=== PATIENT | male | born 1950 | race Caucasian/White ===

== ENCOUNTER 2017-07-11 15:00 | Outpatient (RCR) | payer MEDICARE, SELFPAY ==
[2017-06-11 00:25] VITALS: BP 116/60; PULSE 61; RESP 18; TEMP 36; BMI 32.7
[2017-06-20 15:16] VITALS: BP 142/79; PULSE 55; RESP 18; TEMP 36.6; BMI 32.7
--- NOTE | 2017-06-20 22:14 | PN.PCM_ITS ---
(1) Ulcer of right foot with fat layer exposed Status: Chronic Current Visit: Yes Code(s): L97.512 - Non-pressure chronic ulcer of other part of right foot with fat layer exposed (2) Chronic ulcer of left foot with fat layer exposed Status: Chronic Current Visit: Yes Code(s): L97.522 - Non-pressure chronic ulcer of other part of left foot with fat layer exposed (3) Lower extremity edema Status: Chronic Current Visit: Yes Code(s): R60.0 - Localized edema (4) Malnutrition Status: Chronic Current Visit: Yes Code(s): E46 - Unspecified protein- calorie malnutrition (5) Type 2 diabetes mellitus with diabetic polyneuropathy Status: Chronic Current Visit: Yes Code(s): E11.42 - Type 2 diabetes mellitus with diabetic polyneuropathy (6) Non compliance with medical treatment Status: Chronic Current Visit: Yes Code(s): Z91.19 - Patient's noncompliance with other medical treatment and regimen (7) Peripheral vascular disease Status: Chronic Current Visit: Yes Code(s): I73.9 - Peripheral vascular disease, unspecified Type of Wound Date of Service: 06/21/17 Chief Complaint: right foot wound. Left foot wound. right toe wound History of Wound: This 67-year-old male who was seen today for right and left foot ulceration that is chronic in nature. He denies fever, chill, nausea, vomiting, loss of appetite. He also had previous vascular surgery intervention with Dr. Redding on February 14, 2017 including angiogram of the left SFA with a stent to the proximal popliteal. He was able to reschedule his next follow-up for June 29, 2017. Additional previous surgical h/o: 03/01/16 wide spread debridement left foot with incision and drainage and fibular sesamoid excision. 03/15/16 delayed primary closure left foot Progress of Wound: Stable right. Improving left - Physical Exam Vital Signs Temp Pulse Resp BP 97.8 F 55 L 18 142/79 H 06/20/17 15:16 06/20/17 15:16 06/20/17 15:16 06/20/17 15:16 General: Alert, Oriented x3, Cooperative Extremities: No cyanosis, Capillary Refill Less than 3 Seconds, No Calf Tenderness - Negative Rashad and Tenorio sign bilateral, Diminished Peripheral Pulses, Edema - Minimal bilateral lower extremity Skin: Ulcer/ Wound - No purulence, no erythema, no streaking, no odor, no necrosis bilateral, - - The skin is hairless and atrophic bilateral Wound Measurements and Assessment - Nurse 1 - General Ulcer Measurement Start: 06/20/17 15:16 Freq: Status: Active Protocol: Activity Type Activity Date Activity User E-Sign Co-Sign Detail Recorded Client Recorded Date Recorded By Document 06/20/17 15:16 RB [id number] 06/20/17 15:25 RB 06/20/17 15:16 Wound Center Nurse 1 [Ulcer Assessment Protocol: .WD.LOC] 16-left medial transmet ulcer -Combined with other wound No -Current Size (cm) - Length 1.5 -Current Size (cm) - Width 0.1 -Current Size (cm) - Depth 0.3 -Total Square Cm 0.15 -Epithelialization Small 1-33% -Tunneling No -Undermining/Tunneling No -Circular Undermining No -Classification - Calvin Grading ( Grade 3 Diabetic Ulcer) -Exudate Amt Small (1-33%) -Exudate Type Serosanguineous -Wound Margin Distinct, Outline Attached -Granulation Amt Small (1-33%) -Granulation Quality [place] -Slough/Fibrin Yes -Necrosis Amt Medium (34-66%) -Necrotic Tissue Type Adherent Slough -Structure Exposed N/A -Texture (Maggy-wound Skin Appearance) Assessed Callus -Moisture (Maggy-wound Skin Appearance Assessed ) Dry/Scaly -Color (Maggy-wound Skin Appearance) Assessed -Temperature (Maggy-wound Skin No Abnormality Appearance) (Pt Warm) -Tenderness on Palpation (Maggy-wound No Skin Appearance) -Ulcer Cleansing Rinsed/ Irrigated with Saline -Foul Odor after Cleansing No -Anesthetic Used 5% Lidocaine Gel #17 right 3rd dorsal toe -Combined with other wound No -Current Size (cm) - Length 0.6 -Current Size (cm) - Width 0.8 -Current Size (cm) - Depth 0.1 -Total Square Cm 0.48 -Photo Taken No -Epithelialization Small 1-33% -Tunneling No -Undermining/Tunneling No -Circular Undermining No -Classification - Thickness Full Thickness without Exposed Support Structure -Exudate Amt Small (1-33%) -Exudate Type Serosanguineous -Wound Margin Distinct, Outline Attached -Granulation Amt Medium (34-66%) -Granulation Quality [place] -Slough/Fibrin Yes -Necrosis Amt Small (1-33%) -Necrotic Tissue Type Adherent Slough -Structure Exposed N/A -Texture (Maggy-wound Skin Appearance) Assessed -Moisture (Maggy-wound Skin Appearance Assessed ) -Color (Maggy-wound Skin Appearance) Assessed -Temperature (Maggy-wound Skin No Abnormality Appearance) (Pt Warm) -Tenderness on Palpation (Maggy-wound No Skin Appearance) -Ulcer Cleansing Rinsed/ Irrigated with Saline -Foul Odor after Cleansing No -Anesthetic Used 5% Lidocaine Gel #12 R 5th met head -Combined with other wound No -Current Size (cm) - Length 0.5 -Current Size (cm) - Width 1.5 -Current Size (cm) - Depth 0.4 -Total Square Cm 0.75 -Photo Taken No -Epithelialization Small 1-33% -Tunneling No -Undermining/Tunneling Yes -Undermining/Tunneling Starts (O' 12 clock) -Undermining/Tunneling Ends (O'clock) 6 -Maximum Distance (cm) 0.5 -Circular Undermining No -Classification - Calvin Grading ( Grade 2 Diabetic Ulcer) -Exudate Amt Small (1-33%) -Exudate Type Serosanguineous -Wound Margin Distinct, Outline Attached -Granulation Amt Large (67-100%) -Granulation Quality [place] -Slough/Fibrin Yes -Necrosis Amt Small (1-33%) -Necrotic Tissue Type Adherent Slough -Structure Exposed N/A -Texture (Maggy-wound Skin Appearance) Assessed -Moisture (Maggy-wound Skin Appearance Maceration ) Dry/Scaly -Color (Maggy-wound Skin Appearance) Assessed -Temperature (Maggy-wound Skin No Abnormality Appearance) (Pt Warm) -Tenderness on Palpation (Maggy-wound No Skin Appearance) -Ulcer Cleansing Rinsed/ Irrigated with Saline -Foul Odor after Cleansing No -Anesthetic Used 5% Lidocaine Gel [Edema Assessment] -Lower Limb Edema Present Yes -Right Calf (cm) 36.8 -Right Ankle (cm) 21.5 -Left Calf (cm) 36.5 -Left Ankle (cm) 20.9 WC - Nurse 2 - General Ulcer CM Notes Start: 06/20/17 15:16 Freq: Status: Active Protocol: Activity Type Activity Date Activity User E-Sign Co-Sign Detail Recorded Client Recorded Date Recorded By Document 06/20/17 15:36 JOE [id number] 06/20/17 15:39 JOE 06/20/17 15:36 Wound Center Nurse 2 [Procedure/Treatment] 16-left medial transmet ulcer -Time 15:37 -Correct Patient Yes -Correct Side, Site, Position Yes -Correct Procedure Yes -Procedure Performed Yes -Type of Procedure Debridement -Clinical Debridement Subcutaneous -Post Debridement Size (cm) - Length 1.5 -Post Debridement Size (cm) - Width 0.2 -Post Debridement Size (cm) - Depth 0.3 -Total Square Cm 0.30 -Wound/Ulcer Outcome Not Healed -Ulcer Cleansing Rinsed/ Irrigated with Saline -Foul Odor after Cleansing No -Bioengineered Tissue No -Cetacaine [place] No -Bleeding Controlled with Pressure -Treatment Response Procedure Tolerated Well #17 right 3rd dorsal toe -Time 15:37 -Correct Patient Yes -Correct Side, Site, Position Yes -Correct Procedure Yes -Procedure Performed Yes -Type of Procedure Debridement -Clinical Debridement Subcutaneous -Post Debridement Size (cm) - Length 0.7 -Post Debridement Size (cm) - Width 0.8 -Post Debridement Size (cm) - Depth 0.1 -Total Square Cm 0.56 -Wound/Ulcer Outcome Not Healed -Ulcer Cleansing Rinsed/ Irrigated with Saline -Foul Odor after Cleansing No -Bioengineered Tissue No -Cetacaine [place] No -Bleeding Controlled with NA Pressure -Treatment Response Procedure Tolerated Well #12 R 5th met head -Time 15:37 -Correct Patient Yes -Correct Side, Site, Position Yes -Correct Procedure Yes -Procedure Performed Yes -Type of Procedure Debridement -Clinical Debridement Subcutaneous -Post Debridement Size (cm) - Length 0.6 -Post Debridement Size (cm) - Width 1.6 -Post Debridement Size (cm) - Depth 0.4 -Total Square Cm 0.96 -Wound/Ulcer Outcome Not Healed -Ulcer Cleansing Rinsed/ Irrigated with Saline -Foul Odor after Cleansing No -Bioengineered Tissue No -Cetacaine [place] No -Bleeding Controlled with Pressure -Treatment Response Procedure Tolerated Well [See Physician Procedure note for Specifics] Pain Scale: 0-10 Numeric [Pain] -Is Patient Pain Free? Yes Musculoskeletal: No Tenderness to Palpation of Joints or Extremities, Muscle Wasting, - - Left transmetatarsal amputation. Compartments are soft bilateral lower extremities Neurological: - - Lack of epicritic sensation bilateral lower extremities to light touch Psych/Mental Status: Normal Affect, Appropriate Debridement Note Post-Debridement Measurements/Treatment WC - Nurse 2 - General Ulcer CM Notes Start: 06/20/17 15:16 Freq: Status: Active Protocol: Activity Type Activity Date Activity User E-Sign Co-Sign Detail Recorded Client Recorded Date Recorded By Document 06/20/17 15:36 JOE [id number] 06/20/17 15:39 JOE 06/20/17 15:36 Wound Center Nurse 2 16-left medial transmet ulcer -Time 15:37 -Correct Patient Yes -Correct Side, Site, Position Yes -Correct Procedure Yes -Procedure Performed Yes -Type of Procedure Debridement -Clinical Debridement Subcutaneous -Post Debridement Size (cm) - Length 1.5 -Post Debridement Size (cm) - Width 0.2 -Post Debridement Size (cm) - Depth 0.3 -Total Square Cm 0.30 -Wound/Ulcer Outcome Not Healed -Ulcer Cleansing Rinsed/ Irrigated with Saline -Foul Odor after Cleansing No -Bioengineered Tissue No -Cetacaine [place] No -Bleeding Controlled with Pressure -Treatment Response Procedure Tolerated Well #17 right 3rd dorsal toe -Time 15:37 -Correct Patient Yes -Correct Side, Site, Position Yes -Correct Procedure Yes -Procedure Performed Yes -Type of Procedure Debridement -Clinical Debridement Subcutaneous -Post Debridement Size (cm) - Length 0.7 -Post Debridement Size (cm) - Width 0.8 -Post Debridement Size (cm) - Depth 0.1 -Total Square Cm 0.56 -Wound/Ulcer Outcome Not Healed -Ulcer Cleansing Rinsed/ Irrigated with Saline -Foul Odor after Cleansing No -Bioengineered Tissue No -Cetacaine [place] No -Bleeding Controlled with NA Pressure -Treatment Response Procedure Tolerated Well #12 R 5th met head -Time 15:37 -Correct Patient Yes -Correct Side, Site, Position Yes -Correct Procedure Yes -Procedure Performed Yes -Type of Procedure Debridement -Clinical Debridement Subcutaneous -Post Debridement Size (cm) - Length 0.6 -Post Debridement Size (cm) - Width 1.6 -Post Debridement Size (cm) - Depth 0.4 -Total Square Cm 0.96 -Wound/Ulcer Outcome Not Healed -Ulcer Cleansing Rinsed/ Irrigated with Saline -Foul Odor after Cleansing No -Bioengineered Tissue No -Cetacaine [place] No -Bleeding Controlled with Pressure -Treatment Response Procedure Tolerated Well Pain Scale: 0-10 Numeric Is Patient Pain Free? Yes Wound debrided: Sub-fifth metatarsal head Laterality: Right Wound Grade/Stage: Grade 3 Type of Debridement: Excisional debridement Anesthesia Used: 5% Lidocaine Gel Depth: in the subcutaneous layer Percentage of wound debrided: 100 Instrument Used: #15 blade Tissue Removed: Fibrous, devitalized subcutaneous, biofilm, slough Severity: Fat Layer Exposed Amount of bleeding with debridement: Mild Bleeding Controlled with: Pressure Patient tolerated procedure well - Additional Wound Wound debrided: Plantar foot Laterality: Left Wound Grade/Stage: Grade 1 Type of Debridement: Excisional debridement Anesthesia Used: 5% Lidocaine Gel Depth: in the subcutaneous layer Percentage of wound debrided: 100 Instrument Used: #15 blade Tissue Removed: Fibrous, devitalized subcutaneous, biofilm, slough Severity: Fat Layer Exposed Amount of bleeding with debridement: Mild Bleeding Controlled with: Pressure Patient tolerated procedure: Patient tolerated procedure well - Additional Wound Wound debrided: fourth dorsal toe Laterality: Right Wound Grade/Stage: Grade 1 Type of Debridement: Excisional debridement Anesthesia Used: 5% Lidocaine Gel Depth: in the subcutaneous layer Percentage of wound debrided: 100 Instrument Used: #15 blade Tissue Removed: Fibrous, devitalized subcutaneous, biofilm, slough Severity: Fat Layer Exposed Amount of bleeding with debridement: Mild Bleeding Controlled with: Pressure Patient tolerated procedure: Patient tolerated procedure well Assessment/Plan Active Problems Lower extremity edema (Chronic) Malnutrition (Chronic) Chronic ulcer of left foot with fat layer exposed (Chronic) Ulcer of right foot with fat layer exposed (Chronic) Type 2 diabetes mellitus with diabetic polyneuropathy (Chronic) Non compliance with medical treatment (Chronic) Peripheral vascular disease (Chronic) Assessment: diabetic foot ulcer right sub 5th metatarsal that is stable but with delayed healing apparent, no infection. Status post left transmetatarsal amputation, grade 1. Dorsal right fourth toe ulcer, grade 1. peripheral vascular disease with recent intervention. diabetes with neuropathy. malnutrition. foot deformities: hammer toe right foot and equinus. non compliance history Plan: Discussed case and plan. He continues on a complex wound care plan due to challenges with compliance. He understands he is at risk for limb loss. I performed debridement as noted above including subcutaneous at the aformentioned different multiple wound sites and including the subcutaneous tissue on the right sub 5th metatarsal head, left foot and new right toe site. Bonnie was applied; to change daily. Home health will be reactivated. . To offload: continue heel weight bear with offloading surgical shoes right and left with heel WB to the left for transfers only. To use walker and wheelchair and home office chair. Additional offloading felt was applied to the right surgical shoe again today. This will be updated periodically as needed. To use extreme caution without her traveling outside to avoid frostbite. To optimize healing with balanced diet and proper glycemic control. To continue Glucerna. His non invasive vascular studies were previously reviewed and he had angio with stent to left lower extremity with Dr. Redding. To follow up as advised. He has had difficulty scheduling this. He is currently scheduled for June 29. He was reassured there are no acute signs of infection today. I am concerned of his delayed healing and that he does not have adequate perfusion and his compliance is affecting his ability to heal in an ideal manner. Continue compression dressings and elevation. Tubigrip applied. Return to clinic in 1 week or call immediately if worsening signs of infection signs are noted.
[2017-07-04 14:53] VITALS: BP 129/65; PULSE 55; RESP 18; TEMP 36.4; BMI 32.7
--- NOTE | 2017-07-04 23:31 | PN.PCM_ITS ---
(1) Ulcer of right foot with fat layer exposed Status: Chronic Code(s): L97.512 - Non-pressure chronic ulcer of other part of right foot with fat layer exposed (2) Chronic ulcer of left foot with fat layer exposed Status: Chronic Code(s): L97.522 - Non-pressure chronic ulcer of other part of left foot with fat layer exposed (3) Lower extremity edema Status: Chronic Code(s): R60.0 - Localized edema (4) Malnutrition Status: Chronic Code(s): E46 - Unspecified protein-calorie malnutrition (5) Type 2 diabetes mellitus with diabetic polyneuropathy Status: Chronic Code(s): E11.42 - Type 2 diabetes mellitus with diabetic polyneuropathy (6) Non compliance with medical treatment Status: Chronic Code(s): Z91.19 - Patient's noncompliance with other medical treatment and regimen (7) Peripheral vascular disease Status: Chronic Code(s): I73.9 - Peripheral vascular disease, unspecified Type of Wound Date of Service: 07/07/17 Chief Complaint: right foot wound. Left foot wound. right toe wound History of Wound: This 67-year-old male who was seen today for right and left foot ulceration that is chronic in nature. He denies fever, chill, nausea, vomiting, loss of appetite. He also had previous vascular surgery intervention with Dr. Redding on February 14, 2017 including angiogram of the left SFA with a stent to the proximal popliteal. He did recently follow up with Dr. Redding as advised. Additional previous surgical h/o: 03/01/16 wide spread debridement left foot with incision and drainage and fibular sesamoid excision. 03/15/16 delayed primary closure left foot Progress of Wound: stable - Physical Exam Vital Signs Temp Pulse Resp BP 97.5 F L 55 L 18 129/65 H 07/04/17 14:53 07/04/17 14:53 07/04/17 14:53 07/04/17 14:53 General: Alert, Oriented x3, Cooperative Extremities: No cyanosis, Capillary Refill Less than 3 Seconds, No Calf Tenderness, Diminished Peripheral Pulses, Edema Skin: Ulcer/ Wound - No purulence, no erythema, no infection, no streaking bilateral, - - Skin atrophic Wound Measurements and Assessment WC - Nurse 1 - General Ulcer Measurement Start: 06/20/17 15:16 Freq: Status: Active Protocol: Activity Type Activity Date Activity User E-Sign Co-Sign Detail Recorded Client Recorded Date Recorded By Document 07/04/17 14:53 DL [id number] 07/04/17 15:08 DL 07/04/17 14:53 Wound Center Nurse 1 [Ulcer Assessment Protocol: WC.WD.LOC] 16-left medial transmet ulcer -Current Size (cm) - Length 0.6 -Current Size (cm) - Width 0.2 -Current Size (cm) - Depth 0.2 -Total Square Cm 0.12 -Photo Taken No -Undermining/Tunneling Starts (O' 12 clock) -Undermining/Tunneling Ends (O'clock) 6 -Maximum Distance (cm) 0.2 -Exudate Amt None Present (0 %) -Wound Margin Thickened -Granulation Amt Small (1-33%) -Granulation Quality [place] -Necrosis Amt Small (1-33%) -Necrotic Tissue Type Adherent Slough -Texture (Maggy-wound Skin Appearance) Scarring -Moisture (Maggy-wound Skin Appearance Dry/Scaly ) -Color (Maggy-wound Skin Appearance) No Abnormality -Temperature (Maggy-wound Skin No Abnormality Appearance) (Pt Warm) -Ulcer Cleansing Rinsed/ Irrigated with Saline -Foul Odor after Cleansing No -Anesthetic Used 4% Lidocaine Solution #17 right 3rd dorsal toe -Current Size (cm) - Length 0.1 -Current Size (cm) - Width 0.1 -Current Size (cm) - Depth 0.1 -Total Square Cm 0.01 -Photo Taken No -Exudate Amt None Present (0 %) -Wound Margin Flat & Intact -Granulation Amt None Present (0 %) -Necrosis Amt Large (67-100%) -Necrotic Tissue Type Adherent Slough -Structure Exposed N/A -Texture (Maggy-wound Skin Appearance) Scarring -Moisture (Maggy-wound Skin Appearance Dry/Scaly ) -Color (Maggy-wound Skin Appearance) No Abnormality -Temperature (Maggy-wound Skin No Abnormality Appearance) (Pt Warm) -Ulcer Cleansing Rinsed/ Irrigated with Saline -Foul Odor after Cleansing No -Anesthetic Used 4% Lidocaine Solution #12 R 5th met head -Current Size (cm) - Length 0.8 -Current Size (cm) - Width 1.8 -Current Size (cm) - Depth 0.4 -Total Square Cm 1.44 -Photo Taken No -Undermining/Tunneling Starts (O' 9 clock) -Undermining/Tunneling Ends (O'clock) 3 -Maximum Distance (cm) 0.2 -Exudate Amt Small (1-33%) -Exudate Type Serosanguineous -Wound Margin Thickened -Granulation Amt Medium (34-66%) -Granulation Quality [place] -Necrosis Amt Medium (34-66%) -Necrotic Tissue Type Adherent Slough -Structure Exposed N/A -Texture (Maggy-wound Skin Appearance) Callus -Moisture (Maggy-wound Skin Appearance Dry/Scaly ) -Color (Maggy-wound Skin Appearance) No Abnormality -Temperature (Maggy-wound Skin No Abnormality Appearance) (Pt Warm) -Ulcer Cleansing Rinsed/ Irrigated with Saline -Foul Odor after Cleansing No -Anesthetic Used 4% Lidocaine Solution [Edema Assessment] -Right Calf (cm) 34.5 -Right Ankle (cm) 20.2 -Left Calf (cm) 33.7 -Left Ankle (cm) 20 WC - Nurse 2 - General Ulcer CM Notes Start: 06/20/17 15:16 Freq: Status: Active Protocol: Activity Type Activity Date Activity User E-Sign Co-Sign Detail Recorded Client Recorded Date Recorded By Document 07/04/17 15:22 [id number] 07/04/17 15:32 07/04/17 15:22 Wound Center Nurse 2 [Procedure/Treatment] 16-left medial transmet ulcer -Time 15:30 -Correct Patient Yes -Correct Side, Site, Position Yes -Correct Procedure Yes -Procedure Performed Yes -Type of Procedure Debridement -Clinical Debridement Subcutaneous -Post Debridement Size (cm) - Length 0.7 -Post Debridement Size (cm) - Width 0.3 -Post Debridement Size (cm) - Depth 0.2 -Total Square Cm 0.21 -Wound/Ulcer Outcome Not Healed -Ulcer Cleansing Rinsed/ Irrigated with Saline -Foul Odor after Cleansing No -Bioengineered Tissue No -Cetacaine [place] No -Topical Lidocaine (%) 5 -Bleeding Controlled with Pressure -Treatment Response Procedure Tolerated Well #17 right 3rd dorsal toe -Time 15:31 -Correct Patient Yes -Correct Side, Site, Position Yes -Correct Procedure Yes -Procedure Performed Yes -Post Debridement Size (cm) - Length 0 -Post Debridement Size (cm) - Width 0 -Post Debridement Size (cm) - Depth 0 -Total Square Cm 0 -Wound/Ulcer Outcome Healed- Epithelialized -Ulcer Cleansing Rinsed/ Irrigated with Saline -Foul Odor after Cleansing No -Bioengineered Tissue No -Cetacaine [place] No -Topical Lidocaine (%) 5 -Bleeding Controlled with NA -Treatment Response Procedure Tolerated Well #12 R 5th met head -Time 15:31 -Correct Patient Yes -Correct Side, Site, Position Yes -Correct Procedure Yes -Procedure Performed Yes -Type of Procedure Debridement -Clinical Debridement Subcutaneous -Post Debridement Size (cm) - Length 0.9 -Post Debridement Size (cm) - Width 1.9 -Post Debridement Size (cm) - Depth 0.4 -Total Square Cm 1.71 -Wound/Ulcer Outcome Not Healed -Ulcer Cleansing Rinsed/ Irrigated with Saline -Foul Odor after Cleansing No -Bioengineered Tissue No -Cetacaine [place] No -Topical Lidocaine (%) 5 -Bleeding Controlled with Pressure -Treatment Response Procedure Tolerated Well [See Physician Procedure note for Specifics] Pain Scale: 0-10 Numeric [Pain] -Is Patient Pain Free? Yes Musculoskeletal: No Tenderness to Palpation of Joints or Extremities, Muscle Wasting Neurological: - - Lack of sensation via light touch bilateral Psych/Mental Status: Normal Affect, Appropriate Debridement Note Post-Debridement Measurements/Treatment WC - Nurse 2 - General Ulcer CM Notes Start: 06/20/17 15:16 Freq: Status: Active Protocol: Activity Type Activity Date Activity User E-Sign Co-Sign Detail Recorded Client Recorded Date Recorded By Document 06/20/17 15:36 [id number] 06/20/17 15:39 Document 07/04/17 15:22 [id number] 07/04/17 15:32 06/20/17 07/04/17 15:36 15:22 Wound Center Nurse 2 16-left medial transmet ulcer -Time 15:37 15:30 -Correct Patient Yes Yes -Correct Side, Site, Position Yes Yes -Correct Procedure Yes Yes -Procedure Performed Yes Yes -Type of Procedure Debridement Debridement -Clinical Debridement Subcutaneous Subcutaneous -Post Debridement Size (cm) - Length 1.5 0.7 -Post Debridement Size (cm) - Width 0.2 0.3 -Post Debridement Size (cm) - Depth 0.3 0.2 -Total Square Cm 0.30 0.21 -Wound/Ulcer Outcome Not Healed Not Healed -Ulcer Cleansing Rinsed/ Rinsed/ Irrigated with Irrigated with Saline Saline -Foul Odor after Cleansing No No -Bioengineered Tissue No No -Cetacaine [place] No No -Topical Lidocaine (%) 5 -Bleeding Controlled with Pressure Pressure -Treatment Response Procedure Procedure Tolerated Well Tolerated Well #17 right 3rd dorsal toe -Time 15:37 15:31 -Correct Patient Yes Yes -Correct Side, Site, Position Yes Yes -Correct Procedure Yes Yes -Procedure Performed Yes Yes -Type of Procedure Debridement -Clinical Debridement Subcutaneous -Post Debridement Size (cm) - Length 0.7 0 -Post Debridement Size (cm) - Width 0.8 0 -Post Debridement Size (cm) - Depth 0.1 0 -Total Square Cm 0.56 0 -Wound/Ulcer Outcome Not Healed Healed- Epithelialized -Ulcer Cleansing Rinsed/ Rinsed/ Irrigated with Irrigated with Saline Saline -Foul Odor after Cleansing No No -Bioengineered Tissue No No -Cetacaine [place] No No -Topical Lidocaine (%) 5 -Bleeding Controlled with NA NA Pressure -Treatment Response Procedure Procedure Tolerated Well Tolerated Well #12 R 5th met head -Time 15:37 15:31 -Correct Patient Yes Yes -Correct Side, Site, Position Yes Yes -Correct Procedure Yes Yes -Procedure Performed Yes Yes -Type of Procedure Debridement Debridement -Clinical Debridement Subcutaneous Subcutaneous -Post Debridement Size (cm) - Length 0.6 0.9 -Post Debridement Size (cm) - Width 1.6 1.9 -Post Debridement Size (cm) - Depth 0.4 0.4 -Total Square Cm 0.96 1.71 -Wound/Ulcer Outcome Not Healed Not Healed -Ulcer Cleansing Rinsed/ Rinsed/ Irrigated with Irrigated with Saline Saline -Foul Odor after Cleansing No No -Bioengineered Tissue No No -Cetacaine [place] No No -Topical Lidocaine (%) 5 -Bleeding Controlled with Pressure Pressure -Treatment Response Procedure Procedure Tolerated Well Tolerated Well Pain Scale: 0-10 Numeric Is Patient Pain Free? Yes Yes Wound debrided: Septic metatarsal head Laterality: Right Type of Debridement: Excisional debridement Anesthesia Used: 4% Lidocaine Solution Depth: in the subcutaneous layer Percentage of wound debrided: 100 Instrument Used: #15 blade Tissue Removed: Fibrous, devitalized subcutaneous, biofilm, slough Severity: Fat Layer Exposed Amount of bleeding with debridement: Mild Bleeding Controlled with: Pressure Patient tolerated procedure well - Additional Wound Wound debrided: Plantar foot Laterality: Left Wound Grade/Stage: Grade 1 Type of Debridement: Excisional debridement Anesthesia Used: 4% Lidocaine Solution Depth: in the subcutaneous layer Percentage of wound debrided: 100 Instrument Used: #15 blade Tissue Removed: Fibrous, devitalized subcutaneous, biofilm, slough Severity: Fat Layer Exposed Amount of bleeding with debridement: Mild Bleeding Controlled with: Pressure Patient tolerated procedure: Patient tolerated procedure well Assessment/Plan Assessment: diabetic foot ulcer right sub 5th metatarsal that is stable but with delayed healing apparent, no infection. Status post left transmetatarsal amputation, grade 1. Dorsal right fourth toe ulcer, grade 1. peripheral vascular disease with recent intervention. diabetes with neuropathy. malnutrition. foot deformities: hammer toe right foot and equinus. non compliance history Plan: Discussed case and plan. He continues on a complex wound care plan due to challenges with compliance. He understands he is at risk for limb loss. I performed debridement as noted above including subcutaneous at the aformentioned different multiple wound sites and including the subcutaneous tissue on the right sub 5th metatarsal head, left foot and new right toe site. Bonnie was applied; to change daily. Home health will be reactivated. . To offload: continue heel weight bear with offloading surgical shoes right and left with heel WB to the left for transfers only. To use walker and wheelchair and home office chair. Additional offloading felt was applied to the right surgical shoe again today. This will be updated periodically as needed. To use extreme caution without her traveling outside to avoid frostbite. To optimize healing with balanced diet and proper glycemic control. To continue Glucerna. His non invasive vascular studies were previously reviewed and he had angio with stent to left lower extremity with Dr. Redding. To follow up as advised. He did recently follow-up in the notes will be requested. It is noted he had a previous left procedures performed by Dr. Redding. He has upcoming Doppler and ABIs planned. He was reassured there are no acute signs of infection today. I am concerned of his delayed healing and that he does not have adequate perfusion and his compliance is affecting his ability to heal in an ideal manner. Continue compression dressings and elevation. Tubigrip applied. Return to clinic in 1 week or call immediately if worsening signs of infection signs are noted.
[2017-07-11 14:42] VITALS: BP 120/70; PULSE 62; RESP 18; TEMP 36; BMI 32.7
--- NOTE | 2017-07-11 15:54 | PCM.WC.PN ---
(1) Ulcer of right foot with fat layer exposed Status: Chronic Current Visit: Yes Code(s): L97.512 - Non-pressure chronic ulcer of other part of right foot with fat layer exposed (2) Chronic ulcer of left foot with fat layer exposed Status: Chronic Current Visit: Yes Code(s): L97.522 - Non-pressure chronic ulcer of other part of left foot with fat layer exposed (3) Lower extremity edema Status: Chronic Current Visit: Yes Code(s): R60.0 - Localized edema (4) Malnutrition Status: Chronic Current Visit: Yes Code(s): E46 - Unspecified protein-calorie malnutrition (5) Type 2 diabetes mellitus with diabetic polyneuropathy Status: Chronic Current Visit: Yes Code(s): E11.42 - Type 2 diabetes mellitus with diabetic polyneuropathy (6) Non compliance with medical treatment Status: Chronic Current Visit: Yes Code(s): Z91.19 - Patient's noncompliance with other medical treatment and regimen (7) Peripheral vascular disease Status: Chronic Current Visit: Yes Code(s): I73.9 - Peripheral vascular disease, unspecified Type of Wound Date of Service: 07/11/17 Chief Complaint: right foot wound. Left foot wound History of Wound: This 67-year-old male who was seen today for right and left foot ulceration that is chronic in nature. He denies fever, chill, nausea, vomiting, loss of appetite. He also had previous vascular surgery intervention with Dr. Redding on February 14, 2017 including angiogram of the left SFA with a stent to the proximal popliteal. He did recently follow up with Dr. Redding as advised. He has some upcoming scheduled tests performed and then intervention decision will be made within the next month. He recently had his Lasix increased and has decreased leg swelling. Additional previous surgical h/o: 03/01/16 wide spread debridement left foot with incision and drainage and fibular sesamoid excision. 03/15/16 delayed primary closure left foot Progress of Wound: stable - Physical Exam Vital Signs Temp Pulse Resp BP 96.8 F L 62 18 120/70 07/11/17 14:42 07/11/17 14:42 07/11/17 14:42 07/11/17 14:42 General: Alert, Oriented x3, Cooperative Extremities: No cyanosis, Capillary Refill Less than 3 Seconds, No Calf Tenderness, Diminished Peripheral Pulses, Edema - Trace bilateral lower extremities Skin: Ulcer/ Wound - No purulence, no erythema, no streaking, no odor, no infection, no vinita necrosis, no exposed bone or capsule tissue bilateral feet, - - atrophic skin Wound Measurements and Assessment - Nurse 1 - General Ulcer Measurement Start: 06/20/17 15:16 Freq: Status: Active Protocol: Activity Type Activity Date Activity User E-Sign Co-Sign Detail Recorded Client Recorded Date Recorded By Document 07/11/17 14:42 MW [id number] 07/11/17 15:01 MW 07/11/17 14:42 Wound Center Nurse 1 [Ulcer Assessment Protocol: WC.WD.LOC] 16-left medial transmet ulcer -Combined with other wound No -Current Size (cm) - Length 0.4 -Current Size (cm) - Width 0.4 -Current Size (cm) - Depth 0.2 -Total Square Cm 0.16 -Date of Last Picture (Recall this 07/11/17 field) -Photo Taken Yes -Epithelialization None Present -Tunneling No -Undermining/Tunneling No -Circular Undermining No -Exudate Amt Small (1-33%) -Exudate Type Serosanguineous -Wound Margin Flat & Intact -Granulation Amt Small (1-33%) -Granulation Quality Jo[place] -Slough/Fibrin Yes -Necrosis Amt Medium (34-66%) -Necrotic Tissue Type Adherent Slough -Structure Exposed N/A -Texture (Maggy-wound Skin Appearance) Assessed Callus Scarring -Moisture (Maggy-wound Skin Appearance Assessed ) Dry/Scaly -Color (Maggy-wound Skin Appearance) No Abnormality Assessed -Temperature (Maggy-wound Skin No Abnormality Appearance) (Pt Warm) -Tenderness on Palpation (Maggy-wound No Skin Appearance) -Ulcer Cleansing soap and water -Foul Odor after Cleansing No -Anesthetic Used 4% Lidocaine Solution #12 R 5th met head -Combined with other wound No -Current Size (cm) - Length 0.7 -Current Size (cm) - Width 1.3 -Current Size (cm) - Depth 0.2 -Total Square Cm 0.91 -Date of Last Picture (Recall this 07/11/17 field) -Photo Taken Yes -Epithelialization None Present -Tunneling No -Undermining/Tunneling No -Circular Undermining No -Exudate Amt Small (1-33%) -Exudate Type Serosanguineous -Wound Margin Flat & Intact -Granulation Amt Small (1-33%) -Granulation Quality [place] -Necrosis Amt Medium (34-66%) -Necrotic Tissue Type Adherent Slough -Structure Exposed N/A -Texture (Maggy-wound Skin Appearance) Assessed Callus -Moisture (Maggy-wound Skin Appearance Assessed ) Dry/Scaly -Color (Maggy-wound Skin Appearance) No Abnormality Assessed -Temperature (Maggy-wound Skin No Abnormality Appearance) (Pt Warm) -Tenderness on Palpation (Maggy-wound No Skin Appearance) -Ulcer Cleansing soap and water -Foul Odor after Cleansing No -Anesthetic Used 4% Lidocaine Solution [Edema Assessment] -Lower Limb Edema Present Yes -Right Calf (cm) 36.0 -Right Ankle (cm) 20.1 -Left Calf (cm) 34.6 -Left Ankle (cm) 20.2 WC - Nurse 2 - General Ulcer CM Notes Start: 06/20/17 15:16 Freq: Status: Active Protocol: Activity Type Activity Date Activity User E-Sign Co-Sign Detail Recorded Client Recorded Date Recorded By Document 07/11/17 15:25 [id number] 07/11/17 15:27 JOE 07/11/17 15:25 Wound Center Nurse 2 [Procedure/Treatment] 16-left medial transmet ulcer -Time 15:26 -Correct Patient Yes -Correct Side, Site, Position Yes -Correct Procedure Yes -Procedure Performed Yes -Type of Procedure Debridement -Clinical Debridement Subcutaneous -Post Debridement Size (cm) - Length 0.5 -Post Debridement Size (cm) - Width 0.5 -Post Debridement Size (cm) - Depth 0.2 -Total Square Cm 0.25 -Wound/Ulcer Outcome Not Healed -Ulcer Cleansing Rinsed/ Irrigated with Saline -Foul Odor after Cleansing No -Bioengineered Tissue No -Cetacaine [place] No -Bleeding Controlled with Pressure -Treatment Response Procedure Tolerated Well #12 R 5th met head -Time 15:26 -Correct Patient Yes -Correct Side, Site, Position Yes -Correct Procedure Yes -Procedure Performed Yes -Type of Procedure Debridement -Clinical Debridement Subcutaneous -Post Debridement Size (cm) - Length 0.8 -Post Debridement Size (cm) - Width 1.4 -Post Debridement Size (cm) - Depth 0.2 -Total Square Cm 1.12 -Wound/Ulcer Outcome Not Healed -Ulcer Cleansing Rinsed/ Irrigated with Saline -Foul Odor after Cleansing No -Bioengineered Tissue No -Cetacaine [place] No -Bleeding Controlled with Pressure -Treatment Response Procedure Tolerated Well [See Physician Procedure note for Specifics] Pain Scale: 0-10 Numeric [Pain] -Is Patient Pain Free? Yes Musculoskeletal: No Tenderness to Palpation of Joints or Extremities, Muscle Wasting Neurological: - - Lack of epicritic sensation light touch bilateral lower extremities Psych/Mental Status: Normal Affect, Appropriate Debridement Note Post-Debridement Measurements/Treatment WC - Nurse 2 - General Ulcer CM Notes Start: 06/20/17 15:16 Freq: Status: Active Protocol: Activity Type Activity Date Activity User E-Sign Co-Sign Detail Recorded Client Recorded Date Recorded By Document 06/20/17 15:36 [id number] 06/20/17 15:39 Document 07/04/17 15:22 TM [id number] 07/04/17 15:32 Document 07/11/17 15:25 [id number] 07/11/17 15:27 06/20/17 07/04/17 07/11/17 15:36 15:22 15:25 Wound Center Nurse 2 16-left medial transmet ulcer -Time 15:37 15:30 15:26 -Correct Patient Yes Yes Yes -Correct Side, Site, Position Yes Yes Yes -Correct Procedure Yes Yes Yes -Procedure Performed Yes Yes Yes -Type of Procedure Debridement Debridement Debridement -Clinical Debridement Subcutaneous Subcutaneous Subcutaneous -Post Debridement Size (cm) - Length 1.5 0.7 0.5 -Post Debridement Size (cm) - Width 0.2 0.3 0.5 -Post Debridement Size (cm) - Depth 0.3 0.2 0.2 -Total Square Cm 0.30 0.21 0.25 -Wound/Ulcer Outcome Not Healed Not Healed Not Healed -Ulcer Cleansing Rinsed/ Rinsed/ Rinsed/ Irrigated with Irrigated with Irrigated with Saline Saline Saline -Foul Odor after Cleansing No No No -Bioengineered Tissue No No No -Cetacaine [place] No No No -Topical Lidocaine (%) 5 -Bleeding Controlled with Pressure Pressure Pressure -Treatment Response Procedure Procedure Procedure Tolerated Well Tolerated Well Tolerated Well #17 right 3rd dorsal toe -Time 15:37 15:31 -Correct Patient Yes Yes -Correct Side, Site, Position Yes Yes -Correct Procedure Yes Yes -Procedure Performed Yes Yes -Type of Procedure Debridement -Clinical Debridement Subcutaneous -Post Debridement Size (cm) - Length 0.7 0 -Post Debridement Size (cm) - Width 0.8 0 -Post Debridement Size (cm) - Depth 0.1 0 -Total Square Cm 0.56 0 -Wound/Ulcer Outcome Not Healed Healed- Epithelialized -Ulcer Cleansing Rinsed/ Rinsed/ Irrigated with Irrigated with Saline Saline -Foul Odor after Cleansing No No -Bioengineered Tissue No No -Cetacaine [place]coe No No -Topical Lidocaine (%) 5 -Bleeding Controlled with NA NA Pressure -Treatment Response Procedure Procedure Tolerated Well Tolerated Well #12 R 5th met head -Time 15:37 15:31 15:26 -Correct Patient Yes Yes Yes -Correct Side, Site, Position Yes Yes Yes -Correct Procedure Yes Yes Yes -Procedure Performed Yes Yes Yes -Type of Procedure Debridement Debridement Debridement -Clinical Debridement Subcutaneous Subcutaneous Subcutaneous -Post Debridement Size (cm) - Length 0.6 0.9 0.8 -Post Debridement Size (cm) - Width 1.6 1.9 1.4 -Post Debridement Size (cm) - Depth 0.4 0.4 0.2 -Total Square Cm 0.96 1.71 1.12 -Wound/Ulcer Outcome Not Healed Not Healed Not Healed -Ulcer Cleansing Rinsed/ Rinsed/ Rinsed/ Irrigated with Irrigated with Irrigated with Saline Saline Saline -Foul Odor after Cleansing No No No -Bioengineered Tissue No No No -Cetacaine [place] No No No -Topical Lidocaine (%) 5 -Bleeding Controlled with Pressure Pressure Pressure -Treatment Response Procedure Procedure Procedure Tolerated Well Tolerated Well Tolerated Well Pain Scale: 0-10 Numeric Is Patient Pain Free? Yes Yes Yes Wound debrided: Sub-fifth metatarsal head Laterality: Right Wound Grade/Stage: 1 grade Type of Debridement: Excisional debridement Anesthesia Used: 4% Lidocaine Solution Depth: in the subcutaneous layer Percentage of wound debrided: 100 Instrument Used: #15 blade Tissue Removed: Fibrous, devitalized subcutaneous, biofilm, slough Severity: Fat Layer Exposed Amount of bleeding with debridement: Mild Bleeding Controlled with: Pressure Patient tolerated procedure well - Additional Wound Wound debrided: plantar foot Laterality: Left Wound Grade/Stage: Grade 1 Type of Debridement: Excisional debridement Anesthesia Used: 4% Lidocaine Solution Depth: in the subcutaneous layer Percentage of wound debrided: 100 Instrument Used: #15 blade Tissue Removed: Fibrous, devitalized subcutaneous, biofilm, slough Severity: Fat Layer Exposed Amount of bleeding with debridement: Mild Bleeding Controlled with: Pressure Patient tolerated procedure: Patient tolerated procedure well Assessment/Plan Active Problems Lower extremity edema (Chronic) Malnutrition (Chronic) Chronic ulcer of left foot with fat layer exposed (Chronic) Ulcer of right foot with fat layer exposed (Chronic) Type 2 diabetes mellitus with diabetic polyneuropathy (Chronic) Non compliance with medical treatment (Chronic) Peripheral vascular disease (Chronic) Assessment: diabetic foot ulcer right sub 5th metatarsal that is stable but with delayed healing apparent, no infection. Status post left transmetatarsal amputation, grade 1. Dorsal right fourth toe ulcer, grade 1. peripheral vascular disease with recent intervention. diabetes with neuropathy. malnutrition. foot deformities: hammer toe right foot and equinus. non compliance history Plan: Discussed case and plan. He continues on a complex wound care plan due to challenges with compliance. He understands he is at risk for limb loss. I performed debridement as noted above including subcutaneous at the aformentioned different multiple wound sites and including the subcutaneous tissue on the right sub 5th metatarsal head, left foot and new right toe site. Bonnie was applied; to change daily. Home health will be reactivated. . To offload: continue heel weight bear with offloading surgical shoes right and left with heel WB to the left for transfers only. To use walker and wheelchair and home office chair. To optimize healing with balanced diet and proper glycemic control. To continue Glucerna. His non invasive vascular studies were previously reviewed and he had angio with stent to left lower extremity with Dr. Redding. To follow up as advised. He did recently follow-up in the notes will be requested. It is noted he had a previous left procedures performed by Dr. Redding. He has upcoming Doppler / ABIs planned and upcoming potential intervention. Pain. He was reassured there are no acute signs of infection today. I am concerned of his delayed healing and that he does not have adequate perfusion and his compliance is affecting his ability to heal in an ideal manner. Continue compression dressings and elevation. Tubigrip applied. Return to clinic in 1 week or call immediately if worsening signs of infection signs are noted.
== END 2017-07-11 23:59 ==
LOC: WC 15:00
PROVIDERS: Family Provider Family Medicine Geriatric Medicine; PCP Family Medicine Geriatric Medicine; Visit Provider Podiatrist
DX: E11.621 Type 2 diabetes mellitus with foot ulcer (principal); E11.42 Type 2 diabetes mellitus with diabetic polyneuropathy; Z91.19 Patient's noncompliance with other medical treatment and regimen; L97.522 Non-pressure chronic ulcer of other part of left foot with fat layer exposed; L97.512 Non-pressure chronic ulcer of other part of right foot with fat layer exposed; E11.51 Type 2 diabetes mellitus with diabetic peripheral angiopathy without gangrene; R60.0 Localized edema; M20.41 Other hammer toe(s) (acquired), right foot; Z89.432 Acquired absence of left foot
CPT/HCPCS: 11042

== ENCOUNTER → 2017-07-12 12:53 | Outpatient (CLI) | payer MEDICARE, SELFPAY ==
[2017-07-11 14:42] VITALS: BP 120/70
--- NOTE | 2017-07-12 12:57 | ADU_ITS ---
Reason For Study: Atherosclerosis with ulcers Right Velocities Left Velocities Ext. Iliac Artery, dist = 122.0 cm./sec. Ext Iliac Artery, dist = 115.0 cm./sec. Common Femoral Artery, prox = 123.0 cm./sec. Common Femoral Artery, prox = 142.0 cm./sec. Supf Femoral Artery, prox = 88.0 cm./sec. Supf. Femoral Artery, prox = 458.0 cm./sec. Supf Femoral Artery, mid = 95.9 cm./sec. Supf. Femoral Artery, mid = 57.5 cm./sec. Supf Femoral Artery, dist. = 90.9 cm./sec. Supf. Femoral Artery, dist = 29.9 cm./sec. Profunda Femoral Artery = 108.0 cm./sec. Profunda Femoral Artery = 172.0 cm./sec. Popliteal Artery, prox. = 84.9 cm./sec. Popliteal Artery, proximal, = 28.6 cm./sec. Popliteal Artery, mid = 66.0 cm./sec. Popliteal Artery, mid = 69.1 cm./sec. Popliteal Artery, dist = 62.9 cm./sec. Popliteal Artery, distal = 51.1 cm./sec. Post. Tibial Artery, prox = 21.4 cm./sec. Post Tibial Artery, mid = 18.1 cm./sec. Post. Tibial Artery, mid = 33.3 cm./sec. Post Tibial Artery, dist. = 23.0 cm./sec. Post. Tibial Artery, dist = 37.9 cm./sec. Ant.Tibial Artery, prox = 110.0 cm./sec. Peroneal Artery, mid = 19.5 cm./sec. Ant Tibial Artery, mid = 31.8 cm./sec. Peroneal Artery,dist = 12.1 cm./sec. Ant. Tibial Artery, distal = 31.7 cm./sec. Ant. Tibial Artery, prox = 27.9 cm./sec. Ant. Tibial Artery, mid = 42.4 cm./sec. Ant. Tibial Artery, dist = 37.6 cm./sec. Procedure Flow not demonstrated in RT prox PER A and LT Prox SCALDER and PER V. Interpretation Summary 1. Right leg with proximal peroneal occluded. Otherwise no significant stenosis seen. There is triphasic flow proximal and biphasic distal SFA through to foot. 2. 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 Ordering Physician: Florencio Redding Referring Physician: Florencio Redding Performed By: Claudia Rosa RVT
--- NOTE | 2017-07-18 12:10 | LEAS ---
Arterial Study - Arterial Study Arterial Study: Date of scan 07/12/[address] Redding Indication patient with history of ulcers Interpretation: Right lower extremity with duplex showing monophasic flow at the ankle JEANNETTE of 1.19 the posterior tibial 1.1 to the dorsalis pedis. Digital brachial index is 0.33 Left lower extremity also showing monophasic decreased waveform at the ankle with an JEANNETTE 0.59 of the posterior tibial 0.3 to the dorsalis pedis. Next Interpretation: 1. Right leg shows normal JEANNETTE 1.19 with significant decreased waveform and monophasic flow noted suggest this is falsely elevated further evaluation as clinically warranted. 2. Moderate arterial occlusive disease with an JEANNETTE 0.59 but with a decreased monophasic waveform noted may also even be slightly falsely elevated further evaluation as clinically warranted
== END ==
PROVIDERS: Family Provider Family Medicine Geriatric Medicine; PCP Family Medicine Geriatric Medicine; Visit Provider Surgery Vascular Surgery
DX: I70.248 Atherosclerosis of native arteries of left leg with ulceration of other part of lower leg (principal); I70.235 Atherosclerosis of native arteries of right leg with ulceration of other part of foot
CPT/HCPCS: 93922; 93925

== ENCOUNTER → 2017-07-25 08:38 | Day surgery (SDC) | payer MEDICARE, SELFPAY ==
[2017-07-11 14:42] VITALS: BP 120/70
[2017-07-24 08:36] VITALS: BMI 30.9
[2017-07-25 08:56] LABS: Hematocrit 47.5 % (40-54); Hemoglobin 15.5 g/dl (13.0-16.5); Mean Corp Hgb Conc 32.6 g/gl (32-36); Mean Corpuscular Hgb 29.2 pg (27.0-32.0); Mean Corpuscular Volume 89.5 fL (80-94); Mean Platelet Vol. 9.7 fl (6.2-12.0); Platelet Count 259 K/mm3 (150-450); RBC Distribution Width CV 14.8 % (11.6-14.6); RBC Distribution Width SD 47.7 fl (35.1-43.9); Red Blood Count 5.31 M/mm3 (4.6-6.2); White Blood Count 9.7 K/mm3 (4.4-11.0)
[2017-07-25 08:57] LABS: Scan Indicated on CBC? Y/N NO
[2017-07-25 09:11] LABS: Albumin, Serum 3.2 g/dL (3.2-5.0); BUN 32 mg/dL (7-18); BUN/Creat Ratio 22.7 RATIO (10-20); Calcium,Total 8.8 mg/dL (8.5-10.1); Chloride 97 mmol/L (98-107); Creatinine, Serum 1.41 mg/dL (0.70-1.30); EST Glomerular Filtration Rate 54 mL/min (>60); Est Glom Filt Rate - Afr Amer 65 mL/min (>60); Estimated Creatinine Clearance 55.63 ml/min; Glucose 227 mg/dL (74-106); Phosphorus 3.5 mg/dL (2.5-4.9); Potassium 4.2 mmol/L (3.5-5.1); Sodium Level 135 mmol/L (136-145)
--- NOTE | 2017-07-25 11:22 | OP.PCM_ITS ---
Problem List (1) Delayed wound healing Status: Chronic (2) Lower extremity edema Status: Chronic (3) Chronic ulcer of left foot with fat layer exposed Status: Chronic (4) Peripheral vascular disease Status: Chronic Report of Operation Date of Procedure: 07/25/17 Pre-Operative Diagnosis: Nonhealing ulcer Post-Operative Diagnosis: The same with in-stent stenosis Surgery/Procedure Performed:: 1 ultrasound-guided access retrograde right common femoral artery. #2 left lower extremity angiogram with catheter placed into the popliteal artery. #3 balloon angioplasty the SFA to popliteal with a 4 mm balloon. #4 balloon angioplasty SFA stent with a 5 x 80 drug-coated balloon and then the rest of the stent into the popliteal artery with a 5 x 1 50 drug-coated balloon #5 closure with Star close Type of Anesthesia:: Sedation,Conscious Description of Procedure: Patient brought to the Transportation Inspector. Underwent the appropriate timeout consent. Prepped and draped in a sterile fashion. We did ultrasound-guided access retrograde in the right common femoral artery A thousand units of heparin. We got up and over the bifurcation put a stiff Glidewire brought in a long 6 Japanese sheath we did an angiogram showing the in-stent stenosis and distal to this with a moderate severe stenosis. The rest of the popliteal vein was widely patent into the anterior tibial that had a mild stenosis but good flow all the way into the foot tibial peroneal trunk was occluded there was then flow down the posterior tibial peroneal from there. We then get the wire through these areas of narrowing we then first balloon through the entire thing with a 4 x 200 balloon for over 2-1/2 minutes. We then did a drug-coated balloon from the popliteal into the stent which was a 5 x 1 50 balloon. And had this inflated for over 2-1/2 minutes. We then brought in and overlapped with a 5 x 80 up through the proximal part of the stent. And ballooned that for 2-1/2 minutes. Completion was much improved there is great flow throughout the entire stent the area of past this had a slight dissection nonflow limiting with great flow through it. We then removed out the sheath deployed a Star close with good hemostasis he was brought to recovery stable condition
== END ==
PROVIDERS: Family Provider Family Medicine Geriatric Medicine; PCP Family Medicine Geriatric Medicine; Visit Provider Surgery Vascular Surgery
DX: T82.856A Stenosis of peripheral vascular stent, initial encounter (principal); E11.621 Type 2 diabetes mellitus with foot ulcer; L97.512 Non-pressure chronic ulcer of other part of right foot with fat layer exposed; Z79.4 Long term (current) use of insulin; I70.248 Atherosclerosis of native arteries of left leg with ulceration of other part of lower leg; I25.2 Old myocardial infarction; I10 Essential (primary) hypertension; R60.0 Localized edema; Z95.1 Presence of aortocoronary bypass graft; E78.5 Hyperlipidemia, unspecified; K21.9 Gastro-esophageal reflux disease without esophagitis; E07.9 Disorder of thyroid, unspecified; Z95.5 Presence of coronary angioplasty implant and graft; Z86.73 Personal history of transient ischemic attack (TIA), and cerebral infarction without residual deficits; Z79.82 Long term (current) use of aspirin; Z79.01 Long term (current) use of anticoagulants; Z79.899 Other long term (current) drug therapy; Z87.891 Personal history of nicotine dependence
CPT/HCPCS: 36245; 36415; 37224; 71046; 73630; 73718; 75710; 76937; 80048; 80069; 82962; 83605; 84484; 85025; 85027; 85652; 86140; 87040; 87070; 87075; 87077; 87086; 87186; 87205; 87641; 93005; 94762; 97110; 97161; 97166; 97530; 97535; 99152; 99153; 99285; C1725; J7030; J7040; Q9967; A4216; C1760; C1769; C1887; C1894

== ENCOUNTER 2017-07-27 14:08 | Inpatient (IN) | payer MEDICARE, SELFPAY ==
[2017-07-27] VITALS (11 sets, daily range): BP systolic 123–157; BP diastolic 62–79; PULSE 73–94; RESP 14–22; TEMP 37.4–38.1; O2SAT 94–97; BMI 31.8; BMI 31.9; BMI 31.1
--- NOTE | 2017-07-27 16:03 | EKG12_ITS ---
Test Reason : Blood Pressure : / mmHG Vent. Rate : 079 BPM Atrial Rate : 079 BPM P-R Int : 216 ms QRS Dur : 150 ms QT Int : 416 ms P-R-T Axes : 047 106 231 degrees QTc Int : 477 ms Sinus rhythm with 1st degree A-V block Right bundle branch block T wave abnormality, consider lateral ischemia Abnormal ECG Confirmed by VINH PELAEZ, KODAK ([id number]), copy editor SONAM BAILON ([id number]) on 07/30/2017 12:54:55 PM Referred By: Florencio Redding Confirmed By:KODAK JUSTICE MD
--- NOTE | 2017-07-27 16:04 | RAD_ITS ---
STUDY: X-RAY CHEST REASON FOR EXAM: Male, 67 years old. Bilateral lower extremity edema TECHNIQUE: PA and lateral COMPARISON: January 22, 2017 FINDINGS: Lungs are mildly hyperinflated and there is chronic scarring at the left lung base There is no demonstrated pleural abnormality. Postop changes status post median sternotomy and CABG Normal size heart. Normal mediastinum and catrina. Normal visualized pulmonary arteries. Normal visualized aortic arch and descending thoracic aorta. Normal visualized thoracic spine. Normal visualized ribs, clavicles, and shoulders. There is no demonstrated abnormality of the visualized soft tissue structures of the upper abdomen. RAD/Chest PA and Lateral IMPRESSION: COPD and superimposed ASHD. No acute disease. Electronically Signed: Laureano Kilgore MD at 17:33 EST , Service support ,
[2017-07-27 16:33] LABS: Absolute Lymphocyte Count 1.18 X10^3/ul (0.83-4.51); Absolute Neutrophil Count 10.3 X10^3/uL (2.0-7.7); Basophil# 0.02 X10^3/uL; Basophil% 0.2 % (0-1); Eosinophil# 0.08 X10^3/uL; Eosinophils% 0.6 % (0-5); Hematocrit 47.2 % (40-54); Hemoglobin 15.6 g/dl (13.0-16.5); Lymphocyte # 1.18 X10^3/ul (4.0); Lymphocyte % 9.4 % (19-41); Mean Corp Hgb Conc 33.1 g/gl (32-36); Mean Corpuscular Hgb 29.4 pg (27.0-32.0); Mean Corpuscular Volume 88.9 fL (80-94); Monocyte# 0.89 X10^3/uL; Monocyte% 7.1 % (0-10); Neutrophil # 10.31 X10^3/uL (2.7-7.7); Neutrophil % 82.5 % (47-70); Platelet Count 270 K/mm3 (150-450); RBC Distribution Width CV 14.6 % (11.6-14.6); Red Blood Count 5.31 M/mm3 (4.6-6.2); White Blood Count 12.5 K/mm3 (4.4-11.0)
[2017-07-27 16:34] LABS: POSITIVE COUNT NO; POSITIVE DIFFERENTIAL NO; POSITIVE MORPHOLOGY NO
--- NOTE | 2017-07-27 16:55 | ED.RN ---
PEDAL PULSES FUND BY DOPPLER AND SITE NADIA. LEFT FOOT MORE DIFFICULT TO FIND. PULSE PRESSURE LESSENED IN LEFT THAN THE RIGHT.
[2017-07-27 17:13] LABS: Anion Gap 8 (5-15); BUN 27 mg/dL (7-18); Calcium,Total 9.2 mg/dL (8.5-10.1); Chloride 96 mmol/L (98-107); Creatinine, Serum 1.42 mg/dL (0.70-1.30); EST Glomerular Filtration Rate 53 mL/min (>60); Est Glom Filt Rate - Afr Amer 64 mL/min (>60); Estimated Creatinine Clearance 53.55 ml/min; Glucose 165 mg/dL (74-106); Potassium 4.4 mmol/L (3.5-5.1); Sodium Level 136 mmol/L (136-145)
[2017-07-27 17:29] LABS: Lactic Acid 2.1 mmol/L (0.4-2.0)
--- NOTE | 2017-07-27 17:44 | ED.VISSUMM ---
- ER Visit Summary Date of Service: 07/27/17 Chief Complaint: Dizzy and nauseated History of Present Illness: The patient is a 67 M who states he has not felt well for about 2-3 days. He complains of some intermittent dizziness and lightheadedness. He complains of generalized malaise and a bitemporal headache. He was recently treated for a chest infection he states his cough is actually improving but he does still have some cough. He reports chills but no documented fevers. He has had increased bilateral foot and leg pain and redness. His home nurse was concerned about possible infection and he was advised to be evaluated here in the emergency department. Physical Examination: Temperature 100.3 vitals otherwise unremarkable Moist mucous membranes Heart regular rate and rhythm Lungs are clear Abdomen soft Patient has positive bilateral Doppler dorsalis pedis pulses his sensation is intact to light touch he does have erythema and warmth to the touch of the bilateral lower extremities and feet there is no open wound on the bottom of the right foot which was cultured by the nursing staff Test Results: EKG shows sinus rhythm at a rate of 79. There is ST elevation in aVR and lateral ST depression which is similar to prior. Chest x-ray shows no focal infiltrate on my review. Laboratory studies notable for lactic acid 2.1. Emergency Department Course and Treatment: She was treated with IV Zosyn. He was discussed with hospitalist and admitted. Treatment Plan: [] Disposition: Admit Impression: Celllulitis bilateral lower extremities This note was generated with adicate timeads dictation software. It may contain incorrect words, spelling, and punctuation that were not noted in review of the chart prior to signing ED Disposition - Plan for ED Patient: Chief Complaint: Cellulitis Referrals: Johnathan Batres Chi, MD [Primary Care Provider] -
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
[2017-07-27 19:06] LABS: Bedside Glucose 126 mg/dL (70-110)
--- NOTE | 2017-07-27 19:33 | RAD_ITS ---
STUDY: X-RAY - RIGHT FOOT CLINICAL: Male, 67 years old. Open wound on the plantar surface of the base of the fifth toe. Pain. Cellulitis. TECHNIQUE: 2 view(s) of the foot. COMPARISON: None. FINDINGS: Normal talus, calcaneus, and tarsal bones. Normal visualized subtalar, talonavicular, calcaneocuboid, tarsal and tarsometatarsal articulations. Normal metatarsi. Normal metatarsophalangeal joint of the great toe. Normal tibial and fibular sesamoid bones. Normal interphalangeal joint of the great toe. Normal phalanges of the great toe. Normal second through fifth metatarsophalangeal joints. Normal interphalangeal joints and phalanges of the lesser toes. There is an area of lucency underlying the head of the fifth metatarsal, consistent with the given history of an ulceration in plantar soft tissues. There are arteriovascular calcifications. RAD/Foot min 3 Views IMPRESSION: No demonstrated fracture, dislocation, or destructive osseous lesion. No visible radiographic evidence for osteomyelitis. MRI or three-phase nuclear medicine bone scan would've greater sensitivity. Electronically Signed: Uriel Peña MD at 2:05 EST , Service support ,
[2017-07-27 20:24] LABS: Reflex Lactate? Y
[2017-07-27] MEDS: 0.9% Normal Saline 1,000 ML 150 ML IV (21:00)
--- NOTE | 2017-07-27 21:00 | NURSING ---
This RN is taking over patient care at this time.
[2017-07-27 22:18] LABS: Erythrocyte Sedimentation Rate 17 mm/hr (0-20)
[2017-07-27] MEDS: Heparin Injection 5,000 UNITS/ML Syringe 5000 UNITS SC (22:32)
[2017-07-27] MEDS: Baclofen 10 MG Tablet PO (22:33)
[2017-07-27] MEDS: Acetaminophen 325 MG Tablet 650 MG PO (22:33)
[2017-07-27] MEDS: Atorvastatin Calcium 80 MG Tablet PO (22:34)
[2017-07-27 23:27] LABS: Bedside Glucose 98 mg/dL (70-110)
[2017-07-27 23:27] LABS: Bedside Glucose 68 mg/dL (70-110)
[2017-07-28] VITALS (13 sets, daily range): BP systolic 122–156; BP diastolic 60–72; PULSE 61–85; RESP 16–18; TEMP 35.6–36.8; O2SAT 94–97
[2017-07-28] MEDS: Baclofen 10 MG Tablet PO ×3 (05:18→23:12)
--- NOTE | 2017-07-28 06:34 | RAD_ITS ---
STUDY: X-RAY - LEFT FOOT CLINICAL: Male, 67 years old. Cellulitis. TECHNIQUE: 3 view(s) of the foot. COMPARISON: 3 views of the left foot January 13, 2017. FINDINGS: Anterior periarticular spurring of the navicular is better defined in the lateral view today. Normal talus, calcaneus, and remaining tarsal bones. Normal visualized subtalar, talonavicular, calcaneocuboid, tarsal and tarsometatarsal articulations. Again seen is prior transmetatarsal amputation of the foot. Atherosclerotic vascular calcifications present. Surgical clips are again present in the medial soft tissues of the distal left lower leg. There is increased fullness of the soft tissues anterior and distal to the second through fourth metatarsal stumps, consistent with cellulitis. There is plantar ulceration of the soft tissues below the first metatarsal stump. There is no demonstrated osseous destructive lesion to clearly indicate active osteomyelitis. RAD/Foot min 3 Views IMPRESSION: 1. Prior transmetatarsal amputation of the left foot. 2. Plantar soft tissue ulceration below the first metatarsal stump, as well as changes of cellulitis anterior and distal to the 2-4 metatarsals. 3. There is no clear sign of active osteomyelitis. If clinical suspicion warrants additional imaging, further evaluation with three-phase bone scan or MRI advised. Electronically Signed: Tk Beauchamp MD at 11:03 EST , Service support ,
[2017-07-28 06:41] LABS: Bedside Glucose 95 mg/dL (70-110)
[2017-07-28] MEDS: Clopidogrel Bisulfate 75 MG Tablet PO (09:02)
[2017-07-28] MEDS: Aspirin 81 MG TAB.CHEW PO (09:02)
[2017-07-28] MEDS: Heparin Injection 5,000 UNITS/ML Syringe 5000 UNITS SC ×2 (09:02→23:12)
[2017-07-28] MEDS: Fluticasone 0.05% 1 SPRAY NASAL.SRY NASAL (09:03)
--- NOTE | 2017-07-28 09:09 | PCM.PROGNOTE ---
Patient Problems: Active and Suspected Problems Cellulitis of right foot (Acute) Severe sepsis (Acute) Cellulitis of left foot (Acute) Diabetes mellitus with neuropathy (Acute) PAD (peripheral artery disease) (Acute) Non-pressure chronic ulcer of other part of right foot with fat layer exposed (Acute) Non-pressure chronic ulcer of other part of left foot with fat layer exposed (Acute) Subjective: This 67 year old diabetic male was seen bedside this morning. He was sitting in a chair next to his bed eating breakfast. Patient was admitted last night through the emergency department after patient presented for not feeling well for the past couple of days with some chills. Patient has been being followed in the wound healing center by Dr. Thomas for ulcers to the right and left foot. He also has home health that helps with dressing changes at least twice a week. He says that home health nurse felt his feet were red and feared possible infection and convinced him to come to the ER. Patient also recently underwent an angioplasty of lower extremity on . Currently, the patient denies any feelings of nausea, vomiting, fever, or feelings of chills. He is very alert and talkative bedside and says he has an appetite. - Physical Exam General: Alert, Oriented x3, Cooperative Extremities: Capillary Refill Less than 3 Seconds, No Calf Tenderness - Negative tre and villagomez sign bilateral., Diminished Peripheral Pulses - DP and PT pulses non palpable bilateral., Edema - Slight lower extremity edema noted Skin: Ulcer/ Wound - Ulcer sub right 5th metatarsal head. Ulcer is approximately 1cm x 1.5 cm. Base a mixture of adherent slough, fibrotic and granular tissue. Slight hyperkeratic rim appreciated. Small amount of undermining. At 9 o clock, tracking was appreciated on the lateral half of the foot, to the dorsal foot. No cellulitis appreciated plantarly. Cellulitis was appreciated to lateral and dorsal aspect of foot. Very slight increase in warmth. No malodor, no purulence. Some serosanguinous drainage noted. No fluctuance or crepitus noted. Ulcer to plantar medial distal left foot. Measures approximately 1.5 cm x 1 cm. Base is mixture of adherent slough, fibrin, fibrotic and granular tissue. Slight undermining noted as well as hyperkeraotic rim. No tracking. Slight serosanguinous drainage. No purulence, no malodor. No cellulitis noted plantarly. Cellulitis noted to dorsal aspect of left foot. Very slight increase in warmth. Musculoskeletal: - - No pain on palpation of the feet. Neurological: - - epicritic sensation grossly absent from bilateral feet. Psych/Mental Status: Normal Affect, Appropriate Vital Signs Temp Pulse Resp BP Pulse Ox 96.1 F L 68 18 142/65 H 95 07/28/17 05:15 07/28/17 07:40 07/28/17 05:15 07/28/17 05:15 07/28/17 07:10 Oxygen Flow Rate 2 Oxygen Delivery Method Nasal Cannula Weight: 101.5 kg Body Mass Index (BMI) 31.1 Intake and Output for Last 24 Hours 07/26/17 07/27/17 07/28/17 23:59 23:59 23:59 Intake Total 2023 570 / 570 Output Total 700 / 700 Balance 2023 -130 / -130 Laboratory Tests Past 24 Hrs 07/27/17 07/28/17 20:52 06:20 Lactic Acid 1.0 MRSA (PCR) Pending POC Glucose 07/28/17 07/27/17 07/27/17 06:28 23:14 22:31 POC Glucose 95 98 68 L 07/27/17 18:55 POC Glucose 126 H Assessment/Plan Active and Suspected Problems Cellulitis of right foot (Acute) Severe sepsis (Acute) Cellulitis of left foot (Acute) Diabetes mellitus with neuropathy (Acute) PAD (peripheral artery disease) (Acute) Non-pressure chronic ulcer of other part of right foot with fat layer exposed (Acute) Non-pressure chronic ulcer of other part of left foot with fat layer exposed (Acute) Ulcer right foot with fat layer exposed Ulcer left foot with fat layer exposed Cellulitis of right foot Cellulitis of left foot DM with neuropathy PAD This patient was carefully examined and evaluated bedside. Currently his WBC is 7.8. ESR and CRP were drawn last evening and shown to be 17 and 103 respectively. Aerobic and anaerobic culture results from right and left ulcer still pending. Urine and Blood cultures are also pending. MRSA PCR was negative. Currently, Blood pressure is 155/69. All other vitals are stable at this time. Patient has also previously undergone an angiogram by Dr. Redding on July 25. 3 view x-rays were obtained of the right and left foot and were read as no demonstrated fracture, dislocation, or destructive osseous lesion. No visible radiographic evidence for osteomyelitis. MRI of the right and left foot were also ordered to further evaluate. Patient is currently on his way down. Will continue to follow for these results. Further treatment options will be evaluated once MRI results return. Each ulcer was cleansed with sterile saline bedside, and then dressed with aquacel ag to the base, followed by 4x4's, and kerlix. Patient is not to place pressure to either forefoot. Podiatry will continue to follow this patient while at the hospital.
[2017-07-28 09:14] LABS: M R Staph aureus DNA By PCR Negative (Negative); Probe Check PASS; Specimen Processing Control PASS
--- NOTE | 2017-07-28 09:21 | MRI_ITS ---
STUDY: MRI RIGHT MIDFOOT REASON FOR EXAM: Male, 67 years old. Cellulitis. Peripheral vascular disease. Diabetes. Evaluate fifth metatarsal head. TECHNIQUE: Standardized fat and water weighted pulse sequences were obtained in all 3 orthogonal planes. COMPARISON: X-ray July 27, 2017 FINDINGS: Normal talonavicular articulation. Normal calcaneocuboid articulation. Normal navicular-cuneiform articulations. Normal intercuneiform articulations. Normal first tarsometatarsal articulation. Normal Lisfranc ligament. Normal second and third tarsometatarsal articulations. Normal cuboid fourth and cuboid fifth tarsometatarsal articulation. Normal first through fourth metatarsi. There is marrow edema with T2 signal hyperintensity of the fifth metatarsal head and proximal phalanx, series 5 images through . There is adjacent soft tissue swelling and defect consistent with ulcer Normal tibialis anterior tendon. Normal extensor hallucis longus tendon. Normal extensor digitorum longus tendons. Normal peroneus longus tendon and distal insertion. Normal peroneus brevis tendon and distal insertion. Normal intrinsic muscles of the mid and forefoot region. Normal extensor digitorum brevis muscle. There is diffuse edema of the subcutaneous adipose space of the dorsal midfoot region. MRI/Lower Ext/No Jt/w/o IMPRESSION: Osteomyelitis of the fifth metatarsal head and proximal phalanx. Electronically Signed: Christiano Duenas MD at 14:59 EST , Service support ,
[2017-07-28 09:28] LABS: Absolute Lymphocyte Count 1.06 X10^3/ul (0.83-4.51); Absolute Neutrophil Count 5.5 X10^3/uL (2.0-7.7); Basophil# 0.03 X10^3/uL; Basophil% 0.4 % (0-1); Eosinophil# 0.19 X10^3/uL; Eosinophils% 2.4 % (0-5); Hematocrit 44.5 % (40-54); Hemoglobin 14.6 g/dl (13.0-16.5); Lymphocyte # 1.06 X10^3/ul (4.0); Lymphocyte % 13.6 % (19-41); Mean Corp Hgb Conc 32.8 g/gl (32-36); Mean Corpuscular Hgb 29.2 pg (27.0-32.0); Mean Platelet Vol. 9.6 fl (6.2-12.0); Monocyte# 1.05 X10^3/uL; Monocyte% 13.4 % (0-10); Neutrophil # 5.47 X10^3/uL (2.7-7.7); Neutrophil % 69.9 % (47-70); POSITIVE COUNT NO; POSITIVE DIFFERENTIAL NO; POSITIVE MORPHOLOGY NO; Platelet Count 240 K/mm3 (150-450); RBC Distribution Width CV 14.8 % (11.6-14.6); RBC Distribution Width SD 47.9 fl (35.1-43.9); White Blood Count 7.8 K/mm3 (4.4-11.0)
--- NOTE | 2017-07-28 09:40 | MRI_ITS ---
STUDY: MRI LEFT MIDFOOT REASON FOR EXAM: Male, 67 years old. Left foot cellulitis. TECHNIQUE: Standardized fat and water weighted pulse sequences were obtained in all 3 orthogonal planes. COMPARISON: X-ray July 28, 2017. FINDINGS: There is mild degenerative arthrosis of the talonavicular articulation. Normal calcaneocuboid articulation. Normal navicular-cuneiform articulations. Normal intercuneiform articulations. Normal first tarsometatarsal articulation. Normal Lisfranc ligament. Normal second and third tarsometatarsal articulations. Normal cuboid fourth and cuboid fifth tarsometatarsal articulation. Amputation at the proximal first through fifth metatarsi. There is soft tissue swelling of the stump. There is focal ulcer on the plantar aspect medially with subcutaneous edema. There is single focus of cortical indistinctness and marrow edema of the first metatarsal stump suggesting osteomyelitis, series 5 image 04/05. Normal tibialis anterior tendon. Normal extensor hallucis longus tendon. Normal extensor digitorum longus tendons. Normal peroneus longus tendon and distal insertion. Normal peroneus brevis tendon and distal insertion. MRI/Lower Ext/No Jt/w/o IMPRESSION: Status post transmetatarsal amputation. Small focus of osteomyelitis of the first metatarsal stump. Electronically Signed: Christiano Duenas MD at 15:08 EST , Service support ,
--- NOTE | 2017-07-28 09:42 | PN_ITS ---
Patient Problems: Active and Suspected Problems Cellulitis of right foot (Acute) Severe sepsis (Acute) Cellulitis of left foot (Acute) Diabetes mellitus with neuropathy (Acute) PAD (peripheral artery disease) (Acute) Non-pressure chronic ulcer of other part of right foot with fat layer exposed ( Acute) Non-pressure chronic ulcer of other part of left foot with fat layer exposed ( Acute) Subjective: This 67 year old diabetic male was seen bedside this morning. He was sitting in a chair next to his bed eating breakfast. Patient was admitted last night through the emergency department after patient presented for not feeling well for the past couple of days with some chills. Patient has been being followed in the wound healing center by Dr. Thomas for ulcers to the right and left foot. He also has home health that helps with dressing changes at least twice a week. He says that home health nurse felt his feet were red and feared possible infection and convinced him to come to the ER. Patient also recently underwent an angioplasty of lower extremity on . Currently, the patient denies any feelings of nausea, vomiting, fever, or feelings of chills. He is very alert and talkative bedside and says he has an appetite. - Physical Exam General: Alert, Oriented x3, Cooperative Extremities: Capillary Refill Less than 3 Seconds, No Calf Tenderness - Negative tre and villagomez sign bilateral., Diminished Peripheral Pulses - DP and PT pulses non palpable bilateral., Edema - Slight lower extremity edema noted Skin: Ulcer/ Wound - Ulcer sub right 5th metatarsal head. Ulcer is approximately 1cm x 1.5 cm. Base a mixture of adherent slough, fibrotic and granular tissue. Slight hyperkeratic rim appreciated. Small amount of undermining. At 9 o clock, tracking was appreciated on the lateral half of the foot, to the dorsal foot. No cellulitis appreciated plantarly. Cellulitis was appreciated to lateral and dorsal aspect of foot. Very slight increase in warmth. No malodor, no purulence. Some serosanguinous drainage noted. No fluctuance or crepitus noted. Ulcer to plantar medial distal left foot. Measures approximately 1.5 cm x 1 cm. Base is mixture of adherent slough, fibrin , fibrotic and granular tissue. Slight undermining noted as well as hyperkeraotic rim. No tracking. Slight serosanguinous drainage. No purulence, no malodor. No cellulitis noted plantarly. Cellulitis noted to dorsal aspect of left foot. Very slight increase in warmth. Musculoskeletal: - - No pain on palpation of the feet. Neurological: - - epicritic sensation grossly absent from bilateral feet. Psych/Mental Status: Normal Affect, Appropriate Vital Signs Temp Pulse Resp BP Pulse Ox 96.1 F L 68 18 142/65 H 95 07/28/17 05:15 07/28/17 07:40 07/28/17 05:15 07/28/17 05:15 07/28/17 07:10 Oxygen Flow Rate 2 Oxygen Delivery Method Nasal Cannula Weight: 101.5 kg Body Mass Index (BMI) 31.1 Intake and Output for Last 24 Hours 07/26/17 07/27/17 07/28/17 23:59 23:59 23:59 Intake Total 2023 570 / 570 Output Total 700 / 700 Balance 2023 -130 / -130 Laboratory Tests Past 24 Hrs 07/27/17 07/28/17 20:52 06:20 Lactic Acid 1.0 MRSA (PCR) Pending POC Glucose 07/28/17 07/27/17 07/27/17 06:28 23:14 22:31 POC Glucose 95 98 68 L 07/27/17 18:55 POC Glucose 126 H Assessment/Plan Active and Suspected Problems Cellulitis of right foot (Acute) Severe sepsis (Acute) Cellulitis of left foot (Acute) Diabetes mellitus with neuropathy (Acute) PAD (peripheral artery disease) (Acute) Non-pressure chronic ulcer of other part of right foot with fat layer exposed ( Acute) Non-pressure chronic ulcer of other part of left foot with fat layer exposed ( Acute) Ulcer right foot with fat layer exposed Ulcer left foot with fat layer exposed Cellulitis of right foot Cellulitis of left foot DM with neuropathy PAD This patient was carefully examined and evaluated bedside. Currently his WBC is 7.8. ESR and CRP were drawn last evening and shown to be 17 and 103 respectively. Aerobic and anaerobic culture results from right and left ulcer still pending. Urine and Blood cultures are also pending. MRSA PCR was negative. Currently, Blood pressure is 155/69. All other vitals are stable at this time. Patient has also previously undergone an angiogram by Dr. Reddign on July 25. 3 view x-rays were obtained of the right and left foot and were read as no demonstrated fracture, dislocation, or destructive osseous lesion. No visible radiographic evidence for osteomyelitis. MRI of the right and left foot were also ordered to further evaluate. Patient is currently on his way down. Will continue to follow for these results. Further treatment options will be evaluated once MRI results return. Each ulcer was cleansed with sterile saline bedside, and then dressed with aquacel ag to the base, followed by 4x4's , and kerlix. Patient is not to place pressure to either forefoot. Podiatry will continue to follow this patient while at the hospital.
--- NOTE | 2017-07-28 11:09 | PCM.PN.HOSP ---
Patient Problems: Active and Suspected Problems Non-pressure chronic ulcer of other part of left foot with fat layer exposed (Acute) Non-pressure chronic ulcer of other part of right foot with fat layer exposed (Acute) PAD (peripheral artery disease) (Acute) Diabetes mellitus with neuropathy (Acute) Cellulitis of left foot (Acute) Cellulitis of right foot (Acute) Severe sepsis (Acute) Subjective: Patient is a 67-year-old male with a history of peripheral artery disease status post angioplasty of the right superficial femoral artery to popliteal and a stent placement on July 25. He was brought in after his home health care thought he looked ill and was concerned about infection of his foot. In the emergency he was found to have a white cell count of 12.5 and temperature of 37.9 and was tachypneic with respiratory rate of 22. Lactic acid was 2.1. He is being managed for cellulitis of the lower extremities bilaterally; He was given one dose of IV zosyn in the ED and put on IV vancomycin. He has remained stable. Podiatry is on board. He was seen and examined this morning. He states he is feeling much better. He states the redness on his shins bilaterally is chronic even though he states that that is what is thought to be due to the cellulitis. He also complains of a puncture wound on his rifght sole which he says has remained the same. He denies any fever or chills, any cough or chest pain, any abdominal pain, any diarrhea vomiting. Pain in his lower extremities has resolved. Review of systems otherwise negative. Vitals/I&O's: Vital Signs Temp Pulse Resp BP Pulse Ox 98.3 F 75 16 155/69 H 97 07/28/17 09:20 07/28/17 09:20 07/28/17 09:20 07/28/17 09:20 07/28/17 09:20 Oxygen Flow Rate 2 Oxygen Delivery Method Room Air Weight: 223 lb 12.307 oz Body Mass Index (BMI) 31.1 Intake and Output for Last 24 Hours 07/26/17 07/27/17 07/28/17 23:59 23:59 23:59 Intake Total 2023 570 / 570 Output Total 700 / 700 Balance 2023 -130 / -130 General: Alert, Oriented x3, Cooperative HEENT: Atraumatic, PERRLA, EOMI, Normocephalic Oral: Moist Mucosa Neck: Supple Lungs: Clear to auscultation, Normal air movement, No rhonchi, No wheeze, No rales Cardiovascular: Regular rate, Regular Rhythm, Normal S1, Normal S2, No murmurs Abdomen: Bowel Sounds Present, Soft, Non Tender, Non-Distended, No Hepato-splenomegaly Extremities: No edema, Capillary Refill Less than 3 Seconds, - - Has erythema on both lower extremities on the shins. Erythema is resolving and has not extended outside demarcated area. Both feet bandaged. Has about a 1 cm x 1 cm deep wound on the sole of the left right which has scanty discharge. No ulcerations in interdigital spaces. Skin: - - Please refer to documentation under extremities Musculoskeletal: No Tenderness to Palpation of Joints or Extremities Lymphatic: No Cervical, Supraclavicular, or Inguinal Adenopathy Neurological: Cranial nerves II-XII grossly intact Psych/Mental Status: Normal Affect, Appropriate, Alert and oriented to time, place, person, mood and affect Laboratory Results 07/27/17 18:55: POC Glucose 126 H 07/27/17 20:52: Lactic Acid 1.0 07/27/17 22:31: POC Glucose 68 L 07/27/17 23:14: POC Glucose 98 07/28/17 06:20: MRSA (PCR) Negative 07/28/17 06:28: POC Glucose 95 07/28/17 09:15: WBC 7.8, RBC 5.00, Hgb 14.6, Hct 44.5, MCV 89.0, MCH 29.2, MCHC 32.8, RDW 14.8 H, RDW Differential 47.9 H, Plt Count 240, MPV 9.6, Immature Gran % (Auto) 0.300, Neut % (Auto) 69.9, Lymph % (Auto) 13.6 L, [place] % (Auto) 13.4 H, Eos % (Auto) 2.4, Baso % (Auto) 0.4, Absolute Neuts (auto) 5.5, Absolute Lymphs (auto) 1.06, Total Counted Not Reportable Current Medications Acetaminophen (Tylenol) 650 mg PO Q6H PRN PRN PRN Reason: Mild Pain (1-3)/Temp > 100.7 F Last Admin: 07/27/17 22:33 Dose: 650 mg Aspirin (Aspirin, Baby) 81 mg PO DAILY@0800 [facility] Last Admin: 07/28/17 09:02 Dose: 81 mg Atorvastatin Calcium (Lipitor) 80 mg PO QHS [facility] Last Admin: 07/27/17 22:34 Dose: 80 mg Baclofen (Lioresal) 10 mg PO TID [facility] Last Admin: 07/28/17 05:18 Dose: 10 mg Clopidogrel Bisulfate (Plavix) 75 mg PO DAILY [facility] Last Admin: 07/28/17 09:02 Dose: 75 mg Dextrose (D50w Syringe) 0 gm IV X1 PRN; Protocol PRN Reason: Hypoglycemia Fluticasone Propionate (Flonase Nasal [place]) 1 spray NASAL DAILY [facility] Last Admin: 07/28/17 09:03 Dose: 1 spray Glucagon () 1 mg IM .X1 PRN PRN Reason: Hypoglycemia Heparin Sodium (Porcine) () 5,000 units SC BID [facility] Last Admin: 07/28/17 09:02 Dose: 5,000 units Vancomycin HCl 1,500 mg/ (Sodium Chloride) 530 mls @ 250 mls/hr IV Q24H [facility] Last Admin: 07/27/17 20:32 Dose: 250 mls/hr Insulin Aspart (Novolog Flexpen ([facility])) 10 units SC TIDAC [facility] Last Admin: 07/28/17 07:13 Dose: Not Given Insulin Detemir (Levemir (Bkc)) 60 units SC BID [facility] Last Admin: 07/28/17 09:00 Dose: Not Given Magnesium Hydroxide (Milk Of Magnesia) 30 ml PO DAILY PRN PRN Reason: Constipation Ondansetron HCl (Zofran) 4 mg IV Q8H PRN PRN PRN Reason: NAUSEA Sodium Chloride () 5 - 30 ml IV UD PRN PRN Reason: SALINE FLUSH Assessment/Plan Active and Suspected Problems Non-pressure chronic ulcer of other part of left foot with fat layer exposed (Acute) Non-pressure chronic ulcer of other part of right foot with fat layer exposed (Acute) PAD (peripheral artery disease) (Acute) Diabetes mellitus with neuropathy (Acute) Cellulitis of left foot (Acute) Cellulitis of right foot (Acute) Severe sepsis (Acute) 1. Cellulitis of both lower extremities Pain. Patient has no complaints today. Currently has no SIRS criteria Vitals have remained stable. Leukocytosis today. WBC has trended down to 7.8 from 12.5 and admission. Has no bands. Cultures pending wound cultures pending. Podiatry on board. Ordered MRI of his foot today to assess for osteomyelitis. MRI showed evidence of osteomyelitis of right fifth metatarsal head and proximal phalanx and small focus of osteomyelitis of left first metatarsal stump. ID consulted. Vancomycin stopped as MRSA PCR was also negative. Andrew started on IV cefepime per discussion with podiatry, their plan is for surgery early next week. To consult vascular surgery on Sunday for their assessment on how well wound will heal after surgery 2. Diabetes type 2 On NovoLog 10 units 3 times daily and Levemir 60 units twice daily Insulin sliding scale. accuChecks before meals at bedtime. 3. CKD stage III: Stable. Creatinine was 1.42 on admission which is around his baseline. Will continue to monitor. 4. DVT prophylaxis: Heparin 5. CODE STATUS: Full code. Does not want to be intubated or have artificial nutrition through tubes. Code Visit Inpatient E&M: 51423 [facility] L[facility]
--- NOTE | 2017-07-28 11:18 | PN_ITS ---
Patient Problems: Active and Suspected Problems Non-pressure chronic ulcer of other part of left foot with fat layer exposed ( Acute) Non-pressure chronic ulcer of other part of right foot with fat layer exposed ( Acute) PAD (peripheral artery disease) (Acute) Diabetes mellitus with neuropathy (Acute) Cellulitis of left foot (Acute) Cellulitis of right foot (Acute) Severe sepsis (Acute) Subjective: Patient is a 67-year-old male with a history of peripheral artery disease status post angioplasty of the right superficial femoral artery to popliteal and a stent placement on July 25. He was brought in after his home health care thought he looked ill and was concerned about infection of his foot. In the emergency he was found to have a white cell count of 12.5 and temperature of 37.9 and was tachypneic with respiratory rate of 22. Lactic acid was 2.1. He is being managed for cellulitis of the lower extremities bilaterally; He was given one dose of IV zosyn in the ED and put on IV vancomycin. He has remained stable. Podiatry is on board. He was seen and examined this morning. He states he is feeling much better. He states the redness on his shins bilaterally is chronic even though he states that that is what is thought to be due to the cellulitis. He also complains of a puncture wound on his rifght sole which he says has remained the same. He denies any fever or chills, any cough or chest pain, any abdominal pain, any diarrhea vomiting. Pain in his lower extremities has resolved. Review of systems otherwise negative. Vitals/I&O's: Vital Signs Temp Pulse Resp BP Pulse Ox 98.3 F 75 16 155/69 H 97 07/28/17 09:20 07/28/17 09:20 07/28/17 09:20 07/28/17 09:20 07/28/17 09:20 Oxygen Flow Rate 2 Oxygen Delivery Method Room Air Weight: 223 lb 12.307 oz Body Mass Index (BMI) 31.1 Intake and Output for Last 24 Hours 07/26/17 07/27/17 07/28/17 23:59 23:59 23:59 Intake Total 2023 570 / 570 Output Total 700 / 700 Balance 2023 -130 / -130 General: Alert, Oriented x3, Cooperative HEENT: Atraumatic, PERRLA, EOMI, Normocephalic Oral: Moist Mucosa Neck: Supple Lungs: Clear to auscultation, Normal air movement, No rhonchi, No wheeze, No rales Cardiovascular: Regular rate, Regular Rhythm, Normal S1, Normal S2, No murmurs Abdomen: Bowel Sounds Present, Soft, Non Tender, Non-Distended, No Hepato- splenomegaly Extremities: No edema, Capillary Refill Less than 3 Seconds, - - Has erythema on both lower extremities on the shins. Erythema is resolving and has not extended outside demarcated area. Both feet bandaged. Has about a 1 cm x 1 cm deep wound on the sole of the left right which has scanty discharge. No ulcerations in interdigital spaces. Skin: - - Please refer to documentation under extremities Musculoskeletal: No Tenderness to Palpation of Joints or Extremities Lymphatic: No Cervical, Supraclavicular, or Inguinal Adenopathy Neurological: Cranial nerves II-XII grossly intact Psych/Mental Status: Normal Affect, Appropriate, Alert and oriented to time, place, person, mood and affect Laboratory Results 07/27/17 18:55: POC Glucose 126 H 07/27/17 20:52: Lactic Acid 1.0 07/27/17 22:31: POC Glucose 68 L 07/27/17 23:14: POC Glucose 98 07/28/17 06:20: MRSA (PCR) Negative 07/28/17 06:28: POC Glucose 95 07/28/17 09:15: WBC 7.8, RBC 5.00, Hgb 14.6, Hct 44.5, MCV 89.0, MCH 29.2, MCHC 32.8, RDW 14.8 H, RDW Differential 47.9 H, Plt Count 240, MPV 9.6, Immature Gran % (Auto) 0.300, Neut % (Auto) 69.9, Lymph % (Auto) 13.6 L, [place] % (Auto) 13.4 H, Eos % (Auto) 2.4, Baso % (Auto) 0.4, Absolute Neuts (auto) 5.5, Absolute Lymphs (auto) 1.06, Total Counted Not Reportable Current Medications Acetaminophen (Tylenol) 650 mg PO Q6H PRN PRN PRN Reason: Mild Pain (1-3)/Temp > 100.7 F Last Admin: 07/27/17 22:33 Dose: 650 mg Aspirin (Aspirin, Baby) 81 mg PO DAILY@0800 [facility] Last Admin: 07/28/17 09:02 Dose: 81 mg Atorvastatin Calcium (Lipitor) 80 mg PO QHS [facility] Last Admin: 07/27/17 22:34 Dose: 80 mg Baclofen (Lioresal) 10 mg PO TID [facility] Last Admin: 07/28/17 05:18 Dose: 10 mg Clopidogrel Bisulfate (Plavix) 75 mg PO DAILY [facility] Last Admin: 07/28/17 09:02 Dose: 75 mg Dextrose (D50w Syringe) 0 gm IV X1 PRN; Protocol PRN Reason: Hypoglycemia Fluticasone Propionate (Flonase Nasal [place]) 1 spray NASAL DAILY [facility] Last Admin: 07/28/17 09:03 Dose: 1 spray Glucagon () 1 mg IM .X1 PRN PRN Reason: Hypoglycemia Heparin Sodium (Porcine) () 5,000 units SC BID [facility] Last Admin: 07/28/17 09:02 Dose: 5,000 units Vancomycin HCl 1,500 mg/ (Sodium Chloride) 530 mls @ 250 mls/hr IV Q24H [facility] Last Admin: 07/27/17 20:32 Dose: 250 mls/hr Insulin Aspart (Novolog Flexpen (Bk)) 10 units SC TIDAC [facility] Last Admin: 07/28/17 07:13 Dose: Not Given Insulin Detemir (Levemir (Bkc)) 60 units SC BID [facility] Last Admin: 07/28/17 09:00 Dose: Not Given Magnesium Hydroxide (Milk Of Magnesia) 30 ml PO DAILY PRN PRN Reason: Constipation Ondansetron HCl (Zofran) 4 mg IV Q8H PRN PRN PRN Reason: NAUSEA Sodium Chloride () 5 - 30 ml IV UD PRN PRN Reason: SALINE FLUSH Assessment/Plan Active and Suspected Problems Non-pressure chronic ulcer of other part of left foot with fat layer exposed ( Acute) Non-pressure chronic ulcer of other part of right foot with fat layer exposed ( Acute) PAD (peripheral artery disease) (Acute) Diabetes mellitus with neuropathy (Acute) Cellulitis of left foot (Acute) Cellulitis of right foot (Acute) Severe sepsis (Acute) 1. Cellulitis of both lower extremities * Pain. Patient has no complaints today. Currently has no SIRS criteria * Vitals have remained stable. * Leukocytosis today. WBC has trended down to 7.8 from 12.5 and admission. Has no bands. * Cultures pending wound cultures pending. Podiatry on board. Ordered MRI of his foot today to assess for osteomyelitis. * MRI showed evidence of osteomyelitis of right fifth metatarsal head and proximal phalanx and small focus of osteomyelitis of left first metatarsal stump. ID consulted. Vancomycin stopped as MRSA PCR was also negative. * Patietn started on IV cefepime * per discussion with podiatry, their plan is for surgery early next week. To consult vascular surgery on Sunday for their assessment on how well wound will heal after surgery * * 2. Diabetes type 2 * On NovoLog 10 units 3 times daily and Levemir 60 units twice daily * Insulin sliding scale. * accuChecks before meals at bedtime. * 3. CKD stage III: Stable. Creatinine was 1.42 on admission which is around his baseline. Will continue to monitor. 4. DVT prophylaxis: Heparin 5. CODE STATUS: Full code. Does not want to be intubated or have artificial nutrition through tubes. Code Visit Inpatient E&M: 55206 Subs Hosp L3
--- NOTE | 2017-07-28 11:42 | CASEMGMT ---
Addendum entered by Sheryl Andrews 07/28/17 13:14: SW did attempt to leave Deanne at [facility] a message letting her know pt is here, however the phones at [facility] are not working. ALFRED Lam, ADELE Original Note: Addendum entered by Sheryl Andrews 07/28/17 12:37: Green sheet is on chart to resume home health. ALFRED Lam, ADELE Original Note: See assessment. SW spoke w/pt in room. Pt confirms has [employer] [facility], has aide services and nursing through [employer], with [facility]. Pt plans to return home at discharge. Nursing changes his dressings 2x/week and she goes to the wound healing center one time per week. Pt plans to return home as long as there are no changes in pt's needs. SW called [facility], confirmed w/Erika they will take pt back. Jael from [facility] had called in to the RN and said that we needed to find new home care as they are going out of busines. SW asked Erika, she states as far as she knows they are keeping pt for now, will find a new agency when his cert period is up. She will confirm w/Jael, she will call this SW back if there is a problem, otherwise, this SW can assume [facility] will take pt back. SW will place green sheet on chart in anticipation of possible weekend discharge back home w/home health. [place] initially spoke [place]/Erika about 2 hours ago and has not heard back, so it is assumed that pt will return home w/home health w/[facility]. If a new agency is needed, pt would likely need to stay for the weekend so this could be set up on Sunday. ALFRED Lam, ADELE
[2017-07-28 12:30] LABS: Bedside Glucose 293 mg/dL (70-110)
[2017-07-28 16:31] LABS: Bedside Glucose 334 mg/dL (70-110)
[2017-07-28] MEDS: 0.9% NaCl Peripheral Flush Adult/Peds IV (16:39)
[2017-07-28] MEDS: Polyethylene Glycol 3350 17 GM PACKET PO (18:45)
[2017-07-28] MEDS: Atorvastatin Calcium 80 MG Tablet PO (23:14)
[2017-07-28 23:26] LABS: Bedside Glucose 241 mg/dL (70-110)
[2017-07-29] VITALS (13 sets, daily range): BP systolic 136–181; BP diastolic 61–88; PULSE 54–84; RESP 16–18; TEMP 36.6–36.8; O2SAT 93–97
[2017-07-29] MEDS: Baclofen 10 MG Tablet PO ×2 (05:20→21:55)
[2017-07-29 06:35] LABS: Absolute Neutrophil Count 4.7 X10^3/uL (2.0-7.7); Basophil# 0.03 X10^3/uL; Basophil% 0.4 % (0-1); Eosinophil# 0.27 X10^3/uL; Eosinophils% 3.8 % (0-5); Hematocrit 44.5 % (40-54); Hemoglobin 15.1 g/dl (13.0-16.5); Lymphocyte % 16.8 % (19-41); Mean Corp Hgb Conc 33.9 g/gl (32-36); Mean Corpuscular Volume 88.3 fL (80-94); Mean Platelet Vol. 10.2 fl (6.2-12.0); Monocyte# 0.94 X10^3/uL; Monocyte% 13.1 % (0-10); Neutrophil # 4.71 X10^3/uL (2.7-7.7); Neutrophil % 65.8 % (47-70); Platelet Count 275 K/mm3 (150-450); RBC Distribution Width CV 14.9 % (11.6-14.6); RBC Distribution Width SD 47.6 fl (35.1-43.9); Red Blood Count 5.04 M/mm3 (4.6-6.2); White Blood Count 7.2 K/mm3 (4.4-11.0)
[2017-07-29 06:42] LABS: POSITIVE COUNT NO; POSITIVE DIFFERENTIAL NO; POSITIVE MORPHOLOGY NO
[2017-07-29 06:48] LABS: Anion Gap 8 (5-15); BUN 28 mg/dL (7-18); BUN/Creat Ratio 26.2 RATIO (10-20); Calcium,Total 8.8 mg/dL (8.5-10.1); Chloride 98 mmol/L (98-107); Creatinine, Serum 1.07 mg/dL (0.70-1.30); EST Glomerular Filtration Rate 74 mL/min (>60); Est Glom Filt Rate - Afr Amer 89 mL/min (>60); Estimated Creatinine Clearance 73.31 ml/min; Glucose 160 mg/dL (74-106); Sodium Level 135 mmol/L (136-145)
[2017-07-29 06:57] LABS: Bedside Glucose 160 mg/dL (70-110)
[2017-07-29] MEDS: Aspirin 81 MG TAB.CHEW PO (09:04)
[2017-07-29] MEDS: Clopidogrel Bisulfate 75 MG Tablet PO (09:04)
[2017-07-29] MEDS: Polyethylene Glycol 3350 17 GM PACKET PO (09:05)
[2017-07-29] MEDS: Heparin Injection 5,000 UNITS/ML Syringe 5000 UNITS SC ×2 (09:15→21:55)
[2017-07-29] MEDS: Iron Polysaccharide Complex 150 MG CAPSULE PO (09:17)
[2017-07-29] MEDS: Levothyroxine 100 MCG Tablet 200 MCG PO (09:18)
[2017-07-29] MEDS: Montelukast 10 MG Tablet PO (09:18)
[2017-07-29] MEDS: Furosemide 80 MG Tablet PO ×2 (09:18→21:55)
[2017-07-29] MEDS: Fluticasone 0.05% 1 SPRAY NASAL.SRY NASAL (09:19)
[2017-07-29] MEDS: LINACLOTIDE 145 MCG CAPSULE PO ×2 (09:20)
--- NOTE | 2017-07-29 11:55 | PCM.PN.HOSP ---
Patient Problems: Active and Suspected Problems Non-pressure chronic ulcer of other part of left foot with fat layer exposed (Acute) Non-pressure chronic ulcer of other part of right foot with fat layer exposed (Acute) PAD (peripheral artery disease) (Acute) Diabetes mellitus with neuropathy (Acute) Cellulitis of left foot (Acute) Cellulitis of right foot (Acute) Severe sepsis (Acute) Subjective: Patient seen and examined. He has no complaints today. He feels well. Getting swelling on his lower extremities is still the same. He was concerned when I told him about the MRI indicating possible osteomyelitis in both feet. I informed him that podiatry is on board in a planning surgery early next week. He denies any fever or chills, any cough or chest pain, any abdominal pain, any diarrhea vomiting. Review of systems otherwise negative. Objective: Patient is a 67-year-old male with a history of peripheral artery disease status post angioplasty of the right superficial femoral artery to popliteal and a stent placement on July 25. He was brought in after his home health care thought he looked ill and was concerned about infection of his foot. In the emergency he was found to have a white cell count of 12.5 and temperature of 37.9 and was tachypneic with respiratory rate of 22. Lactic acid was 2.1. He is being managed for cellulitis of the lower extremities bilaterally; He was given one dose of IV zosyn in the ED and put on IV vancomycin. He has remained stable. Podiatry is on board. MRI ordered by podiatry of both LEs showed possible osteomyelitis in both feet. MRSA PCR was negative, so vancomycin was stopped. Patient is currently on IV cefepime. ID has been consulted, and will see patient on Sunday07/30/17. Podiatry is planning surgery either Sunday or Sunday for patient. Vitals/I&O's: Vital Signs Temp Pulse Resp BP Pulse Ox 98.3 F 84 16 143/67 H 97 07/29/17 09:27 07/29/17 11:00 07/29/17 09:27 07/29/17 09:27 07/29/17 09:27 Oxygen Flow Rate 2 Oxygen Delivery Method Room Air Weight: 223 lb 12.307 oz Body Mass Index (BMI) 31.1 Intake and Output for Last 24 Hours 07/27/17 07/28/17 07/29/17 23:59 23:59 23:59 Intake Total 2023 4190 / 4190 120 / 120 Output Total 2600 / 2600 550 / 550 Balance 2023 1590 / 1590 -430 / -430 General: Alert, Oriented x3, Cooperative, No apparent distress HEENT: Atraumatic, PERRLA, EOMI, Normocephalic Oral: Moist Mucosa Neck: Supple, No JVD, Negative Carotid Bruits Lungs: Clear to auscultation, Normal air movement, No rhonchi, No wheeze, No rales Cardiovascular: Regular rate, Regular Rhythm, Normal S1, Normal S2, No murmurs Abdomen: Bowel Sounds Present, Soft, Non Tender, - - obese abdomen. Has non obstructed epigastric hernia Extremities: - - has erythema and mild tenderness of lower shins, both feet bandaged. Bandage clean. Musculoskeletal: No Tenderness to Palpation of Joints or Extremities Lymphatic: No Cervical, Supraclavicular, or Inguinal Adenopathy Neurological: Cranial nerves II-XII grossly intact Psych/Mental Status: Normal Affect, Appropriate, Alert and oriented to time, place, person, mood and affect Microbiology Past 72 Hours 07/28/17 05:33 Urine, Clean Catch Urine Culture - Preliminary Culture exhibits no growth. 07/27/17 22:12 Wound - Right Foot Gram Stain - Final 07/27/17 22:12 Wound - Right Foot Wound Culture - Preliminary Serratia marcescens Laboratory Results 07/28/17 12:24: POC Glucose 293 H 07/28/17 16:20: POC Glucose 334 H 07/28/17 23:12: POC Glucose 241 H 07/29/17 05:25: WBC 7.2, RBC 5.04, Hgb 15.1, Hct 44.5, MCV 88.3, MCH 30.0, MCHC 33.9, RDW 14.9 H, RDW Differential 47.6 H, Plt Count 275, MPV 10.2, Immature Gran % (Auto) 0.100, Neut % (Auto) 65.8, Lymph % (Auto) 16.8 L, [place] % (Auto) 13.1 H, Eos % (Auto) 3.8, Baso % (Auto) 0.4, Absolute Neuts (auto) 4.7, Absolute Lymphs (auto) 1.20, Total Counted Not Reportable 07/29/17 05:25: Sodium 135 L, Potassium 4.0, Chloride 98, Carbon Dioxide 29.0, Anion Gap 8, BUN 28 H, Creatinine 1.07, Estim Creat Clear Calc 73.31, Est GFR (MDRD) Af Amer 89, Est GFR (MDRD) Non-Af 74, BUN/Creatinine Ratio 26.2 H, Glucose 160 H, Calcium 8.8, C-React Prot Ext Range 97.30 H 07/29/17 06:51: POC Glucose 160 H Current Medications Acetaminophen (Tylenol) 650 mg PO Q6H PRN PRN PRN Reason: Mild Pain (1-3)/Temp > 100.7 F Last Admin: 07/27/17 22:33 Dose: 650 mg Hydrocodone Bitart/Acetaminophen ([place] 5mg-325mg) 1 - 2 tablet PO Q6H PRN PRN PRN Reason: Moderate-severe pain Aspirin (Aspirin, Baby) 81 mg PO DAILY@0800 [facility] Last Admin: 07/29/17 09:04 Dose: 81 mg Atorvastatin Calcium (Lipitor) 80 mg PO QHS [facility] Last Admin: 07/28/17 23:14 Dose: 80 mg Baclofen (Lioresal) 10 mg PO TID [facility] Last Admin: 07/29/17 05:20 Dose: 10 mg Clopidogrel Bisulfate (Plavix) 75 mg PO DAILY [facility] Last Admin: 07/29/17 09:04 Dose: 75 mg Dextrose (D50w Syringe) 0 gm IV X1 PRN; Protocol PRN Reason: Hypoglycemia Fluticasone Propionate (Flonase Nasal [place]) 1 spray NASAL DAILY [facility] Last Admin: 07/29/17 09:19 Dose: 1 spray Furosemide (Lasix) 80 mg PO BID [facility] Last Admin: 07/29/17 09:18 Dose: 80 mg Glucagon () 1 mg IM .X1 PRN PRN Reason: Hypoglycemia Heparin Sodium (Porcine) () 5,000 units SC BID [facility] Last Admin: 07/29/17 09:15 Dose: 5,000 units Hydralazine HCl (Apresoline) 10 mg IV Q4H PRN PRN PRN Reason: SBP > 160 Cefepime HCl 2 gm/ Sodium (Chloride) 100 mls @ 200 mls/hr IV Q12 [facility] Last Admin: 07/29/17 09:16 Dose: 200 mls/hr Insulin Aspart (Novolog Flexpen (Bkc)) 10 units SC TIDAC [facility] Last Admin: 07/29/17 09:01 Dose: 10 u Insulin Detemir (Levemir (Bkc)) 60 units SC BID [facility] Last Admin: 07/29/17 09:03 Dose: 60 u Levothyroxine Sodium (Synthroid) 200 mcg PO DAILY@0600 [facility] Last Admin: 07/29/17 09:18 Dose: 200 mcg Linaclotide (Linzess) 145 mcg PO DAILY [facility] Last Admin: 07/29/17 09:20 Dose: 145 mcg Magnesium Hydroxide (Milk Of Magnesia) 30 ml PO DAILY PRN PRN Reason: Constipation Metoprolol Tartrate (Lopressor (Beta [place]onis)) 100 mg PO BID [facility] Montelukast Sodium (Singulair) 10 mg PO DAILY [facility] Last Admin: 07/29/17 09:18 Dose: 10 mg Ondansetron HCl (Zofran) 4 mg IV Q8H PRN PRN PRN Reason: NAUSEA Polyethylene Glycol (Miralax) 17 gm PO DAILY [facility] Last Admin: 07/29/17 09:05 Dose: 17 gm Polyethylene Glycol (Miralax) 17 gm PO DAILY PRN PRN PRN Reason: CONSTIPATION Polysaccharide [facility] ([facility]rex 150[facility] Admin: 07/29/17 09:17 Dose: 150 mg Sodium Chloride () 5 - 30 ml IV UD PRN PRN Reason: SALINE FLUSH Last Admin: 07/28/17 16:39 Dose: 10 ml Assessment/Plan Active and Suspected Problems Non-pressure chronic ulcer of other part of left foot with fat layer exposed (Acute) Non-pressure chronic ulcer of other part of right foot with fat layer exposed (Acute) PAD (peripheral artery disease) (Acute) Diabetes mellitus with neuropathy (Acute) Cellulitis of left foot (Acute) Cellulitis of right foot (Acute) Severe sepsis (Acute) 1. Cellulitis of both lower extremities Patient has no complaints today. Pain is well controlled. Vitals have remained stable. leucocytosis has resolved; wbc is 7.2 blood cultures are still pending wound cultures serratia marcescens; however this is not very beneficial due to contamination and low yield of wound cultures will need bone biopsy during surgery MRI showed evidence of osteomyelitis of right fifth metatarsal head and proximal phalanx and small focus of osteomyelitis of left first metatarsal stump. ID consulted. Vancomycin stopped as MRSA PCR was also negative. on IV cefepime ID consulted. Dr Pepe will see patient tomorrow. Podiatry plan is for surgery early next week. To consult vascular surgery on Sunday for their assessment about wound healing after surgery 2. Diabetes type 2 On NovoLog 10 units 3 times daily and Levemir 60 units twice daily Insulin sliding scale. accuChecks before meals at bedtime. fasting sugar today is 160 will monitor 3. CKD stage III: Stable. Creatinine was 1.42 on admission which is around his baseline. Will continue to monitor. 4. Mild Hyponatremia: Na is 135. Will monitor 5. Hypothyroidism: on synthroid 200mcg daily. will continue 6. Hypertension: fairly controlled: on metoprolol 100mg bid, lasix 80mg bid and hydralazine prn 7. DVT prophylaxis: Heparin 8. CODE STATUS: Full code. Does not want to be intubated or have artificial nutrition through tubes. Code Visit Inpatient E&M: 55306 Subs Hosp L2
--- NOTE | 2017-07-29 12:00 | PN_ITS ---
Patient Problems: Active and Suspected Problems Non-pressure chronic ulcer of other part of left foot with fat layer exposed ( Acute) Non-pressure chronic ulcer of other part of right foot with fat layer exposed ( Acute) PAD (peripheral artery disease) (Acute) Diabetes mellitus with neuropathy (Acute) Cellulitis of left foot (Acute) Cellulitis of right foot (Acute) Severe sepsis (Acute) Subjective: Patient was seen bedside again today. He is still resting comfortably. He says he continues to feel better today and he still has a good appetite. He says his chills have continued to stay away and he does not have any other new complaints today. He currently denies any feelings of nausea, vomiting, fever, chills. - Physical Exam General: Alert, Oriented x3, Cooperative Extremities: Capillary Refill Less than 3 Seconds, No Calf Tenderness - negative tre and villagomez signs, Diminished Peripheral Pulses - DP and PT pulses non palpable bilateral, Edema - slight lower extremity Skin: Ulcer/ Wound - Ulcer sub right 5th metatarsal head. Ulcer has not changed in size since yesterday 1cm x 1.5 cm. Base a mixture of adherent slough, fibrotic and granular tissue. Slight hyperkeratic rim appreciated. Small amount of undermining. At 9 o clock, tracking was appreciated on the lateral half of the foot, to the dorsal foot. No cellulitis appreciated plantarly. Cellulitis still appreciated to lateral and dorsal aspect of foot, but slightly improved since yesterday. Very slight increase in warmth. No malodor. Serosanguinous drainage appreciated as well as scant amount of purulent drainage to dressing. No fluctuance or crepitus noted. Ulcer to plantar medial distal left foot. Measures approximately 1.5 cm x 1 cm and unchanged in size since yesterday. Base is mixture of adherent slough, fibrin, fibrotic and granular tissue. Slight undermining noted as well as hyperkeraotic rim. No tracking. Slight serosanguinous drainage. No purulence, no malodor. No cellulitis noted plantarly. Cellulitis still noted to dorsal aspect of left foot but slightly improved since yesterday. Very slight increase in warmth. Musculoskeletal: - - No pain with palpation of ulcer sites. Neurological: - - epircritic sensation grossly absent from bilateral feet. Psych/Mental Status: Normal Affect, Appropriate Vital Signs Temp Pulse Resp BP Pulse Ox 98.3 F 84 16 143/67 H 97 07/29/17 09:27 07/29/17 11:00 07/29/17 09:27 07/29/17 09:27 07/29/17 09:27 Oxygen Flow Rate 2 Oxygen Delivery Method Room Air Weight: 101.5 kg Body Mass Index (BMI) 31.1 Intake and Output for Last 24 Hours 07/27/17 07/28/17 07/29/17 23:59 23:59 23:59 Intake Total 2023 4190 / 4190 120 / 120 Output Total 2600 / 2600 550 / 550 Balance 2023 1590 / 1590 -430 / -430 Microbiology Past 72 Hours 07/27/17 22:12 Gram Stain - Final Wound - Right Foot Wound Culture - Preliminary Serratia marcescens Laboratory Tests Past 24 Hrs 07/29/17 07/29/17 05:25 05:25 WBC 7.2 RBC 5.04 Hgb 15.1 Hct 44.5 MCV 88.3 MCH 30.0 MCHC 33.9 RDW 14.9 H RDW Differential 47.6 H Plt Count 275 MPV 10.2 Immature Gran % (Auto) 0.100 Neut % (Auto) 65.8 Lymph % (Auto) 16.8 L [place] % (Auto) 13.1 H Eos % (Auto) 3.8 Baso % (Auto) 0.4 Absolute Neuts (auto) 4.7 Absolute Lymphs (auto) 1.20 Total Counted Not Reportable Sodium 135 L Potassium 4.0 Chloride 98 Carbon Dioxide 29.0 Anion Gap 8 BUN 28 H Creatinine 1.07 Estim Creat Clear Calc 73.31 Est GFR (MDRD) Af Amer 89 Est GFR (MDRD) Non-Af 74 BUN/Creatinine Ratio 26.2 H Glucose 160 H Calcium 8.8 C-React Prot Ext Range 97.30 H POC Glucose 07/29/17 07/28/17 07/28/17 06:51 23:12 16:20 POC Glucose 160 H 241 H 334 H 07/28/17 12:24 POC Glucose 293 H Assessment/Plan Active and Suspected Problems Non-pressure chronic ulcer of other part of left foot with fat layer exposed ( Acute) Non-pressure chronic ulcer of other part of right foot with fat layer exposed ( Acute) PAD (peripheral artery disease) (Acute) Diabetes mellitus with neuropathy (Acute) Cellulitis of left foot (Acute) Cellulitis of right foot (Acute) Severe sepsis (Acute) Patient was again carefully examined and evaluated today. WBC is 7.2. BP is 143/ 67. Remaining vital signs are all stable. Wound culture growing serratia marcescens. Blood and urine cultures still pending. As discussed in the addendum to my note yesterday, MRI results from bilateral feet were observed and read as suspected osteomyelitis of the right fifth metatarsal head and proximal phalanx. 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 Due to these results, podiatry would plan on surgical procedure early this coming week. This was discussed with Dr. Thomas as well as Dr. Grimaldo. We will plan on consulting with infectious disease as well as with Dr. Redding with vascular before making final surgical plan. Dr. Thomas will be taking over patient care starting tomorrow. She is familiar with the patient as she has been seeing the patient on a weekly basis at the wound healing center. The MRI results as well as plan for surgical intervention was discussed in great detail with the patient. He says he understands and says he is willing to do whatever he has to do to get his feet healed. All of his questions were answered to his satisfaction today. His ulcer sites and feet were carefully evaluated, cleansed , and dressed with aqucel ag, 4x4s, and lightly wrapped kerlix. Podiatry will continue to follow.
--- NOTE | 2017-07-29 12:05 | PN_ITS ---
Patient Problems: Active and Suspected Problems Non-pressure chronic ulcer of other part of left foot with fat layer exposed ( Acute) Non-pressure chronic ulcer of other part of right foot with fat layer exposed ( Acute) PAD (peripheral artery disease) (Acute) Diabetes mellitus with neuropathy (Acute) Cellulitis of left foot (Acute) Cellulitis of right foot (Acute) Severe sepsis (Acute) Subjective: Patient seen and examined. He has no complaints today. He feels well. Getting swelling on his lower extremities is still the same. He was concerned when I told him about the MRI indicating possible osteomyelitis in both feet. I informed him that podiatry is on board in a planning surgery early next week. He denies any fever or chills, any cough or chest pain, any abdominal pain, any diarrhea vomiting. Review of systems otherwise negative. Objective: Patient is a 67-year-old male with a history of peripheral artery disease status post angioplasty of the right superficial femoral artery to popliteal and a stent placement on July 25. He was brought in after his home health care thought he looked ill and was concerned about infection of his foot. In the emergency he was found to have a white cell count of 12.5 and temperature of 37.9 and was tachypneic with respiratory rate of 22. Lactic acid was 2.1. He is being managed for cellulitis of the lower extremities bilaterally; He was given one dose of IV zosyn in the ED and put on IV vancomycin. He has remained stable. Podiatry is on board. MRI ordered by podiatry of both LEs showed possible osteomyelitis in both feet. MRSA PCR was negative, so vancomycin was stopped. Patient is currently on IV cefepime. ID has been consulted, and will see patient on Sunday07/30/17. Podiatry is planning surgery either Sunday or Sunday for patient. Vitals/I&O's: Vital Signs Temp Pulse Resp BP Pulse Ox 98.3 F 84 16 143/67 H 97 07/29/17 09:27 07/29/17 11:00 07/29/17 09:27 07/29/17 09:27 07/29/17 09:27 Oxygen Flow Rate 2 Oxygen Delivery Method Room Air Weight: 223 lb 12.307 oz Body Mass Index (BMI) 31.1 Intake and Output for Last 24 Hours 07/27/17 07/28/17 07/29/17 23:59 23:59 23:59 Intake Total 2023 4190 / 4190 120 / 120 Output Total 2600 / 2600 550 / 550 Balance 2023 1590 / 1590 -430 / -430 General: Alert, Oriented x3, Cooperative, No apparent distress HEENT: Atraumatic, PERRLA, EOMI, Normocephalic Oral: Moist Mucosa Neck: Supple, No JVD, Negative Carotid Bruits Lungs: Clear to auscultation, Normal air movement, No rhonchi, No wheeze, No rales Cardiovascular: Regular rate, Regular Rhythm, Normal S1, Normal S2, No murmurs Abdomen: Bowel Sounds Present, Soft, Non Tender, - - obese abdomen. Has non obstructed epigastric hernia Extremities: - - has erythema and mild tenderness of lower shins, both feet bandaged. Bandage clean. Musculoskeletal: No Tenderness to Palpation of Joints or Extremities Lymphatic: No Cervical, Supraclavicular, or Inguinal Adenopathy Neurological: Cranial nerves II-XII grossly intact Psych/Mental Status: Normal Affect, Appropriate, Alert and oriented to time, place, person, mood and affect Microbiology Past 72 Hours 07/28/17 05:33 Urine, Clean Catch Urine Culture - Preliminary Culture exhibits no growth. 07/27/17 22:12 Wound - Right Foot Gram Stain - Final 07/27/17 22:12 Wound - Right Foot Wound Culture - Preliminary Serratia marcescens Laboratory Results 07/28/17 12:24: POC Glucose 293 H 07/28/17 16:20: POC Glucose 334 H 07/28/17 23:12: POC Glucose 241 H 07/29/17 05:25: WBC 7.2, RBC 5.04, Hgb 15.1, Hct 44.5, MCV 88.3, MCH 30.0, MCHC 33.9, RDW 14.9 H, RDW Differential 47.6 H, Plt Count 275, MPV 10.2, Immature Gran % (Auto) 0.100, Neut % (Auto) 65.8, Lymph % (Auto) 16.8 L, Caroline % (Auto) 13.1 H, Eos % (Auto) 3.8, Baso % (Auto) 0.4, Absolute Neuts (auto) 4.7, Absolute Lymphs (auto) 1.20, Total Counted Not Reportable 07/29/17 05:25: Sodium 135 L, Potassium 4.0, Chloride 98, Carbon Dioxide 29.0, Anion Gap 8, BUN 28 H, Creatinine 1.07, Estim Creat Clear Calc 73.31, Est GFR ( MDRD) Af Amer 89, Est GFR (MDRD) Non-Af 74, BUN/Creatinine Ratio 26.2 H, Glucose 160 H, Calcium 8.8, C-React Prot Ext Range 97.30 H 07/29/17 06:51: POC Glucose 160 H Current Medications Acetaminophen (Tylenol) 650 mg PO Q6H PRN PRN PRN Reason: Mild Pain (1-3)/Temp > 100.7 F Last Admin: 07/27/17 22:33 Dose: 650 mg Hydrocodone Bitart/Acetaminophen ([place] 5mg-325mg) 1 - 2 tablet PO Q6H PRN PRN PRN Reason: Moderate-severe pain Aspirin (Aspirin, Baby) 81 mg PO DAILY@0800 [facility] Last Admin: 07/29/17 09:04 Dose: 81 mg Atorvastatin Calcium (Lipitor) 80 mg PO QHS [facility] Last Admin: 07/28/17 23:14 Dose: 80 mg Baclofen (Lioresal) 10 mg PO TID [facility] Last Admin: 07/29/17 05:20 Dose: 10 mg Clopidogrel Bisulfate (Plavix) 75 mg PO DAILY [facility] Last Admin: 07/29/17 09:04 Dose: 75 mg Dextrose (D50w Syringe) 0 gm IV X1 PRN; Protocol PRN Reason: Hypoglycemia Fluticasone Propionate (Flonase Nasal [place]) 1 spray NASAL DAILY [facility] Last Admin: 07/29/17 09:19 Dose: 1 spray Furosemide (Lasix) 80 mg PO BID [facility] Last Admin: 07/29/17 09:18 Dose: 80 mg Glucagon () 1 mg IM .X1 PRN PRN Reason: Hypoglycemia Heparin Sodium (Porcine) () 5,000 units SC BID [facility] Last Admin: 07/29/17 09:15 Dose: 5,000 units Hydralazine HCl (Apresoline) 10 mg IV Q4H PRN PRN PRN Reason: SBP > 160 Cefepime HCl 2 gm/ Sodium (Chloride) 100 mls @ 200 mls/hr IV Q12 [facility] Last Admin: 07/29/17 09:16 Dose: 200 mls/hr Insulin Aspart (Novolog Flexpen (Bkc)) 10 units SC TIDAC [facility] Last Admin: 07/29/17 09:01 Dose: 10 u Insulin Detemir (Levemir (Bkc)) 60 units SC BID [facility] Last Admin: 07/29/17 09:03 Dose: 60 u Levothyroxine Sodium (Synthroid) 200 mcg PO DAILY@0600 [facility] Last Admin: 07/29/17 09:18 Dose: 200 mcg Linaclotide (Linzess) 145 mcg PO DAILY [facility] Last Admin: 07/29/17 09:20 Dose: 145 mcg Magnesium Hydroxide (Milk Of Magnesia) 30 ml PO DAILY PRN PRN Reason: Constipation Metoprolol Tartrate (Lopressor (Beta Adonis)) 100 mg PO BID [facility] Montelukast Sodium (Singulair) 10 mg PO DAILY [facility] Last Admin: 07/29/17 09:18 Dose: 10 mg Ondansetron HCl (Zofran) 4 mg IV Q8H PRN PRN PRN Reason: NAUSEA Polyethylene Glycol (Miralax) 17 gm PO DAILY [facility] Last Admin: 07/29/17 09:05 Dose: 17 gm Polyethylene Glycol (Miralax) 17 gm PO DAILY PRN PRN PRN Reason: CONSTIPATION Polysaccharide Iron [facility] ([facility]rex 150) [facility] Last Admin: 07/29/17 09:17 Dose: 150 mg Sodium Chloride () 5 - 30 ml IV UD PRN PRN Reason: SALINE FLUSH Last Admin: 07/28/17 16:39 Dose: 10 ml Assessment/Plan Active and Suspected Problems Non-pressure chronic ulcer of other part of left foot with fat layer exposed ( Acute) Non-pressure chronic ulcer of other part of right foot with fat layer exposed ( Acute) PAD (peripheral artery disease) (Acute) Diabetes mellitus with neuropathy (Acute) Cellulitis of left foot (Acute) Cellulitis of right foot (Acute) Severe sepsis (Acute) 1. Cellulitis of both lower extremities * Patient has no complaints today. Pain is well controlled. * Vitals have remained stable. * leucocytosis has resolved; wbc is 7.2 * blood cultures are still pending * wound cultures serratia marcescens; however this is not very beneficial due to contamination and low yield of wound cultures * will need bone biopsy during surgery * MRI showed evidence of osteomyelitis of right fifth metatarsal head and proximal phalanx and small focus of osteomyelitis of left first metatarsal stump. ID consulted. Vancomycin stopped as MRSA PCR was also negative. * on IV cefepime * ID consulted. Dr Pepe will see patient tomorrow. * Podiatry plan is for surgery early next week. To consult vascular surgery on Sunday for their assessment about wound healing after surgery * * 2. Diabetes type 2 * On NovoLog 10 units 3 times daily and Levemir 60 units twice daily * Insulin sliding scale. * accuChecks before meals at bedtime. * fasting sugar today is 160 * will monitor * 3. CKD stage III: Stable. Creatinine was 1.42 on admission which is around his baseline. Will continue to monitor. 4. Mild Hyponatremia: Na is 135. Will monitor 5. Hypothyroidism: on synthroid 200mcg daily. will continue 6. Hypertension: fairly controlled: on metoprolol 100mg bid, lasix 80mg bid and hydralazine prn 7. DVT prophylaxis: Heparin 8. CODE STATUS: Full code. Does not want to be intubated or have artificial nutrition through tubes. Code Visit Inpatient E&M: 13450 Subs Hosp L2
[2017-07-29] MEDS: Metoprolol Tartrate 100 MG Tablet PO ×2 (12:21→21:52)
[2017-07-29 12:30] LABS: Bedside Glucose 254 mg/dL (70-110)
[2017-07-29 17:20] LABS: Bedside Glucose 248 mg/dL (70-110)
[2017-07-29] MEDS: Atorvastatin Calcium 80 MG Tablet PO (21:52)
[2017-07-29 22:10] LABS: Bedside Glucose 172 mg/dL (70-110)
[2017-07-30] VITALS (13 sets, daily range): BP systolic 129–176; BP diastolic 62–73; PULSE 54–78; RESP 18; TEMP 35.5–36.5; O2SAT 94–97
[2017-07-30] MEDS: Dextrose 50%-Water 25 GM/50 ML DISP.SYRIN IV (04:45)
[2017-07-30] MEDS: Levothyroxine 100 MCG Tablet 200 MCG PO (05:49)
[2017-07-30] MEDS: Baclofen 10 MG Tablet PO ×3 (05:49→21:03)
[2017-07-30 06:18] LABS: Absolute Lymphocyte Count 0.71 X10^3/ul (0.83-4.51); Absolute Neutrophil Count 7.1 X10^3/uL (2.0-7.7); Basophil# 0.04 X10^3/uL; Basophil% 0.5 % (0-1); Eosinophil# 0.11 X10^3/uL; Eosinophils% 1.3 % (0-5); Hematocrit 44.3 % (40-54); Hemoglobin 14.7 g/dl (13.0-16.5); Lymphocyte # 0.71 X10^3/ul (4.0); Lymphocyte % 8.3 % (19-41); Mean Corp Hgb Conc 33.2 g/gl (32-36); Mean Corpuscular Hgb 29.3 pg (27.0-32.0); Mean Corpuscular Volume 88.4 fL (80-94); Mean Platelet Vol. 10.2 fl (6.2-12.0); Monocyte# 0.55 X10^3/uL; Monocyte% 6.4 % (0-10); Neutrophil # 7.11 X10^3/uL (2.7-7.7); Neutrophil % 83.1 % (47-70); Platelet Count 274 K/mm3 (150-450); RBC Distribution Width CV 14.7 % (11.6-14.6); RBC Distribution Width SD 47.2 fl (35.1-43.9); Red Blood Count 5.01 M/mm3 (4.6-6.2); White Blood Count 8.6 K/mm3 (4.4-11.0)
[2017-07-30 06:23] LABS: POSITIVE COUNT NO; POSITIVE DIFFERENTIAL NO; POSITIVE MORPHOLOGY NO
[2017-07-30 06:25] LABS: Anion Gap 6 (5-15); BUN 30 mg/dL (7-18); BUN/Creat Ratio 22.9 RATIO (10-20); Calcium,Total 8.9 mg/dL (8.5-10.1); Chloride 100 mmol/L (98-107); Creatinine, Serum 1.31 mg/dL (0.70-1.30); EST Glomerular Filtration Rate 58 mL/min (>60); Est Glom Filt Rate - Afr Amer 71 mL/min (>60); Estimated Creatinine Clearance 59.88 ml/min; Glucose 140 mg/dL (74-106); Potassium 4.4 mmol/L (3.5-5.1); Sodium Level 137 mmol/L (136-145)
[2017-07-30 07:01] LABS: Bedside Glucose 116 mg/dL (70-110)
[2017-07-30] MEDS: Heparin Injection 5,000 UNITS/ML Syringe 5000 UNITS SC ×2 (09:17→21:03)
[2017-07-30] MEDS: Aspirin 81 MG TAB.CHEW PO (09:18)
[2017-07-30] MEDS: Iron Polysaccharide Complex 150 MG CAPSULE PO (09:18)
[2017-07-30] MEDS: Fluticasone 0.05% 1 SPRAY NASAL.SRY NASAL (09:18)
[2017-07-30] MEDS: Furosemide 80 MG Tablet PO ×2 (09:19→21:03)
[2017-07-30] MEDS: Montelukast 10 MG Tablet PO (09:20)
[2017-07-30] MEDS: Metoprolol Tartrate 100 MG Tablet PO ×2 (09:20→21:02)
[2017-07-30] MEDS: Polyethylene Glycol 3350 17 GM PACKET PO (09:20)
[2017-07-30] MEDS: Clopidogrel Bisulfate 75 MG Tablet PO (09:20)
--- NOTE | 2017-07-30 10:04 | CASEMGMT ---
[place] called [facility] and spoke with Porsche on the coverage line. Patient gets an aid from [employer] M-F 2 hours each time, he has an emergency response button, and gets 9 meals a week from [employer]. His worker is Paulo Diaz ([phone]). [place] to follow for d/c planning. Yas SCOTT MSW
--- NOTE | 2017-07-30 11:14 | CON.PCM_ITS ---
Problem List (1) Osteomyelitis of left foot Status: Acute Reason for Consult: osteo Consulted by: Dr. Grimaldo History of Present Illness: The patient is a 67 year old M with h/o DM, PVD with recent angioplasty 07/25 who presented with 1-2 days of chills and several weeks of worsening foot pain, redness, and mild drainage. Has had ulcers on feet for at least at year. Is s/ p L foot TMA. Follows at wound clinic. Redness extended up to mid-barlow. Seen by home nurse, sent to ED. Podiatry consulted. Given vanc/zosyn. MRI now show bilat osteo in feet, so started on cefepime. Wound cx sent, (+) for serratia and corynebacterium. Feeling ok, no fevers here, redness slightly improved. Full ROS performed and neg except as noted above. Mild headache, some nausea. - Medical History Past Medical History (Chronic Problems): Chronic Problems CAD (coronary artery disease) (Chronic) Malnutrition (Chronic) Delayed wound healing (Chronic) Lower extremity edema (Chronic) Chronic ulcer of left foot with fat layer exposed (Chronic) Ulcer of right foot with fat layer exposed (Chronic) Hypertension (Chronic) Hyperlipidemia (Chronic) Hypothyroidism (Chronic) Coronary artery disease (Chronic) Sleep apnea (Chronic) Chronic kidney disease (Chronic) PAOD (peripheral arterial occlusive disease) (Chronic) GERD (gastroesophageal reflux disease) (Chronic) Muscle spasm (Chronic) Type 2 diabetes mellitus with diabetic polyneuropathy (Chronic) Pulmonary hypertension (Chronic) Obstructive sleep apnea (Chronic) Morbid obesity (Chronic) Non compliance with medical treatment (Chronic) Diabetic foot ulcers (Chronic) Aortocoronary bypass status (Chronic) Type II diabetes mellitus, uncontrolled (Chronic) History of esophageal reflux (Chronic) History of hyperlipidemia (Chronic) History of hypertension (Chronic) History of hypothyroidism (Chronic) Macular infarction (Chronic) Peripheral vascular disease (Chronic) Allergies/Adverse Reactions: Allergies adhesive Allergy (Verified 02/13/17 14:38) SKIN GETS PULLED OFF SKIN GETS PULLED OFF latex Allergy (Verified 02/13/17 14:38) Hives Home Medications: Ambulatory Orders Medication Instructions Recorded Clopidogrel Bisulfate [Plavix] 75 mg PO DAILY 05/15/13 Levothyroxine [Synthroid] 200 mcg PO DAILY 05/15/13 Metoprolol Tartrate [Lopressor 100 mg PO BID 05/15/13 (beta ramo)] Atorvastatin Calcium [Lipitor] 80 mg PO QHS 01/12/16 Pantoprazole Sodium [Protonix] 20 mg PO DAILY 01/12/16 Aspirin [Aspirin, Baby] 81 mg PO DAILY@0800 02/25/16 Baclofen [Lioresal] 10 mg PO TID 02/25/16 Multivitamin [Daily Multiple 1 each PO DAILY 02/25/16 Vitamin] Meclizine HCl [Antivert] 12.5 mg PO TID PRN PRN 07/12/16 Fluticasone 0.05% [Flonase Nasal 1 spray NASAL DAILY 01/11/17 [place]] Furosemide [Lasix] 80 mg PO BID 02/13/17 Insulin Detemir [Levemir FlexPen] 40 units SC BID 02/13/17 Insulin Glargine,Hum.rec.anlog 45 units SQ DAILY 07/24/17 [Lantus] Linacolotide [Linzess] 145 mcg PO DAILY 07/24/17 Oxycodone [Oxyir] 5 mg PO Q4H PRN PRN 07/24/17 Cefdinir 300 mg PO BID 07/27/17 Codeine Phosphate/Guaifenesin 10 ml PO Q4H PRN 07/27/17 [Guaifen-Codeine 200-20 mg/10Ml] Dapagliflozin Propanediol [Farxiga] 10 mg PO DAILY 07/27/17 Insulin Aspart [Novolog Flexpen] 26 units SC TIDAC 07/27/17 Insulin Glargine,Hum.rec.anlog 07/27/17 [Lantus] Iron Polysaccharide Complex 150 mg PO DAILYCM 07/27/17 [Ferrex 150] Linagliptin [Tradjenta] 5 mg PO DAILY 07/27/17 Liraglutide [Victoza 2-Tarun] 1.2 mg SQ DAILY 07/27/17 Montelukast [Singulair] 10 mg PO DAILY 07/27/17 Plecanatide [Trulance] 3 mg PO DAILY 07/27/17 Polyethylene Glycol 3350 1 pkt PO DAILY PRN 07/27/17 - Social History SMOKING STATUS:: Former smoker Vital Signs Temp Pulse Resp BP Pulse Ox 97.1 F L 78 18 176/72 H 96 07/30/17 09:14 07/30/17 09:20 07/30/17 09:14 07/30/17 09:14 07/30/17 09:14 Oxygen Flow Rate 2 Oxygen Delivery Method Room Air Weight: 101.5 kg Body Mass Index (BMI) 31.1 Microbiology Past 72 Hours 07/27/17 22:12 Gram Stain - Final Wound - Right Foot Wound Culture - Final Serratia marcescens Corynebacterium striatum Anaerobic Culture - Preliminary Checking for anaerobes, further studies to follow. 07/28/17 05:33 Urine Culture - Final Urine, Clean Catch Culture exhibits no growth. Laboratory Tests Past 24 Hrs 07/30/17 07/30/17 05:20 05:20 WBC 8.6 RBC 5.01 Hgb 14.7 Hct 44.3 MCV 88.4 MCH 29.3 MCHC 33.2 RDW 14.7 H RDW Differential 47.2 H Plt Count 274 MPV 10.2 Immature Gran % (Auto) 0.400 Neut % (Auto) 83.1 H Lymph % (Auto) 8.3 L [place] % (Auto) 6.4 Eos % (Auto) 1.3 Baso % (Auto) 0.5 Absolute Neuts (auto) 7.1 Absolute Lymphs (auto) 0.71 L Total Counted Not Reportable Sodium 137 Potassium 4.4 Chloride 100 Carbon Dioxide 31.0 Anion Gap 6 BUN 30 H Creatinine 1.31 H Estim Creat Clear Calc 59.88 Est GFR (MDRD) Af Amer 71 Est GFR (MDRD) Non-Af 58 L BUN/Creatinine Ratio 22.9 H Glucose 140 H Calcium 8.9 - Other Studies Radiology: [] reviewed Other Studies: [] Route of nutrition/ use of supplements: [] Nutritional Intake: [] IV Site: [] Meng Catheter: [] - Physical Exam General: Alert, Oriented x3, Cooperative, No apparent distress HEENT: Atraumatic, PERRLA, EOMI Neck: Supple, No JVD Lungs: Clear to auscultation, Normal air movement Cardiovascular: Regular rate, Regular Rhythm, No murmurs Abdomen: Bowel Sounds Present, Soft, Non Tender, Obese Extremities: Diminished Peripheral Pulses, Edema Skin: Ulcer/ Wound - bilateral foot ulcers, wrapped., Rash Present - Mild redness, no warmth, around bilat shins/calves IV Site: Peripheral, without redness Musculoskeletal: No Tenderness to Palpation of Joints or Extremities Neurological: Cranial nerves II-XII grossly intact - Assessment/Plan Antibiotics: [] Assessment/Plan: [] Active and Suspected Problems Non-pressure chronic ulcer of other part of left foot with fat layer exposed ( Acute) Non-pressure chronic ulcer of other part of right foot with fat layer exposed ( Acute) PAD (peripheral artery disease) (Acute) Diabetes mellitus with neuropathy (Acute) Cellulitis of left foot (Acute) Cellulitis of right foot (Acute) Severe sepsis (Acute) Bilat foot DM osteomyelitis with PVD - recent angioplasty. MRI shows R 5th metatarsal and toe osteo as well as osteo of L foot stump. Surg debridement planned. Cont cefepime, will add flagyl for anaerobic coverage. ESR is normal. Wound cx with serratia and corynebacterium. Redness around shins seems more consistent with chronic venous stasis at this point. Thank you, will follow.
[2017-07-30 12:36] LABS: Bedside Glucose 193 mg/dL (70-110)
[2017-07-30] MEDS: metroNIDAZOLE 500 MG Tablet PO ×2 (14:49→21:03)
--- NOTE | 2017-07-30 15:41 | CHAPLAIN ---
Type of Pastoral Visit _x__ Initial Visit ___ Follow-up Visit ___ On-call Visit ___ General Patient Visit ___ Spiritual Assessment ___ Family Conference ___ Bereavement ___ Rapid Response ___ Code Blue ___ Other (describe below) Pastoral Care Referral From _x__ Patient ___ Family ___ Nurse ___ Physician ___ Information Developer ___ Service Crew Supervisor ___ Other (describe below) Sacrament/Intervention _x__ Active listening ___ Anointing ___ Yazidi ___ Bereavement ___ Communion _x__ Elsa exploration ___ ___ Life review _x__ Prayer ___ Reconciliation ___ Sacrament of Sick _x__ Supportive presence ___ Wedding ___ Other (describe below) Pastoral Comments patient requests prayer and expresses some anxiety about potential foot surgery that would remove toes and portions of foot; pt says that he is willing to trust God for the outcome but would really like to keep his feet
[2017-07-30 17:25] LABS: Bedside Glucose 198 mg/dL (70-110)
--- NOTE | 2017-07-30 17:50 | PN_ITS ---
Patient Problems: Active and Suspected Problems Cellulitis of right foot (Acute) Severe sepsis (Acute) Subjective: CC: Osteomyelitis of the foot Patient presented with bilateral lower extremity erythema venostasis, found to have osteomyelitis , he is receiving antibiotics and surgical intervention is planned. Vitals/I&O's: Vital Signs Temp Pulse Resp BP Pulse Ox 97.2 F L 65 18 172/73 H 95 07/30/17 14:48 07/30/17 15:09 07/30/17 14:48 07/30/17 14:48 07/30/17 14:48 Oxygen Flow Rate 2 Oxygen Delivery Method Room Air Weight: 101.5 kg Body Mass Index (BMI) 31.1 Intake and Output for Last 24 Hours 07/28/17 07/29/17 07/30/17 23:59 23:59 23:59 Intake Total 4190 / 4190 1650 / 1650 1789 / 1789 Output Total 2600 / 2600 2500 / 2500 1050 / 1050 Balance 1590 / 1590 -850 / -850 739 / 739 General: Alert, Oriented x3 HEENT: Atraumatic Oral: Moist Mucosa Neck: Supple, No JVD Lungs: Clear to auscultation, No wheeze Cardiovascular: Regular rate, Regular Rhythm, Normal S1, Normal S2, No murmurs Abdomen: Bowel Sounds Present, Soft, Non Tender Neurological: Cranial nerves II-XII grossly intact, Motor Exam 5/5 strength throughout Microbiology Past 72 Hours 07/27/17 22:12 Wound - Right Foot Gram Stain - Final 07/27/17 22:12 Wound - Right Foot Wound Culture - Final Serratia marcescens Corynebacterium striatum 07/27/17 22:12 Wound - Right Foot Anaerobic Culture - Preliminary Checking for anaerobes, further studies to follow. 07/28/17 05:33 Urine, Clean Catch Urine Culture - Final Culture exhibits no growth. Laboratory Results 07/29/17 21:51: POC Glucose 172 H 07/30/17 05:20: WBC 8.6, RBC 5.01, Hgb 14.7, Hct 44.3, MCV 88.4, MCH 29.3, MCHC 33.2, RDW 14.7 H, RDW Differential 47.2 H, Plt Count 274, MPV 10.2, Immature Gran % (Auto) 0.400, Neut % (Auto) 83.1 H, Lymph % (Auto) 8.3 L, Arthur % (Auto) 6.4, Eos % (Auto) 1.3, Baso % (Auto) 0.5, Absolute Neuts (auto) 7.1, Absolute Lymphs (auto) 0.71 L, Total Counted Not Reportable 07/30/17 05:20: Sodium 137, Potassium 4.4, Chloride 100, Carbon Dioxide 31.0, Anion Gap 6, BUN 30 H, Creatinine 1.31 H, Estim Creat Clear Calc 59.88, Est GFR (MDRD) Af Amer 71, Est GFR (MDRD) Non-Af 58 L, BUN/Creatinine Ratio 22.9 H, Glucose 140 H, Calcium 8.9 07/30/17 06:55: POC Glucose 116 H 07/30/17 12:25: POC Glucose 193 H 07/30/17 17:13: POC Glucose 198 H Current Medications Acetaminophen (Tylenol) 650 mg PO Q6H PRN PRN PRN Reason: Mild Pain (1-3)/Temp > 100.7 F Last Admin: 07/27/17 22:33 Dose: 650 mg Hydrocodone Bitart/Acetaminophen ([place] 5mg-325mg) 1 - 2 tablet PO Q6H PRN PRN PRN Reason: Moderate-severe pain Aspirin (Aspirin, Baby) 81 mg PO DAILY@0800 [facility]PLACED [facility] Last Admin: 07/30/17 09:18 Dose: 81 mg Atorvastatin Calcium (Lipitor) 80 mg PO QHS REPLACED [facility] Last Admin: 07/29/17 21:52 Dose: 80 mg Baclofen (Lioresal) 10 mg PO TID [facility]PL[facility] Last Admin: 07/30/17 14:49 Dose: 10 mg Clopidogrel Bisulfate (Plavix) 75 mg PO DAILY [facility]PL[facility] Last Admin: 07/30/17 09:20 Dose: 75 mg Dextrose (D50w Syringe) 0 gm IV X1 PRN; Protocol PRN Reason: Hypoglycemia Last Admin: 07/30/17 04:45 Dose: 25 gm Fluticasone Propionate (Flonase Nasal [place]) 1 spray NASAL DAILY [facility]PLAC[facility] Last Admin: 07/30/17 09:18 Dose: 1 spray Furosemide (Lasix) 80 mg PO BID [facility] Last Admin: 07/30/17 09:19 Dose: 80 mg Glucagon () 1 mg IM .X1 PRN PRN Reason: Hypoglycemia Heparin Sodium (Porcine) () 5,000 units SC BID [facility]PL[facility] Last Admin: 07/30/17 09:17 Dose: 5,000 units Hydralazine HCl (Apresoline) 10 mg IV Q4H PRN PRN PRN Reason: SBP > 160 Cefepime HCl 2 gm/ Sodium (Chloride) 100 mls @ 200 mls/hr IV Q12 REPL[facility] Last Admin: 07/30/17 09:17 Dose: 200 mls/hr Insulin Aspart (Novolog Flexpen ([facility])) 10 units SC TIDAC REPLACED BY [facility] Last Admin: 07/30/17 17:15 Dose: 10 u Insulin Detemir (Levemir ([facility])) 60 units SC BID REPLACED BY [facility] Last Admin: 07/30/17 09:21 Dose: 60 u Levothyroxine Sodium (Synthroid) 200 mcg PO DAILY@0600 REPLACED BY [facility] Last Admin: 07/30/17 05:49 Dose: 200 mcg Linaclotide (Linzess) 145 mcg PO DAILY REPLACED BY [facility] Last Admin: 07/29/17 09:20 Dose: 145 mcg Magnesium Hydroxide (Milk Of Magnesia) 30 ml PO DAILY PRN PRN Reason: Constipation Metoprolol Tartrate (Lopressor (Beta Adonis)) 100 mg PO BID REPLACED BY [facility] Last Admin: 07/30/17 09:20 Dose: 100 mg Metronidazole (Flagyl) 500 mg PO TID REPLACED BY [facility] Last Admin: 07/30/17 14:49 Dose: 500 mg Montelukast Sodium (Singulair) 10 mg PO DAILY REPLACED BY [facility] Last Admin: 07/30/17 09:20 Dose: 10 mg Ondansetron HCl (Zofran) 4 mg IV Q8H PRN PRN PRN Reason: NAUSEA Polyethylene Glycol (Miralax) 17 gm PO DAILY REPLACED BY [facility] Last Admin: 07/30/17 09:20 Dose: 17 gm Polyethylene Glycol (Miralax) 17 gm PO DAILY PRN PRN PRN Reason: CONSTIPATION Polysaccharide Iron Complex (Ferrex 150) [facility] Last Admin: 07/30/17 09:18 Dose: 150 mg Sodium Chloride () 5 - 30 ml IV UD PRN PRN Reason: SALINE FLUSH Last Admin: 07/28/17 16:39 Dose: 10 ml Assessment/Plan Active and Suspected Problems Cellulitis of right foot (Acute) Severe sepsis (Acute) 1. Osteomyelitis R 5th metatarsal and osteo of L foot stump; continue antibiotic therapy and surgical intervention by podiatry pending. 2. PVD s/p angioplasty 3. Bilateral lower extremity venostasis with venostasis dermatitis;will keep legs elevated, skin care. 4. Diabetes type 2; Levemir and regular insulin sliding scale. 5. CKD stage III; avoid potentially nephrotoxic medications. 6.. Hypothyroidism; he is on Synthroid. 7. Hypertension; continue current medications without change. 7. DVT prophylaxis with SC Heparin. Code Visit Inpatient E&M: 45180 Subs Hosp L2
[2017-07-30] MEDS: Atorvastatin Calcium 80 MG Tablet PO (21:03)
--- NOTE | 2017-07-30 21:50 | PN_ITS ---
Patient Problems: Active and Suspected Problems Cellulitis of right foot (Acute) Severe sepsis (Acute) Subjective: This 67-year-old male with multiple comorbidities including diabetes and peripheral vascular disease seen bedside this evening for bilateral foot ulcers with related osteomyelitis. He denies fever, chill, nausea, vomiting. He has been on IV antibiotics and he has stabilized over the past couple of days. It is noted he had a vascular surgery with Dr. Redding on July 25 and he has been on IV antibiotics as well. - Physical Exam General: Alert, Oriented x3, Cooperative Extremities: Capillary Refill Less than 3 Seconds, No Calf Tenderness - negative tre and villagomez bilateral, Diminished Peripheral Pulses, Edema - +2 bilateral lower extremities, - - left transmetatarsal amputation Skin: Ulcer/ Wound - sub 5th metatarsal head ulcer right foot and left sub 1st metatarsal resection shaft granular based ulcer. erythema to dorsal foot bilateral and hyperpigmentation/erythema and atrophic skin to anterior bilateral legs. no purulence on expression or odor. probe to deeper capsular area and no visualized bone. Musculoskeletal: No Tenderness to Palpation of Joints or Extremities, Muscle Wasting Neurological: - - Lack of epicritic sensation light touch bilateral lower extremities Psych/Mental Status: Normal Affect Vital Signs Temp Pulse Resp BP Pulse Ox 97.7 F L 67 18 129/62 H 94 07/30/17 20:45 07/30/17 21:02 07/30/17 20:45 07/30/17 20:45 07/30/17 20:45 Oxygen Flow Rate 2 Oxygen Delivery Method Room Air Weight: 101.5 kg Body Mass Index (BMI) 31.1 Intake and Output for Last 24 Hours 07/28/17 07/29/17 07/30/17 23:59 23:59 23:59 Intake Total 4190 / 4190 1650 / 1650 1789 / 1789 Output Total 2600 / 2600 2500 / 2500 1050 / 1050 Balance 1590 / 1590 -850 / -850 739 / 739 Microbiology Past 72 Hours 07/27/17 22:12 Gram Stain - Final Wound - Right Foot Wound Culture - Final Serratia marcescens Corynebacterium striatum Anaerobic Culture - Preliminary Checking for anaerobes, further studies to follow. 07/28/17 05:33 Urine Culture - Final Urine, Clean Catch Culture exhibits no growth. Laboratory Tests Past 24 Hrs 07/30/17 07/30/17 05:20 05:20 WBC 8.6 RBC 5.01 Hgb 14.7 Hct 44.3 MCV 88.4 MCH 29.3 MCHC 33.2 RDW 14.7 H RDW Differential 47.2 H Plt Count 274 MPV 10.2 Immature Gran % (Auto) 0.400 Neut % (Auto) 83.1 H Lymph % (Auto) 8.3 L [place] % (Auto) 6.4 Eos % (Auto) 1.3 Baso % (Auto) 0.5 Absolute Neuts (auto) 7.1 Absolute Lymphs (auto) 0.71 L Total Counted Not Reportable Sodium 137 Potassium 4.4 Chloride 100 Carbon Dioxide 31.0 Anion Gap 6 BUN 30 H Creatinine 1.31 H Estim Creat Clear Calc 59.88 Est GFR (MDRD) Af Amer 71 Est GFR (MDRD) Non-Af 58 L BUN/Creatinine Ratio 22.9 H Glucose 140 H Calcium 8.9 POC Glucose 07/30/17 07/30/17 07/30/17 17:13 12:25 06:55 POC Glucose 198 H 193 H 116 H 07/29/17 21:51 POC Glucose 172 H Assessment/Plan Active and Suspected Problems Cellulitis of right foot (Acute) Severe sepsis (Acute) Right sub-fifth metatarsal head ulcer with adjacent fifth metatarsal and digit osteomyelitis; Calvin grade 3 Left sub-first metatarsal stump with adjacent first metatarsal osteomyelitis; Calvin grade 3 Diabetes with neuropathy Peripheral vascular disease status post recent left popliteal restent Lower extremity edema Significant delayed healing Other comorbidities I reviewed and discussed the case with Mr. Waller this evening. His diagnostic data was reviewed. It is noted he has an ESR of 17, no leukocytosis, and a C- reactive protein of 103 a couple of days ago. His vital signs are stable this evening. Bilateral foot MRIs reveal osteomyelitis of the right fifth metatarsal head and a localized manner and also to the adjacent proximal phalanx base of the fifth digit. The left foot MRI demonstrates osteomyelitis to the plantar margin distal aspect of the remaining first metatarsal adjacent to the ulcer site as well. There are no additional abscesses or acute osseous destruction noted. His wound cultures demonstrate Serratia marcescens and Corynebacterium stratum. Infectious disease is on consultation and care is greatly appreciated. It is noted he continues on cefepime and Flagyl at this time. I recommend surgical excision of the osteomyelitis sites including a right fifth ray resection and resection of part of the remaining first metatarsal of the left foot with bone biopsies. This is tentatively scheduled for tomorrow afternoon at 3 PM pending medical clearance from the primary team. I would also like to review if there is any vascular surgery procedure options for the right lower extremity in addition to the recently performed left lower extremity procedure. The preoperative indications, planned procedure, possible benefits, risks, complications, and anticipated healing time and management were discussed in detail with the patient. He understands and elects to proceed with surgery at this time. Surgical consents will need to be signed. He will be n.p.o. 6 hours prior to the tentative surgical time of 3 PM tomorrow. His heparin and aspirin will be held tomorrow morning. I recommend he continues on Plavix due to his recent stent placement to maintain patency. Also recommend holding all of his morning medications unless indicated otherwise by the primary team. His glucose will be monitored closely preoperatively. I answered all his questions. Please not hesitate to call if you have any questions. He understands he is still at high risk for additional limb loss due to his current condition and comorbidities. aMrgaret Thomas, [facility] [phone]
[2017-07-30 23:26] LABS: Bedside Glucose 194 mg/dL (70-110)
[2017-07-31] VITALS (16 sets, daily range): BP systolic 120–166; BP diastolic 50–69; PULSE 57–76; RESP 16–18; TEMP 35.8–37.1; O2SAT 92–99; BMI 31.1
[2017-07-31] MEDS: 0.9% NaCl Peripheral Flush Adult/Peds IV (05:16)
[2017-07-31] MEDS: Levothyroxine 100 MCG Tablet 200 MCG PO (05:48)
[2017-07-31] MEDS: metroNIDAZOLE 500 MG Tablet PO ×2 (05:48→18:20)
[2017-07-31] MEDS: Baclofen 10 MG Tablet PO ×2 (05:48→18:20)
[2017-07-31 06:38] LABS: Absolute Lymphocyte Count 1.51 X10^3/ul (0.83-4.51); Absolute Neutrophil Count 4.6 X10^3/uL (2.0-7.7); Basophil# 0.07 X10^3/uL; Eosinophil# 0.29 X10^3/uL; Eosinophils% 4.1 % (0-5); Hematocrit 43.1 % (40-54); Hemoglobin 14.3 g/dl (13.0-16.5); Lymphocyte # 1.51 X10^3/ul (4.0); Lymphocyte % 21.1 % (19-41); Mean Corp Hgb Conc 33.2 g/gl (32-36); Mean Corpuscular Hgb 29.2 pg (27.0-32.0); Mean Platelet Vol. 10.3 fl (6.2-12.0); Monocyte# 0.67 X10^3/uL; Monocyte% 9.4 % (0-10); Neutrophil # 4.57 X10^3/uL (2.7-7.7); Platelet Count 294 K/mm3 (150-450); RBC Distribution Width CV 14.8 % (11.6-14.6); White Blood Count 7.1 K/mm3 (4.4-11.0)
[2017-07-31 06:46] LABS: POSITIVE COUNT NO; POSITIVE DIFFERENTIAL NO; POSITIVE MORPHOLOGY NO
[2017-07-31 06:50] LABS: Bedside Glucose 186 mg/dL (70-110)
[2017-07-31 07:00] LABS: Anion Gap 7 (5-15); BUN 32 mg/dL (7-18); BUN/Creat Ratio 25.4 RATIO (10-20); Calcium,Total 8.6 mg/dL (8.5-10.1); Chloride 101 mmol/L (98-107); Creatinine, Serum 1.26 mg/dL (0.70-1.30); EST Glomerular Filtration Rate 61 mL/min (>60); Est Glom Filt Rate - Afr Amer 74 mL/min (>60); Estimated Creatinine Clearance 62.25 ml/min; Glucose 196 mg/dL (74-106); Potassium 4.1 mmol/L (3.5-5.1); Sodium Level 136 mmol/L (136-145); Thyroid Stim Hormone (TSH) 1.58 uIU/mL (0.358-3.74)
[2017-07-31 08:07] LABS: Hemoglobin A1c 9.7 % (4.2-6.3)
[2017-07-31] MEDS: Furosemide 80 MG Tablet PO ×2 (09:26→22:07)
[2017-07-31] MEDS: Fluticasone 0.05% 1 SPRAY NASAL.SRY NASAL (09:26)
[2017-07-31] MEDS: LINACLOTIDE 145 MCG CAPSULE PO (09:27)
[2017-07-31] MEDS: Metoprolol Tartrate 100 MG Tablet PO ×2 (09:27→22:08)
[2017-07-31] MEDS: Iron Polysaccharide Complex 150 MG CAPSULE PO (09:32)
[2017-07-31] MEDS: Polyethylene Glycol 3350 17 GM PACKET PO (09:33)
[2017-07-31] MEDS: Montelukast 10 MG Tablet PO (09:33)
[2017-07-31] MEDS: Clopidogrel Bisulfate 75 MG Tablet PO (09:56)
[2017-07-31 10:51] LABS: Bedside Glucose 19 mg/dL (70-110)
--- NOTE | 2017-07-31 11:04 | PN.ID_ITS ---
Patient Problems: Active and Suspected Problems Cellulitis of right foot (Acute) Severe sepsis (Acute) Subjective: Feeling ok, no fever, no n/v/d. - Physical Exam General: Alert, Cooperative, No apparent distress Lungs: Clear to auscultation, Normal air movement Cardiovascular: Regular rate, Regular Rhythm Abdomen: Soft, Non Tender, Obese Skin: Ulcer/ Wound - bilat feet wrapped, Rash Present Vital Signs Temp Pulse Resp BP Pulse Ox 96.8 F L 70 16 166/69 H 93 07/31/17 09:14 07/31/17 09:27 07/31/17 09:14 07/31/17 09:14 07/31/17 09:14 Oxygen Flow Rate 2 Oxygen Delivery Method Room Air Weight: 101.5 kg Body Mass Index (BMI) 31.1 Intake and Output for Last 24 Hours 07/29/17 07/30/17 07/31/17 23:59 23:59 23:59 Intake Total 1650 / 1650 2174 / 2174 Output Total 2500 / 2500 2550 / 2550 725 / 725 Balance -850 / -850 -376 / -376 -725 / -725 Microbiology Past 72 Hours 07/27/17 22:12 Gram Stain - Final Wound - Right Foot Wound Culture - Final Serratia marcescens Corynebacterium striatum Anaerobic Culture - Preliminary Checking for anaerobes, further studies to follow. 07/28/17 05:33 Urine Culture - Final Urine, Clean Catch Culture exhibits no growth. Laboratory Tests Past 24 Hrs 07/31/17 07/31/17 07/31/17 05:53 05:53 05:53 WBC 7.1 RBC 4.90 Hgb 14.3 Hct 43.1 MCV 88.0 MCH 29.2 MCHC 33.2 RDW 14.8 H RDW Differential 47.0 H Plt Count 294 MPV 10.3 Immature Gran % (Auto) 0.400 Neut % (Auto) 64.0 Lymph % (Auto) 21.1 [place] % (Auto) 9.4 Eos % (Auto) 4.1 Baso % (Auto) 1.0 Absolute Neuts (auto) 4.6 Absolute Lymphs (auto) 1.51 Total Counted Not Reportable Sodium 136 Potassium 4.1 Chloride 101 Carbon Dioxide 28.0 Anion Gap 7 BUN 32 H Creatinine 1.26 Estim Creat Clear Calc 62.25 Est GFR (MDRD) Af Amer 74 Est GFR (MDRD) Non-Af 61 BUN/Creatinine Ratio 25.4 H Glucose 196 H Hemoglobin A1c 9.7 H Calcium 8.6 TSH 1.58 POC Glucose 07/31/17 07/30/17 07/30/17 06:44 21:11 17:13 POC Glucose 186 H 194 H 198 H 07/30/17 07/30/17 12:25 04:40 POC Glucose 193 H 19 L* Route of nutrition/ use of supplements: [] Nutritional Intake: [] IV Site: [] Meng Catheter: [] - Assessment/Plan Antibiotics: [] Assessment/Plan: [] Active and Suspected Problems Non-pressure chronic ulcer of other part of left foot with fat layer exposed ( Acute) Non-pressure chronic ulcer of other part of right foot with fat layer exposed ( Acute) PAD (peripheral artery disease) (Acute) Diabetes mellitus with neuropathy (Acute) Cellulitis of left foot (Acute) Cellulitis of right foot (Acute) Severe sepsis (Acute) Bilat foot DM osteomyelitis with PVD - recent angioplasty. MRI shows R 5th metatarsal and toe osteo as well as osteo of L foot stump. Surg debridement/ resection planned. Cont cefepime, flagyl. ESR is normal. Wound cx with serratia and corynebacterium. Redness around shins seems more consistent with chronic venous stasis at this point. D/w Dr. Thomas, will follow.
--- NOTE | 2017-07-31 11:37 | NURSING ---
wound photo: left plantar foot
--- NOTE | 2017-07-31 11:38 | NURSING ---
wound photo: left foot (dorsal view to assess redness)
--- NOTE | 2017-07-31 11:38 | NURSING ---
wound photo: right plantar foot
--- NOTE | 2017-07-31 11:39 | NURSING ---
wound photo: right foot (dorsal/lateral view to assess redness)
[2017-07-31 11:46] LABS: Bedside Glucose 234 mg/dL (70-110)
[2017-07-31 11:51] LABS: Bedside Glucose 105 mg/dL (70-110)
--- NOTE | 2017-07-31 13:20 | CASEMGMT ---
SW reviewed chart and noted therapy is recommending SNF. Therapist also told SW that patient is agreeable to going somewhere. SW went to patient's room to talk with him about where he would like to go and he was sleeping and would not wake to SW saying his name. SW will check back with patient. Yas SCOTT MSW
--- NOTE | 2017-07-31 15:00 | BON_PTH ---
PATIENT: VANDANA ALCANTAR LOC: [facility] U#:[id number] AGE/SX: 67/M ROOM: [facility] RE07/27/[address]: Reggie Persaud MD : [id number] BED: 1 DIS: 08/03/2017 SPEC #: [id number] RECD: 08/01/17 14:56 STATUS: NOY REQ #: [id number] POLLY: 07/31/17 15:[address]: Margaret Thomas DEPT: SURGICAL PATHOLOGY RECD BY: Salty Jade ENTERED: 08/01/17 14:57 SP TYPE: Bone OTHR DR: DO Reggie Echols MD Dr. Michael Jack, DPM MD Dr. Johnathan Ledbetter Chi, MD Tissues: A - Bone of foot, NOS B - Bone of foot, NOS C - Bone of foot, NOS D - Bone of foot, NOS Procedures: Decalcification bone/plaque Special Stain Group I Surgery Specimen Level III Surgery Specimen Level IV AFB Stain (control) GMS Stain (control) Comments: @ Ordering doctor for DEC edited from to @ by BEBO at 08/01/17 1534 @ Ordering doctor for SUIII edited from to @ by BEBO at 08/01/17 1534 @ Submitting doctor edited from to @ by BEBO at 08/01/17 1533 HEADER OPERATION: Foot, fifth metatarsal, ray resection, left foot bone biopsy PRE-OP DIAGNOSIS: Osteomyelitis bilateral feet TISSUE SUBMITTED: A ? Right metatarsal bone, B ? Left bone foot, C ? Left bone clearance fragment, D ? Right bone clearance fragment MICROSCOPIC DIAGNOSIS A. Right metatarsal bone and toe: Focal ulceration, acute inflammation and granulation tissue reaction. Special stains for acid fast bacilli and fungi are negative for organisms; matched controls are appropriate. Bone, negative for acute osteomyelitis. B. Left foot bone: Chronic inflammation and reactive changes. Bone, negative for acute osteomyelitis. C. Left bone, clearance fragment: Pieces of bone, negative for acute osteomyelitis. D. Right bone, clearance fragment: A piece of bone, negative for acute osteomyelitis. SJ:uma 08/09/17 MICROSCOPIC DESCRIPTION Slides are reviewed. GROSS DESCRIPTION A - Received in fixative is one container labeled with the patient's name and designated right metatarsal bone. The specimen consists of a distal toe with skin, nail and bone measuring 4.5 x 2.5 x 2 cm. Also present in the specimen container is a separate fragment of bone measuring 2.5 x 1.5 x 1 cm. Also present in the specimen container is an irregular fragment of skin with attached soft tissue measuring 3 x 1.5 x 0.6 cm and contains a central hole/defect. The segment with toe is grossly unremarkable. [employer] sections from all fragments are submitted in two cassettes as follows: 1 ? skin, 2 ? distal toe and separate fragment of bone after decalcification. B - Received in fixative is one container labeled with the patient's name and designated left bone foot. The specimen consists of multiple irregular fragments of dark her bone ranging in size from 0.5 to 2.5 cm. Also present in the specimen container is an irregular fragment of skin measuring 2.8 x 1.5 x 0.8 cm. U[employer] sections are submitted in two cassettes as follows: 1 ? skin and soft tissue, 2 ? bone after decalcification. C - Received in fixative is one container labeled with the patient's name and designated left bone clearance fragment. The specimen consists of two irregular fragments dark her bone that in aggregate measure 1.5 x 1.3 x 0.2 cm. The specimen is totally submitted in one cassette after decalcification. D - Received in fixative is one container labeled with the patient's name and designated right bone clearance fragment. The specimen consists of an irregular fragment of dark her bone measuring 1.5 x 0.6 x 0.2 cm. The specimen is totally submitted in one cassette after decalcification. / AM:uma 08/01/17 TC:2 CPT: 70832, 89473 x3, 88660 x2, 94943 x4
--- NOTE | 2017-07-31 15:00 | RAD_ITS ---
STUDY: Fluoroscopy- RIGHT FOOT CLINICAL: Male, 67 years old. Resection fifth metatarsal TECHNIQUE: 2 view(s) of the foot. COMPARISON: None. FINDINGS: There are limited 2 images provided. There is a soft tissue defect and visualization of an amputated fifth digit at the fifth metatarsal. RAD/Foot 2 Views IMPRESSION: Post resection. Fifth Metatarsal. Electronically Signed: Jaqui Ga MD at 17:05 EST Tel , Service support ,
[2017-07-31] MEDS: Bupivacaine 0.25% 30 ML Vial (15:20)
--- NOTE | 2017-07-31 15:49 | PCM.PN.HOSP ---
Patient Problems: Active and Suspected Problems Cellulitis of right foot (Acute) Severe sepsis (Acute) Subjective: CC: Bilateral leg infection, diarrhea Patient is to undergoes debridement, he reports diarrhea today, he denies any fever or chills. Vitals/I&O's: Vital Signs Temp Pulse Resp BP Pulse Ox 96.8 F L 64 16 166/69 H 93 07/31/17 09:14 07/31/17 11:24 07/31/17 09:14 07/31/17 09:14 07/31/17 09:14 Oxygen Flow Rate 2 Oxygen Delivery Method Room Air Weight: 101.5 kg Body Mass Index (BMI) 31.1 Intake and Output for Last 24 Hours 07/29/17 07/30/17 07/31/17 23:59 23:59 23:59 Intake Total 1650 / 1650 2174 / 2174 639 / 639 Output Total 2500 / 2500 2550 / 2550 1325 / 1325 Balance -850 / -850 -376 / -376 -686 / -686 General: Alert, Oriented x3 Neck: Supple Lungs: Clear to auscultation Cardiovascular: Regular rate, Normal S1, Normal S2 Abdomen: Bowel Sounds Present, Soft, Non Tender, Non-Distended Extremities: No clubbing, No edema Neurological: Cranial nerves II-XII grossly intact, Motor Exam 5/5 strength throughout Microbiology Past 72 Hours 07/27/17 22:12 Wound - Right Foot Gram Stain - Final 07/27/17 22:12 Wound - Right Foot Wound Culture - Final Serratia marcescens Corynebacterium striatum 07/27/17 22:12 Wound - Right Foot Anaerobic Culture - Preliminary Checking for anaerobes, further studies to follow. 07/28/17 05:33 Urine, Clean Catch Urine Culture - Final Culture exhibits no growth. Laboratory Results 07/30/17 04:40: POC Glucose 19 L* 07/30/17 04:51: POC Glucose 105 07/30/17 17:13: POC Glucose 198 H 07/30/17 21:11: POC Glucose 194 H 07/31/17 05:53: WBC 7.1, RBC 4.90, Hgb 14.3, Hct 43.1, MCV 88.0, MCH 29.2, MCHC 33.2, RDW 14.8 H, RDW Differential 47.0 H, Plt Count 294, MPV 10.3, Immature Gran % (Auto) 0.400, Neut % (Auto) 64.0, Lymph % (Auto) 21.1, [place] % (Auto) 9.4, Eos % (Auto) 4.1, Baso % (Auto) 1.0, Absolute Neuts (auto) 4.6, Absolute Lymphs (auto) 1.51, Total Counted Not Reportable 07/31/17 05:53: Sodium 136, Potassium 4.1, Chloride 101, Carbon Dioxide 28.0, Anion Gap 7, BUN 32 H, Creatinine 1.26, Estim Creat Clear Calc 62.25, Est GFR (MDRD) Af Amer 74, Est GFR (MDRD) Non-Af 61, BUN/Creatinine Ratio 25.4 H, Glucose 196 H, Calcium 8.6, TSH 1.58 07/31/17 05:53: Hemoglobin A1c 9.7 H 07/31/17 06:44: POC Glucose 186 H 07/31/17 11:41: POC Glucose 234 H Current Medications Acetaminophen (Tylenol) 650 mg PO Q6H PRN PRN PRN Reason: Mild Pain (1-3)/Temp > 100.7 F Last Admin: 07/27/17 22:33 Dose: 650 mg Hydrocodone Bitart/Acetaminophen ([place] 5mg-325mg) 1 - 2 tablet PO Q6H PRN PRN PRN Reason: Moderate-severe pain Aspirin (Aspirin, Baby) 81 mg PO DAILY@0800 [facility] Last Admin: 07/31/17 00:14 Dose: Not Given Atorvastatin Calcium (Lipitor) 80 mg PO QHS [facility] Last Admin: 07/30/17 21:03 Dose: 80 mg Baclofen (Lioresal) 10 mg PO TID [facility] Last Admin: 07/31/17 05:48 Dose: 10 mg Clopidogrel Bisulfate (Plavix) 75 mg PO DAILY [facility] Last Admin: 07/31/17 09:56 Dose: 75 mg Dextrose (D50w Syringe) 0 gm IV X1 PRN; Protocol PRN Reason: Hypoglycemia Last Admin: 07/30/17 04:45 Dose: 25 gm Fluticasone Propionate (Flonase Nasal [place]) 1 spray NASAL DAILY [facility] Last Admin: 07/31/17 09:26 Dose: 1 spray Furosemide (Lasix) 80 mg PO BID [facility] Last Admin: 07/31/17 09:26 Dose: 80 mg Glucagon () 1 mg IM .X1 PRN PRN Reason: Hypoglycemia Heparin Sodium (Porcine) () 5,000 units SC BID [facility] Last Admin: 07/30/17 21:03 Dose: 5,000 units Hydralazine HCl (Apresoline) 10 mg IV Q4H PRN PRN PRN Reason: SBP > 160 Cefepime HCl 2 gm/ Sodium (Chloride) 100 mls @ 200 mls/hr IV Q12 [facility] Last Admin: 07/31/17 09:33 Dose: 200 mls/hr Insulin Aspart (Novolog Flexpen ([facility])) 10 units SC TIDAC [facility] Last Admin: 07/31/17 11:32 Dose: Not Given Insulin Detemir (Levemir ([facility])) 60 units SC BID [facility] Last Admin: 07/31/17 09:26 Dose: 60 u Levothyroxine Sodium (Synthroid) 200 mcg PO DAILY@0600 [facility] Last Admin: 07/31/17 05:48 Dose: 200 mcg Linaclotide (Linzess) 145 mcg PO DAILY [facility] Last Admin: 07/31/17 09:27 Dose: 145 mcg Magnesium Hydroxide (Milk Of Magnesia) 30 ml PO DAILY PRN PRN Reason: Constipation Metoprolol Tartrate (Lopressor (Beta Adonis)) 100 mg PO BID [facility] Last Admin: 07/31/17 09:27 Dose: 100 mg Metronidazole (Flagyl) 500 mg PO TID [facility] Last Admin: 07/31/17 05:48 Dose: 500 mg Montelukast Sodium (Singulair) 10 mg PO DAILY [facility] Last Admin: 07/31/17 09:33 Dose: 10 mg Ondansetron HCl (Zofran) 4 mg IV Q8H PRN PRN PRN Reason: NAUSEA Polyethylene Glycol (Miralax) 17 gm PO DAILY [facility] Last Admin: 07/31/17 09:33 Dose: 17 gm Polyethylene Glycol (Miralax) 17 gm PO DAILY PRN PRN PRN Reason: CONSTIPATION Polysaccharide Iron Complex (Ferrex 150) 150 mg PO DAILYCM [facility] Last Admin: 07/31/17 09:32 Dose: 150 mg Sodium Chloride () 5 - 30 ml IV UD PRN PRN Reason: SALINE FLUSH Last Admin: 07/31/17 05:16 Dose: 10 ml Assessment/Plan Active and Suspected Problems Cellulitis of right foot (Acute) Severe sepsis (Acute) 1. Osteomyelitis R 5th metatarsal and osteo of L foot stump; patient with undergo surgical intervention today, continue IV cefepime and Flagyl. 2. PVD s/p angioplasty 3. 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 4. Diabetes type 2; he is on Levemir and regular insulin sliding scale. 5. CKD stage III; avoid potentially nephrotoxic medications. 6. Hypothyroidism; he is on Synthroid. 7. Hypertension; continue current medications without change. 8. Diarrhea; will obtain stool for C. difficile. 9. DVT prophylaxis with SC Heparin.
--- NOTE | 2017-07-31 15:52 | PN_ITS ---
Patient Problems: Active and Suspected Problems Cellulitis of right foot (Acute) Severe sepsis (Acute) Subjective: CC: Bilateral leg infection, diarrhea Patient is to undergoes debridement, he reports diarrhea today, he denies any fever or chills. Vitals/I&O's: Vital Signs Temp Pulse Resp BP Pulse Ox 96.8 F L 64 16 166/69 H 93 07/31/17 09:14 07/31/17 11:24 07/31/17 09:14 07/31/17 09:14 07/31/17 09:14 Oxygen Flow Rate 2 Oxygen Delivery Method Room Air Weight: 101.5 kg Body Mass Index (BMI) 31.1 Intake and Output for Last 24 Hours 07/29/17 07/30/17 07/31/17 23:59 23:59 23:59 Intake Total 1650 / 1650 2174 / 2174 639 / 639 Output Total 2500 / 2500 2550 / 2550 1325 / 1325 Balance -850 / -850 -376 / -376 -686 / -686 General: Alert, Oriented x3 Neck: Supple Lungs: Clear to auscultation Cardiovascular: Regular rate, Normal S1, Normal S2 Abdomen: Bowel Sounds Present, Soft, Non Tender, Non-Distended Extremities: No clubbing, No edema Neurological: Cranial nerves II-XII grossly intact, Motor Exam 5/5 strength throughout Microbiology Past 72 Hours 07/27/17 22:12 Wound - Right Foot Gram Stain - Final 07/27/17 22:12 Wound - Right Foot Wound Culture - Final Serratia marcescens Corynebacterium striatum 07/27/17 22:12 Wound - Right Foot Anaerobic Culture - Preliminary Checking for anaerobes, further studies to follow. 07/28/17 05:33 Urine, Clean Catch Urine Culture - Final Culture exhibits no growth. Laboratory Results 07/30/17 04:40: POC Glucose 19 L* 07/30/17 04:51: POC Glucose 105 07/30/17 17:13: POC Glucose 198 H 07/30/17 21:11: POC Glucose 194 H 07/31/17 05:53: WBC 7.1, RBC 4.90, Hgb 14.3, Hct 43.1, MCV 88.0, MCH 29.2, MCHC 33.2, RDW 14.8 H, RDW Differential 47.0 H, Plt Count 294, MPV 10.3, Immature Gran % (Auto) 0.400, Neut % (Auto) 64.0, Lymph % (Auto) 21.1, Mower % (Auto) 9.4 , Eos % (Auto) 4.1, Baso % (Auto) 1.0, Absolute Neuts (auto) 4.6, Absolute Lymphs (auto) 1.51, Total Counted Not Reportable 07/31/17 05:53: Sodium 136, Potassium 4.1, Chloride 101, Carbon Dioxide 28.0, Anion Gap 7, BUN 32 H, Creatinine 1.26, Estim Creat Clear Calc 62.25, Est GFR ( MDRD) Af Amer 74, Est GFR (MDRD) Non-Af 61, BUN/Creatinine Ratio 25.4 H, Glucose 196 H, Calcium 8.6, TSH 1.58 07/31/17 05:53: Hemoglobin A1c 9.7 H 07/31/17 06:44: POC Glucose 186 H 07/31/17 11:41: POC Glucose 234 H Current Medications Acetaminophen (Tylenol) 650 mg PO Q6H PRN PRN PRN Reason: Mild Pain (1-3)/Temp > 100.7 F Last Admin: 07/27/17 22:33 Dose: 650 mg Hydrocodone Bitart/Acetaminophen ([place] 5mg-325mg) 1 - 2 tablet PO Q6H PRN PRN PRN Reason: Moderate-severe pain Aspirin (Aspirin, Baby) 81 mg PO DAILY@0800 [facility] Last Admin: 07/31/17 00:14 Dose: Not Given Atorvastatin Calcium (Lipitor) 80 mg PO QHS [facility] Last Admin: 07/30/17 21:03 Dose: 80 mg Baclofen (Lioresal) 10 mg PO TID [facility] Last Admin: 07/31/17 05:48 Dose: 10 mg Clopidogrel Bisulfate (Plavix) 75 mg PO DAILY [facility] Last Admin: 07/31/17 09:56 Dose: 75 mg Dextrose (D50w Syringe) 0 gm IV X1 PRN; Protocol PRN Reason: Hypoglycemia Last Admin: 07/30/17 04:45 Dose: 25 gm Fluticasone Propionate (Flonase Nasal [place]) 1 spray NASAL DAILY [facility] Last Admin: 07/31/17 09:26 Dose: 1 spray Furosemide (Lasix) 80 mg PO BID [facility] Last Admin: 07/31/17 09:26 Dose: 80 mg Glucagon () 1 mg IM .X1 PRN PRN Reason: Hypoglycemia Heparin Sodium (Porcine) () 5,000 units SC BID [facility] Last Admin: 07/30/17 21:03 Dose: 5,000 units Hydralazine HCl (Apresoline) 10 mg IV Q4H PRN PRN PRN Reason: SBP > 160 Cefepime HCl 2 gm/ Sodium (Chloride) 100 mls @ 200 mls/hr IV Q12 [facility] Last Admin: 07/31/17 09:33 Dose: 200 mls/hr Insulin Aspart (Novolog Flexpen ([facility])) 10 units SC TIDAC [facility] Last Admin: 07/31/17 11:32 Dose: Not Given Insulin Detemir (Levemir ([facility])) 60 units SC BID [facility] Last Admin: 07/31/17 09:26 Dose: 60 u Levothyroxine Sodium (Synthroid) 200 mcg PO DAILY@0600 [facility] Last Admin: 07/31/17 05:48 Dose: 200 mcg Linaclotide (Linzess) 145 mcg PO DAILY [facility] Last Admin: 07/31/17 09:27 Dose: 145 mcg Magnesium Hydroxide (Milk Of Magnesia) 30 ml PO DAILY PRN PRN Reason: Constipation Metoprolol Tartrate (Lopressor (Beta Adonis)) 100 mg PO BID [facility] Last Admin: 07/31/17 09:27 Dose: 100 mg Metronidazole (Flagyl) 500 mg PO TID [facility] Last Admin: 07/31/17 05:48 Dose: 500 mg Montelukast Sodium (Singulair) 10 mg PO DAILY [facility] Last Admin: 07/31/17 09:33 Dose: 10 mg Ondansetron HCl (Zofran) 4 mg IV Q8H PRN PRN PRN Reason: NAUSEA Polyethylene Glycol (Miralax) 17 gm PO DAILY [facility] Last Admin: 07/31/17 09:33 Dose: 17 gm Polyethylene Glycol (Miralax) 17 gm PO DAILY PRN PRN PRN Reason: CONSTIPATION Polysaccharide Iron Complex (Ferrex 150) 150 mg PO DAILYCM [facility] Last Admin: 07/31/17 09:32 Dose: 150 mg Sodium Chloride () 5 - 30 ml IV UD PRN PRN Reason: SALINE FLUSH Last Admin: 07/31/17 05:16 Dose: 10 ml Assessment/Plan Active and Suspected Problems Cellulitis of right foot (Acute) Severe sepsis (Acute) 1. Osteomyelitis R 5th metatarsal and osteo of L foot stump; patient with undergo surgical intervention today, continue IV cefepime and Flagyl. 2. PVD s/p angioplasty 3. 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 4. Diabetes type 2; he is on Levemir and regular insulin sliding scale. 5. CKD stage III; avoid potentially nephrotoxic medications. 6. Hypothyroidism; he is on Synthroid. 7. Hypertension; continue current medications without change. 8. Diarrhea; will obtain stool for C. difficile. 9. DVT prophylaxis with SC Heparin.
--- NOTE | 2017-07-31 17:12 | RAD_ITS ---
STUDY: X-RAY - LEFT FOOT CLINICAL: Male, 67 years old. Postop status post first ray resection TECHNIQUE: 4 view(s) of the foot. COMPARISON: 07/28/2017 FINDINGS: Additional resection performed along the first proximal metatarsal with postsurgical soft tissue changes. There is generalized osteopenia of the midfoot. Normal talus, calcaneus, and tarsal bones. Age-appropriate visualized subtalar, talonavicular, calcaneocuboid, tarsal and tarsometatarsal articulations. Amputation along the proximal first through fifth metatarsi. There is arteriosclerosis. RAD/Foot min 3 Views IMPRESSION: Additional resection along the first proximal phalanx with postsurgical changes. Electronically Signed: Cecilia Burgos MD at 0:25 EST , Service support ,
--- NOTE | 2017-07-31 17:13 | PCM.IMDPSTOP ---
Problem List (1) Osteomyelitis of left foot Status: Chronic (2) Non-pressure chronic ulcer of other part of left foot with fat layer exposed Status: Chronic (3) Non-pressure chronic ulcer of other part of right foot with fat layer exposed Status: Chronic (4) PAD (peripheral artery disease) Status: Chronic (5) Diabetes mellitus with neuropathy Status: Chronic Qualifiers: Diabetes mellitus type: type 2 (6) Delayed wound healing Status: Chronic Immediate Post-Op Note Date of Procedure: 07/31/17 Primary Surgeon/Physician: Margaret Thomas DPM labourers: none Pre-Operative Diagnosis: 1. Osteomyelitis of fifth metatarsal head and fifth toe proximal phalanx with adjacent delayed healing of chronic ulcer. 2. Osteomyelitis of distal remaining first metatarsal with adjacent delayed healing of chronic ulcer Post-Operative Diagnosis: 1. Osteomyelitis of fifth metatarsal head and fifth toe proximal phalanx with adjacent delayed healing of chronic ulcer. 2. Osteomyelitis of distal remaining first metatarsal with adjacent delayed healing of chronic ulcer Surgery/Procedure Performed:: 1. Right foot fifth ray resection with complex wound closure including bone biopsies. 2. Left foot revisional first ray resection including bone biopsies Description of Surgical Findings:: Hemostasis controlled No purulence after debridement and irrigation See detailed operation report The patient tolerated the procedure and anesthesia well. He was transferred to the PACU with vital signs stable and vascular status intact to bilateral lower extremities. He will be transferred to the progressive care unit upon continued stability. All postoperative orders were entered electronically. Infectious disease and vascular surgery are also on the case. I recommend care home facility placement to aid in healing. Postoperative x-rays were obtained intraoperative with right fifth ray resection and left revisional first ray resection noted. Estimated Blood Loss: 200 mL Specimen's removed: 1. Right foot excised bone sent to pathology. 2. Right foot excised bone sent to microbiology for aerobic, anaerobic, acid-fast, fungal. 3. Left foot excised bone sent to pathology. 4. Left foot excised bone sent to microbiology for aerobic, anaerobic, acid-fast, fungal Type of Anesthesia:: Local MAC - Pre operative: 17 cc of one-to-one mix of 1% lidocaine plain and 0.25% Marcaine plain administered in typical right fifth ray block fashion and proximal left first ray block fashion - Admit VTE Documentation VTE Present on Admission: No VTE Mechan Device Prophylaxis: Knee High SHERRILL Hose VTE Pharm Prophylaxis ordered?: Yes
--- NOTE | 2017-07-31 17:19 | OP.PN_ITS ---
Problem List (1) Osteomyelitis of left foot Status: Chronic (2) Non-pressure chronic ulcer of other part of left foot with fat layer exposed Status: Chronic (3) Non-pressure chronic ulcer of other part of right foot with fat layer exposed Status: Chronic (4) PAD (peripheral artery disease) Status: Chronic (5) Diabetes mellitus with neuropathy Status: Chronic Qualifiers: Diabetes mellitus type: type 2 (6) Delayed wound healing Status: Chronic Immediate Post-Op Note Date of Procedure: 07/31/17 Primary Surgeon/Physician: Margaret Thomas DPM litigation counsel: none Pre-Operative Diagnosis: 1. Osteomyelitis of fifth metatarsal head and fifth toe proximal phalanx with adjacent delayed healing of chronic ulcer. 2. Osteomyelitis of distal remaining first metatarsal with adjacent delayed healing of chronic ulcer Post-Operative Diagnosis: 1. Osteomyelitis of fifth metatarsal head and fifth toe proximal phalanx with adjacent delayed healing of chronic ulcer. 2. Osteomyelitis of distal remaining first metatarsal with adjacent delayed healing of chronic ulcer Surgery/Procedure Performed:: 1. Right foot fifth ray resection with complex wound closure including bone biopsies. 2. Left foot revisional first ray resection including bone biopsies Description of Surgical Findings:: Hemostasis controlled No purulence after debridement and irrigation See detailed operation report The patient tolerated the procedure and anesthesia well. He was transferred to the PACU with vital signs stable and vascular status intact to bilateral lower extremities. He will be transferred to the progressive care unit upon continued stability. All postoperative orders were entered electronically. Infectious disease and vascular surgery are also on the case. I recommend assisted facility placement to aid in healing. Postoperative x-rays were obtained intraoperative with right fifth ray resection and left revisional first ray resection noted. Estimated Blood Loss: 200 mL Specimen's removed: 1. Right foot excised bone sent to pathology. 2. Right foot excised bone sent to microbiology for aerobic, anaerobic, acid-fast, fungal. 3. Left foot excised bone sent to pathology. 4. Left foot excised bone sent to microbiology for aerobic, anaerobic, acid-fast, fungal Type of Anesthesia:: Local MAC - Pre operative: 17 cc of one-to-one mix of 1% lidocaine plain and 0.25% Marcaine plain administered in typical right fifth ray block fashion and proximal left first ray block fashion - Admit VTE Documentation VTE Present on Admission: No VTE Mechan Device Prophylaxis: Knee High SHERRILL Hose VTE Pharm Prophylaxis ordered?: Yes
--- NOTE | 2017-07-31 17:19 | PCM.OPRPT ---
Problem List (1) Osteomyelitis of right foot Status: Acute (2) Osteomyelitis of left foot Status: Chronic Qualifiers: Osteomyelitis type: subacute Qualified Code(s): M86.272 - Subacute osteomyelitis, left ankle and foot (3) 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 Osteomyelitis of fifth metatarsal head and fifth toe proximal phalanx with adjacent delayed healing of chronic ulcer. 2. Osteomyelitis of distal remaining first metatarsal with adjacent delayed healing of chronic ulcer Post-Operative Diagnosis: 1. Osteomyelitis of fifth metatarsal head and fifth toe proximal phalanx with adjacent delayed healing of chronic ulcer. 2. Osteomyelitis of distal remaining first metatarsal with adjacent delayed healing of chronic ulcer Surgery/Procedure Performed:: 1. Right foot fifth ray resection with complex wound closure including bone biopsies. 2. Left foot revisional first ray resection including bone biopsies Description of Surgical Findings:: Hemostasis: Anatomic dissection and electrocauterization. No tourniquet was utilized bilateral Materials: 2-0 Vicryl and 2-0 Prolene Complications: None fleshing machine operator: none Type of Anesthesia:: Local MAC - Pre operative: 17 cc of one-to-one mix of 1% lidocaine plain and 0.25% Marcaine plain administered in typical right fifth ray block fashion and proximal left first ray block fashion Specimen's removed: 1. Right foot excised bone sent to pathology. 2. Right foot excised bone sent to microbiology for aerobic, anaerobic, acid-fast, fungal. 3. Left foot excised bone sent to pathology. 4. Left foot excised bone sent to microbiology for aerobic, anaerobic, acid-fast, fungal Estimated Blood Loss (mL): 200 mL Description of Procedure: Indications: This 67-year-old male with significant past medical history of diabetes with neuropathy, sleep apnea, history of kidney injury, and other comorbidities has continued bilateral foot chronic nonhealing ulcers. Recently he had an exacerbation of bilateral foot and leg cellulitis. His x-rays, MRI, and diagnostic data were reviewed. Essentially the MRI demonstrated osteomyelitis focal at the right fifth metatarsal head as well as the adjacent proximal phalanx base. Osteomyelitis was also noted on the left foot distal plantar first metatarsal remaining shaft He had an ESR of 17 and no leukocytosis at the time of surgery. His erythema did demonstrate some decreased activity after being on IV antibiotics for a couple of days. Infectious disease is also on consultation and appreciated. He has failed other traditional wound care treatments including antibiotics, offloading, traditional wound care products, advanced stem cell derived tissue products, nutritional supplementation, and medical management. He is also well known to vascular surgery. He recently had a re-stent procedure for the left lower extremity at the popliteal area. I reviewed the case with Dr. Redding who does not identify a severe vascular compromise to the right lower extremity at this time. There is not a tentative recommended or planned vascular surgery for the right lower extremity. Therefore, this infection management surgical procedure was performed today. The preoperative indications, planned procedure, possible benefits, risks, complications, and anticipated healing time and management were discussed in detail the patient. He understands and elects to proceed with surgery at this time. No guarantees were made. He understands potential complications include but are not limited to the following: infection, swelling, pain, delayed or nonhealing, further infection, blood clot, loss of limb, function, life. The surgical limb and surgical consent were signed. I answered all of his questions. Procedure in detail: The patient was transported to the operating room via cart and placed on the operating table in the supine position. A bump was placed to the right lower extremity to control external rotation to allow good exposure. Final verification of the patient, surgery, and limb designation was performed via the timeout procedure. IV antibiotics are already being administered on the medical floor and additional antibiotics were not administered at this time. MAC anesthesia was initiated by the anesthesia team. Bilateral well-padded tourniquets were placed however it was not deemed necessary and they were not inflated during surgery. Bilateral preoperative local anesthetic was administered by myself as noted. Bilateral lower extremities were prepped and draped in the usual aseptic manner. Surgery began as a following: Attention was first directed to the right foot in which a full-thickness linear incision was made to the lateral dorsal aspect of the foot to excise and remove the fifth toe in total. The chronic devitalized ulceration site was additionally excised. This was removed from the table. The fifth metatarsal head was next identified and freed from adjacent soft tissues. A sagittal saw was utilized to remove the head proximal to the area of the suspected bone infection from the MRI images and also until a clinical clean appearance was noted. The specimen was sent to microbiology and pathology as noted above. Pressure was applied to maintain hemostasis and attention was next directed over to the left foot. Next, two converging elliptical incisions were performed to excise the plantar left foot ulcer and extended dorsally along the dorsal lateral aspect of the remaining first metatarsal shaft. The remaining first metatarsal shaft was identified and good exposure was obtained. A sagittal saw was used to resect and bevel the remaining first metatarsal shaft according to the suspected are of bone infection gathered from the MRI images and clinical appearance. The specimen was sent to microbiology and pathology as noted above. Next, copious saline irrigation was performed to irrigate bilateral lower extremity surgical sites. At this time fresh drapes, gloves, instruments, and saw blades were exchanged in preparation to gather a clean clearance fragment. A clearance fragment of bone was taken from the right remaining fifth metatarsal shaft and the left remaining first metatarsal shaft. These were sent as clearance fragments to both microbiology and pathology as noted above. Pressure was applied to maintain hemostasis and further controlled with minimal use of Vicryl suture and electrocauterization. No pulsatile bleeding was noted and capillary refill time was less than 3 seconds to all aspects of the left transmetatarsal amputation healed stump site, all of the digits of the right foot, and to the dorsal and plantar aspect of the recently performed right fifth ray resection site. At this time, remodeling and debulking at both surgical sites was performed. The skin was reapproximated with vertical mattress, horizontal mattress, simple, and no touch techniques to obtain a non-tensile well approximated closure. An intraoperative fluoroscopy image was obtained to confirm adequate resection at the right fifth metatarsal as well as the left first metatarsal. No acute injuries were noted. A postoperative dressing consisting of Betadine soaked gauze, gauze, abdominal pad, Kerlix, Ronak wrap and webril were applied to bilateral lower extremities. After procedure: The patient tolerated the procedure and anesthesia well. He will be transferred back to the progressive care unit upon continued stability. He was advised to ice and elevate bilateral lower extremities for pain and inflammation management. Strict nonweightbearing to both surgical sites was recommended. Postoperative formal x-rays will be ordered. He will continue on IV antibiotics that are currently culture guided. New cultures and pathology specimens were obtained including the infected bone as well as adjacent clearance fragments from each foot. Infectious disease is on consultation and is greatly appreciated. Vascular surgery is also on consult and intervention is appreciated. I recommend nutritional supplementation and further glycemic control to optimize healing. I recommend group home facility placement to optimize healing; he is unable to care for himself properly at home for this condition. Medical management and DVT prophylaxis per primary team is appreciated. His lab trends and specimen results will be followed close. Margaret Thomas DPM [facility] - Admit VTE Documentation VTE Present on Admission: No VTE Mechan Device Prophylaxis: SCD's VTE Pharm Prophylaxis ordered?: Yes
--- NOTE | 2017-07-31 17:25 | RAD_ITS ---
STUDY: X-RAY - RIGHT FOOT CLINICAL: Male, 67 years old. Postop status post fifth ray resection TECHNIQUE: 3 view(s) of the foot. COMPARISON: None. FINDINGS: Postsurgical changes along the resection site. There is atherosclerosis. Normal talus, calcaneus, and tarsal bones. Normal visualized subtalar, talonavicular, calcaneocuboid, tarsal and tarsometatarsal articulations. Otherwise normal metatarsi. Normal metatarsophalangeal joint of the great toe. Normal tibial and fibular sesamoid bones. Normal interphalangeal joint of the great toe. Normal phalanges of the great toe. Normal second through fifth metatarsophalangeal joints. Proximal second phalanx with healed fracture deformity. Otherwise normal interphalangeal joints and phalanges of the lesser toes. RAD/Foot min 3 Views IMPRESSION: Postsurgical changes without complications. Electronically Signed: Cecilia Burgos MD at 0:22 EST , Service support ,
[2017-07-31 17:51] LABS: Bedside Glucose 187 mg/dL (70-110)
[2017-07-31] MEDS: Atorvastatin Calcium 80 MG Tablet PO (22:07)
[2017-07-31] MEDS: HYDROcodone Bitartrate/Apap 5/325 Tablet PO (22:19)
[2017-07-31 22:30] LABS: Bedside Glucose 279 mg/dL (70-110)
[2017-08-01] VITALS (12 sets, daily range): BP systolic 115–134; BP diastolic 49–68; PULSE 58–73; RESP 14–18; TEMP 36.8–37; O2SAT 92–97
[2017-08-01] MEDS: Acetaminophen 325 MG Tablet 650 MG PO (02:52)
[2017-08-01] MEDS: metroNIDAZOLE 500 MG Tablet PO ×3 (05:25→22:18)
[2017-08-01] MEDS: Baclofen 10 MG Tablet PO ×3 (05:25→22:19)
[2017-08-01] MEDS: Levothyroxine 100 MCG Tablet 200 MCG PO (05:26)
[2017-08-01 07:01] LABS: Bedside Glucose 246 mg/dL (70-110)
[2017-08-01] MEDS: Aspirin 81 MG TAB.CHEW PO (09:00)
[2017-08-01] MEDS: Fluticasone 0.05% 1 SPRAY NASAL.SRY NASAL (09:00)
[2017-08-01] MEDS: Iron Polysaccharide Complex 150 MG CAPSULE PO (09:00)
[2017-08-01] MEDS: LINACLOTIDE 145 MCG CAPSULE PO (09:01)
[2017-08-01] MEDS: Furosemide 80 MG Tablet PO ×2 (09:01→22:19)
[2017-08-01] MEDS: Montelukast 10 MG Tablet PO (09:02)
[2017-08-01] MEDS: Metoprolol Tartrate 100 MG Tablet PO ×2 (09:02→22:18)
[2017-08-01] MEDS: Clopidogrel Bisulfate 75 MG Tablet PO (09:02)
[2017-08-01 09:03] LABS: Creat.Clear Total Volume 2825 mL; Creatinine Clearance 78 ml/min (100-200); Creatinine Serum Creat 1.3 mg/dL (0.8-1.3); Creatinine Urine 49.9 mg/dL (NO RANGE EST.); EST Glomerular Filtration Rate 61 mL/min (>60); Est Glom Filt Rate - Afr Amer 74 mL/min (>60)
--- NOTE | 2017-08-01 09:43 | CASEMGMT ---
[place] met with patient, introduced self and role at [facility]. He said he doesn't want to go to a long-term, but if he has to he will. He told SW he did not want [place] as when he was there before there were 2 nurses that were horrible. He did not know where else he would like to go and wanted to think about it. [place] told him SW will check back. RN then came to and she indicated patient was asking about [facility]. [place] did put his name on the list, but not sure this would be the best option as he will likely need more than 20 days. He would only be able to stay in TCU for 20 days due to his insurance, however if he went to another facility that accepted Medicaid he could stay longer. He could go to TCU for 20 days and if needed be transferred to another facility that accepts Medicaid. [place] will work on d/c plan. Yas SCOTT MSW
--- NOTE | 2017-08-01 10:06 | PN.ID_ITS ---
Patient Problems: Active and Suspected Problems Cellulitis of right foot (Acute) Severe sepsis (Acute) Subjective: No pain in feet s/p OR yesterday, no fever, no n/v/d. - Physical Exam General: Alert, Cooperative, No apparent distress Lungs: Clear to auscultation, Normal air movement Cardiovascular: Regular rate, Regular Rhythm Abdomen: Soft, Non Tender, Obese Skin: No rashes, Incision - bilat feet surg dressing in place Vital Signs Temp Pulse Resp BP Pulse Ox 98.4 F 67 14 134/68 H 97 08/01/17 09:15 08/01/17 09:15 08/01/17 09:15 08/01/17 09:15 08/01/17 09:15 Oxygen Flow Rate 2 Oxygen Delivery Method Room Air Weight: 101.5 kg Body Mass Index (BMI) 31.1 Intake and Output for Last 24 Hours 07/30/17 07/31/17 08/01/17 23:59 23:59 23:59 Intake Total 2174 / 2174 1470 / 1470 Output Total 2550 / 2550 3100 / 3100 725 / 725 Balance -376 / -376 -1630 / -1630 -725 / -725 Microbiology Past 72 Hours 07/27/17 22:12 Gram Stain - Final Wound - Right Foot Wound Culture - Final Serratia marcescens Corynebacterium striatum Anaerobic Culture - Final No anaerobic bacteria isolated. 07/31/17 14:30 C. difficile DNA Amplification - Final Stool 07/28/17 05:33 Urine Culture - Final Urine, Clean Catch Culture exhibits no growth. Laboratory Tests Past 24 Hrs 08/01/17 07:50 Creatinine 1.3 Est GFR (MDRD) Af Amer 74 Est GFR (MDRD) Non-Af 61 Urine Collection Time 24.0 Timed Urine Volume 2825 Urine Creatinine 49.9 Creatinine Clearance 78 L POC Glucose 08/01/17 07/31/17 07/31/17 06:57 22:05 17:49 POC Glucose 246 H 279 H 187 H 07/31/17 07/30/17 07/30/17 11:41 04:51 04:40 POC Glucose 234 H 105 19 L* Route of nutrition/ use of supplements: [] Nutritional Intake: [] IV Site: [] Meng Catheter: [] - Assessment/Plan Antibiotics: [] Assessment/Plan: [] Active and Suspected Problems Non-pressure chronic ulcer of other part of left foot with fat layer exposed ( Acute) Non-pressure chronic ulcer of other part of right foot with fat layer exposed ( Acute) PAD (peripheral artery disease) (Acute) Diabetes mellitus with neuropathy (Acute) Cellulitis of left foot (Acute) Cellulitis of right foot (Acute) Severe sepsis (Acute) Bilat foot DM osteomyelitis with PVD - recent angioplasty. MRI shows R 5th metatarsal and toe osteo as well as osteo of L foot stump. Surg debridement/ resection done 07/31. ESR is normal. Wound cx with serratia and corynebacterium. Will narrow to ceftriaxone/flagyl. If surg margins are clear , plan on short course of po abx, if not will need 6 week of iv. D/w foster care case manager, will follow.
[2017-08-01] MEDS: 0.9% NaCl Peripheral Flush Adult/Peds IV ×2 (11:20→15:22)
[2017-08-01 11:46] LABS: Bedside Glucose 254 mg/dL (70-110)
--- NOTE | 2017-08-01 15:31 | CASEMGMT ---
[place] spoke with Aida in TCU and she can take patient. [place] spoke with patient and told him he could go to TCU, however if he needs more than 20 days he will have to be transferred to another shelter to continue his care. He said he was okay with that. He said he was hoping he would be home in 20 days. [place] told him that [place] is not sure that will be the case. Plan: [facility] pending pre-cert. Yas SCOTT MSW
[2017-08-01 16:51] LABS: Bedside Glucose 254 mg/dL (70-110)
--- NOTE | 2017-08-01 17:30 | PCM.PN.HOSP ---
Patient Problems: Active and Suspected Problems Cellulitis of right foot (Acute) Severe sepsis (Acute) Vitals/I&O's: Vital Signs Temp Pulse Resp BP Pulse Ox 98.6 F 62 15 132/60 H 95 08/01/17 15:15 08/01/17 15:15 08/01/17 15:15 08/01/17 15:15 08/01/17 15:15 Oxygen Flow Rate 2 Oxygen Delivery Method Room Air Weight: 101.5 kg Body Mass Index (BMI) 31.1 Intake and Output for Last 24 Hours 07/30/17 07/31/17 08/01/17 23:59 23:59 23:59 Intake Total 2174 / 2174 1470 / 1470 479 / 479 Output Total 2550 / 2550 3100 / 3100 1125 / 1125 Balance -376 / -376 -1630 / -1630 -646 / -646 Microbiology Past 72 Hours 07/31/17 15:55 Bone - Right Foot Gram Stain - Final 07/31/17 15:55 Bone - Right Foot Wound Culture - Preliminary No growth-Final to follow 07/31/17 16:04 Bone - Left Foot Gram Stain - Final 07/31/17 16:04 Bone - Left Foot Wound Culture - Preliminary No growth-Final to follow 07/31/17 15:55 Bone - Left Foot Gram Stain - Final 07/31/17 15:55 Bone - Left Foot Wound Culture - Preliminary No growth-Final to follow 07/31/17 15:55 Bone - Right Foot Gram Stain - Final 07/31/17 15:55 Bone - Right Foot Wound Culture - Preliminary No growth-Final to follow 07/27/17 22:12 Wound - Right Foot Gram Stain - Final 07/27/17 22:12 Wound - Right Foot Wound Culture - Final Serratia marcescens Corynebacterium striatum 07/27/17 22:12 Wound - Right Foot Anaerobic Culture - Final No anaerobic bacteria isolated. 07/31/17 14:30 Stool C. difficile DNA Amplification - Final 07/28/17 05:33 Urine, Clean Catch Urine Culture - Final Culture exhibits no growth. Laboratory Results 07/31/17 17:49: POC Glucose 187 H 07/31/17 22:05: POC Glucose 279 H 08/01/17 06:57: POC Glucose 246 H 08/01/17 07:50: Creatinine 1.3, Est GFR (MDRD) Af Amer 74, Est GFR (MDRD) Non-Af 61, Urine Collection Time 24.0, Timed Urine Volume 2825, Urine Creatinine 49.9, Creatinine Clearance 78 L 08/01/17 11:16: POC Glucose 254 H 08/01/17 16:43: POC Glucose 254 H Current Medications Acetaminophen (Tylenol) 650 mg PO Q6H PRN PRN PRN Reason: Mild Pain (1-3)/Temp > 100.7 F Last Admin: 08/01/17 02:52 Dose: 650 mg Hydrocodone Bitart/Acetaminophen (Hobson 5mg-325mg) 1 - 2 tablet PO Q6H PRN PRN PRN Reason: Moderate-severe pain Last Admin: 07/31/17 22:19 Dose: 1 tablet Aspirin (Aspirin, Baby) 81 mg PO DAILY@0800 ON LICENSE OF [facility] Last Admin: 08/01/17 09:00 Dose: 81 mg Atorvastatin Calcium (Lipitor) 80 mg PO QHS ON LICENSE OF [facility] Last Admin: 07/31/17 22:07 Dose: 80 mg Baclofen (Lioresal) 10 mg PO TID ON LICENSE OF [facility] Last Admin: 08/01/17 13:32 Dose: 10 mg Calamine/Phenol (Calmoseptine Ointment) 1 applic TOPICAL BID ON LICENSE OF [facility] PRN Reason: Protocol Clopidogrel Bisulfate (Plavix) 75 mg PO DAILY ON LICENSE OF [facility] Last Admin: 08/01/17 09:02 Dose: 75 mg Dextrose (D50w Syringe) 0 gm IV X1 PRN; Protocol PRN Reason: Hypoglycemia Last Admin: 07/30/17 04:45 Dose: 25 gm Fluticasone Propionate (Flonase Nasal Deane) 1 spray NASAL DAILY ON LICENSE OF [facility] Last Admin: 08/01/17 09:00 Dose: 1 spray Furosemide (Lasix) 80 mg PO BID ON LICENSE OF [facility] Last Admin: 08/01/17 09:01 Dose: 80 mg Glucagon () 1 mg IM .X1 PRN PRN Reason: Hypoglycemia Heparin Sodium (Porcine) () 5,000 units SC BID ON LICENSE OF [facility] Last Admin: 07/30/17 21:03 Dose: 5,000 units Hydralazine HCl (Apresoline) 10 mg IV Q4H PRN PRN PRN Reason: SBP > 160 Ceftriaxone Sodium 2 gm/ (Sodium Chloride) 50 mls @ 100 mls/hr IV Q24H ON LICENSE OF [facility] Last Admin: 08/01/17 15:21 Dose: 100 mls/hr Insulin Aspart (Novolog Flexpen (Bk)) 10 units SC TIDAC ON LICENSE OF [facility] Last Admin: 08/01/17 16:44 Dose: 10 u Insulin Detemir (Levemir (Bkc)) 60 units SC BID ON LICENSE OF [facility] Last Admin: 08/01/17 09:01 Dose: 60 u Levothyroxine Sodium (Synthroid) 200 mcg PO DAILY@0600 ON LICENSE OF [facility] Last Admin: 08/01/17 05:26 Dose: 200 mcg Linaclotide (Linzess) 145 mcg PO DAILY ON LICENSE OF [facility] Last Admin: 08/01/17 09:01 Dose: 145 mcg Magnesium Hydroxide (Milk Of Magnesia) 30 ml PO DAILY PRN PRN Reason: Constipation Metoprolol Tartrate (Lopressor (Beta Adonis)) 100 mg PO BID ON LICENSE OF [facility] Last Admin: 08/01/17 09:02 Dose: 100 mg Metronidazole (Flagyl) 500 mg PO TID ON LICENSE OF [facility] Last Admin: 08/01/17 13:32 Dose: 500 mg Montelukast Sodium (Singulair) 10 mg PO DAILY ON LICENSE OF [facility] Last Admin: 08/01/17 09:02 Dose: 10 mg Nutritional Formula ([place]oy - [place] Flavor) [facility] Last Admin: 08/01/17 16:44 Dose: 1 packet Ondansetron HCl (Zofran) 4 mg IV Q8H PRN PRN PRN Reason: NAUSEA Polyethylene Glycol (Miralax) 17 gm PO DAILY ON LICENSE OF [facility] Last Admin: 08/01/17 09:02 Dose: Not Given Polyethylene Glycol (Miralax) 17 gm PO DAILY PRN PRN PRN Reason: CONSTIPATION Polysaccharide Iron Complex (Ferrex 150) [facility] Last Admin: 08/01/17 09:00 Dose: 150 mg Sodium Chloride () 5 - 30 ml IV UD PRN PRN Reason: SALINE FLUSH Last Admin: 08/01/17 15:22 Dose: 10 ml Assessment/Plan Active and Suspected Problems Cellulitis of right foot (Acute) Severe sepsis (Acute) 1. Osteomyelitis R 5th metatarsal and osteo of L foot stump; status post resection and debridement 2. PVD s/p angioplasty 3. 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 4. Diabetes type 2; he is on Levemir and regular insulin sliding scale. 5. CKD stage III; avoid potentially nephrotoxic medications. 6. Hypothyroidism; he is on Synthroid. 7. Hypertension; continue current medications without change. 8. Diarrhea; will obtain stool for C. difficile. 9. DVT prophylaxis with SC Heparin.
--- NOTE | 2017-08-01 18:08 | PN_ITS ---
Patient Problems: Active and Suspected Problems Cellulitis of right foot (Acute) Severe sepsis (Acute) Subjective: This 67-year-old male with multiple comorbidities was seen this evening postoperative day #1 right foot fifth ray resection left foot revisional first ray resection including bone biopsies for treatment of osteomyelitis and chronic nonhealing ulcers. His case is complicated with uncontrolled diabetes with neuropathy, chronic lower extremity edema, and peripheral vascular disease. He recently had a new stent placed to left popliteal artery. He denies fever, chill, nausea, vomiting, shortness of breath, chest pain, calf pain, surgical site pain. - Physical Exam General: Alert, Oriented x3, Cooperative Extremities: No cyanosis, Capillary Refill Less than 3 Seconds - Digits 1, 2, 3 , 4 right foot. Capillary fill time is also less than 3 seconds to all aspects of the left foot simple flap closure and all aspects of the right foot complex wound closure site., No Calf Tenderness - Negative Rashad and Tenorio sign bilateral, Diminished Peripheral Pulses, Edema - Bilateral lower extremities moderate Skin: Incision - Bilateral foot surgical site incisions are well aligned and coapted without necrosis, eschar, purulence, erythema or streaking. Bilateral foot erythema has significantly decreased. There is no crepitus on palpation or odor. There is some mild maceration to the central aspect of the right foot incision closure site Musculoskeletal: No Tenderness to Palpation of Joints or Extremities, Muscle Wasting, - - Left transmetatarsal amputation and right fifth ray resection Neurological: - - Lack of epicritic sensation light touch bilateral lower extremities Psych/Mental Status: Normal Affect, Appropriate Vital Signs Temp Pulse Resp BP Pulse Ox 98.6 F 62 15 132/60 H 95 08/01/17 15:15 08/01/17 15:15 08/01/17 15:15 08/01/17 15:15 08/01/17 15:15 Oxygen Flow Rate 2 Oxygen Delivery Method Room Air Weight: 101.5 kg Body Mass Index (BMI) 31.1 Intake and Output for Last 24 Hours 07/30/17 07/31/17 08/01/17 23:59 23:59 23:59 Intake Total 2174 / 2174 1470 / 1470 927 / 927 Output Total 2550 / 2550 3100 / 3100 1760 / 1760 Balance -376 / -376 -1630 / -1630 -833 / -833 Microbiology Past 72 Hours 07/31/17 15:55 Gram Stain - Final Bone - Right Foot Wound Culture - Preliminary No growth-Final to follow 07/31/17 16:04 Gram Stain - Final Bone - Left Foot Wound Culture - Preliminary No growth-Final to follow 07/31/17 15:55 Gram Stain - Final Bone - Left Foot Wound Culture - Preliminary No growth-Final to follow 07/31/17 15:55 Gram Stain - Final Bone - Right Foot Wound Culture - Preliminary No growth-Final to follow 07/27/17 22:12 Gram Stain - Final Wound - Right Foot Wound Culture - Final Serratia marcescens Corynebacterium striatum Anaerobic Culture - Final No anaerobic bacteria isolated. 07/31/17 14:30 C. difficile DNA Amplification - Final Stool 07/28/17 05:33 Urine Culture - Final Urine, Clean Catch Culture exhibits no growth. Laboratory Tests Past 24 Hrs 08/01/17 07:50 Creatinine 1.3 Est GFR (MDRD) Af Amer 74 Est GFR (MDRD) Non-Af 61 Urine Collection Time 24.0 Timed Urine Volume 2825 Urine Creatinine 49.9 Creatinine Clearance 78 L POC Glucose 08/01/17 08/01/17 08/01/17 16:43 11:16 06:57 POC Glucose 254 H 254 H 246 H 07/31/17 22:05 POC Glucose 279 H Assessment/Plan Active and Suspected Problems Cellulitis of right foot (Acute) Severe sepsis (Acute) Postoperative day #1 right fifth ray resection and left revisional first ray resection for treatment of osteomyelitis and chronic nonhealing ulcers Diabetes with neuropathy Peripheral vascular disease with recent stenting of the popliteal artery Malnutrition Lower extremity edema secondary to fluid imbalance and suspected venous insufficiency Other comorbidities Compliance difficulty I reviewed and discussed the case with patient today. I reviewed his diagnostic data. His vitals remained stable. Updated lab trends will be ordered for tomorrow morning including CBC, ESR, and C-reactive protein. His postoperative x-rays are reviewed which revealed no acute fractures or dislocations or foreign body or other injuries. The x-rays are consistent with status post right fifth ray resection and revisional partial first ray resection of the left foot. The previous left foot transmetatarsal amputation is unchanged. There is vessel calcification noted on both films. He continues on antibiotics. Infectious disease is on the case and is greatly appreciated. He will be changed over to ceftriaxone and Flagyl. His wound cultures are pending at this time. Microbiology and pathology specimens including clearance fragments were taken from bilateral feet in the operating room yesterday. He is to keep weight off of both surgical sites and is only permitted to heel touch in the left lower extremity if needed for transfers. He is at high risk for further limb loss and continued problems and compliance is imperative to his healing process. Bilateral lower extremity postoperative dressings were changed today and Adaptic with Betadine gauze well-padded Kerlix and Ronak wrap were applied to bilateral lower extremities. He was encouraged to elevate and ice for postoperative pain and inflammation management. His recent vascular surgery intervention with Dr. Redding's greatly appreciated. Additional intervention on the right lower extremity opportunities were discussed with Dr. Redding and additional procedures are not planned at this time. His recent left lower extremity stenting procedure was reviewed and noted. He demonstrated better left foot perfusion during surgery and then the right foot; however right foot bleeding was noted. To continue proper glycemic control and nutritional supplementation optimize healing. Medical management and DVT prophylaxis per primary team are appreciated. It is okay to resume heparin from a surgical standpoint at this time. He also continues on 81 mg of aspirin and Plavix daily. He was also advised to continue with incentive spirometer hourly while awake. Additional dressing change orders will be entered in the computer and I plan to see Fadi weekly. Please not hesitate to call if you have any questions. Margaret Thomas, [facility] [phone]
[2017-08-01] MEDS: Menthol/Lanolin/Calamine/Znox 113 GM Tube 1 APPLIC TOPICAL (22:18)
[2017-08-01] MEDS: Atorvastatin Calcium 80 MG Tablet PO (22:20)
[2017-08-02] VITALS (13 sets, daily range): BP systolic 124–151; BP diastolic 54–68; PULSE 54–71; RESP 16–18; TEMP 36.4–37.2; O2SAT 94–99
[2017-08-02 00:10] LABS: Bedside Glucose 278 mg/dL (70-110)
[2017-08-02] MEDS: Acetaminophen 325 MG Tablet 650 MG PO (00:48)
[2017-08-02] MEDS: metroNIDAZOLE 500 MG Tablet PO ×3 (05:45→22:57)
[2017-08-02] MEDS: Baclofen 10 MG Tablet PO ×3 (05:46→22:57)
[2017-08-02] MEDS: Levothyroxine 100 MCG Tablet 200 MCG PO (05:46)
[2017-08-02 07:06] LABS: Bedside Glucose 143 mg/dL (70-110)
[2017-08-02 07:47] LABS: Absolute Lymphocyte Count 1.59 X10^3/ul (0.83-4.51); Absolute Neutrophil Count 7.5 X10^3/uL (2.0-7.7); Basophil# 0.03 X10^3/uL; Basophil% 0.3 % (0-1); Eosinophil# 0.58 X10^3/uL; Eosinophils% 5.5 % (0-5); Hematocrit 37.2 % (40-54); Hemoglobin 12.2 g/dl (13.0-16.5); Lymphocyte # 1.59 X10^3/ul (4.0); Lymphocyte % 15.1 % (19-41); Mean Corp Hgb Conc 32.8 g/gl (32-36); Mean Corpuscular Volume 88.6 fL (80-94); Mean Platelet Vol. 9.6 fl (6.2-12.0); Monocyte# 0.76 X10^3/uL; Monocyte% 7.2 % (0-10); Neutrophil # 7.48 X10^3/uL (2.7-7.7); Neutrophil % 71.2 % (47-70); POSITIVE COUNT NO; POSITIVE DIFFERENTIAL NO; POSITIVE MORPHOLOGY NO; Platelet Count 280 K/mm3 (150-450); RBC Distribution Width CV 14.5 % (11.6-14.6); RBC Distribution Width SD 47.2 fl (35.1-43.9); White Blood Count 10.5 K/mm3 (4.4-11.0)
[2017-08-02 07:53] LABS: Erythrocyte Sedimentation Rate 53 mm/hr (0-20)
[2017-08-02] MEDS: Aspirin 81 MG TAB.CHEW PO (08:53)
[2017-08-02] MEDS: Iron Polysaccharide Complex 150 MG CAPSULE PO (08:53)
[2017-08-02] MEDS: Menthol/Lanolin/Calamine/Znox 113 GM Tube 1 APPLIC TOPICAL ×2 (10:43→22:58)
[2017-08-02] MEDS: Fluticasone 0.05% 1 SPRAY NASAL.SRY NASAL (10:43)
[2017-08-02] MEDS: LINACLOTIDE 145 MCG CAPSULE PO (10:43)
[2017-08-02] MEDS: Furosemide 80 MG Tablet PO ×2 (10:43→22:57)
[2017-08-02] MEDS: Montelukast 10 MG Tablet PO (10:44)
[2017-08-02] MEDS: Metoprolol Tartrate 100 MG Tablet PO ×2 (10:44→22:57)
[2017-08-02] MEDS: Clopidogrel Bisulfate 75 MG Tablet PO (10:45)
[2017-08-02] MEDS: Polyethylene Glycol 3350 17 GM PACKET PO (10:49)
--- NOTE | 2017-08-02 11:12 | PCM.PN.ID ---
Patient Problems: Active and Suspected Problems Hammer toe of right foot (Acute) Cellulitis of right foot (Acute) Severe sepsis (Acute) Subjective: No fever, no n/v/d. Foot pain controlled. - Physical Exam General: Alert, Cooperative, No apparent distress Lungs: Clear to auscultation, Normal air movement Cardiovascular: Regular rate, Regular Rhythm, No murmurs Abdomen: Soft, Non Tender, Non-Distended Skin: Incision - bilat feet wrapped Vital Signs Temp Pulse Resp BP Pulse Ox 97.6 F L 71 16 133/61 H 94 08/02/17 08:58 08/02/17 10:44 08/02/17 08:58 08/02/17 08:58 08/02/17 08:58 Oxygen Flow Rate 2 Oxygen Delivery Method Room Air Weight: 101.5 kg Body Mass Index (BMI) 31.1 Intake and Output for Last 24 Hours 07/31/17 08/01/17 08/02/17 23:59 23:59 23:59 Intake Total 1470 / 1470 1008.5 / 1008.5 Output Total 3100 / 3100 2210 / 2210 600 / 600 Balance -1630 / -1630 -1201.5 / -1201.5 -600 / -600 Microbiology Past 72 Hours 07/31/17 15:55 Gram Stain - Final Bone - Right Foot Wound Culture - Preliminary No growth-Final to follow 07/31/17 16:04 Gram Stain - Final Bone - Left Foot Wound Culture - Preliminary Gram negative rhoda 07/31/17 15:55 Gram Stain - Final Bone - Left Foot Wound Culture - Preliminary No growth-Final to follow 07/31/17 15:55 Gram Stain - Final Bone - Right Foot Wound Culture - Preliminary No growth-Final to follow 07/27/17 22:12 Gram Stain - Final Wound - Right Foot Wound Culture - Final Serratia marcescens Corynebacterium striatum Anaerobic Culture - Final No anaerobic bacteria isolated. 07/31/17 14:30 C. difficile DNA Amplification - Final Stool 07/28/17 05:33 Urine Culture - Final Urine, Clean Catch Culture exhibits no growth. Laboratory Tests Past 24 Hrs 08/02/17 08/02/17 07:25 07:25 WBC 10.5 RBC 4.20 L Hgb 12.2 L Hct 37.2 L MCV 88.6 MCH 29.0 MCHC 32.8 RDW 14.5 RDW Differential 47.2 H Plt Count 280 MPV 9.6 Immature Gran % (Auto) 0.700 Neut % (Auto) 71.2 H Lymph % (Auto) 15.1 L [place] % (Auto) 7.2 Eos % (Auto) 5.5 H Baso % (Auto) 0.3 Absolute Neuts (auto) 7.5 Absolute Lymphs (auto) 1.59 Total Counted Not Reportable ESR 53 H C-React Prot Ext Range 57.00 H POC Glucose 08/02/17 08/01/17 08/01/17 06:50 22:15 16:43 POC Glucose 143 H 278 H 254 H 08/01/17 11:16 POC Glucose 254 H Route of nutrition/ use of supplements: [] Nutritional Intake: [] IV Site: [] Meng Catheter: [] - Assessment/Plan Antibiotics: [] Assessment/Plan: [] Active and Suspected Problems Non-pressure chronic ulcer of other part of left foot with fat layer exposed (Acute) Non-pressure chronic ulcer of other part of right foot with fat layer exposed (Acute) PAD (peripheral artery disease) (Acute) Diabetes mellitus with neuropathy (Acute) Cellulitis of left foot (Acute) Cellulitis of right foot (Acute) Severe sepsis (Acute) Bilat foot DM osteomyelitis with PVD - recent angioplasty. MRI shows R 5th metatarsal and toe osteo as well as osteo of L foot stump. Surg debridement/resection done 07/31. Wound cx with serratia and corynebacterium. Cont ceftriaxone/flagyl. L foot bone cx (+) for GNR. Will plan on midline placement and 4-6 weeks of abx. Weekly bmp, cbc, and esr while on abx. ESR 08/01 was 53. D/w correctional case manager, will follow.
[2017-08-02 11:16] LABS: Bedside Glucose 151 mg/dL (70-110)
--- NOTE | 2017-08-02 13:25 | CASEMGMT ---
[place] called patient's Passport CM and left him a voice mail letting him know patient will be going to [facility] when he is ready for d/c. [facility] approval. Yas ANGULO
--- NOTE | 2017-08-02 15:49 | NURSING ---
wound photo: left foot (plantar view)
--- NOTE | 2017-08-02 15:50 | NURSING ---
wound photo: left foot (dorsal view)
--- NOTE | 2017-08-02 15:50 | NURSING ---
wound photo: right foot (plantar view)
--- NOTE | 2017-08-02 15:50 | NURSING ---
wound photo: right foot (dorsal view)
[2017-08-02 16:27] LABS: Bedside Glucose 218 mg/dL (70-110)
--- NOTE | 2017-08-02 18:05 | PN_ITS ---
Patient Problems: Active and Suspected Problems Cellulitis of right foot (Acute) Severe sepsis (Acute) Vitals/I&O's: Vital Signs Temp Pulse Resp BP Pulse Ox 97.7 F L 59 L 16 151/68 H 94 08/02/17 14:07 08/02/17 15:01 08/02/17 14:07 08/02/17 14:07 08/02/17 14:07 Oxygen Flow Rate 2 Oxygen Delivery Method Room Air Weight: 101.5 kg Body Mass Index (BMI) 31.1 Intake and Output for Last 24 Hours 07/31/17 08/01/17 08/02/17 23:59 23:59 23:59 Intake Total 1470 / 1470 1008.5 / 1008.5 571 / 571 Output Total 3100 / 3100 2210 / 2210 1275 / 1275 Balance -1630 / -1630 -1201.5 / -1201.5 -704 / -704 Microbiology Past 72 Hours 07/31/17 15:55 Bone - Right Foot Gram Stain - Final 07/31/17 15:55 Bone - Right Foot Wound Culture - Preliminary No growth-Final to follow 07/31/17 16:04 Bone - Left Foot Gram Stain - Final 07/31/17 16:04 Bone - Left Foot Wound Culture - Preliminary Gram negative rhoda 07/31/17 15:55 Bone - Left Foot Gram Stain - Final 07/31/17 15:55 Bone - Left Foot Wound Culture - Preliminary No growth-Final to follow 07/31/17 15:55 Bone - Right Foot Gram Stain - Final 07/31/17 15:55 Bone - Right Foot Wound Culture - Preliminary No growth-Final to follow 07/27/17 22:12 Wound - Right Foot Gram Stain - Final 07/27/17 22:12 Wound - Right Foot Wound Culture - Final Serratia marcescens Corynebacterium striatum 07/27/17 22:12 Wound - Right Foot Anaerobic Culture - Final No anaerobic bacteria isolated. 07/31/17 14:30 Stool C. difficile DNA Amplification - Final Laboratory Results 08/01/17 22:15: POC Glucose 278 H 08/02/17 06:50: POC Glucose 143 H 08/02/17 07:25: WBC 10.5, RBC 4.20 L, Hgb 12.2 L, Hct 37.2 L, MCV 88.6, MCH 29.0 , MCHC 32.8, RDW 14.5, RDW Differential 47.2 H, Plt Count 280, MPV 9.6, Immature Gran % (Auto) 0.700, Neut % (Auto) 71.2 H, Lymph % (Auto) 15.1 L, [place] % (Auto) 7.2, Eos % (Auto) 5.5 H, Baso % (Auto) 0.3, Absolute Neuts (auto) 7.5, Absolute Lymphs (auto) 1.59, Total Counted Not Reportable, ESR 53 H 08/02/17 07:25: C-React Prot Ext Range 57.00 H 08/02/17 10:55: POC Glucose 151 H 08/02/17 16:20: POC Glucose 218 H Current Medications Acetaminophen (Tylenol) 650 mg PO Q6H PRN PRN PRN Reason: Mild Pain (1-3)/Temp > 100.7 F Last Admin: 08/02/17 00:48 Dose: 650 mg Hydrocodone Bitart/Acetaminophen ([place] 5mg-325mg) 1 - 2 tablet PO Q6H PRN PRN PRN Reason: Moderate-severe pain Last Admin: 07/31/17 22:19 Dose: 1 tablet Aspirin (Aspirin, Baby) 81 mg PO DAILY@0800 [facility] Last Admin: 08/02/17 08:53 Dose: 81 mg Atorvastatin Calcium (Lipitor) 80 mg PO QHS [facility] Last Admin: 08/01/17 22:20 Dose: 80 mg Baclofen (Lioresal) 10 mg PO TID [facility] Last Admin: 08/02/17 14:02 Dose: 10 mg Calamine/Phenol (Calmoseptine Ointment) 1 applic TOPICAL BID [facility] PRN Reason: Protocol Last Admin: 08/02/17 10:43 Dose: 1 applicatio Clopidogrel Bisulfate (Plavix) 75 mg PO DAILY [facility] Last Admin: 08/02/17 10:45 Dose: 75 mg Dextrose (D50w Syringe) 0 gm IV X1 PRN; Protocol PRN Reason: Hypoglycemia Last Admin: 07/30/17 04:45 Dose: 25 gm Fluticasone Propionate (Flonase Nasal [place]) 1 spray NASAL DAILY [facility] Last Admin: 08/02/17 10:43 Dose: 1 spray Furosemide (Lasix) 80 mg PO BID [facility] Last Admin: 08/02/17 10:43 Dose: 80 mg Glucagon () 1 mg IM .X1 PRN PRN Reason: Hypoglycemia Heparin Sodium (Porcine) (Heparin Na) 5,000 unit SC BID [facility] Last Admin: 08/02/17 10:43 Dose: 5,000 u Hydralazine HCl (Apresoline) 10 mg IV Q4H PRN PRN PRN Reason: SBP > 160 Ceftriaxone Sodium 2 gm/ (Sodium Chloride) 50 mls @ 100 mls/hr IV Q24 [facility] Last Admin: 08/02/17 14:04 Dose: 100 mls/hr Insulin Aspart (Novolog Flexpen ([facility])) 10 units SC TIDAC [facility] Last Admin: 08/02/17 16:26 Dose: 10 u Insulin Detemir (Levemir ([facility])) 60 units SC BID [facility] Last Admin: 08/02/17 10:44 Dose: 60 u Levothyroxine Sodium (Synthroid) 200 mcg PO DAILY@0600 [facility] Last Admin: 08/02/17 05:46 Dose: 200 mcg Linaclotide (Linzess) 145 mcg PO DAILY [facility] Last Admin: 08/02/17 10:43 Dose: 145 mcg Magnesium Hydroxide (Milk Of Magnesia) 30 ml PO DAILY PRN PRN Reason: Constipation Metoprolol Tartrate (Lopressor (Beta Adonis)) 100 mg PO BID [facility] Last Admin: 08/02/17 10:44 Dose: 100 mg Metronidazole (Flagyl) 500 mg PO TID [facility] Last Admin: 08/02/17 14:02 Dose: 500 mg Montelukast Sodium (Singulair) 10 mg PO DAILY [facility] Last Admin: 08/02/17 10:44 Dose: 10 mg Nutritional Formula ([facility] Last Admin: 08/02/17 16:25 Dose: 1 packet Ondansetron HCl (Zofran) 4 mg IV Q8H PRN PRN PRN Reason: NAUSEA Polyethylene Glycol (Miralax) 17 gm PO DAILY [facility] Last Admin: 08/02/17 10:49 Dose: 17 gm Polyethylene Glycol (Miralax) 17 gm PO DAILY PRN PRN PRN Reason: CONSTIPATION Polysaccharide Iron Complex ([facility]rex 150) [facility] Last Admin: 08/02/17 08:53 Dose: 150 mg Sodium Chloride () 5 - 30 ml IV UD PRN PRN Reason: SALINE FLUSH Last Admin: 08/01/17 15:22 Dose: 10 ml Assessment/Plan Active and Suspected Problems Cellulitis of right foot (Acute) Severe sepsis (Acute) 1. Osteomyelitis R 5th metatarsal and osteo of L foot stump; status post resection and debridement , infectious disease recommends 4-6 weeks of IV antibiotics. 2. PVD s/p angioplasty 3. 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 4. Diabetes type 2; he is on Levemir and regular insulin sliding scale. 5. CKD stage III; avoid potentially nephrotoxic medications. 6. Hypothyroidism; he is on Synthroid. 7. Hypertension; continue current medications without change. 8. Diarrhea; resolved. 9. DVT prophylaxis with SC Heparin. 10. Disposition; awaiting discharge to TCU. Code Visit Inpatient E&M: 27632 Subs Hosp L2
[2017-08-02] MEDS: Atorvastatin Calcium 80 MG Tablet PO (22:58)
[2017-08-02] MEDS: 0.9% NaCl Peripheral Flush Adult/Peds IV (23:04)
[2017-08-02 23:16] LABS: Bedside Glucose 288 mg/dL (70-110)
[2017-08-03 02:25] VITALS: BP 134/66; PULSE 54; RESP 18; TEMP 36.6; O2SAT 94
[2017-08-03 02:54] VITALS: PULSE 55
[2017-08-03] MEDS: Baclofen 10 MG Tablet PO (05:49)
[2017-08-03] MEDS: metroNIDAZOLE 500 MG Tablet PO (05:49)
[2017-08-03] MEDS: Levothyroxine 100 MCG Tablet 200 MCG PO (05:50)
[2017-08-03 06:51] LABS: Bedside Glucose 131 mg/dL (70-110)
[2017-08-03 07:28] VITALS: PULSE 52
[2017-08-03] MEDS: Iron Polysaccharide Complex 150 MG CAPSULE PO (08:04)
[2017-08-03] MEDS: Aspirin 81 MG TAB.CHEW PO (08:04)
--- NOTE | 2017-08-03 09:10 | CASEMGMT ---
SW received call from Aida in TCU and she received insurance authorization. Plan; [facility] Yas SCOTT MSW
[2017-08-03 09:33] VITALS: BP 129/52; PULSE 64; RESP 16; TEMP 36.4; O2SAT 96
[2017-08-03] MEDS: Fluticasone 0.05% 1 SPRAY NASAL.SRY NASAL (09:35)
[2017-08-03] MEDS: Furosemide 80 MG Tablet PO (09:36)
[2017-08-03] MEDS: Menthol/Lanolin/Calamine/Znox 113 GM Tube 1 APPLIC TOPICAL (09:36)
[2017-08-03 09:37] VITALS: PULSE 65
[2017-08-03] MEDS: LINACLOTIDE 145 MCG CAPSULE PO (09:37)
[2017-08-03] MEDS: Metoprolol Tartrate 100 MG Tablet PO (09:37)
[2017-08-03] MEDS: Clopidogrel Bisulfate 75 MG Tablet PO (09:37)
[2017-08-03] MEDS: Montelukast 10 MG Tablet PO (09:37)
[2017-08-03] MEDS: Pantoprazole Sodium 20 MG Tablet PO (09:40)
[2017-08-03] MEDS: Polyethylene Glycol 3350 17 GM PACKET PO (09:41)
[2017-08-03 11:01] VITALS: PULSE 54
--- NOTE | 2017-08-03 12:03 | PCM.TXEXTCAR ---
- Diet 07/31/17 17:09 Diet: Carbohydrate Controlled Is pt able to select menu?: Yes - Wound(s) RIGHT FOOT Wound Type: surgical incision s/p amputation right 5th toe Dressing Change: betadine gauze L foot Wound Type: Surgical Incision Dressing Change: Adaptic R barlow Wound Type: Scab - Allergies/Procedures Done in Hospital Allergies/Adverse Reactions: Allergies adhesive Allergy (Verified 02/13/17 14:38) SKIN GETS PULLED OFF SKIN GETS PULLED OFF latex Allergy (Verified 02/13/17 14:38) Hives - Type of Care/Length of Stay Estimated LOS: Convalescent Care Less Than 30 days Type of Care Needed: Skilled Rehab Potential: Fair Prognosis: Fair - Additional Orders/Day of Discharge H&P will serve as current which was dated: 07/27/17 Day of Discharge: 08/03/17 - Dietary and Speech Recommendations Dietitian Recommendations/Changes: Suggest diet change to 2000 calorie, cardiac. - Follow Up Care Primary Care Physician: Johnathan Batres Chi, MD [Primary Care Provider] -
--- NOTE | 2017-08-03 12:06 | PCM.DC.SUM ---
Discharge Date and Diagnosis - Problem List Patient Problems: Active and Suspected Problems Sepsis (Acute) Osteomyelitis of foot (Acute) Date of Admission: 07/27/17 Date of Discharge: 08/03/17 - Primary Discharge Diagnosis Active and Suspected Problems Cellulitis of right foot (Acute) Severe sepsis (Acute) - Secondary Discharge Diagnosis Chronic Problems Non-pressure chronic ulcer of other part of left foot with fat layer exposed (Chronic) Non-pressure chronic ulcer of other part of right foot with fat layer exposed (Chronic) PAD (peripheral artery disease) (Chronic) Diabetes mellitus with neuropathy (Chronic) CAD (coronary artery disease) (Chronic) Malnutrition (Chronic) Delayed wound healing (Chronic) Lower extremity edema (Chronic) Chronic ulcer of left foot with fat layer exposed (Chronic) Ulcer of right foot with fat layer exposed (Chronic) Hypertension (Chronic) Hyperlipidemia (Chronic) Hypothyroidism (Chronic) Coronary artery disease (Chronic) Sleep apnea (Chronic) Chronic kidney disease (Chronic) PAOD (peripheral arterial occlusive disease) (Chronic) GERD (gastroesophageal reflux disease) (Chronic) Muscle spasm (Chronic) Osteomyelitis of left foot (Chronic) Type 2 diabetes mellitus with diabetic polyneuropathy (Chronic) Pulmonary hypertension (Chronic) Obstructive sleep apnea (Chronic) Morbid obesity (Chronic) Non compliance with medical treatment (Chronic) Diabetic foot ulcers (Chronic) Aortocoronary bypass status (Chronic) Type II diabetes mellitus, uncontrolled (Chronic) History of esophageal reflux (Chronic) History of hyperlipidemia (Chronic) History of hypertension (Chronic) History of hypothyroidism (Chronic) Macular infarction (Chronic) Peripheral vascular disease (Chronic) Hospital Course and Treatment Consultations 07/28/17 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 He was brought in after his home health care thought he looked ill and was concerned about infection of his foot. In the emergency he was found to have a white cell count of 12.5 and temperature of 37.9 and was tachypneic with respiratory rate of 22. Lactic acid was 2.1. He found to have bilateral lower extremity erythema and venous stasis segment MRI revealed he had bilateral osteomyelitis and podiatry was consulted he subsequently underwent right foot fifth toe resection with complex wound closure including bone biopsies. 2. Left foot revision and first toe resection including bone biopsies. left foot bone is growing gram-negative rods and infectious disease recommended we continue on IV Rocephin and Flagyl for 4-6 weeks, the patient was discharged to TCU for further post acute care management. 1. Osteomyelitis R 5th metatarsal and osteo of L foot stump; status post procedures above. L foot bone cx (+) for GNR infectious disease recommends 4-6 weeks of IV Rocephin and Flagyl. 2. PVD s/p angioplasty 3. 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 4. Diabetes type 2; he is on Levemir and regular insulin sliding scale. 5. CKD stage III; avoid potentially nephrotoxic medications. 6. Hypothyroidism; he is on Synthroid. 7. Hypertension; continue current medications without change. 8. Diarrhea; resolved. 9. Disposition; awaiting discharge to TCU. Physical exam at the time of discharge; vital signs were stable. He was alert and oriented to time place and person. He did not appear to be any form of distress. S1 and S2 heard no murmur or gallop Lung exam was clear to auscultation with no adventitious sounds. Abdomen was soft nontender with normal bowel sounds. extremity ; post surgical feet bilaterally Neurologic exam was grossly intact. Discharge Diet: No Restrictions Home Medications: Medications to take at Discharge Clopidogrel Bisulfate [Plavix] 75 mg PO DAILY 05/15/13 Levothyroxine [Synthroid] 200 mcg PO DAILY 05/15/13 Metoprolol Tartrate [Lopressor (beta ramo)] 100 mg PO BID 05/15/13 Atorvastatin Calcium [Lipitor] 80 mg PO QHS 01/12/16 Pantoprazole Sodium [Protonix] 20 mg PO DAILY 01/12/16 Aspirin [Aspirin, Baby] 81 mg PO DAILY@0800 02/25/16 Baclofen [Lioresal] 10 mg PO TID 02/25/16 Meclizine HCl [Antivert] 12.5 mg PO TID PRN PRN 07/12/16 Fluticasone 0.05% [Flonase Nasal [place]] 1 spray NASAL DAILY 01/11/17 Furosemide [Lasix] 80 mg PO BID 02/13/17 Insulin Detemir [Levemir FlexPen] 40 units SC BID 02/13/17 Linacolotide [Linzess] 145 mcg PO DAILY 07/24/17 Dapagliflozin Propanediol [Farxiga] 10 mg PO DAILY 07/27/17 Insulin Aspart [Novolog Flexpen] 26 units SC TIDAC 07/27/17 Iron Polysaccharide Complex [Ferrex 150] 150 mg PO DAILYCM 07/27/17 Linagliptin [Tradjenta] 5 mg PO DAILY 07/27/17 Plecanatide [Trulance] 3 mg PO DAILY 07/27/17 Polyethylene Glycol 3350 1 pkt PO DAILY PRN 07/27/17 Lisinopril [Zestril] 2.5 tab PO DAILY 07/30/17 Ceftriaxone 2 gm IV Q24 08/03/17 Hydrocodone Bitart/Apap 5-325 [[place] 5/325] 1 - 2 tab PO Q6H PRN PRN #10 tab 08/03/17 Metronidazole [Flagyl] 500 mg PO TID 08/03/17 Montelukast [Singulair] 10 mg PO DAILY 30 Days #0 08/03/17 Following Prescrptions Were Given to Patient: Hydrocodone Bitart/Apap 5-325 [[place] 5/325] 1 - 2 tab PO Q6H PRN PRN #10 tab PRN Reason: Moderate-severe pain Primary Care Physician: Johnathan Batres Chi, MD [Primary Care Provider] - In 1 Week Disposition: Detention facility Patient Condition:: Good Meaningful Use Info Meaningful Use Diagnoses (Choose all that apply): None applicable Code Visit Inpatient E&M: 03966 Disch Hosp
[2017-08-03 12:11] LABS: Bedside Glucose 232 mg/dL (70-110)
--- NOTE | 2017-08-03 12:41 | PN.ID_ITS ---
Patient Problems: Active and Suspected Problems Cellulitis of right foot (Acute) Severe sepsis (Acute) Subjective: Feeling ok, transfer to TCU planned, no fever, no n/v/d. - Physical Exam General: Alert, Cooperative, No apparent distress Lungs: Clear to auscultation, Normal air movement Cardiovascular: Regular rate, Regular Rhythm Abdomen: Soft, Non Tender, Non-Distended, Obese Skin: Ulcer/ Wound - reviewed photos of both feet incisions Vital Signs Temp Pulse Resp BP Pulse Ox 97.6 F L 54 L 16 129/52 H 96 08/03/17 09:33 08/03/17 11:01 08/03/17 09:33 08/03/17 09:33 08/03/17 09:33 Oxygen Flow Rate 2 Oxygen Delivery Method Room Air Weight: 101.5 kg Body Mass Index (BMI) 31.1 Intake and Output for Last 24 Hours 08/01/17 08/02/17 08/03/17 23:59 23:59 23:59 Intake Total 1008.5 / 1008.5 891 / 891 120 / 120 Output Total 2210 / 2210 1275 / 1275 1800 / 1800 Balance -1201.5 / -1201.5 -384 / -384 -1680 / -1680 Microbiology Past 72 Hours 07/31/17 15:55 Gram Stain - Final Bone - Right Foot Wound Culture - Final No growth aerobically. Anaerobic Culture - Preliminary No growth in 48 hours. 07/31/17 16:04 Gram Stain - Final Bone - Left Foot Wound Culture - Preliminary Gram negative rhoda Anaerobic Culture - Preliminary 07/31/17 15:55 Gram Stain - Final Bone - Right Foot Wound Culture - Preliminary No growth-Final to follow Anaerobic Culture - Preliminary Checking for anaerobes, further studies to follow. 07/31/17 15:55 Gram Stain - Final Bone - Left Foot Wound Culture - Preliminary No growth-Final to follow Anaerobic Culture - Preliminary Checking for anaerobes, further studies to follow. 07/27/17 22:12 Gram Stain - Final Wound - Right Foot Wound Culture - Final Serratia marcescens Corynebacterium striatum Anaerobic Culture - Final No anaerobic bacteria isolated. 07/31/17 14:30 C. difficile DNA Amplification - Final Stool POC Glucose 08/03/17 08/03/17 08/02/17 12:05 06:43 22:52 POC Glucose 232 H 131 H 288 H 08/02/17 16:20 POC Glucose 218 H Route of nutrition/ use of supplements: [] Nutritional Intake: [] IV Site: [] Meng Catheter: [] - Assessment/Plan Antibiotics: [] Assessment/Plan: [] Active and Suspected Problems Non-pressure chronic ulcer of other part of left foot with fat layer exposed ( Acute) Non-pressure chronic ulcer of other part of right foot with fat layer exposed ( Acute) PAD (peripheral artery disease) (Acute) Diabetes mellitus with neuropathy (Acute) Cellulitis of left foot (Acute) Cellulitis of right foot (Acute) Severe sepsis (Acute) Bilat foot DM osteomyelitis with PVD - recent angioplasty. MRI shows R 5th metatarsal and toe osteo as well as osteo of L foot stump. Surg debridement/ resection done 07/31. Wound cx with serratia and corynebacterium. Cont ceftriaxone/flagyl. L foot bone cx (+) for GNR. Plan is for 6 weeks of abx, stop date 09/11/17. Weekly bmp, cbc, and esr while on abx. ESR 08/01 was 53. May be able to change to po abx from iv prior to his stop date. Will follow final surg cx results. will follow.
--- NOTE | 2017-08-03 12:59 | NURSING ---
report called to kenneth choi
--- NOTE | 2017-08-03 13:18 | CASEMGMT ---
Physician completed orders. [place] notified RN and secretary administrative assistant. SW called patient's Passport Wally ROQUE, and let him know patient will be going to [facility] TCU today. He thanked [place] for the update. Patient is aware of d/c to TCU today. Plan: d/c to [facility] TCU under skilled level of care. Yas SCOTT MSW
== END 2017-08-03 13:44 | disposition skilled nursing facility (03) | DRG 854 ==
LOC: ED 17:15 → PCU 18:39
PROVIDERS: Anesthesiology; Podiatrist; Student in an Organized Health Care Education/Training Program; Emergency Provider Emergency Medicine; Family Provider Family Medicine Geriatric Medicine; PCP Family Medicine Geriatric Medicine; Visit Provider Internal Medicine
PROC: 0Y6M0ZF Detachment at Right Foot, Partial 5th Ray, Open Approach (ICD-10-PCS; principal; 2017-07-31 14:45)
DX: A41.9 Sepsis, unspecified organism (principal); L03.115 Cellulitis of right lower limb; E46 Unspecified protein-calorie malnutrition; E11.22 Type 2 diabetes mellitus with diabetic chronic kidney disease; E11.42 Type 2 diabetes mellitus with diabetic polyneuropathy; I27.20 Pulmonary hypertension, unspecified; E66.01 Morbid (severe) obesity due to excess calories; M86.8X7 Other osteomyelitis, ankle and foot; L03.116 Cellulitis of left lower limb; T87.89 Other complications of amputation stump; R65.20 Severe sepsis without septic shock; E03.9 Hypothyroidism, unspecified; E78.5 Hyperlipidemia, unspecified; K21.9 Gastro-esophageal reflux disease without esophagitis; N18.3 Chronic kidney disease, stage 3 (moderate); I12.9 Hypertensive chronic kidney disease with stage 1 through stage 4 chronic kidney disease, or unspecified chronic kidney disease; I87.2 Venous insufficiency (chronic) (peripheral); E11.69 Type 2 diabetes mellitus with other specified complication; L97.512 Non-pressure chronic ulcer of other part of right foot with fat layer exposed; E11.621 Type 2 diabetes mellitus with foot ulcer; L97.522 Non-pressure chronic ulcer of other part of left foot with fat layer exposed; E11.51 Type 2 diabetes mellitus with diabetic peripheral angiopathy without gangrene; I25.10 Atherosclerotic heart disease of native coronary artery without angina pectoris; E11.65 Type 2 diabetes mellitus with hyperglycemia; B96.89 Other specified bacterial agents as the cause of diseases classified elsewhere; G47.33 Obstructive sleep apnea (adult) (pediatric); Z95.1 Presence of aortocoronary bypass graft; Z79.4 Long term (current) use of insulin; Z68.31 Body mass index [BMI] 31.0-31.9, adult; Z87.891 Personal history of nicotine dependence; Z89.432 Acquired absence of left foot
CPT/HCPCS: 36245; 36415; 37224; 71046; 73620; 73630; 73718; 75710; 76000; 76937; 80048; 80069; 82575; 82962; 83036; 83605; 84443; 84484; 85025; 85027; 85652; 86140; 87015; 87040; 87070; 87075; 87077; 87086; 87102; 87116; 87186; 87205; 87206; 87493; 87641; 88304; 88305; 88311; 88312; 93005; 94762; 97110; 97161; 97166; 97530; 97535; 99152; 99153; 99285; C1725; J7030; J7040; Q9967; A4216; C1760; C1769; C1887; C1894; J0696

== ENCOUNTER 2017-08-03 13:55 | Inpatient (IN) | payer MEDICARE, SELFPAY ==
[2017-08-03 14:07] VITALS: BP 150/69; PULSE 60; RESP 17; TEMP 36.6; O2SAT 97; BMI 34.6
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
--- NOTE | 2017-08-03 15:35 | RAD_ITS ---
STUDY: X-RAY - ABDOMEN/PELVIS REASON FOR EXAM: Male, 67 years old. Abdominal distention and constipation. TECHNIQUE: 1 view COMPARISON: None. FINDINGS: Nondistended stomach. Nondistended small bowel. Moderate gas and stool in the colon without distention. Stool and gas appear to be present to the level of the rectum. Negative for gross organomegaly. Status post prior cholecystectomy. Vascular calcifications. Normal visualized osseous structures. RAD/Abdomen Single View IMPRESSION: Negative for evidence of bowel obstruction or perforation. Moderate stool and gas of the colon present to the level of the rectum without gross distention. Electronically Signed: Kiley Parekh MD at 17:06 EST , Service support ,
[2017-08-03 15:36] VITALS: BP 123/66; PULSE 79; RESP 16; TEMP 36.8; O2SAT 98
[2017-08-03] MEDS: 0.9% NaCl IVPB Med Flush (250 mL) 15 ML IV (17:20)
--- NOTE | 2017-08-03 17:20 | RAD_ITS ---
STUDY: X-RAY CHEST REASON FOR EXAM: Male, 67 years old. PICC placement TECHNIQUE: Single AP portable view of the chest. COMPARISON: Prior chest radiograph of July 27, 2017. The FINDINGS: Right PICC ends in the distal superior vena cava. With no apparent sequelae of line placement. The lungs are clear and expanded. There is no demonstrated pleural abnormality. Normal size heart. Pleural pericardial scarring. Implantable loop recorder projects over the left chest. Status post prior midline sternotomy. Normal visualized pulmonary arteries. Normal visualized aortic arch and descending thoracic aorta. Normal visualized thoracic spine. Normal visualized ribs, clavicles, and shoulders. There is no demonstrated abnormality of the visualized soft tissue structures of the upper abdomen. RAD/CXR for Line Placement IMPRESSION: Right PICC ends in the distal superior vena cava without complication of line placement. No acute cardiopulmonary findings or changes. Implantable loop recorder projects over the left chest. Electronically Signed: Kiley Parekh MD at 17:44 EST , Service support ,
[2017-08-03 17:25] LABS: Bedside Glucose 199 mg/dL (70-110)
[2017-08-03] MEDS: 0.9% NaCl Peripheral Flush Adult/Peds IV (17:37)
[2017-08-03 17:43] VITALS: PULSE 79
[2017-08-03] MEDS: Metoprolol Tartrate 100 MG Tablet PO (17:43)
[2017-08-03] MEDS: Senna/Docusate Sodium 1 Tablet 2 TABLET PO (17:44)
[2017-08-03] MEDS: Furosemide 80 MG Tablet PO (17:46)
[2017-08-03] MEDS: Glucerna Shake 120 ML LIQUID PO (17:46)
[2017-08-03] MEDS: Magnesium Citrate 300 ML PO (17:49)
--- NOTE | 2017-08-03 18:27 | NURSING ---
PT Main ordered at 1800, Pt order time changed due to Dr orders.
[2017-08-03 20:26] VITALS: O2SAT 99
[2017-08-03 21:06] LABS: Bedside Glucose 129 mg/dL (70-110)
[2017-08-03] MEDS: metroNIDAZOLE 500 MG Tablet PO (21:36)
[2017-08-03] MEDS: Atorvastatin Calcium 80 MG Tablet PO (21:36)
[2017-08-04 02:06] LABS: Bedside Glucose 160 mg/dL (70-110)
[2017-08-04] MEDS: Polyethylene Glycol 3350 17 GM PACKET PO (04:23)
[2017-08-04] MEDS: Senna/Docusate Sodium 1 Tablet 2 TABLET PO ×2 (04:24→17:01)
[2017-08-04] MEDS: Levothyroxine 100 MCG Tablet 200 MCG PO (04:24)
[2017-08-04] MEDS: Pantoprazole Sodium 20 MG Tablet PO (04:24)
[2017-08-04] MEDS: Lisinopril 2.5 MG Tablet PO (04:24)
[2017-08-04] MEDS: LINAGLIPTIN 5 MG TABLET PO (04:24)
[2017-08-04 04:25] VITALS: BP 137/63; PULSE 65
[2017-08-04] MEDS: Clopidogrel Bisulfate 75 MG Tablet PO (04:25)
[2017-08-04] MEDS: Furosemide 80 MG Tablet PO ×2 (04:25→17:01)
[2017-08-04] MEDS: metroNIDAZOLE 500 MG Tablet PO ×3 (04:25→21:23)
[2017-08-04] MEDS: Metoprolol Tartrate 100 MG Tablet PO ×2 (04:25→17:02)
[2017-08-04] MEDS: 0.9% NaCl Peripheral Flush Adult/Peds IV ×3 (05:09→17:18)
[2017-08-04 05:15] LABS: Absolute Lymphocyte Count 1.38 X10^3/ul (0.83-4.51); Absolute Neutrophil Count 7.8 X10^3/uL (2.0-7.7); Basophil# 0.05 X10^3/uL; Basophil% 0.5 % (0-1); Eosinophil# 0.68 X10^3/uL; Eosinophils% 6.1 % (0-5); Hematocrit 35.1 % (40-54); Hemoglobin 11.9 g/dl (13.0-16.5); Lymphocyte # 1.38 X10^3/ul (4.0); Lymphocyte % 12.4 % (19-41); Mean Corp Hgb Conc 33.9 g/gl (32-36); Mean Corpuscular Volume 88.4 fL (80-94); Mean Platelet Vol. 9.8 fl (6.2-12.0); Monocyte# 1.11 X10^3/uL; Neutrophil # 7.79 X10^3/uL (2.7-7.7); Neutrophil % 70.3 % (47-70); Platelet Count 318 K/mm3 (150-450); RBC Distribution Width CV 14.5 % (11.6-14.6); RBC Distribution Width SD 45.8 fl (35.1-43.9); Red Blood Count 3.97 M/mm3 (4.6-6.2); White Blood Count 11.1 K/mm3 (4.4-11.0)
[2017-08-04 05:24] LABS: POSITIVE COUNT NO; POSITIVE DIFFERENTIAL NO; POSITIVE MORPHOLOGY NO
[2017-08-04 05:37] LABS: Anion Gap 7 (5-15); BUN 51 mg/dL (7-18); BUN/Creat Ratio 45.1 RATIO (10-20); Calcium,Total 8.1 mg/dL (8.5-10.1); Chloride 102 mmol/L (98-107); Creatinine, Serum 1.13 mg/dL (0.70-1.30); EST Glomerular Filtration Rate 69 mL/min (>60); Est Glom Filt Rate - Afr Amer 84 mL/min (>60); Estimated Creatinine Clearance 69.41 ml/min; Glucose 197 mg/dL (74-106); Potassium 4.5 mmol/L (3.5-5.1); Sodium Level 140 mmol/L (136-145)
[2017-08-04] MEDS: Enoxaparin 40 MG/0.4 ML Syringe SC (06:30)
[2017-08-04 06:36] LABS: Bedside Glucose 196 mg/dL (70-110)
[2017-08-04] MEDS: Aspirin 81 MG TAB.CHEW PO (08:24)
[2017-08-04] MEDS: Glucerna Shake 120 ML LIQUID PO ×3 (08:24→17:04)
[2017-08-04] MEDS: Iron Polysaccharide Complex 150 MG CAPSULE PO (08:24)
[2017-08-04 10:00] VITALS: PULSE 61; RESP 18; O2SAT 97
[2017-08-04] MEDS: Tuberculin,Purif.prot.deriv. 50 TU/ML Vial 5 ML ID (10:28)
[2017-08-04 11:26] LABS: Bedside Glucose 140 mg/dL (70-110)
[2017-08-04] MEDS: 0.9% NaCl IVPB Med Flush (250 mL) 15 ML IV ×2 (11:28→17:18)
--- NOTE | 2017-08-04 11:53 | NURSING ---
PT UNDER PRECAUTIONS THIS SHIFT
--- NOTE | 2017-08-04 12:07 | NURSING ---
DR. AUSTIN PICKENS, WEIGHT BEARING STATUS CLARIFIED, STATES SHE WILL BE IN TO DO DRESSINGS TOMORROW OR SUNDAY. PT UPDATED.
[2017-08-04 15:28] VITALS: BP 136/62; PULSE 68; RESP 18; TEMP 36.8; O2SAT 93
[2017-08-04 17:02] VITALS: BP 136/62; PULSE 68
[2017-08-04 17:11] LABS: Bedside Glucose 93 mg/dL (70-110)
[2017-08-04 18:21] LABS: Bedside Glucose 160 mg/dL (70-110)
[2017-08-04 21:11] LABS: Bedside Glucose 108 mg/dL (70-110)
[2017-08-04] MEDS: Atorvastatin Calcium 80 MG Tablet PO (21:23)
[2017-08-05 02:31] LABS: Bedside Glucose 175 mg/dL (70-110)
[2017-08-05] MEDS: metroNIDAZOLE 500 MG Tablet PO ×3 (05:30→20:43)
[2017-08-05] MEDS: Furosemide 80 MG Tablet PO ×2 (05:36→17:33)
[2017-08-05] MEDS: Levothyroxine 100 MCG Tablet 200 MCG PO (05:38)
[2017-08-05] MEDS: Senna/Docusate Sodium 1 Tablet 2 TABLET PO ×2 (05:38→17:33)
[2017-08-05] MEDS: Clopidogrel Bisulfate 75 MG Tablet PO (05:38)
[2017-08-05] MEDS: LINAGLIPTIN 5 MG TABLET PO (05:39)
[2017-08-05] MEDS: Lisinopril 2.5 MG Tablet PO (05:40)
[2017-08-05] MEDS: Pantoprazole Sodium 20 MG Tablet PO (05:41)
[2017-08-05] MEDS: Enoxaparin 40 MG/0.4 ML Syringe SC (05:41)
[2017-08-05] MEDS: Polyethylene Glycol 3350 17 GM PACKET PO (05:41)
[2017-08-05] MEDS: Glucerna Shake 120 ML LIQUID PO ×3 (05:54→17:32)
[2017-08-05 05:55] VITALS: BP 127/58; PULSE 66
[2017-08-05] MEDS: Metoprolol Tartrate 100 MG Tablet PO ×2 (05:55→17:33)
[2017-08-05 07:01] LABS: Bedside Glucose 197 mg/dL (70-110)
--- NOTE | 2017-08-05 09:10 | NURSING ---
Pt in precautions this shift.
[2017-08-05] MEDS: Iron Polysaccharide Complex 150 MG CAPSULE PO (09:11)
[2017-08-05] MEDS: Aspirin 81 MG TAB.CHEW PO (09:11)
[2017-08-05] MEDS: 0.9% NaCl Peripheral Flush Adult/Peds IV ×2 (09:51→18:09)
[2017-08-05] MEDS: 0.9% NaCl IVPB Med Flush (250 mL) 15 ML IV ×2 (09:52→18:09)
[2017-08-05 11:16] LABS: Bedside Glucose 175 mg/dL (70-110)
[2017-08-05 15:21] VITALS: BP 124/51; PULSE 63; RESP 16; TEMP 36.8; O2SAT 93
[2017-08-05 17:06] LABS: Bedside Glucose 124 mg/dL (70-110)
--- NOTE | 2017-08-05 17:15 | NURSING ---
This nurse spoke with pharmacist, no IV Vanc on TCU for 17:00 dose
[2017-08-05 17:33] VITALS: BP 124/51; PULSE 63
[2017-08-05] MEDS: Atorvastatin Calcium 80 MG Tablet PO (20:43)
[2017-08-05 20:46] LABS: Bedside Glucose 143 mg/dL (70-110)
[2017-08-05] MEDS: HYDROcodone Bitartrate/Apap 5/325 Tablet PO (20:54)
[2017-08-05 22:09] VITALS: PULSE 71; RESP 18; O2SAT 98
--- NOTE | 2017-08-05 22:38 | NURSING ---
Pt in precautions this shift for MRSA in wound
[2017-08-06 02:11] LABS: Bedside Glucose 123 mg/dL (70-110)
[2017-08-06 06:11] LABS: Bedside Glucose 135 mg/dL (70-110)
[2017-08-06] MEDS: Polyethylene Glycol 3350 17 GM PACKET PO (06:55)
[2017-08-06] MEDS: Glucerna Shake 120 ML LIQUID PO ×3 (06:55→17:11)
[2017-08-06] MEDS: Levothyroxine 100 MCG Tablet 200 MCG PO (06:56)
[2017-08-06] MEDS: metroNIDAZOLE 500 MG Tablet PO ×3 (06:56→20:58)
[2017-08-06] MEDS: Furosemide 80 MG Tablet PO ×2 (06:56→17:12)
[2017-08-06] MEDS: Senna/Docusate Sodium 1 Tablet 2 TABLET PO (06:57)
[2017-08-06] MEDS: Enoxaparin 40 MG/0.4 ML Syringe SC (06:58)
[2017-08-06] MEDS: Lisinopril 2.5 MG Tablet PO (06:58)
[2017-08-06] MEDS: Clopidogrel Bisulfate 75 MG Tablet PO (06:58)
[2017-08-06] MEDS: LINAGLIPTIN 5 MG TABLET PO (06:58)
[2017-08-06] MEDS: Pantoprazole Sodium 20 MG Tablet PO (07:00)
[2017-08-06 07:09] VITALS: BP 124/66; PULSE 59
[2017-08-06] MEDS: Metoprolol Tartrate 100 MG Tablet PO ×2 (07:09→17:11)
[2017-08-06] MEDS: Aspirin 81 MG TAB.CHEW PO (07:56)
[2017-08-06] MEDS: Iron Polysaccharide Complex 150 MG CAPSULE PO (07:56)
[2017-08-06] MEDS: 0.9% NaCl Peripheral Flush Adult/Peds IV ×2 (09:08→16:10)
[2017-08-06 09:53] VITALS: PULSE 71; RESP 18; O2SAT 95
--- NOTE | 2017-08-06 10:18 | PN.ID_ITS ---
Patient Problems: Active and Suspected Problems Sepsis (Acute) Osteomyelitis of foot (Acute) Subjective: Feeling ok, c/o boredom. No fever, no n/v/d. No issues with picc. - Physical Exam General: Alert, Cooperative, No apparent distress Lungs: Clear to auscultation, Normal air movement Cardiovascular: Regular rate, Regular Rhythm Abdomen: Soft, Non Tender, Non-Distended, Obese Extremities: Edema Skin: - - Bilat feet wrapped Vital Signs Temp Pulse Resp BP Pulse Ox 98.2 F 71 18 124/66 H 95 08/05/17 15:21 08/06/17 09:53 08/06/17 09:53 08/06/17 07:09 08/06/17 09:53 Oxygen Delivery Method Room Air Weight: 112.5 kg Body Mass Index (BMI) 34.6 Finger Stick Blood Glucose 164 Intake and Output for Last 24 Hours 08/04/17 08/05/17 08/06/17 23:59 23:59 23:59 Intake Total 1302 / 1302 780 / 780 240 / 240 Output Total 900 / 900 950 / 950 Balance 402 / 402 -170 / -170 240 / 240 POC Glucose 08/06/17 08/06/17 08/05/17 06:07 02:06 20:42 POC Glucose 135 H 123 H 143 H 08/05/17 08/05/17 17:02 11:09 POC Glucose 124 H 175 H Route of nutrition/ use of supplements: [] Nutritional Intake: [] IV Site: [] Meng Catheter: [] - Assessment/Plan Antibiotics: [] Assessment/Plan: [] Active and Suspected Problems Sepsis (Acute) Osteomyelitis of foot (Acute) Bilat foot DM osteomyelitis with PVD - recent angioplasty. MRI shows R 5th metatarsal and toe osteo as well as osteo of L foot stump. Surg debridement/ resection done 07/31. Bilat bone cx with serratia and corynebacterium and one also with methicillin-resistant S. hominis. Cont vanc/ceftriaxone/flagyl. Plan is for 6 weeks of abx, stop date 09/11/17. Weekly bmp, cbc, and esr while on abx. ESR 08/01 was 53. May be able to change to po abx from iv prior to his stop date. 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 Multiple neg cxs for MRSA since then. Staph here was CoNS. Ok to stop contact isolation. will follow.
--- NOTE | 2017-08-06 11:05 | PCM.RX.CS ---
Subjective/Objective Date: 08/06/17 Time: 11:05 Antibiotic: Vancomycin Type of Consult: New start Indications for Therapy: Bone Labs: Sodium 140 mmol/L (136-145) 08/04/17 05:05 Potassium 4.5 mmol/L (3.5-5.1) 08/04/17 05:05 Chloride 102 mmol/L (98-107) 08/04/17 05:05 Carbon Dioxide 31.0 mmol/L (21.0-32.0) 08/04/17 05:05 Anion Gap 7 (5-15) 08/04/17 05:05 BUN 51 mg/dL (7-18) H 08/04/17 05:05 Creatinine 1.13 mg/dL (0.70-1.30) 08/04/17 05:05 Est GFR (MDRD) Af Amer 84 mL/min (>60) 08/04/17 05:05 Est GFR (MDRD) Non-Af 69 mL/min (>60) 08/04/17 05:05 BUN/Creatinine Ratio 45.1 RATIO (10-20) H 08/04/17 05:05 Glucose 197 mg/dL (74-106) H 08/04/17 05:05 Estimated Creatinine Clearance: 60-70 mL/min Pharmacy Plan for Drug Dosing: Goal vancomycin trough 15-20 mcg/mL. Patient received 1750mg IV for a few days, recommend vancomycin 1250mg IV q12h for est trough 17 mcg/mL. Check prior to 4th dose. Pharmacy Service will continue to monitor and adjust dosing as required. Pharmacy to order these labs: Trough - Vancomycin Labs to be done on (date): 08/08/17 Labs to be done (time): 05:00
[2017-08-06 11:12] LABS: Bedside Glucose 205 mg/dL (70-110)
[2017-08-06 15:37] VITALS: BP 149/51; PULSE 60; RESP 18; TEMP 36.8; O2SAT 95
[2017-08-06 17:11] VITALS: PULSE 60
[2017-08-06 17:11] LABS: Bedside Glucose 151 mg/dL (70-110)
--- NOTE | 2017-08-06 17:46 | NURSING ---
Addendum entered by Soraya Jamison 08/06/17 17:47: check BMP and BNP on sunday Original Note: pt noted with increased pitting edema ble's, new order to change PO lasix to IV lasix same dose
[2017-08-06] MEDS: Atorvastatin Calcium 80 MG Tablet PO (20:59)
[2017-08-06 21:10] LABS: Bedside Glucose 259 mg/dL (70-110)
[2017-08-07 02:06] LABS: Bedside Glucose 231 mg/dL (70-110)
[2017-08-07] MEDS: Polyethylene Glycol 3350 17 GM PACKET PO (05:03)
[2017-08-07] MEDS: LINAGLIPTIN 5 MG TABLET PO (05:05)
[2017-08-07] MEDS: Senna/Docusate Sodium 1 Tablet 2 TABLET PO ×2 (05:05→17:51)
[2017-08-07] MEDS: Levothyroxine 100 MCG Tablet 200 MCG PO (05:05)
[2017-08-07] MEDS: Lisinopril 2.5 MG Tablet PO (05:05)
[2017-08-07] MEDS: metroNIDAZOLE 500 MG Tablet PO ×3 (05:05→21:53)
[2017-08-07 05:06] VITALS: BP 127/66; PULSE 68
[2017-08-07] MEDS: Metoprolol Tartrate 100 MG Tablet PO ×2 (05:06→17:51)
[2017-08-07] MEDS: Enoxaparin 40 MG/0.4 ML Syringe SC (05:06)
[2017-08-07] MEDS: Clopidogrel Bisulfate 75 MG Tablet PO (05:06)
[2017-08-07] MEDS: Pantoprazole Sodium 20 MG Tablet PO (05:06)
[2017-08-07] MEDS: Furosemide 100 MG/10 ML Vial 80 MG IV ×2 (05:07→15:02)
[2017-08-07] MEDS: 0.9% NaCl IVPB Med Flush (250 mL) 15 ML IV (05:10)
[2017-08-07] MEDS: 0.9% NaCl Peripheral Flush Adult/Peds IV ×4 (05:22→17:49)
[2017-08-07 05:48] LABS: Erythrocyte Sedimentation Rate 51 mm/hr (0-20)
[2017-08-07 06:46] LABS: Bedside Glucose 356 mg/dL (70-110)
[2017-08-07] MEDS: Aspirin 81 MG TAB.CHEW PO (07:40)
[2017-08-07] MEDS: Iron Polysaccharide Complex 150 MG CAPSULE PO (07:40)
--- NOTE | 2017-08-07 09:07 | NURSING ---
wound photo: right foot (plantar/lateral view)
--- NOTE | 2017-08-07 09:08 | NURSING ---
wound photo: right foot (dorsal view)
--- NOTE | 2017-08-07 09:09 | NURSING ---
wound photo: left foot (plantar/medial view)
--- NOTE | 2017-08-07 09:09 | NURSING ---
wound photo: left foot (dorsal view)
[2017-08-07 11:21] LABS: Bedside Glucose 246 mg/dL (70-110)
[2017-08-07] MEDS: Glucerna Shake 120 ML LIQUID PO ×2 (11:47→17:48)
--- NOTE | 2017-08-07 14:56 | CASEMGMT ---
Brief interview for mental status (BIMS) and resident mood interview (PHQ-9) completed on this day. BIMS score 15/15. PHQ-9 score 12/05
[2017-08-07 15:21] LABS: Bedside Glucose 118 mg/dL (70-110)
[2017-08-07 16:00] VITALS: BP 116/44; PULSE 64; RESP 18; TEMP 37; O2SAT 97
[2017-08-07 16:51] LABS: Bedside Glucose 126 mg/dL (70-110)
--- NOTE | 2017-08-07 17:22 | CHAPLAIN ---
Type of Pastoral Visit ___ Initial Visit _x__ Follow-up Visit ___ On-call Visit ___ General Patient Visit ___ Spiritual Assessment ___ Family Conference ___ Bereavement ___ Rapid Response ___ Code Blue ___ Other (describe below) Pastoral Care Referral From _x__ Patient ___ Family ___ Nurse ___ Physician ___ Business Reporting Developer ___ Desk Monitor ___ Other (describe below) Sacrament/Intervention _x__ Active listening ___ Anointing ___ Uatsdin ___ Bereavement ___ Communion ___ Elsa exploration ___ ___ Life review _x__ Prayer ___ Reconciliation ___ Sacrament of Sick _x__ Supportive presence ___ Wedding ___ Other (describe below) Pastoral Comments
[2017-08-07 17:51] VITALS: BP 116/44; PULSE 64
[2017-08-07 18:51] LABS: Bedside Glucose 148 mg/dL (70-110)
[2017-08-07 21:41] LABS: Bedside Glucose 223 mg/dL (70-110)
[2017-08-07] MEDS: Atorvastatin Calcium 80 MG Tablet PO (21:54)
[2017-08-07 22:00] VITALS: BP 109/65; PULSE 64; RESP 18; TEMP 36.4; O2SAT 92
[2017-08-08 05:54] VITALS: BP 133/60; PULSE 75
[2017-08-08] MEDS: metroNIDAZOLE 500 MG Tablet PO ×3 (05:54→21:46)
[2017-08-08] MEDS: Metoprolol Tartrate 100 MG Tablet PO ×2 (05:54→16:46)
[2017-08-08] MEDS: Senna/Docusate Sodium 1 Tablet 2 TABLET PO (05:54)
[2017-08-08] MEDS: Lisinopril 2.5 MG Tablet PO (05:54)
[2017-08-08] MEDS: Clopidogrel Bisulfate 75 MG Tablet PO (05:54)
[2017-08-08] MEDS: Pantoprazole Sodium 20 MG Tablet PO (05:54)
[2017-08-08] MEDS: Levothyroxine 100 MCG Tablet 200 MCG PO (05:54)
[2017-08-08] MEDS: Enoxaparin 40 MG/0.4 ML Syringe SC (05:55)
[2017-08-08] MEDS: LINAGLIPTIN 5 MG TABLET PO (05:55)
[2017-08-08] MEDS: Furosemide 100 MG/10 ML Vial 80 MG IV ×2 (05:56→13:33)
[2017-08-08 06:00] VITALS: RESP 20; O2SAT 95
[2017-08-08] MEDS: 0.9% NaCl PICC Flush IV ×2 (06:00→13:35)
[2017-08-08] MEDS: 0.9% NaCl IVPB Med Flush (250 mL) 15 ML IV (06:06)
[2017-08-08 06:30] LABS: Anion Gap 7 (5-15); BUN 42 mg/dL (7-18); BUN/Creat Ratio 33.1 RATIO (10-20); Calcium,Total 8.6 mg/dL (8.5-10.1); Chloride 100 mmol/L (98-107); Creatinine, Serum 1.27 mg/dL (0.70-1.30); EST Glomerular Filtration Rate 60 mL/min (>60); Est Glom Filt Rate - Afr Amer 73 mL/min (>60); Estimated Creatinine Clearance 61.76 ml/min; Glucose 226 mg/dL (74-106); Potassium 4.5 mmol/L (3.5-5.1); Sodium Level 137 mmol/L (136-145)
[2017-08-08 06:43] LABS: Vancomycin, Trough Level 26.6 ug/mL (5.0-15.0)
[2017-08-08 07:01] LABS: Bedside Glucose 273 mg/dL (70-110)
[2017-08-08 07:11] LABS: BNP,B-Type NATRIURETIC PEPTIDE 246.2 pg/mL (0-100)
[2017-08-08] MEDS: 0.9% NaCl Peripheral Flush Adult/Peds IV (09:03)
[2017-08-08] MEDS: Aspirin 81 MG TAB.CHEW PO (09:07)
[2017-08-08] MEDS: Iron Polysaccharide Complex 150 MG CAPSULE PO (09:07)
--- NOTE | 2017-08-08 11:13 | CASEMGMT ---
Plan of care meeting held. Resident present, no support person present at this time. Resident plans to discharge home alone at time of discharge. No discharge date set at this time. Resident to continue with further care and treatment on the Transitional Care Unit. Support given. Will continue to follow. Nohemi SYED, [employer]
[2017-08-08 11:26] LABS: Bedside Glucose 376 mg/dL (70-110)
[2017-08-08] MEDS: Glucerna Shake 120 ML LIQUID PO ×2 (11:27→16:45)
--- NOTE | 2017-08-08 11:33 | NURSING ---
Per Dr Le, continue to current wound drsg order. Change drsg daily.
--- NOTE | 2017-08-08 12:33 | PCM.PN.RX ---
<JessieNathaniel carrizales - Last Filed: 08/08/17 12:33> Progress Note - Pharmacy Subjective: TCU Admission Objective: Allergies adhesive Allergy (Verified 02/13/17 14:38) SKIN GETS PULLED OFF SKIN GETS PULLED OFF latex Allergy (Verified 02/13/17 14:38) Hives Home Medications Medication Instructions Recorded Clopidogrel Bisulfate [Plavix] 75 mg PO DAILY 05/15/13 Levothyroxine [Synthroid] 200 mcg PO DAILY 05/15/13 Metoprolol Tartrate [Lopressor 100 mg PO BID 05/15/13 (beta adonis)] Atorvastatin Calcium [Lipitor] 80 mg PO QHS 01/12/16 Pantoprazole Sodium [Protonix] 20 mg PO DAILY 01/12/16 Aspirin [Aspirin, Baby] 81 mg PO DAILY@0800 02/25/16 Baclofen [Lioresal] 10 mg PO TID 02/25/16 Meclizine HCl [Antivert] 12.5 mg PO TID PRN PRN 07/12/16 Fluticasone 0.05% [Flonase Nasal 1 spray NASAL DAILY 01/11/17 [place]] Furosemide [Lasix] 80 mg PO BID 02/13/17 Insulin Detemir [Levemir FlexPen] 40 units SC BID 02/13/17 Linacolotide [Linzess] 145 mcg PO DAILY 07/24/17 Dapagliflozin Propanediol [Farxiga] 10 mg PO DAILY 07/27/17 Insulin Aspart [Novolog Flexpen] 26 units SC TIDAC 07/27/17 Iron Polysaccharide Complex 150 mg PO DAILYCM 07/27/17 [Ferrex 150] Linagliptin [Tradjenta] 5 mg PO DAILY 07/27/17 Plecanatide [Trulance] 3 mg PO DAILY 07/27/17 Polyethylene Glycol 3350 1 pkt PO DAILY PRN 07/27/17 Lisinopril [Zestril] 2.5 tab PO DAILY 07/30/17 Ceftriaxone 2 gm IV Q24 08/03/17 Hydrocodone Bitart/Apap 5-325 1 - 2 tab PO Q6H PRN PRN #10 tab 08/03/17 [[place] 5/325] Metronidazole [Flagyl] 500 mg PO TID 08/03/17 Montelukast [Singulair] 10 mg PO DAILY 30 Days #0 08/03/17 Current Medications Generic Name Dose Route Start Last Admin Trade Name Freq PRN Reason Stop Dose Admin Hydrocodone Bitart/Acetaminophen 1 - 2 tablet 08/03/17 15:15 08/05/17 20:54 [place] 5mg-325mg PO 1 tablet Q6H PRN PRN Administration Moderate-severe pain Aspirin 81 mg 08/04/17 08:00 08/08/17 09:07 Aspirin, Baby PO 81 mg DAILY@0800 [facility] Administration Atorvastatin Calcium 80 mg 08/03/17 22:00 08/07/17 21:54 Lipitor PO 80 mg QHS [facility] Administration Bisacodyl 10 mg 08/03/17 15:23 Dulcolax PO DAILY PRN PRN Constipation Clopidogrel Bisulfate 75 mg 08/04/17 06:00 08/08/17 05:54 Plavix PO 75 mg DAILY [facility] Administration Dextrose 0 gm 08/03/17 21:19 D50w Syringe IV X1 PRN Hypoglycemia Protocol Enoxaparin Sodium 40 mg 08/04/17 06:00 08/08/17 05:55 Lovenox SC 40 mg DAILY@0600 [facility] Administration Furosemide 80 mg 08/07/17 06:00 08/08/17 05:56 Lasix IV 80 mg BID@0600,1400 [facility] Administration Glucagon 1 mg 08/03/17 21:19 IM .X1 PRN Hypoglycemia Heparin Sodium (Beef Lung) 500 unit 08/03/17 16:17 Heparin 500 Unit/5 Ml (100/Ml) IV UD PRN HEPARIN FLUSH Ceftriaxone Sodium 2 gm/ 50 mls @ 100 mls/hr 08/04/17 10:00 08/08/17 08:59 Sodium Chloride IV 09/11/17 11:00 100 mls/hr Q24 [facility] Administration Sodium Chloride 250 mls @ 15 mls/hr 08/03/17 16:31 08/08/17 06:06 IV 15 mls/hr .[id number] PRN Administration SALINE FLUSH Vancomycin HCl 1,750 mg/ 535 mls @ 260 mls/hr 08/09/17 08:00 Sodium Chloride IV Q24H [facility] Insulin Aspart 23 units 08/07/17 18:59 08/08/17 11:26 Novolog Flexpen ([facility]) SC 23 units TIDAC [facility] Administration Insulin Detemir 35 units 08/07/17 18:59 08/08/17 09:06 Levemir ([facility]) SC 35 u 1000,2200 [facility] Administration Levothyroxine Sodium 200 mcg 08/04/17 06:00 08/08/17 05:54 Synthroid PO 200 mcg DAILY [facility] Administration Linagliptin 5 mg 08/04/17 06:00 08/08/17 05:55 Tradjenta PO 5 mg DAILY [facility] Administration Lisinopril 2.5 mg 08/04/17 06:00 08/08/17 05:54 Zestril PO 2.5 mg DAILY [facility] Administration Metoprolol Tartrate 100 mg 08/03/17 18:00 08/08/17 05:54 Lopressor (Beta Adonis) PO 100 mg BID [facility] Administration Metronidazole 500 mg 08/03/17 22:00 08/08/17 05:54 Flagyl PO 500 mg TID [facility] Administration Nutritional Formula (Lactose Free) 120 ml 08/03/17 17:45 08/08/17 11:27 Glucerna Shake PO 120 ml TIDCM [facility] Administration Pantoprazole Sodium 20 mg 08/04/17 06:00 08/08/17 05:54 Protonix PO 20 mg DAILY [facility] Administration Polyethylene Glycol 17 gm 08/04/17 06:00 08/08/17 05:59 Miralax PO Not Given DAILY [facility] Polysaccharide Iron Complex 150 mg 08/04/17 08:00 08/08/17 09:07 Ferrex 150 PO 150 mg DAILYCM [facility] Administration Senna/Docusate Sodium 2 tablet 08/03/17 18:00 08/08/17 05:54 Senokot-S, Maggy-Colace PO 2 tablet BID [facility] Administration Sodium Chloride 5 - 30 ml 08/03/17 16:17 08/08/17 09:03 IV 20 ml UD PRN Administration SALINE FLUSH Sodium Chloride 10 - 20 ml 08/03/17 16:17 08/08/17 06:00 IV 20 ml UD PRN Administration PICC FLUSH Tuberculin PPD 5 tu 08/11/17 10:00 Tubersol, Aplisol, Ppd ID 08/11/17 10:01 X1 ONE Problem List Sepsis (Acute) Osteomyelitis of foot (Acute) Diabetes mellitus (Chronic) Vital Signs Temp Pulse Resp BP Pulse Ox 97.6 F L 75 20 H 133/60 H 95 08/07/17 22:00 08/08/17 05:54 08/08/17 06:00 08/08/17 05:54 08/08/17 06:00 Oxygen Delivery Method Room Air Weight: 112.5 kg Body Mass Index (BMI) 34.6 Finger Stick Blood Glucose 164 Sodium 137 mmol/L (136-145) 08/08/17 05:05 Potassium 4.5 mmol/L (3.5-5.1) 08/08/17 05:05 Chloride 100 mmol/L (98-107) 08/08/17 05:05 Carbon Dioxide 30.0 mmol/L (21.0-32.0) 08/08/17 05:05 Anion Gap 7 (5-15) 08/08/17 05:05 BUN 42 mg/dL (7-18) H 08/08/17 05:05 Creatinine 1.27 mg/dL (0.70-1.30) 08/08/17 05:05 Est GFR (MDRD) Af Amer 73 mL/min (>60) 08/08/17 05:05 Est GFR (MDRD) Non-Af 60 mL/min (>60) 08/08/17 05:05 BUN/Creatinine Ratio 33.1 RATIO (10-20) H 08/08/17 05:05 Glucose 226 mg/dL (74-106) H 08/08/17 05:05 Vancomycin Trough 26.6 ug/mL (5.0-15.0) H 08/08/17 05:05 Assessment/Plan: 1) Pain Hydrocodone/APAP prn. Continue to monitor prn medication use, daily pain scores. 2) HTN/CAD/CHF Lisinopril, metoprolol, atorvastatin, ASA, clopidogrel, furosemide IV twice daily. BP/HR within goal ranges, BUN/SCr at baseline, K wnl. Continue to monitor BP/HR, renal function, electrolytes, s/s chest pain. * 3) ID Vancomycin daily, metronidazole 3x daily, ceftriaxone until 09/11. ID following. Please clarify stop dates if possible. Continue to monitor s/s infection. 4) DM2 Linagliptin, insulin detemir twice daily, aspart with meals. Avg BGT trending up, last few checks in 200s-300s. Continue to monitor BGT, A1c, s/s hyper/hypoglycemia. 5) Nutrition Fe, Glucerna. Continue to monitor clinically. 6) Hypothyroidism Levothyroxine daily. Continue to monitor s/s hyper/hypothyroidism. 7) GI Pantoprazole daily. Continue to monitor s/s GI distress. 8) DVT PPx Enoxaparin daily. Continue to monitor s/s bleeding/clot. Psychotropic Medications: None Unnecessary Medications: None Bowel Regimen: 9) Senna/s, PEG< prn bisacodyl. Continue to monitor prn medication use, for constipation/diarrhea. Date of Note:: 08/08/17 - Provider Comments Provider responsibility: Provider responsible to enter orders to implement recommendations <Johnathan Batres Chi - Last Filed: 08/08/17 17:55> Progress Note - Pharmacy Subjective: [] Objective: Allergies adhesive Allergy (Verified 02/13/17 14:38) SKIN GETS PULLED OFF SKIN GETS PULLED OFF latex Allergy (Verified 02/13/17 14:38) Hives Home Medications Medication Instructions Recorded Clopidogrel Bisulfate [Plavix] 75 mg PO DAILY 05/15/13 Levothyroxine [Synthroid] 200 mcg PO DAILY 05/15/13 Metoprolol Tartrate [Lopressor 100 mg PO BID 05/15/13 (beta adonis)] Atorvastatin Calcium [Lipitor] 80 mg PO QHS 01/12/16 Pantoprazole Sodium [Protonix] 20 mg PO DAILY 01/12/16 Aspirin [Aspirin, Baby] 81 mg PO DAILY@0800 02/25/16 Baclofen [Lioresal] 10 mg PO TID 02/25/16 Meclizine HCl [Antivert] 12.5 mg PO TID PRN PRN 07/12/16 Fluticasone 0.05% [Flonase Nasal 1 spray NASAL DAILY 01/11/17 [place]] Furosemide [Lasix] 80 mg PO BID 02/13/17 Insulin Detemir [Levemir FlexPen] 40 units SC BID 02/13/17 Linacolotide [Linzess] 145 mcg PO DAILY 07/24/17 Dapagliflozin Propanediol [Farxiga] 10 mg PO DAILY 07/27/17 Insulin Aspart [Novolog Flexpen] 26 units SC TIDAC 07/27/17 Iron Polysaccharide Complex 150 mg PO DAILYCM 07/27/17 [Ferrex 150] Linagliptin [Tradjenta] 5 mg PO DAILY 07/27/17 Plecanatide [Trulance] 3 mg PO DAILY 07/27/17 Polyethylene Glycol 3350 1 pkt PO DAILY PRN 07/27/17 Lisinopril [Zestril] 2.5 tab PO DAILY 07/30/17 Ceftriaxone 2 gm IV Q24 08/03/17 Hydrocodone Bitart/Apap 5-325 1 - 2 tab PO Q6H PRN PRN #10 tab 08/03/17 [[place] 5/325] Metronidazole [Flagyl] 500 mg PO TID 08/03/17 Montelukast [Singulair] 10 mg PO DAILY 30 Days #0 08/03/17 Current Medications Generic Name Dose Route Start Last Admin Trade Name Freq PRN Reason Stop Dose Admin Hydrocodone Bitart/Acetaminophen 1 - 2 tablet 08/03/17 15:15 08/05/17 20:54 [place] 5mg-325mg PO 1 tablet Q6H PRN PRN Administration Moderate-severe pain Aspirin 81 mg 08/04/17 08:00 08/08/17 09:07 Aspirin, Baby PO 81 mg DAILY@0800 [facility] Administration Atorvastatin Calcium 80 mg 08/03/17 22:00 08/07/17 21:54 Lipitor PO 80 mg QHS [facility] Administration Bisacodyl 10 mg 08/03/17 15:23 Dulcolax PO DAILY PRN PRN Constipation Clopidogrel Bisulfate 75 mg 08/04/17 06:00 08/08/17 05:54 Plavix PO 75 mg DAILY [facility] Administration Dextrose 0 gm 08/03/17 21:19 D50w Syringe IV X1 PRN Hypoglycemia Protocol Enoxaparin Sodium 40 mg 08/04/17 06:00 08/08/17 05:55 Lovenox SC 40 mg DAILY@0600 [facility] Administration Furosemide 80 mg 08/07/17 06:00 08/08/17 13:33 Lasix IV 80 mg BID@0600,1400 [facility] Administration Glucagon 1 mg 08/03/17 21:19 IM .X1 PRN Hypoglycemia Heparin Sodium (Beef Lung) 500 unit 08/03/17 16:17 Heparin 500 Unit/5 Ml (100/Ml) IV UD PRN HEPARIN FLUSH Ceftriaxone Sodium 2 gm/ 50 mls @ 100 mls/hr 08/04/17 10:00 08/08/17 08:59 Sodium Chloride IV 09/11/17 11:00 100 mls/hr Q24 [facility] Administration Sodium Chloride 250 mls @ 15 mls/hr 08/03/17 16:31 08/08/17 06:06 IV 15 mls/hr .[id number] PRN Administration SALINE FLUSH Vancomycin HCl 1,750 mg/ 535 mls @ 260 mls/hr 08/09/17 08:00 Sodium Chloride IV Q24H [facility] Insulin Aspart 23 units 08/07/17 18:59 08/08/17 16:46 Novolog Flexpen ([facility]) SC 23 units TIDAC [facility] Administration Insulin Detemir 35 units 08/07/17 18:59 08/08/17 09:06 Levemir ([facility]) SC 35 u 1000,2200 [facility] Administration Levothyroxine Sodium 200 mcg 08/04/17 06:00 08/08/17 05:54 Synthroid PO 200 mcg DAILY [facility] Administration Linagliptin 5 mg 08/04/17 06:00 08/08/17 05:55 Tradjenta PO 5 mg DAILY [facility] Administration Lisinopril 2.5 mg 08/04/17 06:00 08/08/17 05:54 Zestril PO 2.5 mg DAILY [facility] Administration Metoprolol Tartrate 100 mg 08/03/17 18:00 08/08/17 16:46 Lopressor (Beta Adonis) PO 100 mg BID [facility] Administration Metronidazole 500 mg 08/03/17 22:00 08/08/17 13:23 Flagyl PO 500 mg TID [facility] Administration Nutritional Formula (Lactose Free) 120 ml 08/03/17 17:45 08/08/17 16:45 Glucerna Shake PO 120 ml TIDCM [facility] Administration Pantoprazole Sodium 20 mg 08/04/17 06:00 08/08/17 05:54 Protonix PO 20 mg DAILY [facility] Administration Polyethylene Glycol 17 gm 08/04/17 06:00 08/08/17 05:59 Miralax PO Not Given DAILY [facility] Polysaccharide Iron Complex 150 mg 08/04/17 08:00 08/08/17 09:07 Ferrex 150 PO 150 mg DAILYCM [facility] Administration Senna/Docusate Sodium 2 tablet 08/03/17 18:00 08/08/17 16:45 Senokot-S, Maggy-Colace PO Not Given BID [facility] Sodium Chloride 5 - 30 ml 08/03/17 16:17 08/08/17 09:03 IV 20 ml UD PRN Administration SALINE FLUSH Sodium Chloride 10 - 20 ml 08/03/17 16:17 08/08/17 13:35 IV 20 ml UD PRN Administration PICC FLUSH Tuberculin PPD 5 tu 08/11/17 10:00 Tubersol, Aplisol, Ppd ID 08/11/17 10:01 X1 ONE Problem List Sepsis (Acute) Osteomyelitis of foot (Acute) Diabetes mellitus (Chronic) Vital Signs Temp Pulse Resp BP Pulse Ox 97.7 F L 69 17 118/50 L 96 08/08/17 16:00 08/08/17 16:46 08/08/17 16:00 08/08/17 16:00 08/08/17 16:00 Oxygen Delivery Method Room Air Weight: 112.5 kg Body Mass Index (BMI) 34.6 Finger Stick Blood Glucose 164 Sodium 137 mmol/L (136-145) 08/08/17 05:05 Potassium 4.5 mmol/L (3.5-5.1) 08/08/17 05:05 Chloride 100 mmol/L (98-107) 08/08/17 05:05 Carbon Dioxide 30.0 mmol/L (21.0-32.0) 08/08/17 05:05 Anion Gap 7 (5-15) 08/08/17 05:05 BUN 42 mg/dL (7-18) H 08/08/17 05:05 Creatinine 1.27 mg/dL (0.70-1.30) 08/08/17 05:05 Est GFR (MDRD) Af Amer 73 mL/min (>60) 08/08/17 05:05 Est GFR (MDRD) Non-Af 60 mL/min (>60) 08/08/17 05:05 BUN/Creatinine Ratio 33.1 RATIO (10-20) H 08/08/17 05:05 Glucose 226 mg/dL (74-106) H 08/08/17 05:05 Vancomycin Trough 26.6 ug/mL (5.0-15.0) H 08/08/17 05:05 Assessment/Plan: Psychotropic Medications: Unnecessary Medications: Bowel Regimen: - Provider Comments Provider responsibility: Provider responsible to enter orders to implement recommendations Provider Comments to Recommendations by Pharmacy: Agree
--- NOTE | 2017-08-08 12:50 | PHA.CONS_ITS ---
<JessieNathaniel carrizales - Last Filed: 08/08/17 12:33> Progress Note - Pharmacy Subjective: TCU Admission Objective: Allergies adhesive Allergy (Verified 02/13/17 14:38) SKIN GETS PULLED OFF SKIN GETS PULLED OFF latex Allergy (Verified 02/13/17 14:38) Hives Home Medications Medication Instructions Recorded Clopidogrel Bisulfate [Plavix] 75 mg PO DAILY 05/15/13 Levothyroxine [Synthroid] 200 mcg PO DAILY 05/15/13 Metoprolol Tartrate [Lopressor 100 mg PO BID 05/15/13 (beta adonis)] Atorvastatin Calcium [Lipitor] 80 mg PO QHS 01/12/16 Pantoprazole Sodium [Protonix] 20 mg PO DAILY 01/12/16 Aspirin [Aspirin, Baby] 81 mg PO DAILY@0800 02/25/16 Baclofen [Lioresal] 10 mg PO TID 02/25/16 Meclizine HCl [Antivert] 12.5 mg PO TID PRN PRN 07/12/16 Fluticasone 0.05% [Flonase Nasal 1 spray NASAL DAILY 01/11/17 [place]] Furosemide [Lasix] 80 mg PO BID 02/13/17 Insulin Detemir [Levemir FlexPen] 40 units SC BID 02/13/17 Linacolotide [Linzess] 145 mcg PO DAILY 07/24/17 Dapagliflozin Propanediol [Farxiga] 10 mg PO DAILY 07/27/17 Insulin Aspart [Novolog Flexpen] 26 units SC TIDAC 07/27/17 Iron Polysaccharide Complex 150 mg PO DAILYCM 07/27/17 [Ferrex 150] Linagliptin [Tradjenta] 5 mg PO DAILY 07/27/17 Plecanatide [Trulance] 3 mg PO DAILY 07/27/17 Polyethylene Glycol 3350 1 pkt PO DAILY PRN 07/27/17 Lisinopril [Zestril] 2.5 tab PO DAILY 07/30/17 Ceftriaxone 2 gm IV Q24 08/03/17 Hydrocodone Bitart/Apap 5-325 1 - 2 tab PO Q6H PRN PRN #10 tab 08/03/17 [[place] 5/325] Metronidazole [Flagyl] 500 mg PO TID 08/03/17 Montelukast [Singulair] 10 mg PO DAILY 30 Days #0 08/03/17 Current Medications Generic Name Dose Route Start Last Admin Trade Name Freq PRN Reason Stop Dose Admin Hydrocodone Bitart/Acetaminophen 1 - 2 tablet 08/03/17 15:15 08/05/17 20:54 [place] 5mg-325mg PO 1 tablet Q6H PRN PRN Administration Moderate-severe pain Aspirin 81 mg 08/04/17 08:00 08/08/17 09:07 Aspirin, Baby PO 81 mg DAILY@0800 IGNACIO Administration Atorvastatin Calcium 80 mg 08/03/17 22:00 08/07/17 21:54 Lipitor PO 80 mg QHS IGNACIO Administration Bisacodyl 10 mg 08/03/17 15:23 Dulcolax PO DAILY PRN PRN Constipation Clopidogrel Bisulfate 75 mg 08/04/17 06:00 08/08/17 05:54 Plavix PO 75 mg DAILY IGNACIO Administration Dextrose 0 gm 08/03/17 21:19 D50w Syringe IV X1 PRN Hypoglycemia Protocol Enoxaparin Sodium 40 mg 08/04/17 06:00 08/08/17 05:55 Lovenox SC 40 mg DAILY@0600 [facility] Administration Furosemide 80 mg 08/07/17 06:00 08/08/17 05:56 Lasix IV 80 mg BID@0600,1400 [facility] Administration Glucagon 1 mg 08/03/17 21:19 IM .X1 PRN Hypoglycemia Heparin Sodium (Beef Lung) 500 unit 08/03/17 16:17 Heparin 500 Unit/5 Ml (100/Ml) IV UD PRN HEPARIN FLUSH Ceftriaxone Sodium 2 gm/ 50 mls @ 100 mls/hr 08/04/17 10:00 08/08/17 08:59 Sodium Chloride IV 09/11/17 11:00 100 mls/hr Q24 IGNACIO Administration Sodium Chloride 250 mls @ 15 mls/hr 08/03/17 16:31 08/08/17 06:06 IV 15 mls/hr .[id number] PRN Administration SALINE FLUSH Vancomycin HCl 1,750 mg/ 535 mls @ 260 mls/hr 08/09/17 08:00 Sodium Chloride IV Q24H [facility] Insulin Aspart 23 units 08/07/17 18:59 08/08/17 11:26 Novolog Flexpen ([facility]) SC 23 units TIDAC IGNACIO Administration Insulin Detemir 35 units 08/07/17 18:59 08/08/17 09:06 Levemir ([facility]) SC 35 u 1000,2200 IGNACIO Administration Levothyroxine Sodium 200 mcg 08/04/17 06:00 08/08/17 05:54 Synthroid PO 200 mcg DAILY IGNA[facility]IO Administration Linagliptin 5 mg 08/04/17 06:00 08/08/17 05:55 Tradjenta PO 5 mg DAILY IGNA[facility]IO Administration Lisinopril 2.5 mg 08/04/17 06:00 08/08/17 05:54 Zestril PO 2.5 mg DAILY IGNACIO Administration Metoprolol Tartrate 100 mg 08/03/17 18:00 08/08/17 05:54 Lopressor (Beta Adonis) PO 100 mg BID IGNACIO Administration Metronidazole 500 mg 08/03/17 22:00 08/08/17 05:54 Flagyl PO 500 mg TID IGNACIO Administration Nutritional Formula (Lactose Free) 120 ml 08/03/17 17:45 08/08/17 11:27 Glucerna Shake PO 120 ml TIDCM IGNACIO Administration Pantoprazole Sodium 20 mg 08/04/17 06:00 08/08/17 05:54 Protonix PO 20 mg DAILY IGNACIO Administration Polyethylene Glycol 17 gm 08/04/17 06:00 08/08/17 05:59 Miralax PO Not Given DAILY [facility] Polysaccharide Iron Complex 150 mg 08/04/17 08:00 08/08/17 09:07 Ferrex 150 PO 150 mg DAILYCM IGNACIO Administration Senna/Docusate Sodium 2 tablet 08/03/17 18:00 08/08/17 05:54 Senokot-S, Maggy-Colace PO 2 tablet BID IGNACIO Administration Sodium Chloride 5 - 30 ml 08/03/17 16:17 08/08/17 09:03 IV 20 ml UD PRN Administration SALINE FLUSH Sodium Chloride 10 - 20 ml 08/03/17 16:17 08/08/17 06:00 IV 20 ml UD PRN Administration PICC FLUSH Tuberculin PPD 5 tu 08/11/17 10:00 Tubersol, Aplisol, Ppd ID 08/11/17 10:01 X1 ONE Problem List Sepsis (Acute) Osteomyelitis of foot (Acute) Diabetes mellitus (Chronic) Vital Signs Temp Pulse Resp BP Pulse Ox 97.6 F L 75 20 H 133/60 H 95 08/07/17 22:00 08/08/17 05:54 08/08/17 06:00 08/08/17 05:54 08/08/17 06:00 Oxygen Delivery Method Room Air Weight: 112.5 kg Body Mass Index (BMI) 34.6 Finger Stick Blood Glucose 164 Sodium 137 mmol/L (136-145) 08/08/17 05:05 Potassium 4.5 mmol/L (3.5-5.1) 08/08/17 05:05 Chloride 100 mmol/L (98-107) 08/08/17 05:05 Carbon Dioxide 30.0 mmol/L (21.0-32.0) 08/08/17 05:05 Anion Gap 7 (5-15) 08/08/17 05:05 BUN 42 mg/dL (7-18) H 08/08/17 05:05 Creatinine 1.27 mg/dL (0.70-1.30) 08/08/17 05:05 Est GFR (MDRD) Af Amer 73 mL/min (>60) 08/08/17 05:05 Est GFR (MDRD) Non-Af 60 mL/min (>60) 08/08/17 05:05 BUN/Creatinine Ratio 33.1 RATIO (10-20) H 08/08/17 05:05 Glucose 226 mg/dL (74-106) H 08/08/17 05:05 Vancomycin Trough 26.6 ug/mL (5.0-15.0) H 08/08/17 05:05 Assessment/Plan: 1) Pain Hydrocodone/APAP prn. Continue to monitor prn medication use, daily pain scores. 2) HTN/CAD/CHF Lisinopril, metoprolol, atorvastatin, ASA, clopidogrel, furosemide IV twice daily. BP/HR within goal ranges, BUN/SCr at baseline, K wnl. Continue to monitor BP/HR, renal function, electrolytes, s/s chest pain. * 3) ID Vancomycin daily, metronidazole 3x daily, ceftriaxone until 09/11. ID following. Please clarify stop dates if possible. Continue to monitor s/s infection. 4) DM2 Linagliptin, insulin detemir twice daily, aspart with meals. Avg BGT trending up, last few checks in 200s-300s. Continue to monitor BGT, A1c, s/s hyper/hypoglycemia. 5) Nutrition Fe, Glucerna. Continue to monitor clinically. 6) Hypothyroidism Levothyroxine daily. Continue to monitor s/s hyper/hypothyroidism. 7) GI Pantoprazole daily. Continue to monitor s/s GI distress. 8) DVT PPx Enoxaparin daily. Continue to monitor s/s bleeding/clot. Psychotropic Medications: None Unnecessary Medications: None Bowel Regimen: 9) Senna/s, PEG< prn bisacodyl. Continue to monitor prn medication use, for constipation/diarrhea. Date of Note:: 08/08/17 - Provider Comments Provider responsibility: Provider responsible to enter orders to implement recommendations <Johnathan Batres Chi - Last Filed: 08/08/17 17:55> Progress Note - Pharmacy Subjective: [] Objective: Allergies adhesive Allergy (Verified 02/13/17 14:38) SKIN GETS PULLED OFF SKIN GETS PULLED OFF latex Allergy (Verified 02/13/17 14:38) Hives Home Medications Medication Instructions Recorded Clopidogrel Bisulfate [Plavix] 75 mg PO DAILY 05/15/13 Levothyroxine [Synthroid] 200 mcg PO DAILY 05/15/13 Metoprolol Tartrate [Lopressor 100 mg PO BID 05/15/13 (beta adonis)] Atorvastatin Calcium [Lipitor] 80 mg PO QHS 01/12/16 Pantoprazole Sodium [Protonix] 20 mg PO DAILY 01/12/16 Aspirin [Aspirin, Baby] 81 mg PO DAILY@0800 02/25/16 Baclofen [Lioresal] 10 mg PO TID 02/25/16 Meclizine HCl [Antivert] 12.5 mg PO TID PRN PRN 07/12/16 Fluticasone 0.05% [Flonase Nasal 1 spray NASAL DAILY 01/11/17 [place]] Furosemide [Lasix] 80 mg PO BID 02/13/17 Insulin Detemir [Levemir FlexPen] 40 units SC BID 02/13/17 Linacolotide [Linzess] 145 mcg PO DAILY 07/24/17 Dapagliflozin Propanediol [Farxiga] 10 mg PO DAILY 07/27/17 Insulin Aspart [Novolog Flexpen] 26 units SC TIDAC 07/27/17 Iron Polysaccharide Complex 150 mg PO DAILYCM 07/27/17 [Ferrex 150] Linagliptin [Tradjenta] 5 mg PO DAILY 07/27/17 Plecanatide [Trulance] 3 mg PO DAILY 07/27/17 Polyethylene Glycol 3350 1 pkt PO DAILY PRN 07/27/17 Lisinopril [Zestril] 2.5 tab PO DAILY 07/30/17 Ceftriaxone 2 gm IV Q24 08/03/17 Hydrocodone Bitart/Apap 5-325 1 - 2 tab PO Q6H PRN PRN #10 tab 08/03/17 [[place] 5/325] Metronidazole [Flagyl] 500 mg PO TID 08/03/17 Montelukast [Singulair] 10 mg PO DAILY 30 Days #0 08/03/17 Current Medications Generic Name Dose Route Start Last Admin Trade Name Freq PRN Reason Stop Dose Admin Hydrocodone Bitart/Acetaminophen 1 - 2 tablet 08/03/17 15:15 08/05/17 20:54 [place] 5mg-325mg PO 1 tablet Q6H PRN PRN Administration Moderate-severe pain Aspirin 81 mg 08/04/17 08:00 08/08/17 09:07 Aspirin, Baby PO 81 mg DAILY@0800 IGNACIO Administration Atorvastatin Calcium 80 mg 08/03/17 22:00 08/07/17 21:54 Lipitor PO 80 mg QHS IGNACIO Administration Bisacodyl 10 mg 08/03/17 15:23 Dulcolax PO DAILY PRN PRN Constipation Clopidogrel Bisulfate 75 mg 08/04/17 06:00 08/08/17 05:54 Plavix PO 75 mg DAILY IGNACIO Administration Dextrose 0 gm 08/03/17 21:19 D50w Syringe IV X1 PRN Hypoglycemia Protocol Enoxaparin Sodium 40 mg 08/04/17 06:00 08/08/17 05:55 Lovenox SC 40 mg DAILY@0600 IGNACIO Administration Furosemide 80 mg 08/07/17 06:00 08/08/17 13:33 Lasix IV 80 mg BID@0600,1400 IGNACIO Administration Glucagon 1 mg 08/03/17 21:19 IM .X1 PRN Hypoglycemia Heparin Sodium (Beef Lung) 500 unit 08/03/17 16:17 Heparin 500 Unit/5 Ml (100/Ml) IV UD PRN HEPARIN FLUSH Ceftriaxone Sodium 2 gm/ 50 mls @ 100 mls/hr 08/04/17 10:00 08/08/17 08:59 Sodium Chloride IV 09/11/17 11:00 100 mls/hr Q24 IGNACIO Administration Sodium Chloride 250 mls @ 15 mls/hr 08/03/17 16:31 08/08/17 06:06 IV 15 mls/hr .[id number] PRN Administration SALINE FLUSH Vancomycin HCl 1,750 mg/ 535 mls @ 260 mls/hr 08/09/17 08:00 Sodium Chloride IV Q24H IGNACIO Insulin Aspart 23 units 08/07/17 18:59 08/08/17 16:46 Novolog Flexpen ([facility]) SC 23 units TIDAC IGNACIO Administration Insulin Detemir 35 units 08/07/17 18:59 08/08/17 09:06 Levemir ([facility]) SC 35 u 1000,2200 IGNACIO Administration Levothyroxine Sodium 200 mcg 08/04/17 06:00 08/08/17 05:54 Synthroid PO 200 mcg DAILY IGNACIO Administration Linagliptin 5 mg 08/04/17 06:00 08/08/17 05:55 Tradjenta PO 5 mg DAILY IGNACIO Administration Lisinopril 2.5 mg 08/04/17 06:00 08/08/17 05:54 Zestril PO 2.5 mg DAILY IGNA[facility]IO Administration Metoprolol Tartrate 100 mg 08/03/17 18:00 08/08/17 16:46 Lopressor (Beta Adonis) PO 100 mg BID [facility] Administration Metronidazole 500 mg 08/03/17 22:00 08/08/17 13:23 Flagyl PO 500 mg TID IGNACIO Administration Nutritional Formula (Lactose Free) 120 ml 08/03/17 17:45 08/08/17 16:45 Glucerna Shake PO 120 ml TIDCM IGNACIO Administration Pantoprazole Sodium 20 mg 08/04/17 06:00 08/08/17 05:54 Protonix PO 20 mg DAILY IGNACIO Administration Polyethylene Glycol 17 gm 08/04/17 06:00 08/08/17 05:59 Miralax PO Not Given DAILY IGNACIO Polysaccharide Iron Complex 150 mg 08/04/17 08:00 08/08/17 09:07 Ferrex 150 PO 150 mg DAILYCM IGNACIO Administration Senna/Docusate Sodium 2 tablet 08/03/17 18:00 08/08/17 16:45 Senokot-S, Maggy-Colace PO Not Given BID [facility] Sodium Chloride 5 - 30 ml 08/03/17 16:17 08/08/17 09:03 IV 20 ml UD PRN Administration SALINE FLUSH Sodium Chloride 10 - 20 ml 08/03/17 16:17 08/08/17 13:35 IV 20 ml UD PRN Administration PICC FLUSH Tuberculin PPD 5 tu 08/11/17 10:00 Tubersol, Aplisol, Ppd ID 08/11/17 10:01 X1 ONE Problem List Sepsis (Acute) Osteomyelitis of foot (Acute) Diabetes mellitus (Chronic) Vital Signs Temp Pulse Resp BP Pulse Ox 97.7 F L 69 17 118/50 L 96 08/08/17 16:00 08/08/17 16:46 08/08/17 16:00 08/08/17 16:00 08/08/17 16:00 Oxygen Delivery Method Room Air Weight: 112.5 kg Body Mass Index (BMI) 34.6 Finger Stick Blood Glucose 164 Sodium 137 mmol/L (136-145) 08/08/17 05:05 Potassium 4.5 mmol/L (3.5-5.1) 08/08/17 05:05 Chloride 100 mmol/L (98-107) 08/08/17 05:05 Carbon Dioxide 30.0 mmol/L (21.0-32.0) 08/08/17 05:05 Anion Gap 7 (5-15) 08/08/17 05:05 BUN 42 mg/dL (7-18) H 08/08/17 05:05 Creatinine 1.27 mg/dL (0.70-1.30) 08/08/17 05:05 Est GFR (MDRD) Af Amer 73 mL/min (>60) 08/08/17 05:05 Est GFR (MDRD) Non-Af 60 mL/min (>60) 08/08/17 05:05 BUN/Creatinine Ratio 33.1 RATIO (10-20) H 08/08/17 05:05 Glucose 226 mg/dL (74-106) H 08/08/17 05:05 Vancomycin Trough 26.6 ug/mL (5.0-15.0) H 08/08/17 05:05 Assessment/Plan: Psychotropic Medications: Unnecessary Medications: Bowel Regimen: - Provider Comments Provider responsibility: Provider responsible to enter orders to implement recommendations Provider Comments to Recommendations by Pharmacy: Agree
[2017-08-08 16:00] VITALS: BP 118/50; PULSE 69; RESP 17; TEMP 36.5; O2SAT 96
[2017-08-08 16:41] LABS: Bedside Glucose 308 mg/dL (70-110)
[2017-08-08 16:46] VITALS: PULSE 69
[2017-08-08] MEDS: HYDROcodone Bitartrate/Apap 5/325 Tablet PO (20:01)
[2017-08-08] MEDS: Atorvastatin Calcium 80 MG Tablet PO (21:46)
[2017-08-08 22:01] LABS: Bedside Glucose 294 mg/dL (70-110)
[2017-08-09] MEDS: Lisinopril 2.5 MG Tablet PO (05:09)
[2017-08-09] MEDS: HYDROcodone Bitartrate/Apap 5/325 Tablet PO (05:09)
[2017-08-09] MEDS: metroNIDAZOLE 500 MG Tablet PO ×3 (05:09→22:20)
[2017-08-09] MEDS: Levothyroxine 100 MCG Tablet 200 MCG PO (05:10)
[2017-08-09] MEDS: LINAGLIPTIN 5 MG TABLET PO (05:10)
[2017-08-09] MEDS: Pantoprazole Sodium 20 MG Tablet PO (05:11)
[2017-08-09] MEDS: Enoxaparin 40 MG/0.4 ML Syringe SC (05:11)
[2017-08-09] MEDS: Clopidogrel Bisulfate 75 MG Tablet PO (05:11)
[2017-08-09 05:12] VITALS: PULSE 78
[2017-08-09] MEDS: Metoprolol Tartrate 100 MG Tablet PO ×2 (05:12→17:37)
[2017-08-09] MEDS: Furosemide 100 MG/10 ML Vial 80 MG IV ×2 (05:40→13:21)
[2017-08-09 06:51] LABS: Bedside Glucose 291 mg/dL (70-110)
[2017-08-09] MEDS: Aspirin 81 MG TAB.CHEW PO (08:10)
[2017-08-09] MEDS: Iron Polysaccharide Complex 150 MG CAPSULE PO (08:10)
[2017-08-09] MEDS: Glucerna Shake 120 ML LIQUID PO ×3 (08:10→17:36)
[2017-08-09] MEDS: 0.9% NaCl Peripheral Flush Adult/Peds IV ×2 (09:42→13:23)
[2017-08-09 10:00] VITALS: PULSE 69; RESP 18; O2SAT 95
[2017-08-09 11:35] LABS: Bedside Glucose 160 mg/dL (70-110)
[2017-08-09 13:19] VITALS: BP 133/62; PULSE 68; RESP 18; TEMP 37.1; O2SAT 96
[2017-08-09 15:08] VITALS: BP 129/56; PULSE 70; RESP 22; TEMP 37.1; O2SAT 94
[2017-08-09 16:56] LABS: Bedside Glucose 82 mg/dL (70-110)
[2017-08-09 17:37] VITALS: BP 129/56; PULSE 70
[2017-08-09] MEDS: Senna/Docusate Sodium 1 Tablet 2 TABLET PO (17:37)
[2017-08-09 21:31] LABS: Bedside Glucose 156 mg/dL (70-110)
[2017-08-09] MEDS: Fluticasone 0.05% 1 SPRAY NASAL.SRY 2 SPRAY NASAL (22:19)
[2017-08-09] MEDS: Atorvastatin Calcium 80 MG Tablet PO (22:22)
[2017-08-10 04:52] VITALS: BP 144/66; PULSE 70; RESP 18; TEMP 37; O2SAT 93
[2017-08-10] MEDS: Furosemide 100 MG/10 ML Vial 80 MG IV ×2 (04:55→14:13)
[2017-08-10] MEDS: 0.9% NaCl Peripheral Flush Adult/Peds IV ×4 (04:55→15:55)
[2017-08-10] MEDS: metroNIDAZOLE 500 MG Tablet PO ×3 (05:01→21:59)
[2017-08-10] MEDS: Fluticasone 0.05% 1 SPRAY NASAL.SRY 2 SPRAY NASAL (05:02)
[2017-08-10 05:03] VITALS: PULSE 70
[2017-08-10] MEDS: Enoxaparin 40 MG/0.4 ML Syringe SC (05:03)
[2017-08-10] MEDS: Metoprolol Tartrate 100 MG Tablet PO ×2 (05:03→17:46)
[2017-08-10] MEDS: Polyethylene Glycol 3350 17 GM PACKET PO (05:04)
[2017-08-10] MEDS: Pantoprazole Sodium 20 MG Tablet PO (05:05)
[2017-08-10] MEDS: Senna/Docusate Sodium 1 Tablet 2 TABLET PO ×2 (05:05→17:46)
[2017-08-10] MEDS: Clopidogrel Bisulfate 75 MG Tablet PO (05:05)
[2017-08-10] MEDS: Levothyroxine 100 MCG Tablet 200 MCG PO (05:09)
[2017-08-10] MEDS: LINAGLIPTIN 5 MG TABLET PO (05:09)
[2017-08-10] MEDS: Lisinopril 2.5 MG Tablet PO (05:09)
[2017-08-10 06:21] LABS: Bedside Glucose 111 mg/dL (70-110)
[2017-08-10] MEDS: 0.9% NaCl IVPB Med Flush (250 mL) 15 ML IV (07:54)
[2017-08-10] MEDS: 0.9% NaCl PICC Flush IV (07:59)
[2017-08-10] MEDS: Iron Polysaccharide Complex 150 MG CAPSULE PO (08:48)
[2017-08-10] MEDS: Aspirin 81 MG TAB.CHEW PO (08:48)
[2017-08-10] MEDS: Glucerna Shake 120 ML LIQUID PO ×3 (08:51→17:47)
--- NOTE | 2017-08-10 09:43 | NURSING ---
pt noted to have irritated red, flakey skin around picc line site, IVT notified, will be up to assess. opsite still intact to site, statlock loosened will, secure with tape until Ronald, IVT able to assess site.
[2017-08-10 10:00] VITALS: PULSE 65; RESP 18; O2SAT 94
[2017-08-10 11:31] LABS: Bedside Glucose 46 mg/dL (70-110)
--- NOTE | 2017-08-10 12:55 | PN_ITS ---
Patient Problems: Active and Suspected Problems Sepsis (Acute) Osteomyelitis of foot (Acute) Subjective: This 67-year-old diabetic male was seen bedside this afternoon resting comfortably following his surgical procedure of bilateral feet by Dr. Thomas last week. Patient has been receiving daily dressing changes by the wound nurse. Patient feels he is slowly getting better and has noticed no complications with his feet since the procedure. At this time, patient denies any feelings of nausea, vomiting, fever, chills. This patient has no other complaints at this time. - Physical Exam General: Alert, Oriented x3, Cooperative Extremities: Capillary Refill Less than 3 Seconds, No Calf Tenderness - Negative Rashad and Tenorio sign bilateral, Diminished Peripheral Pulses - Diminished DP and PT pulses bilateral, Edema Skin: - - Right surgical site to lateral aspect of the foot is healing. Sutres are intact and incision edges are well coapted. No signs of necrosis. There is no extending cellulitis, no drainage, and no malodor appreciated. Left surgical site to the medial aspect of the previous TMA is healing nicely. The sutues are intact and the incision edges are well coapted. There is no extending cellulitis , increased warmth, drainage, or malodor noted. Patient had slight cut to dorsal second toe. No signs of infection appreciated. Said this happened when he was being wheeled in his wheel chair. Musculoskeletal: - - left TMA Neurological: - - epiricitic sensation grossly absent bilateral feet Psych/Mental Status: Normal Affect, Appropriate Vital Signs Temp Pulse Resp BP Pulse Ox 98.6 F 70 18 144/66 H 93 08/10/17 04:52 08/10/17 05:03 08/10/17 04:52 08/10/17 04:52 08/10/17 04:52 Oxygen Delivery Method Room Air Weight: 112.5 kg Body Mass Index (BMI) 34.6 Finger Stick Blood Glucose 164 Intake and Output for Last 24 Hours 08/08/17 08/09/17 08/10/17 23:59 23:59 23:59 Intake Total 1140 / 1140 2041 / 2041 240 / 240 Output Total 650 / 650 650 / 650 Balance 490 / 490 1391 / 1391 240 / 240 POC Glucose 08/10/17 08/10/17 08/09/17 11:22 05:58 21:27 POC Glucose 46 L 111 H 156 H 08/09/17 16:47 POC Glucose 82 Assessment/Plan Active and Suspected Problems Sepsis (Acute) Osteomyelitis of foot (Acute) This patient was carefully examined and evaluated bedside status post surgical procedure to bilateral feet performed by Dr. Thomas last week. Patient is continuing to heal nicely. His dressing was taken down and his surgical sites were closely examined. Betadine was applied to the incisions, and the sites were then dressed with adaptic, 4x4s, abd, kerlix, and CIERA bandage. The dressing is to continue being changed by nursing daily, and is much appreciated. Podiatry will continue to follow this patient while in house. Please contact with any questions or concerns.
--- NOTE | 2017-08-10 14:43 | NURSING ---
PT NOTED TO HAVE A RASH ALL OVER NOW, DR HAIDER NOTIFIED, NEW ORDERS ENTERED FOR SOLUMEDROL AND VISTARIL
--- NOTE | 2017-08-10 15:46 | RAD_ITS ---
STUDY: X-RAY CHEST REASON FOR EXAM: Male, 67 years old. Fever TECHNIQUE: Frontal and lateral views of the chest. COMPARISON: 07-31 FINDINGS: Chronic appearing increased interstitial lung markings. Multiple median sternotomy wires are noted consistent for cardiac surgery. There is a right PICC line in place. The tip is in the superior vena caval - atrial junction. Left lower lobe atelectasis. Small left pleural effusion. There is borderline cardiomegaly. Normal mediastinum and catrina. Normal visualized pulmonary arteries. There is atherosclerotic tortuosity of the aortic arch and descending thoracic aorta. There are diffuse degenerative changes of the visualized thoracic spine. There is degenerative osteoarthritis of the bilateral shoulders. There is no demonstrated abnormality of the visualized soft tissue structures of the upper abdomen. RAD/Chest PA and Lateral IMPRESSION: Left lower lobe atelectasis. Small left pleural effusion. Electronically Signed: Raj Foss MD at 16:21 EST , Service support ,
[2017-08-10] MEDS: MethylPREDNISolone 125 MG/2 ML Vial IV (15:53)
[2017-08-10 16:00] VITALS: BP 110/71; PULSE 71; RESP 16; TEMP 37.2; O2SAT 96
--- NOTE | 2017-08-10 16:00 | RAD_ITS ---
STUDY: X-RAY - ABDOMEN/PELVIS REASON FOR EXAM: Male, 67 years old. Abdominal distention TECHNIQUE: Single AP view of the abdomen / pelvis. COMPARISON: None. FINDINGS: There are multiple metallic clips in the right upper quadrant. This is consistent for a cholecystectomy. There is a moderate amount of colonic fecal material. There is no demonstrated free abdominal air. The visualized liver, spleen and kidneys are grossly normal in size and morphology. Normal soft tissue structures. Normal visualized osseous structures. RAD/Abdomen Single View IMPRESSION: Constipation. Electronically Signed: Raj Foss MD at 16:19 EST , Service support ,
--- NOTE | 2017-08-10 16:15 | NURSING ---
Pt. off the floor to radiology.
[2017-08-10 17:10] LABS: Bedside Glucose 104 mg/dL (70-110)
[2017-08-10 17:14] LABS: Absolute Lymphocyte Count 1.42 X10^3/ul (0.83-4.51); Absolute Neutrophil Count 7.6 X10^3/uL (2.0-7.7); Basophil# 0.04 X10^3/uL; Basophil% 0.4 % (0-1); Eosinophil# 0.48 X10^3/uL; Eosinophils% 4.7 % (0-5); Hematocrit 35.7 % (40-54); Hemoglobin 11.7 g/dl (13.0-16.5); Lymphocyte # 1.42 X10^3/ul (4.0); Lymphocyte % 13.8 % (19-41); Mean Corp Hgb Conc 32.8 g/gl (32-36); Mean Corpuscular Hgb 29.7 pg (27.0-32.0); Mean Corpuscular Volume 90.6 fL (80-94); Monocyte# 0.73 X10^3/uL; Monocyte% 7.1 % (0-10); Neutrophil # 7.61 X10^3/uL (2.7-7.7); Neutrophil % 73.7 % (47-70); Platelet Count 374 K/mm3 (150-450); RBC Distribution Width CV 15.2 % (11.6-14.6); RBC Distribution Width SD 49.6 fl (35.1-43.9); Red Blood Count 3.94 M/mm3 (4.6-6.2); White Blood Count 10.3 K/mm3 (4.4-11.0)
[2017-08-10 17:17] LABS: POSITIVE COUNT NO; POSITIVE DIFFERENTIAL NO; POSITIVE MORPHOLOGY NO
[2017-08-10 17:46] VITALS: BP 110/71; PULSE 71
[2017-08-10 18:12] LABS: Anion Gap 7 (5-15); BUN 28 mg/dL (7-18); BUN/Creat Ratio 28.7 RATIO (10-20); Calcium,Total 7.4 mg/dL (8.5-10.1); Chloride 104 mmol/L (98-107); Creatinine, Serum 0.98 mg/dL (0.70-1.30); EST Glomerular Filtration Rate 82 mL/min (>60); Est Glom Filt Rate - Afr Amer 99 mL/min (>60); Estimated Creatinine Clearance 80.04 ml/min; Glucose 95 mg/dL (74-106); Potassium 3.2 mmol/L (3.5-5.1); Sodium Level 140 mmol/L (136-145)
[2017-08-10 18:14] LABS: Bacteria 0 SEEN /hpf (None Seen); Mucous, Urine 0 SEEN /hpf (<or=2+); Red Blood Cells-Urine 0 SEEN /hpf (0-5); Squamous Epithelial Cells - UA 0 SEEN /hpf (0-5); White Blood Cells 0 SEEN /hpf (0-5)
[2017-08-10 18:18] LABS: Color, Urine Yellow (Yellow); Glucose, Dipstick Normal (Normal); Ketone-Dipstick Negative (Negative); Leukocyte Esterase-Dipstick 25 /ul (Negative); Nitrite-Dipstick Negative (Negative); Occult Blood-Urine 10 /ul (Negative); Protein-Dipstick Negative (Negative); Urine Bilirubin Dipstick Negative (Negative); Urine Clarity Clear (Clear); Urine Urobilinogen Normal (Normal); Urine pH 6.5 (5.0 - 8.0)
--- NOTE | 2017-08-10 21:04 | NURSING ---
Dr. Batres notified of labs, KUB, and chest xray. New orders given.
[2017-08-10 21:06] LABS: Bedside Glucose 176 mg/dL (70-110)
[2017-08-10] MEDS: Magnesium Citrate 300 ML PO (21:58)
[2017-08-10] MEDS: Atorvastatin Calcium 80 MG Tablet PO (21:59)
[2017-08-10] MEDS: HYDROcodone Bitartrate/Apap 5/325 Tablet PO (22:11)
[2017-08-11] MEDS: Fluticasone 0.05% 1 SPRAY NASAL.SRY 2 SPRAY NASAL (04:38)
[2017-08-11] MEDS: Senna/Docusate Sodium 1 Tablet 2 TABLET PO ×2 (04:40→18:25)
[2017-08-11] MEDS: Polyethylene Glycol 3350 17 GM PACKET PO (04:40)
[2017-08-11] MEDS: Levothyroxine 100 MCG Tablet 200 MCG PO (04:40)
[2017-08-11 04:41] VITALS: BP 125/72; PULSE 76
[2017-08-11] MEDS: Lisinopril 2.5 MG Tablet PO (04:41)
[2017-08-11] MEDS: Metoprolol Tartrate 100 MG Tablet PO ×2 (04:41→18:25)
[2017-08-11] MEDS: metroNIDAZOLE 500 MG Tablet PO ×3 (04:41→22:04)
[2017-08-11] MEDS: LINAGLIPTIN 5 MG TABLET PO (04:41)
[2017-08-11] MEDS: Clopidogrel Bisulfate 75 MG Tablet PO (04:41)
[2017-08-11] MEDS: Pantoprazole Sodium 20 MG Tablet PO (04:42)
[2017-08-11] MEDS: Enoxaparin 40 MG/0.4 ML Syringe SC (05:07)
[2017-08-11] MEDS: Furosemide 100 MG/10 ML Vial 80 MG IV ×2 (06:10→14:09)
[2017-08-11] MEDS: 0.9% NaCl Peripheral Flush Adult/Peds IV ×4 (06:10→14:08)
[2017-08-11 06:56] LABS: Bedside Glucose 430 mg/dL (70-110)
--- NOTE | 2017-08-11 07:57 | NURSING ---
Dr. Batres notified of patient's blood sugar of 430. Orders given to give current units and continue to monitor. Dr. Batres notified of patient's rash. Orders given to continue to monitor.
[2017-08-11 08:00] LABS: Absolute Lymphocyte Count 0.64 X10^3/ul (0.83-4.51); Absolute Neutrophil Count 11.3 X10^3/uL (2.0-7.7); Hematocrit 37.7 % (40-54); Hemoglobin 12.1 g/dl (13.0-16.5); Lymphocyte # 0.64 X10^3/ul (4.0); Lymphocyte % 5.2 % (19-41); Mean Corp Hgb Conc 32.1 g/gl (32-36); Mean Corpuscular Hgb 28.9 pg (27.0-32.0); Mean Platelet Vol. 10.3 fl (6.2-12.0); Monocyte# 0.33 X10^3/uL; Monocyte% 2.7 % (0-10); Neutrophil # 11.27 X10^3/uL (2.7-7.7); Neutrophil % 91.9 % (47-70); Platelet Count 350 K/mm3 (150-450); RBC Distribution Width CV 15.1 % (11.6-14.6); RBC Distribution Width SD 49.3 fl (35.1-43.9); Red Blood Count 4.19 M/mm3 (4.6-6.2); White Blood Count 12.3 K/mm3 (4.4-11.0)
[2017-08-11 08:01] LABS: POSITIVE COUNT NO; POSITIVE DIFFERENTIAL NO; POSITIVE MORPHOLOGY NO
[2017-08-11] MEDS: Glucerna Shake 120 ML LIQUID PO ×3 (08:07→18:24)
[2017-08-11] MEDS: Iron Polysaccharide Complex 150 MG CAPSULE PO (08:07)
[2017-08-11] MEDS: Aspirin 81 MG TAB.CHEW PO (08:07)
[2017-08-11 08:20] LABS: Vancomycin, Trough Level 16.9 ug/mL (5.0-15.0)
[2017-08-11 08:29] LABS: Anion Gap 9 (5-15); BUN 32 mg/dL (7-18); Calcium,Total 8.5 mg/dL (8.5-10.1); Chloride 96 mmol/L (98-107); Creatinine, Serum 1.39 mg/dL (0.70-1.30); EST Glomerular Filtration Rate 54 mL/min (>60); Est Glom Filt Rate - Afr Amer 66 mL/min (>60); Estimated Creatinine Clearance 56.43 ml/min; Glucose 454 mg/dL (74-106); Potassium 5.6 mmol/L (3.5-5.1); Sodium Level 132 mmol/L (136-145)
[2017-08-11] MEDS: 0.9% NaCl IVPB Med Flush (250 mL) 15 ML IV ×2 (09:19→11:57)
--- NOTE | 2017-08-11 10:31 | NURSING ---
Dr. Batres reviewed labs, N.O. to d/c K-dur, x1 dose of Kayexalate and recheck BMP tomorrow. Pt updated.
[2017-08-11] MEDS: Sodium Polystyrene Sulfonate 15 GM/60 ML UDC PO (11:07)
[2017-08-11] MEDS: Tuberculin,Purif.prot.deriv. 50 TU/ML Vial 5 ML ID (11:18)
[2017-08-11 12:01] LABS: Glucose 614 mg/dL (74-106)
--- NOTE | 2017-08-11 12:27 | NURSING ---
Dr. Batres updated of pt's blood sugar. N.O. for x1 dose of 30 units of Novolog, recheck blood sugar in 1 hour, pt updated.
[2017-08-11 13:41] LABS: Bedside Glucose > 500 mg/dL (70-110)
[2017-08-11 14:06] LABS: Bedside Glucose > 500 mg/dL (70-110)
[2017-08-11 14:06] LABS: Bedside Glucose > 500 mg/dL (70-110)
[2017-08-11 14:31] LABS: Bedside Glucose > 500 mg/dL (70-110)
[2017-08-11 15:34] VITALS: BP 93/72; PULSE 84; RESP 16; TEMP 36.7; O2SAT 92
[2017-08-11 16:01] LABS: Bedside Glucose 450 mg/dL (70-110)
--- NOTE | 2017-08-11 16:01 | NURSING ---
Dr. Batres updated on pt's blood sugar recheck, N.O. received, pt updated, continuing to monitor blood sugars.
[2017-08-11 16:34] VITALS: BP 132/65; PULSE 81
[2017-08-11 17:05] LABS: Bedside Glucose 207 mg/dL (70-110)
[2017-08-11 18:25] VITALS: BP 132/65; PULSE 81
[2017-08-11 18:46] LABS: Bedside Glucose 284 mg/dL (70-110)
[2017-08-11] MEDS: Atorvastatin Calcium 80 MG Tablet PO (20:05)
[2017-08-11] MEDS: HYDROcodone Bitartrate/Apap 5/325 Tablet PO (20:05)
[2017-08-11 20:51] LABS: Bedside Glucose 320 mg/dL (70-110)
[2017-08-12 00:16] LABS: Bedside Glucose 232 mg/dL (70-110)
[2017-08-12] MEDS: HYDROcodone Bitartrate/Apap 5/325 Tablet PO ×2 (02:28→20:10)
[2017-08-12 03:26] LABS: Bedside Glucose 150 mg/dL (70-110)
[2017-08-12] MEDS: 0.9% NaCl Peripheral Flush Adult/Peds IV ×4 (06:25→16:08)
[2017-08-12] MEDS: Furosemide 100 MG/10 ML Vial 80 MG IV ×2 (06:25→16:08)
[2017-08-12] MEDS: LINAGLIPTIN 5 MG TABLET PO (06:53)
[2017-08-12] MEDS: Lisinopril 2.5 MG Tablet PO (06:54)
[2017-08-12] MEDS: Levothyroxine 100 MCG Tablet 200 MCG PO (06:54)
[2017-08-12] MEDS: Senna/Docusate Sodium 1 Tablet 2 TABLET PO ×2 (06:54→17:59)
[2017-08-12] MEDS: metroNIDAZOLE 500 MG Tablet PO ×3 (06:54→20:49)
[2017-08-12] MEDS: Pantoprazole Sodium 20 MG Tablet PO (06:55)
[2017-08-12] MEDS: Enoxaparin 40 MG/0.4 ML Syringe SC (06:55)
[2017-08-12] MEDS: Clopidogrel Bisulfate 75 MG Tablet PO (06:55)
[2017-08-12] MEDS: Fluticasone 0.05% 1 SPRAY NASAL.SRY 2 SPRAY NASAL (06:55)
[2017-08-12 06:56] VITALS: PULSE 64
[2017-08-12] MEDS: Metoprolol Tartrate 100 MG Tablet PO ×2 (06:56→17:59)
[2017-08-12] MEDS: Polyethylene Glycol 3350 17 GM PACKET PO (06:57)
--- NOTE | 2017-08-12 07:06 | NURSING ---
FBS 70, pt denies any s/s hyper/hypoglycemia, am insulin held. Oncoming shift aware of fluctuating blood sugars, continuing to monitor.
[2017-08-12 07:16] LABS: Bedside Glucose 70 mg/dL (70-110)
[2017-08-12] MEDS: 0.9% NaCl IVPB Med Flush (250 mL) 15 ML IV ×2 (08:05→11:14)
[2017-08-12] MEDS: Iron Polysaccharide Complex 150 MG CAPSULE PO (08:24)
[2017-08-12] MEDS: Glucerna Shake 120 ML LIQUID PO ×3 (08:24→18:00)
[2017-08-12] MEDS: Aspirin 81 MG TAB.CHEW PO (08:24)
[2017-08-12 08:30] LABS: Anion Gap 7 (5-15); BUN 37 mg/dL (7-18); BUN/Creat Ratio 28.9 RATIO (10-20); Calcium,Total 7.9 mg/dL (8.5-10.1); Chloride 100 mmol/L (98-107); Creatinine, Serum 1.28 mg/dL (0.70-1.30); EST Glomerular Filtration Rate 60 mL/min (>60); Est Glom Filt Rate - Afr Amer 72 mL/min (>60); Estimated Creatinine Clearance 61.28 ml/min; Glucose 81 mg/dL (74-106); Potassium 3.8 mmol/L (3.5-5.1); Sodium Level 139 mmol/L (136-145)
[2017-08-12 11:30] LABS: Bedside Glucose 228 mg/dL (70-110)
[2017-08-12] MEDS: Metolazone 2.5 MG Tablet PO (15:30)
[2017-08-12 15:34] VITALS: BP 124/61; PULSE 88; RESP 18; TEMP 37.1; O2SAT 94
[2017-08-12] MEDS: Fluconazole 100 MG Tablet PO (15:34)
--- NOTE | 2017-08-12 15:42 | NURSING ---
Dr. Batres updated about pt's weight gain and prelim urine culture, N.O. received, pt aware.
[2017-08-12 17:05] LABS: Bedside Glucose 177 mg/dL (70-110)
--- NOTE | 2017-08-12 17:51 | NURSING ---
R PICC drsg and cap changed at this time per policy and protocol; flushed with 10 ml NS. Skin sloughing and redness noted. Dressing placed in area where skin was not sloughing. Patient tolerated well.
[2017-08-12 17:59] VITALS: BP 127/61; PULSE 88
[2017-08-12] MEDS: Atorvastatin Calcium 80 MG Tablet PO (20:49)
[2017-08-12 21:06] LABS: Bedside Glucose 138 mg/dL (70-110)
[2017-08-13 00:21] LABS: Bedside Glucose 122 mg/dL (70-110)
[2017-08-13] MEDS: Metolazone 2.5 MG Tablet PO ×2 (06:24→12:52)
[2017-08-13] MEDS: Furosemide 100 MG/10 ML Vial 80 MG IV ×2 (06:35→14:24)
[2017-08-13] MEDS: 0.9% NaCl Peripheral Flush Adult/Peds IV ×3 (06:35→14:25)
[2017-08-13] MEDS: Fluticasone 0.05% 1 SPRAY NASAL.SRY 2 SPRAY NASAL (06:41)
[2017-08-13] MEDS: Enoxaparin 40 MG/0.4 ML Syringe SC (06:42)
[2017-08-13] MEDS: Fluconazole 100 MG Tablet PO (06:42)
[2017-08-13] MEDS: metroNIDAZOLE 500 MG Tablet PO ×3 (06:42→21:48)
[2017-08-13] MEDS: Polyethylene Glycol 3350 17 GM PACKET PO (06:43)
[2017-08-13] MEDS: Lisinopril 2.5 MG Tablet PO (06:44)
[2017-08-13] MEDS: Pantoprazole Sodium 20 MG Tablet PO (06:44)
[2017-08-13] MEDS: Levothyroxine 100 MCG Tablet 200 MCG PO (06:44)
[2017-08-13] MEDS: Clopidogrel Bisulfate 75 MG Tablet PO (06:44)
[2017-08-13] MEDS: Senna/Docusate Sodium 1 Tablet 2 TABLET PO ×2 (06:44→17:56)
[2017-08-13] MEDS: LINAGLIPTIN 5 MG TABLET PO (06:44)
[2017-08-13 06:45] VITALS: PULSE 64
[2017-08-13] MEDS: Metoprolol Tartrate 100 MG Tablet PO ×2 (06:45→17:56)
[2017-08-13 07:11] LABS: Bedside Glucose 75 mg/dL (70-110)
[2017-08-13] MEDS: 0.9% NaCl IVPB Med Flush (250 mL) 15 ML IV (08:16)
[2017-08-13] MEDS: Glucerna Shake 120 ML LIQUID PO ×3 (08:23→17:55)
[2017-08-13] MEDS: Aspirin 81 MG TAB.CHEW PO (08:25)
[2017-08-13] MEDS: Iron Polysaccharide Complex 150 MG CAPSULE PO (08:25)
[2017-08-13 09:51] LABS: Bedside Glucose 126 mg/dL (70-110)
--- NOTE | 2017-08-13 10:00 | NURSING ---
wound photo: right foot
--- NOTE | 2017-08-13 10:01 | NURSING ---
wound photo: left foot (plantar view)
--- NOTE | 2017-08-13 10:01 | NURSING ---
wound photo: left foot (dorsal view)
[2017-08-13 11:41] LABS: Bedside Glucose 268 mg/dL (70-110)
--- NOTE | 2017-08-13 11:52 | PN.ID_ITS ---
Patient Problems: Active and Suspected Problems Sepsis (Acute) Osteomyelitis of foot (Acute) Subjective: Feeling fine, c/o BLE edema. No fever, no issues with picc. No dysuria. - Physical Exam General: Alert, Cooperative, No apparent distress Lungs: Normal air movement Abdomen: Non-Distended Extremities: Edema Skin: Incision - reviewed photos Vital Signs Temp Pulse Resp BP Pulse Ox 98.8 F 64 18 127/61 H 94 08/12/17 15:34 08/13/17 06:45 08/12/17 15:34 08/12/17 17:59 08/12/17 15:34 Oxygen Delivery Method Room Air Weight: 118.65 kg Body Mass Index (BMI) 34.6 Finger Stick Blood Glucose 164 Intake and Output for Last 24 Hours 08/11/17 08/12/17 08/13/17 23:59 23:59 23:59 Intake Total 1939 1600 / 1600 891 / 891 Balance 1939 1600 / 1600 891 / 891 Microbiology Past 72 Hours 08/10/17 18:12 Urine Culture - Final Urine, Clean Catch Presumptive C albicans 08/10/17 16:40 Blood Culture - Preliminary Blood Culture (Wb) - Line Draw No growth in 48 hours. 08/10/17 17:00 Blood Culture - Preliminary Blood Culture (Wb) - Anticubital Left No growth in 48 hours. 08/10/17 17:10 Respiratory Panel (PCR) - Final Mucosa - Nasopharyngeal POC Glucose 08/13/17 08/13/17 08/13/17 11:35 09:44 07:01 POC Glucose 268 H 126 H 75 08/13/17 08/12/17 08/12/17 00:08 21:00 16:56 POC Glucose 122 H 138 H 177 H Route of nutrition/ use of supplements: [] Nutritional Intake: [] IV Site: [] Meng Catheter: [] - Assessment/Plan Antibiotics: [] Assessment/Plan: [] Active and Suspected Problems Sepsis (Acute) Osteomyelitis of foot (Acute) Bilat foot DM osteomyelitis with PVD - recent angioplasty. MRI shows R 5th metatarsal and toe osteo as well as osteo of L foot stump. Surg debridement/ resection done 07/31. Bilat bone cx with serratia and corynebacterium and one also with methicillin-resistant S. hominis. Cont vanc/ceftriaxone/flagyl. Plan is for 6 weeks of abx, stop date 09/11/17. Weekly bmp, cbc, and esr while on abx. ESR 08/01 was 53. May be able to change to po abx from iv prior to his stop date. Incisions appear to be healing well. 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 Multiple neg cxs for MRSA since then. small amount of candiduria - only 1-10k of growth and UA with no inflammation. Will stop fluconazole. will follow.
--- NOTE | 2017-08-13 12:11 | CASEMGMT ---
Insurance Clinical information faxed. Pending continued stay approval at this time. Auth#[id number] Nohemi SYED, STAFF RADIOGRAPHER
--- NOTE | 2017-08-13 13:41 | PCM.RX.CS ---
Subjective/Objective Date: 08/13/17 Time: 13:41 Antibiotic: Vancomycin Type of Consult: Follow-up Current Antibiotic Regimen: Medications Vancomycin HCl 1,750 mg/ (Sodium Chloride) 535 mls @ 260 mls/hr IV Q24H IGNACIO Stop: 09/11/17 23:59 Last Admin: 08/13/17 08:16 Dose: 260 mls/hr Indications for Therapy: Osteomyelitis Labs: Sodium 139 mmol/L (136-145) 08/12/17 06:18 Potassium 3.8 mmol/L (3.5-5.1) 08/12/17 06:18 Chloride 100 mmol/L (98-107) 08/12/17 06:18 Carbon Dioxide 32.0 mmol/L (21.0-32.0) 08/12/17 06:18 Anion Gap 7 (5-15) 08/12/17 06:18 BUN 37 mg/dL (7-18) H 08/12/17 06:18 Creatinine 1.28 mg/dL (0.70-1.30) 08/12/17 06:18 Est GFR (MDRD) Af Amer 72 mL/min (>60) 08/12/17 06:18 Est GFR (MDRD) Non-Af 60 mL/min (>60) 08/12/17 06:18 BUN/Creatinine Ratio 28.9 RATIO (10-20) H 08/12/17 06:18 Glucose 81 mg/dL (74-106) 08/12/17 06:18 Vancomycin Trough 16.9 ug/mL (5.0-15.0) H 08/11/17 07:10 Estimated Creatinine Clearance: 60-70 mL/min Pharmacy Plan for Drug Dosing: Vancomycin trough within goal range. Recommend to continue vancomycin as ordered, re-check trough to ensure patient does not begin to accumulate at current dose, move to weekly checks after that if ok. Stop date per ID is after 09/11/17 Pharmacy Service will continue to monitor and adjust dosing as required. Pharmacy to order these labs: Trough - Vancomycin Labs to be done on (date): 08/16/17 Labs to be done (time): 08:00
--- NOTE | 2017-08-13 13:44 | PHA.PHARE_ITS ---
Subjective/Objective Date: 08/13/17 Time: 13:41 Antibiotic: Vancomycin Type of Consult: Follow-up Current Antibiotic Regimen: Medications Vancomycin HCl 1,750 mg/ (Sodium Chloride) 535 mls @ 260 mls/hr IV Q24H IGNACIO Stop: 09/11/17 23:59 Last Admin: 08/13/17 08:16 Dose: 260 mls/hr Indications for Therapy: Osteomyelitis Labs: Sodium 139 mmol/L (136-145) 08/12/17 06:18 Potassium 3.8 mmol/L (3.5-5.1) 08/12/17 06:18 Chloride 100 mmol/L (98-107) 08/12/17 06:18 Carbon Dioxide 32.0 mmol/L (21.0-32.0) 08/12/17 06:18 Anion Gap 7 (5-15) 08/12/17 06:18 BUN 37 mg/dL (7-18) H 08/12/17 06:18 Creatinine 1.28 mg/dL (0.70-1.30) 08/12/17 06:18 Est GFR (MDRD) Af Amer 72 mL/min (>60) 08/12/17 06:18 Est GFR (MDRD) Non-Af 60 mL/min (>60) 08/12/17 06:18 BUN/Creatinine Ratio 28.9 RATIO (10-20) H 08/12/17 06:18 Glucose 81 mg/dL (74-106) 08/12/17 06:18 Vancomycin Trough 16.9 ug/mL (5.0-15.0) H 08/11/17 07:10 Estimated Creatinine Clearance: 60-70 mL/min Pharmacy Plan for Drug Dosing: Vancomycin trough within goal range. Recommend to continue vancomycin as ordered , re-check trough to ensure patient does not begin to accumulate at current dose, move to weekly checks after that if ok. Stop date per ID is after 09/11/17 Pharmacy Service will continue to monitor and adjust dosing as required. Pharmacy to order these labs: Trough - Vancomycin Labs to be done on (date): 08/16/17 Labs to be done (time): 08:00
[2017-08-13 15:50] VITALS: BP 129/49; PULSE 67; RESP 18; TEMP 36.6; O2SAT 93
[2017-08-13 17:16] LABS: Bedside Glucose 175 mg/dL (70-110)
[2017-08-13 17:56] VITALS: BP 129/49; PULSE 67
[2017-08-13 21:21] LABS: Bedside Glucose 175 mg/dL (70-110)
[2017-08-13] MEDS: Atorvastatin Calcium 80 MG Tablet PO (21:48)
[2017-08-13 22:06] VITALS: PULSE 70; RESP 18; O2SAT 94
[2017-08-14 05:10] VITALS: BP 142/66; PULSE 68
[2017-08-14] MEDS: Metolazone 2.5 MG Tablet PO ×2 (05:10→13:05)
[2017-08-14] MEDS: Polyethylene Glycol 3350 17 GM PACKET PO (05:10)
[2017-08-14] MEDS: Metoprolol Tartrate 100 MG Tablet PO ×2 (05:10→17:41)
[2017-08-14] MEDS: metroNIDAZOLE 500 MG Tablet PO ×3 (05:10→21:10)
[2017-08-14] MEDS: Lisinopril 2.5 MG Tablet PO (05:10)
[2017-08-14] MEDS: LINAGLIPTIN 5 MG TABLET PO (05:10)
[2017-08-14] MEDS: Senna/Docusate Sodium 1 Tablet 2 TABLET PO ×2 (05:10→17:41)
[2017-08-14] MEDS: Enoxaparin 40 MG/0.4 ML Syringe SC (05:10)
[2017-08-14] MEDS: Levothyroxine 100 MCG Tablet 200 MCG PO (05:10)
[2017-08-14] MEDS: Clopidogrel Bisulfate 75 MG Tablet PO (05:11)
[2017-08-14] MEDS: Fluticasone 0.05% 1 SPRAY NASAL.SRY 2 SPRAY NASAL (05:14)
[2017-08-14] MEDS: Pantoprazole Sodium 20 MG Tablet PO (05:14)
[2017-08-14] MEDS: Furosemide 100 MG/10 ML Vial 80 MG IV ×2 (05:59→13:58)
[2017-08-14] MEDS: 0.9% NaCl Peripheral Flush Adult/Peds IV ×3 (06:02→13:58)
[2017-08-14 06:15] LABS: Bedside Glucose 251 mg/dL (70-110)
[2017-08-14] MEDS: Glucerna Shake 120 ML LIQUID PO ×3 (08:15→17:40)
[2017-08-14] MEDS: Iron Polysaccharide Complex 150 MG CAPSULE PO (08:18)
[2017-08-14] MEDS: Aspirin 81 MG TAB.CHEW PO (08:18)
[2017-08-14] MEDS: 0.9% NaCl IVPB Med Flush (250 mL) 15 ML IV (08:25)
[2017-08-14 11:26] LABS: Bedside Glucose 364 mg/dL (70-110)
--- NOTE | 2017-08-14 15:04 | CHAPLAIN ---
Type of Pastoral Visit ___ Initial Visit _x__ Follow-up Visit ___ On-call Visit ___ General Patient Visit ___ Spiritual Assessment ___ Family Conference ___ Bereavement ___ Rapid Response ___ Code Blue ___ Other (describe below) Pastoral Care Referral From _x__ Patient ___ Family ___ Nurse ___ Physician ___ Librarian Helper ___ Tavern Operator ___ Other (describe below) Sacrament/Intervention _x__ Active listening ___ Anointing ___ Islam ___ Bereavement ___ Communion _x__ Elsa exploration ___ ___ Life review _x__ Prayer ___ Reconciliation ___ Sacrament of Sick _x__ Supportive presence ___ Wedding ___ Other (describe below) Pastoral Comments last visit was interrupted so follow up was appreciated
[2017-08-14 15:30] VITALS: BP 118/58; PULSE 72; RESP 18; TEMP 36.4; O2SAT 92
[2017-08-14 17:06] LABS: Bedside Glucose 250 mg/dL (70-110)
[2017-08-14 17:41] VITALS: BP 118/58; PULSE 72
[2017-08-14] MEDS: Atorvastatin Calcium 80 MG Tablet PO (21:10)
[2017-08-14 21:11] LABS: Bedside Glucose 311 mg/dL (70-110)
[2017-08-14 22:00] VITALS: BP 145/69; PULSE 62; RESP 18; TEMP 36.3; O2SAT 97
[2017-08-15] MEDS: Fluticasone 0.05% 1 SPRAY NASAL.SRY 2 SPRAY NASAL (05:02)
[2017-08-15 05:03] VITALS: BP 138/59; PULSE 74
[2017-08-15] MEDS: Senna/Docusate Sodium 1 Tablet 2 TABLET PO ×2 (05:03→17:40)
[2017-08-15] MEDS: Pantoprazole Sodium 20 MG Tablet PO (05:03)
[2017-08-15] MEDS: Clopidogrel Bisulfate 75 MG Tablet PO (05:03)
[2017-08-15] MEDS: Metoprolol Tartrate 100 MG Tablet PO ×2 (05:03→17:39)
[2017-08-15] MEDS: Lisinopril 2.5 MG Tablet PO (05:03)
[2017-08-15] MEDS: Metolazone 2.5 MG Tablet PO ×2 (05:03→13:15)
[2017-08-15] MEDS: metroNIDAZOLE 500 MG Tablet PO ×3 (05:03→20:46)
[2017-08-15] MEDS: Levothyroxine 100 MCG Tablet 200 MCG PO (05:03)
[2017-08-15] MEDS: LINAGLIPTIN 5 MG TABLET PO (05:04)
[2017-08-15] MEDS: Polyethylene Glycol 3350 17 GM PACKET PO (05:04)
[2017-08-15] MEDS: Enoxaparin 40 MG/0.4 ML Syringe SC (05:04)
[2017-08-15] MEDS: 0.9% NaCl Peripheral Flush Adult/Peds IV ×5 (06:11→14:10)
[2017-08-15] MEDS: Furosemide 100 MG/10 ML Vial 80 MG IV ×2 (06:18→14:09)
--- NOTE | 2017-08-15 06:56 | NURSING ---
Pt noted to have blood all over lt arm and toilet paper dispenser. Small skin tear noted to Lt elbow. Cleansed with NS and band aid applied. Pt stated to of hit his elbow on toilet paper dispenser. Denies further needs.
[2017-08-15 07:00] VITALS: PULSE 74; RESP 20; O2SAT 95
[2017-08-15 07:05] LABS: Bedside Glucose 230 mg/dL (70-110)
[2017-08-15] MEDS: Aspirin 81 MG TAB.CHEW PO (08:08)
[2017-08-15] MEDS: Iron Polysaccharide Complex 150 MG CAPSULE PO (08:08)
[2017-08-15] MEDS: Glucerna Shake 120 ML LIQUID PO ×3 (08:54→17:40)
[2017-08-15] MEDS: 0.9% NaCl IVPB Med Flush (250 mL) 15 ML IV (09:42)
[2017-08-15 09:43] VITALS: PULSE 64; RESP 18; O2SAT 94
[2017-08-15 11:26] LABS: Bedside Glucose 221 mg/dL (70-110)
--- NOTE | 2017-08-15 14:44 | CASEMGMT ---
Insurance Continued stay approved with next update due on 08/27/17. Auth#[id number] Nohemi SYED, MANAGER MARKETING
[2017-08-15 16:00] VITALS: BP 126/43; PULSE 74; RESP 20; TEMP 36.9; O2SAT 94
[2017-08-15 17:20] LABS: Bedside Glucose 129 mg/dL (70-110)
[2017-08-15 17:39] VITALS: PULSE 74
--- NOTE | 2017-08-15 18:43 | NURSING ---
Pt refused novolog this evening his BS was 124. Pt stated his sugar would drop to low.
[2017-08-15] MEDS: Atorvastatin Calcium 80 MG Tablet PO (20:46)
[2017-08-15 20:56] LABS: Bedside Glucose 196 mg/dL (70-110)
[2017-08-16] MEDS: LINAGLIPTIN 5 MG TABLET PO (04:47)
[2017-08-16] MEDS: Clopidogrel Bisulfate 75 MG Tablet PO (04:47)
[2017-08-16] MEDS: Metolazone 2.5 MG Tablet 5 MG PO ×2 (04:47→13:21)
[2017-08-16] MEDS: Senna/Docusate Sodium 1 Tablet 2 TABLET PO ×2 (04:47→17:27)
[2017-08-16] MEDS: Levothyroxine 100 MCG Tablet 200 MCG PO (04:47)
[2017-08-16] MEDS: Polyethylene Glycol 3350 17 GM PACKET PO (04:47)
[2017-08-16] MEDS: Lisinopril 2.5 MG Tablet PO (04:47)
[2017-08-16 04:48] VITALS: BP 142/65; PULSE 65
[2017-08-16] MEDS: metroNIDAZOLE 500 MG Tablet PO ×3 (04:48→20:45)
[2017-08-16] MEDS: Pantoprazole Sodium 20 MG Tablet PO (04:48)
[2017-08-16] MEDS: Metoprolol Tartrate 100 MG Tablet PO ×2 (04:48→17:28)
[2017-08-16] MEDS: Fluticasone 0.05% 1 SPRAY NASAL.SRY 2 SPRAY NASAL (04:50)
[2017-08-16] MEDS: Enoxaparin 40 MG/0.4 ML Syringe SC (04:50)
[2017-08-16] MEDS: Furosemide 100 MG/10 ML Vial 80 MG IV ×2 (05:30→14:59)
[2017-08-16] MEDS: 0.9% NaCl Peripheral Flush Adult/Peds IV (05:33)
[2017-08-16 06:41] LABS: Bedside Glucose 219 mg/dL (70-110)
[2017-08-16 08:26] LABS: Vancomycin, Trough Level 17.3 ug/mL (5.0-15.0)
--- NOTE | 2017-08-16 08:44 | PCM.RX.CS ---
Subjective/Objective Antibiotic: Vancomycin Type of Consult: Follow-up Prior Doses of Antibiotics Received/Current Regimen: Medications Vancomycin HCl 1,750 mg/ (Sodium Chloride) 535 mls @ 260 mls/hr IV Q24H IGNACIO Stop: 09/11/17 23:59 Last Admin: 08/15/17 09:35 Dose: 260 mls/hr Labs: Sodium 139 mmol/L (136-145) 08/12/17 06:18 Potassium 3.8 mmol/L (3.5-5.1) 08/12/17 06:18 Chloride 100 mmol/L (98-107) 08/12/17 06:18 Carbon Dioxide 32.0 mmol/L (21.0-32.0) 08/12/17 06:18 Anion Gap 7 (5-15) 08/12/17 06:18 BUN 37 mg/dL (7-18) H 08/12/17 06:18 Creatinine 1.28 mg/dL (0.70-1.30) 08/12/17 06:18 Est GFR (MDRD) Af Amer 72 mL/min (>60) 08/12/17 06:18 Est GFR (MDRD) Non-Af 60 mL/min (>60) 08/12/17 06:18 BUN/Creatinine Ratio 28.9 RATIO (10-20) H 08/12/17 06:18 Glucose 81 mg/dL (74-106) 08/12/17 06:18 Vancomycin Trough 17.3 ug/mL (5.0-15.0) H 08/16/17 07:45 Estimated Creatinine Clearance: 60-65 mL/min Pharmacy Plan for Drug Dosing: Vancomycin trough within goal range. Recommend to continue current regimen and move to weekly trough checks, starting next . Pharmacy Service will continue to monitor and adjust dosing as required. Pharmacy to order these labs: Trough - Vancomycin Labs to be done on (date): 08/23/17 Labs to be done (time): 08:00
[2017-08-16] MEDS: Aspirin 81 MG TAB.CHEW PO (08:47)
[2017-08-16] MEDS: Iron Polysaccharide Complex 150 MG CAPSULE PO (08:47)
[2017-08-16 10:00] VITALS: PULSE 84; RESP 18; O2SAT 94
--- NOTE | 2017-08-16 11:15 | PN.ID_ITS ---
Patient Problems: Active and Suspected Problems Sepsis (Acute) Osteomyelitis of foot (Acute) Subjective: Feeling well, no fever, no n/v/d. C/o leg and scrotal edema. - Physical Exam General: Alert, Cooperative, No apparent distress Lungs: Clear to auscultation, Normal air movement Cardiovascular: Regular rate, Regular Rhythm Abdomen: Soft, Non Tender, Non-Distended Extremities: Edema Skin: Incision - Bilateral feet healing well, no drainage Vital Signs Temp Pulse Resp BP Pulse Ox 98.5 F 65 20 H 142/65 H 94 08/15/17 16:00 08/16/17 04:48 08/15/17 16:00 08/16/17 04:48 08/15/17 16:00 Oxygen Delivery Method Room Air Weight: 119.068 kg Body Mass Index (BMI) 34.6 Finger Stick Blood Glucose 164 Intake and Output for Last 24 Hours 08/14/17 08/15/17 08/16/17 23:59 23:59 23:59 Intake Total 1140 / 1140 940 / 940 240 / 240 Balance 1140 / 1140 940 / 940 240 / 240 Microbiology Past 72 Hours 08/10/17 16:40 Blood Culture - Final Blood Culture (Wb) - Line Draw No growth in 5 days. 08/10/17 17:00 Blood Culture - Final Blood Culture (Wb) - Anticubital Left No growth in 5 days. 08/10/17 18:12 Urine Culture - Final Urine, Clean Catch Presumptive C albicans Laboratory Tests Past 24 Hrs 08/16/17 07:45 Vancomycin Trough 17.3 H POC Glucose 08/16/17 08/15/17 08/15/17 06:32 20:44 17:14 POC Glucose 219 H 196 H 129 H 08/15/17 11:19 POC Glucose 221 H Route of nutrition/ use of supplements: [] Nutritional Intake: [] IV Site: [] Meng Catheter: [] - Assessment/Plan Antibiotics: [] Assessment/Plan: [] Active and Suspected Problems Sepsis (Acute) Osteomyelitis of foot (Acute) Bilat foot DM osteomyelitis with PVD - recent angioplasty. MRI shows R 5th metatarsal and toe osteo as well as osteo of L foot stump. Surg debridement/ resection done 07/31. Bilat bone cx with serratia and corynebacterium and one also with methicillin-resistant S. hominis. Cont vanc/ceftriaxone/flagyl. Plan is for 6 weeks of abx, stop date 09/11/17. Weekly bmp, cbc, vanc trough, and esr while on abx. ESR 08/01 was 53. Incisions appear to be healing well. Would need home antibiotics arranged if he is discharged. 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 Multiple neg cxs for MRSA since then. small amount of candiduria - only 1-10k of growth and UA with no inflammation. Stopped fluconazole. will follow.
[2017-08-16 11:41] LABS: Bedside Glucose 156 mg/dL (70-110)
[2017-08-16] MEDS: Glucerna Shake 120 ML LIQUID PO (13:20)
--- NOTE | 2017-08-16 14:01 | MDS.RN ---
Information for the mds was obtained from review of the clinical record, interview of resident, staff, and direct observation of resident's care.
[2017-08-16 17:01] LABS: Bedside Glucose 244 mg/dL (70-110)
[2017-08-16 17:28] VITALS: PULSE 76
[2017-08-16 19:53] VITALS: BP 136/58; PULSE 70; RESP 18; TEMP 36.7; O2SAT 94
[2017-08-16] MEDS: Atorvastatin Calcium 80 MG Tablet PO (20:45)
[2017-08-16 21:16] LABS: Bedside Glucose 340 mg/dL (70-110)
[2017-08-17] MEDS: Senna/Docusate Sodium 1 Tablet 2 TABLET PO ×2 (04:35→17:47)
[2017-08-17] MEDS: Metolazone 2.5 MG Tablet 5 MG PO ×2 (04:35→13:33)
[2017-08-17] MEDS: metroNIDAZOLE 500 MG Tablet PO ×3 (04:35→21:13)
[2017-08-17 04:36] VITALS: BP 131/71; PULSE 73
[2017-08-17] MEDS: Metoprolol Tartrate 100 MG Tablet PO ×2 (04:36→17:46)
[2017-08-17] MEDS: LINAGLIPTIN 5 MG TABLET PO (04:36)
[2017-08-17] MEDS: Lisinopril 2.5 MG Tablet PO (04:36)
[2017-08-17] MEDS: Pantoprazole Sodium 20 MG Tablet PO (04:36)
[2017-08-17] MEDS: Levothyroxine 100 MCG Tablet 200 MCG PO (04:36)
[2017-08-17] MEDS: Enoxaparin 40 MG/0.4 ML Syringe SC (04:37)
[2017-08-17] MEDS: Fluticasone 0.05% 1 SPRAY NASAL.SRY 2 SPRAY NASAL (04:37)
[2017-08-17] MEDS: Polyethylene Glycol 3350 17 GM PACKET PO (04:37)
[2017-08-17] MEDS: Clopidogrel Bisulfate 75 MG Tablet PO (04:37)
[2017-08-17] MEDS: Furosemide 100 MG/10 ML Vial 80 MG IV ×2 (05:50→15:00)
[2017-08-17] MEDS: 0.9% NaCl Peripheral Flush Adult/Peds IV ×2 (05:53→15:00)
[2017-08-17 06:56] LABS: Bedside Glucose 341 mg/dL (70-110)
[2017-08-17] MEDS: Glucerna Shake 120 ML LIQUID PO ×3 (08:26→17:45)
[2017-08-17] MEDS: Iron Polysaccharide Complex 150 MG CAPSULE PO (08:28)
[2017-08-17] MEDS: Aspirin 81 MG TAB.CHEW PO (08:28)
[2017-08-17 10:00] VITALS: PULSE 68; RESP 18; O2SAT 95
--- NOTE | 2017-08-17 10:31 | NURSING ---
PT PICKED AT A MOLE ON RIGHT SIDE OF FACE AND MADE IT BLEED. CLEANED AREA AND APPLYED BANDAID. REPORTED TO ISABEL LAWSON
--- NOTE | 2017-08-17 10:54 | NURSING ---
PT COMPLANED OF LEFT SIDE PAIN. PT STATED HE HAS HAD IT FOR YEARS AND SAID SOMTHING TO DOCTOR ABOUT IT. PT STATED IT COMES AND GOES. REPORTED TO ISABEL LAWSON
[2017-08-17 12:01] LABS: Bedside Glucose 359 mg/dL (70-110)
--- NOTE | 2017-08-17 13:59 | PCM.RX.CS ---
Consult Type of Consult: Follow-up Suspected Infection: Other Labs: Sodium 139 mmol/L (136-145) 08/12/17 06:18 Potassium 3.8 mmol/L (3.5-5.1) 08/12/17 06:18 Chloride 100 mmol/L (98-107) 08/12/17 06:18 Carbon Dioxide 32.0 mmol/L (21.0-32.0) 08/12/17 06:18 Anion Gap 7 (5-15) 08/12/17 06:18 BUN 37 mg/dL (7-18) H 08/12/17 06:18 Creatinine 1.28 mg/dL (0.70-1.30) 08/12/17 06:18 Est GFR (MDRD) Af Amer 72 mL/min (>60) 08/12/17 06:18 Est GFR (MDRD) Non-Af 60 mL/min (>60) 08/12/17 06:18 BUN/Creatinine Ratio 28.9 RATIO (10-20) H 08/12/17 06:18 Glucose 81 mg/dL (74-106) 08/12/17 06:18 Vancomycin Trough 17.3 ug/mL (5.0-15.0) H 08/16/17 07:45 Microbiology: Microbiology 08/10/17 16:40 Blood Culture (Wb) - Line Draw Blood Culture - Final No growth in 5 days. 08/10/17 17:00 Blood Culture (Wb) - Anticubital Left Blood Culture - Final No growth in 5 days. 08/10/17 18:12 Urine, Clean Catch Urine Culture - Final Presumptive C albicans 08/10/17 17:10 Mucosa - Nasopharyngeal Respiratory Panel (PCR) - Final Goal Trough: Other Pharmacy Plan for Drug Dosing: Pharmacy Service will continue to monitor and adjust dosing as required.
--- NOTE | 2017-08-17 15:38 | CASEMGMT ---
Brief interview for mental status (BIMS) and resident mood interview (PHQ-9) completed on this day. BIMS score 15. PHQ-9 score 11/04
[2017-08-17 16:00] VITALS: BP 130/59; PULSE 69; RESP 20; TEMP 36.7; O2SAT 90
[2017-08-17 17:11] LABS: Bedside Glucose 184 mg/dL (70-110)
[2017-08-17 17:46] VITALS: BP 130/59; PULSE 69
[2017-08-17] MEDS: HYDROcodone Bitartrate/Apap 5/325 Tablet PO (17:52)
[2017-08-17] MEDS: Atorvastatin Calcium 80 MG Tablet PO (21:13)
--- NOTE | 2017-08-17 21:15 | NURSING ---
Patient complaining of scrotum being uncomfortable due to swelling. Scrotum elevated with pillow as scrotal sling. Patient communicated relief.
[2017-08-17 21:46] LABS: Bedside Glucose 254 mg/dL (70-110)
[2017-08-18] MEDS: Metolazone 2.5 MG Tablet 5 MG PO ×2 (04:35→13:33)
[2017-08-18] MEDS: 0.9% NaCl PICC Flush IV ×3 (04:36→14:42)
[2017-08-18 05:25] VITALS: BP 150/71; PULSE 68; RESP 18; TEMP 36.4; O2SAT 93
[2017-08-18] MEDS: metroNIDAZOLE 500 MG Tablet PO ×3 (05:28→21:50)
[2017-08-18] MEDS: Clopidogrel Bisulfate 75 MG Tablet PO (05:28)
[2017-08-18] MEDS: LINAGLIPTIN 5 MG TABLET PO (05:28)
[2017-08-18] MEDS: Lisinopril 2.5 MG Tablet PO (05:28)
[2017-08-18 05:29] VITALS: PULSE 68
[2017-08-18] MEDS: Senna/Docusate Sodium 1 Tablet 2 TABLET PO ×2 (05:29→16:59)
[2017-08-18] MEDS: Levothyroxine 100 MCG Tablet 200 MCG PO (05:29)
[2017-08-18] MEDS: Metoprolol Tartrate 100 MG Tablet PO ×2 (05:29→16:58)
[2017-08-18] MEDS: Polyethylene Glycol 3350 17 GM PACKET PO (05:29)
[2017-08-18] MEDS: Pantoprazole Sodium 20 MG Tablet PO (05:30)
[2017-08-18] MEDS: Furosemide 100 MG/10 ML Vial 80 MG IV ×2 (05:30→14:42)
[2017-08-18] MEDS: Enoxaparin 40 MG/0.4 ML Syringe SC (05:30)
[2017-08-18] MEDS: Fluticasone 0.05% 1 SPRAY NASAL.SRY 2 SPRAY NASAL (05:34)
[2017-08-18 06:55] LABS: Bedside Glucose 160 mg/dL (70-110)
[2017-08-18 07:50] LABS: Absolute Lymphocyte Count 1.33 X10^3/ul (0.83-4.51); Absolute Neutrophil Count 6.3 X10^3/uL (2.0-7.7); Basophil# 0.05 X10^3/uL; Basophil% 0.5 % (0-1); Eosinophil# 0.62 X10^3/uL; Eosinophils% 6.6 % (0-5); Hematocrit 37.8 % (40-54); Hemoglobin 12.2 g/dl (13.0-16.5); Lymphocyte # 1.33 X10^3/ul (4.0); Lymphocyte % 14.1 % (19-41); Mean Corp Hgb Conc 32.3 g/gl (32-36); Mean Corpuscular Hgb 29.2 pg (27.0-32.0); Mean Corpuscular Volume 90.4 fL (80-94); Mean Platelet Vol. 9.7 fl (6.2-12.0); Monocyte# 1.06 X10^3/uL; Monocyte% 11.2 % (0-10); Neutrophil # 6.34 X10^3/uL (2.7-7.7); Neutrophil % 67.3 % (47-70); POSITIVE COUNT NO; POSITIVE DIFFERENTIAL NO; POSITIVE MORPHOLOGY NO; Platelet Count 370 K/mm3 (150-450); RBC Distribution Width CV 15.2 % (11.6-14.6); RBC Distribution Width SD 49.8 fl (35.1-43.9); Red Blood Count 4.18 M/mm3 (4.6-6.2); White Blood Count 9.4 K/mm3 (4.4-11.0)
[2017-08-18 08:04] LABS: Anion Gap 6 (5-15); BUN 30 mg/dL (7-18); BUN/Creat Ratio 23.4 RATIO (10-20); Calcium,Total 8.3 mg/dL (8.5-10.1); Chloride 99 mmol/L (98-107); Creatinine, Serum 1.28 mg/dL (0.70-1.30); EST Glomerular Filtration Rate 60 mL/min (>60); Est Glom Filt Rate - Afr Amer 72 mL/min (>60); Estimated Creatinine Clearance 61.28 ml/min; Glucose 148 mg/dL (74-106); Potassium 3.4 mmol/L (3.5-5.1); Sodium Level 138 mmol/L (136-145)
[2017-08-18] MEDS: Aspirin 81 MG TAB.CHEW PO (08:10)
[2017-08-18] MEDS: Iron Polysaccharide Complex 150 MG CAPSULE PO (08:10)
[2017-08-18] MEDS: Glucerna Shake 120 ML LIQUID PO (08:16)
[2017-08-18] MEDS: 0.9% NaCl Peripheral Flush Adult/Peds IV ×2 (08:37→11:09)
[2017-08-18] MEDS: 0.9% NaCl IVPB Med Flush (250 mL) 15 ML IV (08:44)
[2017-08-18 11:21] LABS: Bedside Glucose 125 mg/dL (70-110)
--- NOTE | 2017-08-18 14:15 | PCM.PROGNOTE ---
Patient Problems: Active and Suspected Problems Sepsis (Acute) Osteomyelitis of foot (Acute) Subjective: Patient was seen today for follow up on bilateral feet. He relates he is doing well, and he did not have any new complaints. He was resting in recliner with his feet elevated. - Physical Exam General: Alert, Oriented x3, Cooperative, No apparent distress Extremities: No Calf Tenderness, - - Right foot s/p 5th ray resection with incision well coapted and sutures intact, there is no dehiscence and no drainage, no necrosis, no cellulitis, no blistering, no fluctuance, no malodor appreciated. Left surgical site s/p TMA, incision well coapted with intact sutures, no drainage, no necrosis, no cellulitis, no blistering, no fluctuance, no malodor appreciated. Very small superficial wound dorsal right 2nd toe healing well and no evidence of infection. No acute ischemia bilateral lower extremity, no new ulcerations, bilateral lower extremity edema controlled with compression dressings. Psych/Mental Status: Normal Affect, Appropriate, Alert and oriented to time, place, person, mood and affect Vital Signs Temp Pulse Resp BP Pulse Ox 97.6 F L 68 18 150/71 H 93 08/18/17 05:25 08/18/17 05:29 08/18/17 05:25 08/18/17 05:25 08/18/17 05:25 Oxygen Delivery Method Room Air Weight: 119.068 kg Body Mass Index (BMI) 34.6 Finger Stick Blood Glucose 164 Intake and Output for Last 24 Hours 08/16/17 08/17/17 08/18/17 23:59 23:59 23:59 Intake Total 950 / 950 1842 / 1842 460 / 460 Output Total 280 / 280 Balance 950 / 950 1842 / 1842 180 / 180 Microbiology Past 72 Hours 08/10/17 16:40 Blood Culture - Final Blood Culture (Wb) - Line Draw No growth in 5 days. 08/10/17 17:00 Blood Culture - Final Blood Culture (Wb) - Anticubital Left No growth in 5 days. Laboratory Tests Past 24 Hrs 08/18/17 08/18/17 07:30 07:30 WBC 9.4 RBC 4.18 L Hgb 12.2 L Hct 37.8 L MCV 90.4 MCH 29.2 MCHC 32.3 RDW 15.2 H RDW Differential 49.8 H Plt Count 370 MPV 9.7 Immature Gran % (Auto) 0.300 Neut % (Auto) 67.3 Lymph % (Auto) 14.1 L [place] % (Auto) 11.2 H Eos % (Auto) 6.6 H Baso % (Auto) 0.5 Absolute Neuts (auto) 6.3 Absolute Lymphs (auto) 1.33 Total Counted Not Reportable Sodium 138 Potassium 3.4 L Chloride 99 Carbon Dioxide 33.0 H Anion Gap 6 BUN 30 H Creatinine 1.28 Estim Creat Clear Calc 61.28 Est GFR (MDRD) Af Amer 72 Est GFR (MDRD) Non-Af 60 BUN/Creatinine Ratio 23.4 H Glucose 148 H Calcium 8.3 L POC Glucose 08/18/17 08/18/17 08/17/17 11:10 06:49 21:11 POC Glucose 125 H 160 H 254 H 08/17/17 17:03 POC Glucose 184 H Assessment/Plan Active and Suspected Problems Sepsis (Acute) Osteomyelitis of foot (Acute) osteomyelitis bilateral feet s/p surgical intervention on 07/31/17 Bilateral feet examined, sites healing well. Continue with dressing changes. Today Betadine solution and adaptic was applied to the incision sites with overlying 4x4 gauze, abd, kerlix, and CIERA bandages applied below knee. Dressing changes by nursing is much appreciated. Patient also being followed by Infectious Disease, and is currently completing course of antibiotic therapy for osteomyelitis. Chronic lower extremity PAD, per vascular surgery. Medical management per Dr. Batres/medicine team. Podiatry will continue to follow. Please contact with any questions or concerns.
[2017-08-18 16:49] VITALS: BP 129/63; PULSE 75; RESP 16; TEMP 36.4; O2SAT 94
[2017-08-18 16:58] VITALS: PULSE 75
[2017-08-18 17:06] LABS: Bedside Glucose 194 mg/dL (70-110)
[2017-08-18 21:41] LABS: Bedside Glucose 219 mg/dL (70-110)
[2017-08-18] MEDS: Atorvastatin Calcium 80 MG Tablet PO (21:51)
[2017-08-18 22:00] VITALS: PULSE 72; RESP 20; O2SAT 93
[2017-08-18 22:11] VITALS: BP 125/59; PULSE 72; RESP 20; TEMP 36.9; O2SAT 93
[2017-08-19] MEDS: Fluticasone 0.05% 1 SPRAY NASAL.SRY 2 SPRAY NASAL (05:03)
[2017-08-19] MEDS: Lisinopril 2.5 MG Tablet PO (05:05)
[2017-08-19] MEDS: Clopidogrel Bisulfate 75 MG Tablet PO (05:06)
[2017-08-19] MEDS: Levothyroxine 100 MCG Tablet 200 MCG PO (05:06)
[2017-08-19] MEDS: Metolazone 2.5 MG Tablet 5 MG PO ×2 (05:06→11:48)
[2017-08-19] MEDS: Senna/Docusate Sodium 1 Tablet 2 TABLET PO (05:06)
[2017-08-19 05:07] VITALS: BP 143/64; PULSE 75
[2017-08-19] MEDS: Metoprolol Tartrate 100 MG Tablet PO ×2 (05:07→16:59)
[2017-08-19] MEDS: LINAGLIPTIN 5 MG TABLET PO (05:07)
[2017-08-19] MEDS: Polyethylene Glycol 3350 17 GM PACKET PO (05:08)
[2017-08-19] MEDS: Pantoprazole Sodium 20 MG Tablet PO (05:08)
[2017-08-19] MEDS: metroNIDAZOLE 500 MG Tablet PO ×3 (05:08→20:18)
[2017-08-19] MEDS: Enoxaparin 40 MG/0.4 ML Syringe SC (05:09)
[2017-08-19] MEDS: 0.9% NaCl Peripheral Flush Adult/Peds IV ×2 (05:45→07:15)
[2017-08-19] MEDS: Furosemide 100 MG/10 ML Vial 80 MG IV ×2 (05:45→13:29)
[2017-08-19 07:05] LABS: Bedside Glucose 310 mg/dL (70-110)
[2017-08-19] MEDS: Iron Polysaccharide Complex 150 MG CAPSULE PO (07:56)
[2017-08-19] MEDS: Glucerna Shake 120 ML LIQUID PO ×2 (07:57→11:46)
[2017-08-19] MEDS: Aspirin 81 MG TAB.CHEW PO (07:57)
[2017-08-19 10:00] VITALS: PULSE 73; RESP 18; O2SAT 93
[2017-08-19 11:36] LABS: Bedside Glucose 348 mg/dL (70-110)
[2017-08-19] MEDS: 0.9% NaCl PICC Flush IV (13:29)
[2017-08-19 15:07] VITALS: BP 108/46; PULSE 73; RESP 16; TEMP 36.7; O2SAT 94
[2017-08-19 16:59] VITALS: PULSE 73
[2017-08-19 17:26] LABS: Bedside Glucose 340 mg/dL (70-110)
[2017-08-19] MEDS: Atorvastatin Calcium 80 MG Tablet PO (20:18)
[2017-08-19 20:36] LABS: Bedside Glucose 287 mg/dL (70-110)
[2017-08-20] MEDS: Hydrocortisone 2.5% Crm 1 APPLIC TOPICAL (04:43)
[2017-08-20] MEDS: Enoxaparin 40 MG/0.4 ML Syringe SC (04:44)
[2017-08-20 04:46] VITALS: BP 165/86; PULSE 90
[2017-08-20] MEDS: Metoprolol Tartrate 100 MG Tablet PO ×2 (04:46→17:49)
[2017-08-20] MEDS: Senna/Docusate Sodium 1 Tablet 2 TABLET PO ×2 (04:46→17:49)
[2017-08-20] MEDS: LINAGLIPTIN 5 MG TABLET PO (04:47)
[2017-08-20] MEDS: Lisinopril 2.5 MG Tablet PO (04:47)
[2017-08-20] MEDS: Levothyroxine 100 MCG Tablet 200 MCG PO (04:47)
[2017-08-20] MEDS: Clopidogrel Bisulfate 75 MG Tablet PO (04:47)
[2017-08-20] MEDS: metroNIDAZOLE 500 MG Tablet PO ×3 (04:47→20:37)
[2017-08-20] MEDS: Metolazone 2.5 MG Tablet 5 MG PO ×2 (04:48→14:01)
[2017-08-20] MEDS: Pantoprazole Sodium 20 MG Tablet PO (04:48)
[2017-08-20] MEDS: Polyethylene Glycol 3350 17 GM PACKET PO (04:49)
[2017-08-20] MEDS: Fluticasone 0.05% 1 SPRAY NASAL.SRY 2 SPRAY NASAL (04:49)
[2017-08-20] MEDS: Furosemide 100 MG/10 ML Vial 80 MG IV ×2 (06:14→14:44)
[2017-08-20] MEDS: 0.9% NaCl Peripheral Flush Adult/Peds IV (06:20)
[2017-08-20 06:40] LABS: Bedside Glucose 223 mg/dL (70-110)
[2017-08-20 07:20] LABS: Anion Gap 8 (5-15); BUN 28 mg/dL (7-18); BUN/Creat Ratio 21.4 RATIO (10-20); Calcium,Total 8.4 mg/dL (8.5-10.1); Chloride 97 mmol/L (98-107); Creatinine, Serum 1.31 mg/dL (0.70-1.30); EST Glomerular Filtration Rate 58 mL/min (>60); Est Glom Filt Rate - Afr Amer 71 mL/min (>60); Estimated Creatinine Clearance 59.88 ml/min; Glucose 220 mg/dL (74-106); Potassium 3.7 mmol/L (3.5-5.1); Sodium Level 139 mmol/L (136-145)
[2017-08-20] MEDS: Glucerna Shake 120 ML LIQUID PO ×3 (08:27→17:47)
[2017-08-20] MEDS: Aspirin 81 MG TAB.CHEW PO (08:32)
[2017-08-20] MEDS: Iron Polysaccharide Complex 150 MG CAPSULE PO (09:24)
[2017-08-20] MEDS: 0.9% NaCl PICC Flush IV ×2 (09:30→14:44)
--- NOTE | 2017-08-20 11:06 | NURSING ---
Dr Batres reviewed labs, NNO.
[2017-08-20 11:41] LABS: Bedside Glucose 240 mg/dL (70-110)
--- NOTE | 2017-08-20 14:26 | NURSING ---
wound photo: left foot
--- NOTE | 2017-08-20 14:27 | NURSING ---
wound photo: right foot
--- NOTE | 2017-08-20 14:27 | NURSING ---
wound photo: right foot (dorsal view)
[2017-08-20 15:33] VITALS: BP 129/59; PULSE 72; RESP 18; TEMP 36.4; O2SAT 94
[2017-08-20 16:50] LABS: Bedside Glucose 185 mg/dL (70-110)
[2017-08-20 17:49] VITALS: BP 129/59; PULSE 72
[2017-08-20] MEDS: Atorvastatin Calcium 80 MG Tablet PO (20:39)
[2017-08-20 21:11] LABS: Bedside Glucose 226 mg/dL (70-110)
[2017-08-21] MEDS: Fluticasone 0.05% 1 SPRAY NASAL.SRY 2 SPRAY NASAL (04:42)
[2017-08-21 04:43] VITALS: BP 128/74; PULSE 75
[2017-08-21] MEDS: metroNIDAZOLE 500 MG Tablet PO ×3 (04:43→21:26)
[2017-08-21] MEDS: Metoprolol Tartrate 100 MG Tablet PO ×2 (04:43→18:03)
[2017-08-21] MEDS: Clopidogrel Bisulfate 75 MG Tablet PO (04:44)
[2017-08-21] MEDS: Polyethylene Glycol 3350 17 GM PACKET PO (04:44)
[2017-08-21] MEDS: LINAGLIPTIN 5 MG TABLET PO (04:45)
[2017-08-21] MEDS: Pantoprazole Sodium 20 MG Tablet PO (04:45)
[2017-08-21] MEDS: Lisinopril 2.5 MG Tablet PO (04:45)
[2017-08-21] MEDS: Levothyroxine 100 MCG Tablet 200 MCG PO (04:46)
[2017-08-21] MEDS: Senna/Docusate Sodium 1 Tablet 2 TABLET PO ×2 (04:46→18:03)
[2017-08-21] MEDS: Metolazone 2.5 MG Tablet 5 MG PO ×2 (04:47→13:10)
[2017-08-21] MEDS: Enoxaparin 40 MG/0.4 ML Syringe SC (04:54)
[2017-08-21] MEDS: Furosemide 100 MG/10 ML Vial 80 MG IV ×2 (06:12→13:57)
[2017-08-21] MEDS: 0.9% NaCl Peripheral Flush Adult/Peds IV ×3 (06:13→13:57)
[2017-08-21 06:51] LABS: Bedside Glucose 243 mg/dL (70-110)
[2017-08-21] MEDS: 0.9% NaCl IVPB Med Flush (250 mL) 15 ML IV (08:12)
[2017-08-21] MEDS: Aspirin 81 MG TAB.CHEW PO (08:18)
[2017-08-21] MEDS: Iron Polysaccharide Complex 150 MG CAPSULE PO (08:18)
[2017-08-21] MEDS: Glucerna Shake 120 ML LIQUID PO ×3 (08:29→18:01)
[2017-08-21 11:15] LABS: Bedside Glucose 249 mg/dL (70-110)
[2017-08-21 15:38] VITALS: BP 136/62; PULSE 70; RESP 18; TEMP 36.6; O2SAT 96
[2017-08-21 17:06] LABS: Bedside Glucose 135 mg/dL (70-110)
[2017-08-21 18:03] VITALS: BP 136/62; PULSE 70
[2017-08-21 21:16] LABS: Bedside Glucose 134 mg/dL (70-110)
[2017-08-21] MEDS: Atorvastatin Calcium 80 MG Tablet PO (21:26)
[2017-08-21 21:30] VITALS: BP 137/54; PULSE 74; RESP 18; TEMP 36.4; O2SAT 95
[2017-08-22] MEDS: Fluticasone 0.05% 1 SPRAY NASAL.SRY 2 SPRAY NASAL (06:07)
[2017-08-22] MEDS: Levothyroxine 100 MCG Tablet 200 MCG PO (06:08)
[2017-08-22 06:09] VITALS: BP 130/67; PULSE 70
[2017-08-22] MEDS: Metoprolol Tartrate 100 MG Tablet PO ×2 (06:09→17:06)
[2017-08-22] MEDS: LINAGLIPTIN 5 MG TABLET PO (06:09)
[2017-08-22] MEDS: metroNIDAZOLE 500 MG Tablet PO ×3 (06:09→21:28)
[2017-08-22] MEDS: Metolazone 2.5 MG Tablet 5 MG PO ×2 (06:09→12:38)
[2017-08-22] MEDS: Clopidogrel Bisulfate 75 MG Tablet PO (06:09)
[2017-08-22] MEDS: Enoxaparin 40 MG/0.4 ML Syringe SC (06:10)
[2017-08-22] MEDS: Pantoprazole Sodium 20 MG Tablet PO (06:10)
[2017-08-22] MEDS: Senna/Docusate Sodium 1 Tablet 2 TABLET PO ×2 (06:10→17:05)
[2017-08-22] MEDS: Lisinopril 2.5 MG Tablet PO (06:10)
[2017-08-22] MEDS: Polyethylene Glycol 3350 17 GM PACKET PO (06:10)
[2017-08-22] MEDS: Furosemide 100 MG/10 ML Vial 80 MG IV ×2 (06:50→13:35)
[2017-08-22] MEDS: 0.9% NaCl Peripheral Flush Adult/Peds IV (07:00)
[2017-08-22 07:01] LABS: Bedside Glucose 358 mg/dL (70-110)
[2017-08-22] MEDS: 0.9% NaCl IVPB Med Flush (250 mL) 15 ML IV (07:03)
[2017-08-22] MEDS: Glucerna Shake 120 ML LIQUID PO ×3 (08:21→17:06)
[2017-08-22] MEDS: Iron Polysaccharide Complex 150 MG CAPSULE PO (08:21)
[2017-08-22] MEDS: Aspirin 81 MG TAB.CHEW PO (08:21)
[2017-08-22 10:00] VITALS: PULSE 67; RESP 18; O2SAT 93
[2017-08-22 11:41] LABS: Bedside Glucose 409 mg/dL (70-110)
--- NOTE | 2017-08-22 12:44 | PN.ID_ITS ---
Patient Problems: Active and Suspected Problems Sepsis (Acute) Osteomyelitis of foot (Acute) Subjective: Doing well, no fever, no n/v/d, no problems with picc. Edema improved a little. - Physical Exam General: Alert, Cooperative, No apparent distress Lungs: Clear to auscultation, Normal air movement Cardiovascular: Regular rate, Regular Rhythm Abdomen: Soft, Non Tender, Distended Extremities: Edema Skin: No rashes, Incision - bilat feet healing well Vital Signs Temp Pulse Resp BP Pulse Ox 97.6 F L 67 18 130/67 H 93 08/21/17 21:30 08/22/17 10:00 08/22/17 10:00 08/22/17 06:09 08/22/17 10:00 Oxygen Delivery Method Room Air Weight: 113.511 kg Body Mass Index (BMI) 34.6 Finger Stick Blood Glucose 164 Intake and Output for Last 24 Hours 08/20/17 08/21/17 08/22/17 23:59 23:59 23:59 Intake Total 1480 / 1480 1340 / 1340 240 / 240 Output Total 600 / 600 400 / 400 Balance 880 / 880 940 / 940 240 / 240 POC Glucose 08/22/17 08/22/17 08/21/17 11:35 06:55 21:05 POC Glucose 409 H 358 H 134 H 08/21/17 16:57 POC Glucose 135 H Route of nutrition/ use of supplements: [] Nutritional Intake: [] IV Site: [] Meng Catheter: [] - Assessment/Plan Antibiotics: [] Assessment/Plan: [] Active and Suspected Problems Sepsis (Acute) Osteomyelitis of foot (Acute) Bilat foot DM osteomyelitis with PVD - recent angioplasty. MRI shows R 5th metatarsal and toe osteo as well as osteo of L foot stump. Surg debridement/ resection done 07/31. Bilat bone cx with serratia and corynebacterium and one also with methicillin-resistant S. hominis. Cont vanc/ceftriaxone/flagyl. Plan is for 6 weeks of abx, stop date 09/11/17. Weekly bmp, cbc, vanc trough, and esr while on abx. ESR 08/01 was 53. Incisions appear to be healing well. Would need home iv antibiotics arranged if he is discharged. 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 Multiple neg cxs for MRSA since then. small amount of candiduria - only 1-10k of growth and UA with no inflammation. Stopped fluconazole. will follow.
[2017-08-22 15:31] VITALS: BP 128/56; PULSE 72; RESP 20; TEMP 36.4; O2SAT 96
[2017-08-22 16:30] LABS: Bedside Glucose 291 mg/dL (70-110)
[2017-08-22 17:06] VITALS: PULSE 72
[2017-08-22 21:05] LABS: Bedside Glucose 318 mg/dL (70-110)
[2017-08-22] MEDS: Atorvastatin Calcium 80 MG Tablet PO (21:28)
[2017-08-23] MEDS: Fluticasone 0.05% 1 SPRAY NASAL.SRY 2 SPRAY NASAL (05:14)
[2017-08-23] MEDS: Levothyroxine 100 MCG Tablet 200 MCG PO (05:15)
[2017-08-23] MEDS: Clopidogrel Bisulfate 75 MG Tablet PO (05:15)
[2017-08-23 05:16] VITALS: BP 125/80; PULSE 85
[2017-08-23] MEDS: metroNIDAZOLE 500 MG Tablet PO ×3 (05:16→22:42)
[2017-08-23] MEDS: Metoprolol Tartrate 100 MG Tablet PO ×2 (05:16→17:50)
[2017-08-23] MEDS: Metolazone 2.5 MG Tablet 5 MG PO ×2 (05:16→13:14)
[2017-08-23] MEDS: Pantoprazole Sodium 20 MG Tablet PO (05:16)
[2017-08-23] MEDS: Enoxaparin 40 MG/0.4 ML Syringe SC (05:17)
[2017-08-23] MEDS: Polyethylene Glycol 3350 17 GM PACKET PO (05:17)
[2017-08-23] MEDS: Senna/Docusate Sodium 1 Tablet 2 TABLET PO ×2 (05:25→17:50)
[2017-08-23] MEDS: Lisinopril 2.5 MG Tablet PO (05:26)
[2017-08-23] MEDS: LINAGLIPTIN 5 MG TABLET PO (05:26)
[2017-08-23] MEDS: Furosemide 100 MG/10 ML Vial 80 MG IV ×2 (05:57→13:32)
[2017-08-23] MEDS: 0.9% NaCl Peripheral Flush Adult/Peds IV (05:58)
[2017-08-23 06:41] LABS: Bedside Glucose 376 mg/dL (70-110)
[2017-08-23] MEDS: Iron Polysaccharide Complex 150 MG CAPSULE PO (08:26)
[2017-08-23] MEDS: Aspirin 81 MG TAB.CHEW PO (08:26)
[2017-08-23] MEDS: Glucerna Shake 120 ML LIQUID PO ×2 (08:26→17:49)
[2017-08-23 09:07] LABS: Vancomycin, Trough Level 18.1 ug/mL (5.0-15.0)
[2017-08-23] MEDS: 0.9% NaCl PICC Flush IV ×2 (09:34→13:33)
[2017-08-23] MEDS: 0.9% NaCl IVPB Med Flush (250 mL) 15 ML IV (09:34)
--- NOTE | 2017-08-23 09:38 | PCM.PROGNOTE ---
Patient Problems: Active and Suspected Problems Sepsis (Acute) Osteomyelitis of foot (Acute) Subjective: This 67 year old male patient was seen bedside s/p right fifth ray resection and left foot debridement of first metatarsal bone secondary to chronic ulcer. He denies foot injuries, fever, chills, nausea, vomiting. - Physical Exam General: Alert, Oriented x3, Cooperative Extremities: No cyanosis, Capillary Refill Less than 3 Seconds, No Calf Tenderness, Diminished Peripheral Pulses Skin: Incision - well aligned and copated without gapping to right foot with suture removal. The skin is partially coapted on the left lower extremity sutures in place. The right foot at the apex of the closure site has an eschar that is well adhered. There is no erythema, odor, streaking or purulence noted bilateral. The skin is atrophic and without hair bilateral Musculoskeletal: No Tenderness to Palpation of Joints or Extremities, - - s/p fifth ray resection right. s/p left transmetatarsal amputation. no pain with surgical site manipulation bilateral Neurological: - - lack of epicritic sensation noted bilateral foot Psych/Mental Status: Normal Affect, Appropriate Vital Signs Temp Pulse Resp BP Pulse Ox 97.5 F L 85 20 H 125/80 H 96 08/22/17 15:31 08/23/17 05:16 08/22/17 15:31 08/23/17 05:16 08/22/17 15:31 Oxygen Delivery Method Room Air Weight: 113.511 kg Body Mass Index (BMI) 34.6 Finger Stick Blood Glucose 164 Intake and Output for Last 24 Hours 08/21/17 08/22/17 08/23/17 23:59 23:59 23:59 Intake Total 1340 / 1340 1140 / 1140 Output Total 400 / 400 Balance 940 / 940 1140 / 1140 Laboratory Tests Past 24 Hrs 08/23/17 07:34 Vancomycin Trough 18.1 H POC Glucose 08/23/17 08/22/17 08/22/17 06:37 21:01 16:25 POC Glucose 376 H 318 H 291 H 08/22/17 11:35 POC Glucose 409 H Assessment/Plan Active and Suspected Problems Sepsis (Acute) Osteomyelitis of foot (Acute) osteomyelitis bilateral feet s/p surgical intervention on 07/31/17 multiple comorbidities. Bilateral feet examined, sites healing well. Continue with dressing changes. Sutures were removed from right foot today. Today Betadine solution and adaptic was applied to the incision sites with overlying 4x4 gauze, abd, kerlix, and CIERA bandages applied below knee. To continue. Dressing changes by nursing is appreciated. Patient also being followed by Infectious Disease, and is currently completing course of antibiotic therapy for osteomyelitis. Chronic lower extremity PAD, per vascular surgery. Medical management per Dr. Batres/medicine team is appreciated. Podiatry will continue to follow weekly while in house. To heel weight bear bilateral lower extremity. Please contact with any questions or concerns. Margaret Thomas DPM [facility] [phone]
--- NOTE | 2017-08-23 09:40 | PCM.RX.CS ---
Consult Pharmacy has been consulted to manage selected antiobiotic: Vancomycin Type of Consult: Follow-up Suspected Infection: Osteomyelitis Prior Doses of Antibiotics Received/Current Regimen: Medications Vancomycin HCl 1,750 mg/ (Sodium Chloride) 535 mls @ 260 mls/hr IV Q24H IGNACIO Stop: 09/11/17 23:59 Last Admin: 08/23/17 09:32 Dose: 260 mls/hr Labs: Sodium 139 mmol/L (136-145) 08/20/17 06:55 Potassium 3.7 mmol/L (3.5-5.1) 08/20/17 06:55 Chloride 97 mmol/L (98-107) L 08/20/17 06:55 Carbon Dioxide 34.0 mmol/L (21.0-32.0) H 08/20/17 06:55 Anion Gap 8 (5-15) 08/20/17 06:55 BUN 28 mg/dL (7-18) H 08/20/17 06:55 Creatinine 1.31 mg/dL (0.70-1.30) H 08/20/17 06:55 Est GFR (MDRD) Af Amer 71 mL/min (>60) 08/20/17 06:55 Est GFR (MDRD) Non-Af 58 mL/min (>60) L 08/20/17 06:55 BUN/Creatinine Ratio 21.4 RATIO (10-20) H 08/20/17 06:55 Glucose 220 mg/dL (74-106) H 08/20/17 06:55 Vancomycin Trough 18.1 ug/mL (5.0-15.0) H 08/23/17 07:34 Microbiology: Microbiology 08/10/17 16:40 Blood Culture (Wb) - Line Draw Blood Culture - Final No growth in 5 days. 08/10/17 17:00 Blood Culture (Wb) - Anticubital Left Blood Culture - Final No growth in 5 days. 08/10/17 18:12 Urine, Clean Catch Urine Culture - Final Presumptive C albicans 08/10/17 17:10 Mucosa - Nasopharyngeal Respiratory Panel (PCR) - Final Weight used for dosin.5 kg Estimated Creatinine Clearance: 60 mL/min Goal Trough: 15-20 mcg/mL Pharmacy Plan for Drug Dosing: Vancomycin trough within goal range. Continue as ordered, re-check again in 1 week. Pharmacy Service will continue to monitor and adjust dosing as required. Follow-Up Labs: Trough Vancomycin Labs to be done on [date and time ordered]: 08/30 @ 0800
[2017-08-23] MEDS: Hydrocortisone 2.5% Crm 1 APPLIC TOPICAL ×2 (11:17→17:52)
[2017-08-23 11:21] LABS: Bedside Glucose 490 mg/dL (70-110)
[2017-08-23 13:05] LABS: Bedside Glucose 449 mg/dL (70-110)
[2017-08-23 13:52] VITALS: PULSE 78
--- NOTE | 2017-08-23 14:50 | NURSING ---
Dr Thomas had been in earlier this am to assess feet. Pt states that some of the sutures had been removed. Did not remove dressings at this time time since they were already changed today. will assess again in the am. pt denies needs at this time. pt is currently sitting up in the chair with legs elevated.
[2017-08-23 15:55] VITALS: BP 126/63; PULSE 67; RESP 18; TEMP 36.4; O2SAT 97
[2017-08-23 16:30] LABS: Bedside Glucose 261 mg/dL (70-110)
[2017-08-23 17:50] VITALS: PULSE 67
--- NOTE | 2017-08-23 18:23 | NURSING ---
Pt noted to have red raised rash between shoulder blades on his back and across lower back. Hydrocortisone cream applied per Dr. Garduno. Soraya HALL aware
[2017-08-23 21:01] LABS: Bedside Glucose 238 mg/dL (70-110)
[2017-08-23] MEDS: Atorvastatin Calcium 80 MG Tablet PO (22:42)
[2017-08-24] MEDS: Hydrocortisone 2.5% Crm 1 APPLIC TOPICAL ×3 (04:03→20:37)
[2017-08-24 04:05] VITALS: BP 128/60; PULSE 73
[2017-08-24] MEDS: Metoprolol Tartrate 100 MG Tablet PO ×2 (04:05→17:53)
[2017-08-24] MEDS: Senna/Docusate Sodium 1 Tablet 2 TABLET PO ×2 (04:05→17:53)
[2017-08-24] MEDS: Lisinopril 2.5 MG Tablet PO (04:05)
[2017-08-24] MEDS: Enoxaparin 40 MG/0.4 ML Syringe SC (04:05)
[2017-08-24] MEDS: Pantoprazole Sodium 20 MG Tablet PO (04:05)
[2017-08-24] MEDS: LINAGLIPTIN 5 MG TABLET PO (04:05)
[2017-08-24] MEDS: Clopidogrel Bisulfate 75 MG Tablet PO (04:05)
[2017-08-24] MEDS: Fluticasone 0.05% 1 SPRAY NASAL.SRY 2 SPRAY NASAL (04:05)
[2017-08-24] MEDS: Levothyroxine 100 MCG Tablet 200 MCG PO (04:05)
[2017-08-24] MEDS: Polyethylene Glycol 3350 17 GM PACKET PO (04:05)
[2017-08-24] MEDS: Metolazone 2.5 MG Tablet 5 MG PO ×2 (04:06→13:36)
[2017-08-24] MEDS: metroNIDAZOLE 500 MG Tablet PO ×3 (04:06→20:38)
[2017-08-24] MEDS: Furosemide 100 MG/10 ML Vial 80 MG IV ×2 (04:50→14:06)
[2017-08-24] MEDS: 0.9% NaCl PICC Flush IV ×3 (04:52→14:06)
[2017-08-24 06:16] LABS: Bedside Glucose 218 mg/dL (70-110)
[2017-08-24] MEDS: Aspirin 81 MG TAB.CHEW PO (07:56)
[2017-08-24] MEDS: Iron Polysaccharide Complex 150 MG CAPSULE PO (07:56)
[2017-08-24] MEDS: Glucerna Shake 120 ML LIQUID PO ×2 (07:59→17:53)
[2017-08-24 11:45] LABS: Bedside Glucose 161 mg/dL (70-110)
--- NOTE | 2017-08-24 15:45 | CASEMGMT ---
Brief interview for mental status (BIMS) and resident mood interview (PHQ-9) completed on this day. BIMS score 15. PHQ-9 score 10/05
[2017-08-24 15:48] VITALS: BP 129/55; PULSE 75; RESP 18; TEMP 36.4; O2SAT 95
[2017-08-24 17:10] LABS: Bedside Glucose 120 mg/dL (70-110)
[2017-08-24 17:53] VITALS: PULSE 75
[2017-08-24] MEDS: HYDROcodone Bitartrate/Apap 5/325 Tablet PO (20:37)
[2017-08-24] MEDS: Atorvastatin Calcium 80 MG Tablet PO (20:38)
[2017-08-24 20:42] VITALS: PULSE 74; RESP 18; O2SAT 95
[2017-08-24 20:51] LABS: Bedside Glucose 299 mg/dL (70-110)
[2017-08-25] MEDS: Metolazone 2.5 MG Tablet 5 MG PO ×2 (04:48→13:00)
[2017-08-25] MEDS: HYDROcodone Bitartrate/Apap 5/325 Tablet PO (04:51)
[2017-08-25] MEDS: Furosemide 100 MG/10 ML Vial 80 MG IV ×2 (05:27→13:42)
[2017-08-25] MEDS: 0.9% NaCl Peripheral Flush Adult/Peds IV ×4 (05:30→13:42)
[2017-08-25 06:07] LABS: Absolute Lymphocyte Count 0.78 X10^3/ul (0.83-4.51); Absolute Neutrophil Count 5.3 X10^3/uL (2.0-7.7); Basophil# 0.05 X10^3/uL; Basophil% 0.6 % (0-1); Eosinophil# 0.97 X10^3/uL; Eosinophils% 12.3 % (0-5); Hematocrit 38.5 % (40-54); Hemoglobin 12.3 g/dl (13.0-16.5); Lymphocyte # 0.78 X10^3/ul (4.0); Lymphocyte % 9.9 % (19-41); Mean Corp Hgb Conc 31.9 g/gl (32-36); Mean Corpuscular Hgb 29.1 pg (27.0-32.0); Mean Corpuscular Volume 91.2 fL (80-94); Mean Platelet Vol. 10.2 fl (6.2-12.0); Monocyte# 0.79 X10^3/uL; Neutrophil # 5.28 X10^3/uL (2.7-7.7); Neutrophil % 66.9 % (47-70); Platelet Count 278 K/mm3 (150-450); RBC Distribution Width CV 15.1 % (11.6-14.6); RBC Distribution Width SD 50.2 fl (35.1-43.9); Red Blood Count 4.22 M/mm3 (4.6-6.2); White Blood Count 7.9 K/mm3 (4.4-11.0)
[2017-08-25] MEDS: Fluticasone 0.05% 1 SPRAY NASAL.SRY 2 SPRAY NASAL (06:11)
[2017-08-25] MEDS: metroNIDAZOLE 500 MG Tablet PO ×3 (06:11→22:36)
[2017-08-25 06:12] VITALS: PULSE 76
[2017-08-25] MEDS: Enoxaparin 40 MG/0.4 ML Syringe SC (06:12)
[2017-08-25] MEDS: Clopidogrel Bisulfate 75 MG Tablet PO (06:12)
[2017-08-25] MEDS: Metoprolol Tartrate 100 MG Tablet PO ×2 (06:12→17:55)
[2017-08-25] MEDS: Senna/Docusate Sodium 1 Tablet 2 TABLET PO ×2 (06:13→17:55)
[2017-08-25] MEDS: Levothyroxine 100 MCG Tablet 200 MCG PO (06:13)
[2017-08-25] MEDS: Pantoprazole Sodium 20 MG Tablet PO (06:13)
[2017-08-25] MEDS: LINAGLIPTIN 5 MG TABLET PO (06:14)
[2017-08-25] MEDS: Lisinopril 2.5 MG Tablet PO (06:14)
[2017-08-25 06:20] LABS: Anion Gap 6 (5-15); BUN 26 mg/dL (7-18); BUN/Creat Ratio 20.5 RATIO (10-20); Calcium,Total 8.4 mg/dL (8.5-10.1); Chloride 94 mmol/L (98-107); Creatinine, Serum 1.27 mg/dL (0.70-1.30); EST Glomerular Filtration Rate 60 mL/min (>60); Est Glom Filt Rate - Afr Amer 73 mL/min (>60); Estimated Creatinine Clearance 61.76 ml/min; Glucose 385 mg/dL (74-106); Potassium 3.7 mmol/L (3.5-5.1); Sodium Level 134 mmol/L (136-145)
[2017-08-25 06:25] LABS: POSITIVE COUNT NO; POSITIVE DIFFERENTIAL NO; POSITIVE MORPHOLOGY NO
[2017-08-25 06:45] LABS: Bedside Glucose 344 mg/dL (70-110)
[2017-08-25] MEDS: Glucerna Shake 120 ML LIQUID PO ×3 (07:08→17:53)
[2017-08-25] MEDS: 0.9% NaCl IVPB Med Flush (250 mL) 15 ML IV ×2 (07:13→09:48)
[2017-08-25] MEDS: Aspirin 81 MG TAB.CHEW PO (08:19)
[2017-08-25] MEDS: Iron Polysaccharide Complex 150 MG CAPSULE PO (08:19)
[2017-08-25 10:00] VITALS: PULSE 72; RESP 18; O2SAT 93
[2017-08-25] MEDS: Hydrocortisone 2.5% Crm 1 APPLIC TOPICAL ×2 (10:23→22:39)
[2017-08-25 11:40] LABS: Bedside Glucose 470 mg/dL (70-110)
--- NOTE | 2017-08-25 11:59 | NURSING ---
Addendum entered by Eleni Patiño 08/25/17 14:09: Dr. Medardo welsh, N.N.O. Original Note: PT BLOOD SURGER 470. INSULIN GIVEN,REPORTED TO ISABEL LAWSON
[2017-08-25 13:11] LABS: Bedside Glucose 398 mg/dL (70-110)
[2017-08-25 15:57] VITALS: BP 113/54; PULSE 73; RESP 18; TEMP 36.4; O2SAT 93
[2017-08-25 17:11] LABS: Bedside Glucose 356 mg/dL (70-110)
[2017-08-25 17:55] VITALS: BP 113/54; PULSE 73
[2017-08-25 21:30] LABS: Bedside Glucose 341 mg/dL (70-110)
[2017-08-25] MEDS: Atorvastatin Calcium 80 MG Tablet PO (22:36)
[2017-08-26] MEDS: Metolazone 2.5 MG Tablet 5 MG PO ×2 (04:34→13:13)
[2017-08-26] MEDS: Lisinopril 2.5 MG Tablet PO (06:21)
[2017-08-26] MEDS: Levothyroxine 100 MCG Tablet 200 MCG PO (06:21)
[2017-08-26] MEDS: Fluticasone 0.05% 1 SPRAY NASAL.SRY 2 SPRAY NASAL (06:21)
[2017-08-26] MEDS: Pantoprazole Sodium 20 MG Tablet PO (06:21)
[2017-08-26] MEDS: Clopidogrel Bisulfate 75 MG Tablet PO (06:21)
[2017-08-26] MEDS: LINAGLIPTIN 5 MG TABLET PO (06:21)
[2017-08-26] MEDS: Enoxaparin 40 MG/0.4 ML Syringe SC (06:22)
[2017-08-26] MEDS: Senna/Docusate Sodium 1 Tablet 2 TABLET PO ×2 (06:22→16:59)
[2017-08-26] MEDS: Polyethylene Glycol 3350 17 GM PACKET PO (06:28)
[2017-08-26] MEDS: Furosemide 100 MG/10 ML Vial 80 MG IV ×2 (06:29→14:30)
[2017-08-26] MEDS: metroNIDAZOLE 500 MG Tablet PO ×3 (06:34→21:42)
[2017-08-26 06:36] VITALS: BP 132/56; PULSE 76
[2017-08-26] MEDS: Metoprolol Tartrate 100 MG Tablet PO ×2 (06:36→17:00)
[2017-08-26 07:06] LABS: Bedside Glucose 283 mg/dL (70-110)
[2017-08-26] MEDS: Glucerna Shake 120 ML LIQUID PO ×3 (08:08→16:58)
[2017-08-26] MEDS: Iron Polysaccharide Complex 150 MG CAPSULE PO (08:11)
[2017-08-26] MEDS: Aspirin 81 MG TAB.CHEW PO (08:11)
[2017-08-26] MEDS: 0.9% NaCl PICC Flush IV (09:32)
[2017-08-26 11:35] LABS: Bedside Glucose 352 mg/dL (70-110)
[2017-08-26 14:00] VITALS: PULSE 65; RESP 18; O2SAT 96
[2017-08-26] MEDS: 0.9% NaCl Peripheral Flush Adult/Peds IV (14:30)
[2017-08-26 16:00] VITALS: BP 119/53; PULSE 70; RESP 18; TEMP 36.6; O2SAT 95
[2017-08-26 16:50] LABS: Bedside Glucose 74 mg/dL (70-110)
[2017-08-26] MEDS: Clobetasol Propionate 0.05% Cream 1 APPLIC TOPICAL (16:59)
[2017-08-26 17:00] VITALS: BP 119/53; PULSE 70
[2017-08-26 18:40] LABS: Bedside Glucose 121 mg/dL (70-110)
--- NOTE | 2017-08-26 18:50 | NURSING ---
Dr. Batres updated on resident's blood sugars this evening, N.O. received, pt updated.
[2017-08-26] MEDS: Ondansetron ODT 4 MG Tablet PO (19:08)
[2017-08-26 21:16] LABS: Bedside Glucose 212 mg/dL (70-110)
[2017-08-26] MEDS: Atorvastatin Calcium 80 MG Tablet PO (21:42)
[2017-08-27] MEDS: Senna/Docusate Sodium 1 Tablet 2 TABLET PO ×2 (04:46→17:27)
[2017-08-27] MEDS: Levothyroxine 100 MCG Tablet 200 MCG PO (04:46)
[2017-08-27] MEDS: Metolazone 2.5 MG Tablet 5 MG PO ×2 (04:46→12:46)
[2017-08-27 04:47] VITALS: BP 123/60; PULSE 84
[2017-08-27] MEDS: Pantoprazole Sodium 20 MG Tablet PO (04:47)
[2017-08-27] MEDS: Lisinopril 2.5 MG Tablet PO (04:47)
[2017-08-27] MEDS: Clopidogrel Bisulfate 75 MG Tablet PO (04:47)
[2017-08-27] MEDS: Metoprolol Tartrate 100 MG Tablet PO ×2 (04:47→17:27)
[2017-08-27] MEDS: Clobetasol Propionate 0.05% Cream 1 APPLIC TOPICAL ×2 (04:48→10:46)
[2017-08-27] MEDS: LINAGLIPTIN 5 MG TABLET PO (04:48)
[2017-08-27] MEDS: Fluticasone 0.05% 1 SPRAY NASAL.SRY 2 SPRAY NASAL (04:49)
[2017-08-27] MEDS: Polyethylene Glycol 3350 17 GM PACKET PO (04:53)
[2017-08-27] MEDS: metroNIDAZOLE 500 MG Tablet PO ×3 (05:00→21:28)
[2017-08-27] MEDS: Enoxaparin 40 MG/0.4 ML Syringe SC (05:00)
[2017-08-27 06:51] LABS: Bedside Glucose 414 mg/dL (70-110)
[2017-08-27] MEDS: Furosemide 100 MG/10 ML Vial 80 MG IV ×2 (07:37→14:13)
[2017-08-27] MEDS: Aspirin 81 MG TAB.CHEW PO (08:20)
[2017-08-27] MEDS: Iron Polysaccharide Complex 150 MG CAPSULE PO (08:20)
[2017-08-27] MEDS: Glucerna Shake 120 ML LIQUID PO (08:29)
[2017-08-27 10:00] VITALS: PULSE 78; RESP 18; O2SAT 94
--- NOTE | 2017-08-27 10:19 | NURSING ---
wound photo: left foot
--- NOTE | 2017-08-27 10:20 | NURSING ---
wound photo: right foot
[2017-08-27] MEDS: 0.9% NaCl Peripheral Flush Adult/Peds IV (10:25)
[2017-08-27 11:36] LABS: Bedside Glucose 498 mg/dL (70-110)
--- NOTE | 2017-08-27 13:58 | CASEMGMT ---
Insurance Clinical information faxed. Pending continued stay approval at this time. Auth#[id number] Nohemi SYED, MEDICAL OFFICE SUPERVISOR
[2017-08-27] MEDS: 0.9% NaCl PICC Flush IV (14:13)
[2017-08-27 16:00] VITALS: BP 149/64; PULSE 72; RESP 16; TEMP 36.3; O2SAT 94
[2017-08-27 17:00] LABS: Bedside Glucose 403 mg/dL (70-110)
[2017-08-27 17:27] VITALS: PULSE 66
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
[2017-08-27 21:11] LABS: Bedside Glucose 157 mg/dL (70-110)
[2017-08-27] MEDS: Atorvastatin Calcium 80 MG Tablet PO (21:28)
--- NOTE | 2017-08-27 22:00 | NURSING ---
Addendum entered by Debbie Negro 08/28/17 01:32: GLUCOSE RECHECKED AT 0116 CURRENT READING WAS 234. WILL CONT TO MONITOR. SAME REPORTED TO BOTH ISABEL AGUILAR. AND RADHA RN. Original Note: PATIENT HAS HS BLOOD SUGAR OF 157. REQUESTED 3 PACKAGES OF ZULEMA CRACKERS AND 2 OF PEANUT BUTTER TO PREVENT BOTTOMING OUT. GIVEN SAME. NOTIFIED BOTH ISABEL AGUILAR AND RADHA RN. WILL CONT TO MONITOR AND CHECK GLUCOSE LEVEL PRN JOVANNA.
[2017-08-28 01:21] LABS: Bedside Glucose 234 mg/dL (70-110)
[2017-08-28] MEDS: Polyethylene Glycol 3350 17 GM PACKET PO (05:04)
[2017-08-28] MEDS: Enoxaparin 40 MG/0.4 ML Syringe SC (05:04)
[2017-08-28 05:05] VITALS: BP 135/60; PULSE 74
[2017-08-28] MEDS: Levothyroxine 100 MCG Tablet 200 MCG PO (05:05)
[2017-08-28] MEDS: metroNIDAZOLE 500 MG Tablet PO ×3 (05:05→21:06)
[2017-08-28] MEDS: Senna/Docusate Sodium 1 Tablet 2 TABLET PO ×2 (05:05→18:08)
[2017-08-28] MEDS: Pantoprazole Sodium 20 MG Tablet PO (05:05)
[2017-08-28] MEDS: Metoprolol Tartrate 100 MG Tablet PO ×2 (05:05→18:08)
[2017-08-28] MEDS: Lisinopril 2.5 MG Tablet PO (05:05)
[2017-08-28] MEDS: Clopidogrel Bisulfate 75 MG Tablet PO (05:06)
[2017-08-28] MEDS: LINAGLIPTIN 5 MG TABLET PO (05:06)
[2017-08-28] MEDS: Metolazone 2.5 MG Tablet 5 MG PO ×2 (05:06→13:06)
[2017-08-28] MEDS: Clobetasol Propionate 0.05% Cream 1 APPLIC TOPICAL ×3 (05:09→21:45)
[2017-08-28 06:30] VITALS: RESP 16; O2SAT 96
[2017-08-28] MEDS: Furosemide 100 MG/10 ML Vial 80 MG IV ×2 (06:49→14:11)
[2017-08-28] MEDS: Fluticasone 0.05% 1 SPRAY NASAL.SRY 2 SPRAY NASAL (06:50)
[2017-08-28] MEDS: 0.9% NaCl PICC Flush IV ×2 (06:50→08:29)
[2017-08-28 07:01] LABS: Bedside Glucose 166 mg/dL (70-110)
[2017-08-28] MEDS: Glucerna Shake 120 ML LIQUID PO ×3 (07:53→18:05)
[2017-08-28] MEDS: Aspirin 81 MG TAB.CHEW PO (07:54)
[2017-08-28] MEDS: Iron Polysaccharide Complex 150 MG CAPSULE PO (07:54)
[2017-08-28] MEDS: 0.9% NaCl IVPB Med Flush (250 mL) 15 ML IV (08:29)
[2017-08-28 09:36] LABS: Bedside Glucose 308 mg/dL (70-110)
[2017-08-28 11:21] LABS: Bedside Glucose 262 mg/dL (70-110)
[2017-08-28 13:06] LABS: Bedside Glucose 264 mg/dL (70-110)
--- NOTE | 2017-08-28 15:45 | CASEMGMT ---
Insurance Continued stay approved with next update due on 09/03/17. Auth#[id number] Nohemi SYED, SERVICE LOSS CONTROL CONSULTANT
[2017-08-28 16:23] VITALS: BP 116/51; PULSE 83; RESP 17; TEMP 36.4; O2SAT 93
[2017-08-28 17:01] LABS: Bedside Glucose 168 mg/dL (70-110)
[2017-08-28 18:08] VITALS: BP 116/51; PULSE 83
[2017-08-28 21:01] LABS: Bedside Glucose 203 mg/dL (70-110)
[2017-08-28] MEDS: Atorvastatin Calcium 80 MG Tablet PO (21:06)
[2017-08-29] MEDS: Fluticasone 0.05% 1 SPRAY NASAL.SRY 2 SPRAY NASAL (05:08)
[2017-08-29] MEDS: Clobetasol Propionate 0.05% Cream 1 APPLIC TOPICAL ×2 (05:08→17:34)
[2017-08-29] MEDS: Lisinopril 2.5 MG Tablet PO (05:09)
[2017-08-29] MEDS: Enoxaparin 40 MG/0.4 ML Syringe SC (05:09)
[2017-08-29 05:10] VITALS: BP 139/61; PULSE 70
[2017-08-29] MEDS: Senna/Docusate Sodium 1 Tablet 2 TABLET PO ×2 (05:10→17:33)
[2017-08-29] MEDS: Metoprolol Tartrate 100 MG Tablet PO ×2 (05:10→17:33)
[2017-08-29] MEDS: Polyethylene Glycol 3350 17 GM PACKET PO (05:10)
[2017-08-29] MEDS: Levothyroxine 100 MCG Tablet 200 MCG PO (05:10)
[2017-08-29] MEDS: Metolazone 2.5 MG Tablet 5 MG PO ×2 (05:10→12:57)
[2017-08-29] MEDS: LINAGLIPTIN 5 MG TABLET PO (05:10)
[2017-08-29] MEDS: metroNIDAZOLE 500 MG Tablet PO ×3 (05:10→19:52)
[2017-08-29] MEDS: Clopidogrel Bisulfate 75 MG Tablet PO (05:10)
[2017-08-29] MEDS: Pantoprazole Sodium 20 MG Tablet PO (05:10)
[2017-08-29] MEDS: Furosemide 100 MG/10 ML Vial 80 MG IV ×2 (05:46→13:54)
[2017-08-29] MEDS: 0.9% NaCl Peripheral Flush Adult/Peds IV ×3 (05:47→09:58)
[2017-08-29] MEDS: 0.9% NaCl IVPB Med Flush (250 mL) 15 ML IV (07:00)
[2017-08-29 07:21] LABS: Bedside Glucose 220 mg/dL (70-110)
[2017-08-29] MEDS: Aspirin 81 MG TAB.CHEW PO (08:20)
[2017-08-29] MEDS: Iron Polysaccharide Complex 150 MG CAPSULE PO (08:20)
[2017-08-29] MEDS: Glucerna Shake 120 ML LIQUID PO ×2 (08:20→11:24)
[2017-08-29 08:40] VITALS: PULSE 84; RESP 18; O2SAT 94
[2017-08-29 10:16] LABS: Bedside Glucose 207 mg/dL (70-110)
--- NOTE | 2017-08-29 10:48 | PN.ID_ITS ---
Patient Problems: Active and Suspected Problems Sepsis (Acute) Osteomyelitis of foot (Acute) Subjective: Feeling well, feet healing, edema much better, no fever. - Physical Exam General: Alert, Cooperative Lungs: Clear to auscultation, Normal air movement Cardiovascular: Regular rate, Regular Rhythm Abdomen: Soft, Non Tender, Non-Distended Extremities: Edema - improved Skin: Ulcer/ Wound - feet wrapped Vital Signs Temp Pulse Resp BP Pulse Ox 97.6 F L 84 18 139/61 H 94 08/28/17 16:23 08/29/17 08:40 08/29/17 08:40 08/29/17 05:10 08/29/17 08:40 Oxygen Delivery Method Room Air Weight: 109.65 kg Body Mass Index (BMI) 34.6 Finger Stick Blood Glucose 164 Intake and Output for Last 24 Hours 08/27/17 08/28/17 08/29/17 23:59 23:59 23:59 Intake Total 480 / 480 840 / 840 120 / 120 Output Total 400 / 400 Balance 480 / 480 440 / 440 120 / 120 POC Glucose 08/29/17 08/29/17 08/28/17 10:03 06:59 20:51 POC Glucose 207 H 220 H 203 H 08/28/17 08/28/17 08/28/17 16:48 13:00 11:11 POC Glucose 168 H 264 H 262 H Medical Necessity - Tobacco Use Smoking Status: Former smoker Tobacco Use: Non-smoker Route of nutrition/ use of supplements: [] Nutritional Intake: [] IV Site: [] Meng Catheter: [] - Assessment/Plan Antibiotics: [] Assessment/Plan: [] Active and Suspected Problems Sepsis (Acute) Osteomyelitis of foot (Acute) Bilat foot DM osteomyelitis with PVD - recent angioplasty. MRI shows R 5th metatarsal and toe osteo as well as osteo of L foot stump. Surg debridement/ resection done 07/31. Bilat bone cx with serratia and corynebacterium and one also with methicillin-resistant S. hominis. Cont vanc/ceftriaxone/flagyl. Plan is for 6 weeks of abx, stop date 09/11/17. Weekly bmp, cbc, vanc trough, and esr while on abx. ESR 08/01 was 53. Incisions appear to be healing well. Would need home iv antibiotics arranged if he is discharged. Showing continued improvement. 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 Multiple neg cxs for MRSA since then. will follow.
[2017-08-29 11:15] LABS: Bedside Glucose 249 mg/dL (70-110)
[2017-08-29] MEDS: 0.9% NaCl PICC Flush IV (13:54)
[2017-08-29 15:45] VITALS: BP 137/60; PULSE 72; RESP 17; TEMP 35.9; O2SAT 95
--- NOTE | 2017-08-29 16:21 | CHAPLAIN ---
spoke with patient who was exploring in hallway in his wheelchair; pt sees improvement in the last five days and wants to continue on path and stay out of the hospital in future; pt appears to be upbeat
[2017-08-29 17:10] LABS: Bedside Glucose 339 mg/dL (70-110)
[2017-08-29 17:33] VITALS: PULSE 72
[2017-08-29] MEDS: Atorvastatin Calcium 80 MG Tablet PO (19:52)
[2017-08-29] MEDS: HYDROcodone Bitartrate/Apap 5/325 Tablet PO (19:52)
[2017-08-29 20:26] LABS: Bedside Glucose 211 mg/dL (70-110)
[2017-08-30 00:45] LABS: Bedside Glucose 318 mg/dL (70-110)
[2017-08-30] MEDS: HYDROcodone Bitartrate/Apap 5/325 Tablet PO (04:18)
[2017-08-30] MEDS: Metolazone 2.5 MG Tablet 5 MG PO ×2 (04:18→12:39)
[2017-08-30] MEDS: Lisinopril 2.5 MG Tablet PO (05:20)
[2017-08-30] MEDS: Senna/Docusate Sodium 1 Tablet 2 TABLET PO ×2 (05:20→17:50)
[2017-08-30] MEDS: Clopidogrel Bisulfate 75 MG Tablet PO (05:20)
[2017-08-30] MEDS: LINAGLIPTIN 5 MG TABLET PO (05:20)
[2017-08-30 05:21] VITALS: BP 141/72; PULSE 81
[2017-08-30] MEDS: Enoxaparin 40 MG/0.4 ML Syringe SC (05:21)
[2017-08-30] MEDS: metroNIDAZOLE 500 MG Tablet PO ×3 (05:21→21:23)
[2017-08-30] MEDS: Levothyroxine 100 MCG Tablet 200 MCG PO (05:21)
[2017-08-30] MEDS: Metoprolol Tartrate 100 MG Tablet PO ×2 (05:21→17:50)
[2017-08-30] MEDS: Polyethylene Glycol 3350 17 GM PACKET PO (05:22)
[2017-08-30] MEDS: Fluticasone 0.05% 1 SPRAY NASAL.SRY 2 SPRAY NASAL (05:22)
[2017-08-30] MEDS: Clobetasol Propionate 0.05% Cream 1 APPLIC TOPICAL ×2 (05:23→21:26)
[2017-08-30] MEDS: 0.9% NaCl Peripheral Flush Adult/Peds IV ×2 (05:23→08:20)
[2017-08-30] MEDS: Pantoprazole Sodium 20 MG Tablet PO (05:23)
[2017-08-30] MEDS: Furosemide 100 MG/10 ML Vial 80 MG IV ×2 (05:23→13:35)
[2017-08-30 06:51] LABS: Bedside Glucose 285 mg/dL (70-110)
[2017-08-30] MEDS: Glucerna Shake 120 ML LIQUID PO ×3 (07:39→17:45)
[2017-08-30] MEDS: Iron Polysaccharide Complex 150 MG CAPSULE PO (07:41)
[2017-08-30] MEDS: Aspirin 81 MG TAB.CHEW PO (07:42)
[2017-08-30 10:00] VITALS: PULSE 74; RESP 18; O2SAT 96
[2017-08-30 10:01] LABS: Bedside Glucose 377 mg/dL (70-110)
--- NOTE | 2017-08-30 10:02 | NURSING ---
DRESSING DONE BY ISABEL DAVIS WOUND NURSE ON FIRST SHIFT. 08/30/17
--- NOTE | 2017-08-30 10:27 | PCM.RX.CS ---
Consult Pharmacy has been consulted to manage selected antiobiotic: Vancomycin Type of Consult: Follow-up Suspected Infection: Osteomyelitis Prior Doses of Antibiotics Received/Current Regimen: Medications Vancomycin HCl 1,750 mg/ (Sodium Chloride) 535 mls @ 260 mls/hr IV Q24H IGNACIO Stop: 08/30/17 12:00 Last Admin: 08/30/17 08:20 Dose: 260 mls/hr Labs: Sodium 134 mmol/L (136-145) L 08/25/17 05:20 Potassium 3.7 mmol/L (3.5-5.1) 08/25/17 05:20 Chloride 94 mmol/L (98-107) L 08/25/17 05:20 Carbon Dioxide 34.0 mmol/L (21.0-32.0) H 08/25/17 05:20 Anion Gap 6 (5-15) 08/25/17 05:20 BUN 26 mg/dL (7-18) H 08/25/17 05:20 Creatinine 1.27 mg/dL (0.70-1.30) 08/25/17 05:20 Est GFR (MDRD) Af Amer 73 mL/min (>60) 08/25/17 05:20 Est GFR (MDRD) Non-Af 60 mL/min (>60) 08/25/17 05:20 BUN/Creatinine Ratio 20.5 RATIO (10-20) H 08/25/17 05:20 Glucose 385 mg/dL (74-106) H 08/25/17 05:20 Vancomycin Trough 19.0 ug/mL (5.0-15.0) H 08/30/17 07:25 Microbiology: Microbiology 08/10/17 16:40 Blood Culture (Wb) - Line Draw Blood Culture - Final No growth in 5 days. 08/10/17 17:00 Blood Culture (Wb) - Anticubital Left Blood Culture - Final No growth in 5 days. 08/10/17 18:12 Urine, Clean Catch Urine Culture - Final Presumptive C albicans 08/10/17 17:10 Mucosa - Nasopharyngeal Respiratory Panel (PCR) - Final Weight used for dosin kg Estimated Creatinine Clearance: 62 mL/min Goal Trough: 15-20 mcg/mL Pharmacy Plan for Drug Dosing: Vancomycin trough within goal range but has been trending up. Recommend to reduce vancomycin to 1500mg IV q24h. Recheck in 1 week. If within range, no more check prior to 09/11/17 vancomycin stop date. Pharmacy Service will continue to monitor and adjust dosing as required. Follow-Up Labs: Trough Vancomycin - 09/06/17 @ 1000
--- NOTE | 2017-08-30 11:16 | PCM.PN.RX ---
<JessieNathaniel carrizales D - Last Filed: 08/30/17 11:16> Progress Note - Pharmacy Subjective: TCU Follow-up Objective: Allergies adhesive Allergy (Verified 02/13/17 14:38) SKIN GETS PULLED OFF SKIN GETS PULLED OFF latex Allergy (Verified 02/13/17 14:38) Hives Home Medications Medication Instructions Recorded Clopidogrel Bisulfate [Plavix] 75 mg PO DAILY 05/15/13 Levothyroxine [Synthroid] 200 mcg PO DAILY 05/15/13 Metoprolol Tartrate [Lopressor 100 mg PO BID 05/15/13 (beta adonis)] Atorvastatin Calcium [Lipitor] 80 mg PO QHS 01/12/16 Pantoprazole Sodium [Protonix] 20 mg PO DAILY 01/12/16 Aspirin [Aspirin, Baby] 81 mg PO DAILY@0800 02/25/16 Baclofen [Lioresal] 10 mg PO TID 02/25/16 Meclizine HCl [Antivert] 12.5 mg PO TID PRN PRN 07/12/16 Fluticasone 0.05% [Flonase Nasal 1 spray NASAL DAILY 01/11/17 Sarita] Furosemide [Lasix] 80 mg PO BID 02/13/17 Insulin Detemir [Levemir FlexPen] 40 units SC BID 02/13/17 Linacolotide [Linzess] 145 mcg PO DAILY 07/24/17 Dapagliflozin Propanediol [Farxiga] 10 mg PO DAILY 07/27/17 Insulin Aspart [Novolog Flexpen] 26 units SC TIDAC 07/27/17 Iron Polysaccharide Complex 150 mg PO DAILYCM 07/27/17 [Ferrex 150] Linagliptin [Tradjenta] 5 mg PO DAILY 07/27/17 Plecanatide [Trulance] 3 mg PO DAILY 07/27/17 Polyethylene Glycol 3350 1 pkt PO DAILY PRN 07/27/17 Lisinopril [Zestril] 2.5 tab PO DAILY 07/30/17 Ceftriaxone 2 gm IV Q24 08/03/17 Hydrocodone Bitart/Apap 5-325 1 - 2 tab PO Q6H PRN PRN #10 tab 08/03/17 [[place] 5/325] Metronidazole [Flagyl] 500 mg PO TID 08/03/17 Montelukast [Singulair] 10 mg PO DAILY 30 Days #0 08/03/17 Current Medications Generic Name Dose Route Start Last Admin Trade Name Freq PRN Reason Stop Dose Admin Hydrocodone Bitart/Acetaminophen 1 - 2 tablet 08/03/17 15:15 08/30/17 04:18 [place] 5mg-325mg PO 2 tablet Q6H PRN PRN Administration Moderate-severe pain Aspirin 81 mg 08/04/17 08:00 08/30/17 07:42 Aspirin, Baby PO 81 mg DAILY@0800 IGNACIO Administration Atorvastatin Calcium 80 mg 08/03/17 22:00 08/29/17 19:52 Lipitor PO 80 mg QHS IGNACIO Administration Bisacodyl 10 mg 08/03/17 15:23 Dulcolax PO DAILY PRN PRN Constipation Clobetasol Propionate 1 applic 08/26/17 18:00 08/30/17 05:23 Temovate Cream ([facility]) TOPICAL 1 applicatio BID IGNACIO Administration Protocol Clopidogrel Bisulfate 75 mg 08/04/17 06:00 08/30/17 05:20 Plavix PO 75 mg DAILY IGNACIO Administration Dextrose 0 gm 08/03/17 21:19 D50w Syringe IV X1 PRN Hypoglycemia Protocol Enoxaparin Sodium 40 mg 08/04/17 06:00 08/30/17 05:21 Lovenox SC 40 mg DAILY@0600 [facility] Administration Fluticasone Propionate 2 spray 08/10/17 06:00 08/30/17 05:22 Flonase Nasal Sarita NASAL 2 spray DAILY IGNACIO Administration Furosemide 80 mg 08/07/17 06:00 08/30/17 05:23 Lasix IV 80 mg BID@0600,1400 IGNACIO Administration Glucagon 1 mg 08/03/17 21:19 IM .X1 PRN Hypoglycemia Heparin Sodium (Beef Lung) 500 unit 08/03/17 16:17 Heparin 500 Unit/5 Ml (100/Ml) IV UD PRN HEPARIN FLUSH Ceftriaxone Sodium 2 gm/ 50 mls @ 100 mls/hr 08/04/17 10:00 08/30/17 10:52 Sodium Chloride IV 09/11/17 11:00 100 mls/hr Q24 IGNACIO Administration Sodium Chloride 250 mls @ 15 mls/hr 08/03/17 16:31 08/29/17 07:00 IV 15 mls/hr .[id number] PRN Administration SALINE FLUSH Vancomycin HCl 1,750 mg/ 535 mls @ 260 mls/hr 08/09/17 08:00 08/30/17 08:20 Sodium Chloride IV 08/30/17 12:00 260 mls/hr Q24H IGNACIO Administration Vancomycin HCl 1,500 mg/ 530 mls @ 260 mls/hr 08/31/17 10:00 Dextrose IV 09/11/17 12:03 Q24H IGNACIO Insulin Aspart 30 units 08/25/17 16:45 08/30/17 07:43 Novolog Flexpen ([facility]) SC 30 units TIDAC IGNACIO Administration Insulin Detemir 45 units 08/25/17 22:00 08/30/17 09:59 Levemir ([facility]) SC 45 units 1000,2200 IGNACIO Administration Levothyroxine Sodium 200 mcg 08/04/17 06:00 08/30/17 05:21 Synthroid PO 200 mcg DAILY IGNACIO Administration Linagliptin 5 mg 08/04/17 06:00 08/30/17 05:20 Tradjenta PO 5 mg DAILY IGNACIO Administration Lisinopril 2.5 mg 08/04/17 06:00 08/30/17 05:20 Zestril PO 2.5 mg DAILY IGNACIO Administration Metolazone 5 mg 08/16/17 05:30 08/30/17 04:18 Zaroxolyn PO 5 mg BID@0530,1330 IGNACIO Administration Metoprolol Tartrate 100 mg 08/03/17 18:00 08/30/17 05:21 Lopressor (Beta Adonis) PO 100 mg BID IGNACIO Administration Metronidazole 500 mg 08/03/17 22:00 08/30/17 05:21 Flagyl PO 09/11/17 23:59 500 mg TID IGNACIO Administration Nutritional Formula (Lactose Free) 120 ml 08/03/17 17:45 08/30/17 07:39 Glucerna Shake PO 120 ml TIDCM IGNACIO Administration Ondansetron HCl 4 mg 08/26/17 18:45 08/26/17 19:08 Zofran Odt PO 4 mg Q8H PRN PRN Administration NAUSEA/VOMITING Pantoprazole Sodium 20 mg 08/04/17 06:00 08/30/17 05:23 Protonix PO 20 mg DAILY IGNACIO Administration Polyethylene Glycol 17 gm 08/04/17 06:00 08/30/17 05:22 Miralax PO 17 gm DAILY IGNACIO Administration Polysaccharide Iron Complex 150 mg 08/04/17 08:00 08/30/17 07:41 Ferrex 150 PO 150 mg DAILYCM IGNACIO Administration Potassium Chloride 20 meq 08/19/17 08:00 08/30/17 07:41 K-Dur PO 20 meq DAILYCM IGNACIO Administration Senna/Docusate Sodium 2 tablet 08/03/17 18:00 08/30/17 05:20 Senokot-S, Maggy-Colace PO 2 tablet BID IGNACIO Administration Sodium Chloride 5 - 30 ml 08/03/17 16:17 08/30/17 08:20 IV 10 ml UD PRN Administration SALINE FLUSH Sodium Chloride 10 - 20 ml 08/03/17 16:17 08/29/17 13:54 IV 20 ml UD PRN Administration PICC FLUSH Problem List Sepsis (Acute) Osteomyelitis of foot (Acute) Diabetes mellitus (Chronic) Vital Signs Temp Pulse Resp BP Pulse Ox 96.7 F L 74 18 141/72 H 96 08/29/17 15:45 08/30/17 10:00 08/30/17 10:00 08/30/17 05:21 08/30/17 10:00 Oxygen Delivery Method Room Air Weight: 107.65 kg Body Mass Index (BMI) 34.6 Finger Stick Blood Glucose 164 Sodium 134 mmol/L (136-145) L 08/25/17 05:20 Potassium 3.7 mmol/L (3.5-5.1) 08/25/17 05:20 Chloride 94 mmol/L (98-107) L 08/25/17 05:20 Carbon Dioxide 34.0 mmol/L (21.0-32.0) H 08/25/17 05:20 Anion Gap 6 (5-15) 08/25/17 05:20 BUN 26 mg/dL (7-18) H 08/25/17 05:20 Creatinine 1.27 mg/dL (0.70-1.30) 08/25/17 05:20 Est GFR (MDRD) Af Amer 73 mL/min (>60) 08/25/17 05:20 Est GFR (MDRD) Non-Af 60 mL/min (>60) 08/25/17 05:20 BUN/Creatinine Ratio 20.5 RATIO (10-20) H 08/25/17 05:20 Glucose 385 mg/dL (74-106) H 08/25/17 05:20 Vancomycin Trough 19.0 ug/mL (5.0-15.0) H 08/30/17 07:25 Assessment/Plan: 1) Pain Hydrocodone/APAP as needed. Continue to monitor prn medication use, daily pain scores. 2) ID Vancomycin, ceftriaxone, metronidazole until 09/11 for osteomyelitis. WBC wnl, afebrile. Pharmacy monitoring and adjusting vancomycin. Continue to monitor renal function, vancomycin levels, s/s infection. 3) DM2 Linagliptin, insulin detemir twice daily, aspart 3x daily with meals. BGT has been running high, patient's sugars are very brittle, insulin being titrated. Continue to monitor BGT, s/s hyper/hypoglycemia. 4) CAD/CHF Lisinopril, metoprolol, ASA, clopidogrel, atorvastatin, furosemide/KCl, metolazone. BP/HR within goal ranges, BUN/SCr at baseline, K wnl, hepatic enzymes wnl, lipids at goal. Continue to monitor BP/HR, renal function, electrolytes, lipids, enzymes. 5) Hypothyroidism Levothyroxine daily. Continue to monitor s/s hyper/hypothyroidism. 6) GI Pantoprazole daily, ondansetron prn. Continue to monitor prn medication use, s/s GI distress. 7) Nutrition Fe, Glucerna. Continue to monitor clinically. 8) Derm Clobetasol twice daily. Continue to monitor clinically. 9) DVT PPx Enoxaparin daily. Continue to monitor s/s bleeding/clot. Psychotropic Medications: None Unnecessary Medications: None Bowel Regimen: 10) Senna/s, PEG, prn bisacodyl. Continue to monitor prn medication use, for constipation/diarrhea. Date of Note:: 08/30/17 - Provider Comments Provider responsibility: Provider responsible to enter orders to implement recommendations <Johnathan Batres Chi - Last Filed: 08/30/17 19:28> Progress Note - Pharmacy Subjective: [] Objective: Allergies adhesive Allergy (Verified 02/13/17 14:38) SKIN GETS PULLED OFF SKIN GETS PULLED OFF latex Allergy (Verified 02/13/17 14:38) Hives Home Medications Medication Instructions Recorded Clopidogrel Bisulfate [Plavix] 75 mg PO DAILY 05/15/13 Levothyroxine [Synthroid] 200 mcg PO DAILY 05/15/13 Metoprolol Tartrate [Lopressor 100 mg PO BID 05/15/13 (beta adonis)] Atorvastatin Calcium [Lipitor] 80 mg PO QHS 01/12/16 Pantoprazole Sodium [Protonix] 20 mg PO DAILY 01/12/16 Aspirin [Aspirin, Baby] 81 mg PO DAILY@0800 02/25/16 Baclofen [Lioresal] 10 mg PO TID 02/25/16 Meclizine HCl [Antivert] 12.5 mg PO TID PRN PRN 07/12/16 Fluticasone 0.05% [Flonase Nasal 1 spray NASAL DAILY 01/11/17 Sarita] Furosemide [Lasix] 80 mg PO BID 02/13/17 Insulin Detemir [Levemir FlexPen] 40 units SC BID 02/13/17 Linacolotide [Linzess] 145 mcg PO DAILY 07/24/17 Dapagliflozin Propanediol [Farxiga] 10 mg PO DAILY 07/27/17 Insulin Aspart [Novolog Flexpen] 26 units SC TIDAC 07/27/17 Iron Polysaccharide Complex 150 mg PO DAILYCM 07/27/17 [Ferrex 150] Linagliptin [Tradjenta] 5 mg PO DAILY 07/27/17 Plecanatide [Trulance] 3 mg PO DAILY 07/27/17 Polyethylene Glycol 3350 1 pkt PO DAILY PRN 07/27/17 Lisinopril [Zestril] 2.5 tab PO DAILY 07/30/17 Ceftriaxone 2 gm IV Q24 08/03/17 Hydrocodone Bitart/Apap 5-325 1 - 2 tab PO Q6H PRN PRN #10 tab 08/03/17 [[place] 5/325] Metronidazole [Flagyl] 500 mg PO TID 08/03/17 Montelukast [Singulair] 10 mg PO DAILY 30 Days #0 08/03/17 Current Medications Generic Name Dose Route Start Last Admin Trade Name Freq PRN Reason Stop Dose Admin Hydrocodone Bitart/Acetaminophen 1 - 2 tablet 08/03/17 15:15 08/30/17 04:18 [place] 5mg-325mg PO 2 tablet Q6H PRN PRN Administration Moderate-severe pain Aspirin 81 mg 08/04/17 08:00 08/30/17 07:42 Aspirin, Baby PO 81 mg DAILY@0800 IGNACIO Administration Atorvastatin Calcium 80 mg 08/03/17 22:00 08/29/17 19:52 Lipitor PO 80 mg QHS IGNACIO Administration Bisacodyl 10 mg 08/03/17 15:23 Dulcolax PO DAILY PRN PRN Constipation Clobetasol Propionate 1 applic 08/26/17 18:00 08/30/17 05:23 Temovate Cream ([facility]) TOPICAL 1 applicatio BID IGNACIO Administration Protocol Clopidogrel Bisulfate 75 mg 08/04/17 06:00 08/30/17 05:20 Plavix PO 75 mg DAILY IGNACIO Administration Dextrose 0 gm 08/03/17 21:19 D50w Syringe IV X1 PRN Hypoglycemia Protocol Enoxaparin Sodium 40 mg 08/04/17 06:00 08/30/17 05:21 Lovenox SC 40 mg DAILY@0600 IGNACIO Administration Fluticasone Propionate 2 spray 08/10/17 06:00 08/30/17 05:22 Flonase Nasal Sarita NASAL 2 spray DAILY IGNACIO Administration Furosemide 80 mg 08/07/17 06:00 08/30/17 13:35 Lasix IV 80 mg BID@0600,1400 IGNACIO Administration Glucagon 1 mg 08/03/17 21:19 IM .X1 PRN Hypoglycemia Heparin Sodium (Beef Lung) 500 unit 08/03/17 16:17 Heparin 500 Unit/5 Ml (100/Ml) IV UD PRN HEPARIN FLUSH Ceftriaxone Sodium 2 gm/ 50 mls @ 100 mls/hr 08/04/17 10:00 08/30/17 10:52 Sodium Chloride IV 09/11/17 11:00 100 mls/hr Q24 IGNACIO Administration Sodium Chloride 250 mls @ 15 mls/hr 08/03/17 16:31 08/29/17 07:00 IV 15 mls/hr .[id number] PRN Administration SALINE FLUSH Vancomycin HCl 1,500 mg/ 530 mls @ 260 mls/hr 08/31/17 10:00 Dextrose IV 09/11/17 12:03 Q24H [facility] Insulin Aspart 30 units 08/25/17 16:45 08/30/17 17:56 Novolog Flexpen ([facility]) SC 30 units TIDAC [facility] Administration Insulin Detemir 45 units 08/25/17 22:00 08/30/17 09:59 Levemir ([facility]) SC 45 units 1000,2200 IGNACIO Administration Levothyroxine Sodium 200 mcg 08/04/17 06:00 08/30/17 05:21 Synthroid PO 200 mcg DAILY IGNACIO Administration Linagliptin 5 mg 08/04/17 06:00 08/30/17 05:20 Tradjenta PO 5 mg DAILY IGNACIO Administration Lisinopril 2.5 mg 08/04/17 06:00 08/30/17 05:20 Zestril PO 2.5 mg DAILY IGNACIO Administration Metolazone 5 mg 08/16/17 05:30 08/30/17 12:39 Zaroxolyn PO 5 mg BID@0530,1330 IGNACIO Administration Metoprolol Tartrate 100 mg 08/03/17 18:00 08/30/17 17:50 Lopressor (Beta Adonis) PO 100 mg BID IGNACIO Administration Metronidazole 500 mg 08/03/17 22:00 08/30/17 13:35 Flagyl PO 09/11/17 23:59 500 mg TID IGNACIO Administration Nutritional Formula (Lactose Free) 120 ml 08/03/17 17:45 08/30/17 17:45 Glucerna Shake PO 120 ml TIDCM IGNACIO Administration Ondansetron HCl 4 mg 08/26/17 18:45 08/26/17 19:08 Zofran Odt PO 4 mg Q8H PRN PRN Administration NAUSEA/VOMITING Pantoprazole Sodium 20 mg 08/04/17 06:00 08/30/17 05:23 Protonix PO 20 mg DAILY IGNACIO Administration Polyethylene Glycol 17 gm 08/04/17 06:00 08/30/17 05:22 Miralax PO 17 gm DAILY IGNACIO Administration Polysaccharide Iron Complex 150 mg 08/04/17 08:00 08/30/17 07:41 Ferrex 150 PO 150 mg DAILYCM IGNACIO Administration Potassium Chloride 20 meq 08/19/17 08:00 08/30/17 07:41 K-Dur PO 20 meq DAILYCM IGNACIO Administration Senna/Docusate Sodium 2 tablet 08/03/17 18:00 08/30/17 17:50 Senokot-S, Maggy-Colace PO 2 tablet BID IGNACIO Administration Sodium Chloride 5 - 30 ml 08/03/17 16:17 08/30/17 08:20 IV 10 ml UD PRN Administration SALINE FLUSH Sodium Chloride 10 - 20 ml 08/03/17 16:17 08/30/17 13:35 IV 20 ml UD PRN Administration PICC FLUSH Problem List Sepsis (Acute) Osteomyelitis of foot (Acute) Diabetes mellitus (Chronic) Vital Signs Temp Pulse Resp BP Pulse Ox 97.6 F L 75 18 136/59 H 98 08/30/17 15:16 08/30/17 17:50 08/30/17 15:16 08/30/17 17:50 08/30/17 15:16 Oxygen Delivery Method Room Air Weight: 107.65 kg Body Mass Index (BMI) 34.6 Finger Stick Blood Glucose 164 Sodium 134 mmol/L (136-145) L 08/25/17 05:20 Potassium 3.7 mmol/L (3.5-5.1) 08/25/17 05:20 Chloride 94 mmol/L (98-107) L 08/25/17 05:20 Carbon Dioxide 34.0 mmol/L (21.0-32.0) H 08/25/17 05:20 Anion Gap 6 (5-15) 08/25/17 05:20 BUN 26 mg/dL (7-18) H 08/25/17 05:20 Creatinine 1.27 mg/dL (0.70-1.30) 08/25/17 05:20 Est GFR (MDRD) Af Amer 73 mL/min (>60) 08/25/17 05:20 Est GFR (MDRD) Non-Af 60 mL/min (>60) 08/25/17 05:20 BUN/Creatinine Ratio 20.5 RATIO (10-20) H 08/25/17 05:20 Glucose 385 mg/dL (74-106) H 08/25/17 05:20 Vancomycin Trough 19.0 ug/mL (5.0-15.0) H 08/30/17 07:25 Assessment/Plan: Psychotropic Medications: Unnecessary Medications: Bowel Regimen: - Provider Comments Provider responsibility: Provider responsible to enter orders to implement recommendations Provider Comments to Recommendations by Pharmacy: Agree
[2017-08-30 11:26] LABS: Bedside Glucose 329 mg/dL (70-110)
--- NOTE | 2017-08-30 11:34 | PHA.CONS_ITS ---
<JessieNathaniel carrizales D - Last Filed: 08/30/17 11:16> Progress Note - Pharmacy Subjective: TCU Follow-up Objective: Allergies adhesive Allergy (Verified 02/13/17 14:38) SKIN GETS PULLED OFF SKIN GETS PULLED OFF latex Allergy (Verified 02/13/17 14:38) Hives Home Medications Medication Instructions Recorded Clopidogrel Bisulfate [Plavix] 75 mg PO DAILY 05/15/13 Levothyroxine [Synthroid] 200 mcg PO DAILY 05/15/13 Metoprolol Tartrate [Lopressor 100 mg PO BID 05/15/13 (beta adonis)] Atorvastatin Calcium [Lipitor] 80 mg PO QHS 01/12/16 Pantoprazole Sodium [Protonix] 20 mg PO DAILY 01/12/16 Aspirin [Aspirin, Baby] 81 mg PO DAILY@0800 02/25/16 Baclofen [Lioresal] 10 mg PO TID 02/25/16 Meclizine HCl [Antivert] 12.5 mg PO TID PRN PRN 07/12/16 Fluticasone 0.05% [Flonase Nasal 1 spray NASAL DAILY 01/11/17 Otis] Furosemide [Lasix] 80 mg PO BID 02/13/17 Insulin Detemir [Levemir FlexPen] 40 units SC BID 02/13/17 Linacolotide [Linzess] 145 mcg PO DAILY 07/24/17 Dapagliflozin Propanediol [Farxiga] 10 mg PO DAILY 07/27/17 Insulin Aspart [Novolog Flexpen] 26 units SC TIDAC 07/27/17 Iron Polysaccharide Complex 150 mg PO DAILYCM 07/27/17 [Ferrex 150] Linagliptin [Tradjenta] 5 mg PO DAILY 07/27/17 Plecanatide [Trulance] 3 mg PO DAILY 07/27/17 Polyethylene Glycol 3350 1 pkt PO DAILY PRN 07/27/17 Lisinopril [Zestril] 2.5 tab PO DAILY 07/30/17 Ceftriaxone 2 gm IV Q24 08/03/17 Hydrocodone Bitart/Apap 5-325 1 - 2 tab PO Q6H PRN PRN #10 tab 08/03/17 [[place] 5/325] Metronidazole [Flagyl] 500 mg PO TID 08/03/17 Montelukast [Singulair] 10 mg PO DAILY 30 Days #0 08/03/17 Current Medications Generic Name Dose Route Start Last Admin Trade Name Freq PRN Reason Stop Dose Admin Hydrocodone Bitart/Acetaminophen 1 - 2 tablet 08/03/17 15:15 08/30/17 04:18 [place] 5mg-325mg PO 2 tablet Q6H PRN PRN Administration Moderate-severe pain Aspirin 81 mg 08/04/17 08:00 08/30/17 07:42 Aspirin, Baby PO 81 mg DAILY@0800 IGNACIO Administration Atorvastatin Calcium 80 mg 08/03/17 22:00 08/29/17 19:52 Lipitor PO 80 mg QHS IGNACIO Administration Bisacodyl 10 mg 08/03/17 15:23 Dulcolax PO DAILY PRN PRN Constipation Clobetasol Propionate 1 applic 08/26/17 18:00 08/30/17 05:23 Temovate Cream ([facility]) TOPICAL 1 applicatio BID IGNACIO Administration Protocol Clopidogrel Bisulfate 75 mg 08/04/17 06:00 08/30/17 05:20 Plavix PO 75 mg DAILY IGNACIO Administration Dextrose 0 gm 08/03/17 21:19 [id number] Syringe IV X1 PRN Hypoglycemia Protocol Enoxaparin Sodium 40 mg 08/04/17 06:00 08/30/17 05:21 Lovenox SC 40 mg DAILY@0600 [facility] Administration Fluticasone Propionate 2 spray 08/10/17 06:00 08/30/17 05:22 Flonase Nasal [place] NASAL 2 spray DAILY IGNACIO Administration Furosemide 80 mg 08/07/17 06:00 08/30/17 05:23 Lasix IV 80 mg BID@0600,1400 IGNACIO Administration Glucagon 1 mg 08/03/17 21:19 IM .X1 PRN Hypoglycemia Heparin Sodium (Beef Lung) 500 unit 08/03/17 16:17 Heparin 500 Unit/5 Ml (100/Ml) IV UD PRN HEPARIN FLUSH Ceftriaxone Sodium 2 gm/ 50 mls @ 100 mls/hr 08/04/17 10:00 08/30/17 10:52 Sodium Chloride IV 09/11/17 11:00 100 mls/hr Q24 IGNACIO Administration Sodium Chloride 250 mls @ 15 mls/hr 08/03/17 16:31 08/29/17 07:00 IV 15 mls/hr .[id number] PRN Administration SALINE FLUSH Vancomycin HCl 1,750 mg/ 535 mls @ 260 mls/hr 08/09/17 08:00 08/30/17 08:20 Sodium Chloride IV 08/30/17 12:00 260 mls/hr Q24H IGNACIO Administration Vancomycin HCl 1,500 mg/ 530 mls @ 260 mls/hr 08/31/17 10:00 Dextrose IV 09/11/17 12:03 Q24H IGNACIO Insulin Aspart 30 units 08/25/17 16:45 08/30/17 07:43 Novolog Flexpen ([facility]) SC 30 units TIDAC IGNACIO Administration Insulin Detemir 45 units 08/25/17 22:00 08/30/17 09:59 Levemir ([facility]) SC 45 units 1000,2200 IGNACIO Administration Levothyroxine Sodium 200 mcg 08/04/17 06:00 08/30/17 05:21 Synthroid PO 200 mcg DAILY IGNACIO Administration Linagliptin 5 mg 08/04/17 06:00 08/30/17 05:20 Tradjenta PO 5 mg DAILY IGNACIO Administration Lisinopril 2.5 mg 08/04/17 06:00 08/30/17 05:20 Zestril PO 2.5 mg DAILY IGNACIO Administration Metolazone 5 mg 08/16/17 05:30 08/30/17 04:18 Zaroxolyn PO 5 mg BID@0530,1330 IGNACIO Administration Metoprolol Tartrate 100 mg 08/03/17 18:00 08/30/17 05:21 Lopressor (Beta Adonis) PO 100 mg BID IGNACIO Administration Metronidazole 500 mg 08/03/17 22:00 08/30/17 05:21 Flagyl PO 09/11/17 23:59 500 mg TID IGNACIO Administration Nutritional Formula (Lactose Free) 120 ml 08/03/17 17:45 08/30/17 07:39 Glucerna Shake PO 120 ml TIDCM IGNACIO Administration Ondansetron HCl 4 mg 08/26/17 18:45 08/26/17 19:08 Zofran Odt PO 4 mg Q8H PRN PRN Administration NAUSEA/VOMITING Pantoprazole Sodium 20 mg 08/04/17 06:00 08/30/17 05:23 Protonix PO 20 mg DAILY IGNACIO Administration Polyethylene Glycol 17 gm 08/04/17 06:00 08/30/17 05:22 Miralax PO 17 gm DAILY IGNACIO Administration Polysaccharide Iron Complex 150 mg 08/04/17 08:00 08/30/17 07:41 Ferrex 150 PO 150 mg DAILYCM IGNACIO Administration Potassium Chloride 20 meq 08/19/17 08:00 08/30/17 07:41 K-Dur PO 20 meq DAILYCM IGNACIO Administration Senna/Docusate Sodium 2 tablet 08/03/17 18:00 08/30/17 05:20 Senokot-S, Maggy-Colace PO 2 tablet BID IGNACIO Administration Sodium Chloride 5 - 30 ml 08/03/17 16:17 08/30/17 08:20 IV 10 ml UD PRN Administration SALINE FLUSH Sodium Chloride 10 - 20 ml 08/03/17 16:17 08/29/17 13:54 IV 20 ml UD PRN Administration PICC FLUSH Problem List Sepsis (Acute) Osteomyelitis of foot (Acute) Diabetes mellitus (Chronic) Vital Signs Temp Pulse Resp BP Pulse Ox 96.7 F L 74 18 141/72 H 96 08/29/17 15:45 08/30/17 10:00 08/30/17 10:00 08/30/17 05:21 08/30/17 10:00 Oxygen Delivery Method Room Air Weight: 107.65 kg Body Mass Index (BMI) 34.6 Finger Stick Blood Glucose 164 Sodium 134 mmol/L (136-145) L 08/25/17 05:20 Potassium 3.7 mmol/L (3.5-5.1) 08/25/17 05:20 Chloride 94 mmol/L (98-107) L 08/25/17 05:20 Carbon Dioxide 34.0 mmol/L (21.0-32.0) H 08/25/17 05:20 Anion Gap 6 (5-15) 08/25/17 05:20 BUN 26 mg/dL (7-18) H 08/25/17 05:20 Creatinine 1.27 mg/dL (0.70-1.30) 08/25/17 05:20 Est GFR (MDRD) Af Amer 73 mL/min (>60) 08/25/17 05:20 Est GFR (MDRD) Non-Af 60 mL/min (>60) 08/25/17 05:20 BUN/Creatinine Ratio 20.5 RATIO (10-20) H 08/25/17 05:20 Glucose 385 mg/dL (74-106) H 08/25/17 05:20 Vancomycin Trough 19.0 ug/mL (5.0-15.0) H 08/30/17 07:25 Assessment/Plan: 1) Pain Hydrocodone/APAP as needed. Continue to monitor prn medication use, daily pain scores. 2) ID Vancomycin, ceftriaxone, metronidazole until 09/11 for osteomyelitis. WBC wnl, afebrile. Pharmacy monitoring and adjusting vancomycin. Continue to monitor renal function, vancomycin levels, s/s infection. 3) DM2 Linagliptin, insulin detemir twice daily, aspart 3x daily with meals. BGT has been running high, patient's sugars are very brittle, insulin being titrated. Continue to monitor BGT, s/s hyper/hypoglycemia. 4) CAD/CHF Lisinopril, metoprolol, ASA, clopidogrel, atorvastatin, furosemide/KCl, metolazone. BP/HR within goal ranges, BUN/SCr at baseline, K wnl, hepatic enzymes wnl, lipids at goal. Continue to monitor BP/HR, renal function, electrolytes, lipids, enzymes. 5) Hypothyroidism Levothyroxine daily. Continue to monitor s/s hyper/hypothyroidism. 6) GI Pantoprazole daily, ondansetron prn. Continue to monitor prn medication use, s/s GI distress. 7) Nutrition Fe, Glucerna. Continue to monitor clinically. 8) Derm Clobetasol twice daily. Continue to monitor clinically. 9) DVT PPx Enoxaparin daily. Continue to monitor s/s bleeding/clot. Psychotropic Medications: None Unnecessary Medications: None Bowel Regimen: 10) Senna/s, PEG, prn bisacodyl. Continue to monitor prn medication use, for constipation/diarrhea. Date of Note:: 08/30/17 - Provider Comments Provider responsibility: Provider responsible to enter orders to implement recommendations <Johnathan Batres Chi - Last Filed: 08/30/17 19:28> Progress Note - Pharmacy Subjective: [] Objective: Allergies adhesive Allergy (Verified 02/13/17 14:38) SKIN GETS PULLED OFF SKIN GETS PULLED OFF latex Allergy (Verified 02/13/17 14:38) Hives Home Medications Medication Instructions Recorded Clopidogrel Bisulfate [Plavix] 75 mg PO DAILY 05/15/13 Levothyroxine [Synthroid] 200 mcg PO DAILY 05/15/13 Metoprolol Tartrate [Lopressor 100 mg PO BID 05/15/13 (beta adonis)] Atorvastatin Calcium [Lipitor] 80 mg PO QHS 01/12/16 Pantoprazole Sodium [Protonix] 20 mg PO DAILY 01/12/16 Aspirin [Aspirin, Baby] 81 mg PO DAILY@0800 02/25/16 Baclofen [Lioresal] 10 mg PO TID 02/25/16 Meclizine HCl [Antivert] 12.5 mg PO TID PRN PRN 07/12/16 Fluticasone 0.05% [Flonase Nasal 1 spray NASAL DAILY 01/11/17 [place]] Furosemide [Lasix] 80 mg PO BID 02/13/17 Insulin Detemir [Levemir FlexPen] 40 units SC BID 02/13/17 Linacolotide [Linzess] 145 mcg PO DAILY 07/24/17 Dapagliflozin Propanediol [Farxiga] 10 mg PO DAILY 07/27/17 Insulin Aspart [Novolog Flexpen] 26 units SC TIDAC 07/27/17 Iron Polysaccharide Complex 150 mg PO DAILYCM 07/27/17 [Ferrex 150] Linagliptin [Tradjenta] 5 mg PO DAILY 07/27/17 Plecanatide [Trulance] 3 mg PO DAILY 07/27/17 Polyethylene Glycol 3350 1 pkt PO DAILY PRN 07/27/17 Lisinopril [Zestril] 2.5 tab PO DAILY 07/30/17 Ceftriaxone 2 gm IV Q24 08/03/17 Hydrocodone Bitart/Apap 5-325 1 - 2 tab PO Q6H PRN PRN #10 tab 08/03/17 [[place] 5/325] Metronidazole [Flagyl] 500 mg PO TID 08/03/17 Montelukast [Singulair] 10 mg PO DAILY 30 Days #0 08/03/17 Current Medications Generic Name Dose Route Start Last Admin Trade Name Freq PRN Reason Stop Dose Admin Hydrocodone Bitart/Acetaminophen 1 - 2 tablet 08/03/17 15:15 08/30/17 04:18 [place] 5mg-325mg PO 2 tablet Q6H PRN PRN Administration Moderate-severe pain Aspirin 81 mg 08/04/17 08:00 08/30/17 07:42 Aspirin, Baby PO 81 mg DAILY@0800 IGNACIO Administration Atorvastatin Calcium 80 mg 08/03/17 22:00 08/29/17 19:52 Lipitor PO 80 mg QHS IGNACIO Administration Bisacodyl 10 mg 08/03/17 15:23 Dulcolax PO DAILY PRN PRN Constipation Clobetasol Propionate 1 applic 08/26/17 18:00 08/30/17 05:23 Temovate Cream ([facility]) TOPICAL 1 applicatio BID IGNACIO Administration Protocol Clopidogrel Bisulfate 75 mg 08/04/17 06:00 08/30/17 05:20 Plavix PO 75 mg DAILY IGNACIO Administration Dextrose 0 gm 08/03/17 21:19 D50w Syringe IV X1 PRN Hypoglycemia Protocol Enoxaparin Sodium 40 mg 08/04/17 06:00 08/30/17 05:21 Lovenox SC 40 mg DAILY@0600 IGNACIO Administration Fluticasone Propionate 2 spray 08/10/17 06:00 08/30/17 05:22 Flonase Nasal [place] NASAL 2 spray DAILY IGNACIO Administration Furosemide 80 mg 08/07/17 06:00 08/30/17 13:35 Lasix IV 80 mg BID@0600,1400 IGNACIO Administration Glucagon 1 mg 08/03/17 21:19 IM .X1 PRN Hypoglycemia Heparin Sodium (Beef Lung) 500 unit 08/03/17 16:17 Heparin 500 Unit/5 Ml (100/Ml) IV UD PRN HEPARIN FLUSH Ceftriaxone Sodium 2 gm/ 50 mls @ 100 mls/hr 08/04/17 10:00 08/30/17 10:52 Sodium Chloride IV 09/11/17 11:00 100 mls/hr Q24 IGNACIO Administration Sodium Chloride 250 mls @ 15 mls/hr 08/03/17 16:31 08/29/17 07:00 IV 15 mls/hr .[id number] PRN Administration SALINE FLUSH Vancomycin HCl 1,500 mg/ 530 mls @ 260 mls/hr 08/31/17 10:00 Dextrose IV 09/11/17 12:03 Q24H [facility] Insulin Aspart 30 units 08/25/17 16:45 08/30/17 17:56 Novolog Flexpen ([facility]) SC 30 units TIDAC [facility] Administration Insulin Detemir 45 units 08/25/17 22:00 08/30/17 09:59 Levemir ([facility]) SC 45 units 1000,2200 IGNACIO Administration Levothyroxine Sodium 200 mcg 08/04/17 06:00 08/30/17 05:21 Synthroid PO 200 mcg DAILY IGNACIO Administration Linagliptin 5 mg 08/04/17 06:00 08/30/17 05:20 Tradjenta PO 5 mg DAILY IGNACIO Administration Lisinopril 2.5 mg 08/04/17 06:00 08/30/17 05:20 Zestril PO 2.5 mg DAILY IGNACIO Administration Metolazone 5 mg 08/16/17 05:30 08/30/17 12:39 Zaroxolyn PO 5 mg BID@0530,1330 IGNACIO Administration Metoprolol Tartrate 100 mg 08/03/17 18:00 08/30/17 17:50 Lopressor (Beta Adonis) PO 100 mg BID IGNACIO Administration Metronidazole 500 mg 08/03/17 22:00 08/30/17 13:35 Flagyl PO 09/11/17 23:59 500 mg TID IGNACIO Administration Nutritional Formula (Lactose Free) 120 ml 08/03/17 17:45 08/30/17 17:45 Glucerna Shake PO 120 ml TIDCM IGNACIO Administration Ondansetron HCl 4 mg 08/26/17 18:45 08/26/17 19:08 Zofran Odt PO 4 mg Q8H PRN PRN Administration NAUSEA/VOMITING Pantoprazole Sodium 20 mg 08/04/17 06:00 08/30/17 05:23 Protonix PO 20 mg DAILY IGNACIO Administration Polyethylene Glycol 17 gm 08/04/17 06:00 08/30/17 05:22 Miralax PO 17 gm DAILY IGNACIO Administration Polysaccharide Iron Complex 150 mg 08/04/17 08:00 08/30/17 07:41 Ferrex 150 PO 150 mg DAILYCM IGNACIO Administration Potassium Chloride 20 meq 08/19/17 08:00 08/30/17 07:41 K-Dur PO 20 meq DAILYCM IGNACIO Administration Senna/Docusate Sodium 2 tablet 08/03/17 18:00 08/30/17 17:50 Senokot-S, Maggy-Colace PO 2 tablet BID IGNACIO Administration Sodium Chloride 5 - 30 ml 08/03/17 16:17 08/30/17 08:20 IV 10 ml UD PRN Administration SALINE FLUSH Sodium Chloride 10 - 20 ml 08/03/17 16:17 08/30/17 13:35 IV 20 ml UD PRN Administration PICC FLUSH Problem List Sepsis (Acute) Osteomyelitis of foot (Acute) Diabetes mellitus (Chronic) Vital Signs Temp Pulse Resp BP Pulse Ox 97.6 F L 75 18 136/59 H 98 08/30/17 15:16 08/30/17 17:50 08/30/17 15:16 08/30/17 17:50 08/30/17 15:16 Oxygen Delivery Method Room Air Weight: 107.65 kg Body Mass Index (BMI) 34.6 Finger Stick Blood Glucose 164 Sodium 134 mmol/L (136-145) L 08/25/17 05:20 Potassium 3.7 mmol/L (3.5-5.1) 08/25/17 05:20 Chloride 94 mmol/L (98-107) L 08/25/17 05:20 Carbon Dioxide 34.0 mmol/L (21.0-32.0) H 08/25/17 05:20 Anion Gap 6 (5-15) 08/25/17 05:20 BUN 26 mg/dL (7-18) H 08/25/17 05:20 Creatinine 1.27 mg/dL (0.70-1.30) 08/25/17 05:20 Est GFR (MDRD) Af Amer 73 mL/min (>60) 08/25/17 05:20 Est GFR (MDRD) Non-Af 60 mL/min (>60) 08/25/17 05:20 BUN/Creatinine Ratio 20.5 RATIO (10-20) H 08/25/17 05:20 Glucose 385 mg/dL (74-106) H 08/25/17 05:20 Vancomycin Trough 19.0 ug/mL (5.0-15.0) H 08/30/17 07:25 Assessment/Plan: Psychotropic Medications: Unnecessary Medications: Bowel Regimen: - Provider Comments Provider responsibility: Provider responsible to enter orders to implement recommendations Provider Comments to Recommendations by Pharmacy: Agree
[2017-08-30] MEDS: 0.9% NaCl PICC Flush IV (13:35)
--- NOTE | 2017-08-30 14:57 | MDS.RN ---
Information for the mds was obtained from review of the clinical record, interview of resident, staff, and direct observation of resident's care.
[2017-08-30 15:16] VITALS: BP 136/59; PULSE 75; RESP 18; TEMP 36.4; O2SAT 98
--- NOTE | 2017-08-30 15:27 | CASEMGMT ---
Brief interview for mental status (BIMS) and resident mood interview (PHQ-9) completed on this day. BIMS score 15. PHQ-9 score 11/04
[2017-08-30 17:00] LABS: Bedside Glucose 286 mg/dL (70-110)
[2017-08-30 17:50] VITALS: BP 136/59; PULSE 75
[2017-08-30 20:55] LABS: Bedside Glucose 309 mg/dL (70-110)
[2017-08-30] MEDS: Atorvastatin Calcium 80 MG Tablet PO (21:23)
[2017-08-31] MEDS: Lisinopril 2.5 MG Tablet PO (05:24)
[2017-08-31] MEDS: Levothyroxine 100 MCG Tablet 200 MCG PO (05:24)
[2017-08-31] MEDS: LINAGLIPTIN 5 MG TABLET PO (05:24)
[2017-08-31] MEDS: Enoxaparin 40 MG/0.4 ML Syringe SC (05:24)
[2017-08-31] MEDS: Polyethylene Glycol 3350 17 GM PACKET PO (05:25)
[2017-08-31] MEDS: Clopidogrel Bisulfate 75 MG Tablet PO (05:25)
[2017-08-31] MEDS: metroNIDAZOLE 500 MG Tablet PO ×3 (05:25→21:55)
[2017-08-31] MEDS: Pantoprazole Sodium 20 MG Tablet PO (05:25)
[2017-08-31] MEDS: Senna/Docusate Sodium 1 Tablet 2 TABLET PO ×2 (05:25→17:31)
[2017-08-31] MEDS: Metolazone 2.5 MG Tablet 5 MG PO ×2 (05:25→13:33)
[2017-08-31] MEDS: Fluticasone 0.05% 1 SPRAY NASAL.SRY 2 SPRAY NASAL (05:26)
[2017-08-31 05:30] VITALS: BP 138/76; PULSE 83
[2017-08-31] MEDS: Metoprolol Tartrate 100 MG Tablet PO ×2 (05:30→17:31)
[2017-08-31] MEDS: Clobetasol Propionate 0.05% Cream 1 APPLIC TOPICAL ×3 (05:34→17:32)
[2017-08-31] MEDS: 0.9% NaCl Peripheral Flush Adult/Peds IV ×3 (06:12→14:47)
[2017-08-31] MEDS: Furosemide 100 MG/10 ML Vial 80 MG IV ×2 (06:12→14:47)
[2017-08-31 07:26] LABS: Bedside Glucose 190 mg/dL (70-110)
[2017-08-31] MEDS: Iron Polysaccharide Complex 150 MG CAPSULE PO (08:12)
[2017-08-31] MEDS: Aspirin 81 MG TAB.CHEW PO (08:12)
[2017-08-31] MEDS: Glucerna Shake 120 ML LIQUID PO ×2 (08:13→11:57)
[2017-08-31] MEDS: 0.9% NaCl IVPB Med Flush (250 mL) 15 ML IV (09:25)
[2017-08-31 10:00] VITALS: PULSE 86; RESP 18; O2SAT 95
[2017-08-31 11:56] LABS: Bedside Glucose 371 mg/dL (70-110)
[2017-08-31 15:36] VITALS: BP 145/67; PULSE 75; RESP 18; TEMP 36.6
[2017-08-31 16:46] LABS: Bedside Glucose 310 mg/dL (70-110)
[2017-08-31 17:31] VITALS: PULSE 75
[2017-08-31 21:25] LABS: Bedside Glucose 258 mg/dL (70-110)
[2017-08-31] MEDS: Atorvastatin Calcium 80 MG Tablet PO (21:55)
[2017-09-01] MEDS: Fluticasone 0.05% 1 SPRAY NASAL.SRY 2 SPRAY NASAL (04:54)
[2017-09-01] MEDS: Polyethylene Glycol 3350 17 GM PACKET PO (04:55)
[2017-09-01] MEDS: Metolazone 2.5 MG Tablet 5 MG PO ×2 (04:55→14:49)
[2017-09-01] MEDS: metroNIDAZOLE 500 MG Tablet PO ×3 (04:55→21:00)
[2017-09-01 04:56] VITALS: BP 135/60; PULSE 88
[2017-09-01 04:56] LABS: Absolute Lymphocyte Count 1.05 X10^3/ul (0.83-4.51); Absolute Neutrophil Count 6.2 X10^3/uL (2.0-7.7); Basophil# 0.07 X10^3/uL; Basophil% 0.8 % (0-1); Eosinophil# 0.89 X10^3/uL; Eosinophils% 9.6 % (0-5); Hematocrit 35.1 % (40-54); Hemoglobin 11.5 g/dl (13.0-16.5); Lymphocyte # 1.05 X10^3/ul (4.0); Lymphocyte % 11.3 % (19-41); Mean Corp Hgb Conc 32.8 g/gl (32-36); Mean Corpuscular Hgb 29.8 pg (27.0-32.0); Mean Corpuscular Volume 90.9 fL (80-94); Mean Platelet Vol. 10.3 fl (6.2-12.0); Monocyte% 10.8 % (0-10); Neutrophil # 6.23 X10^3/uL (2.7-7.7); Neutrophil % 67.3 % (47-70); Platelet Count 265 K/mm3 (150-450); RBC Distribution Width CV 14.5 % (11.6-14.6); RBC Distribution Width SD 47.3 fl (35.1-43.9); Red Blood Count 3.86 M/mm3 (4.6-6.2); White Blood Count 9.3 K/mm3 (4.4-11.0)
[2017-09-01] MEDS: Metoprolol Tartrate 100 MG Tablet PO ×2 (04:56→18:56)
[2017-09-01] MEDS: Senna/Docusate Sodium 1 Tablet 2 TABLET PO ×2 (04:56→18:57)
[2017-09-01] MEDS: Pantoprazole Sodium 20 MG Tablet PO (04:56)
[2017-09-01] MEDS: Clopidogrel Bisulfate 75 MG Tablet PO (04:56)
[2017-09-01 04:57] LABS: POSITIVE COUNT NO; POSITIVE DIFFERENTIAL NO; POSITIVE MORPHOLOGY NO
[2017-09-01] MEDS: LINAGLIPTIN 5 MG TABLET PO (04:57)
[2017-09-01] MEDS: Levothyroxine 100 MCG Tablet 200 MCG PO (04:57)
[2017-09-01] MEDS: Clobetasol Propionate 0.05% Cream 1 APPLIC TOPICAL ×2 (04:59→19:03)
[2017-09-01] MEDS: Enoxaparin 40 MG/0.4 ML Syringe SC (05:02)
[2017-09-01] MEDS: Lisinopril 2.5 MG Tablet PO (05:09)
[2017-09-01 05:19] LABS: Anion Gap 7 (5-15); BUN 34 mg/dL (7-18); BUN/Creat Ratio 24.5 RATIO (10-20); Chloride 96 mmol/L (98-107); Creatinine, Serum 1.39 mg/dL (0.70-1.30); EST Glomerular Filtration Rate 54 mL/min (>60); Est Glom Filt Rate - Afr Amer 66 mL/min (>60); Estimated Creatinine Clearance 56.43 ml/min; Glucose 469 mg/dL (74-106); Potassium 4.4 mmol/L (3.5-5.1); Sodium Level 133 mmol/L (136-145)
[2017-09-01 06:50] LABS: Bedside Glucose > 500 mg/dL (70-110)
[2017-09-01 06:56] LABS: Bedside Glucose > 500 mg/dL (70-110)
[2017-09-01] MEDS: Furosemide 100 MG/10 ML Vial 80 MG IV (07:28)
[2017-09-01] MEDS: Glucerna Shake 120 ML LIQUID PO (09:04)
[2017-09-01] MEDS: Aspirin 81 MG TAB.CHEW PO (09:04)
[2017-09-01] MEDS: Iron Polysaccharide Complex 150 MG CAPSULE PO (09:04)
[2017-09-01] MEDS: 0.9% NaCl Peripheral Flush Adult/Peds IV (11:19)
[2017-09-01 11:20] LABS: Bedside Glucose > 500 mg/dL (70-110)
[2017-09-01 11:48] LABS: Glucose 642 mg/dL (74-106)
--- NOTE | 2017-09-01 11:48 | NURSING ---
bs per biology adjunct instructor >500 so stat lab backup ordered. pt in wc in room and denies eating any differently. lab back up was 642 despite 30u extra and dr. yuan paged.
[2017-09-01 14:11] LABS: Bedside Glucose > 500 mg/dL (70-110)
[2017-09-01 14:56] LABS: Bedside Glucose > 500 mg/dL (70-110)
[2017-09-01 15:39] VITALS: BP 104/59; PULSE 74; RESP 17; TEMP 36.5; O2SAT 96
[2017-09-01 16:03] LABS: Glucose 474 mg/dL (74-106)
[2017-09-01] MEDS: Furosemide 40 MG/4 ML Vial IV (16:30)
[2017-09-01 17:45] LABS: Bedside Glucose 414 mg/dL (70-110)
[2017-09-01 18:56] VITALS: BP 104/59; PULSE 74
[2017-09-01 19:11] LABS: Bedside Glucose 436 mg/dL (70-110)
[2017-09-01] MEDS: HYDROcodone Bitartrate/Apap 5/325 Tablet PO (20:58)
[2017-09-01] MEDS: Atorvastatin Calcium 80 MG Tablet PO (21:00)
[2017-09-01 21:11] LABS: Bedside Glucose 414 mg/dL (70-110)
[2017-09-02 04:00] LABS: Bedside Glucose 243 mg/dL (70-110)
[2017-09-02] MEDS: HYDROcodone Bitartrate/Apap 5/325 Tablet PO ×2 (05:04→20:05)
[2017-09-02] MEDS: Fluticasone 0.05% 1 SPRAY NASAL.SRY 2 SPRAY NASAL (05:05)
[2017-09-02] MEDS: Levothyroxine 100 MCG Tablet 200 MCG PO (05:05)
[2017-09-02] MEDS: metroNIDAZOLE 500 MG Tablet PO ×3 (05:05→21:23)
[2017-09-02] MEDS: LINAGLIPTIN 5 MG TABLET PO (05:06)
[2017-09-02] MEDS: Senna/Docusate Sodium 1 Tablet 2 TABLET PO ×2 (05:06→18:07)
[2017-09-02] MEDS: Clobetasol Propionate 0.05% Cream 1 APPLIC TOPICAL ×2 (05:06→18:16)
[2017-09-02] MEDS: Pantoprazole Sodium 20 MG Tablet PO (05:06)
[2017-09-02 05:07] VITALS: PULSE 74
[2017-09-02] MEDS: Metoprolol Tartrate 100 MG Tablet PO ×2 (05:07→18:07)
[2017-09-02] MEDS: Enoxaparin 40 MG/0.4 ML Syringe SC (05:07)
[2017-09-02] MEDS: Polyethylene Glycol 3350 17 GM PACKET PO (05:07)
[2017-09-02] MEDS: Clopidogrel Bisulfate 75 MG Tablet PO (05:07)
[2017-09-02] MEDS: Lisinopril 2.5 MG Tablet PO (05:08)
[2017-09-02] MEDS: Furosemide 40 MG/4 ML Vial IV ×2 (06:04→13:18)
[2017-09-02] MEDS: 0.9% NaCl Peripheral Flush Adult/Peds IV (06:04)
[2017-09-02 07:11] LABS: Bedside Glucose 212 mg/dL (70-110)
[2017-09-02] MEDS: Aspirin 81 MG TAB.CHEW PO (08:40)
[2017-09-02] MEDS: Iron Polysaccharide Complex 150 MG CAPSULE PO (08:40)
[2017-09-02 11:16] LABS: Bedside Glucose 220 mg/dL (70-110)
[2017-09-02] MEDS: Glucerna Shake 120 ML LIQUID PO ×2 (11:46→18:11)
[2017-09-02 16:00] VITALS: BP 121/49; PULSE 68; RESP 17; TEMP 36.5; O2SAT 96
[2017-09-02 17:20] LABS: Bedside Glucose 200 mg/dL (70-110)
[2017-09-02 18:07] VITALS: BP 121/49; PULSE 68
[2017-09-02 19:59] VITALS: O2SAT 98
[2017-09-02 21:01] LABS: Bedside Glucose 215 mg/dL (70-110)
[2017-09-02] MEDS: Atorvastatin Calcium 80 MG Tablet PO (21:22)
[2017-09-03] MEDS: Polyethylene Glycol 3350 17 GM PACKET PO (06:12)
[2017-09-03] MEDS: Fluticasone 0.05% 1 SPRAY NASAL.SRY 2 SPRAY NASAL (06:14)
[2017-09-03] MEDS: Senna/Docusate Sodium 1 Tablet 2 TABLET PO ×2 (06:15→17:29)
[2017-09-03] MEDS: Clopidogrel Bisulfate 75 MG Tablet PO (06:15)
[2017-09-03] MEDS: Furosemide 40 MG/4 ML Vial IV ×2 (06:15→13:20)
[2017-09-03] MEDS: metroNIDAZOLE 500 MG Tablet PO ×3 (06:15→21:43)
[2017-09-03] MEDS: Levothyroxine 100 MCG Tablet 200 MCG PO (06:16)
[2017-09-03] MEDS: Pantoprazole Sodium 20 MG Tablet PO (06:16)
[2017-09-03] MEDS: Lisinopril 2.5 MG Tablet PO (06:16)
[2017-09-03] MEDS: Enoxaparin 40 MG/0.4 ML Syringe SC (06:16)
[2017-09-03 06:20] VITALS: BP 143/68; PULSE 86
[2017-09-03] MEDS: Metoprolol Tartrate 100 MG Tablet PO ×2 (06:20→17:29)
[2017-09-03] MEDS: LINAGLIPTIN 5 MG TABLET PO (06:26)
[2017-09-03 06:35] LABS: Bedside Glucose 321 mg/dL (70-110)
[2017-09-03] MEDS: Glucerna Shake 120 ML LIQUID PO ×3 (07:50→17:27)
[2017-09-03] MEDS: Aspirin 81 MG TAB.CHEW PO (07:52)
[2017-09-03] MEDS: Iron Polysaccharide Complex 150 MG CAPSULE PO (07:52)
[2017-09-03] MEDS: 0.9% NaCl PICC Flush IV ×2 (09:02→13:20)
[2017-09-03] MEDS: 0.9% NaCl IVPB Med Flush (250 mL) 15 ML IV (09:04)
--- NOTE | 2017-09-03 10:00 | NURSING ---
wound photo: left foot
--- NOTE | 2017-09-03 10:00 | NURSING ---
wound photo: right foot
[2017-09-03 11:20] LABS: Bedside Glucose 349 mg/dL (70-110)
--- NOTE | 2017-09-03 13:02 | CASEMGMT ---
Insurance Clinical information faxed. Pending continued stay approval at this time. Auth#[id number] Nohemi SYED, SQL ANALYST
[2017-09-03 15:19] VITALS: BP 111/60; PULSE 79; RESP 18; TEMP 36.5; O2SAT 93
--- NOTE | 2017-09-03 15:30 | PCM.PROGNOTE ---
Patient Problems: Active and Suspected Problems Sepsis (Acute) Osteomyelitis of foot (Acute) Subjective: Patient seen today for follow up on feet. He relates he is doing well, he relates feet are doing well. He has no new complaints. He was rested in chair with feet elevated on his wheelchair. - Physical Exam General: Alert, Oriented x3, Cooperative, No apparent distress Extremities: No Calf Tenderness, - - Reviewed wound photos taken by wound nurse today - Right foot s/p 5th ray resection with incision well coapted and continues to heal, there is no dehiscence, no necrosis, no cellulitis, no blistering, no fluctuance, no malodor appreciated. Left surgical site s/p TMA, incision well coapted and also continues to heal well, no necrosis, no cellulitis, no blistering, no fluctuance, no malodor appreciated. Very small superficial wound dorsal right 2nd toe healing well and no evidence of infection. No acute ischemia bilateral lower extremity, no new ulcerations, bilateral lower extremity edema controlled with compression dressings. Vital Signs Temp Pulse Resp BP Pulse Ox 97.7 F L 79 18 111/60 93 09/03/17 15:19 09/03/17 17:29 09/03/17 15:19 09/03/17 17:29 09/03/17 15:19 Oxygen Delivery Method Room Air Weight: 107.7 kg Body Mass Index (BMI) 34.6 Finger Stick Blood Glucose 164 Intake and Output for Last 24 Hours 09/01/17 09/02/17 09/03/17 23:59 23:59 23:59 Intake Total 2320 / 2320 730 / 730 1695 / 1695 Output Total 525 / 525 500 / 500 Balance 1795 / 1795 730 / 730 1195 / 1195 POC Glucose 09/03/17 09/03/17 09/03/17 20:46 16:48 10:55 POC Glucose 348 H 352 H 349 H 09/03/17 06:25 POC Glucose 321 H Medical Necessity - Tobacco Use Smoking Status: Former smoker Tobacco Use: Non-smoker Assessment/Plan Active and Suspected Problems Sepsis (Acute) Osteomyelitis of foot (Acute) osteomyelitis bilateral feet s/p surgical intervention on 07/31/17 Surgical sites on feet healing well. Continue with dressing changes - Betadine solution and adaptic to incision sites with overlying 4x4 gauze, abd, kerlix, and CIERA bandages below knee - change daily. Dressing changes by nursing is much appreciated. Patient also being followed by Infectious Disease, and is currently completing course of antibiotic therapy for osteomyelitis, scheduled to finish IV antibiotic therapy on 09/11/17. Chronic lower extremity PAD, per vascular surgery. Medical management per Dr. Batres/medicine team. Podiatry will continue to follow. Please contact with any questions or concerns.
[2017-09-03 16:56] LABS: Bedside Glucose 352 mg/dL (70-110)
[2017-09-03 17:29] VITALS: BP 111/60; PULSE 79
[2017-09-03 21:01] LABS: Bedside Glucose 348 mg/dL (70-110)
[2017-09-03] MEDS: Atorvastatin Calcium 80 MG Tablet PO (21:43)
[2017-09-04] MEDS: Levothyroxine 100 MCG Tablet 200 MCG PO (06:09)
[2017-09-04] MEDS: Enoxaparin 40 MG/0.4 ML Syringe SC (06:09)
[2017-09-04] MEDS: Polyethylene Glycol 3350 17 GM PACKET PO (06:09)
[2017-09-04 06:10] VITALS: BP 129/71; PULSE 83
[2017-09-04] MEDS: Senna/Docusate Sodium 1 Tablet 2 TABLET PO ×2 (06:10→17:35)
[2017-09-04] MEDS: Pantoprazole Sodium 20 MG Tablet PO (06:10)
[2017-09-04] MEDS: metroNIDAZOLE 500 MG Tablet PO ×3 (06:10→20:37)
[2017-09-04] MEDS: Fluticasone 0.05% 1 SPRAY NASAL.SRY 2 SPRAY NASAL (06:10)
[2017-09-04] MEDS: Metoprolol Tartrate 100 MG Tablet PO ×2 (06:10→17:36)
[2017-09-04] MEDS: LINAGLIPTIN 5 MG TABLET PO (06:10)
[2017-09-04] MEDS: Lisinopril 2.5 MG Tablet PO (06:10)
[2017-09-04] MEDS: Clopidogrel Bisulfate 75 MG Tablet PO (06:10)
[2017-09-04] MEDS: Furosemide 40 MG/4 ML Vial IV ×2 (06:10→14:41)
[2017-09-04] MEDS: 0.9% NaCl Peripheral Flush Adult/Peds IV (06:11)
[2017-09-04 06:26] LABS: Bedside Glucose 303 mg/dL (70-110)
[2017-09-04] MEDS: Iron Polysaccharide Complex 150 MG CAPSULE PO (07:50)
[2017-09-04] MEDS: Aspirin 81 MG TAB.CHEW PO (07:50)
[2017-09-04] MEDS: Glucerna Shake 120 ML LIQUID PO ×3 (07:50→17:34)
[2017-09-04] MEDS: 0.9% NaCl PICC Flush IV ×2 (08:34→14:42)
--- NOTE | 2017-09-04 10:02 | CASEMGMT ---
Social Work: Insurance: Continued stay approved. Next update is due 09/11/17. Auth#[id number] ALFRED Kee
[2017-09-04 11:21] LABS: Bedside Glucose 378 mg/dL (70-110)
[2017-09-04 15:40] VITALS: BP 124/52; PULSE 67; RESP 18; TEMP 36.7; O2SAT 97
[2017-09-04 16:56] LABS: Bedside Glucose 289 mg/dL (70-110)
[2017-09-04 17:36] VITALS: BP 124/52; PULSE 67
[2017-09-04] MEDS: Clobetasol Propionate 0.05% Cream 1 APPLIC TOPICAL (17:38)
[2017-09-04] MEDS: Atorvastatin Calcium 80 MG Tablet PO (20:37)
[2017-09-04 21:21] LABS: Bedside Glucose 248 mg/dL (70-110)
[2017-09-04 22:29] VITALS: PULSE 66; RESP 18; O2SAT 95
[2017-09-05] MEDS: Fluticasone 0.05% 1 SPRAY NASAL.SRY 2 SPRAY NASAL (04:53)
[2017-09-05] MEDS: Polyethylene Glycol 3350 17 GM PACKET PO (04:54)
[2017-09-05] MEDS: Senna/Docusate Sodium 1 Tablet 2 TABLET PO ×2 (04:54→17:48)
[2017-09-05 04:55] VITALS: BP 158/77; PULSE 86
[2017-09-05] MEDS: LINAGLIPTIN 5 MG TABLET PO (04:55)
[2017-09-05] MEDS: Metoprolol Tartrate 100 MG Tablet PO ×2 (04:55→17:20)
[2017-09-05] MEDS: Clopidogrel Bisulfate 75 MG Tablet PO (04:55)
[2017-09-05] MEDS: Pantoprazole Sodium 20 MG Tablet PO (04:55)
[2017-09-05] MEDS: Levothyroxine 100 MCG Tablet 200 MCG PO (04:55)
[2017-09-05] MEDS: Lisinopril 2.5 MG Tablet PO (04:56)
[2017-09-05] MEDS: metroNIDAZOLE 500 MG Tablet PO ×3 (04:56→21:40)
[2017-09-05] MEDS: Enoxaparin 40 MG/0.4 ML Syringe SC (05:01)
[2017-09-05] MEDS: Furosemide 40 MG/4 ML Vial IV ×2 (06:08→14:42)
[2017-09-05] MEDS: 0.9% NaCl Peripheral Flush Adult/Peds IV ×2 (06:09→14:42)
[2017-09-05 06:51] LABS: Bedside Glucose 360 mg/dL (70-110)
[2017-09-05] MEDS: Aspirin 81 MG TAB.CHEW PO (08:18)
[2017-09-05] MEDS: Iron Polysaccharide Complex 150 MG CAPSULE PO (08:18)
[2017-09-05] MEDS: Clobetasol Propionate 0.05% Cream 1 APPLIC TOPICAL (08:20)
[2017-09-05] MEDS: Glucerna Shake 120 ML LIQUID PO ×2 (08:21→13:18)
--- NOTE | 2017-09-05 09:57 | NURSING ---
pt to dr lewis office via wc with iv infusing. pt has appt at 1000.
[2017-09-05 10:00] VITALS: PULSE 84; RESP 18; O2SAT 94
[2017-09-05] MEDS: 0.9% NaCl PICC Flush IV (10:01)
[2017-09-05] MEDS: 0.9% NaCl IVPB Med Flush (250 mL) 15 ML IV (10:01)
[2017-09-05] MEDS: Ondansetron ODT 4 MG Tablet PO (10:44)
[2017-09-05 10:46] LABS: Bedside Glucose > 500 mg/dL (70-110)
--- NOTE | 2017-09-05 10:48 | RAD_ITS ---
STUDY: X-RAY - ABDOMEN/PELVIS REASON FOR EXAM: Male, 67 years old. Abdominal distention. TECHNIQUE: AP upright and supine abdomen/pelvis imaging, 4 total views. COMPARISON: The abdomen study 08/10/2017 FINDINGS: Unremarkable visualized lower incompletely seen lung bases. Incompletely seen oval small likely cardiac monitoring device overlies the heart shadow. Air and fecal material outlines visualized portions of the colon without air-filled small bowel loop, abnormal air-fluid levels or findings of free peritoneal air noted including subdiaphragmatic region. No abnormal abdomen calcification seen, abdomen is partially obscured by bowel contents. Cholecystomy clips noted, unchanged. The visualized liver, spleen and kidneys are grossly normal in size and morphology. Normal soft tissue structures. Visualized osseous structures appear intact. Fairly severe arterial calcifications noted. RAD/Abd Decub and/or Erect(Portabl IMPRESSION: Nonacute x-ray examination of the abdomen and pelvis. Nonobstructed nonspecific visualized intestinal gas pattern. Fairly severe arteriosclerosis. Electronically Signed: Ihsan Hawk, at 16:21 EDT Tel , Service support ,
--- NOTE | 2017-09-05 10:51 | NURSING ---
pt back from dr's appt and c/o nausea and abd bloating. bs checked and was 560. abd firm and pt c/o pressure like up in diaphram pt reporting having large bm this am. dr. yuan notified and kub ordered and 20 additional units of humalog at this time. bs x4 tinkling. pt reporting that having bloating off and on for years. will recheck bs in hour.
[2017-09-05 11:51] LABS: Bedside Glucose 500 mg/dL (70-110)
[2017-09-05 13:43] LABS: Glucose 526 mg/dL (74-106)
--- NOTE | 2017-09-05 15:03 | MDS.RN ---
Information for the mds was obtained from review of the clinical record, interview of resident, staff, and direct observation of resident's care.
[2017-09-05 15:44] VITALS: BP 122/62; PULSE 86; RESP 20; TEMP 36.6; O2SAT 94
[2017-09-05 17:06] LABS: Bedside Glucose 452 mg/dL (70-110)
[2017-09-05 17:20] VITALS: BP 122/62; PULSE 86
[2017-09-05] MEDS: HYDROcodone Bitartrate/Apap 5/325 Tablet PO ×2 (17:21→23:50)
[2017-09-05 20:51] LABS: Bedside Glucose 381 mg/dL (70-110)
[2017-09-05] MEDS: Atorvastatin Calcium 80 MG Tablet PO (21:40)
[2017-09-05 23:56] LABS: Bedside Glucose 406 mg/dL (70-110)
[2017-09-06 01:10] LABS: Bedside Glucose 376 mg/dL (70-110)
[2017-09-06] MEDS: Pantoprazole Sodium 20 MG Tablet PO (05:46)
[2017-09-06] MEDS: metroNIDAZOLE 500 MG Tablet PO ×3 (05:46→21:34)
[2017-09-06] MEDS: Fluticasone 0.05% 1 SPRAY NASAL.SRY 2 SPRAY NASAL (05:46)
[2017-09-06] MEDS: Levothyroxine 100 MCG Tablet 200 MCG PO (05:47)
[2017-09-06] MEDS: Lisinopril 2.5 MG Tablet PO (05:47)
[2017-09-06] MEDS: Clopidogrel Bisulfate 75 MG Tablet PO (05:47)
[2017-09-06] MEDS: Senna/Docusate Sodium 1 Tablet 2 TABLET PO ×2 (05:48→17:38)
[2017-09-06] MEDS: Enoxaparin 40 MG/0.4 ML Syringe SC (05:48)
[2017-09-06 05:50] VITALS: PULSE 76
[2017-09-06] MEDS: Metoprolol Tartrate 100 MG Tablet PO ×2 (05:50→17:38)
[2017-09-06] MEDS: LINAGLIPTIN 5 MG TABLET PO (05:51)
[2017-09-06] MEDS: HYDROcodone Bitartrate/Apap 5/325 Tablet PO ×2 (05:52→18:36)
[2017-09-06] MEDS: Furosemide 40 MG/4 ML Vial IV ×2 (05:58→14:47)
[2017-09-06] MEDS: 0.9% NaCl Peripheral Flush Adult/Peds IV ×4 (06:08→14:47)
[2017-09-06 07:01] LABS: Bedside Glucose 274 mg/dL (70-110)
[2017-09-06] MEDS: Aspirin 81 MG TAB.CHEW PO (08:08)
[2017-09-06] MEDS: Iron Polysaccharide Complex 150 MG CAPSULE PO (08:08)
[2017-09-06] MEDS: Glucerna Shake 120 ML LIQUID PO ×2 (08:11→17:40)
[2017-09-06] MEDS: 0.9% NaCl IVPB Med Flush (250 mL) 15 ML IV ×2 (09:16→10:37)
[2017-09-06 09:50] VITALS: PULSE 78; RESP 18; O2SAT 96
[2017-09-06 10:07] LABS: Vancomycin, Trough Level 17.4 ug/mL (5.0-15.0)
--- NOTE | 2017-09-06 10:35 | PHA.PHARE_ITS ---
Consult Pharmacy has been consulted to manage selected antiobiotic: Vancomycin Type of Consult: Follow-up Suspected Infection: Osteomyelitis Prior Doses of Antibiotics Received/Current Regimen: Medications Vancomycin HCl 1,500 mg/ (Dextrose) 530 mls @ 260 mls/hr IV Q24H IGNACIO Stop: 09/11/17 12:03 Last Admin: 09/05/17 10:41 Dose: 260 mls/hr Labs: Sodium 133 mmol/L (136-145) L 09/01/17 04:20 Potassium 4.4 mmol/L (3.5-5.1) 09/01/17 04:20 Chloride 96 mmol/L (98-107) L 09/01/17 04:20 Carbon Dioxide 30.0 mmol/L (21.0-32.0) 09/01/17 04:20 Anion Gap 7 (5-15) 09/01/17 04:20 BUN 34 mg/dL (7-18) H 09/01/17 04:20 Creatinine 1.39 mg/dL (0.70-1.30) H 09/01/17 04:20 Est GFR (MDRD) Af Amer 66 mL/min (>60) 09/01/17 04:20 Est GFR (MDRD) Non-Af 54 mL/min (>60) L 09/01/17 04:20 BUN/Creatinine Ratio 24.5 RATIO (10-20) H 09/01/17 04:20 Glucose 526 mg/dL (74-106) H* 09/05/17 12:39 Vancomycin Trough 17.4 ug/mL (5.0-15.0) H 09/06/17 09:25 Microbiology: Microbiology 08/10/17 16:40 Blood Culture (Wb) - Line Draw Blood Culture - Final No growth in 5 days. 08/10/17 17:00 Blood Culture (Wb) - Anticubital Left Blood Culture - Final No growth in 5 days. 08/10/17 18:12 Urine, Clean Catch Urine Culture - Final Presumptive C albicans 08/10/17 17:10 Mucosa - Nasopharyngeal Respiratory Panel (PCR) - Final Weight used for dosin kg Goal Trough: 15-20 mcg/mL Pharmacy Plan for Drug Dosing: Vancomycin trough within goal range. Last day September 11. Continue current regimen , recommend no more trough checks. Pharmacy Service will continue to monitor and adjust dosing as required.
[2017-09-06 11:15] LABS: Bedside Glucose 343 mg/dL (70-110)
[2017-09-06 15:05] LABS: Bedside Glucose 278 mg/dL (70-110)
--- NOTE | 2017-09-06 15:34 | NURSING ---
This nurse left messages for Dr. Pepe and Dr. Thomas about pt's potential discharge date. Will call back if needed.
[2017-09-06 15:51] VITALS: BP 125/63; PULSE 65; RESP 16; TEMP 36.5; O2SAT 94
[2017-09-06 17:01] LABS: Bedside Glucose 285 mg/dL (70-110)
[2017-09-06] MEDS: Clobetasol Propionate 0.05% Cream 1 APPLIC TOPICAL (17:37)
[2017-09-06 17:38] VITALS: PULSE 65
[2017-09-06] MEDS: Calcium Carbonate 500 MG Tablet 1000 MG PO ×2 (18:36→23:00)
[2017-09-06 21:01] LABS: Bedside Glucose 447 mg/dL (70-110)
[2017-09-06] MEDS: Atorvastatin Calcium 80 MG Tablet PO (21:35)
[2017-09-07] MEDS: Enoxaparin 40 MG/0.4 ML Syringe SC (05:47)
[2017-09-07] MEDS: Senna/Docusate Sodium 1 Tablet 2 TABLET PO ×2 (05:48→17:44)
[2017-09-07] MEDS: LINAGLIPTIN 5 MG TABLET PO (05:48)
[2017-09-07 05:49] VITALS: BP 141/65; PULSE 64
[2017-09-07] MEDS: Clopidogrel Bisulfate 75 MG Tablet PO (05:49)
[2017-09-07] MEDS: Metoprolol Tartrate 100 MG Tablet PO ×2 (05:49→17:44)
[2017-09-07] MEDS: Lisinopril 2.5 MG Tablet PO (05:49)
[2017-09-07] MEDS: metroNIDAZOLE 500 MG Tablet PO ×3 (05:49→20:39)
[2017-09-07] MEDS: Levothyroxine 100 MCG Tablet 200 MCG PO (05:49)
[2017-09-07] MEDS: Fluticasone 0.05% 1 SPRAY NASAL.SRY 2 SPRAY NASAL (05:54)
[2017-09-07] MEDS: Furosemide 40 MG/4 ML Vial IV ×2 (05:55→13:42)
[2017-09-07] MEDS: Pantoprazole Sodium 20 MG Tablet PO (05:55)
[2017-09-07] MEDS: Polyethylene Glycol 3350 17 GM PACKET PO (05:56)
[2017-09-07 06:51] LABS: Bedside Glucose 306 mg/dL (70-110)
[2017-09-07] MEDS: Glucerna Shake 120 ML LIQUID PO ×3 (07:50→17:41)
[2017-09-07] MEDS: Aspirin 81 MG TAB.CHEW PO (07:52)
[2017-09-07] MEDS: Iron Polysaccharide Complex 150 MG CAPSULE PO (07:52)
[2017-09-07] MEDS: 0.9% NaCl PICC Flush IV (09:00)
[2017-09-07] MEDS: 0.9% NaCl Peripheral Flush Adult/Peds IV ×2 (09:52→13:42)
[2017-09-07 10:00] VITALS: PULSE 57; RESP 18; O2SAT 94
--- NOTE | 2017-09-07 11:00 | CASEMGMT ---
Social Work Spoke with resident in room. This social services communicating that discharge date has been set for 09/12/17. Resident voicing understanding and is agreeable to discharge date. Resident planning to discharge back to home alone. This social services communicating that physical and occupational therapy, nursing home and home health aide are recommending for resident to continue with services within the home. Resident is agreeable to recommendation and requesting for home health services to now be set up through [facility] (resident has had [facility] in the past ans [facility] is no longer in business). Resident active with [facility] and renal case manager Rosy [phone] has been notified of resident discharge date/plan. Resident reporting to have all needed durable medical equipment within the home. Resident resume aide services through [facility] as well. Resident reporting to not have transportation home and requesting for this social services to set up a wheelchair van transport for resident around 2:00pm. Support given. Telephone call to Caroline, jacquelin. This social services making referral for physical and occupational therapy as well as nursing home and a home health aide. Orders to be faxed when obtained. Clinical information faxed. [facility] reporting to be able to accept resident. Telephone call to Maile/Tosh[facility]. Transportation set up for 09/12/17 @ 1400. Proposed discharge date: 09/12/17 PLAN: Discharge home alone with home health services. Nohemi SYED, RETAIL SPECIAL EVENT ASSOCIATE
[2017-09-07 11:31] LABS: Bedside Glucose 305 mg/dL (70-110)
--- NOTE | 2017-09-07 14:09 | PCM.DC ---
- Discharge Diagnoses Current Active Problems: Current Active and Chronic Problems Sepsis (Acute) Osteomyelitis of foot (Acute) Diabetes mellitus (Chronic) You will use the following diet at home:: No restrictions, Regular Your food should be the consistency of: Regular Your liquids should be the consistency of: Regular/Thin Discharge Activity: Return to Normal Activity, May Shower, Use Walker Weight Bearing Status: Weight bearing as tolerated Call your doctor if you observe: Fever of 101 or Higher, Inability to urinate, Inability to have a bowel movement, Shortness of breath, Chest pain, Uncontrolled pain Allergies/Adverse Reactions: Allergies adhesive Allergy (Verified 02/13/17 14:38) SKIN GETS PULLED OFF SKIN GETS PULLED OFF latex Allergy (Verified 02/13/17 14:38) Hives Medications to take at Discharge Clopidogrel Bisulfate [Plavix] 75 mg PO DAILY 05/15/13 Levothyroxine [Synthroid] 200 mcg PO DAILY 05/15/13 Metoprolol Tartrate [Lopressor (beta ramo)] 100 mg PO BID 05/15/13 Atorvastatin Calcium [Lipitor] 80 mg PO QHS 01/12/16 Pantoprazole Sodium [Protonix] 20 mg PO DAILY 01/12/16 Aspirin [Aspirin, Baby] 81 mg PO DAILY@0800 02/25/16 Furosemide [Lasix] 80 mg PO BID 02/13/17 Polyethylene Glycol 3350 1 pkt PO DAILY PRN 07/27/17 Insulin Aspart [Novolog Flexpen] 30 units SC TIDAC #5 flexpen 09/07/17 Insulin Detemir [Levemir FlexPen] 45 units SC 1000,2200 #5 insuln.pen 09/07/17 Iron Polysaccharide Complex [Ferrex 150] 150 mg PO DAILYCM #30 cap 09/07/17 Linagliptin [Tradjenta] 5 mg PO DAILY #30 tab 09/07/17 Lisinopril [Zestril] 2.5 tab PO DAILY #30 tab 09/07/17 Polyethylene Glycol 3350 [Miralax] 17 gm PO DAILY #30 packet 09/07/17 Potassium Chloride [K-Dur] 20 meq PO DAILYCM #30 tab 09/07/17 The following prescriptions were given: Insulin Aspart [Novolog Flexpen] 30 units SC TIDAC #5 flexpen Insulin Detemir [Levemir FlexPen] 45 units SC 1000,2200 #5 insuln.pen Iron Polysaccharide Complex [Ferrex 150] 150 mg PO DAILYCM #30 cap Linagliptin [Tradjenta] 5 mg PO DAILY #30 tab Lisinopril [Zestril] 2.5 tab PO DAILY #30 tab Polyethylene Glycol 3350 [Miralax] 17 gm PO DAILY #30 packet Potassium Chloride [K-Dur] 20 meq PO DAILYCM #30 tab Primary Care Physician: Johnathan Batres Chi, MD [Primary Care Provider] - Please follow up with your Primary Care Physician in: 1 week. Please Follow Up With: Florencio Redding MD When: 2 weeks. Proposed Discharge Date: 09/12/17
--- NOTE | 2017-09-07 14:13 | HHNOTE_ITS ---
Home Health Note - Plan Overview of reason of hospitalization: The patient is a 67 year old Male with below past medical history hospitalized for sepsis, bilateral foot cellulitis/osteomyelitis, under right foot 5th ray resection, left foot 1st ray resection revision with Dr. Thomas, admitted to TCU for rehabilitation, strengthening, wound care, intravenous antibiotics, prior to discharge home alone. [] Discharge home alone, with Home Health services. Home health ordered. Problems: Patient was seen for Sepsis (Acute) Osteomyelitis of foot (Acute) Diabetes mellitus (Chronic) Complete List of Medical Problems Sepsis (Acute) Osteomyelitis of foot (Acute) Diabetes mellitus (Chronic) Osteomyelitis of right foot (Acute) Hammer toe of right foot (Acute) Non-pressure chronic ulcer of other part of left foot with fat layer exposed ( Chronic) Non-pressure chronic ulcer of other part of right foot with fat layer exposed ( Chronic) PAD (peripheral artery disease) (Chronic) Diabetes mellitus with neuropathy (Chronic) Cellulitis of left foot (Acute) Cellulitis of right foot (Acute) Severe sepsis (Acute) CAD (coronary artery disease) (Chronic) Malnutrition (Chronic) Delayed wound healing (Chronic) Lower extremity edema (Chronic) Chronic ulcer of left foot with fat layer exposed (Chronic) Ulcer of right foot with fat layer exposed (Chronic) Hypertension (Chronic) Hyperlipidemia (Chronic) Hypothyroidism (Chronic) Coronary artery disease (Chronic) Sleep apnea (Chronic) Chronic kidney disease (Chronic) PAOD (peripheral arterial occlusive disease) (Chronic) GERD (gastroesophageal reflux disease) (Chronic) Muscle spasm (Chronic) Osteomyelitis of left foot (Chronic) Type 2 diabetes mellitus with diabetic polyneuropathy (Chronic) Cellulitis of left foot (Acute) Pulmonary hypertension (Chronic) Obstructive sleep apnea (Chronic) Morbid obesity (Chronic) Non compliance with medical treatment (Chronic) Diabetic foot ulcers (Chronic) Aortocoronary bypass status (Chronic) Type II diabetes mellitus, uncontrolled (Chronic) History of esophageal reflux (Chronic) History of hyperlipidemia (Chronic) History of hypertension (Chronic) History of hypothyroidism (Chronic) Macular infarction (Chronic) Peripheral vascular disease (Chronic) - Requirements and Reasons Disciplines Needed/Ordered: Half-Way, Physical Therapy Reason for Disciplines: Disease Specific Monitoring/education, Medication Management/Knowledge Deficit, Wound Care, Gait Training, Stair Training, Fall Prevention, Home Safety/Equipment Instruction, Balance and/or Posture Training, Transfer Training Related To: Limited/Poor Endurance, Physical Impairments, Unsteady Gait/Balance , Fall Risk Patient is unable to leave the home: Without Aid of Supportive Devices (crutches , cane, wheelchair, walker), Without the assistance of another person - Additional Disciplines Additional Disciplines Needed/Ordered: Occupational Therapy, Home Health Aide
--- NOTE | 2017-09-07 14:13 | DS.PCM_ITS ---
Discharge Date and Diagnosis - Problem List Patient Problems: Active and Suspected Problems Sepsis (Acute) Osteomyelitis of foot (Acute) Date of Admission: 08/13/17 Date of Discharge: 09/12/17 - Primary Discharge Diagnosis Active and Suspected Problems Sepsis (Acute) Osteomyelitis of foot (Acute) - Secondary Discharge Diagnosis Chronic Problems Diabetes mellitus (Chronic) Non-pressure chronic ulcer of other part of left foot with fat layer exposed ( Chronic) Non-pressure chronic ulcer of other part of right foot with fat layer exposed ( Chronic) PAD (peripheral artery disease) (Chronic) Diabetes mellitus with neuropathy (Chronic) CAD (coronary artery disease) (Chronic) Malnutrition (Chronic) Delayed wound healing (Chronic) Lower extremity edema (Chronic) Chronic ulcer of left foot with fat layer exposed (Chronic) Ulcer of right foot with fat layer exposed (Chronic) Hypertension (Chronic) Hyperlipidemia (Chronic) Hypothyroidism (Chronic) Coronary artery disease (Chronic) Sleep apnea (Chronic) Chronic kidney disease (Chronic) PAOD (peripheral arterial occlusive disease) (Chronic) GERD (gastroesophageal reflux disease) (Chronic) Muscle spasm (Chronic) Osteomyelitis of left foot (Chronic) Type 2 diabetes mellitus with diabetic polyneuropathy (Chronic) Pulmonary hypertension (Chronic) Obstructive sleep apnea (Chronic) Morbid obesity (Chronic) Non compliance with medical treatment (Chronic) Diabetic foot ulcers (Chronic) Aortocoronary bypass status (Chronic) Type II diabetes mellitus, uncontrolled (Chronic) History of esophageal reflux (Chronic) History of hyperlipidemia (Chronic) History of hypertension (Chronic) History of hypothyroidism (Chronic) Macular infarction (Chronic) Peripheral vascular disease (Chronic) Hospital Course and Treatment Imaging Results: 08/03/17 15:34 Diet: Cardiac: Calorie-Controlled Food consistency:: Regular Liquid Consistency:: Regular/Thin Dietary Modifications:: Fluid Restricted Diet Is pt able to select menu?: Yes Diet Comments: 2000 How many daily calories?: 2000 calorie Clinical Impression(s) from Imaging Studies Chest X-Ray 08/10/17 15:46 IMPRESSION: Left lower lobe atelectasis. Small left pleural effusion. Electronically Signed: Raj Foss MD at 16:21 EST , Service support , KUB X-Ray 08/10/17 16:00 IMPRESSION: Constipation. Electronically Signed: Raj Foss MD at 16:19 EST , Service support , Abdomen X-Ray 09/05/17 10:48 IMPRESSION: Nonacute x-ray examination of the abdomen and pelvis. Nonobstructed nonspecific visualized intestinal gas pattern. Fairly severe arteriosclerosis. Electronically Signed: Ihsan Hawk, at 16:21 EDT Tel , Service support , Labs (Last 48 Hours) 09/05/17 09/05/17 09/05/17 16:53 20:46 23:49 Vancomycin Trough POC Glucose 452 H* 381 H 406 H 09/06/17 09/06/17 09/06/17 01:03 06:44 09:25 Vancomycin Trough 17.4 H POC Glucose 376 H 274 H 09/06/17 09/06/17 09/06/17 11:12 14:58 16:48 Vancomycin Trough POC Glucose 343 H 278 H 285 H 09/06/17 09/07/17 09/07/17 20:51 06:32 11:25 Vancomycin Trough POC Glucose 447 H 306 H 305 H Consultations 08/03/17 Consult: Onc/Wound/utility appraiser Routine Comment: Operations: None Procedures: None Summary of Care Provided: The patient is a 67 year old Male with below past medical history hospitalized for sepsis, bilateral foot cellulitis/osteomyelitis, under right foot 5th ray resection, left foot 1st ray resection revision with Dr. Thomas, admitted to TCU for rehabilitation, strengthening, wound care, intravenous antibiotics, prior to discharge home alone. [] Discharge home alone, with Home Health services. Home health ordered. Discharge Diet: No Restrictions Discharge Activity: Return to Normal Activity, May Shower, Use Walker Weight Bearing Status: Weight bearing as tolerated Call your doctor if you observe: Fever of 101 or Higher, Inability to urinate, Inability to have a bowel movement, Shortness of breath, Chest pain, Uncontrolled pain Home Medications: Medications to take at Discharge Clopidogrel Bisulfate [Plavix] 75 mg PO DAILY 05/15/13 Levothyroxine [Synthroid] 200 mcg PO DAILY 05/15/13 Metoprolol Tartrate [Lopressor (beta ramo)] 100 mg PO BID 05/15/13 Atorvastatin Calcium [Lipitor] 80 mg PO QHS 01/12/16 Pantoprazole Sodium [Protonix] 20 mg PO DAILY 01/12/16 Aspirin [Aspirin, Baby] 81 mg PO DAILY@0800 02/25/16 Furosemide [Lasix] 80 mg PO BID 02/13/17 Polyethylene Glycol 3350 1 pkt PO DAILY PRN 07/27/17 Insulin Aspart [Novolog Flexpen] 30 units SC TIDAC #5 flexpen 09/07/17 Insulin Detemir [Levemir FlexPen] 45 units SC 1000,2200 #5 insuln.pen 09/07/17 Iron Polysaccharide Complex [Ferrex 150] 150 mg PO DAILYCM #30 cap 09/07/17 Linagliptin [Tradjenta] 5 mg PO DAILY #30 tab 09/07/17 Lisinopril [Zestril] 2.5 tab PO DAILY #30 tab 09/07/17 Polyethylene Glycol 3350 [Miralax] 17 gm PO DAILY #30 packet 09/07/17 Potassium Chloride [K-Dur] 20 meq PO DAILYCM #30 tab 09/07/17 Following Prescrptions Were Given to Patient: Insulin Aspart [Novolog Flexpen] 30 units SC TIDAC #5 flexpen Insulin Detemir [Levemir FlexPen] 45 units SC 1000,2200 #5 insuln.pen Iron Polysaccharide Complex [Ferrex 150] 150 mg PO DAILYCM #30 cap Linagliptin [Tradjenta] 5 mg PO DAILY #30 tab Lisinopril [Zestril] 2.5 tab PO DAILY #30 tab Polyethylene Glycol 3350 [Miralax] 17 gm PO DAILY #30 packet Potassium Chloride [K-Dur] 20 meq PO DAILYCM #30 tab Primary Care Physician: Johnathan Batres Chi, MD [Primary Care Provider] - Please follow up with your Primary Care Physician in: 1 week. Please Follow Up With: Florencio Redding MD When: 2 weeks. Disposition: Home with Home Health Minutes spent on discharge:: 35 Patient Condition:: Good Medical Necessity - Tobacco Use Smoking Status: Former smoker Tobacco Use: Non-smoker Meaningful Use Info Meaningful Use Diagnoses (Choose all that apply): None applicable
[2017-09-07 15:49] VITALS: BP 125/61; PULSE 71; RESP 18; TEMP 36.5; O2SAT 98
[2017-09-07 16:55] LABS: Bedside Glucose 130 mg/dL (70-110)
[2017-09-07 17:44] VITALS: BP 125/61; PULSE 71
[2017-09-07] MEDS: Atorvastatin Calcium 80 MG Tablet PO (20:39)
[2017-09-07] MEDS: Calcium Carbonate 500 MG Tablet 1000 MG PO (20:44)
[2017-09-07 21:06] LABS: Bedside Glucose 130 mg/dL (70-110)
[2017-09-08] MEDS: Enoxaparin 40 MG/0.4 ML Syringe SC (05:42)
[2017-09-08] MEDS: Polyethylene Glycol 3350 17 GM PACKET PO (05:42)
[2017-09-08 05:43] VITALS: BP 143/75; PULSE 82
[2017-09-08] MEDS: Lisinopril 2.5 MG Tablet PO (05:43)
[2017-09-08] MEDS: LINAGLIPTIN 5 MG TABLET PO (05:43)
[2017-09-08] MEDS: metroNIDAZOLE 500 MG Tablet PO ×3 (05:43→21:32)
[2017-09-08] MEDS: Senna/Docusate Sodium 1 Tablet 2 TABLET PO ×2 (05:43→17:19)
[2017-09-08] MEDS: Levothyroxine 100 MCG Tablet 200 MCG PO (05:43)
[2017-09-08] MEDS: Pantoprazole Sodium 20 MG Tablet PO (05:43)
[2017-09-08] MEDS: Metoprolol Tartrate 100 MG Tablet PO ×2 (05:43→17:19)
[2017-09-08] MEDS: Clopidogrel Bisulfate 75 MG Tablet PO (05:43)
[2017-09-08] MEDS: Furosemide 40 MG/4 ML Vial IV ×2 (05:46→13:52)
[2017-09-08] MEDS: Fluticasone 0.05% 1 SPRAY NASAL.SRY 2 SPRAY NASAL (05:46)
[2017-09-08 06:06] LABS: Absolute Lymphocyte Count 1.27 X10^3/ul (0.83-4.51); Absolute Neutrophil Count 5.9 X10^3/uL (2.0-7.7); Basophil# 0.11 X10^3/uL; Basophil% 1.2 % (0-1); Eosinophil# 0.79 X10^3/uL; Eosinophils% 8.7 % (0-5); Hematocrit 37.6 % (40-54); Hemoglobin 12.4 g/dl (13.0-16.5); Lymphocyte # 1.27 X10^3/ul (4.0); Mean Corpuscular Hgb 29.7 pg (27.0-32.0); Mean Platelet Vol. 10.1 fl (6.2-12.0); Monocyte# 0.94 X10^3/uL; Monocyte% 10.4 % (0-10); Neutrophil % 65.4 % (47-70); Platelet Count 319 K/mm3 (150-450); RBC Distribution Width CV 14.2 % (11.6-14.6); RBC Distribution Width SD 46.2 fl (35.1-43.9); Red Blood Count 4.18 M/mm3 (4.6-6.2)
[2017-09-08 06:07] LABS: POSITIVE COUNT NO; POSITIVE DIFFERENTIAL NO; POSITIVE MORPHOLOGY NO
[2017-09-08 06:36] LABS: Bedside Glucose 145 mg/dL (70-110)
[2017-09-08 06:40] LABS: Anion Gap 7 (5-15); BUN 32 mg/dL (7-18); BUN/Creat Ratio 28.6 RATIO (10-20); Chloride 100 mmol/L (98-107); Creatinine, Serum 1.12 mg/dL (0.70-1.30); EST Glomerular Filtration Rate 70 mL/min (>60); Est Glom Filt Rate - Afr Amer 85 mL/min (>60); Estimated Creatinine Clearance 70.03 ml/min; Glucose 124 mg/dL (74-106); Potassium 4.1 mmol/L (3.5-5.1); Sodium Level 138 mmol/L (136-145)
[2017-09-08] MEDS: Iron Polysaccharide Complex 150 MG CAPSULE PO (08:17)
[2017-09-08] MEDS: Aspirin 81 MG TAB.CHEW PO (08:17)
[2017-09-08] MEDS: Glucerna Shake 120 ML LIQUID PO ×3 (08:17→17:19)
[2017-09-08] MEDS: 0.9% NaCl IVPB Med Flush (250 mL) 15 ML IV (09:38)
[2017-09-08] MEDS: 0.9% NaCl PICC Flush IV ×2 (09:39→13:52)
[2017-09-08 10:00] VITALS: PULSE 84; RESP 18; O2SAT 95
--- NOTE | 2017-09-08 11:02 | NURSING ---
Pt noted to have redness to top of L foot, redness outlined to monitor for spreading, warm to touch. Soraya HALL notified.
[2017-09-08 11:20] LABS: Bedside Glucose 447 mg/dL (70-110)
--- NOTE | 2017-09-08 12:37 | NURSING ---
pt sugar 447 before lunch, dr yuan notified, new order 10 units novolog x1.
[2017-09-08 12:40] LABS: Bedside Glucose 443 mg/dL (70-110)
[2017-09-08 14:55] VITALS: BP 133/51; PULSE 72; RESP 16; TEMP 36.4; O2SAT 96
--- NOTE | 2017-09-08 15:12 | NURSING ---
Pt dressings changed to bi lateral feet, Per Dr. Garduno Pt tolerated well
[2017-09-08 16:45] LABS: Bedside Glucose 412 mg/dL (70-110)
[2017-09-08 17:19] VITALS: PULSE 72
[2017-09-08 21:06] LABS: Bedside Glucose 470 mg/dL (70-110)
--- NOTE | 2017-09-08 21:10 | NURSING ---
Dr. Batres notified that pts blood sugar is 470 tonight, new order for x1 10 units Novolog.
[2017-09-08] MEDS: Atorvastatin Calcium 80 MG Tablet PO (21:32)
[2017-09-09 03:15] LABS: Bedside Glucose 449 mg/dL (70-110)
[2017-09-09 05:10] VITALS: BP 138/63; PULSE 78
[2017-09-09] MEDS: Lisinopril 2.5 MG Tablet PO (05:10)
[2017-09-09] MEDS: LINAGLIPTIN 5 MG TABLET PO (05:10)
[2017-09-09] MEDS: Metoprolol Tartrate 100 MG Tablet PO ×2 (05:10→17:05)
[2017-09-09] MEDS: Clopidogrel Bisulfate 75 MG Tablet PO (05:10)
[2017-09-09] MEDS: metroNIDAZOLE 500 MG Tablet PO ×3 (05:10→21:32)
[2017-09-09] MEDS: Pantoprazole Sodium 20 MG Tablet PO (05:10)
[2017-09-09] MEDS: Polyethylene Glycol 3350 17 GM PACKET PO (05:10)
[2017-09-09] MEDS: Senna/Docusate Sodium 1 Tablet 2 TABLET PO ×2 (05:10→17:06)
[2017-09-09] MEDS: Fluticasone 0.05% 1 SPRAY NASAL.SRY 2 SPRAY NASAL (05:11)
[2017-09-09] MEDS: Levothyroxine 100 MCG Tablet 200 MCG PO (05:11)
[2017-09-09] MEDS: Enoxaparin 40 MG/0.4 ML Syringe SC (05:12)
[2017-09-09] MEDS: Furosemide 40 MG/4 ML Vial IV ×2 (06:20→13:48)
[2017-09-09] MEDS: 0.9% NaCl Peripheral Flush Adult/Peds IV (06:20)
[2017-09-09 07:06] LABS: Bedside Glucose 378 mg/dL (70-110)
[2017-09-09] MEDS: Glucerna Shake 120 ML LIQUID PO ×2 (07:45→17:08)
[2017-09-09] MEDS: Aspirin 81 MG TAB.CHEW PO (07:50)
[2017-09-09] MEDS: Iron Polysaccharide Complex 150 MG CAPSULE PO (07:50)
--- NOTE | 2017-09-09 11:17 | PCA ---
I was orientating PROPERTY ASSISTANT Dorota, and we were getting his Daily weight with the standing scale, he was sitting in recliner. when he was ready to get up, he pulled himself up really hard, and the seat to standing scale, fell down, i tried to catch it mid-air, but it still bumped his Right knee. after he sat down we looked at it and it didnt make a cara. there was a old scar that was reddish, but he said it wasnt from the scale, he said it was a old scar. he said it didnt hurt it any, he said it was fine, and dont worry about it. I then went out and told RN's Soraya, and also Enoch and Fany were there too.
[2017-09-09 11:26] LABS: Bedside Glucose 275 mg/dL (70-110)
[2017-09-09 15:38] VITALS: BP 116/59; PULSE 60; RESP 20; TEMP 36.6; O2SAT 94
[2017-09-09 17:01] LABS: Bedside Glucose 191 mg/dL (70-110)
[2017-09-09 17:05] VITALS: PULSE 60
[2017-09-09] MEDS: Clobetasol Propionate 0.05% Cream 1 APPLIC TOPICAL (17:08)
[2017-09-09 20:55] LABS: Bedside Glucose 141 mg/dL (70-110)
[2017-09-09] MEDS: Atorvastatin Calcium 80 MG Tablet PO (21:32)
[2017-09-09 21:43] VITALS: BP 127/61; PULSE 60; RESP 18; TEMP 36.8; O2SAT 96
[2017-09-09 21:45] VITALS: PULSE 60; RESP 18; O2SAT 96
[2017-09-10] MEDS: Fluticasone 0.05% 1 SPRAY NASAL.SRY 2 SPRAY NASAL (05:24)
[2017-09-10 05:25] VITALS: BP 143/62; PULSE 85
[2017-09-10] MEDS: Levothyroxine 100 MCG Tablet 200 MCG PO (05:25)
[2017-09-10] MEDS: metroNIDAZOLE 500 MG Tablet PO ×3 (05:25→21:15)
[2017-09-10] MEDS: Clopidogrel Bisulfate 75 MG Tablet PO (05:25)
[2017-09-10] MEDS: Lisinopril 2.5 MG Tablet PO (05:25)
[2017-09-10] MEDS: Metoprolol Tartrate 100 MG Tablet PO ×2 (05:25→16:49)
[2017-09-10] MEDS: Senna/Docusate Sodium 1 Tablet 2 TABLET PO ×2 (05:26→16:48)
[2017-09-10] MEDS: LINAGLIPTIN 5 MG TABLET PO (05:26)
[2017-09-10] MEDS: Polyethylene Glycol 3350 17 GM PACKET PO (05:26)
[2017-09-10] MEDS: Pantoprazole Sodium 20 MG Tablet PO (05:26)
[2017-09-10] MEDS: Enoxaparin 40 MG/0.4 ML Syringe SC (05:28)
[2017-09-10] MEDS: Clobetasol Propionate 0.05% Cream 1 APPLIC TOPICAL ×2 (05:29→16:48)
[2017-09-10] MEDS: Furosemide 40 MG/4 ML Vial IV ×2 (06:05→13:39)
[2017-09-10] MEDS: 0.9% NaCl Peripheral Flush Adult/Peds IV ×4 (06:05→13:39)
[2017-09-10 06:40] LABS: Bedside Glucose 283 mg/dL (70-110)
[2017-09-10 07:00] VITALS: PULSE 85; RESP 20; O2SAT 96
[2017-09-10] MEDS: Aspirin 81 MG TAB.CHEW PO (07:52)
[2017-09-10] MEDS: Iron Polysaccharide Complex 150 MG CAPSULE PO (07:52)
[2017-09-10] MEDS: Glucerna Shake 120 ML LIQUID PO ×3 (07:54→16:51)
[2017-09-10] MEDS: 0.9% NaCl IVPB Med Flush (250 mL) 15 ML IV ×2 (08:57→09:39)
--- NOTE | 2017-09-10 10:12 | NURSING ---
Wound photo: right foot
--- NOTE | 2017-09-10 10:13 | NURSING ---
wound photo: left foot
[2017-09-10 11:11] LABS: Bedside Glucose 437 mg/dL (70-110)
[2017-09-10] MEDS: Calcium Carbonate 500 MG Tablet 1000 MG PO (13:39)
[2017-09-10 15:17] VITALS: BP 126/61; PULSE 74; RESP 18; TEMP 36.4; O2SAT 95
--- NOTE | 2017-09-10 16:00 | CHAPLAIN ---
Type of Pastoral Visit ___ Initial Visit _x__ Follow-up Visit ___ On-call Visit ___ General Patient Visit ___ Spiritual Assessment ___ Family Conference ___ Bereavement ___ Rapid Response ___ Code Blue ___ Other (describe below) Pastoral Care Referral From _x__ Patient ___ Family ___ Nurse ___ Physician ___ Rib Sawyer ___ Group Supervisor Yard ___ Other (describe below) Sacrament/Intervention _x__ Active listening ___ Anointing ___ Orthodox ___ Bereavement ___ Communion ___ Elsa exploration ___ ___ Life review _x__ Prayer ___ Reconciliation ___ Sacrament of Sick _x__ Supportive presence ___ Wedding ___ Other (describe below) Pastoral Comments
[2017-09-10 16:49] VITALS: PULSE 74
[2017-09-10 16:51] LABS: Bedside Glucose 390 mg/dL (70-110)
--- NOTE | 2017-09-10 18:06 | NURSING ---
Dr. Batres reviewed blood sugars, N.O. for x1 dose of Novolog 10 units, pt aware.
[2017-09-10 21:00] LABS: Bedside Glucose 417 mg/dL (70-110)
[2017-09-10] MEDS: HYDROcodone Bitartrate/Apap 5/325 Tablet PO (21:14)
[2017-09-10] MEDS: Atorvastatin Calcium 80 MG Tablet PO (21:15)
[2017-09-11] MEDS: Calcium Carbonate 500 MG Tablet 1000 MG PO (00:30)
[2017-09-11 02:06] LABS: Bedside Glucose 366 mg/dL (70-110)
[2017-09-11] MEDS: Levothyroxine 100 MCG Tablet 200 MCG PO (04:31)
[2017-09-11] MEDS: HYDROcodone Bitartrate/Apap 5/325 Tablet PO ×2 (04:31→20:28)
[2017-09-11] MEDS: Senna/Docusate Sodium 1 Tablet 2 TABLET PO ×2 (04:32→17:39)
[2017-09-11] MEDS: LINAGLIPTIN 5 MG TABLET PO (04:32)
[2017-09-11] MEDS: Lisinopril 2.5 MG Tablet PO (04:32)
[2017-09-11 04:33] VITALS: PULSE 75
[2017-09-11] MEDS: Metoprolol Tartrate 100 MG Tablet PO ×2 (04:33→17:39)
[2017-09-11] MEDS: metroNIDAZOLE 500 MG Tablet PO ×3 (04:33→20:29)
[2017-09-11] MEDS: Fluticasone 0.05% 1 SPRAY NASAL.SRY 2 SPRAY NASAL (04:33)
[2017-09-11] MEDS: Enoxaparin 40 MG/0.4 ML Syringe SC (04:33)
[2017-09-11] MEDS: Pantoprazole Sodium 20 MG Tablet PO (04:33)
[2017-09-11] MEDS: Clopidogrel Bisulfate 75 MG Tablet PO (04:33)
[2017-09-11] MEDS: Furosemide 40 MG/4 ML Vial IV ×2 (06:16→13:34)
[2017-09-11] MEDS: 0.9% NaCl Peripheral Flush Adult/Peds IV ×3 (06:21→13:34)
[2017-09-11 06:35] LABS: Bedside Glucose 284 mg/dL (70-110)
[2017-09-11] MEDS: Glucerna Shake 120 ML LIQUID PO ×3 (08:39→17:37)
[2017-09-11] MEDS: Aspirin 81 MG TAB.CHEW PO (08:41)
[2017-09-11] MEDS: Iron Polysaccharide Complex 150 MG CAPSULE PO (08:41)
[2017-09-11] MEDS: 0.9% NaCl IVPB Med Flush (250 mL) 15 ML IV (09:47)
[2017-09-11 10:00] VITALS: PULSE 78; RESP 18; O2SAT 94
--- NOTE | 2017-09-11 11:13 | CASEMGMT ---
Brief interview for mental status (BIMS) and resident mood interview (PHQ-9) completed on this day. BIMS score 15. PHQ-9 score 08/07
--- NOTE | 2017-09-11 11:14 | CASEMGMT ---
Social Work Discharge information faxed to [facility]. Proposed discharge date: 09/12/17 PLAN: Discharge home alone with home health care and PASSPORT aides. Nohemi SYED, SOLAR APPLICATIONS DEVELOPMENT ENGINEER
[2017-09-11 11:21] LABS: Bedside Glucose 352 mg/dL (70-110)
--- NOTE | 2017-09-11 12:32 | CASEMGMT ---
Insurance Clinical information faxed. Pending continued stay approval at this time. Auth#[id number] Nohemi SYED, MICROFILM DUPLICATING UNIT SUPERVISOR
--- NOTE | 2017-09-11 14:21 | PN.ID_ITS ---
Patient Problems: Active and Suspected Problems Sepsis (Acute) Osteomyelitis of foot (Acute) Subjective: Feeling well, no fever, no n/v/d, feet feeling good. - Physical Exam General: Alert, Cooperative, No apparent distress Lungs: Clear to auscultation, Normal air movement Cardiovascular: Regular rate, Regular Rhythm Abdomen: Soft, Non Tender, Non-Distended Skin: Incision - Bilat feet wrapped Vital Signs Temp Pulse Resp BP Pulse Ox 97.6 F L 75 18 126/61 H 95 09/10/17 15:17 09/11/17 04:33 09/10/17 15:17 09/10/17 15:17 09/10/17 15:17 Oxygen Delivery Method Room Air Weight: 105.45 kg Body Mass Index (BMI) 34.6 Finger Stick Blood Glucose 164 Intake and Output for Last 24 Hours 09/09/17 09/10/17 09/11/17 23:59 23:59 23:59 Intake Total 1206 / 1206 1153 / 1153 1186 / 1186 Output Total 2150 / 2150 1150 / 1150 550 / 550 Balance -944 / -944 636 / 636 POC Glucose 09/11/17 09/11/17 09/11/17 11:14 06:16 01:56 POC Glucose 352 H 284 H 366 H 09/10/17 09/10/17 20:46 16:47 POC Glucose 417 H 390 H Medical Necessity - Tobacco Use Smoking Status: Former smoker Tobacco Use: Non-smoker Route of nutrition/ use of supplements: [] Nutritional Intake: [] IV Site: [] Meng Catheter: [] - Assessment/Plan Antibiotics: [] Assessment/Plan: [] Active and Suspected Problems Sepsis (Acute) Osteomyelitis of foot (Acute) Bilat foot DM osteomyelitis with PVD - recent angioplasty. MRI shows R 5th metatarsal and toe osteo as well as osteo of L foot stump. Surg debridement/ resection done 07/31. Bilat bone cx with serratia and corynebacterium and one also with methicillin-resistant S. hominis. Treated with vanc/ceftriaxone/ flagyl. Plan is for 6 weeks of abx, stop date 09/11/17. Abx stopped today, feet doing well. ID follow up as needed. will sign off, please call with any ?s.
[2017-09-11 15:45] VITALS: BP 103/62; PULSE 77; RESP 18; TEMP 36.6; O2SAT 94
[2017-09-11 16:45] LABS: Bedside Glucose 253 mg/dL (70-110)
[2017-09-11 17:39] VITALS: BP 103/62; PULSE 77
[2017-09-11] MEDS: Atorvastatin Calcium 80 MG Tablet PO (20:29)
[2017-09-11 20:55] LABS: Bedside Glucose 265 mg/dL (70-110)
[2017-09-12] MEDS: HYDROcodone Bitartrate/Apap 5/325 Tablet PO (03:28)
[2017-09-12 03:36] LABS: Bedside Glucose 312 mg/dL (70-110)
[2017-09-12] MEDS: Fluticasone 0.05% 1 SPRAY NASAL.SRY 2 SPRAY NASAL (06:16)
[2017-09-12] MEDS: LINAGLIPTIN 5 MG TABLET PO (06:17)
[2017-09-12] MEDS: Pantoprazole Sodium 20 MG Tablet PO (06:17)
[2017-09-12] MEDS: Clopidogrel Bisulfate 75 MG Tablet PO (06:17)
[2017-09-12] MEDS: Lisinopril 2.5 MG Tablet PO (06:17)
[2017-09-12] MEDS: Levothyroxine 100 MCG Tablet 200 MCG PO (06:17)
[2017-09-12 06:18] VITALS: PULSE 76
[2017-09-12] MEDS: Metoprolol Tartrate 100 MG Tablet PO (06:18)
[2017-09-12] MEDS: Polyethylene Glycol 3350 17 GM PACKET PO (06:18)
[2017-09-12] MEDS: Senna/Docusate Sodium 1 Tablet 2 TABLET PO (06:18)
[2017-09-12] MEDS: Enoxaparin 40 MG/0.4 ML Syringe SC (06:18)
[2017-09-12] MEDS: Furosemide 40 MG/4 ML Vial IV (06:29)
[2017-09-12] MEDS: 0.9% NaCl Peripheral Flush Adult/Peds IV (06:29)
[2017-09-12 06:46] LABS: Bedside Glucose 333 mg/dL (70-110)
[2017-09-12] MEDS: Glucerna Shake 120 ML LIQUID PO (08:10)
[2017-09-12] MEDS: Iron Polysaccharide Complex 150 MG CAPSULE PO (08:10)
[2017-09-12] MEDS: Aspirin 81 MG TAB.CHEW PO (08:11)
--- NOTE | 2017-09-12 08:19 | PN_ITS ---
Subjective: This 67-year-old male with multiple comorbidities as seen bedside this morning status post right fifth ray resection and left revisional first ray resection/ debridement of osteomyelitic bone of the first metatarsal. He denies fever, chill, nausea, vomiting. He is eager to have the rest of the sutures taken out. He is scheduled to get discharged home later today. He denies foot pain. Upon entry into the room, he is walking on his left foot. - Physical Exam General: Alert, Oriented x3, Cooperative HEENT: Atraumatic Extremities: No cyanosis, Capillary Refill Less than 3 Seconds - Digits 1, 2, 3 , 4 right foot and dorsal and plantar left transmetatarsal amputation stump site , No Calf Tenderness, Diminished Peripheral Pulses, Edema - Mild to moderate bilateral lower Skin: Ulcer/ Wound - No purulence, no erythema, no streaking, no odor, no acute infection. The dry callus postoperative surgical site tissue was gently abraded and there remains a 2 mm x 2 mm x 1 mm (predeibridement 1x1x1 mm) 100% beefy red healthy granular tissue ulcer at the previous complex closure apex site. There is no necrosis or deep probing noted. The rest of the incision at the surgical site is a fully healed cicatrix. The left foot sutures were taken out without gapping at most of the surgical site. There is a central skin discontinuity that measures approximately 2.2 cm x 0.3 cm x 0.2 cm ( predebridement 1x1x1 mm) with pale granular base. Overlying callous was noted. There is no deep probing or infection noted. Bilateral lower extremity skin is hairless and atrophic. Musculoskeletal: No Tenderness to Palpation of Joints or Extremities, Muscle Wasting, - - Left transmetatarsal amputation and right fifth ray resection. Negative Rashad and Tenorio sign bilateral. Active range of motion of the ankles noted bilateral Neurological: - - Lack of epicritic sensation light touch bilateral lower extremities consistent with neuropathy Psych/Mental Status: Normal Affect, Appropriate Vital Signs Temp Pulse Resp BP Pulse Ox 97.8 F 76 18 103/62 94 09/11/17 15:45 09/12/17 06:18 09/11/17 15:45 09/11/17 17:39 09/11/17 15:45 Oxygen Delivery Method Room Air Weight: 105.45 kg Body Mass Index (BMI) 34.6 Finger Stick Blood Glucose 164 Intake and Output for Last 24 Hours 09/10/17 09/11/17 09/12/17 23:59 23:59 23:59 Intake Total 1153 / 1153 1486 / 1486 Output Total 1150 / 1150 550 / 550 600 / 600 Balance 936 / 936 -600 / -600 POC Glucose 09/12/17 09/12/17 09/11/17 06:26 03:28 20:48 POC Glucose 333 H 312 H 265 H 09/11/17 09/11/17 16:40 11:14 POC Glucose 253 H 352 H Medical Necessity - Tobacco Use Smoking Status: Former smoker Tobacco Use: Non-smoker Assessment/Plan Status post fifth ray resection right foot with ulcer (fat layer exposed) Status post debridement of osteomyelitis bone of the first metatarsal left foot with ulcer (fat layer exposed) Diabetes with neuropathy Delayed healing Noncompliant Malnutrition Lower extremity chronic edema Other comorbidities I reviewed and discussed his case and care plan. The callus tissue was debrided and all remaining sutures were removed. Subcutaneous excisional debridement with a 15 blade was utilized to remove nonviable and devitalized subcutaneous tissue, fibrous tissue, biofilm, slough. Pressure was applied to maintain hemostasis. He tolerated this well. Verbal consent was obtained and local anesthetic was not needed due to his neuropathic condition. The skin discontinuities were identified and measured as noted in the physical plan. Dressings were applied today. I recommended daily dressing changes with saline moistened Bonnie. Strict nonweightbearing was recommended. Compliance was discussed again today. Continue heel weightbearing bilateral extremities with surgical shoes in place. To use assistive device and wheelchair to keep pressure off the site. To continue compression therapy and elevation of limbs at rest. To continue proper glycemic control nutritional supplementation to optimize healing. Medical management per primary team. It is positive clearance fragments were noted and he has completed anabiotic course as recommended by infectious. Clinically and systemically he does not demonstrate signs of acute infection. I recommend he follows up at the wound care center next Sunday with Dr. Thomas. It is okay to discharge from a podiatry surgical standpoint at this time. I answered all of his questions. He was seen bedside with wound care nurse Jennie. Margaret Thomas, [facility] [phone]
--- NOTE | 2017-09-12 08:19 | PCM.DC.POD ---
Discharge Diet: No Restrictions Discharge Activity: Return to Normal Activity, May Shower, Use Walker Weight Bearing Status: Partial weight bearing - right and left lower extremity with surgical shoes; apply the weight to the heels Keep extremity elevated above heart level: Left Leg, Right Leg Call your doctor if your incision/area has: Continuous Slow Oozing, Sudden Increased Bleeding, Increased Pain/ Swelling, Increased Redness, Foul Smelling Discharge, Swelling at the incision site Call your doctor if you observe: Fever of 101 or Higher, Inability to urinate, Inability to have a bowel movement, Shortness of breath, Chest pain, Uncontrolled pain Cleanse incision/area with: - - change dressing every otherday with jarred to bilateral foot ulcers, cover with well padded gauze and kerlix. secure with duane wraps (start on foot and end at proximal leg) Allergies/Adverse Reactions: Allergies adhesive Allergy (Verified 02/13/17 14:38) SKIN GETS PULLED OFF SKIN GETS PULLED OFF latex Allergy (Verified 02/13/17 14:38) Hives Medications to take at Discharge Clopidogrel Bisulfate [Plavix] 75 mg PO DAILY 05/15/13 Levothyroxine [Synthroid] 200 mcg PO DAILY 05/15/13 Metoprolol Tartrate [Lopressor (beta ramo)] 100 mg PO BID 05/15/13 Atorvastatin Calcium [Lipitor] 80 mg PO QHS 01/12/16 Pantoprazole Sodium [Protonix] 20 mg PO DAILY 01/12/16 Aspirin [Aspirin, Baby] 81 mg PO DAILY@0800 02/25/16 Furosemide [Lasix] 80 mg PO BID 02/13/17 Polyethylene Glycol 3350 1 pkt PO DAILY PRN 07/27/17 Insulin Aspart [Novolog Flexpen] 30 units SC TIDAC #5 flexpen 09/07/17 Insulin Detemir [Levemir FlexPen] 45 units SC 1000,2200 #5 insuln.pen 09/07/17 Iron Polysaccharide Complex [Ferrex 150] 150 mg PO DAILYCM #30 cap 09/07/17 Linagliptin [Tradjenta] 5 mg PO DAILY #30 tab 09/07/17 Lisinopril [Zestril] 2.5 tab PO DAILY #30 tab 09/07/17 Polyethylene Glycol 3350 [Miralax] 17 gm PO DAILY #30 packet 03/30/18 Potassium Chloride [K-Dur] 20 meq PO DAILYCM #30 tab 09/07/17 The following prescriptions were given: Insulin Aspart [Novolog Flexpen] 30 units SC TIDAC #5 flexpen Insulin Detemir [Levemir FlexPen] 45 units SC 1000,2200 #5 insuln.pen Iron Polysaccharide Complex [Ferrex 150] 150 mg PO DAILYCM #30 cap Linagliptin [Tradjenta] 5 mg PO DAILY #30 tab Lisinopril [Zestril] 2.5 tab PO DAILY #30 tab Polyethylene Glycol 3350 [Miralax] 17 gm PO DAILY #30 packet Potassium Chloride [K-Dur] 20 meq PO DAILYCM #30 tab Primary Care Physician: Johnathan Batres Chi, MD [Primary Care Provider] - Please follow up with your Primary Care Physician in: 1 week. Please Follow Up With: Florencio Redding MD When: 2 weeks. Please Follow Up With: Dr. Batres PCP When: 1 week Please Follow Up With: Margaret Thomas DPM When: 1 week at the wound care center; call to confirm appointment time Proposed Discharge Date: 09/12/17
--- NOTE | 2017-09-12 08:33 | CASEMGMT ---
Insurance Continued stay approved until day of discharge, 09/12/17. Auth#[id number] Nohemi SYED, INSTITUTIONAL ASSET MANAGER
--- NOTE | 2017-09-12 09:53 | NURSING ---
wound photo: left foot
--- NOTE | 2017-09-12 09:54 | NURSING ---
wound photo: right foot
[2017-09-12 11:46] LABS: Bedside Glucose 237 mg/dL (70-110)
[2017-09-12 13:18] VITALS: BP 127/65; PULSE 73; RESP 16; TEMP 36.4; O2SAT 95
[2017-09-12 13:56] VITALS: RESP 18
--- NOTE | 2017-09-12 17:09 | CASEMGMT ---
Insurance Notified insurance of resident discharge of 09/12/17 to home alone with home health services and PASSPORT services. Auth#[id number] Nohemi SYED, CONSTRUCTION ECONOMIST
== END 2017-09-12 14:04 | disposition home health service (06) | DRG 559 ==
PROVIDERS: Internal Medicine Infectious Disease; Podiatrist; Admitting Provider Family Medicine Geriatric Medicine; Family Provider Family Medicine Geriatric Medicine; PCP Family Medicine Geriatric Medicine; Visit Provider Family Medicine Geriatric Medicine
DX: Z47.81 Encounter for orthopedic aftercare following surgical amputation (principal); A41.9 Sepsis, unspecified organism; E11.22 Type 2 diabetes mellitus with diabetic chronic kidney disease; E11.42 Type 2 diabetes mellitus with diabetic polyneuropathy; M86.171 Other acute osteomyelitis, right ankle and foot; E66.01 Morbid (severe) obesity due to excess calories; I27.20 Pulmonary hypertension, unspecified; I50.22 Chronic systolic (congestive) heart failure; M86.172 Other acute osteomyelitis, left ankle and foot; I13.0 Hypertensive heart and chronic kidney disease with heart failure and stage 1 through stage 4 chronic kidney disease, or unspecified chronic kidney disease; L03.115 Cellulitis of right lower limb; B37.49 Other urogenital candidiasis; E11.51 Type 2 diabetes mellitus with diabetic peripheral angiopathy without gangrene; E11.69 Type 2 diabetes mellitus with other specified complication; K21.9 Gastro-esophageal reflux disease without esophagitis; Z89.431 Acquired absence of right foot; Z89.432 Acquired absence of left foot; D50.9 Iron deficiency anemia, unspecified; E03.9 Hypothyroidism, unspecified; I25.10 Atherosclerotic heart disease of native coronary artery without angina pectoris; E78.5 Hyperlipidemia, unspecified; N18.9 Chronic kidney disease, unspecified; Z68.34 Body mass index [BMI] 34.0-34.9, adult; Z71.3 Dietary counseling and surveillance; G47.33 Obstructive sleep apnea (adult) (pediatric); E11.65 Type 2 diabetes mellitus with hyperglycemia; Z91.19 Patient's noncompliance with other medical treatment and regimen; Z79.02 Long term (current) use of antithrombotics/antiplatelets; Z79.899 Other long term (current) drug therapy; Z79.82 Long term (current) use of aspirin; Z79.4 Long term (current) use of insulin; Z87.891 Personal history of nicotine dependence; Z95.1 Presence of aortocoronary bypass graft; Z86.14 Personal history of Methicillin resistant Staphylococcus aureus infection; E87.6 Hypokalemia; R21 Rash and other nonspecific skin eruption
CPT/HCPCS: 36415; 36569; 71045; 71046; 74018; 74019; 80048; 80202; 81001; 82947; 82962; 83880; 85025; 85652; 86140; 87040; 87086; 87088; 87633; 97110; 97162; 97165; 97530; 97535; 97542; 97802; J7040; J7050; A4216; J0696; J1940

== ENCOUNTER → 2017-09-26 11:09 | Outpatient (CLI) | payer MEDICARE, SELFPAY ==
--- NOTE | 2017-09-26 11:56 | RAD_ITS ---
STUDY: X-RAY - ACUTE ABDOMINAL SERIES REASON FOR EXAM: Male, 67 years old. Abdominal pain and distention TECHNIQUE: Single view of the chest. Supine, and erect view(s) of the abdomen were obtained. COMPARISON: Abdomen radiographs dated September 05, 2017; chest radiographs dated August 10, 2017 FINDINGS: The lungs are adequately expanded. There is stable scarring in the left lung base. There is no demonstrated pleural abnormality. The cardiac silhouette is normal in size. There may be calcified lymph nodes in the right hilum. Sternotomy wires are present. The pulmonary arteries are unremarkable. There are vascular calcifications in the thoracic aorta. A stent projects over the right heart. The bowel gas pattern is unremarkable. There is no demonstrated abnormality of the major organs. Cholecystectomy clips are present. Phleboliths are stable in the lower pelvis. There are scattered vascular calcifications. There are mild degenerative changes in the spine. There is minimal levoscoliosis of the lumbar spine. RAD/Abd Inc Decub and/or Erect IMPRESSION: No acute abnormalities are seen in the chest, abdomen or pelvis. Electronically Signed: Josefina Vaughan MD at 11:52 EDT Tel Direct: [phone], Service support ,
[2017-09-26 13:14] LABS: Absolute Lymphocyte Count 1.01 X10^3/ul (0.83-4.51); Absolute Neutrophil Count 6.5 X10^3/uL (2.0-7.7); Basophil# 0.05 X10^3/uL; Basophil% 0.6 % (0-1); Eosinophil# 0.22 X10^3/uL; Eosinophils% 2.6 % (0-5); Hematocrit 41.2 % (40-54); Hemoglobin 14.2 g/dl (13.0-16.5); Lymphocyte # 1.01 X10^3/ul (4.0); Lymphocyte % 11.8 % (19-41); Mean Corp Hgb Conc 34.5 g/gl (32-36); Mean Corpuscular Hgb 30.4 pg (27.0-32.0); Mean Corpuscular Volume 88.2 fL (80-94); Mean Platelet Vol. 11.5 fl (6.2-12.0); Monocyte# 0.75 X10^3/uL; Monocyte% 8.8 % (0-10); Neutrophil # 6.49 X10^3/uL (2.7-7.7); Platelet Count 281 K/mm3 (150-450); RBC Distribution Width SD 44.6 fl (35.1-43.9); Red Blood Count 4.67 M/mm3 (4.6-6.2); White Blood Count 8.5 K/mm3 (4.4-11.0)
[2017-09-26 13:15] LABS: POSITIVE COUNT NO; POSITIVE DIFFERENTIAL NO; POSITIVE MORPHOLOGY NO
[2017-09-26 13:48] LABS: ALB/GLOB Ratio 0.9 RATIO (0.9-2.4); AST(SGOT) 29 U/L (15-37); Alanine Aminotransfer ALT/SGPT 43 U/L (16-61); Albumin, Serum 3.3 g/dL (3.2-5.0); Alkaline Phosphatase 92 U/L (45-117); Anion Gap 11 (5-15); BUN 49 mg/dL (7-18); BUN/Creat Ratio 30.1 RATIO (10-20); Calcium,Total 8.6 mg/dL (8.5-10.1); Chloride 93 mmol/L (98-107); Creatinine, Serum 1.63 mg/dL (0.70-1.30); EST Glomerular Filtration Rate 45 mL/min (>60); Est Glom Filt Rate - Afr Amer 55 mL/min (>60); Globulin 3.6 g/dL (2.2-4.2); Glucose 450 mg/dL (74-106); Potassium 4.7 mmol/L (3.5-5.1); Protein, Total 6.9 g/dL (6.4-8.2); Sodium Level 133 mmol/L (136-145); Thyroid Stim Hormone (TSH) 0.83 uIU/mL (0.358-3.74)
[2017-09-26 13:49] LABS: Vitamin D,25 Hydroxy 20.7 ng/mL (29.95-100.01)
== END ==
PROVIDERS: Family Provider Family Medicine Geriatric Medicine; PCP Family Medicine Geriatric Medicine; Visit Provider Family Medicine Geriatric Medicine
DX: E11.9 Type 2 diabetes mellitus without complications (principal); E55.9 Vitamin D deficiency, unspecified; I10 Essential (primary) hypertension; R10.9 Unspecified abdominal pain
CPT/HCPCS: 36415; 74019; 80053; 82306; 84443; 85025

== ENCOUNTER 2017-10-03 14:00 | Outpatient (RCR) | payer MEDICARE, SELFPAY ==
[2017-09-26 14:01] VITALS: BP 133/66; PULSE 80; RESP 18; TEMP 36.1
--- NOTE | 2017-09-26 15:37 | PCM.WC.PN ---
(1) Chronic ulcer of left foot with fat layer exposed Status: Chronic Current Visit: Yes Code(s): L97.522 - Non-pressure chronic ulcer of other part of left foot with fat layer exposed (2) Diabetes mellitus with neuropathy Status: Chronic Current Visit: Yes Qualifiers: Diabetes mellitus type: type 2 Code(s): E11.40 - Type 2 diabetes mellitus with diabetic neuropathy, unspecified (3) Malnutrition Status: Chronic Current Visit: Yes Code(s): E46 - Unspecified protein-calorie malnutrition (4) Delayed wound healing Status: Chronic Current Visit: Yes Code(s): T14.8 - Other injury of unspecified body region (5) Lower extremity edema Status: Chronic Current Visit: Yes Code(s): R60.0 - Localized edema (6) Type 2 diabetes mellitus with diabetic polyneuropathy Status: Chronic Current Visit: Yes Code(s): E11.42 - Type 2 diabetes mellitus with diabetic polyneuropathy (7) Non compliance with medical treatment Status: Chronic Current Visit: Yes Code(s): Z91.19 - Patient's noncompliance with other medical treatment and regimen (8) Peripheral vascular disease Status: Chronic Current Visit: Yes Code(s): I73.9 - Peripheral vascular disease, unspecified Type of Wound Date of Service: 09/27/17 Chief Complaint: right foot wound-healed. Left foot wound History of Wound: This 67-year-old male who was seen today for right and left foot ulcerations. He is recent status post fifth ray resection of the right lower extremity revisional bone excision culture of the left first metatarsal. His surgical intervention was followed by a prolonged stay at the transitional care unit to assist with rehabilitation and recovery. He denies fever, chill, nausea, vomiting, loss of appetite. He also had previous vascular surgery intervention with Dr. Redding on February 14, 2017 including angiogram of the left SFA with a stent to the proximal popliteal. He did recently follow up with Dr. Redding as advised. His leg swelling has decreased. Progress of Wound: Improved left. Healed right - Physical Exam Vital Signs Temp Pulse Resp BP 97 F L 80 18 133/66 H 09/26/17 14:01 09/26/17 14:01 09/26/17 14:01 09/26/17 14:01 General: Alert, Oriented x3, Cooperative Extremities: Capillary Refill Less than 3 Seconds, No Calf Tenderness, Diminished Peripheral Pulses Skin: Ulcer/ Wound - No purulence, no erythema, streaking, no odor, no acute infection bilateral lower extremities. There is full epithelialization noted to the right foot and the site has healed. The previous left foot ulcer site has healed and the wound that was debrided and evaluated today is the plantar proximalmost aspect of the previous incision site from his most recent surgery. There is only granulation tissue exposed and no probe to deep tissues or structures. Wound Measurements and Assessment WC - Nurse 1 - General Ulcer Measurement Start: 09/26/17 13:51 Freq: Status: Active Protocol: Activity Type Activity Date Activity User E-Sign Co-Sign Detail Recorded Client Recorded Date Recorded By Document 09/26/17 14:01 RB [id number] 09/26/17 14:08 RB 09/26/17 14:01 Wound Center Nurse 1 [Ulcer Assessment] #18 Left plantar foot -Combined with other wound No -Current Size (cm) - Length 2 -Current Size (cm) - Width 0.1 -Current Size (cm) - Depth 0.3 -Total Square Cm 0.2 -Photo Taken Yes -Tunneling No -Undermining/Tunneling No -Circular Undermining No -Classification - Thickness Full Thickness without Exposed Support Structure -Exudate Amt Small (1-33%) -Exudate Type Serosanguineous -Wound Margin Thickened -Granulation Amt Medium (34-66%) -Granulation Quality [place] -Slough/Fibrin Yes -Necrosis Amt Large (67-100%) -Necrotic Tissue Type Adherent Slough -Structure Exposed N/A -Texture (Maggy-wound Skin Appearance) Callus -Moisture (Maggy-wound Skin Appearance Assessed ) -Color (Maggy-wound Skin Appearance) Assessed -Temperature (Maggy-wound Skin No Abnormality Appearance) (Pt Warm) -Tenderness on Palpation (Maggy-wound No Skin Appearance) -Ulcer Cleansing Rinsed/ Irrigated with Saline -Foul Odor after Cleansing No -Anesthetic Used 5% Lidocaine Gel [Edema Assessment] -Lower Limb Edema Present Yes -Right Calf (cm) 36 -Right Ankle (cm) 20.8 -Left Calf (cm) 36 -Left Ankle (cm) 20.5 [id number] - Nurse 2 - General Ulcer CM Notes Start: 09/26/17 13:51 Freq: Status: Active Protocol: Activity Type Activity Date Activity User E-Sign Co-Sign Detail Recorded Client Recorded Date Recorded By Document 09/26/17 14:37 [id number] 09/26/17 14:45 09/26/17 14:37 Wound Center Nurse 2 [Procedure/Treatment] #18 Left plantar foot -Time 14:38 -Correct Patient Yes -Correct Side, Site, Position Yes -Correct Procedure Yes -Procedure Performed Yes -Type of Procedure Debridement -Clinical Debridement Subcutaneous -Post Debridement Size (cm) - Length 2.1 -Post Debridement Size (cm) - Width 0.2 -Post Debridement Size (cm) - Depth 0.3 -Total Square Cm 0.42 -Wound/Ulcer Outcome Not Healed -Ulcer Cleansing Rinsed/ Irrigated with Saline -Foul Odor after Cleansing No -Bioengineered Tissue No -Topical Lidocaine (%) 4 -Bleeding Controlled with Pressure -Treatment Response Procedure Tolerated Well [See Physician Procedure note for Specifics] Pain Scale: 0-10 Numeric [Pain] -Is Patient Pain Free? 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 Neurological: - - Lack of epicritic sensation light touch bilateral lower extremities Psych/Mental Status: Normal Affect, Appropriate Debridement Note Post-Debridement Measurements/Treatment WC - Nurse 2 - General Ulcer CM Notes Start: 09/26/17 13:51 Freq: Status: Active Protocol: Activity Type Activity Date Activity User E-Sign Co-Sign Detail Recorded Client Recorded Date Recorded By Document 09/26/17 14:37 [id number] 09/26/17 14:45 09/26/17 14:37 Wound Center Nurse 2 #18 Left plantar foot -Time 14:38 -Correct Patient Yes -Correct Side, Site, Position Yes -Correct Procedure Yes -Procedure Performed Yes -Type of Procedure Debridement -Clinical Debridement Subcutaneous -Post Debridement Size (cm) - Length 2.1 -Post Debridement Size (cm) - Width 0.2 -Post Debridement Size (cm) - Depth 0.3 -Total Square Cm 0.42 -Wound/Ulcer Outcome Not Healed -Ulcer Cleansing Rinsed/ Irrigated with Saline -Foul Odor after Cleansing No -Bioengineered Tissue No -Topical Lidocaine (%) 4 -Bleeding Controlled with Pressure -Treatment Response Procedure Tolerated Well Pain Scale: 0-10 Numeric Is Patient Pain Free? Yes Wound debrided: plantar foot Laterality: Left Wound Grade/Stage: grade 1 Type of Debridement: Excisional debridement Anesthesia Used: 4% Lidocaine Solution Depth: in the subcutaneous layer Percentage of wound debrided: 100 Instrument Used: #15 blade Tissue Removed: fibrous, devitalized subcutaneous, biofilm, slough Severity: Fat Layer Exposed Amount of bleeding with debridement: Mild Bleeding Controlled with: Pressure Patient tolerated procedure well Assessment/Plan Active Problems Chronic ulcer of left foot with fat layer exposed (Chronic) Diabetes mellitus with neuropathy (Chronic) Malnutrition (Chronic) Delayed wound healing (Chronic) Lower extremity edema (Chronic) Type 2 diabetes mellitus with diabetic polyneuropathy (Chronic) Non compliance with medical treatment (Chronic) Peripheral vascular disease (Chronic) Assessment: Right foot ulcers and surgery sites are healed today. Plantar foot left, grade 1. peripheral vascular disease with recent intervention. diabetes with neuropathy. malnutrition. foot deformities: hammer toe right foot and equinus. non compliance history Plan: Discussed case and plan. He continues on a complex wound care plan due to challenges with compliance. He understands he is at risk for continued limb loss. I performed debridement as noted above including subcutaneous at the aformentioned different multiple wound sites and including the subcutaneous tissue the left foot. Saline moistened jarred was applied; to change daily. Home health will be reactivated. . To offload: continue heel weight bear with offloading surgical shoes left; additional fell offloading material was fabricated today to take pressure off his ulcer site. To use walker and wheelchair and home office chair. To weight-bear as tolerated in the right surgical shoe. Upon left ulcer closure he will be reintroduced to extra-depth diabetic shoes with a toe filler and dual density Plastizote liners. To optimize healing with balanced diet and proper glycemic control. To continue Glucerna. His non invasive vascular studies were previously reviewed and he had angio with stent to left lower extremity with Dr. Redding. To follow up as advised. He did recently follow-up in the notes will be requested. It is noted he had a previous left procedures performed by Dr. Redding. He was reassured there are no acute signs of infection today. Continue compression dressings and elevation. Tubigrip applied. Return to clinic in 1 week or call immediately if worsening signs of infection signs are noted.
[2017-10-03 13:47] VITALS: BP 106/53; PULSE 58; RESP 16; TEMP 35.3
--- NOTE | 2017-10-03 15:38 | PN.PCM_ITS ---
(1) Chronic ulcer of left foot with fat layer exposed Status: Chronic Current Visit: Yes Code(s): L97.522 - Non-pressure chronic ulcer of other part of left foot with fat layer exposed (2) Diabetes mellitus with neuropathy Status: Chronic Current Visit: Yes Qualifiers: Diabetes mellitus type: type 2 Code(s): E11.40 - Type 2 diabetes mellitus with diabetic neuropathy, unspecified (3) Malnutrition Status: Chronic Current Visit: Yes Code(s): E46 - Unspecified protein- calorie malnutrition (4) Delayed wound healing Status: Chronic Current Visit: Yes Code(s): T14.8 - Other injury of unspecified body region (5) Lower extremity edema Status: Chronic Current Visit: Yes Code(s): R60.0 - Localized edema (6) Type 2 diabetes mellitus with diabetic polyneuropathy Status: Chronic Current Visit: Yes Code(s): E11.42 - Type 2 diabetes mellitus with diabetic polyneuropathy (7) Non compliance with medical treatment Status: Chronic Current Visit: Yes Code(s): Z91.19 - Patient's noncompliance with other medical treatment and regimen (8) Peripheral vascular disease Status: Chronic Current Visit: Yes Code(s): I73.9 - Peripheral vascular disease, unspecified Type of Wound Date of Service: 10/05/17 Chief Complaint: right foot wound-healed. Left foot wound History of Wound: This 67-year-old male who was seen today for right and left foot ulcerations. He is recent status post fifth ray resection of the right lower extremity revisional bone excision culture of the left first metatarsal. He denies fever, chill, nausea, vomiting, loss of appetite. He also had previous vascular surgery intervention with Dr. Redding on February 14, 2017 including angiogram of the left SFA with a stent to the proximal popliteal. He did follow up with Dr. Redding as advised. His leg swelling has decreased. Progress of Wound: Improved left. 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 The wound bed is granular. The right foot is healed and there is full epithelialization. His skin is atrophic bilateral Wound Measurements and Assessment WC - Nurse 1 - General Ulcer Measurement Start: 09/26/17 13:51 Freq: Status: Active Protocol: Activity Type Activity Date Activity User E-Sign Co-Sign Detail Recorded Client Recorded Date Recorded By Document 10/03/17 13:47 TN [id number] 10/03/17 14:04 TN 10/03/17 13:47 Wound Center Nurse 1 [Ulcer Assessment] #18 Left plantar foot -Combined with other wound No -Current Size (cm) - Length 1.2 -Current Size (cm) - Width 0.1 -Current Size (cm) - Depth 0.2 -Total Square Cm 0.12 -Photo Taken No -Epithelialization None Present -Tunneling No -Undermining/Tunneling No -Circular Undermining No -Classification - Thickness Full Thickness without Exposed Support Structure -Change in Wound Grade/Stage No Query Text:If change please identify the Stage/Grade in the comment (ie. S2 G3) -Exudate Amt Small (1-33%) -Exudate Type Sanguineous -Wound Margin Fibrotic Scar, Thickened Scar -Granulation Amt None Present (0 %) -Slough/Fibrin Yes -Necrosis Amt Small (1-33%) -Necrotic Tissue Type Adherent Slough -Structure Exposed None/Limited to Skin Breakdown -Texture (Maggy-wound Skin Appearance) Assessed Callus -Moisture (Maggy-wound Skin Appearance Assessed ) Dry/Scaly -Color (Maggy-wound Skin Appearance) Assessed -Temperature (Maggy-wound Skin No Abnormality Appearance) (Pt Warm) -Tenderness on Palpation (Maggy-wound No Skin Appearance) -Ulcer Cleansing Wound Cleanser -Foul Odor after Cleansing No -Anesthetic Used 5% Lidocaine Gel [Edema Assessment] -Lower Limb Edema Present No -Left Calf (cm) 35 -Left Ankle (cm) 21.4 WC - Nurse 2 - General Ulcer CM Notes Start: 09/26/17 13:51 Freq: Status: Active Protocol: Activity Type Activity Date Activity User E-Sign Co-Sign Detail Recorded Client Recorded Date Recorded By Document 10/03/17 14:13 [id number] 10/03/17 14:20 10/03/17 14:13 Wound Center Nurse 2 [Procedure/Treatment] #18 Left plantar foot -Time 14:14 -Correct Patient Yes -Correct Side, Site, Position Yes -Correct Procedure Yes -Procedure Performed Yes -Type of Procedure Debridement -Clinical Debridement Subcutaneous -Post Debridement Size (cm) - Length 2.0 -Post Debridement Size (cm) - Width 0.3 -Post Debridement Size (cm) - Depth 0.2 -Total Square Cm 0.60 -Wound/Ulcer Outcome Not Healed -Ulcer Cleansing Rinsed/ Irrigated with Saline -Foul Odor after Cleansing No -Bioengineered Tissue No -Bleeding Controlled with Pressure -Treatment Response Procedure Tolerated Well [See Physician Procedure note for Specifics] Pain Scale: 0-10 Numeric [Pain] -Is Patient Pain Free? Yes Musculoskeletal: No Tenderness to Palpation of Joints or Extremities, Muscle Wasting Neurological: - - Lack of epicritic sensation light touch bilateral lower extremities Psych/Mental Status: Normal Affect, Appropriate Debridement Note Post-Debridement Measurements/Treatment WC - Nurse 2 - General Ulcer CM Notes Start: 09/26/17 13:51 Freq: Status: Active Protocol: Activity Type Activity Date Activity User E-Sign Co-Sign Detail Recorded Client Recorded Date Recorded By Document 09/26/17 14:37 [id number] 09/26/17 14:45 Document 10/03/17 14:13 [id number] 10/03/17 14:20 09/26/17 10/03/17 14:37 14:13 Wound Center Nurse 2 #18 Left plantar foot -Time 14:38 14:14 -Correct Patient Yes Yes -Correct Side, Site, Position Yes Yes -Correct Procedure Yes Yes -Procedure Performed Yes Yes -Type of Procedure Debridement Debridement -Clinical Debridement Subcutaneous Subcutaneous -Post Debridement Size (cm) - Length 2.1 2.0 -Post Debridement Size (cm) - Width 0.2 0.3 -Post Debridement Size (cm) - Depth 0.3 0.2 -Total Square Cm 0.42 0.60 -Wound/Ulcer Outcome Not Healed Not Healed -Ulcer Cleansing Rinsed/ Rinsed/ Irrigated with Irrigated with Saline Saline -Foul Odor after Cleansing No No -Bioengineered Tissue No No -Topical Lidocaine (%) 4 -Bleeding Controlled with Pressure Pressure -Treatment Response Procedure Procedure Tolerated Well Tolerated Well Pain Scale: 0-10 Numeric Is Patient Pain Free? Yes Yes Wound debrided: plantar foot Laterality: Left Wound Grade/Stage: grade 1 Type of Debridement: Excisional debridement Anesthesia Used: 4% Lidocaine Solution Depth: in the subcutaneous layer Percentage of wound debrided: 100 Instrument Used: #15 blade Tissue Removed: fibrous, devitalized subcutaneous, biofilm, slough, callous peripheral Severity: Fat Layer Exposed Amount of bleeding with debridement: Mild Bleeding Controlled with: Pressure Patient tolerated procedure well Assessment/Plan Active Problems Chronic ulcer of left foot with fat layer exposed (Chronic) Diabetes mellitus with neuropathy (Chronic) Malnutrition (Chronic) Delayed wound healing (Chronic) Lower extremity edema (Chronic) Type 2 diabetes mellitus with diabetic polyneuropathy (Chronic) Non compliance with medical treatment (Chronic) Peripheral vascular disease (Chronic) Assessment: Right foot ulcers and surgery sites are healed today. Plantar foot left, grade 1. peripheral vascular disease with recent intervention. diabetes with neuropathy. malnutrition. foot deformities: hammer toe right foot and equinus. non compliance history Plan: Discussed case and plan. He continues on a complex wound care plan due to challenges with compliance. He understands he is at risk for continued limb loss. I performed debridement as noted above including subcutaneous at the aformentioned different multiple wound sites and including the subcutaneous tissue the left foot. Saline moistened jarred was applied; to change daily. To offload: continue heel weight bear with offloading surgical shoes left; additional fell offloading material was further adjusted today to take pressure off his ulcer site. To use walker and wheelchair and home office chair. To weight-bear as tolerated in the right surgical shoe and to progress into extra- depth diabetic shoe with offloading Plastizote insoles that he already has at home. He was advised to bring this with him to his follow-up next week as well. Upon left ulcer closure he will be reintroduced to extra-depth diabetic shoes with a toe filler and dual density Plastizote liners. To optimize healing with balanced diet and proper glycemic control. To continue Glucerna. His non invasive vascular studies were previously reviewed and he had angio with stent to left lower extremity with Dr. Redding. To follow up as advised. He did recently follow-up in the notes will be requested. It is noted he had a previous left procedures performed by Dr. Redding. He was reassured there are no acute signs of infection today. Continue compression dressings and elevation. Tubigrip applied. Return to clinic in 1 week or call immediately if worsening signs of infection signs are noted.
== END 2017-10-08 23:59 ==
LOC: WC 14:00
PROVIDERS: Family Provider Family Medicine Geriatric Medicine; PCP Family Medicine Geriatric Medicine; Visit Provider Podiatrist
DX: E11.621 Type 2 diabetes mellitus with foot ulcer (principal); E55.9 Vitamin D deficiency, unspecified; R10.9 Unspecified abdominal pain; I10 Essential (primary) hypertension; E11.42 Type 2 diabetes mellitus with diabetic polyneuropathy; B35.1 Tinea unguium; R60.0 Localized edema; L97.522 Non-pressure chronic ulcer of other part of left foot with fat layer exposed; Z91.19 Patient's noncompliance with other medical treatment and regimen
CPT/HCPCS: 11042; 11721; 36415; 74019; 80053; 82306; 84443; 85025; 99213; G0463

== ENCOUNTER 2017-10-18 13:30 | Outpatient (RCR) | payer MEDICARE, SELFPAY ==
[2017-10-09 01:10] VITALS: PULSE 58; RESP 16; TEMP 35.3
[2017-10-10 13:47] VITALS: BP 129/52; PULSE 66; RESP 18; TEMP 36.2
--- NOTE | 2017-10-10 17:29 | PN.PCM_ITS ---
(1) Chronic ulcer of left foot with fat layer exposed Status: Chronic Current Visit: Yes Code(s): L97.522 - Non-pressure chronic ulcer of other part of left foot with fat layer exposed (2) PAD (peripheral artery disease) Status: Chronic Current Visit: Yes Code(s): I73.9 - Peripheral vascular disease, unspecified (3) Diabetes mellitus with neuropathy Status: Chronic Current Visit: Yes Qualifiers: Diabetes mellitus type: type 2 Code(s): E11.40 - Type 2 diabetes mellitus with diabetic neuropathy, unspecified (4) Delayed wound healing Status: Chronic Current Visit: Yes Code(s): T14.8 - Other injury of unspecified body region (5) Lower extremity edema Status: Chronic Current Visit: Yes Code(s): R60.0 - Localized edema Type of Wound Date of Service: 10/11/17 Chief Complaint: right foot wound-healed. Left foot wound History of Wound: This 67-year-old male who was seen today for right and left foot ulcerations. He is recent status post fifth ray resection of the right lower extremity revisional bone excision culture of the left first metatarsal. He denies fever, chill, nausea, vomiting, loss of appetite. He also had previous vascular surgery intervention with Dr. Redding on February 14, 2017 including angiogram of the left SFA with a stent to the proximal popliteal. He did follow up with Dr. Redding as advised. His leg swelling has decreased. Progress of Wound: Improved left. Healed right - Physical Exam Vital Signs Temp Pulse Resp BP 97.1 F L 66 18 129/52 H 10/10/17 13:47 10/10/17 13:47 10/10/17 13:47 10/10/17 13:47 General: Alert, Oriented x3, Cooperative Extremities: No cyanosis, Capillary Refill Less than 3 Seconds, No Calf Tenderness, Diminished Peripheral Pulses, Edema Skin: Ulcer/ Wound - no purulence, no erythema, no odor, no infection left. epithelialization progression noted to left foot, - - atrophic skin. full epithelializiation noted to right lower extremity Wound Measurements and Assessment WC - Nurse 1 - General Ulcer Measurement Start: 10/10/17 13:47 Freq: Status: Active Protocol: Activity Type Activity Date Activity User E-Sign Co-Sign Detail Recorded Client Recorded Date Recorded By Document 10/10/17 13:47 [id number] 10/10/17 13:52 10/10/17 13:47 Wound Center Nurse 1 [Ulcer Assessment] #18 Left plantar foot -Combined with other wound No -Current Size (cm) - Length 0.1 -Current Size (cm) - Width 0.1 -Current Size (cm) - Depth 0.1 -Total Square Cm 0.01 -Photo Taken No -Epithelialization Large 67-100% -Tunneling No -Undermining/Tunneling No -Circular Undermining No -Exudate Amt None Present (0 %) -Wound Margin Flat & Intact -Granulation Amt None Present (0 %) -Slough/Fibrin Yes -Necrosis Amt Large (67-100%) -Necrotic Tissue Type Adherent Slough -Structure Exposed N/A -Texture (Maggy-wound Skin Appearance) Assessed Callus -Moisture (Maggy-wound Skin Appearance Assessed ) Dry/Scaly -Color (Maggy-wound Skin Appearance) Assessed -Temperature (Maggy-wound Skin No Abnormality Appearance) (Pt Warm) [Edema Assessment] -Lower Limb Edema Present Yes -Right Calf (cm) 36.3 -Right Ankle (cm) 20.6 -Left Calf (cm) 35.5 -Left Ankle (cm) 20.5 WC - Nurse 2 - General Ulcer CM Notes Start: 10/10/17 13:47 Freq: Status: Active Protocol: Activity Type Activity Date Activity User E-Sign Co-Sign Detail Recorded Client Recorded Date Recorded By Document 10/10/17 14:50 [id number] 10/10/17 14:51 10/10/17 14:50 Wound Center Nurse 2 [Procedure/Treatment] #18 Left plantar foot -Time 14:50 -Correct Patient Yes -Correct Side, Site, Position Yes -Correct Procedure Yes -Procedure Performed Yes -Type of Procedure Debridement -Clinical Debridement Subcutaneous -Post Debridement Size (cm) - Length 0.4 -Post Debridement Size (cm) - Width 0.2 -Post Debridement Size (cm) - Depth 0.1 -Total Square Cm 0.08 -Wound/Ulcer Outcome Not Healed -Ulcer Cleansing Rinsed/ Irrigated with Saline -Foul Odor after Cleansing No -Bioengineered Tissue No -Bleeding Controlled with Pressure -Treatment Response Procedure Tolerated Well [See Physician Procedure note for Specifics] Pain Scale: 0-10 Numeric [Pain] -Is Patient Pain Free? Yes Musculoskeletal: No Tenderness to Palpation of Joints or Extremities, Muscle Wasting, - - s/p fifth ray resection right. s/p transmetatarsal amputation left Neurological: - - lack of epicritic sensation via light touch bilateral lower extremities Psych/Mental Status: Normal Affect, Appropriate Debridement Note Post-Debridement Measurements/Treatment WC - Nurse 2 - General Ulcer CM Notes Start: 10/10/17 13:47 Freq: Status: Active Protocol: Activity Type Activity Date Activity User E-Sign Co-Sign Detail Recorded Client Recorded Date Recorded By Document 10/10/17 14:50 [id number] 10/10/17 14:51 10/10/17 14:50 Wound Center Nurse 2 #18 Left plantar foot -Time 14:50 -Correct Patient Yes -Correct Side, Site, Position Yes -Correct Procedure Yes -Procedure Performed Yes -Type of Procedure Debridement -Clinical Debridement Subcutaneous -Post Debridement Size (cm) - Length 0.4 -Post Debridement Size (cm) - Width 0.2 -Post Debridement Size (cm) - Depth 0.1 -Total Square Cm 0.08 -Wound/Ulcer Outcome Not Healed -Ulcer Cleansing Rinsed/ Irrigated with Saline -Foul Odor after Cleansing No -Bioengineered Tissue No -Bleeding Controlled with Pressure -Treatment Response Procedure Tolerated Well Pain Scale: 0-10 Numeric Is Patient Pain Free? Yes Wound debrided: plantar foot Laterality: Left Wound Grade/Stage: grade 1 Type of Debridement: Excisional debridement Anesthesia Used: 5% Lidocaine Gel Depth: in the subcutaneous layer Percentage of wound debrided: 100 Instrument Used: #15 blade Tissue Removed: fibrous, devitalized subcutaneous, biofilm, slough, callous Severity: Fat Layer Exposed Amount of bleeding with debridement: Mild Bleeding Controlled with: Pressure Patient tolerated procedure well Assessment/Plan Active Problems Chronic ulcer of left foot with fat layer exposed (Chronic) PAD (peripheral artery disease) (Chronic) Diabetes mellitus with neuropathy (Chronic) Delayed wound healing (Chronic) Lower extremity edema (Chronic) Assessment: Right foot ulcers and surgery sites are healed today. Plantar foot left, grade 1. peripheral vascular disease with recent intervention. diabetes with neuropathy. malnutrition. foot deformities: hammer toe right foot and equinus. non compliance history Plan: Discussed case and plan. He continues on a complex wound care plan due to challenges with compliance. He understands he is at risk for continued limb loss. I performed debridement as noted above including subcutaneous at the aformentioned different multiple wound sites and including the subcutaneous tissue the left foot. Saline moistened jarred was applied; to change daily. To offload: continue heel weight bear with offloading surgical shoes left; additional fell offloading material was further adjusted and he demonstrates improvement. To use walker and wheelchair and home office chair. He reports improved compliance and this is noted with his reduction in wound size this week. To weight-bear as tolerated on the right surgical shoe and to progress into extra-depth diabetic shoe with offloading Plastizote insoles that he already has at home. He was advised to bring this with him to his follow-up next week as well. Upon left ulcer closure he will be reintroduced to extra- depth diabetic shoes with a toe filler and dual density Plastizote liners. To optimize healing with balanced diet and proper glycemic control. To continue Glucerna. His non invasive vascular studies were previously reviewed and he had angio with stent to left lower extremity with Dr. Redding. To follow up as advised. He did recently follow-up in the notes will be requested. It is noted he had a previous left procedures performed by Dr. Redding. He was reassured there are no acute signs of infection today. Continue compression dressings and elevation. Tubigrip applied. Return to clinic in 1 week or call immediately if worsening signs of infection signs are noted; a wound care center provider will be covering.
[2017-10-18 13:39] VITALS: BP 130/66; PULSE 59; RESP 20; TEMP 35.1
--- NOTE | 2017-10-18 14:14 | PCM.WC.PN ---
(1) Chronic ulcer of left foot with fat layer exposed Status: Chronic Current Visit: Yes Code(s): L97.522 - Non-pressure chronic ulcer of other part of left foot with fat layer exposed (2) Diabetes mellitus with neuropathy Status: Chronic Current Visit: Yes Qualifiers: Diabetes mellitus type: type 2 Code(s): E11.40 - Type 2 diabetes mellitus with diabetic neuropathy, unspecified (3) Lower extremity edema Status: Chronic Current Visit: Yes Code(s): R60.0 - Localized edema (4) PAD (peripheral artery disease) Status: Chronic Current Visit: Yes Code(s): I73.9 - Peripheral vascular disease, unspecified Type of Wound Date of Service: 10/18/17 Chief Complaint: right foot wound-healed. Left foot wound -healed History of Wound: This 67-year-old male who was seen today for right and left foot ulcerations. He is recent status post fifth ray resection of the right lower extremity revisional bone excision culture of the left first metatarsal. He denies fever, chill, nausea, vomiting, loss of appetite. He also had previous vascular surgery intervention with Dr. Redding on February 14, 2017 including angiogram of the left SFA with a stent to the proximal popliteal. He did follow up with Dr. Redding as advised. His leg swelling has decreased. Progress of Wound: Courtesy visit for Dr. Thomas. healed left. Healed right. Patient denies any signs of systemic infection. The patient otherwise denies any fever, chills, nausea, vomiting, shortness of breath, chest pain or pressure, palpitations, orthopnea, lower extremity edema, syncope or presyncopal episodes. - Physical Exam Vital Signs Temp Pulse Resp BP 95.1 F L 59 L 20 H 130/66 H 10/18/17 13:39 10/18/17 13:39 10/18/17 13:39 10/18/17 13:39 General: Alert, Oriented x3, Cooperative, No apparent distress HEENT: Atraumatic Cardiovascular: Regular rate Extremities: Diminished Peripheral Pulses, Edema - Generalized bilateral lower extremity edema Skin: Ulcer/ Wound - Left foot DFU is healed and epithelialized, no signs of infection at this time Wound Measurements and Assessment WC - Nurse 1 - General Ulcer Measurement Start: 10/10/17 13:47 Freq: Status: Active Protocol: Activity Type Activity Date Activity User E-Sign Co-Sign Detail Recorded Client Recorded Date Recorded By Document 10/18/17 13:39 [email or web address] [id number] 10/18/17 13:46 [email or web address] 10/18/17 13:39 Wound Center Nurse 1 [Ulcer Assessment] #18 Left plantar foot -Combined with other wound No -Current Size (cm) - Length 0.1 -Current Size (cm) - Width 0.1 -Current Size (cm) - Depth 0.1 -Total Square Cm 0.01 -Date of Last Picture (Recall this 09/26/17 field) -Photo Taken No -Epithelialization Large 67-100% -Tunneling No -Undermining/Tunneling No -Circular Undermining No -Classification - Thickness Full Thickness without Exposed Support Structure -Change in Wound Grade/Stage No Query Text:If change please identify the Stage/Grade in the comment (ie. S2 G3) -Exudate Amt None Present (0 %) -Wound Margin Fibrotic Scar, Thickened Scar -Granulation Amt None Present (0 %) -Granulation Quality N/A -Slough/Fibrin No -Necrosis Amt None Present (0 %) -Necrotic Tissue Type Eschar -Structure Exposed N/A -Texture (Maggy-wound Skin Appearance) Callus -Moisture (Maggy-wound Skin Appearance No Abnormality ) -Color (Maggy-wound Skin Appearance) No Abnormality -Temperature (Maggy-wound Skin No Abnormality Appearance) (Pt Warm) -Tenderness on Palpation (Maggy-wound No Skin Appearance) -Ulcer Cleansing Rinsed/ Irrigated with Saline -Foul Odor after Cleansing No -Anesthetic Used 4% Lidocaine Solution [Edema Assessment] -Lower Limb Edema Present No Neurological: Neuro grossly intact Psych/Mental Status: Normal Affect, Appropriate, Alert and oriented to time, place, person, mood and affect Debridement Note Post-Debridement Measurements/Treatment WC - Nurse 2 - General Ulcer CM Notes Start: 10/10/17 13:47 Freq: Status: Active Protocol: Activity Type Activity Date Activity User E-Sign Co-Sign Detail Recorded Client Recorded Date Recorded By Document 10/10/17 14:50 JOE [id number] 10/10/17 14:51 JOE 10/10/17 14:50 Wound Center Nurse 2 #18 Left plantar foot -Time 14:50 -Correct Patient Yes -Correct Side, Site, Position Yes -Correct Procedure Yes -Procedure Performed Yes -Type of Procedure Debridement -Clinical Debridement Subcutaneous -Post Debridement Size (cm) - Length 0.4 -Post Debridement Size (cm) - Width 0.2 -Post Debridement Size (cm) - Depth 0.1 -Total Square Cm 0.08 -Wound/Ulcer Outcome Not Healed -Ulcer Cleansing Rinsed/ Irrigated with Saline -Foul Odor after Cleansing No -Bioengineered Tissue No -Bleeding Controlled with Pressure -Treatment Response Procedure Tolerated Well Pain Scale: 0-10 Numeric Is Patient Pain Free? Yes No debridement was completed today Assessment/Plan Active Problems (Last Reviewed 10/15/17 @ 14:22 by Nataly Christian) Chronic ulcer of left foot with fat layer exposed (Chronic) PAD (peripheral artery disease) (Chronic) Diabetes mellitus with neuropathy (Chronic) Delayed wound healing (Chronic) Lower extremity edema (Chronic) Assessment: Right foot ulcers and surgery sites are healed today. Plantar foot left, grade 1 healed. peripheral vascular disease with recent intervention. diabetes with neuropathy. malnutrition. foot deformities: hammer toe right foot and equinus. non compliance history Plan: Courtesy visit for Dr. Thomas. discussed case and plan. Patient's left foot is now healed. To offload: continue heel weight bear with offloading surgical shoes left; additional fell offloading material was further adjusted and he demonstrates improvement. To use walker and wheelchair and home office chair. He reports improved compliance and this is noted with his reduction in wound size this week. To weight-bear as tolerated on the right surgical shoe and now the patient is healed he will progress into extra-depth diabetic shoe with offloading Plastizote insoles that he already has at home. Upon left ulcer closure he will be reintroduced to extra-depth diabetic shoes with a toe filler and dual density Plastizote liners which patient brought with him to visit today and shoes were placed on him prior to discharge from wound healing center. To optimize healing with balanced diet and proper glycemic control. To continue Glucerna. His non invasive vascular studies were previously reviewed and he had angio with stent to left lower extremity with Dr. Redding. To follow up as advised. He did recently follow-up in the notes will be requested. It is noted he had a previous left procedures performed by Dr. Redding. He was reassured there are no acute signs of infection today. Continue compression dressings and elevation. Tubigrip applied. Return to clinic in as needed as patient's wounds are healed. Patient to follow-up with podiatry Dr. Thomas in 4 weeks at her office or sooner if needed. Educated on signs that require urgent medical attention. Patient verbalized understanding. [facility] disclaimer Code Visit Office Visits / Consults: [id number] OV L2 Est
== END 2017-11-08 23:59 ==
LOC: WC 13:30
PROVIDERS: Family Provider Family Medicine Geriatric Medicine; PCP Family Medicine Geriatric Medicine; Visit Provider Podiatrist
DX: L97.522 Non-pressure chronic ulcer of other part of left foot with fat layer exposed (principal); I73.9 Peripheral vascular disease, unspecified; E11.40 Type 2 diabetes mellitus with diabetic neuropathy, unspecified; R60.0 Localized edema; Z89.432 Acquired absence of left foot; E46 Unspecified protein-calorie malnutrition; Z91.19 Patient's noncompliance with other medical treatment and regimen
CPT/HCPCS: 11042; 99212; G0463

== ENCOUNTER → 2017-10-19 13:56 | Outpatient (CLI) | payer MEDICARE, SELFPAY ==
--- NOTE | 2017-10-19 14:10 | CT_ITS ---
STUDY: CT ABDOMEN AND PELVIS WITH CONTRAST REASON FOR EXAM: Male, 67 years old. Midabdominal pain x2 weeks and worsening bloating. Previous cholecystectomy. Diabetes and hypertension. RADIATION DOSAGE (If Supplied By Facility): CTDIvol = ( 19.54 ) mGy, DLP = ( 1184.38 ) mGycm TECHNIQUE: Transaxial images were obtained from the dome of the diaphragm to the symphysis pubis with oral contrast. 100mL ml of Isovue 300 contrast was administered. Sagittal and coronal images were reconstructed. Individualized dose optimization techniques were used for this CT. COMPARISON: None. FINDINGS: Minimal subsegmental atelectasis in the left lung base. Minimal left posterior pleural thickening. The visualized portions of the heart are within normal limits. Mild diffuse fatty infiltration of the liver. Postsurgical absence of the gallbladder. Normal spleen. Normal pancreas. Normal bilateral adrenal glands. Normal right kidney. Normal left kidney. Normal visualized stomach. Normal small intestine. Normal colon. The appendix is visualized and appears normal. Atherosclerotic calcifications along the abdominal aorta and its branches. Normal inferior vena cava. No retroperitoneal adenopathy. There are some few small solid lymph nodes in the mesentery which are most likely benign reactive nodes. Normal urinary bladder. Few small solid lymph nodes in the inguinal regions. Curvilinear ossification behind the posterior superior corner of T12 vertebral body may represent ossified posterior longitudinal ligament. CT/Abdomen/Pelvis WITH Contrast IMPRESSION: 1. Hepatic steatosis. 2. No CT evidence of mass or acute abnormality in the abdomen and pelvis. 3. Few tiny solid mesenteric lymph nodes and some few small solid lymph nodes in both inguinal regions. They are most likely benign reactive nodes. 4. Vascular atherosclerotic calcifications of the abdominal aorta and its branches. 5. Focal ossified posterior longitudinal ligament behind the posterior superior corner of T12 vertebral body. Electronically Signed: Ronald Rojas MD at 16:40 EDT , Service support ,
[2017-10-19 14:14] LABS: Hematocrit 40.8 % (40-54); Hemoglobin 13.5 g/dl (13.0-16.5); Mean Corp Hgb Conc 33.1 g/gl (32-36); Mean Corpuscular Hgb 29.6 pg (27.0-32.0); Mean Corpuscular Volume 89.5 fL (80-94); Mean Platelet Vol. 10.2 fl (6.2-12.0); Platelet Count 254 K/mm3 (150-450); RBC Distribution Width CV 14.3 % (11.6-14.6); RBC Distribution Width SD 46.3 fl (35.1-43.9); Red Blood Count 4.56 M/mm3 (4.6-6.2); Scan Indicated on CBC? Y/N NO; White Blood Count 8.3 K/mm3 (4.4-11.0)
[2017-10-19 14:25] LABS: ALB/GLOB Ratio 0.7 RATIO (0.9-2.4); AST(SGOT) 24 U/L (15-37); Alanine Aminotransfer ALT/SGPT 35 U/L (16-61); Albumin, Serum 3.1 g/dL (3.2-5.0); Alkaline Phosphatase 78 U/L (45-117); Anion Gap 9 (5-15); BUN 38 mg/dL (7-18); BUN/Creat Ratio 26.8 RATIO (10-20); Calcium,Total 8.6 mg/dL (8.5-10.1); Chloride 107 mmol/L (98-107); Creatinine, Serum 1.42 mg/dL (0.70-1.30); EST Glomerular Filtration Rate 53 mL/min (>60); Est Glom Filt Rate - Afr Amer 64 mL/min (>60); Globulin 4.2 g/dL (2.2-4.2); Glucose 158 mg/dL (74-106); Protein, Total 7.3 g/dL (6.4-8.2); Sodium Level 140 mmol/L (136-145)
== END ==
PROVIDERS: Family Provider Family Medicine Geriatric Medicine; PCP Family Medicine Geriatric Medicine; Visit Provider Surgery
DX: K76.0 Fatty (change of) liver, not elsewhere classified (principal); R10.9 Unspecified abdominal pain; R63.4 Abnormal weight loss
CPT/HCPCS: 36415; 74177; 80053; 85027; Q9967

== ENCOUNTER 2017-12-05 15:30 | Outpatient (RCR) | payer MEDICARE, SELFPAY ==
[2017-11-09 00:57] VITALS: PULSE 59; RESP 20; TEMP 35.1
[2017-11-21 16:37] VITALS: RESP 18; TEMP 36.6; BMI 69.7
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
[2017-11-28 16:14] VITALS: BP 101/66; PULSE 57; RESP 20; TEMP 36.6; BMI 69.7
--- NOTE | 2017-11-28 17:40 | PN.PCM_ITS ---
(1) Chronic ulcer of left foot with fat layer exposed Status: Chronic Current Visit: Yes Code(s): L97.522 - Non-pressure chronic ulcer of other part of left foot with fat layer exposed (2) PAD (peripheral artery disease) Status: Chronic Current Visit: Yes Code(s): I73.9 - Peripheral vascular disease, unspecified (3) Diabetes mellitus with neuropathy Status: Chronic Current Visit: Yes Qualifiers: Diabetes mellitus type: type 2 Code(s): E11.40 - Type 2 diabetes mellitus with diabetic neuropathy, unspecified (4) Malnutrition Status: Chronic Current Visit: Yes Code(s): E46 - Unspecified protein- calorie malnutrition (5) Delayed wound healing Status: Chronic Current Visit: Yes Code(s): T14.8 - Other injury of unspecified body region (6) Lower extremity edema Status: Chronic Current Visit: Yes Code(s): R60.0 - Localized edema Type of Wound Date of Service: 11/28/17 Chief Complaint: . Left foot wound - return History of Wound: This 67-year-old male who was seen today for left foot ulceration. He has been changing the dressing at home with hydrogel. He denies fever, chill, nausea, vomiting, loss of appetite. He also had previous vascular surgery intervention with Dr. Redding on February 14, 2017 including angiogram of the left SFA with a stent to the proximal popliteal. He did follow up with Dr. Redding as advised. He has a device at home and he wants he is on his legs to increase circulation and will bring it in next week. He read on the instructions that it can burn open wounds if they are present and I advised him not to use this. Progress of Wound: Stable - Physical Exam Vital Signs Temp Pulse Resp BP 97.8 F 57 L 20 H 101/66 11/28/17 16:14 11/28/17 16:14 11/28/17 16:14 11/28/17 16:14 General: Alert, Oriented x3, Cooperative Extremities: No cyanosis, Capillary Refill Less than 3 Seconds, No Calf Tenderness, Diminished Peripheral Pulses, Edema - Controlled Skin: Ulcer/ Wound - No purulence, no erythema, streaking, no odor, no infection left lower extremity no exposed deep bone or tissue noted. The peripheral skin is hairless atrophic. Wound Measurements and Assessment WC - Nurse 1 - General Ulcer Measurement Start: 11/21/17 16:35 Freq: Status: Active Protocol: Activity Type Activity Date Activity User E-Sign Co-Sign Detail Recorded Client Recorded Date Recorded By Document 11/28/17 16:14 DL [id number] 11/28/17 16:18 DL 11/28/17 16:14 Wound Center Nurse 1 [Ulcer Assessment] #19 L Plantar -Current Size (cm) - Length 1.3 -Current Size (cm) - Width 0.2 -Current Size (cm) - Depth 0.2 -Total Square Cm 0.26 -Photo Taken No -Exudate Amt None Present (0 %) -Exudate Type Serosanguineous -Wound Margin Thickened -Granulation Amt Small (1-33%) -Granulation Quality [place] -Necrosis Amt Small (1-33%) -Necrotic Tissue Type Adherent Slough -Structure Exposed N/A -Texture (Maggy-wound Skin Appearance) Callus -Moisture (Maggy-wound Skin Appearance No Abnormality ) -Color (Maggy-wound Skin Appearance) No Abnormality -Temperature (Maggy-wound Skin No Abnormality Appearance) (Pt Warm) -Ulcer Cleansing Rinsed/ Irrigated with Saline -Foul Odor after Cleansing No -Anesthetic Used 4% Lidocaine Solution WC - Nurse 2 - General Ulcer CM Notes Start: 11/21/17 16:35 Freq: Status: Active Protocol: Activity Type Activity Date Activity User E-Sign Co-Sign Detail Recorded Client Recorded Date Recorded By Document 11/28/17 17:07 [id number] 11/28/17 17:11 11/28/17 17:07 Wound Center Nurse 2 [Procedure/Treatment] -Time 17:09 -Correct Patient Yes -Correct Side, Site, Position Yes -Correct Procedure Yes -Procedure Performed Yes -Type of Procedure Debridement -Clinical Debridement Subcutaneous -Post Debridement Size (cm) - Length 2.3 -Post Debridement Size (cm) - Width 0.4 -Post Debridement Size (cm) - Depth 0.2 -Total Square Cm 0.92 -Wound/Ulcer Outcome Not Healed -Ulcer Cleansing Rinsed/ Irrigated with Saline -Foul Odor after Cleansing No -Bioengineered Tissue Yes -Type of bioengineered Tissue EPIFIX -Expiration Date 09/09/22 -Product Lot Number [id number] -Percent Used 100 -Saline Lot Number [id number] -Bleeding Controlled with Pressure -Treatment Response Procedure Tolerated Well [See Physician Procedure note for Specifics] Pain Scale: 0-10 Numeric [Pain] -Is Patient Pain Free? Yes Musculoskeletal: No Tenderness to Palpation of Joints or Extremities, Muscle Wasting, - - Transmetatarsal amputation left Neurological: - - Lack of epicritic sensation light touch left Psych/Mental Status: Normal Affect, Appropriate Debridement Note Post-Debridement Measurements/Treatment WC - Nurse 2 - General Ulcer CM Notes Start: 11/21/17 16:35 Freq: Status: Active Protocol: Activity Type Activity Date Activity User E-Sign Co-Sign Detail Recorded Client Recorded Date Recorded By Document 11/21/17 17:10 [id number] 11/21/17 17:11 Document 11/28/17 17:07 [id number] 11/28/17 17:11 11/21/17 11/28/17 17:10 17:07 Wound Center Nurse 2 #19 L Plantar -Time 17:11 17:09 -Correct Patient Yes Yes -Correct Side, Site, Position Yes Yes -Correct Procedure Yes Yes -Procedure Performed Yes Yes -Type of Procedure Debridement Debridement -Clinical Debridement Subcutaneous Subcutaneous -Post Debridement Size (cm) - Length 2.2 2.3 -Post Debridement Size (cm) - Width 0.5 0.4 -Post Debridement Size (cm) - Depth 0.2 0.2 -Total Square Cm 1.10 0.92 -Wound/Ulcer Outcome Not Healed Not Healed -Ulcer Cleansing Rinsed/ Rinsed/ Irrigated with Irrigated with Saline Saline -Foul Odor after Cleansing No No -Bioengineered Tissue No Yes -Type of bioengineered Tissue EPIFIX -Expiration Date 09/09/22 -Product Lot Number [id number] -Percent Used 100 -Saline Lot Number [id number] -Bleeding Controlled with Pressure Pressure -Treatment Response Procedure Procedure Tolerated Well Tolerated Well Pain Scale: 0-10 Numeric Is Patient Pain Free? Yes Yes Wound debrided: plantar foot Laterality: Left Wound Grade/Stage: grade 1 Type of Debridement: Excisional debridement Anesthesia Used: 5% Lidocaine Gel Depth: in the subcutaneous layer Percentage of wound debrided: 100 Instrument Used: #15 blade Tissue Removed: fibrous, devitalized subcutaneous, biofilm, slough Severity: Fat Layer Exposed Amount of bleeding with debridement: Mild Bleeding Controlled with: Pressure Patient tolerated procedure well Assessment/Plan Active Problems (Last Reviewed 10/15/17 @ 14:22 by Nataly Christian) Chronic ulcer of left foot with fat layer exposed (Chronic) PAD (peripheral artery disease) (Chronic) Diabetes mellitus with neuropathy (Chronic) Malnutrition (Chronic) Delayed wound healing (Chronic) Lower extremity edema (Chronic) Assessment: . Plantar foot left, grade 1, no infection. peripheral vascular disease with recent intervention. diabetes with neuropathy. malnutrition. foot deformities: hammer toe right foot and equinus. non compliance history Plan: I discussed case and plan. There is reoccurrence of the left foot ulcer site. Subcutaneous excisional debridement was performed as noted in the clinical panel. To offload: continue heel weight bear with offloading surgical shoes left; additional fell offloading material was further adjusted and he demonstrates improvement. It is noted he has changed his shoe gear and was modified to appropriately offload his wound today. I advised him not to return to his extra-depth diabetic shoe on the right foot until it is evaluated. He was advised to bring this in next week. To use walker and wheelchair and home office chair. He reports improved compliance and this is noted with his reduction in wound size this week. To weight-bear as tolerated on the right surgical shoe and now the patient is healed he will progress into extra-depth diabetic shoe with offloading Plastizote insoles that he already has at home. To optimize healing with balanced diet and proper glycemic control. To continue Glucerna. His non invasive vascular studies were previously reviewed and he had angio with stent to left lower extremity with Dr. Redding. To follow up as advised. He did recently follow-up in the notes will be requested. It is noted he had a previous left procedures performed by Dr. Redding. He was reassured there are no acute signs of infection today. Continue compression dressings and elevation. Tubigrip applied. . If he demonstrates lack of healing a total contact cast will be considered for the left lower extremity. I also recommend application of advanced wound care product. Prior authorization for epi fix was obtained and this is applied today after verbal consent. The indications and anticipated healing management were explained. Answered all his questions. Pressure was applied to maintain hemostasis. He tolerated this well. This was secured in place with a wound veil and Steri- Strips. He was advised to keep this clean and intact follow-up next week. To return to clinic in 1 week or call sooner if he has any questions or concerns.
[2017-12-05 15:17] VITALS: BP 137/67; PULSE 67; RESP 16; TEMP 36.1; BMI 69.7
--- NOTE | 2017-12-05 16:38 | PN.PCM_ITS ---
(1) Chronic ulcer of left foot with fat layer exposed Status: Chronic Code(s): L97.522 - Non-pressure chronic ulcer of other part of left foot with fat layer exposed (2) PAD (peripheral artery disease) Status: Chronic Code(s): I73.9 - Peripheral vascular disease, unspecified (3) Diabetes mellitus with neuropathy Status: Chronic Qualifiers: Diabetes mellitus type: type 2 Code(s): E11.40 - Type 2 diabetes mellitus with diabetic neuropathy, unspecified (4) Malnutrition Status: Chronic Code(s): E46 - Unspecified protein-calorie malnutrition (5) Delayed wound healing Status: Chronic Code(s): T14.8 - Other injury of unspecified body region (6) Lower extremity edema Status: Chronic Code(s): R60.0 - Localized edema Type of Wound Date of Service: 12/09/17 Chief Complaint: . Left foot ulcer History of Wound: This 67-year-old male who was seen today for left foot ulceration. He has been compliant at home with his care plan and decreased walking activities this past week. He relates he wants to go fishing this summer. He denies fever, chill, nausea, vomiting, loss of appetite. He denies limb odor or redness. He also had previous vascular surgery intervention with Dr. Redding on February 14, 2017 including angiogram of the left SFA with a stent to the proximal popliteal. He did follow up with Dr. Redding as advised. Progress of Wound: Improving - Physical Exam Vital Signs Temp Pulse Resp BP 96.9 F L 67 16 137/67 H 12/05/17 15:17 12/05/17 15:17 12/05/17 15:17 12/05/17 15:17 General: Alert, Oriented x3, Cooperative Extremities: No cyanosis, Capillary Refill Less than 3 Seconds, No Calf Tenderness, Diminished Peripheral Pulses, Edema, - - Left transmetatarsal amputation Skin: Ulcer/ Wound - No purulence, no erythema, streaking, no odor, no infection. There is peripheral epithelialization noted in the wound size has decreased. There is no exposed deep tissue or fluctuance on palpation. His peripheral skin is atrophic. Wound Measurements and Assessment WC - Nurse 1 - General Ulcer Measurement Start: 11/21/17 16:35 Freq: Status: Active Protocol: Activity Type Activity Date Activity User E-Sign Co-Sign Detail Recorded Client Recorded Date Recorded By Document 12/05/17 15:17 [id number] 12/05/17 15:28 CS 12/05/17 15:17 Wound Center Nurse 1 [Ulcer Assessment] #19 L Plantar -Combined with other wound No -Current Size (cm) - Length 0.9 -Current Size (cm) - Width 0.3 -Current Size (cm) - Depth 0.2 -Total Square Cm 0.27 -Photo Taken No -Epithelialization Small 1-33% -Tunneling No -Undermining/Tunneling No -Exudate Amt Medium (34-66%) -Exudate Type Serous -Wound Margin Thickened -Granulation Amt None Present (0 %) -Granulation Quality N/A -Slough/Fibrin Yes -Necrosis Amt None Present (0 %) -Structure Exposed None/Limited to Skin Breakdown -Texture (Maggy-wound Skin Appearance) Assessed Callus -Moisture (Maggy-wound Skin Appearance No Abnormality ) Assessed -Color (Maggy-wound Skin Appearance) No Abnormality Assessed -Temperature (Maggy-wound Skin No Abnormality Appearance) (Pt Warm) -Tenderness on Palpation (Maggy-wound No Skin Appearance) -Ulcer Cleansing Rinsed/ Irrigated with Saline -Foul Odor after Cleansing No -Anesthetic Used 4% Lidocaine Solution [Edema Assessment] -Lower Limb Edema Present Yes -Right Calf (cm) 38.4 -Right Ankle (cm) 28.4 -Left Calf (cm) 37.5 -Left Ankle (cm) 24.0 WC - Nurse 2 - General Ulcer CM Notes Start: 11/21/17 16:35 Freq: Status: Active Protocol: Activity Type Activity Date Activity User E-Sign Co-Sign Detail Recorded Client Recorded Date Recorded By Document 12/05/17 15:46 [id number] 12/05/17 15:49 12/05/17 15:46 Wound Center Nurse 2 [Procedure/Treatment] #19 L Plantar -Time 15:48 -Correct Patient Yes -Correct Side, Site, Position Yes -Correct Procedure Yes -Procedure Performed Yes -Type of Procedure Debridement -Clinical Debridement Subcutaneous -Post Debridement Size (cm) - Length 1.3 -Post Debridement Size (cm) - Width 0.3 -Post Debridement Size (cm) - Depth 0.1 -Total Square Cm 0.39 -Wound/Ulcer Outcome Not Healed -Ulcer Cleansing Rinsed/ Irrigated with Saline -Foul Odor after Cleansing No -Bioengineered Tissue Yes -Type of bioengineered Tissue EPIFIX -Expiration Date 09/09/22 -Product Lot Number [id number] -Percent Used 100 -Saline Lot Number [id number] -Bleeding Controlled with Pressure -Treatment Response Procedure Tolerated Well [See Physician Procedure note for Specifics] Pain Scale: 0-10 Numeric [Pain] -Is Patient Pain Free? Yes Musculoskeletal: No Tenderness to Palpation of Joints or Extremities, Muscle Wasting Neurological: - - Lack of epicritic sensation light touch noted Psych/Mental Status: Normal Affect, Appropriate Debridement Note Post-Debridement Measurements/Treatment WC - Nurse 2 - General Ulcer CM Notes Start: 11/21/17 16:35 Freq: Status: Active Protocol: Activity Type Activity Date Activity User E-Sign Co-Sign Detail Recorded Client Recorded Date Recorded By Document 11/21/17 17:10 [id number] 11/21/17 17:11 Document 11/28/17 17:07 [id number] 11/28/17 17:11 Document 12/05/17 15:46 [id number] 12/05/17 15:49 11/21/17 11/28/17 12/05/17 17:10 17:07 15:46 Wound Center Nurse 2 #19 L Plantar -Time 17:11 17:09 15:48 -Correct Patient Yes Yes Yes -Correct Side, Site, Position Yes Yes Yes -Correct Procedure Yes Yes Yes -Procedure Performed Yes Yes Yes -Type of Procedure Debridement Debridement Debridement -Clinical Debridement Subcutaneous Subcutaneous Subcutaneous -Post Debridement Size (cm) - Length 2.2 2.3 1.3 -Post Debridement Size (cm) - Width 0.5 0.4 0.3 -Post Debridement Size (cm) - Depth 0.2 0.2 0.1 -Total Square Cm 1.10 0.92 0.39 -Wound/Ulcer Outcome Not Healed Not Healed Not Healed -Ulcer Cleansing Rinsed/ Rinsed/ Rinsed/ Irrigated with Irrigated with Irrigated with Saline Saline Saline -Foul Odor after Cleansing No No No -Bioengineered Tissue No Yes Yes -Type of bioengineered Tissue EPIFIX EPIFIX -Expiration Date 09/09/22 09/09/22 -Product Lot Number [id number] -Percent Used 100 100 -Saline Lot Number [id number] -Bleeding Controlled with Pressure Pressure Pressure -Treatment Response Procedure Procedure Procedure Tolerated Well Tolerated Well Tolerated Well Pain Scale: 0-10 Numeric Is Patient Pain Free? Yes Yes Yes Wound debrided: plantar foot Laterality: Left Wound Grade/Stage: grade 1 Type of Debridement: Excisional debridement Anesthesia Used: 5% Lidocaine Gel Depth: in the subcutaneous layer Percentage of wound debrided: 100 Instrument Used: #15 blade Tissue Removed: fibrous, devitalized subcutaneous, biofilm, slough Severity: Fat Layer Exposed Amount of bleeding with debridement: Mild Bleeding Controlled with: Pressure Patient tolerated procedure well Assessment/Plan Assessment: Plantar foot left, grade 1, no infection. peripheral vascular disease with recent intervention. diabetes with neuropathy. malnutrition. foot deformities: hammer toe right foot and equinus. non compliance history Plan: I discussed case and plan. There is reoccurrence of the left foot ulcer site. Subcutaneous excisional debridement was performed as noted in the clinical panel. To offload: continue heel weight bear with offloading surgical shoes left; additional fell offloading material was further adjusted and he demonstrates improvement. It is noted he has changed his shoe gear and was modified to appropriately offload his wound today. I advised him not to return to his extra-depth diabetic shoe on the right foot until it is evaluated. He was advised to bring this in next week. To use walker and wheelchair and home office chair. He reports improved compliance and this is noted with his reduction in wound size this week. To weight-bear as tolerated on the right surgical shoe and now the patient is healed he will progress into extra-depth diabetic shoe with offloading Plastizote insoles that he already has at home. To optimize healing with balanced diet and proper glycemic control. To continue Glucerna. His non invasive vascular studies were previously reviewed and he had angio with stent to left lower extremity with Dr. Redding. To follow up as advised. He did recently follow-up in the notes will be requested. It is noted he had a previous left procedures performed by Dr. Redding. He was reassured there are no acute signs of infection today. Continue compression dressings and elevation. Tubigrip applied. . If he demonstrates lack of healing a total contact cast will be considered for the left lower extremity. I also recommend application of advanced wound care product. Prior authorization for epi fix was obtained and this is applied today after verbal consent. The indications and anticipated healing management were explained. Answered all his questions. Pressure was applied to maintain hemostasis. He tolerated this well. This was secured in place with a wound veil and Steri- Strips. He was advised to keep this clean and intact follow-up next week. To return to clinic in 1 week or call sooner if he has any questions or concerns. The wound center is closed due to national holiday next Sunday and therefore he will see a different wound center provider who will consider debridement and application of another advanced wound care product. I answered all of his questions.
== END 2017-12-08 23:59 ==
LOC: WC 15:30
PROVIDERS: Family Provider Family Medicine Geriatric Medicine; PCP Family Medicine Geriatric Medicine; Visit Provider Podiatrist
DX: E11.621 Type 2 diabetes mellitus with foot ulcer (principal); E11.40 Type 2 diabetes mellitus with diabetic neuropathy, unspecified; E11.51 Type 2 diabetes mellitus with diabetic peripheral angiopathy without gangrene; L97.522 Non-pressure chronic ulcer of other part of left foot with fat layer exposed; R60.0 Localized edema; M20.41 Other hammer toe(s) (acquired), right foot
CPT/HCPCS: 11042; 15275; 99213; Q4131; G0463

== ENCOUNTER → 2017-12-11 07:00 | Outpatient (CLI) | payer MEDICARE, SELFPAY | PROVIDERS: Family Provider Family Medicine Geriatric Medicine; PCP Family Medicine Geriatric Medicine; Visit Provider Surgery | DX: Z01.818 Encounter for other preprocedural examination (principal) ==

== ENCOUNTER 2017-12-19 15:00 | Outpatient (RCR) | payer MEDICARE, SELFPAY ==
[2017-12-09 00:49] VITALS: BP 137/67; PULSE 67; RESP 16; TEMP 36.1
[2017-12-14 15:06] VITALS: BP 135/66; PULSE 60; RESP 16; TEMP 35.9
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
[2017-12-19 15:04] VITALS: BP 108/79; PULSE 77; RESP 20; TEMP 36.2
--- NOTE | 2017-12-19 16:17 | PN.PCM_ITS ---
(1) Blister of left leg Status: Chronic Current Visit: Yes Code(s): S80.822A - Blister (nonthermal) , left lower leg, initial encounter (2) Chronic ulcer of left foot with fat layer exposed Status: Resolved Current Visit: Yes Code(s): L97.522 - Non-pressure chronic ulcer of other part of left foot with fat layer exposed (3) PAD (peripheral artery disease) Status: Chronic Current Visit: Yes Code(s): I73.9 - Peripheral vascular disease, unspecified (4) Diabetes mellitus with neuropathy Status: Chronic Current Visit: Yes Qualifiers: Diabetes mellitus type: type 2 Code(s): E11.40 - Type 2 diabetes mellitus with diabetic neuropathy, unspecified (5) Lower extremity edema Status: Chronic Current Visit: Yes Code(s): R60.0 - Localized edema (6) Chronic ulcer of left foot with fat layer exposed Status: Resolved Current Visit: Yes Code(s): L97.522 - Non-pressure chronic ulcer of other part of left foot with fat layer exposed Type of Wound Date of Service: 12/20/17 Chief Complaint: Left foot ulcer History of Wound: This 67-year-old male who was seen today for left foot ulceration. It is currently healed and he is here for check today. He denies fever, chill, nausea, vomiting, loss of appetite. He has a new left leg blister and asked about this today he reports his leg was actually swollen. He denies calf pain or shortness of breath or chest pain. Progress of Wound: Healed - Physical Exam Vital Signs Temp Pulse Resp BP 97.1 F L 77 20 H 108/79 12/19/17 15:04 12/19/17 15:04 12/19/17 15:04 12/19/17 15:04 General: Alert, Oriented x3, Cooperative Extremities: No cyanosis, Capillary Refill Less than 3 Seconds, No Calf Tenderness - Negative Rashad and Tenorio sign bilateral, Diminished Peripheral Pulses, Edema - Left lower extremity Skin: Ulcer/ Wound - No purulence, no erythema, no streaking, no acute signs of infection bilateral lower extremities. There is full epithelialization noted to the plantar left foot and his wound remains healed. He does have a new bulla with only serous fluid to the anterior medial left barlow. Upon drainage there is no exposed deep tissue noted in the skin was left intact as a biological dressing. He does have some hyperpigmentation of the legs and his legs are hairless and atrophic. Wound Measurements and Assessment WC - Nurse 1 - General Ulcer Measurement Start: 12/14/17 15:02 Freq: Status: Active Protocol: Activity Type Activity Date Activity User E-Sign Co-Sign Detail Recorded Client Recorded Date Recorded By Document 12/19/17 15:04 DL [id number] 12/19/17 15:12 DL 12/19/17 15:04 Wound Center Nurse 1 [Ulcer Assessment] #19 L Plantar -Current Size (cm) - Length 0 -Current Size (cm) - Width 0 -Current Size (cm) - Depth 0 -Total Square Cm 0 -Photo Taken Yes -Exudate Amt None Present (0 %) -Wound Margin Thickened -Granulation Amt Large (67-100%) -Granulation Quality Pale -Necrosis Amt None Present (0 %) -Structure Exposed N/A -Texture (Maggy-wound Skin Appearance) Scarring -Moisture (Maggy-wound Skin Appearance Dry/Scaly ) -Color (Maggy-wound Skin Appearance) Hemosiderin Staining -Temperature (Maggy-wound Skin No Abnormality Appearance) (Pt Warm) -Ulcer Cleansing Rinsed/ Irrigated with Saline -Foul Odor after Cleansing No [Edema Assessment] -Right Calf (cm) 36 -Right Ankle (cm) 21.7 WC - Nurse 2 - General Ulcer CM Notes Start: 12/14/17 15:02 Freq: Status: Active Protocol: Activity Type Activity Date Activity User E-Sign Co-Sign Detail Recorded Client Recorded Date Recorded By Document 12/19/17 15:38 [id number] 12/19/17 15:40 12/19/17 15:38 Wound Center Nurse 2 [Procedure/Treatment] #19 L Plantar -Time 15:39 -Correct Patient Yes -Correct Side, Site, Position Yes -Correct Procedure Yes -Procedure Performed Yes -Post Debridement Size (cm) - Length 0 -Post Debridement Size (cm) - Width 0 -Post Debridement Size (cm) - Depth 0 -Total Square Cm 0 -Wound/Ulcer Outcome Healed- Epithelialized -Ulcer Cleansing Rinsed/ Irrigated with Saline -Foul Odor after Cleansing No -Bioengineered Tissue No -Bleeding Controlled with NA -Treatment Response Procedure Tolerated Well [See Physician Procedure note for Specifics] Pain Scale: 0-10 Numeric [Pain] -Is Patient Pain Free? Yes Musculoskeletal: No Tenderness to Palpation of Joints or Extremities, Muscle Wasting Neurological: - - Lack of epicritic sensation light touch bilateral lower extremities Psych/Mental Status: Normal Affect, Appropriate Debridement Note Post-Debridement Measurements/Treatment WC - Nurse 2 - General Ulcer CM Notes Start: 12/14/17 15:02 Freq: Status: Active Protocol: Activity Type Activity Date Activity User E-Sign Co-Sign Detail Recorded Client Recorded Date Recorded By Document 12/14/17 15:56 TM [id number] 12/14/17 16:09 TM Document 12/19/17 15:38 TM [id number] 12/19/17 15:40 TM 12/14/17 12/19/17 15:56 15:38 Wound Center Nurse 2 #19 L Plantar -Time 15:59 15:39 -Correct Patient Yes Yes -Correct Side, Site, Position Yes Yes -Correct Procedure Yes Yes -Procedure Performed Yes Yes -Type of Procedure Debridement -Clinical Debridement Selective -Post Debridement Size (cm) - Length 0 0 -Post Debridement Size (cm) - Width 0 0 -Post Debridement Size (cm) - Depth 0 0 -Total Square Cm 0 0 -Wound/Ulcer Outcome Healed- Healed- Epithelialized Epithelialized -Ulcer Cleansing Rinsed/ Rinsed/ Irrigated with Irrigated with Saline Saline -Foul Odor after Cleansing No No -Bioengineered Tissue No No -Topical Lidocaine (%) 5 -Bleeding Controlled with NA NA Pressure -Treatment Response Procedure Procedure Tolerated Well Tolerated Well Pain Scale: 0-10 Numeric Is Patient Pain Free? Yes Yes No debridement was completed today - The wound has healed Assessment/Plan Active Problems (Last Reviewed 10/15/17 @ 14:22 by Nataly Christian) Blister of left leg (Chronic) Non-pressure chronic ulcer of other part of left foot with fat layer exposed ( Chronic) PAD (peripheral artery disease) (Chronic) Diabetes mellitus with neuropathy (Chronic) Lower extremity edema (Chronic) Diabetic foot ulcers (Chronic) Assessment: Plantar foot left-healed. Left leg serous filled bulla, no infection. peripheral vascular disease with recent intervention. diabetes with neuropathy. malnutrition. foot deformities: hammer toe right foot and equinus. non compliance history Plan: His wound is healed today but due to the recurrent nature of his wound he was evaluated again today. To offload: continue heel weight bear with offloading surgical shoes left; additional fell offloading material was further adjusted and he demonstrates improvement. He will continue surgical shoes and will return with his diabetic shoes for evaluation prior to progression. He will bring this next week. Betadine cleanse was performed to the left leg and verbal consent was obtained to bring his blister. This was performed successfully and a dry gauze and compression dressing was applied. To continue changing this at home and to monitor for local signs of infection which is not noted today. To discontinue nutritional supplementation and left foot dressing care because the wound has healed. His non invasive vascular studies were previously reviewed and he had angio with stent to left lower extremity with Dr. Redding. To follow up as advised. He did recently follow-up in the notes will be requested. It is noted he had a previous left procedures performed by Dr. Redding. He was reassured there are no acute signs of infection today. Continue compression dressings and elevation. Tubigrip applied. . To return to clinic in 2 weeks to evaluate this recently drained blister site and to look at his shoes.
== END 2018-01-08 23:59 ==
LOC: WC 15:00
PROVIDERS: Family Provider Family Medicine Geriatric Medicine; PCP Family Medicine Geriatric Medicine; Visit Provider Podiatrist
DX: E11.621 Type 2 diabetes mellitus with foot ulcer (principal); E11.51 Type 2 diabetes mellitus with diabetic peripheral angiopathy without gangrene; R60.0 Localized edema; L97.521 Non-pressure chronic ulcer of other part of left foot limited to breakdown of skin; M20.41 Other hammer toe(s) (acquired), right foot; Z91.19 Patient's noncompliance with other medical treatment and regimen
CPT/HCPCS: 97597; 99213; G0463

== ENCOUNTER → 2017-12-24 14:33 | Outpatient (CLI) | payer MEDICARE, SELFPAY ==
[2017-12-24 18:10] LABS: PSA,Total - Annual Screen 0.47 ng/mL (0.00-4.00)
[2017-12-26 11:18] LABS: Hep C Antibodies 0.1 s/co ratio (0.0-0.9)
== END ==
PROVIDERS: Family Provider Family Medicine Geriatric Medicine; PCP Family Medicine Geriatric Medicine; Visit Provider Family Medicine Geriatric Medicine
DX: Z12.5 Encounter for screening for malignant neoplasm of prostate (principal); Z13.89 Encounter for screening for other disorder
CPT/HCPCS: 36415; 84153; 86803; G0103

== ENCOUNTER 2018-01-16 17:03 | Emergency (ER) | payer MEDICARE, SELFPAY ==
[2018-01-16 17:05] VITALS: BP 140/67; PULSE 59; RESP 18; TEMP 37.2; O2SAT 92; BMI 34.1
[2018-01-16 17:12] VITALS: O2SAT 93
--- NOTE | 2018-01-16 17:41 | CT_ITS ---
STUDY: CT ABDOMEN AND PELVIS WITHOUT CONTRAST REASON FOR EXAM: Male, 68 years old. Abdominal pain RADIATION DOSAGE (If Supplied By Facility): CTDIvol = ( 28.48 ) mGy, DLP = ( 1508.23 ) mGycm TECHNIQUE: Transaxial images were obtained from the dome of the diaphragm to the symphysis pubis without oral contrast, and without intravenous contrast. Sagittal and coronal images were reconstructed. Individualized dose optimization techniques were used for this CT. COMPARISON: 10/19/2017 FINDINGS: Evaluation of the abdominal viscera is limited in the absence of intravenous contrast. There is a stable trace left pleural effusion with overlying atelectasis. The visualized portions of the heart and pericardium are within normal limits. There are coronary artery calcifications noted. The patient is status post cholecystectomy. The liver demonstrates an unremarkable unenhanced appearance. Again noted are calcified splenic granulomata. The pancreas demonstrates an unremarkable unenhanced appearance. The adrenal glands are within normal limits. There are no renal or ureteral stones. There is no hydronephrosis. Normal visualized stomach. There is no bowel obstruction or inflammation. There is a large amount of stool in the colon, consistent with constipation. The appendix is not visualized. There are atherosclerotic calcifications noted in the aorta and its branches. The aorta is normal in caliber. There is no abdominal or pelvic free air, free fluid, fluid collection or lymphadenopathy. There are no destructive osseous lesions. CT/Abdomen/Pelvis without Cont IMPRESSION: No bowel obstruction or inflammation. Normal appendix. Constipation. No urinary calculi. No hydronephrosis. Atherosclerosis and coronary artery disease. Stable trace left pleural effusion with overlying atelectasis. Electronically Signed: Steven Vizcarra, at 18:27 EDT Tel , Service support ,
--- NOTE | 2018-01-16 18:05 | RAD_ITS ---
STUDY: X-RAY CHEST REASON FOR EXAM: Male, 68 years old. Dyspnea TECHNIQUE: Frontal view of the chest COMPARISON: 08/10/2017 FINDINGS: There are mild congestive changes noted. The lungs are otherwise clear. There are no pleural effusions. There is no pneumothorax. The heart is enlarged. There is a cardiac event recorder noted. The patient is status post sternotomy. RAD/Chest 1 View (Portable) IMPRESSION: Cardiomegaly. Mild pulmonary vascular congestion. Electronically Signed: Steven Vizcarra, at 18:31 EDT Tel , Service support ,
[2018-01-16 18:21] LABS: Absolute Lymphocyte Count 1.21 X10^3/ul (0.83-4.51); Absolute Neutrophil Count 6.1 X10^3/uL (2.0-7.7); Basophil# 0.04 X10^3/uL; Basophil% 0.5 % (0-1); Eosinophil# 0.19 X10^3/uL; Eosinophils% 2.3 % (0-5); Hematocrit 40.3 % (40-54); Hemoglobin 12.9 g/dl (13.0-16.5); Lymphocyte # 1.21 X10^3/ul (4.0); Lymphocyte % 14.4 % (19-41); Mean Corpuscular Hgb 29.9 pg (27.0-32.0); Mean Corpuscular Volume 93.3 fL (80-94); Mean Platelet Vol. 10.9 fl (6.2-12.0); Monocyte# 0.87 X10^3/uL; Monocyte% 10.4 % (0-10); Neutrophil # 6.05 X10^3/uL (2.7-7.7); Neutrophil % 72.2 % (47-70); Platelet Count 246 K/mm3 (150-450); RBC Distribution Width CV 14.3 % (11.6-14.6); RBC Distribution Width SD 48.5 fl (35.1-43.9); Red Blood Count 4.32 M/mm3 (4.6-6.2); White Blood Count 8.4 K/mm3 (4.4-11.0)
[2018-01-16 18:22] LABS: POSITIVE COUNT NO; POSITIVE DIFFERENTIAL NO; POSITIVE MORPHOLOGY NO
[2018-01-16 18:30] LABS: ALB/GLOB Ratio 0.7 RATIO (0.9-2.4); AST(SGOT) 127 U/L (15-37); Alanine Aminotransfer ALT/SGPT 135 U/L (16-61); Albumin, Serum 2.7 g/dL (3.2-5.0); Alkaline Phosphatase 80 U/L (45-117); Anion Gap 6 (5-15); BUN 33 mg/dL (7-18); BUN/Creat Ratio 18.5 RATIO (10-20); Chloride 99 mmol/L (98-107); Creatinine, Serum 1.78 mg/dL (0.70-1.30); EST Glomerular Filtration Rate 41 mL/min (>60); Est Glom Filt Rate - Afr Amer 49 mL/min (>60); Estimated Creatinine Clearance 42.15 ml/min; Globulin 4.1 g/dL (2.2-4.2); Glucose 298 mg/dL (74-106); Lipase 120 U/L (73-393); Potassium 4.6 mmol/L (3.5-5.1); Protein, Total 6.8 g/dL (6.4-8.2); Sodium Level 136 mmol/L (136-145)
[2018-01-16 18:32] VITALS: BP 125/59; PULSE 61; RESP 18; O2SAT 98
[2018-01-16 18:48] LABS: BNP,B-Type NATRIURETIC PEPTIDE 283.6 pg/mL (0-100)
--- NOTE | 2018-01-16 20:07 | ED.VISSUMM ---
- ER Visit Summary Date of Service: 01/16/18 Chief Complaint: [Shortness of breath] History of Present Illness: The patient is a 68 M [presents the emergency department complaint of feeling short of breath due to the fact that he has had increased abdominal bloating and distention. Patient states that he had 2 bowel movements today and has been having bowel movements but he considers normally. Patient has no real abdominal pain but just feels uncomfortable due to all the bloating. Patient denies any chest pain. Patient has had some leg swelling for about a week. Patient does have a history of diabetes, hypertension, high cholesterol, coronary artery disease, chronic kidney disease, peripheral vascular disease, pulmonary hypertension. Patient has had a cholecystectomy in the past. Patient denies any blood in his stool or black tarry stools. He denies any fevers. Patient denies any cough.] Physical Examination: [HEENT-PERRLA, EOMI. Cranial nerves II through XII grossly intact. TMs clear. Mucous membranes moist. No adenopathy. Cardiovascular-regular rate and rhythm without murmur or ectopy Lungs-clear to auscultation, chest wall stable without crepitus or subcu emphysema Abdomen-normoactive bowel sounds, soft. Patient has diffuse distention of the abdomen but no fluid wave noted. There is no rebound, rigidity, or perineal signs. Extremities-intact ?4, normal range of motion, normal pulses, atraumatic] +2 edema both lower extremities. Test Results: [G obtained on arrival showed a sinus rhythm with a ventricular rate of 60 bpm with a first-degree AV block and a right bundle branch block noted. CBC with differential of 8.4, hemoglobin 12.9, hematocrit 40, platelets 246. Chemistries unremarkable. BUN was 33 creatinine 1.78. Glucose was 298. LFTs slightly elevated with ALT 127 and AST 135. Lipase was normal at 120. Troponin was less than 0.015. BNP was 283. Chest x-ray showed some mild pulmonary congestion cardiomegaly. CT scan of the abdomen and pelvis showed constipation otherwise nothing significant.] Emergency Department Course and Treatment: [At this point patient will be given a bottle of magnesium citrate for home] Treatment Plan: [Magnesium citrate for home and referral to general surgery winder contort operator] Disposition: [Discharged home in stable condition Impression: [Constipation Abdominal distention] This note was generated with [employer] dictation software. It may contain incorrect words, spelling, and punctuation that were not noted in review of the chart prior to signing ED Disposition - Plan for ED Patient: Chief Complaint: Shortness of Breath Referrals: Johnathan Batres Chi, MD [Primary Care Provider] -
--- NOTE | 2018-01-16 20:10 | ED.DCSUM_ITS ---
- ER Visit Summary Date of Service: 01/16/18 Chief Complaint: [Shortness of breath] History of Present Illness: The patient is a 68 M [presents the emergency department complaint of feeling short of breath due to the fact that he has had increased abdominal bloating and distention. Patient states that he had 2 bowel movements today and has been having bowel movements but he considers normally. Patient has no real abdominal pain but just feels uncomfortable due to all the bloating. Patient denies any chest pain. Patient has had some leg swelling for about a week. Patient does have a history of diabetes, hypertension, high cholesterol, coronary artery disease, chronic kidney disease , peripheral vascular disease, pulmonary hypertension. Patient has had a cholecystectomy in the past. Patient denies any blood in his stool or black tarry stools. He denies any fevers. Patient denies any cough.] Physical Examination: [HEENT-PERRLA, EOMI. Cranial nerves II through XII grossly intact. TMs clear. Mucous membranes moist. No adenopathy. Cardiovascular-regular rate and rhythm without murmur or ectopy Lungs-clear to auscultation, chest wall stable without crepitus or subcu emphysema Abdomen-normoactive bowel sounds, soft. Patient has diffuse distention of the abdomen but no fluid wave noted. There is no rebound, rigidity, or perineal signs. Extremities-intact ?4, normal range of motion, normal pulses, atraumatic] +2 edema both lower extremities. Test Results: [G obtained on arrival showed a sinus rhythm with a ventricular rate of 60 bpm with a first-degree AV block and a right bundle branch block noted. CBC with differential of 8.4, hemoglobin 12.9, hematocrit 40, platelets 246. Chemistries unremarkable. BUN was 33 creatinine 1.78. Glucose was 298. LFTs slightly elevated with ALT 127 and AST 135. Lipase was normal at 120. Troponin was less than 0.015. BNP was 283. Chest x-ray showed some mild pulmonary congestion cardiomegaly. CT scan of the abdomen and pelvis showed constipation otherwise nothing significant.] Emergency Department Course and Treatment: [At this point patient will be given a bottle of magnesium citrate for home] Treatment Plan: [Magnesium citrate for home and referral to general surgery international student advisor] Disposition: [Discharged home in stable condition Impression: [Constipation Abdominal distention] This note was generated with [employer] dictation software. It may contain incorrect words, spelling, and punctuation that were not noted in review of the chart prior to signing ED Disposition - Plan for ED Patient: Chief Complaint: Shortness of Breath Referrals: Johnathan Batres Chi, MD [Primary Care Provider] -
--- NOTE | 2018-01-16 20:10 | ED.DEP ---
ED Disposition - Plan for ED Patient: Chief Complaint: Shortness of Breath Instructions: ED Constipation Referrals: Johnathan Batres Chi, MD [Primary Care Provider] - Johnathan Gutierrez III, MD [[facility]] - Ihsan Gutierrez MD [STAFF PHYSICIAN] - 3-5 Days
[2018-01-16] MEDS: Magnesium Citrate 300 ML PO (20:14)
[2018-01-16 20:17] VITALS: BP 130/64; PULSE 60; RESP 18; O2SAT 96
== END 2018-01-16 20:18 | disposition home or self-care (01) ==
LOC: ED 18:44
PROVIDERS: Emergency Provider Emergency Medicine; Family Provider Family Medicine Geriatric Medicine; PCP Family Medicine Geriatric Medicine
DX: K59.00 Constipation, unspecified (principal); I25.10 Atherosclerotic heart disease of native coronary artery without angina pectoris; I12.9 Hypertensive chronic kidney disease with stage 1 through stage 4 chronic kidney disease, or unspecified chronic kidney disease; E11.22 Type 2 diabetes mellitus with diabetic chronic kidney disease; N18.9 Chronic kidney disease, unspecified; E78.00 Pure hypercholesterolemia, unspecified; I27.20 Pulmonary hypertension, unspecified; I73.9 Peripheral vascular disease, unspecified; Z79.4 Long term (current) use of insulin; Z79.84 Long term (current) use of oral hypoglycemic drugs; Z79.82 Long term (current) use of aspirin; Z79.01 Long term (current) use of anticoagulants; Z79.899 Other long term (current) drug therapy
CPT/HCPCS: 71045; 74176; 80053; 83690; 83880; 84484; 85025; 93005; 99285; A4216

== ENCOUNTER → 2018-01-17 11:49 | Outpatient (CLI) | payer MEDICARE, SELFPAY ==
[2018-01-17 12:49] LABS: Absolute Lymphocyte Count 0.99 X10^3/ul (0.83-4.51); Absolute Neutrophil Count 5.8 X10^3/uL (2.0-7.7); Basophil# 0.05 X10^3/uL; Basophil% 0.7 % (0-1); Eosinophil# 0.15 X10^3/uL; Hemoglobin 14.6 g/dl (13.0-16.5); Lymphocyte # 0.99 X10^3/ul (4.0); Lymphocyte % 13.3 % (19-41); Mean Corp Hgb Conc 32.4 g/gl (32-36); Mean Corpuscular Hgb 30.2 pg (27.0-32.0); Mean Corpuscular Volume 93.2 fL (80-94); Mean Platelet Vol. 10.9 fl (6.2-12.0); Monocyte# 0.42 X10^3/uL; Monocyte% 5.7 % (0-10); Neutrophil # 5.79 X10^3/uL (2.7-7.7); Neutrophil % 77.9 % (47-70); Platelet Count 248 K/mm3 (150-450); RBC Distribution Width CV 14.4 % (11.6-14.6); RBC Distribution Width SD 47.7 fl (35.1-43.9); Red Blood Count 4.83 M/mm3 (4.6-6.2); White Blood Count 7.4 K/mm3 (4.4-11.0)
[2018-01-17 12:54] LABS: POSITIVE COUNT NO; POSITIVE DIFFERENTIAL NO; POSITIVE MORPHOLOGY NO
[2018-01-17 13:00] LABS: Anion Gap 12 (5-15); BUN 36 mg/dL (7-18); BUN/Creat Ratio 22.2 RATIO (10-20); Calcium,Total 8.3 mg/dL (8.5-10.1); Chloride 97 mmol/L (98-107); Creatinine, Serum 1.62 mg/dL (0.70-1.30); EST Glomerular Filtration Rate 46 mL/min (>60); Est Glom Filt Rate - Afr Amer 55 mL/min (>60); Glucose 359 mg/dL (74-106); Potassium 4.4 mmol/L (3.5-5.1); Sodium Level 138 mmol/L (136-145)
[2018-01-17 13:12] LABS: BNP,B-Type NATRIURETIC PEPTIDE 380.6 pg/mL (0-100)
== END ==
PROVIDERS: Family Provider Family Medicine Geriatric Medicine; PCP Family Medicine Geriatric Medicine; Visit Provider Family Medicine Geriatric Medicine
DX: R06.02 Shortness of breath (principal)
CPT/HCPCS: 36415; 80048; 83880; 85025

== ENCOUNTER 2018-02-06 15:00 | Outpatient (RCR) | payer MEDICARE, SELFPAY ==
[2018-01-09 00:49] VITALS: BP 108/79; PULSE 77; RESP 20; TEMP 36.2
[2018-01-09 15:36] VITALS: BP 129/61; PULSE 58; RESP 16; TEMP 36.2
--- NOTE | 2018-01-10 21:23 | PCM.WC.PN ---
(1) Chronic ulcer of left foot with fat layer exposed Status: Chronic Current Visit: Yes Code(s): L97.522 - Non-pressure chronic ulcer of other part of left foot with fat layer exposed (2) PAD (peripheral artery disease) Status: Chronic Current Visit: Yes Code(s): I73.9 - Peripheral vascular disease, unspecified (3) Diabetes mellitus with neuropathy Status: Chronic Current Visit: Yes Code(s): E11.40 - Type 2 diabetes mellitus with diabetic neuropathy, unspecified (4) Malnutrition Status: Chronic Current Visit: Yes Code(s): E46 - Unspecified protein-calorie malnutrition (5) Delayed wound healing Status: Chronic Current Visit: Yes Code(s): T14.8 - Other injury of unspecified body region (6) Subungual hematoma of toe of right foot Status: Chronic Current Visit: Yes Code(s): S90.221A - Contusion of right lesser toe(s) with damage to nail, initial encounter Type of Wound Date of Service: 01/09/18 Chief Complaint: Left foot ulcer returned and new site. blood blister under great toenail right foot History of Wound: This 67-year-old male who was seen today for left foot ulceration. It is currently healed and he is here for check today. He denies fever, chill, nausea, vomiting, loss of appetite. He has a new left foot wound and asked about this today he reports his leg was actually swollen. He thinks his left foot ulcer has reopened. He wears Dr. comfort shoes. He also reports blood drainage and discoloration to his right great toe. He does not recall an injury or pain however he reports he does not have feeling due to his neuropathy. He denies fever, chill, nausea, vomiting, loss of appetite. He denies calf pain or shortness of breath or chest pain. Progress of Wound: Healed - Physical Exam Vital Signs Temp Pulse Resp BP 97.1 F L 58 L 16 129/61 H 01/09/18 15:36 01/09/18 15:36 01/09/18 15:36 01/09/18 15:36 General: Alert, Oriented x3, Cooperative Extremities: No cyanosis, Capillary Refill Less than 3 Seconds, No Calf Tenderness - Negative Rashad and Tenorio bilateral, Diminished Peripheral Pulses, Edema - Bilateral lower extremity mild, Tenderness - No pain with wound manipulation bilateral Skin: Ulcer/ Wound - No purulence, no erythema, streaking, odor, no deep tissue exposed, no infection bilateral lower extremity. The plantar left foot now has a return skin discontinuity and has a granular and fibrous base. There is also new skin discontinuity to the medial left foot that has granular base and is fairly superficial. There is loosening with subungual hematogenous and serous drainage on the right hallux. The nail is loose approximately 90%. The wound bed is intact without necrosis or infection upon an avulsion. The peripheral skin is atrophic and hairless bilateral lower extremities bilateral Wound Measurements and Assessment WC - Nurse 1 - General Ulcer Measurement Start: 01/09/18 15:36 Freq: Status: Active Protocol: Activity Type Activity Date Activity User E-Sign Co-Sign Detail Recorded Client Recorded Date Recorded By Document 01/09/18 15:36 [id number] 01/09/18 15:41 01/09/18 15:36 Wound Center Nurse 1 [Ulcer Assessment] #20 left medial LE -Combined with other wound No -Current Size (cm) - Length 0.9 -Current Size (cm) - Width 0.6 -Current Size (cm) - Depth 0.1 -Total Square Cm 0.54 -Date of Last Picture (Recall this 01/09/18 field) -Photo Taken Yes -Epithelialization None Present -Tunneling No -Undermining/Tunneling No -Circular Undermining No -Exudate Amt Small (1-33%) -Exudate Type Serosanguineous -Wound Margin Distinct, Outline Attached -Granulation Amt Medium (34-66%) -Granulation Quality [place] Red -Slough/Fibrin Yes -Necrosis Amt Medium (34-66%) -Necrotic Tissue Type Adherent Slough -Texture (Maggy-wound Skin Appearance) Assessed -Moisture (Maggy-wound Skin Appearance Assessed ) -Color (Maggy-wound Skin Appearance) Assessed -Temperature (Maggy-wound Skin No Abnormality Appearance) (Pt Warm) -Tenderness on Palpation (Maggy-wound No Skin Appearance) -Ulcer Cleansing Rinsed/ Irrigated with Saline -Foul Odor after Cleansing No -Anesthetic Used 4% Lidocaine Solution [Edema Assessment] -Lower Limb Edema Present No -Right Calf (cm) 37.5 -Right Ankle (cm) 21.3 -Left Calf (cm) 35.6 -Left Ankle (cm) 21.3 - Nurse 2 - General Ulcer CM Notes Start: 01/09/18 15:36 Freq: Status: Active Protocol: Activity Type Activity Date Activity User E-Sign Co-Sign Detail Recorded Client Recorded Date Recorded By Document 01/09/18 16:21 [id number] 01/09/18 16:25 01/09/18 16:21 Wound Center Nurse 2 [Procedure/Treatment] #20 left medial LE -Time 16:21 -Correct Patient Yes -Correct Side, Site, Position Yes -Correct Procedure Yes -Procedure Performed Yes -Type of Procedure Debridement -Clinical Debridement Subcutaneous -Post Debridement Size (cm) - Length 0.8 -Post Debridement Size (cm) - Width 0.4 -Post Debridement Size (cm) - Depth 0.1 -Total Square Cm 0.32 -Wound/Ulcer Outcome Not Healed -Ulcer Cleansing Rinsed/ Irrigated with Saline -Foul Odor after Cleansing No -Bioengineered Tissue No -Bleeding Controlled with Pressure -Treatment Response Procedure Tolerated Well #19 L Plantar -Time 16:23 -Correct Patient Yes -Correct Side, Site, Position Yes -Correct Procedure Yes -Procedure Performed Yes -Type of Procedure Debridement -Clinical Debridement Subcutaneous -Post Debridement Size (cm) - Length 1.1 -Post Debridement Size (cm) - Width 0.1 -Post Debridement Size (cm) - Depth 0.2 -Total Square Cm 0.11 -Wound/Ulcer Outcome Not Healed -Ulcer Cleansing Rinsed/ Irrigated with Saline -Foul Odor after Cleansing No -Bioengineered Tissue No -Bleeding Controlled with Pressure -Treatment Response Procedure Tolerated Well [See Physician Procedure note for Specifics] Pain Scale: 0-10 Numeric [Pain] -Is Patient Pain Free? Yes Musculoskeletal: No Tenderness to Palpation of Joints or Extremities, Muscle Wasting, - - Left transmetatarsal amputation Neurological: - - Lack of epicritic sensation light touch bilateral lower extremities Psych/Mental Status: Normal Affect, Appropriate Debridement Note Post-Debridement Measurements/Treatment - Nurse 2 - General Ulcer CM Notes Start: 01/09/18 15:36 Freq: Status: Active Protocol: Activity Type Activity Date Activity User E-Sign Co-Sign Detail Recorded Client Recorded Date Recorded By Document 01/09/18 16:21 [id number] 01/09/18 16:25 01/09/18 16:21 Wound Center Nurse 2 #20 left medial LE -Time 16:21 -Correct Patient Yes -Correct Side, Site, Position Yes -Correct Procedure Yes -Procedure Performed Yes -Type of Procedure Debridement -Clinical Debridement Subcutaneous -Post Debridement Size (cm) - Length 0.8 -Post Debridement Size (cm) - Width 0.4 -Post Debridement Size (cm) - Depth 0.1 -Total Square Cm 0.32 -Wound/Ulcer Outcome Not Healed -Ulcer Cleansing Rinsed/ Irrigated with Saline -Foul Odor after Cleansing No -Bioengineered Tissue No -Bleeding Controlled with Pressure -Treatment Response Procedure Tolerated Well #19 L Plantar -Time 16:23 -Correct Patient Yes -Correct Side, Site, Position Yes -Correct Procedure Yes -Procedure Performed Yes -Type of Procedure Debridement -Clinical Debridement Subcutaneous -Post Debridement Size (cm) - Length 1.1 -Post Debridement Size (cm) - Width 0.1 -Post Debridement Size (cm) - Depth 0.2 -Total Square Cm 0.11 -Wound/Ulcer Outcome Not Healed -Ulcer Cleansing Rinsed/ Irrigated with Saline -Foul Odor after Cleansing No -Bioengineered Tissue No -Bleeding Controlled with Pressure -Treatment Response Procedure Tolerated Well Pain Scale: 0-10 Numeric Is Patient Pain Free? Yes Wound debrided: medial foot Laterality: Left Wound Grade/Stage: grade 1 Type of Debridement: Excisional debridement Anesthesia Used: 4% Lidocaine Solution Depth: in the subcutaneous layer Percentage of wound debrided: 100 Instrument Used: #15 blade Tissue Removed: fibrous, devitalized subcutaneous, biofilm, slough Severity: Fat Layer Exposed Amount of bleeding with debridement: Mild Bleeding Controlled with: Pressure Patient tolerated procedure well - Additional Wound Wound debrided: plantar foot Laterality: Left Wound Grade/Stage: grade 1 Type of Debridement: Excisional debridement Anesthesia Used: 4% Lidocaine Solution Depth: in the subcutaneous layer Percentage of wound debrided: 100 Instrument Used: #15 blade Tissue Removed: fibrous, devitalized subcutaneous, biofilm, slough Severity: Fat Layer Exposed Amount of bleeding with debridement: Mild Bleeding Controlled with: Pressure Patient tolerated procedure: Patient tolerated procedure well Assessment/Plan Active Problems (Last Reviewed 10/15/17 @ 14:22 by Nataly Christian) Subungual hematoma of toe of right foot (Chronic) Chronic ulcer of left foot with fat layer exposed (Chronic) PAD (peripheral artery disease) (Chronic) Diabetes mellitus with neuropathy (Chronic) Malnutrition (Chronic) Delayed wound healing (Chronic) Assessment: Plantar foot left-returned, fat layer exposed. Left medial foot with fat layer exposed ulcer. Subungual hematoma without infection, Onycholysis; right hallux. peripheral vascular disease with recent intervention. diabetes with neuropathy. malnutrition. foot deformities: hammer toe right foot and equinus. non compliance history Plan: His left foot ulcer has returned and he has a new medial foot ulcer and left foot. He also has a new right hallux toenail issue. Subcutaneous excisional debridement was performed to the left foot 2 sites as noted in the clinical panel. Alcohol preparation was performed to the right hallux and verbal consent was obtained for toenail avulsion. This is performed according to standard protocol and direct pressure was applied to maintain hemostasis. Local anesthesia was not required due to neuropathy and lack of pain or discomfort. A dressing of Aquacel was applied and he can change this daily. A formal wound care plan will further be investigated initiated if he has delays in healing noted. He was reassured no deep wound necrosis or infection was noted at this right hallux site. To offload: continue heel weight bear with offloading surgical shoes bilateral; additional fell offloading material was further adjusted and he demonstrates improvement. He will continue surgical shoes and will return with his diabetic shoes for evaluation prior to progression and after the wounds have healed. To continue changing this at home and to monitor for local signs of infection which is not noted today. To resume nutritional supplementation because he now has new wounds and this will optimize healing. His non invasive vascular studies were previously reviewed and he had angio with stent to left lower extremity with Dr. Redding. To follow up as advised. He did recently follow-up in the notes will be requested. It is noted he had a previous left procedures performed by Dr. Redding. He was reassured there are no acute signs of infection today. Continue compression dressings and elevation. Tubigrip applied. . To return to clinic in 1 week or call sooner if he has any questions or concerns.
[2018-01-16 15:00] VITALS: BP 106/54; PULSE 60; RESP 14; TEMP 36.7
--- NOTE | 2018-01-16 16:48 | PN.PCM_ITS ---
(1) Chronic ulcer of left foot with fat layer exposed Status: Chronic Current Visit: Yes Code(s): L97.522 - Non-pressure chronic ulcer of other part of left foot with fat layer exposed (2) PAD (peripheral artery disease) Status: Chronic Current Visit: Yes Code(s): I73.9 - Peripheral vascular disease, unspecified (3) Diabetes mellitus with neuropathy Status: Chronic Current Visit: Yes Code(s): E11.40 - Type 2 diabetes mellitus with diabetic neuropathy, unspecified (4) Malnutrition Status: Chronic Current Visit: Yes Code(s): E46 - Unspecified protein- calorie malnutrition (5) Delayed wound healing Status: Chronic Current Visit: Yes Code(s): T14.8 - Other injury of unspecified body region (6) Subungual hematoma of toe of right foot Status: Chronic Current Visit: Yes Code(s): S90.221A - Contusion of right lesser toe(s) with damage to nail, initial encounter Type of Wound Date of Service: 01/17/18 Chief Complaint: Left foot ulcer returned and new site. follow-up of right great toe nail avulsion History of Wound: This 68-year-old male who was seen today for left foot ulceration. It is currently healed and he is here for check today. He denies fever, chill, nausea, vomiting, loss of appetite. He wears Dr. comfort shoes and also surgical shoes. His drainage and redness has resolved to the right great toe he thinks the site is healed however he admits he has extreme difficulty seeing. He does not recall an injury or pain however he reports he does not have feeling due to his neuropathy. He denies fever, chill, nausea, vomiting, loss of appetite. He reports additional abdominal swelling discomfort and difficulty breathing. He plans to see his primary care physician or go to the emergency room today. Progress of Wound: Stable left. Healed nail avulsion site right hallux - Physical Exam Vital Signs Temp Pulse Resp BP 98.0 F 60 14 106/54 L 01/16/18 15:00 01/16/18 15:00 01/16/18 15:00 01/16/18 15:00 General: Alert, Oriented x3, Cooperative HEENT: Atraumatic Extremities: No cyanosis, Capillary Refill Less than 3 Seconds - To all toes of the right foot into the transmetatarsal amputation stump site on the left lower extremity, No Calf Tenderness - Negative Rashad and Tenorio bilateral, Diminished Peripheral Pulses, Edema Skin: Ulcer/ Wound - No purulence, no erythema, skin, no odor, no infection bilateral. The skin is atrophic and hairless. There is full epithelialization noted to the right nailbed and there are no wounds or maceration to the right foot. The left foot does have a skin discontinuity of the plantar aspect with a granular base and peripheral callus formation. There are no additional lacerations or skin discontinuity noted to the left lower extremity. Wound Measurements and Assessment WC - Nurse 1 - General Ulcer Measurement Start: 01/09/18 15:36 Freq: Status: Active Protocol: Activity Type Activity Date Activity User E-Sign Co-Sign Detail Recorded Client Recorded Date Recorded By Document 01/16/18 15:00 [id number] 01/16/18 15:03 01/16/18 15:00 Wound Center Nurse 1 [Ulcer Assessment] #20 left medial LE -Current Size (cm) - Length 0.1 -Current Size (cm) - Width 0.1 -Current Size (cm) - Depth 0.1 -Total Square Cm 0.01 -Photo Taken No -Epithelialization Large 67-100% -Tunneling No -Undermining/Tunneling No -Circular Undermining No -Temperature (Maggy-wound Skin No Abnormality Appearance) (Pt Warm) -Tenderness on Palpation (Maggy-wound No Skin Appearance) -Ulcer Cleansing Rinsed/ Irrigated with Saline -Foul Odor after Cleansing No -Anesthetic Used 5% Lidocaine Gel #19 L Plantar -Combined with other wound No -Current Size (cm) - Length 1.7 -Current Size (cm) - Width 0.1 -Current Size (cm) - Depth 0.2 -Total Square Cm 0.17 -Photo Taken No -Epithelialization Medium 34-66% -Tunneling No -Undermining/Tunneling No -Circular Undermining No -Exudate Amt Small (1-33%) -Exudate Type Serosanguineous -Wound Margin Distinct, Outline Attached -Granulation Amt Small (1-33%) -Granulation Quality Red -Slough/Fibrin Yes -Necrosis Amt None Present (0 %) -Necrotic Tissue Type Adherent Slough -Structure Exposed None/Limited to Skin Breakdown -Texture (Maggy-wound Skin Appearance) No Abnormality Assessed -Moisture (Maggy-wound Skin Appearance No Abnormality ) Assessed -Color (Maggy-wound Skin Appearance) No Abnormality Assessed -Temperature (Maggy-wound Skin No Abnormality Appearance) (Pt Warm) -Tenderness on Palpation (Maggy-wound Yes Skin Appearance) -Ulcer Cleansing Rinsed/ Irrigated with Saline -Foul Odor after Cleansing No -Anesthetic Used 5% Lidocaine Gel [Edema Assessment] -Lower Limb Edema Present No -Right Calf (cm) 23.5 -Right Ankle (cm) 37 -Left Calf (cm) 21 -Left Ankle (cm) 37.5 WC - Nurse 2 - General Ulcer CM Notes Start: 01/09/18 15:36 Freq: Status: Active Protocol: Activity Type Activity Date Activity User E-Sign Co-Sign Detail Recorded Client Recorded Date Recorded By Document 01/16/18 15:38 [id number] 01/16/18 15:45 01/16/18 15:38 Wound Center Nurse 2 [Procedure/Treatment] #20 left medial LE -Time 15:43 -Correct Patient Yes -Correct Side, Site, Position Yes -Correct Procedure Yes -Procedure Performed Yes -Post Debridement Size (cm) - Length 0 -Post Debridement Size (cm) - Width 0 -Post Debridement Size (cm) - Depth 0 -Total Square Cm 0 -Wound/Ulcer Outcome Healed- Epithelialized -Ulcer Cleansing Rinsed/ Irrigated with Saline -Foul Odor after Cleansing No -Bioengineered Tissue No -Topical Lidocaine (%) 4 -Bleeding Controlled with NA -Treatment Response Procedure Tolerated Well #19 L Plantar -Time 15:44 -Correct Patient Yes -Correct Side, Site, Position Yes -Correct Procedure Yes -Procedure Performed Yes -Type of Procedure Debridement -Clinical Debridement Subcutaneous -Post Debridement Size (cm) - Length 1.8 -Post Debridement Size (cm) - Width 0.2 -Post Debridement Size (cm) - Depth 0.2 -Total Square Cm 0.36 -Wound/Ulcer Outcome Not Healed -Ulcer Cleansing Rinsed/ Irrigated with Saline -Foul Odor after Cleansing No -Bioengineered Tissue No -Topical Lidocaine (%) 4 -Bleeding Controlled with Pressure -Treatment Response Procedure Tolerated Well [See Physician Procedure note for Specifics] Pain Scale: 0-10 Numeric [Pain] -Is Patient Pain Free? Yes Musculoskeletal: No Tenderness to Palpation of Joints or Extremities, Muscle Wasting Neurological: - - Lack of epicritic sensation light touch bilateral lower extremities Psych/Mental Status: Normal Affect, Appropriate Debridement Note Post-Debridement Measurements/Treatment WC - Nurse 2 - General Ulcer CM Notes Start: 01/09/18 15:36 Freq: Status: Active Protocol: Activity Type Activity Date Activity User E-Sign Co-Sign Detail Recorded Client Recorded Date Recorded By Document 01/09/18 16:21 [id number] 01/09/18 16:25 Document 01/16/18 15:38 [id number] 01/16/18 15:45 TM 01/09/18 01/16/18 16:21 15:38 Wound Center Nurse 2 #20 left medial LE -Time 16:21 15:43 -Correct Patient Yes Yes -Correct Side, Site, Position Yes Yes -Correct Procedure Yes Yes -Procedure Performed Yes Yes -Type of Procedure Debridement -Clinical Debridement Subcutaneous -Post Debridement Size (cm) - Length 0.8 0 -Post Debridement Size (cm) - Width 0.4 0 -Post Debridement Size (cm) - Depth 0.1 0 -Total Square Cm 0.32 0 -Wound/Ulcer Outcome Not Healed Healed- Epithelialized -Ulcer Cleansing Rinsed/ Rinsed/ Irrigated with Irrigated with Saline Saline -Foul Odor after Cleansing No No -Bioengineered Tissue No No -Topical Lidocaine (%) 4 -Bleeding Controlled with Pressure NA -Treatment Response Procedure Procedure Tolerated Well Tolerated Well #19 L Plantar -Time 16:23 15:44 -Correct Patient Yes Yes -Correct Side, Site, Position Yes Yes -Correct Procedure Yes Yes -Procedure Performed Yes Yes -Type of Procedure Debridement Debridement -Clinical Debridement Subcutaneous Subcutaneous -Post Debridement Size (cm) - Length 1.1 1.8 -Post Debridement Size (cm) - Width 0.1 0.2 -Post Debridement Size (cm) - Depth 0.2 0.2 -Total Square Cm 0.11 0.36 -Wound/Ulcer Outcome Not Healed Not Healed -Ulcer Cleansing Rinsed/ Rinsed/ Irrigated with Irrigated with Saline Saline -Foul Odor after Cleansing No No -Bioengineered Tissue No No -Topical Lidocaine (%) 4 -Bleeding Controlled with Pressure Pressure -Treatment Response Procedure Procedure Tolerated Well Tolerated Well Pain Scale: 0-10 Numeric Is Patient Pain Free? Yes Yes Wound debrided: plantar foot Laterality: Left Wound Grade/Stage: grade 1 Type of Debridement: Excisional debridement Anesthesia Used: 5% Lidocaine Gel Depth: in the subcutaneous layer Percentage of wound debrided: 100 Instrument Used: #15 blade Tissue Removed: fibrous, devitalized subcutaneous, biofilm, slough Assessment/Plan Active Problems (Last Reviewed 10/15/17 @ 14:22 by Nataly Christian) Subungual hematoma of toe of right foot (Chronic) Chronic ulcer of left foot with fat layer exposed (Chronic) PAD (peripheral artery disease) (Chronic) Diabetes mellitus with neuropathy (Chronic) Malnutrition (Chronic) Delayed wound healing (Chronic) Assessment: Plantar foot left-returned, fat layer exposed. Left medial foot with fat layer exposed ulcer. Subungual hematoma without infection, Onycholysis ; right hallux. peripheral vascular disease with recent intervention. diabetes with neuropathy. malnutrition. foot deformities: hammer toe right foot and equinus. non compliance history Plan: His left foot ulcer has returned and he has a new medial foot ulcer and left foot. He also has a new right hallux toenail issue. Subcutaneous excisional debridement was performed to the left foot as noted in the clinical panel. To resume offloading surgical shoe; compliance was discussed. To resume nutritional supplementation because he now has new wounds and this will optimize healing. His non invasive vascular studies were previously reviewed and he had angio with stent to left lower extremity with Dr. Redding. To follow up as advised. He did recently follow-up in the notes will be requested. It is noted he had a previous left procedures performed by Dr. Redding. He was reassured there are no acute signs of infection today. Continue compression dressings and elevation. Tubigrip applied. To follow up with pcp today as he has scheduled for his abnominal distention and discomfort. He is overall stable during his visit at the wound center today. . To return to clinic in 1 week or call sooner if he has any questions or concerns.
[2018-01-23 14:58] VITALS: BP 125/57; PULSE 67; RESP 20; TEMP 36.5
--- NOTE | 2018-01-23 19:15 | PCM.WC.PN ---
(1) Chronic ulcer of left foot with fat layer exposed Status: Chronic Current Visit: Yes Code(s): L97.522 - Non-pressure chronic ulcer of other part of left foot with fat layer exposed (2) PAD (peripheral artery disease) Status: Chronic Current Visit: Yes Code(s): I73.9 - Peripheral vascular disease, unspecified (3) Diabetes mellitus with neuropathy Status: Chronic Current Visit: Yes Code(s): E11.40 - Type 2 diabetes mellitus with diabetic neuropathy, unspecified (4) Malnutrition Status: Chronic Current Visit: Yes Code(s): E46 - Unspecified protein-calorie malnutrition (5) Delayed wound healing Status: Chronic Current Visit: Yes Code(s): T14.8 - Other injury of unspecified body region (6) Subungual hematoma of toe of right foot Status: Chronic Current Visit: Yes Code(s): S90.221A - Contusion of right lesser toe(s) with damage to nail, initial encounter Type of Wound Date of Service: 01/23/18 Chief Complaint: Left foot ulcer returned and new site. follow-up of right great toe nail avulsion History of Wound: This 68-year-old male who was seen today for left foot ulceration. It is currently healed and he is here for check today. He denies fever, chill, nausea, vomiting, loss of appetite. He wears Dr. comfort shoes and also surgical shoes. His drainage and redness has resolved to the right great toe he thinks the site is healed . He denies fever, chill, nausea, vomiting, loss of appetite. He reports additional abdominal swelling discomfort and difficulty breathing. He was evaluated by his general doctor last week who placed him on a laxative to address his abdominal discomfort it has mildly improved.; Progress of Wound: Stable left. Healed nail avulsion site right hallux - Physical Exam Vital Signs Temp Pulse Resp BP 97.7 F L 67 20 H 125/57 H 01/23/18 14:58 01/23/18 14:58 01/23/18 14:58 01/23/18 14:58 General: Alert, Oriented x3, Cooperative HEENT: Atraumatic Extremities: No cyanosis, Capillary Refill Less than 3 Seconds, No Calf Tenderness - Negative Rashad and Tenorio sign bilateral, Diminished Peripheral Pulses, Edema - Bilateral lower extremity mild Skin: Ulcer/ Wound - No purulence, no erythema, streaking, no odor, no infection. There is continued skin discontinuity with subcutaneous exposed tissue to the left plantar foot. No deep tissue exposure necrosis noted. The peripheral skin is atrophic and hairless. There is no skin discontinuity or drainage noted the right lower extremity, - - Transmetatarsal amputation site left Wound Measurements and Assessment WC - Nurse 1 - General Ulcer Measurement Start: 01/09/18 15:36 Freq: Status: Active Protocol: Activity Type Activity Date Activity User E-Sign Co-Sign Detail Recorded Client Recorded Date Recorded By Document 01/23/18 14:58 PR [id number] 01/23/18 15:07 PR 01/23/18 14:58 Wound Center Nurse 1 [Ulcer Assessment] #19 L Plantar -Combined with other wound No -Current Size (cm) - Length 2 -Current Size (cm) - Width 0.2 -Current Size (cm) - Depth 0.2 -Total Square Cm 0.4 -Photo Taken No -Tunneling No -Undermining/Tunneling No -Circular Undermining No -Classification - Thickness Full Thickness without Exposed Support Structure -Exudate Amt Small (1-33%) -Exudate Type Serosanguineous -Wound Margin Distinct, Outline Attached -Granulation Amt Large (67-100%) -Granulation Quality Red -Slough/Fibrin Yes -Necrosis Amt Small (1-33%) -Necrotic Tissue Type Adherent Slough -Structure Exposed N/A -Texture (Maggy-wound Skin Appearance) Callus -Moisture (Maggy-wound Skin Appearance Assessed ) -Color (Maggy-wound Skin Appearance) Assessed -Temperature (Maggy-wound Skin No Abnormality Appearance) (Pt Warm) -Tenderness on Palpation (Maggy-wound No Skin Appearance) -Ulcer Cleansing Rinsed/ Irrigated with Saline -Foul Odor after Cleansing No -Anesthetic Used 4% Lidocaine Solution [Edema Assessment] -Lower Limb Edema Present Yes -Right Calf (cm) 38.5 -Right Ankle (cm) 22.5 -Left Calf (cm) 38.5 -Left Ankle (cm) 24 WC - Nurse 2 - General Ulcer CM Notes Start: 01/09/18 15:36 Freq: Status: Active Protocol: Activity Type Activity Date Activity User E-Sign Co-Sign Detail Recorded Client Recorded Date Recorded By Document 01/23/18 15:18 [id number] 01/23/18 15:23 01/23/18 15:18 Wound Center Nurse 2 [Procedure/Treatment] #19 L Plantar -Time 15:19 -Correct Patient Yes -Correct Side, Site, Position Yes -Correct Procedure Yes -Procedure Performed Yes -Type of Procedure Debridement -Clinical Debridement Subcutaneous -Post Debridement Size (cm) - Length 2.1 -Post Debridement Size (cm) - Width 0.3 -Post Debridement Size (cm) - Depth 0.2 -Total Square Cm 0.63 -Wound/Ulcer Outcome Not Healed -Ulcer Cleansing Rinsed/ Irrigated with Saline -Foul Odor after Cleansing No -Bioengineered Tissue No -Topical Lidocaine (%) 4 -Bleeding Controlled with Pressure -Treatment Response Procedure Tolerated Well [See Physician Procedure note for Specifics] Pain Scale: 0-10 Numeric [Pain] -Is Patient Pain Free? Yes Musculoskeletal: No Tenderness to Palpation of Joints or Extremities, Muscle Wasting Neurological: - - Lack of epicritic sensation light touch bilateral lower extremities Psych/Mental Status: Normal Affect, Appropriate Debridement Note Post-Debridement Measurements/Treatment WC - Nurse 2 - General Ulcer CM Notes Start: 01/09/18 15:36 Freq: Status: Active Protocol: Activity Type Activity Date Activity User E-Sign Co-Sign Detail Recorded Client Recorded Date Recorded By Document 01/09/18 16:21 [id number] 01/09/18 16:25 Document 01/16/18 15:38 [id number] 01/16/18 15:45 Document 01/23/18 15:18 [id number] 01/23/18 15:23 01/09/18 01/16/18 01/23/18 16:21 15:38 15:18 Wound Center Nurse 2 #20 left medial LE -Time 16:21 15:43 -Correct Patient Yes Yes -Correct Side, Site, Position Yes Yes -Correct Procedure Yes Yes -Procedure Performed Yes Yes -Type of Procedure Debridement -Clinical Debridement Subcutaneous -Post Debridement Size (cm) - Length 0.8 0 -Post Debridement Size (cm) - Width 0.4 0 -Post Debridement Size (cm) - Depth 0.1 0 -Total Square Cm 0.32 0 -Wound/Ulcer Outcome Not Healed Healed- Epithelialized -Ulcer Cleansing Rinsed/ Rinsed/ Irrigated with Irrigated with Saline Saline -Foul Odor after Cleansing No No -Bioengineered Tissue No No -Topical Lidocaine (%) 4 -Bleeding Controlled with Pressure NA -Treatment Response Procedure Procedure Tolerated Well Tolerated Well #19 L Plantar -Time 16:23 15:44 15:19 -Correct Patient Yes Yes Yes -Correct Side, Site, Position Yes Yes Yes -Correct Procedure Yes Yes Yes -Procedure Performed Yes Yes Yes -Type of Procedure Debridement Debridement Debridement -Clinical Debridement Subcutaneous Subcutaneous Subcutaneous -Post Debridement Size (cm) - Length 1.1 1.8 2.1 -Post Debridement Size (cm) - Width 0.1 0.2 0.3 -Post Debridement Size (cm) - Depth 0.2 0.2 0.2 -Total Square Cm 0.11 0.36 0.63 -Wound/Ulcer Outcome Not Healed Not Healed Not Healed -Ulcer Cleansing Rinsed/ Rinsed/ Rinsed/ Irrigated with Irrigated with Irrigated with Saline Saline Saline -Foul Odor after Cleansing No No No -Bioengineered Tissue No No No -Topical Lidocaine (%) 4 4 -Bleeding Controlled with Pressure Pressure Pressure -Treatment Response Procedure Procedure Procedure Tolerated Well Tolerated Well Tolerated Well Pain Scale: 0-10 Numeric Is Patient Pain Free? 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 Subungual hematoma without infection, Onycholysis; right hallux- healed nail avulsion site. peripheral vascular disease with recent intervention. diabetes with neuropathy. malnutrition. foot deformities: hammer toe right foot and equinus. non compliance history Plan: He is following up for his chronic recurrent left foot ulcer. He also had a new right hallux toenail issue. His nail avulsion site remains healed this week. Subcutaneous excisional debridement was performed to the left foot as noted in the clinical panel. To resume offloading surgical shoe; compliance was discussed. A prescription for pediatric surgical shoe with offloading dual density Plastizote liner was provided; he will obtain [facility] at [facility]. It is noted he difficulty tripping over the extended border of his left surgical shoe due to his transmetatarsal amputation shorter foot structure. To resume nutritional supplementation because he now has new wounds and this will optimize healing. His non invasive vascular studies were previously reviewed and he had angio with stent to left lower extremity with Dr. Redding. To follow up as advised. He did recently follow-up in the notes will be requested. It is noted he had a previous left procedures performed by Dr. Redding. He was reassured there are no acute signs of infection today. Continue compression dressings and elevation. Tubigrip applied. It is noted he did follow-up with his primary physician as advised for his abdominal discomfort last week and this is being addressed. . To return to clinic in 1 week or call sooner if he has any questions or concerns.
[2018-02-06 15:05] VITALS: BP 136/78; PULSE 78; RESP 18; TEMP 37.1
--- NOTE | 2018-02-06 15:50 | PN.PCM_ITS ---
(1) Chronic ulcer of left foot with fat layer exposed Status: Chronic Code(s): L97.522 - Non-pressure chronic ulcer of other part of left foot with fat layer exposed (2) PAD (peripheral artery disease) Status: Chronic Code(s): I73.9 - Peripheral vascular disease, unspecified (3) Diabetes mellitus with neuropathy Status: Chronic Code(s): E11.40 - Type 2 diabetes mellitus with diabetic neuropathy, unspecified (4) Malnutrition Status: Chronic Code(s): E46 - Unspecified protein-calorie malnutrition (5) Delayed wound healing Status: Chronic Code(s): T14.8 - Other injury of unspecified body region Type of Wound Date of Service: 02/10/18 Chief Complaint: Left foot ulcer History of Wound: This 68-year-old male who was seen today for left foot ulceration. It is currently healed and he is here for check today. He denies fever, chill, nausea, vomiting, loss of appetite. He wears surgical shoes. Progress of Wound: Stable - Physical Exam Vital Signs Temp Pulse Resp BP 98.7 F 78 18 136/78 H 02/06/18 15:05 02/06/18 15:05 02/06/18 15:05 02/06/18 15:05 General: Alert, Oriented x3, Cooperative Extremities: No cyanosis, Capillary Refill Less than 3 Seconds, No Calf Tenderness, Diminished Peripheral Pulses, Edema Skin: Ulcer/ Wound - No purulence, no erythema, streaking, odor, no infection left foot. Peripheral skin is atrophic and hairless Wound Measurements and Assessment WC - Nurse 1 - General Ulcer Measurement Start: 01/09/18 15:36 Freq: Status: Active Protocol: Activity Type Activity Date Activity User E-Sign Co-Sign Detail Recorded Client Recorded Date Recorded By Document 02/06/18 15:05 RB [id number] 02/06/18 15:13 RB 02/06/18 15:05 Wound Center Nurse 1 [Ulcer Assessment] #19 L Plantar -Combined with other wound No -Current Size (cm) - Length 0.4 -Current Size (cm) - Width 0.1 -Current Size (cm) - Depth 0.2 -Total Square Cm 0.04 -Photo Taken No -Tunneling No -Undermining/Tunneling No -Circular Undermining No -Classification - Thickness Full Thickness without Exposed Support Structure -Exudate Amt Small (1-33%) -Exudate Type Serosanguineous -Wound Margin Thickened -Granulation Amt Large (67-100%) -Granulation Quality [place] -Slough/Fibrin Yes -Necrosis Amt Small (1-33%) -Necrotic Tissue Type Adherent Slough -Structure Exposed N/A -Texture (Maggy-wound Skin Appearance) Callus -Moisture (Maggy-wound Skin Appearance Assessed ) -Color (Maggy-wound Skin Appearance) Assessed -Temperature (Maggy-wound Skin No Abnormality Appearance) (Pt Warm) -Tenderness on Palpation (Maggy-wound No Skin Appearance) -Ulcer Cleansing Rinsed/ Irrigated with Saline -Foul Odor after Cleansing No -Anesthetic Used 5% Lidocaine Gel [Edema Assessment] -Lower Limb Edema Present Yes -Right Calf (cm) 37.5 -Right Ankle (cm) 22 -Point of measurement (cm from the 36.5 medial instep) -Point of Measurement (cm from the 23.3 medial instep) WC - Nurse 2 - General Ulcer CM Notes Start: 01/09/18 15:36 Freq: Status: Active Protocol: Activity Type Activity Date Activity User E-Sign Co-Sign Detail Recorded Client Recorded Date Recorded By Document 02/06/18 15:39 [id number] 02/06/18 15:40 02/06/18 15:39 Wound Center Nurse 2 [Procedure/Treatment] #19 L Plantar -Time 15:40 -Correct Patient Yes -Correct Side, Site, Position Yes -Correct Procedure Yes -Procedure Performed Yes -Type of Procedure Debridement -Clinical Debridement Subcutaneous -Post Debridement Size (cm) - Length 1.0 -Post Debridement Size (cm) - Width 0.3 -Post Debridement Size (cm) - Depth 0.1 -Total Square Cm 0.30 -Wound/Ulcer Outcome Not Healed -Ulcer Cleansing Rinsed/ Irrigated with Saline -Foul Odor after Cleansing No -Bioengineered Tissue No -Bleeding Controlled with Pressure -Treatment Response Procedure Tolerated Well [See Physician Procedure note for Specifics] Pain Scale: 0-10 Numeric [Pain] -Is Patient Pain Free? Yes Musculoskeletal: No Tenderness to Palpation of Joints or Extremities, Muscle Wasting, - - Left transmetatarsal amputation Neurological: - - Lack of epicritic sensation light touch left and right lower extremity Psych/Mental Status: Normal Affect, Appropriate Debridement Note Post-Debridement Measurements/Treatment WC - Nurse 2 - General Ulcer CM Notes Start: 01/09/18 15:36 Freq: Status: Active Protocol: Activity Type Activity Date Activity User E-Sign Co-Sign Detail Recorded Client Recorded Date Recorded By Document 01/09/18 16:21 [id number] 01/09/18 16:25 Document 01/16/18 15:38 [id number] 01/16/18 15:45 TM Document 01/23/18 15:18 [id number] 01/23/18 15:23 Document 02/06/18 15:39 [id number] 02/06/18 15:40 01/09/18 01/16/18 01/23/18 16:21 15:38 15:18 Wound Center Nurse 2 #20 left medial LE -Time 16:21 15:43 -Correct Patient Yes Yes -Correct Side, Site, Position Yes Yes -Correct Procedure Yes Yes -Procedure Performed Yes Yes -Type of Procedure Debridement -Clinical Debridement Subcutaneous -Post Debridement Size (cm) - Length 0.8 0 -Post Debridement Size (cm) - Width 0.4 0 -Post Debridement Size (cm) - Depth 0.1 0 -Total Square Cm 0.32 0 -Wound/Ulcer Outcome Not Healed Healed- Epithelialized -Ulcer Cleansing Rinsed/ Rinsed/ Irrigated with Irrigated with Saline Saline -Foul Odor after Cleansing No No -Bioengineered Tissue No No -Topical Lidocaine (%) 4 -Bleeding Controlled with Pressure NA -Treatment Response Procedure Procedure Tolerated Well Tolerated Well #19 L Plantar -Time 16:23 15:44 15:19 -Correct Patient Yes Yes Yes -Correct Side, Site, Position Yes Yes Yes -Correct Procedure Yes Yes Yes -Procedure Performed Yes Yes Yes -Type of Procedure Debridement Debridement Debridement -Clinical Debridement Subcutaneous Subcutaneous Subcutaneous -Post Debridement Size (cm) - Length 1.1 1.8 2.1 -Post Debridement Size (cm) - Width 0.1 0.2 0.3 -Post Debridement Size (cm) - Depth 0.2 0.2 0.2 -Total Square Cm 0.11 0.36 0.63 -Wound/Ulcer Outcome Not Healed Not Healed Not Healed -Ulcer Cleansing Rinsed/ Rinsed/ Rinsed/ Irrigated with Irrigated with Irrigated with Saline Saline Saline -Foul Odor after Cleansing No No No -Bioengineered Tissue No No No -Topical Lidocaine (%) 4 4 -Bleeding Controlled with Pressure Pressure Pressure -Treatment Response Procedure Procedure Procedure Tolerated Well Tolerated Well Tolerated Well Pain Scale: 0-10 Numeric Is Patient Pain Free? Yes Yes Yes 02/06/18 15:39 Wound Center Nurse 2 #20 left medial LE -Time -Correct Patient -Correct Side, Site, Position -Correct Procedure -Procedure Performed -Type of Procedure -Clinical Debridement -Post Debridement Size (cm) - Length -Post Debridement Size (cm) - Width -Post Debridement Size (cm) - Depth -Total Square Cm -Wound/Ulcer Outcome -Ulcer Cleansing -Foul Odor after Cleansing -Bioengineered Tissue -Topical Lidocaine (%) -Bleeding Controlled with -Treatment Response #19 L Plantar -Time 15:40 -Correct Patient Yes -Correct Side, Site, Position Yes -Correct Procedure Yes -Procedure Performed Yes -Type of Procedure Debridement -Clinical Debridement Subcutaneous -Post Debridement Size (cm) - Length 1.0 -Post Debridement Size (cm) - Width 0.3 -Post Debridement Size (cm) - Depth 0.1 -Total Square Cm 0.30 -Wound/Ulcer Outcome Not Healed -Ulcer Cleansing Rinsed/ Irrigated with Saline -Foul Odor after Cleansing No -Bioengineered Tissue No -Topical Lidocaine (%) -Bleeding Controlled with Pressure -Treatment Response Procedure Tolerated Well Pain Scale: 0-10 Numeric Is Patient Pain Free? Yes Wound debrided: plantar foot Laterality: Left Wound Grade/Stage: grade 1 Type of Debridement: Excisional debridement Anesthesia Used: 4% Lidocaine Solution Depth: in the subcutaneous layer Percentage of wound debrided: 100 Instrument Used: #15 blade Tissue Removed: fibrous, devitalized subcutaneous, biofilm, slough, callous Severity: Fat Layer Exposed Amount of bleeding with debridement: Mild Bleeding Controlled with: Pressure Patient tolerated procedure well Assessment/Plan Assessment: Plantar foot left-returned, fat layer exposed - hardy grade 1. Subungual hematoma without infection, Onycholysis; right hallux- healed nail avulsion site. peripheral vascular disease with recent intervention. diabetes with neuropathy. malnutrition. foot deformities: hammer toe right foot and equinus. non compliance history Plan: He is following up for his chronic recurrent left foot ulcer. To resume offloading surgical shoe; compliance was discussed. A prescription for pediatric surgical shoe with offloading dual density Plastizote liner was provided; he was advised to previously obtain this at the foot [facility] ankle center. It is also ok if he obtains a cam walker with offloading pocket fabricated. It is noted he difficulty tripping over the extended border of his left surgical shoe due to his transmetatarsal amputation shorter foot structure. To resume nutritional supplementation because he now has new wounds and this will optimize healing. His non invasive vascular studies were previously reviewed and he had angio with stent to left lower extremity with Dr. Redding. To follow up as advised. He did recently follow-up in the notes will be requested. It is noted he had a previous left procedures performed by Dr. Redding. He was reassured there are no acute signs of infection today. Continue compression dressings and elevation. Tubigrip applied. It is noted he did follow-up with his primary physician as advised for his abdominal discomfort last week and this is being addressed. . To return to clinic in 1 week or call sooner if he has any questions or concerns.
== END 2018-02-08 23:59 ==
LOC: WC 15:00
PROVIDERS: Family Provider Family Medicine Geriatric Medicine; PCP Family Medicine Geriatric Medicine; Visit Provider Podiatrist
DX: E11.621 Type 2 diabetes mellitus with foot ulcer (principal); E11.51 Type 2 diabetes mellitus with diabetic peripheral angiopathy without gangrene; E11.40 Type 2 diabetes mellitus with diabetic neuropathy, unspecified; L97.522 Non-pressure chronic ulcer of other part of left foot with fat layer exposed; I25.10 Atherosclerotic heart disease of native coronary artery without angina pectoris; I12.9 Hypertensive chronic kidney disease with stage 1 through stage 4 chronic kidney disease, or unspecified chronic kidney disease; E11.22 Type 2 diabetes mellitus with diabetic chronic kidney disease; N18.9 Chronic kidney disease, unspecified; E78.00 Pure hypercholesterolemia, unspecified; I27.20 Pulmonary hypertension, unspecified; L60.1 Onycholysis; M20.41 Other hammer toe(s) (acquired), right foot; Z91.19 Patient's noncompliance with other medical treatment and regimen; K59.00 Constipation, unspecified; Z79.4 Long term (current) use of insulin; Z79.84 Long term (current) use of oral hypoglycemic drugs; Z79.82 Long term (current) use of aspirin; Z79.01 Long term (current) use of anticoagulants; Z79.899 Other long term (current) drug therapy; R06.02 Shortness of breath
CPT/HCPCS: 11042; 11730; 71045; 74176; 80053; 83690; 83880; 84484; 85025; 93005; 99285; A4216

== ENCOUNTER 2018-02-13 14:43 | Outpatient (RCR) | payer MEDICARE, SELFPAY ==
[2018-02-09 00:57] VITALS: BP 136/78; PULSE 78; RESP 18; TEMP 37.1
[2018-02-13 15:01] VITALS: BP 135/68; PULSE 70; RESP 18; TEMP 36.2
--- NOTE | 2018-02-13 16:04 | PCM.WC.PN ---
(1) Chronic ulcer of left foot with fat layer exposed Status: Resolved Current Visit: Yes Code(s): L97.522 - Non-pressure chronic ulcer of other part of left foot with fat layer exposed (2) PAD (peripheral artery disease) Status: Chronic Current Visit: Yes Code(s): I73.9 - Peripheral vascular disease, unspecified (3) Diabetes mellitus with neuropathy Status: Chronic Current Visit: Yes Qualifiers: Diabetes mellitus type: type 2 Code(s): E11.40 - Type 2 diabetes mellitus with diabetic neuropathy, unspecified (4) Lower extremity edema Status: Chronic Current Visit: Yes Code(s): R60.0 - Localized edema Type of Wound Date of Service: 02/13/18 Chief Complaint: Left foot ulcer healed History of Wound: This 68-year-old male who was seen today for left foot ulceration. It is currently healed and he is here for check today. He denies fever, chill, nausea, vomiting, loss of appetite. He wears surgical shoes. He denies fever, chill, nausea, vomiting, loss of appetite. He denies left foot drainage. He did not obtain his recommended offloading boot or shoe. He reports he fabricated a duct tape block at home and walks around with this tape to his barefoot; he understands this was not recommended. Progress of Wound: Healed - Physical Exam Vital Signs Temp Pulse Resp BP 97.1 F L 70 18 135/68 H 02/13/18 15:01 02/13/18 15:01 02/13/18 15:01 02/13/18 15:01 General: Alert, Oriented x3, Cooperative Extremities: No cyanosis, Capillary Refill Less than 3 Seconds, No Calf Tenderness - Negative Rashad and Tenorio sign bilateral, Diminished Peripheral Pulses, Edema - Mild bilateral lower extremities, overall very improved, - - Left midfoot amputation, right fifth ray resection Skin: Ulcer/ Wound - There is no purulence, erythema, streaking, odor, or infection. There is also full epithelialization noted to the left previous ulcer site and this is healed. No maceration. The skin is atrophic and hairless bilateral lower extremities. Wound Measurements and Assessment WC - Nurse 1 - General Ulcer Measurement Start: 02/13/18 15:01 Freq: Status: Active Protocol: Activity Type Activity Date Activity User E-Sign Co-Sign Detail Recorded Client Recorded Date Recorded By Document 02/13/18 15:01 [id number] 02/13/18 15:04 02/13/18 15:01 Wound Center Nurse 1 [Ulcer Assessment] #19 L Plantar -Combined with other wound No -Current Size (cm) - Length 0.1 -Current Size (cm) - Width 0.1 -Current Size (cm) - Depth 0.1 -Total Square Cm 0.01 -Photo Taken Yes -Tunneling No -Undermining/Tunneling No -Circular Undermining No -Exudate Amt None Present (0 %) -Wound Margin Flat & Intact -Granulation Amt None Present (0 %) -Slough/Fibrin Yes -Necrosis Amt None Present (0 %) -Necrotic Tissue Type Adherent Slough -Structure Exposed N/A -Texture (Maggy-wound Skin Appearance) Assessed Callus -Moisture (Maggy-wound Skin Appearance Assessed ) Dry/Scaly -Color (Maggy-wound Skin Appearance) Assessed -Temperature (Maggy-wound Skin No Abnormality Appearance) (Pt Warm) -Tenderness on Palpation (Maggy-wound No Skin Appearance) -Ulcer Cleansing Rinsed/ Irrigated with Saline -Foul Odor after Cleansing No -Anesthetic Used 4% Lidocaine Solution [Edema Assessment] -Lower Limb Edema Present No WC - Nurse 2 - General Ulcer CM Notes Start: 02/13/18 15:01 Freq: Status: Active Protocol: Activity Type Activity Date Activity User E-Sign Co-Sign Detail Recorded Client Recorded Date Recorded By Document 02/13/18 15:07 [id number] 02/13/18 15:13 02/13/18 15:07 Wound Center Nurse 2 [Procedure/Treatment] #19 L Plantar -Time 15:09 -Correct Patient No -Correct Side, Site, Position No -Correct Procedure No -Procedure Performed No -Post Debridement Size (cm) - Length 0 -Post Debridement Size (cm) - Width 0 -Post Debridement Size (cm) - Depth 0 -Total Square Cm 0 -Wound/Ulcer Outcome Healed- Epithelialized [See Physician Procedure note for Specifics] Pain Scale: 0-10 Numeric [Pain] -Is Patient Pain Free? Yes Musculoskeletal: No Tenderness to Palpation of Joints or Extremities, Muscle Wasting Neurological: - - Lack of epicritic sensation to light touch bilateral lower extremities Psych/Mental Status: Normal Affect, Appropriate Debridement Note Post-Debridement Measurements/Treatment WC - Nurse 2 - General Ulcer CM Notes Start: 02/13/18 15:01 Freq: Status: Active Protocol: Activity Type Activity Date Activity User E-Sign Co-Sign Detail Recorded Client Recorded Date Recorded By Document 02/13/18 15:07 [email or web address] [id number] 02/13/18 15:13 JOE 02/13/18 15:07 Wound Center Nurse 2 #19 L Plantar -Time 15:09 -Correct Patient No -Correct Side, Site, Position No -Correct Procedure No -Procedure Performed No -Post Debridement Size (cm) - Length 0 -Post Debridement Size (cm) - Width 0 -Post Debridement Size (cm) - Depth 0 -Total Square Cm 0 -Wound/Ulcer Outcome Healed- Epithelialized Pain Scale: 0-10 Numeric Is Patient Pain Free? Yes No debridement was completed today - The ulcer site has healed Assessment/Plan Active Problems (Last Reviewed 10/15/17 @ 14:22 by Nataly Christian) PAD (peripheral artery disease) (Chronic) Diabetes mellitus with neuropathy (Chronic) Lower extremity edema (Chronic) Assessment: hardy grade 1 ulcer, left foot--healed. peripheral vascular disease with recent intervention. diabetes with neuropathy. malnutrition. foot deformities: hammer toe right foot and equinus. non compliance history Plan: He is following up for his chronic recurrent left foot ulcer. This is healed today and I recommend he discontinued dressing care. No debridement was performed today. To moisturize lens daily to maintain good skin integrity. I recommend he check his lower extremity daily to monitor for ulcer return or infection. To continue offloading surgical shoe (short pediatric) versus cam walker with offloading pocket to further allow this skin to remodel; compliance was discussed. This site is very friable and he is I risk for reopening his ulcer site near future. To discontinue nutritional supplementation because his ulcers healed. His non invasive vascular studies were previously reviewed and he had angio with stent to left lower extremity with Dr. Redding. To follow up as advised. He did recently follow-up in the notes will be requested. It is noted he had a previous left procedures performed by Dr. Redding. Continue compression dressings and elevation. Tubigrip applied. He will be discharged from the wound healing center at this time. I recommend he follows up at the foot and ankle center within the next month for risk assessment and palliative care. I also recommend he follow-up at [facility] for extra-depth diabetic shoes with dual density Plastizote offloading liners including a left toe filler. A prescription was provided today. I answered all his questions.
== END 2018-03-10 23:59 ==
LOC: WC 14:43
PROVIDERS: Family Provider Family Medicine Geriatric Medicine; PCP Family Medicine Geriatric Medicine; Visit Provider Podiatrist
DX: Z09 Encounter for follow-up examination after completed treatment for conditions other than malignant neoplasm (principal); E11.51 Type 2 diabetes mellitus with diabetic peripheral angiopathy without gangrene; E11.40 Type 2 diabetes mellitus with diabetic neuropathy, unspecified; L97.522 Non-pressure chronic ulcer of other part of left foot with fat layer exposed; R60.0 Localized edema; M20.41 Other hammer toe(s) (acquired), right foot; Z91.19 Patient's noncompliance with other medical treatment and regimen
CPT/HCPCS: 99213; G0463

== ENCOUNTER → 2018-02-27 | Outpatient (CLI) | payer MEDICARE, SELFPAY ==
[2018-02-27 12:23] LABS: Bacteria 0 SEEN /hpf (None Seen); Mucous, Urine 0 SEEN /hpf (<or=2+); Red Blood Cells-Urine 0 SEEN /hpf (0-5); White Blood Cells 0 SEEN /hpf (0-5)
[2018-02-27 14:21] LABS: Color, Urine Yellow (Yellow); Glucose, Dipstick 1000 mg/dl (Normal); Ketone-Dipstick Negative (Negative); Leukocyte Esterase-Dipstick Negative /ul (Negative); Nitrite-Dipstick Negative (Negative); Occult Blood-Urine Negative /ul (Negative); Protein-Dipstick Negative (Negative); Urine Bilirubin Dipstick Negative (Negative); Urine Clarity Sl. Cloudy (Clear); Urine Urobilinogen Normal (Normal)
[2018-02-27 14:23] LABS: Absolute Lymphocyte Count 1.37 X10^3/ul (0.83-4.51); Absolute Neutrophil Count 4.6 X10^3/uL (2.0-7.7); Basophil# 0.04 X10^3/uL; Basophil% 0.6 % (0-1); Eosinophil# 0.14 X10^3/uL; Eosinophils% 2.1 % (0-5); Hematocrit 45.2 % (40-54); Hemoglobin 14.7 g/dl (13.0-16.5); Lymphocyte # 1.37 X10^3/ul (4.0); Lymphocyte % 20.3 % (19-41); Mean Corp Hgb Conc 32.5 g/gl (32-36); Mean Corpuscular Hgb 29.6 pg (27.0-32.0); Mean Corpuscular Volume 90.9 fL (80-94); Mean Platelet Vol. 9.9 fl (6.2-12.0); Monocyte# 0.59 X10^3/uL; Monocyte% 8.7 % (0-10); Neutrophil # 4.59 X10^3/uL (2.7-7.7); POSITIVE COUNT NO; POSITIVE DIFFERENTIAL NO; POSITIVE MORPHOLOGY NO; Platelet Count 266 K/mm3 (150-450); RBC Distribution Width CV 14.9 % (11.6-14.6); RBC Distribution Width SD 48.6 fl (35.1-43.9); Red Blood Count 4.97 M/mm3 (4.6-6.2); White Blood Count 6.8 K/mm3 (4.4-11.0)
[2018-02-27 14:28] LABS: Squamous Epithelial Cells - UA 0-5 SEEN /hpf (0-5)
[2018-02-27 14:56] LABS: ALB/GLOB Ratio 0.7 RATIO (0.9-2.4); AST(SGOT) 25 U/L (15-37); Alanine Aminotransfer ALT/SGPT 36 U/L (16-61); Albumin, Serum 3.2 g/dL (3.2-5.0); Alkaline Phosphatase 83 U/L (45-117); Anion Gap 10 (5-15); BUN 15 mg/dL (7-18); Calcium,Total 8.7 mg/dL (8.5-10.1); Chloride 100 mmol/L (98-107); Creatinine, Serum 1.66 mg/dL (0.70-1.30); EST Glomerular Filtration Rate 44 mL/min (>60); Est Glom Filt Rate - Afr Amer 54 mL/min (>60); Globulin 4.3 g/dL (2.2-4.2); Glucose 142 mg/dL (74-106); Potassium 4.1 mmol/L (3.5-5.1); Protein, Total 7.5 g/dL (6.4-8.2); Sodium Level 143 mmol/L (136-145); T4 Free Direct 1.42 ng/dL (0.76-1.46); Thyroid Stim Hormone (TSH) 0.28 uIU/mL (0.358-3.74)
[2018-03-04 07:08] LABS: QNTFERON TB Ag Minus Nil Value < 0 IU/mL (.); QNTFERON TB Ag Value 0.05 IU/mL (.); QNTFERON TB Mitogen Value > 10.00 IU/mL (.); QNTFERON TB Nil Value 0.06 IU/mL (.)
[2018-03-04 09:03] LABS: QNTIFERON TB Gold Negative (Negative)
== END | disposition home or self-care (01) ==
LOC: MTLAB 12:18
PROVIDERS: Family Provider Family Medicine Geriatric Medicine; PCP Family Medicine Geriatric Medicine; Visit Provider Dermatology Pediatric Dermatology
DX: L30.9 Dermatitis, unspecified (principal); I87.2 Venous insufficiency (chronic) (peripheral); L29.9 Pruritus, unspecified
CPT/HCPCS: 36415; 80053; 81001; 84439; 84443; 85025; 86480

== ENCOUNTER 2018-04-04 13:39 | Outpatient (RCR) | payer MEDICARE, SELFPAY ==
[2018-03-11 00:48] VITALS: BP 135/68; PULSE 70; RESP 18; TEMP 36.2
[2018-04-04 13:55] VITALS: BP 134/66; PULSE 66; RESP 18; TEMP 35.7; BMI 32.1
[2018-04-04 17:14] LABS: Hemoglobin 14.5 g/dl (13.0-16.5); Mean Corp Hgb Conc 32.2 g/gl (32-36); Mean Corpuscular Hgb 29.8 pg (27.0-32.0); Mean Corpuscular Volume 92.6 fL (80-94); Mean Platelet Vol. 10.2 fl (6.2-12.0); Platelet Count 300 K/mm3 (150-450); RBC Distribution Width CV 15.7 % (11.6-14.6); RBC Distribution Width SD 52.4 fl (35.1-43.9); Red Blood Count 4.86 M/mm3 (4.6-6.2); White Blood Count 6.7 K/mm3 (4.4-11.0)
[2018-04-04 17:18] LABS: Erythrocyte Sedimentation Rate 66 mm/hr (0-20); Scan Indicated on CBC? Y/N NO
[2018-04-04 17:28] LABS: ALB/GLOB Ratio 0.8 RATIO (0.9-2.4); AST(SGOT) 26 U/L (15-37); Alanine Aminotransfer ALT/SGPT 34 U/L (16-61); Albumin, Serum 3.3 g/dL (3.2-5.0); Alkaline Phosphatase 89 U/L (45-117); Anion Gap 9 (5-15); BUN 20 mg/dL (7-18); BUN/Creat Ratio 14.7 RATIO (10-20); Calcium,Total 9.4 mg/dL (8.5-10.1); Chloride 98 mmol/L (98-107); Creatinine, Serum 1.36 mg/dL (0.70-1.30); EST Glomerular Filtration Rate 56 mL/min (>60); Est Glom Filt Rate - Afr Amer 67 mL/min (>60); Estimated Creatinine Clearance 56.91 ml/min; Globulin 3.9 g/dL (2.2-4.2); Glucose 116 mg/dL (74-106); Potassium 4.2 mmol/L (3.5-5.1); Prealbumin 24.3 mg/dL (20.0-40.0); Protein, Total 7.2 g/dL (6.4-8.2); Sodium Level 140 mmol/L (136-145)
[2018-04-04 18:20] LABS: Hemoglobin A1c 8.5 % (4.2-6.3)
[2018-04-04 19:12] LABS: M R Staph aureus DNA By PCR Negative (Negative); Probe Check PASS; Staph aureus DNA By PCR POSITIVE (Negative)
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
== END 2018-04-10 23:59 ==
LOC: WC 13:39
PROVIDERS: Family Provider Family Medicine Geriatric Medicine; PCP Family Medicine Geriatric Medicine; Visit Provider Nurse Practitioner Family
DX: E11.621 Type 2 diabetes mellitus with foot ulcer (principal); E11.51 Type 2 diabetes mellitus with diabetic peripheral angiopathy without gangrene; K21.9 Gastro-esophageal reflux disease without esophagitis; L97.522 Non-pressure chronic ulcer of other part of left foot with fat layer exposed; L97.512 Non-pressure chronic ulcer of other part of right foot with fat layer exposed; E78.5 Hyperlipidemia, unspecified; I10 Essential (primary) hypertension; E11.42 Type 2 diabetes mellitus with diabetic polyneuropathy; Z79.899 Other long term (current) drug therapy; Z79.82 Long term (current) use of aspirin; Z79.4 Long term (current) use of insulin; Z91.19 Patient's noncompliance with other medical treatment and regimen; E03.9 Hypothyroidism, unspecified
CPT/HCPCS: 11042; 80053; 83036; 84134; 85027; 85652; 87070; 87075; 87077; 87186; 87205; 87640; 99213; G0463

== ENCOUNTER → 2018-04-09 15:12 | Outpatient (CLI) | payer MEDICARE, SELFPAY ==
[2018-04-09 17:43] LABS: Absolute Lymphocyte Count 1.17 X10^3/ul (0.83-4.51); Absolute Neutrophil Count 4.6 X10^3/uL (2.0-7.7); Basophil# 0.06 X10^3/uL; Basophil% 0.9 % (0-1); Eosinophil# 0.12 X10^3/uL; Eosinophils% 1.8 % (0-5); Hematocrit 44.6 % (40-54); Hemoglobin 14.6 g/dl (13.0-16.5); Lymphocyte # 1.17 X10^3/ul (4.0); Lymphocyte % 17.1 % (19-41); Mean Corp Hgb Conc 32.7 g/gl (32-36); Mean Corpuscular Hgb 30.2 pg (27.0-32.0); Mean Corpuscular Volume 92.3 fL (80-94); Mean Platelet Vol. 10.7 fl (6.2-12.0); Monocyte# 0.83 X10^3/uL; Monocyte% 12.1 % (0-10); Neutrophil # 4.63 X10^3/uL (2.7-7.7); Neutrophil % 67.7 % (47-70); Platelet Count 288 K/mm3 (150-450); RBC Distribution Width CV 15.2 % (11.6-14.6); RBC Distribution Width SD 50.2 fl (35.1-43.9); Red Blood Count 4.83 M/mm3 (4.6-6.2); White Blood Count 6.8 K/mm3 (4.4-11.0)
[2018-04-09 18:07] LABS: POSITIVE COUNT NO; POSITIVE DIFFERENTIAL NO; POSITIVE MORPHOLOGY NO
[2018-04-09 18:10] LABS: ALB/GLOB Ratio 0.7 RATIO (0.9-2.4); AST(SGOT) 29 U/L (15-37); Alanine Aminotransfer ALT/SGPT 41 U/L (16-61); Albumin, Serum 3.2 g/dL (3.2-5.0); Alkaline Phosphatase 98 U/L (45-117); Anion Gap 9 (5-15); BUN 25 mg/dL (7-18); BUN/Creat Ratio 15.5 RATIO (10-20); Calcium,Total 8.5 mg/dL (8.5-10.1); Chloride 95 mmol/L (98-107); Creatinine, Serum 1.61 mg/dL (0.70-1.30); EST Glomerular Filtration Rate 46 mL/min (>60); Est Glom Filt Rate - Afr Amer 56 mL/min (>60); Globulin 4.5 g/dL (2.2-4.2); Glucose 382 mg/dL (74-106); Potassium 4.9 mmol/L (3.5-5.1); Protein, Total 7.7 g/dL (6.4-8.2); Sodium Level 136 mmol/L (136-145); Thyroid Stim Hormone (TSH) 0.07 uIU/mL (0.358-3.74)
[2018-04-10 11:28] LABS: Vitamin D,25 Hydroxy 38.6 ng/mL (29.95-100.01)
== END ==
PROVIDERS: Family Provider Family Medicine Geriatric Medicine; PCP Family Medicine Geriatric Medicine; Visit Provider Family Medicine Geriatric Medicine
DX: E11.9 Type 2 diabetes mellitus without complications (principal); E55.9 Vitamin D deficiency, unspecified; I10 Essential (primary) hypertension
CPT/HCPCS: 36415; 80053; 82306; 84443; 85025

== ENCOUNTER 2018-04-29 10:30 | Outpatient (RCR) | payer MEDICARE, SELFPAY ==
[2018-04-11 00:52] VITALS: BP 134/66; PULSE 66; RESP 18; TEMP 35.7
[2018-04-11 15:04] VITALS: BP 140/58; PULSE 74; RESP 16; TEMP 35.7
--- NOTE | 2018-04-11 19:22 | PCM.WC.PN ---
(1) Non-pressure chronic ulcer of other part of left foot with fat layer exposed Status: Chronic Code(s): L97.522 - Non-pressure chronic ulcer of other part of left foot with fat layer exposed (2) Skin ulcer of third toe of right foot with fat layer exposed Status: Acute Code(s): L97.512 - Non-pressure chronic ulcer of other part of right foot with fat layer exposed (3) Chronic kidney disease Status: Chronic Code(s): N18.9 - Chronic kidney disease, unspecified (4) Delayed wound healing Status: Chronic Code(s): T14.8 - Other injury of unspecified body region (5) Hyperlipidemia Status: Chronic Code(s): E78.5 - Hyperlipidemia, unspecified (6) Hypertension Status: Chronic Code(s): I10 - Essential (primary) hypertension (7) Lower extremity edema Status: Chronic Code(s): R60.0 - Localized edema (8) Morbid obesity Status: Chronic Code(s): E66.01 - Morbid (severe) obesity due to excess calories (9) Non compliance with medical treatment Status: Chronic Code(s): Z91.19 - Patient's noncompliance with other medical treatment and regimen (10) Peripheral vascular disease Status: Chronic Code(s): I73.9 - Peripheral vascular disease, unspecified (11) Type 2 diabetes mellitus with diabetic polyneuropathy Status: Chronic Code(s): E11.42 - Type 2 diabetes mellitus with diabetic polyneuropathy Type of Wound Date of Service: 04/11/18 Chief Complaint: diabetic Left foot ulcer and right third toe ulcer History of Wound: This 68-year-old male who presents to the wound healing center today with complaint of recurrent left plantar foot ulcer and also an ulceration on his right third toe. He is unsure when these ulcerations occurred but states that they have occurred over the last month. 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 He currently is not using any offloading mechanisms. He was seen here previously by Dr. abebe. He has a past medical history as listed above. He states that the left plantar foot ulcer is recurrent and a chronic concern for him. He has not been using any dnea-fih-ehzzguz treatments at this time. He denies any purulent drainage, increasing pain, malodor, redness, or systemic signs of infection such as fever chills. He does state that his chronic neuropathy interferes with the sensation of his feet. The patient otherwise denies any fever, chills, nausea, vomiting, shortness of breath, chest pain or pressure, palpitations, orthopnea, lower extremity edema, syncope or presyncopal episodes. Progress of Wound: Ulcers are stable at this time, patient denies any symptoms of systemic or localized infection, patient is noncompliant with utilizing offloading shoe. Wound cultures from previous showed staph aureus, Proteus mirabilis, Klebsiella, and anaerobic cocci. On exam does not look grossly infected however. Will start on Augmentin twice daily. - Physical Exam Vital Signs Temp Pulse Resp BP 96.2 F L 74 16 140/58 H 04/11/18 15:04 04/11/18 15:04 04/11/18 15:04 04/11/18 15:04 General: Alert, Oriented x3, Cooperative, No apparent distress HEENT: Atraumatic Cardiovascular: Regular rate Extremities: Diminished Peripheral Pulses, Edema - Generalized bilateral lower extremity edema, - - Decreased sensation bilateral lower extremities, left toes amputated Skin: Ulcer/ Wound - Right third toe ulcer with adherent slough, no signs of infection, moderate serosanguineous drainage, no tenderness or streaking or malodor. Left plantar foot ulcer callused edges, slough present in center of ulcer, no redness fluctuance malodor or streaking present. Neurological: Neuro grossly intact Psych/Mental Status: Normal Affect, Appropriate, Alert and oriented to time, place, person, mood and affect Debridement Note Post-Debridement Measurements/Treatment WC - Nurse 2 - General Ulcer CM Notes Start: 04/11/18 15:04 Freq: Status: Active Protocol: Activity Type Activity Date Activity User E-Sign Co-Sign Detail Recorded Client Recorded Date Recorded By Document 04/11/18 15:58 [id number] 04/11/18 16:02 04/11/18 15:58 Wound Center Nurse 2 # 22 RIGHT 3rd TOE ANTERIOR -Time 15:58 -Correct Patient Yes -Correct Side, Site, Position Yes -Correct Procedure Yes -Procedure Performed Yes -Type of Procedure Debridement -Clinical Debridement Subcutaneous -Post Debridement Size (cm) - Length 0.5 -Post Debridement Size (cm) - Width 0.7 -Post Debridement Size (cm) - Depth 0.1 -Total Square Cm 0.35 -Wound/Ulcer Outcome Not Healed -Ulcer Cleansing Rinsed/ Irrigated with Saline -Foul Odor after Cleansing No -Bioengineered Tissue No -Topical Lidocaine (%) 4 -Bleeding Controlled with Pressure -Treatment Response Procedure Tolerated Well #21 LEFT PLANTAR FOOT -Time 15:59 -Correct Patient Yes -Correct Side, Site, Position Yes -Correct Procedure Yes -Procedure Performed Yes -Type of Procedure Debridement -Clinical Debridement Subcutaneous -Post Debridement Size (cm) - Length 1.6 -Post Debridement Size (cm) - Width 0.5 -Post Debridement Size (cm) - Depth 0.4 -Total Square Cm 0.80 -Wound/Ulcer Outcome Not Healed -Ulcer Cleansing Rinsed/ Irrigated with Saline -Foul Odor after Cleansing No -Bioengineered Tissue No -Topical Lidocaine (%) 4 -Bleeding Controlled with Pressure -Treatment Response Procedure Tolerated Well Pain Scale: 0-10 Numeric Is Patient Pain Free? Yes Wound debrided: Arnie 1 right third toe ulcer Laterality: Right Type of Debridement: Excisional debridement Anesthesia Used: 5% Lidocaine Gel Depth: in the subcutaneous layer Percentage of wound debrided: 100 Instrument Used: 5mm curette Tissue Removed: Slough and devitalized tissue Severity: Fat Layer Exposed Amount of bleeding with debridement: Mild Bleeding Controlled with: Pressure Patient tolerated procedure well - Additional Wound Wound debrided: Arnie 1 left plantar foot ulcer Laterality: Left Type of Debridement: Excisional debridement Anesthesia Used: 5% Lidocaine Gel Depth: in the subcutaneous layer Percentage of wound debrided: 100 Instrument Used: 5mm curette, #15 blade Tissue Removed: Slough and devitalized tissue and callused wound edges Severity: Fat Layer Exposed Amount of bleeding with debridement: Mild Bleeding Controlled with: Pressure Patient tolerated procedure: Patient tolerated procedure well Assessment/Plan Assessment: hardy grade 1 ulcer, left plantar foot and right third toe. peripheral vascular disease with recent intervention 2017. diabetes with neuropathy. malnutrition. non compliance history Plan: The patient was seen and examined at the wound center today and was updated on the plan of care. A subcutaneous debridement was performed today. The patient tolerated the procedure well. The patients wound care will consist of: Applying Bonnie daily to both ulcers. Double layer Tubigrip for compression and encourage leg elevation. Wound cultures were collected of the left plantar ulcer and showed anaerobic cocci, staph aureus, Proteus and Klebsiella, patient started on Augmentin twice daily and instructed to take Culturelle. Baseline bloodwork reviewed and ESR elevated at 66, A1c elevated at 8.5, GFR diminished at 46, and prealbumin within normal limits at 24. Instructed to follow-up with PCP for tighter glucose control. Vascular studies ordered and pending, patient recently did have intervention in July [address] Redding, records were requested. Patient educated on the importance of diet and blood sugar control on wound healing and instructed to increase protein and vitamin C intake. Patient verbalized understanding. Patient will follow up at wound healing center in one week or sooner if needed. Patient is to resume his nutritional supplementation of Glucerna high-protein. Did discuss with patient the importance of offloading, he continues to be noncompliant with his offloading shoes. A prescription was given for extra-depth diabetic shoes with dual density Plastizote offloading liners including a left toe filler. Patient was strongly encouraged to pick this up and to remain compliant with offloading. This note was generated with [employer] dictation software. It may contain incorrect words, spelling, and punctuation that were not noted in checking the note before signing Code Visit [id number]: [id number] Rin subq tissue 20 sq cm/<
[2018-04-18 14:54] VITALS: BP 149/72; PULSE 74; RESP 18; TEMP 35.2
--- NOTE | 2018-04-22 19:55 | PN.PCM_ITS ---
(1) Non-pressure chronic ulcer of other part of left foot with fat layer exposed Status: Chronic Code(s): L97.522 - Non-pressure chronic ulcer of other part of left foot with fat layer exposed (2) Skin ulcer of third toe of right foot with fat layer exposed Status: Acute Code(s): L97.512 - Non-pressure chronic ulcer of other part of right foot with fat layer exposed (3) Chronic kidney disease Status: Chronic Code(s): N18.9 - Chronic kidney disease, unspecified (4) Delayed wound healing Status: Chronic Code(s): T14.8 - Other injury of unspecified body region (5) Hyperlipidemia Status: Chronic Code(s): E78.5 - Hyperlipidemia, unspecified (6) Hypertension Status: Chronic Code(s): I10 - Essential (primary) hypertension (7) Lower extremity edema Status: Chronic Code(s): R60.0 - Localized edema (8) Morbid obesity Status: Chronic Code(s): E66.01 - Morbid (severe) obesity due to excess calories (9) Non compliance with medical treatment Status: Chronic Code(s): Z91.19 - Patient's noncompliance with other medical treatment and regimen (10) Peripheral vascular disease Status: Chronic Code(s): I73.9 - Peripheral vascular disease, unspecified (11) Type 2 diabetes mellitus with diabetic polyneuropathy Status: Chronic Code(s): E11.42 - Type 2 diabetes mellitus with diabetic polyneuropathy Type of Wound Date of Service: 04/18/18 Chief Complaint: diabetic Left foot ulcer and right third toe ulcer History of Wound: This 68-year-old male who presents to the wound healing center today with complaint of recurrent left plantar foot ulcer and also an ulceration on his right third toe. He is unsure when these ulcerations occurred but states that they have occurred over the last month. 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 He currently is not using any offloading mechanisms. He was seen here previously by Dr. abebe. He has a past medical history as listed above. He states that the left plantar foot ulcer is recurrent and a chronic concern for him. He has not been using any tjqt-[id number] treatments at this time. He denies any purulent drainage, increasing pain, malodor, redness, or systemic signs of infection such as fever chills. He does state that his chronic neuropathy interferes with the sensation of his feet. The patient otherwise denies any fever, chills, nausea, vomiting, shortness of breath, chest pain or pressure, palpitations, orthopnea, lower extremity edema, syncope or presyncopal episodes. Progress of Wound: Ulcers are worsened at this time, patient denies any symptoms of systemic or localized infection, patient is noncompliant with utilizing offloading shoe and was noncompliant with his daily dressing changes. He does state that he soaked his left foot and did not dry it completely. Tissue on left foot surrounding ulceration is very macerated. Wound cultures from previous showed staph aureus, Proteus mirabilis, Klebsiella, and anaerobic cocci, patient was started on an antibiotic of Augmentin, however he did not start this until 2 days ago. States that he is tolerating this well. - Physical Exam Vital Signs Temp Pulse Resp BP 95.3 F L 74 18 149/72 H 04/18/18 14:54 04/18/18 14:54 04/18/18 14:54 04/18/18 14:54 General: Alert, Oriented x3, Cooperative, No apparent distress HEENT: Atraumatic Lungs: Clear to auscultation Cardiovascular: Regular rate Abdomen: Soft, Non Tender Extremities: No clubbing, No cyanosis, Diminished Peripheral Pulses, Edema - Generalized bilateral lower extremity edema and chronic venous changes of the lower extremities, - - Left toes amputated Skin: Ulcer/ Wound - Ulceration present right third dorsal toe with adherent slough, no signs of infection, ulceration present left plantar foot with macerated wound edges, no purulent drainage noted at this time. No erythema or redness streaking or malodor. Musculoskeletal: No Muscle Wasting Neurological: Neuro grossly intact, - - Diminished sensation to bilateral lower extremities Psych/Mental Status: Normal Affect, Appropriate, Alert and oriented to time, place, person, mood and affect Debridement Note Post-Debridement Measurements/Treatment WC - Nurse 2 - General Ulcer CM Notes Start: 04/11/18 15:04 Freq: Status: Active Protocol: Activity Type Activity Date Activity User E-Sign Co-Sign Detail Recorded Client Recorded Date Recorded By Document 04/11/18 15:58 TM [id number] 04/11/18 16:02 TM Document 04/18/18 16:09 TM [id number] 04/18/18 16:19 TM 04/11/18 04/18/18 15:58 16:09 Wound Center Nurse 2 # 22 RIGHT 3rd TOE ANTERIOR -Time 15:58 16:13 -Correct Patient Yes Yes -Correct Side, Site, Position Yes Yes -Correct Procedure Yes Yes -Procedure Performed Yes Yes -Type of Procedure Debridement Debridement -Clinical Debridement Subcutaneous Subcutaneous -Post Debridement Size (cm) - Length 0.5 0.4 -Post Debridement Size (cm) - Width 0.7 0.8 -Post Debridement Size (cm) - Depth 0.1 0.1 -Total Square Cm 0.35 0.32 -Wound/Ulcer Outcome Not Healed Not Healed -Ulcer Cleansing Rinsed/ Rinsed/ Irrigated with Irrigated with Saline Saline -Foul Odor after Cleansing No No -Bioengineered Tissue No No -Topical Lidocaine (%) 4 4 -Bleeding Controlled with Pressure Pressure -Treatment Response Procedure Procedure Tolerated Well Tolerated Well #21 LEFT PLANTAR FOOT -Time 15:59 16:14 -Correct Patient Yes Yes -Correct Side, Site, Position Yes Yes -Correct Procedure Yes Yes -Procedure Performed Yes Yes -Type of Procedure Debridement Debridement -Clinical Debridement Subcutaneous Subcutaneous -Post Debridement Size (cm) - Length 1.6 2.7 -Post Debridement Size (cm) - Width 0.5 0.5 -Post Debridement Size (cm) - Depth 0.4 0.7 -Total Square Cm 0.80 1.35 -Wound/Ulcer Outcome Not Healed Not Healed -Ulcer Cleansing Rinsed/ Rinsed/ Irrigated with Irrigated with Saline Saline -Foul Odor after Cleansing No No -Bioengineered Tissue No No -Topical Lidocaine (%) 4 4 -Bleeding Controlled with Pressure Pressure -Treatment Response Procedure Procedure Tolerated Well Tolerated Well Pain Scale: 0-10 Numeric Is Patient Pain Free? Yes Wound debrided: Right third dorsal toe diabetic foot ulcer Laterality: Right Wound Grade/Stage: Arnie 1 Type of Debridement: Excisional debridement Anesthesia Used: 5% Lidocaine Gel Depth: in the subcutaneous layer Percentage of wound debrided: 100 Instrument Used: 7mm curette Tissue Removed: Slough and devitalized tissue Severity: Fat Layer Exposed Amount of bleeding with debridement: Mild Bleeding Controlled with: Pressure Patient tolerated procedure well - Additional Wound Wound debrided: Left nonhealing plantar diabetic foot ulcer Laterality: Left Wound Grade/Stage: Calvin 1 Type of Debridement: Excisional debridement Anesthesia Used: 5% Lidocaine Gel Depth: in the subcutaneous layer Percentage of wound debrided: 100 Instrument Used: 7mm curette, #15 blade Tissue Removed: slough and devitalized tissue Severity: Fat Layer Exposed Amount of bleeding with debridement: Mild Bleeding Controlled with: Pressure Patient tolerated procedure: Patient tolerated procedure well Assessment/Plan Assessment: calvin grade 1 ulcer, left plantar foot and right third toe. peripheral vascular disease with recent intervention 2018. diabetes with neuropathy. malnutrition. non compliance history Plan: The patient was seen and examined at the wound center today and was updated on the plan of care. A subcutaneous debridement was performed today. The patient tolerated the procedure well. The patients wound care will consist of: Applying Bonnie daily to both ulcers. Double layer Tubigrip for compression and encourage leg elevation. Wound cultures were collected of the left plantar ulcer and showed anaerobic cocci, staph aureus, Proteus and Klebsiella, patient started on Augmentin twice daily and instructed to take Culturelle. Baseline bloodwork reviewed and ESR elevated at 66, A1c elevated at 8.5 (referred to endocrinology), GFR diminished at 46, and prealbumin within normal limits at 24. Instructed to follow-up with PCP and endo for tighter glucose control. Vascular studies ordered and pending, patient recently did have intervention in July [address] Redding, records were requested. Patient educated on the importance of diet and blood sugar control on wound healing and instructed to increase protein and vitamin C intake. Patient verbalized understanding. Patient will follow up at wound healing center in one week or sooner if needed. Patient is to resume his nutritional supplementation of Glucerna high-protein. Did discuss with patient the importance of offloading, he continues to be noncompliant with his offloading shoes. A prescription was given for extra-depth diabetic shoes with dual density Plastizote offloading liners including a left toe filler. Patient was strongly encouraged to pick this up and to remain compliant with offloading. This note was generated with [employer] software. It may contain incorrect words, spelling, and punctuation that were not noted in checking the note before signing Code Visit [id number]: [id number] Rin subq tissue 20 sq cm/<
[2018-04-25 14:42] VITALS: BP 131/63; PULSE 66; RESP 16; TEMP 36.2
--- NOTE | 2018-04-25 16:04 | PCM.WC.PN ---
(1) Non-pressure chronic ulcer of other part of left foot with fat layer exposed Status: Chronic Current Visit: Yes Code(s): L97.522 - Non-pressure chronic ulcer of other part of left foot with fat layer exposed (2) Skin ulcer of third toe of right foot with fat layer exposed Status: Acute Current Visit: Yes Code(s): L97.512 - Non-pressure chronic ulcer of other part of right foot with fat layer exposed (3) Chronic kidney disease Status: Chronic Current Visit: No Code(s): N18.9 - Chronic kidney disease, unspecified (4) Delayed wound healing Status: Chronic Current Visit: Yes Code(s): T14.8 - Other injury of unspecified body region (5) Hyperlipidemia Status: Chronic Current Visit: Yes Code(s): E78.5 - Hyperlipidemia, unspecified (6) Hypertension Status: Chronic Current Visit: Yes Code(s): I10 - Essential (primary) hypertension (7) Lower extremity edema Status: Chronic Current Visit: Yes Code(s): R60.0 - Localized edema (8) Morbid obesity Status: Chronic Current Visit: Yes Code(s): E66.01 - Morbid (severe) obesity due to excess calories (9) Non compliance with medical treatment Status: Chronic Current Visit: Yes Code(s): Z91.19 - Patient's noncompliance with other medical treatment and regimen (10) Peripheral vascular disease Status: Chronic Current Visit: Yes Code(s): I73.9 - Peripheral vascular disease, unspecified (11) Type 2 diabetes mellitus with diabetic polyneuropathy Status: Chronic Current Visit: Yes Code(s): E11.42 - Type 2 diabetes mellitus with diabetic polyneuropathy Type of Wound Date of Service: 04/25/18 Chief Complaint: diabetic Left foot ulcer and right third toe ulcer History of Wound: This 68-year-old male who presents to the wound healing center today with complaint of recurrent left plantar foot ulcer and also an ulceration on his right third toe. He is unsure when these ulcerations occurred but states that they have occurred over the last month. He states that he has been seen by podiatry in the office and has a prescription for offloading shoes, which he has yet to pickle cutter. He currently is not using any offloading mechanisms. He was seen here previously by Dr. abebe. He has a past medical history as listed above. He states that the left plantar foot ulcer is recurrent and a chronic concern for him. He has not been using any [id number] treatments at this time. He denies any purulent drainage, increasing pain, malodor, redness, or systemic signs of infection such as fever chills. He does state that his chronic neuropathy interferes with the sensation of his feet. The patient otherwise denies any fever, chills, nausea, vomiting, shortness of breath, chest pain or pressure, palpitations, orthopnea, lower extremity edema, syncope or presyncopal episodes. Progress of Wound: Ulcers are improved at this time, patient denies any symptoms of systemic or localized infection, patient is noncompliant with utilizing offloading shoe and but states he was compliant with his daily dressing changes. Wound cultures from previous showed staph aureus, Proteus mirabilis, Klebsiella, and anaerobic cocci, patient was started on an antibiotic of Augmentin, States that he is tolerating this well. - Physical Exam Vital Signs Temp Pulse Resp BP 97.1 F L 66 16 131/63 H 04/25/18 14:42 04/25/18 14:42 04/25/18 14:42 04/25/18 14:42 General: Alert, Oriented x3, Cooperative, No apparent distress HEENT: Atraumatic Cardiovascular: Regular rate Abdomen: Obese Extremities: No clubbing, No cyanosis, Diminished Peripheral Pulses Skin: Ulcer/ Wound - Ulceration present right dorsal third toe with adherent slough, no signs of infection at this time, ulceration present left plantar surface with hyperkeratotic wound edges and slough in the center of the wound bed, no signs of infection at this time. Chronic venous changes bilateral lower extremities Wound Measurements and Assessment - Nurse 1 - General Ulcer Measurement Start: 04/11/18 15:04 Freq: Status: Active Protocol: Activity Type Activity Date Activity User E-Sign Co-Sign Detail Recorded Client Recorded Date Recorded By Document 04/25/18 14:42 [id number] 04/25/18 14:46 04/25/18 14:42 Wound Center Nurse 1 [Ulcer Assessment] # 22 RIGHT 3rd TOE ANTERIOR -Combined with other wound No -Current Size (cm) - Length 0.1 -Current Size (cm) - Width 0.1 -Current Size (cm) - Depth 0.1 -Total Square Cm 0.01 -Photo Taken No -Epithelialization None Present -Tunneling No -Undermining/Tunneling No -Circular Undermining No -Necrosis Amt Large (67-100%) -Necrotic Tissue Type Eschar -Temperature (Maggy-wound Skin No Abnormality Appearance) (Pt Warm) -Tenderness on Palpation (Maggy-wound No Skin Appearance) -Ulcer Cleansing Rinsed/ Irrigated with Saline -Foul Odor after Cleansing No -Anesthetic Used 4% Lidocaine Solution #21 LEFT PLANTAR FOOT -Combined with other wound No -Current Size (cm) - Length 0.1 -Current Size (cm) - Width 0.1 -Current Size (cm) - Depth 0.1 -Total Square Cm 0.01 -Photo Taken No -Epithelialization None Present -Tunneling No -Undermining/Tunneling No -Circular Undermining No -Necrosis Amt Large (67-100%) -Necrotic Tissue Type Eschar -Temperature (Maggy-wound Skin No Abnormality Appearance) (Pt Warm) -Tenderness on Palpation (Maggy-wound No Skin Appearance) -Ulcer Cleansing Rinsed/ Irrigated with Saline -Foul Odor after Cleansing No -Anesthetic Used 4% Lidocaine Solution [Edema Assessment] -Lower Limb Edema Present No -Right Calf (cm) 36 -Right Ankle (cm) 22.2 -Left Calf (cm) 37 -Left Ankle (cm) 22.1 WC - Nurse 2 - General Ulcer CM Notes Start: 04/11/18 15:04 Freq: Status: Active Protocol: Activity Type Activity Date Activity User E-Sign Co-Sign Detail Recorded Client Recorded Date Recorded By Document 04/25/18 16:28 [id number] 04/25/18 16:29 04/25/18 16:28 Wound Center Nurse 2 [Procedure/Treatment] # 22 RIGHT 3rd TOE ANTERIOR -Time 16:28 -Correct Patient Yes -Correct Side, Site, Position Yes -Correct Procedure Yes -Procedure Performed Yes -Type of Procedure Debridement -Clinical Debridement Subcutaneous -Post Debridement Size (cm) - Length 0.4 -Post Debridement Size (cm) - Width 0.6 -Post Debridement Size (cm) - Depth 0.1 -Total Square Cm 0.24 -Wound/Ulcer Outcome Not Healed -Ulcer Cleansing Rinsed/ Irrigated with Saline -Foul Odor after Cleansing No -Bioengineered Tissue No -Topical Lidocaine (%) 4 -Bleeding Controlled with Pressure -Treatment Response Procedure Tolerated Well #21 LEFT PLANTAR FOOT -Time 16:28 -Correct Patient Yes -Correct Side, Site, Position Yes -Correct Procedure Yes -Procedure Performed Yes -Type of Procedure Debridement -Clinical Debridement Subcutaneous -Post Debridement Size (cm) - Length 1.8 -Post Debridement Size (cm) - Width 0.4 -Post Debridement Size (cm) - Depth 0.4 -Total Square Cm 0.72 -Wound/Ulcer Outcome Not Healed -Ulcer Cleansing Rinsed/ Irrigated with Saline -Foul Odor after Cleansing No -Bioengineered Tissue No -Topical Lidocaine (%) 4 -Bleeding Controlled with Pressure -Treatment Response Procedure Tolerated Well [See Physician Procedure note for Specifics] Pain Scale: 0-10 Numeric [Pain] -Is Patient Pain Free? Yes Neurological: - - Diminished sensation to bilateral lower extremities Psych/Mental Status: Normal Affect, Appropriate Debridement Note Post-Debridement Measurements/Treatment WC - Nurse 2 - General Ulcer CM Notes Start: 04/11/18 15:04 Freq: Status: Active Protocol: Activity Type Activity Date Activity User E-Sign Co-Sign Detail Recorded Client Recorded Date Recorded By Document 04/11/18 15:58 [id number] 04/11/18 16:02 TM Document 04/18/18 16:09 [email or web address] [id number] 04/18/18 16:19 TM Document 04/25/18 16:28 TM [id number] 04/25/18 16:29 TM 04/11/18 04/18/18 04/25/18 15:58 16:09 16:28 Wound Center Nurse 2 # 22 RIGHT 3rd TOE ANTERIOR -Time 15:58 16:13 16:28 -Correct Patient Yes Yes Yes -Correct Side, Site, Position Yes Yes Yes -Correct Procedure Yes Yes Yes -Procedure Performed Yes Yes Yes -Type of Procedure Debridement Debridement Debridement -Clinical Debridement Subcutaneous Subcutaneous Subcutaneous -Post Debridement Size (cm) - Length 0.5 0.4 0.4 -Post Debridement Size (cm) - Width 0.7 0.8 0.6 -Post Debridement Size (cm) - Depth 0.1 0.1 0.1 -Total Square Cm 0.35 0.32 0.24 -Wound/Ulcer Outcome Not Healed Not Healed Not Healed -Ulcer Cleansing Rinsed/ Rinsed/ Rinsed/ Irrigated with Irrigated with Irrigated with Saline Saline Saline -Foul Odor after Cleansing No No No -Bioengineered Tissue No No No -Topical Lidocaine (%) 4 4 4 -Bleeding Controlled with Pressure Pressure Pressure -Treatment Response Procedure Procedure Procedure Tolerated Well Tolerated Well Tolerated Well #21 LEFT PLANTAR FOOT -Time 15:59 16:14 16:28 -Correct Patient Yes Yes Yes -Correct Side, Site, Position Yes Yes Yes -Correct Procedure Yes Yes Yes -Procedure Performed Yes Yes Yes -Type of Procedure Debridement Debridement Debridement -Clinical Debridement Subcutaneous Subcutaneous Subcutaneous -Post Debridement Size (cm) - Length 1.6 2.7 1.8 -Post Debridement Size (cm) - Width 0.5 0.5 0.4 -Post Debridement Size (cm) - Depth 0.4 0.7 0.4 -Total Square Cm 0.80 1.35 0.72 -Wound/Ulcer Outcome Not Healed Not Healed Not Healed -Ulcer Cleansing Rinsed/ Rinsed/ Rinsed/ Irrigated with Irrigated with Irrigated with Saline Saline Saline -Foul Odor after Cleansing No No No -Bioengineered Tissue No No No -Topical Lidocaine (%) 4 4 4 -Bleeding Controlled with Pressure Pressure Pressure -Treatment Response Procedure Procedure Procedure Tolerated Well Tolerated Well Tolerated Well Pain Scale: 0-10 Numeric Is Patient Pain Free? Yes Yes Wound debrided: Right dorsal toe diabetic foot ulcer Laterality: Right Wound Grade/Stage: Arnie 1 Type of Debridement: Excisional debridement Anesthesia Used: 5% Lidocaine Gel Depth: in the subcutaneous layer Percentage of wound debrided: 100 Instrument Used: 3mm curette Tissue Removed: Slough and devitalized tissue Severity: Fat Layer Exposed Amount of bleeding with debridement: Mild Bleeding Controlled with: Pressure Patient tolerated procedure well - Additional Wound Wound debrided: Left plantar DFU Laterality: Left Wound Grade/Stage: Arnie 1 Type of Debridement: Excisional debridement Anesthesia Used: 5% Lidocaine Gel Depth: in the subcutaneous layer Percentage of wound debrided: 100 Instrument Used: 5mm curette, #12 blade Tissue Removed: Slough, devitalized tissue, keratotic wound edges Severity: Fat Layer Exposed Amount of bleeding with debridement: Mild Bleeding Controlled with: Pressure Patient tolerated procedure: Patient tolerated procedure well Assessment/Plan Active Problems (Last Reviewed 10/15/17 @ 14:22 by Nataly Christian) Skin ulcer of third toe of right foot with fat layer exposed (Acute) Non-pressure chronic ulcer of other part of left foot with fat layer exposed (Chronic) Delayed wound healing (Chronic) Lower extremity edema (Chronic) Hypertension (Chronic) Hyperlipidemia (Chronic) Type 2 diabetes mellitus with diabetic polyneuropathy (Chronic) Morbid obesity (Chronic) Non compliance with medical treatment (Chronic) Peripheral vascular disease (Chronic) Assessment: hardy grade 1 ulcer, left plantar foot and right third toe. peripheral vascular disease with recent intervention 2018. diabetes with neuropathy. malnutrition. non compliance history Plan: The patient was seen and examined at the wound center today and was updated on the plan of care. A subcutaneous debridement was performed today. The patient tolerated the procedure well. The patients wound care will consist of: Applying Bonnie daily to both ulcers. Double layer Tubigrip for compression and encourage leg elevation. Wound cultures were collected of the left plantar ulcer and showed anaerobic cocci, staph aureus, Proteus and Klebsiella, patient started on Augmentin twice daily and instructed to take Culturelle. Baseline bloodwork reviewed and ESR elevated at 66, A1c elevated at 8.5 (referred to endocrinology, still has not made appointment), GFR diminished at 46, and prealbumin within normal limits at 24. Instructed to follow-up with PCP and endo for tighter glucose control. Vascular studies ordered and pending, patient recently did have intervention in July [address] Redding, records were requested. Patient educated on the importance of diet and blood sugar control on wound healing and instructed to increase protein and vitamin C intake. Patient verbalized understanding. Patient will follow up at wound healing center in one week or sooner if needed. Patient is to resume his nutritional supplementation of Glucerna high-protein. Did discuss with patient the importance of offloading, he continues to be noncompliant with his offloading shoes. A prescription was given for extra-depth diabetic shoes with dual density Plastizote offloading liners including a left toe filler. Patient was strongly encouraged to pick this up and to remain compliant with offloading. This note was generated with [employer] dictation software. It may contain incorrect words, spelling, and punctuation that were not noted in checking the note before signing Code Visit [id number]: [id number] Rin subq tissue 20 sq cm/<
--- NOTE | 2018-04-26 16:08 | PN.PCM_ITS ---
(1) Non-pressure chronic ulcer of other part of left foot with fat layer exposed Status: Chronic Current Visit: Yes Code(s): L97.522 - Non-pressure chronic ulcer of other part of left foot with fat layer exposed (2) Skin ulcer of third toe of right foot with fat layer exposed Status: Acute Current Visit: Yes Code(s): L97.512 - Non-pressure chronic ulcer of other part of right foot with fat layer exposed (3) Chronic kidney disease Status: Chronic Current Visit: No Code(s): N18.9 - Chronic kidney disease, unspecified (4) Delayed wound healing Status: Chronic Current Visit: Yes Code(s): T14.8 - Other injury of unspecified body region (5) Hyperlipidemia Status: Chronic Current Visit: Yes Code(s): E78.5 - Hyperlipidemia, unspecified (6) Hypertension Status: Chronic Current Visit: Yes Code(s): I10 - Essential (primary) hypertension (7) Lower extremity edema Status: Chronic Current Visit: Yes Code(s): R60.0 - Localized edema (8) Morbid obesity Status: Chronic Current Visit: Yes Code(s): E66.01 - Morbid (severe) obesity due to excess calories (9) Non compliance with medical treatment Status: Chronic Current Visit: Yes Code(s): Z91.19 - Patient's noncompliance with other medical treatment and regimen (10) Peripheral vascular disease Status: Chronic Current Visit: Yes Code(s): I73.9 - Peripheral vascular disease, unspecified (11) Type 2 diabetes mellitus with diabetic polyneuropathy Status: Chronic Current Visit: Yes Code(s): E11.42 - Type 2 diabetes mellitus with diabetic polyneuropathy Type of Wound Date of Service: 04/25/18 Chief Complaint: diabetic Left foot ulcer and right third toe ulcer History of Wound: This 68-year-old male who presents to the wound healing center today with complaint of recurrent left plantar foot ulcer and also an ulceration on his right third toe. He is unsure when these ulcerations occurred but states that they have occurred over the last month. He states that he has been seen by podiatry in the office and has a prescription for offloading shoes, which he has yet to tack picker. He currently is not using any offloading mechanisms. He was seen here previously by Dr. abebe. He has a past medical history as listed above. He states that the left plantar foot ulcer is recurrent and a chronic concern for him. He has not been using any [id number] treatments at this time. He denies any purulent drainage, increasing pain, malodor, redness, or systemic signs of infection such as fever chills. He does state that his chronic neuropathy interferes with the sensation of his feet. The patient otherwise denies any fever, chills, nausea, vomiting, shortness of breath, chest pain or pressure, palpitations, orthopnea, lower extremity edema, syncope or presyncopal episodes. Progress of Wound: Ulcers are improved at this time, patient denies any symptoms of systemic or localized infection, patient is noncompliant with utilizing offloading shoe and but states he was compliant with his daily dressing changes. Wound cultures from previous showed staph aureus, Proteus mirabilis, Klebsiella, and anaerobic cocci, patient was started on an antibiotic of Augmentin, States that he is tolerating this well. - Physical Exam Vital Signs Temp Pulse Resp BP 97.1 F L 66 16 131/63 H 04/25/18 14:42 04/25/18 14:42 04/25/18 14:42 04/25/18 14:42 General: Alert, Oriented x3, Cooperative, No apparent distress HEENT: Atraumatic Cardiovascular: Regular rate Abdomen: Obese Extremities: No clubbing, No cyanosis, Diminished Peripheral Pulses Skin: Ulcer/ Wound - Ulceration present right dorsal third toe with adherent slough, no signs of infection at this time, ulceration present left plantar surface with hyperkeratotic wound edges and slough in the center of the wound bed, no signs of infection at this time. Chronic venous changes bilateral lower extremities Wound Measurements and Assessment - Nurse 1 - General Ulcer Measurement Start: 04/11/18 15:04 Freq: Status: Active Protocol: Activity Type Activity Date Activity User E-Sign Co-Sign Detail Recorded Client Recorded Date Recorded By Document 04/25/18 14:42 [id number] 04/25/18 14:46 04/25/18 14:42 Wound Center Nurse 1 [Ulcer Assessment] # 22 RIGHT 3rd TOE ANTERIOR -Combined with other wound No -Current Size (cm) - Length 0.1 -Current Size (cm) - Width 0.1 -Current Size (cm) - Depth 0.1 -Total Square Cm 0.01 -Photo Taken No -Epithelialization None Present -Tunneling No -Undermining/Tunneling No -Circular Undermining No -Necrosis Amt Large (67-100%) -Necrotic Tissue Type Eschar -Temperature (Maggy-wound Skin No Abnormality Appearance) (Pt Warm) -Tenderness on Palpation (Maggy-wound No Skin Appearance) -Ulcer Cleansing Rinsed/ Irrigated with Saline -Foul Odor after Cleansing No -Anesthetic Used 4% Lidocaine Solution #21 LEFT PLANTAR FOOT -Combined with other wound No -Current Size (cm) - Length 0.1 -Current Size (cm) - Width 0.1 -Current Size (cm) - Depth 0.1 -Total Square Cm 0.01 -Photo Taken No -Epithelialization None Present -Tunneling No -Undermining/Tunneling No -Circular Undermining No -Necrosis Amt Large (67-100%) -Necrotic Tissue Type Eschar -Temperature (Maggy-wound Skin No Abnormality Appearance) (Pt Warm) -Tenderness on Palpation (Maggy-wound No Skin Appearance) -Ulcer Cleansing Rinsed/ Irrigated with Saline -Foul Odor after Cleansing No -Anesthetic Used 4% Lidocaine Solution [Edema Assessment] -Lower Limb Edema Present No -Right Calf (cm) 36 -Right Ankle (cm) 22.2 -Left Calf (cm) 37 -Left Ankle (cm) 22.1 WC - Nurse 2 - General Ulcer CM Notes Start: 04/11/18 15:04 Freq: Status: Active Protocol: Activity Type Activity Date Activity User E-Sign Co-Sign Detail Recorded Client Recorded Date Recorded By Document 04/25/18 16:28 [id number] 04/25/18 16:29 04/25/18 16:28 Wound Center Nurse 2 [Procedure/Treatment] # 22 RIGHT 3rd TOE ANTERIOR -Time 16:28 -Correct Patient Yes -Correct Side, Site, Position Yes -Correct Procedure Yes -Procedure Performed Yes -Type of Procedure Debridement -Clinical Debridement Subcutaneous -Post Debridement Size (cm) - Length 0.4 -Post Debridement Size (cm) - Width 0.6 -Post Debridement Size (cm) - Depth 0.1 -Total Square Cm 0.24 -Wound/Ulcer Outcome Not Healed -Ulcer Cleansing Rinsed/ Irrigated with Saline -Foul Odor after Cleansing No -Bioengineered Tissue No -Topical Lidocaine (%) 4 -Bleeding Controlled with Pressure -Treatment Response Procedure Tolerated Well #21 LEFT PLANTAR FOOT -Time 16:28 -Correct Patient Yes -Correct Side, Site, Position Yes -Correct Procedure Yes -Procedure Performed Yes -Type of Procedure Debridement -Clinical Debridement Subcutaneous -Post Debridement Size (cm) - Length 1.8 -Post Debridement Size (cm) - Width 0.4 -Post Debridement Size (cm) - Depth 0.4 -Total Square Cm 0.72 -Wound/Ulcer Outcome Not Healed -Ulcer Cleansing Rinsed/ Irrigated with Saline -Foul Odor after Cleansing No -Bioengineered Tissue No -Topical Lidocaine (%) 4 -Bleeding Controlled with Pressure -Treatment Response Procedure Tolerated Well [See Physician Procedure note for Specifics] Pain Scale: 0-10 Numeric [Pain] -Is Patient Pain Free? Yes Neurological: - - Diminished sensation to bilateral lower extremities Psych/Mental Status: Normal Affect, Appropriate Debridement Note Post-Debridement Measurements/Treatment WC - Nurse 2 - General Ulcer CM Notes Start: 04/11/18 15:04 Freq: Status: Active Protocol: Activity Type Activity Date Activity User E-Sign Co-Sign Detail Recorded Client Recorded Date Recorded By Document 04/11/18 15:58 [id number] 04/11/18 16:02 TM Document 04/18/18 16:09 TM [id number] 04/18/18 16:19 TM Document 04/25/18 16:28 TM [id number] 04/25/18 16:29 TM 04/11/18 04/18/18 04/25/18 15:58 16:09 16:28 Wound Center Nurse 2 # 22 RIGHT 3rd TOE ANTERIOR -Time 15:58 16:13 16:28 -Correct Patient Yes Yes Yes -Correct Side, Site, Position Yes Yes Yes -Correct Procedure Yes Yes Yes -Procedure Performed Yes Yes Yes -Type of Procedure Debridement Debridement Debridement -Clinical Debridement Subcutaneous Subcutaneous Subcutaneous -Post Debridement Size (cm) - Length 0.5 0.4 0.4 -Post Debridement Size (cm) - Width 0.7 0.8 0.6 -Post Debridement Size (cm) - Depth 0.1 0.1 0.1 -Total Square Cm 0.35 0.32 0.24 -Wound/Ulcer Outcome Not Healed Not Healed Not Healed -Ulcer Cleansing Rinsed/ Rinsed/ Rinsed/ Irrigated with Irrigated with Irrigated with Saline Saline Saline -Foul Odor after Cleansing No No No -Bioengineered Tissue No No No -Topical Lidocaine (%) 4 4 4 -Bleeding Controlled with Pressure Pressure Pressure -Treatment Response Procedure Procedure Procedure Tolerated Well Tolerated Well Tolerated Well #21 LEFT PLANTAR FOOT -Time 15:59 16:14 16:28 -Correct Patient Yes Yes Yes -Correct Side, Site, Position Yes Yes Yes -Correct Procedure Yes Yes Yes -Procedure Performed Yes Yes Yes -Type of Procedure Debridement Debridement Debridement -Clinical Debridement Subcutaneous Subcutaneous Subcutaneous -Post Debridement Size (cm) - Length 1.6 2.7 1.8 -Post Debridement Size (cm) - Width 0.5 0.5 0.4 -Post Debridement Size (cm) - Depth 0.4 0.7 0.4 -Total Square Cm 0.80 1.35 0.72 -Wound/Ulcer Outcome Not Healed Not Healed Not Healed -Ulcer Cleansing Rinsed/ Rinsed/ Rinsed/ Irrigated with Irrigated with Irrigated with Saline Saline Saline -Foul Odor after Cleansing No No No -Bioengineered Tissue No No No -Topical Lidocaine (%) 4 4 4 -Bleeding Controlled with Pressure Pressure Pressure -Treatment Response Procedure Procedure Procedure Tolerated Well Tolerated Well Tolerated Well Pain Scale: 0-10 Numeric Is Patient Pain Free? Yes Yes Wound debrided: Right dorsal toe diabetic foot ulcer Laterality: Right Wound Grade/Stage: Arnie 1 Type of Debridement: Excisional debridement Anesthesia Used: 5% Lidocaine Gel Depth: in the subcutaneous layer Percentage of wound debrided: 100 Instrument Used: 3mm curette Tissue Removed: Slough and devitalized tissue Severity: Fat Layer Exposed Amount of bleeding with debridement: Mild Bleeding Controlled with: Pressure Patient tolerated procedure well - Additional Wound Wound debrided: Left plantar DFU Laterality: Left Wound Grade/Stage: Arnie 1 Type of Debridement: Excisional debridement Anesthesia Used: 5% Lidocaine Gel Depth: in the subcutaneous layer Percentage of wound debrided: 100 Instrument Used: 5mm curette, #12 blade Tissue Removed: Slough, devitalized tissue, keratotic wound edges Severity: Fat Layer Exposed Amount of bleeding with debridement: Mild Bleeding Controlled with: Pressure Patient tolerated procedure: Patient tolerated procedure well Assessment/Plan Active Problems (Last Reviewed 10/15/17 @ 14:22 by Nataly Christian) Skin ulcer of third toe of right foot with fat layer exposed (Acute) Non-pressure chronic ulcer of other part of left foot with fat layer exposed (Chronic) Delayed wound healing (Chronic) Lower extremity edema (Chronic) Hypertension (Chronic) Hyperlipidemia (Chronic) Type 2 diabetes mellitus with diabetic polyneuropathy (Chronic) Morbid obesity (Chronic) Non compliance with medical treatment (Chronic) Peripheral vascular disease (Chronic) Assessment: hardy grade 1 ulcer, left plantar foot and right third toe. peripheral vascular disease with recent intervention 2018. diabetes with neuropathy. malnutrition. non compliance history Plan: The patient was seen and examined at the wound center today and was updated on the plan of care. A subcutaneous debridement was performed today. The patient tolerated the procedure well. The patients wound care will consist of: Applying Bonnie daily to both ulcers. Double layer Tubigrip for compression and encourage leg elevation. Wound cultures were collected of the left plantar ulcer and showed anaerobic cocci, staph aureus, Proteus and Klebsiella, patient started on Augmentin twice daily and instructed to take Culturelle. Baseline bloodwork reviewed and ESR elevated at 66, A1c elevated at 8.5 (referred to endocrinology, still has not made appointment), GFR diminished at 46, and prealbumin within normal limits at 24. Instructed to follow-up with PCP and endo for tighter glucose control. Vascular studies ordered and pending, patient recently did have intervention in July [address] Redding, records were requested. Patient educated on the importance of diet and blood sugar control on wound healing and instructed to increase protein and vitamin C intake. Patient verbalized understanding. Patient will follow up at wound healing center in one week or sooner if needed. Patient is to resume his nutritional supplementation of Glucerna high-protein. Did discuss with patient the importance of offloading, he continues to be noncompliant with his offloading shoes. A prescription was given for extra-depth diabetic shoes with dual density Plastizote offloading liners including a left toe filler. Patient was strongly encouraged to pick this up and to remain compliant with offloading. This note was generated with [employer] dictation software. It may contain incorrect words, spelling, and punctuation that were not noted in checking the note before signing Code Visit [id number]: [id number] Rin subq tissue 20 sq cm/<
--- NOTE | 2018-04-26 16:19 | WC ---
Patient called stating [facility] would not honor Rx for Glucerna. He did find a company who will supply him, but Rx needs faxed to them. TIMMY or . Demographics, 's Order, and Progress Notes faxed. Patient contacted.
[2018-04-29 09:53] VITALS: BP 137/72; PULSE 97; RESP 18; TEMP 36.2
--- NOTE | 2018-04-29 11:09 | RAD_ITS ---
STUDY: X-RAY - RIGHT FOOT CLINICAL: Nonhealing wound of the third toe. TECHNIQUE: 3 view(s) of the foot. COMPARISON: Radiographs 07/31/2017. FINDINGS: Normal talus, calcaneus, and tarsal bones. Normal visualized subtalar, talonavicular, calcaneocuboid, tarsal and tarsometatarsal articulations. There is amputation of the fifth digit at the level of the metatarsal diaphysis. Normal metatarsophalangeal joint of the great toe. Normal tibial and fibular sesamoid bones. Normal interphalangeal joint of the great toe. Normal phalanges of the great toe. Normal second through fourth metatarsophalangeal joints. Normal interphalangeal joints and phalanges of the remaining lesser toes. There is vascular calcification. RAD/Foot min 3 Views IMPRESSION: Amputation of the fifth digit. No demonstrated active bone destruction. Electronically Signed: Santos Bradshaw MD at 13:12 EST Tel , Service support ,
--- NOTE | 2018-04-29 11:10 | RAD_ITS ---
STUDY: X-RAY RIGHT FOOT, THIRD TOE REASON FOR EXAM: Nonhealing wound of the third toe. TECHNIQUE: 3 view(s) of the toe were obtained. COMPARISON: None. FINDINGS: Normal visualized metatarsus. Normal metatarsophalangeal (M.T.P) joint. Normal phalanges and interphalangeal joints. There is vascular calcification. RAD/Toe(s) Min 2 Views IMPRESSION: Unremarkable x-ray of the third toe without demonstrated osteomyelitis. Electronically Signed: Santos Bradshaw MD at 13:12 EST Tel , Service support ,
--- NOTE | 2018-04-29 11:19 | PCM.WC.PN ---
(1) Non-pressure chronic ulcer of other part of left foot with fat layer exposed Status: Chronic Current Visit: Yes Code(s): L97.522 - Non-pressure chronic ulcer of other part of left foot with fat layer exposed (2) Skin ulcer of third toe of right foot with fat layer exposed Status: Acute Current Visit: Yes Code(s): L97.512 - Non-pressure chronic ulcer of other part of right foot with fat layer exposed (3) Chronic kidney disease Status: Chronic Current Visit: No Code(s): N18.9 - Chronic kidney disease, unspecified (4) Delayed wound healing Status: Chronic Current Visit: Yes Code(s): T14.8 - Other injury of unspecified body region (5) Hyperlipidemia Status: Chronic Current Visit: Yes Code(s): E78.5 - Hyperlipidemia, unspecified (6) Hypertension Status: Chronic Current Visit: Yes Code(s): I10 - Essential (primary) hypertension (7) Lower extremity edema Status: Chronic Current Visit: Yes Code(s): R60.0 - Localized edema (8) Morbid obesity Status: Chronic Current Visit: Yes Code(s): E66.01 - Morbid (severe) obesity due to excess calories (9) Non compliance with medical treatment Status: Chronic Current Visit: Yes Code(s): Z91.19 - Patient's noncompliance with other medical treatment and regimen (10) Peripheral vascular disease Status: Chronic Current Visit: Yes Code(s): I73.9 - Peripheral vascular disease, unspecified (11) Type 2 diabetes mellitus with diabetic polyneuropathy Status: Chronic Current Visit: Yes Code(s): E11.42 - Type 2 diabetes mellitus with diabetic polyneuropathy Type of Wound Date of Service: 04/29/18 Chief Complaint: diabetic Left foot ulcer and right third toe ulcer History of Wound: This 68-year-old male who presents to the wound healing center today with complaint of recurrent left plantar foot ulcer and also an ulceration on his right third toe. He is unsure when these ulcerations occurred but states that they have occurred over the last month. He states that he has been seen by podiatry in the office and has a prescription for offloading shoes, which he has yet to moss picker. He currently is not using any offloading mechanisms. He was seen here previously by Dr. abebe. He has a past medical history as listed above. He states that the left plantar foot ulcer is recurrent and a chronic concern for him. He has not been using any twyb-[id number]-fabbden treatments at this time. He denies any purulent drainage, increasing pain, malodor, redness, or systemic signs of infection such as fever chills. He does state that his chronic neuropathy interferes with the sensation of his feet. The patient otherwise denies any fever, chills, nausea, vomiting, shortness of breath, chest pain or pressure, palpitations, orthopnea, lower extremity edema, syncope or presyncopal episodes. Progress of Wound: Ulcers are stable at this time, patient denies any symptoms of systemic or localized infection, patient is noncompliant with utilizing offloading shoe and but states he was compliant with his daily dressing changes. He notes a new wound on the dorsal aspect of his left foot, but he is unsure when or how this occured. Wound cultures from previous showed staph aureus, Proteus mirabilis, Klebsiella, and anaerobic cocci, patient was started on an antibiotic of Augmentin, and completed this. He has not follow up with endocrinology yet. - Physical Exam Vital Signs Temp Pulse Resp BP 97.2 F L 97 18 137/72 H 04/29/18 09:53 04/29/18 09:53 04/29/18 09:53 04/29/18 09:53 General: Alert, Oriented x3, Cooperative, No apparent distress HEENT: Atraumatic Cardiovascular: Regular rate Abdomen: Obese Extremities: No clubbing, No cyanosis, Diminished Peripheral Pulses, Edema - Generalized bilateral lower extremity edema with chronic venous changes bilateral lower extremity Skin: Ulcer/ Wound - See description and nursing documentation, ulcers present to left plantar and dorsal foot and right third dorsal toe, slough present Slightly erythematous wound edges, no malodor or drainage. Wound Measurements and Assessment WC - Nurse 1 - General Ulcer Measurement Start: 04/11/18 15:04 Freq: Status: Active Protocol: Activity Type Activity Date Activity User E-Sign Co-Sign Detail Recorded Client Recorded Date Recorded By Document 04/29/18 09:53 NV [id number] 04/29/18 09:57 NV 04/29/18 09:53 Wound Center Nurse 1 [Ulcer Assessment] #23 Left Medial Foot -Combined with other wound No -Current Size (cm) - Length 0.1 -Current Size (cm) - Width 0.1 -Current Size (cm) - Depth 0.1 -Total Square Cm 0.01 -Date of Last Picture (Recall this 04/29/18 field) -Photo Taken Yes # 22 RIGHT 3rd TOE ANTERIOR -Combined with other wound No -Current Size (cm) - Length 0.3 -Current Size (cm) - Width 0.1 -Current Size (cm) - Depth 0.1 -Total Square Cm 0.03 -Photo Taken No -Tunneling No -Undermining/Tunneling No -Circular Undermining No -Exudate Amt None Present (0 %) -Wound Margin Flat & Intact -Granulation Amt Medium (34-66%) -Granulation Quality Pale Galliano -Necrosis Amt Medium (34-66%) -Necrotic Tissue Type Adherent Slough -Texture (Maggy-wound Skin Appearance) Assessed Callus -Moisture (Maggy-wound Skin Appearance Assessed ) -Color (Maggy-wound Skin Appearance) Assessed -Temperature (Maggy-wound Skin No Abnormality Appearance) (Pt Warm) -Tenderness on Palpation (Maggy-wound No Skin Appearance) -Ulcer Cleansing Rinsed/ Irrigated with Saline -Foul Odor after Cleansing No -Anesthetic Used 4% Lidocaine Solution #21 LEFT PLANTAR FOOT -Combined with other wound No -Current Size (cm) - Length 2.6 -Current Size (cm) - Width 0.2 -Current Size (cm) - Depth 0.3 -Total Square Cm 0.52 -Photo Taken No -Tunneling No -Undermining/Tunneling No -Circular Undermining No -Exudate Amt None Present (0 %) -Wound Margin Flat & Intact -Granulation Amt Medium (34-66%) -Granulation Quality Pale Galliano -Slough/Fibrin Yes -Necrosis Amt Medium (34-66%) -Necrotic Tissue Type Eschar -Texture (Maggy-wound Skin Appearance) Assessed Callus -Moisture (Maggy-wound Skin Appearance Assessed ) -Color (Maggy-wound Skin Appearance) Assessed -Temperature (Maggy-wound Skin No Abnormality Appearance) (Pt Warm) -Tenderness on Palpation (Maggy-wound No Skin Appearance) -Ulcer Cleansing Rinsed/ Irrigated with Saline -Foul Odor after Cleansing No -Anesthetic Used 4% Lidocaine Solution [Edema Assessment] -Right Calf (cm) 36 -Right Ankle (cm) 22 -Left Calf (cm) 35.5 -Left Ankle (cm) 22 WC - Nurse 2 - General Ulcer CM Notes Start: 04/11/18 15:04 Freq: Status: Active Protocol: Activity Type Activity Date Activity User E-Sign Co-Sign Detail Recorded Client Recorded Date Recorded By Document 04/29/18 10:09 DV [id number] 04/29/18 10:18 DV 04/29/18 10:09 Wound Center Nurse 2 [Procedure/Treatment] #23 Left Medial Foot -Time 10:10 -Correct Patient Yes -Correct Side, Site, Position Yes -Correct Procedure Yes -Procedure Performed Yes -Type of Procedure Debridement -Clinical Debridement Subcutaneous -Post Debridement Size (cm) - Length 0.7 -Post Debridement Size (cm) - Width 1.0 -Post Debridement Size (cm) - Depth 0.1 -Total Square Cm 0.70 -Wound/Ulcer Outcome Not Healed -Ulcer Cleansing Rinsed/ Irrigated with Saline -Foul Odor after Cleansing No -Bioengineered Tissue No -Bleeding Controlled with Pressure -Treatment Response Procedure Tolerated Well # 22 RIGHT 3rd TOE ANTERIOR -Time 10:14 -Correct Patient Yes -Correct Side, Site, Position Yes -Correct Procedure Yes -Procedure Performed Yes -Type of Procedure Debridement -Clinical Debridement Subcutaneous -Post Debridement Size (cm) - Length 0.4 -Post Debridement Size (cm) - Width 0.7 -Post Debridement Size (cm) - Depth 0.1 -Total Square Cm 0.28 -Wound/Ulcer Outcome Not Healed -Ulcer Cleansing Rinsed/ Irrigated with Saline -Foul Odor after Cleansing No -Bioengineered Tissue No -Bleeding Controlled with Pressure -Treatment Response Procedure Tolerated Well #21 LEFT PLANTAR FOOT -Time 10:12 -Correct Patient Yes -Correct Side, Site, Position Yes -Correct Procedure Yes -Procedure Performed Yes -Type of Procedure Debridement -Clinical Debridement Subcutaneous -Post Debridement Size (cm) - Length 0.7 -Post Debridement Size (cm) - Width 0.3 -Post Debridement Size (cm) - Depth 0.3 -Total Square Cm 0.21 -Wound/Ulcer Outcome Not Healed -Ulcer Cleansing Rinsed/ Irrigated with Saline -Foul Odor after Cleansing No -Bioengineered Tissue No -Bleeding Controlled with Pressure -Treatment Response Procedure Tolerated Well [See Physician Procedure note for Specifics] Pain Scale: 0-10 Numeric [Pain] -Is Patient Pain Free? Yes Neurological: Neuro grossly intact, - - Decreased sensation to bilateral lower extremities, amputation of all toes to left lower extremity and of right toe to right lower extremity Psych/Mental Status: Normal Affect, Appropriate, Alert and oriented to time, place, person, mood and affect Debridement Note Post-Debridement Measurements/Treatment WC - Nurse 2 - General Ulcer CM Notes Start: 04/11/18 15:04 Freq: Status: Active Protocol: Activity Type Activity Date Activity User E-Sign Co-Sign Detail Recorded Client Recorded Date Recorded By Document 04/11/18 15:58 TM [id number] 04/11/18 16:02 TM Document 04/18/18 16:09 TM [id number] 04/18/18 16:19 TM Document 04/25/18 16:28 TM [id number] 04/25/18 16:29 TM Document 04/29/18 10:09 DV [id number] 04/29/18 10:18 DV 04/11/18 04/18/18 04/25/18 15:58 16:09 16:28 Wound Center Nurse 2 #23 Left Medial Foot -Time -Correct Patient -Correct Side, Site, Position -Correct Procedure -Procedure Performed -Type of Procedure -Clinical Debridement -Post Debridement Size (cm) - Length -Post Debridement Size (cm) - Width -Post Debridement Size (cm) - Depth -Total Square Cm -Wound/Ulcer Outcome -Ulcer Cleansing -Foul Odor after Cleansing -Bioengineered Tissue -Bleeding Controlled with -Treatment Response # 22 RIGHT 3rd TOE ANTERIOR -Time 15:58 16:13 16:28 -Correct Patient Yes Yes Yes -Correct Side, Site, Position Yes Yes Yes -Correct Procedure Yes Yes Yes -Procedure Performed Yes Yes Yes -Type of Procedure Debridement Debridement Debridement -Clinical Debridement Subcutaneous Subcutaneous Subcutaneous -Post Debridement Size (cm) - Length 0.5 0.4 0.4 -Post Debridement Size (cm) - Width 0.7 0.8 0.6 -Post Debridement Size (cm) - Depth 0.1 0.1 0.1 -Total Square Cm 0.35 0.32 0.24 -Wound/Ulcer Outcome Not Healed Not Healed Not Healed -Ulcer Cleansing Rinsed/ Rinsed/ Rinsed/ Irrigated with Irrigated with Irrigated with Saline Saline Saline -Foul Odor after Cleansing No No No -Bioengineered Tissue No No No -Topical Lidocaine (%) 4 4 4 -Bleeding Controlled with Pressure Pressure Pressure -Treatment Response Procedure Procedure Procedure Tolerated Well Tolerated Well Tolerated Well #21 LEFT PLANTAR FOOT -Time 15:59 16:14 16:28 -Correct Patient Yes Yes Yes -Correct Side, Site, Position Yes Yes Yes -Correct Procedure Yes Yes Yes -Procedure Performed Yes Yes Yes -Type of Procedure Debridement Debridement Debridement -Clinical Debridement Subcutaneous Subcutaneous Subcutaneous -Post Debridement Size (cm) - Length 1.6 2.7 1.8 -Post Debridement Size (cm) - Width 0.5 0.5 0.4 -Post Debridement Size (cm) - Depth 0.4 0.7 0.4 -Total Square Cm 0.80 1.35 0.72 -Wound/Ulcer Outcome Not Healed Not Healed Not Healed -Ulcer Cleansing Rinsed/ Rinsed/ Rinsed/ Irrigated with Irrigated with Irrigated with Saline Saline Saline -Foul Odor after Cleansing No No No -Bioengineered Tissue No No No -Topical Lidocaine (%) 4 4 4 -Bleeding Controlled with Pressure Pressure Pressure -Treatment Response Procedure Procedure Procedure Tolerated Well Tolerated Well Tolerated Well Pain Scale: 0-10 Numeric Is Patient Pain Free? Yes Yes 04/29/18 10:09 Wound Center Nurse 2 #23 Left Medial Foot -Time 10:10 -Correct Patient Yes -Correct Side, Site, Position Yes -Correct Procedure Yes -Procedure Performed Yes -Type of Procedure Debridement -Clinical Debridement Subcutaneous -Post Debridement Size (cm) - Length 0.7 -Post Debridement Size (cm) - Width 1.0 -Post Debridement Size (cm) - Depth 0.1 -Total Square Cm 0.70 -Wound/Ulcer Outcome Not Healed -Ulcer Cleansing Rinsed/ Irrigated with Saline -Foul Odor after Cleansing No -Bioengineered Tissue No -Bleeding Controlled with Pressure -Treatment Response Procedure Tolerated Well # 22 RIGHT 3rd TOE ANTERIOR -Time 10:14 -Correct Patient Yes -Correct Side, Site, Position Yes -Correct Procedure Yes -Procedure Performed Yes -Type of Procedure Debridement -Clinical Debridement Subcutaneous -Post Debridement Size (cm) - Length 0.4 -Post Debridement Size (cm) - Width 0.7 -Post Debridement Size (cm) - Depth 0.1 -Total Square Cm 0.28 -Wound/Ulcer Outcome Not Healed -Ulcer Cleansing Rinsed/ Irrigated with Saline -Foul Odor after Cleansing No -Bioengineered Tissue No -Topical Lidocaine (%) -Bleeding Controlled with Pressure -Treatment Response Procedure Tolerated Well #21 LEFT PLANTAR FOOT -Time 10:12 -Correct Patient Yes -Correct Side, Site, Position Yes -Correct Procedure Yes -Procedure Performed Yes -Type of Procedure Debridement -Clinical Debridement Subcutaneous -Post Debridement Size (cm) - Length 0.7 -Post Debridement Size (cm) - Width 0.3 -Post Debridement Size (cm) - Depth 0.3 -Total Square Cm 0.21 -Wound/Ulcer Outcome Not Healed -Ulcer Cleansing Rinsed/ Irrigated with Saline -Foul Odor after Cleansing No -Bioengineered Tissue No -Topical Lidocaine (%) -Bleeding Controlled with Pressure -Treatment Response Procedure Tolerated Well Pain Scale: 0-10 Numeric Is Patient Pain Free? Yes Wound debrided: Left plantar and dorsal DFU Laterality: Left Wound Grade/Stage: Arnie 1 Type of Debridement: Excisional debridement Anesthesia Used: 5% Lidocaine Gel Depth: in the subcutaneous layer Percentage of wound debrided: 100 Instrument Used: 5mm curette Tissue Removed: Slough and devitalized tissue Severity: Fat Layer Exposed Amount of bleeding with debridement: Mild Bleeding Controlled with: Pressure Patient tolerated procedure well - Additional Wound Wound debrided: Right third toe dorsal DFU Laterality: Right Wound Grade/Stage: Arnie 1 Type of Debridement: Excisional debridement Anesthesia Used: 5% Lidocaine Gel Depth: in the subcutaneous layer Percentage of wound debrided: 100 Instrument Used: 5mm curette Tissue Removed: Slough and devitalized tissue Severity: Fat Layer Exposed Amount of bleeding with debridement: Mild Bleeding Controlled with: Pressure Patient tolerated procedure: Patient tolerated procedure well Assessment/Plan Clinical Impression(s) from Imaging Studies Foot X-Ray 04/29/18 11:09 IMPRESSION: Amputation of the fifth digit. No demonstrated active bone destruction. Electronically Signed: Santos Bradshaw MD at 13:12 EST Tel , Service support , Toe X-Ray 04/29/18 11:10 IMPRESSION: Unremarkable x-ray of the third toe without demonstrated osteomyelitis. Electronically Signed: Santos Bradshaw MD at 13:12 EST Tel , Service support , Active Problems (Last Reviewed 10/15/17 @ 14:22 by Nataly Christian) Skin ulcer of third toe of right foot with fat layer exposed (Acute) Non-pressure chronic ulcer of other part of left foot with fat layer exposed (Chronic) Delayed wound healing (Chronic) Lower extremity edema (Chronic) Hypertension (Chronic) Hyperlipidemia (Chronic) Type 2 diabetes mellitus with diabetic polyneuropathy (Chronic) Morbid obesity (Chronic) Non compliance with medical treatment (Chronic) Peripheral vascular disease (Chronic) Assessment: hardy grade 1 ulcer, left plantar/dorsal foot and right third toe. peripheral vascular disease with recent intervention 2018. diabetes with neuropathy. malnutrition. non compliance history Plan: The patient was seen and examined at the wound center today and was updated on the plan of care. A subcutaneous debridement was performed today. The patient tolerated the procedure well. The patients wound care will consist of: Applying Bonnie daily to all ulcers. Double layer Tubigrip for compression and encourage leg elevation. Wound cultures were collected of the left plantar ulcer and showed anaerobic cocci, staph aureus, Proteus and Klebsiella, patient started on Augmentin twice daily which he completed and instructed to take Culturelle. Baseline bloodwork reviewed and ESR elevated at 66, A1c elevated at 8.5 (referred to endocrinology, still has not made appointment), GFR diminished at 46, and prealbumin within normal limits at 24. Instructed to follow-up with PCP and endo for tighter glucose control. Vascular studies ordered and pending, patient recently did have intervention in July [address] Redding, records were requested. Patient educated on the importance of diet and blood sugar control on wound healing and instructed to increase protein and vitamin C intake. Patient verbalized understanding. Patient will follow up at wound healing center in one week or sooner if needed. Patient is to resume his nutritional supplementation of Glucerna high-protein. Did discuss with patient the importance of offloading, he continues to be noncompliant with his offloading shoes. A prescription was given for extra-depth diabetic shoes with dual density Plastizote offloading liners including a left toe filler, he picked this up but has not utilized it yet. Patient was strongly encouraged to pick this up and to remain compliant with offloading. This note was generated with [employer] software. It may contain incorrect words, spelling, and punctuation that were not noted in checking the note before signing Code Visit [id number]: [id number] Rin subq tissue 20 sq cm/<
--- NOTE | 2018-05-01 11:24 | PN.PCM_ITS ---
(1) Non-pressure chronic ulcer of other part of left foot with fat layer exposed Status: Chronic Current Visit: Yes Code(s): L97.522 - Non-pressure chronic ulcer of other part of left foot with fat layer exposed (2) Skin ulcer of third toe of right foot with fat layer exposed Status: Acute Current Visit: Yes Code(s): L97.512 - Non-pressure chronic ulcer of other part of right foot with fat layer exposed (3) Chronic kidney disease Status: Chronic Current Visit: No Code(s): N18.9 - Chronic kidney disease, unspecified (4) Delayed wound healing Status: Chronic Current Visit: Yes Code(s): T14.8 - Other injury of unspecified body region (5) Hyperlipidemia Status: Chronic Current Visit: Yes Code(s): E78.5 - Hyperlipidemia, unspecified (6) Hypertension Status: Chronic Current Visit: Yes Code(s): I10 - Essential (primary) hypertension (7) Lower extremity edema Status: Chronic Current Visit: Yes Code(s): R60.0 - Localized edema (8) Morbid obesity Status: Chronic Current Visit: Yes Code(s): E66.01 - Morbid (severe) obesity due to excess calories (9) Non compliance with medical treatment Status: Chronic Current Visit: Yes Code(s): Z91.19 - Patient's noncompliance with other medical treatment and regimen (10) Peripheral vascular disease Status: Chronic Current Visit: Yes Code(s): I73.9 - Peripheral vascular disease, unspecified (11) Type 2 diabetes mellitus with diabetic polyneuropathy Status: Chronic Current Visit: Yes Code(s): E11.42 - Type 2 diabetes mellitus with diabetic polyneuropathy Type of Wound Date of Service: 04/29/18 Chief Complaint: diabetic Left foot ulcer and right third toe ulcer History of Wound: This 68-year-old male who presents to the wound healing center today with complaint of recurrent left plantar foot ulcer and also an ulceration on his right third toe. He is unsure when these ulcerations occurred but states that they have occurred over the last month. 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 He currently is not using any offloading mechanisms. He was seen here previously by Dr. abebe. He has a past medical history as listed above. He states that the left plantar foot ulcer is recurrent and a chronic concern for him. He has not been using any [id number] treatments at this time. He denies any purulent drainage, increasing pain, malodor, redness, or systemic signs of infection such as fever chills. He does state that his chronic neuropathy interferes with the sensation of his feet. The patient otherwise denies any fever, chills, nausea, vomiting, shortness of breath, chest pain or pressure, palpitations, orthopnea, lower extremity edema, syncope or presyncopal episodes. Progress of Wound: Ulcers are stable at this time, patient denies any symptoms of systemic or localized infection, patient is noncompliant with utilizing offloading shoe and but states he was compliant with his daily dressing changes. He notes a new wound on the dorsal aspect of his left foot, but he is unsure when or how this occured. Wound cultures from previous showed staph aureus, Proteus mirabilis, Klebsiella, and anaerobic cocci, patient was started on an antibiotic of Augmentin, and completed this. He has not follow up with endocrinology yet. - Physical Exam Vital Signs Temp Pulse Resp BP 97.2 F L 97 18 137/72 H 04/29/18 09:53 04/29/18 09:53 04/29/18 09:53 04/29/18 09:53 General: Alert, Oriented x3, Cooperative, No apparent distress HEENT: Atraumatic Cardiovascular: Regular rate Abdomen: Obese Extremities: No clubbing, No cyanosis, Diminished Peripheral Pulses, Edema - Generalized bilateral lower extremity edema with chronic venous changes bilateral lower extremity Skin: Ulcer/ Wound - See description and nursing documentation, ulcers present to left plantar and dorsal foot and right third dorsal toe, slough present Slightly erythematous wound edges, no malodor or drainage. Wound Measurements and Assessment WC - Nurse 1 - General Ulcer Measurement Start: 04/11/18 15:04 Freq: Status: Active Protocol: Activity Type Activity Date Activity User E-Sign Co-Sign Detail Recorded Client Recorded Date Recorded By Document 04/29/18 09:53 WI [id number] 04/29/18 09:57 WI 04/29/18 09:53 Wound Center Nurse 1 [Ulcer Assessment] #23 Left Medial Foot -Combined with other wound No -Current Size (cm) - Length 0.1 -Current Size (cm) - Width 0.1 -Current Size (cm) - Depth 0.1 -Total Square Cm 0.01 -Date of Last Picture (Recall this 04/29/18 field) -Photo Taken Yes # 22 RIGHT 3rd TOE ANTERIOR -Combined with other wound No -Current Size (cm) - Length 0.3 -Current Size (cm) - Width 0.1 -Current Size (cm) - Depth 0.1 -Total Square Cm 0.03 -Photo Taken No -Tunneling No -Undermining/Tunneling No -Circular Undermining No -Exudate Amt None Present (0 %) -Wound Margin Flat & Intact -Granulation Amt Medium (34-66%) -Granulation Quality Pale Moroni -Necrosis Amt Medium (34-66%) -Necrotic Tissue Type Adherent Slough -Texture (Maggy-wound Skin Appearance) Assessed Callus -Moisture (Maggy-wound Skin Appearance Assessed ) -Color (Maggy-wound Skin Appearance) Assessed -Temperature (Maggy-wound Skin No Abnormality Appearance) (Pt Warm) -Tenderness on Palpation (Maggy-wound No Skin Appearance) -Ulcer Cleansing Rinsed/ Irrigated with Saline -Foul Odor after Cleansing No -Anesthetic Used 4% Lidocaine Solution #21 LEFT PLANTAR FOOT -Combined with other wound No -Current Size (cm) - Length 2.6 -Current Size (cm) - Width 0.2 -Current Size (cm) - Depth 0.3 -Total Square Cm 0.52 -Photo Taken No -Tunneling No -Undermining/Tunneling No -Circular Undermining No -Exudate Amt None Present (0 %) -Wound Margin Flat & Intact -Granulation Amt Medium (34-66%) -Granulation Quality Pale Moroni -Slough/Fibrin Yes -Necrosis Amt Medium (34-66%) -Necrotic Tissue Type Eschar -Texture (Maggy-wound Skin Appearance) Assessed Callus -Moisture (Maggy-wound Skin Appearance Assessed ) -Color (Maggy-wound Skin Appearance) Assessed -Temperature (Maggy-wound Skin No Abnormality Appearance) (Pt Warm) -Tenderness on Palpation (Maggy-wound No Skin Appearance) -Ulcer Cleansing Rinsed/ Irrigated with Saline -Foul Odor after Cleansing No -Anesthetic Used 4% Lidocaine Solution [Edema Assessment] -Right Calf (cm) 36 -Right Ankle (cm) 22 -Left Calf (cm) 35.5 -Left Ankle (cm) 22 WC - Nurse 2 - General Ulcer CM Notes Start: 04/11/18 15:04 Freq: Status: Active Protocol: Activity Type Activity Date Activity User E-Sign Co-Sign Detail Recorded Client Recorded Date Recorded By Document 04/29/18 10:09 DV [id number] 04/29/18 10:18 DV 04/29/18 10:09 Wound Center Nurse 2 [Procedure/Treatment] #23 Left Medial Foot -Time 10:10 -Correct Patient Yes -Correct Side, Site, Position Yes -Correct Procedure Yes -Procedure Performed Yes -Type of Procedure Debridement -Clinical Debridement Subcutaneous -Post Debridement Size (cm) - Length 0.7 -Post Debridement Size (cm) - Width 1.0 -Post Debridement Size (cm) - Depth 0.1 -Total Square Cm 0.70 -Wound/Ulcer Outcome Not Healed -Ulcer Cleansing Rinsed/ Irrigated with Saline -Foul Odor after Cleansing No -Bioengineered Tissue No -Bleeding Controlled with Pressure -Treatment Response Procedure Tolerated Well # 22 RIGHT 3rd TOE ANTERIOR -Time 10:14 -Correct Patient Yes -Correct Side, Site, Position Yes -Correct Procedure Yes -Procedure Performed Yes -Type of Procedure Debridement -Clinical Debridement Subcutaneous -Post Debridement Size (cm) - Length 0.4 -Post Debridement Size (cm) - Width 0.7 -Post Debridement Size (cm) - Depth 0.1 -Total Square Cm 0.28 -Wound/Ulcer Outcome Not Healed -Ulcer Cleansing Rinsed/ Irrigated with Saline -Foul Odor after Cleansing No -Bioengineered Tissue No -Bleeding Controlled with Pressure -Treatment Response Procedure Tolerated Well #21 LEFT PLANTAR FOOT -Time 10:12 -Correct Patient Yes -Correct Side, Site, Position Yes -Correct Procedure Yes -Procedure Performed Yes -Type of Procedure Debridement -Clinical Debridement Subcutaneous -Post Debridement Size (cm) - Length 0.7 -Post Debridement Size (cm) - Width 0.3 -Post Debridement Size (cm) - Depth 0.3 -Total Square Cm 0.21 -Wound/Ulcer Outcome Not Healed -Ulcer Cleansing Rinsed/ Irrigated with Saline -Foul Odor after Cleansing No -Bioengineered Tissue No -Bleeding Controlled with Pressure -Treatment Response Procedure Tolerated Well [See Physician Procedure note for Specifics] Pain Scale: 0-10 Numeric [Pain] -Is Patient Pain Free? Yes Neurological: Neuro grossly intact, - - Decreased sensation to bilateral lower extremities, amputation of all toes to left lower extremity and of right toe to right lower extremity Psych/Mental Status: Normal Affect, Appropriate, Alert and oriented to time, place, person, mood and affect Debridement Note Post-Debridement Measurements/Treatment WC - Nurse 2 - General Ulcer CM Notes Start: 04/11/18 15:04 Freq: Status: Active Protocol: Activity Type Activity Date Activity User E-Sign Co-Sign Detail Recorded Client Recorded Date Recorded By Document 04/11/18 15:58 TM [id number] 04/11/18 16:02 TM Document 04/18/18 16:09 TM [id number] 04/18/18 16:19 TM Document 04/25/18 16:28 TM [id number] 04/25/18 16:29 TM Document 04/29/18 10:09 DV [id number] 04/29/18 10:18 DV 04/11/18 04/18/18 04/25/18 15:58 16:09 16:28 Wound Center Nurse 2 #23 Left Medial Foot -Time -Correct Patient -Correct Side, Site, Position -Correct Procedure -Procedure Performed -Type of Procedure -Clinical Debridement -Post Debridement Size (cm) - Length -Post Debridement Size (cm) - Width -Post Debridement Size (cm) - Depth -Total Square Cm -Wound/Ulcer Outcome -Ulcer Cleansing -Foul Odor after Cleansing -Bioengineered Tissue -Bleeding Controlled with -Treatment Response # 22 RIGHT 3rd TOE ANTERIOR -Time 15:58 16:13 16:28 -Correct Patient Yes Yes Yes -Correct Side, Site, Position Yes Yes Yes -Correct Procedure Yes Yes Yes -Procedure Performed Yes Yes Yes -Type of Procedure Debridement Debridement Debridement -Clinical Debridement Subcutaneous Subcutaneous Subcutaneous -Post Debridement Size (cm) - Length 0.5 0.4 0.4 -Post Debridement Size (cm) - Width 0.7 0.8 0.6 -Post Debridement Size (cm) - Depth 0.1 0.1 0.1 -Total Square Cm 0.35 0.32 0.24 -Wound/Ulcer Outcome Not Healed Not Healed Not Healed -Ulcer Cleansing Rinsed/ Rinsed/ Rinsed/ Irrigated with Irrigated with Irrigated with Saline Saline Saline -Foul Odor after Cleansing No No No -Bioengineered Tissue No No No -Topical Lidocaine (%) 4 4 4 -Bleeding Controlled with Pressure Pressure Pressure -Treatment Response Procedure Procedure Procedure Tolerated Well Tolerated Well Tolerated Well #21 LEFT PLANTAR FOOT -Time 15:59 16:14 16:28 -Correct Patient Yes Yes Yes -Correct Side, Site, Position Yes Yes Yes -Correct Procedure Yes Yes Yes -Procedure Performed Yes Yes Yes -Type of Procedure Debridement Debridement Debridement -Clinical Debridement Subcutaneous Subcutaneous Subcutaneous -Post Debridement Size (cm) - Length 1.6 2.7 1.8 -Post Debridement Size (cm) - Width 0.5 0.5 0.4 -Post Debridement Size (cm) - Depth 0.4 0.7 0.4 -Total Square Cm 0.80 1.35 0.72 -Wound/Ulcer Outcome Not Healed Not Healed Not Healed -Ulcer Cleansing Rinsed/ Rinsed/ Rinsed/ Irrigated with Irrigated with Irrigated with Saline Saline Saline -Foul Odor after Cleansing No No No -Bioengineered Tissue No No No -Topical Lidocaine (%) 4 4 4 -Bleeding Controlled with Pressure Pressure Pressure -Treatment Response Procedure Procedure Procedure Tolerated Well Tolerated Well Tolerated Well Pain Scale: 0-10 Numeric Is Patient Pain Free? Yes Yes 04/29/18 10:09 Wound Center Nurse 2 #23 Left Medial Foot -Time 10:10 -Correct Patient Yes -Correct Side, Site, Position Yes -Correct Procedure Yes -Procedure Performed Yes -Type of Procedure Debridement -Clinical Debridement Subcutaneous -Post Debridement Size (cm) - Length 0.7 -Post Debridement Size (cm) - Width 1.0 -Post Debridement Size (cm) - Depth 0.1 -Total Square Cm 0.70 -Wound/Ulcer Outcome Not Healed -Ulcer Cleansing Rinsed/ Irrigated with Saline -Foul Odor after Cleansing No -Bioengineered Tissue No -Bleeding Controlled with Pressure -Treatment Response Procedure Tolerated Well # 22 RIGHT 3rd TOE ANTERIOR -Time 10:14 -Correct Patient Yes -Correct Side, Site, Position Yes -Correct Procedure Yes -Procedure Performed Yes -Type of Procedure Debridement -Clinical Debridement Subcutaneous -Post Debridement Size (cm) - Length 0.4 -Post Debridement Size (cm) - Width 0.7 -Post Debridement Size (cm) - Depth 0.1 -Total Square Cm 0.28 -Wound/Ulcer Outcome Not Healed -Ulcer Cleansing Rinsed/ Irrigated with Saline -Foul Odor after Cleansing No -Bioengineered Tissue No -Topical Lidocaine (%) -Bleeding Controlled with Pressure -Treatment Response Procedure Tolerated Well #21 LEFT PLANTAR FOOT -Time 10:12 -Correct Patient Yes -Correct Side, Site, Position Yes -Correct Procedure Yes -Procedure Performed Yes -Type of Procedure Debridement -Clinical Debridement Subcutaneous -Post Debridement Size (cm) - Length 0.7 -Post Debridement Size (cm) - Width 0.3 -Post Debridement Size (cm) - Depth 0.3 -Total Square Cm 0.21 -Wound/Ulcer Outcome Not Healed -Ulcer Cleansing Rinsed/ Irrigated with Saline -Foul Odor after Cleansing No -Bioengineered Tissue No -Topical Lidocaine (%) -Bleeding Controlled with Pressure -Treatment Response Procedure Tolerated Well Pain Scale: 0-10 Numeric Is Patient Pain Free? Yes Wound debrided: Left plantar and dorsal DFU Laterality: Left Wound Grade/Stage: Arnie 1 Type of Debridement: Excisional debridement Anesthesia Used: 5% Lidocaine Gel Depth: in the subcutaneous layer Percentage of wound debrided: 100 Instrument Used: 5mm curette Tissue Removed: Slough and devitalized tissue Severity: Fat Layer Exposed Amount of bleeding with debridement: Mild Bleeding Controlled with: Pressure Patient tolerated procedure well - Additional Wound Wound debrided: Right third toe dorsal DFU Laterality: Right Wound Grade/Stage: Arnie 1 Type of Debridement: Excisional debridement Anesthesia Used: 5% Lidocaine Gel Depth: in the subcutaneous layer Percentage of wound debrided: 100 Instrument Used: 5mm curette Tissue Removed: Slough and devitalized tissue Severity: Fat Layer Exposed Amount of bleeding with debridement: Mild Bleeding Controlled with: Pressure Patient tolerated procedure: Patient tolerated procedure well Assessment/Plan Clinical Impression(s) from Imaging Studies Foot X-Ray 04/29/18 11:09 IMPRESSION: Amputation of the fifth digit. No demonstrated active bone destruction. Electronically Signed: Santos Bradshaw MD at 13:12 EST Tel , Service support , Toe X-Ray 04/29/18 11:10 IMPRESSION: Unremarkable x-ray of the third toe without demonstrated osteomyelitis. Electronically Signed: Santos Bradshaw MD at 13:12 EST Tel , Service support , Active Problems (Last Reviewed 10/15/17 @ 14:22 by Nataly Christian) Skin ulcer of third toe of right foot with fat layer exposed (Acute) Non-pressure chronic ulcer of other part of left foot with fat layer exposed (Chronic) Delayed wound healing (Chronic) Lower extremity edema (Chronic) Hypertension (Chronic) Hyperlipidemia (Chronic) Type 2 diabetes mellitus with diabetic polyneuropathy (Chronic) Morbid obesity (Chronic) Non compliance with medical treatment (Chronic) Peripheral vascular disease (Chronic) Assessment: hardy grade 1 ulcer, left plantar/dorsal foot and right third toe. peripheral vascular disease with recent intervention 2018. diabetes with neuropathy. malnutrition. non compliance history Plan: The patient was seen and examined at the wound center today and was updated on the plan of care. A subcutaneous debridement was performed today. The patient tolerated the procedure well. The patients wound care will consist of: Applying Bonnie daily to all ulcers. Double layer Tubigrip for compression and encourage leg elevation. Wound cultures were collected of the left plantar ulcer and showed anaerobic cocci, staph aureus, Proteus and Klebsiella, patient started on Augmentin twice daily which he completed and instructed to take Culturelle. Baseline bloodwork reviewed and ESR elevated at 66, A1c elevated at 8.5 (referred to endocrinology, still has not made appointment), GFR diminished at 46, and prealbumin within normal limits at 24. Instructed to follow-up with PCP and endo for tighter glucose control. Vascular studies ordered and pending, patient recently did have intervention in July [address] Redding, records were requested. Patient educated on the importance of diet and blood sugar control on wound healing and instructed to increase protein and vitamin C intake. Patient verbalized understanding. Patient will follow up at wound healing center in one week or sooner if needed. Patient is to resume his nutritional supplementation of Glucerna high-protein. Did discuss with patient the importance of offloading, he continues to be noncompliant with his offloading shoes. A prescription was given for extra-depth diabetic shoes with dual density Plastizote offloading liners including a left toe filler, he picked this up but has not utilized it yet. Patient was strongly encouraged to pick this up and to remain compliant with offloading. This note was generated with [employer] software. It may contain incorrect words, spelling, and punctuation that were not noted in checking the note before signing Code Visit [id number]: [id number] Rin subq tissue 20 sq cm/<
== END 2018-05-10 23:59 ==
LOC: WC 10:30
PROVIDERS: Family Provider Family Medicine Geriatric Medicine; PCP Family Medicine Geriatric Medicine; Referring Provider Nurse Practitioner Family; Visit Provider Nurse Practitioner Family
DX: E11.621 Type 2 diabetes mellitus with foot ulcer (principal); E11.51 Type 2 diabetes mellitus with diabetic peripheral angiopathy without gangrene; L97.512 Non-pressure chronic ulcer of other part of right foot with fat layer exposed; L97.522 Non-pressure chronic ulcer of other part of left foot with fat layer exposed; E11.22 Type 2 diabetes mellitus with diabetic chronic kidney disease; N18.9 Chronic kidney disease, unspecified; E78.5 Hyperlipidemia, unspecified; I12.9 Hypertensive chronic kidney disease with stage 1 through stage 4 chronic kidney disease, or unspecified chronic kidney disease; E11.42 Type 2 diabetes mellitus with diabetic polyneuropathy; Z91.19 Patient's noncompliance with other medical treatment and regimen; E66.01 Morbid (severe) obesity due to excess calories; Z71.3 Dietary counseling and surveillance
CPT/HCPCS: 11042; 73630; 73660

== ENCOUNTER → 2018-05-20 16:08 | Outpatient (CLI) | payer MEDICARE, SELFPAY ==
[2018-05-16 15:30] VITALS: BMI 32.1
--- OUTSIDE RECORDS SUMMARY | 2018-07-07 01:06 | XMS RPT_ITS ---
:1950 Author Organization OHIP Support Name Relationship Address Phone R Unavailable Unavailable Unavailable WHITE, MARINO Unavailable [address] + [place] [address] R Unavailable Unavailable Unavailable WHITE, MARINO Unavailable [address] + [place] [address] R Unavailable Unavailable Unavailable WHITE, MARINO Unavailable [address] + [place] [address] R Unavailable Unavailable Unavailable WHITE, MARINO Unavailable [address] + [place] [address] R Unavailable Unavailable Unavailable WHITE, MARINO Unavailable [address] + [place] [address] R Unavailable Unavailable Unavailable WHITE, MARINO Unavailable [address] + [place] [address] R Unavailable Unavailable Unavailable WHITE, MARINO Unavailable [address] + [place] [address] R Unavailable Unavailable Unavailable WHITE, MARINO Unavailable [address] + [place] [address] R Unavailable Unavailable Unavailable WHITE, MARINO Unavailable [address] + [place] [address] R Unavailable Unavailable Unavailable WHITE, MARINO Unavailable [address] + [place] [address] R Unavailable Unavailable Unavailable WHITE, MARINO Unavailable [address] + [place] [address] R Unavailable Unavailable Unavailable WHITE, MARINO Unavailable [address] + [place] [address] R Unavailable Unavailable Unavailable WHITE, MARINO Unavailable [address] + [place] [address] R Unavailable Unavailable Unavailable WHITE, MARINO Unavailable [address] + [place] [address] R Unavailable Unavailable Unavailable WHITEMARINO Unavailable [address] + [place] [address] R Unavailable Unavailable Unavailable WHITEMARINO Unavailable [address] + [place] [address] R Unavailable Unavailable Unavailable WHITEMARINO Unavailable [address] + [place] [address] R Unavailable Unavailable Unavailable WHITEMARINO Unavailable [address] + [place] [address] Alonso Valdivia Unavailable Unavailable + WhiteStephanie Unavailable Unavailable + R Unavailable Unavailable Unavailable WHITEMARINO Unavailable [address] + [place] [address] R Unavailable Unavailable Unavailable R Unavailable Unavailable Unavailable WHITEMARINO Unavailable [address] + [place] [address] R Unavailable Unavailable Unavailable WHITEMARINO Unavailable [address] + [place] [address] R Unavailable Unavailable Unavailable WHITEMARINO Unavailable [address] + [place] [address] R Unavailable Unavailable Unavailable R Unavailable Unavailable Unavailable WHITEMARINO Unavailable [address] + [place] [address] ZULEYMA CUBA Unavailable [address] + [place] [address] R Unavailable Unavailable Unavailable WHITEMARINO Unavailable [address] + [place] [address] ZULEYMA CUBA Unavailable [address] + [place] [address] R Unavailable Unavailable Unavailable WHITEMARINO Unavailable [address] + [place] [address] ZULEYMA CUBA Unavailable [address] + [place] [address] R Unavailable Unavailable Unavailable WHITEMARINO Unavailable [address] + [place] [address] R Unavailable Unavailable Unavailable R Unavailable Unavailable Unavailable WHITEMARINO Unavailable [address] + [place] [address] ZULEYMA CUBA Unavailable [address] + [place] [address] R Unavailable Unavailable Unavailable WHITEMARINO Unavailable [address] + [place] [address] ZULEYMA CUBA Unavailable [address] + [place] [address] R Unavailable Unavailable Unavailable WHITEMARINO Unavailable [address] + [place] [address] ZULEYMA CUBA Unavailable [address] + [place] [address] R Unavailable Unavailable Unavailable WHITEMARINO Unavailable [address] + [place] [address] ZULEYMA CUBA Unavailable [address] + [place] [address] R Unavailable Unavailable Unavailable WHITEMARINO Unavailable [address] + [place] [address] ZULEYMA CUBA Unavailable [address] + [place] [address] R Unavailable Unavailable Unavailable WHITESTEPHANIE Unavailable [address] + [place] [address] ZULEYMA CUBA Unavailable [address] + [place] [address] R Unavailable Unavailable Unavailable WHITESTEPHANIE Unavailable [address] + [place] [address] ZULEYMA CUBA Unavailable [address] + [place] [address] R Unavailable Unavailable Unavailable WHITESTEPHANIE Unavailable [address] + [place] [address] D Unavailable Unavailable Unavailable ZULEYMA CUBA Unavailable [address] + [place] [address] WHITE STEPHANIE Unavailable [address] + [place] [address] ZULEYMA CUBA Unavailable [address] + [place] [address] R Unavailable Unavailable Unavailable WHITE STEPHANIE Unavailable [address] + [place] [address] ZULEYMA CUBA Unavailable [address] + [place] [address] R Unavailable Unavailable Unavailable WHITE, STEPHANIE Unavailable [address] + [place] [address] ZULEYMA CUBA Unavailable [address] + [place] [address] R Unavailable Unavailable Unavailable WHITE STEPHANIE Unavailable [address] + [place] [address] ZULEYMA CUBA Unavailable [address] + [place] [address] R Unavailable Unavailable Unavailable WHITE, STEPHANIE Unavailable [address] + [place] [address] ZULEYMA CUBA Unavailable [address] + [place] [address] R Unavailable Unavailable Unavailable WHITE, STEPHANIE Unavailable [address] + [place] [address] D Unavailable Unavailable Unavailable ZULEYMA CUBA Unavailable [address] + [place] [address] WHITE, STEPHANIE Unavailable [address] + [place] [address] D Unavailable Unavailable Unavailable ZULEYMA CUBA Unavailable [address] + [place] [address] WHITE, STEPHANIE Unavailable [address] + [place] [address] D Unavailable Unavailable Unavailable ZULEYMA CUBA Unavailable [address] + [place] [address] WHITE, STEPHANIE Unavailable [address] + [place] [address] D Unavailable Unavailable Unavailable ZULEYMA CUBA Unavailable [address] + [place] [address] WHITE, STEPHANIE Unavailable [address] + [place] [address] D Unavailable Unavailable Unavailable ZULEYMA CUBA Unavailable [address] + [place] [address] WHITE, STEPHANIE Unavailable [address] + [place] [address] D Unavailable Unavailable Unavailable ZULEYMA CUBA Unavailable [address] + [place] [address] WHITE, STEPHANIE Unavailable [address] + [place] [address] D Unavailable Unavailable Unavailable ZULEYMA CUBA Unavailable [address] + [place] [address] + [place] [address] Care Team Providers Name Role Phone Janine Bansal Attending Unavailable PROVIDER, UNKNOWN Referring Unavailable MEDARDO, JOHNATHAN-CHI Primary Care Unavailable Medardo, Johnathan Chi Attending Unavailable Medardo, Johnathan Chi Referring Unavailable Medardo, Johnathan Chi Primary Care Unavailable ShineFba BODY JOINER-C Attending Unavailable Shine, Fab BODY JOINER-C Referring Unavailable Medardo, Johnathan Chi Primary Care Unavailable Shine, Fab BODY JOINER-C Consulting Unavailable Shine, Fab BODY JOINER-C Attending Unavailable Shine, Fab BODY JOINER-C Referring Unavailable Medardo, Johnathan Chi Primary Care Unavailable Shine, Fab BODY JOINER-C Attending Unavailable Shine, Fab BODY JOINER-C Referring Unavailable Medardo, Johnathan Chi Primary Care Unavailable FascioneDontrellMargaret Attending Unavailable Medardo, Johnathan Chi Primary Care Unavailable Medardo, Johnathan Chi Attending Unavailable Medardo, Johnathan Chi Primary Care Unavailable Medardo, Johnathan Chi Attending Unavailable Medardo, Johnathan Chi Primary Care Unavailable Florencio Redding Attending Unavailable ReddingFlorencio thompson Referring Unavailable Medardo, Johnathan Chi Primary Care Unavailable FascioneDontrellMargaret Attending Unavailable Medardo, Johnathan Chi Primary Care Unavailable Florencio Redding Attending Unavailable Redding Florencio A Referring Unavailable Medardo, Johnathan Chi Primary Care Unavailable Medardo, Johnathan Chi Consulting Unavailable Shine, Fab BODY JOINER-C Attending Unavailable Shine, Fab BODY JOINER-C Referring Unavailable Medardo, Johnathan Chi Primary Care Unavailable Shine, Fab BODY JOINER-C Consulting Unavailable Shine, Fab BODY JOINER-C Attending Unavailable Shine, Fab BODY JOINER-C Referring Unavailable Medardo, Johnathan Chi Primary Care Unavailable Shine, Fab BODY JOINER-C Consulting Unavailable Medardo, Johnathan Chi Primary Care Unavailable Angelaeri, Abran Admitting Unavailable James Isabel Consulting Unavailable Reggie Persaud Attending Unavailable Ihsan Pepe Consulting Unavailable Jopperi, Abran Attending Unavailable Medardo, Johnathan Chi Primary Care Unavailable Jopperi, Abran Admitting Unavailable Medardo, Johnathan Chi Primary Care Unavailable James Isabel Consulting Unavailable Kapil Rodriguez Attending Unavailable Ihsan Pepe Consulting Unavailable Sánchezaruk, Kombian Consulting Unavailable Jopperi, Abran Admitting Unavailable Medardo, Johnathan Chi Primary Care Unavailable James Isabel Consulting Unavailable Kapil Rodriguez Attending Unavailable AfshinIhsan Consulting Unavailable Gbaruk, Kombian Consulting Unavailable Jopperi, Abran Admitting Unavailable Medardo, Johnathan Chi Primary Care Unavailable James Isabel Consulting Unavailable Kapil Rodriguez Attending Unavailable Afshin, Ihsan Consulting Unavailable Gbaruk, Kombian Consulting Unavailable Jopperi, Abran Admitting Unavailable Medardo, Johnathan Chi Primary Care Unavailable James Isabel Consulting Unavailable Kapil Rodriguez Attending Unavailable Afshin, Ihsan Consulting Unavailable Gbaruk, Kombian Consulting Unavailable Medardo, Johnathan Chi Admitting Unavailable Medardo, Johnathan Chi Attending Unavailable Medardo, Johnathan Chi Primary Care Unavailable Afshin, Ihsan Consulting Unavailable Fascione, Margaret Consulting Unavailable Fab Lloyd Attending Unavailable Medardo, Johnathan Chi Attending Unavailable Medardo, Johnathan Chi Primary Care Unavailable Fascione, Margaret Attending Unavailable Medardo, Johnathan Chi Primary Care Unavailable Fascione, Margaret Attending Unavailable Medardo, Johnathan Chi Primary Care Unavailable Cebul Ihsan Attending Unavailable Medardo, Johnathan Chi Referring Unavailable Medardo, Johnathan Chi Primary Care Unavailable Shanel Moore Attending Unavailable Medardo, Johnathan Chi Referring Unavailable CebulIhsan Attending Unavailable Cebul, Ihsan Referring Unavailable Medardo, Johnathan Chi Primary Care Unavailable Fascione, Margaret Attending Unavailable Medardo, Johnathan Chi Primary Care Unavailable Cebul, Ihsan Attending Unavailable Cebul, Ihsan Referring Unavailable Medardo, Johnathan Chi Primary Care Unavailable Fascione, Margaret Attending Unavailable Medardo, Johnathan Chi Primary Care Unavailable Medardo, Johnathan Chi Attending Unavailable Medardo, Johnathan Chi Primary Care Unavailable Fascione, Margaret Attending Unavailable Medardo, Johnathan Chi Primary Care Unavailable Medardo, Johnathan Chi Primary Care Unavailable Sameera Sommer Attending Unavailable Medardo, Johnathan Chi Attending Unavailable Medardo, Johnathan Chi Primary Care Unavailable Florencio Redding Attending Unavailable Florencio Redding Referring Unavailable Medardo, Johnathan Chi Primary Care Unavailable FascioneMargaret Attending Unavailable Medardo, Johnathan Chi Primary Care Unavailable Nimisha Janine Attending Unavailable Nimisha, Janine Referring Unavailable Medardo, Johnathan Chi Primary Care Unavailable Medardo, Johnathan Chi Primary Care Unavailable Fab Shine BODY JOINER-C Attending Unavailable ShineFab bobby BODY JOINER-C Attending Unavailable Medardo, Johnathan Chi Primary Care Unavailable Fab Shine BODY JOINER-C Consulting Unavailable Medardo, Johnathan Chi Attending Unavailable Medardo, Johnathan Chi Primary Care Unavailable Fab Shine BODY JOINER-C Attending Unavailable Medardo, Johnathan Chi Primary Care Unavailable Shine, Fab BODY JOINER-C Referring Unavailable Shine, Fab BODY JOINER-C Attending Unavailable Medardo, Johnathan Chi Primary Care Unavailable Shine, Fab BODY JOINER-C Consulting Unavailable Shine, Fab BODY JOINER-C Attending Unavailable Medardo, Johnathan Chi Primary Care Unavailable Shine, Fab BODY JOINER-C Consulting Unavailable Shine, Fab BODY JOINER-C Attending Unavailable Shine, Fab BODY JOINER-C Referring Unavailable Medardo, Johnathan Chi Primary Care Unavailable Shine, Fab BODY JOINER-C Consulting Unavailable Shine, Fab BODY JOINER-C Attending Unavailable Shine, Fab BODY JOINER-C Attending Unavailable Shine, Fab BODY JOINER-C Referring Unavailable Medardo, Johnathan Chi Primary Care Unavailable Medardo, Johnathan Chi Attending Unavailable Medardo, Johnathan Chi Primary Care Unavailable Shine, Fab BODY JOINER-C Attending Unavailable Shine, Fab BODY JOINER-C Referring Unavailable Medardo, Johnathan Chi Primary Care Unavailable Shine, Fab BODY JOINER-C Consulting Unavailable PROBLEMS PROBLEMS DATE TYPE CONDITION / CODE ATTENDING STATUS SOURCE 06/26/2018 Unknown E11.621 - Type 2 Shine, Fab Active [place] diabetes mellitus BODY JOINER-C Community with foot ulcer / Hospital E11.621(ICD-10) Repository 06/07/2018 Unknown 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, Fab 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 JOINER-C Community ulcer of other part Hospital of right foot with Repository fat layer exposed / L97.512(ICD-10) 05/09/2018 Unknown I10 - Essential Shine, Fab Active [facility] (primary) BODY JOINER-C Community hypertension / Hospital I10(ICD-10) Repository 05/09/2018 Unknown L97.522 - Shine, Fab Active [facility] [place] Non-pressure chronic BODY JOINER-C Community ulcer of other part Hospital of left foot with Repository fat layer exposed / L97.522(ICD-10) 05/09/2018 Unknown N18.9 - Chronic Shine, Fab Active [facility] kidney disease, BODY JOINER-C Community unspecified / Hospital N18.9(ICD-10) Repository 05/09/2018 Unknown E78.5 - Shine, Fab Active [facility] Hyperlipidemia, BODY JOINER-C Community unspecified / Hospital E78.5(ICD-10) Repository 05/09/2018 Unknown R60.0 - Localized Shine, Fab Active [place] edema / BODY JOINER-C Community R60.0(ICD-10) Hospital Repository 05/09/2018 Unknown E66.01 - Morbid Fab Shine [place] (severe) obesity due BODY JOINER-C Community to excess calories / Hospital E66.01(ICD-10) Repository 05/09/2018 Unknown Z91.19 - Patient's Fab Shine Active [facility] noncompliance with BODY JOINER-C Community other medical Hospital treatment and Repository regimen / Z91.19(ICD-10) 05/09/2018 Unknown I73.9 - Peripheral Fab Shine Active [facility] vascular disease, BODY JOINER-C Community unspecified / Hospital I73.9(ICD-10) Repository 05/09/2018 Unknown E11.42 - Type 2 Fab Shine Active [facility] diabetes mellitus BODY JOINER-C Community with diabetic Hospital polyneuropathy / Repository E11.42(ICD-10) 04/11/2018 Unknown Z00.00 - Encounter Fab Shine Active [facility] for general adult BODY JOINER-C [facility] medical examination Hospital without abnormal Repository findings / Z00.00(ICD-10) 03/04/2018 Unknown L30.9 - Dermatitis, Nimisha Janine Active [facility] unspecified / Community L30.9(ICD-10) Hospital Repository 02/27/2018 Admitting Dermatitis, Nimisha Janine Active [facility] Diagnosis unspecified / System L30.9(ICD-10) Repository 12/24/2017 Unknown Z12.5 - Encounter Medardo, Johnathan Chi Active [facility] for screening for Community malignant neoplasm [facility] prostate / Repository Z12.5(ICD-10) 12/24/2017 Unknown Z13.89 - Encounter Medardo, Johnathan Chi Active [place] for screening for Community other disorder / Hospital Z13.89(ICD-10) Repository 10/20/2017 Unknown R10.9 - Unspecified Cebul, Ihsan Active [facility] abdominal pain / Community R10.9(ICD-10) Hospital Repository 10/20/2017 Unknown R14.0 - Abdominal Cebul Ihsan Active [place] distension (gaseous) Community / R14.0(ICD-10) Hospital Repository 10/20/2017 Unknown R10.13 - Epigastric Cebul, Ihsan Active [facility] pain / Community R10.13(ICD-10) Hospital Repository 10/20/2017 Unknown R63.4 - Abnormal Cebul, Ihsan Active [facility] weight loss / Community R63.4(ICD-10) Hospital Repository 09/26/2017 Unknown E11.9 - Type 2 Medardo, Johnathan Chi Active [facility] diabetes mellitus Community without Hospital complications / Repository E11.9(ICD-10) 09/26/2017 Unknown E55.9 - Vitamin D Medardo, Johnathan Chi Active [place] deficiency, Community unspecified / Hospital E55.9(ICD-10) Repository 09/13/2017 Unknown Z47.81 - Encounter Medardo, Johnathan Chi Active [facility] for orthopedic Community aftercare following Hospital surgical amputation Repository / Z47.81(ICD-10) 07/06/2017 Unknown I50.9 - Heart Medardo, Johnathan Chi Active [facility] failure, unspecified Community / I50.9(ICD-10) Hospital Repository 07/12/2017 Unknown M86.9 - Fascione, Active [place] Osteomyelitis, Margaret Community unspecified / Hospital M86.9(ICD-10) Repository PROCEDURES PROCEDURES No Procedure Records FoundRESULTS RESULTS Observed: 06/26/2018 Status: F Source: [place] CULTURE, DEEP WOUND 3:25 PM [facility] REPOSITORY Comments: RIGHT 3RD TOE Gram Stain Gram Stain Rare Red Blood Cells No organisms seen Wound Culture ORGANISM 1: Staphylococcus epidermidis Amount Growth Very Rare Staphylococcus epidermidis: REACTION Cefoxitin *NF POS Doxycline 8 I Daptomycin $$ 0.5 S Clindamycin $$ 0.25 S Inducable Clindamycin [place] NEG Erythromycin $ >=8 R Gentamicin $ <=0.5 S Levofloxacin $ 4 I Linezolid $$$$ 2 S Moxifloxicin *NF 1 S Oxacillin NF >=4 R Tigecycline $$$$ 0.5 S Rifampin $$ <=0.5 S Tetracycline NF >=16 R Trimethoprim/Sulfametho $ >=320 R Vancomycin $ 2 S (NF) indicates non-formulary drug at [facility]. Approval by Infectious Disease Specialist required before non-formulary drugs may be ordered and/or dispensed. * CLSI guidelines does not recommend testing of cephalosporins. This interpretation is deduced from Beta-lactam/penicillin results. Cult, Anaerobic No anaerobic bacteria isolated. Performed By: #### M100.1500 #### [facility] [place], [address] BONE (FX/NONFRACTURE) Observed: 06/26/2018 Status: F Source: [place] 3:25 PM [facility] Patient: FADI ALCANTAR : 1950 (68/M) Acct Num: [id number] Phys: Fátima MARTÍNEZ,Fab Unit Num: [id number] Loc: Specimen: [id number] Received: 06/26/18 - 1624 Spec Type: Bone TISSUES 1 TISSUES: Bone of foot, NOS COMMENT There is no evidence of acute osteomyelitis. Clinical correlation is suggested. GROSS DESCRIPTION Received in fixative is one container labeled with the patient's name and designated right third toe. The specimen consists of multiple irregular fragments of her soft tissue mixed with possible fragments of bone that in aggregate measure 0.5 x 0.5 x 0.1 cm. The entire specimen is submitted in one cassette after short decalcification. / SJ:uma 06/27/18 TC: 3 CPT: 07686, 30405 HEADER OPERATION: Bone excision from right third toe ulcer PRE-OP DIAGNOSIS: Chronic ulcer exposed bone / osteomyelitis TISSUE SUBMITTED: Bone excision from right third toe ulcer MICROSCOPIC DESCRIPTION Slides are reviewed. MICROSCOPIC DIAGNOSIS Bone, right third toe ulcer, biopsy: Chronic inflammation and reactive changes of bone. Soft tissue with changes of ulcer. AM:sp 07/01/18 Signed Chong Alexis, DO 07/01/18 <signature on file> Performed By: #### PBON #### [facility] [address] [facility] [place], [place], [address] FOOT MIN 3 VIEWS Observed: 06/07/2018 Status: F Source: [place] 4:09 PM [facility] Imaging Services [address] [place] [address] Foot min 3 Views MR#: [id number] Acct: [id number] Name: FADI ALCANTAR Rep #: [id number] : 1950 M 68 From: Sebastien Martin MD PCP: Medardo PELAEZ,Johnathan Chi Status: REG CLI Study: Foot min 3 Views Date of Exam: 06/07/18 Exam# [id number] Ordering Dr: Fab Shine STUDY: X-RAY - RIGHT FOOT CLINICAL: Male, 68 years old. Ulcer of the toe TECHNIQUE: 3 view(s) of the foot. COMPARISON: 04/29/2018 FINDINGS: Normal talus, calcaneus, and tarsal bones. Normal visualized subtalar, talonavicular, calcaneocuboid, tarsal and tarsometatarsal articulations. Partial amputation of the fifth metatarsus, similar. Normal metatarsophalangeal joint of the great toe. Normal tibial and fibular sesamoid bones. Normal interphalangeal joint of the great toe. Normal phalanges of the great toe. Normal second through fifth metatarsophalangeal joints. Normal interphalangeal joints and phalanges of the lesser toes. Vascular calcifications are demonstrated. RAD/Foot min 3 Views IMPRESSION: Since 04/29/2018, stable exam. No destructive bony process. Fifth metatarsal partial amputation. Electronically Signed: Sebastien Martin MD at 18:59 EST , Service support , CC: Fab Shine BODY JOINER; Johnathan Batres MD Inbound Sales Manager: Signed CBC W/DIFF, AUTOMATED Collected: 06/06/2018 Status: F Source: [place] 5:00 PM [facility] TYPE CODE TESTS RESULT OUT OF RANGE REFERENCE UNITS LAB L100.1000 4.4-11.0 K/mm3 Normal WBC 6.5 LAB L100.1200 4.6-6.2 M/mm3 Normal RBC 4.89 LAB L100.1300 13.0-16.5 g/dl Normal HGB 15.0 LAB L100.1400 40-54 % Normal HCT 44.8 LAB L100.1500 80-94 fL Normal MCV 91.6 LAB L100.1600 27.0-32.0 pg Normal MCH 30.7 LAB L100.1700 32-36 g/gl Normal MCHC 33.5 LAB L100.1810 11.6-14.6 % Normal RDW CV 13.9 LAB L100.1820 35.1-43.9 fl High RDW SD 46.6 LAB L100.1900 150-450 K/mm3 Normal PLT 267 LAB L100.2000 6.2-12.0 fl Normal MPV 10.0 LAB L100.2100 47-70 % Normal NEUT% 66.7 LAB L100.2200 19-41 % Normal LY% 19.2 LAB L100.2300 0-10 % High MONO% 11.6 LAB L100.2400 0-5 % Normal EO% 1.7 LAB L100.2500 0-1 % Normal BASO% 0.5 LAB L100.2550 0.0-0.9 % Normal IM GRAN % 0.300 Result Comment: IG% - Immature Granulocytes (promyelocytes, myelocytes and metamyelocytes) > 1% indicates that a LEFT SHIFT is Present. LAB L100.2620 2.0-7.7 X10 3/uL Normal Absolute Neut 4.3 LAB L100.2720 0.83-4.51 X10 3/ul Normal Absolute Lymph 1.24 Performed By: #### L100.0100, L101.9900 #### [facility] [address] [place], [place], [id number] ERYTHROCYTE SED RATE Collected: 06/06/2018 Status: F Source: [place] 5:00 PM [facility] TYPE CODE TESTS RESULT OUT OF RANGE REFERENCE UNITS LAB L102.0000 0-20 mm/hr High SED RATE 52 Performed By: #### L100.0100, L101.9900 #### [facility] [address] [place], [address] CRP Collected: 06/06/2018 Status: F Source: [place] 5:00 PM [facility] TYPE CODE TESTS RESULT OUT OF RANGE REFERENCE UNITS LAB L501.6710 0.0-3.0 mg/L High 14.00 C-REACTIVE PROT Result Comment: C-Reactive Protein (CRP) provides useful information for the diagnosis, therapy and monitoring of inflammatory processes and associated diseases. For the evaluation of Relative Risk for Cardiovascular Disease, a High Sensitivity CRP (HSCRP) should be ordered. Performed By: #### L501.6710 #### [facility] [address] [place], [place], [address] Observed: 05/30/2018 Status: F Source: [place] CULTURE, DEEP WOUND 4:15 PM [facility] Gram Stain Gram Stain 3+ Red Blood Cells No White Blood Cells No organisms seen Wound Culture No growth aerobically. Cult, Anaerobic No growth in 5 days. Performed By: #### M100.1500 #### [facility] [address] [facility] [address] [place], [place], [id number] Observed: 05/20/2018 Status: F Source: [place] RESPIRATORY PANEL 4:15 PM [facility] RP PANEL ADENOVIRUS Not Detected HUMAN METAPHNEUMO Not Detected INFLUENZA A Not Detected INFLUENZA A (SUBTYPE H1) Not Detected INFLUENZA A (SUBTYPE H3) Not Detected INFLUENZA B Not Detected PARAINFLUENZA 1 Not Detected PARAINFLUENZA 2 Not Detected PARAINFLUENZA 3 Not Detected PARAINFLUENZA 4 Not Detected RHINOVIRUS Not Detected RSV A Not Detected RSV B Not Detected NAAT METHOD Testing was performed using nucleic acid amplification Performed By: #### M100.638 #### [facility] [address] [place], [place], [address] TOE(S) MIN 2 VIEWS Observed: 04/29/2018 Status: F Source: [place] 11:10 AM [facility] Imaging Services [address] [place] [id number] Toe(s) Min 2 Views MR#: [id number] Acct: [id number] Name: FADI ALCANTAR Rep #: [id number] : 1950 M 68 From: Santos Bradshaw MD PCP: Medardo PELAEZ,Johnathan Chi Status: REG RCR Study: Toe(s) Min 2 Views Date of Exam: 04/29/18 Exam# [id number] Ordering Dr: Fab Shine BODY JOINER-David STUDY: X-RAY RIGHT FOOT, THIRD TOE REASON FOR EXAM: Nonhealing wound of the third toe. TECHNIQUE: 3 view(s) of the toe were obtained. COMPARISON: None. FINDINGS: Normal visualized metatarsus. Normal metatarsophalangeal (M.T.P) joint. Normal phalanges and interphalangeal joints. There is vascular calcification. RAD/Toe(s) Min 2 Views IMPRESSION: Unremarkable x-ray of the third toe without demonstrated osteomyelitis. Electronically Signed: aSntos Bradshaw MD at 13:12 EST Tel , Service support , CC: Fab Shine NP; Johnathan Batres MD Inbound Sales Manager: Signed FOOT MIN 3 VIEWS Observed: 04/29/2018 Status: F Source: [place] 11:10 AM [facility] Imaging Services [address]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 Normal EO% 2.1 LAB L100.2500 0-1 % Normal BASO% 0.6 LAB L100.2550 0.0-0.9 % Normal IM GRAN % 0.300 Result Comment: IG% - Immature Granulocytes (promyelocytes, myelocytes and metamyelocytes) > 1% indicates that a LEFT SHIFT is Present. LAB L100.2620 2.0-7.7 X10 3/uL Normal Absolute Neut 4.6 LAB L100.2720 0.83-4.51 X10 3/ul Normal Absolute Lymph 1.37 Performed By: #### L100.0100 #### [facility] [address] [place], [address] COMPREHENSIVE METABOLIC Collected: 02/27/2018 Status: F Source: [facility] 12:20 PM [facility] TYPE CODE TESTS RESULT OUT OF RANGE REFERENCE UNITS LAB L501.0100 74-106 mg/dL High GLU 142 Result Comment: Fasting Glucose result greater than or equal to 126 mg/dL suggests DIABETES MELLITUS per A.D.A. criteria. Please note revised GLUCOSE reference range effective 2017. LAB L501.1000 7-18 mg/dL Normal BUN 15 LAB L501.1100 0.70-1.30 mg/dL High CREAT,SERUM 1.66 Result Comment: The validity of the calculated GFR AND GFRAA in patients over 70 years has not been determined. Clinical correlation is essential. LAB L501.1110 >60 mL/min Low EST GFR 44 Result Comment: Non- GFR Calc LAB L501.1115 >60 mL/min Low EST GFR - AA 54 Result Comment: GFR Calc LAB L501.1300 10-20 RATIO Low BUN/CRE 9.0 LAB L501.1500 6.4-8.2 g/dL Normal T PROT 7.5 LAB L501.1800 3.2-5.0 g/dL Normal ALB 3.2 LAB L501.1950 2.2-4.2 g/dL High GLOB 4.3 LAB L501.2000 0.9-2.4 RATIO Low A/G 0.7 LAB L501.2200 8.5-10.1 mg/dL Normal CA 8.7 LAB L501.4100 15-37 U/L Normal AST 25 LAB L501.4305 45-117 U/L Normal ALK P 83 LAB L501.4405 16-61 U/L Normal ALT 36 LAB L501.4600 0.20-1.00 mg/dL Normal T BILI 0.40 LAB L501.5300 136-145 mmol/L Normal NA 143 LAB L501.5600 3.5-5.1 mmol/L Normal K 4.1 LAB L501.5900 98-107 mmol/L Normal CL 100 LAB L501.6100 21.0-32.0 mmol/L High CO2 33.0 LAB L501.6200 5-15 Normal GAP 10 Performed By: #### L500.4050, L501.9520, L506.0400 #### [facility] [address], [place], [id number] THYROID STIM HORMONE Collected: 02/27/2018 Status: F Source: [place] ([place]) 12:20 PM [facility] [place] TYPE CODE TESTS RESULT OUT OF RANGE REFERENCE UNITS LAB L501.9520 0.358-3.74 uIU/mL Low TSH 0.28 Performed By: #### L500.4050, L501.9520, L506.0400 #### [facility] [address] [place], [place], [address] T4 FREE DIRECT Collected: 02/27/2018 Status: F Source: [place] 12:20 PM [facility] TYPE CODE TESTS RESULT OUT OF RANGE REFERENCE UNITS LAB L506.0400 0.76-1.46 ng/dL Normal T4 FREE 1.42 DIRECT Performed By: #### L500.4050, L501.9520, L506.0400 #### [facility] [address] [place], [address] QUANTIFERON TB-GOLD Collected: 02/27/2018 Status: F Source: [place] 12:20 PM [facility] TYPE CODE TESTS RESULT OUT OF RANGE REFERENCE UNITS LAB L3400.7025 Negative Normal QFT Negative TB GOLD Result Comment: The specimen received for QuantiFERON testing was incubated by the ordering institution. Specific procedures outlined in our Directory of Services and in the package insert for the QuantiFERON Gold (In Tube) test must be followed to enable for proper stimulation of cells for the production of interferon gamma. LAB L3400.7035 . Normal QFT TB Comment POS CRIT Result Comment: To be considered positive a specimen should have a TB Ag minus Nil value greater than or equal to 0.35 IU/mL and in addition the TB Ag minus Nil value must be greater than or equal to 25% of the Nil value. There may be insufficient information in these values to differentiate between some negative and some indeterminate test values. LAB L3400.7045 . IU/mL Normal QFT TB AB 0.05 VALUE LAB L3400.7055 . IU/mL Normal QFT NIL VALUE 0.06 LAB L3400.7065 . IU/mL > Normal QFT MITOGEN 10.00 VALERIO LAB L3400.7075 . IU/mL < Normal QFT AG - NIL 0 LAB L3400.7085 . Normal QFT TB INTER Comment Result Comment: The QuantiFERON TB Gold (in Tube) assay is intended for use as an aid in the diagnosis of TB infection. Negative results suggest that there is no TB infection. In patients with high suspicion of exposure, a negative test should be repeated. A positive test indicates infection with Mycobacterium tuberculosis. Among individuals without tuberculosis infection, a positive test may be due to exposure to M. kansasii, M. szulgai or M. marinum. On the Internet, go to cdc.gov/tb for further details. Effective fall, ticckle number [id number] QuantiFERON Client Incubated with three tube collection kit will be made non-orderable following depletion of collection and testing kits. *ticckle offers [id number] QuantiFERON-TB Plus (Client Incubated)* with four tube collection kit. Performed at: [address] [id number] Outreach Worker: Charlie Hammonds PhD, Phone: [phone] Performed By: #### L3400.7000 #### [facility] (refer to report for specific site) refer to report for address and phone number Observed: 02/27/2018 Status: F Source: [facility] 12:00 AM SYSTEM REPOSITORY [id number] [facility] PATHOLOGY AND LABORATORY MEDICINE [address] [place] [address] FINAL SURGICAL PATHOLOGY REPORT NAME: FADI ALCANTAR : 1950 68 Y M [facility] NO.: [id number] LOCATION: 1SPO PROCEDURE 02/27/2018 DATE: SURGEON: JANINE BANSAL MD RECEIVED 03/05/2018 DATE: ATTENDING: JANINE BANSAL MD REPORT DATE: 03/07/2018 COPIES TO: DIAGNOSIS: SKIN, RIGHT LATERAL TRAPEZIAL NECK, PUNCH - NON-SPECIFIC SUPERFICIAL PERIVASCULAR LYMPHOCYTIC INFILTRATE. Comment: This cutaneous pattern of injury is not entirely specific, but can be seen in a morbilliform drug eruption, urticaria, or viral exanthem. The lack of a relatively tight/coat-sleeved perivascular lymphocytic infiltrate argues against a figurate erythema such as erythema annulare centrifugum. Multiple deeper sections were reviewed. A PAS stain is negative for fungal organisms. There is no evidence of a vacuolar interface dermatitis as would be expected in erythema multiforme. Microscopic Description: Sections demonstrate a normal epidermis. Within the dermis is a mild superficial loose perivascular lymphocyte infiltrate. Eosinophils and neutrophils are not identified. JAW/JAW <Sign Out Dr. Jha> ZOHAIB ALVAREZ M.D. CLINICAL INFORMATION: Erythematous papules. Dermal hypersensitivity reaction vs. erythema annulare centrifugum SPECIMEN: SKIN(DERM) GROSS DESCRIPTION: Punch biopsy right lateral trapezial neck Received is a grossly-recognizable punch biopsy 0.3 cm diameter with attached underlying soft tissue measuring up to 0.6 cm. The specimen is bisected. (2 ns, 1) [facility] Disclaimer: The following statement applies to all immunohistochemistry, in situ hybridization, molecular studies, and immunofluorescence testing. The use of one or more reagents in the above tests is regulated as an analyte specific reagent (ASR). These tests were developed and their performance characteristics determined by the clinical laboratories of [facility]. They have not been cleared by the US Food and Drug Administration (FDA). The FDA has determined that such clearance or approval is not necessary. All the above immunostains were performed on paraffin embedded tissue. Appropriate positive and negative controls (where applicable) were run in parallel with the patient's specimen; these controls showed expected staining pattern, with acceptable intensity of staining. Immunohistochemical assays have not been validated on decalcified tissues. Results should be interpreted with caution given the raised possibility of false negativity on decalcified specimens. Professional Performing Location: [address] [address]. DEPARTMENT OF PATHOLOGY AND LABORATORY MEDICINE [place], [place] [address] 12 LEAD ELECTROCARDIOGRAM Observed: 01/21/2018 Status: F Source: [place] 2:59 PM [facility] Cardiovascular Services [address] [place] [address] 12 Lead EKG 01/16/18 1818 MR#: [id number] Acct: [id number] Name: FADI ALCANTAR Rep #: [id number] : 1950 68 From: Fady Light MD Attending Dr: Status: DEP ER Ordering Dr: Sameera Sommer DO Date: 01/16/18 Location: ED Sex: M C Admitted: Test Reason : Blood Pressure : / mmHG Vent. Rate : 060 BPM Atrial Rate : 060 BPM P-R Int : 240 ms QRS Dur : 146 ms QT Int : 488 ms P-R-T Axes : 044 091 -87 degrees QTc Int : 488 ms Sinus rhythm with 1st degree A-V block Right bundle branch block Abnormal ECG Confirmed by DARRIAN PELAEZ, FADY ([id number]), department editor SONAM BAILON ([id number]) on 01/21/2018 2:59:21 PM Referred By: SOBEIDA Confirmed By:FADY LIGHT MD 01/21/18 1459 Date Fady Light MD CC: Sameera Sommer DO; Johnathan Batres MD Signed CBC W/DIFF, AUTOMATED Collected: 01/17/2018 Status: F Source: [place] 11:51 AM [facility] [place] TYPE CODE TESTS RESULT OUT OF RANGE REFERENCE UNITS LAB L100.1000 4.4-11.0 K/mm3 Normal WBC 7.4 LAB L100.1200 4.6-6.2 M/mm3 Normal RBC 4.83 LAB L100.1300 13.0-16.5 g/dl Normal HGB 14.6 LAB L100.1400 40-54 % Normal HCT 45.0 LAB L100.1500 80-94 fL Normal MCV 93.2 LAB L100.1600 27.0-32.0 pg Normal MCH 30.2 LAB L100.1700 32-36 g/gl Normal MCHC 32.4 LAB L100.1810 11.6-14.6 % Normal RDW CV 14.4 LAB L100.1820 35.1-43.9 fl High RDW SD 47.7 LAB L100.1900 150-450 K/mm3 Normal PLT 248 LAB L100.2000 6.2-12.0 fl Normal MPV 10.9 LAB L100.2100 47-70 % High NEUT% 77.9 LAB L100.2200 19-41 % Low LY% 13.3 LAB L100.2300 0-10 % Normal MONO% 5.7 LAB L100.2400 0-5 % Normal EO% 2.0 LAB L100.2500 0-1 % Normal BASO% 0.7 LAB L100.2550 0.0-0.9 % Normal IM GRAN % 0.400 Result Comment: IG% - Immature Granulocytes (promyelocytes, myelocytes and metamyelocytes) > 1% indicates that a LEFT SHIFT is Present. LAB L100.2620 2.0-7.7 X10 3/uL Normal Absolute Neut 5.8 LAB L100.2720 0.83-4.51 X10 3/ul Normal Absolute Lymph 0.99 Performed By: #### L100.0100 #### [facility] [address] [place], [address] BASIC METABOLIC Collected: 01/17/2018 Status: F Source: [place] PROFILE (BMP) 11:51 AM [facility] [place] TYPE CODE TESTS RESULT OUT OF RANGE REFERENCE UNITS LAB L501.0100 74-106 mg/dL High GLU 359 Result Comment: Glucose result greater than or equal to 200 mg/dL suggests DIABETES MELLITUS per A.D.A. criteria. Please note revised GLUCOSE reference range effective 2017. LAB L501.1000 7-18 mg/dL High BUN 36 LAB L501.1100 0.70-1.30 mg/dL High CREAT,SERUM 1.62 Result Comment: The validity of the calculated GFR AND GFRAA in patients over 70 years has not been determined. Clinical correlation is essential. LAB L501.1110 >60 mL/min Low EST GFR 46 Result Comment: Non- GFR Calc LAB L501.1115 >60 mL/min Low EST GFR - AA 55 Result Comment: GFR Calc LAB L501.1300 10-20 RATIO High BUN/CRE 22.2 LAB L501.2200 8.5-10.1 mg/dL Low CA 8.3 LAB L501.5300 136-145 mmol/L NA Normal 138 LAB L501.5600 3.5-5.1 mmol/L K Normal 4.4 LAB L501.5900 98-107 mmol/L Low CL 97 LAB L501.6100 21.0-32.0 mmol/L Normal CO2 29.0 LAB L501.6200 5-15 Normal GAP 12 Performed By: #### L500.2500 #### [facility] [address] [place], [address] BNP,B-TYPE NATRIURETIC Collected: 01/17/2018 Status: F Source: [place] 11:51 AM [facility] [place] TYPE CODE TESTS RESULT OUT OF RANGE REFERENCE UNITS LAB L503.6620 0-100 pg/mL High B-TYPE 380.6 ZAKI PEP Performed By: #### L503.6620 #### [facility] [address] [place], [address] DISCHARGE INSTRUCTION Observed: 2018 Status: F Source: [place] 8:11 PM [facility] Medical Records Department [address] [place] [address] Discharge Instruction 01/16/182009 MR#: [id number] Acct: [id number] Name: FADI ALCANTAR Rep #: [id number] : 1950 68 From: Sameera Sommer DO PCP: Johnathan Batres MD, Chi Status: REG ER ED Disposition - Plan for ED Patient: Chief Complaint: Shortness of Breath Instructions: ED Constipation Referrals: Johnathan Batres Chi, MD [Primary Care Provider] - Johnathan Gutierrez III, MD [[facility]] - Ihsan Gutierrez MD [STAFF PHYSICIAN] - 3-5 Days What to do if you have Problems For any increased pain, shortness of breath, bleeding, nausea or vomiting, chest pain, or any unexpected problems, contact your Primary Care Provider. Call [facility] ([phone]) or report to the closest Emergency Room. Call 911 if necessary. 01/16/182010 <Electronically signed by Sameera Sommer DO> Date Sameera Sommer DO Cosigner Signature (If Indicated): Date CC: Johnathan Batres MD EMERGENCY DEPARTMENT Observed: 2018 Status: F Source: [place] SUMMARY 8:10 PM [facility] Medical Records Department [address] [place] [address] Emergency Department Summary 01/16/182006 MR#: [id number] Acct: [id number] Name: FADI ALCANTAR Rep #: [id number] : 1950 68 From: Sameera Sommer DO PCP: Johnathan Batres MD, Chi Status: REG ER - ER Visit Summary Date of Service: 01/16/18 Chief Complaint: [Shortness of breath] History of Present Illness: The patient is a 68 M [presents the emergency department complaint of feeling short of breath due to the fact that he has had increased abdominal bloating and distention. Patient states that he had 2 bowel movements today and has been having bowel movements but he considers normally. Patient has no real abdominal pain but just feels uncomfortable due to all the bloating. Patient denies any chest pain. Patient has had some leg swelling for about a week. Patient does have a history of diabetes, hypertension, high cholesterol, coronary artery disease, chronic kidney disease, peripheral vascular disease, pulmonary hypertension. Patient has had a cholecystectomy in the past. Patient denies any blood in his stool or black tarry stools. He denies any fevers. Patient denies any cough.] Physical Examination: [HEENT-PERRLA, EOMI. Cranial nerves II through XII grossly intact. TMs clear. Mucous membranes moist. No adenopathy. Cardiovascular-regular rate and rhythm without murmur or ectopy Lungs-clear to auscultation, chest wall stable without crepitus or subcu emphysema Abdomen-normoactive bowel sounds, soft. Patient has diffuse distention of the abdomen but no fluid wave noted. There is no rebound, rigidity, or perineal signs. Extremities-intact 4, normal range of motion, normal pulses, atraumatic] +2 edema both lower extremities. Test Results: [G obtained on arrival showed a sinus rhythm with a ventricular rate of 60 bpm with a first-degree AV block and a right bundle branch block noted. CBC with differential of 8.4, hemoglobin 12.9, hematocrit 40, platelets 246. Chemistries unremarkable. BUN was 33 creatinine 1.78. Glucose was 298. LFTs slightly elevated with ALT 127 and AST 135. Lipase was normal at 120. Troponin was less than 0.015. BNP was 283. Chest x-ray showed some mild pulmonary congestion cardiomegaly. CT scan of the abdomen and pelvis showed constipation otherwise nothing significant.] Emergency Department Course and Treatment: [At this point patient will be given a bottle of magnesium citrate for home] Treatment Plan: [Magnesium citrate for home and referral to general surgery information tech] Disposition: [Discharged home in stable condition Impression: [Constipation Abdominal distention] This note was generated with Codement[employer] software. It may contain incorrect words, spelling, and punctuation that were not noted in review of the chart prior to signing ED Disposition - Plan for ED Patient: Chief Complaint: Shortness of Breath Referrals: Johnathan Batres Chi, MD [Primary Care Provider] - What to do if you have Problems For any increased pain, shortness of breath, bleeding, nausea or vomiting, chest pain, or any unexpected problems, contact your Primary Care Provider. Call [facility] ([phone]) or report to the closest Emergency Room. Call 911 if necessary. 01/16/182009 <Electronically signed by Sameera Sommer DO> Date Sameera Sommer DO Cosigner Signature (If Indicated): Date CC: Johnathan Batres MD ABDOMEN/PELVIS WITHOUT Observed: 2018 Status: F Source: [place] 5:43 PM [facility] Imaging Services [facility] [place] [place] [address] Abdomen/Pelvis without Cont MR#: [id number] Acct: [id number] Name: FADI ALCANTAR Rep #: [id number] : 1950 M 68 From: Steven Vizcarra MD PCP: Medardo PELAEZ,Johnathan English Status: PRE ER Study: Abdomen/Pelvis without Cont Date of Exam: 01/16/18 Exam# [id number] Ordering Dr: Sameera Sommer DO STUDY: CT ABDOMEN AND PELVIS WITHOUT CONTRAST REASON FOR EXAM: Male, 68 years old. Abdominal pain RADIATION DOSAGE (If Supplied By Facility): CTDIvol = ( 28.48 ) mGy, DLP = ( 1508.23 ) mGycm TECHNIQUE: Transaxial images were obtained from the dome of the diaphragm to the symphysis pubis without oral contrast, and without intravenous contrast. Sagittal and coronal images were reconstructed. Individualized dose optimization techniques were used for this CT. COMPARISON: 10/19/2017 FINDINGS: Evaluation of the abdominal viscera is limited in the absence of intravenous contrast. There is a stable trace left pleural effusion with overlying atelectasis. The visualized portions of the heart and pericardium are within normal limits. There are coronary artery calcifications noted. The patient is status post cholecystectomy. The liver demonstrates an unremarkable unenhanced appearance. Again noted are calcified splenic granulomata. The pancreas demonstrates an unremarkable unenhanced appearance. The adrenal glands are within normal limits. There are no renal or ureteral stones. There is no hydronephrosis. Normal visualized stomach. There is no bowel obstruction or inflammation. There is a large amount of stool in the colon, consistent with constipation. The appendix is not visualized. There are atherosclerotic calcifications noted in the aorta and its branches. The aorta is normal in caliber. There is no abdominal or pelvic free air, free fluid, fluid collection or lymphadenopathy. There are no destructive osseous lesions. CT/Abdomen/Pelvis without Cont IMPRESSION: No bowel obstruction or inflammation. Normal appendix. Constipation. No urinary calculi. No hydronephrosis. Atherosclerosis and coronary artery disease. Stable trace left pleural effusion with overlying atelectasis. Electronically Signed: Steven Vizcarra, at 18:27 EDT Tel , Service support , CC: Sameera Sommer DO; Johnathan Batres MD Inbound Sales Manager: Signed CHEST 1 VIEW Observed: 2018 Status: F Source: [place] (PORT[place]) 5:43 PM [facility] REPOSITORY [facility] Imaging Services [address] [place] [address] Chest 1 View (Portable) MR#: [id number] Acct: [id number] Name: FADI ALCANTAR Rep #: [id number] : 1950 68 From: Steven Vizcarra MD PCP: Johnathan Batres MD, Chi Status: PRE ER Study: Chest 1 View (Portable) Date of Exam: 01/16/18 Exam# [id number] Ordering Dr: Sameera Sommer DO STUDY: X-RAY CHEST REASON FOR EXAM: Male, 68 years old. Dyspnea TECHNIQUE: Frontal view of the chest COMPARISON: 08/10/2017 FINDINGS: There are mild congestive changes noted. The lungs are otherwise clear. There are no pleural effusions. There is no pneumothorax. The heart is enlarged. There is a cardiac event recorder noted. The patient is status post sternotomy. RAD/Chest 1 View (Portable) IMPRESSION: Cardiomegaly. Mild pulmonary vascular congestion. Electronically Signed: Steven Vizcarra, at 18:31 EDT Tel , Service support , CC: Sameera Sommer DO; Johnathan Batres MD Inbound Sales Manager: Signed CBC W/DIFF, AUTOMATED Collected: 2018 Status: F Source: [place] 5:20 PM [facility] TYPE CODE TESTS RESULT OUT OF RANGE REFERENCE UNITS LAB L100.1000 4.4-11.0 K/mm3 Normal WBC 8.4 LAB L100.1200 4.6-6.2 M/mm3 Low RBC 4.32 LAB L100.1300 13.0-16.5 g/dl Low HGB 12.9 LAB L100.1400 40-54 % Normal HCT 40.3 LAB L100.1500 80-94 fL Normal MCV 93.3 LAB L100.1600 27.0-32.0 pg Normal MCH 29.9 LAB L100.1700 32-36 g/gl Normal MCHC 32.0 LAB L100.1810 11.6-14.6 % Normal RDW CV 14.3 LAB L100.1820 35.1-43.9 fl High RDW SD 48.5 LAB L100.1900 150-450 K/mm3 Normal PLT 246 LAB L100.2000 6.2-12.0 fl Normal MPV 10.9 LAB L100.2100 47-70 % High NEUT% 72.2 LAB L100.2200 19-41 % Low LY% 14.4 LAB L100.2300 0-10 % High MONO% 10.4 LAB L100.2400 0-5 % Normal EO% 2.3 LAB L100.2500 0-1 % Normal BASO% 0.5 LAB L100.2550 0.0-0.9 % Normal IM GRAN % 0.200 Result Comment: IG% - Immature Granulocytes (promyelocytes, myelocytes and metamyelocytes) > 1% indicates that a LEFT SHIFT is Present. LAB L100.2620 2.0-7.7 X10 3/uL Normal Absolute Neut 6.1 LAB L100.2720 0.83-4.51 X10 3/ul Normal Absolute Lymph 1.21 Performed By: #### L100.0100 #### [facility] [address] [place], [place], [address] COMPREHENSIVE METABOLIC Collected: 2018 Status: F [facility] TYPE CODE TESTS RESULT OUT OF RANGE REFERENCE UNITS LAB L501.0100 74-106 mg/dL High GLU 298 Result Comment: Glucose result greater than or equal to 200 mg/dL suggests DIABETES MELLITUS per A.D.A. criteria. Please note revised GLUCOSE reference range effective 2017. LAB L501.1000 7-18 mg/dL High BUN 33 LAB L501.1100 0.70-1.30 mg/dL High CREAT,SERUM 1.78 Result Comment: The validity of the calculated GFR AND GFRAA in patients over 70 years has not been determined. Clinical correlation is essential. LAB L501.1110 >60 mL/min Low EST GFR 41 Result Comment: Non- GFR Calc LAB L501.1115 >60 mL/min Low EST GFR - AA 49 Result Comment: GFR Calc LAB L501.1255 ml/min Normal Estimated CRCL 42.15 LAB L501.1300 10-20 RATIO Normal BUN/CRE 18.5 LAB L501.1500 6.4-8. g/dL Normal 2 T PROT 6.8 LAB L501.1800 3.2-5. g/dL Low 0 ALB 2.7 LAB L501.1950 2.2-4. g/dL Normal 2 GLOB 4.1 LAB L501.2000 0.9-2. RATIO Low 4 A/G 0.7 LAB L501.2200 8.5-10 mg/dL Low .1 CA 8.0 LAB L501.4100 15-37 U/L High AST 127 Result Comment: Slight Hemolysis, Result may be falsely increased. LAB L501.4305 45-117 U/L Normal ALK P 80 LAB L501.4405 16-61 U/L High ALT 135 LAB L501.4600 0.20-1.00 mg/dL Normal T BILI 0.40 LAB L501.5300 136-145 mmol/L Normal NA 136 LAB L501.5600 3.5-5.1 mmol/L Normal K 4.6 Result Comment: Slight Hemolysis, Result may be falsely increased. LAB L501.5900 98-107 mmol/L Normal CL 99 LAB L501.6100 21.0-32.0 mmol/L Normal CO2 31.0 LAB L501.6200 5-15 Normal GAP 6 Performed By: #### L500.4050, L501.2450, L501.4010 #### [facility] [address] [place], [place], [id number] LIPASE Collected: 2018 Status: F Source: [place] 5:20 PM [facility] [place] TYPE CODE TESTS RESULT OUT OF RANGE REFERENCE UNITS LAB L501.2450 73-393 U/L Normal LIPASE 120 Performed By: #### L500.4050, L501.2450, L501.4010 #### [facility] [address] [place], [address] TROPONIN-I Collected: 2018 Status: F Source: [place] 5:20 PM [facility] [place] CODE TESTS RESULT OUT OF RANGE REFERENCE UNITS LAB L501.4010 <0.045 ng/mL Normal < 0.015 TROPONIN-I Result Comment: TROPONIN-I EXPECTED VALUES <0.045 Negative 0.045 - 0.590 Consistent with Cardiac Damage > OR = 0.600 Critical Value Not every elevated troponin is indicative of TN. These values should be used with clinical judgement in examining the patient's clinical picture for diagnosis. To establish a diagnosis of TN versus myocardial injury, there must be a demonstrated rise and/or fall in the troponin values, in addition to ischemic symptoms, EKG changes, new regional wall motion abnormality, and/or angiographical evidence. PLEASE NOTE: REFERENCE RANGES EDITED 17 Performed By: #### L500.4050, L501.2450, L501.4010 #### [facility] [address] [place], [place], [id number] BNP,B-TYPE NATRIURETIC Collected: 2018 Status: F Source: [place] 5:20 PM [facility] [place] TYPE CODE TESTS RESULT OUT OF RANGE REFERENCE UNITS LAB L503.6620 0-100 pg/mL High B-TYPE 283.6 ZAKI PEP Performed By: #### L503.6620 #### [facility] [address] [place], [address] PSA,TOTAL - ANNUAL Collected: 12/24/2017 Status: F Source: [place] SCREEN 2:35 PM [facility] [place] CODE TESTS RESULT OUT OF RANGE REFERENCE UNITS LAB L501.9910 0.00-4.00 ng/mL Normal PSA,TOT 0.47 SCREEN Result Comment: This test was performed using the TPSA assay method for the FUJIAN HAIYUAN chemistry system. Values obtained with different assay methods cannot be used interchangably. When changing PSA assays in the course of monitoring a patient, additional sequential testing should be carried out to confirm baseline values. Performed By: #### L501.9910 #### [facility] [address] [place], [address] HEPATITIS C ANTIBODIES Collected: 12/24/2017 Status: F Source: [place] 2:35 PM [facility] [place] CODE TESTS RESULT OUT OF RANGE REFERENCE UNITS LAB L3100.0650 0.0-0.9 s/co ratio Normal HEP C AB 0.1 Result Comment: Negative: < 0.8 Indeterminate: 0.8 - 0.9 Positive: > 0.9 The CDC recommends that a positive HCV antibody result be followed up with a HCV Nucleic Acid Amplification test (134893). Performed at: - [facility] [id number] Outreach Worker: Charlie Hammonds PhD, Phone: [phone] Performed By: #### L3100.0625 #### [facility] (refer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 10/15/2017 Status: F Source: [place] 4:35 PM [facility] [place] 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 Required: No Is patient in pain?: No Allergies adhesive Allergy (Verified 10/15/17 14:23) SKIN GETS PULLED OFF latex Allergy (Verified 10/15/17 14:23) Hives Medications Clopidogrel Bisulfate [Plavix] 75 mg PO DAILY 05/15/13 [History Confirmed 10/15/17] Levothyroxine [Synthroid] 200 mcg PO DAILY 05/15/13 [History Confirmed 10/15/17] Metoprolol Tartrate [Lopressor (beta ramo)] 100 mg PO BID 05/15/13 [History Confirmed 10/15/17] Atorvastatin Calcium [Lipitor] 80 mg PO QHS 01/12/16 [History Confirmed 10/15/17] Pantoprazole Sodium [Protonix] 20 mg PO DAILY 01/12/16 [History Confirmed 10/15/17] Aspirin [Aspirin, Baby] 81 mg PO DAILY@0800 02/25/16 [History Confirmed 10/15/17] Furosemide [Lasix] 80 mg PO BID 02/13/17 [History Confirmed 09/26/17] Polyethylene Glycol 3350 1 pkt PO DAILY PRN 07/27/17 [History Confirmed 10/15/17] Insulin Aspart [Novolog Flexpen] 30 units SC TIDAC #5 flexpen 09/07/17 [Rx Confirmed 10/15/17] Insulin Detemir [Levemir FlexPen] 45 units SC 1000,2200 #5 insuln.pen 09/07/17 [Rx Confirmed 10/15/17] Iron Polysaccharide Complex [Ferrex 150] 150 mg PO DAILYCM #30 cap 09/07/17 [Rx Confirmed 10/15/17] Linagliptin [Tradjenta] 5 mg PO DAILY #30 tab 09/07/17 [Rx Confirmed 10/15/17] Lisinopril [Zestril] 2.5 tab PO DAILY #30 tab 09/07/17 [Rx Confirmed 10/15/17] Polyethylene Glycol 3350 [Miralax] 17 gm PO DAILY #30 packet 09/07/17 [Rx Confirmed 10/15/17] Potassium Chloride [K-Dur] 20 meq PO DAILYCM #30 tab 09/07/17 [Rx Confirmed 10/15/17] baclofen 10 mg tablet 10 mg PO TID 10/15/17 [History Confirmed 10/15/17] [facility] Medical History Sepsis (Acute) Osteomyelitis of foot (Acute) Diabetes mellitus (Chronic) Osteomyelitis of right foot (Acute) Chronic ulcer of left foot with fat layer exposed (Chronic) Hammer toe of right foot (Acute) Non-pressure chronic ulcer of other part of left foot with fat layer exposed (Chronic) Non-pressure chronic ulcer of other part of right foot with fat layer exposed (Chronic) PAD (peripheral artery disease) (Chronic) Diabetes mellitus with neuropathy (Chronic) Cellulitis of left foot (Acute) Cellulitis of right foot (Acute) Severe sepsis (Acute) CAD (coronary artery disease) (Chronic) Malnutrition (Chronic) Delayed wound healing (Chronic) Lower extremity edema (Chronic) Chronic ulcer of left foot with fat layer exposed (Chronic) Ulcer of right foot with fat layer exposed (Chronic) Hypertension (Chronic) Hyperlipidemia (Chronic) Hypothyroidism (Chronic) Coronary artery disease (Chronic) Sleep apnea (Chronic) Chronic kidney disease (Chronic) PAOD (peripheral arterial occlusive disease) (Chronic) GERD (gastroesophageal reflux disease) (Chronic) Muscle spasm (Chronic) Osteomyelitis of left foot (Chronic) Type 2 diabetes mellitus with diabetic polyneuropathy (Chronic) Cellulitis of left foot (Acute) Pulmonary hypertension (Chronic) Obstructive sleep apnea (Chronic) Morbid obesity (Chronic) Non compliance with medical treatment (Chronic) Diabetic foot ulcers (Chronic) Type II diabetes mellitus, uncontrolled (Chronic) History of esophageal reflux (Chronic) History of hyperlipidemia (Chronic) Hiatal hernia (Acute) Surgical History Aortocoronary bypass status (Chronic) History brain urgery (Acute) History of Gallbladder removal (Acute) Family History Grandfather Diabetes Heart disease Hypertension High blood cholesterol CVA (cerebral vascular accident) Son Thyroid disorder Social History Smoking Status: Former smoker alcohol intake: never substance use type: does not use HPI HPI HPI: FADI ALCATNAR, is a 67 M who presents to the office today for surgical consultation regarding abdominal distention and pain and dysphasia. The patient is referred by his primary care physician Dr. Batres and a written copy of my surgical consult recommendations will be returned to him. Getting a distinct timeline and history from this patient is somewhat challenging. The patient is 67 years of age. He complains that he has had trouble in the past with swallowing food. It then became apparent that actually his swallowing problem where he had sudden choking occurred December 2016. December 28, 2016 he had a esophagram performed at the [facility]. There was no stricturing. There was a normal GE junction. No hiatal hernia. A 12 mm tablet however became trapped at the GE junction. There was tortuosity of the aortic arch and descending thoracic aorta. The pulmonary parenchyma was unremarkable. Previously on December 27, 2016 the patient had a videoscopic swallowing function study. There was felt to be of normal tailored barium swallow. No increased risk for aspiration. Dating back to March 02, 2016 the patient had a abdominal ultrasound at that time. The liver measured 18.9 cm in dimension. Evidence of previous cholecystectomy. Common bile duct is 6 mm. The spleen was of normal size. We do not find evidence of recurrent CT of the abdomen. The patient states that he is been cared for by manufacturing clerk Dr.Vincent Willoughby that he has had both an upper and lower scope. According to the patient this demonstrated residual food. More recently on September 26, 2017 abdominal x-rays showed no acute abnormalities. The patient has been a long-term diabetic and he states that it is been mentioned to him that he likely has lack of good bowel function On today's visit his primary complaint is fullness and bloating particularly of the upper abdomen with what he feels is pain about 6 cm deep to the epigastric skin. He states that his abdomen is becoming larger in girth although his total weight is lessening. 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 I do not have records from the [facility] dated December 15, 2003. Dr. Charlie Willoughby performed a colonoscopy to the cecum. Normal-looking: No large polyps. It is of note that previously December 27, 1999 the patient had a polyp of the sigmoid colon removed which was a tubular adenoma. It does not appear that he has had any colonoscopy since that time ROS General General: Yes weight change; no appetite, fatigue, colon cancer, breast cancer or weakness HEENT HEENT: Yes difficulty swallowing and eye surgery; no eye injury, swollen glands or hoarseness Endo Endocrine: Yes thyroid disease and diabetes mellitus; no thyroid cancer, Hair loss, heat intolerance or cold intolerance Skin Skin: Yes rash; no changing moles Breast Breast: No left breast lump, right breast lump, nipple discharge, breast pain, abnormal mammogram, abnormal US or breast enlargement Musc Musculoskeletal: No back problems, arthritis, rheumatoid arthritis, gout or joint pain Cardio Cardiovascular: Yes high blood pressure, heart attack and heart stent; no murmur, pacemaker, heart disease, atrial fibrillation, palpitations, shortness of breat with exertion or chest pain Psych Psychiatric: No depression, anxiety or hearing voices Resp Respiratory: No shortness of breath, No sleep apnea, Yes cough, No COPD, No asthma, No emphysema, No wheezing Gastro Gastrointestinal: Yes abdominal pain, Yes nausea or vomiting, Yes diarrhea, No constipation, Yes blood in stool, Yes acid reflux, No hemorrhoids, No ulcers, No gallbladder problem, No black,tarry stools Edwin Hematologic: Yes blood thinners, No blood disorders, No bleeding, No anemia, No blood clots Neuro Neurologic: Yes numbness, No system reviewed and no additional complaints, except as docu, No as per HPI, No abnormal walking, No abnormal hearing, No abnormal movements, No abnormal speech, No behavioral changes, No burning sensations, No confusion, No seizure-like activity, No unsteadiness, No dizziness, No localized weakness, No frequent falls, No headache(s), No lack of coordination, No loss of vision, No memory loss, No other visual disturbances, No radiating pain, No restless legs, No sensory deficit, No fainting, Yes tingling, No tremor(s), No weakness, No other (stroke/TIA) Exam Const General: cooperative, no acute distress Nutritional Appearance: obese Orientation: alert, awake, oriented x3 HENMT Other: Very poor dentition Eyes General: appearance normal, both eyes and all related structures Neck Neck: normal visual inspection Chest Breast Palpation: No nipple discharge Other: Increased anterior posterior diameter Resp Effort AND Inspection: normal respiratory effort Auscultation: clear to auscultation bilaterally Cardio Rate: regular rate Rhythm: regular rhythm Heart Sounds: no murmurs GI Inspection: obesity Other: Very bulbous protuberant distended abdomen. Superficially tender to even light palpation of the supra umbilical epigastrium. Tympanitic to percussion. Diminished bowel sounds. No focal mass. Other: No gross tenderness of the groins Skin General: no rashes or lesions noted Neuro General: alert Extrem General: no calf tenderness Psych Appearance: grossly normal Assessment AND Plan Problems 1. Abdominal distension R14.0 2. Epigastric pain R10.13 Plan 67-year-old gentleman with abdominal distention and progressive epigastric pain. His current symptoms do not suggest gastroesophageal reflux disease or acute aphasia. He has still been swallowing food and liquids at this time. He states that he has had weight loss. States he has had progressive abdominal distention. There is a remote history of colon polyp. There is a suggestion that he has been previously instructed that he has poor motility possibly related to gastroparesis. He is superficially tender even light palpation of the epigastrium without mass. He is tympanitic. At this point I believe that obtaining laboratory would be pertinent. I recommend a CT scan of the abdomen and pelvis. Then with that information we can decide whether we should pursue a combined esophagogastroduodenoscopy with possible biopsy as well as colonoscopy with possible biopsy or polypectomy. It is very possible that the patient's abdominal distention is simply secondary to bowel dysmotility. He has had plain abdominal films that were not remarkable which would likely exclude acute obstruction. I believe that more information would be pertinent prior to proceeding with any type of endoscopic evaluation. I appreciate the opportunity of assisting with surgical care. We will proceed with further interventions as appropriate. Cc: Dr. Medardo Gutierrez M.D., F.A.C.S. Orders Orders: Coding Level of Care Code Comprehensive,moderate Diagnoses Abdominal distension R14.0 Epigastric pain R10.13 Abdominal location: epigastric 10/15/17 1635 <Electronically signed by Ihsan Gutierrez MD> Date Ihsan Gutierrez MD Cosigner Signature: Date (if applicable) CC: Johnathan Batres MD ABD INC DECUB Observed: 09/26/2017 Status: F Source: [place] AND/OR ERECT 11:56 AM [facility] [place] [facility] Imaging Services [address] [place] [address] Abd Inc Decub and/or Erect MR#: [id number] Acct: [id number] Name: FADI ALCANTAR Rep #: [id number] : 1950 67 From: Josefina Vaughan MD PCP: Johnathan Batres MD, Chi Status: REG CLI Study: Abd Inc Decub and/or Erect Date of Exam: 09/26/17 Exam# [id number] Ordering Dr: Johnathan Batres MD STUDY: X-RAY - ACUTE ABDOMINAL SERIES REASON FOR EXAM: Male, 67 years old. Abdominal pain and distention TECHNIQUE: Single view of the chest. Supine, and erect view(s) of the abdomen were obtained. COMPARISON: Abdomen radiographs dated September 05, 2017; chest radiographs dated August 10, 2017 FINDINGS: The lungs are adequately expanded. There is stable scarring in the left lung base. There is no demonstrated pleural abnormality. The cardiac silhouette is normal in size. There may be calcified lymph nodes in the right hilum. Sternotomy wires are present. The pulmonary arteries are unremarkable. There are vascular calcifications in the thoracic aorta. A stent projects over the right heart. The bowel gas pattern is unremarkable. There is no demonstrated abnormality of the major organs. Cholecystectomy clips are present. Phleboliths are stable in the lower pelvis. There are scattered vascular calcifications. There are mild degenerative changes in the spine. There is minimal levoscoliosis of the lumbar spine. RAD/Abd Inc Decub and/or Erect IMPRESSION: No acute abnormalities are seen in the chest, abdomen or pelvis. Electronically Signed: Josefina Vaughan MD at 11:52 EDT Tel Direct: [phone], Service support , CC: Johnathan Batres MD Inbound Sales Manager: Signed CBC W/DIFF, AUTOMATED Collected: 09/26/2017 Status: F Source: [place] 11:10 AM [facility] [place] TYPE CODE TESTS RESULT OUT OF RANGE REFERENCE UNITS LAB L100.1000 4.4-11.0 K/mm3 Normal WBC 8.5 LAB L100.1200 4.6-6.2 M/mm3 Normal RBC 4.67 LAB L100.1300 13.0-16.5 g/dl Normal HGB 14.2 LAB L100.1400 40-54 % Normal HCT 41.2 LAB L100.1500 80-94 fL Normal MCV 88.2 LAB L100.1600 27.0-32.0 pg Normal MCH 30.4 LAB L100.1700 32-36 g/gl Normal MCHC 34.5 LAB L100.1810 11.6-14.6 % Normal RDW CV 14.0 LAB L100.1820 35.1-43.9 fl High RDW SD 44.6 LAB L100.1900 150-450 K/mm3 Normal PLT 281 LAB L100.2000 6.2-12.0 fl Normal MPV 11.5 LAB L100.2100 47-70 % High NEUT% 76.0 LAB L100.2200 19-41 % Low LY% 11.8 LAB L100.2300 0-10 % Normal MONO% 8.8 LAB L100.2400 0-5 % Normal EO% 2.6 LAB L100.2500 0-1 % Normal BASO% 0.6 LAB L100.2550 0.0-0.9 % Normal IM GRAN % 0.200 Result Comment: IG% - Immature Granulocytes (promyelocytes, myelocytes and metamyelocytes) > 1% indicates that a LEFT SHIFT is Present. LAB L100.2620 2.0-7.7 X10 3/uL Normal Absolute Neut 6.5 LAB L100.2720 0.83-4.51 X10 3/ul Normal Absolute Lymph 1.01 Performed By: #### L100.0100 #### [facility] [address] [place], [address] COMPREHENSIVE METABOLIC Collected: 09/26/2017 Status: F Source: [facility] 11:10 AM [facility] [place] TYPE CODE TESTS RESULT OUT OF RANGE REFERENCE UNITS LAB L501.0100 74-106 mg/dL High GLU 450 Result Comment: Glucose result greater than or equal to 200 mg/dL suggests DIABETES MELLITUS per A.D.A. criteria. Please note revised GLUCOSE reference range effective 2017. LAB L501.1000 7-18 mg/dL High BUN 49 LAB L501.1100 0.70-1.30 mg/dL High CREAT,SERUM 1.63 Result Comment: The validity of the calculated GFR AND GFRAA in patients over 70 years has not been determined. Clinical correlation is essential. LAB L501.1110 >60 mL/min Low EST GFR 45 Result Comment: Non- GFR Calc LAB L501.1115 >60 mL/min Low EST GFR - AA 55 Result Comment: GFR Calc LAB L501.1300 10-20 RATIO High BUN/CRE 30.1 LAB L501.1500 6.4-8.2 g/dL T Normal PROT 6.9 LAB L501.1800 3.2-5.0 g/dL Normal ALB 3.3 LAB L501.1950 2.2-4.2 g/dL Normal GLOB 3.6 LAB L501.2000 0.9-2.4 RATIO Normal A/G 0.9 LAB L501.2200 8.5-10.1 mg/dL CA Normal 8.6 LAB L501.4100 15-37 U/L Normal AST 29 LAB L501.4305 45-117 U/L Normal ALK P 92 LAB L501.4405 16-61 U/L Normal ALT 43 LAB L501.4600 0.20-1.00 mg/dL T Normal BILI 0.30 LAB L501.5300 136-145 mmol/L Low NA 133 LAB L501.5600 3.5-5.1 mmol/L K Normal 4.7 LAB L501.5900 98-107 mmol/L Low CL 93 LAB L501.6100 21.0-32.0 mmol/L Normal CO2 29.0 LAB L501.6200 5-15 Normal GAP 11 Performed By: #### L500.4050, L501.9520 #### [facility] [address] [place], [address] THYROID STIM HORMONE Collected: 09/26/2017 Status: F Source: [place] ([facility]) 11:10 AM [facility] [place] TYPE CODE TESTS RESULT OUT OF RANGE REFERENCE UNITS LAB L501.9520 0.358-3.74 uIU/mL Normal TSH 0.83 Performed By: #### L500.4050, L501.9520 #### [facility] [address] [place], [address] VITAMIN D,25 HYDROXY Collected: 09/26/2017 Status: F Source: [place] 11:10 AM [facility] [place] [facility] TYPE CODE TESTS RESULT OUT OF REFERENCE UNITS RANGE LAB L506.1000 29.95-100.01 ng/mL Low Vitamin D 20.7 25-OH Result Comment: Vitamin D 25(OH) Status Range Deficiency <20 ng/mL (50nmol/L) Insuffciency 20 - 30 ng/mL (50 - 75 nmol/L) Sufficiency 30 - 100 ng/mL (75 - 250 nmol/L) Toxicity >100 ng/mL (>250 nmol/L) Performed By: #### L506.1000 #### [facility] [address] [place], [address] BEDSIDE GLUCOSE Collected: 09/12/2017 Status: F Source: [place] 11:29 AM [facility] [place] [facility] TYPE CODE TESTS RESULT OUT OF REFERENCE UNITS RANGE LAB L501.080 70-110 mg/dL High BEDSIDE GLU 237 Result Comment: Dr Rees Followed MANAGEMENT OF PATIENT CARE PER NURSING PROTOCOL Performed By: #### L501.080 #### [facility] Point of Care [address] [place] [address] DISCHARGE INSTRUCTION Observed: 09/12/2017 Status: F Source: [place] 8:21 AM [facility] [place] [facility] Medical Records Department [address] [place] [address] Instructions for Home/Discharge Instructions 09/12/17 0819 MR#: [id number] Acct: [id number] Name: FADI ALCANTAR Rep #: [id number] : 1950 67 From: Margaret Thomas DPM PCP: Medardo PELAEZ,Johnathan Chi Status: ADM IN Discharge Diet: No Restrictions Discharge Activity: Return to Normal Activity, May Shower, Use Walker Weight Bearing Status: Partial weight bearing - right and left lower extremity with surgical shoes; apply the weight to the heels Keep extremity elevated above heart level: Left Leg, Right Leg Call your doctor if your incision/area has: Continuous Slow Oozing, Sudden Increased Bleeding, Increased Pain/ Swelling, Increased Redness, Foul Smelling Discharge, Swelling at the incision site Call your doctor if you observe: Fever of 101 or Higher, Inability to urinate, Inability to have a bowel movement, Shortness of breath, Chest pain, Uncontrolled pain Cleanse incision/area with: - - change dressing every otherday with bonnie to bilateral foot ulcers, cover with well padded gauze and kerlix. secure with duane wraps (start on foot and end at proximal leg) Allergies/Adverse Reactions: Allergies adhesive Allergy (Verified 02/13/17 14:38) SKIN GETS PULLED OFF SKIN GETS PULLED OFF latex Allergy (Verified 02/13/17 14:38) Hives Medications to take at Discharge Clopidogrel Bisulfate [Plavix] 75 mg PO DAILY 05/15/13 Levothyroxine [Synthroid] 200 mcg PO DAILY 05/15/13 Metoprolol Tartrate [Lopressor (beta ramo)] 100 mg PO BID 05/15/13 Atorvastatin Calcium [Lipitor] 80 mg PO QHS 01/12/16 Pantoprazole Sodium [Protonix] 20 mg PO DAILY 01/12/16 Aspirin [Aspirin, Baby] 81 mg PO DAILY@0800 02/25/16 Furosemide [Lasix] 80 mg PO BID 02/13/17 Polyethylene Glycol 3350 1 pkt PO DAILY PRN 07/27/17 Insulin Aspart [Novolog Flexpen] 30 units SC TIDAC #5 flexpen 09/07/17 Insulin Detemir [Levemir FlexPen] 45 units SC 1000,2200 #5 insuln.pen 09/07/17 Iron Polysaccharide Complex [Ferrex 150] 150 mg PO DAILYCM #30 cap 09/07/17 Linagliptin [Tradjenta] 5 mg PO DAILY #30 tab 09/07/17 Lisinopril [Zestril] 2.5 tab PO DAILY #30 tab 09/07/17 Polyethylene Glycol 3350 [Miralax] 17 gm PO DAILY #30 packet 09/07/17 Potassium Chloride [K-Dur] 20 meq PO DAILYCM #30 tab 09/07/17 The following prescriptions were given: Insulin Aspart [Novolog Flexpen] 30 units SC TIDAC #5 flexpen Insulin Detemir [Levemir FlexPen] 45 units SC 1000,2200 #5 insuln.pen Iron Polysaccharide Complex [Ferrex 150] 150 mg PO DAILYCM #30 cap Linagliptin [Tradjenta] 5 mg PO DAILY #30 tab Lisinopril [Zestril] 2.5 tab PO DAILY #30 tab Polyethylene Glycol 3350 [Miralax] 17 gm PO DAILY #30 packet Potassium Chloride [K-Dur] 20 meq PO DAILYCM #30 tab Primary Care Physician: Johnathan Batres Chi, MD [Primary Care Provider] - Please follow up with your Primary Care Physician in: 1 week. Please Follow Up With: Florencio Redding MD When: 2 weeks. Please Follow Up With: Dr. Batres PCP When: 1 week Please Follow Up With: Margaret Thomas DPM When: 1 week at the wound care center; call to confirm appointment time Proposed Discharge Date: 09/12/17 09/12/17820 <Electronically signed by Margaret Thomas DPM> Date Margaret Thomas DPM CC: Margaret Thomas DPM; Ihsan Pepe MD; Johnathan Batres MD BEDSIDE GLUCOSE Collected: 09/12/2017 Status: F Source: [place] 6:26 AM [facility] [place] CODE TESTS RESULT OUT OF REFERENCE UNITS RANGE LAB L501.080 70-110 mg/dL High BEDSIDE GLU 333 Result Comment: MANAGEMENT OF PATIENT CARE PER NURSING PROTOCOL Performed By: #### L501.080 #### [facility] Point of Care [address] [place] [address] BEDSIDE GLUCOSE Collected: 09/12/2017 Status: F Source: [place] 3:28 AM [facility] [place] CODE TESTS RESULT OUT OF REFERENCE UNITS RANGE LAB L501.080 70-110 mg/dL High BEDSIDE GLU 312 Result Comment: MANAGEMENT OF PATIENT CARE PER NURSING PROTOCOL Performed By: #### L501.080 #### [facility] Point of Care [address] [place] [address] BEDSIDE GLUCOSE Collected: 09/11/2017 Status: F Source: [place] 8:48 PM [facility] [place] CODE TESTS RESULT OUT OF REFERENCE UNITS RANGE LAB L501.080 70-110 mg/dL High BEDSIDE GLU 265 Result Comment: MANAGEMENT OF PATIENT CARE PER NURSING PROTOCOL Performed By: #### L501.080 #### [facility] Point of Care [address] [place] [address] BEDSIDE GLUCOSE Collected: 09/11/2017 Status: F Source: [place] 4:40 PM [facility] [place] TYPE CODE TESTS RESULT OUT OF REFERENCE UNITS RANGE LAB L501.080 70-110 mg/dL High BEDSIDE GLU 253 Result Comment: MANAGEMENT OF PATIENT CARE PER NURSING PROTOCOL Performed By: #### L501.080 #### [facility] Point of Care [address] [place] [address] BEDSIDE GLUCOSE Collected: 09/11/2017 Status: F Source: [place] 11:14 AM [facility] [place] TYPE CODE TESTS RESULT OUT OF REFERENCE UNITS RANGE LAB L501.080 70-110 mg/dL High BEDSIDE GLU 352 Result Comment: Dr Rees Followed MANAGEMENT OF PATIENT CARE PER NURSING PROTOCOL Performed By: #### L501.080 #### [facility] Point of Care [address] [place] [address] BEDSIDE GLUCOSE Collected: 09/11/2017 Status: F Source: [place] 6:16 AM [facility] [place] TYPE CODE TESTS RESULT OUT OF REFERENCE UNITS RANGE LAB L501.080 70-110 mg/dL High BEDSIDE GLU 284 Result Comment: MANAGEMENT OF PATIENT CARE PER NURSING PROTOCOL Performed By: #### L501.080 #### [facility] Point of Care [address] [place] [address] BEDSIDE GLUCOSE Collected: 09/11/2017 Status: F Source: [place] 1:56 AM [facility] [place] TYPE CODE TESTS RESULT OUT OF REFERENCE UNITS RANGE LAB L501.080 70-110 mg/dL High BEDSIDE GLU 366 Result Comment: MANAGEMENT OF PATIENT CARE PER NURSING PROTOCOL Performed By: #### L501.080 #### [facility] Point of Care [address] [place] [address] BEDSIDE GLUCOSE Collected: 09/10/2017 Status: F Source: [place] 8:46 PM [facility] [place] TYPE CODE TESTS RESULT OUT OF REFERENCE UNITS RANGE LAB L501.080 70-110 mg/dL High BEDSIDE GLU 417 Result Comment: MANAGEMENT OF PATIENT CARE PER NURSING PROTOCOL Performed By: #### L501.080 #### [facility] Point of Care [address] [place] [address] BEDSIDE GLUCOSE Collected: 09/10/2017 Status: F Source: [place] 4:47 PM [facility] [place] TYPE CODE TESTS RESULT OUT OF REFERENCE UNITS RANGE LAB L501.080 70-110 mg/dL High BEDSIDE GLU 390 Result Comment: MANAGEMENT OF PATIENT CARE PER NURSING PROTOCOL Performed By: #### L501.080 #### [facility] Point of Care [address] [place] [address] BEDSIDE GLUCOSE Collected: 09/10/2017 Status: F Source: [place] 11:00 AM [facility] [place] TYPE CODE TESTS RESULT OUT OF REFERENCE UNITS RANGE LAB L501.080 70-110 mg/dL High BEDSIDE GLU 437 Result Comment: MANAGEMENT OF PATIENT CARE PER NURSING PROTOCOL Performed By: #### L501.080 #### [facility] Point of Care [address] [place] [address] BEDSIDE GLUCOSE Collected: 09/10/2017 Status: F Source: [place] 6:28 AM [facility] [place] TYPE CODE TESTS RESULT OUT OF REFERENCE UNITS RANGE LAB L501.080 70-110 mg/dL High BEDSIDE GLU 283 Result Comment: MANAGEMENT OF PATIENT CARE PER NURSING PROTOCOL Performed By: #### L501.080 #### [facility] Point of Care [address] [place] [address] BEDSIDE GLUCOSE Collected: 09/09/2017 Status: F Source: [place] 8:46 PM [facility] [place] TYPE CODE TESTS RESULT OUT OF REFERENCE UNITS RANGE LAB L501.080 70-110 mg/dL High BEDSIDE GLU 141 Result Comment: MANAGEMENT OF PATIENT CARE PER NURSING PROTOCOL Performed By: #### L501.080 #### [facility] Point of Care [address] [place] [address] BEDSIDE GLUCOSE Collected: 09/09/2017 Status: F Source: [place] 4:49 PM [facility] [place] TYPE CODE TESTS RESULT OUT OF REFERENCE UNITS RANGE LAB L501.080 70-110 mg/dL High BEDSIDE GLU 191 Result Comment: MANAGEMENT OF PATIENT CARE PER NURSING PROTOCOL Performed By: #### L501.080 #### [facility] Point of Care [address] [place] [address] BEDSIDE GLUCOSE Collected: 09/09/2017 Status: F Source: [place] 11:16 AM [facility] [place] TYPE CODE TESTS RESULT OUT OF REFERENCE UNITS RANGE LAB L501.080 70-110 mg/dL High BEDSIDE GLU 275 Result Comment: MANAGEMENT OF PATIENT CARE PER NURSING PROTOCOL Performed By: #### L501.080 #### [facility] Point of Care [address] [place] [address] BEDSIDE GLUCOSE Collected: 09/09/2017 Status: F Source: [place] 6:56 AM [facility] [place] TYPE CODE TESTS RESULT OUT OF REFERENCE UNITS RANGE LAB L501.080 70-110 mg/dL High BEDSIDE GLU 378 Result Comment: MANAGEMENT OF PATIENT CARE PER NURSING PROTOCOL Performed By: #### L501.080 #### [facility] Point of Care [address] [place] [address] BEDSIDE GLUCOSE Collected: 09/09/2017 Status: F Source: [place] 3:12 AM [facility] [place] TYPE CODE TESTS RESULT OUT OF REFERENCE UNITS RANGE LAB L501.080 70-110 mg/dL High BEDSIDE GLU 449 Result Comment: MANAGEMENT OF PATIENT CARE PER NURSING PROTOCOL Performed By: #### L501.080 #### [facility] Point of Care [address] [place] [address] BEDSIDE GLUCOSE Collected: 09/08/2017 Status: F Source: [place] 9:02 PM [facility] [place] TYPE CODE TESTS RESULT OUT OF REFERENCE UNITS RANGE LAB L501.080 70-110 mg/dL High alert BEDSIDE GLU 470 Result Comment: Dr Rees Followed MANAGEMENT OF PATIENT CARE PER NURSING PROTOCOL Performed By: #### L501.080 #### [facility] Point of Care [address] [place] [address] BEDSIDE GLUCOSE Collected: 09/08/2017 Status: F Source: [place] 4:42 PM [facility] [place] TYPE CODE TESTS RESULT OUT OF REFERENCE UNITS RANGE LAB L501.080 70-110 mg/dL High BEDSIDE GLU 412 Result Comment: MANAGEMENT OF PATIENT CARE PER NURSING PROTOCOL Performed By: #### L501.080 #### [facility] Point of Care [address] [place] [address] BEDSIDE GLUCOSE Collected: 09/08/2017 Status: F Source: [place] 12:38 PM [facility] [place] TYPE CODE TESTS RESULT OUT OF REFERENCE UNITS RANGE LAB L501.080 70-110 mg/dL High BEDSIDE GLU 443 Result Comment: MANAGEMENT OF PATIENT CARE PER NURSING PROTOCOL Performed By: #### L501.080 #### [facility] Point of Care [address] [place] [address] BEDSIDE GLUCOSE Collected: 09/08/2017 Status: F Source: [place] 11:15 AM [facility] [place] TYPE CODE TESTS RESULT OUT OF REFERENCE UNITS RANGE LAB L501.080 70-110 mg/dL High BEDSIDE GLU 447 Result Comment: MANAGEMENT OF PATIENT CARE PER NURSING PROTOCOL Performed By: #### L501.080 #### [facility] Point of Care [address] [place], [place] [address] BEDSIDE GLUCOSE Collected: 09/08/2017 Status: F Source: [place] 6:30 AM [facility] [place] TYPE CODE TESTS RESULT OUT OF REFERENCE UNITS RANGE LAB L501.080 70-110 mg/dL High BEDSIDE GLU 145 Result Comment: MANAGEMENT OF PATIENT CARE PER NURSING PROTOCOL Performed By: #### L501.080 #### [facility] Point of Care [address] [place], [place] [address] CBC W/DIFF, AUTOMATED Collected: 09/08/2017 Status: F Source: [place] 5:55 AM [facility] [place] TYPE CODE TESTS RESULT OUT OF RANGE REFERENCE UNITS LAB L100.1000 4.4-11.0 K/mm3 Normal WBC 9.0 LAB L100.1200 4.6-6.2 M/mm3 Low RBC 4.18 LAB L100.1300 13.0-16.5 g/dl Low HGB 12.4 LAB L100.1400 40-54 % Low HCT 37.6 LAB L100.1500 80-94 fL Normal MCV 90.0 LAB L100.1600 27.0-32.0 pg Normal MCH 29.7 LAB L100.1700 32-36 g/gl Normal MCHC 33.0 LAB L100.1810 11.6-14.6 % Normal RDW CV 14.2 LAB L100.1820 35.1-43.9 fl High RDW SD 46.2 LAB L100.1900 150-450 K/mm3 Normal PLT 319 LAB L100.2000 6.2-12.0 fl Normal MPV 10.1 LAB L100.2100 47-70 % Normal NEUT% 65.4 LAB L100.2200 19-41 % Low LY% 14.0 LAB L100.2300 0-10 % High MONO% 10.4 LAB L100.2400 0-5 % High EO% 8.7 LAB L100.2500 0-1 % High BASO% 1.2 LAB L100.2550 0.0-0.9 % Normal IM GRAN % 0.300 Result Comment: IG% - Immature Granulocytes (promyelocytes, myelocytes and metamyelocytes) > 1% indicates that a LEFT SHIFT is Present. LAB L100.2620 2.0-7.7 X10 3/uL Normal Absolute Neut 5.9 LAB L100.2720 0.83-4.51 X10 3/ul Normal Absolute Lymph 1.27 Performed By: #### L100.0100 #### [facility] [address] [facility]. [place], [place], [address] BASIC METABOLIC Collected: 09/08/2017 Status: F Source: [place] PROFILE (BMP) 5:55 AM [facility] [place] CODE TESTS RESULT OUT OF RANGE REFERENCE UNITS LAB L501.0100 74-106 mg/dL High GLU 124 Result Comment: Fasting Glucose result from 100 to 125 mg/dL suggests IMPAIRED HOMEOSTASIS per A.D.A. criteria. Please note revised GLUCOSE reference range effective 2017. LAB L501.1000 7-18 mg/dL High BUN 32 LAB L501.1100 0.70-1.30 mg/dL Normal CREAT,SERUM 1.12 Result Comment: The validity of the calculated GFR AND GFRAA in patients over 70 years has not been determined. Clinical correlation is essential. LAB L501.1110 >60 mL/min Normal EST GFR 70 Result Comment: Non- GFR Calc LAB L501.1115 >60 mL/min Normal EST GFR - AA 85 Result Comment: GFR Calc LAB L501.1255 ml/min Normal Estimated CRCL 70.03 LAB L501.1300 10-20 RATIO High BUN/CRE 28.6 LAB L501.2200 8.5-10 mg/dL Normal .1 CA 9.0 LAB L501.5300 136-14 mmol/L Normal 5 NA 138 LAB L501.5600 3.5-5. mmol/L Normal 1 K 4.1 LAB L501.5900 98-107 mmol/L Normal CL 100 LAB L501.6100 21.0-3 mmol/L Normal 2.0 CO2 31.0 LAB L501.6200 5-15 Normal GAP 7 Performed By: #### L500.2500 #### [facility] [address] [facility] [place], [place], [address] BEDSIDE GLUCOSE Collected: 09/07/2017 Status: F Source: [place] 8:59 PM [facility] [place] TYPE CODE TESTS RESULT OUT OF REFERENCE UNITS RANGE LAB L501.080 70-110 mg/dL High BEDSIDE GLU 130 Result Comment: MANAGEMENT OF PATIENT CARE PER NURSING PROTOCOL Performed By: #### L501.080 #### [facility] Point of Care [address] [facility]. [place], [place] [address] BEDSIDE GLUCOSE Collected: 09/07/2017 Status: F Source: [place] 4:49 PM [facility] [place] TYPE CODE TESTS RESULT OUT OF REFERENCE UNITS RANGE LAB L501.080 70-110 mg/dL High BEDSIDE GLU 130 Result Comment: MANAGEMENT OF PATIENT CARE PER NURSING PROTOCOL Performed By: #### L501.080 #### [facility] Point of Care [address] [facility]. [place], [place] [address] DISCHARGE SUMMARY Observed: 09/07/2017 Status: F Source: [place] 2:13 PM [facility] Medical Records Department [address] [place] [address] Discharge Summary 09/07/17 1411 MR#: [id number] Acct: [id number] Name: FADI ALCANTAR Rep #: [id number] : 1950 67 From: Johnathan Batres MD PCP: Johnathan Batres MD, Chi Status: ADM IN Location: [place] [address] Discharge Date and Diagnosis - Problem List Patient Problems: Active and Suspected Problems Sepsis (Acute) Osteomyelitis of foot (Acute) Date of Admission: 08/13/17 Date of Discharge: 09/12/17 - Primary Discharge Diagnosis Active and Suspected Problems Sepsis (Acute) Osteomyelitis of foot (Acute) - Secondary Discharge Diagnosis Chronic Problems Diabetes mellitus (Chronic) Non-pressure chronic ulcer of other part of left foot with fat layer exposed (Chronic) Non-pressure chronic ulcer of other part of right foot with fat layer exposed (Chronic) PAD (peripheral artery disease) (Chronic) Diabetes mellitus with neuropathy (Chronic) CAD (coronary artery disease) (Chronic) Malnutrition (Chronic) Delayed wound healing (Chronic) Lower extremity edema (Chronic) Chronic ulcer of left foot with fat layer exposed (Chronic) Ulcer of right foot with fat layer exposed (Chronic) Hypertension (Chronic) Hyperlipidemia (Chronic) Hypothyroidism (Chronic) Coronary artery disease (Chronic) Sleep apnea (Chronic) Chronic kidney disease (Chronic) PAOD (peripheral arterial occlusive disease) (Chronic) GERD (gastroesophageal reflux disease) (Chronic) Muscle spasm (Chronic) Osteomyelitis of left foot (Chronic) Type 2 diabetes mellitus with diabetic polyneuropathy (Chronic) Pulmonary hypertension (Chronic) Obstructive sleep apnea (Chronic) Morbid obesity (Chronic) Non compliance with medical treatment (Chronic) Diabetic foot ulcers (Chronic) Aortocoronary bypass status (Chronic) Type II diabetes mellitus, uncontrolled (Chronic) History of esophageal reflux (Chronic) History of hyperlipidemia (Chronic) History of hypertension (Chronic) History of hypothyroidism (Chronic) Macular infarction (Chronic) Peripheral vascular disease (Chronic) Hospital Course and Treatment Imaging Results: 08/03/17 15:34 Diet: Cardiac: Calorie-Controlled Food consistency:: Regular Liquid Consistency:: Regular/Thin Dietary Modifications:: Fluid Restricted Diet Is pt able to select menu?: Yes Diet Comments: 2000 How many daily calories?: 2000 calorie Clinical Impression(s) from Imaging Studies Chest X-Ray 08/10/17 15:46 IMPRESSION: Left lower lobe atelectasis. Small left pleural effusion. Electronically Signed: Raj Foss MD at 16:21 EST , Service support , KUB X-Ray 08/10/17 16:00 IMPRESSION: Constipation. Electronically Signed: Raj Foss MD at 16:19 EST , Service support , Abdomen X-Ray 09/05/17 10:48 IMPRESSION: Nonacute x-ray examination of the abdomen and pelvis. Nonobstructed nonspecific visualized intestinal gas pattern. Fairly severe arteriosclerosis. 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 Thomas, admitted to TCU for rehabilitation, strengthening, wound care, intravenous antibiotics, prior to discharge home alone. [] Discharge home alone, with Home Health services. Home health ordered. Discharge Diet: No Restrictions Discharge Activity: Return to Normal Activity, May Shower, Use Walker Weight Bearing Status: Weight bearing as tolerated Call your doctor if you observe: Fever of 101 or Higher, Inability to urinate, Inability to have a bowel movement, Shortness of breath, Chest pain, Uncontrolled pain Home Medications: Medications to take at Discharge Clopidogrel Bisulfate [Plavix] 75 mg PO DAILY 05/15/13 Levothyroxine [Synthroid] 200 mcg PO DAILY 05/15/13 Metoprolol Tartrate [Lopressor (beta ramo)] 100 mg PO BID 05/15/13 Atorvastatin Calcium [Lipitor] 80 mg PO QHS 01/12/16 Pantoprazole Sodium [Protonix] 20 mg PO DAILY 01/12/16 Aspirin [Aspirin, Baby] 81 mg PO DAILY@0800 02/25/16 Furosemide [Lasix] 80 mg PO BID 02/13/17 Polyethylene Glycol 3350 1 pkt PO DAILY PRN 07/27/17 Insulin Aspart [Novolog Flexpen] 30 units SC TIDAC #5 flexpen 09/07/17 Insulin Detemir [Levemir FlexPen] 45 units SC 1000,2200 #5 insuln.pen 09/07/17 Iron Polysaccharide Complex [Ferrex 150] 150 mg PO DAILYCM #30 cap 09/07/17 Linagliptin [Tradjenta] 5 mg PO DAILY #30 tab 09/07/17 Lisinopril [Zestril] 2.5 tab PO DAILY #30 tab 09/07/17 Polyethylene Glycol 3350 [Miralax] 17 gm PO DAILY #30 packet 09/07/17 Potassium Chloride [K-Dur] 20 meq PO DAILYCM #30 tab 09/07/17 Following Prescrptions Were Given to Patient: Insulin Aspart [Novolog Flexpen] 30 units SC TIDAC #5 flexpen Insulin Detemir [Levemir FlexPen] 45 units SC 1000,2200 #5 insuln.pen Iron Polysaccharide Complex [Ferrex 150] 150 mg PO DAILYCM #30 cap Linagliptin [Tradjenta] 5 mg PO DAILY #30 tab Lisinopril [Zestril] 2.5 tab PO DAILY #30 tab Polyethylene Glycol 3350 [Miralax] 17 gm PO DAILY #30 packet Potassium Chloride [K-Dur] 20 meq PO DAILYCM #30 tab Primary Care Physician: Johnathan Batres Chi, MD [Primary Care Provider] - Please follow up with your Primary Care Physician in: 1 week. Please Follow Up With: Florencio Redding MD When: 2 weeks. Disposition: Home with Home Health Minutes spent on discharge:: 35 Patient Condition:: Good Medical Necessity - Tobacco Use Smoking Status: Former smoker Tobacco Use: Non-smoker Meaningful Use Info Meaningful Use Diagnoses (Choose all that apply): None applicable 09/07/171412 <Electronically signed by Johnathan Batres MD> Date Johnathan Batres MD Cosigner Signature (if applicable): Date CC: Johnathan Batres MD Signed HOME HEALTH PROGRESS Observed: 09/07/2017 Status: F Source: [place] NOTE 2:13 PM [facility] [place] [facility] Medical Records Department [address] [place] [address] Home Health Progress Note [id number] Encounter Encounter Date: 09/07/17 141 MR#: [id number] Acct: [id number] Name: FADI ALCANTAR Rep #: [id number] : 1950 67 From: Johnathan Batres MD PCP: Johnathan Batres MD, Chi Status: ADM IN Location: [place] [address] Home Health Note - Plan Overview of reason of hospitalization: The patient is a 67 year old Male with below past medical history hospitalized for sepsis, bilateral foot cellulitis/osteomyelitis, under right foot 5th ray resection, left foot 1st ray resection revision with Dr. Thomas, admitted to TCU for rehabilitation, strengthening, wound care, intravenous antibiotics, prior to discharge home alone. [] Discharge home alone, with Home Health services. Home health ordered. Problems: Patient was seen for Sepsis (Acute) Osteomyelitis of foot (Acute) Diabetes mellitus (Chronic) Complete List of Medical Problems Sepsis (Acute) Osteomyelitis of foot (Acute) Diabetes mellitus (Chronic) Osteomyelitis of right foot (Acute) Hammer toe of right foot (Acute) Non-pressure chronic ulcer of other part of left foot with fat layer exposed (Chronic) Non-pressure chronic ulcer of other part of right foot with fat layer exposed (Chronic) PAD (peripheral artery disease) (Chronic) Diabetes mellitus with neuropathy (Chronic) Cellulitis of left foot (Acute) Cellulitis of right foot (Acute) Severe sepsis (Acute) CAD (coronary artery disease) (Chronic) Malnutrition (Chronic) Delayed wound healing (Chronic) Lower extremity edema (Chronic) Chronic ulcer of left foot with fat layer exposed (Chronic) Ulcer of right foot with fat layer exposed (Chronic) Hypertension (Chronic) Hyperlipidemia (Chronic) Hypothyroidism (Chronic) Coronary artery disease (Chronic) Sleep apnea (Chronic) Chronic kidney disease (Chronic) PAOD (peripheral arterial occlusive disease) (Chronic) GERD (gastroesophageal reflux disease) (Chronic) Muscle spasm (Chronic) Osteomyelitis of left foot (Chronic) Type 2 diabetes mellitus with diabetic polyneuropathy (Chronic) Cellulitis of left foot (Acute) Pulmonary hypertension (Chronic) Obstructive sleep apnea (Chronic) Morbid obesity (Chronic) Non compliance with medical treatment (Chronic) Diabetic foot ulcers (Chronic) Aortocoronary bypass status (Chronic) Type II diabetes mellitus, uncontrolled (Chronic) History of esophageal reflux (Chronic) History of hyperlipidemia (Chronic) History of hypertension (Chronic) History of hypothyroidism (Chronic) Macular infarction (Chronic) Peripheral vascular disease (Chronic) - Requirements and Reasons Disciplines Needed/Ordered: [facility], Physical Therapy Reason for Disciplines: Disease Specific Monitoring/education, Medication Management/Knowledge Deficit, Wound Care, Gait Training, Stair Training, Fall Prevention, Home Safety/Equipment Instruction, Balance and/or Posture Training, Transfer Training Related To: Limited/Poor Endurance, Physical Impairments, Unsteady Gait/Balance, Fall Risk Patient is unable to leave the home: Without Aid of Supportive Devices (crutches, cane, wheelchair, walker), Without the assistance of another person - Additional Disciplines Additional Disciplines Needed/Ordered: Occupational Therapy, Home Health Aide 09/07/17 1413 <Electronically signed by Johnathan Batres MD> Date Johnathan Batres MD Cosigner Signature (if indicated): Date CC: Signed DISCHARGE INSTRUCTION Observed: 09/07/2017 Status: F Source: [place] 2:11 PM [facility] [place] [facility] Medical Records Department [address] [place] [address] Instructions for Home/Discharge Instructions 09/07/17 1409 MR#: [id number] Acct: [id number] Name: FADI ALCANTAR Rep #: [id number] : 1950 67 From: Johnathan Batres MD PCP: Johnathan Batres MD, Chi Status: ADM IN - Discharge Diagnoses Current Active Problems: Current Active and Chronic Problems Sepsis (Acute) Osteomyelitis of foot (Acute) Diabetes mellitus (Chronic) You will use the following diet at home:: No restrictions, Regular Your food should be the consistency of: Regular Your liquids should be the consistency of: Regular/Thin Discharge Activity: Return to Normal Activity, May Shower, Use Walker Weight Bearing Status: Weight bearing as tolerated Call your doctor if you observe: Fever of 101 or Higher, Inability to urinate, Inability to have a bowel movement, Shortness of breath, Chest pain, Uncontrolled pain Allergies/Adverse Reactions: Allergies adhesive Allergy (Verified 02/13/17 14:38) SKIN GETS PULLED OFF SKIN GETS PULLED OFF latex Allergy (Verified 02/13/17 14:38) Hives Medications to take at Discharge Clopidogrel Bisulfate [Plavix] 75 mg PO DAILY 05/15/13 Levothyroxine [Synthroid] 200 mcg PO DAILY 05/15/13 Metoprolol Tartrate [Lopressor (beta ramo)] 100 mg PO BID 05/15/13 Atorvastatin Calcium [Lipitor] 80 mg PO QHS 01/12/16 Pantoprazole Sodium [Protonix] 20 mg PO DAILY 01/12/16 Aspirin [Aspirin, Baby] 81 mg PO DAILY@0800 02/25/16 Furosemide [Lasix] 80 mg PO BID 02/13/17 Polyethylene Glycol 3350 1 pkt PO DAILY PRN 07/27/17 Insulin Aspart [Novolog Flexpen] 30 units SC TIDAC #5 flexpen 09/07/17 Insulin Detemir [Levemir FlexPen] 45 units SC 1000,2200 #5 insuln.pen 09/07/17 Iron Polysaccharide Complex [Ferrex 150] 150 mg PO DAILYCM #30 cap 09/07/17 Linagliptin [Tradjenta] 5 mg PO DAILY #30 tab 09/07/17 Lisinopril [Zestril] 2.5 tab PO DAILY #30 tab 09/07/17 Polyethylene Glycol 3350 [Miralax] 17 gm PO DAILY #30 packet 09/07/17 Potassium Chloride [K-Dur] 20 meq PO DAILYCM #30 tab 09/07/17 The following prescriptions were given: Insulin Aspart [Novolog Flexpen] 30 units SC TIDAC #5 flexpen Insulin Detemir [Levemir FlexPen] 45 units SC 1000,2200 #5 insuln.pen Iron Polysaccharide Complex [Ferrex 150] 150 mg PO DAILYCM #30 cap Linagliptin [Tradjenta] 5 mg PO DAILY #30 tab Lisinopril [Zestril] 2.5 tab PO DAILY #30 tab Polyethylene Glycol 3350 [Miralax] 17 gm PO DAILY #30 packet Potassium Chloride [K-Dur] 20 meq PO DAILYCM #30 tab Primary Care Physician: Johnathan Batres Chi, MD [Primary Care Provider] - Please follow up with your Primary Care Physician in: 1 week. Please Follow Up With: Florencio Redding MD When: 2 weeks. Proposed Discharge Date: 09/12/17 09/07/17 1410 <Electronically signed by Johnathan Batres MD> Date Johnathan Batres MD CC: Margaret Thomas DPM; Ihsan Pepe MD; Johnathan Batres MD BEDSIDE GLUCOSE Collected: 09/07/2017 Status: F Source: [place] 11:25 AM [facility] [place] TYPE CODE TESTS RESULT OUT OF REFERENCE UNITS RANGE LAB L501.080 70-110 mg/dL High BEDSIDE GLU 305 Result Comment: MANAGEMENT OF PATIENT CARE PER NURSING PROTOCOL Performed By: #### L501.080 #### [facility] Point of Care [address] [place] [address] BEDSIDE GLUCOSE Collected: 09/07/2017 Status: F Source: [place] 6:32 AM [facility] [place] TYPE CODE TESTS RESULT OUT OF REFERENCE UNITS RANGE LAB L501.080 70-110 mg/dL High BEDSIDE GLU 306 Result Comment: MANAGEMENT OF PATIENT CARE PER NURSING PROTOCOL Performed By: #### L501.080 #### [facility] Point of Care [address] [place] [address] BEDSIDE GLUCOSE Collected: 09/06/2017 Status: F Source: [place] 8:51 PM [facility] [place] [facility] TYPE CODE TESTS RESULT OUT OF REFERENCE UNITS RANGE LAB L501.080 70-110 mg/dL High BEDSIDE GLU 447 Result Comment: Dr Orders Followed MANAGEMENT OF PATIENT CARE PER NURSING PROTOCOL Performed By: #### L501.080 #### [facility] Point [facility] [address] [place] [address] BEDSIDE GLUCOSE Collected: 09/06/2017 Status: F Source: [place] 4:48 PM [facility] [place] TYPE CODE TESTS RESULT OUT OF REFERENCE UNITS RANGE LAB L501.080 70-110 mg/dL High BEDSIDE GLU 285 Result Comment: Dr Orders Followed MANAGEMENT OF PATIENT CARE PER NURSING PROTOCOL Performed By: #### L501.080 #### [facility] Point [facility] [address] [place] [address] BEDSIDE GLUCOSE Collected: 09/06/2017 Status: F Source: [place] 2:58 PM [facility] [place] TYPE CODE TESTS RESULT OUT OF REFERENCE UNITS RANGE LAB L501.080 70-110 mg/dL High BEDSIDE GLU 278 Result Comment: MANAGEMENT OF PATIENT CARE PER NURSING PROTOCOL Performed By: #### L501.080 #### [facility] Point [facility] [address] [place], [place] [id number] BEDSIDE GLUCOSE Collected: 09/06/2017 Status: F Source: [place] 11:12 AM [facility] [place] [facility] TYPE CODE TESTS RESULT OUT OF REFERENCE UNITS RANGE LAB L501.080 70-110 mg/dL High BEDSIDE GLU 343 Result Comment: MANAGEMENT OF PATIENT CARE PER NURSING PROTOCOL Performed By: #### L501.080 #### [facility] [address] [place], [place] [address] VANCOMYCIN, TROUGH Collected: 09/06/2017 Status: F Source: [place] LEVEL 9:25 AM [facility] [place] [facility] Order Comment: Time Medication is to be Given? 1000 TYPE CODE TESTS RESULT OUT OF REFERENCE UNITS RANGE LAB L501.8820 5.0-15.0 ug/mL High VANCO, TROUGH 17.4 Result Comment: VANCOMYCIN STANDARED DRUG THERAPY TROUGH LEVEL: 5.0 - 15.0 mg/L VANCOMYCIN HIGH INTENSITY THERAPY TROUGH LEVEL: 15.0 - 20.0 mg/L High Intensity therapy recommended for serious life threatening infections include: - Meningitis -Endocarditis -Pneumonia (Ventilator/Healtcare Associated) -Sepsis PLEASE CONTACT PHARMACY SERVICES (#[id number]) FOR INTERPRETATION OF RESULTS. Performed By: #### L501.8820 #### [facility] [address] [facility] [address] BEDSIDE GLUCOSE Collected: 09/06/2017 Status: F Source: [place] 6:44 AM [facility] [place] TYPE CODE TESTS RESULT OUT OF REFERENCE UNITS RANGE LAB L501.080 70-110 mg/dL High BEDSIDE GLU 274 Result Comment: MANAGEMENT OF PATIENT CARE PER NURSING PROTOCOL Performed By: #### L501.080 #### [facility] Point [facility] [address] [place], [place] [address] BEDSIDE GLUCOSE Collected: 09/06/2017 Status: F Source: [place] 1:03 AM [facility] [place] [facility] TYPE CODE TESTS RESULT OUT OF REFERENCE UNITS RANGE LAB L501.080 70-110 mg/dL High BEDSIDE GLU 376 Result Comment: MANAGEMENT OF PATIENT CARE PER NURSING PROTOCOL Performed By: #### L501.080 #### [facility] Point [facility] [address] [place] [address] BEDSIDE GLUCOSE Collected: 09/05/2017 Status: F Source: [place] 11:49 PM [facility] [place] [facility] TYPE CODE TESTS RESULT OUT OF REFERENCE UNITS RANGE LAB L501.080 70-110 mg/dL High BEDSIDE GLU 406 Result Comment: MANAGEMENT OF PATIENT CARE PER NURSING PROTOCOL Performed By: #### L501.080 #### [facility] [address] [place] [address] BEDSIDE GLUCOSE Collected: 09/05/2017 Status: F Source: [place] 8:46 PM [facility] [place] [facility] TYPE CODE TESTS RESULT OUT OF REFERENCE UNITS RANGE LAB L501.080 70-110 mg/dL High BEDSIDE GLU 381 Result Comment: MANAGEMENT OF PATIENT CARE PER NURSING PROTOCOL Performed By: #### L501.080 #### [facility] Point [facility] [address] [place] [address] BEDSIDE GLUCOSE Collected: 09/05/2017 Status: F Source: [place] 4:53 PM [facility] [place] [facility] TYPE CODE TESTS RESULT OUT OF REFERENCE UNITS RANGE LAB L501.080 70-110 mg/dL High alert BEDSIDE GLU 452 Result Comment: Dr Rees Followed MANAGEMENT OF PATIENT CARE PER NURSING PROTOCOL Performed By: #### L501.080 #### [facility] [address] [place] [address] GLUCOSE Collected: 09/05/2017 Status: F Source: [place] 12:39 PM [facility] [place] [facility] Order Comment: Order Date: 09/05/17 TYPE CODE TESTS RESULT OUT OF RANGE REFERENCE UNITS LAB L501.0100 74-106 mg/dL High alert GLU 526 Result Comment: Critical Result(s) Called at: 12:43:19 09/05/2017 by: Arianne Webber Glucose result greater than or equal to 200 mg/dL suggests DIABETES MELLITUS per A.D.A. criteria. Please note revised GLUCOSE reference range effective 2017. Performed By: #### L501.0100 #### [facility] [address] [place], [address] BEDSIDE GLUCOSE Collected: 09/05/2017 Status: F Source: [place] 11:44 AM [facility] [place] [facility] TYPE CODE TESTS RESULT OUT OF REFERENCE UNITS RANGE LAB L501.080 70-110 mg/dL High alert BEDSIDE GLU 500 Result Comment: Dr Rees Followed MANAGEMENT OF PATIENT CARE PER NURSING PROTOCOL Performed By: #### L501.080 #### [facility] [address] [place] [address] ABD DECUB AND/OR Observed: 09/05/2017 Status: F Source: [place] ERECT(PORTABL 10:49 AM [facility] [place] Imaging Services [address] [place] [address] Abd Decub and/or Erect(Portabl MR#: [id number] Acct: [id number] Name: FADI ALCANTAR Rep #: [id number] : 1950 M 67 From: Ihsan Hawk MD PCP: Johnathan Batres MD, Chi Status: ADM IN Study: Abd Decub and/or Erect(Portabl Date of Exam: 09/05/17 Exam# [id number] Ordering Dr: Johnathan Batres MD STUDY: X-RAY - ABDOMEN/PELVIS REASON FOR EXAM: Male, 67 years old. Abdominal distention. TECHNIQUE: AP upright and supine abdomen/pelvis imaging, 4 total views. COMPARISON: The abdomen study 08/10/2017 FINDINGS: Unremarkable visualized lower incompletely seen lung bases. Incompletely seen oval small likely cardiac monitoring device overlies the heart shadow. Air and fecal material outlines visualized portions of the colon without air-filled small bowel loop, abnormal air-fluid levels or findings of free peritoneal air noted including subdiaphragmatic region. No abnormal abdomen calcification seen, abdomen is partially obscured by bowel contents. Cholecystomy clips noted, unchanged. The visualized liver, spleen and kidneys are grossly normal in size and morphology. Normal soft tissue structures. Visualized osseous structures appear intact. Fairly severe arterial calcifications noted. RAD/Abd Decub and/or Erect(Portabl IMPRESSION: Nonacute x-ray examination of the abdomen and pelvis. Nonobstructed nonspecific visualized intestinal gas pattern. Fairly severe arteriosclerosis. Electronically Signed: Ihsan Hawk, at 16:21 EDT Tel , Service support , CC: Johnathan Batres MD Inbound Sales Manager: Signed BEDSIDE GLUCOSE Collected: 09/05/2017 Status: F Source: [place] 10:38 AM [facility] [place] [facility] TYPE CODE TESTS RESULT OUT OF REFERENCE UNITS RANGE LAB L501.080 70-110 mg/dL High alert BEDSIDE GLU > 500 Result Comment: MANAGEMENT OF PATIENT CARE PER NURSING PROTOCOL Performed By: #### L501.080 #### [facility] Point of Care [address] [place] [address] BEDSIDE GLUCOSE Collected: 09/05/2017 Status: F Source: [place] 6:39 AM [facility] [place] [facility] TYPE CODE TESTS RESULT OUT OF REFERENCE UNITS RANGE LAB L501.080 70-110 mg/dL High BEDSIDE GLU 360 Result Comment: MANAGEMENT OF PATIENT CARE PER NURSING PROTOCOL Performed By: #### L501.080 #### [facility] Point [facility] [address] [place] [address] BEDSIDE GLUCOSE Collected: 09/04/2017 Status: F Source: [place] 9:09 PM [facility] [place] [facility] TYPE CODE TESTS RESULT OUT OF REFERENCE UNITS RANGE LAB L501.080 70-110 mg/dL High BEDSIDE GLU 248 Result Comment: Dr Orders Followed MANAGEMENT OF PATIENT CARE PER NURSING PROTOCOL Performed By: #### L501.080 #### [facility] Point of Care [address] [place] [address] BEDSIDE GLUCOSE Collected: 09/04/2017 Status: F Source: [place] 4:45 PM [facility] [place] [facility] TYPE CODE TESTS RESULT OUT OF REFERENCE UNITS RANGE LAB L501.080 70-110 mg/dL High BEDSIDE GLU 289 Result Comment: MANAGEMENT OF PATIENT CARE PER NURSING PROTOCOL Performed By: #### L501.080 #### [facility] Point [facility] [address] [place] [address] BEDSIDE GLUCOSE Collected: 09/04/2017 Status: F Source: [place] 11:12 AM [facility] [place] [facility] TYPE CODE TESTS RESULT OUT OF REFERENCE UNITS RANGE LAB L501.080 70-110 mg/dL High BEDSIDE GLU 378 Result Comment: MANAGEMENT OF PATIENT CARE PER NURSING PROTOCOL Performed By: #### L501.080 #### [facility] Point [facility] [address] [place] [address] BEDSIDE GLUCOSE Collected: 09/04/2017 Status: F Source: [place] 6:17 AM [facility] [place] [facility] TYPE CODE TESTS RESULT OUT OF REFERENCE UNITS RANGE LAB L501.080 70-110 mg/dL High BEDSIDE GLU 303 Result Comment: MANAGEMENT OF PATIENT CARE PER NURSING PROTOCOL Performed By: #### L501.080 #### [facility] Point [facility] [address] [place] [address] BEDSIDE GLUCOSE Collected: 09/03/2017 Status: F Source: [place] 8:46 PM [facility] [place] [facility] TYPE CODE TESTS RESULT OUT OF REFERENCE UNITS RANGE LAB L501.080 70-110 mg/dL High BEDSIDE GLU 348 Result Comment: Dr Orders Followed MANAGEMENT OF PATIENT CARE PER NURSING PROTOCOL Performed By: #### L501.080 #### [facility] [address] [place] [address] BEDSIDE GLUCOSE Collected: 09/03/2017 Status: F Source: [place] 4:48 PM [facility] [place] [facility] TYPE CODE TESTS RESULT OUT OF REFERENCE UNITS RANGE LAB L501.080 70-110 mg/dL High BEDSIDE GLU 352 Result Comment: MANAGEMENT OF PATIENT CARE PER NURSING PROTOCOL Performed By: #### L501.080 #### [facility] [address] [place] [address] BEDSIDE GLUCOSE Collected: 09/03/2017 Status: F Source: [place] 10:55 AM [facility] [place] [facility] TYPE CODE TESTS RESULT OUT OF REFERENCE UNITS RANGE LAB L501.080 70-110 mg/dL High BEDSIDE GLU 349 Result Comment: MANAGEMENT OF PATIENT CARE PER NURSING PROTOCOL Performed By: #### L501.080 #### [facility] [address] [place] [address] BEDSIDE GLUCOSE Collected: 09/03/2017 Status: F Source: [place] 6:25 AM [facility] [place] [facility] TYPE CODE TESTS RESULT OUT OF REFERENCE UNITS RANGE LAB L501.080 70-110 mg/dL High BEDSIDE GLU 321 Result Comment: MANAGEMENT OF PATIENT CARE PER NURSING PROTOCOL Performed By: #### L501.080 #### [facility] [address] [place] [address] BEDSIDE GLUCOSE Collected: 09/02/2017 Status: F Source: [place] 8:51 PM [facility] [place] [facility] TYPE CODE TESTS RESULT OUT OF REFERENCE UNITS RANGE LAB L501.080 70-110 mg/dL High BEDSIDE GLU 215 Result Comment: Dr Orders Followed MANAGEMENT OF PATIENT CARE PER NURSING PROTOCOL Performed By: #### L501.080 #### [facility] [address] [place] [address] BEDSIDE GLUCOSE Collected: 09/02/2017 Status: F Source: [place] 5:06 PM [facility] [place] [facility] TYPE CODE TESTS RESULT OUT OF REFERENCE UNITS RANGE LAB L501.080 70-110 mg/dL High BEDSIDE GLU 200 Result Comment: Dr Orders Followed MANAGEMENT OF PATIENT CARE PER NURSING PROTOCOL Performed By: #### L501.080 #### [facility] [address] [place] [address] BEDSIDE GLUCOSE Collected: 09/02/2017 Status: F Source: [place] 11:02 AM [facility] [place] [facility] TYPE CODE TESTS RESULT OUT OF REFERENCE UNITS RANGE LAB L501.080 70-110 mg/dL High BEDSIDE GLU 220 Result Comment: MANAGEMENT OF PATIENT CARE PER NURSING PROTOCOL Performed By: #### L501.080 #### [facility] [address] [place] [address] BEDSIDE GLUCOSE Collected: 09/02/2017 Status: F Source: [place] 6:54 AM [facility] [place] [facility] TYPE CODE TESTS RESULT OUT OF REFERENCE UNITS RANGE LAB L501.080 70-110 mg/dL High BEDSIDE GLU 212 Result Comment: MANAGEMENT OF PATIENT CARE PER NURSING PROTOCOL Performed By: #### L501.080 #### [facility] Point [facility] [address] [place] [address] BEDSIDE GLUCOSE Collected: 09/02/2017 Status: F Source: [place] 3:52 AM [facility] [place] [facility] TYPE CODE TESTS RESULT OUT OF REFERENCE UNITS RANGE LAB L501.080 70-110 mg/dL High BEDSIDE GLU 243 Result Comment: MANAGEMENT OF PATIENT CARE PER NURSING PROTOCOL Performed By: #### L501.080 #### [facility] Point [facility] [address] [place] [address] BEDSIDE GLUCOSE Collected: 09/01/2017 Status: F Source: [place] 8:59 PM [facility] [place] [facility] TYPE CODE TESTS RESULT OUT OF REFERENCE UNITS RANGE LAB L501.080 70-110 mg/dL High BEDSIDE GLU 414 Result Comment: Dr Orders Followed MANAGEMENT OF PATIENT CARE PER NURSING PROTOCOL Performed By: #### L501.080 #### [facility] [address] [place] [address] BEDSIDE GLUCOSE Collected: 09/01/2017 Status: F Source: [place] 6:55 PM [facility] [place] [facility] TYPE CODE TESTS RESULT OUT OF REFERENCE UNITS RANGE LAB L501.080 70-110 mg/dL High BEDSIDE GLU 436 Result Comment: Repeat Test MANAGEMENT OF PATIENT CARE PER NURSING PROTOCOL Performed By: #### L501.080 #### [facility] [address] [place] [address] BEDSIDE GLUCOSE Collected: 09/01/2017 Status: F Source: [place] 5:41 PM [facility] [place] [facility] TYPE CODE TESTS RESULT OUT OF REFERENCE UNITS RANGE LAB L501.080 70-110 mg/dL High BEDSIDE GLU 414 Result Comment: MANAGEMENT OF PATIENT CARE PER NURSING PROTOCOL Performed By: #### L501.080 #### [facility] [address] [place] [address] GLUCOSE Collected: 09/01/2017 Status: F Source: [place] 3:34 PM [facility] [place] [facility] TYPE CODE TESTS RESULT OUT OF RANGE REFERENCE UNITS LAB L501.0100 74-106 mg/dL High alert GLU 474 Result Comment: Critical Result(s) Called at: 15:03:22 09/01/2017 by: Kayli Blankenship Glucose result greater than or equal to 200 mg/dL suggests DIABETES MELLITUS per A.D.A. criteria. Please note revised GLUCOSE reference range effective 2017. Performed By: #### L501.0100 #### [facility] [address] [place], [address] BEDSIDE GLUCOSE Collected: 09/01/2017 Status: F Source: [place] 2:45 PM [facility] [place] [facility] TYPE CODE TESTS RESULT OUT OF REFERENCE UNITS RANGE LAB L501.080 70-110 mg/dL High alert BEDSIDE GLU > 500 Result Comment: Dr Orders Followed MANAGEMENT OF PATIENT CARE PER NURSING PROTOCOL Performed By: #### L501.080 #### [facility] [address] [place] [address] BEDSIDE GLUCOSE Collected: 09/01/2017 Status: F Source: [place] 2:05 PM [facility] [place] [facility] TYPE CODE TESTS RESULT OUT OF REFERENCE UNITS RANGE LAB L501.080 70-110 mg/dL High alert BEDSIDE GLU > 500 Result Comment: Dr Orders Followed MANAGEMENT OF PATIENT CARE PER NURSING PROTOCOL Performed By: #### L501.080 #### [facility] [address] [place] [address] GLUCOSE Collected: 09/01/2017 Status: F Source: [place] 11:25 AM [facility] [place] [facility] TYPE CODE TESTS RESULT OUT OF RANGE REFERENCE UNITS LAB L501.0100 74-106 mg/dL High alert GLU 642 Result Comment: Critical Result(s) Called at: 10:48:06 09/01/2017 by: Papa Blankenship RN Glucose result greater than or equal to 200 mg/dL suggests DIABETES MELLITUS per A.D.A. criteria. Please note revised GLUCOSE reference range effective 2017. Performed By: #### L501.0100 #### [facility] [address] [place], [place], [address] BEDSIDE GLUCOSE Collected: 09/01/2017 Status: F Source: [place] 11:13 AM [facility] [place] [facility] TYPE CODE TESTS RESULT OUT OF REFERENCE UNITS RANGE LAB L501.080 70-110 mg/dL High alert BEDSIDE GLU > 500 Result Comment: Dr Orders Followed MANAGEMENT OF PATIENT CARE PER NURSING PROTOCOL Performed By: #### L501.080 #### [facility] [address] [place] [address] BEDSIDE GLUCOSE Collected: 09/01/2017 Status: F Source: [place] 6:49 AM [facility] [place] [facility] TYPE CODE TESTS RESULT OUT OF REFERENCE UNITS RANGE LAB L501.080 70-110 mg/dL High alert BEDSIDE GLU > 500 Result Comment: MANAGEMENT OF PATIENT CARE PER NURSING PROTOCOL Performed By: #### L501.080 #### [facility] [address] [place] [address] BEDSIDE GLUCOSE Collected: 09/01/2017 Status: F Source: [place] 6:42 AM [facility] [place] [facility] TYPE CODE TESTS RESULT OUT OF REFERENCE UNITS RANGE LAB L501.080 70-110 mg/dL High alert BEDSIDE GLU > 500 Result Comment: MANAGEMENT OF PATIENT CARE PER NURSING PROTOCOL Performed By: #### L501.080 #### [facility] [address] [place] [address] CBC W/DIFF, AUTOMATED Collected: 09/01/2017 Status: F Source: [place] 4:20 AM [facility] [place] [facility] Order Comment: SPECIMEN OBTAINED FROM LINE DRAW TYPE CODE TESTS RESULT OUT OF RANGE REFERENCE UNITS LAB L100.1000 4.4-11.0 K/mm3 Normal WBC 9.3 LAB L100.1200 4.6-6.2 M/mm3 Low RBC 3.86 LAB L100.1300 13.0-16.5 g/dl Low HGB 11.5 LAB L100.1400 40-54 % Low HCT 35.1 LAB L100.1500 80-94 fL Normal MCV 90.9 LAB L100.1600 27.0-32.0 pg Normal MCH 29.8 LAB L100.1700 32-36 g/gl Normal MCHC 32.8 LAB L100.1810 11.6-14.6 % Normal RDW CV 14.5 LAB L100.1820 35.1-43.9 fl High RDW SD 47.3 LAB L100.1900 150-450 K/mm3 Normal PLT 265 LAB L100.2000 6.2-12.0 fl Normal MPV 10.3 LAB L100.2100 47-70 % Normal NEUT% 67.3 LAB L100.2200 19-41 % Low LY% 11.3 LAB L100.2300 0-10 % High MONO% 10.8 LAB L100.2400 0-5 % High EO% 9.6 LAB L100.2500 0-1 % Normal BASO% 0.8 LAB L100.2550 0.0-0.9 % Normal IM GRAN % 0.200 Result Comment: IG% - Immature Granulocytes (promyelocytes, myelocytes and metamyelocytes) > 1% indicates that a LEFT SHIFT is Present. LAB L100.2620 2.0-7.7 X10 3/uL Normal Absolute Neut 6.2 LAB L100.2720 0.83-4.51 X10 3/ul Normal Absolute Lymph 1.05 Performed By: #### L100.0100 #### [facility] [address] [place] [address]. [place], [place], [id number] BASIC METABOLIC Collected: 09/01/2017 Status: F Source: [place] PROFILE (BMP) 4:20 AM [facility] [place] [facility] Order Comment: SPECIMEN OBTAINED FROM LINE DRAW TYPE CODE TESTS RESULT OUT OF RANGE REFERENCE UNITS LAB L501.0100 74-106 mg/dL High alert GLU 469 Result Comment: Glucose result greater than or equal to 200 mg/dL suggests DIABETES MELLITUS per A.D.A. criteria. Please note revised GLUCOSE reference range effective 2017. LAB L501.1000 7-18 mg/dL High BUN 34 LAB L501.1100 0.70-1.30 mg/dL High CREAT,SERUM 1.39 Result Comment: The validity of the calculated GFR AND GFRAA in patients over 70 years has not been determined. Clinical correlation is essential. LAB L501.1110 >60 mL/min Low EST GFR 54 Result Comment: Non- GFR Calc LAB L501.1115 >60 mL/min Normal EST GFR - AA 66 Result Comment: GFR Calc LAB L501.1255 ml/min Normal Estimated CRCL 56.43 LAB L501.1300 10-20 RATIO High BUN/CRE 24.5 LAB L501.2200 8.5-10 mg/dL Low .1 CA 8.0 LAB L501.5300 136-14 mmol/L Low 5 NA 133 Result Comment: Critical Result(s) Called at: 04:14:08 09/01/2017 by: Bart Loya to janessahriner LAB L501.5600 3.5-5.1 mmol/L Normal K 4.4 LAB L501.5900 98-107 mmol/L Low CL 96 LAB L501.6100 21.0-32.0 mmol/L Normal CO2 30.0 LAB L501.6200 5-15 Normal 7 GAP Performed By: #### L500.2500 #### [facility] [address] [place], [address] BEDSIDE GLUCOSE Collected: 08/31/2017 Status: F Source: [place] 9:21 PM [facility] [place] [facility] TYPE CODE TESTS RESULT OUT OF REFERENCE UNITS RANGE LAB L501.080 70-110 mg/dL High BEDSIDE GLU 258 Result Comment: MANAGEMENT OF PATIENT CARE PER NURSING PROTOCOL Performed By: #### L501.080 #### [facility] [address] [place] [address] BEDSIDE GLUCOSE Collected: 08/31/2017 Status: F Source: [place] 4:39 PM [facility] [place] TYPE CODE TESTS RESULT OUT OF REFERENCE UNITS RANGE LAB L501.080 70-110 mg/dL High BEDSIDE GLU 310 Result Comment: MANAGEMENT OF PATIENT CARE PER NURSING PROTOCOL Performed By: #### L501.080 #### [facility] [address] [place] [address] BEDSIDE GLUCOSE Collected: 08/31/2017 Status: F Source: [place] 11:48 AM [facility] [place] [facility] TYPE CODE TESTS RESULT OUT OF REFERENCE UNITS RANGE LAB L501.080 70-110 mg/dL High BEDSIDE GLU 371 Result Comment: MANAGEMENT OF PATIENT CARE PER NURSING PROTOCOL Performed By: #### L501.080 #### [facility] [address] [place] [address] BEDSIDE GLUCOSE Collected: 08/31/2017 Status: F Source: [place] 6:58 AM [facility] [place] [facility] TYPE CODE TESTS RESULT OUT OF REFERENCE UNITS RANGE LAB L501.080 70-110 mg/dL High BEDSIDE GLU 190 Result Comment: MANAGEMENT OF PATIENT CARE PER NURSING PROTOCOL Performed By: #### L501.080 #### [facility] [address] [place] [address] BEDSIDE GLUCOSE Collected: 08/30/2017 Status: F Source: [place] 8:42 PM [facility] [place] TYPE CODE TESTS RESULT OUT OF REFERENCE UNITS RANGE LAB L501.080 70-110 mg/dL High BEDSIDE GLU 309 Result Comment: MANAGEMENT OF PATIENT CARE PER NURSING PROTOCOL Performed By: #### L501.080 #### [facility] Point of [facility] [address] [place] [address] BEDSIDE GLUCOSE Collected: 08/30/2017 Status: F Source: [place] 4:57 PM [facility] [place] TYPE CODE TESTS RESULT OUT OF REFERENCE UNITS RANGE LAB L501.080 70-110 mg/dL High BEDSIDE GLU 286 Result Comment: Dr Rees Followed MANAGEMENT OF PATIENT CARE PER NURSING PROTOCOL Performed By: #### L501.080 #### [facility] Point of [facility] [address] [place] [address] BEDSIDE GLUCOSE Collected: 08/30/2017 Status: F Source: [place] 11:07 AM [facility] [place] TYPE CODE TESTS RESULT OUT OF REFERENCE UNITS RANGE LAB L501.080 70-110 mg/dL High BEDSIDE GLU 329 Result Comment: MANAGEMENT OF PATIENT CARE PER NURSING PROTOCOL Performed By: #### L501.080 #### [facility] Point of Care [address] [place] [address] BEDSIDE GLUCOSE Collected: 08/30/2017 Status: F Source: [place] 9:55 AM [facility] [place] TYPE CODE TESTS RESULT OUT OF REFERENCE UNITS RANGE LAB L501.080 70-110 mg/dL High BEDSIDE GLU 377 Result Comment: MANAGEMENT OF PATIENT CARE PER NURSING PROTOCOL Performed By: #### L501.080 #### [facility] Point of [facility] [address] [place] [address] VANCOMYCIN, TROUGH Collected: 08/30/2017 Status: F Source: [place] LEVEL 7:25 AM [facility] [place] Order Comment: Time Medication is to be Given? 0800 TYPE CODE TESTS RESULT OUT OF REFERENCE UNITS RANGE LAB L501.8820 5.0-15.0 ug/mL High VANCO, TROUGH 19.0 Result Comment: VANCOMYCIN STANDARED DRUG THERAPY TROUGH LEVEL: 5.0 - 15.0 mg/L VANCOMYCIN HIGH INTENSITY THERAPY TROUGH LEVEL: 15.0 - 20.0 mg/L High Intensity therapy recommended for serious life threatening infections include: - Meningitis -Endocarditis -Pneumonia (Ventilator/Healtcare Associated) -Sepsis PLEASE CONTACT PHARMACY SERVICES (#[id number]) FOR INTERPRETATION OF RESULTS. Performed By: #### L501.8820 #### [facility] [address] [place], [place], [address] BEDSIDE GLUCOSE Collected: 08/30/2017 Status: F Source: [place] 6:38 AM [facility] [place] TYPE CODE TESTS RESULT OUT OF REFERENCE UNITS RANGE LAB L501.080 70-110 mg/dL High BEDSIDE GLU 285 Result Comment: MANAGEMENT OF PATIENT CARE PER NURSING PROTOCOL Performed By: #### L501.080 #### [facility] Point of [facility] [address] [place] [address] BEDSIDE GLUCOSE Collected: 08/30/2017 Status: F Source: [place] 12:39 AM [facility] [place] TYPE CODE TESTS RESULT OUT OF REFERENCE UNITS RANGE LAB L501.080 70-110 mg/dL High BEDSIDE GLU 318 Result Comment: MANAGEMENT OF PATIENT CARE PER NURSING PROTOCOL Performed By: #### L501.080 #### [facility] Point of [facility] [address] [place] [address] BEDSIDE GLUCOSE Collected: 08/29/2017 Status: F Source: [place] 8:12 PM [facility] [place] TYPE CODE TESTS RESULT OUT OF REFERENCE UNITS RANGE LAB L501.080 70-110 mg/dL High BEDSIDE GLU 211 Result Comment: Dr Rees Followed MANAGEMENT OF PATIENT CARE PER NURSING PROTOCOL Performed By: #### L501.080 #### [facility] Point of [facility] [address] [place] [address] BEDSIDE GLUCOSE Collected: 08/29/2017 Status: F Source: [place] 4:56 PM [facility] [place] TYPE CODE TESTS RESULT OUT OF REFERENCE UNITS RANGE LAB L501.080 70-110 mg/dL High BEDSIDE GLU 339 Result Comment: MANAGEMENT OF PATIENT CARE PER NURSING PROTOCOL Performed By: #### L501.080 #### [facility] Point of [facility] [address] [place] [address] BEDSIDE GLUCOSE Collected: 08/29/2017 Status: F Source: [place] 11:11 AM [facility] [place] TYPE CODE TESTS RESULT OUT OF REFERENCE UNITS RANGE LAB L501.080 70-110 mg/dL High BEDSIDE GLU 249 Result Comment: MANAGEMENT OF PATIENT CARE PER NURSING PROTOCOL Performed By: #### L501.080 #### [facility] Point of [facility] [address] [place] [address] BEDSIDE GLUCOSE Collected: 08/29/2017 Status: F Source: [place] 10:03 AM [facility] [place] TYPE CODE TESTS RESULT OUT OF REFERENCE UNITS RANGE LAB L501.080 70-110 mg/dL High BEDSIDE GLU 207 Result Comment: MANAGEMENT OF PATIENT CARE PER NURSING PROTOCOL Performed By: #### L501.080 #### [facility] Point [facility] [address] [place] [address] BEDSIDE GLUCOSE Collected: 08/29/2017 Status: F Source: [place] 6:59 AM [facility] [place] TYPE CODE TESTS RESULT OUT OF REFERENCE UNITS RANGE LAB L501.080 70-110 mg/dL High BEDSIDE GLU 220 Result Comment: MANAGEMENT OF PATIENT CARE PER NURSING PROTOCOL Performed By: #### L501.080 #### [facility] Point of [facility] [address] [place] [address] BEDSIDE GLUCOSE Collected: 08/28/2017 Status: F Source: [place] 8:51 PM [facility] [place] TYPE CODE TESTS RESULT OUT OF REFERENCE UNITS RANGE LAB L501.080 70-110 mg/dL High BEDSIDE GLU 203 Result Comment: MANAGEMENT OF PATIENT CARE PER NURSING PROTOCOL Performed By: #### L501.080 #### [facility] Point of [facility] [address] [place] [address] BEDSIDE GLUCOSE Collected: 08/28/2017 Status: F Source: [place] 4:48 PM [facility] [place] TYPE CODE TESTS RESULT OUT OF REFERENCE UNITS RANGE LAB L501.080 70-110 mg/dL High BEDSIDE GLU 168 Result Comment: MANAGEMENT OF PATIENT CARE PER NURSING PROTOCOL Performed By: #### L501.080 #### [facility] Point of [facility] [address] [place] [address] BEDSIDE GLUCOSE Collected: 08/28/2017 Status: F Source: [place] 1:00 PM [facility] [place] TYPE CODE TESTS RESULT OUT OF REFERENCE UNITS RANGE LAB L501.080 70-110 mg/dL High BEDSIDE GLU 264 Result Comment: MANAGEMENT OF PATIENT CARE PER NURSING PROTOCOL Performed By: #### L501.080 #### [facility] Point [facility] [address] [place] [address] BEDSIDE GLUCOSE Collected: 08/28/2017 Status: F Source: [place] 11:11 AM [facility] [place] TYPE CODE TESTS RESULT OUT OF REFERENCE UNITS RANGE LAB L501.080 70-110 mg/dL High BEDSIDE GLU 262 Result Comment: MANAGEMENT OF PATIENT CARE PER NURSING PROTOCOL Performed By: #### L501.080 #### [facility] Point [facility] [address] [place] [address] BEDSIDE GLUCOSE Collected: 08/28/2017 Status: F Source: [place] 9:30 AM [facility] [place] TYPE CODE TESTS RESULT OUT OF REFERENCE UNITS RANGE LAB L501.080 70-110 mg/dL High BEDSIDE GLU 308 Result Comment: MANAGEMENT OF PATIENT CARE PER NURSING PROTOCOL Performed By: #### L501.080 #### [facility] Point [facility] [address] [place] [address] BEDSIDE GLUCOSE Collected: 08/28/2017 Status: F Source: [place] 6:52 AM [facility] [place] TYPE CODE TESTS RESULT OUT OF REFERENCE UNITS RANGE LAB L501.080 70-110 mg/dL High BEDSIDE GLU 166 Result Comment: MANAGEMENT OF PATIENT CARE PER NURSING PROTOCOL Performed By: #### L501.080 #### [facility] Point [facility] [address] [place] [address] BEDSIDE GLUCOSE Collected: 08/28/2017 Status: F Source: [place] 1:16 AM [facility] [place] [facility] TYPE CODE TESTS RESULT OUT OF REFERENCE UNITS RANGE LAB L501.080 70-110 mg/dL High BEDSIDE GLU 234 Result Comment: MANAGEMENT OF PATIENT CARE PER NURSING PROTOCOL Performed By: #### L501.080 #### [facility] Point [facility] [address] [place] [address] BEDSIDE GLUCOSE Collected: 08/27/2017 Status: F Source: [place] 8:59 PM [facility] [place] TYPE CODE TESTS RESULT OUT OF REFERENCE UNITS RANGE LAB L501.080 70-110 mg/dL High BEDSIDE GLU 157 Result Comment: Dr Orders Followed MANAGEMENT OF PATIENT CARE PER NURSING PROTOCOL Performed By: #### L501.080 #### [facility] Point [facility] [address] [place] [address] BEDSIDE GLUCOSE Collected: 08/27/2017 Status: F Source: [place] 4:46 PM [facility] [place] TYPE CODE TESTS RESULT OUT OF REFERENCE UNITS RANGE LAB L501.080 70-110 mg/dL High BEDSIDE GLU 403 Result Comment: MANAGEMENT OF PATIENT CARE PER NURSING PROTOCOL Performed By: #### L501.080 #### [facility] Point [facility] [address] [place] [address] BEDSIDE GLUCOSE Collected: 08/27/2017 Status: F Source: [place] 11:20 AM [facility] [place] TYPE CODE TESTS RESULT OUT OF REFERENCE UNITS RANGE LAB L501.080 70-110 mg/dL High alert BEDSIDE GLU 498 Result Comment: Dr Orders Followed MANAGEMENT OF PATIENT CARE PER NURSING PROTOCOL Performed By: #### L501.080 #### [facility] Point [facility] [address] [place] [address] BEDSIDE GLUCOSE Collected: 08/27/2017 Status: F Source: [place] 6:40 AM [facility] [place] [facility] TYPE CODE TESTS RESULT OUT OF REFERENCE UNITS RANGE LAB L501.080 70-110 mg/dL High BEDSIDE GLU 414 Result Comment: MANAGEMENT OF PATIENT CARE PER NURSING PROTOCOL Performed By: #### L501.080 #### [facility] Point [facility] [address] [place] [address] BEDSIDE GLUCOSE Collected: 08/26/2017 Status: F Source: [place] 9:07 PM [facility] [place] [facility] TYPE CODE TESTS RESULT OUT OF REFERENCE UNITS RANGE LAB L501.080 70-110 mg/dL High BEDSIDE GLU 212 Result Comment: MANAGEMENT OF PATIENT CARE PER NURSING PROTOCOL Performed By: #### L501.080 #### [facility] Point [facility] [address] [place] [address] BEDSIDE GLUCOSE Collected: 08/26/2017 Status: F Source: [place] 6:35 PM [facility] [place] [facility] TYPE CODE TESTS RESULT OUT OF REFERENCE UNITS RANGE LAB L501.080 70-110 mg/dL High BEDSIDE GLU 121 Result Comment: MANAGEMENT OF PATIENT CARE PER NURSING PROTOCOL Performed By: #### L501.080 #### [facility] Point [facility] [address] [place] [address] BEDSIDE GLUCOSE Collected: 08/26/2017 Status: F Source: [place] 4:38 PM [facility] [place] [facility] TYPE CODE TESTS RESULT OUT OF RANGE REFERENCE UNITS LAB L501.080 70-110 mg/dL Normal BEDSIDE GLU 74 Result Comment: MANAGEMENT OF PATIENT CARE PER NURSING PROTOCOL Performed By: #### L501.080 #### [facility] Point [facility] [address] [place] [address] BEDSIDE GLUCOSE Collected: 08/26/2017 Status: F Source: [place] 11:16 AM [facility] [place] [facility] TYPE CODE TESTS RESULT OUT OF REFERENCE UNITS RANGE LAB L501.080 70-110 mg/dL High BEDSIDE GLU 352 Result Comment: MANAGEMENT OF PATIENT CARE PER NURSING PROTOCOL Performed By: #### L501.080 #### [facility] [address] [place] [address] BEDSIDE GLUCOSE Collected: 08/26/2017 Status: F Source: [place] 6:54 AM [facility] [place] [facility] TYPE CODE TESTS RESULT OUT OF REFERENCE UNITS RANGE LAB L501.080 70-110 mg/dL High BEDSIDE GLU 283 Result Comment: MANAGEMENT OF PATIENT CARE PER NURSING PROTOCOL Performed By: #### L501.080 #### [facility] Point [facility] [address] [place] [address] BEDSIDE GLUCOSE Collected: 08/25/2017 Status: F Source: [place] 9:23 PM [facility] [place] [facility] TYPE CODE TESTS RESULT OUT OF REFERENCE UNITS RANGE LAB L501.080 70-110 mg/dL High BEDSIDE GLU 341 Result Comment: MANAGEMENT OF PATIENT CARE PER NURSING PROTOCOL Performed By: #### L501.080 #### [facility] [address] [place] [address] BEDSIDE GLUCOSE Collected: 08/25/2017 Status: F Source: [place] 5:04 PM [facility] [place] [facility] TYPE CODE TESTS RESULT OUT OF REFERENCE UNITS RANGE LAB L501.080 70-110 mg/dL High BEDSIDE GLU 356 Result Comment: MANAGEMENT OF PATIENT CARE PER NURSING PROTOCOL Performed By: #### L501.080 #### [facility] [address] [place] [address] BEDSIDE GLUCOSE Collected: 08/25/2017 Status: F Source: [place] 1:05 PM [facility] [place] [facility] TYPE CODE TESTS RESULT OUT OF REFERENCE UNITS RANGE LAB L501.080 70-110 mg/dL High BEDSIDE GLU 398 Result Comment: MANAGEMENT OF PATIENT CARE PER NURSING PROTOCOL Performed By: #### L501.080 #### [facility] Point [facility] [address] [place] [address] BEDSIDE GLUCOSE Collected: 08/25/2017 Status: F Source: [place] 11:25 AM [facility] [place] [facility] TYPE CODE TESTS RESULT OUT OF REFERENCE UNITS RANGE LAB L501.080 70-110 mg/dL High alert BEDSIDE GLU 470 Result Comment: Insulin Given MANAGEMENT OF PATIENT CARE PER NURSING PROTOCOL Performed By: #### L501.080 #### [facility] Point [facility] [address] [place] [address] BEDSIDE GLUCOSE Collected: 08/25/2017 Status: F Source: [place] 6:34 AM [facility] [place] [facility] TYPE CODE TESTS RESULT OUT OF REFERENCE UNITS RANGE LAB L501.080 70-110 mg/dL High BEDSIDE GLU 344 Result Comment: MANAGEMENT OF PATIENT CARE PER NURSING PROTOCOL Performed By: #### L501.080 #### [facility] [address] [place] [address] BASIC METABOLIC Collected: 08/25/2017 Status: F Source: [place] PROFILE (BMP) 5:20 AM [facility] [place] [facility] Order Comment: SPECIMEN OBTAINED FROM LINE DRAW TYPE CODE TESTS RESULT OUT OF RANGE REFERENCE UNITS LAB L501.0100 74-106 mg/dL High GLU 385 Result Comment: Glucose result greater than or equal to 200 mg/dL suggests DIABETES MELLITUS per A.D.A. criteria. Please note revised GLUCOSE reference range effective 2017. LAB L501.1000 7-18 mg/dL High BUN 26 LAB L501.1100 0.70-1.30 mg/dL Normal CREAT,SERUM 1.27 Result Comment: The validity of the calculated GFR AND GFRAA in patients over 70 years has not been determined. Clinical correlation is essential. LAB L501.1110 >60 mL/min Normal EST GFR 60 Result Comment: Non- GFR Calc LAB L501.1115 >60 mL/min Normal EST GFR - AA 73 Result Comment: GFR Calc LAB L501.1255 ml/min Normal Estimated CRCL 61.76 LAB L501.1300 10-20 RATIO High BUN/CRE 20.5 LAB L501.2200 8.5-10 mg/dL Low .1 CA 8.4 LAB L501.5300 136-14 mmol/L Low 5 NA 134 LAB L501.5600 3.5-5. mmol/L Normal 1 K 3.7 LAB L501.5900 98-107 mmol/L Low CL 94 LAB L501.6100 21.0-3 mmol/L High 2.0 CO2 34.0 LAB L501.6200 5-15 Normal GAP 6 Performed By: #### L500.2500 #### [facility] [address] [place], [address] CBC W/DIFF, AUTOMATED Collected: 08/25/2017 Status: F Source: [place] 5:20 AM [facility] [place] [facility] Order Comment: SPECIMEN OBTAINED FROM LINE DRAW TYPE CODE TESTS RESULT OUT OF RANGE REFERENCE UNITS LAB L100.1000 4.4-11.0 K/mm3 Normal WBC 7.9 LAB L100.1200 4.6-6.2 M/mm3 Low RBC 4.22 LAB L100.1300 13.0-16.5 g/dl Low HGB 12.3 LAB L100.1400 40-54 % Low HCT 38.5 LAB L100.1500 80-94 fL Normal MCV 91.2 LAB L100.1600 27.0-32.0 pg Normal MCH 29.1 LAB L100.1700 32-36 g/gl Low MCHC 31.9 LAB L100.1810 11.6-14.6 % High RDW CV 15.1 LAB L100.1820 35.1-43.9 fl High RDW SD 50.2 LAB L100.1900 150-450 K/mm3 Normal PLT 278 LAB L100.2000 6.2-12.0 fl Normal MPV 10.2 LAB L100.2100 47-70 % Normal NEUT% 66.9 LAB L100.2200 19-41 % Low LY% 9.9 LAB L100.2300 0-10 % Normal MONO% 10.0 LAB L100.2400 0-5 % High EO% 12.3 LAB L100.2500 0-1 % Normal BASO% 0.6 LAB L100.2550 0.0-0.9 % Normal IM GRAN % 0.300 Result Comment: IG% - Immature Granulocytes (promyelocytes, myelocytes and metamyelocytes) > 1% indicates that a LEFT SHIFT is Present. LAB L100.2620 2.0-7.7 X10 3/uL Normal Absolute Neut 5.3 LAB L100.2720 0.83-4.51 X10 3/ul Low Absolute Lymph 0.78 Performed By: #### L100.0100 #### [facility] [address] [place], [address] BEDSIDE GLUCOSE Collected: 08/24/2017 Status: F Source: [place] 8:35 PM [facility] [place] TYPE CODE TESTS RESULT OUT OF REFERENCE UNITS RANGE LAB L501.080 70-110 mg/dL High BEDSIDE GLU 299 Result Comment: MANAGEMENT OF PATIENT CARE PER NURSING PROTOCOL Performed By: #### L501.080 #### [facility] Point [facility] [address] [place] [address] BEDSIDE GLUCOSE Collected: 08/24/2017 Status: F Source: [place] 4:58 PM [facility] [place] [facility] TYPE CODE TESTS RESULT OUT OF REFERENCE UNITS RANGE LAB L501.080 70-110 mg/dL High BEDSIDE GLU 120 Result Comment: Dr Orders Followed MANAGEMENT OF PATIENT CARE PER NURSING PROTOCOL Performed By: #### L501.080 #### [facility] [address] [place] [address] BEDSIDE GLUCOSE Collected: 08/24/2017 Status: F Source: [place] 11:37 AM [facility] [place] [facility] TYPE CODE TESTS RESULT OUT OF REFERENCE UNITS RANGE LAB L501.080 70-110 mg/dL High BEDSIDE GLU 161 Result Comment: MANAGEMENT OF PATIENT CARE PER NURSING PROTOCOL Performed By: #### L501.080 #### [facility] [address] [place] [address] BEDSIDE GLUCOSE Collected: 08/24/2017 Status: F Source: [place] 6:04 AM [facility] [place] [facility] TYPE CODE TESTS RESULT OUT OF REFERENCE UNITS RANGE LAB L501.080 70-110 mg/dL High BEDSIDE GLU 218 Result Comment: MANAGEMENT OF PATIENT CARE PER NURSING PROTOCOL Performed By: #### L501.080 #### [facility] [address] [place] [address] BEDSIDE GLUCOSE Collected: 08/23/2017 Status: F Source: [place] 8:43 PM [facility] [place] [facility] TYPE CODE TESTS RESULT OUT OF REFERENCE UNITS RANGE LAB L501.080 70-110 mg/dL High BEDSIDE GLU 238 Result Comment: Dr Orders Followed MANAGEMENT OF PATIENT CARE PER NURSING PROTOCOL Performed By: #### L501.080 #### [facility] [address] [place] [address] BEDSIDE GLUCOSE Collected: 08/23/2017 Status: F Source: [place] 4:27 PM [facility] [place] [facility] TYPE CODE TESTS RESULT OUT OF REFERENCE UNITS RANGE LAB L501.080 70-110 mg/dL High BEDSIDE GLU 261 Result Comment: MANAGEMENT OF PATIENT CARE PER NURSING PROTOCOL Performed By: #### L501.080 #### [facility] [address] [place] [address] BEDSIDE GLUCOSE Collected: 08/23/2017 Status: F Source: [place] 12:59 PM [facility] [place] [facility] TYPE CODE TESTS RESULT OUT OF REFERENCE UNITS RANGE LAB L501.080 70-110 mg/dL High BEDSIDE GLU 449 Result Comment: MANAGEMENT OF PATIENT CARE PER NURSING PROTOCOL Performed By: #### L501.080 #### [facility] [address] [place] [address] BEDSIDE GLUCOSE Collected: 08/23/2017 Status: F Source: [place] 11:08 AM [facility] [place] [facility] TYPE CODE TESTS RESULT OUT OF REFERENCE UNITS RANGE LAB L501.080 70-110 mg/dL High alert BEDSIDE GLU 490 Result Comment: Dr Orders Followed MANAGEMENT OF PATIENT CARE PER NURSING PROTOCOL Performed By: #### L501.080 #### [facility] [address] [place] [address] VANCOMYCIN, TROUGH Collected: 08/23/2017 Status: F Source: [place] LEVEL 7:34 AM [facility] [place] [facility] Order Comment: Time Medication is to be Given? 0800 TYPE CODE TESTS RESULT OUT OF REFERENCE UNITS RANGE LAB L501.8820 5.0-15.0 ug/mL High VANCO, TROUGH 18.1 Result Comment: VANCOMYCIN STANDARED DRUG THERAPY TROUGH LEVEL: 5.0 - 15.0 mg/L VANCOMYCIN HIGH INTENSITY THERAPY TROUGH LEVEL: 15.0 - 20.0 mg/L High Intensity therapy recommended for serious life threatening infections include: - Meningitis -Endocarditis -Pneumonia (Ventilator/Healtcare Associated) -Sepsis PLEASE CONTACT PHARMACY SERVICES (#[id number]) FOR INTERPRETATION OF RESULTS. Performed By: #### L501.8820 #### [facility] [address] [place], [address] BEDSIDE GLUCOSE Collected: 08/23/2017 Status: F Source: [place] 6:37 AM [facility] [place] [facility] TYPE CODE TESTS RESULT OUT OF REFERENCE UNITS RANGE LAB L501.080 70-110 mg/dL High BEDSIDE GLU 376 Result Comment: MANAGEMENT OF PATIENT CARE PER NURSING PROTOCOL Performed By: #### L501.080 #### [facility] [address] [place] [address] BEDSIDE GLUCOSE Collected: 08/22/2017 Status: F Source: [place] 9:01 PM [facility] [place] [facility] TYPE CODE TESTS RESULT OUT OF REFERENCE UNITS RANGE LAB L501.080 70-110 mg/dL High BEDSIDE GLU 318 Result Comment: MANAGEMENT OF PATIENT CARE PER NURSING PROTOCOL Performed By: #### L501.080 #### [facility] [address] [place] [address] BEDSIDE GLUCOSE Collected: 08/22/2017 Status: F Source: [place] 4:25 PM [facility] [place] [facility] TYPE CODE TESTS RESULT OUT OF REFERENCE UNITS RANGE LAB L501.080 70-110 mg/dL High BEDSIDE GLU 291 Result Comment: MANAGEMENT OF PATIENT CARE PER NURSING PROTOCOL Performed By: #### L501.080 #### [facility] [address] [place] [address] BEDSIDE GLUCOSE Collected: 08/22/2017 Status: F Source: [place] 11:35 AM [facility] [place] [facility] TYPE CODE TESTS RESULT OUT OF REFERENCE UNITS RANGE LAB L501.080 70-110 mg/dL High BEDSIDE GLU 409 Result Comment: MANAGEMENT OF PATIENT CARE PER NURSING PROTOCOL Performed By: #### L501.080 #### [facility] [address] [place] [address] BEDSIDE GLUCOSE Collected: 08/22/2017 Status: F Source: [place] 6:55 AM [facility] [place] [facility] TYPE CODE TESTS RESULT OUT OF REFERENCE UNITS RANGE LAB L501.080 70-110 mg/dL High BEDSIDE GLU 358 Result Comment: MANAGEMENT OF PATIENT CARE PER NURSING PROTOCOL Performed By: #### L501.080 #### [facility] [address] [place] [address] BEDSIDE GLUCOSE Collected: 08/21/2017 Status: F Source: [place] 9:05 PM [facility] [place] [facility] TYPE CODE TESTS RESULT OUT OF REFERENCE UNITS RANGE LAB L501.080 70-110 mg/dL High BEDSIDE GLU 134 Result Comment: MANAGEMENT OF PATIENT CARE PER NURSING PROTOCOL Performed By: #### L501.080 #### [facility] [address] [place] [address] BEDSIDE GLUCOSE Collected: 08/21/2017 Status: F Source: [place] 4:57 PM [facility] [place] [facility] TYPE CODE TESTS RESULT OUT OF REFERENCE UNITS RANGE LAB L501.080 70-110 mg/dL High BEDSIDE GLU 135 Result Comment: MANAGEMENT OF PATIENT CARE PER NURSING PROTOCOL Performed By: #### L501.080 #### [facility] [address] [place] [address] BEDSIDE GLUCOSE Collected: 08/21/2017 Status: F Source: [place] 11:05 AM [facility] [place] [facility] TYPE CODE TESTS RESULT OUT OF REFERENCE UNITS RANGE LAB L501.080 70-110 mg/dL High BEDSIDE GLU 249 Result Comment: MANAGEMENT OF PATIENT CARE PER NURSING PROTOCOL Performed By: #### L501.080 #### [facility] [address] [place] [address] BEDSIDE GLUCOSE Collected: 08/21/2017 Status: F Source: [place] 6:25 AM [facility] [place] [facility] TYPE CODE TESTS RESULT OUT OF REFERENCE UNITS RANGE LAB L501.080 70-110 mg/dL High BEDSIDE GLU 243 Result Comment: MANAGEMENT OF PATIENT CARE PER NURSING PROTOCOL Performed By: #### L501.080 #### [facility] Point of Care [address] [place] [address] BEDSIDE GLUCOSE Collected: 08/20/2017 Status: F Source: [place] 8:34 PM [facility] [place] TYPE CODE TESTS RESULT OUT OF REFERENCE UNITS RANGE LAB L501.080 70-110 mg/dL High BEDSIDE GLU 226 Result Comment: MANAGEMENT OF PATIENT CARE PER NURSING PROTOCOL Performed By: #### L501.080 #### [facility] [address] [place] [address] BEDSIDE GLUCOSE Collected: 08/20/2017 Status: F Source: [place] 4:39 PM [facility] [place] TYPE CODE TESTS RESULT OUT OF REFERENCE UNITS RANGE LAB L501.080 70-110 mg/dL High BEDSIDE GLU 185 Result Comment: MANAGEMENT OF PATIENT CARE PER NURSING PROTOCOL Performed By: #### L501.080 #### [facility] [address] [place] [address] BEDSIDE GLUCOSE Collected: 08/20/2017 Status: F Source: [place] 11:34 AM [facility] [place] TYPE CODE TESTS RESULT OUT OF REFERENCE UNITS RANGE LAB L501.080 70-110 mg/dL High BEDSIDE GLU 240 Result Comment: MANAGEMENT OF PATIENT CARE PER NURSING PROTOCOL Performed By: #### L501.080 #### [facility] [address] [place] [address] BASIC METABOLIC Collected: 08/20/2017 Status: F Source: [place] PROFILE (BMP) 6:55 AM [facility] [place] TYPE CODE TESTS RESULT OUT OF RANGE REFERENCE UNITS LAB L501.0100 74-106 mg/dL High GLU 220 Result Comment: Glucose result greater than or equal to 200 mg/dL suggests DIABETES MELLITUS per A.D.A. criteria. Please note revised GLUCOSE reference range effective 2017. LAB L501.1000 7-18 mg/dL High BUN 28 LAB L501.1100 0.70-1.30 mg/dL High CREAT,SERUM 1.31 Result Comment: The validity of the calculated GFR AND GFRAA in patients over 70 years has not been determined. Clinical correlation is essential. LAB L501.1110 >60 mL/min Low EST GFR 58 Result Comment: Non- GFR Calc LAB L501.1115 >60 mL/min Normal EST GFR - AA 71 Result Comment: GFR Calc LAB L501.1255 ml/min Normal Estimated CRCL 59.88 LAB L501.1300 10-20 RATIO High BUN/CRE 21.4 LAB L501.2200 8.5-10 mg/dL Low .1 CA 8.4 LAB L501.5300 136-14 mmol/L Normal 5 NA 139 LAB L501.5600 3.5-5. mmol/L Normal 1 K 3.7 LAB L501.5900 98-107 mmol/L Low CL 97 LAB L501.6100 21.0-3 mmol/L High 2.0 CO2 34.0 LAB L501.6200 5-15 Normal GAP 8 Performed By: #### L500.2500 #### [facility] [address] [place], [address] BEDSIDE GLUCOSE Collected: 08/20/2017 Status: F Source: [place] 6:34 AM [facility] [place] TYPE CODE TESTS RESULT OUT OF REFERENCE UNITS RANGE LAB L501.080 70-110 mg/dL High BEDSIDE GLU 223 Result Comment: MANAGEMENT OF PATIENT CARE PER NURSING PROTOCOL Performed By: #### L501.080 #### [facility] [address] [place] [address] BEDSIDE GLUCOSE Collected: 08/19/2017 Status: F Source: [place] 8:20 PM [facility] [place] TYPE CODE TESTS RESULT OUT OF REFERENCE UNITS RANGE LAB L501.080 70-110 mg/dL High BEDSIDE GLU 287 Result Comment: MANAGEMENT OF PATIENT CARE PER NURSING PROTOCOL Performed By: #### L501.080 #### [facility] [address] [place] [address] BEDSIDE GLUCOSE Collected: 08/19/2017 Status: F Source: [place] 4:54 PM [facility] [place] TYPE CODE TESTS RESULT OUT OF REFERENCE UNITS RANGE LAB L501.080 70-110 mg/dL High BEDSIDE GLU 340 Result Comment: MANAGEMENT OF PATIENT CARE PER NURSING PROTOCOL Performed By: #### L501.080 #### [facility] [address] [place], [place] [id number] BEDSIDE GLUCOSE Collected: 08/19/2017 Status: F Source: [place] 11:12 AM [facility] [place] TYPE CODE TESTS RESULT OUT OF REFERENCE UNITS RANGE LAB L501.080 70-110 mg/dL High BEDSIDE GLU 348 Result Comment: MANAGEMENT OF PATIENT CARE PER NURSING PROTOCOL Performed By: #### L501.080 #### [facility] [address] [place] [address] BEDSIDE GLUCOSE Collected: 08/19/2017 Status: F Source: [place] 7:00 AM [facility] [place] TYPE CODE TESTS RESULT OUT OF REFERENCE UNITS RANGE LAB L501.080 70-110 mg/dL High BEDSIDE GLU 310 Result Comment: MANAGEMENT OF PATIENT CARE PER NURSING PROTOCOL Performed By: #### L501.080 #### [facility] [address] [place], [place] [id number] BEDSIDE GLUCOSE Collected: 08/18/2017 Status: F Source: [place] 9:34 PM [facility] [place] TYPE CODE TESTS RESULT OUT OF REFERENCE UNITS RANGE LAB L501.080 70-110 mg/dL High BEDSIDE GLU 219 Result Comment: Dr Orders Followed MANAGEMENT OF PATIENT CARE PER NURSING PROTOCOL Performed By: #### L501.080 #### [facility] [address] [place], [place] [id number] BEDSIDE GLUCOSE Collected: 08/18/2017 Status: F Source: [place] 4:54 PM [facility] [place] TYPE CODE TESTS RESULT OUT OF REFERENCE UNITS RANGE LAB L501.080 70-110 mg/dL High BEDSIDE GLU 194 Result Comment: MANAGEMENT OF PATIENT CARE PER NURSING PROTOCOL Performed By: #### L501.080 #### [facility] [address] [place] [address] BEDSIDE GLUCOSE Collected: 08/18/2017 Status: F Source: [place] 11:10 AM [facility] [place] TYPE CODE TESTS RESULT OUT OF REFERENCE UNITS RANGE LAB L501.080 70-110 mg/dL High BEDSIDE GLU 125 Result Comment: MANAGEMENT OF PATIENT CARE PER NURSING PROTOCOL Performed By: #### L501.080 #### [facility] [address] [place], [place] [address] CBC W/DIFF, AUTOMATED Collected: 08/18/2017 Status: F Source: [place] 7:30 AM [facility] [place] TYPE CODE TESTS RESULT OUT OF RANGE REFERENCE UNITS LAB L100.1000 4.4-11.0 K/mm3 Normal WBC 9.4 LAB L100.1200 4.6-6.2 M/mm3 Low RBC 4.18 LAB L100.1300 13.0-16.5 g/dl Low HGB 12.2 LAB L100.1400 40-54 % Low HCT 37.8 LAB L100.1500 80-94 fL Normal MCV 90.4 LAB L100.1600 27.0-32.0 pg Normal MCH 29.2 LAB L100.1700 32-36 g/gl Normal MCHC 32.3 LAB L100.1810 11.6-14.6 % High RDW CV 15.2 LAB L100.1820 35.1-43.9 fl High RDW SD 49.8 LAB L100.1900 150-450 K/mm3 Normal PLT 370 LAB L100.2000 6.2-12.0 fl Normal MPV 9.7 LAB L100.2100 47-70 % Normal NEUT% 67.3 LAB L100.2200 19-41 % Low LY% 14.1 LAB L100.2300 0-10 % High MONO% 11.2 LAB L100.2400 0-5 % High EO% 6.6 LAB L100.2500 0-1 % Normal BASO% 0.5 LAB L100.2550 0.0-0.9 % Normal IM GRAN % 0.300 Result Comment: IG% - Immature Granulocytes (promyelocytes, myelocytes and metamyelocytes) > 1% indicates that a LEFT SHIFT is Present. LAB L100.2620 2.0-7.7 X10 3/uL Normal Absolute Neut 6.3 LAB L100.2720 0.83-4.51 X10 3/ul Normal Absolute Lymph 1.33 Performed By: #### L100.0100 #### [facility] [place], [place], [address] BASIC METABOLIC Collected: 08/18/2017 Status: F Source: [place] PROFILE (BMP) 7:30 AM [facility] [place] TYPE CODE TESTS RESULT OUT OF RANGE REFERENCE UNITS LAB L501.0100 74-106 mg/dL High GLU 148 Result Comment: Fasting Glucose result greater than or equal to 126 mg/dL suggests DIABETES MELLITUS per A.D.A. criteria. Please note revised GLUCOSE reference range effective 2017. LAB L501.1000 7-18 mg/dL High BUN 30 LAB L501.1100 0.70-1.30 mg/dL Normal CREAT,SERUM 1.28 Result Comment: The validity of the calculated GFR AND GFRAA in patients over 70 years has not been determined. Clinical correlation is essential. LAB L501.1110 >60 mL/min Normal EST GFR 60 Result Comment: Non- GFR Calc LAB L501.1115 >60 mL/min Normal EST GFR - AA 72 Result Comment: GFR Calc LAB L501.1255 ml/min Normal Estimated CRCL 61.28 LAB L501.1300 10-20 RATIO High BUN/CRE 23.4 LAB L501.2200 8.5-10 mg/dL Low .1 CA 8.3 LAB L501.5300 136-14 mmol/L Normal 5 NA 138 LAB L501.5600 3.5-5. mmol/L Low 1 K 3.4 LAB L501.5900 98-107 mmol/L Normal CL 99 LAB L501.6100 21.0-3 mmol/L High 2.0 CO2 33.0 LAB L501.6200 5-15 Normal GAP 6 Performed By: #### L500.2500 #### [facility] [address] [place], [place], [address] BEDSIDE GLUCOSE Collected: 08/18/2017 Status: F Source: [place] 6:49 AM [facility] [place] TYPE CODE TESTS RESULT OUT OF REFERENCE UNITS RANGE LAB L501.080 70-110 mg/dL High BEDSIDE GLU 160 Result Comment: Dr Rees Followed MANAGEMENT OF PATIENT CARE PER NURSING PROTOCOL Performed By: #### L501.080 #### [facility] [address] [place] [address] BEDSIDE GLUCOSE Collected: 08/17/2017 Status: F Source: [place] 9:11 PM [facility] [place] TYPE CODE TESTS RESULT OUT OF REFERENCE UNITS RANGE LAB L501.080 70-110 mg/dL High BEDSIDE GLU 254 Result Comment: Dr Rees Followed MANAGEMENT OF PATIENT CARE PER NURSING PROTOCOL Performed By: #### L501.080 #### [facility] [address] [place] [address] BEDSIDE GLUCOSE Collected: 08/17/2017 Status: F Source: [place] 5:03 PM [facility] [place] TYPE CODE TESTS RESULT OUT OF REFERENCE UNITS RANGE LAB L501.080 70-110 mg/dL High BEDSIDE GLU 184 Result Comment: MANAGEMENT OF PATIENT CARE PER NURSING PROTOCOL Performed By: #### L501.080 #### [facility] [address] [place] [address] BEDSIDE GLUCOSE Collected: 08/17/2017 Status: F Source: [place] 11:24 AM [facility] [place] TYPE CODE TESTS RESULT OUT OF REFERENCE UNITS RANGE LAB L501.080 70-110 mg/dL High BEDSIDE GLU 359 Result Comment: MANAGEMENT OF PATIENT CARE PER NURSING PROTOCOL Performed By: #### L501.080 #### [facility] [address] [place] [address] BEDSIDE GLUCOSE Collected: 08/17/2017 Status: F Source: [place] 6:49 AM [facility] [place] TYPE CODE TESTS RESULT OUT OF REFERENCE UNITS RANGE LAB L501.080 70-110 mg/dL High BEDSIDE GLU 341 Result Comment: MANAGEMENT OF PATIENT CARE PER NURSING PROTOCOL Performed By: #### L501.080 #### [facility] [address] [place] [address] BEDSIDE GLUCOSE Collected: 08/16/2017 Status: F Source: [place] 9:11 PM [facility] [place] TYPE CODE TESTS RESULT OUT OF REFERENCE UNITS RANGE LAB L501.080 70-110 mg/dL High BEDSIDE GLU 340 Result Comment: MANAGEMENT OF PATIENT CARE PER NURSING PROTOCOL Performed By: #### L501.080 #### [facility] [address] [place] [address] BEDSIDE GLUCOSE Collected: 08/16/2017 Status: F Source: [place] 4:57 PM [facility] [place] TYPE CODE TESTS RESULT OUT OF REFERENCE UNITS RANGE LAB L501.080 70-110 mg/dL High BEDSIDE GLU 244 Result Comment: MANAGEMENT OF PATIENT CARE PER NURSING PROTOCOL Performed By: #### L501.080 #### [facility] [address] [place], [place] [address] BEDSIDE GLUCOSE Collected: 08/16/2017 Status: F Source: [place] 11:20 AM [facility] [place] TYPE CODE TESTS RESULT OUT OF REFERENCE UNITS RANGE LAB L501.080 70-110 mg/dL High BEDSIDE GLU 156 Result Comment: MANAGEMENT OF PATIENT CARE PER NURSING PROTOCOL Performed By: #### L501.080 #### [facility] [address] [place], [place] [id number] VANCOMYCIN, TROUGH Collected: 08/16/2017 Status: F Source: [place] LEVEL 7:45 AM [facility] [place] Order Comment: Time Medication is to be Given? 0800 TYPE CODE TESTS RESULT OUT OF REFERENCE UNITS RANGE LAB L501.8820 5.0-15.0 ug/mL High VANCO, TROUGH 17.3 Result Comment: VANCOMYCIN STANDARED DRUG THERAPY TROUGH LEVEL: 5.0 - 15.0 mg/L VANCOMYCIN HIGH INTENSITY THERAPY TROUGH LEVEL: 15.0 - 20.0 mg/L High Intensity therapy recommended for serious life threatening infections include: - Meningitis -Endocarditis -Pneumonia (Ventilator/Healtcare Associated) -Sepsis PLEASE CONTACT PHARMACY SERVICES (#[phone]) FOR INTERPRETATION OF RESULTS. Performed By: #### L501.8820 #### [facility] [address] [place], [place], [address] BEDSIDE GLUCOSE Collected: 08/16/2017 Status: F Source: [place] 6:32 AM [facility] [place] TYPE CODE TESTS RESULT OUT OF REFERENCE UNITS RANGE LAB L501.080 70-110 mg/dL High BEDSIDE GLU 219 Result Comment: MANAGEMENT OF PATIENT CARE PER NURSING PROTOCOL Performed By: #### L501.080 #### [facility] [address] [place], [place] [id number] BEDSIDE GLUCOSE Collected: 08/15/2017 Status: F Source: [place] 8:44 PM [facility] [place] TYPE CODE TESTS RESULT OUT OF REFERENCE UNITS RANGE LAB L501.080 70-110 mg/dL High BEDSIDE GLU 196 Result Comment: MANAGEMENT OF PATIENT CARE PER NURSING PROTOCOL Performed By: #### L501.080 #### [facility] [address] [place] [address] BEDSIDE GLUCOSE Collected: 08/15/2017 Status: F Source: [place] 5:14 PM [facility] [place] TYPE CODE TESTS RESULT OUT OF REFERENCE UNITS RANGE LAB L501.080 70-110 mg/dL High BEDSIDE GLU 129 Result Comment: MANAGEMENT OF PATIENT CARE PER NURSING PROTOCOL Performed By: #### L501.080 #### [facility] [address] [place] [address] BEDSIDE GLUCOSE Collected: 08/15/2017 Status: F Source: [place] 11:19 AM [facility] [place] TYPE CODE TESTS RESULT OUT OF REFERENCE UNITS RANGE LAB L501.080 70-110 mg/dL High BEDSIDE GLU 221 Result Comment: MANAGEMENT OF PATIENT CARE PER NURSING PROTOCOL Performed By: #### L501.080 #### [facility] [address] [place] [address] BEDSIDE GLUCOSE Collected: 08/15/2017 Status: F Source: [place] 6:58 AM [facility] [place] TYPE CODE TESTS RESULT OUT OF REFERENCE UNITS RANGE LAB L501.080 70-110 mg/dL High BEDSIDE GLU 230 Result Comment: MANAGEMENT OF PATIENT CARE PER NURSING PROTOCOL Performed By: #### L501.080 #### [facility] [address] [place] [address] BEDSIDE GLUCOSE Collected: 08/14/2017 Status: F Source: [place] 9:05 PM [facility] [place] TYPE CODE TESTS RESULT OUT OF REFERENCE UNITS RANGE LAB L501.080 70-110 mg/dL High BEDSIDE GLU 311 Result Comment: MANAGEMENT OF PATIENT CARE PER NURSING PROTOCOL Performed By: #### L501.080 #### [facility] [address] [place], [place] [id number] BEDSIDE GLUCOSE Collected: 08/14/2017 Status: F Source: [place] 5:01 PM [facility] [place] TYPE CODE TESTS RESULT OUT OF REFERENCE UNITS RANGE LAB L501.080 70-110 mg/dL High BEDSIDE GLU 250 Result Comment: MANAGEMENT OF PATIENT CARE PER NURSING PROTOCOL Performed By: #### L501.080 #### [facility] [address] [place], [place] [id number] BEDSIDE GLUCOSE Collected: 08/14/2017 Status: F Source: [place] 11:16 AM [facility] [place] TYPE CODE TESTS RESULT OUT OF REFERENCE UNITS RANGE LAB L501.080 70-110 mg/dL High BEDSIDE GLU 364 Result Comment: MANAGEMENT OF PATIENT CARE PER NURSING PROTOCOL Performed By: #### L501.080 #### [facility] [address] [place] [address] BEDSIDE GLUCOSE Collected: 08/14/2017 Status: F Source: [place] 5:59 AM [facility] [place] TYPE CODE TESTS RESULT OUT OF REFERENCE UNITS RANGE LAB L501.080 70-110 mg/dL High BEDSIDE GLU 251 Result Comment: MANAGEMENT OF PATIENT CARE PER NURSING PROTOCOL Performed By: #### L501.080 #### [facility] [address] [place] [address] BEDSIDE GLUCOSE Collected: 08/13/2017 Status: F Source: [place] 9:08 PM [facility] [place] TYPE CODE TESTS RESULT OUT OF REFERENCE UNITS RANGE LAB L501.080 70-110 mg/dL High BEDSIDE GLU 175 Result Comment: Orders Followed MANAGEMENT OF PATIENT CARE PER NURSING PROTOCOL Performed By: #### L501.080 #### [facility] [address] [place] [address] BEDSIDE GLUCOSE Collected: 08/13/2017 Status: F Source: [place] 4:56 PM [facility] [place] TYPE CODE TESTS RESULT OUT OF REFERENCE UNITS RANGE LAB L501.080 70-110 mg/dL High BEDSIDE GLU 175 Result Comment: MANAGEMENT OF PATIENT CARE PER NURSING PROTOCOL Performed By: #### L501.080 #### [facility] [address] [place] [address] BEDSIDE GLUCOSE Collected: 08/13/2017 Status: F Source: [place] 11:35 AM [facility] [place] TYPE CODE TESTS RESULT OUT OF REFERENCE UNITS RANGE LAB L501.080 70-110 mg/dL High BEDSIDE GLU 268 Result Comment: MANAGEMENT OF PATIENT CARE PER NURSING PROTOCOL Performed By: #### L501.080 #### [facility] [address] [place] [address] BEDSIDE GLUCOSE Collected: 08/13/2017 Status: F Source: [place]ANNER 9:44 AM [facility] [place] TYPE CODE TESTS RESULT OUT OF REFERENCE UNITS RANGE LAB L501.080 70-110 mg/dL High BEDSIDE GLU 126 Result Comment: MANAGEMENT OF PATIENT CARE PER NURSING PROTOCOL Performed By: #### L501.080 #### [facility] [address] [place] [address] BEDSIDE GLUCOSE Collected: 08/13/2017 Status: F Source: [place]AN[place] 7:01 AM [facility] [place] TYPE CODE TESTS RESULT OUT OF RANGE REFERENCE UNITS LAB L501.080 70-110 mg/dL Normal BEDSIDE GLU 75 Result Comment: MANAGEMENT OF PATIENT CARE PER NURSING PROTOCOL Performed By: #### L501.080 #### [facility] [address] [place] [address] BEDSIDE GLUCOSE Collected: 08/13/2017 Status: F Source: [place] 12:08 AM [facility] [place] TYPE CODE TESTS RESULT OUT OF REFERENCE UNITS RANGE LAB L501.080 70-110 mg/dL High BEDSIDE GLU 122 Result Comment: MANAGEMENT OF PATIENT CARE PER NURSING PROTOCOL Performed By: #### L501.080 #### [facility] [address] [place] [address] BEDSIDE GLUCOSE Collected: 08/12/2017 Status: F Source: [place]ANNER 9:00 PM [facility] [place] TYPE CODE TESTS RESULT OUT OF REFERENCE UNITS RANGE LAB L501.080 70-110 mg/dL High BEDSIDE GLU 138 Result Comment: MANAGEMENT OF PATIENT CARE PER NURSING PROTOCOL Performed By: #### L501.080 #### [facility] [address] [place] [address] BEDSIDE GLUCOSE Collected: 08/12/2017 Status: F Source: [place] 4:56 PM [facility] [place] TYPE CODE TESTS RESULT OUT OF REFERENCE UNITS RANGE LAB L501.080 70-110 mg/dL High BEDSIDE GLU 177 Result Comment: MANAGEMENT OF PATIENT CARE PER NURSING PROTOCOL Performed By: #### L501.080 #### [facility] [address] [place] [address] BEDSIDE GLUCOSE Collected: 08/12/2017 Status: F Source: [place]NER 11:22 AM [facility] [place] TYPE CODE TESTS RESULT OUT OF REFERENCE UNITS RANGE LAB L501.080 70-110 mg/dL High BEDSIDE GLU 228 Result Comment: Insulin Given MANAGEMENT OF PATIENT CARE PER NURSING PROTOCOL Performed By: #### L501.080 #### [facility] [address] [place] [address] BEDSIDE GLUCOSE Collected: 08/12/2017 Status: F Source: [place]ANNER 7:04 AM [facility] [place] TYPE CODE TESTS RESULT OUT OF RANGE REFERENCE UNITS LAB L501.080 70-110 mg/dL Normal BEDSIDE GLU 70 Result Comment: MANAGEMENT OF PATIENT CARE PER NURSING PROTOCOL Performed By: #### L501.080 #### [facility] [address] [place] [address] BASIC METABOLIC Collected: 08/12/2017 Status: F Source: [place] PROFILE (BMP) 6:18 AM [facility] [place] TYPE CODE TESTS RESULT OUT OF RANGE REFERENCE UNITS LAB L501.0100 74-106 mg/dL Normal GLU 81 Result Comment: Please note revised GLUCOSE reference range effective 2017. LAB L501.1000 7-18 mg/dL High BUN 37 LAB L501.1100 0.70-1.30 mg/dL Normal CREAT,SERUM 1.28 Result Comment: The validity of the calculated GFR AND GFRAA in patients over 70 years has not been determined. Clinical correlation is essential. LAB L501.1110 >60 mL/min Normal EST GFR 60 Result Comment: Non- GFR Calc LAB L501.1115 >60 mL/min Normal EST GFR - AA 72 Result Comment: GFR Calc LAB L501.1255 ml/min Normal Estimated CRCL 61.28 LAB L501.1300 10-20 RATIO High BUN/CRE 28.9 LAB L501.2200 8.5-10 mg/dL Low .1 CA 7.9 LAB L501.5300 136-14 mmol/L Normal 5 NA 139 LAB L501.5600 3.5-5. mmol/L Normal 1 K 3.8 LAB L501.5900 98-107 mmol/L Normal CL 100 LAB L501.6100 21.0-3 mmol/L Normal 2.0 CO2 32.0 LAB L501.6200 5-15 Normal GAP 7 Performed By: #### L500.2500 #### [facility] [address] [place], [address] BEDSIDE GLUCOSE Collected: 08/12/2017 Status: F Source: [place]ANNER 3:20 AM [facility] [place] TYPE CODE TESTS RESULT OUT OF REFERENCE UNITS RANGE LAB L501.080 70-110 mg/dL High BEDSIDE GLU 150 Result Comment: MANAGEMENT OF PATIENT CARE PER NURSING PROTOCOL Performed By: #### L501.080 #### [facility] [address] [facility] [place] [address] BEDSIDE GLUCOSE Collected: 08/12/2017 Status: F Source: [place] 12:04 AM [facility] [place] TYPE CODE TESTS RESULT OUT OF REFERENCE UNITS RANGE LAB L501.080 70-110 mg/dL High BEDSIDE GLU 232 Result Comment: MANAGEMENT OF PATIENT CARE PER NURSING PROTOCOL Performed By: #### L501.080 #### [facility] [address] [place] [address] BEDSIDE GLUCOSE Collected: 08/11/2017 Status: F Source: [place] 8:36 PM [facility] [place] [facility] TYPE CODE TESTS RESULT OUT OF REFERENCE UNITS RANGE LAB L501.080 70-110 mg/dL High BEDSIDE GLU 320 Result Comment: MANAGEMENT OF PATIENT CARE PER NURSING PROTOCOL Performed By: #### L501.080 #### [facility] [address] [facility] [place] [address] BEDSIDE GLUCOSE Collected: 08/11/2017 Status: F Source: [place]NER 6:24 PM [facility] [place] [facility] TYPE CODE TESTS RESULT OUT OF REFERENCE UNITS RANGE LAB L501.080 70-110 mg/dL High BEDSIDE GLU 284 Result Comment: Insulin Given MANAGEMENT OF PATIENT CARE PER NURSING PROTOCOL Performed By: #### L501.080 #### [facility] [address] [place] [address] BEDSIDE GLUCOSE Collected: 08/11/2017 Status: F Source: [place] 4:57 PM [facility] [place] [facility] TYPE CODE TESTS RESULT OUT OF REFERENCE UNITS RANGE LAB L501.080 70-110 mg/dL High BEDSIDE GLU 207 Result Comment: MANAGEMENT OF PATIENT CARE PER NURSING PROTOCOL Performed By: #### L501.080 #### [facility] [address] [place] [address] BEDSIDE GLUCOSE Collected: 08/11/2017 Status: F Source: [place]AN[place] 3:55 PM [facility] [place] TYPE CODE TESTS RESULT OUT OF REFERENCE UNITS RANGE LAB L501.080 70-110 mg/dL High BEDSIDE GLU 450 Result Comment: MANAGEMENT OF PATIENT CARE PER NURSING PROTOCOL Performed By: #### L501.080 #### [facility] [address] [place] [address] BEDSIDE GLUCOSE Collected: 08/11/2017 Status: F Source: [place]ANNER 2:14 PM [facility] [place] [facility] TYPE CODE TESTS RESULT OUT OF REFERENCE UNITS RANGE LAB L501.080 70-110 mg/dL High alert BEDSIDE GLU > 500 Result Comment: MANAGEMENT OF PATIENT CARE PER NURSING PROTOCOL Performed By: #### L501.080 #### [facility] [address] [place] [address] BEDSIDE GLUCOSE Collected: 08/11/2017 Status: F Source: [place] 1:36 PM [facility] [place] REPOS[place]ORY TYPE CODE TESTS RESULT OUT OF REFERENCE UNITS RANGE LAB L501.080 70-110 mg/dL High alert BEDSIDE GLU > 500 Result Comment: Dr Orders Followed MANAGEMENT OF PATIENT CARE PER NURSING PROTOCOL Performed By: #### L501.080 #### [facility] Point of Care [address] [place] [address] GLUCOSE Collected: 08/11/2017 Status: F Source: [place] 11:30 AM [facility] [place] REPOSITORY TYPE CODE TESTS RESULT OUT OF RANGE REFERENCE UNITS LAB L501.0100 74-106 mg/dL High alert GLU 614 Result Comment: Critical Result(s) Called at: 12:01:36 08/11/2017 by: Papa to Mine HALL Glucose result greater than or equal to 200 mg/dL suggests DIABETES MELLITUS per A.D.A. criteria. Please note revised GLUCOSE reference range effective 2017. Performed By: #### L501.0100 #### [facility] [address] [place], [place], [id number] BEDSIDE GLUCOSE Collected: 08/11/2017 Status: F Source: [place] 11:16 AM [facility] [place] TYPE CODE TESTS RESULT OUT OF REFERENCE UNITS RANGE LAB L501.080 70-110 mg/dL High alert BEDSIDE GLU > 500 Result Comment: Orders Followed MANAGEMENT OF PATIENT CARE PER NURSING PROTOCOL Performed By: #### L501.080 #### [facility] Point of Care [address] [place] [address] BEDSIDE GLUCOSE Collected: 08/11/2017 Status: F Source: [place] 11:08 AM [facility] [place] TYPE CODE TESTS RESULT OUT OF REFERENCE UNITS RANGE LAB L501.080 70-110 mg/dL High alert BEDSIDE GLU > 500 Result Comment: Orders Followed MANAGEMENT OF PATIENT CARE PER NURSING PROTOCOL Performed By: #### L501.080 #### [facility] Point of Care [address] [place] [address] CBC W/DIFF, AUTOMATED Collected: 08/11/2017 Status: F Source: [place] 7:10 AM [facility] [place] TYPE CODE TESTS RESULT OUT OF RANGE REFERENCE UNITS LAB L100.1000 4.4-11.0 K/mm3 High WBC 12.3 LAB L100.1200 4.6-6.2 M/mm3 Low RBC 4.19 LAB L100.1300 13.0-16.5 g/dl Low HGB 12.1 LAB L100.1400 40-54 % Low HCT 37.7 LAB L100.1500 80-94 fL Normal MCV 90.0 LAB L100.1600 27.0-32.0 pg Normal MCH 28.9 LAB L100.1700 32-36 g/gl Normal MCHC 32.1 LAB L100.1810 11.6-14.6 % High RDW CV 15.1 LAB L100.1820 35.1-43.9 fl High RDW SD 49.3 LAB L100.1900 150-450 K/mm3 Normal PLT 350 LAB L100.2000 6.2-12.0 fl Normal MPV 10.3 LAB L100.2100 47-70 % High NEUT% 91.9 LAB L100.2200 19-41 % Low LY% 5.2 LAB L100.2300 0-10 % Normal MONO% 2.7 LAB L100.2400 0-5 % Normal EO% 0.0 LAB L100.2500 0-1 % Normal BASO% 0.0 LAB L100.2550 0.0-0.9 % Normal IM GRAN % 0.200 Result Comment: IG% - Immature Granulocytes (promyelocytes, myelocytes and metamyelocytes) > 1% indicates that a LEFT SHIFT is Present. LAB L100.2620 2.0-7.7 X10 3/uL High Absolute Neut 11.3 LAB L100.2720 0.83-4.51 X10 3/ul Low Absolute Lymph 0.64 Performed By: #### L100.0100 #### [facility] [address] [place], [address] VANCOMYCIN, TROUGH Collected: 08/11/2017 Status: F Source: [place] LEVEL 7:10 AM [facility] [place] Order Comment: Time Medication is to be Given? 0800 TYPE CODE TESTS RESULT OUT OF REFERENCE UNITS RANGE LAB L501.8820 5.0-15.0 ug/mL High VANCO, TROUGH 16.9 Result Comment: VANCOMYCIN STANDARED DRUG THERAPY TROUGH LEVEL: 5.0 - 15.0 mg/L VANCOMYCIN HIGH INTENSITY THERAPY TROUGH LEVEL: 15.0 - 20.0 mg/L High Intensity therapy recommended for serious life threatening infections include: - Meningitis -Endocarditis -Pneumonia (Ventilator/Healtcare Associated) -Sepsis PLEASE CONTACT PHARMACY SERVICES (#[phone]) FOR INTERPRETATION OF RESULTS. Performed By: #### L501.8820 #### [facility] [address] [place], [place], [address] BASIC METABOLIC Collected: 08/11/2017 Status: F Source: [place] PROFILE (BMP) 7:10 AM [facility] [place] TYPE CODE TESTS RESULT OUT OF RANGE REFERENCE UNITS LAB L501.0100 74-106 mg/dL High alert GLU 454 Result Comment: Critical Result(s) Called at: 08:29:00 08/11/2017 by: Papa to Suzette HALL Glucose result greater than or equal to 200 mg/dL suggests DIABETES MELLITUS per A.D.A. criteria. Please note revised GLUCOSE reference range effective 2017. LAB L501.1000 7-18 mg/dL High BUN 32 LAB L501.1100 0.70-1.30 mg/dL High CREAT,SERUM 1.39 Result Comment: The validity of the calculated GFR AND GFRAA in patients over 70 years has not been determined. Clinical correlation is essential. LAB L501.1110 >60 mL/min Low EST GFR 54 Result Comment: Non- GFR Calc LAB L501.1115 >60 mL/min Normal EST GFR - AA 66 Result Comment: GFR Calc LAB L501.1255 ml/min Normal Estimated CRCL 56.43 LAB L501.1300 10-20 RATIO High BUN/CRE 23.0 LAB L501.2200 8.5-10 mg/dL Normal .1 CA 8.5 LAB L501.5300 136-14 mmol/L Low 5 NA 132 LAB L501.5600 3.5-5. mmol/L High 1 K 5.6 Result Comment: Slight Hemolysis, Result may be falsely increased. LAB L501.5900 98-107 mmol/L Low CL 96 LAB L501.6100 21.0-32.0 mmol/L Normal CO2 27.0 LAB L501.6200 5-15 Normal GAP 9 Performed By: #### L500.2500 #### [facility] [address] [place], [address] BEDSIDE GLUCOSE Collected: 08/11/2017 Status: F Source: [place] 6:48 AM [facility] [place] TYPE CODE TESTS RESULT OUT OF REFERENCE UNITS RANGE LAB L501.080 70-110 mg/dL High BEDSIDE GLU 430 Result Comment: MANAGEMENT OF PATIENT CARE PER NURSING PROTOCOL Performed By: #### L501.080 #### [facility] Point of Care [address] [place], [place] [address] BEDSIDE GLUCOSE Collected: 08/10/2017 Status: F Source: [place] 8:59 PM [facility] [place] TYPE CODE TESTS RESULT OUT OF REFERENCE UNITS RANGE LAB L501.080 70-110 mg/dL High BEDSIDE GLU 176 Result Comment: MANAGEMENT OF PATIENT CARE PER NURSING PROTOCOL Performed By: #### L501.080 #### [facility] Point of Care [address] [place] [address] URINALYSIS, COMPLETE Collected: 08/10/2017 Status: F Source: [place] 6:12 PM [facility] [place] Order Comment: Order Date: 08/10/17 Send Results To: TCU Reason for Laboratory Test Swelling , fever How was Urine Obtained? CLEAN CATCH TYPE CODE TESTS RESULT OUT OF RANGE REFERENCE UNITS LAB L400.3000 Yellow COLOR Normal Yellow LAB L400.3050 Clear Normal CLARITY Clear LAB L400.3200 Normal mg/dl Normal GLUCOSE, UR Normal LAB L400.3300 Negative mg/dL Normal BILIRUBIN URINE Negative LAB L400.3400 Negative mg/dl Normal KETONE UR Negative LAB L400.3465 1.002-1.030 Normal SP.GR. DIPSTX 1.010 LAB L400.3550 5.0 - 8.0 pH UR Normal 6.5 LAB L400.3600 Negative mg/dl PROT Normal DIPSTX Negative LAB L400.3700 Normal mg/dl Normal UROBILI Normal LAB L400.3750 Negative Normal NITRITE UR Negative LAB L400.3780 Negative /ul High 10 OCCULT BLOOD-UR LAB L400.3800 Negative /ul High LEUK 25 ESTERASE LAB L400.4050 0-5 /hpf WBC 0 Normal SEEN LAB L400.4100 0-5 /hpf 0 Normal RBC-UA SEEN LAB L400.4150 0-5 /hpf SQUAM 0 Normal EPI SEEN LAB L400.4300 None Seen /hpf 0 Normal BACTERIA SEEN LAB L400.4350 <or=2+ /hpf 0 Normal MUCUS, URINE SEEN Performed By: #### L400.0001 #### [facility] [address] [place] [address]. [place], [place], [address] Observed: 08/10/2017 Status: F Source: [place] CULTURE, URINE 6:12 PM [facility] [place] Order Date: 08/10/17 Send Results To: TCU Reason for Laboratory Test swelling, fever Urine Culture ORGANISM 1: Presumptive C albicans [place] Count 1000-10,000 Performed By: #### M100.0650 #### [facility] [address] [place] [address]. [place], [place], [address] Observed: 08/10/2017 Status: F Source: [place] RESPIRATORY PANEL 5:10 PM [facility] [place] [facility]CULAR REPOSITORY RP PANEL ADENOVIRUS Not Detected HUMAN METAPHNEUMO Not Detected INFLUENZA A Not Detected INFLUENZA A (SUBTYPE H1) Not Detected INFLUENZA A (SUBTYPE H3) Not Detected INFLUENZA B Not Detected PARAINFLUENZA 1 Not Detected PARAINFLUENZA 2 Not Detected PARAINFLUENZA 3 Not Detected PARAINFLUENZA 4 Not Detected RHINOVIRUS Not Detected RSV A Not Detected RSV B Not Detected NAAT METHOD Testing was performed using nucleic acid amplification Performed By: #### M100.638 #### [facility] [address] [place] [address]. [place], [place], [address] BEDSIDE GLUCOSE Collected: 08/10/2017 Status: F Source: [place] 5:04 PM [facility] [place] TYPE CODE TESTS RESULT OUT OF RANGE REFERENCE UNITS LAB L501.080 70-110 mg/dL Normal BEDSIDE GLU 104 Result Comment: MANAGEMENT OF PATIENT CARE PER NURSING PROTOCOL Performed By: #### L501.080 #### [facility] Point of Care [address] [place] [address]. [place], [place] [address] Observed: 08/10/2017 Status: F Source: [place] CULTURE, BLOOD ([place]) 5:00 PM [facility] [place] Has pt arrived? Y BC No growth in 5 days. Performed By: #### M200.1000 #### [facility] [address] [place] [address]. [place], [address] CBC W/DIFF, AUTOMATED Collected: 08/10/2017 Status: F Source: [place] 4:40 PM [facility] [place] TYPE CODE TESTS RESULT OUT OF RANGE REFERENCE UNITS LAB L100.1000 4.4-11.0 K/mm3 Normal WBC 10.3 LAB L100.1200 4.6-6.2 M/mm3 Low RBC 3.94 LAB L100.1300 13.0-16.5 g/dl Low HGB 11.7 LAB L100.1400 40-54 % Low HCT 35.7 LAB L100.1500 80-94 fL Normal MCV 90.6 LAB L100.1600 27.0-32.0 pg Normal MCH 29.7 LAB L100.1700 32-36 g/gl Normal MCHC 32.8 LAB L100.1810 11.6-14.6 % High RDW CV 15.2 LAB L100.1820 35.1-43.9 fl High RDW SD 49.6 LAB L100.1900 150-450 K/mm3 Normal PLT 374 LAB L100.2000 6.2-12.0 fl Normal MPV 10.0 LAB L100.2100 47-70 % High NEUT% 73.7 LAB L100.2200 19-41 % Low LY% 13.8 LAB L100.2300 0-10 % Normal MONO% 7.1 LAB L100.2400 0-5 % Normal EO% 4.7 LAB L100.2500 0-1 % Normal BASO% 0.4 LAB L100.2550 0.0-0.9 % Normal IM GRAN % 0.300 Result Comment: IG% - Immature Granulocytes (promyelocytes, myelocytes and metamyelocytes) > 1% indicates that a LEFT SHIFT is Present. LAB L100.2620 2.0-7.7 X10 3/uL Normal Absolute Neut 7.6 LAB L100.2720 0.83-4.51 X10 3/ul Normal Absolute Lymph 1.42 Performed By: #### L100.0100 #### [facility] [address] [place], [place], [address] BASIC METABOLIC Collected: 08/10/2017 Status: F Source: [place] [facility]) [facility] TYPE CODE TESTS RESULT OUT OF RANGE REFERENCE UNITS LAB L501.0100 74-106 mg/dL Normal GLU 95 Result Comment: Please note revised GLUCOSE reference range effective 2017. LAB L501.1000 7-18 mg/dL High BUN 28 LAB L501.1100 0.70-1.30 mg/dL Normal CREAT,SERUM 0.98 Result Comment: The validity of the calculated GFR AND GFRAA in patients over 70 years has not been determined. Clinical correlation is essential. LAB L501.1110 >60 mL/min Normal EST GFR 82 Result Comment: Non- GFR Calc LAB L501.1115 >60 mL/min Normal EST GFR - AA 99 Result Comment: GFR Calc LAB L501.1255 ml/min Normal Estimated CRCL 80.04 LAB L501.1300 10-20 RATIO High BUN/CRE 28.7 LAB L501.2200 8.5-10 mg/dL Low .1 CA 7.4 LAB L501.5300 136-14 mmol/L Normal 5 NA 140 LAB L501.5600 3.5-5. mmol/L Low 1 K 3.2 LAB L501.5900 98-107 mmol/L Normal CL 104 LAB L501.6100 21.0-3 mmol/L Normal 2.0 CO2 29.0 LAB L501.6200 5-15 Normal GAP 7 Performed By: #### L500.2500 #### [facility] [address] [place], [place], [address] Observed: 08/10/2017 Status: F Source: [place] CULTURE, BLOOD (WB) 4:40 PM [facility] [place] Has pt arrived? Y BC No growth in 5 days. Performed By: #### M200.1000 #### [facility] [address] [place], [place], [address] ABDOMEN SINGLE VIEW Observed: 08/10/2017 Status: F Source: [place] 3:49 PM [facility] [place] [facility] Imaging Services [address] [place] [address] Abdomen Single View MR#: [id number] Acct: [id number] Name: FADI ALCANTAR Rep #: [id number] : 1950 M 67 From: Raj Foss MD PCP: Johnathan Batres MD, Chi Status: ADM IN Study: Abdomen Single View Date of Exam: 08/10/17 Exam# [id number] Ordering Dr: Johnathan Batres MD STUDY: X-RAY - ABDOMEN/PELVIS REASON FOR EXAM: Male, 67 years old. Abdominal distention TECHNIQUE: Single AP view of the abdomen / pelvis. COMPARISON: None. FINDINGS: There are multiple metallic clips in the right upper quadrant. This is consistent for a cholecystectomy. There is a moderate amount of colonic fecal material. There is no demonstrated free abdominal air. The visualized liver, spleen and kidneys are grossly normal in size and morphology. Normal soft tissue structures. Normal visualized osseous structures. RAD/Abdomen Single View IMPRESSION: Constipation. Electronically Signed: Raj Foss MD at 16:19 EST , Service support , CC: Johnathan Batres MD Inbound Sales Manager: Signed CHEST PA AND LATERAL Observed: 08/10/2017 Status: F Source: [place] 3:49 PM [facility] [place] [facility] Imaging Services [address] [place] [address] Chest PA and Lateral MR#: [id number] Acct: [id number] Name: FADI ALCANTAR Rep #: [id number] : 1950 M 67 From: Raj Foss MD PCP: Johnathan Batres MD, Chi Status: ADM IN Study: Chest PA and Lateral Date of Exam: 08/10/17 Exam# [id number] Ordering Dr: Johnathan Batres MD STUDY: X-RAY CHEST REASON FOR EXAM: Male, 67 years old. Fever TECHNIQUE: Frontal and lateral views of the chest. COMPARISON: 07-31 FINDINGS: Chronic appearing increased interstitial lung markings. Multiple median sternotomy wires are noted consistent for cardiac surgery. There is a right PICC line in place. The tip is in the superior vena caval - atrial junction. Left lower lobe atelectasis. Small left pleural effusion. There is borderline cardiomegaly. Normal mediastinum and catrina. Normal visualized pulmonary arteries. There is atherosclerotic tortuosity of the aortic arch and descending thoracic aorta. There are diffuse degenerative changes of the visualized thoracic spine. There is degenerative osteoarthritis of the bilateral shoulders. There is no demonstrated abnormality of the visualized soft tissue structures of the upper abdomen. RAD/Chest PA and Lateral IMPRESSION: Left lower lobe atelectasis. Small left pleural effusion. Electronically Signed: Raj Foss MD at 16:21 EST , Service support , CC: Johnathan Batres MD Inbound Sales Manager: Signed OPERATIVE REPORT Observed: 08/10/2017 Status: F Source: [place] 12:22 PM [facility] [place] [facility] Medical Records Department [address] [place] [address] Operative Report 07/31/17 1719 MR#: [id number] Acct: [id number] Name: FADI ALCANTAR Rep #: [id number] : 1950 67 From: Margaret Thomas DPTeri PCP: Medardo PELAEZ,Johnathan English Status: DIS IN Y Location: [facility] [id number] Problem List (1) Osteomyelitis of right foot Status: Acute (2) Osteomyelitis of left foot Status: Chronic Qualifiers: Osteomyelitis type: subacute Qualified Code(s): M86.272 - Subacute osteomyelitis, left ankle and foot (3) 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 Osteomyelitis of fifth metatarsal head and fifth toe proximal phalanx with adjacent delayed healing of chronic ulcer. 2. Osteomyelitis of distal remaining first metatarsal with adjacent delayed healing of chronic ulcer Post-Operative Diagnosis: 1. Osteomyelitis of fifth metatarsal head and fifth toe proximal phalanx with adjacent delayed healing of chronic ulcer. 2. Osteomyelitis of distal remaining first metatarsal with adjacent delayed healing of chronic ulcer Surgery/Procedure Performed:: 1. Right foot fifth ray resection with complex wound closure including bone biopsies. 2. Left foot revisional first ray resection including bone biopsies Description of Surgical Findings:: Hemostasis: Anatomic dissection and electrocauterization. No tourniquet was utilized bilateral Materials: 2-0 Vicryl and 2-0 Prolene Complications: None ski patrol officer: none Type of Anesthesia:: Local MAC - Pre operative: 17 cc of one-to-one mix of 1% lidocaine plain and 0.25% Marcaine plain administered in typical right fifth ray block fashion and proximal left first ray block fashion Specimen's removed: 1. Right foot excised bone sent to pathology. 2. Right foot excised bone sent to microbiology for aerobic, anaerobic, acid-fast, fungal. 3. Left foot excised bone sent to pathology. 4. Left foot excised bone sent to microbiology for aerobic, anaerobic, acid-fast, fungal Estimated Blood Loss (mL): 200 mL Description of Procedure: Indications: This 67-year-old male with significant past medical history of diabetes with neuropathy, sleep apnea, history of kidney injury, and other comorbidities has continued bilateral foot chronic nonhealing ulcers. Recently he had an exacerbation of bilateral foot and leg cellulitis. His x-rays, MRI, and diagnostic data were reviewed. Essentially the MRI demonstrated osteomyelitis focal at the right fifth metatarsal head as well as the adjacent proximal phalanx base. Osteomyelitis was also noted on the left foot distal plantar first metatarsal remaining shaft He had an ESR of 17 and no leukocytosis at the time of surgery. His erythema did demonstrate some decreased activity after being on IV antibiotics for a couple of days. Infectious disease is also on consultation and appreciated. He has failed other traditional wound care treatments including antibiotics, offloading, traditional wound care products, advanced stem cell derived tissue products, nutritional supplementation, and medical management. He is also well known to vascular surgery. He recently had a re-stent procedure for the left lower extremity at the popliteal area. I reviewed the case with Dr. Redding who does not identify a severe vascular compromise to the right lower extremity at this time. There is not a tentative recommended or planned vascular surgery for the right lower extremity. Therefore, this infection management surgical procedure was performed today. The preoperative indications, planned procedure, possible benefits, risks, complications, and anticipated healing time and management were discussed in detail the patient. He understands and elects to proceed with surgery at this time. No guarantees were made. He understands potential complications include but are not limited to the following: infection, swelling, pain, delayed or nonhealing, further infection, blood clot, loss of limb, function, life. The surgical limb and surgical consent were signed. I answered all of his questions. Procedure in detail: The patient was transported to the operating room via cart and placed on the operating table in the supine position. A bump was placed to the right lower extremity to control external rotation to allow good exposure. Final verification of the patient, surgery, and limb designation was performed via the timeout procedure. IV antibiotics are already being administered on the medical floor and additional antibiotics were not administered at this time. MAC anesthesia was initiated by the anesthesia team. Bilateral well-padded tourniquets were placed however it was not deemed necessary and they were not inflated during surgery. Bilateral preoperative local anesthetic was administered by myself as noted. Bilateral lower extremities were prepped and draped in the usual aseptic manner. Surgery began as a following: Attention was first directed to the right foot in which a full-thickness linear incision was made to the lateral dorsal aspect of the foot to excise and remove the fifth toe in total. The chronic devitalized ulceration site was additionally excised. This was removed from the table. The fifth metatarsal head was next identified and freed from adjacent soft tissues. A sagittal saw was utilized to remove the head proximal to the area of the suspected bone infection from the MRI images and also until a clinical clean appearance was noted. The specimen was sent to microbiology and pathology as noted above. Pressure was applied to maintain hemostasis and attention was next directed over to the left foot. Next, two converging elliptical incisions were performed to excise the plantar left foot ulcer and extended dorsally along the dorsal lateral aspect of the remaining first metatarsal shaft. The remaining first metatarsal shaft was identified and good exposure was obtained. A sagittal saw was used to resect and bevel the remaining first metatarsal shaft according to the suspected are of bone infection gathered from the MRI images and clinical appearance. The specimen was sent to microbiology and pathology as noted above. Next, copious saline irrigation was performed to irrigate bilateral lower extremity surgical sites. At this time fresh drapes, gloves, instruments, and saw blades were exchanged in preparation to gather a clean clearance fragment. A clearance fragment of bone was taken from the right remaining fifth metatarsal shaft and the left remaining first metatarsal shaft. These were sent as clearance fragments to both microbiology and pathology as noted above. Pressure was applied to maintain hemostasis and further controlled with minimal use of Vicryl suture and electrocauterization. No pulsatile bleeding was noted and capillary refill time was less than 3 seconds to all aspects of the left transmetatarsal amputation healed stump site, all of the digits of the right foot, and to the dorsal and plantar aspect of the recently performed right fifth ray resection site. At this time, remodeling and debulking at both surgical sites was performed. The skin was reapproximated with vertical mattress, horizontal mattress, simple, and no touch techniques to obtain a non-tensile well approximated closure. An intraoperative fluoroscopy image was obtained to confirm adequate resection at the right fifth metatarsal as well as the left first metatarsal. No acute injuries were noted. A postoperative dressing consisting of Betadine soaked gauze, gauze, abdominal pad, Kerlix, Duane wrap and webril were applied to bilateral lower extremities. After procedure: The patient tolerated the procedure and anesthesia well. He will be transferred back to the progressive care unit upon continued stability. He was advised to ice and elevate bilateral lower extremities for pain and inflammation management. Strict nonweightbearing to both surgical sites was recommended. Postoperative formal x-rays will be ordered. He will continue on IV antibiotics that are currently culture guided. New cultures and pathology specimens were obtained including the infected bone as well as adjacent clearance fragments from each foot. Infectious disease is on consultation and is greatly appreciated. Vascular surgery is also on consult and intervention is appreciated. I recommend nutritional supplementation and further glycemic control to optimize healing. I recommend long term facility placement to optimize healing; he is unable to care for himself properly at home for this condition. Medical management and DVT prophylaxis per primary team is appreciated. His lab trends and specimen results will be followed close. Margaret Thomas DPM [facility] - Admit VTE Documentation VTE Present on Admission: No VTE Mechan Device Prophylaxis: SCD's VTE Pharm Prophylaxis ordered?: Yes 08/10/17 1222 <Electronically signed by Margaret Thomas DPM> Date Margaret Thomas DPM CC: PATRICIA Isabel; Margaret Thomas DPM; Ihsan Pepe MD; Johnathan Batres MD Signed BEDSIDE GLUCOSE Collected: 08/10/2017 Status: F Source: [place] 11:22 AM [facility] [place] TYPE CODE TESTS RESULT OUT OF REFERENCE UNITS RANGE LAB L501.080 70-110 mg/dL Low BEDSIDE GLU 46 Result Comment: MANAGEMENT OF PATIENT CARE PER NURSING PROTOCOL Performed By: #### L501.080 #### [facility] Point of Care [address] [place] [address] BEDSIDE GLUCOSE Collected: 08/10/2017 Status: F Source: [place] 5:58 AM [facility] [place] [facility] TYPE CODE TESTS RESULT OUT OF REFERENCE UNITS RANGE LAB L501.080 70-110 mg/dL High BEDSIDE GLU 111 Result Comment: MANAGEMENT OF PATIENT CARE PER NURSING PROTOCOL Performed By: #### L501.080 #### [facility] Point of Care [address] [place] [address] BEDSIDE GLUCOSE Collected: 08/09/2017 Status: F Source: [place] 9:27 PM [facility] [place] TYPE CODE TESTS RESULT OUT OF REFERENCE UNITS RANGE LAB L501.080 70-110 mg/dL High BEDSIDE GLU 156 Result Comment: MANAGEMENT OF PATIENT CARE PER NURSING PROTOCOL Performed By: #### L501.080 #### [facility] Point of Care [address] [place] [address] BEDSIDE GLUCOSE Collected: 08/09/2017 Status: F Source: [place] 4:47 PM [facility] [place] TYPE CODE TESTS RESULT OUT OF RANGE REFERENCE UNITS LAB L501.080 70-110 mg/dL Normal BEDSIDE GLU 82 Result Comment: Dr Rees Followed MANAGEMENT OF PATIENT CARE PER NURSING PROTOCOL Performed By: #### L501.080 #### [facility] Point of Care [address] [place] [address] BEDSIDE GLUCOSE Collected: 08/09/2017 Status: F Source: [place] 11:25 AM [facility] [place] TYPE CODE TESTS RESULT OUT OF REFERENCE UNITS RANGE LAB L501.080 70-110 mg/dL High BEDSIDE GLU 160 Result Comment: MANAGEMENT OF PATIENT CARE PER NURSING PROTOCOL Performed By: #### L501.080 #### [facility] Point of Care [address] [place] [address] BEDSIDE GLUCOSE Collected: 08/09/2017 Status: F Source: [place] 6:36 AM [facility] [place] TYPE CODE TESTS RESULT OUT OF REFERENCE UNITS RANGE LAB L501.080 70-110 mg/dL High BEDSIDE GLU 291 Result Comment: MANAGEMENT OF PATIENT CARE PER NURSING PROTOCOL Performed By: #### L501.080 #### [facility] Point of Care [address] [place] [address] BEDSIDE GLUCOSE Collected: 08/08/2017 Status: F Source: [place] 9:53 PM [facility] [place] TYPE CODE TESTS RESULT OUT OF REFERENCE UNITS RANGE LAB L501.080 70-110 mg/dL High BEDSIDE GLU 294 Result Comment: MANAGEMENT OF PATIENT CARE PER NURSING PROTOCOL Performed By: #### L501.080 #### [facility] Point of Care [address] [place] [address] BEDSIDE GLUCOSE Collected: 08/08/2017 Status: F Source: [place] 4:36 PM [facility] [place] TYPE CODE TESTS RESULT OUT OF REFERENCE UNITS RANGE LAB L501.080 70-110 mg/dL High BEDSIDE GLU 308 Result Comment: MANAGEMENT OF PATIENT CARE PER NURSING PROTOCOL Performed By: #### L501.080 #### [facility] Point of Care [address] [place] [address] BEDSIDE GLUCOSE Collected: 08/08/2017 Status: F Source: [place] 11:19 AM [facility] [place] TYPE CODE TESTS RESULT OUT OF REFERENCE UNITS RANGE LAB L501.080 70-110 mg/dL High BEDSIDE GLU 376 Result Comment: MANAGEMENT OF PATIENT CARE PER NURSING PROTOCOL Performed By: #### L501.080 #### [facility] Point of Care [address] [place] [address] BEDSIDE GLUCOSE Collected: 08/08/2017 Status: F Source: [place] 6:43 AM [facility] [place] TYPE CODE TESTS RESULT OUT OF REFERENCE UNITS RANGE LAB L501.080 70-110 mg/dL High BEDSIDE GLU 273 Result Comment: MANAGEMENT OF PATIENT CARE PER NURSING PROTOCOL Performed By: #### L501.080 #### [facility] Point of Care [address] [place] [address] BASIC METABOLIC Collected: 08/08/2017 Status: F Source: [place] PROFILE (BMP) 5:05 AM [facility] [place] TYPE CODE TESTS RESULT OUT OF RANGE REFERENCE UNITS LAB L501.0100 74-106 mg/dL High GLU 226 Result Comment: Glucose result greater than or equal to 200 mg/dL suggests DIABETES MELLITUS per A.D.A. criteria. Please note revised GLUCOSE reference range effective 2017. LAB L501.1000 7-18 mg/dL High BUN 42 LAB L501.1100 0.70-1.30 mg/dL Normal CREAT,SERUM 1.27 Result Comment: The validity of the calculated GFR AND GFRAA in patients over 70 years has not been determined. Clinical correlation is essential. LAB L501.1110 >60 mL/min Normal EST GFR 60 Result Comment: Non- GFR Calc LAB L501.1115 >60 mL/min Normal EST GFR - AA 73 Result Comment: GFR Calc LAB L501.1255 ml/min Normal Estimated CRCL 61.76 LAB L501.1300 10-20 RATIO High BUN/CRE 33.1 LAB L501.2200 8.5-10 mg/dL Normal .1 CA 8.6 LAB L501.5300 136-14 mmol/L Normal 5 NA 137 LAB L501.5600 3.5-5. mmol/L Normal 1 K 4.5 LAB L501.5900 98-107 mmol/L Normal CL 100 LAB L501.6100 21.0-3 mmol/L Normal 2.0 CO2 30.0 LAB L501.6200 5-15 Normal GAP 7 Performed By: #### L500.2500 #### [facility] [address] [facility] [place], [address] VANCOMYCIN, TROUGH Collected: 08/08/2017 Status: F Source: [place] LEVEL 5:05 AM [facility] [place] Order Comment: Time Medication is to be Given? 0500 TYPE CODE TESTS RESULT OUT OF REFERENCE UNITS RANGE LAB L501.8820 5.0-15.0 ug/mL High VANCO, TROUGH 26.6 Result Comment: VANCOMYCIN STANDARED DRUG THERAPY TROUGH LEVEL: 5.0 - 15.0 mg/L VANCOMYCIN HIGH INTENSITY THERAPY TROUGH LEVEL: 15.0 - 20.0 mg/L High Intensity therapy recommended for serious life threatening infections include: - Meningitis -Endocarditis -Pneumonia (Ventilator/Healtcare Associated) -Sepsis PLEASE CONTACT PHARMACY SERVICES (#[id number]) FOR INTERPRETATION OF RESULTS. Performed By: #### L501.8820 #### [facility] [address] [place] [address]. [place], [address] BNP,B-TYPE NATRIURETIC Collected: 08/08/2017 Status: F Source: [place] PEPTIDE 5:05 AM [facility] [place] TYPE CODE TESTS RESULT OUT OF RANGE REFERENCE UNITS LAB L503.6620 0-100 pg/mL High B-TYPE 246.2 ZAKI PEP Performed By: #### L503.6620 #### [facility] [address] [facility] [place], [address] BEDSIDE GLUCOSE Collected: 08/07/2017 Status: F Source: [place] 9:31 PM [facility] [place] TYPE CODE TESTS RESULT OUT OF REFERENCE UNITS RANGE LAB L501.080 70-110 mg/dL High BEDSIDE GLU 223 Result Comment: MANAGEMENT OF PATIENT CARE PER NURSING PROTOCOL Performed By: #### L501.080 #### [facility] Point of Care [address] [facility] [place], [place] [address] BEDSIDE GLUCOSE Collected: 08/07/2017 Status: F Source: [place] 6:46 PM [facility] [place] TYPE CODE TESTS RESULT OUT OF REFERENCE UNITS RANGE LAB L501.080 70-110 mg/dL High BEDSIDE GLU 148 Result Comment: MANAGEMENT OF PATIENT CARE PER NURSING PROTOCOL Performed By: #### L501.080 #### [facility] Point of Care [address] [place] [address] BEDSIDE GLUCOSE Collected: 08/07/2017 Status: F Source: [place] 4:44 PM [facility] [place] TYPE CODE TESTS RESULT OUT OF REFERENCE UNITS RANGE LAB L501.080 70-110 mg/dL High BEDSIDE GLU 126 Result Comment: MANAGEMENT OF PATIENT CARE PER NURSING PROTOCOL Performed By: #### L501.080 #### [facility] Point of Care [address] [place] [address] BEDSIDE GLUCOSE Collected: 08/07/2017 Status: F Source: [place] 3:15 PM [facility] [place] TYPE CODE TESTS RESULT OUT OF REFERENCE UNITS RANGE LAB L501.080 70-110 mg/dL High BEDSIDE GLU 118 Result Comment: MANAGEMENT OF PATIENT CARE PER NURSING PROTOCOL Performed By: #### L501.080 #### [facility] Point of Care [address] [place] [address] BEDSIDE GLUCOSE Collected: 08/07/2017 Status: F Source: [place] 11:13 AM [facility] [place] TYPE CODE TESTS RESULT OUT OF REFERENCE UNITS RANGE LAB L501.080 70-110 mg/dL High BEDSIDE GLU 246 Result Comment: MANAGEMENT OF PATIENT CARE PER NURSING PROTOCOL Performed By: #### L501.080 #### [facility] Point of Care [address] [place] [address] BEDSIDE GLUCOSE Collected: 08/07/2017 Status: F Source: [place] 6:24 AM [facility] [place] TYPE CODE TESTS RESULT OUT OF REFERENCE UNITS RANGE LAB L501.080 70-110 mg/dL High BEDSIDE GLU 356 Result Comment: MANAGEMENT OF PATIENT CARE PER NURSING PROTOCOL Performed By: #### L501.080 #### [facility] Point of Care [address] [place] [address] ERYTHROCYTE SED RATE Collected: 08/07/2017 Status: F Source: [place] 5:15 AM [facility] [place] TYPE CODE TESTS RESULT OUT OF RANGE REFERENCE UNITS LAB L102.0000 0-20 mm/hr High SED RATE 51 Performed By: #### L101.9900, L501.6710 #### [facility] [address] [place], [address] CRP Collected: 08/07/2017 Status: F Source: [place] 5:15 AM [facility] [place] TYPE CODE TESTS RESULT OUT OF RANGE REFERENCE UNITS LAB L501.6710 0.0-3.0 mg/L High 17.10 C-REACTIVE PROT Result Comment: C-Reactive Protein (CRP) provides useful information for the diagnosis, therapy and monitoring of inflammatory processes and associated diseases. For the evaluation of Relative Risk for Cardiovascular Disease, a High Sensitivity CRP (HSCRP) should be ordered. Performed By: #### L101.9900, L501.6710 #### [facility] [address] [place] [address]. [place], [address] BEDSIDE GLUCOSE Collected: 08/07/2017 Status: F Source: [place] 2:00 AM [facility] [place] TYPE CODE TESTS RESULT OUT OF REFERENCE UNITS RANGE LAB L501.080 70-110 mg/dL High BEDSIDE GLU 231 Result Comment: MANAGEMENT OF PATIENT CARE PER NURSING PROTOCOL Performed By: #### L501.080 #### [facility] Point of Care [address] [place] [address] BEDSIDE GLUCOSE Collected: 08/06/2017 Status: F Source: [place] 9:04 PM [facility] [place] TYPE CODE TESTS RESULT OUT OF REFERENCE UNITS RANGE LAB L501.080 70-110 mg/dL High BEDSIDE GLU 259 Result Comment: MANAGEMENT OF PATIENT CARE PER NURSING PROTOCOL Performed By: #### L501.080 #### [facility] Point of Care [address] [place] [address] BEDSIDE GLUCOSE Collected: 08/06/2017 Status: F Source: T[place] 5:02 PM [facility] [place] TYPE CODE TESTS RESULT OUT OF REFERENCE UNITS RANGE LAB L501.080 70-110 mg/dL High BEDSIDE GLU 151 Result Comment: MANAGEMENT OF PATIENT CARE PER NURSING PROTOCOL Performed By: #### L501.080 #### [facility] Point of Care [address] [place] [address] BEDSIDE GLUCOSE Collected: 08/06/2017 Status: F Source: [place] 11:08 AM [facility] [place] TYPE CODE TESTS RESULT OUT OF REFERENCE UNITS RANGE LAB L501.080 70-110 mg/dL High BEDSIDE GLU 205 Result Comment: MANAGEMENT OF PATIENT CARE PER NURSING PROTOCOL Performed By: #### L501.080 #### [facility] Point of Care [address] [place] [address] BEDSIDE GLUCOSE Collected: 08/06/2017 Status: F Source: [place] 6:07 AM [facility] [place] TYPE CODE TESTS RESULT OUT OF REFERENCE UNITS RANGE LAB L501.080 70-110 mg/dL High BEDSIDE GLU 135 Result Comment: MANAGEMENT OF PATIENT CARE PER NURSING PROTOCOL Performed By: #### L501.080 #### [facility] Point of Care [address] [place] [address] BEDSIDE GLUCOSE Collected: 08/06/2017 Status: F Source: [place] 2:06 AM [facility] [place] TYPE CODE TESTS RESULT OUT OF REFERENCE UNITS RANGE LAB L501.080 70-110 mg/dL High BEDSIDE GLU 123 Result Comment: MANAGEMENT OF PATIENT CARE PER NURSING PROTOCOL Performed By: #### L501.080 #### [facility] Point of Care [address] [place] [address] BEDSIDE GLUCOSE Collected: 08/05/2017 Status: F Source: [place] 8:42 PM [facility] [place] TYPE CODE TESTS RESULT OUT OF REFERENCE UNITS RANGE LAB L501.080 70-110 mg/dL High BEDSIDE GLU 143 Result Comment: Dr Orders Followed MANAGEMENT OF PATIENT CARE PER NURSING PROTOCOL Performed By: #### L501.080 #### [facility] Point of Care [address] [place] [address] BEDSIDE GLUCOSE Collected: 08/05/2017 Status: F Source: [place] 5:02 PM [facility] [place] TYPE CODE TESTS RESULT OUT OF REFERENCE UNITS RANGE LAB L501.080 70-110 mg/dL High BEDSIDE GLU 124 Result Comment: MANAGEMENT OF PATIENT CARE PER NURSING PROTOCOL Performed By: #### L501.080 #### [facility] Point of Care [address] [place] [address] BEDSIDE GLUCOSE Collected: 08/05/2017 Status: F Source: [place] 11:09 AM [facility] [place] TYPE CODE TESTS RESULT OUT OF REFERENCE UNITS RANGE LAB L501.080 70-110 mg/dL High BEDSIDE GLU 175 Result Comment: MANAGEMENT OF PATIENT CARE PER NURSING PROTOCOL Performed By: #### L501.080 #### [facility] Point of Care [address] [place] [address] BEDSIDE GLUCOSE Collected: 08/05/2017 Status: F Source: [place] 6:58 AM [facility] [place] TYPE CODE TESTS RESULT OUT OF REFERENCE UNITS RANGE LAB L501.080 70-110 mg/dL High BEDSIDE GLU 197 Result Comment: MANAGEMENT OF PATIENT CARE PER NURSING PROTOCOL Performed By: #### L501.080 #### [facility] Point of Care [address] [place] [address] BEDSIDE GLUCOSE Collected: 08/05/2017 Status: F Source: [place] 2:26 AM [facility] [place] TYPE CODE TESTS RESULT OUT OF REFERENCE UNITS RANGE LAB L501.080 70-110 mg/dL High BEDSIDE GLU 175 Result Comment: MANAGEMENT OF PATIENT CARE PER NURSING PROTOCOL Performed By: #### L501.080 #### [facility] Point of Care [address] [place] [address] BEDSIDE GLUCOSE Collected: 08/04/2017 Status: F Source: [place] 9:06 PM [facility] [place] TYPE CODE TESTS RESULT OUT OF RANGE REFERENCE UNITS LAB L501.080 70-110 mg/dL Normal BEDSIDE GLU 108 Result Comment: MANAGEMENT OF PATIENT CARE PER NURSING PROTOCOL Performed By: #### L501.080 #### [facility] Point of Care [address] [place] [address] BEDSIDE GLUCOSE Collected: 08/04/2017 Status: F Source: [place] 6:15 PM [facility] [place] TYPE CODE TESTS RESULT OUT OF REFERENCE UNITS RANGE LAB L501.080 70-110 mg/dL High BEDSIDE GLU 160 Result Comment: MANAGEMENT OF PATIENT CARE PER NURSING PROTOCOL Performed By: #### L501.080 #### [facility] Point of Care [address] [place] [address] BEDSIDE GLUCOSE Collected: 08/04/2017 Status: F Source: [place] 5:08 PM [facility] [place] TYPE CODE TESTS RESULT OUT OF RANGE REFERENCE UNITS LAB L501.080 70-110 mg/dL Normal BEDSIDE GLU 93 Result Comment: Dr Rees Followed MANAGEMENT OF PATIENT CARE PER NURSING PROTOCOL Performed By: #### L501.080 #### [facility] Point of Care [address] [place] [address] BEDSIDE GLUCOSE Collected: 08/04/2017 Status: F Source: [place] 11:23 AM [facility] [place] TYPE CODE TESTS RESULT OUT OF REFERENCE UNITS RANGE LAB L501.080 70-110 mg/dL High BEDSIDE GLU 140 Result Comment: MANAGEMENT OF PATIENT CARE PER NURSING PROTOCOL Performed By: #### L501.080 #### [facility] Point of Care [address] [place], [place] [address] BEDSIDE GLUCOSE Collected: 08/04/2017 Status: F Source: [place] 6:28 AM [facility] [place] TYPE CODE TESTS RESULT OUT OF REFERENCE UNITS RANGE LAB L501.080 70-110 mg/dL High BEDSIDE GLU 196 Result Comment: MANAGEMENT OF PATIENT CARE PER NURSING PROTOCOL Performed By: #### L501.080 #### [facility] Point of Care [address] [place] [address] CBC W/DIFF, AUTOMATED Collected: 08/04/2017 Status: F Source: [place] 5:05 AM [facility] [place] TYPE CODE TESTS RESULT OUT OF RANGE REFERENCE UNITS LAB L100.1000 4.4-11.0 K/mm3 High WBC 11.1 LAB L100.1200 4.6-6.2 M/mm3 Low RBC 3.97 LAB L100.1300 13.0-16.5 g/dl Low HGB 11.9 LAB L100.1400 40-54 % Low HCT 35.1 LAB L100.1500 80-94 fL Normal MCV 88.4 LAB L100.1600 27.0-32.0 pg Normal MCH 30.0 LAB L100.1700 32-36 g/gl Normal MCHC 33.9 LAB L100.1810 11.6-14.6 % Normal RDW CV 14.5 LAB L100.1820 35.1-43.9 fl High RDW SD 45.8 LAB L100.1900 150-450 K/mm3 Normal PLT 318 LAB L100.2000 6.2-12.0 fl Normal MPV 9.8 LAB L100.2100 47-70 % High NEUT% 70.3 LAB L100.2200 19-41 % Low LY% 12.4 LAB L100.2300 0-10 % Normal MONO% 10.0 LAB L100.2400 0-5 % High EO% 6.1 LAB L100.2500 0-1 % Normal BASO% 0.5 LAB L100.2550 0.0-0.9 % Normal IM GRAN % 0.700 Result Comment: IG% - Immature Granulocytes (promyelocytes, myelocytes and metamyelocytes) > 1% indicates that a LEFT SHIFT is Present. LAB L100.2620 2.0-7.7 X10 3/uL High Absolute Neut 7.8 LAB L100.2720 0.83-4.51 X10 3/ul Normal Absolute Lymph 1.38 Performed By: #### L100.0100 #### [facility] [place], [address] BASIC METABOLIC Collected: 08/04/2017 Status: F Source: [place] PROFILE ([facility]) 5:05 AM [facility] [place] TYPE CODE TESTS RESULT OUT OF RANGE REFERENCE UNITS LAB L501.0100 74-106 mg/dL High GLU 197 Result Comment: Fasting Glucose result greater than or equal to 126 mg/dL suggests DIABETES MELLITUS per A.D.A. criteria. Please note revised GLUCOSE reference range effective 2017. LAB L501.1000 7-18 mg/dL High BUN 51 LAB L501.1100 0.70-1.30 mg/dL Normal CREAT,SERUM 1.13 Result Comment: The validity of the calculated GFR AND GFRAA in patients over 70 years has not been determined. Clinical correlation is essential. LAB L501.1110 >60 mL/min Normal EST GFR 69 Result Comment: Non- GFR Calc LAB L501.1115 >60 mL/min Normal EST GFR - AA 84 Result Comment: GFR Calc LAB L501.1255 ml/min Normal Estimated CRCL 69.41 LAB L501.1300 10-20 RATIO High BUN/CRE 45.1 LAB L501.2200 8.5-10 mg/dL Low .1 CA 8.1 LAB L501.5300 136-14 mmol/L Normal 5 NA 140 LAB L501.5600 3.5-5. mmol/L Normal 1 K 4.5 LAB L501.5900 98-107 mmol/L Normal CL 102 LAB L501.6100 21.0-3 mmol/L Normal 2.0 CO2 31.0 LAB L501.6200 5-15 Normal GAP 7 Performed By: #### L500.2500 #### [facility] [address] [facility] [address] BEDSIDE GLUCOSE Collected: 08/04/2017 Status: F Source: [place] 1:57 AM [facility] [place] TYPE CODE TESTS RESULT OUT OF REFERENCE UNITS RANGE LAB L501.080 70-110 mg/dL High BEDSIDE GLU 160 Result Comment: MANAGEMENT OF PATIENT CARE PER NURSING PROTOCOL Performed By: #### L501.080 #### [facility] Point of Care [address] [place] [address] BEDSIDE GLUCOSE Collected: 08/03/2017 Status: F Source: [place] 9:02 PM [facility] [place] TYPE CODE TESTS RESULT OUT OF REFERENCE UNITS RANGE LAB L501.080 70-110 mg/dL High BEDSIDE GLU 129 Result Comment: MANAGEMENT OF PATIENT CARE PER NURSING PROTOCOL Performed By: #### L501.080 #### [facility] Point of Care [address] [place] [address] DISCHARGE SUMMARY Observed: 08/03/2017 Status: F Source: [place] 5:54 PM [facility] [place] [facility] Medical Records Department [address] [place] [id number]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 [facility] Point of Care [address] [place] [address] 24 HR UR CREATININE Collected: 08/01/2017 Status: F Source: [place] 7:50 AM [facility] [place] [facility] TYPE CODE TESTS RESULT OUT OF RANGE REFERENCE UNITS LAB L501.0050 24.0 HOURS Normal UR COLLECT 24.0 TIME LAB L501.0075 mL Normal UR TOTAL 2825 VOLUME LAB L501.1050 0.8-1.3 mg/dL Normal SERUM CREAT 1.3 LAB L501.1110 >60 mL/min Normal EST GFR 61 Result Comment: Non- GFR Calc LAB L501.1115 >60 mL/min Normal EST GFR - AA 74 Result Comment: GFR Calc LAB L501.1150 NO RANGE mg/dL EST. URINE Normal CREAT 49.9 LAB L501.1250 100-200 ml/min Low CREAT CLEARANCE 78 Performed By: #### L500.4507 #### [facility] [address] [place], [place], [address] BEDSIDE GLUCOSE Collected: 08/01/2017 Status: F Source: [place] 6:57 AM [facility] [place] [facility] TYPE CODE TESTS RESULT OUT OF REFERENCE UNITS RANGE LAB L501.080 70-110 mg/dL High BEDSIDE GLU 246 Result Comment: MANAGEMENT OF PATIENT CARE PER NURSING PROTOCOL Performed By: #### L501.080 #### [facility] Point of Care [address] [place] [address] BEDSIDE GLUCOSE Collected: 07/31/2017 Status: F Source: [place] 10:05 PM [facility] [place] [facility] TYPE CODE TESTS RESULT OUT OF REFERENCE UNITS RANGE LAB L501.080 70-110 mg/dL High BEDSIDE GLU 279 Result Comment: MANAGEMENT OF PATIENT CARE PER NURSING PROTOCOL Performed By: #### L501.080 #### [facility] Point of Care [address] [place] [address] BEDSIDE GLUCOSE Collected: 07/31/2017 Status: F Source: [place] 5:49 PM [facility] [place] TYPE CODE TESTS RESULT OUT OF REFERENCE UNITS RANGE LAB L501.080 70-110 mg/dL High BEDSIDE GLU 187 Result Comment: MANAGEMENT OF PATIENT CARE PER NURSING PROTOCOL Performed By: #### L501.080 #### [facility] Point of Care [address] [place] [address] FOOT MIN 3 VIEWS Observed: 07/31/2017 Status: F Source: [place] 5:13 PM [facility] [facility] Imaging Services [address] [place] [address] Foot min 3 Views MR#: [id number] Acct: [id number] Name: FADI ALCANTAR Rep #: [id number] : 1950 M 67 From: Cecilia Burgos MD PCP: Medardo PELAEZ,Johnathan English Status: ADM IN Study: Foot min 3 Views Date of Exam: 07/31/17 Exam# [id number] Ordering Dr: Margaret Thomas DPM STUDY: X-RAY - RIGHT FOOT CLINICAL: Male, 67 years old. Postop status post fifth ray resection TECHNIQUE: 3 view(s) of the foot. COMPARISON: None. FINDINGS: Postsurgical changes along the resection site. There is atherosclerosis. Normal talus, calcaneus, and tarsal bones. Normal visualized subtalar, talonavicular, calcaneocuboid, tarsal and tarsometatarsal articulations. Otherwise normal metatarsi. Normal metatarsophalangeal joint of the great toe. Normal tibial and fibular sesamoid bones. Normal interphalangeal joint of the great toe. Normal phalanges of the great toe. Normal second through fifth metatarsophalangeal joints. Proximal second phalanx with healed fracture deformity. Otherwise normal interphalangeal joints and phalanges of the lesser toes. RAD/Foot min 3 Views IMPRESSION: Postsurgical changes without complications. Electronically Signed: Cecilia Burgos MD at 0:22 EST , Service support , CC: Margaret Thomas DPM; Johnathan Batres MD Inbound Sales Manager: Signed FOOT MIN 3 VIEWS Observed: 07/31/2017 Status: F Source: [place] 5:13 PM [facility] Imaging Services [address] [place] [address] [place] [address] Foot min 3 Views MR#: [id number] Acct: [id number] Name: FADI ALCANTAR Rep #: [id number] : 1950 67 From: Cecilia Burgos MD PCP: Johnathan Batres MD, Chi Status: ADM IN Study: Foot min 3 Views Date of Exam: 07/31/17 Exam# [id number] Ordering Dr: Margaret Thomas DPM STUDY: X-RAY - LEFT FOOT CLINICAL: Male, 67 years old. Postop status post first ray resection TECHNIQUE: 4 view(s) of the foot. COMPARISON: 07/28/2017 FINDINGS: Additional resection performed along the first proximal metatarsal with postsurgical soft tissue changes. There is generalized osteopenia of the midfoot. Normal talus, calcaneus, and tarsal bones. Age-appropriate visualized subtalar, talonavicular, calcaneocuboid, tarsal and tarsometatarsal articulations. Amputation along the proximal first through fifth metatarsi. There is arteriosclerosis. RAD/Foot min 3 Views IMPRESSION: Additional resection along the first proximal phalanx with postsurgical changes. Electronically Signed: Cecilia Burgos MD at 0:25 EST , Service support , CC: Margaret Thomas DPM; Johnathan Batres MD Inbound Sales Manager: Signed Observed: 07/31/2017 Status: F Source: [facility], DEEP WOUND 4:04 PM [facility] [place] Order Date: 01/10/17 Comments: LEFT BONE CLEARANCE FRAGMENT Gram Stain Gram Stain 2+ Red Blood Cells Red Cell Stroma No organisms seen Wound Culture #2 There are no CLSI standards for interpretation of this Drug/Organism combination. ORGANISM 1: Serratia marcescens Amount Growth Very Rare ORGANISM 2: Corynebacterium striatum Amount Growth Very Rare ORGANISM 3: Staphylococcus hominis hominis Amount Growth Very Rare Serratia marcescens: REACTION Amoxacillin/Clavulanic Acid $ >=32 R Cefazolin $ >=64 R Cefepime $ <=1 S Ceftriaxone $ <=1 S Ciprofloxacin $ 1 S Ertapenim $$$ <=0.5 S Gentamicin $ <=1 S Levofloxacin $ 1 S Tobramycin $ 2 S Trimethoprim/Sulfametho $ <=20 S (NF) indicates non-formulary drug at [facility]. Approval by Infectious Disease Specialist required before non-formulary drugs may be ordered and/or dispensed. Staphylococcus hominis hominis: REACTION Benzylpenicillin NF >=0.5 R Cefoxitin *NF + Clindamycin $$ <=0.25 S Inducable Clindamycin Resistan - Erythromycin $ >=8 R Gentamicin $ <=0.5 S Levofloxacin $ >=8 R Oxacillin NF >=4 R Tigecycline $$$$ <=0.12 S Rifampin $$ <=0.5 S Tetracycline NF <=1 S Vancomycin $ 1 S (NF) indicates non-formulary drug at [facility]. Approval by Infectious Disease Specialist required before non-formulary drugs may be ordered and/or dispensed. * CLSI guidelines does not recommend testing of cephalosporins. This interpretation is deduced from Beta-lactam/penicillin results. Cult, Anaerobic No anaerobic bacteria isolated. Performed By: #### M100.1500 #### [facility] [address] [place], [address] Observed: 07/31/2017 Status: F Source: [place] [facility], DEEP WOUND 3:55 PM [facility] [place] [facility] Order Date: 01/10/17 Comments: RIGHT METATARSAL BONE Gram Stain Gram Stain 1+ Red Blood Cells No organisms seen Wound Culture No growth aerobically. Cult, Anaerobic No anaerobic bacteria isolated. Performed By: #### M100.1500 #### [facility] [address] [place], [address] Observed: 07/31/2017 Status: F Source: [place] CULTURE, DEEP WOUND 3:55 PM [facility] Order Date: 01/10/17 Comments: LEFT BONE, FOOT Gram Stain Gram Stain 3+ Red Blood Cells Rare White Blood Cells No organisms seen Wound Culture #2 There are no CLSI standards for interpretation of this Drug/Organism combination. ORGANISM 1: Serratia marcescens Amount Growth Very Rare ORGANISM 2: Corynebacterium striatum Amount Growth Very Rare Serratia marcescens: REACTION Amoxacillin/Clavulanic Acid $ >=32 R Cefazolin $ >=64 R Cefepime $ <=1 S Ceftriaxone $ <=1 S Ciprofloxacin $ 1 S Ertapenim $$$ <=0.5 S Gentamicin $ <=1 S Levofloxacin $ 1 S Tobramycin $ 2 S Trimethoprim/Sulfametho $ <=20 S (NF) indicates non-formulary drug at [facility]. Approval by Infectious Disease Specialist required before non-formulary drugs may be ordered and/or dispensed. Cult, Anaerobic No anaerobic bacteria isolated. Performed By: #### M100.1500 #### [facility] [address] [place], [place], [address] Observed: 07/31/2017 Status: F Source: [place] CULTURE, DEEP WOUND 3:55 PM [facility] [place] Order Date: 01/10/17 Comments: RIGHT BONE CLEARANCE FRAGMENT Gram Stain Gram Stain 2+ Red Blood Cells No organisms seen Wound Culture #2 There are no CLSI standards for interpretation of this Drug/Organism combination. ORGANISM 1: Staphylococcus hominis hominis Amount Growth Very Rare ORGANISM 2: Corynebacterium striatum Amount Growth Very Rare Staphylococcus hominis hominis: REACTION Benzylpenicillin NF >=0.5 R Cefoxitin *NF + Clindamycin $$ <=0.25 S Inducable Clindamycin Resistan - Erythromycin $ >=8 R Gentamicin $ <=0.5 S Levofloxacin $ >=8 R Oxacillin NF >=4 R Tigecycline $$$$ <=0.12 S Rifampin $$ <=0.5 S Tetracycline NF <=1 S Vancomycin $ 1 S (NF) indicates non-formulary drug at [facility]. Approval by Infectious Disease Specialist required before non-formulary drugs may be ordered and/or dispensed. * CLSI guidelines does not recommend testing of cephalosporins. This interpretation is deduced from Beta-lactam/penicillin results. Cult, Anaerobic No anaerobic bacteria isolated. Performed By: #### M100.1500 #### [facility] [address] [place], [address] [employer] Observed: 07/31/2017 Status: F Source: [place] CULT/SMEAR [id number] 3:55 PM [facility] [place] Comments: RIGHT BONE CLEARANCE FRAGMENT AFB Smear/Fluor TESTING PERFORMED AT [facility]. ORIGINAL REPORT ON FILE IN LAB CONTAINS ADDITIONAL TEST SITE INFORMATION. Smear, Acid Fast Tissue Grinding Smear: Negative AFB Cult [facility] ORIGINAL REPORT ON FILE IN LAB CONTAINS ADDITIONAL TEST SITE INFORMATION. Culture, Acid Fast NO ACID-FAST BACILLI ISOLATED AFTER 6 WEEKS. Performed By: #### M100.3880 #### [facility] [address] [place], [address] Observed: 07/31/2017 Status: F Source: [place] SKINNER, FUNGUS W/ 3:55 PM [facility] [id number] REPOSITORY Comments: RIGHT BONE CLEARANCE FRAGMENT Is this test to exclude patient from TB Isolation? N Cu,[id number] TESTING PERFORMED AT [facility]. ORIGINAL REPORT ON FILE IN LAB CONTAINS ADDITIONAL TEST SITE INFORMATION. CUF No yeast or mold isolated after [address] TESTING PERFORMED AT [facility]. ORIGINAL REPORT ON FILE IN LAB CONTAINS ADDITIONAL TEST SITE INFORMATION. Fungus Stain No yeast or mold observed. Performed By: #### M600.1900 #### [facility] [address] [place], [address] [employer] Observed: 07/31/2017 Status: F Source: [place] CULT/SMEAR [id number] [facility] Comments: [place] BONE CLEARANCE FRAGMENT AFB Smear/Fluor TESTING PERFORMED AT [facility]. ORIGINAL REPORT ON FILE IN LAB CONTAINS ADDITIONAL TEST SITE INFORMATION. Smear, Acid Fast Tissue Grinding Smear: Negative AFB Cult TESTING PERFORMED AT [facility]. ORIGINAL REPORT ON FILE IN LAB CONTAINS ADDITIONAL TEST SITE INFORMATION. Culture, Acid Fast NO ACID-FAST BACILLI ISOLATED AFTER 6 WEEKS. Performed By: #### M100.3880 #### [facility] [address] [place], [address] Observed: 07/31/2017 Status: F Source: [place]UNO[place] W/ 3:55 PM [facility] [id number] REPOSITORY Comments: LEFT BONE CLEARANCE FRAGMENT Is this test to exclude patient from TB Isolation? N Gunner,[id number] TESTING PERFORMED AT [facility]. ORIGINAL REPORT ON FILE IN LAB CONTAINS ADDITIONAL TEST SITE INFORMATION. CUF No yeast or mold isolated after [address] TESTING PERFORMED AT [facility]. ORIGINAL REPORT ON FILE IN LAB CONTAINS ADDITIONAL TEST SITE INFORMATION. Fungus Stain No yeast or mold observed. Performed By: #### M600.1900 #### [facility] [address] [place], [place] [address] [place], [address] [employer] Observed: 07/31/2017 Status: F Source: [place] CULT/SMEAR [id number] 3:55 PM [facility] Comments: LEFT BONE,FOOT AFB Smear/Fluor TESTING PERFORMED AT [facility]. ORIGINAL REPORT ON FILE IN LAB CONTAINS ADDITIONAL TEST SITE INFORMATION. Smear, Acid Fast Tissue Grinding Smear: Negative AFB Cult TESTING PERFORMED AT [facility]. ORIGINAL REPORT ON FILE IN LAB CONTAINS ADDITIONAL TEST SITE INFORMATION. Culture, Acid Fast NO ACID-FAST BACILLI ISOLATED AFTER 6 WEEKS. Performed By: #### M100.3880 #### [facility] [address] [place], [address] Observed: 07/31/2017 Status: F Source: [place] SKIN[place] FUNGUS W/ 3:55 PM [facility] [id number] REPOSITORY Comments: LEFT BONE,FOOT Is this test to exclude patient from TB Isolation? N Cu,[id number] TESTING PERFORMED AT [facility]. ORIGINAL REPORT ON FILE IN LAB CONTAINS ADDITIONAL TEST SITE INFORMATION. CUF No yeast or mold isolated after [address] TESTING PERFORMED AT [facility]. ORIGINAL REPORT ON FILE IN LAB CONTAINS ADDITIONAL TEST SITE INFORMATION. Fungus Stain No yeast or mold observed. Performed By: #### M600.1900 #### [facility] [address] [place], [address] [employer] Observed: 07/31/2017 Status: F Source: [place] CULT/SMEAR [id number] 3:55 PM [facility] Comments: RIGHT METATARSAL BONE AFB Smear/Fluor TESTING PERFORMED AT [facility]. ORIGINAL REPORT ON FILE IN LAB CONTAINS ADDITIONAL TEST SITE INFORMATION. Smear, Acid Fast Acid Fast Smear from Concentrated Specimen :Negative AFB Cult [facility] ORIGINAL REPORT ON FILE IN LAB CONTAINS ADDITIONAL TEST SITE INFORMATION. Culture, Acid Fast NO ACID-FAST BACILLI ISOLATED AFTER 6 WEEKS. Performed By: #### M100.3880 #### [facility] [address] [facility] [place] [address] Observed: 07/31/2017 Status: F Source: CHRISTIANO MUNOZ W/ 3:55 PM [facility] [id number] REPOSITORY Comments: RIGHT METATARSAL BONE Is this test to exclude patient from TB Isolation? Emeka [id number] [facility]. ORIGINAL REPORT ON FILE IN LAB CONTAINS ADDITIONAL TEST SITE INFORMATION. CUF No yeast or mold isolated after [address] TESTING PERFORMED AT [facility]. ORIGINAL REPORT ON FILE IN LAB CONTAINS ADDITIONAL TEST SITE INFORMATION. Fungus Stain No yeast or mold observed. Performed By: #### M600.1900 #### [facility] [address] [place], [address] BONE (FX/NONFRACTURE) Observed: 07/31/2017 Status: F Source: [place] 3:00 PM [facility] Patient: FADI ALCANTAR : 1950 (67/M) Acct Num: [id number] Phys: Reggie Persaud MD Unit Num: [id number] Loc: U [id number] Specimen: [id number] Received: 08/01/171455 Spec Type: Bone TISSUES TISSUES: A. Bone of foot, NOS B. Bone of foot, NOS C. Bone of foot, NOS D. Bone of foot, NOS GROSS DESCRIPTION A - Received in fixative is one container labeled with the patient's name and designated right metatarsal bone. The specimen consists of a distal toe with skin, nail and bone measuring 4.5 x 2.5 x 2 cm. Also present in the specimen container is a separate fragment of bone measuring 2.5 x 1.5 x 1 cm. Also present in the specimen container is an irregular fragment of skin with attached soft tissue measuring 3 x 1.5 x 0.6 cm and contains a central hole/defect. The segment with toe is grossly unremarkable. [employer] sections from all fragments are submitted in two cassettes as follows: 1 skin, 2 distal toe and separate fragment of bone after decalcification. B - Received in fixative is one container labeled with the patient's name and designated left bone foot. The specimen consists of multiple irregular fragments of dark her bone ranging in size from 0.5 to 2.5 cm. Also present in the specimen container is an irregular fragment of skin measuring 2.8 x 1.5 x 0.8 cm. [employer] sections are submitted in two cassettes as follows: 1 skin and soft tissue, 2 bone after decalcification. C - Received in fixative is one container labeled with the patient's name and designated left bone clearance fragment. The specimen consists of two irregular fragments dark her bone that in aggregate measure 1.5 x 1.3 x 0.2 cm. The specimen is totally submitted in one cassette after decalcification. D - Received in fixative is one container labeled with the patient's name and designated right bone clearance fragment. The specimen consists of an irregular fragment of dark her bone measuring 1.5 x 0.6 x 0.2 cm. The specimen is totally submitted in one cassette after decalcification. / AM:uma 08/01/17 TC:2 CPT: 23668, 98777 x3, 93746 x2, 53612 x4 HEADER OPERATION: Foot, fifth metatarsal, ray resection, left foot bone biopsy PRE-OP DIAGNOSIS: Osteomyelitis bilateral feet TISSUE SUBMITTED: A Right metatarsal bone, B Left bone foot, C Left bone clearance fragment, D Right bone clearance fragment MICROSCOPIC DESCRIPTION Slides are reviewed. MICROSCOPIC DIAGNOSIS A. Right metatarsal bone and toe: Focal ulceration, acute inflammation and granulation tissue reaction. Special stains for acid fast bacilli and fungi are negative for organisms; matched controls are appropriate. Bone, negative for acute osteomyelitis. B. Left foot bone: Chronic inflammation and reactive changes. Bone, negative for acute osteomyelitis. C. Left bone, clearance fragment: Pieces of bone, negative for acute osteomyelitis. D. Right bone, clearance fragment: A piece of bone, negative for acute osteomyelitis. SJ:uma 08/09/17 Signed Franco Montero 08/09/17 <signature on file> Performed By: #### PBON #### [facility] [address] [place], [address] Observed: 07/31/2017 Status: F Source: [place] CDIFF (MOLECULAR) 2:30 PM [facility] Cdiff-Molecular C. Diff DNA Negative- No toxigenic C. Diff DNA Detected NAAT METHOD Testing was performed using nucleic acid amplification Performed By: #### M100.6796 #### [facility] [address] [place], [address] BEDSIDE GLUCOSE Collected: 07/31/2017 Status: F Source: [place] 11:41 AM [facility] TYPE CODE TESTS RESULT OUT OF REFERENCE UNITS RANGE LAB L501.080 70-110 mg/dL High BEDSIDE GLU 234 Result Comment: MANAGEMENT OF PATIENT CARE PER NURSING PROTOCOL Performed By: #### L501.080 #### [facility] Point of Care [address] [place] [address] BEDSIDE GLUCOSE Collected: 07/31/2017 Status: F Source: [place] 6:44 AM [facility] TYPE CODE TESTS RESULT OUT OF REFERENCE UNITS RANGE LAB L501.080 70-110 mg/dL High BEDSIDE GLU 186 Result Comment: MANAGEMENT OF PATIENT CARE PER NURSING PROTOCOL Performed By: #### L501.080 #### [facility] Point of Care [address] [place], [place] [address] CBC W/DIFF, AUTOMATED Collected: 07/31/2017 Status: F Source: [place] 5:53 AM [facility] TYPE CODE TESTS RESULT OUT OF RANGE REFERENCE UNITS LAB L100.1000 4.4-11.0 K/mm3 Normal WBC 7.1 LAB L100.1200 4.6-6.2 M/mm3 Normal RBC 4.90 LAB L100.1300 13.0-16.5 g/dl Normal HGB 14.3 LAB L100.1400 40-54 % Normal HCT 43.1 LAB L100.1500 80-94 fL Normal MCV 88.0 LAB L100.1600 27.0-32.0 pg Normal MCH 29.2 LAB L100.1700 32-36 g/gl Normal MCHC 33.2 LAB L100.1810 11.6-14.6 % High RDW CV 14.8 LAB L100.1820 35.1-43.9 fl High RDW SD 47.0 LAB L100.1900 150-450 K/mm3 Normal PLT 294 LAB L100.2000 6.2-12.0 fl Normal MPV 10.3 LAB L100.2100 47-70 % Normal NEUT% 64.0 LAB L100.2200 19-41 % Normal LY% 21.1 LAB L100.2300 0-10 % Normal MONO% 9.4 LAB L100.2400 0-5 % Normal EO% 4.1 LAB L100.2500 0-1 % Normal BASO% 1.0 LAB L100.2550 0.0-0.9 % Normal IM GRAN % 0.400 Result Comment: IG% - Immature Granulocytes (promyelocytes, myelocytes and metamyelocytes) > 1% indicates that a LEFT SHIFT is Present. LAB L100.2620 2.0-7.7 X10 3/uL Normal Absolute Neut 4.6 LAB L100.2720 0.83-4.51 X10 3/ul Normal Absolute Lymph 1.51 Performed By: #### L100.0100, L500.2500, L501.9520 #### [facility] [address] [place], [address] BASIC METABOLIC Collected: 07/31/2017 Status: F Source: [place] PROFILE ([facility]) 5:53 AM [facility] TYPE CODE TESTS RESULT OUT OF RANGE REFERENCE UNITS LAB L501.0100 74-106 mg/dL High GLU 196 Result Comment: Fasting Glucose result greater than or equal to 126 mg/dL suggests DIABETES MELLITUS per A.D.A. criteria. Please note revised GLUCOSE reference range effective 2017. LAB L501.1000 7-18 mg/dL High BUN 32 LAB L501.1100 0.70-1.30 mg/dL Normal CREAT,SERUM 1.26 Result Comment: The validity of the calculated GFR AND GFRAA in patients over 70 years has not been determined. Clinical correlation is essential. LAB L501.1110 >60 mL/min Normal EST GFR 61 Result Comment: Non- GFR Calc LAB L501.1115 >60 mL/min Normal EST GFR - AA 74 Result Comment: GFR Calc LAB L501.1255 ml/min Normal Estimated CRCL 62.25 LAB L501.1300 10-20 RATIO High BUN/CRE 25.4 LAB L501.2200 8.5-10 mg/dL Normal .1 CA 8.6 LAB L501.5300 136-14 mmol/L Normal 5 NA 136 LAB L501.5600 3.5-5. mmol/L Normal 1 K 4.1 LAB L501.5900 98-107 mmol/L Normal CL 101 LAB L501.6100 21.0-3 mmol/L Normal 2.0 CO2 28.0 LAB L501.6200 5-15 Normal GAP 7 Performed By: #### L100.0100, L500.2500, L501.9520 #### [facility] [address] [facility] [place], [address] THYROID STIM HORMONE Collected: 07/31/2017 Status: F Source: [place] ([facility]) 5:53 AM [facility] TYPE CODE TESTS RESULT OUT OF RANGE REFERENCE UNITS LAB L501.9520 0.358-3.74 uIU/mL Normal TSH 1.58 Performed By: #### L100.0100, L500.2500, L501.9520 #### [facility] [address] [facility] [place], [address] HEMOGLOBIN A1C Collected: 07/31/2017 Status: F Source: [place] 5:53 AM [facility] TYPE CODE TESTS RESULT OUT OF RANGE REFERENCE UNITS LAB L501.9985 4.2-6.3 % High HGB A1C 9.7 Performed By: #### L501.9985 #### [facility] [address] [place], [address] BEDSIDE GLUCOSE Collected: 07/30/2017 Status: F Source: [place] 9:11 PM [facility] TYPE CODE TESTS RESULT OUT OF REFERENCE UNITS RANGE LAB L501.080 70-110 mg/dL High BEDSIDE GLU 194 Result Comment: MANAGEMENT OF PATIENT CARE PER NURSING PROTOCOL Performed By: #### L501.080 #### [facility] Point of Care [address] [place] [address] BEDSIDE GLUCOSE Collected: 07/30/2017 Status: F Source: [place] 5:13 PM [facility] TYPE CODE TESTS RESULT OUT OF REFERENCE UNITS RANGE LAB L501.080 70-110 mg/dL High BEDSIDE GLU 198 Result Comment: MANAGEMENT OF PATIENT CARE PER NURSING PROTOCOL Performed By: #### L501.080 #### [facility] Point of Care [address] [place] [address] FOOT 2 VIEWS Observed: 07/30/2017 Status: F Source: [place] 2:34 PM [facility] Imaging Services [address] [place] [address] Foot 2 Views MR#: [id number] Acct: [id number] Name: FADI ALCANTAR Rep #: [id number] : 1950 M 67 From: Jaqui Ga MD PCP: Johnathan Batres MD, Chi Status: ADM IN Study: Foot 2 Views Date of Exam: 07/31/17 Exam# [id number] Ordering Dr: Margaret Thomas DPM STUDY: Fluoroscopy- RIGHT FOOT CLINICAL: Male, 67 years old. Resection fifth metatarsal TECHNIQUE: 2 view(s) of the foot. COMPARISON: None. FINDINGS: There are limited 2 images provided. There is a soft tissue defect and visualization of an amputated fifth digit at the fifth metatarsal. RAD/Foot 2 Views IMPRESSION: Post resection. Fifth Metatarsal. Electronically Signed: Jaqui Ga MD at 17:05 EST Tel , Service support , CC: Margaret Thomas DPM; Johnathan Batres MD Inbound Sales Manager: Signed 12 LEAD ELECTROCARDIOGRAM Observed: 07/30/2017 Status: F Source: [place] 12:55 PM [facility] Cardiovascular Services [address] [place] [address] 12 Lead EKG 07/27/17 1613 MR#: [id number] Acct: [id number] Name: FADI ALCANTAR E Rep #: [id number] : 1950 67 From: Ady Chung MD Attending Dr: Hung PELAEZ,[facility] Status: ADM IN Ordering Dr: Zohaib [place] MD Date: 07/27/17 Location: [facility] Sex: M C Admitted: 07/27/17 Test Reason : Blood Pressure : / mmHG Vent. Rate : 079 BPM Atrial Rate : 079 BPM P-R Int : 216 ms QRS Dur : 150 ms QT Int : 416 ms P-R-T Axes : 047 106 231 degrees QTc Int : 477 ms Sinus rhythm with 1st degree A-V block Right bundle branch block T wave abnormality, consider lateral ischemia Abnormal ECG Confirmed by VINH PELAEZ, ADY ([id number]), department editor SONAM BAILON ([id number]) on 07/30/2017 12:54:55 PM Referred By: Florencio Redding Confirmed By:ADY CHUNG MD 07/30/17 1254 Date Ady Chung MD CC: Zohaib [place] MD; Johnathan Batres MD Signed BEDSIDE GLUCOSE Collected: 07/30/2017 Status: F Source: [place] 12:25 PM [facility] TYPE CODE TESTS RESULT OUT OF REFERENCE UNITS RANGE LAB L501.080 70-110 mg/dL High BEDSIDE GLU 193 Result Comment: MANAGEMENT OF PATIENT CARE PER NURSING PROTOCOL Performed By: #### L501.080 #### [facility] Point of Care [address] [place] [address] CONSULTATION Observed: 07/30/2017 Status: F Source: [place] 11:14 AM [facility] Medical Records Department [address] [place] [address] Consultation 07/30/17 1107 MR#: [id number] Acct: [id number] Name: FADI ALCNATAR E Rep #: [id number] : 1950 67 From: Ihsan Pepe MD PCP: Medardo PELAEZ,Johnathan English Status: ADM IN Y Location: [place] [address] Problem List (1) Osteomyelitis of left foot Status: Acute Reason for Consult: osteo Consulted by: Dr. Grimaldo History of Present Illness: The patient is a 67 year old M with h/o DM, PVD with recent angioplasty 07/25 who presented with 1-2 days of chills and several weeks of worsening foot pain, redness, and mild drainage. Has had ulcers on feet for at least at year. Is s/p L foot TMA. Follows at wound clinic. Redness extended up to mid-barlow. Seen by home nurse, sent to ED. Podiatry consulted. Given vanc/zosyn. MRI now show bilat osteo in feet, so started on cefepime. Wound cx sent, (+) for serratia and corynebacterium. Feeling ok, no fevers here, redness slightly improved. Full ROS performed and neg except as noted above. Mild headache, some nausea. - Medical History Past Medical History (Chronic Problems): Chronic Problems CAD (coronary artery disease) (Chronic) Malnutrition (Chronic) Delayed wound healing (Chronic) Lower extremity edema (Chronic) Chronic ulcer of left foot with fat layer exposed (Chronic) Ulcer of right foot with fat layer exposed (Chronic) Hypertension (Chronic) Hyperlipidemia (Chronic) Hypothyroidism (Chronic) Coronary artery disease (Chronic) Sleep apnea (Chronic) Chronic kidney disease (Chronic) PAOD (peripheral arterial occlusive disease) (Chronic) GERD (gastroesophageal reflux disease) (Chronic) Muscle spasm (Chronic) Type 2 diabetes mellitus with diabetic polyneuropathy (Chronic) Pulmonary hypertension (Chronic) Obstructive sleep apnea (Chronic) Morbid obesity (Chronic) Non compliance with medical treatment (Chronic) Diabetic foot ulcers (Chronic) Aortocoronary bypass status (Chronic) Type II diabetes mellitus, uncontrolled (Chronic) History of esophageal reflux (Chronic) History of hyperlipidemia (Chronic) History of hypertension (Chronic) History of hypothyroidism (Chronic) Macular infarction (Chronic) Peripheral vascular disease (Chronic) Allergies/Adverse Reactions: Allergies adhesive Allergy (Verified 02/13/17 14:38) SKIN GETS PULLED OFF SKIN GETS PULLED OFF latex Allergy (Verified 02/13/17 14:38) Hives Home Medications: Ambulatory Orders Medication Instructions Recorded Clopidogrel Bisulfate [Plavix] 75 mg PO DAILY 05/15/13 Levothyroxine [Synthroid] 200 mcg PO DAILY 05/15/13 - Social History SMOKING STATUS:: Former smoker Vital Signs Temp Pulse Resp BP Pulse Ox 97.1 F L 78 18 176/72 H 96 07/30/17 09:14 07/30/17 09:20 07/30/17 09:14 07/30/17 09:14 07/30/17 09:14 Oxygen Flow Rate 2 Oxygen Delivery Method Room Air Weight: 101.5 kg Body Mass Index (BMI) 31.1 Microbiology Past 72 Hours 07/27/17 22:12 Gram Stain - Final Wound - Right Foot Wound Culture - Final Laboratory Tests Past 24 Hrs WBC 8.6 RBC 5.01 Hgb 14.7 Hct 44.3 MCV 88.4 MCH 29.3 MCHC 33.2 RDW 14.7 H - Other Studies Radiology: [] reviewed Other Studies: [] Route of nutrition/ use of supplements: [] Nutritional Intake: [] IV Site: [] Meng Catheter: [] - Physical Exam General: Alert, Oriented x3, Cooperative, No apparent distress HEENT: Atraumatic, PERRLA, EOMI Neck: Supple, No JVD Lungs: Clear to auscultation, Normal air movement Cardiovascular: Regular rate, Regular Rhythm, No murmurs Abdomen: Bowel Sounds Present, Soft, Non Tender, Obese Extremities: Diminished Peripheral Pulses, Edema Skin: Ulcer/ Wound - bilateral foot ulcers, wrapped., Rash Present - Mild redness, no warmth, around bilat shins/calves IV Site: Peripheral, without redness Musculoskeletal: No Tenderness to Palpation of Joints or Extremities Neurological: Cranial nerves II-XII grossly intact - Assessment/Plan Antibiotics: [] Assessment/Plan: [] Active and Suspected Problems Non-pressure chronic ulcer of other part of left foot with fat layer exposed (Acute) Non-pressure chronic ulcer of other part of right foot with fat layer exposed (Acute) PAD (peripheral artery disease) (Acute) Diabetes mellitus with neuropathy (Acute) Cellulitis of left foot (Acute) Cellulitis of right foot (Acute) Severe sepsis (Acute) Bilat foot DM osteomyelitis with PVD - recent angioplasty. MRI shows R 5th metatarsal and toe osteo as well as osteo of L foot stump. Surg debridement planned. Cont cefepime, will add flagyl for anaerobic coverage. ESR is normal. Wound cx with serratia and corynebacterium. Redness around shins seems more consistent with chronic venous stasis at this point. Thank you, will follow. 07/30/17 1114 <Electronically signed by Ihsan Pepe MD> Date Ihsan Pepe MD Cosigner Signature (if applicable): Date CC: PATRICIA Isabel; Ihsan Pepe MD; Johnathan Batres MD Signed BEDSIDE GLUCOSE Collected: 07/30/2017 Status: F Source: [place] 6:55 AM [facility] [place] TYPE CODE TESTS RESULT OUT OF REFERENCE UNITS RANGE LAB L501.080 70-110 mg/dL High BEDSIDE GLU 116 Result Comment: MANAGEMENT OF PATIENT CARE PER NURSING PROTOCOL Performed By: #### L501.080 #### [facility] Point of Care [address] [place], [place] [address] CBC W/DIFF, AUTOMATED Collected: 07/30/2017 Status: F Source: [place] 5:20 AM [facility] [place] TYPE CODE TESTS RESULT OUT OF RANGE REFERENCE UNITS LAB L100.1000 4.4-11.0 K/mm3 Normal WBC 8.6 LAB L100.1200 4.6-6.2 M/mm3 Normal RBC 5.01 LAB L100.1300 13.0-16.5 g/dl Normal HGB 14.7 LAB L100.1400 40-54 % Normal HCT 44.3 LAB L100.1500 80-94 fL Normal MCV 88.4 LAB L100.1600 27.0-32.0 pg Normal MCH 29.3 LAB L100.1700 32-36 g/gl Normal MCHC 33.2 LAB L100.1810 11.6-14.6 % High RDW CV 14.7 LAB L100.1820 35.1-43.9 fl High RDW SD 47.2 LAB L100.1900 150-450 K/mm3 Normal PLT 274 LAB L100.2000 6.2-12.0 fl Normal MPV 10.2 LAB L100.2100 47-70 % High NEUT% 83.1 LAB L100.2200 19-41 % Low LY% 8.3 LAB L100.2300 0-10 % Normal MONO% 6.4 LAB L100.2400 0-5 % Normal EO% 1.3 LAB L100.2500 0-1 % Normal BASO% 0.5 LAB L100.2550 0.0-0.9 % Normal IM GRAN % 0.400 Result Comment: IG% - Immature Granulocytes (promyelocytes, myelocytes and metamyelocytes) > 1% indicates that a LEFT SHIFT is Present. LAB L100.2620 2.0-7.7 X10 3/uL Normal Absolute Neut 7.1 LAB L100.2720 0.83-4.51 X10 3/ul Low Absolute Lymph 0.71 Performed By: #### L100.0100 #### [facility] [address] [place], [address] BASIC METABOLIC Collected: 07/30/2017 Status: F Source: [place] PROFILE ([facility]) 5:20 AM [facility] [place] TYPE CODE TESTS RESULT OUT OF RANGE REFERENCE UNITS LAB L501.0100 74-106 mg/dL High GLU 140 Result Comment: Fasting Glucose result greater than or equal to 126 mg/dL suggests DIABETES MELLITUS per A.D.A. criteria. Please note revised GLUCOSE reference range effective 2017. LAB L501.1000 7-18 mg/dL High BUN 30 LAB L501.1100 0.70-1.30 mg/dL High CREAT,SERUM 1.31 Result Comment: The validity of the calculated GFR AND GFRAA in patients over 70 years has not been determined. Clinical correlation is essential. LAB L501.1110 >60 mL/min Low EST GFR 58 Result Comment: Non- GFR Calc LAB L501.1115 >60 mL/min Normal EST GFR - AA 71 Result Comment: GFR Calc LAB L501.1255 ml/min Normal Estimated CRCL 59.88 LAB L501.1300 10-20 RATIO High BUN/CRE 22.9 LAB L501.2200 8.5-10 mg/dL Normal .1 CA 8.9 LAB L501.5300 136-14 mmol/L Normal 5 NA 137 LAB L501.5600 3.5-5. mmol/L Normal 1 K 4.4 Result Comment: Slight Hemolysis, Result may be falsely increased. LAB L501.5900 98-107 mmol/L Normal CL 100 LAB L501.6100 21.0-32.0 mmol/L Normal CO2 31.0 LAB L501.6200 5-15 Normal 6 GAP Performed By: #### L500.2500 #### [facility] [address] [place], [address] BEDSIDE GLUCOSE Collected: 07/30/2017 Status: F Source: [place] 4:51 AM [facility] [place] TYPE CODE TESTS RESULT OUT OF RANGE REFERENCE UNITS LAB L501.080 70-110 mg/dL Normal BEDSIDE GLU 105 Result Comment: MANAGEMENT OF PATIENT CARE PER NURSING PROTOCOL Performed By: #### L501.080 #### [facility] Point of Care [address] [place] [address] BEDSIDE GLUCOSE Collected: 07/30/2017 Status: F Source: [place] 4:40 AM [facility] [place] TYPE CODE TESTS RESULT OUT OF REFERENCE UNITS RANGE LAB L501.080 70-110 mg/dL Low alert BEDSIDE GLU 19 Result Comment: Dextrose 50 Given MANAGEMENT OF PATIENT CARE PER NURSING PROTOCOL Performed By: #### L501.080 #### [facility] Point of Care [address] [place] [address] BEDSIDE GLUCOSE Collected: 07/29/2017 Status: F Source: [place] 9:51 PM [facility] [place] TYPE CODE TESTS RESULT OUT OF REFERENCE UNITS RANGE LAB L501.080 70-110 mg/dL High BEDSIDE GLU 172 Result Comment: MANAGEMENT OF PATIENT CARE PER NURSING PROTOCOL Performed By: #### L501.080 #### [facility] Point of Care [address] [place] [address] BEDSIDE GLUCOSE Collected: 07/29/2017 Status: F Source: [place] 5:08 PM [facility] [place] TYPE CODE TESTS RESULT OUT OF REFERENCE UNITS RANGE LAB L501.080 70-110 mg/dL High BEDSIDE GLU 248 Result Comment: MANAGEMENT OF PATIENT CARE PER NURSING PROTOCOL Performed By: #### L501.080 #### [facility] Point of Care [address] [place], [place] [address] BEDSIDE GLUCOSE Collected: 07/29/2017 Status: F Source: [place] 12:22 PM [facility] [place] TYPE CODE TESTS RESULT OUT OF REFERENCE UNITS RANGE LAB L501.080 70-110 mg/dL High BEDSIDE GLU 254 Result Comment: MANAGEMENT OF PATIENT CARE PER NURSING PROTOCOL Performed By: #### L501.080 #### [facility] Point of Care [address] [place] [address] BEDSIDE GLUCOSE Collected: 07/29/2017 Status: F Source: [place] 6:51 AM [facility] [place] TYPE CODE TESTS RESULT OUT OF REFERENCE UNITS RANGE LAB L501.080 70-110 mg/dL High BEDSIDE GLU 160 Result Comment: MANAGEMENT OF PATIENT CARE PER NURSING PROTOCOL Performed By: #### L501.080 #### [facility] Point of Care [address] [place], [place] [address] CBC W/DIFF, AUTOMATED Collected: 07/29/2017 Status: F Source: [place] 5:25 AM [facility] [place] TYPE CODE TESTS RESULT OUT OF RANGE REFERENCE UNITS LAB L100.1000 4.4-11.0 K/mm3 Normal WBC 7.2 LAB L100.1200 4.6-6.2 M/mm3 Normal RBC 5.04 LAB L100.1300 13.0-16.5 g/dl Normal HGB 15.1 LAB L100.1400 40-54 % Normal HCT 44.5 LAB L100.1500 80-94 fL Normal MCV 88.3 LAB L100.1600 27.0-32.0 pg Normal MCH 30.0 LAB L100.1700 32-36 g/gl Normal MCHC 33.9 LAB L100.1810 11.6-14.6 % High RDW CV 14.9 LAB L100.1820 35.1-43.9 fl High RDW SD 47.6 LAB L100.1900 150-450 K/mm3 Normal PLT 275 LAB L100.2000 6.2-12.0 fl Normal MPV 10.2 LAB L100.2100 47-70 % Normal NEUT% 65.8 LAB L100.2200 19-41 % Low LY% 16.8 LAB L100.2300 0-10 % High MONO% 13.1 LAB L100.2400 0-5 % Normal EO% 3.8 LAB L100.2500 0-1 % Normal BASO% 0.4 LAB L100.2550 0.0-0.9 % Normal IM GRAN % 0.100 Result Comment: IG% - Immature Granulocytes (promyelocytes, myelocytes and metamyelocytes) > 1% indicates that a LEFT SHIFT is Present. LAB L100.2620 2.0-7.7 X10 3/uL Normal Absolute Neut 4.7 LAB L100.2720 0.83-4.51 X10 3/ul Normal Absolute Lymph 1.20 Performed By: #### L100.0100 #### [facility] [address] [place], [address] BASIC METABOLIC Collected: 07/29/2017 Status: F Source: [place] PROFILE ([facility]) 5:25 AM [facility] [place] TYPE CODE TESTS RESULT OUT OF RANGE REFERENCE UNITS LAB L501.0100 74-106 mg/dL High GLU 160 Result Comment: Fasting Glucose result greater than or equal to 126 mg/dL suggests DIABETES MELLITUS per A.D.A. criteria. Please note revised GLUCOSE reference range effective 2017. LAB L501.1000 7-18 mg/dL High BUN 28 LAB L501.1100 0.70-1.30 mg/dL Normal CREAT,SERUM 1.07 Result Comment: The validity of the calculated GFR AND GFRAA in patients over 70 years has not been determined. Clinical correlation is essential. LAB L501.1110 >60 mL/min Normal EST GFR 74 Result Comment: Non- GFR Calc LAB L501.1115 >60 mL/min Normal EST GFR - AA 89 Result Comment: GFR Calc LAB L501.1255 ml/min Normal Estimated CRCL 73.31 LAB L501.1300 10-20 RATIO High BUN/CRE 26.2 LAB L501.2200 8.5-10 mg/dL Normal .1 CA 8.8 LAB L501.5300 136-14 mmol/L Low 5 NA 135 LAB L501.5600 3.5-5. mmol/L Normal 1 K 4.0 LAB L501.5900 98-107 mmol/L Normal CL 98 LAB L501.6100 21.0-3 mmol/L Normal 2.0 CO2 29.0 LAB L501.6200 5-15 Normal GAP 8 Performed By: #### L500.2500, L501.6710 #### [facility] [address] [place], [address] CRP Collected: 07/29/2017 Status: F Source: [place] 5:25 AM [facility] [place] TYPE CODE TESTS RESULT OUT OF RANGE REFERENCE UNITS LAB L501.6710 0.0-3.0 mg/L High 97.30 C-REACTIVE PROT Result Comment: C-Reactive Protein (CRP) provides useful information for the diagnosis, therapy and monitoring of inflammatory processes and associated diseases. For the evaluation of Relative Risk for Cardiovascular Disease, a High Sensitivity CRP (HSCRP) should be ordered. Performed By: #### L500.2500, L501.6710 #### [facility] [address] [facility] [place], [address] BEDSIDE GLUCOSE Collected: 07/28/2017 Status: F Source: [place] 11:12 PM [facility] [place] TYPE CODE TESTS RESULT OUT OF REFERENCE UNITS RANGE LAB L501.080 70-110 mg/dL High BEDSIDE GLU 241 Result Comment: MANAGEMENT OF PATIENT CARE PER NURSING PROTOCOL Performed By: #### L501.080 #### [facility] Point of Care [address] [facility] [place] [address] BEDSIDE GLUCOSE Collected: 07/28/2017 Status: F Source: [place] 4:20 PM [facility] [place] TYPE CODE TESTS RESULT OUT OF REFERENCE UNITS RANGE LAB L501.080 70-110 mg/dL High BEDSIDE GLU 334 Result Comment: MANAGEMENT OF PATIENT CARE PER NURSING PROTOCOL Performed By: #### L501.080 #### [facility] Point [facility] Care [address] [place] [address] BEDSIDE GLUCOSE Collected: 07/28/2017 Status: F Source: [place] 12:24 PM [facility] [place] TYPE CODE TESTS RESULT OUT OF REFERENCE UNITS RANGE LAB L501.080 70-110 mg/dL High BEDSIDE GLU 293 Result Comment: MANAGEMENT OF PATIENT CARE PER NURSING PROTOCOL Performed By: #### L501.080 #### [facility] Point [facility] Care [address] [place] [address] LOWER EXT/NO JT/W/O Observed: 07/28/2017 Status: F Source: [place] 9:41 AM [facility] [place] [facility] Imaging Services [address] [place] [address] Lower Ext/No Jt/w/o MR#: [id number] Acct: [id number] Name: FADI ALCANTAR Rep #: [id number] : 1950 M 67 From: Christiano Duenas MD PCP: Medardo PELAEZ,Johnathan English Status: ADM IN Study: Lower Ext/No Jt/w/o Date of Exam: 07/28/17 Exam# [id number] Ordering Dr: James Isabel DPM STUDY: MRI LEFT MIDFOOT REASON FOR EXAM: Male, 67 years old. Left foot cellulitis. TECHNIQUE: Standardized fat and water weighted pulse sequences were obtained in all 3 orthogonal planes. COMPARISON: X-ray July 28, 2017. FINDINGS: There is mild degenerative arthrosis of the talonavicular articulation. Normal calcaneocuboid articulation. Normal navicular-cuneiform articulations. Normal intercuneiform articulations. Normal first tarsometatarsal articulation. Normal Lisfranc ligament. Normal second and third tarsometatarsal articulations. Normal cuboid fourth and cuboid fifth tarsometatarsal articulation. Amputation at the proximal first through fifth metatarsi. There is soft tissue swelling of the stump. There is focal ulcer on the plantar aspect medially with subcutaneous edema. There is single focus of cortical indistinctness and marrow edema of the first metatarsal stump suggesting osteomyelitis, series 5 image 04/05. Normal tibialis anterior tendon. Normal extensor hallucis longus tendon. Normal extensor digitorum longus tendons. Normal peroneus longus tendon and distal insertion. Normal peroneus brevis tendon and distal insertion. MRI/Lower Ext/No Jt/w/o IMPRESSION: Status post transmetatarsal amputation. Small focus of osteomyelitis of the first metatarsal stump. Electronically Signed: Christiano Duenas MD at 15:08 EST , Service support , CC: PATRICIA Isabel; Johnathan Batres MD Inbound Sales Manager: Signed LOWER EXT/NO JT/W/O Observed: 07/28/2017 Status: F Source: [place] 9:40 AM [facility] [place] [facility] Imaging Services [address] [address] Lower Ext/No Jt/w/o MR#: [id number] Acct: [id number] Name: FADI ALCANTAR Rep #: [id number] : 1950 M 67 From: Christiano Duenas MD PCP: Johnathan Batres MD, Chi Status: ADM IN Study: Lower Ext/No Jt/w/o Date of Exam: 07/28/17 Exam# [id number] Ordering Dr: James Isabel DPM STUDY: MRI RIGHT MIDFOOT REASON FOR EXAM: Male, 67 years old. Cellulitis. Peripheral vascular disease. Diabetes. Evaluate fifth metatarsal head. TECHNIQUE: Standardized fat and water weighted pulse sequences were obtained in all 3 orthogonal planes. COMPARISON: X-ray July 27, 2017 FINDINGS: Normal talonavicular articulation. Normal calcaneocuboid articulation. Normal navicular-cuneiform articulations. Normal intercuneiform articulations. Normal first tarsometatarsal articulation. Normal Lisfranc ligament. Normal second and third tarsometatarsal articulations. Normal cuboid fourth and cuboid fifth tarsometatarsal articulation. Normal first through fourth metatarsi. There is marrow edema with T2 signal hyperintensity of the fifth metatarsal head and proximal phalanx, series 5 images through . There is adjacent soft tissue swelling and defect consistent with ulcer Normal tibialis anterior tendon. Normal extensor hallucis longus tendon. Normal extensor digitorum longus tendons. Normal peroneus longus tendon and distal insertion. Normal peroneus brevis tendon and distal insertion. Normal intrinsic muscles of the mid and forefoot region. Normal extensor digitorum brevis muscle. There is diffuse edema of the subcutaneous adipose space of the dorsal midfoot region. MRI/Lower Ext/No Jt/w/o IMPRESSION: Osteomyelitis of the fifth metatarsal head and proximal phalanx. Electronically Signed: Christiano Duenas MD at 14:59 EST , Service support , CC: PATRICIA Isabel; Johnathan Batres MD Inbound Sales Manager: Signed CBC W/DIFF, AUTOMATED Collected: 07/28/2017 Status: F Source: [place] 9:15 AM [facility] [place] TYPE CODE TESTS RESULT OUT OF RANGE REFERENCE UNITS LAB L100.1000 4.4-11.0 K/mm3 Normal WBC 7.8 LAB L100.1200 4.6-6.2 M/mm3 Normal RBC 5.00 LAB L100.1300 13.0-16.5 g/dl Normal HGB 14.6 LAB L100.1400 40-54 % Normal HCT 44.5 LAB L100.1500 80-94 fL Normal MCV 89.0 LAB L100.1600 27.0-32.0 pg Normal MCH 29.2 LAB L100.1700 32-36 g/gl Normal MCHC 32.8 LAB L100.1810 11.6-14.6 % High RDW CV 14.8 LAB L100.1820 35.1-43.9 fl High RDW SD 47.9 LAB L100.1900 150-450 K/mm3 Normal PLT 240 LAB L100.2000 6.2-12.0 fl Normal MPV 9.6 LAB L100.2100 47-70 % Normal NEUT% 69.9 LAB L100.2200 19-41 % Low LY% 13.6 LAB L100.2300 0-10 % High MONO% 13.4 LAB L100.2400 0-5 % Normal EO% 2.4 LAB L100.2500 0-1 % Normal BASO% 0.4 LAB L100.2550 0.0-0.9 % Normal IM GRAN % 0.300 Result Comment: IG% - Immature Granulocytes (promyelocytes, myelocytes and metamyelocytes) > 1% indicates that a LEFT SHIFT is Present. LAB L100.2620 2.0-7.7 X10 3/uL Normal Absolute Neut 5.5 LAB L100.2720 0.83-4.51 X10 3/ul Normal Absolute Lymph 1.06 Performed By: #### L100.0100 #### [facility] [address] [facility] [place], [address] FOOT MIN 3 VIEWS Observed: 07/28/2017 Status: F Source: [place] 6:36 AM [facility] [place] [facility] Imaging Services [address] [place] [address] Foot min 3 Views MR#: [id number] Acct: [id number] Name: FADI ALCANTAR Rep #: [id number] : 1950 M 67 From: Tomasz Beauchamp MD PCP: Medardo PELAEZ,Johnathan English Status: ADM IN Study: Foot min 3 Views Date of Exam: 07/28/17 Exam# [id number] Ordering Dr: James Isabel DPM STUDY: X-RAY - LEFT FOOT CLINICAL: Male, 67 years old. Cellulitis. TECHNIQUE: 3 view(s) of the foot. COMPARISON: 3 views of the left foot January 13, 2017. FINDINGS: Anterior periarticular spurring of the navicular is better defined in the lateral view today. Normal talus, calcaneus, and remaining tarsal bones. Normal visualized subtalar, talonavicular, calcaneocuboid, tarsal and tarsometatarsal articulations. Again seen is prior transmetatarsal amputation of the foot. Atherosclerotic vascular calcifications present. Surgical clips are again present in the medial soft tissues of the distal left lower leg. There is increased fullness of the soft tissues anterior and distal to the second through fourth metatarsal stumps, consistent with cellulitis. There is plantar ulceration of the soft tissues below the first metatarsal stump. There is no demonstrated osseous destructive lesion to clearly indicate active osteomyelitis. RAD/Foot min 3 Views IMPRESSION: 1. Prior transmetatarsal amputation of the left foot. 2. Plantar soft tissue ulceration below the first metatarsal stump, as well as changes of cellulitis anterior and distal to the 2- 4 metatarsals. 3. There is no clear sign of active osteomyelitis. If clinical suspicion warrants additional imaging, further evaluation with three- phase bone scan or MRI advised. Electronically Signed: Tk Beauchamp MD at 11:03 EST , Service support , CC: PATRICIA Isabel; Johnathan Batres MD Inbound Sales Manager: Signed BEDSIDE GLUCOSE Collected: 07/28/2017 Status: F Source: [place] 6:28 AM [facility] [place] TYPE CODE TESTS RESULT OUT OF RANGE REFERENCE UNITS LAB L501.080 70-110 mg/dL Normal BEDSIDE GLU 95 Result Comment: MANAGEMENT OF PATIENT CARE PER NURSING PROTOCOL Performed By: #### L501.080 #### [facility] Point of Care [address] [place] [address] M R STAPH AUREUS Collected: 07/28/2017 Status: F Source: [place] DNA BY PCR 6:20 AM [facility] [place] [facility] Order Comment: Order Date: 07/27/17 TYPE CODE TESTS RESULT OUT OF RANGE REFERENCE UNITS LAB L8200.1100 Negative Normal MRSA Negative RESULT Performed By: #### L8200.1000 #### [facility] [place], [address] Observed: 07/28/2017 Status: F Source: [place] CULTURE, URINE 5:33 AM [facility] [place] [facility] Order Date: 07/27/17 Urine Culture Culture exhibits no growth. Performed By: #### M100.0650 #### [facility] [address] [place], [address] BEDSIDE GLUCOSE Collected: 07/27/2017 Status: F Source: [place] 11:14 PM [facility] [place] [facility] TYPE CODE TESTS RESULT OUT OF RANGE REFERENCE UNITS LAB L501.080 70-110 mg/dL Normal BEDSIDE GLU 98 Result Comment: MANAGEMENT OF PATIENT CARE PER NURSING PROTOCOL Performed By: #### L501.080 #### [facility] Point of Care [address] [place] [address] BEDSIDE GLUCOSE Collected: 07/27/2017 Status: F Source: [place] 10:31 PM [facility] [place] [facility] TYPE CODE TESTS RESULT OUT OF REFERENCE UNITS RANGE LAB L501.080 70-110 mg/dL Low BEDSIDE GLU 68 Result Comment: MANAGEMENT OF PATIENT CARE PER NURSING PROTOCOL Performed By: #### L501.080 #### [facility] Point of Care [address] [place], [place] [address] Observed: 07/27/2017 Status: F Source: [place] CULTURE, DEEP WOUND 10:12 PM [facility] [place] [facility] Order Date: 07/27/17 Gram Stain Gram Stain No White Blood Cells No organisms seen Wound Culture #2 There are no CLSI standards for interpretation of this Drug/Organism combination. ORGANISM 1: Serratia marcescens Amount Growth 1+ ORGANISM 2: Corynebacterium striatum Amount Growth 2+ Serratia marcescens: REACTION Amoxacillin/Clavulanic Acid $ >=32 R Cefazolin $ >=64 R Cefepime $ <=1 S Ceftriaxone $ <=1 S Ciprofloxacin $ 1 S Ertapenim $$$ <=0.5 S Gentamicin $ <=1 S Levofloxacin $ 1 S Tobramycin $ <=1 S Trimethoprim/Sulfametho $ <=20 S (NF) indicates non-formulary drug at [facility]. Approval by Infectious Disease Specialist required before non-formulary drugs may be ordered and/or dispensed. Cult, Anaerobic No anaerobic bacteria isolated. Performed By: #### M100.1500 #### [facility] [address] [place], [address] LACTIC ACID Collected: 07/27/2017 Status: F Source: [place] 8:52 PM [facility] Order Comment: Yes/No query for Sepsis Lactate Rule Y TYPE CODE TESTS RESULT OUT OF RANGE REFERENCE UNITS LAB L503.6005 0.4-2.0 mmol/L Normal LACTIC ACID 1.0 Performed By: #### L503.6005 #### [facility] [address] [place], [address] FOOT MIN 3 VIEWS Observed: 07/27/2017 Status: F Source: [place] 7:33 PM [facility] [place] [facility] Imaging Services [address] [place] [address] Foot min 3 Views MR#: [id number] Acct: [id number] Name: FADI ALCANTAR Rep #: [id number] : 1950 M 67 From: Uriel Peña MD PCP: Medardo PELAEZ,Johnathan English Status: ADM IN Study: Foot min 3 Views Date of Exam: 07/27/17 Exam# [id number] Ordering Dr: Abran Garcia DO STUDY: X-RAY - RIGHT FOOT CLINICAL: Male, 67 years old. Open wound on the plantar surface of the base of the fifth toe. Pain. Cellulitis. TECHNIQUE: 2 view(s) of the foot. COMPARISON: None. FINDINGS: Normal talus, calcaneus, and tarsal bones. Normal visualized subtalar, talonavicular, calcaneocuboid, tarsal and tarsometatarsal articulations. Normal metatarsi. Normal metatarsophalangeal joint of the great toe. Normal tibial and fibular sesamoid bones. Normal interphalangeal joint of the great toe. Normal phalanges of the great toe. Normal second through fifth metatarsophalangeal joints. Normal interphalangeal joints and phalanges of the lesser toes. There is an area of lucency underlying the head of the fifth metatarsal, consistent with the given history of an ulceration in plantar soft tissues. There are arteriovascular calcifications. RAD/Foot min 3 Views IMPRESSION: No demonstrated fracture, dislocation, or destructive osseous lesion. No visible radiographic evidence for osteomyelitis. MRI or three-phase nuclear medicine bone scan would've greater sensitivity. Electronically Signed: Uriel Peña MD at 2:05 EST , Service support , CC: Abran Garcia DO; Johnathan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 Artery, mid = 18.1 cm./sec. Post. Tibial Artery, mid = 33.3 cm./sec. Post Tibial Artery, dist. = 23.0 cm./sec. Post. Tibial Artery, dist = 37.9 cm./sec. Ant.Tibial Artery, prox = 110.0 cm./sec. Peroneal Artery, mid = 19.5 cm./sec. Ant Tibial Artery, mid = 31.8 cm./sec. Peroneal Artery,dist = 12.1 cm./sec. Ant. Tibial Artery, distal = 31.7 cm./sec. Ant. Tibial Artery, prox = 27.9 cm./sec. Ant. Tibial Artery, mid = 42.4 cm./sec. Ant. Tibial Artery, dist = 37.6 cm./sec. Procedure Flow not demonstrated in RT prox PER A and LT Prox GUEST RELATIONS OFFICER and PER V. Interpretation Summary 1. Right leg with proximal peroneal occluded. Otherwise no significant stenosis seen. There is triphasic flow proximal and biphasic distal SFA through to foot. 2. 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 Ordering Physician: Florencio Redding Referring Physician: Florencio Redding Performed By: Claudia Rosa RVT 07/15/17 2009 Date Florencio Redding MD CC: Florencio Redding MD; Johnathan Batres MD Date Dictated: 07/12/17 1259 Date Transcribed: 07/15/17 160 Inbound Sales Manager: Signed COMPREHENSIVE METABOLIC Collected: 07/05/2017 Status: F Source: [place] 2:02 PM [facility] TYPE CODE TESTS RESULT OUT OF RANGE REFERENCE UNITS LAB L501.0100 70-110 mg/dL High GLU 359 Result Comment: Glucose result greater than or equal to 200 mg/dL suggests DIABETES MELLITUS per A.D.A. criteria. LAB L501.1000 7-18 mg/dL High BUN 37 LAB L501.1100 0.70-1.30 mg/dL High CREAT,SERUM 1.50 Result Comment: The validity of the calculated GFR AND GFRAA in patients over 70 years has not been determined. Clinical correlation is essential. LAB L501.1110 >60 mL/min Low EST GFR 50 Result Comment: Non- GFR Calc LAB L501.1115 >60 mL/min Normal EST GFR - AA 60 Result Comment: GFR Calc LAB L501.1300 10-20 RATIO High BUN/CRE 24.7 LAB L501.1500 6.4-8.2 g/dL T Normal PROT 7.7 LAB L501.1800 3.4-5.0 g/dL Low ALB 3.2 Result Comment: Please note revised Albumin AND Globulin reference range effective 2017. LAB L501.1950 2.2-4.2 g/dL High GLOB 4.5 LAB L501.2000 0.9-2.4 RATIO Low A/G 0.7 LAB L501.2200 8.5-10.1 mg/dL Normal CA 8.7 LAB L501.4100 15-37 U/L Normal AST 23 LAB L501.4305 45-117 U/L Normal ALK P 85 LAB L501.4405 12-78 U/L Normal ALT 40 LAB L501.4600 0.20-1.00 mg/dL Normal T BILI 0.40 LAB L501.5300 136-145 mmol/L Low NA 133 LAB L501.5600 3.5-5.1 mmol/L Normal K 4.2 LAB L501.5900 98-107 mmol/L Low CL 94 LAB L501.6100 21.0-32.0 mmol/L Normal CO2 29.0 LAB L501.6200 5-15 Normal GAP 10 Performed By: #### L500.4050, L501.9520 #### [facility] [address] [place], [place], [id number] THYROID STIM HORMONE Collected: 07/05/2017 Status: F Source: [place] (TSH) 2:02 PM [facility] TYPE CODE TESTS RESULT OUT OF RANGE REFERENCE UNITS LAB L501.9520 0.358-3.74 uIU/mL Normal TSH 0.93 Performed By: #### L500.4050, L501.9520 #### [facility] [address] [place], [address] CBC W/DIFF, AUTOMATED Collected: 07/05/2017 Status: F Source: [place] 2:02 PM [facility] TYPE CODE TESTS RESULT OUT OF RANGE REFERENCE UNITS LAB L100.1000 4.4-11.0 K/mm3 Normal WBC 10.2 LAB L100.1200 4.6-6.2 M/mm3 Normal RBC 5.13 LAB L100.1300 13.0-16.5 g/dl Normal HGB 14.6 LAB L100.1400 40-54 % Normal HCT 45.5 LAB L100.1500 80-94 fL Normal MCV 88.7 LAB L100.1600 27.0-32.0 pg Normal MCH 28.5 LAB L100.1700 32-36 g/gl Normal MCHC 32.1 LAB L100.1810 11.6-14.6 % High RDW CV 15.7 LAB L100.1820 35.1-43.9 fl High RDW SD 49.9 LAB L100.1900 150-450 K/mm3 Normal PLT 265 LAB L100.2000 6.2-12.0 fl Normal MPV 10.7 LAB L100.2100 47-70 % High NEUT% 75.1 LAB L100.2200 19-41 % Low LY% 12.6 LAB L100.2300 0-10 % Normal MONO% 9.6 LAB L100.2400 0-5 % Normal EO% 2.0 LAB L100.2500 0-1 % Normal BASO% 0.5 LAB L100.2550 0.0-0.9 % Normal IM GRAN % 0.200 Result Comment: IG% - Immature Granulocytes (promyelocytes, myelocytes and metamyelocytes) > 1% indicates that a LEFT SHIFT is Present. LAB L100.2620 2.0-7.7 X10 3/uL Normal Absolute Neut 7.7 LAB L100.2720 0.83-4.51 X10 3/ul Normal Absolute Lymph 1.29 Performed By: #### L100.0100 #### [facility] [address] [place], [address] ALLERGIES ALLERGIES DATE TYPE / CODE NAME / CODE REACTION SEVERITY SOURCE 11/21/2017 Drug adhesive/F00 SKIN GETS PULLED Unknown [facility] Allergy/4160 6496941(RXNO [facility] Hospital 04001(SNOMED RM) Repository CT) 11/21/2017 Drug latex/M28493 Hives Unknown [facility] Allergy/4160 8921(RXNO) Hospital 99692(SNOMED Repository CT) ENCOUNTERS ENCOUNTERS ADMIT/DISCHARGE ACCOUNT NUMBER ADMITTING ENCOUNTER LOCATION SOURCE CLASS 07/02/2018 [id number] Ambulatory [facility] ding:LAB.FUT Repository URE 06/26/2018 [id number] Ambulatory [facility] ding:WC Repository 06/14/2018 [id number] Ambulatory BMSBuilding: [place] BMS.CF[facility] Repository 06/07/2018 [id number] Ambulatory [facility] ding:RAD Repository 06/06/2018 [id number] Ambulatory BMS[facility]: [place] BMS.CF.[facility] Repository 06/06/2018/06/10/20 [id number] Ambulatory [address] ding:WC Repository 05/30/2018 [id number] Ambulatory BMSBuilding: [place] BMS.CF.[facility] Repository 05/20/2018 [id number] Ambulatory [facility] ding:PSN Repository 05/16/2018 [id number] Ambulatory BMSBuilding: [place] BMS.CF.[facility] Repository 04/29/2018 [id number] Ambulatory BMSBuilding: [place] BMS.CF.[facility] Repository 04/29/2018/05/10/20 [id number] Ambulatory [place] ding:WC Repository 04/25/2018 [id number] Ambulatory BMSBuilding: [place] BMS.CF.[facility] Repository 04/18/2018 [id number] Ambulatory BMSBuilding: [place] [facility] Repository 04/11/2018 [id number] Ambulatory BMSBuilding: [place] BMS.CF.[facility] Repository 04/09/2018 [id number] Ambulatory [place] [facility] Hospital ding:POLAB3 Repository 04/04/2018 [id number] Ambulatory BMSBuilding: [place] BMS.CF.BIM [facility] Repository 04/04/2018/04/10/20 [id number] [place] [facility] ding[facility]WC Repository 02/27/2018/02/28/20 [id number] Ambulatory [place] [facility] ding:MTLAB Repository 02/27/2018 [id number] Ambulatory [facility] Repository 02/13/2018/03/10/20 [id number] Ambulatory [place] [facility] Hospital ding:WC Repository 02/06/2018/02/09/20 [id number] Amb[place] 18 [facility] Hospital ding:WC Repository 01/31/2018 [id number] [facility] Repository 01/17/2018 [id number] Ambulatory [place] [facility] Hospital ding:POLAB3 Repository 01/16/2018/01/17/20 [id number] Emergency [place] [facility] Hospital ding:ED Repository 12/24/2017 [id number] Ambulatory [place] Hospital ding:POLAB3 Repository 12/19/2017/01/09/20 [id number] Ambulatory [place] [facility] Hospital ding:WC Repository 12/11/2017 [id number] Ambulatory [place] [facility] ding:EN Repository 12/05/2017/12/09/19 [id number] Ambulatory [place] [facility] ding:WC Repository 11/20/2017 [id number] Ambulatory BMSBuilding: [place] BMS.WHG [facility] Repository 10/19/2017 [id number] Ambulatory [place] [facility] ding:CT Repository 10/18/2017/11/09/19 [id number] Ambulatory [place] [facility] ding:WC Repository 10/15/2017/10/16/19 [id number] Ambulatory BMSBuilding: [place] 18 BMS.WSA [facility] Repository 10/03/2017/10/09/19 [id number] Ambulatory [place] [address] [place] [address] ding:WC Repository 09/26/2017 [id number] Ambulatory [facility] ding:POLAB3 Repository 08/03/2017/09/13/19 [id number] Johnathan Batres Inpatient [place] 18 Chi Encounter [facility] ding:TCURoom Repository : QJM82Lor: 1 07/27/2017/08/03/19 [id number] Jose, Inpatient [place] 18 Abran Encounter [facility] ding:PCURoom Repository : TAI356Jjv: 1 07/27/2017 [id number] Jose, Ambulatory BMSBuilding: [place] [facility]MS.[facility] Repository 07/27/2017 [id number] Jose Ambulatory BMSBuilding: [place] BMS.[facility] Repository 07/27/2017 [id number] Jose Ambulatory BMSBuilding: [place] BMS.[facility] Repository 07/27/2017 [id number] Jose Ambulatory BMSBuilding: [place] BMS.[facility] Repository 07/27/2017/08/03/19 [id number] Ambulatory BMSBuilding: [place] 18 [facility] Repository 07/27/2017 [id number] Ambulatory BMSBuilding: [place] BMS.[facility] Repository 07/25/2017 [id number] Ambulatory [facility] ding:CLSP Repository 07/22/2017 [id number] Ambulatory [facility] ding:WC Repository 07/12/2017 [id number] Ambulatory [facility] ding:CVS Repository 07/12/2017 [id number] Ambulatory [facility] ding:LAB.FUT Repository URE 07/11/2017/07/11/19 [id number] Ambulatory [place] ding:WC Repository 07/05/2017 [id number] Ambulatory [facility] ding:POLAB3 Repository PAYERS PAYERS ENCOUNTER GUARANTOR PAYER SUBSCRIBER SOURCE 07/02/2018 FADI E [id number] E Primary FADI E MCCOYDOB: [place] [address] Insurance:[facility] [id number] *IN [place] [address]Tel: (330) Number: Repository [phone] () [id number] Date:8572-67-16JTZD [address]S [address] [place] [address]YH: 07/02/2018 Secondary NOT GIVENUNK [place] Insurance:SELF PAY [facility] Number: Effective Repository Date:2018-05-17 06/26/2018 FADI E [id number] S Primary FADI E MCCOYDOB: [place] [address] Insurance:[facility] [id number] *IN [place] [address]Tel: (330) Number: Repository [phone] () [id number] Date:1573-48-72PGTP [address]S [address] [address]KK: 06/26/2018 Secondary NOT GIVENUNK [place] Insurance:SELF PAY [facility] Number: Effective Repository Date:2018-06-11 06/14/2018 FADI E [id number] S Primary FADI E MCCOYDOB: [place] [address] Insurance:[facility] [id number] *[place] [facility] [address]Sew: (330) Number: Repository [phone] () [id number] Date:6450-02-03ZQYV [address]S [address] [address]HA: 06/14/2018 Secondary NOT GIVENUNK [place] Insurance:SELF PAY [facility] Number: Effective Repository Date:2018-06-14 06/07/2018 FADI E [id number] S Primary FADI E MCCOYDOB: [place] [address] [facility] [id number] *[place] [facility] [address]Boq: (330) Number: Repository [phone] () [id number] Date:8660-85-45CDHJ [address]S [address] [address]CN: 06/07/2018 Secondary NOT GIVENUNK [place] Insurance:SELF PAY [facility] Number: Effective Repository Date:2018-06-07 06/06/2018 FDAI E [id number] S Primary FADI E MCCOYDOB: [place] [address] Insurance:[facility] [id number] [address] *[place] [address]Tel: (330) Number: Repository [phone] () [id number] Date:5446-11-55EDDL [address]S [address] [address]TW: 06/06/2018 Secondary NOT GIVENUNK [place] Insurance:SELF PAY [facility] Number: Effective Repository Date:2018-06-06 06/06/2018 FADI E [id number] S Primary FADI E MCCOYDOB: [place] [address] Insurance:[facility] [facility] [id number] [address] *[place] [address]Tel: (330) Number: Repository [phone] () [id number] Date:3003-77-07ZMZD CLAIMS [address] [address]UF: 06/06/2018 Secondary NOT GIVENUNK [place] Insurance:SELF PAY [facility] Number: Effective Repository Date:2018-05-11 05/30/2018 FADI E [id number] S Primary FADI E MCCOYDOB: [place] [address] Insurance:[facility] [id number] *[place] [facility] [address]Jdw: (330) Number: Repository [phone] () [id number] Date:8538-59-00OQMI [place]S [address] [address]BE: 05/30/2018 Secondary NOT GIVENUNK [place] Insurance:SELF PAY [facility] Number: Effective Repository Date:2018-05-30 05/20/2018 FADI E [id number] S Primary FADI E MCCOYDOB: [place] [address] Insurance:[facility] [id number] [address] *IN [facility] [address]Aim: (330) Number: Repository [phone] () [id number] Date:2386-56-04OVJG [address]S [address] [address]RA: 05/20/2018 Secondary NOT GIVENUNK [place] Insurance:SELF PAY [facility] Number: Effective Repository Date:2018-05-20 05/16/2018 FADI E [id number] E Primary FADI E MCCOYDOB: [place] [address] Insurance:[facility] [facility] [id number] [address] *[place] [facility] [address]Qzb: (330) Number: Repository [phone] () [id number] Date:2435-49-98DYWC CLAIMS [address] [address]KA: 05/16/2018 Secondary NOT GIVENUNK [place] Insurance:SELF PAY [facility] Number: Effective Repository Date:2018-05-16 04/29/2018 FADI E [id number] E Primary FADI E MCCOYDOB: [place] [address] Insurance:[facility] [facility] [id number] [address] *[place] [facility] [address]Wqm: (330) Number: Repository [phone] () [id number] Date:0444-66-18DKJR CLAIMS [address] [address]FD: 04/29/2018 Secondary NOT GIVENUNK [place] Insurance:SELF PAY [facility] Number: Effective Repository Date:2018-04-29 04/29/2018 FADI E [id number] E Primary FADI E MCCOYDOB: [place] [address] Insurance:[facility] [id number] *[place] [address]Tel: (330) Number: Repository [phone] () [id number] Date:3298-61-08LEBB CLAIMS [address] [place] [address]JH: 04/29/2018 Secondary NOT GIVENUNK [place] Insurance:SELF PAY [facility] Number: Effective Repository Date:2018-04-11 04/25/2018 FADI E [id number] E Primary FADI E MCCOYDOB: [place] [address] Insurance:[facility] [id number] *[place] [address]Tel: (330) Number: Repository [phone] () [id number] Date:4739-68-02NMJC CLAIMS [address] [place] [address]XT: 04/25/2018 Secondary NOT GIVENUNK [place] Insurance:SELF PAY [facility] Number: Effective Repository Date:2018-04-25 04/18/2018 FADI E [id number] E Primary FADI E MCCOYDOB: [place] [address] Insurance:[facility] [id number] *[place] [address]Tel: (330) Number: Repository [phone] () [id number] Date:0843-81-72EBNW CLAIMS [address] [place] [address]PC: 04/18/2018 Secondary NOT GIVENUNK [place] Insurance:SELF PAY [facility] Number: Effective Repository Date:2018-04-18 04/11/2018 FADI E [id number] E Primary FADI E MCCOYDOB: [place] [address] Insurance:[facility] [id number] *[place] [address]Tel: (330) Number: Repository [phone] () [id number] Date:2046-94-76ZKMB CLAIMS [address] [address]JE: 04/11/2018 Secondary NOT GIVENUNK [place] Insurance:SELF PAY [facility] Number: Effective Repository Date:2018-04-11 04/09/2018 FADI E [id number] E Primary FADI E MCCOYDOB: [place] [address] Insurance:[facility] [id number] *[place] [address]Tel: (330) Number: Repository [phone] () [id number] Date:3577-96-05YLEG CLAIMS [address] [address]XU: 04/09/2018 Secondary NOT GIVENUNK [place] Insurance:SELF PAY [facility] Number: Effective Repository Date:2018-04-09 04/04/2018 FADI E [id number] E Primary FADI E MCCOYDOB: [place] [address] Insurance:[facility] [id number] [address] *[place] [facility] [address]Bva: (330) Number: Repository [phone] () [id number] Date:5330-11-59TWXM CLAIMS [address], [place] [address]ZY: 04/04/2018 Secondary NOT GIVENUNK [place] Insurance:SELF PAY [facility] Number: Effective Repository Date:2018-04-04 04/04/2018 FADI E [id number] E Primary FADI E MCCOYDOB: [place] [address] Insurance:[facility] [facility] [id number] [address] *[place] [address]Tel: (330) Number: Repository [phone] () [id number] Date:3500-36-64TMAH CLAIMS [address] [address]GH: 04/04/2018 Secondary NOT GIVENUNK [place] Insurance:SELF PAY [facility] Number: Effective Repository Date:2018-03-11 02/27/2018 FADI E [id number] E Primary FADI E MCCOYDOB: [place] [address] Insurance:[facility] [facility] [id number] *[place] [address]Tel: (330) Number: Repository [phone] () [id number] Date:2365-36-09DAWT CLAIMS [address] [place] [address]JO: 02/27/2018 Secondary NOT GIVENUNK [place] Insurance:SELF PAY [facility] Number: Effective Repository Date:2018-02-27 02/27/2018 Fadi E MccoyDOB: Primary Fadi E MccoyDOB: [facility] Insurance:[employer] [id number] [facility] Number: Repository [facility], Effective Date: [place] [address]Tel: () 02/13/2018 FADI E [id number] E Primary FADI E MCCOYDOB: [place] [address] Insurance:[facility] [facility] [id number] *[place] [facility] [address]Jpt: (330) Number: Repository [phone] () [id number] Date:4999-30-77VVFU CLAIMS [address] [place] [address]MP: 02/13/2018 Secondary NOT GIVENUNK [place] Insurance:SELF PAY [facility] Number: Effective Repository Date:2018-02-09 02/06/2018 FADI E [id number] E Primary FADI E MCCOYDOB: [place] [address] Insurance:[facility] [facility] [id number] [address] *[place] [address]Tel: (330) Number: Repository [phone] () [id number] Date:7031-11-87JMWG CLAIMS [address] [address]IH: 02/06/2018 Secondary NOT GIVENUNK [place] Insurance:SELF PAY [facility] Number: Effective Repository Date:2018-01-09 01/31/2018 FADI E [id number] E Primary FADI E MCCOYDOB: [place] [address] Insurance:[facility] [facility] [id number] [address] *[place] [address]Tel: (330) Number: Repository [phone] () [id number] Date:2105-96-70MSBS CLAIMS [address] [address]ZV: 01/31/2018 Secondary NOT GIVENUNK [place] Insurance:SELF PAY [facility] Number: Effective Repository Date:2018-01-22 01/17/2018 FADI E [id number] E Primary FADI E MCCOYDOB: [place] [address] Insurance:[facility] [facility] [id number] [address] *[place] [address]Tel: (330) Number: Repository [phone] () [id number] Date:2071-68-46FQSK [address]S [address] [address]OS: 01/17/2018 Secondary NOT GIVENUNK [place] Insurance:SELF PAY [facility] Number: Effective Repository Date:2018-01-17 2018 FADI E [id number] E Primary FADI E MCCOYDOB: [place] [address] Insurance:[employer] [facility] [id number] [address] *[place] [address]Tel: (330) Number: Repository [phone] () [id number] Date:3299-95-33MLIN [address]S [address] [address]CG: 2018 Secondary NOT GIVENUNK [place] Insurance:SELF PAY [facility] Number: Effective Repository Date:2018 12/24/2017 FADI E [id number] E Primary FADI E MCCOYDOB: [place] [address] Insurance:[facility] [id number] *[place] [facility] [address]Ocs: (330) Number: Repository [phone] () [id number] Date:7736-59-26SBKT CLAIMS [address] [place] [address]RS: 12/24/2017 Secondary NOT GIVENUNK [place] Insurance:SELF PAY [facility] Number: Effective Repository Date:2017-12-24 12/19/2017 FADI E [id number] E Primary FADI E MCCOYDOB: [place] [address] [facility] [id number] *[place] [facility] [address]Zta: (330) Number: Repository [phone] () [id number] Date:6264-48-14FZWN CLAIMS [address] [place] [id number]: 12/19/2017 Secondary NOT GIVENUNK [place] Insurance:SELF PAY [facility] Number: Effective Repository Date:2017-12-09 12/11/2017 FADI E [id number] E Primary FADI E MCCOYDOB: [place] [address] [id number] [id number] *[place] [facility] [id number]: ([phone]) Number: Repository [phone] () [id number] Date:[id number] CLAIMS DEPTPO [address] [place] [address]YS: 12/11/2017 Secondary NOT GIVENUNK [place] Insurance:SELF PAY [facility] Number: Effective Repository Date:2017-10-31 12/05/2017 FADI E [id number] E Primary FADI E MCCOYDOB: [place] Insurance:[facility] [id number] [address] *IN [facility] [address]Nop: [phone]) Number: Repository [phone] () [id number] Date:7896-81-90HMXC CLAIMS [address] [address]MK: 12/05/2017 Secondary NOT GIVENUNK [place] Insurance:SELF PAY [facility] Number: Effective Repository Date:2017-11-09 11/20/2017 FADI E [id number] E Primary FADI E MCCOYDOB: [place] [address] Insurance:[facility] [id number] [address] *IN [place] [address]Tel: [phone]) Number: Repository [phone] () [id number] Date:4689-26-87HZPD CLAIMS [address] [address]TJ: 11/20/2017 Secondary NOT GIVENUNK [place] Insurance:SELF PAY [facility] Number: Effective Repository Date:2017-10-11 10/19/2017 FADI E [id number] E Primary FADI E MCCOYDOB: [place] Insurance:[facility] [id number] [address] *IN [facility] [address]Zvi: [phone]) Number: Repository [phone] () [id number] Date:6809-20-87VGCZ CLAIMS [address] [address]GP: 10/19/2017 Secondary NOT GIVENUNK [place] Insurance:SELF PAY [facility] Number: Effective Repository Date:2017-10-15 10/18/2017 FADI E [id number] E Primary FADI E MCCOYDOB: [place] [address] [facility] [id number] *IN [place] [address]Tel: [phone]) Number: Repository [phone] () [id number] Date:6689-29-94FOZX CLAIMS [address] [address]GB: 10/18/2017 Secondary NOT GIVENUNK [place] Insurance:SELF PAY [facility] Number: Effective Repository Date:2017-10-09 10/15/2017 FADI E [id number] E Primary FADI E MCCOYDOB: [place] Insurance:[facility] [id number] [address] *IN [place] [address]Tel: [phone]) Number: Repository [phone] () [id number] Date:0024-53-06OASF CLAIMS [address] [place] [address]KQ: 10/15/2017 Secondary NOT GIVENUNK [place] Insurance:SELF PAY [facility] Number: Effective Repository Date:2017-10-15 10/03/2017 Fadi E [id number] E Primary Fadi E MccoyDOB: [place] [address] Insurance:[facility] [id number] [address] *[place] [address]Tel: [phone]) Number: Repository [phone] () [id number] Date:5454-20-23ASPX CLAIMS [address] [address]ST: 10/03/2017 Secondary NOT GIVENUNK [place] Insurance:SELF PAY [facility] Number: Effective Repository Date:2017-09-19 09/26/2017 Fadi E [id number] E Primary Fadi E MccoyDOB: [place] [address] Insurance:[facility] [id number] [address] *[place] [address]Tel: [phone]) Number: Repository [phone] () [id number] Date:3203-56-05GJBT [place]S [address] [address]PW: 09/26/2017 Secondary NOT GIVENUNK [place] Insurance:SELF PAY [facility] Number: Effective Repository Date:2017-09-26 08/03/2017 Fadi E [id number] E Primary Fadi E MccoyDOB: [place] [address] Insurance:[facility] [id number] *IN [facility] [address]Zrw: [phone]) Number: Repository [phone] () [id number] Date:3404-35-44QXAB CLAIMS [address] [address]CL: 08/03/2017 Secondary NOT GIVENUNK [place] Insurance:SELF PAY [facility] Number: Effective Repository Date:2017-08-03 07/27/2017 Fadi E [id number] E Primary Fadi E MccoyDOB: [place] [address] Insurance:[facility] [id number] *[place] [facility] [address]Fef: [phone]) Number: Repository [phone] () [id number] Date:1143-60-33BWBW CLAIMS [address] [address]LW: 07/27/2017 Secondary NOT GIVENUNK [place] Insurance:SELF PAY [facility] Number: Effective Repository Date:2017-07-27 07/27/2017 Fadi E [id number] E Primary Fadi E MccoyDOB: [place] [address] Insurance:[facility] [id number] *[place] [facility] [address]Uhe: [phone]) Number: Repository [phone] () [id number] Date:1411-07-16RYII CLAIMS [address] [address]EK: 07/27/2017 Secondary NOT GIVENUNK [place] Insurance:SELF PAY [facility] Number: Effective Repository Date:2017-07-27 07/27/2017 Fadi E [id number] E Primary Fadi E MccoyDOB: [place] [address] Insurance:[facility] [id number] *[place] [address]Tel: [phone]) Number: Repository [phone] () [id number] Date:6718-38-93PIRG CLAIMS [address] [address]HG: 07/27/2017 Secondary NOT GIVENUNK [place] Insurance:SELF PAY [facility] Number: Effective Repository Date:2017-07-27 07/27/2017 Fadi E [id number] E Primary Fadi E MccoyDOB: [place] [address] Insurance:[facility] [id number] *[place] [address]Tel: [phone]) Number: Repository [phone] () [id number] Date:5800-51-45AZVY CLAIMS [address] [address]GA: 07/27/2017 Secondary NOT GIVENUNK [place] Insurance:SELF PAY [facility] Number: Effective Repository Date:2017-07-27 07/27/2017 Fadi E [id number] E Primary Fadi E MccoyDOB: [place] [address] Insurance:[facility] [id number] *[place] [address]Tel: [phone]) Number: Repository [phone] () [id number] Date:3177-55-07EOIA CLAIMS [address] [address]LV: 07/27/2017 Secondary NOT GIVENUNK [place] Insurance:SELF PAY [facility] Number: Effective Repository Date:2017-07-27 07/27/2017 Fadi E [id number] E Primary Fadi E MccoyDOB: [place] [address] Insurance:[facility] [id number] *[place] [address]Tel: [phone]) Number: Repository [phone] () [id number] Date:8922-18-10EOMD CLAIMS [address] [address]JO: 07/27/2017 Secondary NOT GIVENUNK [place] Insurance:SELF PAY [facility] Number: Effective Repository Date:2017-07-27 07/27/2017 Fadi E [id number] E Primary Fadi E MccoyDOB: [place] [address] Insurance:[facility] [id number] [address] *[place] [address]Tel: [phone]) Number: Repository [phone] () [id number] Date:3664-76-61NZGT CLAIMS [address] [address]RB: 07/27/2017 Secondary NOT GIVENUNK [place] Insurance:SELF PAY [facility] Number: Effective Repository Date:2017-07-27 07/25/2017 Fadi E [id number] E Primary Fadi E MccoyDOB: [place] [address] Insurance:[facility] [id number] [address] *[place] [address]Tel: [phone]) Number: Repository [phone] () [id number] Date:0433-35-88ISKT CLAIMS [address] [address]BV: 07/25/2017 Secondary NOT GIVENUNK [place] Insurance:SELF PAY [facility] Number: Effective Repository Date:2017-07-17 07/22/2017 Fadi E [id number] E Primary Fadi E MccoyDOB: [place] [address] Insurance:[facility] [id number] [address] *[place] [address]Tel: [phone]) Number: Repository [phone] () [id number] Date:9865-49-56JIMF CLAIMS [address] [address]QL: 07/22/2017 Secondary NOT GIVENUNK [place] Insurance:SELF PAY [facility] Number: Effective Repository Date:2017-07-12 07/12/2017 Fadi E [id number] E Primary Fadi E MccoyDOB: [place] [address] Insurance:[facility] [id number] *[place] [address]Tel: [phone]) Number: Repository [phone] () [id number] Date:6229-20-76KUSR CLAIMS [address] [address]VW: 07/12/2017 Secondary NOT GIVENUNK [place] Insurance:SELF PAY [facility] Number: Effective Repository Date:2017-07-03 07/12/2017 Fadi E [id number] E Primary Fadi E MccoyDOB: [place] [address] Insurance:[facility] [id number] *[place] [address]Tel: [phone]) Number: Repository [phone] () [id number] Date:4703-89-20GKCU CLAIMS [address] [address]XM: 07/12/2017 Secondary NOT GIVENUNK [place] Insurance:SELF PAY [facility] Number: Effective Repository Date:2017-07-06 07/11/2017 Fadi E [id number] E Primary Fadi E MccoyDOB: [place] [address] Insurance:[facility] [id number] *[place] [address]Tel: [phone]) Number: Repository [phone] () [id number] Date:5213-35-52APBI CLAIMS [address] [address]HO: 07/11/2017 Secondary NOT GIVENUNK [place] Insurance:SELF PAY [facility] Number: Effective Repository Date:2017-06-11 07/05/2017 Fadi E [id number] E Primary Fadi E MccoyDOB: [place] [address] [facility] [id number] *[place] [address]Tel: [phone]) Number: Repository [phone] HP) [id number] Date:9797-18-22CUTI CLAIMS [address] [place] [address]BT: 07/05/2017 Secondary NOT GIVENUNK [place] Insurance:[facility]LF PAY [facility] Effective Repository Date:2017-07-05
== END ==
PROVIDERS: Family Provider Family Medicine Geriatric Medicine; PCP Family Medicine Geriatric Medicine; Referring Provider Family Medicine Geriatric Medicine; Visit Provider Family Medicine Geriatric Medicine
DX: R68.83 Chills (without fever) (principal)
CPT/HCPCS: 87633

== ENCOUNTER 2018-06-06 15:45 | Outpatient (RCR) | payer MEDICARE, SELFPAY ==
[2018-05-11 00:52] VITALS: BP 137/72; PULSE 97; RESP 18; TEMP 36.2
[2018-05-16 15:30] VITALS: PULSE 64; RESP 16; TEMP 36.1; BMI 32.1
--- NOTE | 2018-05-16 19:40 | PCM.WC.PN ---
(1) Chronic ulcer of left foot with fat layer exposed Status: Resolved Current Visit: Yes Code(s): L97.522 - Non-pressure chronic ulcer of other part of left foot with fat layer exposed Comment: left plantar foot DFU (2) Non-pressure chronic ulcer of other part of left foot with fat layer exposed Status: Chronic Current Visit: Yes Code(s): L97.522 - Non-pressure chronic ulcer of other part of left foot with fat layer exposed Comment: dorsal left medial foot (3) Skin ulcer of third toe of right foot with fat layer exposed Status: Acute Current Visit: Yes Code(s): L97.512 - Non-pressure chronic ulcer of other part of right foot with fat layer exposed (4) Delayed wound healing Status: Chronic Current Visit: Yes Code(s): T14.8 - Other injury of unspecified body region (5) Diabetes mellitus with neuropathy Status: Chronic Current Visit: Yes Code(s): E11.40 - Type 2 diabetes mellitus with diabetic neuropathy, unspecified (6) PAD (peripheral artery disease) Status: Chronic Current Visit: Yes Code(s): I73.9 - Peripheral vascular disease, unspecified (7) Type 2 diabetes mellitus with diabetic polyneuropathy Status: Chronic Current Visit: Yes Code(s): E11.42 - Type 2 diabetes mellitus with diabetic polyneuropathy Type of Wound Date of Service: 05/16/18 Chief Complaint: diabetic Left foot ulcer and right third toe ulcer History of Wound: This 68-year-old male who presents to the wound healing center today with complaint of recurrent left plantar foot ulcer and also an ulceration on his right third toe. He is unsure when these ulcerations occurred but states that they have occurred over the last month. He states that he has been seen by podiatry in the office and has a prescription for offloading shoes, which he has yet to picking supervisor. He currently is not using any offloading mechanisms. He was seen here previously by Dr. abebe. He has a past medical history as listed above. He states that the left plantar foot ulcer is recurrent and a chronic concern for him. He has not been using any [id number] treatments at this time. He denies any purulent drainage, increasing pain, malodor, redness, or systemic signs of infection such as fever chills. He does state that his chronic neuropathy interferes with the sensation of his feet. The patient otherwise denies any fever, chills, nausea, vomiting, shortness of breath, chest pain or pressure, palpitations, orthopnea, lower extremity edema, syncope or presyncopal episodes. Progress of Wound: Ulcers are stable at this time, patient denies any symptoms of systemic or localized infection, patient is noncompliant with utilizing offloading shoe at all times, but states he was compliant with his daily dressing changes. Wound cultures from previous showed staph aureus, Proteus mirabilis, Klebsiella, and anaerobic cocci, patient was started on an antibiotic of Augmentin, and completed this. He has not followed up with endocrinology yet, but has an appointment in a week to get better control of his blood sugars. 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 Skin: Ulcer/ Wound - See nursing documentation, right third toe with adherent slough to wound bed, left plantar DFU with callused wound edges and slough in center of the wound, no signs of infection, left dorsal medial DFU with slough Wound Measurements and Assessment WC - Nurse 1 - General Ulcer Measurement Start: 05/16/18 15:29 Freq: Status: Active Protocol: Activity Type Activity Date Activity User E-Sign Co-Sign Detail Recorded Client Recorded Date Recorded By Document 05/16/18 15:30 DV [id number] 05/16/18 15:37 DV 05/16/18 15:30 Wound Center Nurse 1 [Ulcer Assessment] #23 Left dorsal Foot -Combined with other wound No -Current Size (cm) - Length 0.4 -Current Size (cm) - Width 0.4 -Current Size (cm) - Depth 0.1 -Total Square Cm 0.16 -Photo Taken No -Epithelialization None Present -Undermining/Tunneling No -Circular Undermining No -Exudate Amt Small (1-33%) -Exudate Type Serosanguineous -Wound Margin Flat & Intact -Granulation Amt None Present (0 %) -Granulation Quality N/A -Slough/Fibrin No -Necrosis Amt None Present (0 %) -Necrotic Tissue Type Adherent Slough -Structure Exposed None/Limited to Skin Breakdown -Texture (Maggy-wound Skin Appearance) No Abnormality Assessed -Moisture (Maggy-wound Skin Appearance Assessed ) Dry/Scaly -Color (Maggy-wound Skin Appearance) No Abnormality Assessed -Temperature (Maggy-wound Skin No Abnormality Appearance) (Pt Warm) -Tenderness on Palpation (Maggy-wound No Skin Appearance) -Ulcer Cleansing Rinsed/ Irrigated with Saline -Foul Odor after Cleansing No -Anesthetic Used 5% Lidocaine Gel # 22 RIGHT 3rd TOE ANTERIOR -Combined with other wound No -Current Size (cm) - Length 0.7 -Current Size (cm) - Width 0.9 -Current Size (cm) - Depth 0.1 -Total Square Cm 0.63 -Photo Taken No -Epithelialization None Present -Undermining/Tunneling No -Circular Undermining No -Wound Margin Indistinct, Non -Visible -Granulation Amt None Present (0 %) -Granulation Quality N/A -Necrosis Amt Small (1-33%) -Necrotic Tissue Type Adherent Slough -Structure Exposed None/Limited to Skin Breakdown -Texture (Maggy-wound Skin Appearance) Assessed Localized Edema Scarring -Moisture (Maggy-wound Skin Appearance Dry/Scaly ) -Color (Maggy-wound Skin Appearance) Assessed Erythema -Temperature (Maggy-wound Skin No Abnormality Appearance) (Pt Warm) -Tenderness on Palpation (Maggy-wound No Skin Appearance) -Ulcer Cleansing Rinsed/ Irrigated with Saline -Foul Odor after Cleansing No -Anesthetic Used 5% Lidocaine Gel #21 LEFT PLANTAR FOOT -Combined with other wound No -Current Size (cm) - Length 1.5 -Current Size (cm) - Width 0.1 -Current Size (cm) - Depth 0.2 -Total Square Cm 0.15 -Photo Taken No -Epithelialization None Present -Tunneling No -Undermining/Tunneling No -Circular Undermining No -Classification - Thickness Full Thickness without Exposed Support Structure -Exudate Amt None Present (0 %) -Wound Margin Indistinct, Non -Visible -Granulation Amt None Present (0 %) -Granulation Quality N/A -Slough/Fibrin No -Necrosis Amt Large (67-100%) -Necrotic Tissue Type Adherent Slough -Structure Exposed None/Limited to Skin Breakdown -Texture (Maggy-wound Skin Appearance) Assessed Localized Edema -Moisture (Maggy-wound Skin Appearance Dry/Scaly ) -Color (Maggy-wound Skin Appearance) Assessed Erythema -Temperature (Maggy-wound Skin No Abnormality Appearance) (Pt Warm) -Tenderness on Palpation (Maggy-wound No Skin Appearance) -Ulcer Cleansing Rinsed/ Irrigated with Saline -Foul Odor after Cleansing No -Anesthetic Used 5% Lidocaine Gel [Edema Assessment] -Lower Limb Edema Present Yes -Right Calf (cm) 36.5 -Right Ankle (cm) 21.5 -Left Calf (cm) 35.9 -Left Ankle (cm) 21.9 WC - Nurse 2 - General Ulcer CM Notes Start: 05/16/18 15:29 Freq: Status: Active Protocol: Activity Type Activity Date Activity User E-Sign Co-Sign Detail Recorded Client Recorded Date Recorded By Document 05/16/18 16:41 [id number] 05/16/18 16:44 05/16/18 16:41 Wound Center Nurse 2 [Procedure/Treatment] #23 Left dorsal Foot -Time 16:42 -Correct Patient Yes -Correct Side, Site, Position Yes -Correct Procedure Yes -Procedure Performed Yes -Type of Procedure Debridement -Clinical Debridement Subcutaneous -Post Debridement Size (cm) - Length 0.3 -Post Debridement Size (cm) - Width 0.3 -Post Debridement Size (cm) - Depth 0.1 -Total Square Cm 0.09 -Wound/Ulcer Outcome Not Healed -Ulcer Cleansing Rinsed/ Irrigated with Saline -Foul Odor after Cleansing No -Bioengineered Tissue No -Topical Lidocaine (%) 5 -Bleeding Controlled with Pressure -Offloading Yes -Type of Offloading Surgical Shoe -Treatment Response Procedure Tolerated Well # 22 RIGHT 3rd TOE ANTERIOR -Time 16:42 -Correct Patient Yes -Correct Side, Site, Position Yes -Correct Procedure Yes -Procedure Performed Yes -Type of Procedure Debridement -Clinical Debridement Subcutaneous -Post Debridement Size (cm) - Length 0.7 -Post Debridement Size (cm) - Width 0.5 -Post Debridement Size (cm) - Depth 0.1 -Total Square Cm 0.35 -Wound/Ulcer Outcome Not Healed -Ulcer Cleansing Rinsed/ Irrigated with Saline -Foul Odor after Cleansing No -Bioengineered Tissue No -Topical Lidocaine (%) 5 -Bleeding Controlled with Pressure -Offloading Yes -Type of Offloading Surgical Shoe -Treatment Response Procedure Tolerated Well #21 LEFT PLANTAR FOOT -Time 16:43 -Correct Patient Yes -Correct Side, Site, Position Yes -Correct Procedure Yes -Procedure Performed Yes -Type of Procedure Debridement -Clinical Debridement Subcutaneous -Post Debridement Size (cm) - Length 0.8 -Post Debridement Size (cm) - Width 0.3 -Post Debridement Size (cm) - Depth 0.3 -Total Square Cm 0.24 -Wound/Ulcer Outcome Not Healed -Ulcer Cleansing Rinsed/ Irrigated with Saline -Foul Odor after Cleansing No -Bioengineered Tissue No -Topical Lidocaine (%) 5 -Bleeding Controlled with Pressure -Offloading Yes -Type of Offloading Surgical Shoe -Treatment Response Procedure Tolerated Well [See Physician Procedure note for Specifics] Pain Scale: 0-10 Numeric [Pain] -Is Patient Pain Free? Yes Musculoskeletal: No Muscle Wasting Neurological: - - Lack of sensation to bilateral lower extremities, consistent with diabetic neuropathy Psych/Mental Status: Normal Affect, Appropriate, Alert and oriented to time, place, person, mood and affect Debridement Note Post-Debridement Measurements/Treatment WC - Nurse 2 - General Ulcer CM Notes Start: 05/16/18 15:29 Freq: Status: Active Protocol: Activity Type Activity Date Activity User E-Sign Co-Sign Detail Recorded Client Recorded Date Recorded By Document 05/16/18 16:41 [id number] 05/16/18 16:44 05/16/18 16:41 Wound Center Nurse 2 #23 Left dorsal Foot -Time 16:42 -Correct Patient Yes -Correct Side, Site, Position Yes -Correct Procedure Yes -Procedure Performed Yes -Type of Procedure Debridement -Clinical Debridement Subcutaneous -Post Debridement Size (cm) - Length 0.3 -Post Debridement Size (cm) - Width 0.3 -Post Debridement Size (cm) - Depth 0.1 -Total Square Cm 0.09 -Wound/Ulcer Outcome Not Healed -Ulcer Cleansing Rinsed/ Irrigated with Saline -Foul Odor after Cleansing No -Bioengineered Tissue No -Topical Lidocaine (%) 5 -Bleeding Controlled with Pressure -Offloading Yes -Type of Offloading Surgical Shoe -Treatment Response Procedure Tolerated Well # 22 RIGHT 3rd TOE ANTERIOR -Time 16:42 -Correct Patient Yes -Correct Side, Site, Position Yes -Correct Procedure Yes -Procedure Performed Yes -Type of Procedure Debridement -Clinical Debridement Subcutaneous -Post Debridement Size (cm) - Length 0.7 -Post Debridement Size (cm) - Width 0.5 -Post Debridement Size (cm) - Depth 0.1 -Total Square Cm 0.35 -Wound/Ulcer Outcome Not Healed -Ulcer Cleansing Rinsed/ Irrigated with Saline -Foul Odor after Cleansing No -Bioengineered Tissue No -Topical Lidocaine (%) 5 -Bleeding Controlled with Pressure -Offloading Yes -Type of Offloading Surgical Shoe -Treatment Response Procedure Tolerated Well #21 LEFT PLANTAR FOOT -Time 16:43 -Correct Patient Yes -Correct Side, Site, Position Yes -Correct Procedure Yes -Procedure Performed Yes -Type of Procedure Debridement -Clinical Debridement Subcutaneous -Post Debridement Size (cm) - Length 0.8 -Post Debridement Size (cm) - Width 0.3 -Post Debridement Size (cm) - Depth 0.3 -Total Square Cm 0.24 -Wound/Ulcer Outcome Not Healed -Ulcer Cleansing Rinsed/ Irrigated with Saline -Foul Odor after Cleansing No -Bioengineered Tissue No -Topical Lidocaine (%) 5 -Bleeding Controlled with Pressure -Offloading Yes -Type of Offloading Surgical Shoe -Treatment Response Procedure Tolerated Well Pain Scale: 0-10 Numeric Is Patient Pain Free? Yes Wound debrided: Right third toe DFU Laterality: Right Wound Grade/Stage: Arnie 1 Type of Debridement: Excisional debridement Anesthesia Used: 5% Lidocaine Gel Depth: in the subcutaneous layer Percentage of wound debrided: 100 Instrument Used: 5mm curette Tissue Removed: Slough and devitalized tissue Severity: Fat Layer Exposed Amount of bleeding with debridement: Mild Bleeding Controlled with: Pressure Patient tolerated procedure well - Additional Wound Wound debrided: Left plantar medial DFU Laterality: Left Wound Grade/Stage: Arnie 1 Type of Debridement: Excisional debridement Anesthesia Used: 5% Lidocaine Gel Depth: in the subcutaneous layer Percentage of wound debrided: 100 Instrument Used: 3mm curette, #15 blade Tissue Removed: Slough, devitalized tissue, callused wound edges Severity: Fat Layer Exposed Amount of bleeding with debridement: Mild Bleeding Controlled with: Pressure Patient tolerated procedure: Patient tolerated procedure well - Additional Wound Wound debrided: Left dorsal medial DFU Laterality: Left Wound Grade/Stage: Arnie 1 Type of Debridement: Excisional debridement Anesthesia Used: 5% Lidocaine Gel Depth: in the subcutaneous layer Percentage of wound debrided: 100 Instrument Used: 3mm curette Tissue Removed: Slough and devitalized tissue Severity: Fat Layer Exposed Amount of bleeding with debridement: Mild Bleeding Controlled with: Pressure Patient tolerated procedure: Patient tolerated procedure well Assessment/Plan Active Problems (Last Reviewed 10/15/17 @ 14:22 by Nataly Christian) Skin ulcer of third toe of right foot with fat layer exposed (Acute) Non-pressure chronic ulcer of other part of left foot with fat layer exposed (Chronic) dorsal left medial foot PAD (peripheral artery disease) (Chronic) Diabetes mellitus with neuropathy (Chronic) Delayed wound healing (Chronic) Type 2 diabetes mellitus with diabetic polyneuropathy (Chronic) Assessment: hardy grade 1 ulcer, left plantar/dorsal foot and right third toe. peripheral vascular disease with recent intervention 2018. diabetes with neuropathy. malnutrition. non compliance history Plan: The patient was seen and examined at the wound center today and was updated on the plan of care. A subcutaneous debridement was performed today. The patient tolerated the procedure well. The patients wound care will consist of: Applying Bonnie daily to left diabetic foot ulcers and Santyl to the right third toe ulcer given the amount of adherent slough. Given patient's DFU's and diabetic neuropathy, will apply for Regranex. Double layer Tubigrip for compression and encourage leg elevation. Wound cultures were collected of the left plantar ulcer and showed anaerobic cocci, staph aureus, Proteus and Klebsiella, patient started on Augmentin twice daily which he completed and instructed to take Culturelle. Baseline bloodwork reviewed and ESR elevated at 66, A1c elevated at 8.5 (referred to endocrinology, has appointment next week), GFR diminished at 46, and prealbumin within normal limits at 24. Instructed to follow-up with PCP and endo for tighter glucose control. Vascular studies ordered and pending, patient recently did have intervention in July [address] Redding, records were requested. Patient educated on the importance of diet and blood sugar control on wound healing and instructed to increase protein and vitamin C intake. Patient verbalized understanding. Patient will follow up at wound healing center in one week or sooner if needed. Patient is to resume his nutritional supplementation of Glucerna high-protein. Did discuss with patient the importance of offloading, he continues to be noncompliant with his offloading shoes. A prescription was given for extra-depth diabetic shoes with dual density Plastizote offloading liners including a left toe filler, he picked this up but has not utilized it yet. Patient was strongly encouraged to pick this up and to remain compliant with offloading. This note was generated with [employer] dictation software. It may contain incorrect words, spelling, and punctuation that were not noted in checking the note before signing Code Visit [id number]: [id number] Rin subq tissue 20 sq cm/<
--- NOTE | 2018-05-19 09:44 | PN.PCM_ITS ---
(1) Chronic ulcer of left foot with fat layer exposed Status: Resolved Current Visit: Yes Code(s): L97.522 - Non-pressure chronic ulcer of other part of left foot with fat layer exposed Comment: left plantar foot DFU (2) Non-pressure chronic ulcer of other part of left foot with fat layer exposed Status: Chronic Current Visit: Yes Code(s): L97.522 - Non-pressure chronic ulcer of other part of left foot with fat layer exposed Comment: dorsal left medial foot (3) Skin ulcer of third toe of right foot with fat layer exposed Status: Acute Current Visit: Yes Code(s): L97.512 - Non-pressure chronic ulcer of other part of right foot with fat layer exposed (4) Delayed wound healing Status: Chronic Current Visit: Yes Code(s): T14.8 - Other injury of un specified body region (5) Diabetes mellitus with neuropathy Status: Chronic Current Visit: Yes Code(s): E11.40 - Type 2 diabetes mellitus with diabetic neuropathy, unspecified (6) PAD (peripheral artery disease) Status: Chronic Current Visit: Yes Code(s): I73.9 - Peripheral vascular disease, unspecified (7) Type 2 diabetes mellitus with diabetic polyneuropathy Status: Chronic Current Visit: Yes Code(s): E11.42 - Type 2 diabetes mellitus with diabetic polyneuropathy Type of Wound Date of Service: 05/16/18 Chief Complaint: diabetic Left foot ulcer and right third toe ulcer History of Wound: This 68-year-old male who presents to the wound healing center today with complaint of recurrent left plantar foot ulcer and also an ulceration on his right third toe. He is unsure when these ulcerations occurred but states that they have occurred over the last month. He states that he has been seen by podiatry in the office and has a prescription for offloading shoes, which he has yet to fern picker. He currently is not using any offloading mechanisms. He was seen here previously by Dr. abebe. He has a past medical history as listed above. He states that the left plantar foot ulcer is recurrent and a chronic c oncern for him. He has not been using any [id number] treatments at this time. He denies any purulent drainage, increasing pain, malodor, redness, or systemic signs of infection such as fever chills. He does state that his chronic neuropathy interferes with the sensation of his feet. The patient otherwise denies any fever, chills, nausea, vomiting, shortness of breath, chest pain or pressure, palpitations, orthopnea, lower extremity edema, syncope or presyncopal episodes. Progress of Wound: Ulcers are stable at this time, patient denies any symptoms of systemic or localized infection, patient is noncompliant with utilizing offloading shoe at all times, but states he was compliant with his daily dressing changes. Wound cultures from previous showed staph aureus, Proteus mirabilis, Klebsiella, and anaerobic cocci, patient was started on an antibiotic of Augmentin, and completed this. He has not followed up with endocrinology yet, but has an appointment in a week to get better control of his blood sugars. 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 Skin: Ulcer/ Wound - See nursing documentation, right third toe with adherent slough to wound bed, left plantar DFU with callused wound edges and slough in center of the wound, no signs of infection, left dorsal medial DFU with slough Wound Measurements and Assessment WC - Nurse 1 - General Ulcer Measurement Start: 05/16/18 15:29 Freq: Status: Active Protocol: Activity Type Activity Date Activity User E-Sign Co-Sign Detail Recorded Client Recorded Date Recorded By Document 05/16/18 15:30 DV [id number] 05/16/18 15:37 DV 05/16/18 15:30 Wound Center Nurse 1 [Ulcer Assessment] #23 Left dorsal Foot -Combined with other wound No -Current Size (cm) - Length 0.4 -Current Size (cm) - Width 0.4 -Current Size (cm) - Depth 0.1 -Total Square Cm 0.16 -Photo Taken No -Epithelialization None Present -Undermining/Tunneling No -Circular Undermining No -Exudate Amt Small (1-33%) -Exudate Type Serosanguineous -Wound Margin Flat & Intact -Granulation Amt None Present (0 %) -Granulation Quality N/A -Slough/Fibrin No -Necrosis Amt None Present (0 %) -Necrotic Tissue Type Adherent Slough -Structure Exposed None/Limited to Skin Breakdown -Texture (Maggy-wound Skin Appearance) No Abnormality Assessed -Moisture (Maggy-wound Skin Appearance Assessed ) Dry/Scaly -Color (Maggy-wound Skin Appearance) No Abnormality Assessed -Temperature (Maggy-wound Skin No Abnormality Appearance) (Pt Warm) -Tenderness on Palpation (Maggy-wound No Skin Appearance) -Ulcer Cleansing Rinsed/ Irrigated with Saline -Foul Odor after Cleansing No -Anesthetic Used 5% Lidocaine Gel # 22 RIGHT 3rd TOE ANTERIOR -Combined with other wound No -Current Size (cm) - Length 0.7 -Current Size (cm) - Width 0.9 -Current Size (cm) - Depth 0.1 -Total Square Cm 0.63 -Photo Taken No -Epithelialization None Present -Undermining/Tunneling No -Circular Undermining No -Wound Margin Indistinct, Non -Visible -Granulation Amt None Present (0 %) -Granulation Quality N/A -Necrosis Amt Small (1-33%) -Necrotic Tissue Type Adherent Slough -Structure Exposed None/Limited to Skin Breakdown -Texture (Maggy-wound Skin Appearance) Assessed Localized Edema Scarring -Moisture (Maggy-wound Skin Appearance Dry/Scaly ) -Color (Maggy-wound Skin Appearance) Assessed Erythema -Temperature (Maggy-wound Skin No Abnormality Appearance) (Pt Warm) -Tenderness on Palpation (Maggy-wound No Skin Appearance) -Ulcer Cleansing Rinsed/ Irrigated with Saline -Foul Odor after Cleansing No -Anesthetic Used 5% Lidocaine Gel #21 LEFT PLANTAR FOOT -Combined with other wound No -Current Size (cm) - Length 1.5 -Current Size (cm) - Width 0.1 -Current Size (cm) - Depth 0.2 -Total Square Cm 0.15 -Photo Taken No -Epithelialization None Present -Tunneling No -Undermining/Tunneling No -Circular Undermining No -Classification - Thickness Full Thickness without Exposed Support Structure -Exudate Amt None Present (0 %) -Wound Margin Indistinct, Non -Visible -Granulation Amt None Present (0 %) -Granulation Quality N/A -Slough/Fibrin No -Necrosis Amt Large (67-100%) -Necrotic Tissue Type Adherent Slough -Structure Exposed None/Limited to Skin Breakdown -Texture (Maggy-wound Skin Appearance) Assessed Localized Edema -Moisture (Maggy-wound Skin Appearance Dry/Scaly ) -Color (Maggy-wound Skin Appearance) Assessed Erythema -Temperature (Maggy-wound Skin No Abnormality Appearance) (Pt Warm) -Tenderness on Palpation (Maggy-wound No Skin Appearance) -Ulcer Cleansing Rinsed/ Irrigated with Saline -Foul Odor after Cleansing No -Anesthetic Used 5% Lidocaine Gel [Edema Assessment] -Lower Limb Edema Present Yes -Right Calf (cm) 36.5 -Right Ankle (cm) 21.5 -Left Calf (cm) 35.9 -Left Ankle (cm) 21.9 WC - Nurse 2 - General Ulcer CM Notes Start: 05/16/18 15:29 Freq: Status: Active Protocol: Activity Type Activity Date Activity User E-Sign Co-Sign Detail Recorded Client Recorded Date Recorded By Document 05/16/18 16:41 [id number] 05/16/18 16:44 05/16/18 16:41 Wound Center Nurse 2 [Procedure/Treatment] #23 Left dorsal Foot -Time 16:42 -Correct Patient Yes -Correct Side, Site, Position Yes -Correct Procedure Yes -Procedure Performed Yes -Type of Procedure Debridement -Clinical Debridement Subcutaneous -Post Debridement Size (cm) - Length 0.3 -Post Debridement Size (cm) - Width 0.3 -Post Debridement Size (cm) - Depth 0.1 -Total Square Cm 0.09 -Wound/Ulcer Outcome Not Healed -Ulcer Cleansing Rinsed/ Irrigated with Saline -Foul Odor after Cleansing No -Bioengineered Tissue No -Topical Lidocaine (%) 5 -Bleeding Controlled with Pressure -Offloading Yes -Type of Offloading Surgical Shoe -Treatment Response Procedure Tolerated Well # 22 RIGHT 3rd TOE ANTERIOR -Time 16:42 -Correct Patient Yes -Correct Side, Site, Position Yes -Correct Procedure Yes -Procedure Performed Yes -Type of Procedure Debridement -Clinical Debridement Subcutaneous -Post Debridement Size (cm) - Length 0.7 -Post Debridement Size (cm) - Width 0.5 -Post Debridement Size (cm) - Depth 0.1 -Total Square Cm 0.35 -Wound/Ulcer Outcome Not Healed -Ulcer Cleansing Rinsed/ Irrigated with Saline -Foul Odor after Cleansing No -Bioengineered Tissue No -Topical Lidocaine (%) 5 -Bleeding Controlled with Pressure -Offloading Yes -Type of Offloading Surgical Shoe -Treatment Response Procedure Tolerated Well #21 LEFT PLANTAR FOOT -Time 16:43 -Correct Patient Yes -Correct Side, Site, Position Yes -Correct Procedure Yes -Procedure Performed Yes -Type of Procedure Debridement -Clinical Debridement Subcutaneous -Post Debridement Size (cm) - Length 0.8 -Post Debridement Size (cm) - Width 0.3 -Post Debridement Size (cm) - Depth 0.3 -Total Square Cm 0.24 -Wound/Ulcer Outcome Not Healed -Ulcer Cleansing Rinsed/ Irrigated with Saline -Foul Odor after Cleansing No -Bioengineered Tissue No -Topical Lidocaine (%) 5 -Bleeding Controlled with Pressure -Offloading Yes -Type of Offloading Surgical Shoe -Treatment Response Procedure Tolerated Well [See Physician Procedure note for Specifics] Pain Scale: 0-10 Numeric [Pain] -Is Patient Pain Free? Yes Musculoskeletal: No Muscle Wasting Neurological: - - Lack of sensation to bilateral lower extremities, consistent with diabetic neuropathy Psych/Mental Status: Normal Affect, Appropriate, Alert and oriented to time, place, person, mood and affect Debridement Note Post-Debridement Measurements/Treatment WC - Nurse 2 - General Ulcer CM Notes Start: 05/16/18 15:29 Freq: Status: Active Protocol: Activity Type Activity Date Activity User E-Sign Co-Sign Detail Recorded Client Recorded Date Recorded By Document 05/16/18 16:41 [id number] 05/16/18 16:44 05/16/18 16:41 Wound Center Nurse 2 #23 Left dorsal Foot -Time 16:42 -Correct Patient Yes -Correct Side, Site, Position Yes -Correct Procedure Yes -Procedure Performed Yes -Type of Procedure Debridement -Clinical Debridement Subcutaneous -Post Debridement Size (cm) - Length 0.3 -Post Debridement Size (cm) - Width 0.3 -Post Debridement Size (cm) - Depth 0.1 -Total Square Cm 0.09 -Wound/Ulcer Outcome Not Healed -Ulcer Cleansing Rinsed/ Irrigated with Saline -Foul Odor after Cleansing No -Bioengineered Tissue No -Topical Lidocaine (%) 5 -Bleeding Controlled with Pressure -Offloading Yes -Type of Offloading Surgical Shoe -Treatment Response Procedure Tolerated Well # 22 RIGHT 3rd TOE ANTERIOR -Time 16:42 -Correct Patient Yes -Correct Side, Site, Position Yes -Correct Procedure Yes -Procedure Performed Yes -Type of Procedure Debridement -Clinical Debridement Subcutaneous -Post Debridement Size (cm) - Length 0.7 -Post Debridement Size (cm) - Width 0.5 -Post Debridement Size (cm) - Depth 0.1 -Total Square Cm 0.35 -Wound/Ulcer Outcome Not Healed -Ulcer Cleansing Rinsed/ Irrigated with Saline -Foul Odor after Cleansing No -Bioengineered Tissue No -Topical Lidocaine (%) 5 -Bleeding Controlled with Pressure -Offloading Yes -Type of Offloading Surgical Shoe -Treatment Response Procedure Tolerated Well #21 LEFT PLANTAR FOOT -Time 16:43 -Correct Patient Yes -Correct Side, Site, Position Yes -Correct Procedure Yes -Procedure Performed Yes -Type of Procedure Debridement -Clinical Debridement Subcutaneous -Post Debridement Size (cm) - Length 0.8 -Post Debridement Size (cm) - Width 0.3 -Post Debridement Size (cm) - Depth 0.3 -Total Square Cm 0.24 -Wound/Ulcer Outcome Not Healed -Ulcer Cleansing Rinsed/ Irrigated with Saline -Foul Odor after Cleansing No -Bioengineered Tissue No -Topical Lidocaine (%) 5 -Bleeding Controlled with Pressure -Offloading Yes -Type of Offloading Surgical Shoe -Treatment Response Procedure Tolerated Well Pain Scale: 0-10 Numeric Is Patient Pain Free? Yes Wound debrided: Right third toe DFU Laterality: Right Wound Grade/Stage: Arnie 1 Type of Debridement: Excisional debridement Anesthesia Used: 5% Lidocaine Gel Depth: in the subcutaneous layer Percentage of wound debrided: 100 Instrument Used: 5mm curette Tissue Removed: Slough and devitalized tissue Severity: Fat Layer Exposed Amount of bleeding with debridement: Mild Bleeding Controlled with: Pressure Patient tolerated procedure well - Additional Wound Wound debrided: Left plantar medial DFU Laterality: Left Wound Grade/Stage: Arnei 1 Type of Debridement: Excisional debridement Anesthesia Used: 5% Lidocaine Gel Depth: in the subcutaneous layer Percentage of wound debrided: 100 Instrument Used: 3mm curette, #15 blade Tissue Removed: Slough, devitalized tissue, callused wound edges Severity: Fat Layer Exposed Amount of bleeding with debridement: Mild Bleeding Controlled with: Pressure Patient tolerated procedure: Patient tolerated procedure well - Additional Wound Wound debrided: Left dorsal medial DFU Laterality: Left Wound Grade/Stage: Arnie 1 Type of Debridement: Excisional debridement Anesthesia Used: 5% Lidocaine Gel Depth: in the subcutaneous layer Percentage of wound debrided: 100 Instrument Used: 3mm curette Tissue Removed: Slough and devitalized tissue Severity: Fat Layer Exposed Amount of bleeding with debridement: Mild Bleeding Controlled with: Pressure Patient tolerated procedure: Patient tolerated procedure well Assessment/Plan Active Problems (Last Reviewed 10/15/17 @ 14:22 by Nataly Christian) Skin ulcer of third toe of right foot with fat layer exposed (Acute) Non-pressure chronic ulcer of other part of left foot with fat layer exposed (Chronic) dorsal left medial foot PAD (peripheral artery disease) (Chronic) Diabetes mellitus with neuropathy (Chronic) Delayed wound healing (Chronic) Type 2 diabetes mellitus with diabetic polyneuropathy (Chronic) Assessment: hardy grade 1 ulcer, left plantar/dorsal foot and right third toe. peripheral vascular disease with recent intervention 2018. diabetes with neuropathy. malnutrition. non compliance history Plan: The patient was seen and examined at the wound center today and was updated on the plan of care. A subcutaneous debridement was performed today. The patient tolerated the procedure well. The patients wound care will consist of: Applying Bonnie daily to left diabetic foot ulcers and Santyl to the right third toe ulcer given the amount of adherent slough. Given patient's DFU's and diabetic neuropathy, will apply for Regranex. Double layer Tubigrip for compression and encourage leg elevation. Wound cultures were collected of the left plantar ulcer and showed anaerobic cocci, staph aureus, Proteus and Klebsiella, patient started on Augmentin twice daily which he completed and instructed to take Culturelle. Baseline bloodwork reviewed and ESR elevated at 66, A1c elevated at 8.5 (referred to endocrinology, has appointment next week), GFR diminished at 46, and prealbumin within normal limits at 24. Instructed to follow-up with PCP and endo for tighter glucose control. Vascular studies ordered and pending, patient recently did have intervention in July [address] Redding, records were requested. Patient educated on the importance of diet and blood sugar control on wound healing and instructed to increase protein and vitamin C intake. Patient verbalized understanding. Patient will follow up at wound healing center in one week or sooner if needed. Patient is to resume his nutritional supplementation of Glucerna high-protein. Did discuss with patient the importance of offloading, he continues to be noncompliant with his offloading shoes. A prescription was given for extra-depth diabetic shoes with dual density Plastizote offloading liners including a left toe filler, he picked this up but has not utilized it yet. Patient was strongly encouraged to pick this up and to remain compliant with offloading. This note was generated with [employer] dictation software. It may contain incorrect words, spelling, and punctuation that were not noted in checking the note before signing Code Visit [id number]: [id number] Rin subq tissue 20 sq cm/<
[2018-05-30 15:19] VITALS: BP 141/54; PULSE 73; RESP 18; TEMP 36.1; BMI 32.1
--- NOTE | 2018-05-30 20:00 | PCM.WC.PN ---
(1) Chronic ulcer of left foot with fat layer exposed Status: Resolved Code(s): L97.522 - Non-pressure chronic ulcer of other part of left foot with fat layer exposed Comment: left plantar foot DFU (2) Non-pressure chronic ulcer of other part of left foot with fat layer exposed Status: Chronic Code(s): L97.522 - Non-pressure chronic ulcer of other part of left foot with fat layer exposed Comment: dorsal left medial foot (3) Skin ulcer of third toe of right foot with fat layer exposed Status: Acute Code(s): L97.512 - Non-pressure chronic ulcer of other part of right foot with fat layer exposed (4) Delayed wound healing Status: Chronic Code(s): T14.8 - Other injury of unspecified body region (5) Diabetes mellitus with neuropathy Status: Chronic Code(s): E11.40 - Type 2 diabetes mellitus with diabetic neuropathy, unspecified (6) PAD (peripheral artery disease) Status: Chronic Code(s): I73.9 - Peripheral vascular disease, unspecified (7) Type 2 diabetes mellitus with diabetic polyneuropathy Status: Chronic Code(s): E11.42 - Type 2 diabetes mellitus with diabetic polyneuropathy Type of Wound Date of Service: 05/30/18 Chief Complaint: diabetic Left foot ulcers and right third toe ulcer History of Wound: This 68-year-old male who presents to the wound healing center today with complaint of recurrent left plantar foot ulcer and also an ulceration on his right third toe. He is unsure when these ulcerations occurred but states that they have occurred over the last month. 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 He currently is not using any offloading mechanisms. He was seen here previously by Dr. abebe. He has a past medical history as listed above. He states that the left plantar foot ulcer is recurrent and a chronic concern for him. He has not been using any [id number] treatments at this time. He denies any purulent drainage, increasing pain, malodor, redness, or systemic signs of infection such as fever chills. He does state that his chronic neuropathy interferes with the sensation of his feet. The patient otherwise denies any fever, chills, nausea, vomiting, shortness of breath, chest pain or pressure, palpitations, orthopnea, lower extremity edema, syncope or presyncopal episodes. Progress of Wound: Ulcers of the left foot are improved, left dorsal ulcer healed, right third toe ulcer stable at this time, patient denies any symptoms of systemic or localized infection, patient is noncompliant with utilizing offloading shoe at all times, but states he was compliant with his daily dressing changes. Wound cultures from previous showed staph aureus, Proteus mirabilis, Klebsiella, and anaerobic cocci, patient was started on an antibiotic of Augmentin, and completed this. He has not followed up with endocrinology yet, but has an appointment next month to get better control of his blood sugars. - Physical Exam Vital Signs Temp Pulse Resp BP 97 F L 73 18 141/54 H 05/30/18 15:19 05/30/18 15:19 05/30/18 15:19 05/30/18 15:19 General: Alert, Oriented x3, Cooperative, No apparent distress HEENT: Atraumatic Lungs: Clear to auscultation Cardiovascular: Regular rate Abdomen: Distended Extremities: No clubbing, No cyanosis, Diminished Peripheral Pulses - Diminished dorsal pedis pulses bilaterally, Edema - Generalized bilateral lower extremity edema with chronic venous changes Skin: Ulcer/ Wound - See nursing documentation, right third toe ulcer with adherent slough present to wound bed, surrounding tissue slightly reddened therefore wound cultures were repeated. Left dorsal ulcer healed and left plantar ulcer with hyperkeratotic wound edges, otherwise no signs of infection Neurological: - - Neurovascular sensation to bilateral lower extremities diminished Psych/Mental Status: Normal Affect, Appropriate, Alert and oriented to time, place, person, mood and affect Debridement Note Post-Debridement Measurements/Treatment WC - Nurse 2 - General Ulcer CM Notes Start: 05/16/18 15:29 Freq: Status: Active Protocol: Activity Type Activity Date Activity User E-Sign Co-Sign Detail Recorded Client Recorded Date Recorded By Document 05/16/18 16:41 TM [id number] 05/16/18 16:44 TM Document 05/30/18 16:16 CS [id number] 05/30/18 16:18 CS 05/16/18 05/30/18 16:41 16:16 Wound Center Nurse 2 #23 Left dorsal Foot -Time 16:42 16:17 -Correct Patient Yes -Correct Side, Site, Position Yes -Correct Procedure Yes -Procedure Performed Yes -Type of Procedure Debridement -Clinical Debridement Subcutaneous -Post Debridement Size (cm) - Length 0.3 0.1 -Post Debridement Size (cm) - Width 0.3 0.1 -Post Debridement Size (cm) - Depth 0.1 0.1 -Total Square Cm 0.09 0.01 -Wound/Ulcer Outcome Not Healed Healed- Epithelialized -Ulcer Cleansing Rinsed/ Irrigated with Saline -Foul Odor after Cleansing No -Bioengineered Tissue No -Topical Lidocaine (%) 5 -Bleeding Controlled with Pressure -Offloading Yes -Type of Offloading Surgical Shoe -Treatment Response Procedure Tolerated Well # 22 RIGHT 3rd TOE ANTERIOR -Time 16:42 16:16 -Correct Patient Yes Yes -Correct Side, Site, Position Yes Yes -Correct Procedure Yes Yes -Procedure Performed Yes Yes -Type of Procedure Debridement Debridement -Clinical Debridement Subcutaneous Subcutaneous -Post Debridement Size (cm) - Length 0.7 0.5 -Post Debridement Size (cm) - Width 0.5 0.6 -Post Debridement Size (cm) - Depth 0.1 0.2 -Total Square Cm 0.35 0.30 -Wound/Ulcer Outcome Not Healed Not Healed -Ulcer Cleansing Rinsed/ Not Cleansed Irrigated with Saline -Foul Odor after Cleansing No No -Bioengineered Tissue No No -Topical Lidocaine (%) 5 -Bleeding Controlled with Pressure NA -Offloading Yes No -Type of Offloading Surgical Shoe -Treatment Response Procedure Procedure Tolerated Well Tolerated Well #21 LEFT PLANTAR FOOT -Time 16:43 16:17 -Correct Patient Yes Yes -Correct Side, Site, Position Yes Yes -Correct Procedure Yes Yes -Procedure Performed Yes Yes -Type of Procedure Debridement Debridement -Clinical Debridement Subcutaneous Subcutaneous -Post Debridement Size (cm) - Length 0.8 0.1 -Post Debridement Size (cm) - Width 0.3 0.1 -Post Debridement Size (cm) - Depth 0.3 0.1 -Total Square Cm 0.24 0.01 -Wound/Ulcer Outcome Not Healed Not Healed -Ulcer Cleansing Rinsed/ Not Cleansed Irrigated with Saline -Foul Odor after Cleansing No No -Bioengineered Tissue No No -Topical Lidocaine (%) 5 -Bleeding Controlled with Pressure NA -Offloading Yes No -Type of Offloading Surgical Shoe -Treatment Response Procedure Procedure Tolerated Well Tolerated Well Pain Scale: 0-10 Numeric Is Patient Pain Free? Yes Yes Wound debrided: Right third toe DFU [place] 1 Laterality: Right Type of Debridement: Excisional debridement Anesthesia Used: 5% Lidocaine Gel Depth: in the subcutaneous layer Percentage of wound debrided: 100 Instrument Used: 3mm curette Tissue Removed: Slough and devitalized tissue Severity: Fat Layer Exposed Amount of bleeding with debridement: Mild Bleeding Controlled with: Pressure Patient tolerated procedure well - Additional Wound Wound debrided: Left plantar DFU [place] 1 Laterality: Left Type of Debridement: Excisional debridement Anesthesia Used: 5% Lidocaine Gel Depth: in the subcutaneous layer Percentage of wound debrided: 100 Instrument Used: 7mm curette, #15 blade Tissue Removed: Slough, devitalized tissue, callused wound edges Severity: Fat Layer Exposed Amount of bleeding with debridement: Mild Bleeding Controlled with: Pressure Patient tolerated procedure: Patient tolerated procedure well Assessment/Plan Assessment: hardy grade 1 ulcer, left plantar/dorsal foot and right third toe. peripheral vascular disease with recent intervention 2018. diabetes with neuropathy. malnutrition. non compliance history Plan: The patient was seen and examined at the wound center today and was updated on the plan of care. A subcutaneous debridement was performed today. The patient tolerated the procedure well. The patients wound care will consist of: Applying Lac-Hydrin to the callused wound edges to the left dorsal diabetic foot ulcer with Bonnie in the center wound, and continuing Santyl to the right third toe ulcer given the amount of adherent slough. Given patient's DFU's and diabetic neuropathy, will apply for Regranex, this is pending. Double layer Tubigrip for compression and encourage leg elevation. Wound cultures were collected of the left plantar ulcer and showed anaerobic cocci, staph aureus, Proteus and Klebsiella, patient started on Augmentin twice daily which he completed and instructed to take Culturelle. Wound cultures were then collected to the right third toe ulcer today due to some surrounding erythema around the wound edges. Baseline bloodwork reviewed and ESR elevated at 66, A1c elevated at 8.5 (referred to endocrinology, has appointment next week), GFR diminished at 46, and prealbumin within normal limits at 24. Instructed to follow-up with PCP and endo for tighter glucose control. Vascular studies ordered and pending, patient recently did have intervention in July [address] Redding, records were requested. Patient educated on the importance of diet and blood sugar control on wound healing and instructed to increase protein and vitamin C intake. Patient verbalized understanding. Patient will follow up at wound healing center in one week or sooner if needed. Patient is to resume his nutritional supplementation of Glucerna high-protein. Did discuss with patient the importance of offloading, he continues to be noncompliant with his offloading shoes. A prescription was given for extra-depth diabetic shoes with dual density Plastizote offloading liners including a left toe filler, he picked this up but has not utilized it yet. Patient was strongly encouraged to pick this up and to remain compliant with offloading. This note was generated with [employer] dictation software. It may contain incorrect words, spelling, and punctuation that were not noted in checking the note before signing Code Visit [id number]: 09221 Rin subq tissue 20 sq cm/<
--- NOTE | 2018-06-05 09:04 | PN.PCM_ITS ---
(1) Chronic ulcer of left foot with fat layer exposed Status: Resolved Code(s): L97.522 - Non-pressure chronic ulcer of other part of left foot with fat layer exposed Comment: left plantar foot DFU (2) Non-pressure chronic ulcer of other part of left foot with fat layer exposed Status: Chronic Code(s): L97.522 - Non-pressure chronic ulcer of other part of left foot with fat layer exposed Comment: dorsal left medial foot (3) Skin ulcer of third toe of right foot with fat layer exposed Status: Acute Code(s): L97.512 - Non-pressure chronic ulcer of other part of right foot with fat layer exposed (4) Delayed wound healing Status: Chronic Code(s): T14.8 - Other injury of unspecified body region (5) Diabetes mellitus with neuropathy Status: Chronic Code(s): E11.40 - Type 2 diabetes mellitus with diabetic neuropathy, unspecified (6) PAD (peripheral artery disease) Status: Chronic Code(s): I73.9 - Peripheral vascular disease, unspecified (7) Type 2 diabetes mellitus with diabetic polyneuropathy Status: Chronic Code(s): E11.42 - Type 2 diabetes mellitus with diabetic polyneuropathy Type of Wound Date of Service: 05/30/18 Chief Complaint: diabetic Left foot ulcers and right third toe ulcer History of Wound: This 68-year-old male who presents to the wound healing center today with complaint of recurrent left plantar foot ulcer and also an ulceration on his right third toe. He is unsure when these ulcerations occurred but states that they have occurred over the last month. 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 He currently is not using any offloading mechanisms. He was seen here previously by Dr. abebe. He has a past medical history as listed above. He states that the left plantar foot ulcer is recurrent and a chronic concern for him. He has not been using any [id number]-iffdana treatments at this time. He denies any purulent drainage, increasing pain, malodor, redness, or systemic signs of infection such as fever chills. He does state that his chronic neuropathy interferes with the sensation of his feet. The patient otherwise denies any fever, chills, nausea, vomiting, shortness of breath, chest pain or pressure, palpitations, orthopnea, lower extremity edema, syncope or presyncopal episodes. Progress of Wound: Ulcers of the left foot are improved, left dorsal ulcer healed, right third toe ulcer stable at this time, patient denies any symptoms of systemic or localized infection, patient is noncompliant with utilizing offloading shoe at all times, but states he was compliant with his daily dressing changes. Wound cultures from previous showed staph aureus, Proteus mirabilis, Klebsiella, and anaerobic cocci, patient was started on an antibiotic of Augmentin, and completed this. He has not followed up with endocrinology yet, but has an appointment next month to get better control of his blood sugars. - Physical Exam Vital Signs Temp Pulse Resp BP 97 F L 73 18 141/54 H 05/30/18 15:19 05/30/18 15:19 05/30/18 15:19 05/30/18 15:19 General: Alert, Oriented x3, Cooperative, No apparent distress HEENT: Atraumatic Lungs: Clear to auscultation Cardiovascular: Regular rate Abdomen: Distended Extremities: No clubbing, No cyanosis, Diminished Peripheral Pulses - Diminished dorsal pedis pulses bilaterally, Edema - Generalized bilateral lower extremity edema with chronic venous changes Skin: Ulcer/ Wound - See nursing documentation, right third toe ulcer with adh erent slough present to wound bed, surrounding tissue slightly reddened therefore wound cultures were repeated. Left dorsal ulcer healed and left plantar ulcer with hyperkeratotic wound edges, otherwise no signs of infection Neurological: - - Neurovascular sensation to bilateral lower extremities diminished Psych/Mental Status: Normal Affect, Appropriate, Alert and oriented to time, place, person, mood and affect Debridement Note Post-Debridement Measurements/Treatment WC - Nurse 2 - General Ulcer CM Notes Start: 05/16/18 15:29 Freq: Status: Active Protocol: Activity Type Activity Date Activity User E-Sign Co-Sign Detail Recorded Client Recorded Date Recorded By Document 05/16/18 16:41 TM [id number] 05/16/18 16:44 TM Document 05/30/18 16:16 CS [id number] 05/30/18 16:18 CS 05/16/18 05/30/18 16:41 16:16 Wound Center Nurse 2 #23 Left dorsal Foot -Time 16:42 16:17 -Correct Patient Yes -Correct Side, Site, Position Yes -Correct Procedure Yes -Procedure Performed Yes -Type of Procedure Debridement -Clinical Debridement Subcutaneous -Post Debridement Size (cm) - Length 0.3 0.1 -Post Debridement Size (cm) - Width 0.3 0.1 -Post Debridement Size (cm) - Depth 0.1 0.1 -Total Square Cm 0.09 0.01 -Wound/Ulcer Outcome Not Healed Healed- Epithelialized -Ulcer Cleansing Rinsed/ Irrigated with Saline -Foul Odor after Cleansing No -Bioengineered Tissue No -Topical Lidocaine (%) 5 -Bleeding Controlled with Pressure -Offloading Yes -Type of Offloading Surgical Shoe -Treatment Response Procedure Tolerated Well # 22 RIGHT 3rd TOE ANTERIOR -Time 16:42 16:16 -Correct Patient Yes Yes -Correct Side, Site, Position Yes Yes -Correct Procedure Yes Yes -Procedure Performed Yes Yes -Type of Procedure Debridement Debridement -Clinical Debridement Subcutaneous Subcutaneous -Post Debridement Size (cm) - Length 0.7 0.5 -Post Debridement Size (cm) - Width 0.5 0.6 -Post Debridement Size (cm) - Depth 0.1 0.2 -Total Square Cm 0.35 0.30 -Wound/Ulcer Outcome Not Healed Not Healed -Ulcer Cleansing Rinsed/ Not Cleansed Irrigated with Saline -Foul Odor after Cleansing No No -Bioengineered Tissue No No -Topical Lidocaine (%) 5 -Bleeding Controlled with Pressure NA -Offloading Yes No -Type of Offloading Surgical Shoe -Treatment Response Procedure Procedure Tolerated Well Tolerated Well #21 LEFT PLANTAR FOOT -Time 16:43 16:17 -Correct Patient Yes Yes -Correct Side, Site, Position Yes Yes -Correct Procedure Yes Yes -Procedure Performed Yes Yes -Type of Procedure Debridement Debridement -Clinical Debridement Subcutaneous Subcutaneous -Post Debridement Size (cm) - Length 0.8 0.1 -Post Debridement Size (cm) - Width 0.3 0.1 -Post Debridement Size (cm) - Depth 0.3 0.1 -Total Square Cm 0.24 0.01 -Wound/Ulcer Outcome Not Healed Not Healed -Ulcer Cleansing Rinsed/ Not Cleansed Irrigated with Saline -Foul Odor after Cleansing No No -Bioengineered Tissue No No -Topical Lidocaine (%) 5 -Bleeding Controlled with Pressure NA -Offloading Yes No -Type of Offloading Surgical Shoe -Treatment Response Procedure Procedure Tolerated Well Tolerated Well Pain Scale: 0-10 Numeric Is Patient Pain Free? Yes Yes Wound debrided: Right third toe DFU [place] 1 Laterality: Right Type of Debridement: Excisional debridement Anesthesia Used: 5% Lidocaine Gel Depth: in the subcutaneous layer Percentage of wound debrided: 100 Instrument Used: 3mm curette Tissue Removed: Slough and devitalized tissue Severity: Fat Layer Exposed Amount of bleeding with debridement: Mild Bleeding Controlled with: Pressure Patient tolerated procedure well - Additional Wound Wound debrided: Left plantar DFU [place] 1 Laterality: Left Type of Debridement: Excisional debridement Anesthesia Used: 5% Lidocaine Gel Depth: in the subcutaneous layer Percentage of wound debrided: 100 Instrument Used: 7mm curette, #15 blade Tissue Removed: Slough, devitalized tissue, callused wound edges Severity: Fat Layer Exposed Amount of bleeding with debridement: Mild Bleeding Controlled with: Pressure Patient tolerated procedure: Patient tolerated procedure well Assessment/Plan Assessment: hardy grade 1 ulcer, left plantar/dorsal foot and right third toe. peripheral vascular disease with recent intervention 2018. diabetes with neuropathy. malnutrition. non compliance history Plan: The patient was seen and examined at the wound center today and was updated on the plan of care. A subcutaneous debridement was performed today. The patient tolerated the procedure well. The patients wound care will consist of: Applying Lac-Hydrin to the callused wound edges to the left dorsal diabetic foot ulcer with Bonnie in the center wound, and continuing Santyl to the right third toe ulcer given the amount of adherent slough. Given patient's DFU's and diabetic neuropathy, will apply for Regranex, this is pending. Double layer Tubigrip for compression and encourage leg elevation. Wound cultures were collected of the left plantar ulcer and showed anaerobic cocci, staph aureus, Proteus and Klebsiella, patient started on Augmentin twice daily which he completed and instructed to take Culturelle. Wound cultures were then collected to the right third toe ulcer today due to some surrounding erythema around the wound edges. Baseline bloodwork reviewed and ESR elevated at 66, A1c elevated at 8.5 (referred to endocrinology, has appointment next week), GFR diminished at 46, and prealbumin within normal limits at 24. Instructed to follow-up with PCP and endo for tighter glucose control. Vascular studies ordered and pending, patient recently did have intervention in July [address] Redding, records were requested. Patient educated on the importance of diet and blood sugar control on wound healing and instructed to increase protein and vitamin C intake. Patient verbalized understanding. Patient will follow up at wound healing center in one week or sooner if needed. Patient is to resume his nutritional supplementation of Glucerna high-protein. Did discuss with patient the importance of offloading, he continues to be noncompliant with his offloading shoes. A prescription was given for extra-depth diabetic shoes with dual density Plastizote offloading liners including a left toe filler, he picked this up but has not utilized it yet. Patient was strongly encouraged to pick this up and to remain compliant with offloading. This note was generated with [employer] dictation software. It may contain incorrect words, spelling, and punctuation that were not noted in checking the note before signing Code Visit [id number]: [id number] Rin subq tissue 20 sq cm/<
[2018-06-06 15:40] VITALS: BP 142/66; PULSE 71; RESP 18; TEMP 35.8; BMI 32.1
[2018-06-06 17:31] LABS: Absolute Lymphocyte Count 1.24 X10^3/ul (0.83-4.51); Absolute Neutrophil Count 4.3 X10^3/uL (2.0-7.7); Basophil# 0.03 X10^3/uL; Basophil% 0.5 % (0-1); Eosinophil# 0.11 X10^3/uL; Eosinophils% 1.7 % (0-5); Hematocrit 44.8 % (40-54); Lymphocyte # 1.24 X10^3/ul (4.0); Lymphocyte % 19.2 % (19-41); Mean Corp Hgb Conc 33.5 g/gl (32-36); Mean Corpuscular Hgb 30.7 pg (27.0-32.0); Mean Corpuscular Volume 91.6 fL (80-94); Monocyte# 0.75 X10^3/uL; Monocyte% 11.6 % (0-10); Neutrophil % 66.7 % (47-70); Platelet Count 267 K/mm3 (150-450); RBC Distribution Width CV 13.9 % (11.6-14.6); RBC Distribution Width SD 46.6 fl (35.1-43.9); Red Blood Count 4.89 M/mm3 (4.6-6.2); White Blood Count 6.5 K/mm3 (4.4-11.0)
[2018-06-06 17:33] LABS: POSITIVE COUNT NO; POSITIVE DIFFERENTIAL NO; POSITIVE MORPHOLOGY NO
[2018-06-06 18:33] LABS: Erythrocyte Sedimentation Rate 52 mm/hr (0-20)
--- NOTE | 2018-06-06 19:04 | PCM.WC.PN ---
(1) Chronic ulcer of left foot with fat layer exposed Status: Resolved Code(s): L97.522 - Non-pressure chronic ulcer of other part of left foot with fat layer exposed Comment: left plantar foot DFU (2) Non-pressure chronic ulcer of other part of left foot with fat layer exposed Status: Chronic Code(s): L97.522 - Non-pressure chronic ulcer of other part of left foot with fat layer exposed Comment: dorsal left medial foot (3) Skin ulcer of third toe of right foot with fat layer exposed Status: Acute Code(s): L97.512 - Non-pressure chronic ulcer of other part of right foot with fat layer exposed (4) Delayed wound healing Status: Chronic Code(s): T14.8 - Other injury of unspecified body region (5) Diabetes mellitus with neuropathy Status: Chronic Code(s): E11.40 - Type 2 diabetes mellitus with diabetic neuropathy, unspecified (6) PAD (peripheral artery disease) Status: Chronic Code(s): I73.9 - Peripheral vascular disease, unspecified (7) Type 2 diabetes mellitus with diabetic polyneuropathy Status: Chronic Code(s): E11.42 - Type 2 diabetes mellitus with diabetic polyneuropathy Type of Wound Chief Complaint: diabetic Left foot ulcers and right third toe ulcer History of Wound: This 68-year-old male who presents to the wound healing center today with complaint of recurrent left plantar foot ulcer and also an ulceration on his right third toe. He is unsure when these ulcerations occurred but states that they have occurred over the last month. 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 He currently is not using any offloading mechanisms. He was seen here previously by Dr. abebe. He has a past medical history as listed above. He states that the left plantar foot ulcer is recurrent and a chronic concern for him. He has not been using any [id number] treatments at this time. He denies any purulent drainage, increasing pain, malodor, redness, or systemic signs of infection such as fever chills. He does state that his chronic neuropathy interferes with the sensation of his feet. The patient otherwise denies any fever, chills, nausea, vomiting, shortness of breath, chest pain or pressure, palpitations, orthopnea, lower extremity edema, syncope or presyncopal episodes. Progress of Wound: Ulcers of the left foot are healed, right third toe ulcer worsened at this time as it now probes to bone. Patient denies any symptoms of systemic or localized infection, patient is noncompliant with utilizing offloading shoe at all times, but states he was compliant with his daily dressing changes. Wound culture from right third toe ulcer collected prior and was negative. He has not followed up with endocrinology yet, but has an appointment next month to get better control of his blood sugars. 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, lack of sensation to bilateral lower extremities Skin: Ulcer/ Wound - Ulcerations to the left foot are healed, ulceration to right third dorsal toe with adherent slough to wound bed, slight erythema not extending greater than 1 cm from wound bed, site now probes to bone, no streaking or purulent drainage at this time Musculoskeletal: No Muscle Wasting Neurological: Neuro grossly intact Psych/Mental Status: Normal Affect, Appropriate, Alert and oriented to time, place, person, mood and affect Debridement Note Post-Debridement Measurements/Treatment WC - Nurse 2 - General Ulcer CM Notes Start: 05/16/18 15:29 Freq: Status: Active Protocol: Activity Type Activity Date Activity User E-Sign Co-Sign Detail Recorded Client Recorded Date Recorded By Document 05/16/18 16:41 TM [id number] 05/16/18 16:44 TM Document 05/30/18 16:16 CS [id number] 05/30/18 16:18 CS Document 06/06/18 16:25 [id number] 06/06/18 16:26 CS 05/16/18 05/30/18 06/06/18 16:41 16:16 16:25 Wound Center Nurse 2 #23 Left dorsal Foot -Time 16:42 16:17 -Correct Patient Yes -Correct Side, Site, Position Yes -Correct Procedure Yes -Procedure Performed Yes -Type of Procedure Debridement -Clinical Debridement Subcutaneous -Post Debridement Size (cm) - Length 0.3 0.1 -Post Debridement Size (cm) - Width 0.3 0.1 -Post Debridement Size (cm) - Depth 0.1 0.1 -Total Square Cm 0.09 0.01 -Wound/Ulcer Outcome Not Healed Healed- Epithelialized -Ulcer Cleansing Rinsed/ Irrigated with Saline -Foul Odor after Cleansing No -Bioengineered Tissue No -Topical Lidocaine (%) 5 -Bleeding Controlled with Pressure -Offloading Yes -Type of Offloading Surgical Shoe -Treatment Response Procedure Tolerated Well # 22 RIGHT 3rd TOE ANTERIOR -Time 16:42 16:16 16:25 -Correct Patient Yes Yes Yes -Correct Side, Site, Position Yes Yes Yes -Correct Procedure Yes Yes Yes -Procedure Performed Yes Yes Yes -Type of Procedure Debridement Debridement Debridement -Clinical Debridement Subcutaneous Subcutaneous Bone -Post Debridement Size (cm) - Length 0.7 0.5 0.6 -Post Debridement Size (cm) - Width 0.5 0.6 0.4 -Post Debridement Size (cm) - Depth 0.1 0.2 0.2 -Total Square Cm 0.35 0.30 0.24 -Wound/Ulcer Outcome Not Healed Not Healed Not Healed -Ulcer Cleansing Rinsed/ Not Cleansed Not Cleansed Irrigated with Saline -Foul Odor after Cleansing No No No -Bioengineered Tissue No No No -Topical Lidocaine (%) 5 -Bleeding Controlled with Pressure NA NA -Offloading Yes No No -Type of Offloading Surgical Shoe -Treatment Response Procedure Procedure Procedure Tolerated Well Tolerated Well Tolerated Well #21 LEFT PLANTAR FOOT -Time 16:43 16:17 16:25 -Correct Patient Yes Yes No -Correct Side, Site, Position Yes Yes No -Correct Procedure Yes Yes No -Procedure Performed Yes Yes No -Type of Procedure Debridement Debridement -Clinical Debridement Subcutaneous Subcutaneous -Post Debridement Size (cm) - Length 0.8 0.1 -Post Debridement Size (cm) - Width 0.3 0.1 -Post Debridement Size (cm) - Depth 0.3 0.1 -Total Square Cm 0.24 0.01 -Wound/Ulcer Outcome Not Healed Not Healed Healed- Epithelialized -Ulcer Cleansing Rinsed/ Not Cleansed Irrigated with Saline -Foul Odor after Cleansing No No -Bioengineered Tissue No No -Topical Lidocaine (%) 5 -Bleeding Controlled with Pressure NA -Offloading Yes No -Type of Offloading Surgical Shoe -Treatment Response Procedure Procedure Tolerated Well Tolerated Well Pain Scale: 0-10 Numeric Is Patient Pain Free? Yes Yes Yes Wound debrided: Right third toe diabetic foot ulcer Calvin 2 Laterality: Right Type of Debridement: Excisional debridement Anesthesia Used: 5% Lidocaine Gel Depth: in the subcutaneous layer, to bone Percentage of wound debrided: 100 Instrument Used: 5mm curette Tissue Removed: Slough and devitalized tissue Severity: Fat Layer Exposed Amount of bleeding with debridement: Mild Bleeding Controlled with: Pressure Patient tolerated procedure well Assessment/Plan Assessment: calvin grade 1 ulcer, left plantar/dorsal foot. Calvin 2 right third toe. peripheral vascular disease with recent intervention 2017. diabetes with neuropathy. malnutrition. non compliance history Plan: The patient was seen and examined at the wound center today and was updated on the plan of care. A subcutaneous debridement was performed today. The patient tolerated the procedure well. The patients wound care will consist of: Applying Lac-Hydrin to the callused wound edges to the healed left dorsal diabetic foot ulcer and continuing Santyl to the right third toe ulcer given the amount of adherent slough. Given the fact that the patient's right toe DFU now probes to bone, will repeat x-ray, ESR, CRP, and CBC to rule out osteomyelitis. We will also consult podiatry. Given patient's DFU's and diabetic neuropathy, will apply for Regranex, this is pending. Double layer Tubigrip for compression and encourage leg elevation. Wound cultures were collected on 05/30 on the right toe and were negative. Baseline bloodwork reviewed prior and ESR elevated at 66, A1c elevated at 8.5 (referred to endocrinology, has appointment next week), GFR diminished at 46, and prealbumin within normal limits at 24. Instructed to follow-up with PCP and endo for tighter glucose control. Vascular studies ordered and pending, patient recently did have intervention in July [address] Redding, records were requested. Patient educated on the importance of diet and blood sugar control on wound healing and instructed to increase protein and vitamin C intake. Patient verbalized understanding. Patient will follow up at wound healing center in one week or sooner if needed. Patient is to resume his nutritional supplementation of Glucerna high-protein. Did discuss with patient the importance of offloading, he continues to be noncompliant with his offloading shoes. A prescription was given for extra-depth diabetic shoes with dual density Plastizote offloading liners including a left toe filler, he picked this up but has not utilized it yet. Patient was strongly encouraged to pick this up and to remain compliant with offloading. This note was generated with [employer] dictation software. It may contain incorrect words, spelling, and punctuation that were not noted in checking the note before signing Code Visit [id number]: 27961 Rin subq tissue 20 sq cm/<
--- NOTE | 2018-06-12 10:08 | PN.PCM_ITS ---
(1) Chronic ulcer of left foot with fat layer exposed Status: Resolved Code(s): L97.522 - Non-pressure chronic ulcer of other part of left foot with fat layer exposed Comment: left plantar foot DFU (2) Non-pressure chronic ulcer of other part of left foot with fat layer exposed Status: Chronic Code(s): L97.522 - Non-pressure chronic ulcer of other part of left foot with fat layer exposed Comment: dorsal left medial foot (3) Skin ulcer of third toe of right foot with fat layer exposed Status: Acute Code(s): L97.512 - Non-pressure chronic ulcer of other part of right foot with fat layer exposed (4) Delayed wound healing Status: Chronic Code(s): T14.8 - Other injury of unspecified body region (5) Diabetes mellitus with neuropathy Status: Chronic Code(s): E11.40 - Type 2 diabetes mellitus with diabetic neuropathy, unspecified (6) PAD (peripheral artery disease) Status: Chronic Code(s): I73.9 - Peripheral vascular disease, unspecified (7) Type 2 diabetes mellitus with diabetic polyneuropathy Status: Chronic Code(s): E11.42 - Type 2 diabetes mellitus with diabetic polyneuropathy Type of Wound Chief Complaint: diabetic Left foot ulcers and right third toe ulcer History of Wound: This 68-year-old male who presents to the wound healing center today with complaint of recurrent left plantar foot ulcer and also an ulceration on his right third toe. He is unsure when these ulcerations occurred but states that they have occurred over the last month. 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 He currently is not using any offloading mechanisms. He was seen here previously by Dr. abebe. He has a past medical history as listed above. He states that the left plantar foot ulcer is recurrent and a chronic concern for him. He has not been using any [id number] treatments at this time. He denies any purulent drainage, increasing pain, malodor, redness, or systemic signs of infection such as fever chills. He does state that his chronic neuropathy interferes with the sensation of his feet. The patient otherwise denies any fever, chills, nausea, vomiting, shortness of breath, chest pain or pressure, palpitations, orthopnea, lower extremity edema, syncope or presyncopal episodes. Progress of Wound: Ulcers of the left foot are healed, right third toe ulcer worsened at this time as it now probes to bone. Patient denies any symptoms of systemic or localized infection, patient is noncompliant with utilizing offloading shoe at all times, but states he was compliant with his daily dressing changes. Wound culture from right third toe ulcer collected prior and was negative. He has not followed up with endocrinology yet, but has an appointment next month to get better control of his blood sugars. 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, lack of sensation to bilateral lower extremities Skin: Ulcer/ Wound - Ulcerations to the left foot are healed, ulceration to right third dorsal toe with adherent slough to wound bed, slight erythema not extending greater than 1 cm from wound bed, site now probes to bone, no streaking or purulent drainage at this time Musculoskeletal: No Muscle Wasting Neurological: Neuro grossly intact Psych/Mental Status: Normal Affect, Appropriate, Alert and oriented to time, place, person, mood and affect Debridement Note Post-Debridement Measurements/Treatment WC - Nurse 2 - General Ulcer CM Notes Start: 05/16/18 15:29 Freq: Status: Active Protocol: Activity Type Activity Date Activity User E-Sign Co-Sign Detail Recorded Client Recorded Date Recorded By Document 05/16/18 16:41 TM [id number] 05/16/18 16:44 TM Document 05/30/18 16:16 CS [id number] 05/30/18 16:18 CS Document 06/06/18 16:25 [id number] 06/06/18 16:26 CS 05/16/18 05/30/18 06/06/18 16:41 16:16 16:25 Wound Center Nurse 2 #23 Left dorsal Foot -Time 16:42 16:17 -Correct Patient Yes -Correct Side, Site, Position Yes -Correct Procedure Yes -Procedure Performed Yes -Type of Procedure Debridement -Clinical Debridement Subcutaneous -Post Debridement Size (cm) - Length 0.3 0.1 -Post Debridement Size (cm) - Width 0.3 0.1 -Post Debridement Size (cm) - Depth 0.1 0.1 -Total Square Cm 0.09 0.01 -Wound/Ulcer Outcome Not Healed Healed- Epithelialized -Ulcer Cleansing Rinsed/ Irrigated with Saline -Foul Odor after Cleansing No -Bioengineered Tissue No -Topical Lidocaine (%) 5 -Bleeding Controlled with Pressure -Offloading Yes -Type of Offloading Surgical Shoe -Treatment Response Procedure Tolerated Well # 22 RIGHT 3rd TOE ANTERIOR -Time 16:42 16:16 16:25 -Correct Patient Yes Yes Yes -Correct Side, Site, Position Yes Yes Yes -Correct Procedure Yes Yes Yes -Procedure Performed Yes Yes Yes -Type of Procedure Debridement Debridement Debridement -Clinical Debridement Subcutaneous Subcutaneous Bone -Post Debridement Size (cm) - Length 0.7 0.5 0.6 -Post Debridement Size (cm) - Width 0.5 0.6 0.4 -Post Debridement Size (cm) - Depth 0.1 0.2 0.2 -Total Square Cm 0.35 0.30 0.24 -Wound/Ulcer Outcome Not Healed Not Healed Not Healed -Ulcer Cleansing Rinsed/ Not Cleansed Not Cleansed Irrigated with Saline -Foul Odor after Cleansing No No No -Bioengineered Tissue No No No -Topical Lidocaine (%) 5 -Bleeding Controlled with Pressure NA NA -Offloading Yes No No -Type of Offloading Surgical Shoe -Treatment Response Procedure Procedure Procedure Tolerated Well Tolerated Well Tolerated Well #21 LEFT PLANTAR FOOT -Time 16:43 16:17 16:25 -Correct Patient Yes Yes No -Correct Side, Site, Position Yes Yes No -Correct Procedure Yes Yes No -Procedure Performed Yes Yes No -Type of Procedure Debridement Debridement -Clinical Debridement Subcutaneous Subcutaneous -Post Debridement Size (cm) - Length 0.8 0.1 -Post Debridement Size (cm) - Width 0.3 0.1 -Post Debridement Size (cm) - Depth 0.3 0.1 -Total Square Cm 0.24 0.01 -Wound/Ulcer Outcome Not Healed Not Healed Healed- Epithelialized -Ulcer Cleansing Rinsed/ Not Cleansed Irrigated with Saline -Foul Odor after Cleansing No No -Bioengineered Tissue No No -Topical Lidocaine (%) 5 -Bleeding Controlled with Pressure NA -Offloading Yes No -Type of Offloading Surgical Shoe -Treatment Response Procedure Procedure Tolerated Well Tolerated Well Pain Scale: 0-10 Numeric Is Patient Pain Free? Yes Yes Yes Wound debrided: Right third toe diabetic foot ulcer Calvin 2 Laterality: Right Type of Debridement: Excisional debridement Anesthesia Used: 5% Lidocaine Gel Depth: in the subcutaneous layer, to bone Percentage of wound debrided: 100 Instrument Used: 5mm curette Tissue Removed: Slough and devitalized tissue Severity: Fat Layer Exposed Amount of bleeding with debridement: Mild Bleeding Controlled with: Pressure Patient tolerated procedure well Assessment/Plan Assessment: calvin grade 1 ulcer, left plantar/dorsal foot. Calvin 2 right third toe. peripheral vascular disease with recent intervention 2017. diabetes with neuropathy. malnutrition. non compliance history Plan: The patient was seen and examined at the wound center today and was updated on the plan of care. A subcutaneous debridement was performed today. The patient tolerated the procedure well. The patients wound care will consist of: Applying Lac-Hydrin to the callused wound edges to the healed left dorsal diabetic foot ulcer and continuing Santyl to the right third toe ulcer given the amount of adherent slough. Given the fact that the patient's right toe DFU now probes to bone, will repeat x-ray, ESR, CRP, and CBC to rule out osteomyelitis. We will also consult podiatry. Given patient's DFU's and diabetic neuropathy, will apply for Regranex, this is pending. Double layer Tubigrip for compression and encourage leg elevation. Wound cultures were collected on 05/30 on the right toe and were negative. Baseline bloodwork reviewed prior and ESR elevated at 66, A1c elevated at 8.5 (referred to endocrinology, has appointment next week), GFR diminished at 46, and prealbumin within normal limits at 24. Instructed to follow-up with PCP and endo for tighter glucose control. Vascular studies ordered and pending, patient recently did have intervention in July [address] Redding, records were requested. Patient educated on the importance of diet and blood sugar control on wound healing and instructed to increase protein and vitamin C intake. Patient verbalized understanding. Patient will follow up at wound healing center in one week or sooner if needed. Patient is to resume his nutritional supplementation of Glucerna high-protein. Did discuss with patient the importance of offloading, he continues to be noncompliant with his offloading shoes. A prescription was given for extra-depth diabetic shoes with dual density Plastizote offloading liners including a left toe filler, he picked this up but has not utilized it yet. Patient was strongly encouraged to pick this up and to remain compliant with offloading. This note was generated w [employer] dictation software. It may contain incorrect words, spelling, and punctuation that were not noted in checking the note before signing Code Visit [id number]: [id number] Rin subq tissue 20 sq cm/<
== END 2018-06-10 23:59 ==
LOC: WC 15:45
PROVIDERS: Family Provider Family Medicine Geriatric Medicine; PCP Family Medicine Geriatric Medicine; Referring Provider Nurse Practitioner Family; Visit Provider Nurse Practitioner Family
DX: E11.621 Type 2 diabetes mellitus with foot ulcer (principal); E11.51 Type 2 diabetes mellitus with diabetic peripheral angiopathy without gangrene; I12.9 Hypertensive chronic kidney disease with stage 1 through stage 4 chronic kidney disease, or unspecified chronic kidney disease; E11.22 Type 2 diabetes mellitus with diabetic chronic kidney disease; N18.9 Chronic kidney disease, unspecified; Z91.19 Patient's noncompliance with other medical treatment and regimen; L97.512 Non-pressure chronic ulcer of other part of right foot with fat layer exposed; L97.522 Non-pressure chronic ulcer of other part of left foot with fat layer exposed; E11.42 Type 2 diabetes mellitus with diabetic polyneuropathy
CPT/HCPCS: 11042; 85025; 85652; 86140; 87070; 87075; 87205; 97602

== ENCOUNTER → 2018-06-07 16:04 | Outpatient (CLI) | payer MEDICARE, SELFPAY ==
[2018-06-06 15:40] VITALS: BMI 32.1
--- NOTE | 2018-06-07 16:30 | RAD_ITS ---
STUDY: X-RAY - RIGHT FOOT CLINICAL: Male, 68 years old. Ulcer of the toe TECHNIQUE: 3 view(s) of the foot. COMPARISON: 04/29/2018 FINDINGS: Normal talus, calcaneus, and tarsal bones. Normal visualized subtalar, talonavicular, calcaneocuboid, tarsal and tarsometatarsal articulations. Partial amputation of the fifth metatarsus, similar. Normal metatarsophalangeal joint of the great toe. Normal tibial and fibular sesamoid bones. Normal interphalangeal joint of the great toe. Normal phalanges of the great toe. Normal second through fifth metatarsophalangeal joints. Normal interphalangeal joints and phalanges of the lesser toes. Vascular calcifications are demonstrated. RAD/Foot min 3 Views IMPRESSION: Since 04/29/2018, stable exam. No destructive bony process. Fifth metatarsal partial amputation. Electronically Signed: Sebastien Martin MD at 18:59 EST , Service support ,
== END ==
PROVIDERS: Family Provider Family Medicine Geriatric Medicine; PCP Family Medicine Geriatric Medicine; Referring Provider Nurse Practitioner Family; Visit Provider Nurse Practitioner Family
DX: L97.812 Non-pressure chronic ulcer of other part of right lower leg with fat layer exposed (principal)
CPT/HCPCS: 73630

== ENCOUNTER 2018-06-26 14:45 | Outpatient (RCR) | payer MEDICARE, SELFPAY ==
[2018-06-11 00:42] VITALS: BP 142/66; PULSE 71; RESP 18; TEMP 35.8
[2018-06-13 15:37] VITALS: BMI 32.1
--- NOTE | 2018-06-14 09:22 | PCM.WC.PN ---
(1) Diabetic ulcer of toe of right foot associated with diabetes mellitus due to underlying condition Status: Acute Current Visit: Yes Qualifiers: Non-pressure ulcer stage: with bone involvement without evidence of necrosis Qualified Code(s): E08.621 - Diabetes mellitus due to underlying condition with foot ulcer; L97.516 - Non-pressure chronic ulcer of other part of right foot with bone involvement without evidence of necrosis Code(s): E08.621 - Diabetes mellitus due to underlying condition with foot ulcer; L97.519 - Non-pressure chronic ulcer of other part of right foot with unspecified severity Comment: calvin 2 right third toe (2) Delayed wound healing Status: Chronic Current Visit: Yes Code(s): T14.8 - Other injury of unspecified body region (3) Diabetes mellitus with neuropathy Status: Chronic Current Visit: Yes Code(s): E11.40 - Type 2 diabetes mellitus with diabetic neuropathy, unspecified (4) Lower extremity edema Status: Chronic Current Visit: Yes Code(s): R60.0 - Localized edema (5) Morbid obesity Status: Chronic Current Visit: Yes Code(s): E66.01 - Morbid (severe) obesity due to excess calories (6) Non compliance with medical treatment Status: Chronic Current Visit: Yes Code(s): Z91.19 - Patient's noncompliance with other medical treatment and regimen (7) PAD (peripheral artery disease) Status: Chronic Current Visit: Yes Code(s): I73.9 - Peripheral vascular disease, unspecified (8) Peripheral vascular disease Status: Chronic Current Visit: Yes Code(s): I73.9 - Peripheral vascular disease, unspecified (9) Subungual hematoma of toe of right foot Status: Chronic Current Visit: No Code(s): S90.221A - Contusion of right lesser toe(s) with damage to nail, initial encounter (10) Type II diabetes mellitus, uncontrolled Status: Chronic Current Visit: Yes Code(s): E11.65 - Type 2 diabetes mellitus with hyperglycemia (11) Chronic ulcer of left foot with fat layer exposed Status: Resolved Current Visit: Yes Code(s): L97.522 - Non-pressure chronic ulcer of other part of left foot with fat layer exposed Type of Wound Date of Service: 06/13/18 Chief Complaint: diabetic Left foot ulcers and right third toe ulcer History of Wound: This 68-year-old male who presents to the wound healing center today with complaint of recurrent left plantar foot ulcer and also an ulceration on his right third toe. He is unsure when these ulcerations occurred but states that they have occurred over the last month. 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 He currently is not using any offloading mechanisms. He was seen here previously by Dr. abebe. He has a past medical history as listed above. He states that the left plantar foot ulcer is recurrent and a chronic concern for him. He has not been using any [id number] treatments at this time. He denies any purulent drainage, increasing pain, malodor, redness, or systemic signs of infection such as fever chills. He does state that his chronic neuropathy interferes with the sensation of his feet. The patient otherwise denies any fever, chills, nausea, vomiting, shortness of breath, chest pain or pressure, palpitations, orthopnea, lower extremity edema, syncope or presyncopal episodes. Progress of Wound: Ulcers of the left foot are healed, right third toe ulcer stable at this time, still probes to bone, xray reviewed which demonstrated no acute bony process destruction, recent bloodwork reviewed which actually showed that his ESR decreased from 66 to 52, CRP decreased from 17 to 14, and his CBC was essentially WNL. patient denies any symptoms of systemic or localized infection, patient is noncompliant with utilizing offloading shoe at all times, but states he was compliant with his daily dressing changes. Wound cultures on right third toe was negative as well. He has not followed up with endocrinology yet, but has an appointment next month to get better control of his blood sugars. Most recent A1C in march was 8.5. - Physical Exam Vital Signs Temp Pulse Resp BP 96.4 F L 71 18 142/66 H 06/11/18 00:42 06/11/18 00:42 06/11/18 00:42 06/11/18 00:42 General: Alert, Oriented x3, Cooperative, No apparent distress HEENT: Atraumatic Oral: Moist Mucosa Lungs: Clear to auscultation Cardiovascular: Regular rate Abdomen: Distended Extremities: No clubbing, No cyanosis, Diminished Peripheral Pulses, Edema - generalized BLLE edema with chronic venous changes present, - - toes of left foot amputated, callused areas present left plantar surface, right 5th toe amputated Skin: Ulcer/ Wound - DFU present right 3rd dorsal toe with adherant slough present, still probes to bone, no undermining or tunnelling present, no foul smell or other signs of acute infection at this time. Wound Measurements and Assessment WC - Nurse 1 - General Ulcer Measurement Start: 06/13/18 15:37 Freq: Status: Active Protocol: Activity Type Activity Date Activity User E-Sign Co-Sign Detail Recorded Client Recorded Date Recorded By Document 06/13/18 15:37 MT [id number] 06/13/18 15:42 MT 06/13/18 15:37 Wound Center Nurse 1 [Ulcer Assessment] #23 Left dorsal Foot -Combined with other wound No -Current Size (cm) - Length 1 -Current Size (cm) - Width 0.5 -Current Size (cm) - Depth 0.1 -Total Square Cm 0.5 -Photo Taken No -Epithelialization Large 67-100% -Tunneling No -Undermining/Tunneling No -Circular Undermining No -Exudate Amt None Present (0 %) -Wound Margin Flat & Intact -Granulation Amt Large (67-100%) -Granulation Quality [place] Red -Slough/Fibrin Yes -Necrosis Amt Small (1-33%) -Necrotic Tissue Type Adherent Slough -Texture (Maggy-wound Skin Appearance) Assessed -Moisture (Maggy-wound Skin Appearance Assessed ) -Color (Maggy-wound Skin Appearance) Assessed Hemosiderin Staining -Temperature (Maggy-wound Skin No Abnormality Appearance) (Pt Warm) -Tenderness on Palpation (Maggy-wound No Skin Appearance) -Ulcer Cleansing Rinsed/ Irrigated with Saline -Foul Odor after Cleansing No -Anesthetic Used 4% Lidocaine Solution # 22 RIGHT 3rd TOE ANTERIOR -Combined with other wound No -Current Size (cm) - Length 0.5 -Current Size (cm) - Width 0.7 -Current Size (cm) - Depth 0.1 -Total Square Cm 0.35 -Photo Taken No -Tunneling No -Undermining/Tunneling No -Circular Undermining No -Exudate Amt Small (1-33%) -Exudate Type Purulent -Wound Margin Flat & Intact -Granulation Amt None Present (0 %) -Slough/Fibrin Yes -Necrosis Amt Large (67-100%) -Necrotic Tissue Type Adherent Slough -Texture (Maggy-wound Skin Appearance) Assessed -Moisture (Maggy-wound Skin Appearance Assessed ) Maceration -Color (Maggy-wound Skin Appearance) Assessed Hemosiderin Staining -Temperature (Maggy-wound Skin No Abnormality Appearance) (Pt Warm) -Tenderness on Palpation (Maggy-wound No Skin Appearance) -Ulcer Cleansing Rinsed/ Irrigated with Saline -Foul Odor after Cleansing No -Anesthetic Used 4% Lidocaine Solution [Edema Assessment] -Right Calf (cm) 36 -Right Ankle (cm) 22 -Left Calf (cm) 33 -Left Ankle (cm) 22 WC - Nurse 2 - General Ulcer CM Notes Start: 06/13/18 15:37 Freq: Status: Active Protocol: Activity Type Activity Date Activity User E-Sign Co-Sign Detail Recorded Client Recorded Date Recorded By Document 06/13/18 16:10 [id number] 06/13/18 16:12 CS 06/13/18 16:10 Wound Center Nurse 2 [Procedure/Treatment] #23 Left dorsal Foot -Time 16:10 -Correct Patient Yes -Correct Side, Site, Position Yes -Correct Procedure Yes -Procedure Performed Yes -Clinical Debridement Selective -Post Debridement Size (cm) - Length 0.1 -Post Debridement Size (cm) - Width 0.1 -Post Debridement Size (cm) - Depth 0.1 -Total Square Cm 0.01 -Wound/Ulcer Outcome Healed- Epithelialized -Ulcer Cleansing Not Cleansed -Foul Odor after Cleansing No -Bioengineered Tissue No -Bleeding Controlled with NA -Offloading No -Type of Offloading Surgical Shoe -Treatment Response Procedure Tolerated Well # 22 RIGHT 3rd TOE ANTERIOR -Time 16:11 -Correct Patient Yes -Correct Side, Site, Position Yes -Correct Procedure Yes -Procedure Performed Yes -Type of Procedure Debridement -Clinical Debridement Bone -Post Debridement Size (cm) - Length 0.6 -Post Debridement Size (cm) - Width 0.7 -Post Debridement Size (cm) - Depth 0.2 -Total Square Cm 0.42 -Wound/Ulcer Outcome Not Healed -Ulcer Cleansing Not Cleansed -Foul Odor after Cleansing No -Bioengineered Tissue No -Bleeding Controlled with NA -Offloading No -Type of Offloading Surgical Shoe -Treatment Response Procedure Tolerated Well [See Physician Procedure note for Specifics] Pain Scale: 0-10 Numeric [Pain] -Is Patient Pain Free? Yes Musculoskeletal: No Tenderness to Palpation of Joints or Extremities Neurological: - - diminished neurovascular sensation to BLLE Psych/Mental Status: Normal Affect, Appropriate, Alert and oriented to time, place, person, mood and affect Debridement Note Post-Debridement Measurements/Treatment WC - Nurse 2 - General Ulcer CM Notes Start: 06/13/18 15:37 Freq: Status: Active Protocol: Activity Type Activity Date Activity User E-Sign Co-Sign Detail Recorded Client Recorded Date Recorded By Document 06/13/18 16:10 CS [id number] 06/13/18 16:12 CS 06/13/18 16:10 Wound Center Nurse 2 #23 Left dorsal Foot -Time 16:10 -Correct Patient Yes -Correct Side, Site, Position Yes -Correct Procedure Yes -Procedure Performed Yes -Clinical Debridement Selective -Post Debridement Size (cm) - Length 0.1 -Post Debridement Size (cm) - Width 0.1 -Post Debridement Size (cm) - Depth 0.1 -Total Square Cm 0.01 -Wound/Ulcer Outcome Healed- Epithelialized -Ulcer Cleansing Not Cleansed -Foul Odor after Cleansing No -Bioengineered Tissue No -Bleeding Controlled with NA -Offloading No -Type of Offloading Surgical Shoe -Treatment Response Procedure Tolerated Well # 22 RIGHT 3rd TOE ANTERIOR -Time 16:11 -Correct Patient Yes -Correct Side, Site, Position Yes -Correct Procedure Yes -Procedure Performed Yes -Type of Procedure Debridement -Clinical Debridement Bone -Post Debridement Size (cm) - Length 0.6 -Post Debridement Size (cm) - Width 0.7 -Post Debridement Size (cm) - Depth 0.2 -Total Square Cm 0.42 -Wound/Ulcer Outcome Not Healed -Ulcer Cleansing Not Cleansed -Foul Odor after Cleansing No -Bioengineered Tissue No -Bleeding Controlled with NA -Offloading No -Type of Offloading Surgical Shoe -Treatment Response Procedure Tolerated Well Pain Scale: 0-10 Numeric Is Patient Pain Free? Yes Wound debrided: RIght 3rd toe DFU calvin 2 Laterality: Right Type of Debridement: Excisional debridement Anesthesia Used: 5% Lidocaine Gel Depth: in the subcutaneous layer, to bone Percentage of wound debrided: 100 Instrument Used: 3mm curette Tissue Removed: slough and devitalized tissue Severity: Fat Layer Exposed Amount of bleeding with debridement: Mild Bleeding Controlled with: Pressure Patient tolerated procedure well Assessment/Plan Active Problems (Last Reviewed 10/15/17 @ 14:22 by Nataly Christian) Diabetic ulcer of toe of right foot associated with diabetes mellitus due to underlying condition (Acute) calvin 2 right third toe PAD (peripheral artery disease) (Chronic) Diabetes mellitus with neuropathy (Chronic) Delayed wound healing (Chronic) Lower extremity edema (Chronic) Morbid obesity (Chronic) Non compliance with medical treatment (Chronic) Type II diabetes mellitus, uncontrolled (Chronic) Peripheral vascular disease (Chronic) Assessment: Calvin 2 ulcer right third toe. calvin grade 1 ulcer, left plantar/dorsal foot - recently healed. peripheral vascular disease with recent intervention 2018. diabetes with neuropathy. malnutrition. non compliance history Plan: The patient was seen and examined at the wound center today and was updated on the plan of care. A subcutaneous debridement was performed today. The patient tolerated the procedure well. The patients wound care will consist of: Applying Lac-Hydrin to the callused areas on the left dorsal foot, discontinuing Santyl to the right third toe ulcer and starting moistened daily jarred to right third toe DFU. Given patient's DFU's and diabetic neuropathy, will apply for Regranex, this is pending. Double layer Tubigrip for compression and encourage leg elevation. Wound cultures were collected of the left plantar ulcer and showed anaerobic cocci, staph aureus, Proteus and Klebsiella, patient started on Augmentin twice daily which he completed and instructed to take Culturelle. Wound cultures were then collected to the right third toe ulcer in 05/2018 and was negative. Baseline bloodwork reviewed and ESR elevated at 66, A1c elevated at 8.5 (referred to endocrinology, has appointment next week), GFR diminished at 46, and prealbumin within normal limits at 24. Recent xray reviewed which demonstrated no acute bony process destruction to right third toe, recent bloodwork reviewed which actually showed that his ESR decreased from 66 to 52, CRP decreased from 17 to 14, and his CBC was essentially WNL. Instructed to follow-up with PCP and endo for tighter glucose control. Vascular studies ordered and pending, patient recently did have intervention in July [address] Redding, records were requested. Patient educated on the importance of diet and blood sugar control on wound healing and instructed to increase protein and vitamin C intake. Patient verbalized understanding. Patient will follow up at wound healing center in one week or sooner if needed. Patient is to resume his nutritional supplementation of Glucerna high-protein. Did discuss with patient the importance of offloading, he continues to be noncompliant with his offloading shoes. A prescription was given for extra-depth diabetic shoes with dual density Plastizote offloading liners including a left toe filler, he picked this up but has not utilized it yet. Patient was strongly encouraged to pick this up and to remain compliant with offloading. This note was generated with [employer] dictation software. It may contain incorrect words, spelling, and punctuation that were not noted in checking the note before signing Code Visit [id number]: [id number] Rin subq tissue 20 sq cm/<
[2018-06-26 14:46] VITALS: BP 155/84; PULSE 92; RESP 18; TEMP 36.7; BMI 32.1
--- NOTE | 2018-06-26 15:25 | BON_PTH ---
PATIENT: VANDANA ALCANTAR LOC: [facility] U#:[id number] AGE/SX: 68/M ROOM: RE06/26/[address]: WILTON Nicholas : 1950 BED: DIS: 07/11/2018 SPEC #: [id number] RECD: 06/26/18 16:24 STATUS: NOY REQ #: [id number] POLLY: 06/26/18 15:[address]: Margaret Thomas DEPT: SURGICAL PATHOLOGY RECD BY: Paresh Coronel ENTERED: 06/27/18 12:16 SP TYPE: Bone OTHR DR: MD Fab Sanches Chi, WILTON Tissues: Bone of foot, NOS Procedures: Decalcification bone/plaque Surgery Specimen Level IV Comments: @ Ordering doctor for DEC edited from DEBORAH to @ by ASTRID at 06/27/18 1217 @ Ordering doctor for SUIV edited from DEBORAH to @ by ASTRID at 06/27/18 1217 @ Submitting doctor edited from DEBORAH to @ by ASTRID at 06/27/18 1217 HEADER OPERATION: Bone excision from right third toe ulcer PRE-OP DIAGNOSIS: Chronic ulcer exposed bone / osteomyelitis TISSUE SUBMITTED: Bone excision from right third toe ulcer MICROSCOPIC DIAGNOSIS Bone, right third toe ulcer, biopsy: Chronic inflammation and reactive changes of bone. Soft tissue with changes of ulcer. AM:marcelo 07/01/18 COMMENT There is no evidence of acute osteomyelitis. Clinical correlation is suggested. MICROSCOPIC DESCRIPTION Slides are reviewed. GROSS DESCRIPTION Received in fixative is one container labeled with the patient's name and designated right third toe. The specimen consists of multiple irregular fragments of her soft tissue mixed with possible fragments of bone that in aggregate measure 0.5 x 0.5 x 0.1 cm. The entire specimen is submitted in one cassette after short decalcification. / SJ:uma 06/27/18 TC: 3 CPT: 99623, 47526
--- NOTE | 2018-06-26 16:31 | PN.PCM_ITS ---
(1) Chronic ulcer of right foot with necrosis of bone Status: Chronic Current Visit: Yes Code(s): L97.514 - Non-pressure chronic ulcer of other part of right foot with necrosis of bone (2) Diabetic ulcer of right foot with bone involvement without evidence of necrosis Status: Acute Current Visit: Yes Qualifiers: Diabetic foot ulcer location: toe Diabetes mellitus type: type 2 Qualified Code(s): E11.621 - Type 2 diabetes mellitus with foot ulcer; L97.516 - Non-pressure chronic ulcer of other part of right foot with bone involvement wit hout evidence of necrosis Code(s): E11.621 - Type 2 diabetes mellitus with foot ulcer; L97.516 - Non- pressure chronic ulcer of other part of right foot with bone involvement without evidence of necrosis (3) Skin ulcer of third toe of right foot with fat layer exposed Status: Chronic Current Visit: Yes Code(s): L97.512 - Non-pressure chronic ulcer of other part of right foot with fat layer exposed (4) Chronic ulcer of left foot with fat layer exposed Status: Chronic Current Visit: Yes Code(s): L97.522 - Non-pressure chronic ulcer of other part of left foot with fat layer exposed Comment: dorsal foot (5) Diabetes mellitus with neuropathy Status: Chronic Current Visit: Yes Qualifiers: Diabetes mellitus type: type 2 Code(s): E11.40 - Type 2 diabetes mellitus with diabetic neuropathy, unspecified (6) Malnutrition Status: Chronic Current Visit: Yes Code(s): E46 - Unspecified protein- calorie malnutrition (7) Delayed wound healing Status: Chronic Current Visit: Yes Code(s): T14.8 - Other injury of unspecified body region (8) Lower extremity edema Status: Chronic Current Visit: Yes Code(s): R60.0 - Localized edema Type of Wound Date of Service: 06/26/18 Chief Complaint: diabetic Left foot ulcers and right third toe ulcer History of Wound: This 68-year-old male who presents to the wound healing center today with complaint of recurrent left plantar foot ulcer and also an ulceration on his right third toe. He is unsure when these ulcerations occurred but states that they have occurred over the last month. He currently is not using any offloading mechanisms. He states that the left plantar foot ulcer is recurrent and a chronic concern for him. He has not been using any [id number] treatments at this time. He denies any purulent drainage, increasing pain, malodor, redness, or systemic signs of infection such as fever chills. He does state that his chronic neuropathy interferes with the sensation of his feet. The patient otherwise denies any fever, chills, nausea, vomiting, shortness of breath, chest pain or pressure, palpitations, orthopnea, lower extremity edema, syncope or presyncopal episodes. Progress of Wound: stable - Physical Exam Vital Signs Temp Pulse Resp BP 98.0 F 92 18 155/84 H 06/26/18 14:46 06/26/18 14:46 06/26/18 14:46 06/26/18 14:46 General: Alert, Oriented x3, Cooperative Extremities: No cyanosis, Capillary Refill Less than 3 Seconds, No Calf Tenderness - Negative Rashad and Tenorio sign bilateral, Diminished Peripheral Pulses, Edema - Mild bilateral lower extremities, - - Dorsal contraction of lesser toes right. Transmetatarsal amputation left Skin: Ulcer/ Wound - No purulence, erythema, streaking, odor, or acute infection bilateral. The right third toe dorsal ulcer site has granular fibrous base and also exposed bone at the proximal interphalangeal joint; there is no necrosis. The left foot has a plantar callus and upon debridement there is no skin discontinuity. There was some hemorrhagic tissue noted that was dried within the callus site. There is a skin discontinuity to the dorsal distal aspect of the left foot and this is very superficial and has healthy granulation tissue noted. No infection or necrotic tissue was noted to left foot. Wound Measurements and Assessment WC - Nurse 1 - General Ulcer Measurement Start: 06/13/18 15:37 Freq: Status: Active Protocol: Activity Type Activity Date Activity User E-Sign Co-Sign Detail Recorded Client Recorded Date Recorded By Document 06/26/18 14:46 MW [id number] 06/26/18 14:52 MW 06/26/18 14:46 Wound Center Nurse 1 [Ulcer Assessment] # 22 RIGHT 3rd TOE ANTERIOR -Combined with other wound No -Current Size (cm) - Length 0.3 -Current Size (cm) - Width 0.6 -Current Size (cm) - Depth 0.1 -Total Square Cm 0.18 -Photo Taken No -Epithelialization None Present -Tunneling No -Undermining/Tunneling No -Circular Undermining No -Exudate Amt None Present -Wound Margin Flat & Intact -Granulation Amt None Present (0 %) -Granulation Quality N/A -Slough/Fibrin Yes -Necrosis Amt Large (67-100%) -Necrotic Tissue Type Adherent Slough -Structure Exposed N/A -Texture (Maggy-wound Skin Appearance) Assessed Scarring -Moisture (Magyg-wound Skin Appearance Assessed ) Dry/Scaly -Color (Maggy-wound Skin Appearance) No Abnormality Assessed -Temperature (Maggy-wound Skin No Abnormality Appearance) (Pt Warm) -Tenderness on Palpation (Maggy-wound No Skin Appearance) -Ulcer Cleansing Rinsed/ Irrigated with Saline -Foul Odor after Cleansing No -Anesthetic Used 4% Lidocaine Solution [Edema Assessment] -Lower Limb Edema Present Yes -Right Calf (cm) 36.6 -Right Ankle (cm) 21.6 -Left Calf (cm) 38.0 -Left Ankle (cm) 23.5 WC - Nurse 2 - General Ulcer CM Notes Start: 06/13/18 15:37 Freq: Status: Active Protocol: Activity Type Activity Date Activity User E-Sign Co-Sign Detail Recorded Client Recorded Date Recorded By Document 06/26/18 15:31 JOE [id number] 06/26/18 15:32 JOE 06/26/18 15:31 Wound Center Nurse 2 [Procedure/Treatment] # 22 RIGHT 3rd TOE ANTERIOR -Time 15:31 -Correct Patient Yes -Correct Side, Site, Position Yes -Correct Procedure Yes -Procedure Performed Yes -Type of Procedure Debridement -Clinical Debridement Bone -Post Debridement Size (cm) - Length 0.5 -Post Debridement Size (cm) - Width 0.7 -Post Debridement Size (cm) - Depth 0.4 -Total Square Cm 0.35 -Wound/Ulcer Outcome Not Healed -Ulcer Cleansing Rinsed/ Irrigated with Saline -Foul Odor after Cleansing No -Bioengineered Tissue No -Bleeding Controlled with Pressure -Offloading Yes -Type of Offloading Surgical Shoe -Treatment Response Procedure Tolerated Well [See Physician Procedure note for Specifics] Pain Scale: 0-10 Numeric [Pain] -Is Patient Pain Free? Yes Musculoskeletal: No Tenderness to Palpation of Joints or Extremities, Muscle Wasting Neurological: - - Lack of normal epicritic sensation light touch bilateral lower extremities consistent with neuropathy Psych/Mental Status: Normal Affect, Appropriate Debridement Note Post-Debridement Measurements/Treatment WC - Nurse 2 - General Ulcer CM Notes Start: 06/13/18 15:37 Freq: Status: Active Protocol: Activity Type Activity Date Activity User E-Sign Co-Sign Detail Recorded Client Recorded Date Recorded By Document 06/13/18 16:10 [id number] 06/13/18 16:12 CS Document 06/26/18 15:31 [id number] 06/26/18 15:32 06/13/18 06/26/18 16:10 15:31 Wound Center Nurse 2 #23 Left dorsal Foot -Time 16:10 -Correct Patient Yes -Correct Side, Site, Position Yes -Correct Procedure Yes -Procedure Performed Yes -Clinical Debridement Selective -Post Debridement Size (cm) - Length 0.1 -Post Debridement Size (cm) - Width 0.1 -Post Debridement Size (cm) - Depth 0.1 -Total Square Cm 0.01 -Wound/Ulcer Outcome Healed- Epithelialized -Ulcer Cleansing Not Cleansed -Foul Odor after Cleansing No -Bioengineered Tissue No -Bleeding Controlled with NA -Offloading No -Type of Offloading Surgical Shoe -Treatment Response Procedure Tolerated Well # 22 RIGHT 3rd TOE ANTERIOR -Time 16:11 15:31 -Correct Patient Yes Yes -Correct Side, Site, Position Yes Yes -Correct Procedure Yes Yes -Procedure Performed Yes Yes -Type of Procedure Debridement Debridement -Clinical Debridement Bone Bone -Post Debridement Size (cm) - Length 0.6 0.5 -Post Debridement Size (cm) - Width 0.7 0.7 -Post Debridement Size (cm) - Depth 0.2 0.4 -Total Square Cm 0.42 0.35 -Wound/Ulcer Outcome Not Healed Not Healed -Ulcer Cleansing Not Cleansed Rinsed/ Irrigated with Saline -Foul Odor after Cleansing No No -Bioengineered Tissue No No -Bleeding Controlled with NA Pressure -Offloading No Yes -Type of Offloading Surgical Shoe Surgical Shoe -Treatment Response Procedure Procedure Tolerated Well Tolerated Well Pain Scale: 0-10 Numeric Is Patient Pain Free? Yes Yes Wound debrided: dorsal fourth toe Laterality: Right Wound Grade/Stage: grade 2 Type of Debridement: Excisional debridement Anesthesia Used: 5% Lidocaine Gel Depth: in the subcutaneous layer, to bone Percentage of wound debrided: 100 Instrument Used: #15 blade, - - tissue nipper Tissue Removed: fibrous, devitalized subcutaneous and bone, biofilm, slough Severity: Necrosis of Bone Amount of bleeding with debridement: Mild Bleeding Controlled with: Pressure Patient tolerated procedure well - Additional Wound Wound debrided: dorsal foot Laterality: Left Wound Grade/Stage: grade 1 Type of Debridement: Excisional debridement Anesthesia Used: 5% Lidocaine Gel Depth: in the subcutaneous layer Percentage of wound debrided: 100 Instrument Used: #15 blade Tissue Removed: fibrous, devitalized subcutaneous, biofilm, slough Severity: Fat Layer Exposed Amount of bleeding with debridement: Mild Bleeding Controlled with: Pressure Patient tolerated procedure: Patient tolerated procedure well Assessment/Plan Active Problems (Last Reviewed 10/15/17 @ 14:22 by Nataly Christian) Skin ulcer of third toe of right foot with fat layer exposed (Chronic) Diabetic ulcer of toe of right foot associated with diabetes mellitus due to underlying condition (Acute) calvin 2 right third toe Diabetic ulcer of right foot with bone involvement without evidence of necrosis (Acute) 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) Chronic ulcer of left foot with fat layer exposed (Chronic) dorsal foot PAD (peripheral artery disease) (Chronic) Diabetes mellitus with neuropathy (Chronic) Malnutrition (Chronic) Delayed wound healing (Chronic) Lower extremity edema (Chronic) Morbid obesity (Chronic) Non compliance with medical treatment (Chronic) Type II diabetes mellitus, uncontrolled (Chronic) Peripheral vascular disease (Chronic) Assessment: Calvin 2 ulcer right third toe: rule out osteomyelitis. calvin grade 1 ulcer, left plantar healed/dorsal foot open and noninfected. peripheral vascular disease with recent intervention 2018. diabetes with neuropathy. malnutrition. non compliance history Plan: The patient was seen and examined at the wound center today and was updated on the plan of care. A subcutaneous debridement was performed today to the left foot and including bone on the right foot. The patient tolerated the procedure well. The patients wound care will consist of: Applying Lac-Hydrin to the callused areas and the continuation of moistened daily jarred to right third toe DFU and dorsal left foot ulcer as well. Prior authorization for reGranix per previous provider, Fab Shine, was initiated and this is pending. This has growth factors included to stimulate and optimize healing. Double layer Tubigrip for compression and encourage leg elevation. Baseline bloodwork reviewed and ESR elevated at 66, A1c elevated at 8.5 (referred to endocrinology, has appointment next week), GFR diminished at 46, and prealbumin within normal limits at 24. Recent xray reviewed which demonstrated no acute bony process destruction to right third toe, recent bloodwork reviewed which actually showed that his ESR decreased from 66 to 52, CRP decreased from 17 to 14, and his CBC was essentially WNL. Due to these lab findings, x-ray findings, and now visualized exposed bone from the right third toe ulcer site, this bone was debrided with the aforementioned instrumentation and sent to both pathology microbiology for further evaluation. These results are pending. Instructed to follow-up with PCP and endo for tighter glucose control. Vascular studies ordered and pending, patient recently did have intervention in July [address] Redding, records were requested. Patient educated on the importance of diet and blood sugar control on wound healing and instructed to increase protein and vitamin C intake. Patient verbalized understanding. Patient will follow up at wound healing center in one week or sooner if needed. Patient is to resume his nutritional supplementation of Glucerna high-protein. Did discuss with patient the importance of offloading, he continues to be noncompliant with his offloading shoes. I recommend he offload with surgical shoes at this time. Resuming extra-depth diabetic shoes will be considered once his ulcerations are healed. I answered all his questions. I recommend he follow-up with the wound healing center 1 week or call sooner if is any questions or concerns.
== END 2018-07-11 23:59 ==
LOC: WC 14:45
PROVIDERS: Family Provider Family Medicine Geriatric Medicine; PCP Family Medicine Geriatric Medicine; Referring Provider Nurse Practitioner Family; Visit Provider Nurse Practitioner Family
DX: E11.621 Type 2 diabetes mellitus with foot ulcer (principal); E11.51 Type 2 diabetes mellitus with diabetic peripheral angiopathy without gangrene; E11.22 Type 2 diabetes mellitus with diabetic chronic kidney disease; L97.512 Non-pressure chronic ulcer of other part of right foot with fat layer exposed; I12.9 Hypertensive chronic kidney disease with stage 1 through stage 4 chronic kidney disease, or unspecified chronic kidney disease; N18.9 Chronic kidney disease, unspecified; E11.42 Type 2 diabetes mellitus with diabetic polyneuropathy; Z91.19 Patient's noncompliance with other medical treatment and regimen; R60.0 Localized edema; E66.01 Morbid (severe) obesity due to excess calories; Z71.3 Dietary counseling and surveillance; E11.65 Type 2 diabetes mellitus with hyperglycemia
CPT/HCPCS: 11042; 11044; 87070; 87075; 87077; 87186; 87205; 88305; 88311

== ENCOUNTER → 2018-07-08 14:40 | Outpatient (CLI) | payer MEDICARE, SELFPAY ==
[2018-05-16 15:30] VITALS: BMI 32.1
[2018-06-26 14:46] VITALS: BMI 32.1
[2018-07-08 16:35] LABS: Absolute Lymphocyte Count 1.27 X10^3/ul (0.83-4.51); Basophil# 0.03 X10^3/uL; Basophil% 0.4 % (0-1); Eosinophil# 0.18 X10^3/uL; Eosinophils% 2.5 % (0-5); Hematocrit 44.7 % (40-54); Hemoglobin 14.4 g/dl (13.0-16.5); Lymphocyte # 1.27 X10^3/ul (4.0); Lymphocyte % 17.6 % (19-41); Mean Corp Hgb Conc 32.2 g/gl (32-36); Mean Corpuscular Hgb 30.3 pg (27.0-32.0); Mean Corpuscular Volume 94.1 fL (80-94); Mean Platelet Vol. 10.1 fl (6.2-12.0); Monocyte# 0.75 X10^3/uL; Monocyte% 10.4 % (0-10); Neutrophil # 4.97 X10^3/uL (2.7-7.7); Neutrophil % 68.8 % (47-70); Platelet Count 244 K/mm3 (150-450); RBC Distribution Width CV 14.3 % (11.6-14.6); RBC Distribution Width SD 49.2 fl (35.1-43.9); Red Blood Count 4.75 M/mm3 (4.6-6.2); White Blood Count 7.2 K/mm3 (4.4-11.0)
[2018-07-08 16:38] LABS: POSITIVE COUNT NO; POSITIVE DIFFERENTIAL NO; POSITIVE MORPHOLOGY NO
[2018-07-08 17:05] LABS: Vitamin D,25 Hydroxy 29.5 ng/mL (29.95-100.01)
[2018-07-08 17:09] LABS: ALB/GLOB Ratio 0.7 RATIO (0.9-2.4); AST(SGOT) 25 U/L (15-37); Alanine Aminotransfer ALT/SGPT 31 U/L (16-61); Albumin, Serum 3.1 g/dL (3.2-5.0); Alkaline Phosphatase 83 U/L (45-117); Anion Gap 11 (5-15); BUN 13 mg/dL (7-18); BUN/Creat Ratio 10.4 RATIO (10-20); Calcium,Total 8.4 mg/dL (8.5-10.1); Chloride 105 mmol/L (98-107); Creatinine, Serum 1.25 mg/dL (0.70-1.30); EST Glomerular Filtration Rate 61 mL/min (>60); Est Glom Filt Rate - Afr Amer 74 mL/min (>60); Globulin 4.3 g/dL (2.2-4.2); Glucose 102 mg/dL (74-106); Potassium 3.8 mmol/L (3.5-5.1); Protein, Total 7.4 g/dL (6.4-8.2); Sodium Level 141 mmol/L (136-145); Thyroid Stim Hormone (TSH) 0.71 uIU/mL (0.358-3.74)
== END ==
PROVIDERS: Family Provider Family Medicine Geriatric Medicine; PCP Family Medicine Geriatric Medicine; Visit Provider Family Medicine Geriatric Medicine
DX: E11.9 Type 2 diabetes mellitus without complications (principal); E55.9 Vitamin D deficiency, unspecified; E03.9 Hypothyroidism, unspecified; I10 Essential (primary) hypertension
CPT/HCPCS: 36415; 80053; 82306; 84443; 85025

== ENCOUNTER 2018-08-07 13:15 | Outpatient (RCR) | payer MEDICARE, SELFPAY ==
[2018-07-12 01:05] VITALS: BP 155/84; PULSE 92; RESP 18; TEMP 36.7
[2018-07-17 13:37] VITALS: BP 143/69; PULSE 76; RESP 18; TEMP 35.4; BMI 32.1
--- NOTE | 2018-07-17 16:23 | PCM.WC.PN ---
(1) Skin ulcer of third toe of right foot with fat layer exposed Status: Chronic Current Visit: Yes Code(s): L97.512 - Non-pressure chronic ulcer of other part of right foot with fat layer exposed (2) Chronic ulcer of left foot with fat layer exposed Status: Chronic Current Visit: Yes Code(s): L97.522 - Non-pressure chronic ulcer of other part of left foot with fat layer exposed Comment: dorsal foot (3) Hammer toe of right foot Status: Acute Current Visit: Yes Code(s): M20.41 - Other hammer toe(s) (acquired), right foot (4) PAD (peripheral artery disease) Status: Chronic Current Visit: Yes Code(s): I73.9 - Peripheral vascular disease, unspecified (5) Diabetes mellitus with neuropathy Status: Chronic Current Visit: Yes Code(s): E11.40 - Type 2 diabetes mellitus with diabetic neuropathy, unspecified (6) Malnutrition Status: Chronic Current Visit: Yes Code(s): E46 - Unspecified protein-calorie malnutrition (7) Delayed wound healing Status: Chronic Current Visit: Yes Code(s): T14.8 - Other injury of unspecified body region (8) Lower extremity edema Status: Chronic Current Visit: Yes Code(s): R60.0 - Localized edema Type of Wound Date of Service: 07/17/18 Chief Complaint: diabetic Left foot ulcer and right third toe ulcer History of Wound: This 68-year-old male who presents to the wound healing center today with complaint of recurrent left plantar foot ulcer and also an ulceration on his right third toe. He denies fever, chill, nausea, vomiting. He is try to take pressure off the ulcer sites more this past week. He missed his appointment last week. Progress of Wound: Healed left foot ulcer. New left foot ulcer. Improving right foot ulcer - Physical Exam Vital Signs Temp Pulse Resp BP 95.7 F L 76 18 143/69 H 07/17/18 13:37 07/17/18 13:37 07/17/18 13:37 07/17/18 13:37 General: Alert, Oriented x3, Cooperative Extremities: No cyanosis, Capillary Refill Less than 3 Seconds, No Calf Tenderness - Negative Rashad and Tenorio sign bilateral, Diminished Peripheral Pulses, Edema, - - Dorsal contraction of lesser toes right foot. Transmetatarsal amputation stump left foot Skin: Ulcer/ Wound - No purulence, erythema, streaking, odor, infection, deep tissue exposure, maceration or infection bilateral lower extremities. Full epithelialization is noted to the previous dorsal medial ulcer site of the left foot. Now there is new superficial skin discontinuity to the plantar medial left foot. There is no longer any exposed bone to the right third toe ulcer site and this wound bed is improved with granulation tissue. Wound Measurements and Assessment WC - Nurse 1 - General Ulcer Measurement Start: 07/17/18 13:37 Freq: Status: Active Protocol: Activity Type Activity Date Activity User E-Sign Co-Sign Detail Recorded Client Recorded Date Recorded By Document 07/17/18 13:37 [facility] [id number] 07/17/18 13:43 [facility] 07/17/18 13:37 Wound Center Nurse 1 [Ulcer Assessment] # 22 RIGHT 3rd TOE ANTERIOR -Combined with other wound No -Current Size (cm) - Length 0.6 -Current Size (cm) - Width 0.5 -Current Size (cm) - Depth 0.3 -Total Square Cm 0.30 -Date of Last Picture (Recall this 07/17/18 field) -Photo Taken Yes -Epithelialization None Present -Tunneling No -Undermining/Tunneling No -Circular Undermining No -Exudate Amt None Present -Wound Margin Flat & Intact -Granulation Amt None Present (0 %) -Slough/Fibrin Yes -Necrosis Amt Large (67-100%) -Necrotic Tissue Type Adherent Slough -Texture (Maggy-wound Skin Appearance) Assessed Scarring -Moisture (Maggy-wound Skin Appearance Assessed ) Dry/Scaly -Color (Maggy-wound Skin Appearance) Assessed -Temperature (Maggy-wound Skin No Abnormality Appearance) (Pt Warm) -Tenderness on Palpation (Maggy-wound No Skin Appearance) -Ulcer Cleansing Rinsed/ Irrigated with Saline -Foul Odor after Cleansing No -Anesthetic Used 5% Lidocaine Gel [Edema Assessment] -Lower Limb Edema Present Yes -Right Calf (cm) 35.2 -Right Ankle (cm) 22.5 -Left Calf (cm) 36 -Left Ankle (cm) 23 WC - Nurse 2 - General Ulcer CM Notes Start: 07/17/18 13:37 Freq: Status: Active Protocol: Activity Type Activity Date Activity User E-Sign Co-Sign Detail Recorded Client Recorded Date Recorded By Document 07/17/18 14:12 [id number] 07/17/18 14:15 07/17/18 14:12 Wound Center Nurse 2 [Procedure/Treatment] # 22 RIGHT 3rd TOE ANTERIOR -Time 14:13 -Correct Patient Yes -Correct Side, Site, Position Yes -Correct Procedure Yes -Procedure Performed Yes -Type of Procedure Debridement -Clinical Debridement Subcutaneous -Post Debridement Size (cm) - Length 0.6 -Post Debridement Size (cm) - Width 0.6 -Post Debridement Size (cm) - Depth 0.3 -Total Square Cm 0.36 -Wound/Ulcer Outcome Not Healed -Ulcer Cleansing Rinsed/ Irrigated with Saline -Foul Odor after Cleansing No -Bioengineered Tissue No -Bleeding Controlled with Pressure -Offloading Yes -Type of Offloading Surgical Shoe -Treatment Response Procedure Tolerated Well #21 LEFT PLANTAR FOOT -Time 14:14 -Correct Patient Yes -Correct Side, Site, Position Yes -Correct Procedure Yes -Procedure Performed Yes -Type of Procedure Debridement -Clinical Debridement Subcutaneous -Post Debridement Size (cm) - Length 0.9 -Post Debridement Size (cm) - Width 0.6 -Post Debridement Size (cm) - Depth 0.2 -Total Square Cm 0.54 -Wound/Ulcer Outcome Not Healed -Ulcer Cleansing Rinsed/ Irrigated with Saline -Foul Odor after Cleansing No -Bioengineered Tissue No -Bleeding Controlled with Pressure -Offloading Yes -Type of Offloading Surgical Shoe -Treatment Response Procedure Tolerated Well [See Physician Procedure note for Specifics] Pain Scale: 0-10 Numeric [Pain] -Is Patient Pain Free? Yes Musculoskeletal: No Tenderness to Palpation of Joints or Extremities, Muscle Wasting Neurological: - - Lack of normal epicritic sensation light touch bilateral lower extremities is consistent with neuropathy Psych/Mental Status: Normal Affect, Appropriate Debridement Note Post-Debridement Measurements/Treatment WC - Nurse 2 - General Ulcer CM Notes Start: 07/17/18 13:37 Freq: Status: Active Protocol: Activity Type Activity Date Activity User E-Sign Co-Sign Detail Recorded Client Recorded Date Recorded By Document 07/17/18 14:12 [id number] 07/17/18 14:15 07/17/18 14:12 Wound Center Nurse 2 # 22 RIGHT 3rd TOE ANTERIOR -Time 14:13 -Correct Patient Yes -Correct Side, Site, Position Yes -Correct Procedure Yes -Procedure Performed Yes -Type of Procedure Debridement -Clinical Debridement Subcutaneous -Post Debridement Size (cm) - Length 0.6 -Post Debridement Size (cm) - Width 0.6 -Post Debridement Size (cm) - Depth 0.3 -Total Square Cm 0.36 -Wound/Ulcer Outcome Not Healed -Ulcer Cleansing Rinsed/ Irrigated with Saline -Foul Odor after Cleansing No -Bioengineered Tissue No -Bleeding Controlled with Pressure -Offloading Yes -Type of Offloading Surgical Shoe -Treatment Response Procedure Tolerated Well #21 LEFT PLANTAR FOOT -Time 14:14 -Correct Patient Yes -Correct Side, Site, Position Yes -Correct Procedure Yes -Procedure Performed Yes -Type of Procedure Debridement -Clinical Debridement Subcutaneous -Post Debridement Size (cm) - Length 0.9 -Post Debridement Size (cm) - Width 0.6 -Post Debridement Size (cm) - Depth 0.2 -Total Square Cm 0.54 -Wound/Ulcer Outcome Not Healed -Ulcer Cleansing Rinsed/ Irrigated with Saline -Foul Odor after Cleansing No -Bioengineered Tissue No -Bleeding Controlled with Pressure -Offloading Yes -Type of Offloading Surgical Shoe -Treatment Response Procedure Tolerated Well Pain Scale: 0-10 Numeric Is Patient Pain Free? Yes Wound debrided: dorsal third toe Laterality: Right Wound Grade/Stage: grade 2 Type of Debridement: Excisional debridement Anesthesia Used: 5% Lidocaine Gel Depth: in the subcutaneous layer Percentage of wound debrided: 100 Instrument Used: #15 blade Tissue Removed: fibrous, devitalized subcutaneous, biofilm, slough Severity: Fat Layer Exposed Amount of bleeding with debridement: Mild Bleeding Controlled with: Pressure Patient tolerated procedure well - Additional Wound Wound debrided: plantar foot Laterality: Left Wound Grade/Stage: grade 1 Type of Debridement: Excisional debridement Anesthesia Used: 5% Lidocaine Gel Depth: in the subcutaneous layer Percentage of wound debrided: 100 Instrument Used: #15 blade Tissue Removed: fibrous, devitalized subcutaneous, biofilm, slough Severity: Fat Layer Exposed Amount of bleeding with debridement: Mild Bleeding Controlled with: Pressure Patient tolerated procedure: Patient tolerated procedure well Assessment/Plan Active Problems (Last Reviewed 10/15/17 @ 14:22 by Nataly Christian) Skin ulcer of third toe of right foot with fat layer exposed (Chronic) Chronic ulcer of left foot with fat layer exposed (Chronic) dorsal foot Hammer toe of right foot (Acute) PAD (peripheral artery disease) (Chronic) Diabetes mellitus with neuropathy (Chronic) Malnutrition (Chronic) Delayed wound healing (Chronic) Lower extremity edema (Chronic) Assessment: Calvin 2 ulcer right third toe: rule out osteomyelitis. calvin grade 1 ulcer, left plantar now open/healed dorsal foot ulcer today. peripheral vascular disease with recent intervention 2018. diabetes with neuropathy. malnutrition. non compliance history Plan: The patient was seen and examined at the wound center today and was updated on the plan of care. A subcutaneous debridement was performed today to the left foot. the previous debrided bone of the right foot was negative for osteomyelitis. The patients wound care will consist of: Applying Lac-Hydrin to the callused areas and the continuation of moistened daily jarred to right third toe DFU and plantar left foot ulcer as well. Serial lab trends and x-rays will be followed throughout the healing process. To keep pressure off the ulcer sites to optimize healing; he has surgical shoes. To continue with nutritional supplementation and proper glycemic control to optimize healing. He was reassured no local signs of infection are noted today. To monitor closely. Instructed to follow-up with PCP and endo for tighter glucose control. Vascular studies ordered and pending, patient recently did have intervention in July [address] [place]. Patient will follow up at wound healing center in one week or sooner if needed. Patient is to resume his nutritional supplementation of Glucerna high-protein. Resuming extra-depth diabetic shoes will be considered once his ulcerations are healed. He asked about this again today. I answered all the questions.
[2018-08-07 13:33] VITALS: BP 135/59; PULSE 68; RESP 20; TEMP 36.6; BMI 32.1
--- NOTE | 2018-08-07 15:05 | PCM.WC.PN ---
(1) Skin ulcer of third toe of right foot with fat layer exposed Status: Chronic Current Visit: Yes Code(s): L97.512 - Non-pressure chronic ulcer of other part of right foot with fat layer exposed (2) Chronic ulcer of left foot with fat layer exposed Status: Chronic Current Visit: Yes Code(s): L97.522 - Non-pressure chronic ulcer of other part of left foot with fat layer exposed Comment: dorsal foot (3) Hammer toe of right foot Status: Acute Current Visit: Yes Code(s): M20.41 - Other hammer toe(s) (acquired), right foot (4) PAD (peripheral artery disease) Status: Chronic Current Visit: Yes Code(s): I73.9 - Peripheral vascular disease, unspecified (5) Diabetes mellitus with neuropathy Status: Chronic Current Visit: Yes Code(s): E11.40 - Type 2 diabetes mellitus with diabetic neuropathy, unspecified (6) Malnutrition Status: Chronic Current Visit: Yes Code(s): E46 - Unspecified protein-calorie malnutrition (7) Delayed wound healing Status: Chronic Current Visit: Yes Code(s): T14.8 - Other injury of unspecified body region (8) Lower extremity edema Status: Chronic Current Visit: Yes Code(s): R60.0 - Localized edema Type of Wound Date of Service: 08/07/18 Chief Complaint: diabetic Left foot ulcer and right third toe ulcer History of Wound: This 68-year-old male who presents to the wound healing center today with complaint of recurrent left plantar foot ulcer and also an ulceration on his right third toe. He denies fever, chill, nausea, vomiting. He is try to take pressure off the ulcer sites more this past week. Progress of Wound: Improving left foot ulcer. Improving right foot ulcer - Physical Exam Vital Signs Temp Pulse Resp BP 97.8 F 68 20 H 135/59 H 08/07/18 13:33 08/07/18 13:33 08/07/18 13:33 08/07/18 13:33 General: Alert, Oriented x3, Cooperative Extremities: No cyanosis, Capillary Refill Less than 3 Seconds, No Calf Tenderness - negative tre and villagomez signs bilateral, Diminished Peripheral Pulses, Edema - mild, - - Left transmetatarsal amputation. Dorsal contraction of lesser toes right foot Skin: Ulcer/ Wound - no purulence, erythema, streaking, odor, or infection bilateral. The left plantar foot ulcer site is very superficial and scant. Progressive granulation tissue noted to the right toe ulcer. The peripheral skin is hairless and atrophic bilateral Wound Measurements and Assessment WC - Nurse 1 - General Ulcer Measurement Start: 07/17/18 13:37 Freq: Status: Active Protocol: Activity Type Activity Date Activity User E-Sign Co-Sign Detail Recorded Client Recorded Date Recorded By Document 08/07/18 13:33 DL [id number] 08/07/18 13:41 DL 08/07/18 13:33 Wound Center Nurse 1 [Ulcer Assessment] # 22 RIGHT 3rd TOE ANTERIOR -Current Size (cm) - Length 0.5 -Current Size (cm) - Width 0.7 -Current Size (cm) - Depth 0.2 -Total Square Cm 0.35 -Photo Taken No -Exudate Amt None Present -Wound Margin Flat & Intact -Granulation Amt Small (1-33%) -Granulation Quality [place] -Necrosis Amt Small (1-33%) -Necrotic Tissue Type Adherent Slough -Structure Exposed N/A -Texture (Maggy-wound Skin Appearance) Localized Edema Scarring -Moisture (Maggy-wound Skin Appearance Dry/Scaly ) -Color (Maggy-wound Skin Appearance) Erythema Rubor -Temperature (Maggy-wound Skin No Abnormality Appearance) (Pt Warm) -Tenderness on Palpation (Maggy-wound No Skin Appearance) -Ulcer Cleansing Rinsed/ Irrigated with Saline -Foul Odor after Cleansing No -Anesthetic Used 4% Lidocaine Solution #21 LEFT PLANTAR FOOT -Current Size (cm) - Length 0.1 -Current Size (cm) - Width 0.1 -Current Size (cm) - Depth 0.1 -Total Square Cm 0.01 -Photo Taken No -Exudate Amt None Present -Wound Margin Thickened -Granulation Amt Large (67-100%) -Granulation Quality Pale [place] -Necrosis Amt None Present (0 %) -Structure Exposed N/A -Texture (Maggy-wound Skin Appearance) Scarring -Moisture (Maggy-wound Skin Appearance Dry/Scaly ) -Color (Maggy-wound Skin Appearance) No Abnormality -Temperature (Maggy-wound Skin No Abnormality Appearance) (Pt Warm) -Tenderness on Palpation (Maggy-wound No Skin Appearance) -Ulcer Cleansing Rinsed/ Irrigated with Saline -Foul Odor after Cleansing No -Anesthetic Used 4% Lidocaine Solution [Edema Assessment] -Right Calf (cm) 37 -Right Ankle (cm) 22 -Left Calf (cm) 36.5 -Left Ankle (cm) 21.7 KAVYA - Nurse 2 - General Ulcer CM Notes Start: 07/17/18 13:37 Freq: Status: Active Protocol: Activity Type Activity Date Activity User E-Sign Co-Sign Detail Recorded Client Recorded Date Recorded By Document 08/07/18 14:06 JOE [id number] 08/07/18 14:07 JOE 08/07/18 14:06 Wound Center Nurse 2 [Procedure/Treatment] # 22 RIGHT 3rd TOE ANTERIOR -Time 14:07 -Correct Patient Yes -Correct Side, Site, Position Yes -Correct Procedure Yes -Procedure Performed Yes -Type of Procedure Debridement -Clinical Debridement Subcutaneous -Post Debridement Size (cm) - Length 0.6 -Post Debridement Size (cm) - Width 0.7 -Post Debridement Size (cm) - Depth 0.2 -Total Square Cm 0.42 -Wound/Ulcer Outcome Not Healed -Ulcer Cleansing Rinsed/ Irrigated with Saline -Foul Odor after Cleansing No -Bioengineered Tissue No -Bleeding Controlled with Pressure -Offloading Yes -Type of Offloading Surgical Shoe -Treatment Response Procedure Tolerated Well #21 LEFT PLANTAR FOOT -Time 14:07 -Correct Patient Yes -Correct Side, Site, Position Yes -Correct Procedure Yes -Procedure Performed Yes -Type of Procedure Debridement -Clinical Debridement Subcutaneous -Post Debridement Size (cm) - Length 0.1 -Post Debridement Size (cm) - Width 0.1 -Post Debridement Size (cm) - Depth 0.1 -Total Square Cm 0.01 -Wound/Ulcer Outcome Not Healed -Ulcer Cleansing Rinsed/ Irrigated with Saline -Foul Odor after Cleansing No -Bioengineered Tissue No -Bleeding Controlled with Pressure -Offloading Yes -Type of Offloading Surgical Shoe -Treatment Response Procedure Tolerated Well [See Physician Procedure note for Specifics] Pain Scale: 0-10 Numeric [Pain] -Is Patient Pain Free? Yes Musculoskeletal: No Tenderness to Palpation of Joints or Extremities, Muscle Wasting, - - Dorsal contraction of lesser toes right. Compartments soft to palpate bilateral foot Neurological: - - Lack of normal epicritic sensation light touch bilateral lower extremities is consistent with neuropathy Psych/Mental Status: Normal Affect, Appropriate Debridement Note Post-Debridement Measurements/Treatment KAVYA - Nurse 2 - General Ulcer CM Notes Start: 07/17/18 13:37 Freq: Status: Active Protocol: Activity Type Activity Date Activity User E-Sign Co-Sign Detail Recorded Client Recorded Date Recorded By Document 07/17/18 14:12 [id number] 07/17/18 14:15 Document 08/07/18 14:06 [id number] 08/07/18 14:07 07/17/18 08/07/18 14:12 14:06 Wound Center Nurse 2 # 22 RIGHT 3rd TOE ANTERIOR -Time 14:13 14:07 -Correct Patient Yes Yes -Correct Side, Site, Position Yes Yes -Correct Procedure Yes Yes -Procedure Performed Yes Yes -Type of Procedure Debridement Debridement -Clinical Debridement Subcutaneous Subcutaneous -Post Debridement Size (cm) - Length 0.6 0.6 -Post Debridement Size (cm) - Width 0.6 0.7 -Post Debridement Size (cm) - Depth 0.3 0.2 -Total Square Cm 0.36 0.42 -Wound/Ulcer Outcome Not Healed Not Healed -Ulcer Cleansing Rinsed/ Rinsed/ Irrigated with Irrigated with Saline Saline -Foul Odor after Cleansing No No -Bioengineered Tissue No No -Bleeding Controlled with Pressure Pressure -Offloading Yes Yes -Type of Offloading Surgical Shoe Surgical Shoe -Treatment Response Procedure Procedure Tolerated Well Tolerated Well #21 LEFT PLANTAR FOOT -Time 14:14 14:07 -Correct Patient Yes Yes -Correct Side, Site, Position Yes Yes -Correct Procedure Yes Yes -Procedure Performed Yes Yes -Type of Procedure Debridement Debridement -Clinical Debridement Subcutaneous Subcutaneous -Post Debridement Size (cm) - Length 0.9 0.1 -Post Debridement Size (cm) - Width 0.6 0.1 -Post Debridement Size (cm) - Depth 0.2 0.1 -Total Square Cm 0.54 0.01 -Wound/Ulcer Outcome Not Healed Not Healed -Ulcer Cleansing Rinsed/ Rinsed/ Irrigated with Irrigated with Saline Saline -Foul Odor after Cleansing No No -Bioengineered Tissue No No -Bleeding Controlled with Pressure Pressure -Offloading Yes Yes -Type of Offloading Surgical Shoe Surgical Shoe -Treatment Response Procedure Procedure Tolerated Well Tolerated Well Pain Scale: 0-10 Numeric Is Patient Pain Free? Yes Yes Wound debrided: dorsal toe Laterality: Right Wound Grade/Stage: grade 2 Type of Debridement: Excisional debridement Anesthesia Used: 5% Lidocaine Gel Depth: in the subcutaneous layer Percentage of wound debrided: 100 Instrument Used: #15 blade Tissue Removed: fibrous, devitalized subcutaneous, biofilm, slough Severity: Fat Layer Exposed Amount of bleeding with debridement: Mild Bleeding Controlled with: Pressure Patient tolerated procedure well - Additional Wound Wound debrided: plantar foot Laterality: Left Wound Grade/Stage: grade 1 Type of Debridement: Excisional debridement Anesthesia Used: 5% Lidocaine Gel Depth: in the subcutaneous layer Percentage of wound debrided: 100 Instrument Used: #15 blade Tissue Removed: fibrous, devitalized subcutaneous, biofilm, slough Severity: Fat Layer Exposed Amount of bleeding with debridement: Mild Bleeding Controlled with: Pressure Patient tolerated procedure: Patient tolerated procedure well Assessment/Plan Active Problems (Last Reviewed 10/15/17 @ 14:22 by Nataly Christian) Skin ulcer of third toe of right foot with fat layer exposed (Chronic) Chronic ulcer of left foot with fat layer exposed (Chronic) dorsal foot Hammer toe of right foot (Acute) PAD (peripheral artery disease) (Chronic) Diabetes mellitus with neuropathy (Chronic) Malnutrition (Chronic) Delayed wound healing (Chronic) Lower extremity edema (Chronic) Assessment: Calvin 2 ulcer right third toe: osteomyelitis has been ruled out. calvin grade 1 ulcer, left plantar now open/healed dorsal foot ulcer today. peripheral vascular disease with recent intervention 2018. diabetes with neuropathy. malnutrition. non compliance history Plan: The patient was seen and examined at the wound center today and was updated on the plan of care. A subcutaneous debridement was performed today to the left and right foot. the previous debrided bone of the right foot was negative for osteomyelitis. The patients wound care will consist of: Applying Lac-Hydrin to the callused areas and the continuation of moistened daily jarred to right third toe DFU and plantar left foot ulcer as well. Serial lab trends and x-rays will be followed throughout the healing process. To keep pressure off the ulcer sites to optimize healing; he has surgical shoes. To continue with nutritional supplementation and proper glycemic control to optimize healing. He was reassured no local signs of infection are noted today. To monitor closely. Instructed to follow-up with PCP and to maintain Endo for tighter glucose control. Vascular studies ordered and pending, patient recently did have intervention in July [address] [place]. Patient will follow up at wound healing center in one week or sooner if needed. Patient is to resume his nutritional supplementation of Glucerna high-protein. Resuming extra-depth diabetic shoes will be considered once his ulcerations are healed. He asked about this again today. I answered all the questions.
== END 2018-08-08 23:59 ==
LOC: WC 13:15
PROVIDERS: Family Provider Family Medicine Geriatric Medicine; PCP Family Medicine Geriatric Medicine; Referring Provider Nurse Practitioner Family; Visit Provider Podiatrist
DX: E11.621 Type 2 diabetes mellitus with foot ulcer (principal); E11.51 Type 2 diabetes mellitus with diabetic peripheral angiopathy without gangrene; E11.42 Type 2 diabetes mellitus with diabetic polyneuropathy; R60.0 Localized edema; L97.512 Non-pressure chronic ulcer of other part of right foot with fat layer exposed; L97.522 Non-pressure chronic ulcer of other part of left foot with fat layer exposed; Z91.19 Patient's noncompliance with other medical treatment and regimen; M20.41 Other hammer toe(s) (acquired), right foot
CPT/HCPCS: 11042

== ENCOUNTER 2018-08-16 14:52 | Inpatient (IN) | payer MEDICARE, MEDICAID, SELFPAY ==
[2018-08-16 14:53] VITALS: BP 121/61; PULSE 55; RESP 16; TEMP 36.7; O2SAT 98; BMI 33.0
--- NOTE | 2018-08-16 16:05 | RAD_ITS ---
STUDY: X-RAY CHEST REASON FOR EXAM: Male, 68 years old. Short of breath TECHNIQUE: AP portable COMPARISON: January 26, 2018 FINDINGS: There is bilateral perihilar interstitial thickening and mild bronchovascular cuffing possibly representing early pulmonary interstitial edema.. There appears to be focal patchy retrocardiac density possibly representing superimposed pneumonic infiltrate. There is blunted left costophrenic sulcus consistent with pleural thickening or tiny effusion. Heart is enlarged. Normal mediastinum and catrina. Normal visualized pulmonary arteries. Normal visualized aortic arch and descending thoracic aorta. 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 Normal visualized ribs, clavicles, and shoulders. There is no demonstrated abnormality of the visualized soft tissue structures of the upper abdomen. RAD/Chest 1 View (Portable) IMPRESSION: Possible mild pulmonary interstitial edema. Cannot exclude coexisting left lower lobe pneumonia Electronically Signed: Laureano Kilgore MD at 17:05 EST , Service support ,
--- NOTE | 2018-08-16 16:06 | EKG12_ITS ---
Test Reason : GENERAL ILLNESS Blood Pressure : / mmHG Vent. Rate : 054 BPM Atrial Rate : 054 BPM P-R Int : 264 ms QRS Dur : 150 ms QT Int : 492 ms P-R-T Axes : 025 099 185 degrees QTc Int : 466 ms Sinus bradycardia with 1st degree A-V block Right bundle branch block Possible Inferior infarct , age undetermined T wave abnormality, consider lateral ischemia Abnormal ECG Confirmed by DARRIAN PELAEZ, LUCÍA ([id number]), newspaper managing editor SONAM BAILON ([id number]) on 08/20/2018 9:17:35 AM Referred By: Fab Shine Confirmed By:LUCÍA COLMENARES MD
[2018-08-16 16:59] VITALS: BP 101/66; PULSE 55; RESP 14; O2SAT 96
[2018-08-16] MEDS: 0.9% Normal Saline 1,000 ML 150 ML IV (17:00)
[2018-08-16 17:23] LABS: Absolute Lymphocyte Count 1.02 X10^3/ul (0.83-4.51); Absolute Neutrophil Count 5.4 X10^3/uL (2.0-7.7); Basophil# 0.04 X10^3/uL; Basophil% 0.5 % (0-1); Eosinophil# 0.15 X10^3/uL; Hematocrit 40.6 % (40-54); Lymphocyte # 1.02 X10^3/ul (4.0); Lymphocyte % 13.9 % (19-41); Mean Corpuscular Hgb 29.5 pg (27.0-32.0); Mean Corpuscular Volume 92.3 fL (80-94); Mean Platelet Vol. 10.2 fl (6.2-12.0); Monocyte# 0.78 X10^3/uL; Monocyte% 10.6 % (0-10); Neutrophil # 5.36 X10^3/uL (2.7-7.7); Neutrophil % 72.9 % (47-70); Platelet Count 275 K/mm3 (150-450); RBC Distribution Width CV 14.7 % (11.6-14.6); RBC Distribution Width SD 49.3 fl (35.1-43.9); White Blood Count 7.4 K/mm3 (4.4-11.0)
[2018-08-16 17:24] LABS: POSITIVE COUNT NO; POSITIVE DIFFERENTIAL NO; POSITIVE MORPHOLOGY NO
[2018-08-16 17:28] LABS: ALB/GLOB Ratio 0.7 RATIO (0.9-2.4); AST(SGOT) 54 U/L (15-37); Alanine Aminotransfer ALT/SGPT 51 U/L (16-61); Albumin, Serum 3.1 g/dL (3.2-5.0); Alkaline Phosphatase 87 U/L (45-117); Anion Gap 11 (5-15); BUN 60 mg/dL (7-18); BUN/Creat Ratio 16.9 RATIO (10-20); Calcium,Total 8.1 mg/dL (8.5-10.1); Chloride 102 mmol/L (98-107); Creatinine, Serum 3.56 mg/dL (0.70-1.30); EST Glomerular Filtration Rate 18 mL/min (>60); Est Glom Filt Rate - Afr Amer 22 mL/min (>60); Estimated Creatinine Clearance 21.74 ml/min; Globulin 4.2 g/dL (2.2-4.2); Glucose 182 mg/dL (74-106); Lipase 246 U/L (73-393); Potassium 4.8 mmol/L (3.5-5.1); Protein, Total 7.3 g/dL (6.4-8.2); Sodium Level 138 mmol/L (136-145)
[2018-08-16 17:43] LABS: Lactic Acid 1.2 mmol/L (0.4-2.0)
--- NOTE | 2018-08-16 18:10 | ED.VISSUMM ---
- ER Visit Summary Date of Service: 08/16/18 Chief Complaint: [Not feeling well and abdominal pain] History of Present Illness: The patient is a 68 M [presents the emergency department complaint of not feeling well for several days. Patient states that he has had a lot of abdominal bloating and discomfort for quite some time and he was actually seen by his primary care physician earlier in the week and had a CAT scan of his abdomen pelvis done about 5 days ago as well as some blood work that was sent off. Patient is not sure about the results. He denies any fever. Denies any chest pain. He does state that he had nausea and is also had diarrhea for the last 5 weeks off and on. Patient denies any blood in his stool. Patient also had elevated blood sugars. Physical Examination: [HEENT-PERRLA, EOMI. Cranial nerves II through XII grossly intact. TMs clear. Mucous membranes moist. No adenopathy. Cardiovascular-regular rate and rhythm without murmur or ectopy Lungs-clear to auscultation, chest wall stable without crepitus or subcu emphysema Abdomen-normoactive bowel sounds, soft, fused tenderness. No rebound or rigidity, no peritoneal signs. Patient does have edema of the skin of the abdomen. Extremities-intact ?4, normal range of motion, normal pulses, atraumatic. Patient has +2 edema both lower extremities in the legs are wrapped with Ronak wraps.] Test Results: [EKG obtained showed sinus rhythm with a ventricular rate of 54 bpm with right bundle branch block and some nonspecific ST changes. CBC with differential count 7.4, hemoglobin 13, hematocrit 41, placed 275. Chemistries unremarkable. BUN was 16 creatinine 3.56. Lipase was 246. Troponin was 0.019. Chest x-ray showed mild pulmonary edema.] I did review patient's CT scan results from August 12. That report showed bladder wall thickening which may be seen with cystitis. Patient also had stranding in the subcutaneous soft tissue of the anterior abdominal wall which may represent inflammation/edema or cellulitis. Emergency Department Course and Treatment: [] Treatment Plan: [Admit] Disposition: [Admit] Impression: [Acute kidney injury Pulmonary edema Trent pain] This note was generated with [employer] dictation software. It may contain incorrect words, spelling, and punctuation that were not noted in review of the chart prior to signing ED Disposition - Plan for ED Patient: Referrals: Johnathan Batres Chi, MD [Primary Care Provider] -
--- NOTE | 2018-08-16 18:15 | ED.DCSUM_ITS ---
- ER Visit Summary Date of Service: 08/16/18 Chief Complaint: [Not feeling well and abdominal pain] History of Present Illness: The patient is a 68 M [presents the emergency department complaint of not feeling well for several days. Patient states that he has had a lot of abdominal bloating and discomfort for quite some time and he was actually seen by his primary care physician earlier in the week and had a CAT scan of his abdomen pelvis done about 5 days ago as well as some blood work that was sent off. Patient is not sure about the results. He denies any fever. Denies any chest pain. He does state that he had nausea and is also had diarrhea for the last 5 weeks off and on. Patient denies any blood in his stool. Patient also had elevated blood sugars. Physical Examination: [HEENT-PERRLA, EOMI. Cranial nerves II through XII grossly intact. TMs clear. Mucous membranes moist. No adenopathy. Cardiovascular-regular rate and rhythm without murmur or ectopy Lungs-clear to auscultation, chest wall stable without crepitus or subcu emphysema Abdomen-normoactive bowel sounds, soft, fused tenderness. No rebound or rigidity, no peritoneal signs. Patient does have edema of the skin of the abdomen. Extremities-intact ?4, normal range of motion, normal pulses, atraumatic. Patient has +2 edema both lower extremities in the legs are wrapped with Ronak wraps.] Test Results: [EKG obtained showed sinus rhythm with a ventricular rate of 54 bp m with right bundle branch block and some nonspecific ST changes. CBC with differential count 7.4, hemoglobin 13, hematocrit 41, placed 275. Chemistries unremarkable. BUN was 16 creatinine 3.56. Lipase was 246. Troponin was 0.019. Chest x-ray showed mild pulmonary edema.] I did review patient's CT scan results from August 12. That report showed bladder wall thickening which may be seen with cystitis. Patient also had stranding in the subcutaneous soft tissue of the anterior abdominal wall which may represent inflammation/edema or cellulitis. Emergency Department Course and Treatment: [] Treatment Plan: [Admit] Disposition: [Admit] Impression: [Acute kidney injury Pulmonary edema Trent pain] This note was generated with [employer] software. It may contain incorrect words, spelling, and punctuation that were not noted in review of the chart prior to signing ED Disposition - Plan for ED Patient: Referrals: Johnathan Batres Chi, MD [Primary Care Provider] -
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
[2018-08-16 19:22] VITALS: BMI 35.6
[2018-08-16 19:25] VITALS: BP 127/57; PULSE 59; RESP 16; TEMP 36.4; O2SAT 98
--- NOTE | 2018-08-16 19:32 | US_ITS ---
STUDY: RENAL ULTRASOUND - COMPLETE REASON FOR EXAM: Male, 68 years old. Renal insufficiency TECHNIQUE: Ultrasound evaluation of the kidneys was performed with real-time and static garcia-scale imaging. COMPARISON: CT dated 01/16/2018. FINDINGS: RIGHT KIDNEY: Normal location of the right kidney, which is normal in size. The right kidney measures 12.5 cm. There is a normal cortex of the right kidney. There is no right renal mass or cyst. There are no right renal calculi. There is no right hydronephrosis. DISTAL RIGHT URETER: There is non-visualization of the distal right ureter. There is no demonstrated right ureterovesical junction calculus. There is a visualized right ureteral jet. LEFT KIDNEY: Normal location of the left kidney, which is normal in size. The left kidney measures 12.2 cm. There is a normal cortex of the left kidney. There is a subcentimeter cyst in the left kidney. There are no left renal calculi. There is no left hydronephrosis. DISTAL LEFT URETER: There is non-visualization of the distal left ureter. There is no demonstrated left ureterovesical junction calculus. There is a visualized left ureteral jet. BLADDER: The urinary bladder is partially distended and appears unremarkable. US/Kidney and Bladder IMPRESSION: Subcentimeter cyst in the left kidney. Otherwise, unremarkable renal ultrasound. Electronically Signed: Steven Vizcarra, at 21:35 EST Tel , Service support ,
[2018-08-16 19:36] VITALS: BMI 35.6
[2018-08-16] MEDS: 0.9% Normal Saline 1,000 ML 100 ML IV (20:10)
[2018-08-16 22:15] VITALS: BP 131/61; PULSE 62; RESP 16; TEMP 36.6; O2SAT 95
[2018-08-16 22:16] LABS: Bedside Glucose 215 mg/dL (70-110)
[2018-08-16 22:17] VITALS: PULSE 62
[2018-08-16] MEDS: Baclofen 10 MG Tablet PO (22:17)
[2018-08-16] MEDS: Metoprolol Tartrate 100 MG Tablet PO (22:17)
[2018-08-16] MEDS: Meclizine HCl 25 MG Tablet PO (22:18)
[2018-08-16] MEDS: Atorvastatin Calcium 80 MG Tablet PO (22:18)
[2018-08-16] MEDS: Heparin Injection (Vial) 5,000 UNIT/ML VIAL 5000 UNIT SC (22:19)
[2018-08-16 22:38] LABS: Bacteria 0 SEEN /hpf (None Seen); Mucous, Urine 0 SEEN /hpf (<or=2+); Red Blood Cells-Urine 0 SEEN /hpf (0-5); Squamous Epithelial Cells - UA 0 SEEN /hpf (0-5)
[2018-08-16 22:41] LABS: Color, Urine Yellow (Yellow); Glucose, Dipstick 1000 mg/dl (Normal); Ketone-Dipstick Negative (Negative); Leukocyte Esterase-Dipstick 25 /ul (Negative); Nitrite-Dipstick Negative (Negative); Occult Blood-Urine Negative /ul (Negative); Protein-Dipstick 15 mg/dl (Negative); Specific Gravity, Urine 1.015 (1.002-1.030); Urine Bilirubin Dipstick Negative (Negative); Urine Clarity Clear (Clear); Urine Urobilinogen Normal (Normal)
[2018-08-16 22:46] LABS: Urea Nitrogen, Urine 508 mg/dL (NO RANGE EST.)
[2018-08-16 22:48] LABS: White Blood Cells 0-5 SEEN /hpf (0-5)
[2018-08-17 01:07] LABS: Urine Sodium 9 mmol/L (Not Establ.)
[2018-08-17 01:58] VITALS: BP 135/59; PULSE 50; RESP 18; TEMP 36.8; O2SAT 96
[2018-08-17] MEDS: Baclofen 10 MG Tablet PO ×3 (05:23→22:01)
[2018-08-17] MEDS: Levothyroxine 100 MCG Tablet 200 MCG PO (05:23)
[2018-08-17] MEDS: Meclizine HCl 25 MG Tablet PO ×3 (05:23→22:01)
[2018-08-17 08:31] VITALS: BP 116/64; PULSE 58; RESP 18; TEMP 36.6; O2SAT 93
[2018-08-17] MEDS: Aspirin E.C. 81 MG Tablet PO (08:36)
[2018-08-17] MEDS: Iron Polysaccharide Complex 150 MG CAPSULE PO (08:36)
[2018-08-17] MEDS: 0.9% NaCl Peripheral Flush Adult/Peds IV (08:47)
[2018-08-17] MEDS: Ondansetron 4 MG/2 ML Vial IV (08:47)
[2018-08-17 09:06] LABS: Bedside Glucose 138 mg/dL (70-110)
[2018-08-17 09:10] LABS: Albumin, Serum 2.8 g/dL (3.2-5.0); BUN 57 mg/dL (7-18); BUN/Creat Ratio 18.6 RATIO (10-20); Chloride 105 mmol/L (98-107); Creatinine, Serum 3.07 mg/dL (0.70-1.30); EST Glomerular Filtration Rate 22 mL/min (>60); Est Glom Filt Rate - Afr Amer 26 mL/min (>60); Estimated Creatinine Clearance 25.21 ml/min; Glucose 148 mg/dL (74-106); Phosphorus 5.8 mg/dL (2.5-4.9); Potassium 4.3 mmol/L (3.5-5.1); Sodium Level 139 mmol/L (136-145)
--- NOTE | 2018-08-17 09:14 | RAD_ITS ---
STUDY: X-RAY - ABDOMEN/PELVIS REASON FOR EXAM: Male, 68 years old. Abdominal distention TECHNIQUE: Multiple supine views of the abdomen and pelvis COMPARISON: CT dated 01/16/2018 FINDINGS: There is no bowel obstruction. There is air and stool to the level of the rectum. There are cholecystectomy clips in the right upper quadrant. There are mild degenerative changes noted in the spine. RAD/Abdomen Single View (Portable) IMPRESSION: No bowel obstruction. Electronically Signed: Steven Vizcarra, at 12:55 EST Tel , Service support ,
[2018-08-17 10:11] LABS: BNP,B-Type NATRIURETIC PEPTIDE 400.9 pg/mL (0-100)
--- NOTE | 2018-08-17 10:13 | ECHOD_ITS ---
Reason For Study: CHF Procedure This was a 2D Doppler, Color Flow transthoracic echocardiogram. Did not use Definity due to increased PAP. The study was technically difficult. Exam performed portable in patient room. Left Ventricle Normal LV size. Left ventricular systolic function is normal. The estimated ejection fraction is 60 %. Transmitral and pulmonary venous doppler flow suggestive of impaired relaxation of left ventricle. Stage 2 diastolic dysfunction. No regional wall motion abnormalities noted. Right Ventricle Normal RV size. Normal systolic function. Atria Normal left atrium. Normal right atrium. Mitral Valve Normal mitral valve. Tricuspid Valve Normal tricuspid valve. Moderate (2+) tricuspid valve insufficiency. Pulmonary artery systolic pressure is 54 mmHg. Moderate pulmonary hypertension. Aortic Valve The aortic valve is not well visualized. Pulmonic Valve The pulmonic valve is not well visualized. Great Vessels Normal aortic root. The pulmonary artery is normal size. Pericardium/Pleural No pericardial effusion. MMode/2D Measurements & Calculations LVIDd: 4.5 cm IVSd: 1.3 cm Ao root diam: 3.6 cm LVIDs: 2.8 cm LVPWd: 1.4 cm FS: 37.8 % LAV(MOD-bp): 49.9 ml LA A4 area: 18.2 cm2 LA dimension(2D): 4.4 cm LAV(MOD-bp) Indexed: 22.0 ml/m2 LAV(MOD-sp2): 49.6 ml LAV(MOD-sp4): 48.5 ml RA A4 area: 15.2 cm2 Doppler Measurements & Calculations MV E max emeka: 118.1 cm/sec Lat Peak E' Emeka: 3.5 cm/sec Med Peak E' Emeka: 4.9 cm/sec MV A max emeka: 65.3 cm/sec E/E' lat: 33.3 E/E' med: 24.1 MV E/A: 1.8 Ao V2 max: 126.2 cm/sec LV V1 max: 111.4 cm/sec PA V2 max: 120.0 cm/sec Ao max P.4 mmHg LV V1 max P.0 mmHg Ao V2 mean: 83.3 cm/sec Ao mean P.1 mmHg Ao V2 VTI: 28.9 cm TR max emeka: 353.7 cm/sec TR max P.1 mmHg Interpretation Summary Normal LV size. Left ventricular systolic function is normal. The estimated ejection fraction is 60 %. Stage 2 diastolic dysfunction. Pulmonary artery systolic pressure is 54 mmHg. Moderate pulmonary hypertension. Ordering Physician: Juan Chaudhry Performed By: Janiya Fleming, CLAUDETTE, RVT
--- NOTE | 2018-08-17 10:13 | PCM.CONS.R ---
Consultation - Renal 08/17/18 PCP/ Referring MD: Requesting physician: [] Primary care physician: Johnathan Batres MD Reason for Consultation:: GENE on CKD stage 3. - History of Present Illness History of Present Illness: The patient is a 68 year old M last seen by me in the office in 2016 with CKD stage III due to diabetes and hypertension presents with increased abdominal distention, nausea and vomiting for a day without hematemesis and persistent diarrhea. He describes his diarrhea as being loose and watery without hematochezia or melena. This is been going on for several months off and on according to the patient. He was referred to general surgery by his PCP for a colonoscopy. He had a CT of the abdomen done at [facility] on August 12 with iv contrast ordered by Dr. Chamorro. Results were reviewed and discussed with primary care team. Serum creatinine was 1.38 on 08/12/18. Creatinine on admission was 3.56 improved to 3.07 today after patient received IV fluids. Lasix was discontinued on admission. He complained of lightheadedness and dizziness without syncope or fall at home. His baseline creatinine was 1.25 on July 08, 2018. He remained on Lasix 80 mg twice a day for chronic leg edema. He denied any chest pain. He did have a slight cough with clear phlegm. He denied any fever or chills. He felt like he was suffocating with supine position due to his increased abdominal distention. He has been sleeping in a recliner with his legs down. He was able to tolerate his breakfast this morning without nausea or vomiting. He denies any chest pain or shortness of breath. He has chronic lower extremity edema. Echocardiogram from 2015 showed normal LV function. - Allergies Allergies: Allergies adhesive Allergy (Verified 08/16/18 14:57) SKIN GETS PULLED OFF SKIN GETS PULLED OFF latex Allergy (Verified 08/16/18 14:57) Hives - Current Medications Current Medications: Current Medications Acetaminophen (Tylenol) 650 mg PO Q6H PRN PRN PRN Reason: Mild Pain (1-3)/Temp > 100.7 F Aspirin (Ecotrin) 81 mg PO DAILY@0800 [facility] Last Admin: 08/17/18 08:36 Dose: 81 mg Atorvastatin Calcium (Lipitor) 80 mg PO QHS [facility] Last Admin: 08/16/18 22:18 Dose: 80 mg Baclofen (Lioresal) 10 mg PO TID [facility] Last Admin: 08/17/18 05:23 Dose: 10 mg Clopidogrel Bisulfate (Plavix) 75 mg PO DAILY [facility] Dextrose (D50w Syringe) 0 gm IV X1 PRN; Protocol PRN Reason: Hypoglycemia Fluticasone Propionate (Flonase Nasal [place]) 1 spray NASAL DAILY [facility] Glucagon () 1 mg IM .X1 PRN PRN Reason: Hypoglycemia Heparin Sodium (Porcine) (Heparin Na) 5,000 unit SC Q12 [facility] Last Admin: 08/16/18 22:19 Dose: 5,000 unit Sodium Chloride () 1,000 mls @ 75 mls/hr IV .[id number] [facility] Insulin Glargine (Lantus (Bkc)) 60 units SC BID [facility] Last Admin: 08/17/18 08:53 Dose: 60 u Insulin Human Lispro (Humalog Kwikpen (Bkc)) 30 unit SC 0800,1200,1700 [facility] Last Admin: 08/17/18 08:52 Dose: Not Given Insulin Human Lispro (Humalog Kwikpen (Bkc)) 0 unit SQ TIDAC [facility]; Protocol Last Admin: 08/17/18 08:35 Dose: Not Given Levothyroxine Sodium (Synthroid) 200 mcg PO DAILY@0600 [facility] Last Admin: 08/17/18 05:23 Dose: 200 mcg Linagliptin (Tradjenta) 5 mg PO DAILY [facility] Magnesium Hydroxide (Milk Of Magnesia) 30 ml PO DAILY PRN PRN PRN Reason: Constipation Meclizine HCl (Antivert) 25 mg PO TID [facility] Last Admin: 08/17/18 05:23 Dose: 25 mg Metoprolol Tartrate (Lopressor (Beta Adonis)) 100 mg PO BID [facility] Last Admin: 08/16/18 22:17 Dose: 100 mg Montelukast Sodium (Singulair) 10 mg PO DAILY [facility] Ondansetron HCl (Zofran) 4 mg IV Q8H PRN PRN PRN Reason: NAUSEA Last Admin: 08/17/18 08:47 Dose: 4 mg Pantoprazole Sodium (Protonix) 20 mg PO DAILY [facility] Pioglitazone HCl (Actos) 30 mg PO DAILY [facility] Polyethylene Glycol (Miralax) 17 gm PO DAILY [facility] Polysaccharide Iron [facility] (Ferrex 150) [facility] Last Admin: 08/17/18 08:36 Dose: 150 mg Sodium Chloride () 5 - 15 ml IV UD PRN PRN Reason: SALINE FLUSH Last Admin: 08/17/18 08:47 Dose: 10 ml - Past Medical History Past Medical History (Chronic Problems): Chronic Problems (Last Reviewed 08/16/18 @ 19:07 by Abran Garcia DO) Blister of left leg (Chronic) Subungual hematoma of toe of right foot (Chronic) Skin ulcer of third toe of right foot with fat layer exposed (Chronic) 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) Diabetes mellitus (Chronic) Chronic ulcer of left foot with fat layer exposed (Chronic) dorsal foot Non-pressure chronic ulcer of other part of left foot with fat layer exposed (Chronic) dorsal left medial foot Non-pressure chronic ulcer of other part of right foot with fat layer exposed (Chronic) PAD (peripheral artery disease) (Chronic) Diabetes mellitus with neuropathy (Chronic) CAD (coronary artery disease) (Chronic) Malnutrition (Chronic) Delayed wound healing (Chronic) Lower extremity edema (Chronic) Ulcer of right foot with fat layer exposed (Chronic) Hypertension (Chronic) Hyperlipidemia (Chronic) Hypothyroidism (Chronic) Coronary artery disease (Chronic) Sleep apnea (Chronic) Chronic kidney disease (Chronic) PAOD (peripheral arterial occlusive disease) (Chronic) GERD (gastroesophageal reflux disease) (Chronic) Muscle spasm (Chronic) Osteomyelitis of left foot (Chronic) Type 2 diabetes mellitus with diabetic polyneuropathy (Chronic) Pulmonary hypertension (Chronic) Obstructive sleep apnea (Chronic) Morbid obesity (Chronic) Non compliance with medical treatment (Chronic) Diabetic foot ulcers (Chronic) Aortocoronary bypass status (Chronic) Type II diabetes mellitus, uncontrolled (Chronic) History of esophageal reflux (Chronic) History of hyperlipidemia (Chronic) History of hypertension (Chronic) History of hypothyroidism (Chronic) Macular infarction (Chronic) Peripheral vascular disease (Chronic) - Past Surgical History Surgical History: angioplasty, cholecystectomy, coronary bypass surgery, - - Social History Smoking Status: Never smoker Alcohol: None Drugs: None - Family History Paternal Family History: Family History (Last Reviewed 08/16/18 @ 19:08 by Abran Garcia DO) Grandfather Diabetes Heart disease Hypertension High blood cholesterol CVA (cerebral vascular accident) Son Thyroid disorder History Items: No pertinent history Maternal Family History: Family History (Last Reviewed 08/16/18 @ 19:08 by Abran Garcia DO) Grandfather Diabetes Heart disease Hypertension High blood cholesterol CVA (cerebral vascular accident) Son Thyroid disorder History Items: - Review of Systems Constitutional: Reports: Weakness, - - Lightheadedness. Denies: Anorexia, Chills, Fever Eyes: Denies: Vision Change Cardiovascular: Reports: Edema - Chronic. Denies: Chest Pain, Palpitations, Syncope Respiratory: Reports: Cough. Denies: Shortness of Breath, Sputum production, Wheezing Gastrointestinal: Reports: Diarrhea - Watery, loose 2-5 times a day past several months, Nausea, Vomiting. Denies: Abdominal Pain, Constipation, Hematemesis, Hematochezia, Melena Genitourinary: Denies: Dysuria, Frequency, Hematuria, Urgency Musculoskeletal: Reports: - - Chronic leg swelling, no NSAID use Skin: Denies: Rash Neurological: Reports: - - Lightheaded. Denies: Focal weakness, Tremor, Seizures Hematologic/ Lymphatic: Reports: Anemia Patient Problems: Active and Suspected Problems (Last Reviewed 08/16/18 @ 19:07 by Abran Garcia DO) Anasarca (Acute) GENE (acute kidney injury) (Acute) - Physical Exam General: Alert, Oriented x3, Cooperative, No apparent distress HEENT: PERRLA, EOMI Oral: Dry Mucosa Neck: Supple Lungs: Clear to auscultation Cardiovascular: Regular rate, No rub noted Abdomen: Bowel Sounds Present, Distended, Obese, Tender - Epigastric region Extremities: Edema - Chronic bilateral lower extremity edema Skin: No rashes Musculoskeletal: No Muscle Wasting, - - Generalized weakness Neurological: Cranial nerves II-XII grossly intact, - - Slow gait Psych/Mental Status: Normal Affect, Appropriate, Alert and oriented to time, place, person, mood and affect Vital Signs Temp Pulse Resp BP Pulse Ox 97.8 F 58 L 18 116/64 93 08/17/18 08:31 08/17/18 08:31 08/17/18 08:31 08/17/18 08:31 08/17/18 08:31 Oxygen Delivery Method Room Air Weight: 115.802 kg Body Mass Index (BMI) 35.6 Finger Stick Blood Glucose 164 Intake and Output for Last 24 Hours 08/15/18 08/16/18 08/17/18 23:59 23:59 23:59 Intake Total 943 / 943 1033 / 1033 Balance 943 / 943 1033 / 1033 Laboratory Tests Past 24 Hrs 08/16/18 08/16/18 08/16/18 17:00 17:00 17:08 WBC 7.4 RBC 4.40 L Hgb 13.0 Hct 40.6 MCV 92.3 MCH 29.5 MCHC 32.0 RDW 14.7 H RDW Differential 49.3 H Plt Count 275 MPV 10.2 Immature Gran % (Auto) 0.100 Neut % (Auto) 72.9 H Lymph % (Auto) 13.9 L [place] % (Auto) 10.6 H Eos % (Auto) 2.0 Baso % (Auto) 0.5 Absolute Neuts (auto) 5.4 Absolute Lymphs (auto) 1.02 Total Counted Not Reportable Eos Smear Total Cells Sodium 138 Potassium 4.8 Chloride 102 Carbon Dioxide 25.0 Anion Gap 11 BUN 60 H Creatinine 3.56 H Estim Creat Clear Calc 21.74 Est GFR (MDRD) Af Amer 22 L Est GFR (MDRD) Non-Af 18 L BUN/Creatinine Ratio 16.9 Glucose 182 H Lactic Acid 1.2 Calcium 8.1 L Phosphorus Total Bilirubin 0.50 AST 54 H ALT 51 Alkaline Phosphatase 87 Troponin I 0.019 B-Natriuretic Peptide Total Protein 7.3 Albumin 3.1 L Globulin 4.2 Albumin/Globulin Ratio 0.7 L Lipase 246 Urine Color Urine Clarity Urine pH Ur Specific [place] Urine Protein Urine Glucose (UA) Urine Ketones Urine Occult Blood Urine Nitrite Urine Bilirubin Urine Urobilinogen Ur Leukocyte Esterase Urine RBC Urine WBC Ur Squamous Epith Cells Urine Bacteria Urine Mucus U Random Total Protein Ur Random Sodium Urine Creatinine Urine Urea Nitrogen 08/16/18 08/16/18 08/16/18 22:30 22:30 22:30 WBC RBC Hgb Hct MCV MCH MCHC RDW RDW Differential Plt Count MPV Immature Gran % (Auto) Neut % (Auto) Lymph % (Auto) [place] % (Auto) Eos % (Auto) Baso % (Auto) Absolute Neuts (auto) Absolute Lymphs (auto) Total Counted Eos Smear Total Cells Pending Sodium Potassium Chloride Carbon Dioxide Anion Gap BUN Creatinine Estim Creat Clear Calc Est GFR (MDRD) Af Amer Est GFR (MDRD) Non-Af BUN/Creatinine Ratio Glucose Lactic Acid Calcium Phosphorus Total Bilirubin AST ALT Alkaline Phosphatase Troponin I B-Natriuretic Peptide Total Protein Albumin Globulin Albumin/Globulin Ratio Lipase Urine Color Urine Clarity Urine pH Ur Specific [place] Urine Protein Urine Glucose (UA) Urine Ketones Urine Occult Blood Urine Nitrite Urine Bilirubin Urine Urobilinogen Ur Leukocyte Esterase Urine RBC Urine WBC Ur Squamous Epith Cells Urine Bacteria Urine Mucus U Random Total Protein Ur Random Sodium Urine Creatinine 109.00 Urine Urea Nitrogen 508 08/16/18 08/16/18 08/16/18 22:30 22:30 22:30 WBC RBC Hgb Hct MCV MCH MCHC RDW RDW Differential Plt Count MPV Immature Gran % (Auto) Neut % (Auto) Lymph % (Auto) [place] % (Auto) Eos % (Auto) Baso % (Auto) Absolute Neuts (auto) Absolute Lymphs (auto) Total Counted Eos Smear Total Cells Sodium Potassium Chloride Carbon Dioxide Anion Gap BUN Creatinine Estim Creat Clear Calc Est GFR (MDRD) Af Amer Est GFR (MDRD) Non-Af BUN/Creatinine Ratio Glucose Lactic Acid Calcium Phosphorus Total Bilirubin AST ALT Alkaline Phosphatase Troponin I B-Natriuretic Peptide Total Protein Albumin Globulin Albumin/Globulin Ratio Lipase Urine Color Yellow Urine Clarity Clear Urine pH 5.0 Ur Specific [place] 1.015 Urine Protein 15 H Urine Glucose (UA) 1000 H Urine Ketones Negative Urine Occult Blood Negative Urine Nitrite Negative Urine Bilirubin Negative Urine Urobilinogen Normal Ur Leukocyte Esterase 25 H Urine RBC 0 SEEN Urine WBC 0-5 SEEN Ur Squamous Epith Cells 0 SEEN Urine Bacteria 0 SEEN Urine Mucus 0 SEEN U Random Total Protein 22.0 H Ur Random Sodium 9 Urine Creatinine Urine Urea Nitrogen 08/17/18 08/17/18 08:15 09:24 WBC RBC Hgb Hct MCV MCH MCHC RDW RDW Differential Plt Count MPV Immature Gran % (Auto) Neut % (Auto) Lymph % (Auto) [place] % (Auto) Eos % (Auto) Baso % (Auto) Absolute Neuts (auto) Absolute Lymphs (auto) Total Counted Eos Smear Total Cells Sodium 139 Potassium 4.3 Chloride 105 Carbon Dioxide 23.0 Anion Gap BUN 57 H Creatinine 3.07 H Estim Creat Clear Calc 25.21 Est GFR (MDRD) Af Amer 26 L Est GFR (MDRD) Non-Af 22 L BUN/Creatinine Ratio 18.6 Glucose 148 H Lactic Acid Calcium 8.0 L Phosphorus 5.8 H Total Bilirubin AST ALT Alkaline Phosphatase Troponin I B-Natriuretic Peptide 400.9 H Total Protein Albumin 2.8 L Globulin Albumin/Globulin Ratio Lipase Urine Color Urine Clarity Urine pH Ur Specific [place] Urine Protein Urine Glucose (UA) Urine Ketones Urine Occult Blood Urine Nitrite Urine Bilirubin Urine Urobilinogen Ur Leukocyte Esterase Urine RBC Urine WBC Ur Squamous Epith Cells Urine Bacteria Urine Mucus U Random Total Protein Ur Random Sodium Urine Creatinine Urine Urea Nitrogen POC Glucose 08/17/18 08/16/18 08:28 22:07 POC Glucose 138 H 215 H Clinical Impression(s) from Imaging Studies Chest X-Ray 08/16/18 16:05 IMPRESSION: Possible mild pulmonary interstitial edema. Cannot exclude coexisting left lower lobe pneumonia Electronically Signed: Laureano Kilgore MD at 17:05 EST , Service support , Renal Ultrasound 08/16/18 19:32 IMPRESSION: Subcentimeter cyst in the left kidney. Otherwise, unremarkable renal ultrasound. Electronically Signed: Steven Vizcarra at 21:35 EST Tel , Service support , Assessment/Plan All Active Problems (Last Reviewed 08/16/18 @ 19:07 by Abran Garcia DO) Diabetic ulcer of toe of right foot associated with diabetes mellitus due to underlying condition (Acute) 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 Acute on chronic kidney disease stage III. Acute event likely due to IV contrast exposure with CT of the abdomen and pelvis on August 12. Creatinine 1.38 at that time. FEna less than 1% consistent with contrast nephropathy. He may also have prerenal event from dehydration due to chronic diarrhea, diuretics, nausea vomiting for a day. He denied any NSAID use. Baseline creatinine 1.25 from July 08, 2018. Underlying diabetic nephropathy with trace proteinuria. Urine protein creatinine ratio 200 mg/gram creatinine. Creatinine elevated 3.56 on admission improved to 3.07 with IV hydration and discontinuation of Lasix. Avoid nephrotoxins such as IV contrast, NSAIDs. Hold on vasomotor medications. The ultrasound essentially unremarkable. No hydronephrosis. Continue with gentle hydration for another day. 2. Chronic lower extremity edema with history of CAD, morbid obesity. Suggest echocardiogram to evaluate for pulmonary hypertension and LV function. 3. Hypertension with stable blood pressure 4. Diabetes mellitus type II elevated blood sugars primary service management. 5. Anemia hemoglobin stable on oral iron. 6. Morbid obesity 7. Fatty liver disease 8. Abdominal distention with epigastric discomfort, chronic diarrhea. Patient scheduled for colonoscopy on August [address] Craig as outpatient. Patient with abdominal distention from obesity at baseline. KUB ordered by primary service pending. Discussed with primary team
--- NOTE | 2018-08-17 10:21 | CON.PCM_ITS ---
Consultation - Renal 08/17/18 PCP/ Referring MD: Requesting physician: [] Primary care physician: Johnathan Batres MD Reason for Consultation:: GENE on CKD stage 3. - History of Present Illness History of Present Illness: The patient is a 68 year old M last seen by me in the office in 2016 with CKD stage III due to diabetes and hypertension presents with increased abdominal distention, nausea and vomiting for a day without hematemesis and persistent diarrhea. He describes his diarrhea as being loose and watery without hematochezia or melena. This is been going on for several months off and on according to the patient. He was referred to general surgery by his PCP for a colonoscopy. He had a CT of the abdomen done at [facility] on August 12 with iv contrast ordered by Dr. Chamorro. Results were reviewed and discussed with primary care team. Serum creatinine was 1.38 on 08/12/18. Creatinine on admission was 3.56 improved to 3.07 today after patient received IV fluids. Lasix was discontinued on admission. He complained of lightheadedness and dizziness without syncope or fall at home. His baseline creatinine was 1.25 on July 08, 2018. He remained on Lasix 80 mg twice a day for chronic leg edema. He denied any chest pain. He did have a slight cough with clear phlegm. He denied any fever or chills. He felt like he was suffocating with supine position due to his increased abdominal distention. He has been sleeping in a recliner with his legs down. He was able to tolerate his breakfast this morning without nausea or vomiting. He denies any chest pain or shortness of breath. He has chronic lower extremity edema. Echocardiogram from 2015 showed normal LV function. - Allergies Allergies: Allergies adhesive Allergy (Verified 08/16/18 14:57) SKIN GETS PULLED OFF SKIN GETS PULLED OFF latex Allergy (Verified 08/16/18 14:57) Hives - Current Medications Current Medications: Current Medications Acetaminophen (Tylenol) 650 mg PO Q6H PRN PRN PRN Reason: Mild Pain (1-3)/Temp > 100.7 F Aspirin (Ecotrin) 81 mg PO DAILY@0800 [facility] Last Admin: 08/17/18 08:36 Dose: 81 mg Atorvastatin Calcium (Lipitor) 80 mg PO QHS [facility] Last Admin: 08/16/18 22:18 Dose: 80 mg Baclofen (Lioresal) 10 mg PO TID [facility] Last Admin: 08/17/18 05:23 Dose: 10 mg Clopidogrel Bisulfate (Plavix) 75 mg PO DAILY [facility] Dextrose (D50w Syringe) 0 gm IV X1 PRN; Protocol PRN Reason: Hypoglycemia Fluticasone Propionate (Flonase Nasal [place]) 1 spray NASAL DAILY [facility] Glucagon () 1 mg IM .X1 PRN PRN Reason: Hypoglycemia Heparin Sodium (Porcine) (Heparin Na) 5,000 unit SC Q12 [facility] Last Admin: 08/16/18 22:19 Dose: 5,000 unit Sodium Chloride () 1,000 mls @ 75 mls/hr IV .[id number] [facility] Insulin Glargine (Lantus (Bkc)) 60 units SC BID [facility] Last Admin: 08/17/18 08:53 Dose: 60 u Insulin Human Lispro (Humalog Kwikpen (Bkc)) 30 unit SC 0800,1200,1700 [facility] Last Admin: 08/17/18 08:52 Dose: Not Given Insulin Human Lispro (Humalog Kwikpen (Bkc)) 0 unit SQ TIDAC [facility]; Protocol Last Admin: 08/17/18 08:35 Dose: Not Given Levothyroxine Sodium (Synthroid) 200 mcg PO DAILY@0600 [facility] Last Admin: 08/17/18 05:23 Dose: 200 mcg Linagliptin (Tradjenta) 5 mg PO DAILY [facility] Magnesium Hydroxide (Milk Of Magnesia) 30 ml PO DAILY PRN PRN PRN Reason: Constipation Meclizine HCl (Antivert) 25 mg PO TID [facility] Last Admin: 08/17/18 05:23 Dose: 25 mg Metoprolol Tartrate (Lopressor (Beta Adonis)) 100 mg PO BID [facility] Last Admin: 08/16/18 22:17 Dose: 100 mg Montelukast Sodium (Singulair) 10 mg PO DAILY [facility] Ondansetron HCl (Zofran) 4 mg IV Q8H PRN PRN PRN Reason: NAUSEA Last Admin: 08/17/18 08:47 Dose: 4 mg Pantoprazole Sodium (Protonix) 20 mg PO DAILY [facility] Pioglitazone HCl (Actos) 30 mg PO DAILY [facility] Polyethylene Glycol (Miralax) 17 gm PO DAILY [facility] Polysaccharide Iron [facility] (Ferrex 150) [facility] Last Admin: 08/17/18 08:36 Dose: 150 mg Sodium Chloride () 5 - 15 ml IV UD PRN PRN Reason: SALINE FLUSH Last Admin: 08/17/18 08:47 Dose: 10 ml - Past Medical History Past Medical History (Chronic Problems): Chronic Problems (Last Reviewed 08/16/18 @ 19:07 by Abran Garcia DO) Blister of left leg (Chronic) Subungual hematoma of toe of right foot (Chronic) Skin ulcer of third toe of right foot with fat layer exposed (Chronic) 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) Diabetes mellitus (Chronic) Chronic ulcer of left foot with fat layer exposed (Chronic) dorsal foot Non-pressure chronic ulcer of other part of left foot with fat layer exposed (Chronic) dorsal left medial foot Non-pressure chronic ulcer of other part of right foot with fat layer exposed (Chronic) PAD (peripheral artery disease) (Chronic) Diabetes mellitus with neuropathy (Chronic) CAD (coronary artery disease) (Chronic) Malnutrition (Chronic) Delayed wound healing (Chronic) Lower extremity edema (Chronic) Ulcer of right foot with fat layer exposed (Chronic) Hypertension (Chronic) Hyperlipidemia (Chronic) Hypothyroidism (Chronic) Coronary artery disease (Chronic) Sleep apnea (Chronic) Chronic kidney disease (Chronic) PAOD (peripheral arterial occlusive disease) (Chronic) GERD (gastroesophageal reflux disease) (Chronic) Muscle spasm (Chronic) Osteomyelitis of left foot (Chronic) Type 2 diabetes mellitus with diabetic polyneuropathy (Chronic) Pulmonary hypertension (Chronic) Obstructive sleep apnea (Chronic) Morbid obesity (Chronic) Non compliance with medical treatment (Chronic) Diabetic foot ulcers (Chronic) Aortocoronary bypass status (Chronic) Type II diabetes mellitus, uncontrolled (Chronic) History of esophageal reflux (Chronic) History of hyperlipidemia (Chronic) History of hypertension (Chronic) History of hypothyroidism (Chronic) Macular infarction (Chronic) Peripheral vascular disease (Chronic) - Past Surgical History Surgical History: angioplasty, cholecystectomy, coronary bypass surgery, - - Social History Smoking Status: Never smoker Alcohol: None Drugs: None - Family History Paternal Family History: Family History (Last Reviewed 08/16/18 @ 19:08 by Abran Garcia DO) Grandfather Diabetes Heart disease Hypertension High blood cholesterol CVA (cerebral vascular accident) Son Thyroid disorder History Items: No pertinent history Maternal Family History: Family History (Last Reviewed 08/16/18 @ 19:08 by Abran Garcia DO) Grandfather Diabetes Heart disease Hypertension High blood cholesterol CVA (cerebral vascular accident) Son Thyroid disorder History Items: - Review of Systems Constitutional: Reports: Weakness, - - Lightheadedness. Denies: Anorexia, Chills, Fever Eyes: Denies: Vision Change Cardiovascular: Reports: Edema - Chronic. Denies: Chest Pain, Palpitations, Syncope Respiratory: Reports: Cough. Denies: Shortness of Breath, Sputum production, Wheezing Gastrointestinal: Reports: Diarrhea - Watery, loose 2-5 times a day past several months, Nausea, Vomiting. Denies: Abdominal Pain, Constipation, Hematemesis, Hematochezia, Melena Genitourinary: Denies: Dysuria, Frequency, Hematuria, Urgency Musculoskeletal: Reports: - - Chronic leg swelling, no NSAID use Skin: Denies: Rash Neurological: Reports: - - Lightheaded. Denies: Focal weakness, Tremor, Seizures Hematologic/ Lymphatic: Reports: Anemia Patient Problems: Active and Suspected Problems (Last Reviewed 08/16/18 @ 19:07 by Abran Garcia DO) Anasarca (Acute) GENE (acute kidney injury) (Acute) - Physical Exam General: Alert, Oriented x3, Cooperative, No apparent distress HEENT: PERRLA, EOMI Oral: Dry Mucosa Neck: Supple Lungs: Clear to auscultation Cardiovascular: Regular rate, No rub noted Abdomen: Bowel Sounds Present, Distended, Obese, Tender - Epigastric region Extremities: Edema - Chronic bilateral lower extremity edema Skin: No rashes Musculoskeletal: No Muscle Wasting, - - Generalized weakness Neurological: Cranial nerves II-XII grossly intact, - - Slow gait Psych/Mental Status: Normal Affect, Appropriate, Alert and oriented to time, place, person, mood and affect Vital Signs Temp Pulse Resp BP Pulse Ox 97.8 F 58 L 18 116/64 93 08/17/18 08:31 08/17/18 08:31 08/17/18 08:31 08/17/18 08:31 08/17/18 08:31 Oxygen Delivery Method Room Air Weight: 115.802 kg Body Mass Index (BMI) 35.6 Finger Stick Blood Glucose 164 Intake and Output for Last 24 Hours 08/15/18 08/16/18 08/17/18 23:59 23:59 23:59 Intake Total 943 / 943 1033 / 1033 Balance 943 / 943 1033 / 1033 Laboratory Tests Past 24 Hrs 08/16/18 08/16/18 08/16/18 17:00 17:00 17:08 WBC 7.4 RBC 4.40 L Hgb 13.0 Hct 40.6 MCV 92.3 MCH 29.5 MCHC 32.0 RDW 14.7 H RDW Differential 49.3 H Plt Count 275 MPV 10.2 Immature Gran % (Auto) 0.100 Neut % (Auto) 72.9 H Lymph % (Auto) 13.9 L [place] % (Auto) 10.6 H Eos % (Auto) 2.0 Baso % (Auto) 0.5 Absolute Neuts (auto) 5.4 Absolute Lymphs (auto) 1.02 Total Counted Not Reportable Eos Smear Total Cells Sodium 138 Potassium 4.8 Chloride 102 Carbon Dioxide 25.0 Anion Gap 11 BUN 60 H Creatinine 3.56 H Estim Creat Clear Calc 21.74 Est GFR (MDRD) Af Amer 22 L Est GFR (MDRD) Non-Af 18 L BUN/Creatinine Ratio 16.9 Glucose 182 H Lactic Acid 1.2 Calcium 8.1 L Phosphorus Total Bilirubin 0.50 AST 54 H ALT 51 Alkaline Phosphatase 87 Troponin I 0.019 B-Natriuretic Peptide Total Protein 7.3 Albumin 3.1 L Globulin 4.2 Albumin/Globulin Ratio 0.7 L Lipase 246 Urine Color Urine Clarity Urine pH Ur Specific [place] Urine Protein Urine Glucose (UA) Urine Ketones Urine Occult Blood Urine Nitrite Urine Bilirubin Urine Urobilinogen Ur Leukocyte Esterase Urine RBC Urine WBC Ur Squamous Epith Cells Urine Bacteria Urine Mucus U Random Total Protein Ur Random Sodium Urine Creatinine Urine Urea Nitrogen 08/16/18 08/16/18 08/16/18 22:30 22:30 22:30 WBC RBC Hgb Hct MCV MCH MCHC RDW RDW Differential Plt Count MPV Immature Gran % (Auto) Neut % (Auto) Lymph % (Auto) [place] % (Auto) Eos % (Auto) Baso % (Auto) Absolute Neuts (auto) Absolute Lymphs (auto) Total Counted Eos Smear Total Cells Pending Sodium Potassium Chloride Carbon Dioxide Anion Gap BUN Creatinine Estim Creat Clear Calc Est GFR (MDRD) Af Amer Est GFR (MDRD) Non-Af BUN/Creatinine Ratio Glucose Lactic Acid Calcium Phosphorus Total Bilirubin AST ALT Alkaline Phosphatase Troponin I B-Natriuretic Peptide Total Protein Albumin Globulin Albumin/Globulin Ratio Lipase Urine Color Urine Clarity Urine pH Ur Specific [place] Urine Protein Urine Glucose (UA) Urine Ketones Urine Occult Blood Urine Nitrite Urine Bilirubin Urine Urobilinogen Ur Leukocyte Esterase Urine RBC Urine WBC Ur Squamous Epith Cells Urine Bacteria Urine Mucus U Random Total Protein Ur Random Sodium Urine Creatinine 109.00 Urine Urea Nitrogen 508 08/16/18 08/16/18 08/16/18 22:30 22:30 22:30 WBC RBC Hgb Hct MCV MCH MCHC RDW RDW Differential Plt Count MPV Immature Gran % (Auto) Neut % (Auto) Lymph % (Auto) [place] % (Auto) Eos % (Auto) Baso % (Auto) Absolute Neuts (auto) Absolute Lymphs (auto) Total Counted Eos Smear Total Cells Sodium Potassium Chloride Carbon Dioxide Anion Gap BUN Creatinine Estim Creat Clear Calc Est GFR (MDRD) Af Amer Est GFR (MDRD) Non-Af BUN/Creatinine Ratio Glucose Lactic Acid Calcium Phosphorus Total Bilirubin AST ALT Alkaline Phosphatase Troponin I B-Natriuretic Peptide Total Protein Albumin Globulin Albumin/Globulin Ratio Lipase Urine Color Yellow Urine Clarity Clear Urine pH 5.0 Ur Specific [place] 1.015 Urine Protein 15 H Urine Glucose (UA) 1000 H Urine Ketones Negative Urine Occult Blood Negative Urine Nitrite Negative Urine Bilirubin Negative Urine Urobilinogen Normal Ur Leukocyte Esterase 25 H Urine RBC 0 SEEN Urine WBC 0-5 SEEN Ur Squamous Epith Cells 0 SEEN Urine Bacteria 0 SEEN Urine Mucus 0 SEEN U Random Total Protein 22.0 H Ur Random Sodium 9 Urine Creatinine Urine Urea Nitrogen 08/17/18 08/17/18 08:15 09:24 WBC RBC Hgb Hct MCV MCH MCHC RDW RDW Differential Plt Count MPV Immature Gran % (Auto) Neut % (Auto) Lymph % (Auto) [place] % (Auto) Eos % (Auto) Baso % (Auto) Absolute Neuts (auto) Absolute Lymphs (auto) Total Counted Eos Smear Total Cells Sodium 139 Potassium 4.3 Chloride 105 Carbon Dioxide 23.0 Anion Gap BUN 57 H Creatinine 3.07 H Estim Creat Clear Calc 25.21 Est GFR (MDRD) Af Amer 26 L Est GFR (MDRD) Non-Af 22 L BUN/Creatinine Ratio 18.6 Glucose 148 H Lactic Acid Calcium 8.0 L Phosphorus 5.8 H Total Bilirubin AST ALT Alkaline Phosphatase Troponin I B-Natriuretic Peptide 400.9 H Total Protein Albumin 2.8 L Globulin Albumin/Globulin Ratio Lipase Urine Color Urine Clarity Urine pH Ur Specific [place] Urine Protein Urine Glucose (UA) Urine Ketones Urine Occult Blood Urine Nitrite Urine Bilirubin Urine Urobilinogen Ur Leukocyte Esterase Urine RBC Urine WBC Ur Squamous Epith Cells Urine Bacteria Urine Mucus U Random Total Protein Ur Random Sodium Urine Creatinine Urine Urea Nitrogen POC Glucose 08/17/18 08/16/18 08:28 22:07 POC Glucose 138 H 215 H Clinical Impression(s) from Imaging Studies Chest X-Ray 08/16/18 16:05 IMPRESSION: Possible mild pulmonary interstitial edema. Cannot exclude coexisting left lower lobe pneumonia Electronically Signed: Laureano Kilgore MD at 17:05 EST , Service support , Renal Ultrasound 08/16/18 19:32 IMPRESSION: Subcentimeter cyst in the left kidney. Otherwise, unremarkable renal ultrasound. Electronically Signed: Steven Vizcarra at 21:35 EST Tel , Service support , Assessment/Plan All Active Problems (Last Reviewed 08/16/18 @ 19:07 by Abran Garcia DO) Diabetic ulcer of toe of right foot associated with diabetes mellitus due to underlying condition (Acute) 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 Acute on chronic kidney disease stage III. Acute event likely due to IV contrast exposure with CT of the abdomen and pelvis on August 12. Creatinine 1.38 at that time. FEna less than 1% consistent with contrast nephropathy. He may also have prerenal event from dehydration due to chronic diarrhea, diuretics, nausea vomiting for a day. He denied any NSAID use. Baseline creatinine 1.25 from July 08, 2018. Underlying diabetic nephropathy with trace proteinuria. Urine protein creatinine ratio 200 mg/gram creatinine. Creatinine elevated 3.56 on admission improved to 3.07 with IV hydration and discontinuation of Lasix. Avoid nephrotoxins such as IV contrast, NSAIDs. Hold on vasomotor medications. The ultrasound essentially unremarkable. No hydronephrosis. Continue with gentle hydration for another day. 2. Chronic lower extremity edema with history of CAD, morbid obesity. Suggest echocardiogram to evaluate for pulmonary hypertension and LV function. 3. Hypertension with stable blood pressure 4. Diabetes mellitus type II elevated blood sugars primary service management. 5. Anemia hemoglobin stable on oral iron. 6. Morbid obesity 7. Fatty liver disease 8. Abdominal distention with epigastric discomfort, chronic diarrhea. Patient scheduled for colonoscopy on August [address] Craig as outpatient. Patient with abdominal distention from obesity at baseline. KUB ordered by primary service pending. Discussed with primary team
[2018-08-17] MEDS: Pioglitazone Hydrochloride 30 MG Tablet PO (11:50)
[2018-08-17] MEDS: Fluticasone 0.05% 1 SPRAY NASAL.SRY NASAL (11:50)
[2018-08-17] MEDS: Heparin Injection (Vial) 5,000 UNIT/ML VIAL 5000 UNIT SC ×2 (11:51→22:01)
[2018-08-17 11:52] VITALS: BP 116/64; PULSE 64
[2018-08-17] MEDS: Metoprolol Tartrate 100 MG Tablet PO (11:52)
[2018-08-17] MEDS: Montelukast 10 MG Tablet PO (11:55)
[2018-08-17] MEDS: Pantoprazole Sodium 20 MG Tablet PO (11:55)
[2018-08-17] MEDS: Clopidogrel Bisulfate 75 MG Tablet PO (11:55)
[2018-08-17] MEDS: Polyethylene Glycol 3350 17 GM PACKET PO (11:55)
[2018-08-17] MEDS: LINAGLIPTIN 5 MG TABLET PO (11:56)
[2018-08-17] MEDS: Insulin Lispro 100 UNIT/ML INSULN.PEN 30 UNIT SC (11:57)
[2018-08-17] MEDS: Insulin Lispro 100 UNIT/ML INSULN.PEN SQ (11:58)
[2018-08-17] MEDS: 0.9% Normal Saline 1,000 ML 75 ML IV (12:12)
[2018-08-17 12:25] LABS: Bedside Glucose 172 mg/dL (70-110)
--- NOTE | 2018-08-17 13:03 | PN_ITS ---
<Juan Chaudhry - Last Filed: 08/17/18 12:56> Patient Problems: Active and Suspected Problems (Last Reviewed 08/16/18 @ 19:07 by Abran Garcia DO) Anasarca (Acute) GENE (acute kidney injury) (Acute) Subjective: Pt with ongoing abdominal distention and discomfort mainly epigastric. Is urinating a significant amount. Recently had CT abdomen with contrast [facility]. No BM yet today. No fevers chills. No SOB. - Physical Exam General: Alert, Oriented x3, Cooperative HEENT: Atraumatic, PERRLA, EOMI, Normocephalic Neck: Supple, No JVD, Negative Carotid Bruits Lungs: Clear to auscultation, Normal air movement Cardiovascular: Regular rate, No murmurs Abdomen: Bowel Sounds Present, Obese, Tender Extremities: Capillary Refill Less than 3 Seconds, Edema Skin: No rashes, No breakdown Musculoskeletal: No Tenderness to Palpation of Joints or Extremities Neurological: Cranial nerves II-XII grossly intact Psych/Mental Status: Normal Affect, Appropriate, Alert and oriented to time, place, person, mood and affect Vital Signs Temp Pulse Resp BP Pulse Ox 97.8 F 64 18 116/64 93 08/17/18 08:31 08/17/18 11:52 08/17/18 08:31 08/17/18 11:52 08/17/18 08:31 Oxygen Delivery Method Room Air Weight: 255 lb 4.8 oz Body Mass Index (BMI) 35.6 Finger Stick Blood Glucose 164 Intake and Output for Last 24 Hours 08/15/18 08/16/18 08/17/18 23:59 23:59 23:59 Intake Total 943 / 943 1033 / 1033 Balance 943 / 943 1033 / 1033 Laboratory Tests Past 24 Hrs 08/16/18 08/16/18 08/16/18 17:00 17:00 17:08 WBC 7.4 RBC 4.40 L Hgb 13.0 Hct 40.6 MCV 92.3 MCH 29.5 MCHC 32.0 RDW 14.7 H RDW Differential 49.3 H Plt Count 275 MPV 10.2 Immature Gran % (Auto) 0.100 Neut % (Auto) 72.9 H Lymph % (Auto) 13.9 L [place] % (Auto) 10.6 H Eos % (Auto) 2.0 Baso % (Auto) 0.5 Absolute Neuts (auto) 5.4 Absolute Lymphs (auto) 1.02 Total Counted Not Reportable Eos Smear Total Cells Sodium 138 Potassium 4.8 Chloride 102 Carbon Dioxide 25.0 Anion Gap 11 BUN 60 H Creatinine 3.56 H Estim Creat Clear Calc 21.74 Est GFR (MDRD) Af Amer 22 L Est GFR (MDRD) Non-Af 18 L BUN/Creatinine Ratio 16.9 Glucose 182 H Lactic Acid 1.2 Calcium 8.1 L Phosphorus Total Bilirubin 0.50 AST 54 H ALT 51 Alkaline Phosphatase 87 Troponin I 0.019 B-Natriuretic Peptide Total Protein 7.3 Albumin 3.1 L Globulin 4.2 Albumin/Globulin Ratio 0.7 L Lipase 246 Urine Color Urine Clarity Urine pH Ur Specific [place] Urine Protein Urine Glucose (UA) Urine Ketones Urine Occult Blood Urine Nitrite Urine Bilirubin Urine Urobilinogen Ur Leukocyte Esterase Urine RBC Urine WBC Ur Squamous Epith Cells Urine Bacteria Urine Mucus U Random Total Protein Ur Random Sodium Urine Creatinine Urine Urea Nitrogen 08/16/18 08/16/18 08/16/18 22:30 22:30 22:30 WBC RBC Hgb Hct MCV MCH MCHC RDW RDW Differential Plt Count MPV Immature Gran % (Auto) Neut % (Auto) Lymph % (Auto) [place] % (Auto) Eos % (Auto) Baso % (Auto) Absolute Neuts (auto) Absolute Lymphs (auto) Total Counted Eos Smear Total Cells Pending Sodium Potassium Chloride Carbon Dioxide Anion Gap BUN Creatinine Estim Creat Clear Calc Est GFR (MDRD) Af Amer Est GFR (MDRD) Non-Af BUN/Creatinine Ratio Glucose Lactic Acid Calcium Phosphorus Total Bilirubin AST ALT Alkaline Phosphatase Troponin I B-Natriuretic Peptide Total Protein Albumin Globulin Albumin/Globulin Ratio Lipase Urine Color Urine Clarity Urine pH Ur Specific [place] Urine Protein Urine Glucose (UA) Urine Ketones Urine Occult Blood Urine Nitrite Urine Bilirubin Urine Urobilinogen Ur Leukocyte Esterase Urine RBC Urine WBC Ur Squamous Epith Cells Urine Bacteria Urine Mucus U Random Total Protein Ur Random Sodium Urine Creatinine 109.00 Urine Urea Nitrogen 508 08/16/18 08/16/18 08/16/18 22:30 22:30 22:30 WBC RBC Hgb Hct MCV MCH MCHC RDW RDW Differential Plt Count MPV Immature Gran % (Auto) Neut % (Auto) Lymph % (Auto) [place] % (Auto) Eos % (Auto) Baso % (Auto) Absolute Neuts (auto) Absolute Lymphs (auto) Total Counted Eos Smear Total Cells Sodium Potassium Chloride Carbon Dioxide Anion Gap BUN Creatinine Estim Creat Clear Calc Est GFR (MDRD) Af Amer Est GFR (MDRD) Non-Af BUN/Creatinine Ratio Glucose Lactic Acid Calcium Phosphorus Total Bilirubin AST ALT Alkaline Phosphatase Troponin I B-Natriuretic Peptide Total Protein Albumin Globulin Albumin/Globulin Ratio Lipase Urine Color Yellow Urine Clarity Clear Urine pH 5.0 Ur Specific [place] 1.015 Urine Protein 15 H Urine Glucose (UA) 1000 H Urine Ketones Negative Urine Occult Blood Negative Urine Nitrite Negative Urine Bilirubin Negative Urine Urobilinogen Normal Ur Leukocyte Esterase 25 H Urine RBC 0 SEEN Urine WBC 0-5 SEEN Ur Squamous Epith Cells 0 SEEN Urine Bacteria 0 SEEN Urine Mucus 0 SEEN U Random Total Protein 22.0 H Ur Random Sodium 9 Urine Creatinine Urine Urea Nitrogen 08/17/18 08/17/18 08:15 09:24 WBC RBC Hgb Hct MCV MCH MCHC RDW RDW Differential Plt Count MPV Immature Gran % (Auto) Neut % (Auto) Lymph % (Auto) [place] % (Auto) Eos % (Auto) Baso % (Auto) Absolute Neuts (auto) Absolute Lymphs (auto) Total Counted Eos Smear Total Cells Sodium 139 Potassium 4.3 Chloride 105 Carbon Dioxide 23.0 Anion Gap BUN 57 H Creatinine 3.07 H Estim Creat Clear Calc 25.21 Est GFR (MDRD) Af Amer 26 L Est GFR (MDRD) Non-Af 22 L BUN/Creatinine Ratio 18.6 Glucose 148 H Lactic Acid Calcium 8.0 L Phosphorus 5.8 H Total Bilirubin AST ALT Alkaline Phosphatase Troponin I B-Natriuretic Peptide 400.9 H Total Protein Albumin 2.8 L Globulin Albumin/Globulin Ratio Lipase Urine Color Urine Clarity Urine pH Ur Specific [place] Urine Protein Urine Glucose (UA) Urine Ketones Urine Occult Blood Urine Nitrite Urine Bilirubin Urine Urobilinogen Ur Leukocyte Esterase Urine RBC Urine WBC Ur Squamous Epith Cells Urine Bacteria Urine Mucus U Random Total Protein Ur Random Sodium Urine Creatinine Urine Urea Nitrogen POC Glucose 08/17/18 08/17/18 08/16/18 11:36 08:28 22:07 POC Glucose 172 H 138 H 215 H Medical Necessity - Tobacco Use Smoking Status: Never smoker Tobacco Use: Non-smoker Assessment/Plan All Active Problems (Last Reviewed 03/08/19 @ 19:07 by Abran Garcia DO) Diabetic ulcer of toe of right foot associated with diabetes mellitus due to underlying condition (Acute) 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 GENE - nephrology following - likely contrast induced from recent CT, prerenal. Provide additional gentle IV fluids. Hold nephrotoxins. KUB negative. Recent CT abdomen with severe intraperitoneal adipose, no ascites. He has an outpatient appointment with Dr. Chamorro for a colonoscopy scheduled. Last echo 2014 EF 50% - hx diastolic failure, also pulmonary htn - repeat echo today. CXR with pulmonary interstitial edema. This does not appear to be anasarca. lipase negative. Continue to hold lasix. 2. CAD - prior CABG/stents. Folows Kuldeep. EKG sinus irving, 1st degree av block, RBBB. on asa/plavix, statin, ronak-i, beta ramo 3. T2DM with obesity - continue home insulins plus SSI. Hold oral agents. Dietary eval. 4. HTN - stable, hold Ronak-i 5. HLD - statin 6. Chronic diabetic ulcers complicated by PVD 7. GERD, hx hiatal hernia 8. Hypothyroidism - synthroid. recent TSH normal. 9. SYED 10. Chronic constipation - on trulance. DVT ppx: heparin DC planning: PTOT, lives alone This patient was seen by Juan Chaudhry PA-C under the supervision of Dr. Real <Ciaran Real F - Last Filed: 08/17/18 15:24> - Physical Exam Vital Signs Temp Pulse Resp BP Pulse Ox 97.8 F 64 18 116/64 93 08/17/18 08:31 08/17/18 11:52 08/17/18 08:31 08/17/18 11:52 08/17/18 08:31 Oxygen Delivery Method Room Air Weight: 255 lb 4.795 oz Body Mass Index (BMI) 35.6 Finger Stick Blood Glucose 164 Intake and Output for Last 24 Hours 08/15/18 08/16/18 08/17/18 23:59 23:59 23:59 Intake Total 943 / 943 1533 / 1533 Output Total 350 / 350 Balance 943 / 943 1183 / 1183 Laboratory Tests Past 24 Hrs 08/16/18 08/16/18 08/16/18 17:00 17:00 17:08 WBC 7.4 RBC 4.40 L Hgb 13.0 Hct 40.6 MCV 92.3 MCH 29.5 MCHC 32.0 RDW 14.7 H RDW Differential 49.3 H Plt Count 275 MPV 10.2 Immature Gran % (Auto) 0.100 Neut % (Auto) 72.9 H Lymph % (Auto) 13.9 L [place] % (Auto) 10.6 H Eos % (Auto) 2.0 Baso % (Auto) 0.5 Absolute Neuts (auto) 5.4 Absolute Lymphs (auto) 1.02 Total Counted Not Reportable Eos Smear Total Cells Sodium 138 Potassium 4.8 Chloride 102 Carbon Dioxide 25.0 Anion Gap 11 BUN 60 H Creatinine 3.56 H Estim Creat Clear Calc 21.74 Est GFR (MDRD) Af Amer 22 L Est GFR (MDRD) Non-Af 18 L BUN/Creatinine Ratio 16.9 Glucose 182 H Lactic Acid 1.2 Calcium 8.1 L Phosphorus Total Bilirubin 0.50 AST 54 H ALT 51 Alkaline Phosphatase 87 Troponin I 0.019 B-Natriuretic Peptide Total Protein 7.3 Albumin 3.1 L Globulin 4.2 Albumin/Globulin Ratio 0.7 L Lipase 246 Urine Color Urine Clarity Urine pH Ur Specific [place] Urine Protein Urine Glucose (UA) Urine Ketones Urine Occult Blood Urine Nitrite Urine Bilirubin Urine Urobilinogen Ur Leukocyte Esterase Urine RBC Urine WBC Ur Squamous Epith Cells Urine Bacteria Urine Mucus U Random Total Protein Ur Random Sodium Urine Creatinine Urine Urea Nitrogen 08/16/18 08/16/18 08/16/18 22:30 22:30 22:30 WBC RBC Hgb Hct MCV MCH MCHC RDW RDW Differential Plt Count MPV Immature Gran % (Auto) Neut % (Auto) Lymph % (Auto) [place] % (Auto) Eos % (Auto) Baso % (Auto) Absolute Neuts (auto) Absolute Lymphs (auto) Total Counted Eos Smear Total Cells Pending Sodium Potassium Chloride Carbon Dioxide Anion Gap BUN Creatinine Estim Creat Clear Calc Est GFR (MDRD) Af Amer Est GFR (MDRD) Non-Af BUN/Creatinine Ratio Glucose Lactic Acid Calcium Phosphorus Total Bilirubin AST ALT Alkaline Phosphatase Troponin I B-Natriuretic Peptide Total Protein Albumin Globulin Albumin/Globulin Ratio Lipase Urine Color Urine Clarity Urine pH Ur Specific [place] Urine Protein Urine Glucose (UA) Urine Ketones Urine Occult Blood Urine Nitrite Urine Bilirubin Urine Urobilinogen Ur Leukocyte Esterase Urine RBC Urine WBC Ur Squamous Epith Cells Urine Bacteria Urine Mucus U Random Total Protein Ur Random Sodium Urine Creatinine 109.00 Urine Urea Nitrogen 508 08/16/18 08/16/18 08/16/18 22:30 22:30 22:30 WBC RBC Hgb Hct MCV MCH MCHC RDW RDW Differential Plt Count MPV Immature Gran % (Auto) Neut % (Auto) Lymph % (Auto) [place] % (Auto) Eos % (Auto) Baso % (Auto) Absolute Neuts (auto) Absolute Lymphs (auto) Total Counted Eos Smear Total Cells Sodium Potassium Chloride Carbon Dioxide Anion Gap BUN Creatinine Estim Creat Clear Calc Est GFR (MDRD) Af Amer Est GFR (MDRD) Non-Af BUN/Creatinine Ratio Glucose Lactic Acid Calcium Phosphorus Total Bilirubin AST ALT Alkaline Phosphatase Troponin I B-Natriuretic Peptide Total Protein Albumin Globulin Albumin/Globulin Ratio Lipase Urine Color Yellow Urine Clarity Clear Urine pH 5.0 Ur Specific [place] 1.015 Urine Protein 15 H Urine Glucose (UA) 1000 H Urine Ketones Negative Urine Occult Blood Negative Urine Nitrite Negative Urine Bilirubin Negative Urine Urobilinogen Normal Ur Leukocyte Esterase 25 H Urine RBC 0 SEEN Urine WBC 0-5 SEEN Ur Squamous Epith Cells 0 SEEN Urine Bacteria 0 SEEN Urine Mucus 0 SEEN U Random Total Protein 22.0 H Ur Random Sodium 9 Urine Creatinine Urine Urea Nitrogen 08/17/18 08/17/18 08:15 09:24 WBC RBC Hgb Hct MCV MCH MCHC RDW RDW Differential Plt Count MPV Immature Gran % (Auto) Neut % (Auto) Lymph % (Auto) [place] % (Auto) Eos % (Auto) Baso % (Auto) Absolute Neuts (auto) Absolute Lymphs (auto) Total Counted Eos Smear Total Cells Sodium 139 Potassium 4.3 Chloride 105 Carbon Dioxide 23.0 Anion Gap BUN 57 H Creatinine 3.07 H Estim Creat Clear Calc 25.21 Est GFR (MDRD) Af Amer 26 L Est GFR (MDRD) Non-Af 22 L BUN/Creatinine Ratio 18.6 Glucose 148 H Lactic Acid Calcium 8.0 L Phosphorus 5.8 H Total Bilirubin AST ALT Alkaline Phosphatase Troponin I B-Natriuretic Peptide 400.9 H Total Protein Albumin 2.8 L Globulin Albumin/Globulin Ratio Lipase Urine Color Urine Clarity Urine pH Ur Specific [place] Urine Protein Urine Glucose (UA) Urine Ketones Urine Occult Blood Urine Nitrite Urine Bilirubin Urine Urobilinogen Ur Leukocyte Esterase Urine RBC Urine WBC Ur Squamous Epith Cells Urine Bacteria Urine Mucus U Random Total Protein Ur Random Sodium Urine Creatinine Urine Urea Nitrogen POC Glucose 08/17/18 08/17/18 08/16/18 11:36 08:28 22:07 POC Glucose 172 H 138 H 215 H Code Visit Addendum: Dr. Real I personally examined the patient and reviewed the chart. I agree with the above. 68-year-old male with a history of CAD, diabetes, hypertension who presented with an acute kidney injury. It was found that earlier in the year he had a creatinine of 1.25, and then he underwent a CT scan with contrast on August 12 and continue to take his Lasix and is now found to have a creatinine of 3.56. It is improving with IV fluids therefore will continue. Appreciate nephrology recommendations. Inpatient E&M: 78493 Subs Hosp L2
--- NOTE | 2018-08-17 16:27 | CM.UR ---
Attempted to see patient x 2 for evaluation however first time nurse was assessing and second time therapy had just started eval. Sriram Colon RN, CCM.
[2018-08-17 16:45] VITALS: BP 123/67; PULSE 66; RESP 18; TEMP 36.4; O2SAT 94
[2018-08-17 19:36] LABS: Bedside Glucose 79 mg/dL (70-110)
[2018-08-17 20:33] VITALS: BP 108/51; PULSE 53; RESP 18; TEMP 36.6; O2SAT 94
[2018-08-17 22:01] VITALS: PULSE 52
[2018-08-17] MEDS: Atorvastatin Calcium 80 MG Tablet PO (22:01)
[2018-08-17 22:15] LABS: Bedside Glucose 71 mg/dL (70-110)
[2018-08-18 03:17] VITALS: BP 114/53; PULSE 52; RESP 18; TEMP 36.4; O2SAT 94
[2018-08-18 04:10] LABS: Bedside Glucose 85 mg/dL (70-110)
[2018-08-18] MEDS: 0.9% Normal Saline 1,000 ML 75 ML IV (05:04)
[2018-08-18 05:48] LABS: Albumin, Serum 2.7 g/dL (3.2-5.0); BUN 53 mg/dL (7-18); BUN/Creat Ratio 19.4 RATIO (10-20); Chloride 105 mmol/L (98-107); Creatinine, Serum 2.73 mg/dL (0.70-1.30); EST Glomerular Filtration Rate 25 mL/min (>60); Est Glom Filt Rate - Afr Amer 30 mL/min (>60); Estimated Creatinine Clearance 28.35 ml/min; Glucose 95 mg/dL (74-106); Phosphorus 5.6 mg/dL (2.5-4.9); Potassium 5.3 mmol/L (3.5-5.1); Sodium Level 138 mmol/L (136-145)
[2018-08-18] MEDS: Baclofen 10 MG Tablet PO ×2 (06:40→14:49)
[2018-08-18] MEDS: Meclizine HCl 25 MG Tablet PO ×2 (06:40→14:49)
[2018-08-18] MEDS: Levothyroxine 100 MCG Tablet 200 MCG PO (06:40)
[2018-08-18 06:55] LABS: Bedside Glucose 113 mg/dL (70-110)
[2018-08-18] MEDS: Iron Polysaccharide Complex 150 MG CAPSULE PO (07:56)
[2018-08-18] MEDS: Aspirin E.C. 81 MG Tablet PO (07:56)
[2018-08-18 07:59] VITALS: BP 138/69; PULSE 64; RESP 18; TEMP 36.5; O2SAT 95
[2018-08-18] MEDS: Polyethylene Glycol 3350 17 GM PACKET PO (08:16)
[2018-08-18 10:22] VITALS: BP 138/69; PULSE 64
[2018-08-18] MEDS: Fluticasone 0.05% 1 SPRAY NASAL.SRY NASAL (10:22)
[2018-08-18] MEDS: Pantoprazole Sodium 20 MG Tablet PO (10:22)
[2018-08-18] MEDS: Metoprolol Tartrate 100 MG Tablet PO (10:22)
[2018-08-18] MEDS: LINAGLIPTIN 5 MG TABLET PO (10:22)
[2018-08-18] MEDS: Montelukast 10 MG Tablet PO (10:22)
[2018-08-18] MEDS: Heparin Injection (Vial) 5,000 UNIT/ML VIAL 5000 UNIT SC (10:23)
[2018-08-18] MEDS: Pioglitazone Hydrochloride 30 MG Tablet PO (10:23)
[2018-08-18] MEDS: Clopidogrel Bisulfate 75 MG Tablet PO (10:23)
--- NOTE | 2018-08-18 11:11 | PCM.DC ---
- Discharge Diagnoses Current Active Problems: Current Active and Chronic Problems (Last Reviewed 08/16/18 @ 19:07 by Abran Garcia DO) Anasarca (Acute) GENE (acute kidney injury) (Acute) You will use the following diet at home:: Calorie/Carbohydrate Controlled (specify 1200, 1400, etc) - 1800 danielle / day, Cardiac - <2 g sodium daily Your food should be the consistency of: Regular Your liquids should be the consistency of: Regular/Thin Discharge Activity: Return to Normal Activity Allergies/Adverse Reactions: Allergies adhesive Allergy (Verified 08/16/18 14:57) SKIN GETS PULLED OFF SKIN GETS PULLED OFF latex Allergy (Verified 08/16/18 14:57) Hives Medications to take at Discharge Clopidogrel Bisulfate [Plavix] 75 mg PO DAILY 05/15/13 Levothyroxine [Synthroid] 200 mcg PO DAILY 05/15/13 Metoprolol Tartrate [Lopressor (beta ramo)] 100 mg PO BID 05/15/13 Atorvastatin Calcium [Lipitor] 80 mg PO QHS 01/12/16 Pantoprazole Sodium [Protonix] 20 mg PO DAILY 01/12/16 Iron Polysaccharide Complex [Ferrex 150] 150 mg PO DAILYCM #30 cap 09/07/17 Linagliptin [Tradjenta] 5 mg PO DAILY #30 tab 09/07/17 Aspirin E.C. [Ecotrin] 81 mg PO DAILY@0800 01/16/18 Fluticasone 0.05% [Flonase Nasal [place]] 1 spray NASAL DAILY 01/16/18 Meclizine HCl 25 mg PO TID 01/16/18 Montelukast [Singulair] 10 mg PO DAILY 01/16/18 Baclofen 10 mg PO TID 08/16/18 Pioglitazone HCl 30 mg PO DAILY 08/16/18 Plecanatide [Trulance] 3 mg PO DAILY 08/16/18 Insulin Glargine [Lantus SoloStar Pen] 30 units SC BID pen 08/18/18 Orders to be completed after discharge: Basic Metabolic Profile (BMP) Time Frame: 3 Days, Location: Laboratory Primary Care Physician: Johnathan Batres Chi, MD [Primary Care Provider] - Please follow up with your Primary Care Physician in: 1-2 weeks Test Results: Test results from this visit will be discussed in further detail at your follow-up appointment, if applicable. Please Follow Up With: Celia Webb DO When: 1-2 weeks Please Follow Up With: Gideon Chamorro MD - Colonoscopy When: Keep prior appointment Proposed Discharge Date: 08/18/18
[2018-08-18] MEDS: Insulin Lispro 100 UNIT/ML INSULN.PEN SQ ×2 (12:10→14:49)
[2018-08-18] MEDS: Sodium Polystyrene Sulfonate 15 GM/60 ML UDC PO (13:07)
[2018-08-18 13:10] LABS: Bedside Glucose 290 mg/dL (70-110)
--- NOTE | 2018-08-18 14:25 | PCM.DC.SUM ---
<Juan Chaudhry - Last Filed: 08/18/18 14:25> Discharge Date and Diagnosis Date of Admission: 08/16/18 Date of Discharge: 08/18/18 - Primary Discharge Diagnosis Active and Suspected Problems (Last Reviewed 08/16/18 @ 19:07 by Abran Garcia DO) GENE 2/2 contrast induced nephropathy anasarca ruled out Distended abdomen 2/2 obesity with intraabdominal adiposity Chronic constipation Hx CAD, CABG, stents T2DM with obesity SYED Hypothyroidism GERD Chronic diabetic foot ulcers PVD HTN HLD - Secondary Discharge Diagnosis Chronic Problems (Last Reviewed 08/16/18 @ 19:07 by Abran Garcia DO) Blister of left leg (Chronic) Subungual hematoma of toe of right foot (Chronic) Skin ulcer of third toe of right foot with fat layer exposed (Chronic) 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) Diabetes mellitus (Chronic) Chronic ulcer of left foot with fat layer exposed (Chronic) dorsal foot Non-pressure chronic ulcer of other part of left foot with fat layer exposed (Chronic) dorsal left medial foot Non-pressure chronic ulcer of other part of right foot with fat layer exposed (Chronic) PAD (peripheral artery disease) (Chronic) Diabetes mellitus with neuropathy (Chronic) CAD (coronary artery disease) (Chronic) Malnutrition (Chronic) Delayed wound healing (Chronic) Lower extremity edema (Chronic) Ulcer of right foot with fat layer exposed (Chronic) Hypertension (Chronic) Hyperlipidemia (Chronic) Hypothyroidism (Chronic) Coronary artery disease (Chronic) Sleep apnea (Chronic) Chronic kidney disease (Chronic) PAOD (peripheral arterial occlusive disease) (Chronic) GERD (gastroesophageal reflux disease) (Chronic) Muscle spasm (Chronic) Osteomyelitis of left foot (Chronic) Type 2 diabetes mellitus with diabetic polyneuropathy (Chronic) Pulmonary hypertension (Chronic) Obstructive sleep apnea (Chronic) Morbid obesity (Chronic) Non compliance with medical treatment (Chronic) Diabetic foot ulcers (Chronic) Aortocoronary bypass status (Chronic) Type II diabetes mellitus, uncontrolled (Chronic) History of esophageal reflux (Chronic) History of hyperlipidemia (Chronic) History of hypertension (Chronic) History of hypothyroidism (Chronic) Macular infarction (Chronic) Peripheral vascular disease (Chronic) Hospital Course and Treatment Imaging Results: Echo: Interpretation Summary Normal LV size. Left ventricular systolic function is normal. The estimated ejection fraction is 60 %. Stage 2 diastolic dysfunction. Pulmonary artery systolic pressure is 54 mmHg. Moderate pulmonary hypertension. RAD/Chest 1 View (Portable) IMPRESSION: Possible mild pulmonary interstitial edema. Cannot exclude coexisting left lower lobe pneumonia RAD/Abdomen Single View (Portable) IMPRESSION: No bowel obstruction. Consults: Jon - Nephrology Operations: None Procedures: 2-D Echocardiogram Summary of Care Provided: Hospital course: The patient is a 68 year old M with pmhx as above who presented to the emergency room with complaints of abdominal distention, midepigastric pain lower extremity edema. He had recently had his abdomen evaluated with a contrasted CT of the abdomen earlier that week at the [facility]. He presented with acute kidney injury. He had a history of CKD, and his packing machine can feeder pristinely was consulted. As he appeared to have a distended abdomen and other signs of fluid retention he was admitted with concern for anasarca. His nephrotoxic agents were held. He was given IV fluids as further evaluation by nephrology felt that this was a prerenal issue secondary to the contrast nephropathy. We obtained the report of the CT of the abdomen from the [facility], and it demonstrated the underlying primary issue with his very large abdomen was a very large quantity of intra-abdominal adipose tissue, very little subcutaneous adiposity. This was consistent with a prior abdominal CT in our system. No ascites. He complained of ongoing chronic constipation. A KUB was ordered and was negative. He is scheduled as an outpatient to be seen by Dr. Chamorro for a colonoscopy. He continued to complain of ongoing abdominal distention and midepigastric pain and was reassured that there is no acute process at this time that could be treated, and that he would have to follow-up for his adiposity, and we recommended lifestyle changes including increased exercise, weight loss, and dieting. We advised him to have a BMP to assess his renal function in 3 days after leaving the hospital. We advised that he follow-up with his PCP and his packing machine can feeder in 1-2 weeks. He should keep the appointment for his colonoscopy as previously scheduled. He was discharged home in stable condition. At discharge his home insulin was decreased as he was hypoglycemic here even with several of his other antidiabetic medications held. At this time he will have a lower dose of levemir - 45 bid. Hold mealtime insulin. Victoza stopped. Farxiga contraindicated with current renal function. Lasix held - may need to resume after his kidneys recover. This patient was seen by Juan Chaudhry PA-C under the supervision of Doctor Farhan. [] - Physical Exam General: Alert, Oriented x3, Cooperative HEENT: Atraumatic, PERRLA, EOMI, Normocephalic Neck: Supple, No JVD, Negative Carotid Bruits Lungs: Clear to auscultation, Normal air movement Cardiovascular: Regular rate, No murmurs Abdomen: Bowel Sounds Present, Soft, Non Tender, Obese Extremities: Capillary Refill Less than 3 Seconds, Edema - nonpitting Skin: No rashes, No breakdown Musculoskeletal: No Tenderness to Palpation of Joints or Extremities Neurological: Cranial nerves II-XII grossly intact Psych/Mental Status: Normal Affect, Appropriate, Alert and oriented to time, place, person, mood and affect Vital Signs Temp Pulse Resp BP Pulse Ox 97.7 F L 64 18 138/69 H 95 08/18/18 07:59 08/18/18 10:22 08/18/18 07:59 08/18/18 10:22 08/18/18 07:59 Oxygen Delivery Method Room Air Weight: 255 lb 4.795 oz Body Mass Index (BMI) 35.6 Finger Stick Blood Glucose 164 Intake and Output for Last 24 Hours 08/16/18 08/17/18 08/19/18 23:59 23:59 00:59 Intake Total 943 / 943 2389 / 2389 2671 / 2671 Output Total 900 / 900 2500 / 2500 Balance 943 / 943 1489 / 1489 171 / 171 Laboratory Tests Past 24 Hrs 08/18/18 05:25 Sodium 138 Potassium 5.3 H Chloride 105 Carbon Dioxide 25.0 BUN 53 H Creatinine 2.73 H Estim Creat Clear Calc 28.35 Est GFR (MDRD) Af Amer 30 L Est GFR (MDRD) Non-Af 25 L BUN/Creatinine Ratio 19.4 Glucose 95 Calcium 8.0 L Phosphorus 5.6 H Albumin 2.7 L POC Glucose 08/18/18 08/18/18 08/18/18 12:08 06:46 03:10 POC Glucose 290 H 113 H 85 08/17/18 08/17/18 22:01 18:18 POC Glucose 71 79 Discharge Diet: Low fat/ Low Cholesterol, 1800 Calorie Control Diet, 2000 mg Sodium Diet Discharge Activity: Return to Normal Activity Home Medications: Medications to take at Discharge Clopidogrel Bisulfate [Plavix] 75 mg PO DAILY 05/15/13 Levothyroxine [Synthroid] 200 mcg PO DAILY 05/15/13 Metoprolol Tartrate [Lopressor (beta ramo)] 100 mg PO BID 05/15/13 Atorvastatin Calcium [Lipitor] 80 mg PO QHS 01/12/16 Pantoprazole Sodium [Protonix] 20 mg PO DAILY 01/12/16 Iron Polysaccharide Complex [Ferrex 150] 150 mg PO DAILYCM #30 cap 09/07/17 Linagliptin [Tradjenta] 5 mg PO DAILY #30 tab 09/07/17 Aspirin E.C. [Ecotrin] 81 mg PO DAILY@0800 01/16/18 Fluticasone 0.05% [Flonase Nasal [place]] 1 spray NASAL DAILY 01/16/18 Meclizine HCl 25 mg PO TID 01/16/18 Montelukast [Singulair] 10 mg PO DAILY 01/16/18 Baclofen 10 mg PO TID 08/16/18 Pioglitazone HCl 30 mg PO DAILY 08/16/18 Plecanatide [Trulance] 3 mg PO DAILY 08/16/18 Insulin Glargine [Lantus SoloStar Pen] 45 units SC BID pen 08/18/18 Other Amb Orders: Basic Metabolic Profile (BMP) Time Frame: 3 Days, Location: Laboratory Primary Care Physician: Johnathan Batres Chi, MD [Primary Care Provider] - Please follow up with your Primary Care Physician in: 1-2 weeks Please Follow Up With: Celia Webb DO When: 1-2 weeks Please Follow Up With: Gideon Chamorro MD - Colonoscopy When: Keep prior appointment Disposition: Home Minutes spent on discharge:: 35 Patient Condition:: Stable Medical Necessity - Tobacco Use Smoking Status: Never smoker Tobacco Use: Non-smoker Meaningful Use Info Meaningful Use Diagnoses (Choose all that apply): None applicable <Ciaran Real - Last Filed: 08/18/18 17:33> Discharge Date and Diagnosis - Secondary Discharge Diagnosis Chronic Problems (Last Reviewed 08/16/18 @ 19:07 by Abran Garcia DO) Blister of left leg (Chronic) Subungual hematoma of toe of right foot (Chronic) Skin ulcer of third toe of right foot with fat layer exposed (Chronic) 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) Diabetes mellitus (Chronic) Chronic ulcer of left foot with fat layer exposed (Chronic) dorsal foot Non-pressure chronic ulcer of other part of left foot with fat layer exposed (Chronic) dorsal left medial foot Non-pressure chronic ulcer of other part of right foot with fat layer exposed (Chronic) PAD (peripheral artery disease) (Chronic) Diabetes mellitus with neuropathy (Chronic) CAD (coronary artery disease) (Chronic) Malnutrition (Chronic) Delayed wound healing (Chronic) Lower extremity edema (Chronic) Ulcer of right foot with fat layer exposed (Chronic) Hypertension (Chronic) Hyperlipidemia (Chronic) Hypothyroidism (Chronic) Coronary artery disease (Chronic) Sleep apnea (Chronic) Chronic kidney disease (Chronic) PAOD (peripheral arterial occlusive disease) (Chronic) GERD (gastroesophageal reflux disease) (Chronic) Muscle spasm (Chronic) Osteomyelitis of left foot (Chronic) Type 2 diabetes mellitus with diabetic polyneuropathy (Chronic) Pulmonary hypertension (Chronic) Obstructive sleep apnea (Chronic) Morbid obesity (Chronic) Non compliance with medical treatment (Chronic) Diabetic foot ulcers (Chronic) Aortocoronary bypass status (Chronic) Type II diabetes mellitus, uncontrolled (Chronic) History of esophageal reflux (Chronic) History of hyperlipidemia (Chronic) History of hypertension (Chronic) History of hypothyroidism (Chronic) Macular infarction (Chronic) Peripheral vascular disease (Chronic) Hospital Course and Treatment Summary of Care Provided: The patient is a 68 year old M [] - Physical Exam Vital Signs Temp Pulse Resp BP Pulse Ox 98.1 F 76 18 122/71 H 96 08/18/18 15:43 08/18/18 15:43 08/18/18 15:43 08/18/18 15:43 08/18/18 15:43 Oxygen Delivery Method Room Air Weight: 255 lb 4.795 oz Body Mass Index (BMI) 35.6 Finger Stick Blood Glucose 164 Intake and Output for Last 24 Hours 08/16/18 08/17/18 08/19/18 23:59 23:59 00:59 Intake Total 943 / 943 2389 / 2389 2671 / 2671 Output Total 900 / 900 2500 / 2500 Balance 943 / 943 1489 / 1489 171 / 171 Laboratory Tests Past 24 Hrs 08/18/18 05:25 Sodium 138 Potassium 5.3 H Chloride 105 Carbon Dioxide 25.0 BUN 53 H Creatinine 2.73 H Estim Creat Clear Calc 28.35 Est GFR (MDRD) Af Amer 30 L Est GFR (MDRD) Non-Af 25 L BUN/Creatinine Ratio 19.4 Glucose 95 Calcium 8.0 L Phosphorus 5.6 H Albumin 2.7 L POC Glucose 08/18/18 08/18/18 08/18/18 14:30 12:08 06:46 POC Glucose 412 H 290 H 113 H 08/18/18 08/17/18 08/17/18 03:10 22:01 18:18 POC Glucose 85 71 79 Code Visit Addendum: Dr. Real I personally examined the patient and reviewed the chart. I agree with the above. 68-year-old male with a history of CAD, diabetes, hypertension who presented with an acute kidney injury. It was found that earlier in the year he had a creatinine of 1.25, and then he underwent a CT scan with contrast on August 12 and continue to take his Lasix and is now found to have a creatinine of 3.56 which ultimately improved to 2.73 on the day of discharge. It was discussed with the packing machine can feeder who stated that it was okay to go home and to follow-up with her as an outpatient. Will hold Lasix until determined to be okay to restart with a improved creatinine at an outpatient BMP. Inpatient E&M: [id number] Disch Hosp
--- NOTE | 2018-08-18 14:40 | DS.PCM_ITS ---
<Juan Chaudhry - Last Filed: 08/18/18 14:25> Discharge Date and Diagnosis Date of Admission: 08/16/18 Date of Discharge: 08/18/18 - Primary Discharge Diagnosis Active and Suspected Problems (Last Reviewed 08/16/18 @ 19:07 by Abran Garcia DO) GENE 2/2 contrast induced nephropathy anasarca ruled out Distended abdomen 2/2 obesity with intraabdominal adiposity Chronic constipation Hx CAD, CABG, stents T2DM with obesity SYED Hypothyroidism GERD Chronic diabetic foot ulcers PVD HTN HLD - Secondary Discharge Diagnosis Chronic Problems (Last Reviewed 08/16/18 @ 19:07 by Abran Garcia DO) Blister of left leg (Chronic) Subungual hematoma of toe of right foot (Chronic) Skin ulcer of third toe of right foot with fat layer exposed (Chronic) 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) Diabetes mellitus (Chronic) Chronic ulcer of left foot with fat layer exposed (Chronic) dorsal foot Non-pressure chronic ulcer of other part of left foot with fat layer exposed (Chronic) dorsal left medial foot Non-pressure chronic ulcer of other part of right foot with fat layer exposed (Chronic) PAD (peripheral artery disease) (Chronic) Diabetes mellitus with neuropathy (Chronic) CAD (coronary artery disease) (Chronic) Malnutrition (Chronic) Delayed wound healing (Chronic) Lower extremity edema (Chronic) Ulcer of right foot with fat layer exposed (Chronic) Hypertension (Chronic) Hyperlipidemia (Chronic) Hypothyroidism (Chronic) Coronary artery disease (Chronic) Sleep apnea (Chronic) Chronic kidney disease (Chronic) PAOD (peripheral arterial occlusive disease) (Chronic) GERD (gastroesophageal reflux disease) (Chronic) Muscle spasm (Chronic) Osteomyelitis of left foot (Chronic) Type 2 diabetes mellitus with diabetic polyneuropathy (Chronic) Pulmonary hypertension (Chronic) Obstructive sleep apnea (Chronic) Morbid obesity (Chronic) Non compliance with medical treatment (Chronic) Diabetic foot ulcers (Chronic) Aortocoronary bypass status (Chronic) Type II diabetes mellitus, uncontrolled (Chronic) History of esophageal reflux (Chronic) History of hyperlipidemia (Chronic) History of hypertension (Chronic) History of hypothyroidism (Chronic) Macular infarction (Chronic) Peripheral vascular disease (Chronic) Hospital Course and Treatment Imaging Results: Echo: Interpretation Summary Normal LV size. Left ventricular systolic function is normal. The estimated ejection fraction is 60 %. Stage 2 diastolic dysfunction. Pulmonary artery systolic pressure is 54 mmHg. Moderate pulmonary hypertension. RAD/Chest 1 View (Portable) IMPRESSION: Possible mild pulmonary interstitial edema. Cannot exclude coexisting left lower lobe pneumonia RAD/Abdomen Single View (Portable) IMPRESSION: No bowel obstruction. Consults: Jon - Nephrology Operations: None Procedures: 2-D Echocardiogram Summary of Care Provided: Hospital course: The patient is a 68 year old M with pmhx as above who presented to the emergency room with complaints of abdominal distention, midepigastric pain lower extremity edema. He had recently had his abdomen evaluated with a contrasted CT of the abdomen earlier that week at the [facility]. He presented with acute kidney injury. He had a history of CKD, and his layout man pristinely was consulted. As he appeared to have a distended abdomen and other signs of fluid retention he was admitted with concern for anasarca. His nephrotoxic agents we re held. He was given IV fluids as further evaluation by nephrology felt that this was a prerenal issue secondary to the contrast nephropathy. We obtained the report of the CT of the abdomen from the [facility], and it demonstrated the underlying primary issue with his very large abdomen was a very large quantity of intra-abdominal adipose tissue, very little subcutaneous adiposity. This was consistent with a prior abdominal CT in our system. No ascites. He complained of ongoing chronic constipation. A KUB was ordered and was negative. He is scheduled as an outpatient to be seen by Dr. Chamorro for a colonoscopy. He continued to complain of ongoing abdominal distention and midepigastric pain and was reassured that there is no acute process at this time that could be treated, and that he would have to follow-up for his adiposity, and we recommended lifestyle changes including increased exercise, weight loss, and dieting. We advised him to have a BMP to assess his renal function in 3 days after leaving the hospital. We advised that he follow-up with his PCP and his layout man in 1-2 weeks. He should keep the appointment for his colonoscopy as previously scheduled. He was discharged home in stable condition. At discharge his home insulin was decreased as he was hypoglycemic here even with several of his other antidiabetic medications held. At this time he will have a lower dose of levemir - 45 bid. Hold mealtime insulin. Victoza stopped. Farxiga contraindicated with current renal function. Lasix held - may need to resume after his kidneys recover. This patient was seen by Juan Chaudhry PA-C under the supervision of Doctor Farhan. [] - Physical Exam General: Alert, Oriented x3, Cooperative HEENT: Atraumatic, PERRLA, EOMI, Normocephalic Neck: Supple, No JVD, Negative Carotid Bruits Lungs: Clear to auscultation, Normal air movement Cardiovascular: Regular rate, No murmurs Abdomen: Bowel Sounds Present, Soft, Non Tender, Obese Extremities: Capillary Refill Less than 3 Seconds, Edema - nonpitting Skin: No rashes, No breakdown Musculoskeletal: No Tenderness to Palpation of Joints or Extremities Neurological: Cranial nerves II-XII grossly intact Psych/Mental Status: Normal Affect, Appropriate, Alert and oriented to time, place, person, mood and affect Vital Signs Temp Pulse Resp BP Pulse Ox 97.7 F L 64 18 138/69 H 95 08/18/18 07:59 08/18/18 10:22 08/18/18 07:59 08/18/18 10:22 08/18/18 07:59 Oxygen Delivery Method Room Air Weight: 255 lb 4.795 oz Body Mass Index (BMI) 35.6 Finger Stick Blood Glucose 164 Intake and Output for Last 24 Hours 08/16/18 08/17/18 08/19/18 23:59 23:59 00:59 Intake Total 943 / 943 2389 / 2389 2671 / 2671 Output Total 900 / 900 2500 / 2500 Balance 943 / 943 1489 / 1489 171 / 171 Laboratory Tests Past 24 Hrs 08/18/18 05:25 Sodium 138 Potassium 5.3 H Chloride 105 Carbon Dioxide 25.0 BUN 53 H Creatinine 2.73 H Estim Creat Clear Calc 28.35 Est GFR (MDRD) Af Amer 30 L Est GFR (MDRD) Non-Af 25 L BUN/Creatinine Ratio 19.4 Glucose 95 Calcium 8.0 L Phosphorus 5.6 H Albumin 2.7 L POC Glucose 08/18/18 08/18/18 08/18/18 12:08 06:46 03:10 POC Glucose 290 H 113 H 85 08/17/18 08/17/18 22:01 18:18 POC Glucose 71 79 Discharge Diet: Low fat/ Low Cholesterol, 1800 Calorie Control Diet, 2000 mg Sodium Diet Discharge Activity: Return to Normal Activity Home Medications: Medications to take at Discharge Clopidogrel Bisulfate [Plavix] 75 mg PO DAILY 05/15/13 Levothyroxine [Synthroid] 200 mcg PO DAILY 05/15/13 Metoprolol Tartrate [Lopressor (beta ramo)] 100 mg PO BID 05/15/13 Atorvastatin Calcium [Lipitor] 80 mg PO QHS 01/12/16 Pantoprazole Sodium [Protonix] 20 mg PO DAILY 01/12/16 Iron Polysaccharide Complex [Ferrex 150] 150 mg PO DAILYCM #30 cap 09/07/17 Linagliptin [Tradjenta] 5 mg PO DAILY #30 tab 09/07/17 Aspirin E.C. [Ecotrin] 81 mg PO DAILY@0800 01/16/18 Fluticasone 0.05% [Flonase Nasal [place]] 1 spray NASAL DAILY 01/16/18 Meclizine HCl 25 mg PO TID 01/16/18 Montelukast [Singulair] 10 mg PO DAILY 01/16/18 Baclofen 10 mg PO TID 08/16/18 Pioglitazone HCl 30 mg PO DAILY 08/16/18 Plecanatide [Trulance] 3 mg PO DAILY 08/16/18 Insulin Glargine [Lantus SoloStar Pen] 45 units SC BID pen 08/18/18 Other Amb Orders: Basic Metabolic Profile (BMP) Time Frame: 3 Days, Location: Laboratory Primary Care Physician: Johnathan Batres Chi, MD [Primary Care Provider] - Please follow up with your Primary Care Physician in: 1-2 weeks Please Follow Up With: Celia Webb DO When: 1-2 weeks Please Follow Up With: Gideon Chamorro MD - Colonoscopy When: Keep prior appointment Disposition: Home Minutes spent on discharge:: 35 Patient Condition:: Stable Medical Necessity - Tobacco Use Smoking Status: Never smoker Tobacco Use: Non-smoker Meaningful Use Info Meaningful Use Diagnoses (Choose all that apply): None applicable <Ciaran Real - Last Filed: 08/18/18 17:33> Discharge Date and Diagnosis - Secondary Discharge Diagnosis Chronic Problems (Last Reviewed 08/16/18 @ 19:07 by Abran Garcia DO) Blister of left leg (Chronic) Subungual hematoma of toe of right foot (Chronic) Skin ulcer of third toe of right foot with fat layer exposed (Chronic) 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) Diabetes mellitus (Chronic) Chronic ulcer of left foot with fat layer exposed (Chronic) dorsal foot Non-pressure chronic ulcer of other part of left foot with fat layer exposed (Chronic) dorsal left medial foot Non-pressure chronic ulcer of other part of right foot with fat layer exposed (Chronic) PAD (peripheral artery disease) (Chronic) Diabetes mellitus with neuropathy (Chronic) CAD (coronary artery disease) (Chronic) Malnutrition (Chronic) Delayed wound healing (Chronic) Lower extremity edema (Chronic) Ulcer of right foot with fat layer exposed (Chronic) Hypertension (Chronic) Hyperlipidemia (Chronic) Hypothyroidism (Chronic) Coronary artery disease (Chronic) Sleep apnea (Chronic) Chronic kidney disease (Chronic) PAOD (peripheral arterial occlusive disease) (Chronic) GERD (gastroesophageal reflux disease) (Chronic) Muscle spasm (Chronic) Osteomyelitis of left foot (Chronic) Type 2 diabetes mellitus with diabetic polyneuropathy (Chronic) Pulmonary hypertension (Chronic) Obstructive sleep apnea (Chronic) Morbid obesity (Chronic) Non compliance with medical treatment (Chronic) Diabetic foot ulcers (Chronic) Aortocoronary bypass status (Chronic) Type II diabetes mellitus, uncontrolled (Chronic) History of esophageal reflux (Chronic) History of hyperlipidemia (Chronic) History of hypertension (Chronic) History of hypothyroidism (Chronic) Macular infarction (Chronic) Peripheral vascular disease (Chronic) Hospital Course and Treatment Summary of Care Provided: The patient is a 68 year old M [] - Physical Exam Vital Signs Temp Pulse Resp BP Pulse Ox 98.1 F 76 18 122/71 H 96 08/18/18 15:43 08/18/18 15:43 08/18/18 15:43 08/18/18 15:43 08/18/18 15:43 Oxygen Delivery Method Room Air Weight: 255 lb 4.795 oz Body Mass Index (BMI) 35.6 Finger Stick Blood Glucose 164 Intake and Output for Last 24 Hours 08/16/18 08/17/18 08/19/18 23:59 23:59 00:59 Intake Total 943 / 943 2389 / 2389 2671 / 2671 Output Total 900 / 900 2500 / 2500 Balance 943 / 943 1489 / 1489 171 / 171 Laboratory Tests Past 24 Hrs 08/18/18 05:25 Sodium 138 Potassium 5.3 H Chloride 105 Carbon Dioxide 25.0 BUN 53 H Creatinine 2.73 H Estim Creat Clear Calc 28.35 Est GFR (MDRD) Af Amer 30 L Est GFR (MDRD) Non-Af 25 L BUN/Creatinine Ratio 19.4 Glucose 95 Calcium 8.0 L Phosphorus 5.6 H Albumin 2.7 L POC Glucose 08/18/18 08/18/18 08/18/18 14:30 12:08 06:46 POC Glucose 412 H 290 H 113 H 08/18/18 08/17/18 08/17/18 03:10 22:01 18:18 POC Glucose 85 71 79 Code Visit Addendum: Dr. Real I personally examined the patient and reviewed the chart. I agree with the above. 68-year-old male with a history of CAD, diabetes, hypertension who presented with an acute kidney injury. It was found that earlier in the year he had a creatinine of 1.25, and then he underwent a CT scan with contrast on August 12 and continue to take his Lasix and is now found to have a creatinine of 3.56 which ultimately improved to 2.73 on the day of discharge. It was discussed with the layout man who stated that it was okay to go home and to follow-up with her as an outpatient. Will hold Lasix until determined to be okay to restart with a improved creatinine at an outpatient BMP. Inpatient E&M: [id number] Disch Hosp
[2018-08-18 15:16] LABS: Bedside Glucose 412 mg/dL (70-110)
[2018-08-18 15:43] VITALS: BP 122/71; PULSE 76; RESP 18; TEMP 36.7; O2SAT 96
--- NOTE | 2018-08-19 14:43 | CASEMGMT ---
ISABEL ROQUE DC PHONE CALL DC DATE: 08/17/18 DC Disposition: Home LACE/STRATA: 03/13 Intro role of CM to patient via phone. Reviewed dc instructions, prescriptions and follow up. Pt has appointment with PCP tomorrow and will have blood drawn there. BMP ordered for 3 days after discharge. Pt states he has not had BM since he has been home. ISABEL ROQUE instructed patient to let his doctor know tomorrow and to take his medications and dc instructions to physician office tomorrow. Pt talkative- emotional support given. Safia ROQUE RN ACM
[2018-08-20 11:30] LABS: Eosinophil Ct. Urine No Eosinophils Seen % (.)
[2018-08-20 15:46] LABS: Bedside Glucose 61 mg/dL (70-110)
[2018-08-20 15:46] LABS: Bedside Glucose 53 mg/dL (70-110)
== END 2018-08-18 15:28 | disposition home or self-care (01) | DRG 684 ==
LOC: ED 18:48 → MS3 18:50
PROVIDERS: Internal Medicine Nephrology; Physician Assistant; Emergency Provider Emergency Medicine; Family Provider Family Medicine Geriatric Medicine; PCP Family Medicine Geriatric Medicine; Visit Provider Family Medicine
DX: N17.9 Acute kidney failure, unspecified (principal); N14.1 Nephropathy induced by other drugs, medicaments and biological substances; T50.8X5A Adverse effect of diagnostic agents, initial encounter; I25.10 Atherosclerotic heart disease of native coronary artery without angina pectoris; K21.9 Gastro-esophageal reflux disease without esophagitis; I44.0 Atrioventricular block, first degree; I45.10 Unspecified right bundle-branch block; G47.33 Obstructive sleep apnea (adult) (pediatric); K59.09 Other constipation; E03.9 Hypothyroidism, unspecified; E11.22 Type 2 diabetes mellitus with diabetic chronic kidney disease; E78.5 Hyperlipidemia, unspecified; K76.0 Fatty (change of) liver, not elsewhere classified; E11.51 Type 2 diabetes mellitus with diabetic peripheral angiopathy without gangrene; D64.9 Anemia, unspecified; E11.42 Type 2 diabetes mellitus with diabetic polyneuropathy; I12.9 Hypertensive chronic kidney disease with stage 1 through stage 4 chronic kidney disease, or unspecified chronic kidney disease; N18.3 Chronic kidney disease, stage 3 (moderate); E66.01 Morbid (severe) obesity due to excess calories; E11.621 Type 2 diabetes mellitus with foot ulcer; I27.20 Pulmonary hypertension, unspecified; Z95.1 Presence of aortocoronary bypass graft; Z95.5 Presence of coronary angioplasty implant and graft; Z79.4 Long term (current) use of insulin; Z68.35 Body mass index [BMI] 35.0-35.9, adult
CPT/HCPCS: 36415; 71045; 74018; 76770; 80053; 80069; 81001; 82570; 82962; 83605; 83690; 83880; 84156; 84300; 84484; 84540; 85025; 87205; 93005; 93306; 97162; 97166; 97530; 97802; 99283; J7030; Q9957; A4216; J2405

== ENCOUNTER 2018-08-25 15:22 | Emergency (ER) | payer MEDICARE, MEDICAID, SELFPAY ==
[2018-08-25 15:22] VITALS: BMI 35.6
[2018-08-25 15:25] VITALS: BP 112/48; PULSE 52; RESP 16; RESP 19; TEMP 36.4; O2SAT 95; O2SAT 97; BMI 37.0
[2018-08-25 15:46] LABS: Bedside Glucose 91 mg/dL (70-110)
[2018-08-25 16:25] VITALS: BP 112/55; PULSE 54; RESP 16; O2SAT 96
[2018-08-25 16:42] LABS: Absolute Lymphocyte Count 0.66 X10^3/ul (0.83-4.51); Absolute Neutrophil Count 8.9 X10^3/uL (2.0-7.7); Basophil# 0.05 X10^3/uL; Basophil% 0.5 % (0-1); Eosinophil# 0.15 X10^3/uL; Eosinophils% 1.4 % (0-5); Hemoglobin 14.7 g/dl (13.0-16.5); Lymphocyte # 0.66 X10^3/ul (4.0); Lymphocyte % 6.1 % (19-41); Mean Corp Hgb Conc 33.4 g/gl (32-36); Mean Corpuscular Hgb 30.4 pg (27.0-32.0); Mean Corpuscular Volume 91.1 fL (80-94); Mean Platelet Vol. 11.1 fl (6.2-12.0); Monocyte# 0.94 X10^3/uL; Monocyte% 8.8 % (0-10); Neutrophil # 8.89 X10^3/uL (2.7-7.7); Neutrophil % 82.7 % (47-70); Platelet Count 172 K/mm3 (150-450); RBC Distribution Width SD 49.3 fl (35.1-43.9); Red Blood Count 4.83 M/mm3 (4.6-6.2); White Blood Count 10.7 K/mm3 (4.4-11.0)
[2018-08-25 16:49] LABS: Differential Indicated SCAN CRITERIA MET; POSITIVE COUNT YES; POSITIVE DIFFERENTIAL NO; POSITIVE MORPHOLOGY NO
[2018-08-25 17:00] VITALS: BP 146/77; PULSE 54; RESP 16; O2SAT 97
[2018-08-25 17:03] LABS: AST(SGOT) 75 U/L (15-37); Alanine Aminotransfer ALT/SGPT 79 U/L (16-61); Albumin, Serum 3.3 g/dL (3.2-5.0); Alkaline Phosphatase 86 U/L (45-117); Anion Gap 4 (5-15); BUN 24 mg/dL (7-18); BUN/Creat Ratio 16.8 RATIO (10-20); Calcium,Total 8.1 mg/dL (8.5-10.1); Chloride 103 mmol/L (98-107); Creatinine, Serum 1.43 mg/dL (0.70-1.30); EST Glomerular Filtration Rate 53 mL/min (>60); Est Glom Filt Rate - Afr Amer 64 mL/min (>60); Estimated Creatinine Clearance 54.12 ml/min; Globulin 3.4 g/dL (2.2-4.2); Glucose 135 mg/dL (74-106); Potassium 4.1 mmol/L (3.5-5.1); Protein, Total 6.7 g/dL (6.4-8.2); Sodium Level 136 mmol/L (136-145)
[2018-08-25 17:06] LABS: Differential Comment SCANNED
--- NOTE | 2018-08-25 17:06 | ED.DCSUM_ITS ---
- ER Visit Summary Date of Service: 08/25/18 Chief Complaint: Hypoglycemia History of Present Illness: The patient is a 68 M took his full dose of insulin this morning but did not eat a big breakfast he felt weak and crest his emergency alert button. He was found to be hypoglycemic in the 40s. He was given glucagon and oral glucose. He arrived in somewhat improved condition. He denies any chest pain shortness of breath fever chills. No back pain. He has had some indigestion for some time, this has been worked up extensively and is actually due for colonoscopy in the next few days. Physical Examination: Patient has unremarkable vitals he appears well and nontoxic. His mucous membranes are moist. He has clear lungs bilaterally he has a soft abdomen slightly distended but nontender. Emergency Department Course and Treatment: He ate in the emergency department his blood work is unremarkable his blood sugar is now in the 90s. I believe he is stable for discharge she is requesting discharge. Discharge stable condition Impression: [Hypoglycemia] This note was generated with [employer] dictation software. It may contain incorrect words, spelling, and punctuation that were not noted in review of the chart prior to signing ED Disposition - Plan for ED Patient: Disposition: Home or Assisted Living Instructions: ED Diabetes Hypoglycemia Insulin React Referrals: Johnathan Batres Chi, MD [Primary Care Provider] - 3-5 Days
[2018-08-25 17:25] VITALS: BP 146/77; PULSE 54; RESP 16; O2SAT 97
== END 2018-08-25 17:59 | disposition home or self-care (01) ==
PROVIDERS: Emergency Provider Emergency Medicine; Family Provider Family Medicine Geriatric Medicine; PCP Family Medicine Geriatric Medicine
DX: E11.649 Type 2 diabetes mellitus with hypoglycemia without coma (principal); Z79.4 Long term (current) use of insulin
CPT/HCPCS: 36415; 80053; 82962; 85025; 99285; J7030; A4216; J1610

== ENCOUNTER 2018-09-04 13:00 | Outpatient (RCR) | payer MEDICARE, SELFPAY ==
[2018-08-09 00:53] VITALS: BP 135/59; PULSE 68; RESP 20; TEMP 36.6
[2018-08-21 12:51] LABS: BUN 32 mg/dL (7-18); BUN/Creat Ratio 17.8 RATIO (10-20); Calcium,Total 8.3 mg/dL (8.5-10.1); Chloride 103 mmol/L (98-107); EST Glomerular Filtration Rate 40 mL/min (>60); Est Glom Filt Rate - Afr Amer 49 mL/min (>60); Glucose 419 mg/dL (74-106); Phosphorus 3.5 mg/dL (2.5-4.9); Potassium 4.9 mmol/L (3.5-5.1); Sodium Level 136 mmol/L (136-145)
[2018-08-21 13:11] VITALS: BP 150/69; PULSE 78; RESP 16; TEMP 36.3; BMI 32.1
--- NOTE | 2018-08-21 15:02 | PN.PCM_ITS ---
(1) Non-pressure chronic ulcer of other part of right foot with fat layer exposed Status: Chronic Code(s): L97.512 - Non-pressure chronic ulcer of other part of right foot with fat layer exposed (2) Chronic ulcer of left foot with fat layer exposed Status: Resolved Code(s): L97.522 - Non-pressure chronic ulcer of other part of left foot with fat layer exposed Comment: dorsal foot (3) Hammer toe of right foot Status: Acute Code(s): M20.41 - Other hammer toe(s) (acquired), right foot (4) PAD (peripheral artery disease) Status: Chronic Code(s): I73.9 - Peripheral vascular disease, unspecified (5) Diabetes mellitus with neuropathy Status: Chronic Qualifiers: Diabetes mellitus type: type 2 Code(s): E11.40 - Type 2 diabetes mellitus with diabetic neuropathy, unspecified (6) Malnutrition Status: Chronic Code(s): E46 - Unspecified protein-calorie malnutrition (7) Delayed wound healing Status: Chronic Code(s): T14.8 - Other injury of unspecified body region (8) Lower extremity edema Status: Chronic Code(s): R60.0 - Localized edema Type of Wound Date of Service: 08/21/18 Chief Complaint: diabetic Left foot ulcer and right third toe ulcer History of Wound: This 68-year-old male who presents to the wound healing center today with complaint of recurrent left plantar foot ulcer and also an ulceration on his right third toe. He denies fever, chill, nausea, vomiting. He wears surgical shoes to reduce pressure to the ulcer sites. Progress of Wound: Healed left foot ulcer. Improving right foot ulcer - Physical Exam Vital Signs Temp Pulse Resp BP 97.4 F L 78 16 150/69 H 08/21/18 13:11 08/21/18 13:11 08/21/18 13:11 08/21/18 13:11 Wound Measurements and Assessment WC - Nurse 1 - General Ulcer Measurement Start: 08/21/18 13:11 Freq: Status: Active Protocol: Activity Type Activity Date Activity User E-Sign Co-Sign Detail Recorded Client Recorded Date Recorded By Document 08/21/18 13:11 [facility] [id number] 08/21/18 13:19 [facility] 08/21/18 13:11 Wound Center Nurse 1 [Ulcer Assessment] # 22 RIGHT 3rd TOE ANTERIOR -Combined with other wound No -Current Size (cm) - Length 0.4 -Current Size (cm) - Width 0.7 -Current Size (cm) - Depth 0.1 -Total Square Cm 0.28 -Photo Taken No -Epithelialization None Present -Tunneling No -Undermining/Tunneling No -Circular Undermining No -Exudate Amt None Present -Wound Margin Distinct, Outline Attached -Granulation Amt None Present (0 %) -Slough/Fibrin Yes -Necrosis Amt Large (67-100%) -Necrotic Tissue Type Adherent Slough -Texture (Maggy-wound Skin Appearance) Assessed Scarring -Moisture (Maggy-wound Skin Appearance Dry/Scaly ) -Color (Maggy-wound Skin Appearance) Assessed -Temperature (Maggy-wound Skin No Abnormality Appearance) (Pt Warm) -Tenderness on Palpation (Maggy-wound No Skin Appearance) -Ulcer Cleansing Rinsed/ Irrigated with Saline -Foul Odor after Cleansing No -Anesthetic Used 5% Lidocaine Gel #21 LEFT PLANTAR FOOT -Combined with other wound No -Current Size (cm) - Length 0.1 -Current Size (cm) - Width 0.1 -Current Size (cm) - Depth 0.1 -Total Square Cm 0.01 -Photo Taken No -Epithelialization Large 67-100% -Tunneling No -Undermining/Tunneling No -Circular Undermining No -Exudate Amt None Present -Wound Margin Distinct, Outline Attached -Texture (Maggy-wound Skin Appearance) Assessed Callus Scarring -Moisture (Maggy-wound Skin Appearance Assessed ) Dry/Scaly -Color (Maggy-wound Skin Appearance) Assessed -Temperature (Maggy-wound Skin No Abnormality Appearance) (Pt Warm) -Tenderness on Palpation (Maggy-wound No Skin Appearance) -Ulcer Cleansing Rinsed/ Irrigated with Saline -Foul Odor after Cleansing No -Anesthetic Used 5% Lidocaine Gel [Edema Assessment] -Lower Limb Edema Present Yes -Right Calf (cm) 40.1 -Right Ankle (cm) 24.6 -Left Calf (cm) 41.5 -Left Ankle (cm) 23.3 WC - Nurse 2 - General Ulcer CM Notes Start: 08/21/18 13:11 Freq: Status: Active Protocol: Activity Type Activity Date Activity User E-Sign Co-Sign Detail Recorded Client Recorded Date Recorded By Document 08/21/18 13:44 AN [id number] 08/21/18 13:49 AN 08/21/18 13:44 Wound Center Nurse 2 [Procedure/Treatment] # 22 RIGHT 3rd TOE ANTERIOR -Time 13:47 -Correct Patient Yes -Correct Side, Site, Position Yes -Correct Procedure Yes -Procedure Performed Yes -Type of Procedure Debridement -Clinical Debridement Subcutaneous -Post Debridement Size (cm) - Length 0.5 -Post Debridement Size (cm) - Width 0.8 -Post Debridement Size (cm) - Depth 0.1 -Total Square Cm 0.40 -Wound/Ulcer Outcome Not Healed -Ulcer Cleansing Rinsed/ Irrigated with Saline -Foul Odor after Cleansing No -Bioengineered Tissue No -Bleeding Controlled with Pressure -Offloading Yes -Type of Offloading Surgical Shoe -Treatment Response Procedure Tolerated Well [See Physician Procedure note for Specifics] Pain Scale: 0-10 Numeric [Pain] -Is Patient Pain Free? Yes Debridement Note Post-Debridement Measurements/Treatment WC - Nurse 2 - General Ulcer CM Notes Start: 08/21/18 13:11 Freq: Status: Active Protocol: Activity Type Activity Date Activity User E-Sign Co-Sign Detail Recorded Client Recorded Date Recorded By Document 08/21/18 13:44 AN [id number] 08/21/18 13:49 AN 08/21/18 13:44 Wound Center Nurse 2 # 22 RIGHT 3rd TOE ANTERIOR -Time 13:47 -Correct Patient Yes -Correct Side, Site, Position Yes -Correct Procedure Yes -Procedure Performed Yes -Type of Procedure Debridement -Clinical Debridement Subcutaneous -Post Debridement Size (cm) - Length 0.5 -Post Debridement Size (cm) - Width 0.8 -Post Debridement Size (cm) - Depth 0.1 -Total Square Cm 0.40 -Wound/Ulcer Outcome Not Healed -Ulcer Cleansing Rinsed/ Irrigated with Saline -Foul Odor after Cleansing No -Bioengineered Tissue No -Bleeding Controlled with Pressure -Offloading Yes -Type of Offloading Surgical Shoe -Treatment Response Procedure Tolerated Well Pain Scale: 0-10 Numeric Is Patient Pain Free? Yes Wound debrided: dorsal third toe ulcer right Laterality: Right Wound Grade/Stage: grade 2 Type of Debridement: Excisional debridement Anesthesia Used: 5% Lidocaine Gel Depth: in the subcutaneous layer Percentage of wound debrided: 100 Instrument Used: #15 blade Tissue Removed: fibrous, devitalized subcutaneous, biofilm, slough Severity: Fat Layer Exposed Amount of bleeding with debridement: Mild Bleeding Controlled with: Pressure Patient tolerated procedure well Assessment/Plan Assessment: Calvin 2 ulcer right third toe: osteomyelitis has been ruled out. left plantafoot ulcer healed today. peripheral vascular disease with recent intervention 2018. diabetes with neuropathy. malnutrition. non compliance history Plan: The patient was seen and examined at the wound center today and was updated on the plan of care. A subcutaneous debridement was performed today to the right foot. Granulation tissue of the right toe is noted. The patients wound care will consist of: Applying Lac-Hydrin to the callused areas and the continuation of moistened daily jarred to right third toe. Serial lab trends and x-rays will be followed throughout the healing process. To keep pressure off the ulcer sites to optimize healing; he has surgical shoes. To continue with nutritional supplementation and proper glycemic control to optimize healing. He was reassured no local signs of infection are noted today. To monitor closely. Instructed to follow-up with PCP and to maintain Endo for tighter glucose control. Vascular studies ordered and pending, patient recently did have intervention in July [address] Redding. Patient will follow up at wound healing center in one week or sooner if needed. Patient is to resume his nutritional supplementation of Glucerna high-protein. Resuming extra- depth diabetic shoes will be considered once his ulcerations are healed. He asked about this again today. I answered all the questions.
[2018-09-04 13:11] VITALS: BP 115/49; PULSE 57; RESP 18; TEMP 36.6; BMI 32.1
--- NOTE | 2018-09-04 16:33 | PCM.WC.PN ---
(1) Non-pressure chronic ulcer of other part of right foot with fat layer exposed Status: Chronic Code(s): L97.512 - Non-pressure chronic ulcer of other part of right foot with fat layer exposed (2) Hammer toe of right foot Status: Acute Code(s): M20.41 - Other hammer toe(s) (acquired), right foot (3) PAD (peripheral artery disease) Status: Chronic Code(s): I73.9 - Peripheral vascular disease, unspecified (4) Diabetes mellitus with neuropathy Status: Chronic Qualifiers: Diabetes mellitus type: type 2 Code(s): E11.40 - Type 2 diabetes mellitus with diabetic neuropathy, unspecified (5) Malnutrition Status: Chronic Code(s): E46 - Unspecified protein-calorie malnutrition (6) Delayed wound healing Status: Chronic Code(s): T14.8 - Other injury of unspecified body region (7) Lower extremity edema Status: Chronic Code(s): R60.0 - Localized edema Type of Wound Date of Service: 09/04/18 Chief Complaint: right third toe ulcer History of Wound: This 68-year-old male who presents to the wound healing center today with complaint of recurrent left plantar foot ulcer and also an ulceration on his right third toe. He denies fever, chill, nausea, vomiting. He wears surgical shoes to reduce pressure to the ulcer sites. He thinks the ulcer site has healed and he wears regular shoes. He takes Glucerna nutritional supplement. Progress of Wound: . Improving right foot ulcer - Physical Exam Vital Signs Temp Pulse Resp BP 98 F 57 L 18 115/49 L 09/04/18 13:11 09/04/18 13:11 09/04/18 13:11 09/04/18 13:11 General: Alert, Oriented x3, Cooperative Extremities: No cyanosis, Capillary Refill Less than 3 Seconds, No Calf Tenderness - Negative Rashad and Tenorio sign bilateral, Diminished Peripheral Pulses, Edema - Moderate bilateral lower extremities Skin: Ulcer/ Wound - No purulence, erythema, streaking, odor, or infection. His skin is very atrophic, hairless, and with hyperpigmentation. There is a dry partially adhered eschar to the dorsal third toe upon debridement there is still an open ulcer site with granulation tissue. There is no longer any exposed bone or joint. Wound Measurements and Assessment WC - Nurse 1 - General Ulcer Measurement Start: 08/21/18 13:11 Freq: Status: Active Protocol: Activity Type Activity Date Activity User E-Sign Co-Sign Detail Recorded Client Recorded Date Recorded By Document 09/04/18 13:[address] [facility] [id number] 09/04/18 13:[address] [facility] 09/04/18 13:11 Wound Center Nurse 1 [Ulcer Assessment] # 22 RIGHT 3rd TOE ANTERIOR -Combined with other wound No -Current Size (cm) - Length 0.4 -Current Size (cm) - Width 0.6 -Current Size (cm) - Depth 0.1 -Total Square Cm 0.24 -Date of Last Picture (Recall this 09/04/18 field) -Photo Taken Yes -Epithelialization None Present -Tunneling No -Undermining/Tunneling No -Circular Undermining No -Exudate Amt None Present -Wound Margin Distinct, Outline Attached -Granulation Amt None Present (0 %) -Slough/Fibrin Yes -Necrosis Amt Large (67-100%) -Necrotic Tissue Type Adherent Slough -Structure Exposed N/A -Texture (Maggy-wound Skin Appearance) Assessed Scarring -Moisture (Maggy-wound Skin Appearance Assessed ) Dry/Scaly -Color (Maggy-wound Skin Appearance) Assessed -Temperature (Maggy-wound Skin No Abnormality Appearance) (Pt Warm) -Tenderness on Palpation (Maggy-wound No Skin Appearance) -Ulcer Cleansing Rinsed/ Irrigated with Saline -Foul Odor after Cleansing No -Anesthetic Used 4% Lidocaine Solution [Edema Assessment] -Lower Limb Edema Present Yes -Right Calf (cm) 45 -Right Ankle (cm) 23.6 -Left Calf (cm) 43.9 -Left Ankle (cm) 24.3 - Nurse 2 - General Ulcer CM Notes Start: 08/21/18 13:11 Freq: Status: Active Protocol: Activity Type Activity Date Activity User E-Sign Co-Sign Detail Recorded Client Recorded Date Recorded By Document 09/04/18 13:31 [id number] 09/04/18 13:35 09/04/18 13:31 Wound Center Nurse 2 [Procedure/Treatment] # 22 RIGHT 3rd TOE ANTERIOR -Time 13:35 -Correct Patient Yes -Correct Side, Site, Position Yes -Correct Procedure Yes -Procedure Performed Yes -Type of Procedure Debridement -Clinical Debridement Subcutaneous -Post Debridement Size (cm) - Length 0.3 -Post Debridement Size (cm) - Width 0.5 -Post Debridement Size (cm) - Depth 0.1 -Total Square Cm 0.15 -Wound/Ulcer Outcome Not Healed -Ulcer Cleansing Rinsed/ Irrigated with Saline -Foul Odor after Cleansing No -Bioengineered Tissue No -Bleeding Controlled with Pressure -Offloading No -Treatment Response Procedure Tolerated Well [See Physician Procedure note for Specifics] Pain Scale: 0-10 Numeric [Pain] -Is Patient Pain Free? Yes Musculoskeletal: No Tenderness to Palpation of Joints or Extremities, Muscle Wasting, - - Dorsal contraction of lesser toes left. Transmetatarsal amputation healed right Neurological: - - Lack of normal epicritic sensation light touch bilateral lower extremities consistent with neuropathy Psych/Mental Status: Normal Affect, Appropriate Debridement Note Post-Debridement Measurements/Treatment WC - Nurse 2 - General Ulcer CM Notes Start: 08/21/18 13:11 Freq: Status: Active Protocol: Activity Type Activity Date Activity User E-Sign Co-Sign Detail Recorded Client Recorded Date Recorded By Document 08/21/18 13:44 AN [id number] 08/21/18 13:49 AN Document 09/04/18 13:31 [id number] 09/04/18 13:35 08/21/18 09/04/18 13:44 13:31 Wound Center Nurse 2 # 22 RIGHT 3rd TOE ANTERIOR -Time 13:47 13:35 -Correct Patient Yes Yes -Correct Side, Site, Position Yes Yes -Correct Procedure Yes Yes -Procedure Performed Yes Yes -Type of Procedure Debridement Debridement -Clinical Debridement Subcutaneous Subcutaneous -Post Debridement Size (cm) - Length 0.5 0.3 -Post Debridement Size (cm) - Width 0.8 0.5 -Post Debridement Size (cm) - Depth 0.1 0.1 -Total Square Cm 0.40 0.15 -Wound/Ulcer Outcome Not Healed Not Healed -Ulcer Cleansing Rinsed/ Rinsed/ Irrigated with Irrigated with Saline Saline -Foul Odor after Cleansing No No -Bioengineered Tissue No No -Bleeding Controlled with Pressure Pressure -Offloading Yes No -Type of Offloading Surgical Shoe -Treatment Response Procedure Procedure Tolerated Well Tolerated Well Pain Scale: 0-10 Numeric Is Patient Pain Free? Yes Yes Wound debrided: dorsal third toe Laterality: Right Wound Grade/Stage: grade 2 Type of Debridement: Excisional debridement Anesthesia Used: 5% Lidocaine Gel Depth: in the subcutaneous layer Percentage of wound debrided: 100 Instrument Used: #15 blade Tissue Removed: fibrous, devitalized subcutaneous, biofilm, slough Severity: Fat Layer Exposed Amount of bleeding with debridement: Mild Bleeding Controlled with: Pressure Patient tolerated procedure well Assessment/Plan Assessment: Calvin 2 ulcer right third toe: osteomyelitis has been ruled out. left plantafoot ulcer healed today. peripheral vascular disease with recent intervention 2018. diabetes with neuropathy. malnutrition. non compliance history Plan: The patient was seen and examined at the wound center today and was updated on the plan of care. A subcutaneous debridement was performed today to the right foot. Granulation tissue of the right toe is noted. The patients wound care will consist of: Applying Lac-Hydrin to the callused areas and the continuation of moistened daily jarred to right third toe. Serial lab trends and x-rays will be followed throughout the healing process. To keep pressure off the ulcer sites to optimize healing; he has surgical shoes. To continue with nutritional supplementation and proper glycemic control to optimize healing. He was reassured no local signs of infection are noted today. To monitor closely. Instructed to follow-up with PCP and to maintain Endo for tighter glucose control. Vascular studies ordered and pending, patient recently did have intervention in July [address] Redding. Patient will follow up at wound healing center in one week or sooner if needed. Patient is to resume his nutritional supplementation of Glucerna high-protein. Resuming extra-depth diabetic shoes will be considered once his ulcerations are healed. He asked about this again today. I answered all the questions.
== END 2018-09-08 23:59 ==
LOC: WC 13:00
PROVIDERS: Family Provider Family Medicine Geriatric Medicine; PCP Family Medicine Geriatric Medicine; Referring Provider Nurse Practitioner Family; Visit Provider Podiatrist
DX: E11.621 Type 2 diabetes mellitus with foot ulcer (principal); E11.51 Type 2 diabetes mellitus with diabetic peripheral angiopathy without gangrene; E11.40 Type 2 diabetes mellitus with diabetic neuropathy, unspecified; L97.512 Non-pressure chronic ulcer of other part of right foot with fat layer exposed; M20.41 Other hammer toe(s) (acquired), right foot; R60.0 Localized edema
CPT/HCPCS: 11042; 36415; 80069

== ENCOUNTER 2018-09-09 08:44 | Outpatient (RCR) | payer MEDICARE, SELFPAY ==
[2018-09-09 00:47] VITALS: BP 115/49; PULSE 57; RESP 18; TEMP 36.6
[2018-09-11 13:16] VITALS: BP 122/65; PULSE 53; RESP 18; TEMP 36.4; BMI 32.1
--- NOTE | 2018-09-11 16:04 | PN.PCM_ITS ---
(1) Ulcer of right foot with fat layer exposed Status: Resolved Code(s): L97.512 - Non-pressure chronic ulcer of other part of right foot with fat layer exposed (2) Chronic ulcer of left foot with fat layer exposed Status: Resolved Code(s): L97.522 - Non-pressure chronic ulcer of other part of left foot with fat layer exposed Comment: dorsal foot (3) Edema leg Status: Chronic Code(s): R60.0 - Localized edema (4) Hammertoe of right foot Status: Chronic Code(s): M20.41 - Other hammer toe(s) (acquired), right foot (5) Diabetes mellitus with neuropathy Status: Chronic Qualifiers: Diabetes mellitus type: type 2 Code(s): E11.40 - Type 2 diabetes mellitus with diabetic neuropathy, unspecified (6) Corns and callosities Status: Chronic Code(s): L84 - Corns and callosities Type of Wound Date of Service: 09/11/18 Chief Complaint: right third toe ulcer History of Wound: This 68-year-old male who presents to the wound healing center today with complaint of recurrent left plantar foot ulcer and also an ulceration on his right third toe. He denies fever, chill, nausea, vomiting. He wears surgical shoes to reduce pressure to the ulcer sites. He takes Glucerna nutritional supplement. He denies drainage. Progress of Wound: Healed right foot ulcer - Physical Exam Vital Signs Temp Pulse Resp BP 97.5 F L 53 L 18 122/65 H 09/11/18 13:16 09/11/18 13:16 09/11/18 13:16 09/11/18 13:16 General: Alert, Oriented x3, Cooperative HEENT: Atraumatic Extremities: No cyanosis, Capillary Refill Less than 3 Seconds, No Calf Tenderness - Negative Rashad and Tenorio sign bilateral, Diminished Peripheral Pulses, Edema - Moderate bilateral lower extremities, - - Left transmetatarsal amputation site. Dorsal contraction of lesser toes of the right foot Skin: Ulcer/ Wound - No purulence, erythema, streaking, odor, or infection bilateral. The peripheral skin is hairless and atrophic, - - There is a callus plantar left foot with some some hemorrhagic dried tissue noted. After debridement there is full epithelialization and no ulcer maceration appreciated Wound Measurements and Assessment WC - Nurse 1 - General Ulcer Measurement Start: 09/11/18 13:16 Freq: Status: Active Protocol: Activity Type Activity Date Activity User E-Sign Co-Sign Detail Recorded Client Recorded Date Recorded By Document 09/11/18 13:16 [facility] [id number] 09/11/18 13:22 [facility] 09/11/18 13:16 Wound Center Nurse 1 [Ulcer Assessment] # 22 RIGHT 3rd TOE ANTERIOR -Combined with other wound No -Current Size (cm) - Length 0.1 -Current Size (cm) - Width 0.1 -Current Size (cm) - Depth 0.1 -Total Square Cm 0.01 -Epithelialization Large 67-100% -Tunneling No -Undermining/Tunneling No -Circular Undermining No -Granulation Amt None Present (0 %) -Slough/Fibrin Yes -Necrosis Amt Large (67-100%) -Necrotic Tissue Type Adherent Slough -Texture (Maggy-wound Skin Appearance) Assessed Scarring -Moisture (Maggy-wound Skin Appearance Assessed ) Dry/Scaly -Color (Maggy-wound Skin Appearance) Assessed -Temperature (Maggy-wound Skin No Abnormality Appearance) (Pt Warm) -Tenderness on Palpation (Maggy-wound No Skin Appearance) -Ulcer Cleansing Rinsed/ Irrigated with Saline -Foul Odor after Cleansing No -Anesthetic Used 5% Lidocaine Gel #21 LEFT PLANTAR FOOT -Combined with other wound No -Current Size (cm) - Length 0.1 -Current Size (cm) - Width 0.1 -Current Size (cm) - Depth 0.1 -Total Square Cm 0.01 -Photo Taken No -Epithelialization Large 67-100% -Tunneling No -Undermining/Tunneling No -Circular Undermining No -Exudate Amt None Present -Granulation Amt None Present (0 %) -Slough/Fibrin Yes -Necrosis Amt Large (67-100%) -Necrotic Tissue Type Adherent Slough -Texture (Maggy-wound Skin Appearance) Assessed Callus Scarring -Moisture (Maggy-wound Skin Appearance Assessed ) Dry/Scaly -Color (Maggy-wound Skin Appearance) Assessed -Temperature (Maggy-wound Skin No Abnormality Appearance) (Pt Warm) -Tenderness on Palpation (Maggy-wound No Skin Appearance) -Ulcer Cleansing Rinsed/ Irrigated with Saline -Foul Odor after Cleansing No -Anesthetic Used 5% Lidocaine Gel [Edema Assessment] -Lower Limb Edema Present Yes -Right Calf (cm) 42.5 -Right Ankle (cm) 22.6 -Left Calf (cm) 41.6 -Left Ankle (cm) 24 Musculoskeletal: No Tenderness to Palpation of Joints or Extremities, Muscle Wasting Neurological: - - Lack of epicritic sensation light touch bilateral lower extremities consistent with his neuropathy Psych/Mental Status: Normal Affect, Appropriate Debridement Note Wound debrided: dorsal third toe Laterality: Right No debridement was completed today - healed today - Additional Wound Wound debrided: plantar foot Laterality: Left Instrument Used: - - no debridement - healed today Assessment/Plan Assessment: Calvin 2 ulcer right third toe: osteomyelitis has been ruled out - now healed. left plantafoot ulcer healed today; callous only today. peripheral vascular disease with recent intervention 2018. Lower extremity edema worsened today. Right hammertoe deformity. diabetes with neuropathy. malnutrition. non compliance history Plan: The patient was seen and examined at the wound center today and was updated on the plan of care. Debridement was not performed today to the ulcers because they have healed. Left plantar foot callus debridement was performed without incident and he was reassured he does not have any infections or ulcers to bilateral lower extremities. The patients wound care will consist of: Applying Lac-Hydrin to the callused areas. To keep pressure off the recently healed ulcer sites; he has surgical shoes. I recommend transitioning to extra- depth diabetic shoes with more flexible neoprene shoe upper. I will evaluate his diabetic shoes when he follows up in 2 weeks to see if these are appropriate for ulcer prevention in the future and also to allow the skin to continue to remodel. To discontinue nutritional supplementation at this time. He was reassured no local signs of infection are noted today. To monitor closely. Instructed to follow-up with PCP and to maintain Endocrinology for continued glucose control. Vascular studies ordered and pending, patient recently did have intervention in July [address] [place]. Patient will follow up at wound healing center in two weeks or sooner if needed. I answered all the questions.
== END 2018-10-08 08:44 | disposition home or self-care (01) ==
LOC: WC 08:44
PROVIDERS: Family Provider Family Medicine Geriatric Medicine; PCP Family Medicine Geriatric Medicine; Referring Provider Nurse Practitioner Family; Visit Provider Podiatrist
DX: Z09 Encounter for follow-up examination after completed treatment for conditions other than malignant neoplasm (principal); E11.51 Type 2 diabetes mellitus with diabetic peripheral angiopathy without gangrene; E11.40 Type 2 diabetes mellitus with diabetic neuropathy, unspecified; M20.41 Other hammer toe(s) (acquired), right foot
CPT/HCPCS: 99213; G0463

== ENCOUNTER → 2018-09-11 15:33 | Outpatient (CLI) | payer MEDICARE, SELFPAY ==
[2018-09-11 15:33] VITALS: BMI 37.0
[2018-09-11 17:16] LABS: Absolute Lymphocyte Count 1.08 X10^3/ul (0.83-4.51); Absolute Neutrophil Count 5.1 X10^3/uL (2.0-7.7); Basophil# 0.03 X10^3/uL; Basophil% 0.4 % (0-1); Eosinophil# 0.18 X10^3/uL; Eosinophils% 2.4 % (0-5); Hematocrit 40.5 % (40-54); Hemoglobin 13.1 g/dl (13.0-16.5); Lymphocyte # 1.08 X10^3/ul (4.0); Lymphocyte % 14.6 % (19-41); Mean Corp Hgb Conc 32.3 g/gl (32-36); Mean Corpuscular Hgb 29.8 pg (27.0-32.0); Mean Corpuscular Volume 92.3 fL (80-94); Mean Platelet Vol. 10.9 fl (6.2-12.0); Monocyte# 0.94 X10^3/uL; Monocyte% 12.7 % (0-10); Neutrophil # 5.14 X10^3/uL (2.7-7.7); Neutrophil % 69.6 % (47-70); Platelet Count 255 K/mm3 (150-450); RBC Distribution Width CV 15.2 % (11.6-14.6); Red Blood Count 4.39 M/mm3 (4.6-6.2); White Blood Count 7.4 K/mm3 (4.4-11.0)
--- NOTE | 2018-09-11 17:22 | RAD_ITS ---
STUDY: X-RAY - ABDOMEN/PELVIS REASON FOR EXAM: Male, 68 years old. Pain. TECHNIQUE: Single AP view of the abdomen / pelvis. COMPARISON: None. FINDINGS: Normal visualized lung bases. There is a moderate amount of colonic fecal material. No dilated loops of bowel or evidence for obstruction. There is no demonstrated free abdominal air. The visualized liver, spleen and kidneys are grossly normal in size and morphology. Normal soft tissue structures. Normal visualized osseous structures. RAD/Abdomen Single View IMPRESSION: No evidence for obstruction. Moderate fecal retention. Electronically Signed: Kulwinder Sylvester MD at 18:11 EDT , Service support ,
--- NOTE | 2018-09-11 17:22 | RAD_ITS ---
STUDY: X-RAY CHEST REASON FOR EXAM: Male, 68 years old. Congestive heart failure. TECHNIQUE: Frontal and lateral views of the chest. COMPARISON: 01/16/2018. FINDINGS: Mild hyperexpansion of the lungs. Irregular density in the lower left hemithorax consistent with pleural-parenchymal scarring, and stable. No definite infiltrates or effusions. Sternal cerclage wires and vascular clips are present from a prior sternotomy and coronary artery bypass graft procedure (CABG). Borderline cardiomegaly. Implanted monitoring and evaluation advisor is seen. Normal mediastinum and catrina. Normal visualized pulmonary arteries. Normal visualized aortic arch and descending thoracic aorta. Normal visualized thoracic spine. Normal visualized ribs, clavicles, and shoulders. There is no demonstrated abnormality of the visualized soft tissue structures of the upper abdomen. RAD/Chest PA and Lateral IMPRESSION: Chronic pulmonary disease. No definite acute chest disease or change. Electronically Signed: Kulwinder Sylvester MD at 17:52 EDT , Service support ,
[2018-09-11 17:29] LABS: Anion Gap 9 (5-15); BUN 27 mg/dL (7-18); BUN/Creat Ratio 19.1 RATIO (10-20); Calcium,Total 9.4 mg/dL (8.5-10.1); Chloride 99 mmol/L (98-107); Creatinine, Serum 1.41 mg/dL (0.70-1.30); EST Glomerular Filtration Rate 53 mL/min (>60); Est Glom Filt Rate - Afr Amer 65 mL/min (>60); Glucose 166 mg/dL (74-106); Potassium 4.3 mmol/L (3.5-5.1); Sodium Level 140 mmol/L (136-145)
[2018-09-11 17:55] LABS: BNP,B-Type NATRIURETIC PEPTIDE 298.6 pg/mL (0-100)
[2018-09-11 17:58] LABS: POSITIVE COUNT NO; POSITIVE DIFFERENTIAL NO; POSITIVE MORPHOLOGY NO
== END ==
LOC: POLAB3 15:34 → RAD 17:17
PROVIDERS: Family Provider Family Medicine Geriatric Medicine; PCP Family Medicine Geriatric Medicine; Referring Provider Family Medicine Geriatric Medicine; Visit Provider Family Medicine Geriatric Medicine
DX: R10.9 Unspecified abdominal pain (principal); R06.89 Other abnormalities of breathing; I50.9 Heart failure, unspecified
CPT/HCPCS: 36415; 71046; 74018; 80048; 83880; 85025

== ENCOUNTER → 2018-11-06 08:59 | Outpatient (CLI) | payer MEDICARE, SELFPAY ==
[2018-09-11 15:33] VITALS: BMI 37.0
[2018-11-06 13:01] LABS: Absolute Lymphocyte Count 0.89 X10^3/ul (0.83-4.51); Absolute Neutrophil Count 4.3 X10^3/uL (2.0-7.7); Basophil# 0.04 X10^3/uL; Basophil% 0.7 % (0-1); Eosinophils% 3.3 % (0-5); Hematocrit 39.5 % (40-54); Lymphocyte # 0.89 X10^3/ul (4.0); Lymphocyte % 14.7 % (19-41); Mean Corp Hgb Conc 32.9 g/gl (32-36); Mean Corpuscular Hgb 30.6 pg (27.0-32.0); Mean Corpuscular Volume 92.9 fL (80-94); Mean Platelet Vol. 10.1 fl (6.2-12.0); Monocyte# 0.59 X10^3/uL; Monocyte% 9.8 % (0-10); Neutrophil # 4.33 X10^3/uL (2.7-7.7); Neutrophil % 71.5 % (47-70); POSITIVE COUNT NO; POSITIVE DIFFERENTIAL NO; POSITIVE MORPHOLOGY NO; Platelet Count 294 K/mm3 (150-450); RBC Distribution Width CV 15.9 % (11.6-14.6); RBC Distribution Width SD 53.6 fl (35.1-43.9); Red Blood Count 4.25 M/mm3 (4.6-6.2); White Blood Count 6.1 K/mm3 (4.4-11.0)
[2018-11-06 14:25] LABS: ALB/GLOB Ratio 0.9 RATIO (0.9-2.4); AST(SGOT) 25 U/L (15-37); Alanine Aminotransfer ALT/SGPT 56 U/L (16-61); Albumin, Serum 3.4 g/dL (3.2-5.0); Alkaline Phosphatase 123 U/L (45-117); Anion Gap 12 (5-15); BUN 35 mg/dL (7-18); BUN/Creat Ratio 16.4 RATIO (10-20); Calcium,Total 8.5 mg/dL (8.5-10.1); Chloride 92 mmol/L (98-107); Cholesterol 147 mg/dL (200); Creatinine, Serum 2.13 mg/dL (0.70-1.30); EST Glomerular Filtration Rate 33 mL/min (>60); Est Glom Filt Rate - Afr Amer 40 mL/min (>60); Globulin 3.7 g/dL (2.2-4.2); Glucose 213 mg/dL (74-106); High Density Lipoprotein 49 mg/dL; Potassium 3.2 mmol/L (3.5-5.1); Protein, Total 7.1 g/dL (6.4-8.2); Sodium Level 135 mmol/L (136-145); Triglycerides 141 mg/dL; Very Low Density Lipoprotein 28 mg/dL (5-40); Vitamin D,25 Hydroxy 35.1 ng/mL (29.95-100.01)
== END ==
PROVIDERS: Family Provider Family Medicine Geriatric Medicine; PCP Family Medicine Geriatric Medicine; Visit Provider Family Medicine Geriatric Medicine
DX: E55.9 Vitamin D deficiency, unspecified (principal); E78.5 Hyperlipidemia, unspecified; I10 Essential (primary) hypertension
CPT/HCPCS: 36415; 80053; 80061; 82306; 84443; 85025

== ENCOUNTER 2018-11-19 13:43 | Observation (INO) | payer MEDICARE, MEDICAID, SELFPAY ==
[2018-09-11 15:33] VITALS: BMI 37.0
[2018-11-19 13:44] VITALS: BP 122/66; PULSE 66; RESP 18; TEMP 36.6; O2SAT 91; BMI 34.1
[2018-11-19 14:23] VITALS: TEMP 36.4
--- NOTE | 2018-11-19 15:03 | ED.VISSUMM ---
- ER Visit Summary Date of Service: 11/19/18 Chief Complaint: Bilateral lower extremity redness History of Present Illness: The patient is a 68 M presenting with bilateral lower extremity redness. Patient states this worsened over the past couple of days. He has had blisters that have been draining. He is not currently on antibiotics. He states he has not seen the wound center for years. He was brought in by home health for worsening redness and swelling. He denies other complaints. History of amputation partial left foot, amputation right fifth toe. Physical Examination: Vitals are stable. Patient is afebrile. Alert no acute distress. HEENT exam is unremarkable. Neck is supple. Lungs are clear and equal bilaterally. Heart is regular rate and rhythm. Abdomen is soft nontender nondistended. Extremities bilateral lower extremity erythema, right anterior lower extremity wound with drainage. Right fourth toe area of necrosis. Skin is warm and dry. No focal neurologic deficit. Remainder of exam is unremarkable. Emergency Department Course and Treatment: CBC unremarkable. Chemistries show glucose 368, BUN 44, creatinine 1.87. CRP 29.5, ESR 50. Blood and wound cultures were sent. He was given Ancef IV. Discussed with the hospitalist for admission. Disposition: Admission Impression: Bilateral lower extremity cellulitis This note was generated with [employer] dictation software. It may contain incorrect words, spelling, and punctuation that were not noted in review of the chart prior to signing ED Disposition - Plan for ED Patient: Disposition: Acute Care [facility]
[2018-11-19 15:49] LABS: Absolute Lymphocyte Count 1.23 X10^3/ul (0.83-4.51); Absolute Neutrophil Count 4.1 X10^3/uL (2.0-7.7); Basophil# 0.04 X10^3/uL; Basophil% 0.6 % (0-1); Eosinophils% 4.9 % (0-5); Hematocrit 38.6 % (40-54); Hemoglobin 12.5 g/dl (13.0-16.5); Lymphocyte # 1.23 X10^3/ul (4.0); Lymphocyte % 19.9 % (19-41); Mean Corp Hgb Conc 32.4 g/gl (32-36); Mean Corpuscular Hgb 30.1 pg (27.0-32.0); Mean Platelet Vol. 10.2 fl (6.2-12.0); Monocyte# 0.52 X10^3/uL; Monocyte% 8.4 % (0-10); Neutrophil # 4.05 X10^3/uL (2.7-7.7); Neutrophil % 65.7 % (47-70); Platelet Count 286 K/mm3 (150-450); RBC Distribution Width SD 54.1 fl (35.1-43.9); Red Blood Count 4.15 M/mm3 (4.6-6.2); White Blood Count 6.2 K/mm3 (4.4-11.0)
[2018-11-19 15:56] LABS: POSITIVE COUNT NO; POSITIVE DIFFERENTIAL NO; POSITIVE MORPHOLOGY NO
[2018-11-19 16:09] LABS: Anion Gap 11 (5-15); BUN 44 mg/dL (7-18); BUN/Creat Ratio 23.5 RATIO (10-20); Calcium,Total 8.4 mg/dL (8.5-10.1); Chloride 96 mmol/L (98-107); Creatinine, Serum 1.87 mg/dL (0.70-1.30); EST Glomerular Filtration Rate 39 mL/min (>60); Est Glom Filt Rate - Afr Amer 47 mL/min (>60); Estimated Creatinine Clearance 40.12 ml/min; Glucose 368 mg/dL (74-106); Potassium 4.9 mmol/L (3.5-5.1); Sodium Level 136 mmol/L (136-145)
[2018-11-19 16:17] LABS: Erythrocyte Sedimentation Rate 50 mm/hr (0-20)
[2018-11-19] MEDS: Cefazolin 1 GM/50 ML BAG IV (16:47)
[2018-11-19 16:48] VITALS: TEMP 36.4
[2018-11-19 16:56] VITALS: BMI 34.1
--- NOTE | 2018-11-19 17:01 | NURSING ---
MED SURG PAINTSIL CELLULITIS
--- NOTE | 2018-11-19 17:05 | HP.PCM_ITS ---
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 transplanted heart: [place] heart Associated angina: without angina Qualified Code(s): I25.10 - Atherosclerotic heart disease of [place] coronary artery without angina pectoris (6) Sleep apnea Status: Chronic Qualifiers: Sleep apnea type: unspecified type Qualified Code(s): G47.30 - Sleep apnea, unspecified (7) Chronic kidney disease Status: Chronic Qualifiers: Chronic kidney disease stage: stage 3 (moderate) Qualified Code(s): N18.3 - Chronic kidney disease, stage 3 (moderate) (8) PAOD (peripheral arterial occlusive disease) Status: Chronic (9) GERD (gastroesophageal reflux disease) Status: Chronic Qualifiers: Esophagitis presence: esophagitis presence not specified Qualified Code(s): K21.9 - Gastro-esophageal reflux disease without esophagitis (10) Diabetic foot ulcers Status: Chronic Qualifiers: Diabetic foot ulcer location: unspecified part of foot Non-pressure ulcer stage: unspecified non-pressure ulcer stage History of Present Illness Date of Admission: 11/19/18 Chief Complaint: Bilateral leg swelling, worsening over the past 2 days The patient is a 68 year old M with past medical history of type II DM complicated by peripheral neuropathy, hypertension, CKD stage III, PAD, status post left TMA amputation, follows with Dr. Thomas, last seen in the wound center in September 2018. Patient lives alone and has home health that comes 5 times a week, 2 hours daily. He notices bilateral leg swelling, redness, with seeping discharge from blisters over his bilateral shins. His home health also noticed some chronic wound on the left plantar surface. Patient says all his wounds were healed at the time of discharge. He came to the ED at the insistence of his home health nurse. He denied any chest pain or dizziness or palpitations of fever or chills. Vitals in the ED showed temperature of 90 7.9F, heart rate 66, blood pressure 122/66, respiratory rate was 18, SPO2 was 91% on room air. His admitting blood work showed WBC 6.2, Hb 12.5, Plt 286, BMP shows sodium 136, potassium 4.9, chloride 96, BUN 44, creatinine 1.87, at his baseline. Past Medical History Past Medical History (Chronic Problems): Chronic Problems (Last Reviewed 08/16/18 @ 19:07 by Abran Garcia DO) Blister of left leg (Chronic) Subungual hematoma of toe of right foot (Chronic) Skin ulcer of third toe of right foot with fat layer exposed (Chronic) 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) Edema leg (Chronic) Hammertoe of right foot (Chronic) Corns and callosities (Chronic) Diabetes mellitus (Chronic) Non-pressure chronic ulcer of other part of left foot with fat layer exposed (Chronic) dorsal left medial foot Non-pressure chronic ulcer of other part of right foot with fat layer exposed (Chronic) PAD (peripheral artery disease) (Chronic) Diabetes mellitus with neuropathy (Chronic) CAD (coronary artery disease) (Chronic) Malnutrition (Chronic) Delayed wound healing (Chronic) Lower extremity edema (Chronic) Hypertension (Chronic) Hyperlipidemia (Chronic) Hypothyroidism (Chronic) Coronary artery disease (Chronic) Sleep apnea (Chronic) Chronic kidney disease (Chronic) PAOD (peripheral arterial occlusive disease) (Chronic) GERD (gastroesophageal reflux disease) (Chronic) Muscle spasm (Chronic) Osteomyelitis of left foot (Chronic) Type 2 diabetes mellitus with diabetic polyneuropathy (Chronic) Pulmonary hypertension (Chronic) Obstructive sleep apnea (Chronic) Morbid obesity (Chronic) Non compliance with medical treatment (Chronic) Diabetic foot ulcers (Chronic) Aortocoronary bypass status (Chronic) Type II diabetes mellitus, uncontrolled (Chronic) History of esophageal reflux (Chronic) History of hyperlipidemia (Chronic) History of hypertension (Chronic) History of hypothyroidism (Chronic) Macular infarction (Chronic) Peripheral vascular disease (Chronic) Medical History: Medical History (Last Reviewed 08/16/18 @ 19:07 by Abran Garcia DO) Abdominal pain (Acute) R10.9 Abdominal distension (Acute) R14.0 Sepsis (Acute) A41.9 Osteomyelitis of foot (Acute) M86.9 Diabetes mellitus (Chronic) E11.9 Osteomyelitis of right foot (Acute) M86.9 Chronic ulcer of left foot with fat layer exposed (Resolved) L97.522 dorsal foot Hammer toe of right foot (Acute) M20.41 Non-pressure chronic ulcer of other part of left foot with fat layer exposed (Chronic) L97.522 dorsal left medial foot Non-pressure chronic ulcer of other part of right foot with fat layer exposed (Chronic) L97.512 PAD (peripheral artery disease) (Chronic) I73.9 Diabetes mellitus with neuropathy (Chronic) E11.40 Cellulitis of left foot (Acute) L03.116 Cellulitis of right foot (Acute) L03.115 Severe sepsis (Acute) A41.9, R65.20 CAD (coronary artery disease) (Chronic) I25.10 Malnutrition (Chronic) E46 Delayed wound healing (Chronic) T14.8 Lower extremity edema (Chronic) R60.0 Chronic ulcer of left foot with fat layer exposed (Resolved) L97.522 left plantar foot DFU Ulcer of right foot with fat layer exposed (Resolved) L97.512 Hypertension (Chronic) I10 Hyperlipidemia (Chronic) E78.5 Hypothyroidism (Chronic) E03.9 Coronary artery disease (Chronic) I25.10 Sleep apnea (Chronic) G47.30 Chronic kidney disease (Chronic) N18.9 PAOD (peripheral arterial occlusive disease) (Chronic) I77.9 GERD (gastroesophageal reflux disease) (Chronic) K21.9 Muscle spasm (Chronic) M62.838 Osteomyelitis of left foot (Chronic) M86.9 Type 2 diabetes mellitus with diabetic polyneuropathy (Chronic) E11.42 Cellulitis of left foot (Acute) L03.116 Pulmonary hypertension (Chronic) I27.2 Obstructive sleep apnea (Chronic) G47.33 Morbid obesity (Chronic) E66.01 Non compliance with medical treatment (Chronic) Z91.19 Diabetic foot ulcers (Chronic) E11.621, L97.509 Type II diabetes mellitus, uncontrolled (Chronic) E11.65 History of esophageal reflux (Chronic) Z87.19 History of hyperlipidemia (Chronic) Z86.39 Hiatal hernia K44.9 Allergies adhesive Allergy (Verified 08/16/18 14:57) SKIN GETS PULLED OFF SKIN GETS PULLED OFF latex Allergy (Verified 08/16/18 14:57) Hives Home Medications: Ambulatory Orders Medication Instructions Recorded Clopidogrel Bisulfate [Plavix] 75 mg PO DAILY 05/15/13 Levothyroxine [Synthroid] 200 mcg PO DAILY 05/15/13 Metoprolol Tartrate [Lopressor 50 mg PO BID 05/15/13 (beta ramo)] Atorvastatin Calcium [Lipitor] 80 mg PO QHS 01/12/16 Pantoprazole Sodium [Protonix] 20 mg PO DAILY 01/12/16 Iron Polysaccharide Complex 150 mg PO DAILYCM #30 cap 09/07/17 [Ferrex 150] Linagliptin [Tradjenta] 5 mg PO DAILY #30 tab 09/07/17 Aspirin E.C. [Ecotrin] 81 mg PO DAILY@0800 01/16/18 Fluticasone 0.05% [Flonase Nasal 1 spray NASAL DAILY 01/16/18 [place]] Meclizine HCl 25 mg PO TID 01/16/18 Baclofen 10 mg PO TID 08/16/18 Pioglitazone HCl 30 mg PO DAILY 08/16/18 Plecanatide [Trulance] 3 mg PO DAILY 08/16/18 Insulin Glargine [Lantus SoloStar 60 units SC BID 08/25/18 Pen] Furosemide [Lasix] 80 mg PO BIDLX 11/19/18 Insulin Aspart [Novolog Flexpen 6 - 30 units SC TIDCM 11/19/18 ([facility])] Lisinopril 2.5 mg PO DAILY 11/19/18 Metolazone 2.5 mg PO BID 11/19/18 Surgical History: Surgical History (Last Reviewed 08/16/18 @ 19:07 by Abran Garcia DO) Aortocoronary bypass status (Chronic) Z95.1 History brain urgery History of Gallbladder removal Surgical History: angioplasty, cholecystectomy, coronary bypass surgery, - Psychiatric History: No pertinent psych hx Smoking Status: Never smoker Tobacco Use: Non-smoker Alcohol: None, Occasional Drugs: None - *Family History Paternal Family History: Family History (Last Reviewed 08/16/18 @ 19:08 by Abran Garcia DO) Grandfather Diabetes Heart disease Hypertension High blood cholesterol CVA (cerebral vascular accident) Son Thyroid disorder History Items: No pertinent history Maternal Family History: Family History (Last Reviewed 08/16/18 @ 19:08 by Abran Garcia DO) Grandfather Diabetes Heart disease Hypertension High blood cholesterol CVA (cerebral vascular accident) Son Thyroid disorder History Items: - Review of Systems Constitutional: Reports: Weight Change - gained weight. Denies: Anorexia, Chills, Fever, Malaise, Weakness Eyes: Denies: Blurred vision, Cataracts, Conjunctivae Inflammation, Double vision, Pain, Redness HEENT: Denies: Head Aches, Hearing Changes, Sinus Congestion, Sinus Drainage Cardiovascular: Denies: Chest Pain, Claudication, Orthopnea, Palpitations, Paroxysmal Noc. Dyspnea Respiratory: Denies: Cough, Hemoptysis, Shortness of breath at rest, Shortness of breath upon exertion, Sputum production Gastrointestinal: Denies: Abdominal Pain, Hematemesis, Hematochezia, Nausea, Vomiting Genitourinary: Denies: Dysuria, Frequency Musculoskeletal: Denies: Joint Pain, Joint stiffness, Joint swelling, Joint Tenderness Skin: Reports: Skin Changes. Denies: Wounds Neurological: Denies: Numbness, Tingling, Focal weakness Psychiatric: Denies: Anxiety, Depression, Homicidal Ideations, Suicidal Ideations Hematologic/ Lymphatic: Denies: Easy Bruising, Easy Bleeding VTE Information - Inpt Only VTE Present on Admission: No VTE Pharm Prophylaxis ordered?: Yes - Physical Exam General: Alert, Oriented x3, Cooperative, No apparent distress, - - Obese, comfortable, not pale or jaundiced HEENT: Atraumatic, PERRLA, EOMI, Normocephalic Oral: Moist Mucosa Neck: Supple Lungs: Clear to auscultation, Normal air movement Cardiovascular: Regular rate, Regular Rhythm, Normal S1, Normal S2, No murmurs Abdomen: Bowel Sounds Present, Soft, Non Tender, No Hepato-splenomegaly, Distended, Obese Extremities: Edema - bilateral +4 edema bilaterally with blisters anteriorly, erythema of both shinsright 4th and 5th toes arterial emboli, left TMA with chronic calloused ulcer on the left plantar surface Skin: No rashes, No breakdown Musculoskeletal: No Tenderness to Palpation of Joints or Extremities Lymphatic: No Cervical, Supraclavicular, or Inguinal Adenopathy Neurological: Cranial nerves II-XII grossly intact, Neuro grossly intact Psych/Mental Status: Normal Affect, Appropriate Vital Signs Temp Pulse Resp BP Pulse Ox 97.6 F L 66 18 122/66 H 91 11/19/18 16:48 11/19/18 13:44 11/19/18 13:44 11/19/18 13:44 11/19/18 13:44 Oxygen Delivery Method Room Air Weight: 107.955 kg Body Mass Index (BMI) 34.1 Finger Stick Blood Glucose 91 Laboratory Tests Past 24 Hrs 11/19/18 11/19/18 14:20 14:20 WBC 6.2 RBC 4.15 L Hgb 12.5 L Hct 38.6 L MCV 93.0 MCH 30.1 MCHC 32.4 RDW 16.0 H RDW Differential 54.1 H Plt Count 286 MPV 10.2 Immature Gran % (Auto) 0.500 Neut % (Auto) 65.7 Lymph % (Auto) 19.9 [place] % (Auto) 8.4 Eos % (Auto) 4.9 Baso % (Auto) 0.6 Absolute Neuts (auto) 4.1 Absolute Lymphs (auto) 1.23 Total Counted Not Reportable ESR 50 H Sodium 136 Potassium 4.9 Chloride 96 L Carbon Dioxide 29.0 Anion Gap 11 BUN 44 H Creatinine 1.87 H Estim Creat Clear Calc 40.12 Est GFR (MDRD) Af Amer 47 L Est GFR (MDRD) Non-Af 39 L BUN/Creatinine Ratio 23.5 H Glucose 368 H Calcium 8.4 L C-React Prot Ext Range 29.50 H Assessment/Plan All Active Problems (Last Reviewed 08/16/18 @ 19:07 by Abran Garcia DO) Diabetic ulcer of toe of right foot associated with diabetes mellitus due to underlying condition (Acute) Diabetic ulcer of right foot with bone involvement without evidence of necrosis (Acute) Anasarca (Acute) GENE (acute kidney injury) (Acute) Abdominal pain (Acute) Abdominal distension (Acute) Sepsis (Acute) Osteomyelitis of foot (Acute) Osteomyelitis of right foot (Acute) Chronic ulcer of left foot with fat layer exposed (Resolved) Hammer toe of right foot (Acute) Cellulitis of left foot (Acute) Cellulitis of right foot (Acute) Severe sepsis (Acute) Chronic ulcer of left foot with fat layer exposed (Resolved) Ulcer of right foot with fat layer exposed (Resolved) Cellulitis of left foot (Acute) Syncopal episodes (Resolved) 68 year old M with past medical history of type II DM complicated by peripheral neuropathy, hypertension, CKD stage III, PAD, status post left TMA amputation, follows with Dr. Thomas, last seen in the wound center in September 2018 who comes in with worsening weight gain, bilateral lower extremity swelling, erythema, with blisters and seeping drainage. 1. Bilateral lower extremity cellulitis secondary to acute on chronic venous stasis secondary to acute on chronic diastolic CHF No sepsis present on admission. Plan: Admit to [facility] floor, elevate extremity, IV Unasyn, CHF protocol 2. Acute on chronic diastolic CHF exacerbation, patient is on p.o. Lasix and metolazone Will continue with IV Lasix and metolazone, strict CHF, fluid restriction, CHF protocol 3. Acute on chronic okay leg ulcers, arterial emboli of the right fourth and fifth toes, History of PAD, Podiatry consulted, wound RN consult 4. Type II DM complicated by peripheral neuropathy, on insulin, will continue same 5. Obesity, BMI 37.2 6. DVT PPx- Heparin SC Code Visit Inpatient E&M: 39856 Init Hosp L3
--- NOTE | 2018-11-19 17:22 | NURSING ---
DR SANTANA IN ER
--- NOTE | 2018-11-19 17:53 | CASEMGMT ---
RN CM Assessment Introduced role of RN CM to patient.? Patient is alert, oriented and able?to participate in RN CM Assessment. ?Care providers, pharmacy, and demographics verified. Presentation: Redness, Drainage, & Increased Swelling to BLE Admit Dx: Cellulitis Re-Admit: No, Inpt 08/16-08/18/18 for GENE, ER 08/25/18 for Hypoglycemia Barriers/Issues: Patient lives alone, has an Aide with [employer] 5days/week for 2hrs/day that helps with laundry/housework. States that his Abd has been large for many years but getting worse making it difficult getting his socks on and gets SOB with light exertion. Told years ago has HF but states has not f/u with Dr Light in awhile, not sure if needing to be on fluid restriction and is on two diuretics, states will get dehydrated easy, appears non-compliant. This Cm educated on HF and encouraged patient to have close f/u with Dr Light for HF management. H/o DM with toe amputations to Left foot, encouraged patient to purchase extended mirror to check feet and f/u with Process Inspector regularly. Patient states understanding. PCP: Johnathan Batres Chi Specialists: Pod- Dr Thomas, Cardio- Dr Light, Ophth-Dr Lima Preferred [facility]acy: [facility] Insurance: [employer] [facility] [employer] [facility] Rx Benefit:?Yes LNOK: Aunt & Uncle Rachelle and Michael Valdivia LW/HPOA: Yes HPOA on file at [facility] and is his sister Lorena Dao Living Arrangements:?Lives alone with his cat in a 6th fl apartment w/elevator. No steps to enter. ADL?s: Ambulates with Rollator, Independent with ADL's Transportation: Patient drives and drove self to the hospital, plans to drive home upon DC DME: Shower Bench, Grab Bars, Glucometer HHC: Aide with [employer] SNF: Past- Cannot recall name of facility and states worse experience I ever had. Does not wish to fo to a SNF. Goal: Home, does not think will have any additional needs but is open to HH if recommended with no preference on HHC Agency. Open to being educated on Home IV Abx if recommended, states had to give himself Abx injections in the past. DC PLAN: Home with possible HH RN for wound care and/or IV Abx. Tiffanie Montano RNCM
[2018-11-19 18:31] VITALS: BP 134/71; PULSE 78; RESP 18; TEMP 36.6; O2SAT 91; BMI 37.2
[2018-11-19] MEDS: Furosemide 40 MG/4 ML Vial IV (20:04)
[2018-11-19] MEDS: 0.9% NaCl Peripheral Flush Adult/Peds IV (20:04)
--- NOTE | 2018-11-19 21:32 | ART_ITS ---
Reason For Study: PVD Procedure A bilateral lower extremity continuous wave Doppler with analog waveform analysis,segmental pressures,and ankle brachial indexes without exercise. Left Segmental Pressures Left brachial= 121mmHg. Left thigh = >254mmHg. Left calf = 90mmHg. Left posterior tibial artery = 68mmHg. The left posterior tibial artery waveforms are biphasic. Right Segmental Pressures Right radial= 123mmHg. Right thigh = 152mmHg. Right calf = 102mmHg. Right posterior tibial artery = 51mmHg. Right dorsalis pedis artery = 99mmHg. The right dorsalis pedis waveforms are monophasic. The right posterior tibial artery waveforms are biphasic. Indices The right ankle brachial index by the dorsalis pedis is 0.80. The right ankle brachial index by the posterior tibial artery is 0.41. The left ankle brachial index by the posterior tibial artery is 0.55. Interpretation Summary Biphasic and monophasic Doppler waveforms are noted at ankle level on the right. Biphasic Doppler waveform is noted at ankle level on the left. Pulse-volume recording waveform amplitudes appear diminished at calf, ankle, and digital levels. Resting ankle-brachial indices are moderately diminished bilaterally. There is evidence of moderate arterial occlusive disease in the lower extremities bilaterally, with more severe occlusive disease in angiosomal distributions of the right lower extremity. Ordering Physician: Shy Wharton Referring Physician: Johnathan Batres Chi Performed By: Suzy Ta RVT
[2018-11-19 22:46] VITALS: BP 126/54; PULSE 80; RESP 18; TEMP 36.4; O2SAT 94
[2018-11-19 22:50] VITALS: PULSE 80
[2018-11-19] MEDS: Baclofen 10 MG Tablet PO (22:50)
[2018-11-19] MEDS: Metoprolol Tartrate 50 MG Tablet PO (22:50)
[2018-11-19] MEDS: Atorvastatin Calcium 80 MG Tablet PO (22:50)
[2018-11-19] MEDS: Heparin Injection (Vial) 5,000 UNIT/ML VIAL 5000 UNIT SC (22:50)
[2018-11-19 23:01] LABS: Bedside Glucose 489 mg/dL (70-110)
[2018-11-19] MEDS: Insulin Lispro 100 UNIT/ML INSULN.PEN 16 UNIT SC (23:17)
[2018-11-19] MEDS: Meclizine HCl 25 MG Tablet PO (23:26)
[2018-11-20] MEDS: Insulin Lispro 100 UNIT/ML INSULN.PEN SQ ×5 (02:49→23:29)
[2018-11-20 02:52] VITALS: BP 108/49; PULSE 64; RESP 18; TEMP 36.5; O2SAT 93
[2018-11-20 03:01] LABS: Bedside Glucose 367 mg/dL (70-110)
[2018-11-20 06:02] LABS: Absolute Lymphocyte Count 1.04 X10^3/ul (0.83-4.51); Absolute Neutrophil Count 3.8 X10^3/uL (2.0-7.7); Basophil# 0.05 X10^3/uL; Basophil% 0.8 % (0-1); Eosinophil# 0.27 X10^3/uL; Eosinophils% 4.5 % (0-5); Hematocrit 38.4 % (40-54); Hemoglobin 12.4 g/dl (13.0-16.5); Lymphocyte # 1.04 X10^3/ul (4.0); Lymphocyte % 17.3 % (19-41); Mean Corp Hgb Conc 32.3 g/gl (32-36); Mean Corpuscular Hgb 29.8 pg (27.0-32.0); Mean Corpuscular Volume 92.3 fL (80-94); Mean Platelet Vol. 10.3 fl (6.2-12.0); Monocyte% 13.3 % (0-10); Neutrophil # 3.82 X10^3/uL (2.7-7.7); Neutrophil % 63.6 % (47-70); Platelet Count 282 K/mm3 (150-450); RBC Distribution Width CV 15.9 % (11.6-14.6); RBC Distribution Width SD 51.6 fl (35.1-43.9); Red Blood Count 4.16 M/mm3 (4.6-6.2)
[2018-11-20 06:05] LABS: ALB/GLOB Ratio 0.6 RATIO (0.9-2.4); AST(SGOT) 46 U/L (15-37); Alanine Aminotransfer ALT/SGPT 71 U/L (16-61); Albumin, Serum 2.7 g/dL (3.2-5.0); Alkaline Phosphatase 126 U/L (45-117); Anion Gap 10 (5-15); BUN 47 mg/dL (7-18); BUN/Creat Ratio 23.5 RATIO (10-20); Calcium,Total 8.8 mg/dL (8.5-10.1); Chloride 98 mmol/L (98-107); EST Glomerular Filtration Rate 36 mL/min (>60); Est Glom Filt Rate - Afr Amer 43 mL/min (>60); Estimated Creatinine Clearance 37.51 ml/min; Globulin 4.5 g/dL (2.2-4.2); Glucose 235 mg/dL (74-106); POSITIVE COUNT NO; POSITIVE DIFFERENTIAL NO; POSITIVE MORPHOLOGY NO; Potassium 3.9 mmol/L (3.5-5.1); Protein, Total 7.2 g/dL (6.4-8.2); Sodium Level 138 mmol/L (136-145)
--- NOTE | 2018-11-20 06:14 | NURSING ---
Attempted to call to consult Dr. Gutierrez via spray painting machine operator, but Dr. Segovia is covering at this time. Per spray painting machine operator, she is unable to contact Dr. Gutierrez for a consult at this hour since he is not on, and he can be consulted once his office hours begin.
[2018-11-20] MEDS: Levothyroxine 100 MCG Tablet 200 MCG PO (06:40)
[2018-11-20] MEDS: Meclizine HCl 25 MG Tablet PO ×3 (06:40→22:52)
[2018-11-20] MEDS: Heparin Injection (Vial) 5,000 UNIT/ML VIAL 5000 UNIT SC ×3 (06:40→22:53)
[2018-11-20] MEDS: Baclofen 10 MG Tablet PO ×3 (06:40→22:52)
--- NOTE | 2018-11-20 06:42 | PCM.CONS.GEN ---
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 Patient is well known to Dr. Thomas. Patient was admitted through ER last evening for bilateral swelling to lower legs with some venous stasis weeping noted. Patient states he had noticed the legs swelling a little more each day for about the last 3 days. He says he no longer has home health coming each day and that he had been unable to get his tubigrips on his legs for compression. Patient relates he feels much better today than yesterday. Patient currently denies any feelings of nausea, vomiting, fever, or chills. Patient does have an appetite. 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) Edema leg (Chronic) Hammertoe of right foot (Chronic) Corns and callosities (Chronic) Diabetes mellitus (Chronic) Non-pressure chronic ulcer of other part of left foot with fat layer exposed (Chronic) dorsal left medial foot Non-pressure chronic ulcer of other part of right foot with fat layer exposed (Chronic) PAD (peripheral artery disease) (Chronic) Diabetes mellitus with neuropathy (Chronic) CAD (coronary artery disease) (Chronic) Malnutrition (Chronic) Delayed wound healing (Chronic) Lower extremity edema (Chronic) Hypertension (Chronic) Hyperlipidemia (Chronic) Hypothyroidism (Chronic) Coronary artery disease (Chronic) Sleep apnea (Chronic) Chronic kidney disease (Chronic) PAOD (peripheral arterial occlusive disease) (Chronic) GERD (gastroesophageal reflux disease) (Chronic) Muscle spasm (Chronic) Osteomyelitis of left foot (Chronic) Type 2 diabetes mellitus with diabetic polyneuropathy (Chronic) Pulmonary hypertension (Chronic) Obstructive sleep apnea (Chronic) Morbid obesity (Chronic) Non compliance with medical treatment (Chronic) Diabetic foot ulcers (Chronic) Aortocoronary bypass status (Chronic) Type II diabetes mellitus, uncontrolled (Chronic) History of esophageal reflux (Chronic) History of hyperlipidemia (Chronic) History of hypertension (Chronic) History of hypothyroidism (Chronic) Macular infarction (Chronic) Peripheral vascular disease (Chronic) Medical History: Medical History (Last Reviewed 08/16/18 @ 19:07 by Abran Garcia DO) Abdominal pain (Acute) R10.9 Abdominal distension (Acute) R14.0 Sepsis (Acute) A41.9 Osteomyelitis of foot (Acute) M86.9 Diabetes mellitus (Chronic) E11.9 Osteomyelitis of right foot (Acute) M86.9 Chronic ulcer of left foot with fat layer exposed (Resolved) L97.522 dorsal foot Hammer toe of right foot (Acute) M20.41 Non-pressure chronic ulcer of other part of left foot with fat layer exposed (Chronic) L97.522 dorsal left medial foot Non-pressure chronic ulcer of other part of right foot with fat layer exposed (Chronic) L97.512 PAD (peripheral artery disease) (Chronic) I73.9 Diabetes mellitus with neuropathy (Chronic) E11.40 Cellulitis of left foot (Acute) L03.116 Cellulitis of right foot (Acute) L03.115 Severe sepsis (Acute) A41.9, R65.20 CAD (coronary artery disease) (Chronic) I25.10 Malnutrition (Chronic) E46 Delayed wound healing (Chronic) T14.8 Lower extremity edema (Chronic) R60.0 Chronic ulcer of left foot with fat layer exposed (Resolved) L97.522 left plantar foot DFU Ulcer of right foot with fat layer exposed (Resolved) L97.512 Hypertension (Chronic) I10 Hyperlipidemia (Chronic) E78.5 Hypothyroidism (Chronic) E03.9 Coronary artery disease (Chronic) I25.10 Sleep apnea (Chronic) G47.30 Chronic kidney disease (Chronic) N18.9 PAOD (peripheral arterial occlusive disease) (Chronic) I77.9 GERD (gastroesophageal reflux disease) (Chronic) K21.9 Muscle spasm (Chronic) M62.838 Osteomyelitis of left foot (Chronic) M86.9 Type 2 diabetes mellitus with diabetic polyneuropathy (Chronic) E11.42 Cellulitis of left foot (Acute) L03.116 Pulmonary hypertension (Chronic) I27.2 Obstructive sleep apnea (Chronic) G47.33 Morbid obesity (Chronic) E66.01 Non compliance with medical treatment (Chronic) Z91.19 Diabetic foot ulcers (Chronic) E11.621, L97.509 Type II diabetes mellitus, uncontrolled (Chronic) E11.65 History of esophageal reflux (Chronic) Z87.19 History of hyperlipidemia (Chronic) Z86.39 Hiatal hernia K44.9 Allergies adhesive Allergy (Verified 08/16/18 14:57) SKIN GETS PULLED OFF SKIN GETS PULLED OFF latex Allergy (Verified 08/16/18 14:57) Hives Home Medications: Ambulatory Orders Medication Instructions Recorded Clopidogrel Bisulfate [Plavix] 75 mg PO DAILY 05/15/13 Levothyroxine [Synthroid] 200 mcg PO DAILY 05/15/13 Metoprolol Tartrate [Lopressor 50 mg PO BID 05/15/13 (beta ramo)] Atorvastatin Calcium [Lipitor] 80 mg PO QHS 01/12/16 Pantoprazole Sodium [Protonix] 20 mg PO DAILY 01/12/16 Iron Polysaccharide Complex 150 mg PO DAILYCM #30 cap 09/07/17 [Ferrex 150] Linagliptin [Tradjenta] 5 mg PO DAILY #30 tab 09/07/17 Aspirin E.C. [Ecotrin] 81 mg PO DAILY@0800 01/16/18 Fluticasone 0.05% [Flonase Nasal 1 spray NASAL DAILY 01/16/18 [place]] Meclizine HCl 25 mg PO TID 01/16/18 Baclofen 10 mg PO TID 08/16/18 Pioglitazone HCl 30 mg PO DAILY 08/16/18 Plecanatide [Trulance] 3 mg PO DAILY 08/16/18 Insulin Glargine [Lantus SoloStar 60 units SC BID 08/25/18 Pen] Furosemide [Lasix] 80 mg PO BIDLX 11/19/18 Insulin Aspart [Novolog Flexpen 6 - 30 units SC TIDCM 11/19/18 ([facility])] Lisinopril 2.5 mg PO DAILY 11/19/18 Metolazone 2.5 mg PO BID 11/19/18 Surgical History: Surgical History (Last Reviewed 08/16/18 @ 19:07 by Abran Garcia DO) Aortocoronary bypass status (Chronic) Z95.1 History brain urgery History of Gallbladder removal Surgical History: angioplasty, cholecystectomy, coronary bypass surgery, - Psychiatric History: No pertinent psych hx Smoking Status: Never smoker Tobacco Use: Non-smoker Alcohol: None, Occasional Drugs: None - *Family History Paternal Family History: Family History (Last Reviewed 08/16/18 @ 19:08 by Abran Garcia DO) Grandfather Diabetes Heart disease Hypertension High blood cholesterol CVA (cerebral vascular accident) Son Thyroid disorder History Items: No pertinent history Maternal Family History: Family History (Last Reviewed 08/16/18 @ 19:08 by Abran Garcia DO) Grandfather Diabetes Heart disease Hypertension High blood cholesterol CVA (cerebral vascular accident) Son Thyroid disorder History Items: - Review of Systems Constitutional: Denies: Chills, Fever, Weight Change Cardiovascular: Denies: Chest Pain, Palpitations Respiratory: Denies: Cough, Shortness of breath at rest, Sputum production Gastrointestinal: Denies: Abdominal Pain, Nausea, Vomiting Musculoskeletal: Denies: Joint stiffness, Joint swelling, Joint Tenderness Skin: Reports: Skin Changes - Physical Exam General: Alert, Oriented x3, Cooperative, No apparent distress Extremities: Capillary Refill Less than 3 Seconds - to toes 1-4 of right foot and to distal tma site on left, No Calf Tenderness - negative tre and villagomez signs bilateral, Diminished Peripheral Pulses, Edema - bilateral lower extremity edema Skin: - - Small right anterior barlow and left posterior calf venous stasis openings to skin with some minor serous drainage noted. No purulence, probing to bone, tracking, or undermining noted. No significant increased warmth to lower legs. Erythema noted to lower legs between ankles and knees bilateral. He feels this has resolved since yesterday slightly already. Patient also has callus to very distal dorsolateral aspect of right 4th toe with stable well edhered eschar to area. No surrounding signs of local infection noted to toes. Patient also has callus buildup with some scant dried blood noted to plantar left foot. No ulcer noted under the callus ad no surrounding signs of infection appreciated. Musculoskeletal: No Tenderness to Palpation of Joints or Extremities Neurological: - - epicritic sensation grossly absent to lower extremities Psych/Mental Status: Normal Affect, Appropriate Vital Signs Temp Pulse Resp BP Pulse Ox 97.7 F L 64 18 108/49 L 93 11/20/18 02:52 11/20/18 02:52 11/20/18 02:52 11/20/18 02:52 11/20/18 02:52 Oxygen Delivery Method Room Air Weight: 117.7 kg Body Mass Index (BMI) 37.2 Finger Stick Blood Glucose 91 Intake and Output for Last 24 Hours 11/18/18 11/19/18 11/20/18 23:59 23:59 23:59 Intake Total 1022 / 1022 Output Total 900 / 900 Balance 122 / 122 Laboratory Tests Past 24 Hrs 11/19/18 11/19/18 11/20/18 14:20 14:20 05:10 WBC 6.2 6.0 RBC 4.15 L 4.16 L Hgb 12.5 L 12.4 L Hct 38.6 L 38.4 L MCV 93.0 92.3 MCH 30.1 29.8 MCHC 32.4 32.3 RDW 16.0 H 15.9 H RDW Differential 54.1 H 51.6 H Plt Count 286 282 MPV 10.2 10.3 Immature Gran % (Auto) 0.500 0.500 Neut % (Auto) 65.7 63.6 Lymph % (Auto) 19.9 17.3 L Mellette % (Auto) 8.4 13.3 H Eos % (Auto) 4.9 4.5 Baso % (Auto) 0.6 0.8 Absolute Neuts (auto) 4.1 3.8 Absolute Lymphs (auto) 1.23 1.04 Total Counted Not Reportable Not Reportable ESR 50 H Sodium 136 Potassium 4.9 Chloride 96 L Carbon Dioxide 29.0 Anion Gap 11 BUN 44 H Creatinine 1.87 H Estim Creat Clear Calc 40.12 Est GFR (MDRD) Af Amer 47 L Est GFR (MDRD) Non-Af 39 L BUN/Creatinine Ratio 23.5 H Glucose 368 H Calcium 8.4 L Total Bilirubin AST ALT Alkaline Phosphatase C-React Prot Ext Range 29.50 H Total Protein Albumin Globulin Albumin/Globulin Ratio 11/20/18 05:10 WBC RBC Hgb Hct MCV MCH MCHC RDW RDW Differential Plt Count MPV Immature Gran % (Auto) Neut % (Auto) Lymph % (Auto) Mellette % (Auto) Eos % (Auto) Baso % (Auto) Absolute Neuts (auto) Absolute Lymphs (auto) Total Counted ESR Sodium 138 Potassium 3.9 Chloride 98 Carbon Dioxide 30.0 Anion Gap 10 BUN 47 H Creatinine 2.00 H Estim Creat Clear Calc 37.51 Est GFR (MDRD) Af Amer 43 L Est GFR (MDRD) Non-Af 36 L BUN/Creatinine Ratio 23.5 H Glucose 235 H Calcium 8.8 Total Bilirubin 0.40 AST 46 H ALT 71 H Alkaline Phosphatase 126 H C-React Prot Ext Range Total Protein 7.2 Albumin 2.7 L Globulin 4.5 H Albumin/Globulin Ratio 0.6 L POC Glucose 11/20/18 11/19/18 02:47 22:45 POC Glucose 367 H 489 H* Assessment/Plan All Active Problems (Last Reviewed 08/16/18 @ 19:07 by Abran Garcia DO) Diabetic ulcer of toe of right foot associated with diabetes mellitus due to underlying condition (Acute) Diabetic ulcer of right foot with bone involvement without evidence of necrosis (Acute) Anasarca (Acute) GENE (acute kidney injury) (Acute) Abdominal pain (Acute) Abdominal distension (Acute) Sepsis (Acute) Osteomyelitis of foot (Acute) Osteomyelitis of right foot (Acute) Chronic ulcer of left foot with fat layer exposed (Resolved) Hammer toe of right foot (Acute) Cellulitis of left foot (Acute) Cellulitis of right foot (Acute) Severe sepsis (Acute) Chronic ulcer of left foot with fat layer exposed (Resolved) Ulcer of right foot with fat layer exposed (Resolved) Cellulitis of left foot (Acute) Syncopal episodes (Resolved) Venous stasis opening to bilateral lower legs cellulitis DM with neuropathy other comorbidities This patient was carefully examined and evaluated resting comfortably in bedside chair this morning with legs elevated. Vital signs stable. WBC 6.0. Wound cultures taken last evening still pending. Blood cultures still pending. Patient currently on IV antibiotics. Dressings taken down and lower extremities were carefully evaluated. Small openings to right anterior barlow and left posterior calf covered with adaptic, followed by 4x4s, abds, kerlix, and duane bandages. Nursing can reinforce dressings as necessary. Stable non infected well adhered eschar to right 4th toe painted with betadine and covered with 2x2. Patient to be weight bearing with bilateral surgical shoes to keep pressure from toes. Patient to keep lower extremities elevated at all times seated or laying down. Medical management and dvt prophylaxis by medical staff is appreciated. Podiatry can continue to follow this patient while in house. Upon discharge, this patient says he would like to follow up with Dr. Thomas as he has been with her for a long time.
[2018-11-20 06:51] LABS: Bedside Glucose 177 mg/dL (70-110)
[2018-11-20] MEDS: 0.9% NaCl Peripheral Flush Adult/Peds IV ×3 (06:58→17:38)
[2018-11-20] MEDS: 0.9% NaCl IVPB Med Flush (250 mL) 15 ML IV (06:59)
--- NOTE | 2018-11-20 09:08 | PCM.PN.HOSP ---
Subjective: Feels better today, though he still has a little bit of discomfort in his calf on palpation. No acute events overnight however he would like to stay another day Vitals/I&O's: Vital Signs Temp Pulse Resp BP Pulse Ox 97.7 F L 64 18 108/49 L 93 11/20/18 02:52 11/20/18 02:52 11/20/18 02:52 11/20/18 02:52 11/20/18 02:52 Oxygen Delivery Method Room Air Weight: 254 lb 6.615 oz Body Mass Index (BMI) 37.2 Finger Stick Blood Glucose 91 Intake and Output for Last 24 Hours 11/18/18 11/19/18 11/20/18 23:59 23:59 23:59 Intake Total 1022 / 1022 150 / 150 Output Total 900 / 900 1050 / 1050 Balance 122 / 122 -900 / -900 General: Alert, Oriented x3, Cooperative, No apparent distress HEENT: Atraumatic, PERRLA, EOMI, Normocephalic Oral: Moist Mucosa Neck: Supple, No JVD Lungs: Clear to auscultation, Normal air movement, No rhonchi, No wheeze, No rales, Diminished Cardiovascular: Regular rate, Regular Rhythm, Normal S1, Normal S2, No murmurs Abdomen: Soft, Non Tender, Non-Distended, No Hepato-splenomegaly, Obese Extremities: Capillary Refill Less than 3 Seconds, Edema - 3+ bilateral edema, little bit improved with Ronak wrapping Skin: - - Erythema of both anterior tibia with a callused ulcer on the left plantar surface Neurological: Deep Tendon Reflexes 2+/4 and Symmetrical, Sensory exam intact to light touch and pain Psych/Mental Status: Normal Affect, Appropriate Laboratory Results 11/19/18 14:20: WBC 6.2, RBC 4.15 L, Hgb 12.5 L, Hct 38.6 L, MCV 93.0, MCH 30.1, MCHC 32.4, RDW 16.0 H, RDW Differential 54.1 H, Plt Count 286, MPV 10.2, Immature Gran % (Auto) 0.500, Neut % (Auto) 65.7, Lymph % (Auto) 19.9, [place] % (Auto) 8.4, Eos % (Auto) 4.9, Baso % (Auto) 0.6, Absolute Neuts (auto) 4.1, Absolute Lymphs (auto) 1.23, Total Counted Not Reportable, ESR 50 H 11/19/18 14:20: Sodium 136, Potassium 4.9, Chloride 96 L, Carbon Dioxide 29.0, Anion Gap 11, BUN 44 H, Creatinine 1.87 H, Estim Creat Clear Calc 40.12, Est GFR (MDRD) Af Amer 47 L, Est GFR (MDRD) Non-Af 39 L, BUN/Creatinine Ratio 23.5 H, Glucose 368 H, Calcium 8.4 L, C-React Prot Ext Range 29.50 H 11/19/18 22:45: POC Glucose 489 H* 11/20/18 02:47: POC Glucose 367 H 11/20/18 05:10: WBC 6.0, RBC 4.16 L, Hgb 12.4 L, Hct 38.4 L, MCV 92.3, MCH 29.8, MCHC 32.3, RDW 15.9 H, RDW Differential 51.6 H, Plt Count 282, MPV 10.3, Immature Gran % (Auto) 0.500, Neut % (Auto) 63.6, Lymph % (Auto) 17.3 L, [place] % (Auto) 13.3 H, Eos % (Auto) 4.5, Baso % (Auto) 0.8, Absolute Neuts (auto) 3.8, Absolute Lymphs (auto) 1.04, Total Counted Not Reportable 11/20/18 05:10: Sodium 138, Potassium 3.9, Chloride 98, Carbon Dioxide 30.0, Anion Gap 10, BUN 47 H, Creatinine 2.00 H, Estim Creat Clear Calc 37.51, Est GFR (MDRD) Af Amer 43 L, Est GFR (MDRD) Non-Af 36 L, BUN/Creatinine Ratio 23.5 H, Glucose 235 H, Calcium 8.8, Total Bilirubin 0.40, AST 46 H, ALT 71 H, Alkaline Phosphatase 126 H, Total Protein 7.2, Albumin 2.7 L, Globulin 4.5 H, Albumin/Globulin Ratio 0.6 L 11/20/18 06:39: POC Glucose 177 H Current Medications Acetaminophen (Tylenol) 650 mg PO Q6H PRN PRN PRN Reason: Mild Pain (1-3)/Temp > 100.7 F Aspirin (Ecotrin) 81 mg PO DAILY@0800 [facility] Atorvastatin Calcium (Lipitor) 80 mg PO QHS [facility] Last Admin: 11/19/18 22:50 Dose: 80 mg Baclofen (Lioresal) 10 mg PO TID [facility] Last Admin: 11/20/18 06:40 Dose: 10 mg Clopidogrel Bisulfate (Plavix) 75 mg PO DAILY [facility] Dextrose (D50w Syringe) 0 gm IV X1 PRN; Protocol PRN Reason: Hypoglycemia Fluticasone Propionate (Flonase Nasal [place]) 1 spray NASAL DAILY [facility] Furosemide (Lasix) 40 mg IV BID@1000,1800 [facility] Last Admin: 11/19/18 20:04 Dose: 40 mg Glucagon () 1 mg IM .X1 PRN PRN Reason: Hypoglycemia Heparin Sodium (Porcine) (Heparin Na) 5,000 unit SC Q8 [facility] Last Admin: 11/20/18 06:40 Dose: 5,000 unit Ampicillin Sodium/Sulbactam (Sodium 3 gm/ Sodium Chloride) 112 mls @ 150 mls/hr IV Q6 [facility] Last Admin: 11/20/18 06:41 Dose: 150 mls/hr Sodium Chloride () 250 mls @ 15 mls/hr IV .[id number] PRN PRN Reason: SALINE FLUSH Last Admin: 11/20/18 06:59 Dose: 15 mls/hr Insulin Glargine (Lantus (Bkc)) 60 units SC BID [facility] Last Admin: 11/19/18 23:18 Dose: 60 u Insulin Human Lispro (Humalog Kwikpen (Bkc)) 0 unit SQ ACHS & 3AM [facility]; Protocol Last Admin: 11/20/18 06:41 Dose: 3 u Levothyroxine Sodium (Synthroid) 200 mcg PO DAILY@0600 [facility] Last Admin: 11/20/18 06:40 Dose: 200 mcg Linagliptin (Tradjenta) 5 mg PO DAILY [facility] Lisinopril (Zestril) 2.5 mg PO DAILY [facility] Meclizine HCl (Antivert) 25 mg PO TID [facility] Last Admin: 11/20/18 06:40 Dose: 25 mg Metolazone (Zaroxolyn) 2.5 mg PO BIDLX [facility] Metoprolol Tartrate (Lopressor (Beta Adonis)) 50 mg PO BID [facility] Last Admin: 11/19/18 22:50 Dose: 50 mg Ondansetron HCl (Zofran) 4 mg IV Q8H PRN PRN PRN Reason: NAUSEA/VOMITING Oxycodone HCl (Oxyir) 5 mg PO Q4H PRN PRN PRN Reason: Moderate Pain (4-6/10) Pantoprazole Sodium (Protonix) 20 mg PO DAILY [facility] Pioglitazone HCl (Actos) 30 mg PO DAILY [facility] Polysaccharide Iron Complex (Ferrex 150) 150 mg PO DAILYCM [facility] Sodium Chloride () 5 - 15 ml IV UD PRN PRN Reason: SALINE FLUSH Last Admin: 11/20/18 06:58 Dose: 10 ml Medical Necessity - Tobacco Use Smoking Status: Never smoker Tobacco Use: Non-smoker Assessment/Plan All Active Problems (Last Reviewed 08/16/18 @ 19:07 by Abran Garcia DO) Diabetic ulcer of toe of right foot associated with diabetes mellitus due to underlying condition (Acute) Diabetic ulcer of right foot with bone involvement without evidence of necrosis (Acute) Anasarca (Acute) GENE (acute kidney injury) (Acute) Abdominal pain (Acute) Abdominal distension (Acute) Sepsis (Acute) Osteomyelitis of foot (Acute) Osteomyelitis of right foot (Acute) Chronic ulcer of left foot with fat layer exposed (Resolved) Hammer toe of right foot (Acute) Cellulitis of left foot (Acute) Cellulitis of right foot (Acute) Severe sepsis (Acute) Chronic ulcer of left foot with fat layer exposed (Resolved) Ulcer of right foot with fat layer exposed (Resolved) Cellulitis of left foot (Acute) Syncopal episodes (Resolved) 1. Bilateral lower extremity cellulitis secondary to acute on chronic venous stasis secondary to acute on chronic diastolic CHF/chronic leg ulcers with arterial emboli of the right fourth and fifth toes -Not septic on admission -Tolerating Unasyn, can transition to p.o. Augmentin on discharge -Appreciate podiatry input, they will do arterial studies as an outpatient -Wound culture and blood cultures are pending -Wound care consult 2. CAD status post CABG/HTN/HLD/peripheral artery disease/diastolic CHF -Continue with Ronak wrapping of his lower extremities -Continue with IV Lasix and p.o. metolazone for diuresis, fluid restriction and daily weights -Continue with home metoprolol, lisinopril, Lipitor -Continue with aspirin and Plavix 3. IDDM 2/peripheral neuropathy/obesity -Continue with home Lantus 60 units subcu twice daily and sliding scale insulin -We will hold his Tradjenta and Actos and he would recommend that he follow-up with his PCP to discontinue the Actos given the complications with edema and worsening heart failure from the drug -BMI is 37.2, lifestyle modifications discussed 4. GERD -Stable -Continue with PPI 5. CKD 3/anemia of chronic disease -GFR and creatinine are at baseline -Continue with his iron supplementation, anemia is stable at baseline DVT: Upper Code Visit OBSV E&M: [id number] Subsequent observation care L2
--- NOTE | 2018-11-20 09:18 | PN_ITS ---
Subjective: Feels better today, though he still has a little bit of discomfort in his calf on palpation. No acute events overnight however he would like to stay another day Vitals/I&O's: Vital Signs Temp Pulse Resp BP Pulse Ox 97.7 F L 64 18 108/49 L 93 11/20/18 02:52 11/20/18 02:52 11/20/18 02:52 11/20/18 02:52 11/20/18 02:52 Oxygen Delivery Method Room Air Weight: 254 lb 6.615 oz Body Mass Index (BMI) 37.2 Finger Stick Blood Glucose 91 Intake and Output for Last 24 Hours 11/18/18 11/19/18 11/20/18 23:59 23:59 23:59 Intake Total 1022 / 1022 150 / 150 Output Total 900 / 900 1050 / 1050 Balance 122 / 122 -900 / -900 General: Alert, Oriented x3, Cooperative, No apparent distress HEENT: Atraumatic, PERRLA, EOMI, Normocephalic Oral: Moist Mucosa Neck: Supple, No JVD Lungs: Clear to auscultation, Normal air movement, No rhonchi, No wheeze, No rales, Diminished Cardiovascular: Regular rate, Regular Rhythm, Normal S1, Normal S2, No murmurs Abdomen: Soft, Non Tender, Non-Distended, No Hepato-splenomegaly, Obese Extremities: Capillary Refill Less than 3 Seconds, Edema - 3+ bilateral edema, little bit improved with Ronak wrapping Skin: - - Erythema of both anterior tibia with a callused ulcer on the left plantar surface Neurological: Deep Tendon Reflexes 2+/4 and Symmetrical, Sensory exam intact to light touch and pain Psych/Mental Status: Normal Affect, Appropriate Laboratory Results 11/19/18 14:20: WBC 6.2, RBC 4.15 L, Hgb 12.5 L, Hct 38.6 L, MCV 93.0, MCH 30.1, MCHC 32.4, RDW 16.0 H, RDW Differential 54.1 H, Plt Count 286, MPV 10.2, Immature Gran % (Auto) 0.500, Neut % (Auto) 65.7, Lymph % (Auto) 19.9, [place] % (Auto) 8.4, Eos % (Auto) 4.9, Baso % (Auto) 0.6, Absolute Neuts (auto) 4.1, Absolute Lymphs (auto) 1.23, Total Counted Not Reportable, ESR 50 H 11/19/18 14:20: Sodium 136, Potassium 4.9, Chloride 96 L, Carbon Dioxide 29.0, Anion Gap 11, BUN 44 H, Creatinine 1.87 H, Estim Creat Clear Calc 40.12, Est GFR (MDRD) Af Amer 47 L, Est GFR (MDRD) Non-Af 39 L, BUN/Creatinine Ratio 23.5 H, Glucose 368 H, Calcium 8.4 L, C-React Prot Ext Range 29.50 H 11/19/18 22:45: POC Glucose 489 H* 11/20/18 02:47: POC Glucose 367 H 11/20/18 05:10: WBC 6.0, RBC 4.16 L, Hgb 12.4 L, Hct 38.4 L, MCV 92.3, MCH 29.8, MCHC 32.3, RDW 15.9 H, RDW Differential 51.6 H, Plt Count 282, MPV 10.3, Immature Gran % (Auto) 0.500, Neut % (Auto) 63.6, Lymph % (Auto) 17.3 L, [place] % (Auto) 13.3 H, Eos % (Auto) 4.5, Baso % (Auto) 0.8, Absolute Neuts (auto) 3.8, Absolute Lymphs (auto) 1.04, Total Counted Not Reportable 11/20/18 05:10: Sodium 138, Potassium 3.9, Chloride 98, Carbon Dioxide 30.0, Anion Gap 10, BUN 47 H, Creatinine 2.00 H, Estim Creat Clear Calc 37.51, Est GFR (MDRD) Af Amer 43 L, Est GFR (MDRD) Non-Af 36 L, BUN/Creatinine Ratio 23.5 H, Glucose 235 H, Calcium 8.8, Total Bilirubin 0.40, AST 46 H, ALT 71 H, Alkaline Phosphatase 126 H, Total Protein 7.2, Albumin 2.7 L, Globulin 4.5 H, Albumin/Globulin Ratio 0.6 L 11/20/18 06:39: POC Glucose 177 H Current Medications Acetaminophen (Tylenol) 650 mg PO Q6H PRN PRN PRN Reason: Mild Pain (1-3)/Temp > 100.7 F Aspirin (Ecotrin) 81 mg PO DAILY@0800 [facility] Atorvastatin Calcium (Lipitor) 80 mg PO QHS [facility] Last Admin: 11/19/18 22:50 Dose: 80 mg Baclofen (Lioresal) 10 mg PO TID [facility] Last Admin: 11/20/18 06:40 Dose: 10 mg Clopidogrel Bisulfate (Plavix) 75 mg PO DAILY [facility] Dextrose (D50w Syringe) 0 gm IV X1 PRN; Protocol PRN Reason: Hypoglycemia Fluticasone Propionate (Flonase Nasal [place]) 1 spray NASAL DAILY [facility] Furosemide (Lasix) 40 mg IV BID@1000,1800 [facility] Last Admin: 11/19/18 20:04 Dose: 40 mg Glucagon () 1 mg IM .X1 PRN PRN Reason: Hypoglycemia Heparin Sodium (Porcine) (Heparin Na) 5,000 unit SC Q8 [facility] Last Admin: 11/20/18 06:40 Dose: 5,000 unit Ampicillin Sodium/Sulbactam (Sodium 3 gm/ Sodium Chloride) 112 mls @ 150 mls/hr IV Q6 [facility] Last Admin: 11/20/18 06:41 Dose: 150 mls/hr Sodium Chloride () 250 mls @ 15 mls/hr IV .[id number] PRN PRN Reason: SALINE FLUSH Last Admin: 11/20/18 06:59 Dose: 15 mls/hr Insulin Glargine (Lantus (Bkc)) 60 units SC BID [facility] Last Admin: 11/19/18 23:18 Dose: 60 u Insulin Human Lispro (Humalog Kwikpen (Bkc)) 0 unit SQ ACHS & 3AM [facility]; Protocol Last Admin: 11/20/18 06:41 Dose: 3 u Levothyroxine Sodium (Synthroid) 200 mcg PO DAILY@0600 [facility] Last Admin: 11/20/18 06:40 Dose: 200 mcg Linagliptin (Tradjenta) 5 mg PO DAILY [facility] Lisinopril (Zestril) 2.5 mg PO DAILY [facility] Meclizine HCl (Antivert) 25 mg PO TID [facility] Last Admin: 11/20/18 06:40 Dose: 25 mg Metolazone (Zaroxolyn) 2.5 mg PO BIDLX [facility] Metoprolol Tartrate (Lopressor (Beta Adonis)) 50 mg PO BID [facility] Last Admin: 11/19/18 22:50 Dose: 50 mg Ondansetron HCl (Zofran) 4 mg IV Q8H PRN PRN PRN Reason: NAUSEA/VOMITING Oxycodone HCl (Oxyir) 5 mg PO Q4H PRN PRN PRN Reason: Moderate Pain (4-6/10) Pantoprazole Sodium (Protonix) 20 mg PO DAILY [facility] Pioglitazone HCl (Actos) 30 mg PO DAILY [facility] Polysaccharide Iron Complex (Ferrex 150) 150 mg PO DAILYCM [facility] Sodium Chloride () 5 - 15 ml IV UD PRN PRN Reason: SALINE FLUSH Last Admin: 11/20/18 06:58 Dose: 10 ml Medical Necessity - Tobacco Use Smoking Status: Never smoker Tobacco Use: Non-smoker Assessment/Plan All Active Problems (Last Reviewed 08/16/18 @ 19:07 by Abran Garcia DO) Diabetic ulcer of toe of right foot associated with diabetes mellitus due to underlying condition (Acute) Diabetic ulcer of right foot with bone involvement without evidence of necrosis (Acute) Anasarca (Acute) GENE (acute kidney injury) (Acute) Abdominal pain (Acute) Abdominal distension (Acute) Sepsis (Acute) Osteomyelitis of foot (Acute) Osteomyelitis of right foot (Acute) Chronic ulcer of left foot with fat layer exposed (Resolved) Hammer toe of right foot (Acute) Cellulitis of left foot (Acute) Cellulitis of right foot (Acute) Severe sepsis (Acute) Chronic ulcer of left foot with fat layer exposed (Resolved) Ulcer of right foot with fat layer exposed (Resolved) Cellulitis of left foot (Acute) Syncopal episodes (Resolved) 1. Bilateral lower extremity cellulitis secondary to acute on chronic venous stasis secondary to acute on chronic diastolic CHF/chronic leg ulcers with arterial emboli of the right fourth and fifth toes -Not septic on admission -Tolerating Unasyn, can transition to p.o. Augmentin on discharge -Appreciate podiatry input, they will do arterial studies as an outpatient -Wound culture and blood cultures are pending -Wound care consult 2. CAD status post CABG/HTN/HLD/peripheral artery disease/diastolic CHF -Continue with Ronak wrapping of his lower extremities -Continue with IV Lasix and p.o. metolazone for diuresis, fluid restriction and daily weights -Continue with home metoprolol, lisinopril, Lipitor -Continue with aspirin and Plavix 3. IDDM 2/peripheral neuropathy/obesity -Continue with home Lantus 60 units subcu twice daily and sliding scale insulin -We will hold his Tradjenta and Actos and he would recommend that he follow-up with his PCP to discontinue the Actos given the complications with edema and worsening heart failure from the drug -BMI is 37.2, lifestyle modifications discussed 4. GERD -Stable -Continue with PPI 5. CKD 3/anemia of chronic disease -GFR and creatinine are at baseline -Continue with his iron supplementation, anemia is stable at baseline DVT: Upper Code Visit OBSV E&M: [id number] Subsequent observation care L2
--- NOTE | 2018-11-20 10:00 | NURSING ---
Dressings changed this am per Dr Isabel. discussed patient with him this am. states dressings do not need to be changed again today. will assess in am.
[2018-11-20 10:48] VITALS: BP 117/53; PULSE 78; RESP 18; TEMP 36.5; O2SAT 93
[2018-11-20 10:55] VITALS: PULSE 78
[2018-11-20] MEDS: Metoprolol Tartrate 50 MG Tablet PO (10:55)
[2018-11-20] MEDS: Aspirin E.C. 81 MG Tablet PO (10:55)
[2018-11-20] MEDS: Metolazone 2.5 MG Tablet PO ×2 (10:55→17:39)
[2018-11-20] MEDS: Pantoprazole Sodium 20 MG Tablet PO (10:55)
[2018-11-20] MEDS: Lisinopril 2.5 MG Tablet PO (10:55)
[2018-11-20] MEDS: Fluticasone 0.05% 1 SPRAY NASAL.SRY NASAL (10:56)
[2018-11-20] MEDS: Clopidogrel Bisulfate 75 MG Tablet PO (10:56)
[2018-11-20] MEDS: Iron Polysaccharide Complex 150 MG CAPSULE PO (10:56)
[2018-11-20] MEDS: Furosemide 40 MG/4 ML Vial IV ×2 (11:05→17:39)
[2018-11-20 11:15] LABS: Bedside Glucose 202 mg/dL (70-110)
[2018-11-20 15:39] VITALS: BP 118/33; PULSE 66; RESP 18; TEMP 36.8; O2SAT 96
--- NOTE | 2018-11-20 16:54 | CHAPLAIN ---
Type of Pastoral Visit _x__ Initial Visit ___ Follow-up Visit ___ On-call Visit ___ General Patient Visit ___ Spiritual Assessment ___ Family Conference ___ Bereavement ___ Rapid Response ___ Code Blue ___ Other (describe below) Pastoral Care Referral From _x__ Patient ___ Family ___ Nurse ___ Physician ___ Lye Treater ___ Road Hogger Operator ___ Other (describe below) Sacrament/Intervention _x__ Active listening ___ Anointing ___ Faith ___ Bereavement ___ Communion _x__ Elsa exploration ___ ___ Life review _x__ Prayer ___ Reconciliation ___ Sacrament of Sick _x__ Supportive presence ___ Wedding ___ Other (describe below) Pastoral Comments patient has orientation toward spiritual things and welcomes conversation about elsa and his personal life; scripture reading and prayer given
[2018-11-20 17:05] LABS: Bedside Glucose 234 mg/dL (70-110)
[2018-11-20 22:26] VITALS: BP 107/53; PULSE 76; RESP 18; TEMP 36.7; O2SAT 93
[2018-11-20 22:35] VITALS: BP 107/53
[2018-11-20] MEDS: Atorvastatin Calcium 80 MG Tablet PO (22:52)
[2018-11-21 00:01] LABS: Bedside Glucose 156 mg/dL (70-110)
[2018-11-21] MEDS: 0.9% NaCl IVPB Med Flush (250 mL) 15 ML IV (03:10)
[2018-11-21 03:16] VITALS: BP 124/55; PULSE 77; RESP 18; TEMP 36.5; O2SAT 94
[2018-11-21 03:16] LABS: Bedside Glucose 119 mg/dL (70-110)
[2018-11-21] MEDS: Levothyroxine 100 MCG Tablet 200 MCG PO (06:07)
[2018-11-21] MEDS: Baclofen 10 MG Tablet PO (06:07)
[2018-11-21] MEDS: Meclizine HCl 25 MG Tablet PO (06:07)
[2018-11-21 06:10] LABS: Anion Gap 10 (5-15); BUN 48 mg/dL (7-18); BUN/Creat Ratio 31.8 RATIO (10-20); Calcium,Total 8.6 mg/dL (8.5-10.1); Chloride 104 mmol/L (98-107); Creatinine, Serum 1.51 mg/dL (0.70-1.30); EST Glomerular Filtration Rate 49 mL/min (>60); Est Glom Filt Rate - Afr Amer 60 mL/min (>60); Estimated Creatinine Clearance 49.69 ml/min; Glucose 107 mg/dL (74-106); Potassium 3.6 mmol/L (3.5-5.1); Sodium Level 142 mmol/L (136-145)
[2018-11-21] MEDS: Heparin Injection (Vial) 5,000 UNIT/ML VIAL 5000 UNIT SC (06:38)
[2018-11-21 06:45] LABS: Bedside Glucose 131 mg/dL (70-110)
--- NOTE | 2018-11-21 08:07 | DCINST_ITS ---
You will use the following diet at home:: Cardiac Your food should be the consistency of: Regular Your liquids should be the consistency of: Regular/Thin Discharge Activity: Return to Normal Activity Call your doctor if you observe: Fever of 101 or Higher, Shortness of breath, Dizziness, Fainting spells, Swelling in the ankles, Chest pain, Increased palpitations (irregular heartbeat) Allergies/Adverse Reactions: Allergies adhesive Allergy (Verified 08/16/18 14:57) SKIN GETS PULLED OFF SKIN GETS PULLED OFF latex Allergy (Verified 08/16/18 14:57) Hives Medications to take at Discharge Clopidogrel Bisulfate [Plavix] 75 mg PO DAILY 05/15/13 Levothyroxine [Synthroid] 200 mcg PO DAILY 05/15/13 Metoprolol Tartrate [Lopressor (beta ramo)] 50 mg PO BID 05/15/13 Atorvastatin Calcium [Lipitor] 80 mg PO QHS 01/12/16 Pantoprazole Sodium [Protonix] 20 mg PO DAILY 01/12/16 Iron Polysaccharide Complex [Ferrex 150] 150 mg PO DAILYCM #30 cap 09/07/17 Linagliptin [Tradjenta] 5 mg PO DAILY #30 tab 09/07/17 Aspirin E.C. [Ecotrin] 81 mg PO DAILY@0800 01/16/18 Fluticasone 0.05% [Flonase Nasal [place]] 1 spray NASAL DAILY 01/16/18 Meclizine HCl 25 mg PO TID 01/16/18 Baclofen 10 mg PO TID 08/16/18 Pioglitazone HCl 30 mg PO DAILY 08/16/18 Plecanatide [Trulance] 3 mg PO DAILY 08/16/18 Insulin Glargine [Lantus SoloStar Pen] 60 units SC BID 08/25/18 Furosemide [Lasix] 80 mg PO BIDLX 11/19/18 Insulin Aspart [Novolog Flexpen] 6 - 30 units SC TIDCM 11/19/18 Lisinopril 2.5 mg PO DAILY 11/19/18 Metolazone 2.5 mg PO BID 11/19/18 Doxycycline 100 mg PO BID #20 capsule 11/21/18 The following prescriptions were given: Doxycycline 100 mg PO BID #20 capsule Primary Care Physician: Johnathan Batres Chi, MD [Primary Care Provider] - Please follow up with your Primary Care Physician in: 3-5 days Test Results: Test results from this visit will be discussed in further detail at your follow- up appointment, if applicable. Please Follow Up With: Margaret Thomas DPM When: 1-2 weeks either in her office or at the wound care clinic
--- NOTE | 2018-11-21 08:15 | DS.PCM_ITS ---
Discharge Date and Diagnosis Date of Admission: 11/19/18 Date of Discharge: 11/21/18 - Secondary Discharge Diagnosis Chronic Problems (Last Reviewed 08/16/18 @ 19:07 by Abran Garcia DO) Blister of left leg (Chronic) Subungual hematoma of toe of right foot (Chronic) Skin ulcer of third toe of right foot with fat layer exposed (Chronic) 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) Edema leg (Chronic) Hammertoe of right foot (Chronic) Corns and callosities (Chronic) Diabetes mellitus (Chronic) Non-pressure chronic ulcer of other part of left foot with fat layer exposed (Chronic) dorsal left medial foot Non-pressure chronic ulcer of other part of right foot with fat layer exposed (Chronic) PAD (peripheral artery disease) (Chronic) Diabetes mellitus with neuropathy (Chronic) CAD (coronary artery disease) (Chronic) Malnutrition (Chronic) Delayed wound healing (Chronic) Lower extremity edema (Chronic) Hypertension (Chronic) Hyperlipidemia (Chronic) Hypothyroidism (Chronic) Coronary artery disease (Chronic) Sleep apnea (Chronic) Chronic kidney disease (Chronic) PAOD (peripheral arterial occlusive disease) (Chronic) GERD (gastroesophageal reflux disease) (Chronic) Muscle spasm (Chronic) Osteomyelitis of left foot (Chronic) Type 2 diabetes mellitus with diabetic polyneuropathy (Chronic) Pulmonary hypertension (Chronic) Obstructive sleep apnea (Chronic) Morbid obesity (Chronic) Non compliance with medical treatment (Chronic) Diabetic foot ulcers (Chronic) Aortocoronary bypass status (Chronic) Type II diabetes mellitus, uncontrolled (Chronic) History of esophageal reflux (Chronic) History of hyperlipidemia (Chronic) History of hypertension (Chronic) History of hypothyroidism (Chronic) Macular infarction (Chronic) Peripheral vascular disease (Chronic) Hospital Course and Treatment Imaging Results: None Consultations 11/19/18 18:20 Consult: Onc/Wound/family services assistant Routine Comment: Podiatry Operations: None Procedures: None Summary of Care Provided: Per HPI: The patient is a 68 year old M with past medical history of type II DM complicated by peripheral neuropathy, hypertension, CKD stage III, PAD, status post left TMA amputation, follows with Dr. Thomas, last seen in the wound center in September 2018. Patient lives alone and has home health that comes 5 times a week, 2 hours daily. He notices bilateral leg swelling, redness, with seeping discharge from blisters over his bilateral shins. His home health also noticed some chronic wound on the left plantar surface. Patient says all his wounds were healed at the time of discharge. He came to the ED at the insistence of his home health nurse. He denied any chest pain or dizziness or palpitations of fever or chills. Vitals in the ED showed temperature of 90 7.9F, heart rate 66, blood pressure 122/66, respiratory rate was 18, SPO2 was 91% on room air. His admitting blood work showed WBC 6.2, Hb 12.5, Plt 286, BMP shows sodium 136, potassium 4.9, chloride 96, BUN 44, creatinine 1.87, at his baseline. Hospital Course: 1. Bilateral lower extremity cellulitis secondary to acute on chronic venous s tasis secondary to acute on chronic diastolic heart failure/chronic leg ulcers with arterial emboli of the right fourth and fifth [id number] male with a history of type 2 diabetes, peripheral neuropathy, peripheral artery disease, left TMA amputation who follows with podiatry as an outpatient presents with bilateral leg swelling and blisters over his shins and a chronic wound of his left plantar surface. He was started on Unasyn IV and podiatry and wound care were consulted. Podiatry he needed any significant surgical intervention at this time he can be followed up as an outpatient in wound care has been doing trach daily dressing changes and wrapping his legs with Ronak bandage which seems to have helped significantly, and he has no significant pain in his legs at this time. He had a wound culture done initially which showed mixed gram-positive and gram-negative [place], and then repeat 1 about 20 minutes later showed staph aureus. Therefore should have being discharged on Augmentin he will be discharged on doxycycline 100 p.o. twice daily. He will follow-up with Dr. Thomas specifically as an outpatient. Arterial studies have been ordered on admission and demonstrate peripheral artery disease more severe on the left than the right. I discussed with him the possibility of going home today and to continue antibiotics for 10 days to follow-up with Dr. Thomas as an outpatient, he was agreeable to the plan. 2. IDDM 2/peripheral neuropathy/obesity-his oral medications were held for his diabetes and his insulin was continued. Of note he is also on Actos as an outpatient which is known to increase lower extremity swelling and worsening heart failure. Recommend switching to an alternate medication as an outpatient when able. Did have a long discussion about lifestyle modifications for his obesity since his BMI is 37.2. Weight loss will assist control pretty much every single one of his chronic illnesses. 3. His other medical diagnoses were evaluated and his home medications were continued where appropriate Objective: General: Alert, Oriented x3, Cooperative, No apparent distress HEENT: Atraumatic, PERRLA, EOMI, Normocephalic Oral: Moist Mucosa Neck: Supple, No JVD Lungs: Clear to auscultation, Normal air movement, No rhonchi, No wheeze, No rales, Diminished Cardiovascular: Regular rate, Regular Rhythm, Normal S1, Normal S2, No murmurs Abdomen: Soft, Non Tender, Non-Distended, No Hepato-splenomegaly, Obese Extremities: Capillary Refill Less than 3 Seconds, Edema - 3+ bilateral edema, little bit improved with Ronak wrapping Skin: - - Erythema of both anterior tibia with a callused ulcer on the left plantar surface Neurological: Deep Tendon Reflexes 2+/4 and Symmetrical, Sensory exam intact to light touch and pain Psych/Mental Status: Normal Affect, Appropriate - Physical Exam Vital Signs Temp Pulse Resp BP Pulse Ox 97.7 F L 77 18 124/55 H 94 11/21/18 03:16 11/21/18 03:16 11/21/18 03:16 11/21/18 03:16 11/21/18 03:16 Oxygen Delivery Method Room Air Weight: 252 lb 10.396 oz Body Mass Index (BMI) 37.2 Finger Stick Blood Glucose 91 Intake and Output for Last 24 Hours 11/19/18 11/20/18 11/21/18 23:59 23:59 23:59 Intake Total 1022 / 1022 1137 / 1137 414 / 414 Output Total 900 / 900 3500 / 3500 Balance 122 / 122 -2363 / -2363 414 / 414 Microbiology Past 72 Hours 11/19/18 15:38 Gram Stain - Final Wound - Leg Wound Culture - Preliminary Staphylococcus aureus 11/19/18 15:10 Gram Stain - Final Wound - Leg Wound Culture - Preliminary Mixed Gram Pos & Gram Neg Org Laboratory Tests Past 24 Hrs 11/21/18 05:30 Sodium 142 Potassium 3.6 Chloride 104 Carbon Dioxide 28.0 Anion Gap 10 BUN 48 H Creatinine 1.51 H Estim Creat Clear Calc 49.69 Est GFR (MDRD) Af Amer 60 Est GFR (MDRD) Non-Af 49 L BUN/Creatinine Ratio 31.8 H Glucose 107 H Calcium 8.6 POC Glucose 11/21/18 11/21/18 11/20/18 06:36 03:07 22:29 POC Glucose 131 H 119 H 156 H 11/20/18 11/20/18 16:56 11:05 POC Glucose 234 H 202 H Discharge Activity: Return to Normal Activity Call your doctor if you observe: Fever of 101 or Higher, Shortness of breath, Dizziness, Fainting spells, Swelling in the ankles, Chest pain, Increased palpitations (irregular heartbeat) Home Medications: Medications to take at Discharge Clopidogrel Bisulfate [Plavix] 75 mg PO DAILY 05/15/13 Levothyroxine [Synthroid] 200 mcg PO DAILY 05/15/13 Metoprolol Tartrate [Lopressor (beta ramo)] 50 mg PO BID 05/15/13 Atorvastatin Calcium [Lipitor] 80 mg PO QHS 01/12/16 Pantoprazole Sodium [Protonix] 20 mg PO DAILY 01/12/16 Iron Polysaccharide Complex [Ferrex 150] 150 mg PO DAILYCM #30 cap 09/07/17 Linagliptin [Tradjenta] 5 mg PO DAILY #30 tab 09/07/17 Aspirin E.C. [Ecotrin] 81 mg PO DAILY@0800 01/16/18 Fluticasone 0.05% [Flonase Nasal Rosanky] 1 spray NASAL DAILY 01/16/18 Meclizine HCl 25 mg PO TID 01/16/18 Baclofen 10 mg PO TID 08/16/18 Pioglitazone HCl 30 mg PO DAILY 08/16/18 Plecanatide [Trulance] 3 mg PO DAILY 08/16/18 Insulin Glargine [Lantus SoloStar Pen] 60 units SC BID 08/25/18 Furosemide [Lasix] 80 mg PO BIDLX 11/19/18 Insulin Aspart [Novolog Flexpen] 6 - 30 units SC TIDCM 11/19/18 Lisinopril 2.5 mg PO DAILY 11/19/18 Metolazone 2.5 mg PO BID 11/19/18 Doxycycline 100 mg PO BID #20 capsule 11/21/18 Following Prescrptions Were Given to Patient: Doxycycline 100 mg PO BID #20 capsule Primary Care Physician: Johnathan Batres Chi, MD [Primary Care Provider] - Please follow up with your Primary Care Physician in: 3-5 days Please Follow Up With: Margaret Thomas DPM When: 1-2 weeks either in her office or at the wound care clinic Disposition: Home Minutes spent on discharge:: 35 Patient Condition:: Stable Medical Necessity - Tobacco Use Smoking Status: Never smoker Tobacco Use: Non-smoker Meaningful Use Info Meaningful Use Diagnoses (Choose all that apply): None applicable Code Visit OBSV E&M: 84365 Observation care discharge
[2018-11-21] MEDS: Aspirin E.C. 81 MG Tablet PO (08:26)
[2018-11-21] MEDS: Iron Polysaccharide Complex 150 MG CAPSULE PO (08:26)
--- NOTE | 2018-11-21 09:57 | CASEMGMT ---
Social Work Note RN JUDE Howe updated this worker that pt has [facility] and pt's CM is Rosy Cifuentes. Rosy updated that pt will be discharged home today. [place] faxed discharge paperwork to Rosy at [facility]. Suzy Paige WOOLEN SUITING SHRINKER, ON SITE CONSTRUCTION SUPERINTENDENT
[2018-11-21 10:04] VITALS: BP 137/60; PULSE 91; RESP 18; TEMP 36.5; O2SAT 97
[2018-11-21] MEDS: Metolazone 2.5 MG Tablet PO (10:05)
[2018-11-21 10:06] VITALS: PULSE 91
[2018-11-21] MEDS: Metoprolol Tartrate 50 MG Tablet PO (10:06)
[2018-11-21] MEDS: Clopidogrel Bisulfate 75 MG Tablet PO (10:06)
[2018-11-21] MEDS: Fluticasone 0.05% 1 SPRAY NASAL.SRY NASAL (10:06)
[2018-11-21] MEDS: Pantoprazole Sodium 20 MG Tablet PO (10:06)
[2018-11-21] MEDS: Lisinopril 2.5 MG Tablet PO (10:07)
[2018-11-21] MEDS: Furosemide 40 MG/4 ML Vial IV (10:11)
--- NOTE | 2018-11-21 10:24 | CASEMGMT ---
DE OLIVEIRA form reviewed with patient at this time. Patient voiced understanding, no questions or concerns at this time. Patient signed DE OLIVEIRA form and placed in chart. Copy given to patient.
[2018-11-21 11:51] LABS: Bedside Glucose 224 mg/dL (70-110)
[2018-11-21] MEDS: Insulin Lispro 100 UNIT/ML INSULN.PEN SQ (11:59)
--- NOTE | 2018-11-21 13:30 | CASEMGMT ---
Patient would like [facility] for wound care. Patient states that he lives alone and has nobody available to assist. Patient has aides [facility]. Per Bee at [facility], aides are able to learn dressing changes. RN CM sent referral to [facility] and they are able to accept the patient. Patient made aware of C being setup. CM will continue to follow this patient and plan for a safe discharge.
== END 2018-11-21 14:00 | disposition home health service (06) ==
LOC: ED 15:07 → MS3 17:24
PROVIDERS: Admitting Provider Internal Medicine; Emergency Provider Emergency Medicine; Family Provider Family Medicine Geriatric Medicine; PCP Family Medicine Geriatric Medicine; Visit Provider Family Medicine
DX: L03.116 Cellulitis of left lower limb (principal); L03.115 Cellulitis of right lower limb; E11.42 Type 2 diabetes mellitus with diabetic polyneuropathy; E11.51 Type 2 diabetes mellitus with diabetic peripheral angiopathy without gangrene; I50.33 Acute on chronic diastolic (congestive) heart failure; E78.5 Hyperlipidemia, unspecified; E03.9 Hypothyroidism, unspecified; I13.0 Hypertensive heart and chronic kidney disease with heart failure and stage 1 through stage 4 chronic kidney disease, or unspecified chronic kidney disease; E11.22 Type 2 diabetes mellitus with diabetic chronic kidney disease; N18.3 Chronic kidney disease, stage 3 (moderate); K21.9 Gastro-esophageal reflux disease without esophagitis; E11.65 Type 2 diabetes mellitus with hyperglycemia; E66.01 Morbid (severe) obesity due to excess calories; G47.33 Obstructive sleep apnea (adult) (pediatric); Z71.3 Dietary counseling and surveillance; Z89.432 Acquired absence of left foot; Z89.421 Acquired absence of other right toe(s); Z79.899 Other long term (current) drug therapy; Z79.02 Long term (current) use of antithrombotics/antiplatelets; Z79.51 Long term (current) use of inhaled steroids; Z79.82 Long term (current) use of aspirin; Z79.4 Long term (current) use of insulin; Z68.37 Body mass index [BMI] 37.0-37.9, adult; Z95.1 Presence of aortocoronary bypass graft; D63.1 Anemia in chronic kidney disease
CPT/HCPCS: 36415; 80048; 80053; 82962; 85025; 85652; 86140; 87040; 87070; 87077; 87186; 87205; 93923; 96365; 96366; 96367; 96372; 96375; 96376; 97162; 97166; 99218; 99284; J7050; A4216; G0378; J0295; J1940

== ENCOUNTER 2018-11-24 11:00 | Inpatient (IN) | payer MEDICARE, MEDICAID, SELFPAY ==
[2018-11-24] VITALS (10 sets, daily range): BP systolic 123–143; BP diastolic 60–77; PULSE 75–97; RESP 14–20; TEMP 36.4–37.2; O2SAT 91–97; BMI 39.9; BMI 38.0
[2018-11-24 11:34] LABS: Absolute Lymphocyte Count 0.78 X10^3/ul (0.83-4.51); Absolute Neutrophil Count 3.6 X10^3/uL (2.0-7.7); Basophil# 0.04 X10^3/uL; Basophil% 0.8 % (0-1); Eosinophil# 0.24 X10^3/uL; Eosinophils% 4.5 % (0-5); Hematocrit 33.7 % (40-54); Hemoglobin 10.9 g/dl (13.0-16.5); Lymphocyte # 0.78 X10^3/ul (4.0); Lymphocyte % 14.7 % (19-41); Mean Corp Hgb Conc 32.3 g/gl (32-36); Mean Corpuscular Hgb 30.4 pg (27.0-32.0); Mean Corpuscular Volume 94.1 fL (80-94); Monocyte# 0.66 X10^3/uL; Monocyte% 12.5 % (0-10); Neutrophil # 3.55 X10^3/uL (2.7-7.7); Neutrophil % 67.1 % (47-70); Platelet Count 247 K/mm3 (150-450); RBC Distribution Width CV 16.3 % (11.6-14.6); RBC Distribution Width SD 56.8 fl (35.1-43.9); Red Blood Count 3.58 M/mm3 (4.6-6.2); White Blood Count 5.3 K/mm3 (4.4-11.0)
[2018-11-24 11:36] LABS: POSITIVE COUNT NO; POSITIVE DIFFERENTIAL NO; POSITIVE MORPHOLOGY NO
--- NOTE | 2018-11-24 11:53 | CT_ITS ---
STUDY: CT ABDOMEN AND PELVIS WITHOUT CONTRAST REASON FOR EXAM: Male, 68 years old. Abdominal distention RADIATION DOSAGE (If Supplied By Facility): DLP = ( 1724.80 ) mGycm TECHNIQUE: Transaxial images were obtained from the dome of the diaphragm to the symphysis pubis without oral contrast, and without intravenous contrast. Sagittal and coronal images were reconstructed. Individualized dose optimization techniques were used for this CT. COMPARISON: CT abdomen and pelvis January 16, 2018 FINDINGS: Evaluation of the abdominal viscera is limited in the absence of intravenous contrast. There is a small left effusion with adjacent atelectasis, increased from prior. Right lung base atelectasis is present. The visualized portions of the heart and pericardium are within normal limits. The gallbladder has been removed. The liver demonstrates an unremarkable unenhanced appearance. The spleen is normal in size. The pancreas demonstrates an unremarkable unenhanced appearance. The adrenal glands are within normal limits. There are no obstructing renal stones. There is no hydronephrosis. Normal visualized stomach. There is no bowel obstruction or inflammation. The appendix is not visualized, but there are no findings to suggest acute appendicitis. The aorta is normal in caliber. There is no abdominal or pelvic free air, free fluid, fluid collection or lymphadenopathy. There are no destructive osseous lesions. Mild to moderate diffuse edema is present in the subcutaneous fat. CT/Abdomen/Pelvis without Cont IMPRESSION: No acute abdominal or pelvic pathology demonstrated on this noncontrast CT. Small left pleural effusion with adjacent atelectasis, increased from prior. Status post cholecystectomy. Mild to moderate diffuse edema in the subcutaneous fat. Electronically Signed: Laureano Thakur, at 12:58 EDT Tel , Service support ,
--- NOTE | 2018-11-24 11:54 | EKG12_ITS ---
Test Reason : AB PAIN Blood Pressure : / mmHG Vent. Rate : 085 BPM Atrial Rate : 085 BPM P-R Int : 240 ms QRS Dur : 152 ms QT Int : 438 ms P-R-T Axes : 015 105 -57 degrees QTc Int : 521 ms Sinus rhythm with 1st degree A-V block Right bundle branch block Inferior infarct , age undetermined T wave abnormality, consider lateral ischemia Abnormal ECG Confirmed by DARRIAN PELAEZ, LUCÍA ([id number]), supervising editor news reel SONAM BAILON ([id number]) on 11/25/2018 1:16:18 PM Referred By: EVERTON Confirmed By:LUCÍA COLMENARES MD
[2018-11-24 11:57] LABS: AST(SGOT) 234 U/L (15-37); Alanine Aminotransfer ALT/SGPT 199 U/L (16-61); Albumin, Serum 2.6 g/dL (3.2-5.0); Alkaline Phosphatase 135 U/L (45-117); Anion Gap 4 (5-15); BUN 45 mg/dL (7-18); BUN/Creat Ratio 31.5 RATIO (10-20); Bilirubin, Direct 0.14 mg/dL (0.00-0.30); Calcium,Total 7.8 mg/dL (8.5-10.1); Chloride 106 mmol/L (98-107); Creatinine, Serum 1.43 mg/dL (0.70-1.30); EST Glomerular Filtration Rate 53 mL/min (>60); Est Glom Filt Rate - Afr Amer 64 mL/min (>60); Estimated Creatinine Clearance 52.47 ml/min; Globulin 4.1 g/dL (2.2-4.2); Glucose 247 mg/dL (74-106); Lipase 110 U/L (73-393); Potassium 4.4 mmol/L (3.5-5.1); Protein, Total 6.7 g/dL (6.4-8.2); Sodium Level 138 mmol/L (136-145)
[2018-11-24] MEDS: Ondansetron 4 MG/2 ML Vial IV (11:59)
[2018-11-24] MEDS: morphine 8 MG/ML Syringe IV (11:59)
--- NOTE | 2018-11-24 11:59 | ED.DCSUM_ITS ---
History of Present Illness Chief Complaint: Abd Pain Informant: Patient Onset: Weeks Narrative: The patient is an extremely poor historian he basically has a history of heart disease CHF diabetes peripheral vascular disease lower extremity diabetic leg infections he presents complaining of progressively worsening abdominal distention lower extremity edema and some mild trouble breathing 4 weeks it intensified today he came in for evaluation he is having normal bowel bladder habits his abdominal girth is increased and he reports that happens chronically related to his conditions and it usually improves with Lasix he cannot manage his condition at home he denies fever chronic cough again his bowel and bladder habits unremarkable he did have both today Past Medical History - Allergies and Home Meds Allergies/Adverse Reactions: Allergies adhesive Allergy (Verified 11/24/18 11:01) SKIN GETS PULLED OFF SKIN GETS PULLED OFF latex Allergy (Verified 11/24/18 11:01) Hives Primary Care Physician: Johnathan Batres Chi, MD [Primary Care Provider] - Surgical History: angioplasty, cholecystectomy, coronary bypass surgery, - Smoking Status: Former smoker - Family History Paternal Family History: Family History (Last Reviewed 08/16/18 @ 19:08 by Abran Garcia DO) Grandfather Diabetes Heart disease Hypertension High blood cholesterol CVA (cerebral vascular accident) Son Thyroid disorder Family History: Reports: No pertinent history Maternal Family History: Family History (Last Reviewed 08/16/18 @ 19:08 by Abran Garcia DO) Grandfather Diabetes Heart disease Hypertension High blood cholesterol CVA (cerebral vascular accident) Son Thyroid disorder Family History: Reports: - Review of Systems General: Reports: - - He is awake and alert answering questions appropriately complaining of the abdominal distention affecting his breathing indicates his lower extremity edema is worse. Denies: Chills, Fever, Sweats Eyes: Denies: Visual changes - bilaterally, Diplopia ENT: Denies: Rhinorrhea, Sore throat Cardiovascular: Denies: Chest pain, Palpitations Respiratory: Reports: Dyspnea, Dyspnea on exertion. Denies: Cough Gastrointestinal: Reports: Abdominal pain, - - He has significant abdominal distention nonspecific diffuse pain no rebound or guarding. Denies: Nausea, Vomiting, Diarrhea, Melena, Hematochezia Genitourinary: Denies: Dysuria, Hematuria, Frequency Musculoskeletal: Reports: - - He has significant lower extremity edema in his legs are wrapped in Ronak wraps,. Denies: Back pain, Extremity Pain Skin: Reports: Rash, Abrasions, Wounds Neurological: Denies: Headache, Weakness, Numbness Physical Exam Vital Signs/Narrative: Vital Signs Temp Pulse Resp BP Pulse Ox 11/24/18 11:01 98.5 F 84 20 H 132/60 H 91 General: Well nourished, Well developed, No Acute Distress Head: Normocephalic, Atraumatic Eyes: Perrl, EOMI ENT: Moist mucous membranes, No rhinorrhea Neck: Supple, Nontender Cardiovascular: Regular rate, Regular rhythm, No murmurs Respiratory: No distress, Chest nontender, Rales Abdomen: Soft, Normal bowel sounds, - - He has significant abdominal distention he might have a fluid wave, there is no obvious rebound guarding organomegaly indicates he has had this degree of abdominal distention the past he was treated with Lasix. Negative for: Nondistended Back: Nontender, Normal Inspection Extremities: Nontender, Edema, - - Has significant edema to his lower legs wrapped in Ronak wraps Skin: Normal color, No rash Neurological: Alert, Oriented x3, Cranial nerves II-XII grossly intact, Normal Strength, Normal Sensation Psychological: Normal affect, Normal Mood Diagnostic/Tx/Re-eval - Medical Decision Making Clinically he appears to have anasarca he has marked abdominal distention marked lower extremity edema he has had this before he does have history of significant heart disease CHF diabetes peripheral vascular disease he cannot care for himself he indicates he has been having normal bowel bladder habits to certain the possibility of urinary retention he will see screening lab CT Meng catheter Patient's CT abdomen pelvis shows nothing acute please see that report, chest x- ray shows vascular prominence questionable left lower lung infiltrate versus vascularity, the patient screening labs are generally unremarkable creatinine 1.43, given all of the above we spoke with the hospitalist he has history of diastolic dysfunction he indicates he is more swollen he does appear to have quite a bit of abdominal distention, there is no ascites on CT, no signs of pleural effusions see those reports he was recently in the hospital and discharged a few days ago indicated he cannot function at home with all the above will arrange for admission for further management of his diastolic dy sfunction CHF Admit stable Final impression Congestive heart failure diastolic dysfunction diabetes heart disease peripheral vascular disease diabetic foot infections ED Disposition - Plan for ED Patient: Referrals: Johnathan Batres Chi, MD [Primary Care Provider] -
[2018-11-24 12:25] LABS: BNP,B-Type NATRIURETIC PEPTIDE 286.9 pg/mL (0-100)
--- NOTE | 2018-11-24 12:28 | RAD_ITS ---
STUDY: X-RAY CHEST REASON FOR EXAM: Male, 68 years old. Shortness of breath TECHNIQUE: Frontal view of the chest COMPARISON: None. FINDINGS: Post CABG changes are present. Pulmonary vascular prominence is present. There is a moderate left lower lung zone airspace infiltrate. There are no pleural effusions. There is no pneumothorax. The heart is enlarged. The visualized osseous structures are within normal limits. RAD/Chest 1 View (Portable) IMPRESSION: Pulmonary vascular prominence with moderate left lower lung zone airspace infiltrate. Cardiomegaly. Electronically Signed: Laureano Thakur, at 13:08 EDT Tel , Service support ,
[2018-11-24 13:44] LABS: Bacteria 0 SEEN /hpf (None Seen); Mucous, Urine 0 SEEN /hpf (<or=2+); Squamous Epithelial Cells - UA 0 SEEN /hpf (0-5)
[2018-11-24 13:49] LABS: Color, Urine Yellow (Yellow); Glucose, Dipstick 1000 mg/dl (Normal); Ketone-Dipstick Negative (Negative); Leukocyte Esterase-Dipstick 25 /ul (Negative); Nitrite-Dipstick Negative (Negative); Occult Blood-Urine 10 /ul (Negative); Protein-Dipstick Negative (Negative); Urine Bilirubin Dipstick Negative (Negative); Urine Clarity Clear (Clear); Urine Urobilinogen Normal (Normal)
[2018-11-24 13:59] LABS: Red Blood Cells-Urine 0-5 SEEN /hpf (0-5); White Blood Cells 0-5 SEEN /hpf (0-5)
[2018-11-24 16:20] LABS: Bedside Glucose 169 mg/dL (70-110)
--- NOTE | 2018-11-24 16:43 | PCM.HP.STD ---
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 of insulin (5) CAD (coronary artery disease) Status: Chronic (6) Hypertension Status: Chronic Qualifiers: Hypertension type: essential hypertension Qualified Code(s): I10 - Essential (primary) hypertension (7) Hyperlipidemia Status: Chronic Qualifiers: Hyperlipidemia type: unspecified Qualified Code(s): E78.5 - Hyperlipidemia, unspecified (8) Hypothyroidism Status: Chronic Qualifiers: Hypothyroidism type: unspecified Qualified Code(s): E03.9 - Hypothyroidism, unspecified (9) Sleep apnea Status: Chronic Qualifiers: Sleep apnea type: unspecified type Qualified Code(s): G47.30 - Sleep apnea, unspecified (10) Chronic kidney disease Status: Chronic Qualifiers: Chronic kidney disease stage: stage 3 (moderate) Qualified Code(s): N18.3 - Chronic kidney disease, stage 3 (moderate) (11) GERD (gastroesophageal reflux disease) Status: Chronic Qualifiers: Esophagitis presence: esophagitis presence not specified Qualified Code(s): K21.9 - Gastro-esophageal reflux disease without esophagitis (12) Pulmonary hypertension Status: Chronic (13) Morbid obesity Status: Chronic (14) History of hypothyroidism Status: Chronic History of Present Illness Date of Admission: 11/24/18 Chief Complaint: 13 pound weight gain The patient is a 68 year old M with pmhx as above who presented to the ER today with primary complaint of 13 pound weight gain since being discharged two days prior. He also has noted increased abdominal distention, increased LE edema, and increased SOB. He was discharged 2 days prior after being treated for cellulitis. He is on augmentin at home. He continued taking his lasix [place]. Despite this he has had increased edema. It should also be noted that he has had workup for abdominal distention in the past - on a previous admission I discussed his case with Dr. Chamorro, who noted no acute process for his distention, but that it was primarily caused by a large amount of intraperitoneal adiposity. He does appear to have some increased abdominal edema on CT abdomen and a cxr c/w CHF. He has a hx of CHF with preserved EF and pulmonary HTN - last echo 08/2018 with 60% EF stage 2 diastolic dysfunction and PASP of 54 mmHg. His LFTs are abnormal but I cannot find a hx of liver dz. 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) Edema leg (Chronic) Hammertoe of right foot (Chronic) Corns and callosities (Chronic) Diabetes mellitus (Chronic) Non-pressure chronic ulcer of other part of left foot with fat layer exposed (Chronic) dorsal left medial foot Non-pressure chronic ulcer of other part of right foot with fat layer exposed (Chronic) PAD (peripheral artery disease) (Chronic) Diabetes mellitus with neuropathy (Chronic) CAD (coronary artery disease) (Chronic) Malnutrition (Chronic) Delayed wound healing (Chronic) Lower extremity edema (Chronic) Hypertension (Chronic) Hyperlipidemia (Chronic) Hypothyroidism (Chronic) Coronary artery disease (Chronic) Sleep apnea (Chronic) Chronic kidney disease (Chronic) PAOD (peripheral arterial occlusive disease) (Chronic) GERD (gastroesophageal reflux disease) (Chronic) Muscle spasm (Chronic) Osteomyelitis of left foot (Chronic) Type 2 diabetes mellitus with diabetic polyneuropathy (Chronic) Pulmonary hypertension (Chronic) Obstructive sleep apnea (Chronic) Morbid obesity (Chronic) Non compliance with medical treatment (Chronic) Diabetic foot ulcers (Chronic) Aortocoronary bypass status (Chronic) Type II diabetes mellitus, uncontrolled (Chronic) History of esophageal reflux (Chronic) History of hyperlipidemia (Chronic) History of hypertension (Chronic) History of hypothyroidism (Chronic) Macular infarction (Chronic) Peripheral vascular disease (Chronic) Medical History: Medical History (Last Reviewed 08/16/18 @ 19:07 by Abran Garcia DO) Abdominal pain (Acute) R10.9 Abdominal distension (Acute) R14.0 Sepsis (Acute) A41.9 Osteomyelitis of foot (Acute) M86.9 Diabetes mellitus (Chronic) E11.9 Osteomyelitis of right foot (Acute) M86.9 Chronic ulcer of left foot with fat layer exposed (Resolved) L97.522 dorsal foot Hammer toe of right foot (Acute) M20.41 Non-pressure chronic ulcer of other part of left foot with fat layer exposed (Chronic) L97.522 dorsal left medial foot Non-pressure chronic ulcer of other part of right foot with fat layer exposed (Chronic) L97.512 PAD (peripheral artery disease) (Chronic) I73.9 Diabetes mellitus with neuropathy (Chronic) E11.40 Cellulitis of left foot (Acute) L03.116 Cellulitis of right foot (Acute) L03.115 Severe sepsis (Acute) A41.9, R65.20 CAD (coronary artery disease) (Chronic) I25.10 Malnutrition (Chronic) E46 Delayed wound healing (Chronic) T14.8 Lower extremity edema (Chronic) R60.0 Chronic ulcer of left foot with fat layer exposed (Resolved) L97.522 left plantar foot DFU Ulcer of right foot with fat layer exposed (Resolved) L97.512 Hypertension (Chronic) I10 Hyperlipidemia (Chronic) E78.5 Hypothyroidism (Chronic) E03.9 Coronary artery disease (Chronic) I25.10 Sleep apnea (Chronic) G47.30 Chronic kidney disease (Chronic) N18.9 PAOD (peripheral arterial occlusive disease) (Chronic) I77.9 GERD (gastroesophageal reflux disease) (Chronic) K21.9 Muscle spasm (Chronic) M62.838 Osteomyelitis of left foot (Chronic) M86.9 Type 2 diabetes mellitus with diabetic polyneuropathy (Chronic) E11.42 Cellulitis of left foot (Acute) L03.116 Pulmonary hypertension (Chronic) I27.2 Obstructive sleep apnea (Chronic) G47.33 Morbid obesity (Chronic) E66.01 Non compliance with medical treatment (Chronic) Z91.19 Diabetic foot ulcers (Chronic) E11.621, L97.509 Type II diabetes mellitus, uncontrolled (Chronic) E11.65 History of esophageal reflux (Chronic) Z87.19 History of hyperlipidemia (Chronic) Z86.39 Hiatal hernia K44.9 Allergies adhesive Allergy (Verified 11/24/18 11:01) SKIN GETS PULLED OFF SKIN GETS PULLED OFF latex Allergy (Verified 11/24/18 11:01) Hives Home Medications: Ambulatory Orders Medication Instructions Recorded Clopidogrel Bisulfate [Plavix] 75 mg PO DAILY 05/15/13 Levothyroxine [Synthroid] 200 mcg PO DAILY 05/15/13 Metoprolol Tartrate [Lopressor 50 mg PO BID 05/15/13 (beta ramo)] Atorvastatin Calcium [Lipitor] 80 mg PO QHS 01/12/16 Pantoprazole Sodium [Protonix] 20 mg PO DAILY 01/12/16 Iron Polysaccharide Complex 150 mg PO DAILYCM #30 cap 09/07/17 [Ferrex 150] Linagliptin [Tradjenta] 5 mg PO DAILY #30 tab 09/07/17 Aspirin E.C. [Ecotrin] 81 mg PO DAILY@0800 01/16/18 Fluticasone 0.05% [Flonase Nasal 1 spray NASAL DAILY 01/16/18 [place]] Meclizine HCl 25 mg PO TID 01/16/18 Baclofen 10 mg PO TID 08/16/18 Plecanatide [Trulance] 3 mg PO DAILY 08/16/18 Furosemide [Lasix] 80 mg PO BIDLX 11/19/18 Lisinopril 2.5 mg PO DAILY 11/19/18 Metolazone 2.5 mg PO BID 11/19/18 Amoxicillin/Potassium Clav 1 each PO BID #20 tablet 11/21/18 [Augmentin 875-125 Tablet] Insulin Glargine,Hum.rec.anlog 200 unit SQ DAILY 11/24/18 [Toheather Solmoises] Surgical History: Surgical History (Last Reviewed 08/16/18 @ 19:07 by Abran Garcia DO) Aortocoronary bypass status (Chronic) Z95.1 History brain urgery History of Gallbladder removal Surgical History: angioplasty, cholecystectomy, coronary bypass surgery, - Smoking Status: Former smoker - *Family History Paternal Family History: Family History (Last Reviewed 08/16/18 @ 19:08 by Abran Garcia DO) Grandfather Diabetes Heart disease Hypertension High blood cholesterol CVA (cerebral vascular accident) Son Thyroid disorder History Items: No pertinent history Maternal Family History: Family History (Last Reviewed 08/16/18 @ 19:08 by Abran Garcia DO) Grandfather Diabetes Heart disease Hypertension High blood cholesterol CVA (cerebral vascular accident) Son Thyroid disorder History Items: - Review of Systems Constitutional: Reports: Malaise, Weakness, Weight Change. Denies: Chills, Fever HEENT: Denies: Head Aches, Sinus Congestion, Sinus Drainage Cardiovascular: Reports: Edema. Denies: Chest Pain, Chest Tightness, Heaviness, Light Headedness, Palpitations Respiratory: Reports: Shortness of Breath, Shortness of breath at rest, Shortness of breath upon exertion. Denies: Cough, Sputum production Gastrointestinal: Reports: - - distention. Denies: Abdominal Pain, Nausea, Vomiting Genitourinary: Denies: Dysuria Musculoskeletal: Denies: Joint Pain, Joint Tenderness Skin: Denies: Rash, Wounds Neurological: Denies: Numbness, Tingling, Focal weakness Psychiatric: Denies: Anxiety, Depression, Homicidal Ideations, Suicidal Ideations Hematologic/ Lymphatic: Denies: Easy Bruising, Easy Bleeding VTE Information - Inpt Only VTE Present on Admission: No VTE Mechan Device Prophylaxis: None VTE Pharm Prophylaxis ordered?: Yes Patient Problems: Active and Suspected Problems (Last Reviewed 08/16/18 @ 19:07 by Abran Garcia DO) Congestive heart failure (Acute) - Physical Exam General: Alert, Oriented x3, Cooperative HEENT: Atraumatic, PERRLA, EOMI, Normocephalic Neck: Supple, No JVD, Negative Carotid Bruits Lungs: Normal air movement, Rales - faint at bases Cardiovascular: Regular rate, No murmurs Abdomen: Bowel Sounds Present, Soft, Obese, Tender Extremities: Capillary Refill Less than 3 Seconds, Edema Skin: No rashes, No breakdown Musculoskeletal: No Tenderness to Palpation of Joints or Extremities Neurological: Cranial nerves II-XII grossly intact Psych/Mental Status: Normal Affect, Appropriate, Alert and oriented to time, place, person, mood and affect Vital Signs Temp Pulse Resp BP Pulse Ox 97.5 F L 81 20 H 125/60 H 97 11/24/18 14:50 11/24/18 15:31 11/24/18 14:50 11/24/18 14:50 11/24/18 14:50 Oxygen Delivery Method Room Air Weight: 272 lb 4.334 oz Body Mass Index (BMI) 38.0 Finger Stick Blood Glucose 91 Laboratory Tests Past 24 Hrs 11/24/18 11/24/18 11/24/18 11:20 11:20 11:20 WBC 5.3 RBC 3.58 L Hgb 10.9 L Hct 33.7 L MCV 94.1 H MCH 30.4 MCHC 32.3 RDW 16.3 H RDW Differential 56.8 H Plt Count 247 MPV 10.0 Immature Gran % (Auto) 0.400 Neut % (Auto) 67.1 Lymph % (Auto) 14.7 L [place] % (Auto) 12.5 H Eos % (Auto) 4.5 Baso % (Auto) 0.8 Absolute Neuts (auto) 3.6 Absolute Lymphs (auto) 0.78 L Total Counted Not Reportable Sodium 138 Potassium 4.4 Chloride 106 Carbon Dioxide 28.0 Anion Gap 4 L BUN 45 H Creatinine 1.43 H Estim Creat Clear Calc 52.47 Est GFR (MDRD) Af Amer 64 Est GFR (MDRD) Non-Af 53 L BUN/Creatinine Ratio 31.5 H Glucose 247 H Calcium 7.8 L Total Bilirubin 0.40 Direct Bilirubin 0.14 AST 234 H ALT 199 H Alkaline Phosphatase 135 H Troponin I B-Natriuretic Peptide 286.9 H Total Protein 6.7 Albumin 2.6 L Globulin 4.1 Lipase 110 Urine Color Urine Clarity Urine pH Ur Specific [place] Urine Protein Urine Glucose (UA) Urine Ketones Urine Occult Blood Urine Nitrite Urine Bilirubin Urine Urobilinogen Ur Leukocyte Esterase Urine RBC Urine WBC Ur Squamous Epith Cells Urine Bacteria Urine Mucus 11/24/18 11/24/18 11:20 13:41 WBC RBC Hgb Hct MCV MCH MCHC RDW RDW Differential Plt Count MPV Immature Gran % (Auto) Neut % (Auto) Lymph % (Auto) [place] % (Auto) Eos % (Auto) Baso % (Auto) Absolute Neuts (auto) Absolute Lymphs (auto) Total Counted Sodium Potassium Chloride Carbon Dioxide Anion Gap BUN Creatinine Estim Creat Clear Calc Est GFR (MDRD) Af Amer Est GFR (MDRD) Non-Af BUN/Creatinine Ratio Glucose Calcium Total Bilirubin Direct Bilirubin AST ALT Alkaline Phosphatase Troponin I < 0.015 B-Natriuretic Peptide Total Protein Albumin Globulin Lipase Urine Color Yellow Urine Clarity Clear Urine pH 6.0 Ur Specific [place] 1.010 Urine Protein Negative Urine Glucose (UA) 1000 H Urine Ketones Negative Urine Occult Blood 10 H Urine Nitrite Negative Urine Bilirubin Negative Urine Urobilinogen Normal Ur Leukocyte Esterase 25 H Urine RBC 0-5 SEEN Urine WBC 0-5 SEEN Ur Squamous Epith Cells 0 SEEN Urine Bacteria 0 SEEN Urine Mucus 0 SEEN POC Glucose 11/24/18 16:18 POC Glucose 169 H Assessment/Plan All Active Problems (Last Reviewed 08/16/18 @ 19:07 by Abran Garcia DO) Diabetic ulcer of toe of right foot associated with diabetes mellitus due to underlying condition (Acute) 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 Acute on chronic diastolic CHF complicated by moderate pulmonary edema - see echo 08/2018. IV lasix. CT abdomen with some increased edema, SOB and LE edema, CXR c/w CHF. BNP mildly elevated. 13 pound weight gain since discharge 2 days prior. reports compliance with home lasix. Trop neg. 2. Recent cellulitis - complete the ten days of augmentin presscribed for MSSA> 3. Abnormal LFTs - unclear etiology. Liver is unremarkable on CT abdomen today. Consider US. 4. DMt2 with morbid obesity - continue long acting plus SSI 5. CAD - continue lopressor, statin, asa, lisinopril. Prior cabg, stents. 6. SYED - CPAP qhs 7. Chronic constipation - pt of Dr. Chamorro. on trulance 8. hypothyroidism - synthroid. 9. CKD III - at or below baseline. DVT ppx: heparin DC planning: multiple admission recently. PTOT, may need placed This patient was seen by Juan Chaudhry PA-C under the supervision of Dr. Lloyd.
[2018-11-24] MEDS: Insulin Lispro 100 UNIT/ML INSULN.PEN SQ ×2 (16:54→21:06)
[2018-11-24] MEDS: Heparin Injection (Vial) 5,000 UNIT/ML VIAL 5000 UNIT SC (21:07)
[2018-11-24] MEDS: Furosemide 100 MG/10 ML Vial 60 MG IV (21:07)
[2018-11-24] MEDS: Metoprolol Tartrate 50 MG Tablet PO (21:08)
[2018-11-24] MEDS: Amox/Clavulanate 875 MG Tablet PO (21:08)
[2018-11-24] MEDS: Atorvastatin Calcium 80 MG Tablet PO (21:08)
[2018-11-24 22:10] LABS: Bedside Glucose 209 mg/dL (70-110)
[2018-11-25] VITALS (16 sets, daily range): BP systolic 113–139; BP diastolic 53–74; PULSE 68–80; RESP 16–18; TEMP 36.7–37.2; O2SAT 89–96
[2018-11-25 05:34] LABS: Anion Gap 9 (5-15); BUN 41 mg/dL (7-18); BUN/Creat Ratio 28.3 RATIO (10-20); Calcium,Total 7.7 mg/dL (8.5-10.1); Chloride 105 mmol/L (98-107); Creatinine, Serum 1.45 mg/dL (0.70-1.30); EST Glomerular Filtration Rate 52 mL/min (>60); Est Glom Filt Rate - Afr Amer 63 mL/min (>60); Estimated Creatinine Clearance 53.37 ml/min; Glucose 146 mg/dL (74-106); Sodium Level 141 mmol/L (136-145)
[2018-11-25] MEDS: Levothyroxine 100 MCG Tablet 200 MCG PO (06:00)
[2018-11-25] MEDS: Furosemide 100 MG/10 ML Vial 60 MG IV ×3 (06:01→21:36)
[2018-11-25] MEDS: Heparin Injection (Vial) 5,000 UNIT/ML VIAL 5000 UNIT SC ×3 (06:02→21:37)
[2018-11-25] MEDS: 0.9% NaCl Peripheral Flush Adult/Peds IV ×2 (06:02→13:13)
[2018-11-25 06:55] LABS: Bedside Glucose 113 mg/dL (70-110)
--- NOTE | 2018-11-25 09:37 | CASEMGMT ---
Patient is active with [employer]. [place] called [facility] and spoke with Deepthi on the coverage line. Rosy Simpson patient's family caseworker. HE has aides from [employer] 2 hrs a day M-F, He gets 9 [employer] delivered a week, and he has a lifeline button. [place] will let [facility] know when patient is discharged. Yas SCOTT BOOKING POLICE OFFICER
[2018-11-25] MEDS: Lisinopril 2.5 MG Tablet PO (10:41)
[2018-11-25] MEDS: Pantoprazole Sodium 20 MG Tablet PO (10:41)
[2018-11-25] MEDS: Aspirin E.C. 81 MG Tablet PO (10:41)
[2018-11-25] MEDS: Metoprolol Tartrate 50 MG Tablet PO ×2 (10:41→21:38)
[2018-11-25] MEDS: Amox/Clavulanate 875 MG Tablet PO ×2 (10:41→21:38)
[2018-11-25] MEDS: Clopidogrel Bisulfate 75 MG Tablet PO (10:41)
[2018-11-25 11:41] LABS: Bedside Glucose 182 mg/dL (70-110)
--- NOTE | 2018-11-25 13:11 | CASEMGMT ---
Assessment- SW completed assessment with patient. Living situation- Patient lives alone with his cat in an apartment. He has an elevator. PCP: Dr Batres Specialists: Podiatry-Dr Thomas, Cardiology Dr Light, and Opthamology Dr Lima Pharmacy: [facility] DME: Rollator, shower bench, grab bars, and glucometer. ADL's/IADL's: Patient normally uses his rollator. His aide helps him with bathing Past SNF/rehab: He has been to a SNF in past, He does not remember name Past HH: Patient currently has [facility] correction LW: Yes and it is on file at [facility] POA: Yes and it is on file at [facility]-Sister Lorena Dao Patient has Passport. His Lunchroom Aide is Rosy Simpson. He has an aide from [employer] that comes 2 hours daily M-F. He also has meals delivered from [employer] and a medical alert button. He normally drives himself to appts. He plans on returning home at discharge and resuming services. He has no preference for O2 company if he needs O2 at discharge. Yas SCOTT FITNESS/WELLNESS DIRECTOR
[2018-11-25] MEDS: Insulin Lispro 100 UNIT/ML INSULN.PEN SQ ×2 (13:13→16:32)
[2018-11-25] MEDS: Polyethylene Glycol 3350 17 GM PACKET PO (13:13)
[2018-11-25] MEDS: Magnesium Hydroxide 30 ML UDC PO (13:13)
--- NOTE | 2018-11-25 14:18 | PCM.PROGNOTE ---
Patient Problems: Active and Suspected Problems (Last Reviewed 08/16/18 @ 19:07 by Abran Garcia DO) Congestive heart failure (Acute) - Physical Exam General: Alert, Oriented x3, Cooperative HEENT: Atraumatic, PERRLA, EOMI, Normocephalic Neck: Supple, No JVD, Negative Carotid Bruits Lungs: Diminished, Rales Cardiovascular: Regular rate, No murmurs Abdomen: Bowel Sounds Present, Soft, Obese, Tender Extremities: Capillary Refill Less than 3 Seconds, Edema Skin: No rashes, No breakdown Musculoskeletal: No Tenderness to Palpation of Joints or Extremities Neurological: Cranial nerves II-XII grossly intact Psych/Mental Status: Normal Affect, Appropriate, Alert and oriented to time, place, person, mood and affect Vital Signs Temp Pulse Resp BP Pulse Ox 98.6 F 79 16 120/74 92 11/25/18 10:40 11/25/18 10:41 11/25/18 10:40 11/25/18 10:40 11/25/18 10:40 Oxygen Flow Rate (L/min) 1 Oxygen Delivery Method Nasal Cannula Weight: 271 lb 9.752 oz Body Mass Index (BMI) 38.0 Finger Stick Blood Glucose 91 Intake and Output for Last 24 Hours 11/23/18 11/24/18 11/25/18 23:59 23:59 23:59 Intake Total 480 / 480 1440 / 1440 Output Total 475 / 475 4500 / 4500 Balance 5 / 5 -3060 / -3060 Laboratory Tests Past 24 Hrs 11/25/18 04:55 Sodium 141 Potassium 5.0 Chloride 105 Carbon Dioxide 27.0 Anion Gap 9 BUN 41 H Creatinine 1.45 H Estim Creat Clear Calc 53.37 Est GFR (MDRD) Af Amer 63 Est GFR (MDRD) Non-Af 52 L BUN/Creatinine Ratio 28.3 H Glucose 146 H Calcium 7.7 L POC Glucose 11/25/18 11/25/18 11/24/18 11:35 06:51 20:54 POC Glucose 182 H 113 H 209 H 11/24/18 16:18 POC Glucose 169 H Medical Necessity - Tobacco Use Smoking Status: Former smoker Assessment/Plan All Active Problems (Last Reviewed 08/16/18 @ 19:07 by Abran Garcia DO) Diabetic ulcer of toe of right foot associated with diabetes mellitus due to underlying condition (Acute) 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 Acute on chronic diastolic CHF complicated by moderate pulmonary edema - see echo 08/2018. IV lasix. CT abdomen with some increased edema, SOB and LE edema, CXR c/w CHF. BNP mildly elevated. 13 pound weight gain since discharge 2 days prior. reports compliance with home lasix. Trop neg. -continue lasix -out 3 liters already -symptoms mildly improved, he would benefit from further IV diuresis. He will need a higher dose of lasix at home -Refer to pulmonology as o/p regarding Pulmonary HTN. 2. Recent cellulitis - complete the ten days of augmentin prescribed for MSSA 3. Abnormal LFTs - unclear etiology. Liver is unremarkable on CT abdomen today. Consider US. 4. DMt2 with morbid obesity - continue long acting plus SSI 5. CAD - continue lopressor, statin, asa, lisinopril. Prior cabg, stents. 6. SYED - CPAP qhs 7. Chronic constipation - pt of Dr. Chamorro. on trulance 8. hypothyroidism - synthroid. 9. CKD III - at or below baseline. DVT ppx: heparin DC planning: multiple admission recently. PTOT, may need placed. Continue IV diuresis. This patient was seen by Juan Chaudhry PA-C under the supervision of Dr. Lloyd.
--- NOTE | 2018-11-25 14:21 | PN_ITS ---
Addendum entered and electronically signed by EARNEST Horner 11/25/18 16:00: Code Visit Addendum: Subjective: Pt noted that he has had improvement in his SOB today. He continues to complain of abdominal distention and pain, tenderness to light touch in his stomach and legs and does not want anyone to palpate him. He does feel that he is somewhat improved, and has been emptying his bladder frequently. He is out about 3 liters so far today. He has no CP/palpitations/LH or Dizziness. No n/v/d, and no fevers or chills. He has a dry cough today. Original Note: Patient Problems: Active and Suspected Problems (Last Reviewed 08/16/18 @ 19:07 by Abran Garcia DO) Congestive heart failure (Acute) - Physical Exam General: Alert, Oriented x3, Cooperative HEENT: Atraumatic, PERRLA, EOMI, Normocephalic Neck: Supple, No JVD, Negative Carotid Bruits Lungs: Diminished, Rales Cardiovascular: Regular rate, No murmurs Abdomen: Bowel Sounds Present, Soft, Obese, Tender Extremities: Capillary Refill Less than 3 Seconds, Edema Skin: No rashes, No breakdown Musculoskeletal: No Tenderness to Palpation of Joints or Extremities Neurological: Cranial nerves II-XII grossly intact Psych/Mental Status: Normal Affect, Appropriate, Alert and oriented to time, place, person, mood and affect Vital Signs Temp Pulse Resp BP Pulse Ox 98.6 F 79 16 120/74 92 11/25/18 10:40 11/25/18 10:41 11/25/18 10:40 11/25/18 10:40 11/25/18 10:40 Oxygen Flow Rate (L/min) 1 Oxygen Delivery Method Nasal Cannula Weight: 271 lb 9.752 oz Body Mass Index (BMI) 38.0 Finger Stick Blood Glucose 91 Intake and Output for Last 24 Hours 11/23/18 11/24/18 11/25/18 23:59 23:59 23:59 Intake Total 480 / 480 1440 / 1440 Output Total 475 / 475 4500 / 4500 Balance 5 / 5 -3060 / -3060 Laboratory Tests Past 24 Hrs 11/25/18 04:55 Sodium 141 Potassium 5.0 Chloride 105 Carbon Dioxide 27.0 Anion Gap 9 BUN 41 H Creatinine 1.45 H Estim Creat Clear Calc 53.37 Est GFR (MDRD) Af Amer 63 Est GFR (MDRD) Non-Af 52 L BUN/Creatinine Ratio 28.3 H Glucose 146 H Calcium 7.7 L POC Glucose 11/25/18 11/25/18 11/24/18 11:35 06:51 20:54 POC Glucose 182 H 113 H 209 H 11/24/18 16:18 POC Glucose 169 H Medical Necessity - Tobacco Use Smoking Status: Former smoker Assessment/Plan All Active Problems (Last Reviewed 08/16/18 @ 19:07 by Abran Garcia DO) Diabetic ulcer of toe of right foot associated with diabetes mellitus due to underlying condition (Acute) 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 Acute on chronic diastolic CHF complicated by moderate pulmonary edema - see echo 08/2018. IV lasix. CT abdomen with some increased edema, SOB and LE edema, CXR c/w CHF. BNP mildly elevated. 13 pound weight gain since discharge 2 days prior. reports compliance with home lasix. Trop neg. -continue lasix -out 3 liters already -symptoms mildly improved, he would benefit from further IV diuresis. He will need a higher dose of lasix at home -Refer to pulmonology as o/p regarding Pulmonary HTN. 2. Recent cellulitis - complete the ten days of augmentin prescribed for MSSA 3. Abnormal LFTs - unclear etiology. Liver is unremarkable on CT abdomen today. Consider US. 4. DMt2 with morbid obesity - continue long acting plus SSI 5. CAD - continue lopressor, statin, asa, lisinopril. Prior cabg, stents. 6. SYED - CPAP qhs 7. Chronic constipation - pt of Dr. Chamorro. on trulance 8. hypothyroidism - synthroid. 9. CKD III - at or below baseline. DVT ppx: heparin DC planning: multiple admission recently. PTOT, may need placed. Continue IV diuresis. This patient was seen by Juan Chaudhry PA-C under the supervision of Dr. Lloyd.
[2018-11-25 16:40] LABS: Bedside Glucose 200 mg/dL (70-110)
[2018-11-25] MEDS: Atorvastatin Calcium 80 MG Tablet PO (21:38)
[2018-11-25 22:41] LABS: Bedside Glucose 130 mg/dL (70-110)
[2018-11-26] VITALS (9 sets, daily range): BP systolic 126–146; BP diastolic 62–69; PULSE 69–80; RESP 16–18; TEMP 36.7–36.9; O2SAT 87–96
[2018-11-26] MEDS: 0.9% NaCl Peripheral Flush Adult/Peds IV (05:43)
[2018-11-26] MEDS: Heparin Injection (Vial) 5,000 UNIT/ML VIAL 5000 UNIT SC (05:44)
[2018-11-26] MEDS: Levothyroxine 100 MCG Tablet 200 MCG PO (05:44)
[2018-11-26] MEDS: Furosemide 100 MG/10 ML Vial 60 MG IV (05:44)
--- NOTE | 2018-11-26 05:55 | RAD_ITS ---
STUDY: X-RAY CHEST REASON FOR EXAM: Male, 68 years old. Shortness of breath/dyspnea. TECHNIQUE: AP and lateral views of the chest. COMPARISON: Comparison is made with prior study dated November 24, 2018. FINDINGS: EKG electrodes are seen. Gastric congestion and mild CHF. There has been improvement as compared to prior study. Persistent increased markings at the left lung base suggestive of left basilar atelectasis and/or infiltrate. This is unchanged. Blunting of the left cosmetic angle. Sternal cerclage wires and vascular clips are present from a prior sternotomy and coronary artery bypass graft procedure (CABG). Moderate cardiomegaly. Normal mediastinum and catrina. Normal visualized pulmonary arteries. Normal visualized aortic arch and descending thoracic aorta. Normal visualized thoracic spine. Normal visualized ribs, clavicles, and shoulders. There is no demonstrated abnormality of the visualized soft tissue structures of the upper abdomen. RAD/Chest PA and Lateral IMPRESSION: Residual CHF although there has been improvement. Stable left lower lobe atelectasis and/or infiltrate with blunting of the left costophrenic angle. Electronically Signed: Wai Cortez, at 12:29 EDT , Service support ,
[2018-11-26 06:26] LABS: Bedside Glucose 71 mg/dL (70-110)
[2018-11-26 06:26] LABS: Bedside Glucose 36 mg/dL (70-110)
[2018-11-26 06:26] LABS: Bedside Glucose 45 mg/dL (70-110)
[2018-11-26 06:31] LABS: Anion Gap 7 (5-15); BUN 39 mg/dL (7-18); BUN/Creat Ratio 27.1 RATIO (10-20); Calcium,Total 8.4 mg/dL (8.5-10.1); Chloride 101 mmol/L (98-107); Creatinine, Serum 1.44 mg/dL (0.70-1.30); EST Glomerular Filtration Rate 52 mL/min (>60); Est Glom Filt Rate - Afr Amer 63 mL/min (>60); Estimated Creatinine Clearance 53.74 ml/min; Glucose 50 mg/dL (74-106); Potassium 3.7 mmol/L (3.5-5.1); Sodium Level 140 mmol/L (136-145)
[2018-11-26] MEDS: Amox/Clavulanate 875 MG Tablet PO (09:33)
[2018-11-26] MEDS: Lisinopril 2.5 MG Tablet PO (09:33)
[2018-11-26] MEDS: Aspirin E.C. 81 MG Tablet PO (09:33)
[2018-11-26] MEDS: Clopidogrel Bisulfate 75 MG Tablet PO (09:33)
[2018-11-26] MEDS: Pantoprazole Sodium 20 MG Tablet PO (09:33)
[2018-11-26] MEDS: Metoprolol Tartrate 50 MG Tablet PO (09:33)
[2018-11-26] MEDS: Insulin Lispro 100 UNIT/ML INSULN.PEN SQ (11:01)
[2018-11-26 11:10] LABS: Bedside Glucose 179 mg/dL (70-110)
--- NOTE | 2018-11-26 11:17 | CASEMGMT ---
Addendum entered by Ronald Hernandez 11/26/18 14:05: Discharge summary faxed to [facility] w/documentation for necessity of oxygen. Original Note: ISABEL ROQUE NOTE: Home Oxygen ambulatory testing completed and pt qualifies for Oxygen. Script obtained and faxed to [facility]. Call placed to [facility] and they were made aware pt is discharging today. Awaiting delivery of portable oxygen tank. Call placed to Millie @ [facility] and she was made aware pt is discharging today. Liban ROQUE RN CM
--- NOTE | 2018-11-26 11:45 | PCM.DC ---
- Discharge Diagnoses Current Active Problems: Current Active and Chronic Problems (Last Reviewed 08/16/18 @ 19:07 by Abran Garcia DO) Congestive heart failure (Acute) You will use the following diet at home:: Cardiac Your food should be the consistency of: Regular Your liquids should be the consistency of: Regular/Thin Discharge Activity: Return to Normal Activity Allergies/Adverse Reactions: Allergies adhesive Allergy (Verified 11/24/18 11:01) SKIN GETS PULLED OFF SKIN GETS PULLED OFF latex Allergy (Verified 11/24/18 11:01) Hives Medications to take at Discharge Clopidogrel Bisulfate [Plavix] 75 mg PO DAILY 05/15/13 Levothyroxine [Synthroid] 200 mcg PO DAILY 05/15/13 Metoprolol Tartrate [Lopressor (beta ramo)] 50 mg PO BID 05/15/13 Atorvastatin Calcium [Lipitor] 80 mg PO QHS 01/12/16 Pantoprazole Sodium [Protonix] 20 mg PO DAILY 01/12/16 Iron Polysaccharide Complex [Ferrex 150] 150 mg PO DAILYCM #30 cap 09/07/17 Linagliptin [Tradjenta] 5 mg PO DAILY #30 tab 09/07/17 Aspirin E.C. [Ecotrin] 81 mg PO DAILY@0800 01/16/18 Fluticasone 0.05% [Flonase Nasal [place]] 1 spray NASAL DAILY 01/16/18 Meclizine HCl 25 mg PO TID 01/16/18 Baclofen 10 mg PO TID 08/16/18 Plecanatide [Trulance] 3 mg PO DAILY 08/16/18 Furosemide [Lasix] 80 mg PO BIDLX 11/19/18 Lisinopril 2.5 mg PO DAILY 11/19/18 Amoxicillin/Potassium Clav [Augmentin 875-125 Tablet] 1 each PO BID #20 tablet 11/21/18 Insulin Glargine,Hum.rec.anlog [Toujeo Solostar] 200 unit SQ DAILY 11/24/18 Metolazone [Zaroxolyn] 2.5 mg PO DAILY #90 tab 11/26/18 The following prescriptions were given: Metolazone [Zaroxolyn] 2.5 mg PO DAILY #90 tab Transmission Status: [id number] Primary Care Physician: Medardo,Johnathan Chi, MD [Primary Care Provider] - Please follow up with your Primary Care Physician in: 1 week Test Results: Test results from this visit will be discussed in further detail at your follow-up appointment, if applicable. Proposed Discharge Date: 11/26/18
--- NOTE | 2018-11-26 12:58 | PCM.DC.SUM ---
<Branden Chaudhryy - Last Filed: 11/26/18 12:58> Discharge Date and Diagnosis - Problem List Patient Problems: Active and Suspected Problems (Last Reviewed 08/16/18 @ 19:07 by Abran Garcia DO) Congestive heart failure (Acute) Date of Admission: 11/24/18 Date of Discharge: 11/26/18 - Primary Discharge Diagnosis Active and Suspected Problems (Last Reviewed 08/16/18 @ 19:07 by Abran Garcia DO) Acute on chronic diastolic congestive heart failure complicated by moderate pulmonary hypertension Recent cellulitis with MSSA, on outpatient regimen of Augmentin Abnormal LFTs, unclear etiology Type 2 diabetes with morbid obesity CAD, prior stents, prior CABG Chronic constipation Hypothyroidism CKD stage III Recurrent complaints of abdominal distention, in the past secondary to large quantity of intraperitoneal adiposity - Secondary Discharge Diagnosis Chronic Problems (Last Reviewed 08/16/18 @ 19:07 by Abran Garcia DO) Blister of left leg (Chronic) Subungual hematoma of toe of right foot (Chronic) Skin ulcer of third toe of right foot with fat layer exposed (Chronic) 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) Edema leg (Chronic) Hammertoe of right foot (Chronic) Corns and callosities (Chronic) Diabetes mellitus (Chronic) Non-pressure chronic ulcer of other part of left foot with fat layer exposed (Chronic) dorsal left medial foot Non-pressure chronic ulcer of other part of right foot with fat layer exposed (Chronic) PAD (peripheral artery disease) (Chronic) Diabetes mellitus with neuropathy (Chronic) CAD (coronary artery disease) (Chronic) Malnutrition (Chronic) Delayed wound healing (Chronic) Lower extremity edema (Chronic) Hypertension (Chronic) Hyperlipidemia (Chronic) Hypothyroidism (Chronic) Coronary artery disease (Chronic) Sleep apnea (Chronic) Chronic kidney disease (Chronic) PAOD (peripheral arterial occlusive disease) (Chronic) GERD (gastroesophageal reflux disease) (Chronic) Muscle spasm (Chronic) Osteomyelitis of left foot (Chronic) Type 2 diabetes mellitus with diabetic polyneuropathy (Chronic) Pulmonary hypertension (Chronic) Obstructive sleep apnea (Chronic) Morbid obesity (Chronic) Non compliance with medical treatment (Chronic) Diabetic foot ulcers (Chronic) Aortocoronary bypass status (Chronic) Type II diabetes mellitus, uncontrolled (Chronic) History of esophageal reflux (Chronic) History of hyperlipidemia (Chronic) History of hypertension (Chronic) History of hypothyroidism (Chronic) Macular infarction (Chronic) Peripheral vascular disease (Chronic) Hospital Course and Treatment Imaging Results: IMAGING: CT/Abdomen/Pelvis without Cont IMPRESSION: No acute abdominal or pelvic pathology demonstrated on this noncontrast CT. Small left pleural effusion with adjacent atelectasis, increased from prior. Status post cholecystectomy. Mild to moderate diffuse edema in the subcutaneous fat. RAD/Chest 1 View (Portable) IMPRESSION: Pulmonary vascular prominence with moderate left lower lung zone airspace infiltrate. Cardiomegaly. RAD/Chest PA and Lateral IMPRESSION: Residual CHF although there has been improvement. Stable left lower lobe atelectasis and/or infiltrate with blunting of the left costophrenic angle. Operations: None Procedures: None Summary of Care Provided: Hospital course: The patient is a 68 year old M with pmhx as above who presented to the ER with increased SOB, LE edema, and abdominal distention. CT abdomen showed small left pleural effusion and atelectasis, mild to moderate diffuse edema in the subcutaneous fat, and CXR was c/w CHF. BNP was elevated. He was admitted for acute diastolic CHF exacerbation and provided with IV lasix. He had an echo 08/2018 so repeat was deferred, at that time EF 60%, Stage 2 diastolic dysfunction, PASP 54 mmHg, 2+ TVI. He responded well to lasix and diuresed 4 liters the first day. He was kept for further diuresis and continue to have improvement in his symptoms particularly LE edema and SOB. He did qualify for oxygen, he is ambulatory at home and in the community, and requires 2 lpm at rest and with exertion to maintain adequate sats. He was discharged home with resumption of home care services in stable condition. He already takes 80 mg lasix BID at home along with 2.5 mg metazolone BID, we increased his AM dose of metazolone at 5 mg in addition to the 2.5 at night. He needs to follow up with his PCP in 1 weeks. This patient was seen by Juan Chaudhry PA-C under the supervision of Doctor Ramos. [] Patient Problems: Active and Suspected Problems (Last Reviewed 08/16/18 @ 19:07 by Abran Garcia DO) Congestive heart failure (Acute) - Physical Exam General: Alert, Oriented x3, Cooperative HEENT: Atraumatic, PERRLA, EOMI, Normocephalic Neck: Supple, No JVD, Negative Carotid Bruits Lungs: Clear to auscultation, Diminished Cardiovascular: Regular rate, No murmurs Abdomen: Bowel Sounds Present, Soft, Non Tender, Obese Extremities: Capillary Refill Less than 3 Seconds, Edema - improved pitting edema BLE Skin: No rashes, No breakdown Musculoskeletal: No Tenderness to Palpation of Joints or Extremities Neurological: Cranial nerves II-XII grossly intact Psych/Mental Status: Normal Affect, Appropriate, Alert and oriented to time, place, person, mood and affect Vital Signs Temp Pulse Resp BP Pulse Ox 98.4 F 80 18 126/69 H 89 11/26/18 09:30 11/26/18 09:33 11/26/18 09:30 11/26/18 09:30 11/26/18 09:45 Oxygen Flow Rate (L/min) [ 2 AMBULATION with Oxygen] Oxygen Flow Rate (L/min) 1 Oxygen Delivery Method Nasal Cannula Weight: 270 lb 11.642 oz Body Mass Index (BMI) 38.0 Finger Stick Blood Glucose 91 Intake and Output for Last 24 Hours 11/24/18 11/25/18 11/26/18 23:59 23:59 23:59 Intake Total 480 / 960 2097 / 2097 600 / 600 Output Total 475 / 2275 6550 / 6550 1800 / 1800 Balance 5 / -1315 -4453 / -4453 -1200 / -1200 Laboratory Tests Past 24 Hrs 11/26/18 05:55 Sodium 140 Potassium 3.7 Chloride 101 Carbon Dioxide 32.0 Anion Gap 7 BUN 39 H Creatinine 1.44 H Estim Creat Clear Calc 53.74 Est GFR (MDRD) Af Amer 63 Est GFR (MDRD) Non-Af 52 L BUN/Creatinine Ratio 27.1 H Glucose 50 L Calcium 8.4 L POC Glucose 11/26/18 11/26/18 11/26/18 10:59 06:12 05:56 POC Glucose 179 H 71 45 L 11/26/18 11/25/18 11/25/18 05:37 21:34 16:31 POC Glucose 36 L* 130 H 200 H Discharge Diet: Low fat/ Low Cholesterol, 2000 mg Sodium Diet Discharge Activity: Return to Normal Activity Home Medications: Medications to take at Discharge Clopidogrel Bisulfate [Plavix] 75 mg PO DAILY 05/15/13 Levothyroxine [Synthroid] 200 mcg PO DAILY 05/15/13 Metoprolol Tartrate [Lopressor (beta ramo)] 50 mg PO BID 05/15/13 Atorvastatin Calcium [Lipitor] 80 mg PO QHS 01/12/16 Pantoprazole Sodium [Protonix] 20 mg PO DAILY 01/12/16 Iron Polysaccharide Complex [Ferrex 150] 150 mg PO DAILYCM #30 cap 09/07/17 Linagliptin [Tradjenta] 5 mg PO DAILY #30 tab 09/07/17 Aspirin E.C. [Ecotrin] 81 mg PO DAILY@0800 01/16/18 Fluticasone 0.05% [Flonase Nasal [place]] 1 spray NASAL DAILY 01/16/18 Meclizine HCl 25 mg PO TID 01/16/18 Baclofen 10 mg PO TID 08/16/18 Plecanatide [Trulance] 3 mg PO DAILY 08/16/18 Furosemide [Lasix] 80 mg PO BIDLX 11/19/18 Lisinopril 2.5 mg PO DAILY 11/19/18 Amoxicillin/Potassium Clav [Augmentin 875-125 Tablet] 1 each PO BID #20 tablet 11/21/18 Insulin Glargine,Hum.rec.anlog [Toujeo Solostar] 200 unit SQ DAILY 11/24/18 Metolazone [Zaroxolyn] 2.5 mg PO DAILY #90 tab 11/26/18 Following Prescrptions Were Given to Patient: Metolazone [Zaroxolyn] 2.5 mg PO DAILY #90 tab Transmission Status: [id number] Primary Care Physician: Johnathan Batres Chi, MD [Primary Care Provider] - Please follow up with your Primary Care Physician in: 1 week Please Follow Up With: Johnathan Batres Chi, MD When: november 27 Disposition: Home with Home Health Minutes spent on discharge:: 35 Patient Condition:: Stable Medical Necessity - Tobacco Use Smoking Status: Former smoker Meaningful Use Info Meaningful Use Diagnoses (Choose all that apply): CHF - CHF CIERA/ARB ordered at discharge?: Yes Documented LVEF (%): 60 <Nisreen Ramos E - Last Filed: 11/26/18 13:37> Discharge Date and Diagnosis - Primary Discharge Diagnosis Active and Suspected Problems (Last Reviewed 08/16/18 @ 19:07 by Abran Garcia DO) Congestive heart failure (Acute) - Secondary Discharge Diagnosis Chronic Problems (Last Reviewed 08/16/18 @ 19:07 by Abran Garcia DO) Blister of left leg (Chronic) Subungual hematoma of toe of right foot (Chronic) Skin ulcer of third toe of right foot with fat layer exposed (Chronic) 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) Edema leg (Chronic) Hammertoe of right foot (Chronic) Corns and callosities (Chronic) Diabetes mellitus (Chronic) Non-pressure chronic ulcer of other part of left foot with fat layer exposed (Chronic) dorsal left medial foot Non-pressure chronic ulcer of other part of right foot with fat layer exposed (Chronic) PAD (peripheral artery disease) (Chronic) Diabetes mellitus with neuropathy (Chronic) CAD (coronary artery disease) (Chronic) Malnutrition (Chronic) Delayed wound healing (Chronic) Lower extremity edema (Chronic) Hypertension (Chronic) Hyperlipidemia (Chronic) Hypothyroidism (Chronic) Coronary artery disease (Chronic) Sleep apnea (Chronic) Chronic kidney disease (Chronic) PAOD (peripheral arterial occlusive disease) (Chronic) GERD (gastroesophageal reflux disease) (Chronic) Muscle spasm (Chronic) Osteomyelitis of left foot (Chronic) Type 2 diabetes mellitus with diabetic polyneuropathy (Chronic) Pulmonary hypertension (Chronic) Obstructive sleep apnea (Chronic) Morbid obesity (Chronic) Non compliance with medical treatment (Chronic) Diabetic foot ulcers (Chronic) Aortocoronary bypass status (Chronic) Type II diabetes mellitus, uncontrolled (Chronic) History of esophageal reflux (Chronic) History of hyperlipidemia (Chronic) History of hypertension (Chronic) History of hypothyroidism (Chronic) Macular infarction (Chronic) Peripheral vascular disease (Chronic) Hospital Course and Treatment Imaging Results: 11/26/18 05:55 Chest PA and Lateral [RAD] AM (NON MEDS) Summary of Care Provided: Hospitalist note: Discharge summary above reviewed and I agree with the above discharge and treatment plan. Patient was admitted because of worsening shortness of breath, increasing bilateral leg edema as well as abdominal distention and he was found to have acute on chronic diastolic CHF. He was treated with IV Lasix for diuresis, continued on lisinopril and metoprolol. Patient diuresed very well and he lost about 7 pounds. Because of the abdominal distention, CT scan abdomen and pelvis without contrast done and revealed no evidence of acute intra-abdominal pathology, revealed small left pleural effusion as well as mild to moderate edema in the subcutaneous fat. He does have a history of stage III chronic kidney disease and his creatinine remained stable at baseline in spite of IV diuresis. He had 2D echocardiogram back on August, that revealed ejection fraction 60%, stage II diastolic dysfunction. With IV diuresis, patient symptoms improved, leg edema improved as well as blood distention as well as breathing. On the day of discharge, ambulating pulse ox performed and patient did qualify for home oxygen because he is ambulating at home. Patient discharged home in a stable medical condition, discharged on the same dose of Lasix 80 mg p.o. twice daily, Zaroxolyn 2.5 mg p.o. twice daily, continue with his previous home medications without any changes, recommended follow-up with PCP in 1 week. - Physical Exam General: Alert, Oriented x3, Cooperative, No apparent distress. HEENT: Atraumatic, PERRLA, EOMI. Neck: Supple, No JVD, Negative Carotid Bruits, Trachea Midline, Thyroid Normal. Lungs: Diminished breath sounds bilateral, otherwise clear no rhonchi, No wheeze, No rales. Cardiovascular: Regular rate, Regular Rhythm, Normal S1, Normal S2, PMI Normal. Abdomen: Bowel Sounds Present, Soft, not tender, -Distended, No Hepato-splenomegaly. Extremities: No clubbing, No cyanosis,+ edema Skin: No rashes, No breakdown Neurological: Neuro grossly intact Vital Signs are stable. This note was generated with [employer] dictation software. It may contain incorrect words, spelling, and punctuation that were not noted in checking the note before signing. - Physical Exam Vital Signs Temp Pulse Resp BP Pulse Ox 98.4 F 80 18 126/69 H 89 11/26/18 09:30 11/26/18 09:33 11/26/18 09:30 11/26/18 09:30 11/26/18 09:45 Oxygen Flow Rate (L/min) [ 2 AMBULATION with Oxygen] Oxygen Flow Rate (L/min) 1 Oxygen Delivery Method Nasal Cannula Weight: 270 lb 11.642 oz Body Mass Index (BMI) 38.0 Finger Stick Blood Glucose 91 Intake and Output for Last 24 Hours 11/24/18 11/25/18 11/26/18 23:59 23:59 23:59 Intake Total 480 / 960 2097 / 2097 600 / 600 Output Total 475 / 2275 6550 / 6550 1800 / 1800 Balance 5 / -1315 -4453 / -4453 -1200 / -1200 Laboratory Tests Past 24 Hrs 11/26/18 05:55 Sodium 140 Potassium 3.7 Chloride 101 Carbon Dioxide 32.0 Anion Gap 7 BUN 39 H Creatinine 1.44 H Estim Creat Clear Calc 53.74 Est GFR (MDRD) Af Amer 63 Est GFR (MDRD) Non-Af 52 L BUN/Creatinine Ratio 27.1 H Glucose 50 L Calcium 8.4 L POC Glucose 11/26/18 11/26/18 11/26/18 10:59 06:12 05:56 POC Glucose 179 H 71 45 L 11/26/18 11/25/18 11/25/18 05:37 21:34 16:31 POC Glucose 36 L* 130 H 200 H Disposition: Home with Home Health Minutes spent on discharge:: 32 Patient Condition:: Stable Meaningful Use Info Meaningful Use Diagnoses (Choose all that apply): CHF - CHF CIERA/ARB ordered at discharge?: Yes Documented LVEF (%): 60 Code Visit Inpatient E&M: 64727 Disch Hosp
--- NOTE | 2018-11-26 13:21 | CASEMGMT ---
[place] called [facility] and spoke with Kapil Miller on the coverage line. [place] let him know patient is being discharged today with home O2 and resumption of skilled HH care with [facility]. Yas SCOTT MSW
--- NOTE | 2018-11-27 14:55 | CASEMGMT ---
ISABEL ROQUE DC PHONE CALL DC DATE: 11/26/18 DC Disposition: Home with HHS and [facility] LACE/STRATA: 05/14 Intro role of CM to patient via phone. Pt states he is doing better, is using his Home Oxygen and will make f/u appointment tomorrow with PCP. No further questions. Home Health will be seeing pt tomorrow. No care improvement suggestions given. Safia ROQUE RN AC
== END 2018-11-26 14:31 | disposition home health service (06) | DRG 291 ==
LOC: ED 11:40 → PCU 14:53
PROVIDERS: Physician Assistant; Admitting Provider Internal Medicine; Emergency Provider Emergency Medicine; Family Provider Family Medicine Geriatric Medicine; PCP Family Medicine Geriatric Medicine; Visit Provider Hospitalist
DX: I13.0 Hypertensive heart and chronic kidney disease with heart failure and stage 1 through stage 4 chronic kidney disease, or unspecified chronic kidney disease (principal); I50.33 Acute on chronic diastolic (congestive) heart failure; I25.10 Atherosclerotic heart disease of native coronary artery without angina pectoris; K59.09 Other constipation; E66.01 Morbid (severe) obesity due to excess calories; G47.33 Obstructive sleep apnea (adult) (pediatric); E03.9 Hypothyroidism, unspecified; I27.20 Pulmonary hypertension, unspecified; N18.3 Chronic kidney disease, stage 3 (moderate); E11.22 Type 2 diabetes mellitus with diabetic chronic kidney disease; E11.51 Type 2 diabetes mellitus with diabetic peripheral angiopathy without gangrene; E11.42 Type 2 diabetes mellitus with diabetic polyneuropathy; Z68.38 Body mass index [BMI] 38.0-38.9, adult; Z95.1 Presence of aortocoronary bypass graft; Z87.891 Personal history of nicotine dependence; Z95.5 Presence of coronary angioplasty implant and graft; Z79.4 Long term (current) use of insulin
CPT/HCPCS: 36415; 71045; 71046; 74176; 80048; 80053; 80076; 81001; 82962; 83690; 83880; 84484; 85025; 85652; 86140; 87040; 87070; 87077; 87186; 87205; 93005; 93923; 96365; 96366; 96367; 96372; 96375; 96376; 97162; 97166; 97802; 99218; 99284; 99285; J7030; J7050; A4216; G0378; J0295; J1940; J2405

== ENCOUNTER → 2018-12-02 | Outpatient (CLI) | payer MEDICARE, MEDICAID, SELFPAY ==
[2018-11-24 14:48] VITALS: BMI 38.0
[2018-12-02 11:38] LABS: Absolute Neutrophil Count 6.2 X10^3/uL (2.0-7.7); Basophil# 0.04 X10^3/uL; Basophil% 0.5 % (0-1); Eosinophil# 0.27 X10^3/uL; Eosinophils% 3.3 % (0-5); Hematocrit 35.3 % (40-54); Hemoglobin 11.3 g/dl (13.0-16.5); Lymphocyte % 9.8 % (19-41); Mean Corpuscular Hgb 30.1 pg (27.0-32.0); Mean Corpuscular Volume 93.9 fL (80-94); Mean Platelet Vol. 9.8 fl (6.2-12.0); Monocyte# 0.83 X10^3/uL; Monocyte% 10.2 % (0-10); Neutrophil # 6.17 X10^3/uL (2.7-7.7); Neutrophil % 75.8 % (47-70); Platelet Count 345 K/mm3 (150-450); RBC Distribution Width CV 15.7 % (11.6-14.6); RBC Distribution Width SD 52.7 fl (35.1-43.9); Red Blood Count 3.76 M/mm3 (4.6-6.2); White Blood Count 8.1 K/mm3 (4.4-11.0)
[2018-12-02 11:43] LABS: POSITIVE COUNT NO; POSITIVE DIFFERENTIAL NO; POSITIVE MORPHOLOGY NO
[2018-12-02 12:01] LABS: Anion Gap 10 (5-15); BUN 44 mg/dL (7-18); BUN/Creat Ratio 26.2 RATIO (10-20); Calcium,Total 8.9 mg/dL (8.5-10.1); Chloride 97 mmol/L (98-107); Creatinine, Serum 1.68 mg/dL (0.70-1.30); EST Glomerular Filtration Rate 44 mL/min (>60); Est Glom Filt Rate - Afr Amer 53 mL/min (>60); Glucose 249 mg/dL (74-106); Potassium 3.4 mmol/L (3.5-5.1); Sodium Level 139 mmol/L (136-145)
[2018-12-02 12:06] LABS: Hemoglobin A1c 9.5 % (4.2-6.3)
== END | disposition home or self-care (01) ==
LOC: POLAB3 10:42
PROVIDERS: Family Provider Family Medicine Geriatric Medicine; PCP Family Medicine Geriatric Medicine; Visit Provider Family Medicine Geriatric Medicine
DX: E16.2 Hypoglycemia, unspecified (principal); I50.30 Unspecified diastolic (congestive) heart failure
CPT/HCPCS: 36415; 80048; 83036; 85025

== ENCOUNTER → 2018-12-11 14:00 | Outpatient (CLI) | payer MEDICARE, MEDICAID, SELFPAY ==
[2018-11-24 14:48] VITALS: BMI 38.0
[2018-12-11 16:49] LABS: Hemoglobin 12.8 g/dl (13.0-16.5); Mean Corpuscular Hgb 29.9 pg (27.0-32.0); Mean Corpuscular Volume 93.5 fL (80-94); Platelet Count 342 K/mm3 (150-450); RBC Distribution Width CV 15.7 % (11.6-14.6); RBC Distribution Width SD 51.4 fl (35.1-43.9); Red Blood Count 4.28 M/mm3 (4.6-6.2); White Blood Count 8.9 K/mm3 (4.4-11.0)
[2018-12-11 17:01] LABS: Albumin, Serum 3.1 g/dL (3.2-5.0); BUN 29 mg/dL (7-18); BUN/Creat Ratio 18.4 RATIO (10-20); Calcium,Total 8.6 mg/dL (8.5-10.1); Chloride 103 mmol/L (98-107); Creatinine, Serum 1.58 mg/dL (0.70-1.30); EST Glomerular Filtration Rate 47 mL/min (>60); Est Glom Filt Rate - Afr Amer 57 mL/min (>60); Glucose 131 mg/dL (74-106); Phosphorus 4.7 mg/dL (2.5-4.9); Potassium 3.8 mmol/L (3.5-5.1); Sodium Level 136 mmol/L (136-145)
[2018-12-11 17:08] LABS: Protein, Urine (Random) 15.4 mg/dL (<11.9); Protein:Creat Ratio 185 mg/g CRE (0-200)
[2018-12-11 17:14] LABS: Scan Indicated on CBC? Y/N NO
== END ==
PROVIDERS: Family Provider Family Medicine Geriatric Medicine; PCP Family Medicine Geriatric Medicine; Visit Provider Internal Medicine Nephrology
DX: E11.22 Type 2 diabetes mellitus with diabetic chronic kidney disease (principal); N18.3 Chronic kidney disease, stage 3 (moderate); E11.21 Type 2 diabetes mellitus with diabetic nephropathy
CPT/HCPCS: 36415; 80069; 82570; 83970; 84156; 85027

== ENCOUNTER 2018-12-17 08:54 | Observation (INO) | payer MEDICARE, MEDICAID, SELFPAY ==
[2018-11-24 14:48] VITALS: BMI 38.0
[2018-12-17] VITALS (9 sets, daily range): BP systolic 131–149; BP diastolic 64–70; PULSE 61–100; RESP 16–20; TEMP 36.5–36.9; O2SAT 94–98; BMI 37.6; BMI 36.8
--- NOTE | 2018-12-17 09:17 | CT_ITS ---
STUDY: CT BRAIN WITHOUT CONTRAST REASON FOR EXAM: Male, 68 years old. Headaches. Prior craniotomy for intracranial bleed. RADIATION DOSAGE (If Supplied By Facility): CTDIvol = ( 44.99 ) mGy, DLP = ( 745.49 ) mGycm TECHNIQUE: Transaxial CT imaging of the brain was performed without administration of intravenous contrast material. Individualized dose optimization techniques were used for this CT. COMPARISON: Comparison is made with prior study dated December 28, 2014. FINDINGS: Normal soft tissue structures. Prior left frontoparietal craniotomy. This is unchanged. There is mild cerebral atrophy with widening of the extra-axial spaces and ventricular dilatation. Normal white matter tracts of the cerebral hemispheres. Stable small old lacunar infarct in the left thalamus.. Normal brainstem. Stable encephalomalacia in the inferior right cerebellar hemisphere. There is no intracranial hemorrhage. There are no findings of an acute ischemic infarction. Atherosclerotic calcification of the cavernous portions of the internal carotid arteries bilaterally. Normal visualized paranasal sinuses. CT/Brain/Head without Contrast IMPRESSION: Chronic involutional changes of the brain. Stable examination. Electronically Signed: Wai Cortez, at 11:00 EDT , Service support ,
--- NOTE | 2018-12-17 09:17 | RAD_ITS ---
STUDY: X-RAY CHEST REASON FOR EXAM: Male, 68 years old. Hypoglycemia. History of fall. TECHNIQUE: Single AP portable view of the chest. COMPARISON: Comparison is made with prior examination dated November 26, 2018. FINDINGS: EKG electrodes are seen. Stable increased markings at the left lung base suggestive of a left basilar scarring. Mild blunting of the left costophrenic angle. Sternal cerclage wires are present from a prior sternotomy. Normal mediastinum and catrina. Normal visualized pulmonary arteries. There is atherosclerotic calcification of the aortic arch with tortuosity. Normal visualized thoracic spine. Normal visualized ribs, clavicles, and shoulders. There is no demonstrated abnormality of the visualized soft tissue structures of the upper abdomen. RAD/Chest 1 View (Portable) IMPRESSION: Stable pleural parenchymal changes at the left lung base suggestive of scarring. Electronically Signed: Wai Cortez, at 9:56 EDT , Service support ,
--- NOTE | 2018-12-17 09:17 | EKG12_ITS ---
Test Reason : HYPOGLYCEMIA Blood Pressure : / mmHG Vent. Rate : 099 BPM Atrial Rate : 099 BPM P-R Int : 144 ms QRS Dur : 150 ms QT Int : 422 ms P-R-T Axes : -22 107 -39 degrees QTc Int : 541 ms Normal sinus rhythm Right bundle branch block Cannot rule out Inferior infarct (cited on or before 16-AUG-2018) T wave abnormality, consider lateral ischemia Abnormal ECG Confirmed by JOYCE CAMPBELL ([id number]), loan expeditor IVY RUIZ ([id number]) on 12/19/2018 1:47:43 PM Referred By: SOBEIDA Confirmed By:JOYCE CAMPBELL
--- NOTE | 2018-12-17 09:47 | ED.VISSUMM ---
- ER Visit Summary Date of Service: 12/17/18 Chief Complaint: [Hypoglycemia] History of Present Illness: The patient is a 68 M [presents to the emergency department via EMS. Patient states that around 3 or 4 AM he was having a hard time sleeping so he decided to go in the living room and sit in the recliner. Patient states that he recalls being on the edge of the recliner and feeling hot. Next thing the patient remembers is waking up on the floor. Patient states that his mind seems sharp but his body was very weak and he struggled for about an hour and a half to get up off the floor. Patient eventually was able to use a recliner to sit back into the recliner and he found his phone and was able to call EMS for help. On EMS arrival he was noted to have a low blood sugar in the 30s and he was given glucose gel followed by a glucose drink. He was observed for a short time and noted that his blood glucose dropped again into the 30s and EMS brings him in for evaluation. Patient has a mild headache. He denies any chest pain or shortness of breath. Patient denies any injury. Patient is unsure how long he was on the floor. Patient has history of coronary artery disease, diabetes, hypertension, high cholesterol, history of intracranial hemorrhage, peripheral artery disease, and chronic kidney disease.] Physical Examination: [HEENT-PERRLA, EOMI. Cranial nerves II through XII grossly intact. TMs clear. Mucous membranes moist. No adenopathy. Cardiovascular-regular rate and rhythm without murmur or ectopy Lungs-clear to auscultation, chest wall stable without crepitus or subcu emphysema Abdomen-normoactive bowel sounds, soft, nontender, no rebound or rigidity, no peritoneal signs. Extremities-intact ?4, normal range of motion, normal pulses, atraumatic] Test Results: [EKG obtained on arrival showed a sinus rhythm with a ventricular rate of [address] changes. CBC with differential was unremarkable. Chemistries unremarkable. Troponin is less than 0.015. CPK was 62. Chest x-ray showed nothing acute. CT scan of the brain showed chronic involutional changes.] Emergency Department Course and Treatment: [Patient was ordered a meal tray.] Treatment Plan: [Admit for observation.] Disposition: [Admit] Impression: [Hypoglycemia Syncope Generalized weakness] This note was generated with Dragon dictation software. It may contain incorrect words, spelling, and punctuation that were not noted in review of the chart prior to signing ED Disposition - Plan for ED Patient: Referrals: Johnathan Batres Chi, MD [Primary Care Provider] -
[2018-12-17 09:59] LABS: Absolute Lymphocyte Count 0.58 X10^3/ul (0.83-4.51); Absolute Neutrophil Count 8.5 X10^3/uL (2.0-7.7); Basophil# 0.04 X10^3/uL; Basophil% 0.4 % (0-1); Differential Indicated SCAN CRITERIA MET; Eosinophil# 0.14 X10^3/uL; Eosinophils% 1.4 % (0-5); Hematocrit 40.9 % (40-54); Hemoglobin 13.1 g/dl (13.0-16.5); Lymphocyte # 0.58 X10^3/ul (4.0); Lymphocyte % 5.8 % (19-41); Mean Corpuscular Volume 93.6 fL (80-94); Mean Platelet Vol. 9.4 fl (6.2-12.0); Monocyte# 0.71 X10^3/uL; Monocyte% 7.1 % (0-10); Neutrophil # 8.53 X10^3/uL (2.7-7.7); POSITIVE COUNT NO; POSITIVE DIFFERENTIAL YES; POSITIVE MORPHOLOGY NO; Platelet Count 289 K/mm3 (150-450); RBC Distribution Width CV 15.6 % (11.6-14.6); RBC Distribution Width SD 53.3 fl (35.1-43.9); Red Blood Count 4.37 M/mm3 (4.6-6.2)
[2018-12-17 10:02] LABS: Albumin, Serum 3.4 g/dL (3.2-5.0); BUN 44 mg/dL (7-18); BUN/Creat Ratio 35.8 RATIO (10-20); Creatinine, Serum 1.23 mg/dL (0.70-1.30); EST Glomerular Filtration Rate 62 mL/min (>60); Est Glom Filt Rate - Afr Amer 76 mL/min (>60); Globulin 4.4 g/dL (2.2-4.2); Glucose 153 mg/dL (74-106); Protein, Total 7.8 g/dL (6.4-8.2)
[2018-12-17 10:03] LABS: ALB/GLOB Ratio 0.8 RATIO (0.9-2.4); AST(SGOT) 23 U/L (15-37); Alanine Aminotransfer ALT/SGPT 30 U/L (16-61); Alkaline Phosphatase 102 U/L (45-117); Anion Gap 8 (5-15); CPK Total, Creatine Kinase 62 U/L (39-308); Calcium,Total 8.9 mg/dL (8.5-10.1); Chloride 103 mmol/L (98-107); Potassium 4.1 mmol/L (3.5-5.1); Sodium Level 139 mmol/L (136-145)
[2018-12-17 10:05] LABS: Bedside Glucose 90 mg/dL (70-110)
[2018-12-17 10:05] LABS: Bedside Glucose 186 mg/dL (70-110)
--- NOTE | 2018-12-17 11:10 | NURSING ---
PCU OBS SAIRA HYPOGLYCEMIA, SYNCOPE, WEAKNESS
[2018-12-17 11:20] LABS: Differential Comment SCANNED
[2018-12-17] MEDS: 0.9% Normal Saline 1,000 ML 150 ML IV (11:25)
--- NOTE | 2018-12-17 12:34 | HP.PCM_ITS ---
Problem List (1) Syncope and collapse Status: Acute (2) Hypoglycemia Status: Acute History of Present Illness Date of Admission: 12/17/18 Chief Complaint: unresponsive The patient is a 68 year old M who is his normal state of health got up this morning was at the side of the bed in the next thing he woke up on the floor. Patient had no recollection of how he got there. Patient felt very weak like a wet dishrag and contacted EMS. When EMS arrived, patient was noted to be hypoglycemic. Try juice but still continue to be hypoglycemic and then received dextrose which did improve things. Patient was sent to the emergency room for evaluation. Patient had a work-up in the emergency room including head CT that was negative. Patient states that he is recently been started on 20 units of basal insulin and I states that he is to have been having eat a lot but his blood sugars have been persistently under 100. Patient states that he is recently cut back to 125 and recently but even before that was 100. 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) Edema leg (Chronic) Hammertoe of right foot (Chronic) Corns and callosities (Chronic) Diabetes mellitus (Chronic) Non-pressure chronic ulcer of other part of left foot with fat layer exposed (Chronic) dorsal left medial foot Non-pressure chronic ulcer of other part of right foot with fat layer exposed (Chronic) PAD (peripheral artery disease) (Chronic) Diabetes mellitus with neuropathy (Chronic) CAD (coronary artery disease) (Chronic) Malnutrition (Chronic) Delayed wound healing (Chronic) Lower extremity edema (Chronic) Hypertension (Chronic) Hyperlipidemia (Chronic) Hypothyroidism (Chronic) Coronary artery disease (Chronic) Sleep apnea (Chronic) Chronic kidney disease (Chronic) PAOD (peripheral arterial occlusive disease) (Chronic) GERD (gastroesophageal reflux disease) (Chronic) Muscle spasm (Chronic) Osteomyelitis of left foot (Chronic) Type 2 diabetes mellitus with diabetic polyneuropathy (Chronic) Pulmonary hypertension (Chronic) Obstructive sleep apnea (Chronic) Morbid obesity (Chronic) Non compliance with medical treatment (Chronic) Diabetic foot ulcers (Chronic) Aortocoronary bypass status (Chronic) Type II diabetes mellitus, uncontrolled (Chronic) History of esophageal reflux (Chronic) History of hyperlipidemia (Chronic) History of hypertension (Chronic) History of hypothyroidism (Chronic) Macular infarction (Chronic) Peripheral vascular disease (Chronic) Medical History: Medical History (Last Reviewed 12/17/18 @ 12:36 by Abran Garcia DO) Abdominal pain (Acute) R10.9 Abdominal distension (Acute) R14.0 Sepsis (Acute) A41.9 Osteomyelitis of foot (Acute) M86.9 Diabetes mellitus (Chronic) E11.9 Osteomyelitis of right foot (Acute) M86.9 Chronic ulcer of left foot with fat layer exposed (Resolved) L97.522 dorsal foot Hammer toe of right foot (Acute) M20.41 Non-pressure chronic ulcer of other part of left foot with fat layer exposed (Chronic) L97.522 dorsal left medial foot Non-pressure chronic ulcer of other part of right foot with fat layer exposed (Chronic) L97.512 PAD (peripheral artery disease) (Chronic) I73.9 Diabetes mellitus with neuropathy (Chronic) E11.40 Cellulitis of left foot (Acute) L03.116 Cellulitis of right foot (Acute) L03.115 Severe sepsis (Acute) A41.9, R65.20 CAD (coronary artery disease) (Chronic) I25.10 Malnutrition (Chronic) E46 Delayed wound healing (Chronic) T14.8 Lower extremity edema (Chronic) R60.0 Chronic ulcer of left foot with fat layer exposed (Resolved) L97.522 left plantar foot DFU Ulcer of right foot with fat layer exposed (Resolved) L97.512 Hypertension (Chronic) I10 Hyperlipidemia (Chronic) E78.5 Hypothyroidism (Chronic) E03.9 Coronary artery disease (Chronic) I25.10 Sleep apnea (Chronic) G47.30 Chronic kidney disease (Chronic) N18.9 PAOD (peripheral arterial occlusive disease) (Chronic) I77.9 GERD (gastroesophageal reflux disease) (Chronic) K21.9 Muscle spasm (Chronic) M62.838 Osteomyelitis of left foot (Chronic) M86.9 Type 2 diabetes mellitus with diabetic polyneuropathy (Chronic) E11.42 Cellulitis of left foot (Acute) L03.116 Pulmonary hypertension (Chronic) I27.2 Obstructive sleep apnea (Chronic) G47.33 Morbid obesity (Chronic) E66.01 Non compliance with medical treatment (Chronic) Z91.19 Diabetic foot ulcers (Chronic) E11.621, L97.509 Type II diabetes mellitus, uncontrolled (Chronic) E11.65 History of esophageal reflux (Chronic) Z87.19 History of hyperlipidemia (Chronic) Z86.39 Hiatal hernia K44.9 Allergies adhesive Allergy (Verified 11/24/18 11:01) SKIN GETS PULLED OFF SKIN GETS PULLED OFF latex Allergy (Verified 11/24/18 11:01) Hives Home Medications: Ambulatory Orders Medication Instructions Recorded Clopidogrel Bisulfate [Plavix] 75 mg PO DAILY 05/15/13 Levothyroxine [Synthroid] 200 mcg PO DAILY 05/15/13 Metoprolol Tartrate [Lopressor 50 mg PO BID 05/15/13 (beta ramo)] Atorvastatin Calcium [Lipitor] 80 mg PO QHS 01/12/16 Pantoprazole Sodium [Protonix] 20 mg PO DAILY 01/12/16 Iron Polysaccharide Complex 150 mg PO DAILYCM #30 cap 09/07/17 [Ferrex 150] Linagliptin [Tradjenta] 5 mg PO DAILY #30 tab 09/07/17 Aspirin E.C. [Ecotrin] 81 mg PO DAILY@0800 01/16/18 Fluticasone 0.05% [Flonase Nasal 1 spray NASAL DAILY 01/16/18 [place]] Meclizine HCl 25 mg PO TID 01/16/18 Baclofen 10 mg PO TID 08/16/18 Plecanatide [Trulance] 3 mg PO DAILY 08/16/18 Furosemide [Lasix] 80 mg PO BIDLX 11/19/18 Lisinopril 2.5 mg PO DAILY 11/19/18 Amoxicillin/Potassium Clav 1 each PO BID #20 tablet 11/21/18 [Augmentin 875-125 Tablet] Insulin Glargine,Hum.rec.anlog 200 unit SQ DAILY 11/24/18 [Toujeo Solostar] Metolazone [Zaroxolyn] 2.5 mg PO DAILY #90 tab 11/26/18 Surgical History: Surgical History (Last Reviewed 12/17/18 @ 12:36 by Abran Garcia DO) Aortocoronary bypass status (Chronic) Z95.1 History brain urgery History of Gallbladder removal Surgical History: angioplasty, cholecystectomy, coronary bypass surgery, - Psychiatric History: No pertinent psych hx Smoking Status: Former smoker Tobacco Use: Non-smoker - *Family History Paternal Family History: Family History (Last Reviewed 12/17/18 @ 12:37 by Abran Garcia DO) Grandfather Diabetes Heart disease Hypertension High blood cholesterol CVA (cerebral vascular accident) Son Thyroid disorder History Items: No pertinent history Maternal Family History: Family History (Last Reviewed 12/17/18 @ 12:37 by Abran Garcia DO) Grandfather Diabetes Heart disease Hypertension High blood cholesterol CVA (cerebral vascular accident) Son Thyroid disorder History Items: - Review of Systems Constitutional: Reports: Weakness. Denies: Anorexia, Chills, Fever Eyes: Denies: Blurred vision, Double vision HEENT: Denies: Head Aches, Sinus Congestion, Sinus Drainage Cardiovascular: Reports: Edema. Denies: Chest Pain, Palpitations Respiratory: Denies: Cough, Shortness of breath at rest, Sputum production Gastrointestinal: Denies: Abdominal Pain, Nausea, Vomiting Genitourinary: Denies: Dysuria Musculoskeletal: Denies: Joint Pain, Joint Tenderness Skin: Denies: Rash, Wounds Neurological: Denies: Numbness, Tingling, Focal weakness Psychiatric: Denies: Anxiety, Depression, Homicidal Ideations, Suicidal Ideations Hematologic/ Lymphatic: Denies: Easy Bruising, Easy Bleeding, Hx of blood clot Comment: A 10 point review of systems were negative except as mentioned in the history of present illness and the other review of systems. VTE Information - Inpt Only VTE Present on Admission: No VTE Mechan Device Prophylaxis: None VTE Pharm Prophylaxis ordered?: No Reason prophylaxis not ordered:: Procedure Not Indicated Patient Problems: Active and Suspected Problems (Last Reviewed 08/16/18 @ 19:07 by Abran Garcia DO) Syncope and collapse (Acute) Hypoglycemia (Acute) - Physical Exam General: Alert, Cooperative, No apparent distress HEENT: Atraumatic, Normocephalic Oral: Moist Mucosa, No Gingival or Mucosal Lesions/ Ulcerations Neck: No Nodes, Thyroid Normal Size and Texture Lungs: Clear to auscultation, Normal air movement, No rhonchi, No wheeze, No rales Cardiovascular: Regular rate, Regular Rhythm, Normal S1, Normal S2, No murmurs Abdomen: Bowel Sounds Present, Soft, Non Tender, Non-Distended, No Hepato- splenomegaly Extremities: No Calf Tenderness, Edema Skin: No rashes, No breakdown Musculoskeletal: No Tenderness to Palpation of Joints or Extremities, No Muscle Wasting Neurological: Cranial nerves II-XII grossly intact, Motor Exam 5/5 strength throughout Psych/Mental Status: Normal Affect, Appropriate Vital Signs Temp Pulse Resp BP Pulse Ox 36.5 C L 100 19 H 149/69 H 95 12/17/18 08:55 12/17/18 11:21 12/17/18 11:21 12/17/18 08:55 12/17/18 11:21 Oxygen Delivery Method Room Air Weight: 119 kg Body Mass Index (BMI) 37.6 Finger Stick Blood Glucose 186 Laboratory Tests Past 24 Hrs 12/17/18 12/17/18 09:36 09:36 WBC 10.0 RBC 4.37 L Hgb 13.1 Hct 40.9 MCV 93.6 MCH 30.0 MCHC 32.0 RDW 15.6 H RDW Differential 53.3 H Plt Count 289 MPV 9.4 Immature Gran % (Auto) 0.300 Neut % (Auto) 85.0 H Lymph % (Auto) 5.8 L [place]son % (Auto) 7.1 Eos % (Auto) 1.4 Baso % (Auto) 0.4 Absolute Neuts (auto) 8.5 H Absolute Lymphs (auto) 0.58 L Total Counted Not Reportable Differential Comment SCANNED Sodium 139 Potassium 4.1 Chloride 103 Carbon Dioxide 28.0 Anion Gap 8 BUN 44 H Creatinine 1.23 Estim Creat Clear Calc 61.00 Est GFR (MDRD) Af Amer 76 Est GFR (MDRD) Non-Af 62 BUN/Creatinine Ratio 35.8 H Glucose 153 H Calcium 8.9 Total Bilirubin 0.40 AST 23 ALT 30 Alkaline Phosphatase 102 Total Creatine Kinase 62 Troponin I < 0.015 Total Protein 7.8 Albumin 3.4 Globulin 4.4 H Albumin/Globulin Ratio 0.8 L POC Glucose 12/17/18 12/17/18 09:55 09:01 POC Glucose 186 H 90 Assessment/Plan All Active Problems (Last Reviewed 08/16/18 @ 19:07 by Abran Garcia DO) Diabetic ulcer of toe of right foot associated with diabetes mellitus due to underlying condition (Acute) Diabetic ulcer of right foot with bone involvement without evidence of necrosis (Acute) Anasarca (Acute) GENE (acute kidney injury) (Acute) Congestive heart failure (Acute) Syncope and collapse (Acute) Hypoglycemia (Acute) Abdominal pain (Acute) Abdominal distension (Acute) Sepsis (Acute) Osteomyelitis of foot (Acute) Osteomyelitis of right foot (Acute) Chronic ulcer of left foot with fat layer exposed (Resolved) Hammer toe of right foot (Acute) Cellulitis of left foot (Acute) Cellulitis of right foot (Acute) Severe sepsis (Acute) Chronic ulcer of left foot with fat layer exposed (Resolved) Ulcer of right foot with fat layer exposed (Resolved) Cellulitis of left foot (Acute) Syncopal episodes (Resolved) 1. Syncope * Secondary to hypoglycemia * No additional cardiac evaluation is going to be performed 2. Hypoglycemia * Likely due to very intensive insulin regimen plus Tradjenta * Cut back as a basal insulin from 200 to 75 units daily plus discontinue the Tradjenta for now 3. Debility * Patient states that he just feels overly weak at this time * Likely associated due to above * Physical and occupational therapy evaluate and treat 4. Diabetes mellitus type 2 * As above, will cut back to basal insulin to 75 * Moderate dose sliding scale 5. VTE prophylaxis: Low risk as patient is observation status advance care planning: Patient wishes to be full code. 6. Code Visit OBSV E&M: 51242 Initial observation care L3
--- NOTE | 2018-12-17 14:52 | CASEMGMT ---
SW received a call from patient's Flume Maker through [facility], Rosy Cifuentes. Patient has aides for personal care through [employer] 2 hrs a day, 9 meals delivered from [employer], and a medical alert button. She asked that SW keep her updated. [employer] geriatric case manager: Rosy Cifuentes and fax:[phone] Yas SCOTT MSW
[2018-12-17 16:36] LABS: Bedside Glucose 105 mg/dL (70-110)
[2018-12-17] MEDS: Furosemide 80 MG Tablet PO (17:29)
[2018-12-17] MEDS: Metolazone 2.5 MG Tablet PO (21:09)
[2018-12-17] MEDS: Metoprolol Tartrate 50 MG Tablet PO (21:09)
[2018-12-17] MEDS: Atorvastatin Calcium 80 MG Tablet PO (21:09)
[2018-12-17 21:55] LABS: Bedside Glucose 128 mg/dL (70-110)
[2018-12-18] VITALS (10 sets, daily range): BP systolic 115–129; BP diastolic 49–59; PULSE 63–80; RESP 16–18; TEMP 36.7–37; O2SAT 92–96
[2018-12-18] MEDS: Levothyroxine 100 MCG Tablet 200 MCG PO (05:45)
[2018-12-18 06:20] LABS: Bedside Glucose 42 mg/dL (70-110)
[2018-12-18 06:41] LABS: Bedside Glucose 47 mg/dL (70-110)
[2018-12-18 06:46] LABS: Glucose 37 mg/dL (74-106)
[2018-12-18 06:51] LABS: Bedside Glucose 87 mg/dL (70-110)
[2018-12-18] MEDS: Fluticasone 0.05% 1 SPRAY NASAL.SRY NASAL (07:41)
[2018-12-18] MEDS: Iron Polysaccharide Complex 150 MG CAPSULE PO (07:41)
[2018-12-18] MEDS: Aspirin E.C. 81 MG Tablet PO (07:41)
[2018-12-18] MEDS: Metoprolol Tartrate 50 MG Tablet PO ×2 (07:42→22:04)
[2018-12-18] MEDS: Pantoprazole Sodium 20 MG Tablet PO (07:42)
[2018-12-18] MEDS: Clopidogrel Bisulfate 75 MG Tablet PO (07:42)
[2018-12-18] MEDS: Furosemide 80 MG Tablet PO ×2 (07:42→16:40)
[2018-12-18] MEDS: Lisinopril 2.5 MG Tablet PO (07:43)
[2018-12-18] MEDS: Metolazone 2.5 MG Tablet 5 MG PO (07:43)
--- NOTE | 2018-12-18 10:16 | NURSING ---
@ [address] nurse [address] to dr bui re:drop in blood sugar this am in 40's, 80's after juice-will hold long acting insulin until this is addressed, he has had no insulin while here
[2018-12-18 11:20] LABS: Bedside Glucose 189 mg/dL (70-110)
--- NOTE | 2018-12-18 11:33 | NURSING ---
spoke with staff at dr douglas office AND THEY ARE FAXING A CURRENT HOME MED LIST TO UNIT
[2018-12-18] MEDS: Insulin Lispro 100 UNIT/ML INSULN.PEN SC ×2 (12:36→16:40)
--- NOTE | 2018-12-18 15:20 | PCM.PN.HOSP ---
Patient Problems: Active and Suspected Problems (Last Reviewed 12/17/18 @ 12:36 by Abran Garcia DO) Syncope and collapse (Acute) Hypoglycemia (Acute) Subjective: feels good. blood sugar dropped again this AM. States that he did not take any of his meds yesterday. Vitals/I&O's: Vital Signs Temp Pulse Resp BP Pulse Ox 37.0 C 66 16 118/50 L 96 12/18/18 14:23 12/18/18 14:23 12/18/18 14:23 12/18/18 14:23 12/18/18 14:23 Oxygen Delivery Method Room Air Weight: 116.392 kg Body Mass Index (BMI) 36.8 Finger Stick Blood Glucose 186 Intake and Output for Last 24 Hours 12/16/18 12/17/18 12/18/18 23:59 23:59 23:59 Intake Total 1347 / 1347 240 / 240 Balance 1347 / 1347 240 / 240 General: Alert, No apparent distress HEENT: Atraumatic, Normocephalic Oral: Moist Mucosa, No Gingival or Mucosal Lesions/ Ulcerations Neurological: Gait narrow based and stable Psych/Mental Status: Normal Affect Laboratory Results 12/17/18 16:21: POC Glucose 105 12/17/18 21:03: POC Glucose 128 H 12/18/18 06:10: POC Glucose 42 L* 12/18/18 06:20: Glucose 37 L* 12/18/18 06:32: POC Glucose 47 L 12/18/18 06:45: POC Glucose 87 12/18/18 11:14: POC Glucose 189 H Current Medications Acetaminophen (Tylenol) 650 mg PO Q6H PRN PRN PRN Reason: Mild Pain (1-3)/Temp > 100.7 F Aspirin (Ecotrin) 81 mg PO DAILY@0800 [facility] Last Admin: 12/18/18 07:41 Dose: 81 mg Documented by: Atorvastatin Calcium (Lipitor) 80 mg PO QHS [facility] Last Admin: 12/17/18 21:09 Dose: 80 mg Documented by: Clopidogrel Bisulfate (Plavix) 75 mg PO DAILY [facility] Last Admin: 12/18/18 07:42 Dose: 75 mg Documented by: Dextrose (D50w Syringe) 0 gm IV X1 PRN; Protocol PRN Reason: Hypoglycemia Fluticasone Propionate (Flonase Nasal [place]) 1 spray NASAL DAILY [facility] Last Admin: 12/18/18 07:41 Dose: 1 spray Documented by: Furosemide (Lasix) 80 mg PO BIDLX [facility] Last Admin: 12/18/18 07:42 Dose: 80 mg Documented by: Glucagon () 1 mg IM .X1 PRN PRN Reason: Hypoglycemia Insulin Glargine (Lantus (Bkc)) 60 units SC DAILY [facility] Insulin Human Lispro (Humalog Kwikpen (Bk)) 0 unit SC TIDAC [facility]; Protocol Last Admin: 12/18/18 12:36 Dose: 1 u Documented by: Levothyroxine Sodium (Synthroid) 200 mcg PO DAILY@0600 [facility] Last Admin: 12/18/18 05:45 Dose: 200 mcg Documented by: Lisinopril (Zestril) 2.5 mg PO DAILY [facility] Last Admin: 12/18/18 07:43 Dose: 2.5 mg Documented by: Meclizine HCl (Antivert) 25 mg PO TID PRN PRN Reason: Vertigo Metolazone (Zaroxolyn) 2.5 mg PO QPM [facility] Last Admin: 12/17/18 21:09 Dose: 2.5 mg Documented by: Metolazone (Zaroxolyn) 5 mg PO QAM [facility] Last Admin: 12/18/18 07:43 Dose: 5 mg Documented by: Metoprolol Tartrate (Lopressor (Beta Adonis)) 50 mg PO BID [facility] Last Admin: 12/18/18 07:42 Dose: 50 mg Documented by: Ondansetron HCl (Zofran) 4 mg IV Q8H PRN PRN PRN Reason: NAUSEA/VOMITING Pantoprazole Sodium (Protonix) 20 mg PO DAILY [facility] Last Admin: 12/18/18 07:42 Dose: 20 mg Documented by: Polysaccharide Iron Complex (Ferrex 150) 150 mg PO DAILYCM [facility] Last Admin: 12/18/18 07:41 Dose: 150 mg Documented by: Sodium Chloride () 10 - 40 ml IV UD PRN PRN Reason: SALINE FLUSH Medical Necessity - Tobacco Use Smoking Status: Former smoker Tobacco Use: Cigars, Chew Assessment/Plan All Active Problems (Last Reviewed 12/17/18 @ 12:36 by Abran Garcia DO) Diabetic ulcer of toe of right foot associated with diabetes mellitus due to underlying condition (Acute) Diabetic ulcer of right foot with bone involvement without evidence of necrosis (Acute) Anasarca (Acute) GENE (acute kidney injury) (Acute) Congestive heart failure (Acute) Syncope and collapse (Acute) Hypoglycemia (Acute) Abdominal pain (Acute) Abdominal distension (Acute) Sepsis (Acute) Osteomyelitis of foot (Acute) Osteomyelitis of right foot (Acute) Chronic ulcer of left foot with fat layer exposed (Resolved) Hammer toe of right foot (Acute) Cellulitis of left foot (Acute) Cellulitis of right foot (Acute) Severe sepsis (Acute) Chronic ulcer of left foot with fat layer exposed (Resolved) Ulcer of right foot with fat layer exposed (Resolved) Cellulitis of left foot (Acute) Syncopal episodes (Resolved) 1. Syncope Secondary to hypoglycemia No additional cardiac evaluation is going to be performed 2. Hypoglycemia Likely due to very intensive insulin regimen plus Tradjenta Cut back as a basal insulin from 200 to 60 units daily plus discontinue the Tradjenta for now 3. Debility Patient states that he just feels overly weak at this time Likely associated due to above Physical and occupational therapy evaluate and treat anticipate home with [facility]. 4. Diabetes mellitus type 2 As above, will cut back to basal insulin to 60 Moderate dose sliding scale 5. VTE prophylaxis: Low risk as patient is observation status advance care planning: Patient wishes to be full code. Code Visit OBSV E&M: 06396 Subsequent observation care L2
--- NOTE | 2018-12-18 15:28 | CASEMGMT ---
[place] called Rosy at [facility] and left her a voice mail letting her know patient is not going to be discharged today. Yas SCOTT MSW
--- NOTE | 2018-12-18 15:45 | CASEMGMT ---
This RN CM to room with DE OLIVEIRA form at this time, explanation done-pt voices understanding, and pt signs DE OLIVEIRA form at this time. Original to chart and copy to pt at this time. Pt voices no further questions/concerns/needs at this time. SStaten ISABEL CM
[2018-12-18 17:00] LABS: Bedside Glucose 182 mg/dL (70-110)
[2018-12-18] MEDS: Metolazone 2.5 MG Tablet PO (22:04)
[2018-12-18] MEDS: Atorvastatin Calcium 80 MG Tablet PO (22:04)
[2018-12-18 22:51] LABS: Bedside Glucose 115 mg/dL (70-110)
[2018-12-19 03:17] VITALS: BP 104/43; PULSE 56; RESP 16; TEMP 36.6; O2SAT 94
[2018-12-19 03:26] LABS: Bedside Glucose 152 mg/dL (70-110)
[2018-12-19] MEDS: Levothyroxine 100 MCG Tablet 200 MCG PO (06:26)
[2018-12-19 07:21] LABS: Bedside Glucose 117 mg/dL (70-110)
[2018-12-19 07:21] LABS: Bedside Glucose 69 mg/dL (70-110)
[2018-12-19 07:21] LABS: Bedside Glucose 67 mg/dL (70-110)
[2018-12-19 09:01] VITALS: BP 106/43; PULSE 65; RESP 16; TEMP 36.9; O2SAT 94
[2018-12-19 09:12] VITALS: PULSE 65
[2018-12-19] MEDS: Iron Polysaccharide Complex 150 MG CAPSULE PO (09:12)
[2018-12-19] MEDS: Fluticasone 0.05% 1 SPRAY NASAL.SRY NASAL (09:12)
[2018-12-19] MEDS: Furosemide 80 MG Tablet PO (09:12)
[2018-12-19] MEDS: Aspirin E.C. 81 MG Tablet PO (09:12)
[2018-12-19] MEDS: Clopidogrel Bisulfate 75 MG Tablet PO (09:12)
[2018-12-19] MEDS: Pantoprazole Sodium 20 MG Tablet PO (09:12)
[2018-12-19] MEDS: Lisinopril 2.5 MG Tablet PO (09:12)
[2018-12-19] MEDS: Metoprolol Tartrate 50 MG Tablet PO (09:12)
[2018-12-19] MEDS: Metolazone 2.5 MG Tablet 5 MG PO (09:14)
[2018-12-19 11:00] LABS: Bedside Glucose 248 mg/dL (70-110)
--- NOTE | 2018-12-19 11:32 | DCINST_ITS ---
- Discharge Diagnoses Current Active Problems: Current Active and Chronic Problems (Last Reviewed 12/17/18 @ 12:36 by Abran Garcia DO) Syncope and collapse (Acute) Hypoglycemia (Acute) You will use the following diet at home:: Calorie/Carbohydrate Controlled (specify 1200, 1400, etc) - 1800 Your food should be the consistency of: Regular Your liquids should be the consistency of: Regular/Thin Discharge Activity: Return to Normal Activity Call your doctor if you observe: Fainting spells, - - low blood sugars (less than 60) Allergies/Adverse Reactions: Allergies adhesive Allergy (Verified 11/24/18 11:01) SKIN GETS PULLED OFF SKIN GETS PULLED OFF latex Allergy (Verified 11/24/18 11:01) Hives Medications to take at Discharge Clopidogrel Bisulfate [Plavix] 75 mg PO DAILY 05/15/13 Levothyroxine [Synthroid] 200 mcg PO DAILY 05/15/13 Metoprolol Tartrate [Lopressor (beta ramo)] 50 mg PO BID 05/15/13 Atorvastatin Calcium [Lipitor] 80 mg PO QHS 01/12/16 Pantoprazole Sodium [Protonix] 20 mg PO DAILY 01/12/16 Iron Polysaccharide Complex [Ferrex 150] 150 mg PO DAILYCM #30 cap 09/07/17 Aspirin E.C. [Ecotrin] 81 mg PO DAILY@0800 01/16/18 Fluticasone 0.05% [Flonase Nasal [place]] 1 spray NASAL DAILY 01/16/18 Meclizine HCl 25 mg PO TID 01/16/18 Baclofen 10 mg PO TID 08/16/18 Plecanatide [Trulance] 3 mg PO DAILY 08/16/18 Furosemide [Lasix] 80 mg PO BIDLX 11/19/18 Metolazone [Zaroxolyn] 2.5 mg PO DAILY #90 tab 11/26/18 Sacubitril/Valsartan 24/26 mg [Entresto 24 mg-26 mg Tablet] 1 ea PO DAILY 12/17/18 Insulin Glargine,Hum.rec.anlog [Toujeo Solostar] 60 unit SQ DAILY #0 12/19/18 Primary Care Physician: Johnathan Bartes Chi, MD [Primary Care Provider] - Within 1 Week Test Results: Test results from this visit will be discussed in further detail at your follow- up appointment, if applicable. Proposed Discharge Date: 12/19/18
--- NOTE | 2018-12-19 11:34 | DS.PCM_ITS ---
Discharge Date and Diagnosis - Problem List Patient Problems: Active and Suspected Problems (Last Reviewed 12/17/18 @ 12:36 by Arban Garcia DO) Syncope and collapse (Acute) Hypoglycemia (Acute) Date of Admission: 12/17/18 Date of Discharge: 12/19/18 - Primary Discharge Diagnosis Active and Suspected Problems (Last Reviewed 12/17/18 @ 12:36 by Abran Garcia DO) Syncope and collapse (Acute) Hypoglycemia (Acute) 1. Syncope * Secondary to hypoglycemia * No additional cardiac evaluation is going to be performed 2. Hypoglycemia * Likely due to very intensive insulin regimen plus Tradjenta * Cut back as a basal insulin from 200 to 60 units daily plus discontinue the Tradjenta for now * Improved. Suspect just extremely tight glycemic control and I will need to have to have some liberalization but patient has done well. Would continue to hold the Tradjenta and with the decreased basal insulin to 60 for now. 3. Debility * Patient states that he just feels overly weak at this time * Likely associated due to above * Physical and occupational therapy evaluate and treat * anticipate home with [facility]. 4. 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) Edema leg (Chronic) Hammertoe of right foot (Chronic) Corns and callosities (Chronic) Diabetes mellitus (Chronic) Non-pressure chronic ulcer of other part of left foot with fat layer exposed (Chronic) dorsal left medial foot Non-pressure chronic ulcer of other part of right foot with fat layer exposed (Chronic) PAD (peripheral artery disease) (Chronic) Diabetes mellitus with neuropathy (Chronic) CAD (coronary artery disease) (Chronic) Malnutrition (Chronic) Delayed wound healing (Chronic) Lower extremity edema (Chronic) Hypertension (Chronic) Hyperlipidemia (Chronic) Hypothyroidism (Chronic) Coronary artery disease (Chronic) Sleep apnea (Chronic) Chronic kidney disease (Chronic) PAOD (peripheral arterial occlusive disease) (Chronic) GERD (gastroesophageal reflux disease) (Chronic) Muscle spasm (Chronic) Osteomyelitis of left foot (Chronic) Type 2 diabetes mellitus with diabetic polyneuropathy (Chronic) Pulmonary hypertension (Chronic) Obstructive sleep apnea (Chronic) Morbid obesity (Chronic) Non compliance with medical treatment (Chronic) Diabetic foot ulcers (Chronic) Aortocoronary bypass status (Chronic) Type II diabetes mellitus, uncontrolled (Chronic) History of esophageal reflux (Chronic) History of hyperlipidemia (Chronic) History of hypertension (Chronic) History of hypothyroidism (Chronic) Macular infarction (Chronic) Peripheral vascular disease (Chronic) Hospital Course and Treatment Imaging Results: Clinical Impression(s) from Imaging Studies Brain CT 12/17/18 09:17 IMPRESSION: Chronic involutional changes of the brain. Stable examination. Electronically Signed: Awi Dana, at 11:00 EDT , Service support , Chest X-Ray 12/17/18 09:17 IMPRESSION: Stable pleural parenchymal changes at the left lung base suggestive of scarring. Electronically Signed: Wai Cortez, at 9:56 EDT , Service support , Operations: None Procedures: None Summary of Care Provided: The patient is a 68 year old M presents with syncope. Patient was hypoglycemic. Patient was brought in to be observed. Patient continued to have hypoglycemia on the morning of the and patient was continued to be monitored. Hypoxemia is likely due to holdover effect due to the Tradjenta but also very high dosing of the Lantus. Lantus been cut back to 16 patient seem to be tolerating that well. Patient will need to follow-up his primary care physician to see further adjustments would be necessary to be made to the Lantus. Still would continue to recommend holding off of the Tradjenta. [] Patient Problems: Active and Suspected Problems (Last Reviewed 12/17/18 @ 12:36 by Abran Garcia DO) Syncope and collapse (Acute) Hypoglycemia (Acute) - Physical Exam General: Alert, No apparent distress HEENT: Atraumatic, Normocephalic Oral: Moist Mucosa, No Gingival or Mucosal Lesions/ Ulcerations Psych/Mental Status: Normal Affect, Appropriate Vital Signs Temp Pulse Resp BP Pulse Ox 36.9 C 65 16 106/43 L 94 12/19/18 09:01 12/19/18 09:12 12/19/18 09:01 12/19/18 09:01 12/19/18 09:01 Oxygen Delivery Method Room Air Weight: 116.392 kg Body Mass Index (BMI) 36.8 Finger Stick Blood Glucose 186 Intake and Output for Last 24 Hours 12/17/18 12/18/18 12/19/18 23:59 23:59 23:59 Intake Total 1347 / 1347 1680 / 1680 240 / 240 Balance 1347 / 1347 1680 / 1680 240 / 240 POC Glucose 12/19/18 12/19/18 12/19/18 10:55 07:17 06:56 POC Glucose 248 H 117 H 69 L 12/19/18 12/19/18 12/18/18 06:22 03:11 22:02 POC Glucose 67 L 152 H 115 H 12/18/18 16:35 POC Glucose 182 H Discharge Diet: 1800 Calorie Control Diet Discharge Activity: Return to Normal Activity Call your doctor if you observe: Fainting spells, - - low blood sugars (less than 60) Home Medications: Medications to take at Discharge Clopidogrel Bisulfate [Plavix] 75 mg PO DAILY 05/15/13 Levothyroxine [Synthroid] 200 mcg PO DAILY 05/15/13 Metoprolol Tartrate [Lopressor (beta ramo)] 50 mg PO BID 05/15/13 Atorvastatin Calcium [Lipitor] 80 mg PO QHS 01/12/16 Pantoprazole Sodium [Protonix] 20 mg PO DAILY 01/12/16 Iron Polysaccharide Complex [Ferrex 150] 150 mg PO DAILYCM #30 cap 09/07/17 Aspirin E.C. [Ecotrin] 81 mg PO DAILY@0800 01/16/18 Fluticasone 0.05% [Flonase Nasal Sumner] 1 spray NASAL DAILY 01/16/18 Meclizine HCl 25 mg PO TID 01/16/18 Baclofen 10 mg PO TID 08/16/18 Plecanatide [Trulance] 3 mg PO DAILY 08/16/18 Furosemide [Lasix] 80 mg PO BIDLX 11/19/18 Metolazone [Zaroxolyn] 2.5 mg PO DAILY #90 tab 11/26/18 Sacubitril/Valsartan 24/26 mg [Entresto 24 mg-26 mg Tablet] 1 ea PO DAILY 12/17/18 Insulin Glargine,Hum.rec.anlog [Toujeo Solostar] 60 unit SQ DAILY #0 12/19/18 Primary Care Physician: Johnathan Batres Chi, MD [Primary Care Provider] - Within 1 Week Disposition: Home with Home Health Minutes spent on discharge:: 28 Patient Condition:: Fair Medical Necessity - Tobacco Use Smoking Status: Former smoker Tobacco Use: Cigars, Chew Meaningful Use Info Meaningful Use Diagnoses (Choose all that apply): None applicable Code Visit Inpatient E&M: [address] [facility]
--- NOTE | 2018-12-19 12:06 | CASEMGMT ---
Millie at [facility] aware that pt is OBS and that he will be discharged today, voices understanding. Adam HALL CM
[2018-12-19] MEDS: Insulin Lispro 100 UNIT/ML INSULN.PEN SC (12:52)
--- NOTE | 2018-12-19 14:48 | CASEMGMT ---
[place] called Rosy Cifuentes, patient's Passport CM and left her a voice mail letting her know patient was discharged today. [place] also called [employer] coverage line and let them know as well. Yas SCOTT MSW
== END 2018-12-19 11:33 | disposition home health service (06) ==
LOC: ED 09:59 → PCU 11:24
PROVIDERS: Emergency Provider Emergency Medicine; Family Provider Family Medicine Geriatric Medicine; PCP Family Medicine Geriatric Medicine
DX: E11.649 Type 2 diabetes mellitus with hypoglycemia without coma (principal); R55 Syncope and collapse; E11.42 Type 2 diabetes mellitus with diabetic polyneuropathy; E11.22 Type 2 diabetes mellitus with diabetic chronic kidney disease; I13.0 Hypertensive heart and chronic kidney disease with heart failure and stage 1 through stage 4 chronic kidney disease, or unspecified chronic kidney disease; N18.9 Chronic kidney disease, unspecified; E11.51 Type 2 diabetes mellitus with diabetic peripheral angiopathy without gangrene; I25.10 Atherosclerotic heart disease of native coronary artery without angina pectoris; E78.5 Hyperlipidemia, unspecified; E03.9 Hypothyroidism, unspecified; K21.9 Gastro-esophageal reflux disease without esophagitis; G47.33 Obstructive sleep apnea (adult) (pediatric); E66.01 Morbid (severe) obesity due to excess calories; E11.65 Type 2 diabetes mellitus with hyperglycemia; Z91.19 Patient's noncompliance with other medical treatment and regimen; Z79.899 Other long term (current) drug therapy; Z79.02 Long term (current) use of antithrombotics/antiplatelets; Z79.4 Long term (current) use of insulin; Z79.82 Long term (current) use of aspirin; Z68.36 Body mass index [BMI] 36.0-36.9, adult; Z71.3 Dietary counseling and surveillance; Z87.891 Personal history of nicotine dependence; I50.9 Heart failure, unspecified
CPT/HCPCS: 36415; 70450; 71045; 80053; 82550; 82947; 82962; 84484; 85025; 93005; 96360; 97166; 99218; 99285; J7030; A4216; G0378; J1610

== ENCOUNTER → 2018-12-25 10:30 | Outpatient (CLI) | payer MEDICARE, MEDICAID, SELFPAY ==
[2018-12-17 12:46] VITALS: BMI 36.8
[2018-12-25 16:44] LABS: Absolute Lymphocyte Count 1.16 X10^3/uL (0.83-4.51); Absolute Neutrophil Count 5.3 X10^3/uL (2.0-7.7); Basophil# 0.07 X10^3/uL; Basophil% 0.9 % (0-1); Eosinophil# 0.46 X10^3/uL; Eosinophils% 5.9 % (0-5); Hemoglobin 13.4 g/dL (13.0-16.5); Lymphocyte # 1.16 X10^3/ul (4.0); Lymphocyte % 14.8 % (19-41); Mean Corp Hgb Conc 32.7 g/dL (32-36); Mean Corpuscular Hgb 29.6 pg (27.0-32.0); Mean Corpuscular Volume 90.5 fL (80-94); Mean Platelet Vol. 10.1 fl (6.2-12.0); Monocyte# 0.76 X10^3/uL; Monocyte% 9.7 % (0-10); NRBC Flagged by Analyzer 0 % (0-5); Neutrophil # 5.34 X10^3/uL (2.7-7.7); Neutrophil % 68.2 % (47-70); Platelet Count 282 K/mm3 (150-450); RBC Distribution Width CV 14.8 % (11.6-14.6); RBC Distribution Width SD 49.2 fl (35.1-43.9); Red Blood Count 4.53 M/mm3 (4.6-6.2); White Blood Count 7.8 K/mm3 (4.4-11.0)
[2018-12-25 17:12] LABS: Vitamin D,25 Hydroxy 37.2 ng/mL (29.95-100.01)
[2018-12-25 17:19] LABS: ALB/GLOB Ratio 0.8 RATIO (0.9-2.4); AST(SGOT) 28 U/L (15-37); Alanine Aminotransfer ALT/SGPT 30 U/L (16-61); Albumin, Serum 3.3 g/dL (3.2-5.0); Alkaline Phosphatase 86 U/L (45-117); Anion Gap 7 (5-15); BUN 31 mg/dL (7-18); BUN/Creat Ratio 20.4 RATIO (10-20); Calcium,Total 8.6 mg/dL (8.5-10.1); Chloride 96 mmol/L (98-107); Cholesterol 143 mg/dL (200); Creatinine, Serum 1.52 mg/dL (0.70-1.30); EST Glomerular Filtration Rate 49 mL/min (>60); Est Glom Filt Rate - Afr Amer 59 mL/min (>60); Glucose 137 mg/dL (74-106); High Density Lipoprotein 45 mg/dL; PSA,Total - Annual Screen 0.46 ng/mL (0.00-4.00); Potassium 3.1 mmol/L (3.5-5.1); Protein, Total 7.3 g/dL (6.4-8.2); Sodium Level 134 mmol/L (136-145); Thyroid Stim Hormone (TSH) 7.35 uIU/mL (0.358-3.74); Triglycerides 104 mg/dL; Very Low Density Lipoprotein 21 mg/dL (5-40)
== END ==
PROVIDERS: Family Provider Family Medicine Geriatric Medicine; PCP Family Medicine Geriatric Medicine; Visit Provider Family Medicine Geriatric Medicine
DX: E11.9 Type 2 diabetes mellitus without complications (principal); E55.9 Vitamin D deficiency, unspecified; E78.5 Hyperlipidemia, unspecified; I10 Essential (primary) hypertension; Z12.5 Encounter for screening for malignant neoplasm of prostate
CPT/HCPCS: 36415; 80053; 80061; 82306; 84153; 84443; 85025; G0103

== ENCOUNTER → 2019-02-19 16:45 | Outpatient (CLI) | payer MEDICARE, MEDICAID, SELFPAY ==
[2018-12-17 12:46] VITALS: BMI 36.8
--- NOTE | 2019-02-19 17:08 | RAD_ITS ---
STUDY: X-RAY - ABDOMEN/PELVIS REASON FOR EXAM: Male, 69 years old. Fecal impaction TECHNIQUE: Flat and upright COMPARISON: None. FINDINGS: Normal visualized lung bases. No evidence for small bowel obstruction. There is diffuse fecal retention seen throughout the colon.. There is no demonstrated free abdominal air. The visualized liver, spleen and kidneys are grossly normal in size and morphology. Postop change status post cholecystectomy. Lumbar spine demonstrates mild scoliosis and degenerative change. .. RAD/Abd Inc Decub and/or Erect IMPRESSION: Nonspecific diffuse fecal retention within the colon Electronically Signed: Laureano Kilgore MD at 18:25 EDT , Service support ,
[2019-02-19 17:46] LABS: Absolute Lymphocyte Count 1.34 X10^3/uL (0.83-4.51); Absolute Neutrophil Count 6.9 X10^3/uL (2.0-7.7); Basophil# 0.06 X10^3/uL; Basophil% 0.6 % (0-1); Eosinophils% 3.2 % (0-5); Hematocrit 43.8 % (40-54); Hemoglobin 14.7 g/dL (13.0-16.5); Lymphocyte # 1.34 X10^3/ul (4.0); Lymphocyte % 14.3 % (19-41); Mean Corp Hgb Conc 33.6 g/dL (32-36); Mean Corpuscular Hgb 29.6 pg (27.0-32.0); Mean Corpuscular Volume 88.3 fL (80-94); Monocyte# 0.71 X10^3/uL; Monocyte% 7.6 % (0-10); NRBC Flagged by Analyzer 0 % (0-5); Neutrophil # 6.92 X10^3/uL (2.7-7.7); Neutrophil % 73.6 % (47-70); Platelet Count 308 K/mm3 (150-450); RBC Distribution Width CV 14.6 % (11.6-14.6); RBC Distribution Width SD 46.7 fl (35.1-43.9); Red Blood Count 4.96 M/mm3 (4.6-6.2); White Blood Count 9.4 K/mm3 (4.4-11.0)
[2019-02-19 18:01] LABS: ALB/GLOB Ratio 0.7 RATIO (0.9-2.4); AST(SGOT) 20 U/L (15-37); Alanine Aminotransfer ALT/SGPT 29 U/L (16-61); Albumin, Serum 3.1 g/dL (3.2-5.0); Alkaline Phosphatase 65 U/L (45-117); Anion Gap 7 (5-15); BUN 42 mg/dL (7-18); BUN/Creat Ratio 23.3 RATIO (10-20); Calcium,Total 9.1 mg/dL (8.5-10.1); Chloride 95 mmol/L (98-107); EST Glomerular Filtration Rate 40 mL/min (>60); Est Glom Filt Rate - Afr Amer 49 mL/min (>60); Globulin 4.2 g/dL (2.2-4.2); Glucose 127 mg/dL (74-106); Potassium 3.4 mmol/L (3.5-5.1); Protein, Total 7.3 g/dL (6.4-8.2); Sodium Level 136 mmol/L (136-145)
[2019-02-19 21:09] LABS: M R Staph aureus DNA By PCR Negative (Negative); Probe Check PASS; Specimen Processing Control PASS; Staph aureus DNA By PCR POSITIVE (Negative)
== END ==
PROVIDERS: Family Provider Family Medicine Geriatric Medicine; PCP Family Medicine Geriatric Medicine; Referring Provider Family Medicine Geriatric Medicine; Visit Provider Family Medicine Geriatric Medicine
DX: R60.9 Edema, unspecified (principal); K56.41 Fecal impaction
CPT/HCPCS: 36415; 74019; 80053; 85025; 87070; 87077; 87186; 87205; 87640

== ENCOUNTER → 2019-02-21 09:29 | Outpatient (CLI) | payer MEDICARE, MEDICAID, SELFPAY ==
[2018-12-17 12:46] VITALS: BMI 36.8
--- NOTE | 2019-02-21 09:35 | RAD_ITS ---
STUDY: X-RAY - LUMBOSACRAL SPINE REASON FOR EXAM: Male, 69 years old. Chronic low back pain. TECHNIQUE: 6 view(s) of the lumbosacral spine were obtained including oblique views and flexion and extension views.. COMPARISON: None FINDINGS: Normal lumbar lordosis. There is a minimal levoscoliosis of the lumbar spine. There is normal alignment of the vertebrae. Normal vertebral bodies and endplates. Normal disc space heights. Facet joint osteoarthritis. Normal bilateral sacral ala, sacroiliac joints, and visualized sacrum. There is atherosclerotic calcification of the abdominal aorta without a demonstrated aneurysm. Calcification of the vas deferens. RAD/L/S Spine w Bend Min 6 Vw IMPRESSION: Degenerative changes of the spine, as detailed above. Electronically Signed: Wai Cortez, at 13:07 EDT , Service support ,
== END ==
PROVIDERS: Family Provider Family Medicine Geriatric Medicine; PCP Family Medicine Geriatric Medicine; Referring Provider Family Medicine Geriatric Medicine; Visit Provider Family Medicine Geriatric Medicine
DX: M54.5 Low back pain (principal)
CPT/HCPCS: 72114

== ENCOUNTER 2019-03-05 10:38 | Outpatient (RCR) | payer MEDICARE, MEDICAID, SELFPAY ==
[2018-12-17 12:46] VITALS: BMI 36.8
[2019-03-05 11:17] VITALS: BP 105/59; PULSE 61; RESP 18; TEMP 35.3; BMI 32.5
--- NOTE | 2019-03-05 19:41 | PN.PCM_ITS ---
(1) Bilateral leg edema Status: Chronic Current Visit: Yes Code(s): R60.0 - Localized edema (2) Ulcer of right lower extremity with fat layer exposed Status: Chronic Current Visit: Yes Code(s): L97.912 - Non-pressure chronic ulcer of unspecified part of right lower leg with fat layer exposed (3) Blister (nonthermal), right foot, initial encounter Status: Acute Current Visit: Yes Code(s): S90.821A - Blister (nonthermal), right foot, initial encounter (4) Ulcer of right foot with fat layer exposed Status: Chronic Current Visit: Yes Code(s): L97.512 - Non-pressure chronic ulcer of other part of right foot with fat layer exposed (5) Corns and callosities Status: Chronic Current Visit: Yes Code(s): L84 - Corns and callosities (6) Type 2 diabetes mellitus with diabetic polyneuropathy Status: Chronic Current Visit: Yes Qualifiers: Diabetes mellitus terminologist insulin use: with alf use Qualified Code(s): E11.42 - Type 2 diabetes mellitus with diabetic polyneuropathy; Z79.4 - MCC (current) use of insulin Code(s): E11.42 - Type 2 diabetes mellitus with diabetic polyneuropathy (7) Venous insufficiency (chronic) (peripheral) Status: Chronic Current Visit: Yes Code(s): I87.2 - Venous insufficiency (chronic) (peripheral) (8) Other specified peripheral vascular diseases Status: Chronic Current Visit: Yes Code(s): I73.89 - Other specified periphe ral vascular diseases (9) Malnutrition Status: Chronic Current Visit: Yes Code(s): E46 - Unspecified protein- calorie malnutrition (10) Chronic kidney disease Status: Chronic Current Visit: Yes Qualifiers: Code(s): N18.9 - Chronic kidney disease, unspecified Type of Wound Date of Service: 03/05/19 Chief Complaint: Right leg ulcer. Right foot ulcer on the toe that is new. Right foot blister on the top. Callus hardening left foot History of Wound: This 69-year-old male who presents to the wound healing center today with complaint of right leg and foot ulcers with chronic bilateral lower extremity swelling and callus to left foot. He denies fever, chill, nausea, vomiting. The onset of his right leg ulcer was approximately 1 month ago and possibly longer. He denies redness or odor. He admits he has not been wearing his compression dressing or offloading surgical shoes. He takes Glucerna nutritional supplement. He has new blister and drainage from his toe over the past week and does not recall any specific traumatic incident. Progress of Wound: Stable - Physical Exam Vital Signs Temp Pulse Resp BP 95.5 F L 61 18 105/59 L 03/05/19 11:17 03/05/19 11:17 03/05/19 11:17 03/05/19 11:17 General: Alert, Oriented x3, Cooperative, No apparent distress HEENT: Atraumatic Extremities: No cyanosis, Capillary Refill Less than 3 Seconds, No Calf Tenderness - Negative Rashad and Tenorio sign bilateral, Diminished Peripheral Pulses, Edema - Bilateral lower extremities moderate, - - Dorsal contracture lesser digits right and transmetatarsal amputation noted left. Compartment soft to palpate bilateral lower extremities Skin: Ulcer/ Wound - No purulence, erythema, streaking, odor, infection bilateral. There is a callus to the plantar left foot upon debridement there is some hemorrhagic dry tissue noted without open ulceration or infection. There is a new right skin discontinuity to the dorsal distal fourth toe with no deep tissue exposed or bone. The anterior leg cluster sites are noted without infection or deep tissue exposed. The skin is hairless and atrophic bilateral lower extremities Wound Measurements and Assessment WC - Nurse 1 - General Ulcer Measurement Start: 03/05/19 11:16 Freq: Status: Active Protocol: Activity Type Activity Date Activity User E-Sign Co-Sign Detail Recorded Client Recorded Date Recorded By Document 03/05/19 11:17 JOE [id number] 03/05/19 11:19 JOE 03/05/19 11:17 Wound Center Nurse 1 [Edema Assessment] -Lower Limb Edema Present Yes -Right Calf (cm) 43 -Right Ankle (cm) 22.2 -Left Calf (cm) 42.5 -Left Ankle (cm) 23.4 WC - Nurse 2 - General Ulcer CM Notes Start: 03/05/19 11:16 Freq: Status: Active Protocol: Activity Type Activity Date Activity User E-Sign Co-Sign Detail Recorded Client Recorded Date Recorded By Document 03/05/19 11:54 AN [id number] 03/05/19 12:02 AN 03/05/19 11:54 Pain Scale: 0-10 Numeric [Pain] -Is Patient Pain Free? Yes Musculoskeletal: No Tenderness to Palpation of Joints or Extremities, Muscle Wasting Neurological: - - Lack of normal epicritic sensation light touch is consistent with neuropathy Psych/Mental Status: Normal Affect, Appropriate Debridement Note Post-Debridement Measurements/Treatment WC - Nurse 2 - General Ulcer CM Notes Start: 03/05/19 11:16 Freq: Status: Active Protocol: Activity Type Activity Date Activity User E-Sign Co-Sign Detail Recorded Client Recorded Date Recorded By Document 03/05/19 11:54 AN [id number] 03/05/19 12:02 AN 03/05/19 11:54 Pain Scale: 0-10 Numeric Is Patient Pain Free? Yes Wound debrided: dorsal distal fourth toe Laterality: Right Wound Grade/Stage: grade 1 Type of Debridement: Excisional debridement Anesthesia Used: 5% Lidocaine Gel Depth: in the subcutaneous layer - Pre-debridement 0.3 x 0.3 x 0.1 and post debridement 0.5 x 0.5 x 0.1 cm with granular base. Percentage of wound debrided: 100 Instrument Used: #15 blade Tissue Removed: fibrous, devitalized subcutaneous, biofilm, slough Severity: Fat Layer Exposed Amount of bleeding with debridement: Mild Bleeding Controlled with: Pressure No debridement was completed today - Additional Wound Wound debrided: dorsal foot bulla drainage; serous drainage only, skin intactbiologicdressi Laterality: Right - Additional Wound Wound debrided: anterior lateral leg Laterality: Right Wound Grade/Stage: grade 1 Type of Debridement: Excisional debridement Anesthesia Used: 5% Lidocaine Gel Depth: in the subcutaneous layer - Pre-debridement 1.3 x 1.3 x 0.1 cm post debridement 1.4 x 1.4 x 0.1 cm with granular pale base Percentage of wound debrided: 100 Instrument Used: #15 blade Tissue Removed: fibrous, devitalized subcutaneous, biofilm, slough Severity: Fat Layer Exposed Amount of bleeding with debridement: Mild Bleeding Controlled with: Pressure Patient tolerated procedure: Patient tolerated procedure well - Additional Wound Wound debrided: anterior medial leg cluster Laterality: Right Wound Grade/Stage: grade 1 Type of Debridement: Excisional debridement Anesthesia Used: 5% Lidocaine Gel Depth: in the subcutaneous layer Percentage of wound debrided: - - 5% debrided: Pre-debridement cluster 8.9 x 7.9 x 0.1 cm and post debridement 9.0 x 8.0 x 0.1 cm with pale granular base Instrument Used: #15 blade, 3-12 blade Tissue Removed: fibrous, devitalized subcutaneous, biofilm, slough Severity: Fat Layer Exposed Amount of bleeding with debridement: Mild Bleeding Controlled with: Pressure Patient tolerated procedure: Patient tolerated procedure well Assessment/Plan Active Problems (Last Reviewed 12/31/18 @ 09:10 by Alma Garcia) Bilateral leg edema (Chronic) Ulcer of right lower extremity with fat layer exposed (Chronic) Blister (nonthermal), right foot, initial encounter (Acute) Ulcer of right foot with fat layer exposed (Chronic) Corns and callosities (Chronic) Type 2 diabetes mellitus with diabetic polyneuropathy (Chronic) Venous insufficiency (chronic) (peripheral) (Chronic) Other specified peripheral vascular diseases (Chronic) Malnutrition (Chronic) Chronic kidney disease (Chronic) Assessment: Right fourth toe ulcer with fat layer exposed with no infection, hardy grade 1. Ulcer right foot bulla, no infection drained today. Right leg ulcers with fat layer exposed, no infection these are hardy grade 1. Callus left foot with no ulcer at prior transmetatarsal amputation site. Venous insufficiency and chronic lower extremity edema also complicated with congestive heart failure. peripheral vascular disease with recent intervention 2018. diabetes with neuropathy. malnutrition. non compliance history Plan: The patient was seen and examined at the wound center today and was updated on the plan of care. A subcutaneous debridement was performed today to the right foot and right leg. To change dressing daily with [employer]. His left callus was debrided and there is no ulcer noted and there is no dressing recommendation for the left limb at this time. To continue Lac-Hydrin application to adjacent dry skin avoiding direct wound application. To keep pressure off the ulcer sites to optimize healing; he has surgical shoes. To wear compression Tubigrip garments. To elevate legs at rest to avoid idle standing or sitting. To continue with nutritional supplementation and proper glycemic control to optimize healing. He was reassured no local signs of infection are noted today. To monitor closely. Instructed to follow-up with PCP and to maintain Marketing Operations Specialist for improved glucose control. He had prior vascular surgery intervention with Dr. Redding. There are not any signs of cri tical limb ischemia at this time. Patient will follow up at wound healing center in one week or sooner if needed. To wear left foot extra-depth shoe toe filler. I recommend he transition to weightbearing as tolerated with a surgical shoe on the right foot and he has this at home already. I answered all the questions.
== END 2019-03-10 23:59 ==
LOC: WC 10:38
PROVIDERS: Family Provider Family Medicine Geriatric Medicine; PCP Family Medicine Geriatric Medicine; Visit Provider Podiatrist
DX: E11.622 Type 2 diabetes mellitus with other skin ulcer (principal); L97.512 Non-pressure chronic ulcer of other part of right foot with fat layer exposed; E11.621 Type 2 diabetes mellitus with foot ulcer; E11.42 Type 2 diabetes mellitus with diabetic polyneuropathy; I87.2 Venous insufficiency (chronic) (peripheral); R60.0 Localized edema; E11.22 Type 2 diabetes mellitus with diabetic chronic kidney disease; N18.9 Chronic kidney disease, unspecified; E11.51 Type 2 diabetes mellitus with diabetic peripheral angiopathy without gangrene; L97.812 Non-pressure chronic ulcer of other part of right lower leg with fat layer exposed; S90.821A Blister (nonthermal), right foot, initial encounter; X58.XXXA Exposure to other specified factors, initial encounter
CPT/HCPCS: 11042

== ENCOUNTER 2019-04-09 15:30 | Outpatient (RCR) | payer MEDICARE, MEDICAID, SELFPAY ==
[2019-03-11 01:17] VITALS: BP 105/59; PULSE 61; RESP 18; TEMP 35.3
[2019-03-12 15:24] VITALS: BP 114/58; PULSE 61; RESP 18; TEMP 36.1; BMI 32.5
--- NOTE | 2019-03-12 21:25 | PN.PCM_ITS ---
(1) Ulcer of right foot with fat layer exposed Status: Chronic Code(s): L97.512 - Non-pressure chronic ulcer of other part of right foot with fat layer exposed (2) Ulcer of right lower extremity with fat layer exposed Status: Chronic Code(s): L97.912 - Non-pressure chronic ulcer of unspecified part of right lower leg with fat layer exposed (3) Chronic ulcer of left foot with fat layer exposed Status: Chronic Code(s): L97.522 - Non-pressure chronic ulcer of other part of left foot with fat layer exposed (4) Bilateral leg edema Status: Chronic Code(s): R60.0 - Localized edema (5) Type 2 diabetes mellitus with diabetic polyneuropathy Status: Chronic Qualifiers: Code(s): E11.42 - Type 2 diabetes mellitus with diabetic polyneuropathy (6) Venous insufficiency (chronic) (peripheral) Status: Chronic Code(s): I87.2 - Venous insufficiency (chronic) (peripheral) (7) Other specified peripheral vascular diseases Status: Chronic Code(s): I73.89 - Other specified peripheral vascular diseases Type of Wound Date of Service: 03/12/19 Chief Complaint: Right leg ulcer. Right foot ulcer on the toe that is new. Right foot blister on the top healed. Left foot callus History of Wound: This 69-year-old male who presents to the wound healing center today with complaint of right leg and foot ulcers with chronic bilateral lower extremity swelling and callus to left foot. He denies fever, chill, nausea, vomiting. He denies redness or odor. He admits he has not been wearing his compression dressing or offloading surgical shoes. He takes Glucerna nutritional supplement. He denies new blister formation. He is not aware of any new drainage or ulcers at this time. Progress of Wound: New right leg ulcer. New third and fourth toe ulcers on right foot. New left foot ulcer - Physical Exam Vital Signs Temp Pulse Resp BP 97 F L 61 18 114/58 L 03/12/19 15:24 03/12/19 15:24 03/12/19 15:24 03/12/19 15:24 General: Alert, Oriented x3, Cooperative, No apparent distress Extremities: No cyanosis, Capillary Refill Less than 3 Seconds, No Calf Tenderness - Negative Rashad and Tenorio sign bilateral, Diminished Peripheral Pulses, Edema - Moderate bilateral lower extremities, - - Transmetatarsal amputation left foot Skin: Ulcer/ Wound - No purulence, erythema, streaking, odor, infection, maceration, deep probing tissues bilateral. Atrophic and hairless skin is noted peripherally Wound Measurements and Assessment WC - Nurse 1 - General Ulcer Measurement Start: 03/12/19 15:24 Freq: Status: Active Protocol: Activity Type Activity Date Activity User E-Sign Co-Sign Detail Recorded Client Recorded Date Recorded By Document 03/12/19 15:24 RB [id number] 03/12/19 15:28 RB 03/12/19 15:24 Wound Center Nurse 1 [Edema Assessment] -Lower Limb Edema Present Yes -Right Calf (cm) 38.5 -Right Ankle (cm) 22 -Left Calf (cm) 38.6 -Left Ankle (cm) 22 WC - Nurse 2 - General Ulcer CM Notes Start: 03/12/19 15:24 Freq: Status: Active Protocol: Activity Type Activity Date Activity User E-Sign Co-Sign Detail Recorded Client Recorded Date Recorded By Document 03/12/19 15:58 AN [id number] 03/12/19 16:04 AN 03/12/19 15:58 Wound Center Nurse 2 [Procedure/Treatment] #26 left plantar -Time 16:04 -Correct Patient Yes -Correct Side, Site, Position Yes -Correct Procedure Yes -Procedure Performed Yes -Type of Procedure Debridement -Clinical Debridement Subcutaneous -Post Debridement Size (cm) - Length 0.4 -Post Debridement Size (cm) - Width 0.4 -Post Debridement Size (cm) - Depth 0.1 -Total Square Cm 0.16 -Wound/Ulcer Outcome Not Healed -Ulcer Cleansing Rinsed/ Irrigated with Saline -Foul Odor after Cleansing No -Bioengineered Tissue No -Bleeding Controlled with Pressure -Offloading Yes -Type of Offloading Surgical Shoe -Treatment Response Procedure Tolerated Well #25 right 3rd toe -Time 16:02 -Correct Patient Yes -Correct Side, Site, Position Yes -Correct Procedure Yes -Procedure Performed Yes -Type of Procedure Debridement -Clinical Debridement Subcutaneous -Post Debridement Size (cm) - Length 0.2 -Post Debridement Size (cm) - Width 0.2 -Post Debridement Size (cm) - Depth 0.1 -Total Square Cm 0.04 -Wound/Ulcer Outcome Not Healed -Ulcer Cleansing Rinsed/ Irrigated with Saline -Foul Odor after Cleansing No -Bioengineered Tissue No -Bleeding Controlled with Pressure -Offloading Yes -Type of Offloading Surgical Shoe -Treatment Response Procedure Tolerated Well #24 right medial lower leg -Time 16:01 -Correct Patient Yes -Correct Side, Site, Position Yes -Correct Procedure Yes -Procedure Performed Yes -Type of Procedure Debridement -Clinical Debridement Subcutaneous -Post Debridement Size (cm) - Length 2 -Post Debridement Size (cm) - Width 2 -Post Debridement Size (cm) - Depth 0.1 -Total Square Cm 4 -Wound/Ulcer Outcome Not Healed -Ulcer Cleansing Rinsed/ Irrigated with Saline -Foul Odor after Cleansing No -Bioengineered Tissue No -Bleeding Controlled with Pressure -Offloading Yes -Type of Offloading Surgical Shoe -Treatment Response Procedure Tolerated Well [See Physician Procedure note for Specifics] Pain Scale: 0-10 Numeric [Pain] -Is Patient Pain Free? Yes Musculoskeletal: No Tenderness to Palpation of Joints or Extremities, Muscle Wasting, - - Dorsal contraction lesser toes right foot. Compartments soft to palpate bilateral lower extremities Neurological: - - Lack of epicritic sensation light touch consistent with neuropathy Psych/Mental Status: Normal Affect, Appropriate Debridement Note Post-Debridement Measurements/Treatment WC - Nurse 2 - General Ulcer CM Notes Start: 03/12/19 15:24 Freq: Status: Active Protocol: Activity Type Activity Date Activity User E-Sign Co-Sign Detail Recorded Client Recorded Date Recorded By Document 03/12/19 15:58 AN [id number] 03/12/19 16:04 AN 03/12/19 15:58 Wound Center Nurse 2 #26 left plantar -Time 16:04 -Correct Patient Yes -Correct Side, Site, Position Yes -Correct Procedure Yes -Procedure Performed Yes -Type of Procedure Debridement -Clinical Debridement Subcutaneous -Post Debridement Size (cm) - Length 0.4 -Post Debridement Size (cm) - Width 0.4 -Post Debridement Size (cm) - Depth 0.1 -Total Square Cm 0.16 -Wound/Ulcer Outcome Not Healed -Ulcer Cleansing Rinsed/ Irrigated with Saline -Foul Odor after Cleansing No -Bioengineered Tissue No -Bleeding Controlled with Pressure -Offloading Yes -Type of Offloading Surgical Shoe -Treatment Response Procedure Tolerated Well #25 right 3rd toe -Time 16:02 -Correct Patient Yes -Correct Side, Site, Position Yes -Correct Procedure Yes -Procedure Performed Yes -Type of Procedure Debridement -Clinical Debridement Subcutaneous -Post Debridement Size (cm) - Length 0.2 -Post Debridement Size (cm) - Width 0.2 -Post Debridement Size (cm) - Depth 0.1 -Total Square Cm 0.04 -Wound/Ulcer Outcome Not Healed -Ulcer Cleansing Rinsed/ Irrigated with Saline -Foul Odor after Cleansing No -Bioengineered Tissue No -Bleeding Controlled with Pressure -Offloading Yes -Type of Offloading Surgical Shoe -Treatment Response Procedure Tolerated Well #24 right medial lower leg -Time 16:01 -Correct Patient Yes -Correct Side, Site, Position Yes -Correct Procedure Yes -Procedure Performed Yes -Type of Procedure Debridement -Clinical Debridement Subcutaneous -Post Debridement Size (cm) - Length 2 -Post Debridement Size (cm) - Width 2 -Post Debridement Size (cm) - Depth 0.1 -Total Square Cm 4 -Wound/Ulcer Outcome Not Healed -Ulcer Cleansing Rinsed/ Irrigated with Saline -Foul Odor after Cleansing No -Bioengineered Tissue No -Bleeding Controlled with Pressure -Offloading Yes -Type of Offloading Surgical Shoe -Treatment Response Procedure Tolerated Well Pain Scale: 0-10 Numeric Is Patient Pain Free? Yes Wound debrided: leg Laterality: Right Wound Grade/Stage: grade 1 Type of Debridement: Excisional debridement Anesthesia Used: 5% Lidocaine Gel Depth: in the subcutaneous layer Percentage of wound debrided: 100 Instrument Used: #15 blade Tissue Removed: fibrous, devitalized subcutaneous, biofilm, slough Severity: Fat Layer Exposed Amount of bleeding with debridement: Mild Bleeding Controlled with: Pressure Patient tolerated procedure well - Additional Wound Wound debrided: dorsal third toe Laterality: Right Wound Grade/Stage: grade 1 Type of Debridement: Excisional debridement Anesthesia Used: 5% Lidocaine Gel Depth: in the subcutaneous layer Percentage of wound debrided: 100 Instrument Used: #15 blade Tissue Removed: fibrous, devitalized subcutaneous, biofilm, slough Amount of bleeding with debridement: Mild Bleeding Controlled with: Pressure Patient tolerated procedure: Patient tolerated procedure well - Additional Wound Wound debrided: plantar foot Laterality: Left Wound Grade/Stage: grade 1 Type of Debridement: Excisional debridement Anesthesia Used: 5% Lidocaine Gel Depth: in the subcutaneous layer Percentage of wound debrided: 100 Instrument Used: #15 blade Tissue Removed: fibrous, devitalized subcutaneous, biofilm, slough Severity: Fat Layer Exposed Amount of bleeding with debridement: Mild Bleeding Controlled with: Pressure Patient tolerated procedure: Patient tolerated procedure well - Additional Wound Wound debrided: dorsal fourth toe Laterality: Right Wound Grade/Stage: grade 1 Type of Debridement: Excisional debridement Anesthesia Used: 5% Lidocaine Gel Depth: in the subcutaneous layer Percentage of wound debrided: 100 Instrument Used: #15 blade Tissue Removed: Right fourth toe ulcer with fat layer exposed with no infection, calvin gra Severity: Fat Layer Exposed Amount of bleeding with debridement: Mild Bleeding Controlled with: Pressure Patient tolerated procedure: Patient tolerated procedure well Assessment/Plan Assessment: Right fourth toe ulcer w/ fat layer exposed with no infection,calvin grade 1. Right third toe ulcer with fat layer exposed with no infection, calvin grade 1. Ulcer right foot bulla has healed today. Right leg ulcers with fat layer exposed, no infection, calvin grade 1. left foot ulcer with fat layer exposed, no infection, Calvin grade 1. Venous insufficiency and chronic lower extremity edema also complicated with congestive heart failure. peripheral vascular disease with recent intervention 2018. diabetes with neuropathy. malnutrition. non compliance history Plan: The patient was seen and examined at the wound center today and was updated on the plan of care. A subcutaneous debridement was performed today to the right foot (toes), left foot, and right leg. To change dressing daily with Aquacel Ag. To continue Lac-Hydrin application to adjacent dry skin avoiding direct wound application. To keep pressure off the ulcer sites to optimize healing; he has surgical shoes. To wear compression Tubigrip garments. To elevate legs at rest to avoid idle standing or sitting. To continue with nutritional supplementation and proper glycemic control to optimize healing. He was reassured no local signs of infection are noted today. To monitor closely. Instructed to follow-up with PCP and to maintain [employer] for improved glucose control. He had prior vascular surgery intervention with Dr. Redding. There are not any signs of critical limb ischemia at this time. Patient will follow up at wound healing center in one week or sooner if needed. I answered all the questions.
[2019-04-02 15:18] VITALS: BP 125/57; PULSE 94; RESP 18; TEMP 35.9; BMI 32.5
--- NOTE | 2019-04-02 16:48 | PN.PCM_ITS ---
(1) Ulcer of left lower extremity with fat layer exposed Status: Acute Current Visit: Yes Code(s): L97.922 - Non-pressure chronic ulcer of unspecified part of left lower leg with fat layer exposed (2) Ulcer of right foot with fat layer exposed Status: Chronic Current Visit: Yes Code(s): L97.512 - Non-pressure chronic ulcer of other part of right foot with fat layer exposed (3) Ulcer of right lower extremity with fat layer exposed Status: Chronic Current Visit: Yes Code(s): L97.912 - Non-pressure chronic ulcer of unspecified part of right lower leg with fat layer exposed (4) Chronic ulcer of left foot with fat layer exposed Status: Chronic Current Visit: Yes Code(s): L97.522 - Non-pressure chronic ulcer of other part of left foot with fat layer exposed (5) Bilateral leg edema Status: Chronic Current Visit: Yes Code(s): R60.0 - Localized edema (6) Type 2 diabetes mellitus with diabetic polyneuropathy Status: Chronic Current Visit: Yes Qualifiers: Code(s): E11.42 - Type 2 diabetes mellitus with diabetic polyneuropathy (7) Venous insufficiency (chronic) (peripheral) Status: Chronic Current Visit: Yes Code(s): I87.2 - Venous insufficiency (chronic) (peripheral) (8) Other specified peripheral vascular diseases Status: Chronic Current Visit: Yes Code(s): I73.89 - Other specified peripheral vascular diseases Type of Wound Date of Service: 04/02/19 Chief Complaint: Right leg ulcer. Right foot ulcer. Left foot callus. New left leg ulcer History of Wound: This 69-year-old male who presents to the wound healing center today with complaint of right leg and foot ulcers with chronic bilateral lower extremity swelling. He denies fever, chill, nausea, vomiting. He denies redness or odor. He admits he has not been wearing his compression dressing or offloading surgical shoes. He takes Glucerna nutritional supplement. He denies new blister formation. He is not aware of any new drainage or ulcers at this time. Progress of Wound: right leg ulcer stable. third and fourth toe ulcers on right foot stable. left foot ulcer stable. left leg ulcer new - Physical Exam Vital Signs Temp Pulse Resp BP 96.6 F L 94 18 125/57 H 04/02/19 15:18 04/02/19 15:18 04/02/19 15:18 04/02/19 15:18 General: Alert, Oriented x3, Cooperative, No apparent distress Extremities: No cyanosis, Capillary Refill Less than 3 Seconds, No Calf Tenderness - Negative Rashad and Tenorio sign bilateral, Diminished Peripheral Pulses, Edema Skin: Ulcer/ Wound - No purulence, erythema, streaking, odor, infection bilateral. Peripheral skin is hairless and atrophic with hyperpigmentation Wound Measurements and Assessment WC - Nurse 1 - General Ulcer Measurement Start: 03/12/19 15:24 Freq: Status: Active Protocol: Activity Type Activity Date Activity User E-Sign Co-Sign Detail Recorded Client Recorded Date Recorded By Document 04/02/19 15:18 RB [id number] 04/02/19 15:34 RB 04/02/19 15:18 Wound Center Nurse 1 [Ulcer Assessment] #30 left plantar -Combined with other wound No -Current Size (cm) - Length 0.1 -Current Size (cm) - Width 0.1 -Current Size (cm) - Depth 0.1 -Total Square Cm 0.01 -Tunneling No -Undermining/Tunneling No -Circular Undermining No -Exudate Amt Small -Exudate Type Serosanguineous -Wound Margin Thickened -Granulation Amt Small (1-33%) -Granulation Quality [place] -Slough/Fibrin Yes -Necrosis Amt Medium (34-66%) -Necrotic Tissue Type Adherent Slough -Structure Exposed N/A -Texture (Maggy-wound Skin Appearance) Callus -Moisture (Maggy-wound Skin Appearance Dry/Scaly ) -Color (Maggy-wound Skin Appearance) Assessed -Temperature (Maggy-wound Skin No Abnormality Appearance) (Pt Warm) -Tenderness on Palpation (Maggy-wound No Skin Appearance) -Ulcer Cleansing Wound Cleanser -Foul Odor after Cleansing No -Anesthetic Used 4% Lidocaine Solution #29 right 3rd toe -Combined with other wound No -Current Size (cm) - Length 0.1 -Current Size (cm) - Width 0.1 -Current Size (cm) - Depth 0.1 -Total Square Cm 0.01 -Tunneling No -Undermining/Tunneling No -Circular Undermining No -Exudate Amt Small -Exudate Type Serosanguineous -Wound Margin Thickened -Granulation Amt Small (1-33%) -Granulation Quality [place] -Slough/Fibrin Yes -Necrosis Amt Medium (34-66%) -Necrotic Tissue Type Adherent Slough -Structure Exposed N/A -Texture (Maggy-wound Skin Appearance) Callus -Moisture (Maggy-wound Skin Appearance Assessed,Dry/ ) Scaly -Color (Maggy-wound Skin Appearance) Assessed -Temperature (Maggy-wound Skin No Abnormality Appearance) (Pt Warm) -Tenderness on Palpation (Maggy-wound No Skin Appearance) -Ulcer Cleansing Wound Cleanser -Foul Odor after Cleansing No -Anesthetic Used 4% Lidocaine Solution #28 right medial lower leg -Combined with other wound No -Current Size (cm) - Length 5.5 -Current Size (cm) - Width 6 -Current Size (cm) - Depth 0.1 -Total Square Cm 33.0 -Tunneling No -Undermining/Tunneling No -Circular Undermining No -Exudate Amt Medium -Exudate Type Serosanguineous -Wound Margin Flat & Intact -Granulation Amt Medium (34-66%) -Granulation Quality [place] -Slough/Fibrin Yes -Necrosis Amt Medium (34-66%) -Necrotic Tissue Type Adherent Slough -Structure Exposed N/A -Texture (Maggy-wound Skin Appearance) Assessed -Moisture (Maggy-wound Skin Appearance Maceration, ) Weeping -Color (Maggy-wound Skin Appearance) Assessed -Temperature (Maggy-wound Skin No Abnormality Appearance) (Pt Warm) -Tenderness on Palpation (Maggy-wound No Skin Appearance) -Ulcer Cleansing Wound Cleanser -Foul Odor after Cleansing No -Anesthetic Used 4% Lidocaine Solution [Edema Assessment] -Lower Limb Edema Present Yes -Right Calf (cm) 42 -Right Ankle (cm) 22.5 -Left Calf (cm) 42 -Left Ankle (cm) 23.3 WC - Nurse 2 - General Ulcer CM Notes Start: 03/12/19 15:24 Freq: Status: Active Protocol: Activity Type Activity Date Activity User E-Sign Co-Sign Detail Recorded Client Recorded Date Recorded By Document 04/02/19 16:34 AN [id number] 04/02/19 16:40 AN 04/02/19 16:34 Wound Center Nurse 2 [Procedure/Treatment] #30 left plantar -Time 16:34 -Correct Patient Yes -Correct Side, Site, Position Yes -Correct Procedure Yes -Procedure Performed Yes -Type of Procedure Debridement -Clinical Debridement Subcutaneous -Post Debridement Size (cm) - Length 0.2 -Post Debridement Size (cm) - Width 0.2 -Post Debridement Size (cm) - Depth 0.1 -Total Square Cm 0.04 -Wound/Ulcer Outcome Not Healed -Bleeding Controlled with Pressure -Offloading No -Treatment Response Procedure Tolerated Well #29 right 3rd toe -Time 16:34 -Correct Patient Yes -Correct Side, Site, Position Yes -Correct Procedure Yes -Procedure Performed Yes -Type of Procedure Debridement -Clinical Debridement Subcutaneous -Post Debridement Size (cm) - Length 0.2 -Post Debridement Size (cm) - Width 0.2 -Post Debridement Size (cm) - Depth 0.1 -Total Square Cm 0.04 -Wound/Ulcer Outcome Not Healed -Ulcer Cleansing Rinsed/ Irrigated with Saline -Bleeding Controlled with Pressure -Offloading No -Treatment Response Procedure Tolerated Well #28 right medial lower leg -Time 16:34 -Correct Patient Yes -Correct Side, Site, Position Yes -Correct Procedure Yes -Procedure Performed Yes -Type of Procedure Debridement -Clinical Debridement Subcutaneous -Post Debridement Size (cm) - Length 5.6 -Post Debridement Size (cm) - Width 6.1 -Post Debridement Size (cm) - Depth 0.1 -Total Square Cm 34.16 -Wound/Ulcer Outcome Not Healed -Bleeding Controlled with Pressure -Offloading No -Treatment Response Procedure Tolerated Well [See Physician Procedure note for Specifics] Pain Scale: 0-10 Numeric [Pain] -Is Patient Pain Free? Yes Musculoskeletal: No Tenderness to Palpation of Joints or Extremities, Muscle Wasting, - - Left transmetatarsal amputation. Right dorsal contraction of lesser toes. Bilateral soft compartments to palpate to the lower extremities Neurological: - - Lack of epicritic sensation light touch is consistent with neuropathy Psych/Mental Status: Normal Affect, Appropriate Debridement Note Post-Debridement Measurements/Treatment WC - Nurse 2 - General Ulcer CM Notes Start: 03/12/19 15:24 Freq: Status: Active Protocol: Activity Type Activity Date Activity User E-Sign Co-Sign Detail Recorded Client Recorded Date Recorded By Document 03/12/19 15:58 AN [id number] 03/12/19 16:04 AN Document 04/02/19 16:34 AN [id number] 04/02/19 16:40 AN 03/12/19 04/02/19 15:58 16:34 Wound Center Nurse 2 #30 left plantar -Time 16:04 16:34 -Correct Patient Yes Yes -Correct Side, Site, Position Yes Yes -Correct Procedure Yes Yes -Procedure Performed Yes Yes -Type of Procedure Debridement Debridement -Clinical Debridement Subcutaneous Subcutaneous -Post Debridement Size (cm) - Length 0.4 0.2 -Post Debridement Size (cm) - Width 0.4 0.2 -Post Debridement Size (cm) - Depth 0.1 0.1 -Total Square Cm 0.16 0.04 -Wound/Ulcer Outcome Not Healed Not Healed -Ulcer Cleansing Rinsed/ Irrigated with Saline -Foul Odor after Cleansing No -Bioengineered Tissue No -Bleeding Controlled with Pressure Pressure -Offloading Yes No -Type of Offloading Surgical Shoe -Treatment Response Procedure Procedure Tolerated Well Tolerated Well #29 right 3rd toe -Time 16:02 16:34 -Correct Patient Yes Yes -Correct Side, Site, Position Yes Yes -Correct Procedure Yes Yes -Procedure Performed Yes Yes -Type of Procedure Debridement Debridement -Clinical Debridement Subcutaneous Subcutaneous -Post Debridement Size (cm) - Length 0.2 0.2 -Post Debridement Size (cm) - Width 0.2 0.2 -Post Debridement Size (cm) - Depth 0.1 0.1 -Total Square Cm 0.04 0.04 -Wound/Ulcer Outcome Not Healed Not Healed -Ulcer Cleansing Rinsed/ Rinsed/ Irrigated with Irrigated with Saline Saline -Foul Odor after Cleansing No -Bioengineered Tissue No -Bleeding Controlled with Pressure Pressure -Offloading Yes No -Type of Offloading Surgical Shoe -Treatment Response Procedure Procedure Tolerated Well Tolerated Well #28 right medial lower leg -Time 16:01 16:34 -Correct Patient Yes Yes -Correct Side, Site, Position Yes Yes -Correct Procedure Yes Yes -Procedure Performed Yes Yes -Type of Procedure Debridement Debridement -Clinical Debridement Subcutaneous Subcutaneous -Post Debridement Size (cm) - Length 2 5.6 -Post Debridement Size (cm) - Width 2 6.1 -Post Debridement Size (cm) - Depth 0.1 0.1 -Total Square Cm 4 34.16 -Wound/Ulcer Outcome Not Healed Not Healed -Ulcer Cleansing Rinsed/ Irrigated with Saline -Foul Odor after Cleansing No -Bioengineered Tissue No -Bleeding Controlled with Pressure Pressure -Offloading Yes No -Type of Offloading Surgical Shoe -Treatment Response Procedure Procedure Tolerated Well Tolerated Well Pain Scale: 0-10 Numeric Is Patient Pain Free? Yes Yes Wound debrided: 3rd toe dorsal Laterality: Right - g Wound Grade/Stage: grade 1 Type of Debridement: Excisional debridement Anesthesia Used: 5% Lidocaine Gel Depth: in the subcutaneous layer Percentage of wound debrided: 100 Instrument Used: #15 blade Tissue Removed: fibrous, devitalized subcutaneous, biofilm, slough Severity: Fat Layer Exposed Amount of bleeding with debridement: Mild Bleeding Controlled with: Pressure Patient tolerated procedure well - Additional Wound Wound debrided: dorsal fourth toe Laterality: Right Wound Grade/Stage: grade 1 Type of Debridement: Excisional debridement Anesthesia Used: 5% Lidocaine Gel Depth: in the subcutaneous layer Percentage of wound debrided: 100 Instrument Used: #15 blade Tissue Removed: fibrous, devitalized subcutaneous, biofilm, slough Severity: Fat Layer Exposed Amount of bleeding with debridement: Mild Bleeding Controlled with: Pressure Patient tolerated procedure: Patient tolerated procedure well - Additional Wound Wound debrided: medial proximal leg Laterality: Right Wound Grade/Stage: grade 1 Type of Debridement: Excisional debridement Anesthesia Used: 5% Lidocaine Gel Depth: in the subcutaneous layer Percentage of wound debrided: 100 Instrument Used: #15 blade Tissue Removed: fibrous, devitalized subcutaneous, biofilm, slough Severity: Fat Layer Exposed Amount of bleeding with debridement: Mild Bleeding Controlled with: Pressure Patient tolerated procedure: Patient tolerated procedure well - Additional Wound Wound debrided: medial leg Laterality: Left Wound Grade/Stage: grade 1 Type of Debridement: Excisional debridement Anesthesia Used: 5% Lidocaine Gel Depth: in the subcutaneous layer Percentage of wound debrided: 100 Instrument Used: #15 blade Tissue Removed: fibrous, devitalized subcutaneous, biofilm, slough Severity: Fat Layer Exposed Amount of bleeding with debridement: Mild Bleeding Controlled with: Pressure Patient tolerated procedure: Patient tolerated procedure well - Additional Wound Wound debrided: plantar foot Laterality: Left Wound Grade/Stage: grade 1 Type of Debridement: Excisional debridement Anesthesia Used: 5% Lidocaine Gel Depth: in the subcutaneous layer Percentage of wound debrided: 100 Instrument Used: #15 blade Tissue Removed: fibrous, devitalized subcutaneous, biofilm, slough Severity: Fat Layer Exposed Amount of bleeding with debridement: Mild Bleeding Controlled with: Pressure Patient tolerated procedure: Patient tolerated procedure well Assessment/Plan Active Problems (Last Reviewed 12/31/18 @ 09:10 by Alma Garcia) Bilateral leg edema (Chronic) Ulcer of right lower extremity with fat layer exposed (Chronic) Ulcer of right foot with fat layer exposed (Chronic) Type 2 diabetes mellitus with diabetic polyneuropathy (Chronic) Venous insufficiency (chronic) (peripheral) (Chronic) Other specified peripheral vascular diseases (Chronic) Chronic ulcer of left foot with fat layer exposed (Chronic) Ulcer of left lower extremity with fat layer exposed (Acute) Assessment: Right fourth toe ulcer w/ fat layer exposed with no infection,calvin grade 1. Right third toe ulcer with fat layer exposed with no infection, calvin grade 1. Right leg ulcers with fat layer exposed, no infection, calvin grade 1. left foot ulcer with fat layer exposed, no infection, Calvin grade 1. New left leg ulcer with fat layer exposed, no infection, calvin grade 1. Venous insufficiency and chronic lower extremity edema also complicated with congestive heart failure. peripheral vascular disease with recent intervention 2017. diabetes with neuropathy. malnutrition. non compliance history Plan: The patient was seen and examined at the wound center today and was updated on the plan of care. A subcutaneous debridement was performed today to the right foot (toes), left foot, left leg, and right leg. To change dressing daily with Aquacel Ag. To continue Lac-Hydrin application to adjacent dry skin avoiding direct wound application. To keep pressure off the ulcer sites to optimize healing; he has surgical shoes. To wear compression Tubigrip garments. To elevate legs at rest to avoid idle standing or sitting. To continue with nutritional supplementation and proper glycemic control to optimize healing. He was reassured no local signs of infection are noted today. To monitor closely. Instructed to follow-up with PCP and to maintain Human Factors Scientist for improved glucose control. He had prior vascular surgery intervention with Dr. Redding. There are not any signs of critical limb ischemia at this time. Patient will follow up at wound healing center in one week or sooner if needed. I answered all the questions.
[2019-04-09 17:19] LABS: Absolute Lymphocyte Count 1.14 X10^3/uL (0.83-4.51); Absolute Neutrophil Count 7.2 X10^3/uL (2.0-7.7); Basophil# 0.07 X10^3/uL; Basophil% 0.7 % (0-1); Eosinophil# 0.15 X10^3/uL; Eosinophils% 1.6 % (0-5); Hematocrit 41.2 % (40-54); Lymphocyte # 1.14 X10^3/ul (4.0); Lymphocyte % 12.1 % (19-41); Mean Corp Hgb Conc 31.6 g/dL (32-36); Mean Corpuscular Hgb 28.8 pg (27.0-32.0); Mean Corpuscular Volume 91.4 fL (80-94); Mean Platelet Vol. 10.3 fl (6.2-12.0); Monocyte# 0.84 X10^3/uL; Monocyte% 8.9 % (0-10); NRBC Flagged by Analyzer 0 % (0-5); Neutrophil # 7.23 X10^3/uL (2.7-7.7); Neutrophil % 76.4 % (47-70); Platelet Count 305 K/mm3 (150-450); RBC Distribution Width CV 16.8 % (11.6-14.6); RBC Distribution Width SD 55.9 fl (35.1-43.9); Red Blood Count 4.51 M/mm3 (4.6-6.2); White Blood Count 9.5 K/mm3 (4.4-11.0)
[2019-04-09 17:45] LABS: Vitamin D,25 Hydroxy 51.7 ng/mL (29.95-100.01)
[2019-04-09 18:00] LABS: ALB/GLOB Ratio 0.7 RATIO (0.9-2.4); AST(SGOT) 30 U/L (15-37); Alanine Aminotransfer ALT/SGPT 40 U/L (16-61); Albumin, Serum 3.1 g/dL (3.2-5.0); Alkaline Phosphatase 80 U/L (45-117); Anion Gap 9 (5-15); BUN 33 mg/dL (7-18); BUN/Creat Ratio 16.6 RATIO (10-20); Calcium,Total 8.3 mg/dL (8.5-10.1); Chloride 91 mmol/L (98-107); Cholesterol 145 mg/dL (200); Creatinine, Serum 1.99 mg/dL (0.70-1.30); EST Glomerular Filtration Rate 36 mL/min (>60); Est Glom Filt Rate - Afr Amer 43 mL/min (>60); Estimated Creatinine Clearance 37.19 ml/min; Globulin 4.4 g/dL (2.2-4.2); Glucose 311 mg/dL (74-106); High Density Lipoprotein 32 mg/dL; Potassium 3.9 mmol/L (3.5-5.1); Protein, Total 7.5 g/dL (6.4-8.2); Sodium Level 136 mmol/L (136-145); Thyroid Stim Hormone (TSH) 6.12 uIU/mL (0.358-3.74); Triglycerides 231 mg/dL; Very Low Density Lipoprotein 46 mg/dL (5-40)
== END 2019-04-10 23:59 ==
LOC: WC 15:30
PROVIDERS: Family Provider Family Medicine Geriatric Medicine; PCP Family Medicine Geriatric Medicine; Visit Provider Podiatrist
DX: E11.621 Type 2 diabetes mellitus with foot ulcer (principal); E11.622 Type 2 diabetes mellitus with other skin ulcer; L97.512 Non-pressure chronic ulcer of other part of right foot with fat layer exposed; E11.42 Type 2 diabetes mellitus with diabetic polyneuropathy; I87.2 Venous insufficiency (chronic) (peripheral); R60.0 Localized edema; L97.812 Non-pressure chronic ulcer of other part of right lower leg with fat layer exposed; L84 Corns and callosities; E55.9 Vitamin D deficiency, unspecified; E78.5 Hyperlipidemia, unspecified; L97.822 Non-pressure chronic ulcer of other part of left lower leg with fat layer exposed; E11.51 Type 2 diabetes mellitus with diabetic peripheral angiopathy without gangrene; Z91.19 Patient's noncompliance with other medical treatment and regimen; I11.0 Hypertensive heart disease with heart failure; I50.9 Heart failure, unspecified
CPT/HCPCS: 11042; 11045; 36415; 80053; 80061; 82306; 84443; 85025

== ENCOUNTER 2019-04-11 14:58 | Emergency (ER) | payer MEDICARE, MEDICAID, SELFPAY ==
[2019-04-02 15:18] VITALS: BMI 32.5
[2019-04-11 15:01] VITALS: BP 124/63; PULSE 58; RESP 16; TEMP 36.1; O2SAT 95; BMI 40.8
[2019-04-11 15:10] VITALS: BP 124/63; PULSE 61; RESP 16; O2SAT 98
[2019-04-11] MEDS: Dextrose 50%-Water 25 GM/50 ML DISP.SYRIN IV (15:15)
[2019-04-11] MEDS: Dextrose 10%-Water 250 ML IV.SOLN. IV (15:15)
[2019-04-11 15:36] LABS: Bedside Glucose 155 mg/dL (70-110)
[2019-04-11 15:50] LABS: Bedside Glucose 190 mg/dL (70-110)
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
[2019-04-11 16:35] LABS: Bacteria 0 SEEN /hpf (None Seen); Mucous, Urine 0 SEEN /hpf (<or=2+); Squamous Epithelial Cells - UA 0 SEEN /hpf (0-5)
[2019-04-11 16:36] LABS: Color, Urine Straw (Yellow); Glucose, Dipstick 1000 mg/dl (Normal); Ketone-Dipstick Negative (Negative); Leukocyte Esterase-Dipstick Negative /ul (Negative); Nitrite-Dipstick Negative (Negative); Occult Blood-Urine Negative /ul (Negative); Protein-Dipstick Negative (Negative); Specific Gravity, Urine 1.015 (1.002-1.030); Urine Bilirubin Dipstick Negative (Negative); Urine Clarity Clear (Clear); Urine Urobilinogen Normal (Normal)
--- NOTE | 2019-04-11 16:39 | ED.RN ---
potassium 2.[address] lab[address] dr villalta aware
[2019-04-11 16:40] LABS: Anion Gap 8 (5-15); BUN 32 mg/dL (7-18); BUN/Creat Ratio 18.8 RATIO (10-20); Calcium,Total 8.7 mg/dL (8.5-10.1); Chloride 99 mmol/L (98-107); EST Glomerular Filtration Rate 43 mL/min (>60); Est Glom Filt Rate - Afr Amer 52 mL/min (>60); Estimated Creatinine Clearance 40.79 ml/min; Glucose 168 mg/dL (74-106); Potassium 2.3 mmol/L (3.5-5.1); Sodium Level 140 mmol/L (136-145)
[2019-04-11 16:42] VITALS: PULSE 95; RESP 12; O2SAT 96
[2019-04-11 16:44] LABS: Red Blood Cells-Urine 0-5 SEEN /hpf (0-5)
[2019-04-11 16:45] LABS: White Blood Cells 0-5 SEEN /hpf (0-5)
[2019-04-11 16:48] LABS: Absolute Lymphocyte Count 1.27 X10^3/uL (0.83-4.51); Absolute Neutrophil Count 8.7 X10^3/uL (2.0-7.7); Basophil# 0.07 X10^3/uL; Basophil% 0.6 % (0-1); Eosinophil# 0.16 X10^3/uL; Eosinophils% 1.4 % (0-5); Hematocrit 44.6 % (40-54); Hemoglobin 14.3 g/dL (13.0-16.5); Lymphocyte # 1.27 X10^3/ul (4.0); Lymphocyte % 11.3 % (19-41); Mean Corp Hgb Conc 32.1 g/dL (32-36); Mean Corpuscular Hgb 29.4 pg (27.0-32.0); Mean Corpuscular Volume 91.6 fL (80-94); Monocyte# 0.96 X10^3/uL; Monocyte% 8.6 % (0-10); NRBC Flagged by Analyzer 0 % (0-5); Neutrophil % 77.7 % (47-70); Platelet Count 361 K/mm3 (150-450); RBC Distribution Width CV 16.4 % (11.6-14.6); RBC Distribution Width SD 55.4 fl (35.1-43.9); Red Blood Count 4.87 M/mm3 (4.6-6.2); White Blood Count 11.2 K/mm3 (4.4-11.0)
[2019-04-11 17:04] VITALS: PULSE 68; RESP 17; O2SAT 99
[2019-04-11 17:15] LABS: Bedside Glucose 194 mg/dL (70-110)
[2019-04-11] MEDS: Potassium Chloride 10mEq/100mL 10 MEQ/100 ML IV.SOLN. 100 MEQ IV BOLUS (17:23)
[2019-04-11 18:48] VITALS: BP 154/80; PULSE 77; RESP 14; O2SAT 97
[2019-04-11 19:00] LABS: Bedside Glucose 170 mg/dL (70-110)
--- NOTE | 2019-04-11 19:22 | ED.RN ---
kathy called for patient. 30 min eta. pt was placed in wheelchair in waiting room. internet sales consultant blaise. tomas [place] rn [phone]
[2019-04-17 17:15] LABS: Bedside Glucose 14 mg/dL (70-110)
== END 2019-04-11 19:10 | disposition home or self-care (01) ==
PROVIDERS: Emergency Provider Emergency Medicine; Family Provider Family Medicine Geriatric Medicine; PCP Family Medicine Geriatric Medicine
DX: E11.649 Type 2 diabetes mellitus with hypoglycemia without coma (principal); E87.6 Hypokalemia; I11.0 Hypertensive heart disease with heart failure; I50.9 Heart failure, unspecified; K21.9 Gastro-esophageal reflux disease without esophagitis; E66.9 Obesity, unspecified; Z95.1 Presence of aortocoronary bypass graft; Z79.4 Long term (current) use of insulin; Z79.02 Long term (current) use of antithrombotics/antiplatelets; Z79.899 Other long term (current) drug therapy
CPT/HCPCS: 80048; 81001; 82962; 85025; 96365; 96375; 99284; J7030; A4216; J1610

== ENCOUNTER 2019-04-30 10:15 | Outpatient (RCR) | payer MEDICARE, MEDICAID, SELFPAY ==
[2019-04-02 15:18] VITALS: BMI 32.5
[2019-04-11 01:13] VITALS: BP 125/57; PULSE 94; RESP 18; TEMP 35.9
[2019-04-16 10:06] VITALS: BP 139/77; PULSE 88; RESP 16; TEMP 35.9; BMI 40.8
--- NOTE | 2019-04-16 11:26 | PN.PCM_ITS ---
(1) Ulcer of right lower extremity with fat layer exposed Status: Acute Current Visit: Yes Code(s): L97.912 - Non-pressure chronic ulcer of unspecified part of right lower leg with fat layer exposed (2) Ulcer of right foot with fat layer exposed Status: Chronic Current Visit: Yes Code(s): L97.512 - Non-pressure chronic ulcer of other part of right foot with fat layer exposed (3) Type 2 diabetes mellitus with diabetic polyneuropathy Status: Chronic Current Visit: Yes Qualifiers: Code(s): E11.42 - Type 2 diabetes mellitus with diabetic polyneuropathy (4) Venous insufficiency (chronic) (peripheral) Status: Chronic Current Visit: Yes Code(s): I87.2 - Venous insufficiency (chronic) (peripheral) (5) Other specified peripheral vascular diseases Status: Chronic Current Visit: Yes Code(s): I73.89 - Other specified peripheral vascular diseases (6) Ulcer of left lower extremity with fat layer exposed Status: Resolved Current Visit: Yes Code(s): L97.922 - Non-pressure chronic ulcer of unspecified part of left lower leg with fat layer exposed Type of Wound Date of Service: 04/16/19 Chief Complaint: Right leg ulcer. Right foot ulcer. Left foot callus. left leg ulcer History of Wound: This 69-year-old male who presents to the wound healing center today with complaint of right leg and foot ulcers with chronic bilateral lower extremity swelling. He denies fever, chill, nausea, vomiting. He denies redness or odor. He admits he has not been wearing his compression dressing or offloading surgical shoes. He takes Glucerna nutritional supplement. He is not aware of any new drainage or ulcers at this time. It is noted he has had difficulty controlling his blood sugars lately with episodes of hyperglycemia. He did also have a very dangerous encounter with hypoglycemia in which he was taken to the emergency room and stabilized since this past week. He continues work with his primary care physician and updating his medications. Progress of Wound: right leg ulcer stable. third and second toe ulcers on right foot stable. left foot ulcer healed. left leg ulcer healed - Physical Exam Vital Signs Temp Pulse Resp BP 96.6 F L 88 16 139/77 H 04/16/19 10:06 04/16/19 10:06 04/16/19 10:06 04/16/19 10:06 General: Alert, Oriented x3, Cooperative, No apparent distress HEENT: Atraumatic Extremities: No cyanosis, Capillary Refill Less than 3 Seconds, No Calf Tenderness - Negative Rashad and Tenorio signs bilateral . Left transmetatarsal amputation. Dorsal contraction lesser toes right, Diminished Peripheral Pulses, Edema Skin: Ulcer/ Wound - No purulence, erythema, streaking, odor, infection bilateral. There is full epithelialization noted to the entire left lower extremity and the previous ulcer sites are healed. On the right side there is no deep tissue exposed necrosis or infection noted. There is granular healthy base to the right leg ulcer site and there is no longer any blister formation. Hyperpigmentation of the leg is noted Wound Measurements and Assessment WC - Nurse 1 - General Ulcer Measurement Start: 04/16/19 10:06 Freq: Status: Active Protocol: Activity Type Activity Date Activity User E-Sign Co-Sign Detail Recorded Client Recorded Date Recorded By Document 04/16/19 10:06 [facility] [id number] 04/16/19 10:28 [facility] 04/16/19 10:06 Wound Center Nurse 1 [Ulcer Assessment] #33- R REHMAN CLUSTER -Combined with other wound Yes -Combined with (Name of Wound-Exactly #28- R MEDIAL as it is documented) LEG -Current Size (cm) - Length 15 -Current Size (cm) - Width 13.2 -Current Size (cm) - Depth 0.1 -Total Square Cm 198.0 -Date of Last Picture (Recall this 04/16/19 field) -Photo Taken Yes -Epithelialization None Present -Tunneling No -Undermining/Tunneling No -Circular Undermining No -Exudate Amt Large -Exudate Type Serosanguineous -Wound Margin Distinct, Outline Attached -Granulation Amt Medium (34-66%) -Granulation Quality Red -Slough/Fibrin Yes -Necrosis Amt Medium (34-66%) -Necrotic Tissue Type Adherent Slough -Texture (Maggy-wound Skin Appearance) Assessed, Scarring -Moisture (Maggy-wound Skin Appearance Assessed, ) Maceration -Color (Maggy-wound Skin Appearance) Erythema, Mottled -Temperature (Maggy-wound Skin No Abnormality Appearance) (Pt Warm) -Tenderness on Palpation (Maggy-wound No Skin Appearance) -Ulcer Cleansing SOAP AND WATER -Foul Odor after Cleansing No -Anesthetic Used 4% Lidocaine Solution #32- R MED ANKLE -Combined with other wound No -Current Size (cm) - Length 4 -Current Size (cm) - Width 4.2 -Current Size (cm) - Depth 0.1 -Total Square Cm 16.8 -Date of Last Picture (Recall this 04/16/19 field) -Photo Taken Yes -Epithelialization None Present -Tunneling No -Undermining/Tunneling No -Circular Undermining No -Exudate Amt Small -Exudate Type Serosanguineous -Wound Margin Distinct, Outline Attached -Granulation Amt Medium (34-66%) -Granulation Quality Red -Slough/Fibrin Yes -Necrosis Amt Medium (34-66%) -Necrotic Tissue Type Adherent Slough -Texture (Maggy-wound Skin Appearance) Assessed, Scarring -Moisture (Maggy-wound Skin Appearance Assessed, ) Maceration -Color (Maggy-wound Skin Appearance) Assessed, Erythema,Palor -Temperature (Maggy-wound Skin No Abnormality Appearance) (Pt Warm) -Tenderness on Palpation (Maggy-wound No Skin Appearance) -Ulcer Cleansing SOAP AND WATER -Foul Odor after Cleansing No -Anesthetic Used 4% Lidocaine Solution #31- R 2ND TOE -Combined with other wound No -Current Size (cm) - Length 4 -Current Size (cm) - Width 2.8 -Current Size (cm) - Depth 0.1 -Total Square Cm 11.2 -Date of Last Picture (Recall this 04/16/19 field) -Photo Taken No -Epithelialization None Present -Tunneling No -Undermining/Tunneling No -Circular Undermining No -Exudate Amt Medium -Exudate Type Serosanguineous -Wound Margin Distinct, Outline Attached -Granulation Amt Medium (34-66%) -Granulation Quality Red -Slough/Fibrin Yes -Necrosis Amt Medium (34-66%) -Necrotic Tissue Type Adherent Slough -Texture (Maggy-wound Skin Appearance) Assessed, Scarring -Moisture (Maggy-wound Skin Appearance Assessed, ) Maceration -Color (Maggy-wound Skin Appearance) Assessed, Erythema,Palor -Temperature (Maggy-wound Skin No Abnormality Appearance) (Pt Warm) -Tenderness on Palpation (Maggy-wound No Skin Appearance) -Ulcer Cleansing SOAP AND WATER -Foul Odor after Cleansing No -Anesthetic Used 4% Lidocaine Solution #30 left plantar -Combined with other wound No -Date of Last Picture (Recall this 04/16/19 field) -Photo Taken Yes -Epithelialization None Present -Tunneling No -Undermining/Tunneling No -Circular Undermining No -Exudate Amt None Present -Wound Margin Flat & Intact -Granulation Amt None Present (0 %) -Necrosis Amt None Present (0 %) -Texture (Maggy-wound Skin Appearance) Callus -Moisture (Maggy-wound Skin Appearance Dry/Scaly ) -Color (Maggy-wound Skin Appearance) Assessed -Temperature (Maggy-wound Skin No Abnormality Appearance) (Pt Warm) -Tenderness on Palpation (Maggy-wound No Skin Appearance) -Ulcer Cleansing SOAP WTAER -Foul Odor after Cleansing No -Anesthetic Used 4% Lidocaine Solution #29 right 3rd toe -Combined with other wound No -Current Size (cm) - Length 0.1 -Current Size (cm) - Width 0.1 -Current Size (cm) - Depth 0.1 -Total Square Cm 0.01 -Date of Last Picture (Recall this 04/16/19 field) -Photo Taken Yes -Epithelialization None Present -Tunneling No -Undermining/Tunneling No -Circular Undermining No -Exudate Amt Small -Exudate Type Serosanguineous -Wound Margin Distinct, Outline Attached -Granulation Amt None Present (0 %) -Slough/Fibrin Yes -Necrosis Amt Large (67-100%) -Necrotic Tissue Type Eschar -Texture (Maggy-wound Skin Appearance) Assessed, Scarring -Moisture (Maggy-wound Skin Appearance Assessed ) -Temperature (Maggy-wound Skin No Abnormality Appearance) (Pt Warm) -Tenderness on Palpation (Maggy-wound No Skin Appearance) -Ulcer Cleansing soap and water -Foul Odor after Cleansing No -Anesthetic Used 4% Lidocaine Solution #28 right medial lower leg -Combined with other wound Yes -Combined with (Name of Wound-Exactly R REHMAN CLUSTER as it is documented) #33 -Date of Last Picture (Recall this 04/16/19 field) -Photo Taken Yes -Epithelialization None Present -Tunneling No -Undermining/Tunneling No -Circular Undermining No -Exudate Amt Large -Exudate Type Serosanguineous -Wound Margin Distinct, Outline Attached -Granulation Amt Medium (34-66%) -Granulation Quality Red -Slough/Fibrin Yes -Necrosis Amt Medium (34-66%) -Necrotic Tissue Type Adherent Slough -Texture (Maggy-wound Skin Appearance) Assessed, Scarring -Moisture (Maggy-wound Skin Appearance Assessed, ) Maceration -Color (Maggy-wound Skin Appearance) Assessed, Erythema,Palor -Temperature (Maggy-wound Skin No Abnormality Appearance) (Pt Warm) -Tenderness on Palpation (Maggy-wound Yes Skin Appearance) -Ulcer Cleansing soap and water -Foul Odor after Cleansing No -Anesthetic Used 4% Lidocaine Solution [Edema Assessment] -Lower Limb Edema Present Yes -Right Calf (cm) 38.5 -Right Ankle (cm) 22.5 -Left Calf (cm) 40.7 -Left Ankle (cm) 22.5 WC - Nurse 2 - General Ulcer CM Notes Start: 04/16/19 10:06 Freq: Status: Active Protocol: Activity Type Activity Date Activity User E-Sign Co-Sign Detail Recorded Client Recorded Date Recorded By Document 04/16/19 10:49 JOE [id number] 04/16/19 10:53 JOE 04/16/19 10:49 Wound Center Nurse 2 [Procedure/Treatment] #33- R REHMAN CLUSTER -Time 10:52 -Correct Patient Yes -Correct Side, Site, Position Yes -Correct Procedure Yes -Procedure Performed Yes -Type of Procedure Debridement -Clinical Debridement Subcutaneous -Post Debridement Size (cm) - Length 15.1 -Post Debridement Size (cm) - Width 13.3 -Post Debridement Size (cm) - Depth 0.1 -Total Square Cm 200.83 -Wound/Ulcer Outcome Not Healed -Ulcer Cleansing Rinsed/ Irrigated with Saline -Foul Odor after Cleansing No -Bioengineered Tissue No -Bleeding Controlled with Pressure -Offloading No -Treatment Response Procedure Tolerated Well #32- R MED ANKLE -Time 10:52 -Correct Patient Yes -Correct Side, Site, Position Yes -Correct Procedure Yes -Procedure Performed Yes -Type of Procedure Debridement -Clinical Debridement Subcutaneous -Post Debridement Size (cm) - Length 4.1 -Post Debridement Size (cm) - Width 4.2 -Post Debridement Size (cm) - Depth 0.1 -Total Square Cm 17.22 -Wound/Ulcer Outcome Not Healed -Ulcer Cleansing Rinsed/ Irrigated with Saline -Foul Odor after Cleansing No -Bioengineered Tissue No -Bleeding Controlled with Pressure -Offloading No -Treatment Response Procedure Tolerated Well #31- R 2ND TOE -Time 10:49 -Correct Patient Yes -Correct Side, Site, Position Yes -Correct Procedure Yes -Procedure Performed Yes -Type of Procedure Debridement -Clinical Debridement Subcutaneous -Post Debridement Size (cm) - Length 4.1 -Post Debridement Size (cm) - Width 2.8 -Post Debridement Size (cm) - Depth 0.1 -Total Square Cm 11.48 -Wound/Ulcer Outcome Not Healed -Ulcer Cleansing Rinsed/ Irrigated with Saline -Foul Odor after Cleansing No -Bioengineered Tissue No -Bleeding Controlled with Pressure -Offloading Yes -Type of Offloading Surgical Shoe -Treatment Response Procedure Tolerated Well #30 left plantar -Correct Patient No -Correct Side, Site, Position No -Correct Procedure No -Procedure Performed No -Post Debridement Size (cm) - Length 0 -Post Debridement Size (cm) - Width 0 -Post Debridement Size (cm) - Depth 0 -Total Square Cm 0 -Wound/Ulcer Outcome Healed- Epithelialized -Ulcer Cleansing Rinsed/ Irrigated with Saline -Foul Odor after Cleansing No -Bioengineered Tissue No #29 right 3rd toe -Time 10:51 -Correct Patient Yes -Correct Side, Site, Position Yes -Correct Procedure Yes -Procedure Performed Yes -Type of Procedure Debridement -Clinical Debridement Subcutaneous -Post Debridement Size (cm) - Length 0.4 -Post Debridement Size (cm) - Width 0.2 -Post Debridement Size (cm) - Depth 0.1 -Total Square Cm 0.08 -Wound/Ulcer Outcome Not Healed -Ulcer Cleansing Rinsed/ Irrigated with Saline -Foul Odor after Cleansing No -Bioengineered Tissue No -Bleeding Controlled with Pressure -Offloading No -Treatment Response Procedure Tolerated Well [See Physician Procedure note for Specifics] Pain Scale: 0-10 Numeric [Pain] -Is Patient Pain Free? Yes Musculoskeletal: No Tenderness to Palpation of Joints or Extremities, Muscle Wasting Neurological: - - Lack of normal epicritic sensation consistent with neuropathy Psych/Mental Status: Normal Affect, Appropriate Debridement Note Post-Debridement Measurements/Treatment WC - Nurse 2 - General Ulcer CM Notes Start: 04/16/19 10:06 Freq: Status: Active Protocol: Activity Type Activity Date Activity User E-Sign Co-Sign Detail Recorded Client Recorded Date Recorded By Document 04/16/19 10:49 JOE [id number] 04/16/19 10:53 JF 04/16/19 10:49 Wound Center Nurse 2 #33- R REHMAN CLUSTER -Time 10:52 -Correct Patient Yes -Correct Side, Site, Position Yes -Correct Procedure Yes -Procedure Performed Yes -Type of Procedure Debridement -Clinical Debridement Subcutaneous -Post Debridement Size (cm) - Length 15.1 -Post Debridement Size (cm) - Width 13.3 -Post Debridement Size (cm) - Depth 0.1 -Total Square Cm 200.83 -Wound/Ulcer Outcome Not Healed -Ulcer Cleansing Rinsed/ Irrigated with Saline -Foul Odor after Cleansing No -Bioengineered Tissue No -Bleeding Controlled with Pressure -Offloading No -Treatment Response Procedure Tolerated Well #32- R MED ANKLE -Time 10:52 -Correct Patient Yes -Correct Side, Site, Position Yes -Correct Procedure Yes -Procedure Performed Yes -Type of Procedure Debridement -Clinical Debridement Subcutaneous -Post Debridement Size (cm) - Length 4.1 -Post Debridement Size (cm) - Width 4.2 -Post Debridement Size (cm) - Depth 0.1 -Total Square Cm 17.22 -Wound/Ulcer Outcome Not Healed -Ulcer Cleansing Rinsed/ Irrigated with Saline -Foul Odor after Cleansing No -Bioengineered Tissue No -Bleeding Controlled with Pressure -Offloading No -Treatment Response Procedure Tolerated Well #31- R 2ND TOE -Time 10:49 -Correct Patient Yes -Correct Side, Site, Position Yes -Correct Procedure Yes -Procedure Performed Yes -Type of Procedure Debridement -Clinical Debridement Subcutaneous -Post Debridement Size (cm) - Length 4.1 -Post Debridement Size (cm) - Width 2.8 -Post Debridement Size (cm) - Depth 0.1 -Total Square Cm 11.48 -Wound/Ulcer Outcome Not Healed -Ulcer Cleansing Rinsed/ Irrigated with Saline -Foul Odor after Cleansing No -Bioengineered Tissue No -Bleeding Controlled with Pressure -Offloading Yes -Type of Offloading Surgical Shoe -Treatment Response Procedure Tolerated Well #30 left plantar -Correct Patient No -Correct Side, Site, Position No -Correct Procedure No -Procedure Performed No -Post Debridement Size (cm) - Length 0 -Post Debridement Size (cm) - Width 0 -Post Debridement Size (cm) - Depth 0 -Total Square Cm 0 -Wound/Ulcer Outcome Healed- Epithelialized -Ulcer Cleansing Rinsed/ Irrigated with Saline -Foul Odor after Cleansing No -Bioengineered Tissue No #29 right 3rd toe -Time 10:51 -Correct Patient Yes -Correct Side, Site, Position Yes -Correct Procedure Yes -Procedure Performed Yes -Type of Procedure Debridement -Clinical Debridement Subcutaneous -Post Debridement Size (cm) - Length 0.4 -Post Debridement Size (cm) - Width 0.2 -Post Debridement Size (cm) - Depth 0.1 -Total Square Cm 0.08 -Wound/Ulcer Outcome Not Healed -Ulcer Cleansing Rinsed/ Irrigated with Saline -Foul Odor after Cleansing No -Bioengineered Tissue No -Bleeding Controlled with Pressure -Offloading No -Treatment Response Procedure Tolerated Well Pain Scale: 0-10 Numeric Is Patient Pain Free? Yes Wound debrided: dorsal 2nd toe Laterality: Right Wound Grade/Stage: grade 1 Type of Debridement: Excisional debridement Anesthesia Used: 5% Lidocaine Gel Depth: in the subcutaneous layer Percentage of wound debrided: 100 Instrument Used: #15 blade Tissue Removed: fibrous, devitalized subcutaneous, biofilm, slough Severity: Fat Layer Exposed Amount of bleeding with debridement: Mild Bleeding Controlled with: Pressure Patient tolerated procedure well - Additional Wound Wound debrided: dorsal 3 toe Laterality: Right Wound Grade/Stage: grade 1 Type of Debridement: Excisional debridement Anesthesia Used: 5% Lidocaine Gel Depth: in the subcutaneous layer Percentage of wound debrided: 100 Instrument Used: #15 blade Tissue Removed: fibrous, devitalized subcutaneous, biofilm, slough Severity: Fat Layer Exposed Amount of bleeding with debridement: Mild Bleeding Controlled with: Pressure Patient tolerated procedure: Patient tolerated procedure well - Additional Wound Wound debrided: anterior leg cluster Laterality: Right Wound Grade/Stage: grade 1 Type of Debridement: Excisional debridement Anesthesia Used: 5% Lidocaine Gel Depth: in the subcutaneous layer Percentage of wound debrided: 100 Instrument Used: #15 blade Tissue Removed: fibrous, devitalized subcutaneous, biofilm, slough Severity: Fat Layer Exposed Amount of bleeding with debridement: Mild Bleeding Controlled with: Pressure Patient tolerated procedure: Patient tolerated procedure well - Additional Wound Wound debrided: medial lower leg Laterality: Right Wound Grade/Stage: grade 1 Type of Debridement: Excisional debridement Anesthesia Used: 5% Lidocaine Gel Depth: in the subcutaneous layer Percentage of wound debrided: 100 Instrument Used: #15 blade Tissue Removed: fibrous, devitalized subcutaneous, biofilm, slough Severity: Fat Layer Exposed Amount of bleeding with debridement: Mild Bleeding Controlled with: Pressure Patient tolerated procedure: Patient tolerated procedure well Assessment/Plan Active Problems (Last Reviewed 12/31/18 @ 09:10 by Alma Garcia) Ulcer of right lower extremity with fat layer exposed (Acute) Ulcer of right foot with fat layer exposed (Chronic) Type 2 diabetes mellitus with diabetic polyneuropathy (Chronic) Venous insufficiency (chronic) (peripheral) (Chronic) Other specified peripheral vascular diseases (Chronic) Assessment: Right fourth toe ulcer healed today. Right third toe ulcer with fat layer exposed with no infection, hardy grade 1. Right second toe ulcer with fat layer exposed with no infection, hardy grade 1. Right leg ulcers with fat layer exposed, no infection, hardy grade 1. left foot ulcer healed today. left leg ulcer healed today. Venous insufficiency and chronic lower extremity edema also complicated with congestive heart failure. peripheral vascular disease with recent intervention 2018. diabetes with neuropathy. malnutrition. non compliance history Plan: The patient was seen and examined at the wound center today and was updated on the plan of care. A subcutaneous debridement was performed today to the right foot (toes) and right leg. To change dressing daily with Zimbrael Ag. To continue Lac-Hydrin application to adjacent dry skin avoiding direct wound application. To keep pressure off the ulcer sites to optimize healing; he has surgical shoes. To wear compression Tubigrip garments. To elevate legs at rest to avoid idle standing or sitting. To continue with nutritional supplementation and proper glycemic control to optimize healing. He was reassured no local signs of infection are noted today. To monitor closely. Instructed to follow-up with PCP and to maintain Operations Coordinator for improved glucose control. His recent emergency room visit is noted and he was educated on the severity of the situation. He had prior vascular surgery intervention with Dr. Redding. There are not any signs of critical limb ischemia at this time. Last noninvasive vascular studies were performed in November 2018 with thigh and monophasic waveforms at the ankle level, diminished ankle-brachial indices. This is consistent with moderate occlusive arterial vessel disease and also severe alteration of and angiosomal distribution particularly on the right lower extremity. To follow-up with Dr. Redding as advised and scheduled. His recent lab work from 04/11/2018 was reviewed with white blood cell count of 11.2 and hemoglobin A1c from 11/2018 of 9.5%. I recommend an updated right foot x-ray today and order was provided. Patient will follow up at wound healing center in one week or sooner if needed. I answered all the questions.
--- NOTE | 2019-04-16 11:40 | RAD_ITS ---
STUDY: X-RAY - RIGHT FOOT CLINICAL: Male, 69 years old. Right foot ulcer TECHNIQUE: 3 view(s) of the foot. COMPARISON: Prior study of 06/07/2018 FINDINGS: Normal talus, calcaneus, and tarsal bones. Normal visualized subtalar, talonavicular, calcaneocuboid, tarsal and tarsometatarsal articulations. Status post indication changes of the fifth digital ray are noted through the mid shaft of the fifth metatarsal. Normal metatarsophalangeal joint of the great toe. Normal tibial and fibular sesamoid bones. Normal interphalangeal joint of the great toe. Normal phalanges of the great toe. Normal second through fifth metatarsophalangeal joints. Normal interphalangeal joints and phalanges of the lesser toes. Arterial calcifications are noted throughout the right foot. No soft tissue gas or radiopaque foreign bodies noted. 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 Arterial calcifications noted throughout the right foot. There is no radiographic evidence of osteomyelitis. No soft tissue gas is seen. Electronically Signed: Yuval Millre MD at 17:09 EST , Service support ,
[2019-04-16 17:35] LABS: Anion Gap 8 (5-15); BUN 41 mg/dL (7-18); BUN/Creat Ratio 22.2 RATIO (10-20); Calcium,Total 8.9 mg/dL (8.5-10.1); Chloride 93 mmol/L (98-107); Creatinine, Serum 1.85 mg/dL (0.70-1.30); EST Glomerular Filtration Rate 39 mL/min (>60); Est Glom Filt Rate - Afr Amer 47 mL/min (>60); Estimated Creatinine Clearance 40.01 ml/min; Glucose 396 mg/dL (74-106); Potassium 4.1 mmol/L (3.5-5.1); Sodium Level 129 mmol/L (136-145)
[2019-04-23 10:15] VITALS: BP 115/61; PULSE 90; RESP 20; TEMP 36.3; BMI 40.8
--- NOTE | 2019-04-23 11:33 | PCM.WC.PN ---
(1) Ulcer of right lower extremity with fat layer exposed Status: Chronic Current Visit: Yes Code(s): L97.912 - Non-pressure chronic ulcer of unspecified part of right lower leg with fat layer exposed (2) Ulcer of right foot with fat layer exposed Status: Chronic Current Visit: Yes Code(s): L97.512 - Non-pressure chronic ulcer of other part of right foot with fat layer exposed (3) Type 2 diabetes mellitus with diabetic polyneuropathy Status: Chronic Current Visit: Yes Qualifiers: Code(s): E11.42 - Type 2 diabetes mellitus with diabetic polyneuropathy (4) Venous insufficiency (chronic) (peripheral) Status: Chronic Current Visit: Yes Code(s): I87.2 - Venous insufficiency (chronic) (peripheral) (5) Other specified peripheral vascular diseases Status: Chronic Current Visit: Yes Code(s): I73.89 - Other specified peripheral vascular diseases (6) Ulcer of left lower extremity with fat layer exposed Status: Resolved Current Visit: Yes Code(s): L97.922 - Non-pressure chronic ulcer of unspecified part of left lower leg with fat layer exposed Type of Wound Date of Service: 04/23/19 Chief Complaint: Right leg ulcer. Right foot ulcer History of Wound: This 69-year-old male who presents to the wound healing center today with complaint of right leg and foot ulcers with chronic bilateral lower extremity swelling. He denies fever, chill, nausea, vomiting. He denies redness or odor. He admits he has not been wearing his compression dressing or offloading surgical shoes. He takes Glucerna nutritional supplement. He needs help at home including dressing care. He is not able to perform this safely on his own. Progress of Wound: right leg ulcer stable. third and second toe ulcers on right foot stable - Physical Exam Vital Signs Temp Pulse Resp BP 97.4 F L 90 20 H 115/61 04/23/19 10:15 04/23/19 10:15 04/23/19 10:15 04/23/19 10:15 General: Alert, Oriented x3, Cooperative, No apparent distress HEENT: Atraumatic Extremities: No cyanosis, No Calf Tenderness - negative tre and villagomez signs bilateral, Diminished Peripheral Pulses, Edema - mild to moderate bilateral lower extremities, - - left transmetatarsal amputation stump site noted-healed and no ulcers. right foot dorsal contraction of lesser digits noted Skin: Ulcer/ Wound - no purulence, no erythema, no streaking, no necrosis, no maceration, no acute signs of infection right lower extremity. the peripheral skin is hairless and atrophic. no deep tissue exposed Wound Measurements and Assessment WC - Nurse 1 - General Ulcer Measurement Start: 04/16/19 10:06 Freq: Status: Active Protocol: Activity Type Activity Date Activity User E-Sign Co-Sign Detail Recorded Client Recorded Date Recorded By Document 04/23/19 10:15 DL [id number] 04/23/19 10:29 DL 04/23/19 10:15 Wound Center Nurse 1 [Ulcer Assessment] #33- R REHMAN CLUSTER -Current Size (cm) - Length 15.3 -Current Size (cm) - Width 8.5 -Current Size (cm) - Depth 0.1 -Total Square Cm 130.05 -Photo Taken No -Exudate Amt Medium -Exudate Type Serosanguineous -Wound Margin Distinct, Outline Attached -Granulation Amt Medium (34-66%) -Granulation Quality Red -Necrosis Amt Medium (34-66%) -Necrotic Tissue Type Adherent Slough -Structure Exposed N/A -Texture (Maggy-wound Skin Appearance) Localized Edema ,Scarring -Moisture (Maggy-wound Skin Appearance Dry/Scaly ) -Color (Maggy-wound Skin Appearance) Erythema, Hemosiderin Staining -Temperature (Maggy-wound Skin No Abnormality Appearance) (Pt Warm) -Tenderness on Palpation (Maggy-wound No Skin Appearance) -Ulcer Cleansing Wound Cleanser -Foul Odor after Cleansing No -Anesthetic Used 4% Lidocaine Solution #32- R MED ANKLE -Current Size (cm) - Length 4 -Current Size (cm) - Width 1.9 -Current Size (cm) - Depth 0.2 -Total Square Cm 7.6 -Photo Taken No -Exudate Amt Small -Exudate Type Serosanguineous -Wound Margin Distinct, Outline Attached -Granulation Amt Medium (34-66%) -Granulation Quality Red -Necrosis Amt Medium (34-66%) -Necrotic Tissue Type Adherent Slough -Structure Exposed N/A -Texture (Maggy-wound Skin Appearance) Scarring -Moisture (Maggy-wound Skin Appearance Dry/Scaly ) -Color (Maggy-wound Skin Appearance) Erythema, Hemosiderin Staining -Temperature (Maggy-wound Skin No Abnormality Appearance) (Pt Warm) -Tenderness on Palpation (Maggy-wound No Skin Appearance) -Ulcer Cleansing Wound Cleanser -Foul Odor after Cleansing No -Anesthetic Used 4% Lidocaine Solution #31- R 2ND TOE -Current Size (cm) - Length 4.5 -Current Size (cm) - Width 2 -Current Size (cm) - Depth 0.1 -Total Square Cm 9.0 -Photo Taken No -Exudate Amt Small -Exudate Type Serosanguineous -Wound Margin Distinct, Outline Attached -Granulation Amt Medium (34-66%) -Granulation Quality [place] -Necrosis Amt Medium (34-66%) -Necrotic Tissue Type Adherent Slough -Structure Exposed N/A -Texture (Maggy-wound Skin Appearance) Localized Edema ,Scarring -Color (Maggy-wound Skin Appearance) Erythema, Hemosiderin Staining -Temperature (Maggy-wound Skin No Abnormality Appearance) (Pt Warm) -Tenderness on Palpation (Maggy-wound No Skin Appearance) -Ulcer Cleansing Wound Cleanser -Foul Odor after Cleansing No -Anesthetic Used 4% Lidocaine Solution #29 right 3rd toe -Current Size (cm) - Length 0.5 -Current Size (cm) - Width 0.5 -Current Size (cm) - Depth 0.1 -Total Square Cm 0.25 -Photo Taken No -Exudate Amt Small -Exudate Type Serosanguineous -Wound Margin Thickened -Granulation Amt Small (1-33%) -Granulation Quality [place] -Necrosis Amt Small (1-33%) -Necrotic Tissue Type Adherent Slough -Structure Exposed N/A -Texture (Maggy-wound Skin Appearance) Scarring -Moisture (Maggy-wound Skin Appearance Dry/Scaly ) -Color (Maggy-wound Skin Appearance) Hemosiderin Staining -Temperature (Maggy-wound Skin No Abnormality Appearance) (Pt Warm) -Tenderness on Palpation (Maggy-wound No Skin Appearance) -Ulcer Cleansing Wound Cleanser -Anesthetic Used 4% Lidocaine Solution [Edema Assessment] -Right Calf (cm) 42 -Right Ankle (cm) 22.4 -Left Calf (cm) 42.6 -Left Ankle (cm) 23.5 WC - Nurse 2 - General Ulcer CM Notes Start: 04/16/19 10:06 Freq: Status: Active Protocol: Activity Type Activity Date Activity User E-Sign Co-Sign Detail Recorded Client Recorded Date Recorded By Document 04/23/19 10:47 JOE [id number] 04/23/19 10:51 JOE 04/23/19 10:47 Wound Center Nurse 2 [Procedure/Treatment] #33- R REHMAN CLUSTER -Time 10:48 -Correct Patient Yes -Correct Side, Site, Position Yes -Correct Procedure Yes -Procedure Performed Yes -Type of Procedure Debridement -Clinical Debridement Subcutaneous -Post Debridement Size (cm) - Length 15.3 -Post Debridement Size (cm) - Width 8.6 -Post Debridement Size (cm) - Depth 0.1 -Total Square Cm 131.58 -Wound/Ulcer Outcome Not Healed -Ulcer Cleansing Rinsed/ Irrigated with Saline -Foul Odor after Cleansing No -Bioengineered Tissue No -Bleeding Controlled with Pressure -Offloading No -Treatment Response Procedure Tolerated Well #32- R MED ANKLE -Time 10:48 -Correct Patient Yes -Correct Side, Site, Position Yes -Correct Procedure Yes -Procedure Performed Yes -Type of Procedure Debridement -Clinical Debridement Subcutaneous -Post Debridement Size (cm) - Length 4 -Post Debridement Size (cm) - Width 2 -Post Debridement Size (cm) - Depth 0.2 -Total Square Cm 8 -Wound/Ulcer Outcome Not Healed -Ulcer Cleansing Rinsed/ Irrigated with Saline -Foul Odor after Cleansing No -Bioengineered Tissue No -Bleeding Controlled with Pressure -Offloading No -Treatment Response Procedure Tolerated Well #31- R 2ND TOE -Time 10:48 -Correct Patient Yes -Correct Side, Site, Position Yes -Correct Procedure Yes -Procedure Performed Yes -Type of Procedure Debridement -Clinical Debridement Subcutaneous -Post Debridement Size (cm) - Length 4.5 -Post Debridement Size (cm) - Width 2.1 -Post Debridement Size (cm) - Depth 0.1 -Total Square Cm 9.45 -Wound/Ulcer Outcome Not Healed -Ulcer Cleansing Rinsed/ Irrigated with Saline -Foul Odor after Cleansing No -Bioengineered Tissue No -Bleeding Controlled with Pressure -Offloading No -Treatment Response Procedure Tolerated Well #29 right 3rd toe -Time 10:48 -Correct Patient Yes -Correct Side, Site, Position Yes -Correct Procedure Yes -Procedure Performed Yes -Type of Procedure Debridement -Clinical Debridement Subcutaneous -Post Debridement Size (cm) - Length 0.6 -Post Debridement Size (cm) - Width 0.5 -Post Debridement Size (cm) - Depth 0.1 -Total Square Cm 0.30 -Wound/Ulcer Outcome Not Healed -Ulcer Cleansing Rinsed/ Irrigated with Saline -Foul Odor after Cleansing No -Bioengineered Tissue No -Bleeding Controlled with Pressure -Offloading No -Treatment Response Procedure Tolerated Well [See Physician Procedure note for Specifics] Pain Scale: 0-10 Numeric [Pain] -Is Patient Pain Free? Yes Musculoskeletal: No Tenderness to Palpation of Joints or Extremities, Muscle Wasting Neurological: - - lack of normal epicritic sensation is noted via light touch consistent with neuropathy Psych/Mental Status: Normal Affect, Appropriate Debridement Note Post-Debridement Measurements/Treatment WC - Nurse 2 - General Ulcer CM Notes Start: 04/16/19 10:06 Freq: Status: Active Protocol: Activity Type Activity Date Activity User E-Sign Co-Sign Detail Recorded Client Recorded Date Recorded By Document 04/16/19 10:49 [id number] 04/16/19 10:53 Document 04/23/19 10:47 [id number] 04/23/19 10:51 04/16/19 04/23/19 10:49 10:47 Wound Center Nurse 2 #33- R REHMAN CLUSTER -Time 10:52 10:48 -Correct Patient Yes Yes -Correct Side, Site, Position Yes Yes -Correct Procedure Yes Yes -Procedure Performed Yes Yes -Type of Procedure Debridement Debridement -Clinical Debridement Subcutaneous Subcutaneous -Post Debridement Size (cm) - Length 15.1 15.3 -Post Debridement Size (cm) - Width 13.3 8.6 -Post Debridement Size (cm) - Depth 0.1 0.1 -Total Square Cm 200.83 131.58 -Wound/Ulcer Outcome Not Healed Not Healed -Ulcer Cleansing Rinsed/ Rinsed/ Irrigated with Irrigated with Saline Saline -Foul Odor after Cleansing No No -Bioengineered Tissue No No -Bleeding Controlled with Pressure Pressure -Offloading No No -Treatment Response Procedure Procedure Tolerated Well Tolerated Well #32- R MED ANKLE -Time 10:52 10:48 -Correct Patient Yes Yes -Correct Side, Site, Position Yes Yes -Correct Procedure Yes Yes -Procedure Performed Yes Yes -Type of Procedure Debridement Debridement -Clinical Debridement Subcutaneous Subcutaneous -Post Debridement Size (cm) - Length 4.1 4 -Post Debridement Size (cm) - Width 4.2 2 -Post Debridement Size (cm) - Depth 0.1 0.2 -Total Square Cm 17.22 8 -Wound/Ulcer Outcome Not Healed Not Healed -Ulcer Cleansing Rinsed/ Rinsed/ Irrigated with Irrigated with Saline Saline -Foul Odor after Cleansing No No -Bioengineered Tissue No No -Bleeding Controlled with Pressure Pressure -Offloading No No -Treatment Response Procedure Procedure Tolerated Well Tolerated Well #31- R 2ND TOE -Time 10:49 10:48 -Correct Patient Yes Yes -Correct Side, Site, Position Yes Yes -Correct Procedure Yes Yes -Procedure Performed Yes Yes -Type of Procedure Debridement Debridement -Clinical Debridement Subcutaneous Subcutaneous -Post Debridement Size (cm) - Length 4.1 4.5 -Post Debridement Size (cm) - Width 2.8 2.1 -Post Debridement Size (cm) - Depth 0.1 0.1 -Total Square Cm 11.48 9.45 -Wound/Ulcer Outcome Not Healed Not Healed -Ulcer Cleansing Rinsed/ Rinsed/ Irrigated with Irrigated with Saline Saline -Foul Odor after Cleansing No No -Bioengineered Tissue No No -Bleeding Controlled with Pressure Pressure -Offloading Yes No -Type of Offloading Surgical Shoe -Treatment Response Procedure Procedure Tolerated Well Tolerated Well #30 left plantar -Correct Patient No -Correct Side, Site, Position No -Correct Procedure No -Procedure Performed No -Post Debridement Size (cm) - Length 0 -Post Debridement Size (cm) - Width 0 -Post Debridement Size (cm) - Depth 0 -Total Square Cm 0 -Wound/Ulcer Outcome Healed- Epithelialized -Ulcer Cleansing Rinsed/ Irrigated with Saline -Foul Odor after Cleansing No -Bioengineered Tissue No #29 right 3rd toe -Time 10:51 10:48 -Correct Patient Yes Yes -Correct Side, Site, Position Yes Yes -Correct Procedure Yes Yes -Procedure Performed Yes Yes -Type of Procedure Debridement Debridement -Clinical Debridement Subcutaneous Subcutaneous -Post Debridement Size (cm) - Length 0.4 0.6 -Post Debridement Size (cm) - Width 0.2 0.5 -Post Debridement Size (cm) - Depth 0.1 0.1 -Total Square Cm 0.08 0.30 -Wound/Ulcer Outcome Not Healed Not Healed -Ulcer Cleansing Rinsed/ Rinsed/ Irrigated with Irrigated with Saline Saline -Foul Odor after Cleansing No No -Bioengineered Tissue No No -Bleeding Controlled with Pressure Pressure -Offloading No No -Treatment Response Procedure Procedure Tolerated Well Tolerated Well Pain Scale: 0-10 Numeric Is Patient Pain Free? Yes Yes Wound debrided: anterior leg Laterality: Right Type of Debridement: Excisional debridement Anesthesia Used: 5% Lidocaine Gel Depth: in the subcutaneous layer Percentage of wound debrided: 100 Instrument Used: #15 blade Tissue Removed: fibrous, devitalized subcutaneous, biofilm, slough Severity: Fat Layer Exposed Amount of bleeding with debridement: Mild Bleeding Controlled with: Pressure Patient tolerated procedure well - Additional Wound Wound debrided: 2nd toe dorsal Laterality: Right Wound Grade/Stage: grade 1 Type of Debridement: Excisional debridement Anesthesia Used: 5% Lidocaine Gel Depth: in the subcutaneous layer Percentage of wound debrided: 100 Instrument Used: #15 blade Tissue Removed: fibrous, devitalized subcutaneous, biofilm, slough Severity: Fat Layer Exposed Amount of bleeding with debridement: Mild Bleeding Controlled with: Pressure Patient tolerated procedure: Patient tolerated procedure well - Additional Wound Wound debrided: dorsal 3rd toe Laterality: Right Wound Grade/Stage: grade 1 Type of Debridement: Excisional debridement Anesthesia Used: 5% Lidocaine Gel Depth: in the subcutaneous layer Percentage of wound debrided: 100 Instrument Used: #15 blade Tissue Removed: fibrous, devitalized subcutaneous, biofilm, slough Severity: Fat Layer Exposed Amount of bleeding with debridement: Mild Bleeding Controlled with: Pressure Patient tolerated procedure: Patient tolerated procedure well - Additional Wound Wound debrided: medial ankle Laterality: Right Wound Grade/Stage: grade 1 Type of Debridement: Excisional debridement Anesthesia Used: 5% Lidocaine Gel Depth: in the subcutaneous layer Percentage of wound debrided: 100 Instrument Used: #15 blade Tissue Removed: fibrous, devitalized subcutaneous, biofilm, slough Severity: Fat Layer Exposed Amount of bleeding with debridement: Mild Bleeding Controlled with: Pressure Patient tolerated procedure: Patient tolerated procedure well Assessment/Plan Clinical Impression(s) from Imaging Studies Foot X-Ray 04/16/19 11:40 IMPRESSION: 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 Arterial calcifications noted throughout the right foot. There is no radiographic evidence of osteomyelitis. No soft tissue gas is seen. Electronically Signed: Yuval Miller MD at 17:09 EST , Service support , Active Problems (Last Reviewed 12/31/18 @ 09:10 by Alma Garcia) Ulcer of right lower extremity with fat layer exposed (Chronic) Ulcer of right foot with fat layer exposed (Chronic) Type 2 diabetes mellitus with diabetic polyneuropathy (Chronic) Venous insufficiency (chronic) (peripheral) (Chronic) Other specified peripheral vascular diseases (Chronic) Assessment: Right third toe ulcer with fat layer exposed with no infection, hardy grade 1. Right second toe ulcer with fat layer exposed with no infection, hardy grade 1. Right leg ulcers with fat layer exposed, no infection, hardy grade 1. Venous insufficiency and chronic lower extremity edema also complicated with congestive heart failure. peripheral vascular disease with recent intervention 2018. diabetes with neuropathy. malnutrition. non compliance history Plan: The patient was seen and examined at the wound center today and was updated on the plan of care. A subcutaneous debridement was performed today to the right foot (toes) and right leg. To change dressing daily with Aquacel Ag. To continue Lac-Hydrin application to adjacent dry skin avoiding direct wound application. To keep pressure off the ulcer sites to optimize healing; he has surgical shoes. To wear compression Tubigrip garments. To elevate legs at rest to avoid idle standing or sitting. To continue with nutritional supplementation and proper glycemic control to optimize healing. He was reassured no local signs of infection are noted today. To monitor closely. 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 He had prior vascular surgery intervention with Dr. Redding. There are not any signs of critical limb ischemia at this time. Last noninvasive vascular studies were performed in November 2018 with thigh and monophasic waveforms at the ankle level, diminished ankle-brachial indices. This is consistent with moderate occlusive arterial vessel disease and also severe alteration of and angiosomal distribution particularly on the right lower extremity. To follow-up with Dr. Redding as advised and scheduled. He states he plans to proceed forward with this and needs to call to confirm his followup date. His recent lab work from 04/11/2018 was reviewed with white blood cell count of 11.2 and hemoglobin A1c from 11/2018 of 9.5%. I recommend an updated right foot x-ray today and order was provided. Home health is recommended to aid in dressing care that he is unable to perform on his own. He has struggled with this aspect of his care which compromises his healing potential. This service is medically necessary. This patient will follow up at wound healing center in one week or sooner if needed. I answered all the questions.
[2019-04-30 10:09] VITALS: BP 122/65; PULSE 81; RESP 18; TEMP 35.3; BMI 40.8
--- NOTE | 2019-04-30 12:04 | PCM.WC.PN ---
(1) Ulcer of right lower extremity with fat layer exposed Status: Chronic Current Visit: Yes Code(s): L97.912 - Non-pressure chronic ulcer of unspecified part of right lower leg with fat layer exposed (2) Ulcer of right foot with fat layer exposed Status: Chronic Current Visit: Yes Code(s): L97.512 - Non-pressure chronic ulcer of other part of right foot with fat layer exposed (3) Type 2 diabetes mellitus with diabetic polyneuropathy Status: Chronic Current Visit: Yes Qualifiers: Code(s): E11.42 - Type 2 diabetes mellitus with diabetic polyneuropathy (4) Venous insufficiency (chronic) (peripheral) Status: Chronic Current Visit: Yes Code(s): I87.2 - Venous insufficiency (chronic) (peripheral) (5) Other specified peripheral vascular diseases Status: Chronic Current Visit: Yes Code(s): I73.89 - Other specified peripheral vascular diseases (6) Callus of foot Status: Chronic Current Visit: Yes Code(s): L84 - Corns and callosities Type of Wound Date of Service: 04/30/19 Chief Complaint: Right leg ulcer. Right foot ulcer History of Wound: This 69-year-old male who presents to the wound healing center today with complaint of right leg and foot ulcers with chronic bilateral lower extremity swelling. He denies fever, chill, nausea, vomiting. He denies redness or odor. He tries to wear Tubigrip compression stockings. He takes Glucerna nutritional supplement. He assigned a new home health agent who is been coming to his home. He denies drainage on his left foot but request help trimming his callus today that he is unable to safely perform on his own. Progress of Wound: right leg ulcers stable. third and second toe ulcers on right foot stable - Physical Exam Vital Signs Temp Pulse Resp BP 95.5 F L 81 18 122/65 H 04/30/19 10:09 04/30/19 10:09 04/30/19 10:09 04/30/19 10:09 General: Alert, Oriented x3, Cooperative, No apparent distress Extremities: No cyanosis, Capillary Refill Less than 3 Seconds, No Calf Tenderness, Diminished Peripheral Pulses, Edema Skin: Ulcer/ Wound - No purulence, erythema, string, odor, infection. His skin is atrophic., - - There is a plantar left callus Wound Measurements and Assessment WC - Nurse 1 - General Ulcer Measurement Start: 04/16/19 10:06 Freq: Status: Active Protocol: Activity Type Activity Date Activity User E-Sign Co-Sign Detail Recorded Client Recorded Date Recorded By Document 04/30/19 10:09 AMITA [id number] 04/30/19 10:16 AMITA 04/30/19 10:09 Wound Center Nurse 1 [Ulcer Assessment] #33- R REHMAN CLUSTER -Combined with other wound No -Current Size (cm) - Length 12.5 -Current Size (cm) - Width 9.8 -Current Size (cm) - Depth 0.2 -Total Square Cm 122.50 -Photo Taken No -Epithelialization Small 1-33% -Tunneling No -Undermining/Tunneling No -Circular Undermining No -Exudate Amt Medium -Exudate Type Serosanguineous -Wound Margin Distinct, Outline Attached -Granulation Amt Large (67-100%) -Granulation Quality Graball -Slough/Fibrin Yes -Necrosis Amt None Present (0 %) -Necrotic Tissue Type Adherent Slough -Structure Exposed None/Limited to Skin Breakdown -Texture (Maggy-wound Skin Appearance) Friable, Scarring -Moisture (Maggy-wound Skin Appearance No Abnormality, ) Assessed -Color (Maggy-wound Skin Appearance) No Abnormality, Assessed -Temperature (Maggy-wound Skin No Abnormality Appearance) (Pt Warm) -Tenderness on Palpation (Maggy-wound No Skin Appearance) -Ulcer Cleansing Wound Cleanser -Foul Odor after Cleansing No -Anesthetic Used 4% Lidocaine Solution #32- R MED ANKLE -Combined with other wound No -Current Size (cm) - Length 3.3 -Current Size (cm) - Width 3.1 -Current Size (cm) - Depth 0.1 -Total Square Cm 10.23 -Photo Taken No -Epithelialization None Present -Tunneling No -Undermining/Tunneling No -Circular Undermining No -Exudate Amt Medium -Exudate Type Serosanguineous -Wound Margin Distinct, Outline Attached -Granulation Amt Large (67-100%) -Granulation Quality Graball -Slough/Fibrin Yes -Necrosis Amt None Present (0 %) -Necrotic Tissue Type Adherent Slough -Structure Exposed None/Limited to Skin Breakdown -Texture (Maggy-wound Skin Appearance) Friable, Scarring -Moisture (Maggy-wound Skin Appearance Assessed, ) Maceration -Color (Maggy-wound Skin Appearance) No Abnormality, Assessed -Temperature (Maggy-wound Skin No Abnormality Appearance) (Pt Warm) -Tenderness on Palpation (Maggy-wound No Skin Appearance) -Ulcer Cleansing Wound Cleanser -Foul Odor after Cleansing No -Anesthetic Used 4% Lidocaine Solution #31- R 2ND TOE -Combined with other wound No -Current Size (cm) - Length 3.4 -Current Size (cm) - Width 2.5 -Current Size (cm) - Depth 0.1 -Total Square Cm 8.50 -Photo Taken No -Epithelialization None Present -Tunneling No -Undermining/Tunneling No -Circular Undermining No -Exudate Amt Small -Exudate Type Serosanguineous -Wound Margin Distinct, Outline Attached -Granulation Amt Medium (34-66%) -Granulation Quality Red -Slough/Fibrin Yes -Necrosis Amt None Present (0 %) -Necrotic Tissue Type Adherent Slough -Structure Exposed None/Limited to Skin Breakdown -Texture (Maggy-wound Skin Appearance) No Abnormality, Assessed -Moisture (Maggy-wound Skin Appearance No Abnormality, ) Assessed -Color (Maggy-wound Skin Appearance) No Abnormality, Assessed -Temperature (Maggy-wound Skin No Abnormality Appearance) (Pt Warm) -Tenderness on Palpation (Maggy-wound No Skin Appearance) -Ulcer Cleansing Wound Cleanser -Foul Odor after Cleansing No -Anesthetic Used 4% Lidocaine Solution #29 right 3rd toe -Combined with other wound No -Current Size (cm) - Length 0.1 -Current Size (cm) - Width 0.1 -Current Size (cm) - Depth 0.1 -Total Square Cm 0.01 -Photo Taken No -Epithelialization None Present -Tunneling No -Undermining/Tunneling No -Circular Undermining No -Necrosis Amt Large (67-100%) -Necrotic Tissue Type Adherent Slough -Moisture (Maggy-wound Skin Appearance Dry/Scaly ) -Color (Maggy-wound Skin Appearance) No Abnormality, Assessed -Temperature (Maggy-wound Skin No Abnormality Appearance) (Pt Warm) -Tenderness on Palpation (Maggy-wound No Skin Appearance) -Ulcer Cleansing Rinsed/ Irrigated with Saline -Foul Odor after Cleansing No -Anesthetic Used 4% Lidocaine Solution [Edema Assessment] -Lower Limb Edema Present Yes -Right Calf (cm) 40.1 -Right Ankle (cm) 22.1 -Left Calf (cm) 40.6 -Left Ankle (cm) 23.1 WC - Nurse 2 - General Ulcer CM Notes Start: 04/16/19 10:06 Freq: Status: Active Protocol: Activity Type Activity Date Activity User E-Sign Co-Sign Detail Recorded Client Recorded Date Recorded By Document 04/30/19 10:32 JOE [id number] 04/30/19 10:36 JOE 04/30/19 10:32 Wound Center Nurse 2 [Procedure/Treatment] #33- R REHMAN CLUSTER -Time 10:34 -Correct Patient Yes -Correct Side, Site, Position Yes -Correct Procedure Yes -Procedure Performed Yes -Type of Procedure Debridement -Clinical Debridement Subcutaneous -Post Debridement Size (cm) - Length 6.5 -Post Debridement Size (cm) - Width 3.2 -Post Debridement Size (cm) - Depth 0.2 -Total Square Cm 20.80 -Wound/Ulcer Outcome Not Healed -Ulcer Cleansing Rinsed/ Irrigated with Saline -Foul Odor after Cleansing No -Bioengineered Tissue No -Bleeding Controlled with Pressure -Offloading No -Treatment Response Procedure Tolerated Well #32- R MED ANKLE -Time 10:33 -Correct Patient Yes -Correct Side, Site, Position Yes -Correct Procedure Yes -Procedure Performed Yes -Type of Procedure Debridement -Clinical Debridement Subcutaneous -Post Debridement Size (cm) - Length 3.4 -Post Debridement Size (cm) - Width 3.2 -Post Debridement Size (cm) - Depth 0.1 -Total Square Cm 10.88 -Wound/Ulcer Outcome Not Healed -Ulcer Cleansing Rinsed/ Irrigated with Saline -Foul Odor after Cleansing No -Bioengineered Tissue No -Bleeding Controlled with Pressure -Offloading No -Treatment Response Procedure Tolerated Well #31- R 2ND TOE -Time 10:33 -Correct Patient Yes -Correct Side, Site, Position Yes -Correct Procedure Yes -Procedure Performed Yes -Type of Procedure Debridement -Clinical Debridement Subcutaneous -Post Debridement Size (cm) - Length 3.5 -Post Debridement Size (cm) - Width 2.5 -Post Debridement Size (cm) - Depth 0.1 -Total Square Cm 8.75 -Wound/Ulcer Outcome Not Healed -Ulcer Cleansing Rinsed/ Irrigated with Saline -Foul Odor after Cleansing No -Bioengineered Tissue No -Bleeding Controlled with Pressure -Offloading No -Treatment Response Procedure Tolerated Well #29 right 3rd toe -Time 10:34 -Correct Patient Yes -Correct Side, Site, Position Yes -Correct Procedure Yes -Procedure Performed Yes -Type of Procedure Debridement -Clinical Debridement Subcutaneous -Post Debridement Size (cm) - Length 0.2 -Post Debridement Size (cm) - Width 0.2 -Post Debridement Size (cm) - Depth 0.1 -Total Square Cm 0.04 -Wound/Ulcer Outcome Not Healed -Ulcer Cleansing Rinsed/ Irrigated with Saline -Foul Odor after Cleansing No -Bioengineered Tissue No -Bleeding Controlled with Pressure -Offloading Yes -Type of Offloading Surgical Shoe -Treatment Response Procedure Tolerated Well [See Physician Procedure note for Specifics] Pain Scale: 0-10 Numeric [Pain] -Is Patient Pain Free? Yes Musculoskeletal: No Tenderness to Palpation of Joints or Extremities, Muscle Wasting, - - Left transmetatarsal amputation. Right dorsal contraction lesser toes consistent hammertoes Neurological: - - lack of epicritic sensation via light touch Psych/Mental Status: Normal Affect, Appropriate Debridement Note Post-Debridement Measurements/Treatment WC - Nurse 2 - General Ulcer CM Notes Start: 04/16/19 10:06 Freq: Status: Active Protocol: Activity Type Activity Date Activity User E-Sign Co-Sign Detail Recorded Client Recorded Date Recorded By Document 04/16/19 10:49 [id number] 04/16/19 10:53 Document 04/23/19 10:47 [id number] 04/23/19 10:51 Document 04/30/19 10:32 [id number] 04/30/19 10:36 04/16/19 04/23/19 04/30/19 10:49 10:47 10:32 Wound Center Nurse 2 #33- R REHMAN CLUSTER -Time 10:52 10:48 10:34 -Correct Patient Yes Yes Yes -Correct Side, Site, Position Yes Yes Yes -Correct Procedure Yes Yes Yes -Procedure Performed Yes Yes Yes -Type of Procedure Debridement Debridement Debridement -Clinical Debridement Subcutaneous Subcutaneous Subcutaneous -Post Debridement Size (cm) - Length 15.1 15.3 6.5 -Post Debridement Size (cm) - Width 13.3 8.6 3.2 -Post Debridement Size (cm) - Depth 0.1 0.1 0.2 -Total Square Cm 200.83 131.58 20.80 -Wound/Ulcer Outcome Not Healed Not Healed Not Healed -Ulcer Cleansing Rinsed/ Rinsed/ Rinsed/ Irrigated with Irrigated with Irrigated with Saline Saline Saline -Foul Odor after Cleansing No No No -Bioengineered Tissue No No No -Bleeding Controlled with Pressure Pressure Pressure -Offloading No No No -Treatment Response Procedure Procedure Procedure Tolerated Well Tolerated Well Tolerated Well #32- R MED ANKLE -Time 10:52 10:48 10:33 -Correct Patient Yes Yes Yes -Correct Side, Site, Position Yes Yes Yes -Correct Procedure Yes Yes Yes -Procedure Performed Yes Yes Yes -Type of Procedure Debridement Debridement Debridement -Clinical Debridement Subcutaneous Subcutaneous Subcutaneous -Post Debridement Size (cm) - Length 4.1 4 3.4 -Post Debridement Size (cm) - Width 4.2 2 3.2 -Post Debridement Size (cm) - Depth 0.1 0.2 0.1 -Total Square Cm 17.22 8 10.88 -Wound/Ulcer Outcome Not Healed Not Healed Not Healed -Ulcer Cleansing Rinsed/ Rinsed/ Rinsed/ Irrigated with Irrigated with Irrigated with Saline Saline Saline -Foul Odor after Cleansing No No No -Bioengineered Tissue No No No -Bleeding Controlled with Pressure Pressure Pressure -Offloading No No No -Treatment Response Procedure Procedure Procedure Tolerated Well Tolerated Well Tolerated Well #31- R 2ND TOE -Time 10:49 10:48 10:33 -Correct Patient Yes Yes Yes -Correct Side, Site, Position Yes Yes Yes -Correct Procedure Yes Yes Yes -Procedure Performed Yes Yes Yes -Type of Procedure Debridement Debridement Debridement -Clinical Debridement Subcutaneous Subcutaneous Subcutaneous -Post Debridement Size (cm) - Length 4.1 4.5 3.5 -Post Debridement Size (cm) - Width 2.8 2.1 2.5 -Post Debridement Size (cm) - Depth 0.1 0.1 0.1 -Total Square Cm 11.48 9.45 8.75 -Wound/Ulcer Outcome Not Healed Not Healed Not Healed -Ulcer Cleansing Rinsed/ Rinsed/ Rinsed/ Irrigated with Irrigated with Irrigated with Saline Saline Saline -Foul Odor after Cleansing No No No -Bioengineered Tissue No No No -Bleeding Controlled with Pressure Pressure Pressure -Offloading Yes No No -Type of Offloading Surgical Shoe -Treatment Response Procedure Procedure Procedure Tolerated Well Tolerated Well Tolerated Well #30 left plantar -Correct Patient No -Correct Side, Site, Position No -Correct Procedure No -Procedure Performed No -Post Debridement Size (cm) - Length 0 -Post Debridement Size (cm) - Width 0 -Post Debridement Size (cm) - Depth 0 -Total Square Cm 0 -Wound/Ulcer Outcome Healed- Epithelialized -Ulcer Cleansing Rinsed/ Irrigated with Saline -Foul Odor after Cleansing No -Bioengineered Tissue No #29 right 3rd toe -Time 10:51 10:48 10:34 -Correct Patient Yes Yes Yes -Correct Side, Site, Position Yes Yes Yes -Correct Procedure Yes Yes Yes -Procedure Performed Yes Yes Yes -Type of Procedure Debridement Debridement Debridement -Clinical Debridement Subcutaneous Subcutaneous Subcutaneous -Post Debridement Size (cm) - Length 0.4 0.6 0.2 -Post Debridement Size (cm) - Width 0.2 0.5 0.2 -Post Debridement Size (cm) - Depth 0.1 0.1 0.1 -Total Square Cm 0.08 0.30 0.04 -Wound/Ulcer Outcome Not Healed Not Healed Not Healed -Ulcer Cleansing Rinsed/ Rinsed/ Rinsed/ Irrigated with Irrigated with Irrigated with Saline Saline Saline -Foul Odor after Cleansing No No No -Bioengineered Tissue No No No -Bleeding Controlled with Pressure Pressure Pressure -Offloading No No Yes -Type of Offloading Surgical Shoe -Treatment Response Procedure Procedure Procedure Tolerated Well Tolerated Well Tolerated Well Pain Scale: 0-10 Numeric Is Patient Pain Free? Yes Yes Yes Wound debrided: dorsal 2nd toe Laterality: Right Wound Grade/Stage: grade 1 Type of Debridement: Excisional debridement Anesthesia Used: 5% Lidocaine Gel Depth: in the subcutaneous layer Percentage of wound debrided: 100 Instrument Used: #15 blade Tissue Removed: fibrous, devitalized subcutaneous, biofilm, slough Severity: Fat Layer Exposed Amount of bleeding with debridement: Mild Bleeding Controlled with: Pressure Patient tolerated procedure well - Additional Wound Wound debrided: dorsal 3rd toe Laterality: Right Wound Grade/Stage: grade 1 Type of Debridement: Excisional debridement Anesthesia Used: 5% Lidocaine Gel Depth: in the subcutaneous layer Percentage of wound debrided: 100 Instrument Used: #15 blade Tissue Removed: fibrous, devitalized subcutaneous, biofilm, slough Severity: Fat Layer Exposed Amount of bleeding with debridement: Mild Bleeding Controlled with: Pressure Patient tolerated procedure: Patient tolerated procedure well - Additional Wound Wound debrided: anterior leg (inferior) Laterality: Right Wound Grade/Stage: grade 1 Type of Debridement: Excisional debridement Anesthesia Used: 5% Lidocaine Gel Depth: in the subcutaneous layer Percentage of wound debrided: 100 Instrument Used: #15 blade Tissue Removed: fibrous, devitalized subcutaneous, biofilm, slough Severity: Fat Layer Exposed Amount of bleeding with debridement: Mild Bleeding Controlled with: Pressure Patient tolerated procedure: Patient tolerated procedure well - Additional Wound Wound debrided: anterior leg (superior) Laterality: Right Wound Grade/Stage: grade 1 Type of Debridement: Excisional debridement Anesthesia Used: 5% Lidocaine Gel Depth: in the subcutaneous layer Percentage of wound debrided: 100 Instrument Used: #15 blade Tissue Removed: fibrous, devitalized subcutaneous, biofilm, slough Severity: Fat Layer Exposed Amount of bleeding with debridement: Mild Bleeding Controlled with: Pressure Patient tolerated procedure: Patient tolerated procedure well Assessment/Plan Clinical Impression(s) from Imaging Studies Foot X-Ray 04/16/19 11:40 IMPRESSION: 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 Arterial calcifications noted throughout the right foot. There is no radiographic evidence of osteomyelitis. No soft tissue gas is seen. Electronically Signed: Yuval Miller MD at 17:09 EST , Service support , Active Problems (Last Reviewed 12/31/18 @ 09:10 by Alma Garcia) Ulcer of right lower extremity with fat layer exposed (Chronic) Ulcer of right foot with fat layer exposed (Chronic) Type 2 diabetes mellitus with diabetic polyneuropathy (Chronic) Venous insufficiency (chronic) (peripheral) (Chronic) Other specified peripheral vascular diseases (Chronic) Callus of foot (Chronic) Assessment: Right third toe ulcer with fat layer exposed with no infection, hardy grade 1. Right second toe ulcer with fat layer exposed with no infection, hardy grade 1. Right leg ulcers with fat layer exposed (inferior and superior), no infection, hardy grade 1. Venous insufficiency and chronic lower extremity edema also complicated with congestive heart failure. peripheral vascular disease with recent intervention 2017. diabetes with neuropathy. malnutrition. non compliance history Plan: The patient was seen and examined at the wound center today and was updated on the plan of care. A subcutaneous debridement was performed today to the right foot (toes) and right leg. To change dressing daily with Aquacel Ag. To continue Lac-Hydrin application to adjacent dry skin avoiding direct wound application. To keep pressure off the ulcer sites to optimize healing; he has surgical shoes. To wear compression Tubigrip garments. To elevate legs at rest to avoid idle standing or sitting. To continue with nutritional supplementation and proper glycemic control to optimize healing. He was reassured no local signs of infection are noted today. To monitor closely. Instructed to follow-up with PCP and to maintain [employer] for improved glucose control. He had prior vascular surgery intervention with Dr. Redding. There are not any signs of critical limb ischemia at this time. Last noninvasive vascular studies were performed in November 2018 with thigh and monophasic waveforms at the ankle level, diminished ankle-brachial indices. This is consistent with moderate occlusive arterial vessel disease and also severe alteration of and angiosomal distribution particularly on the right lower extremity. To follow-up with Dr. Redding as advised and it is only he still needs to schedule this. He plans to go over and schedule this in person this afternoon. His recent lab work from 04/11/2018 was reviewed with white blood cell count of 11.2 and hemoglobin A1c from 11/2018 of 9.5%. I recommend an updated right foot x-ray today and order was provided. Home health is recommended to aid in dressing care that he is unable to perform on his own. He has struggled with this aspect of his care which compromises his healing potential. This service is medically necessary. This is been set up. A 15 blade scalpel was also used to debride his left plantar foot callus without incident. There is no infection or ulcer noted. this patient will follow up at wound healing center in one week or sooner if needed. I answered all the questions.
== END 2019-05-10 23:59 ==
LOC: WC 10:15
PROVIDERS: Family Provider Family Medicine Geriatric Medicine; PCP Family Medicine Geriatric Medicine; Referring Provider Podiatrist; Visit Provider Podiatrist
DX: E11.621 Type 2 diabetes mellitus with foot ulcer (principal); E11.622 Type 2 diabetes mellitus with other skin ulcer; E11.42 Type 2 diabetes mellitus with diabetic polyneuropathy; E11.51 Type 2 diabetes mellitus with diabetic peripheral angiopathy without gangrene; L97.512 Non-pressure chronic ulcer of other part of right foot with fat layer exposed; L97.812 Non-pressure chronic ulcer of other part of right lower leg with fat layer exposed; I87.2 Venous insufficiency (chronic) (peripheral); L84 Corns and callosities; E11.65 Type 2 diabetes mellitus with hyperglycemia; Z91.19 Patient's noncompliance with other medical treatment and regimen
CPT/HCPCS: 11042; 11045; 36415; 73630; 80048

== ENCOUNTER 2019-06-10 16:15 | Outpatient (RCR) | payer MEDICARE, MEDICAID, SELFPAY ==
[2019-05-11 00:54] VITALS: BP 122/65; PULSE 81; RESP 18; TEMP 35.3
[2019-05-14 13:42] VITALS: BP 126/65; PULSE 64; RESP 18; TEMP 35.9; BMI 40.8
--- NOTE | 2019-05-14 17:03 | PCM.WC.PN ---
(1) Bilateral leg edema Status: Chronic Current Visit: Yes Code(s): R60.0 - Localized edema (2) Ulcer of right lower extremity with fat layer exposed Status: Chronic Current Visit: Yes Code(s): L97.912 - Non-pressure chronic ulcer of unspecified part of right lower leg with fat layer exposed (3) Type 2 diabetes mellitus with diabetic polyneuropathy Status: Chronic Current Visit: Yes Qualifiers: Code(s): E11.42 - Type 2 diabetes mellitus with diabetic polyneuropathy (4) Venous insufficiency (chronic) (peripheral) Status: Chronic Current Visit: Yes Code(s): I87.2 - Venous insufficiency (chronic) (peripheral) (5) Ulcer of right foot with fat layer exposed Status: Chronic Current Visit: Yes Code(s): L97.512 - Non-pressure chronic ulcer of other part of right foot with fat layer exposed Type of Wound Date of Service: 05/17/19 Chief Complaint: Right leg ulcer. Right foot ulcer History of Wound: This 69-year-old male who presents to the wound healing center today with complaint of right leg and foot ulcers with chronic bilateral lower extremity swelling. He denies fever, chill, nausea, vomiting. He denies redness or odor. He tries to wear Tubigrip compression stockings. He takes Glucerna nutritional supplement. Progress of Wound: right leg ulcers stable. second toe ulcers on right foot stable - Physical Exam Vital Signs Temp Pulse Resp BP 96.6 F L 64 18 126/65 H 05/14/19 13:42 05/14/19 13:42 05/14/19 13:42 05/14/19 13:42 General: Alert, Oriented x3, Cooperative, No apparent distress Extremities: No cyanosis, Capillary Refill Less than 3 Seconds, No Calf Tenderness, Diminished Peripheral Pulses, Edema Skin: Ulcer/ Wound - No purulence, erythema, streaking, odor, infection. Peripheral skin is hairless and atrophic epithelialization is noted to the dorsal third and fourth toes Wound Measurements and Assessment WC - Nurse 1 - General Ulcer Measurement Start: 05/14/19 13:42 Freq: Status: Active Protocol: Activity Type Activity Date Activity User E-Sign Co-Sign Detail Recorded Client Recorded Date Recorded By Document 05/14/19 13:42 BM [id number] 05/14/19 13:48 BMF 05/14/19 13:42 Wound Center Nurse 1 [Ulcer Assessment] #33- R REHMAN CLUSTER -Combined with other wound No -Current Size (cm) - Length 0.7 -Current Size (cm) - Width 0.5 -Current Size (cm) - Depth 0.1 -Total Square Cm 0.35 -Photo Taken No -Epithelialization Large 67-100% -Tunneling No -Undermining/Tunneling No -Circular Undermining No -Exudate Amt Small -Exudate Type Serous -Wound Margin Flat & Intact -Granulation Amt Small (1-33%) -Granulation Quality Red -Slough/Fibrin Yes -Necrosis Amt Medium (34-66%) -Necrotic Tissue Type Adherent Slough -Texture (Maggy-wound Skin Appearance) Assessed, Scarring -Moisture (Maggy-wound Skin Appearance Assessed,Dry/ ) Scaly -Color (Maggy-wound Skin Appearance) Assessed, Erythema -Temperature (Maggy-wound Skin No Abnormality Appearance) (Pt Warm) -Tenderness on Palpation (Maggy-wound No Skin Appearance) -Ulcer Cleansing Rinsed/ Irrigated with Saline -Foul Odor after Cleansing No -Anesthetic Used 4% Lidocaine Solution #32- R MED ANKLE -Combined with other wound No -Current Size (cm) - Length 1.1 -Current Size (cm) - Width 1.6 -Current Size (cm) - Depth 0.1 -Total Square Cm 1.76 -Photo Taken No -Epithelialization Small 1-33% -Tunneling No -Undermining/Tunneling No -Circular Undermining No -Exudate Amt Small -Exudate Type Serous -Wound Margin Flat & Intact -Granulation Amt Small (1-33%) -Granulation Quality Red -Slough/Fibrin Yes -Necrosis Amt Medium (34-66%) -Necrotic Tissue Type Adherent Slough -Texture (Maggy-wound Skin Appearance) Assessed, Scarring -Moisture (Maggy-wound Skin Appearance Assessed,Dry/ ) Scaly -Color (Maggy-wound Skin Appearance) Assessed, Erythema -Temperature (Maggy-wound Skin No Abnormality Appearance) (Pt Warm) -Tenderness on Palpation (Maggy-wound No Skin Appearance) -Ulcer Cleansing Rinsed/ Irrigated with Saline -Foul Odor after Cleansing No -Anesthetic Used 4% Lidocaine Solution #31- R 2ND TOE -Combined with other wound No -Current Size (cm) - Length 0.8 -Current Size (cm) - Width 1.2 -Current Size (cm) - Depth 0.1 -Total Square Cm 0.96 -Photo Taken No -Epithelialization None Present -Tunneling No -Undermining/Tunneling No -Circular Undermining No -Exudate Amt Small -Exudate Type Serosanguineous -Wound Margin Distinct, Outline Attached -Granulation Amt Large (67-100%) -Granulation Quality Pale,Red -Slough/Fibrin Yes -Necrosis Amt Small (1-33%) -Necrotic Tissue Type Adherent Slough -Texture (Maggy-wound Skin Appearance) Assessed,Callus ,Scarring -Moisture (Maggy-wound Skin Appearance Assessed,Dry/ ) Scaly -Color (Maggy-wound Skin Appearance) Assessed -Temperature (Maggy-wound Skin No Abnormality Appearance) (Pt Warm) -Tenderness on Palpation (Maggy-wound No Skin Appearance) -Ulcer Cleansing Rinsed/ Irrigated with Saline -Foul Odor after Cleansing No -Anesthetic Used 4% Lidocaine Solution #29 right 3rd toe -Combined with other wound No -Current Size (cm) - Length 0.1 -Current Size (cm) - Width 0.1 -Current Size (cm) - Depth 0.1 -Total Square Cm 0.01 -Photo Taken No -Epithelialization Large 67-100% -Tunneling No -Undermining/Tunneling No -Circular Undermining No -Exudate Amt None Present -Texture (Maggy-wound Skin Appearance) Assessed -Moisture (Maggy-wound Skin Appearance Assessed,Dry/ ) Scaly -Color (Maggy-wound Skin Appearance) Assessed -Temperature (Maggy-wound Skin No Abnormality Appearance) (Pt Warm) -Tenderness on Palpation (Maggy-wound No Skin Appearance) #28 right medial lower leg -Combined with other wound No -Current Size (cm) - Length 0.1 -Current Size (cm) - Width 0.1 -Current Size (cm) - Depth 0.1 -Total Square Cm 0.01 -Photo Taken No -Epithelialization Large 67-100% -Tunneling No -Undermining/Tunneling No -Circular Undermining No -Texture (Maggy-wound Skin Appearance) Assessed -Moisture (Maggy-wound Skin Appearance Assessed,Dry/ ) Scaly -Color (Maggy-wound Skin Appearance) Assessed -Temperature (Maggy-wound Skin No Abnormality Appearance) (Pt Warm) -Tenderness on Palpation (Maggy-wound No Skin Appearance) [Edema Assessment] -Lower Limb Edema Present Yes -Right Calf (cm) 41.5 -Right Ankle (cm) 22.1 -Left Calf (cm) 39.8 -Left Ankle (cm) 22.7 WC - Nurse 2 - General Ulcer CM Notes Start: 05/14/19 13:42 Freq: Status: Active Protocol: Activity Type Activity Date Activity User E-Sign Co-Sign Detail Recorded Client Recorded Date Recorded By Document 05/14/19 14:30 JF [id number] 05/14/19 14:33 JOE 05/14/19 14:30 Wound Center Nurse 2 [Procedure/Treatment] #33- R REHMAN CLUSTER -Time 14:31 -Correct Patient Yes -Correct Side, Site, Position Yes -Correct Procedure Yes -Procedure Performed Yes -Type of Procedure Debridement -Clinical Debridement Subcutaneous -Post Debridement Size (cm) - Length 0.8 -Post Debridement Size (cm) - Width 0.6 -Post Debridement Size (cm) - Depth 0.1 -Total Square Cm 0.48 -Wound/Ulcer Outcome Not Healed -Ulcer Cleansing Rinsed/ Irrigated with Saline -Foul Odor after Cleansing No -Bioengineered Tissue No -Bleeding Controlled with Pressure -Offloading No -Treatment Response Procedure Tolerated Well #32- R MED ANKLE -Time 14:31 -Correct Patient Yes -Correct Side, Site, Position Yes -Correct Procedure Yes -Procedure Performed Yes -Type of Procedure Debridement -Clinical Debridement Subcutaneous -Post Debridement Size (cm) - Length 1.2 -Post Debridement Size (cm) - Width 1.6 -Post Debridement Size (cm) - Depth 0.2 -Total Square Cm 1.92 -Wound/Ulcer Outcome Not Healed -Ulcer Cleansing Rinsed/ Irrigated with Saline -Foul Odor after Cleansing No -Bioengineered Tissue No -Bleeding Controlled with Pressure -Offloading No -Treatment Response Procedure Tolerated Well #31- R 2ND TOE -Time 14:31 -Correct Patient Yes -Correct Side, Site, Position Yes -Correct Procedure Yes -Procedure Performed Yes -Type of Procedure Debridement -Clinical Debridement Subcutaneous -Post Debridement Size (cm) - Length 0.8 -Post Debridement Size (cm) - Width 1.3 -Post Debridement Size (cm) - Depth 0.1 -Total Square Cm 1.04 -Wound/Ulcer Outcome Not Healed -Ulcer Cleansing Rinsed/ Irrigated with Saline -Foul Odor after Cleansing No -Bioengineered Tissue No -Bleeding Controlled with Pressure -Offloading Yes -Type of Offloading Surgical Shoe -Treatment Response Procedure Tolerated Well #29 right 3rd toe -Correct Patient No -Correct Side, Site, Position No -Correct Procedure No -Procedure Performed No -Post Debridement Size (cm) - Length 0 -Post Debridement Size (cm) - Width 0 -Post Debridement Size (cm) - Depth 0 -Total Square Cm 0 -Wound/Ulcer Outcome Healed- Epithelialized #28 right medial lower leg -Correct Patient No -Correct Side, Site, Position No -Correct Procedure No -Procedure Performed No -Post Debridement Size (cm) - Length 0 -Post Debridement Size (cm) - Width 0 -Post Debridement Size (cm) - Depth 0 -Total Square Cm 0 -Wound/Ulcer Outcome Healed- Epithelialized [See Physician Procedure note for Specifics] Pain Scale: 0-10 Numeric [Pain] -Is Patient Pain Free? Yes Musculoskeletal: No Tenderness to Palpation of Joints or Extremities, Muscle Wasting, - - Dorsal contraction lesser toes. Compartments are soft to palpate right lower extremity Neurological: - - Lack of normal epicritic sensation light touch is consistent with neuropathy Psych/Mental Status: Normal Affect, Appropriate Debridement Note Post-Debridement Measurements/Treatment WC - Nurse 2 - General Ulcer CM Notes Start: 05/14/19 13:42 Freq: Status: Active Protocol: Activity Type Activity Date Activity User E-Sign Co-Sign Detail Recorded Client Recorded Date Recorded By Document 05/14/19 14:30 JF [id number] 05/14/19 14:33 JF 05/14/19 14:30 Wound Center Nurse 2 #33- R REHMAN CLUSTER -Time 14:31 -Correct Patient Yes -Correct Side, Site, Position Yes -Correct Procedure Yes -Procedure Performed Yes -Type of Procedure Debridement -Clinical Debridement Subcutaneous -Post Debridement Size (cm) - Length 0.8 -Post Debridement Size (cm) - Width 0.6 -Post Debridement Size (cm) - Depth 0.1 -Total Square Cm 0.48 -Wound/Ulcer Outcome Not Healed -Ulcer Cleansing Rinsed/ Irrigated with Saline -Foul Odor after Cleansing No -Bioengineered Tissue No -Bleeding Controlled with Pressure -Offloading No -Treatment Response Procedure Tolerated Well #32- R MED ANKLE -Time 14:31 -Correct Patient Yes -Correct Side, Site, Position Yes -Correct Procedure Yes -Procedure Performed Yes -Type of Procedure Debridement -Clinical Debridement Subcutaneous -Post Debridement Size (cm) - Length 1.2 -Post Debridement Size (cm) - Width 1.6 -Post Debridement Size (cm) - Depth 0.2 -Total Square Cm 1.92 -Wound/Ulcer Outcome Not Healed -Ulcer Cleansing Rinsed/ Irrigated with Saline -Foul Odor after Cleansing No -Bioengineered Tissue No -Bleeding Controlled with Pressure -Offloading No -Treatment Response Procedure Tolerated Well #31- R 2ND TOE -Time 14:31 -Correct Patient Yes -Correct Side, Site, Position Yes -Correct Procedure Yes -Procedure Performed Yes -Type of Procedure Debridement -Clinical Debridement Subcutaneous -Post Debridement Size (cm) - Length 0.8 -Post Debridement Size (cm) - Width 1.3 -Post Debridement Size (cm) - Depth 0.1 -Total Square Cm 1.04 -Wound/Ulcer Outcome Not Healed -Ulcer Cleansing Rinsed/ Irrigated with Saline -Foul Odor after Cleansing No -Bioengineered Tissue No -Bleeding Controlled with Pressure -Offloading Yes -Type of Offloading Surgical Shoe -Treatment Response Procedure Tolerated Well #29 right 3rd toe -Correct Patient No -Correct Side, Site, Position No -Correct Procedure No -Procedure Performed No -Post Debridement Size (cm) - Length 0 -Post Debridement Size (cm) - Width 0 -Post Debridement Size (cm) - Depth 0 -Total Square Cm 0 -Wound/Ulcer Outcome Healed- Epithelialized #28 right medial lower leg -Correct Patient No -Correct Side, Site, Position No -Correct Procedure No -Procedure Performed No -Post Debridement Size (cm) - Length 0 -Post Debridement Size (cm) - Width 0 -Post Debridement Size (cm) - Depth 0 -Total Square Cm 0 -Wound/Ulcer Outcome Healed- Epithelialized Pain Scale: 0-10 Numeric Is Patient Pain Free? Yes Wound debrided: dorsal 2nd toe Laterality: Right Wound Grade/Stage: grade 1 Type of Debridement: Excisional debridement Anesthesia Used: 5% Lidocaine Gel Depth: in the subcutaneous layer Percentage of wound debrided: 100 Instrument Used: #15 blade Tissue Removed: fibrous, devitalized subcutaneous, biofilm, slough Severity: Fat Layer Exposed Amount of bleeding with debridement: Mild Bleeding Controlled with: Pressure Patient tolerated procedure well - Additional Wound Wound debrided: medial lower leg Laterality: Right Wound Grade/Stage: grade 1 Type of Debridement: Excisional debridement Anesthesia Used: 5% Lidocaine Gel Depth: in the subcutaneous layer Percentage of wound debrided: 100 Instrument Used: #15 blade Tissue Removed: fibrous, devitalized subcutaneous, biofilm, slough Severity: Fat Layer Exposed Amount of bleeding with debridement: Mild Bleeding Controlled with: Pressure Patient tolerated procedure: Patient tolerated procedure well - Additional Wound Wound debrided: anterior leg Laterality: Right Wound Grade/Stage: grade 1 Type of Debridement: Excisional debridement Anesthesia Used: 5% Lidocaine Gel Depth: in the subcutaneous layer Percentage of wound debrided: 100 Instrument Used: #15 blade Tissue Removed: fibrous, devitalized subcutaneous, biofilm, slough Severity: Fat Layer Exposed Amount of bleeding with debridement: Mild Bleeding Controlled with: Pressure Patient tolerated procedure: Patient tolerated procedure well Assessment/Plan Active Problems (Last Reviewed 12/31/18 @ 09:10 by Alma Garcia) Bilateral leg edema (Chronic) Ulcer of right lower extremity with fat layer exposed (Chronic) Ulcer of right foot with fat layer exposed (Chronic) Type 2 diabetes mellitus with diabetic polyneuropathy (Chronic) Venous insufficiency (chronic) (peripheral) (Chronic) Assessment: Right third toe ulcer healed. Right second toe ulcer with fat layer exposed with no infection, hardy grade 1. Right leg ulcers with fat layer exposed (inferior and superior), no infection, hardy grade 1. Venous insufficiency and chronic lower extremity edema also complicated with congestive heart failure. peripheral vascular disease with recent intervention 2018. diabetes with neuropathy. malnutrition. non compliance history Plan: The patient was seen and examined at the wound center today and was updated on the plan of care. A subcutaneous debridement was performed today to the right foot (toe) and right leg. To change dressing daily with Aquacel Ag. To continue Lac-Hydrin application to adjacent dry skin avoiding direct wound application. To keep pressure off the ulcer sites to optimize healing; he has surgical shoes. To wear compression Tubigrip garments. To elevate legs at rest to avoid idle standing or sitting. To continue with nutritional supplementation and proper glycemic control to optimize healing. He was reassured no local signs of infection are noted today. To monitor closely. 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 He had prior vascular surgery intervention with Dr. Redding. There are not any signs of critical limb ischemia at this time. Last noninvasive vascular studies were performed in November 2018 with thigh and monophasic waveforms at the ankle level, diminished ankle-brachial indices. This is consistent with moderate occlusive arterial vessel disease and also severe alteration of and angiosomal distribution particularly on the right lower extremity. To follow-up with Dr. Redding as advised and it is only he still needs to schedule this. He plans to go over and schedule this in person this afternoon. His recent lab work from 04/11/2018 was reviewed with white blood cell count of 11.2 and hemoglobin A1c from 11/2018 of 9.5%. I recommend an updated right foot x-ray today and order was provided. Home health is recommended to aid in dressing care that he is unable to perform on his own. He has struggled with this aspect of his care which compromises his healing potential. This service is medically necessary. This is been set up. A 15 blade scalpel was also used to debride his left plantar foot callus without incident. There is no infection or ulcer noted. this patient will follow up at wound healing center in one week or sooner if needed. I answered all the questions.
[2019-05-21 14:16] VITALS: BP 133/67; PULSE 91; RESP 18; TEMP 36.1; BMI 40.8
--- NOTE | 2019-05-21 15:39 | PCM.WC.PN ---
(1) Bilateral leg edema Status: Chronic Current Visit: Yes Code(s): R60.0 - Localized edema (2) Ulcer of right lower extremity with fat layer exposed Status: Chronic Current Visit: Yes Code(s): L97.912 - Non-pressure chronic ulcer of unspecified part of right lower leg with fat layer exposed (3) Type 2 diabetes mellitus with diabetic polyneuropathy Status: Chronic Current Visit: Yes Qualifiers: Code(s): E11.42 - Type 2 diabetes mellitus with diabetic polyneuropathy (4) Venous insufficiency (chronic) (peripheral) Status: Chronic Current Visit: Yes Code(s): I87.2 - Venous insufficiency (chronic) (peripheral) (5) Ulcer of right foot with fat layer exposed Status: Chronic Current Visit: Yes Code(s): L97.512 - Non-pressure chronic ulcer of other part of right foot with fat layer exposed Type of Wound Date of Service: 05/21/19 Chief Complaint: Right leg ulcer. Right ankle ulcer. Right foot ulcer History of Wound: This 69-year-old male who presents to the wound healing center today with complaint of right leg and foot ulcers with chronic bilateral lower extremity swelling. He denies fever, chill, nausea, vomiting. He denies redness or odor. He tries to wear Tubigrip compression stockings. He takes Glucerna nutritional supplement. Progress of Wound: right leg ulcers stable (laph-ab-rygw and new to posterior lateral). second toe ulcers on right foot stable. Right ankle ulcer stable - Physical Exam Vital Signs Temp Pulse Resp BP 97 F L 91 18 133/67 H 05/21/19 14:16 05/21/19 14:16 05/21/19 14:16 05/21/19 14:16 General: Alert, Oriented x3, Cooperative, No apparent distress HEENT: Atraumatic Extremities: No cyanosis, Capillary Refill Less than 3 Seconds, No Calf Tenderness, Diminished Peripheral Pulses, Edema Skin: Ulcer/ Wound - No purulence, erythema, string, odor, infection, maceration, necrosis. Skin is atrophic and hairless. The ulcer beds are granular. The anterior right leg rehman ulcer is healed and there is a new skin discontinuity to the posterior lateral leg and medial right ankle Wound Measurements and Assessment WC - Nurse 1 - General Ulcer Measurement Start: 05/14/19 13:42 Freq: Status: Active Protocol: Activity Type Activity Date Activity User E-Sign Co-Sign Detail Recorded Client Recorded Date Recorded By Document 05/21/19 14:16 DL [id number] 05/21/19 14:25 DL 05/21/19 14:16 Wound Center Nurse 1 [Ulcer Assessment] #34- R LEG POSTERIOR -Combined with other wound No -Current Size (cm) - Length 1.8 -Current Size (cm) - Width 2 -Current Size (cm) - Depth 0.1 -Total Square Cm 3.6 -Date of Last Picture (Recall this 05/21/19 field) -Photo Taken Yes -Epithelialization None Present -Tunneling No -Undermining/Tunneling No -Circular Undermining No -Exudate Amt Small -Exudate Type Serosanguineous -Wound Margin Distinct, Outline Attached -Granulation Amt Large (67-100%) -Granulation Quality Red -Slough/Fibrin Yes -Necrosis Amt Small (1-33%) -Necrotic Tissue Type Adherent Slough -Texture (Maggy-wound Skin Appearance) Assessed -Moisture (Maggy-wound Skin Appearance Assessed,Dry/ ) Scaly -Color (Maggy-wound Skin Appearance) Assessed, Erythema -Temperature (Maggy-wound Skin No Abnormality Appearance) (Pt Warm) -Tenderness on Palpation (Maggy-wound No Skin Appearance) -Ulcer Cleansing Rinsed/ Irrigated with Saline -Foul Odor after Cleansing No -Anesthetic Used 4% Lidocaine Solution #33- R REHMAN CLUSTER -Combined with other wound No -Current Size (cm) - Length 0.1 -Current Size (cm) - Width 0.1 -Current Size (cm) - Depth 0.1 -Total Square Cm 0.01 -Date of Last Picture (Recall this 05/21/19 field) -Photo Taken No -Epithelialization Large 67-100% -Tunneling No -Undermining/Tunneling No -Circular Undermining No -Exudate Amt None Present -Granulation Amt None Present (0 %) -Texture (Maggy-wound Skin Appearance) Assessed -Moisture (Maggy-wound Skin Appearance Assessed,Dry/ ) Scaly -Color (Maggy-wound Skin Appearance) Assessed, Erythema -Temperature (Maggy-wound Skin No Abnormality Appearance) (Pt Warm) -Tenderness on Palpation (Maggy-wound No Skin Appearance) -Ulcer Cleansing Rinsed/ Irrigated with Saline -Foul Odor after Cleansing No -Anesthetic Used 4% Lidocaine Solution #32- R MED ANKLE -Combined with other wound No -Current Size (cm) - Length 1.5 -Current Size (cm) - Width 0.3 -Current Size (cm) - Depth 0.1 -Total Square Cm 0.45 -Photo Taken No -Epithelialization Small 1-33% -Tunneling No -Undermining/Tunneling No -Circular Undermining No -Exudate Amt Small -Exudate Type Serous -Wound Margin Distinct, Outline Attached -Granulation Amt Medium (34-66%) -Granulation Quality Red -Slough/Fibrin Yes -Necrosis Amt Small (1-33%) -Necrotic Tissue Type Adherent Slough -Texture (Maggy-wound Skin Appearance) Assessed,Callus ,Scarring -Moisture (Maggy-wound Skin Appearance Dry/Scaly ) -Color (Maggy-wound Skin Appearance) Assessed -Temperature (Maggy-wound Skin No Abnormality Appearance) (Pt Warm) -Tenderness on Palpation (Maggy-wound No Skin Appearance) -Ulcer Cleansing Rinsed/ Irrigated with Saline -Foul Odor after Cleansing No -Anesthetic Used 4% Lidocaine Solution #31- R 2ND TOE -Combined with other wound No -Current Size (cm) - Length 1.1 -Current Size (cm) - Width 0.9 -Current Size (cm) - Depth 0.1 -Total Square Cm 0.99 -Photo Taken No -Epithelialization Small 1-33% -Tunneling No -Undermining/Tunneling No -Circular Undermining No -Exudate Amt Small -Exudate Type Serosanguineous -Wound Margin Distinct, Outline Attached -Granulation Amt Medium (34-66%) -Granulation Quality [place] -Slough/Fibrin Yes -Necrosis Amt Small (1-33%) -Necrotic Tissue Type Adherent Slough -Texture (Maggy-wound Skin Appearance) Assessed, Scarring -Moisture (Maggy-wound Skin Appearance Assessed,Dry/ ) Scaly -Color (Maggy-wound Skin Appearance) Assessed -Temperature (Maggy-wound Skin No Abnormality Appearance) (Pt Warm) -Tenderness on Palpation (Maggy-wound No Skin Appearance) -Ulcer Cleansing Rinsed/ Irrigated with Saline -Foul Odor after Cleansing No -Anesthetic Used 4% Lidocaine Solution [Edema Assessment] -Lower Limb Edema Present Yes -Right Calf (cm) 40 -Right Ankle (cm) 23 -Left Calf (cm) 38.4 -Left Ankle (cm) 24 WC - Nurse 2 - General Ulcer CM Notes Start: 05/14/19 13:42 Freq: Status: Active Protocol: Activity Type Activity Date Activity User E-Sign Co-Sign Detail Recorded Client Recorded Date Recorded By Document 05/21/19 14:47 JOE [id number] 05/21/19 14:50 JOE 05/21/19 14:47 Wound Center Nurse 2 [Procedure/Treatment] #34- R LEG POSTERIOR -Time 14:48 -Correct Patient Yes -Correct Side, Site, Position Yes -Correct Procedure Yes -Procedure Performed Yes -Type of Procedure Debridement -Clinical Debridement Subcutaneous -Post Debridement Size (cm) - Length 1.8 -Post Debridement Size (cm) - Width 2.1 -Post Debridement Size (cm) - Depth 0.1 -Total Square Cm 3.78 -Wound/Ulcer Outcome Not Healed -Ulcer Cleansing Rinsed/ Irrigated with Saline -Foul Odor after Cleansing No -Bioengineered Tissue No -Bleeding Controlled with Pressure -Offloading No -Treatment Response Procedure Tolerated Well #33- R REHMAN CLUSTER -Correct Patient No -Correct Side, Site, Position No -Correct Procedure No -Procedure Performed No -Post Debridement Size (cm) - Length 0 -Post Debridement Size (cm) - Width 0 -Post Debridement Size (cm) - Depth 0 -Total Square Cm 0 -Wound/Ulcer Outcome Healed- Epithelialized #32- R MED ANKLE -Time 14:48 -Correct Patient Yes -Correct Side, Site, Position Yes -Correct Procedure Yes -Procedure Performed Yes -Type of Procedure Debridement -Clinical Debridement Subcutaneous -Post Debridement Size (cm) - Length 1.5 -Post Debridement Size (cm) - Width 0.4 -Post Debridement Size (cm) - Depth 0.1 -Total Square Cm 0.60 -Wound/Ulcer Outcome Not Healed -Ulcer Cleansing Rinsed/ Irrigated with Saline -Foul Odor after Cleansing No -Bioengineered Tissue No -Bleeding Controlled with Pressure -Offloading No -Treatment Response Procedure Tolerated Well #31- R 2ND TOE -Time 14:49 -Correct Patient Yes -Correct Side, Site, Position Yes -Correct Procedure Yes -Procedure Performed Yes -Type of Procedure Debridement -Clinical Debridement Subcutaneous -Post Debridement Size (cm) - Length 1.2 -Post Debridement Size (cm) - Width 0.9 -Post Debridement Size (cm) - Depth 0.1 -Total Square Cm 1.08 -Wound/Ulcer Outcome Not Healed -Ulcer Cleansing Rinsed/ Irrigated with Saline -Foul Odor after Cleansing No -Bioengineered Tissue No -Bleeding Controlled with Pressure -Offloading No -Treatment Response Procedure Tolerated Well [See Physician Procedure note for Specifics] Pain Scale: 0-10 Numeric [Pain] -Is Patient Pain Free? Yes Musculoskeletal: No Tenderness to Palpation of Joints or Extremities, Muscle Wasting Neurological: - - Lack of normal epicritic sensation light touch consistent with neuropathy status Psych/Mental Status: Normal Affect, Appropriate Debridement Note Post-Debridement Measurements/Treatment WC - Nurse 2 - General Ulcer CM Notes Start: 05/14/19 13:42 Freq: Status: Active Protocol: Activity Type Activity Date Activity User E-Sign Co-Sign Detail Recorded Client Recorded Date Recorded By Document 05/14/19 14:30 [id number] 05/14/19 14:33 Document 05/21/19 14:47 [id number] 05/21/19 14:50 05/14/19 05/21/19 14:30 14:47 Wound Center Nurse 2 #34- R LEG POSTERIOR -Time 14:48 -Correct Patient Yes -Correct Side, Site, Position Yes -Correct Procedure Yes -Procedure Performed Yes -Type of Procedure Debridement -Clinical Debridement Subcutaneous -Post Debridement Size (cm) - Length 1.8 -Post Debridement Size (cm) - Width 2.1 -Post Debridement Size (cm) - Depth 0.1 -Total Square Cm 3.78 -Wound/Ulcer Outcome Not Healed -Ulcer Cleansing Rinsed/ Irrigated with Saline -Foul Odor after Cleansing No -Bioengineered Tissue No -Bleeding Controlled with Pressure -Offloading No -Treatment Response Procedure Tolerated Well #33- R REHMAN CLUSTER -Time 14:31 -Correct Patient Yes No -Correct Side, Site, Position Yes No -Correct Procedure Yes No -Procedure Performed Yes No -Type of Procedure Debridement -Clinical Debridement Subcutaneous -Post Debridement Size (cm) - Length 0.8 0 -Post Debridement Size (cm) - Width 0.6 0 -Post Debridement Size (cm) - Depth 0.1 0 -Total Square Cm 0.48 0 -Wound/Ulcer Outcome Not Healed Healed- Epithelialized -Ulcer Cleansing Rinsed/ Irrigated with Saline -Foul Odor after Cleansing No -Bioengineered Tissue No -Bleeding Controlled with Pressure -Offloading No -Treatment Response Procedure Tolerated Well #32- R MED ANKLE -Time 14: 14:48 -Correct Patient Yes Yes -Correct Side, Site, Position Yes Yes -Correct Procedure Yes Yes -Procedure Performed Yes Yes -Type of Procedure Debridement Debridement -Clinical Debridement Subcutaneous Subcutaneous -Post Debridement Size (cm) - Length 1.2 1.5 -Post Debridement Size (cm) - Width 1.6 0.4 -Post Debridement Size (cm) - Depth 0.2 0.1 -Total Square Cm 1.92 0.60 -Wound/Ulcer Outcome Not Healed Not Healed -Ulcer Cleansing Rinsed/ Rinsed/ Irrigated with Irrigated with Saline Saline -Foul Odor after Cleansing No No -Bioengineered Tissue No No -Bleeding Controlled with Pressure Pressure -Offloading No No -Treatment Response Procedure Procedure Tolerated Well Tolerated Well #31- R 2ND TOE -Time 14: 14:49 -Correct Patient Yes Yes -Correct Side, Site, Position Yes Yes -Correct Procedure Yes Yes -Procedure Performed Yes Yes -Type of Procedure Debridement Debridement -Clinical Debridement Subcutaneous Subcutaneous -Post Debridement Size (cm) - Length 0.8 1.2 -Post Debridement Size (cm) - Width 1.3 0.9 -Post Debridement Size (cm) - Depth 0.1 0.1 -Total Square Cm 1.04 1.08 -Wound/Ulcer Outcome Not Healed Not Healed -Ulcer Cleansing Rinsed/ Rinsed/ Irrigated with Irrigated with Saline Saline -Foul Odor after Cleansing No No -Bioengineered Tissue No No -Bleeding Controlled with Pressure Pressure -Offloading Yes No -Type of Offloading Surgical Shoe -Treatment Response Procedure Procedure Tolerated Well Tolerated Well #29 right 3rd toe -Correct Patient No -Correct Side, Site, Position No -Correct Procedure No -Procedure Performed No -Post Debridement Size (cm) - Length 0 -Post Debridement Size (cm) - Width 0 -Post Debridement Size (cm) - Depth 0 -Total Square Cm 0 -Wound/Ulcer Outcome Healed- Epithelialized #28 right medial lower leg -Correct Patient No -Correct Side, Site, Position No -Correct Procedure No -Procedure Performed No -Post Debridement Size (cm) - Length 0 -Post Debridement Size (cm) - Width 0 -Post Debridement Size (cm) - Depth 0 -Total Square Cm 0 -Wound/Ulcer Outcome Healed- Epithelialized Pain Scale: 0-10 Numeric Is Patient Pain Free? Yes Yes Wound debrided: posterior lateral leg, medial ankle, dorsal 2nd toe Laterality: Right - g Wound Grade/Stage: grade 1 Type of Debridement: Excisional debridement Anesthesia Used: 5% Lidocaine Gel Depth: in the subcutaneous layer, to muscle Instrument Used: #15 blade Tissue Removed: fibrous, devitalized subcutaneous, biofilm, slough Severity: Fat Layer Exposed Amount of bleeding with debridement: Mild Bleeding Controlled with: Pressure Patient tolerated procedure well Assessment/Plan Active Problems (Last Reviewed 12/31/18 @ 09:10 by Alma Garcia) Bilateral leg edema (Chronic) Ulcer of right lower extremity with fat layer exposed (Chronic) Ulcer of right foot with fat layer exposed (Chronic) Type 2 diabetes mellitus with diabetic polyneuropathy (Chronic) Venous insufficiency (chronic) (peripheral) (Chronic) Assessment: Right second toe ulcer with fat layer exposed with no infection, hardy grade 1. Right leg ulcers with fat layer exposed (inferior and superior healed and now new to posterior lateral leg), no infection, hardy grade 1. Venous insufficiency and chronic lower extremity edema also complicated with congestive heart failure. peripheral vascular disease with recent intervention 2018. diabetes with neuropathy. malnutrition. non compliance history Plan: The patient was seen and examined at the wound center today and was updated on the plan of care. A subcutaneous debridement was performed today to the right foot (toe), ankle, and right leg. His new ulcer sites are noted and also has healed right anterior leg ulcer. To change dressing daily with Aquacel Ag. To continue Lac-Hydrin application to adjacent dry skin avoiding direct wound application. To keep pressure off the ulcer sites to optimize healing; he has surgical shoes. To wear compression Tubigrip garments. To elevate legs at rest to avoid idle standing or sitting. To continue with nutritional supplementation and proper glycemic control to optimize healing. He was reassured no local signs of infection are noted today. To monitor closely. 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 He had prior vascular surgery intervention with Dr. Redding. There are not any signs of critical limb ischemia at this time. Last noninvasive vascular studies were performed in November 2018 with thigh and monophasic waveforms at the ankle level, diminished ankle-brachial indices. This is consistent with moderate occlusive arterial vessel disease and also severe alteration of and angiosomal distribution particularly on the right lower extremity. To follow-up with Dr. Redding ; the nursing staff helped him schedule this for June [id number]. His updated venous Dopplers were also ordered it is noted that he had them done previously in 2017 and 2013 with some incompetent lower extremity veins. He plans to go over and schedule this in person this afternoon. His recent lab work from 04/11/2018 was reviewed with white blood cell count of 11.2 and hemoglobin A1c from 11/2018 of 9.5%. I recommend an updated right foot x-ray today and order was provided. Home health is recommended to aid in dressing care that he is unable to perform on his own. He has struggled with this aspect of his care which compromises his healing potential. This service is medically necessary. This is been set up. A 15 blade scalpel was also used to debride his left plantar foot callus without incident. There is no infection or ulcer noted. this patient will follow up at wound healing center in one week or sooner if needed. I answered all the questions.
== END 2019-06-10 23:59 ==
LOC: WC 16:15
PROVIDERS: Family Provider Family Medicine Geriatric Medicine; PCP Family Medicine Geriatric Medicine; Referring Provider Podiatrist; Visit Provider Podiatrist
DX: E11.621 Type 2 diabetes mellitus with foot ulcer (principal); E11.622 Type 2 diabetes mellitus with other skin ulcer; L97.512 Non-pressure chronic ulcer of other part of right foot with fat layer exposed; L97.812 Non-pressure chronic ulcer of other part of right lower leg with fat layer exposed; I50.9 Heart failure, unspecified; E11.51 Type 2 diabetes mellitus with diabetic peripheral angiopathy without gangrene; E11.42 Type 2 diabetes mellitus with diabetic polyneuropathy; Z91.19 Patient's noncompliance with other medical treatment and regimen; L84 Corns and callosities
CPT/HCPCS: 11042